=== PATIENT | female | born 1980 | race Caucasian/White ===

== ENCOUNTER 2020-02-09 20:27 | Inpatient (IN) | payer OTHER, MEDICAID, SELFPAY ==
[2020-02-09 21:07] VITALS: BMI 32.8
[2020-02-09] MEDS: LORazepam 1 MG TABLET PO (21:42)
[2020-02-10] VITALS (8 sets, daily range): BP systolic 101–114; BP diastolic 58–73; PULSE 66–107; RESP 17–18; TEMP 36–36.5; O2SAT 97; BMI 34.5
[2020-02-10] MEDS: lamoTRIgine 25 MG TABLET PO ×4 (00:23→22:35)
[2020-02-10] MEDS: lamoTRIgine 100 MG TABLET PO ×4 (00:23→22:33)
[2020-02-10] MEDS: Doxepin HCl 25 MG CAPSULE 50 MG PO ×2 (00:23→22:35)
[2020-02-10] MEDS: traZODone HCL 100 MG TABLET PO ×2 (00:24→22:34)
[2020-02-10] MEDS: Gabapentin 600 MG TABLET PO ×5 (00:24→22:33)
[2020-02-10] MEDS: Prazosin HCL 5 MG CAPSULE PO ×2 (00:25→22:36)
[2020-02-10] MEDS: ARIPiprazole 5 MG TABLET 10 MG PO ×2 (00:27→22:34)
[2020-02-10] MEDS: traMADoL HCL 50 MG TABLET PO ×3 (00:31→19:49)
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
--- NOTE | 2020-02-10 02:52 | PC.NURSE ---
patient is pleasant, calmer and cooperative on admission, remain on 5 min checks for safety.
[2020-02-10] MEDS: Sertraline HCL 100 MG TABLET 200 MG PO (08:34)
[2020-02-10] MEDS: LORazepam 1 MG TABLET PO ×5 (08:35→22:35)
[2020-02-10] MEDS: Milk of Magnesia 30 ML ORAL.SUSP PO (11:37)
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
--- NOTE | 2020-02-11 | US_ITS ---
EXAMINATION: US ABDOMEN LIMITED CLINICAL INFORMATION: Abdominal pain. COMPARISON: None TECHNIQUE: Real-time imaging of the right upper quadrant abdominal viscera. Exam is limited FINDINGS: PANCREAS: The pancreas could not be seen as it was obscured by bowel gas. LIVER: The liver demonstrates increased echogenicity consistent with hepatic steatosis and is probably mildly enlarged. Contour is normal. No focal lesion or intrahepatic biliary duct dilatation. GALLBLADDER: The gallbladder is physiologically distended without evidence of stones, sludge, polyps, wall thickening or pericholecystic fluid. COMMON BILE DUCT: Normal in caliber measuring 0.3 cm in diameter. RIGHT KIDNEY: No hydronephrosis. No renal calculi or focal parenchymal lesions. The kidney measures 10.0 cm in maximum dimension. FREE FLUID: None. IMPRESSION: Hepatic steatosis
[2020-02-11 06:20] VITALS: BP 96/65; PULSE 110; RESP 18; TEMP 36.2; O2SAT 98
[2020-02-11] MEDS: traMADoL HCL 50 MG TABLET PO ×2 (06:55→15:13)
[2020-02-11 08:26] LABS: MANUAL DIFF FLAG NO
[2020-02-11 08:36] LABS: Basophils Absolute Auto 0.1 X10*3/uL (0.0-0.2); Basophils Percent Auto 0.9 % (0-2); Eosinophils Absolute Auto 0.3 X10*3/uL (0.0-0.4); Eosinophils Percent Auto 4.9 % (0-4); Hematocrit 39.3 % (37-47); Hemoglobin 12.7 g/dl (12.0-16.0); Imm Gran Abs Auto 0.05 X10*3/uL (0.00-0.03); Imm Gran Pct Auto 0.9 % (0.0-0.4); Lymphocytes Absolute Auto 2.1 X10*3/uL (1.2-4.9); Lymphocytes Percent Auto 36.5 % (20-40); Mean Corpuscular HGB Conc 32.3 g/dl (31.0-35.0); Mean Corpuscular Volume 92.7 fL (80-98); Mean Platelet Volume 9.4 fL (9.4-12.3); Monocytes Absolute Auto 0.8 X10*3/uL (0.1-1.2); Monocytes Percent Auto 12.9 % (2-11); Neutrophils Absolute Auto 2.6 X10*3/uL (2.0-8.3); Neutrophils Percent Auto 43.9 % (45-73); Platelet Count 185 X10*3/uL (160-400); Red Blood Count 4.24 X10*6/uL (4.20-5.50); Red Cell Distribution Width 13.3 % (11.0-16.0); White Blood Count 5.9 X10*3/uL (4.8-10.8)
[2020-02-11] MEDS: Gabapentin 600 MG TABLET PO ×4 (09:00→21:12)
[2020-02-11] MEDS: Sertraline HCL 100 MG TABLET PO (09:01)
[2020-02-11] MEDS: LORazepam 1 MG TABLET PO ×3 (09:01→21:11)
[2020-02-11] MEDS: DULoxetine HCl 20 MG CAPSULE.DR PO (09:01)
[2020-02-11] MEDS: lamoTRIgine 100 MG TABLET PO ×2 (09:02→21:12)
[2020-02-11 09:07] LABS: Alanine Aminotransferase 58 U/L (0-31); Albumin Level 4.2 g/dL (3.5-5.0); Alkaline Phosphatase 52 U/L (39-117); Anion Gap 14 (12-20); Aspartate Amino Transferase 67 U/L (5-31); Bilirubin Total 0.6 mg/dL (0.0-1.0); Blood Urea Nitrogen 15 mg/dL (9-16); Calcium 9.2 mg/dL (8.4-10.2); Carbon Dioxide 29 mmol/L (22-29); Chloride 100 mmol/L (96-108); Cholesterol 265 mg/dL; Creatinine Clr Calc Pharmacy 76.4; Estimated Glomerular Filt Rate 57; Glucose Fasting 105 mg/dL (60-99); HDL Cholesterol 56 mg/dL; LDL Cholesterol Calculated 155 mg/dl; Potassium 4.5 mmol/l (3.3-5.1); Sodium 138 mmol/L (135-145); Total Protein 6.9 g/dL (6.5-8.0); Triglycerides 270 mg/dL
--- NOTE | 2020-02-11 09:34 | HO.PSYCHPN ---
Assessment & Plan Greater than 50% of the session was spent on counseling and/or coordination of care continue transition to Cymbalta. Encourage group activity min physical activity and socialization. cabinet worker to coordinate care with outside providers Patient educated on: diagnosis Informed Consent: understands Subjective Subjective Date of Service: 02/11/20 Reason For Visit: UNSPECIFIED BIPOLAR DISORDER Subjective Notes: Conditional Voluntary Interim History: patient spending a lot of time in bed complains of back pain. Patient is isolating and appears depressed. Feels safe on the unit. We discussed medication changes and transition to a different medication which he is excited about as it will help with pain namely Cymbalta. Patient reluctant to consider residential treatment program but encouraged to attend AA in reconnect with her preparer samples and repairs Medication Compliance: Yes Side effects from medications: No Attending Groups: Yes Mental Status Exam Mental Status Exam Patient Appearance: Well Grooomed Patient Orientation: Person, Place, Time and Situation Level of Consciousness: Awake Patient Behavior: Appropriate and Good Eye Contact Mood Description: Depressed and Sad Affect Description: Calm, Depressed and Sad Patient Cognition Impaired: No Ability to Follow Directions: Excellent Speech Pattern: Clear, Monotone and Whisper Memory Description: Intact Hallucinations: None Delusions: Not Present Thought Process: Intact Thought Content: positive for Intact Depressive Symptoms: Increased Anxiety, Crying Spells, Feelings of Worthlessness, Hopelessness, Thoughts of /Suicide ( denies/ feels safe on the unit), Low Self Esteem and Loss of Energy Judgement: Fair Diagnostics Vital Signs (24Hr): Vital Signs - 24 hr 02/10/20 12:00 02/10/20 16:00 02/10/20 21:40 Temperature 97.7 F Pulse Rate 92 83 66 Respiratory Rate 17 Blood Pressure 110/72 114/70 110/58 L Pulse Oximetry 02/10/20 22:36 02/11/20 06:20 Temperature 97.1 F Pulse Rate 66 110 H Respiratory Rate 18 Blood Pressure 110/58 L 96/65 Pulse Oximetry 98 Body Mass Index 34.5 Labs Results: 02/11/20 08:00 02/11/20 08:00 Labs: Laboratory Results - last 48 hr 02/11/20 02/11/20 08:00 08:00 WBC 5.9 RBC 4.24 Hgb 12.7 Hct 39.3 MCV 92.7 MCH 30.0 MCHC 32.3 RDW 13.3 Plt Count 185 MPV 9.4 Immature Gran % (Auto) 0.9 H Neut % (Auto) 43.9 L Lymph % (Auto) 36.5 [place] % (Auto) 12.9 H Eos % (Auto) 4.9 H Baso % (Auto) 0.9 Neut # (Auto) 2.6 Lymph # (Auto) 2.1 [place] # (Auto) 0.8 Eos # (Auto) 0.3 Baso # (Auto) 0.1 Abs Immat Gran (auto) 0.05 H Absolute Nucleated RBC 0.000 Nucleated RBC % (auto) 0.0 Sodium 138 Potassium 4.5 Chloride 100 Carbon Dioxide 29 Anion Gap 14 BUN 15 Creatinine 1.06 Estim Creat Clear Calc 76.4 Estimated GFR 57 Fasting Glucose 105 H Calcium 9.2 Total Bilirubin 0.6 AST 67 H ALT 58 H Alkaline Phosphatase 52 Total Protein 6.9 Albumin 4.2 Triglycerides 270 Cholesterol 265 LDL Cholesterol, Calc 155 HDL Cholesterol 56 Medications Medications Current Medications Generic Name Dose Route Start Last Admin Trade Name Freq PRN Reason Stop Dose Admin Al Hydroxide/Mg Hydroxide 30 ml 02/09/20 21:11 Magnesium Hydrox/Alum Hydrox 30 Ml Oral.Susp PO Q6H PRN Heartburn/Nausea Aripiprazole 10 mg 02/09/20 21:00 02/10/20 22:34 Aripiprazole 5 Mg Tablet PO 10 mg BEDTIME ELIZABETH Administration Doxepin HCl 50 mg 02/09/20 21:00 02/10/20 22:35 Doxepin Hcl 25 Mg Capsule PO 50 mg BEDTIME ELIZABETH Administration Duloxetine HCl 20 mg 02/11/20 09:00 02/11/20 09:01 Duloxetine Hcl 20 Mg Capsule.Dr PO 20 mg DAILY ELIZABETH Administration Gabapentin 600 mg 02/09/20 09:00 02/11/20 09:00 Gabapentin 600 Mg Tablet PO 600 mg QID ELIZABETH Administration Hydroxyzine HCl 25 mg 02/09/20 21:11 Hydroxyzine Hcl 25 Mg Tablet PO BEDTIME PRN Anxiety Lamotrigine 25 mg 02/10/20 09:00 02/10/20 22:35 Lamotrigine 25 Mg Tablet PO 25 mg BID ELIZABETH Administration Lamotrigine 100 mg 02/10/20 21:00 02/11/20 09:02 Lamotrigine 100 Mg Tablet PO 100 mg BID ELIZABETH Administration Lorazepam 1 mg 02/09/20 21:30 02/11/20 09:01 Lorazepam 1 Mg Tablet PO 1 mg TID ELIZABETH Administration Lorazepam 1 mg 02/09/20 22:57 02/10/20 17:11 Lorazepam 1 Mg Tablet PO 1 mg Q4H PRN Administration Alcohol Withdrawal Magnesium Hydroxide 30 ml 02/09/20 21:11 02/10/20 11:37 Milk Of Magnesia 30 Ml Oral.Susp PO 30 ml DAILY PRN Administration Constipation Nicotine Polacrilex 2 mg 02/09/20 23:18 Nicotine Polacrilex 2 Mg Lozenge BUCCAL Q1H PRN Nicotine Cravings Nf Med (Creon 12,000 0 units 02/10/20 16:30 02/11/20 08:59 Capsule) PO 2 units TIDAC ELIZABETH Administration Prazosin HCl 5 mg 02/09/20 23:15 02/10/20 22:36 Prazosin Hcl 5 Mg Capsule PO 5 mg BEDTIME ELIZABETH Administration Protocol Sertraline HCl 100 mg 02/11/20 09:00 02/11/20 09:01 Sertraline Hcl 100 Mg Tablet PO 100 mg DAILY ELIZABETH Administration Tramadol HCl 50 mg 02/10/20 00:15 02/11/20 06:55 Tramadol Hcl 50 Mg Tablet PO 50 mg Q8H PRN Administration Pain, Severe (Pain Scale 7-10) Trazodone HCl 100 mg 02/09/20 21:00 02/10/20 22:34 Trazodone Hcl 100 Mg Tablet PO 100 mg BEDTIME ELIZABETH Administration Allergies Allergies Allergy/AdvReac Type Severity Reaction Status Date / Time acetaminophen Allergy Rash Verified 02/09/20 21:06 bees Allergy Severe Anaphylaxis Uncoded 02/09/20 21:06
[2020-02-11] MEDS: lamoTRIgine 25 MG TABLET PO ×2 (09:56→21:11)
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
[2020-02-11] MEDS: Lidocaine 4 % Patch ADH..PATCH 2 PATCH TRANSDERMA (12:10)
[2020-02-11 12:33] LABS: UPreg QC Valid YES; Urine Pregnancy NEGATIVE (NEGATIVE)
[2020-02-11 15:16] VITALS: BP 111/64; PULSE 94
[2020-02-11 16:00] VITALS: BP 118/70; PULSE 87; TEMP 36.5
[2020-02-11 20:00] VITALS: BP 111/58; PULSE 83; TEMP 36.7
[2020-02-11] MEDS: traZODone HCL 100 MG TABLET PO (21:11)
[2020-02-11] MEDS: Doxepin HCl 25 MG CAPSULE 50 MG PO (21:11)
[2020-02-11] MEDS: ARIPiprazole 5 MG TABLET 10 MG PO (21:11)
[2020-02-11 21:18] VITALS: BP 118/70; PULSE 87
[2020-02-11] MEDS: Prazosin HCL 5 MG CAPSULE PO (21:18)
[2020-02-12] VITALS: BP 114/66; PULSE 91; RESP 16; TEMP 36.1
[2020-02-12] MEDS: LORazepam 1 MG TABLET PO ×4 (02:10→18:10)
[2020-02-12] MEDS: traMADoL HCL 50 MG TABLET PO ×2 (02:10→17:06)
[2020-02-12] MEDS: hydrOXYzine HCL 25 MG TABLET PO (02:10)
[2020-02-12 05:40] VITALS: BP 100/63; PULSE 105; RESP 18; TEMP 36.3; O2SAT 99
[2020-02-12] MEDS: Gabapentin 600 MG TABLET PO ×2 (08:37→12:15)
[2020-02-12] MEDS: lamoTRIgine 100 MG TABLET PO (08:37)
[2020-02-12] MEDS: Sertraline HCL 100 MG TABLET PO (08:37)
[2020-02-12] MEDS: DULoxetine HCl 20 MG CAPSULE.DR PO (08:37)
[2020-02-12] MEDS: lamoTRIgine 25 MG TABLET PO (08:37)
--- NOTE | 2020-02-12 09:31 | P.PNPSI_ITS ---
Assessment & Plan Greater than 50% of the session was spent on counseling and/or coordination of care check pancreatic and liver profile continue medication changes and transition to Cyalta patient encouraged to consider IOP or partial hospitalization program at [facility] Patient educated on: diagnosis Informed Consent: understands Subjective Subjective Date of Service: 02/12/20 Reason For Visit: UNSPECIFIED BIPOLAR DISORDER Subjective Notes: Conditional Voluntary Interim History: Remains significantly depressed states that she has intrusive thoughts of hanging herself like her father but feels safe on the unit patient attending group remains anxious complaining of pain. States she bottles up her thoughts and sometimes has pseudo hallucinations. We discussed simplifying polypharmacy. Patient has mild epigastric discomfort. Will check LFTs and lipase amylase Medication Compliance: Yes Side effects from medications: No Attending Groups: Yes Mental Status Exam Mental Status Exam Patient Appearance: Well Grooomed Patient Orientation: Person, Place, Time and Situation Level of Consciousness: Awake Patient Behavior: Appropriate Mood Description: Calm, Depressed and Sad Affect Description: Calm, Depressed and Sad Patient Cognition Impaired: No Ability to Follow Directions: Excellent Speech Pattern: Clear Memory Description: Intact Hallucinations: Auditory ( pseudo hallucinations noted) Delusions: Not Present Thought Process: Distracted and Slowed Thinking Thought Content: positive for Poverty of Content and positive for Preoccupation Depressive Symptoms: Feelings of Worthlessness, Hopelessness, Unhappiness, Thoughts of /Suicide and Difficulty Concentrating Judgement: Fair Diagnostics Vital Signs (24Hr): Vital Signs - 24 hr 02/11/20 15:16 02/11/20 16:00 02/11/20 20:00 Temperature 97.7 F 98.1 F Pulse Rate 94 87 83 Respiratory Rate Blood Pressure 111/64 118/70 111/58 L Pulse Oximetry 02/11/20 21:18 02/12/20 00:00 02/12/20 05:40 Temperature 96.9 F 97.4 F Pulse Rate 87 91 105 H Respiratory Rate 16 18 Blood Pressure 118/70 114/66 100/63 Pulse Oximetry 99 Body Mass Index 34.5 Labs Results: 02/11/20 08:00 02/11/20 08:00 Labs: Laboratory Results - last 48 hr 02/11/20 02/11/20 02/11/20 08:00 08:00 12:01 WBC 5.9 RBC 4.24 Hgb 12.7 Hct 39.3 MCV 92.7 MCH 30.0 MCHC 32.3 RDW 13.3 Plt Count 185 MPV 9.4 Immature Gran % (Auto) 0.9 H Neut % (Auto) 43.9 L Lymph % (Auto) 36.5 [place] % (Auto) 12.9 H Eos % (Auto) 4.9 H Baso % (Auto) 0.9 Neut # (Auto) 2.6 Lymph # (Auto) 2.1 [place] # (Auto) 0.8 Eos # (Auto) 0.3 Baso # (Auto) 0.1 Abs Immat Gran (auto) 0.05 H Absolute Nucleated RBC 0.000 Nucleated RBC % (auto) 0.0 Sodium 138 Potassium 4.5 Chloride 100 Carbon Dioxide 29 Anion Gap 14 BUN 15 Creatinine 1.06 Estim Creat Clear Calc 76.4 Estimated GFR 57 Fasting Glucose 105 H Calcium 9.2 Total Bilirubin 0.6 AST 67 H ALT 58 H Alkaline Phosphatase 52 Total Protein 6.9 Albumin 4.2 Triglycerides 270 Cholesterol 265 LDL Cholesterol, Calc 155 HDL Cholesterol 56 Urine Test NEGATIVE Medications Medications Current Medications Generic Name Dose Route Start Last Admin Trade Name Freq PRN Reason Stop Dose Admin Al Hydroxide/Mg Hydroxide 30 ml 02/09/20 21:11 Magnesium Hydrox/Alum Hydrox 30 Ml Oral.Susp PO Q6H PRN Heartburn/Nausea Aripiprazole 10 mg 02/09/20 21:00 02/11/20 21:11 Aripiprazole 5 Mg Tablet PO 10 mg BEDTIME ELIZABETH Administration Doxepin HCl 50 mg 02/09/20 21:00 02/11/20 21:11 Doxepin Hcl 25 Mg Capsule PO 50 mg BEDTIME ELIZABETH Administration Duloxetine HCl 20 mg 02/11/20 09:00 02/12/20 08:37 Duloxetine Hcl 20 Mg Capsule.Dr PO 20 mg DAILY ELIZABETH Administration Gabapentin 600 mg 02/09/20 09:00 02/12/20 08:37 Gabapentin 600 Mg Tablet PO 600 mg QID ELIZABETH Administration Hydroxyzine HCl 25 mg 02/09/20 21:11 02/12/20 02:10 Hydroxyzine Hcl 25 Mg Tablet PO 25 mg BEDTIME PRN Administration Anxiety Lamotrigine 25 mg 02/10/20 09:00 02/12/20 08:37 Lamotrigine 25 Mg Tablet PO 25 mg BID ELIZABETH Administration Lamotrigine 100 mg 02/10/20 21:00 02/12/20 08:37 Lamotrigine 100 Mg Tablet PO 100 mg BID ELIZABETH Administration Lidocaine 2 patch 02/11/20 11:15 02/11/20 12:10 Lidocaine 4 % Patch Adh..Patch TRANSDERMA 2 patch DAILY ELIZABETH Administration Protocol Lorazepam 1 mg 02/09/20 21:30 02/12/20 08:36 Lorazepam 1 Mg Tablet PO 1 mg TID ELIZABETH Administration Lorazepam 1 mg 02/09/20 22:57 02/12/20 02:10 Lorazepam 1 Mg Tablet PO 1 mg Q4H PRN Administration Alcohol Withdrawal Magnesium Hydroxide 30 ml 02/09/20 21:11 02/10/20 11:37 Milk Of Magnesia 30 Ml Oral.Susp PO 30 ml DAILY PRN Administration Constipation Nicotine Polacrilex 2 mg 02/09/20 23:18 Nicotine Polacrilex 2 Mg Lozenge BUCCAL Q1H PRN Nicotine Cravings Nf Med (Creon 12,000 0 units 02/10/20 16:30 02/12/20 08:36 Capsule) PO 2 units TIDAC ELIZABETH Administration Pt Own Pantoprazole 0 each 02/12/20 09:00 02/12/20 08:38 40 Mg PO 1 each DAILY ELIZAEBTH Administration Prazosin HCl 5 mg 02/09/20 23:15 02/11/20 21:18 Prazosin Hcl 5 Mg Capsule PO 5 mg BEDTIME ELIZABETH Administration Protocol Sertraline HCl 100 mg 02/11/20 09:00 02/12/20 08:37 Sertraline Hcl 100 Mg Tablet PO 100 mg DAILY [facility]ETH Administration Tramadol HCl 50 mg 02/10/20 00:15 02/12/20 02:10 Tramadol Hcl 50 Mg Tablet PO 50 mg Q8H PRN Administration Pain, Severe (Pain Scale 7-10) Trazodone HCl 100 mg 02/09/20 21:00 02/11/20 21:11 Trazodone Hcl 100 Mg Tablet PO 100 mg BEDTIME EL[facility]ETH Administration Allergies Allergies Allergy/AdvReac Type Severity Reaction Status Date / Time acetaminophen Allergy Rash Verified 02/09/20 21:06 bees Allergy Severe Anaphylaxis Uncoded 02/09/20 21:06
[2020-02-12] MEDS: Lidocaine 4 % Patch ADH..PATCH 2 PATCH TRANSDERMA (10:00)
[2020-02-12 12:00] VITALS: BP 117/71; PULSE 84; RESP 16; TEMP 36.6
[2020-02-12 12:20] LABS: Alanine Aminotransferase 66 U/L (0-31); Albumin Level 4.2 g/dL (3.5-5.0); Alkaline Phosphatase 47 U/L (39-117); Amylase 15 U/L (28-100); Aspartate Amino Transferase 76 U/L (5-31); Bilirubin Direct 0.2 mg/dL (0.0-0.5); Bilirubin Total 0.4 mg/dL (0.0-1.0); Lipase 5 U/L (8-78); Total Protein 6.7 g/dL (6.5-8.0)
[2020-02-12] MEDS: Gabapentin 400 MG CAPSULE 800 MG PO (18:19)
[2020-02-12 18:20] VITALS: BP 106/75; PULSE 93; TEMP 36.7
[2020-02-12] MEDS: lamoTRIgine 100 MG TABLET 150 MG PO (20:16)
[2020-02-12] MEDS: traZODone HCL 100 MG TABLET PO (20:17)
[2020-02-12] MEDS: ARIPiprazole 5 MG TABLET 10 MG PO (20:17)
[2020-02-12] MEDS: Doxepin HCl 25 MG CAPSULE 50 MG PO (20:18)
[2020-02-12 20:19] VITALS: BP 113/61; PULSE 83
[2020-02-12] MEDS: Prazosin HCL 5 MG CAPSULE PO (20:19)
[2020-02-12] MEDS: Flu Vacc QS2020-21(6mos up)/PF 0.5 ML SYRINGE IM (20:20)
[2020-02-13 05:00] VITALS: BP 112/61; PULSE 115; RESP 18; TEMP 36.1; O2SAT 97
[2020-02-13] MEDS: LORazepam 1 MG TABLET PO ×5 (05:09→22:02)
[2020-02-13 07:00] VITALS: BMI 35.2
--- NOTE | 2020-02-13 07:11 | P.PNPSI_ITS ---
Subjective Subjective Reason For Visit: UNSPECIFIED BIPOLAR DISORDER Diagnostics Vital Signs (24Hr): Vital Signs - 24 hr 02/12/20 12:00 02/12/20 18:20 02/12/20 20:19 Temperature 97.8 F 98.0 F Pulse Rate 84 93 83 Respiratory Rate 16 Blood Pressure 117/71 106/75 113/61 Body Mass Index 34.5 Labs Results: 02/11/20 08:00 02/11/20 08:00 Labs: Laboratory Results - last 48 hr 02/11/20 02/11/20 02/11/20 08:00 08:00 12:01 WBC 5.9 RBC 4.24 Hgb 12.7 Hct 39.3 MCV 92.7 MCH 30.0 MCHC 32.3 RDW 13.3 Plt Count 185 MPV 9.4 Immature Gran % (Auto) 0.9 H Neut % (Auto) 43.9 L Lymph % (Auto) 36.5 [place] % (Auto) 12.9 H Eos % (Auto) 4.9 H Baso % (Auto) 0.9 Neut # (Auto) 2.6 Lymph # (Auto) 2.1 [place] # (Auto) 0.8 Eos # (Auto) 0.3 Baso # (Auto) 0.1 Abs Immat Gran (auto) 0.05 H Absolute Nucleated RBC 0.000 Nucleated RBC % (auto) 0.0 Sodium 138 Potassium 4.5 Chloride 100 Carbon Dioxide 29 Anion Gap 14 BUN 15 Creatinine 1.06 Estim Creat Clear Calc 76.4 Estimated GFR 57 Fasting Glucose 105 H Calcium 9.2 Total Bilirubin 0.6 Direct Bilirubin AST 67 H ALT 58 H Alkaline Phosphatase 52 Total Protein 6.9 Albumin 4.2 Triglycerides 270 Cholesterol 265 LDL Cholesterol, Calc 155 HDL Cholesterol 56 Amylase Lipase Urine Test NEGATIVE 02/12/20 11:21 WBC RBC Hgb Hct MCV MCH MCHC RDW Plt Count MPV Immature Gran % (Auto) Neut % (Auto) Lymph % (Auto) [place] % (Auto) Eos % (Auto) Baso % (Auto) Neut # (Auto) Lymph # (Auto) [place] # (Auto) Eos # (Auto) Baso # (Auto) Abs Immat Gran (auto) Absolute Nucleated RBC Nucleated RBC % (auto) Sodium Potassium Chloride Carbon Dioxide Anion Gap BUN Creatinine Estim Creat Clear Calc Estimated GFR Fasting Glucose Calcium Total Bilirubin 0.4 Direct Bilirubin 0.2 AST 76 H ALT 66 H Alkaline Phosphatase 47 Total Protein 6.7 Albumin 4.2 Triglycerides Cholesterol LDL Cholesterol, Calc HDL Cholesterol Amylase 15 L Lipase 5 L Urine Test Medications Medications Current Medications Generic Name Dose Route Start Last Admin Trade Name Freq PRN Reason Stop Dose Admin Al Hydroxide/Mg Hydroxide 30 ml 02/09/20 21:11 Magnesium Hydrox/Alum Hydrox 30 Ml Oral.Susp PO Q6H PRN Heartburn/Nausea Aripiprazole 10 mg 02/09/20 21:00 02/12/20 20:17 Aripiprazole 5 Mg Tablet PO 10 mg BEDTIME ELIZABETH Administration Doxepin HCl 50 mg 02/09/20 21:00 02/12/20 20:18 Doxepin Hcl 25 Mg Capsule PO 50 mg BEDTIME ELIZABETH Administration Duloxetine HCl 20 mg 02/11/20 09:00 02/12/20 08:37 Duloxetine Hcl 20 Mg Capsule.Dr PO 20 mg DAILY ELIZABETH Administration Gabapentin 800 mg 02/12/20 21:00 02/12/20 23:16 Gabapentin 400 Mg Capsule PO Not Given TID ELIZABETH Hydroxyzine HCl 25 mg 02/09/20 21:11 02/12/20 02:10 Hydroxyzine Hcl 25 Mg Tablet PO 25 mg BEDTIME PRN Administration Anxiety Lamotrigine 150 mg 02/12/20 21:00 02/12/20 20:16 Lamotrigine 100 Mg Tablet PO 150 mg BID ELIZABETH Administration Lidocaine 2 patch 02/11/20 11:15 02/12/20 10:00 Lidocaine 4 % Patch Adh..Patch TRANSDERMA 2 patch DAILY ELIZABETH Administration Protocol Lorazepam 1 mg 02/09/20 22:57 02/13/20 05:09 Lorazepam 1 Mg Tablet PO 1 mg Q4H PRN Administration Alcohol Withdrawal Lorazepam 1 mg 02/12/20 21:00 02/12/20 23:18 Lorazepam 1 Mg Tablet PO Not Given TID ELIZABETH Magnesium Hydroxide 30 ml 02/09/20 21:11 02/10/20 11:37 Milk Of Magnesia 30 Ml Oral.Susp PO 30 ml DAILY PRN Administration Constipation Nicotine Polacrilex 2 mg 02/09/20 23:18 Nicotine Polacrilex 2 Mg Lozenge BUCCAL Q1H PRN Nicotine Cravings Pt Own Pantoprazole 0 each 02/12/20 09:00 02/12/20 08:38 40 Mg PO 1 each DAILY ELIZABETH Administration Non-Formulary Medication 12,000 unit 02/13/20 08:00 Creon PO BID@0800,1700 ELIZABETH Prazosin HCl 5 mg 02/09/20 23:15 02/12/20 20:19 Prazosin Hcl 5 Mg Capsule PO 5 mg BEDTIME ELIZABETH Administration Protocol Sertraline HCl 100 mg 02/11/20 09:00 02/12/20 08:37 Sertraline Hcl 100 Mg Tablet PO 100 mg DAILY EL[facility]ABETH Administration Tramadol HCl 50 mg 02/12/20 16:36 02/12/20 17:06 Tramadol Hcl 50 Mg Tablet PO 50 mg TID PRN Administration Pain, Severe (Pain Scale 7-10) Trazodone HCl 100 mg 02/09/20 21:00 02/12/20 20:17 Trazodone Hcl 100 Mg Tablet PO 100 mg BEDTIME ELIZABETH Administration Allergies Allergies Allergy/AdvReac Type Severity Reaction Status Date / Time acetaminophen Allergy Rash Verified 02/09/20 21:06 bees Allergy Severe Anaphylaxis Uncoded 02/09/20 21:06 Assessment & Plan Greater than 50% of the session was spent on counseling and/or coordination of care
[2020-02-13] MEDS: Gabapentin 400 MG CAPSULE 800 MG PO ×2 (08:50→16:36)
[2020-02-13] MEDS: Sertraline HCL 100 MG TABLET PO (08:51)
[2020-02-13] MEDS: traMADoL HCL 50 MG TABLET PO ×3 (09:51→22:05)
[2020-02-13] MEDS: Lidocaine 4 % Patch ADH..PATCH 2 PATCH TRANSDERMA (09:56)
[2020-02-13] MEDS: lamoTRIgine 100 MG TABLET 150 MG PO ×2 (09:56→20:41)
[2020-02-13] MEDS: DULoxetine HCl 20 MG CAPSULE.DR PO (09:56)
[2020-02-13 13:42] VITALS: BP 103/60; PULSE 64; RESP 16; TEMP 37; O2SAT 97
[2020-02-13 14:07] VITALS: BP 157/87; PULSE 91; RESP 16
[2020-02-13 16:59] VITALS: BP 117/74; PULSE 91; TEMP 36.6
--- NOTE | 2020-02-13 17:19 | HO.PSYCHPN ---
Subjective Subjective Reason For Visit: UNSPECIFIED BIPOLAR DISORDER Interim History: Remains significantly depressed states that she has intrusive thoughts of hanging herself like her father but feels safe on the unit patient attending group remains anxious. Attending group. Continues with epigastic pain. Fatty liver noted on US. Counseled re ETOH use. Keen on AA. Encouraged to consider IOP We discussed simplifying polypharmacy. Mental Status Exam Mental Status Exam Patient Appearance: Well Grooomed Patient Orientation: Person, Place, Time and Situation Level of Consciousness: Awake Patient Behavior: Appropriate Mood Description: Calm, Depressed and Sad Affect Description: Calm, Depressed and Sad Patient Cognition Impaired: No Ability to Follow Directions: Excellent Speech Pattern: Clear Memory Description: Intact Diagnostics Vital Signs (24Hr): Vital Signs - 24 hr 02/12/20 18:20 02/12/20 20:19 02/13/20 05:00 Temperature 98.0 F 96.9 F Pulse Rate 93 83 115 H Respiratory Rate 18 Blood Pressure 106/75 113/61 112/61 Pulse Oximetry 97 02/13/20 13:42 02/13/20 14:07 02/13/20 16:59 Temperature 98.6 F 97.8 F Pulse Rate 64 91 91 Respiratory Rate 16 16 Blood Pressure 103/60 157/87 H 117/74 Pulse Oximetry 97 Body Mass Index 35.2 Labs Results: 02/11/20 08:00 02/11/20 08:00 Labs: Laboratory Results - last 48 hr 02/12/20 11:21 Total Bilirubin 0.4 Direct Bilirubin 0.2 AST 76 H ALT 66 H Alkaline Phosphatase 47 Total Protein 6.7 Albumin 4.2 Amylase 15 L Lipase 5 L Medications Medications Current Medications Generic Name Dose Route Start Last Admin Trade Name Freq PRN Reason Stop Dose Admin Al Hydroxide/Mg Hydroxide 30 ml 02/09/20 21:11 Magnesium Hydrox/Alum Hydrox 30 Ml Oral.Susp PO Q6H PRN Heartburn/Nausea Aripiprazole 10 mg 02/09/20 21:00 02/12/20 20:17 Aripiprazole 5 Mg Tablet PO 10 mg BEDTIME ELIZABETH Administration Doxepin HCl 50 mg 02/09/20 21:00 02/12/20 20:18 Doxepin Hcl 25 Mg Capsule PO 50 mg BEDTIME ELIZABETH Administration Duloxetine HCl 20 mg 02/11/20 09:00 02/13/20 09:56 Duloxetine Hcl 20 Mg Capsule.Dr PO 20 mg DAILY [facility]ABETH Administration Gabapentin 800 mg 02/13/20 16:30 02/13/20 16:36 Gabapentin 400 Mg Capsule PO 800 mg TIDAC ELIZABETH Administration Hydroxyzine HCl 25 mg 02/09/20 21:11 02/12/20 02:10 Hydroxyzine Hcl 25 Mg Tablet PO 25 mg BEDTIME PRN Administration Anxiety Lamotrigine 150 mg 02/12/20 21:00 02/13/20 09:56 Lamotrigine 100 Mg Tablet PO 150 mg BID EL[facility]ABETH Administration Lidocaine 2 patch 02/11/20 11:15 02/13/20 09:56 Lidocaine 4 % Patch Adh..Patch TRANSDERMA 2 patch DAILY ELIZABETH Administration Protocol Lorazepam 1 mg 02/09/20 22:57 02/13/20 12:33 Lorazepam 1 Mg Tablet PO 1 mg Q4H PRN Administration Alcohol Withdrawal Lorazepam 1 mg 02/13/20 16:30 02/13/20 16:36 Lorazepam 1 Mg Tablet PO 1 mg TIDAC ELIZABETH Administration Magnesium Hydroxide 30 ml 02/09/20 21:11 02/10/20 11:37 Milk Of Magnesia 30 Ml Oral.Susp PO 30 ml DAILY PRN Administration Constipation Nicotine Polacrilex 2 mg 02/09/20 23:18 Nicotine Polacrilex 2 Mg Lozenge BUCCAL Q1H PRN Nicotine Cravings Pt Own Pantoprazole 0 each 02/12/20 09:00 02/13/20 08:55 40 Mg PO 1 each DAILY ELIZABETH Administration Pt Own (Creon 12,000 2 each 02/13/20 16:30 02/13/20 16:36 Units) PO 2 each TIDAC ELIZABETH Administration Prazosin HCl 5 mg 02/09/20 23:15 02/12/20 20:19 Prazosin Hcl 5 Mg Capsule PO 5 mg BEDTIME ELIZABETH Administration Protocol Sertraline HCl 100 mg 02/11/20 09:00 02/13/20 08:51 Sertraline Hcl 100 Mg Tablet PO 100 mg DAILY ELIZABETH Administration Tramadol HCl 50 mg 02/13/20 16:30 02/13/20 16:36 Tramadol Hcl 50 Mg Tablet PO 50 mg TIDAC ELIZABETH Administration Trazodone HCl 100 mg 02/09/20 21:00 02/12/20 20:17 Trazodone Hcl 100 Mg Tablet PO 100 mg BEDTIME ELIZABETH Administration Allergies Allergies Allergy/AdvReac Type Severity Reaction Status Date / Time acetaminophen Allergy Rash Verified 02/09/20 21:06 bees Allergy Severe Anaphylaxis Uncoded 02/09/20 21:06 Assessment & Plan Assessment & Plan (1) Alcohol use disorder, severe, dependence: Status: Acute Code(s): F10.20 - Alcohol dependence, uncomplicated Assessment and Plan: monitor for signs of withdrawal. Continue gabapentin and lorazepam (2) PTSD (post-traumatic stress disorder): Status: Acute Code(s): F43.10 - Post-traumatic stress disorder, unspecified Assessment and Plan: continue praises in (3) Depression: Status: Acute Code(s): F32.9 - Major depressive disorder, single episode, unspecified Assessment and Plan: taper Zoloft ct Cymbalta as discussed with patient (4) Bipolar disorder: Status: Acute Code(s): F31.9 - Bipolar disorder, unspecified Assessment and Plan: continue mood stabilizers (5) Suicidal behavior: Status: Acute Code(s): R45.89 - Other symptoms and signs involving emotional state Assessment and Plan: support ventilation safety plan referral to outpatient treatment Greater than 50% of the session was spent on counseling and/or coordination of care
[2020-02-13] MEDS: traZODone HCL 100 MG TABLET PO (20:40)
[2020-02-13] MEDS: ARIPiprazole 5 MG TABLET 10 MG PO (20:40)
[2020-02-13 20:41] VITALS: BP 117/70; PULSE 86
[2020-02-13] MEDS: Doxepin HCl 25 MG CAPSULE 50 MG PO (20:41)
[2020-02-13] MEDS: Prazosin HCL 5 MG CAPSULE PO (20:41)
[2020-02-14 06:03] VITALS: BP 100/77; PULSE 107; RESP 18; TEMP 35.9; O2SAT 99
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
[2020-02-14] MEDS: DULoxetine HCl 20 MG CAPSULE.DR PO (08:22)
[2020-02-14] MEDS: Gabapentin 400 MG CAPSULE 800 MG PO ×3 (08:22→16:43)
[2020-02-14] MEDS: lamoTRIgine 100 MG TABLET 150 MG PO ×2 (08:23→20:14)
[2020-02-14] MEDS: Sertraline HCL 100 MG TABLET PO (08:23)
[2020-02-14] MEDS: LORazepam 1 MG TABLET PO ×4 (08:23→20:20)
[2020-02-14] MEDS: traMADoL HCL 50 MG TABLET PO ×3 (08:23→16:42)
[2020-02-14] MEDS: Lidocaine 4 % Patch ADH..PATCH 2 PATCH TRANSDERMA (08:26)
[2020-02-14] MEDS: Milk of Magnesia 30 ML ORAL.SUSP PO (13:42)
[2020-02-14 14:05] VITALS: BP 112/70; PULSE 93
[2020-02-14 16:53] VITALS: BP 124/80; PULSE 83; TEMP 36.3
[2020-02-14 19:11] VITALS: BP 110/55; PULSE 75; TEMP 36.4
[2020-02-14 20:12] VITALS: BP 110/55; PULSE 75
[2020-02-14] MEDS: Prazosin HCL 5 MG CAPSULE PO (20:12)
[2020-02-14] MEDS: ARIPiprazole 5 MG TABLET 10 MG PO (20:13)
[2020-02-14] MEDS: Doxepin HCl 25 MG CAPSULE 50 MG PO (20:14)
[2020-02-14] MEDS: traZODone HCL 100 MG TABLET PO (20:15)
[2020-02-15 06:33] VITALS: BP 105/66; PULSE 106; TEMP 36.5
[2020-02-15] MEDS: traMADoL HCL 50 MG TABLET PO ×3 (07:12→16:06)
[2020-02-15] MEDS: Gabapentin 400 MG CAPSULE 800 MG PO ×3 (07:13→16:06)
[2020-02-15] MEDS: LORazepam 1 MG TABLET PO ×3 (07:13→16:06)
[2020-02-15] MEDS: Sertraline HCL 100 MG TABLET PO (08:50)
[2020-02-15] MEDS: DULoxetine HCl 20 MG CAPSULE.DR PO (08:51)
[2020-02-15] MEDS: Lidocaine 4 % Patch ADH..PATCH 2 PATCH TRANSDERMA (08:51)
[2020-02-15] MEDS: lamoTRIgine 100 MG TABLET 150 MG PO ×2 (08:51→20:42)
[2020-02-15 13:17] VITALS: BP 105/66; PULSE 106
--- NOTE | 2020-02-15 19:38 | HO.PSYCHPN ---
Subjective Subjective Date of Service: 02/15/20 Reason For Visit: UNSPECIFIED BIPOLAR DISORDER Subjective Notes: Conditional Voluntary Interim History: Depressed but still improving. Denies cravings. Looking forward to [place] Medication Compliance: Yes Side effects from medications: No Attending Groups: Yes Review of Systems Acute medical concerns: No Medical Review of Systems: unchanged Mental Status Exam Mental Status Exam Patient Appearance: Well Grooomed Patient Orientation: Person, Place, Time and Situation Level of Consciousness: Awake Patient Behavior: Appropriate Mood Description: Calm, Depressed and Sad Affect Description: Calm, Depressed and Sad Patient Cognition Impaired: No Ability to Follow Directions: Excellent Speech Pattern: Clear Memory Description: Intact Hallucinations: None Delusions: Not Present Thought Process: Intact Thought Content: negative for Suicidal Ideation and negative for Homicidal Ideation Diagnostics Vital Signs (24Hr): Vital Signs - 24 hr 02/14/20 20:12 02/15/20 06:33 02/15/20 13:17 Temperature 97.7 F Pulse Rate 75 106 H 106 H Blood Pressure 110/55 L 105/66 105/66 Body Mass Index 35.2 Labs Results: 02/11/20 08:00 02/11/20 08:00 Medications Medications Current Medications Generic Name Dose Route Start Last Admin Trade Name Freq PRN Reason Stop Dose Admin Al Hydroxide/Mg Hydroxide 30 ml 02/09/20 21:11 Magnesium Hydrox/Alum Hydrox 30 Ml Oral.Susp PO Q6H PRN Heartburn/Nausea Aripiprazole 10 mg 02/09/20 21:00 02/14/20 20:13 Aripiprazole 5 Mg Tablet PO 10 mg BEDTIME [facility]IZABETH Administration Doxepin HCl 50 mg 02/09/20 21:00 02/14/20 20:14 Doxepin Hcl 25 Mg Capsule PO 50 mg BEDTIME ELIZABETH Administration Duloxetine HCl 20 mg 02/11/20 09:00 02/15/20 08:51 Duloxetine Hcl 20 Mg Capsule.Dr PO 20 mg DAILY [facility]IZABETH Administration Gabapentin 800 mg 02/13/20 16:30 02/15/20 16:06 Gabapentin 400 Mg Capsule PO 800 mg TIDAC ELIZABETH Administration Hydroxyzine HCl 25 mg 02/09/20 21:11 02/12/20 02:10 Hydroxyzine Hcl 25 Mg Tablet PO 25 mg BEDTIME PRN Administration Anxiety Lamotrigine 150 mg 02/12/20 21:00 02/15/20 08:51 Lamotrigine 100 Mg Tablet PO 150 mg BID ELIZABETH Administration Lidocaine 2 patch 02/11/20 11:15 02/15/20 08:51 Lidocaine 4 % Patch Adh..Patch TRANSDERMA 2 patch DAILY ELIZABETH Administration Protocol Lorazepam 1 mg 02/13/20 16:30 02/15/20 16:06 Lorazepam 1 Mg Tablet PO 1 mg TIDAC [facility]IZ[facility]ETH Administration Magnesium Hydroxide 30 ml 02/09/20 21:11 02/14/20 13:42 Milk Of Magnesia 30 Ml Oral.Susp PO 30 ml DAILY PRN Administration Constipation Nicotine Polacrilex 2 mg 02/09/20 23:18 Nicotine Polacrilex 2 Mg Lozenge BUCCAL Q1H PRN Nicotine Cravings Pt Own Pantoprazole 0 each 02/12/20 09:00 02/15/20 08:50 40 Mg PO 1 each DAILY [facility]ETH Administration Pt Own (Creon 12,000 2 each 02/13/20 16:30 02/15/20 16:08 Units) PO 2 each TIDAC [facility]IZABETH Administration Prazosin HCl 5 mg 02/09/20 23:15 02/14/20 20:12 Prazosin Hcl 5 Mg Capsule PO 5 mg BEDTIME [facility]ETH Administration Protocol Sertraline HCl 100 mg 02/11/20 09:00 02/15/20 08:50 Sertraline Hcl 100 Mg Tablet PO 100 mg DAILY [facility]ETH Administration Tramadol HCl 50 mg 02/13/20 16:30 02/15/20 16:06 Tramadol Hcl 50 Mg Tablet PO 50 mg TIDAC ELIZABETH Administration Trazodone HCl 100 mg 02/09/20 21:00 02/14/20 20:15 Trazodone Hcl 100 Mg Tablet PO 100 mg BEDTIME EL[facility]ABETH Administration Allergies Allergies Allergy/AdvReac Type Severity Reaction Status Date / Time acetaminophen Allergy Rash Verified 02/09/20 21:06 bees Allergy Severe Anaphylaxis Uncoded 02/09/20 21:06 Assessment & Plan Assessment & Plan (1) Alcohol use disorder, severe, dependence: Status: Acute Code(s): F10.20 - Alcohol dependence, uncomplicated Assessment and Plan: Education (2) PTSD (post-traumatic stress disorder): Status: Acute Code(s): F43.10 - Post-traumatic stress disorder, unspecified Assessment and Plan: CT medication Greater than 50% of the session was spent on counseling and/or coordination of care Patient educated on: diagnosis, medication risk/benefits and substance abuse Informed Consent: further education needed Reason for contiued inpatient stay Substantial Risk for: rapid decompensation
[2020-02-15 20:41] VITALS: BP 125/71; PULSE 81
[2020-02-15] MEDS: Prazosin HCL 5 MG CAPSULE PO (20:41)
[2020-02-15] MEDS: ARIPiprazole 5 MG TABLET 10 MG PO (20:41)
[2020-02-15] MEDS: traZODone HCL 100 MG TABLET PO (20:43)
[2020-02-15] MEDS: Doxepin HCl 25 MG CAPSULE 50 MG PO (20:43)
[2020-02-15 20:46] VITALS: BP 125/71; PULSE 81; TEMP 36.6; O2SAT 98
[2020-02-16] MEDS: traMADoL HCL 50 MG TABLET PO ×3 (06:52→15:57)
[2020-02-16] MEDS: LORazepam 1 MG TABLET PO ×3 (06:52→15:57)
[2020-02-16] MEDS: Gabapentin 400 MG CAPSULE 800 MG PO ×3 (06:52→15:57)
[2020-02-16 07:25] VITALS: BP 126/70; PULSE 88; TEMP 36.2
[2020-02-16] MEDS: lamoTRIgine 100 MG TABLET 150 MG PO ×2 (08:36→20:03)
[2020-02-16] MEDS: Sertraline HCL 100 MG TABLET PO (08:37)
[2020-02-16] MEDS: DULoxetine HCl 20 MG CAPSULE.DR PO (08:37)
[2020-02-16] MEDS: Lidocaine 4 % Patch ADH..PATCH 2 PATCH TRANSDERMA (10:34)
--- NOTE | 2020-02-16 19:31 | HO.PSYCHPN ---
Subjective Subjective Date of Service: 02/16/20 Reason For Visit: UNSPECIFIED BIPOLAR DISORDER Subjective Notes: Conditional Voluntary Interim History: Depressed but still improving. Denies cravings. Looking forward to [place] She spoke about her AA experiences and she was encouraged to call her sponser. She has abdominal pain due to her fatty liver. She was encouraged to limit medications to allow her liver to heal. Medication Compliance: Yes Side effects from medications: No Attending Groups: Yes Review of Systems Acute medical concerns: No Medical Review of Systems: unchanged Review of Systems Review of Systems Yes all other systems are reviewed and are negative Mental Status Exam Mental Status Exam Patient Appearance: Well Grooomed Patient Orientation: Person, Place, Time and Situation Level of Consciousness: Awake Patient Behavior: Appropriate Mood Description: Calm, Depressed and Sad Affect Description: Calm, Depressed and Sad Patient Cognition Impaired: No Ability to Follow Directions: Excellent Speech Pattern: Clear Memory Description: Intact Hallucinations: None Delusions: Not Present Thought Process: Intact Thought Content: negative for Suicidal Ideation and negative for Homicidal Ideation Judgement: Good Diagnostics Vital Signs (24Hr): Vital Signs - 24 hr 02/15/20 20:41 02/15/20 20:46 02/16/20 07:25 Temperature 98 F 97.2 F Pulse Rate 81 81 88 Blood Pressure 125/71 125/71 126/70 Pulse Oximetry 98 Body Mass Index 35.2 Labs Results: 02/11/20 08:00 02/11/20 08:00 Medications Medications Current Medications Generic Name Dose Route Start Last Admin Trade Name Freq PRN Reason Stop Dose Admin Al Hydroxide/Mg Hydroxide 30 ml 02/09/20 21:11 Magnesium Hydrox/Alum Hydrox 30 Ml Oral.Susp PO Q6H PRN Heartburn/Nausea Aripiprazole 10 mg 02/09/20 21:00 02/15/20 20:41 Aripiprazole 5 Mg Tablet PO 10 mg BEDTIME ELIZABETH Administration Doxepin HCl 50 mg 02/09/20 21:00 02/15/20 20:43 Doxepin Hcl 25 Mg Capsule PO 50 mg BEDTIME ELIZABETH Administration Duloxetine HCl 20 mg 02/11/20 09:00 02/16/20 08:37 Duloxetine Hcl 20 Mg Capsule.Dr PO 20 mg DAILY ELIZABETH Administration Gabapentin 800 mg 02/13/20 16:30 02/16/20 15:57 Gabapentin 400 Mg Capsule PO 800 mg TIDAC ELIZABETH Administration Hydroxyzine HCl 25 mg 02/09/20 21:11 02/12/20 02:10 Hydroxyzine Hcl 25 Mg Tablet PO 25 mg BEDTIME PRN Administration Anxiety Lamotrigine 150 mg 02/12/20 21:00 02/16/20 08:36 Lamotrigine 100 Mg Tablet PO 150 mg BID ELIZABETH Administration Lidocaine 2 patch 02/11/20 11:15 02/16/20 10:34 Lidocaine 4 % Patch Adh..Patch TRANSDERMA 2 patch DAILY ELIZABETH Administration Protocol Lorazepam 1 mg 02/13/20 16:30 02/16/20 15:57 Lorazepam 1 Mg Tablet PO 1 mg TIDAC ELIZABETH Administration Magnesium Hydroxide 30 ml 02/09/20 21:11 02/14/20 13:42 Milk Of Magnesia 30 Ml Oral.Susp PO 30 ml DAILY PRN Administration Constipation Nicotine Polacrilex 2 mg 02/09/20 23:18 Nicotine Polacrilex 2 Mg Lozenge BUCCAL Q1H PRN Nicotine Cravings Pt Own Pantoprazole 0 each 02/12/20 09:00 02/16/20 08:29 40 Mg PO 1 each DAILY ELIZABETH Administration Pt Own (Creon 12,000 2 each 02/13/20 16:30 02/16/20 15:57 Units) PO 2 each TIDAC ELIZABETH Administration Prazosin HCl 5 mg 02/09/20 23:15 02/15/20 20:41 Prazosin Hcl 5 Mg Capsule PO 5 mg BEDTIME ELIZABETH Administration Protocol Sertraline HCl 100 mg 02/11/20 09:00 02/16/20 08:37 Sertraline Hcl 100 Mg Tablet PO 100 mg DAILY ELIZABETH Administration Tramadol HCl 50 mg 02/13/20 16:30 02/16/20 15:57 Tramadol Hcl 50 Mg Tablet PO 50 mg TIDAC ELIZABETH Administration Trazodone HCl 100 mg 02/09/20 21:00 02/15/20 20:43 Trazodone Hcl 100 Mg Tablet PO 100 mg BEDTIME ELIZABETH Administration Allergies Allergies Allergy/AdvReac Type Severity Reaction Status Date / Time acetaminophen Allergy Rash Verified 02/09/20 21:06 bees Allergy Severe Anaphylaxis Uncoded 02/09/20 21:06 Assessment & Plan Assessment & Plan (1) Bipolar disorder: Status: Acute Code(s): F31.9 - Bipolar disorder, unspecified Assessment and Plan: CT medicaton without change (2) Alcohol use disorder, severe, dependence: Status: Acute Code(s): F10.20 - Alcohol dependence, uncomplicated Assessment and Plan: Encourage AA, IOP (3) Abdominal pain: Status: Acute Code(s): R10.9 - Unspecified abdominal pain Assessment and Plan: Likely due to fatty liver Minimize medications Greater than 50% of the session was spent on counseling and/or coordination of care Patient educated on: diagnosis, medication risk/benefits, substance abuse, therapeutic strategies and medical condition Informed Consent: further education needed Reason for contiued inpatient stay Substantial Risk for: rapid decompensation
[2020-02-16 20:02] VITALS: BP 119/80; PULSE 82
[2020-02-16] MEDS: ARIPiprazole 5 MG TABLET 10 MG PO (20:02)
[2020-02-16] MEDS: Prazosin HCL 5 MG CAPSULE PO (20:02)
[2020-02-16] MEDS: Doxepin HCl 25 MG CAPSULE 50 MG PO (20:03)
[2020-02-16] MEDS: traZODone HCL 100 MG TABLET PO (20:03)
[2020-02-16 21:04] VITALS: BP 119/80; PULSE 82; TEMP 36.5; O2SAT 97
[2020-02-17 04:25] VITALS: BP 102/66; PULSE 99; RESP 16; TEMP 36.1
[2020-02-17] MEDS: Gabapentin 400 MG CAPSULE 800 MG PO ×3 (07:02→16:24)
[2020-02-17] MEDS: traMADoL HCL 50 MG TABLET PO ×3 (07:02→16:23)
[2020-02-17] MEDS: LORazepam 1 MG TABLET PO ×3 (07:03→16:23)
[2020-02-17 07:13] VITALS: BP 102/66; PULSE 99; RESP 16; TEMP 36.1
[2020-02-17] MEDS: Sertraline HCL 100 MG TABLET PO (08:20)
[2020-02-17] MEDS: lamoTRIgine 100 MG TABLET 150 MG PO ×2 (08:20→20:23)
[2020-02-17] MEDS: Lidocaine 4 % Patch ADH..PATCH 2 PATCH TRANSDERMA (08:21)
[2020-02-17] MEDS: DULoxetine HCl 20 MG CAPSULE.DR PO (08:21)
--- NOTE | 2020-02-17 10:28 | HO.PSYCHPN ---
Subjective Subjective Reason For Visit: UNSPECIFIED BIPOLAR DISORDER Interim History: patient feeling okay about potential discharge complains of abdominal pain She has abdominal pain due to her fatty liver. She was encouraged to limit medications to allow her liver to heal. Mental Status Exam Mental Status Exam Patient Appearance: Well Grooomed Patient Orientation: Person, Place, Time and Situation Level of Consciousness: Awake Patient Behavior: Appropriate Mood Description: Calm, Depressed and Sad Affect Description: Calm, Depressed and Sad Patient Cognition Impaired: No Ability to Follow Directions: Excellent Speech Pattern: Clear Memory Description: Intact Diagnostics Vital Signs (24Hr): Vital Signs - 24 hr 02/16/20 20:02 02/16/20 21:04 02/17/20 04:25 Temperature 97.7 F 96.9 F Pulse Rate 82 82 99 Respiratory Rate 16 Blood Pressure 119/80 119/80 102/66 Pulse Oximetry 97 02/17/20 07:13 Temperature 96.9 F Pulse Rate 99 Respiratory Rate 16 Blood Pressure 102/66 Pulse Oximetry Body Mass Index 35.2 Labs Results: 02/11/20 08:00 02/11/20 08:00 Medications Medications Current Medications Generic Name Dose Route Start Last Admin Trade Name Freq PRN Reason Stop Dose Admin Al Hydroxide/Mg Hydroxide 30 ml 02/09/20 21:11 Magnesium Hydrox/Alum Hydrox 30 Ml Oral.Susp PO Q6H PRN Heartburn/Nausea Aripiprazole 10 mg 02/09/20 21:00 02/16/20 20:02 Aripiprazole 5 Mg Tablet PO 10 mg BEDTIME ELIZABETH Administration Doxepin HCl 50 mg 02/09/20 21:00 02/16/20 20:03 Doxepin Hcl 25 Mg Capsule PO 50 mg BEDTIME ELIZABETH Administration Duloxetine HCl 20 mg 02/11/20 09:00 02/17/20 08:21 Duloxetine Hcl 20 Mg Capsule.Dr PO 20 mg DAILY ELIZABETH Administration Gabapentin 800 mg 02/13/20 16:30 02/17/20 07:02 Gabapentin 400 Mg Capsule PO 800 mg TIDAC ELIZABETH Administration Hydroxyzine HCl 25 mg 02/09/20 21:11 02/12/20 02:10 Hydroxyzine Hcl 25 Mg Tablet PO 25 mg BEDTIME PRN Administration Anxiety Lamotrigine 150 mg 02/12/20 21:00 02/17/20 08:20 Lamotrigine 100 Mg Tablet PO 150 mg BID ELIZABETH Administration Lidocaine 2 patch 02/11/20 11:15 02/17/20 08:21 Lidocaine 4 % Patch Adh..Patch TRANSDERMA 2 patch DAILY ELIZABETH Administration Protocol Lorazepam 1 mg 02/13/20 16:30 02/17/20 07:03 Lorazepam 1 Mg Tablet PO 1 mg TIDAC ELIZABETH Administration Magnesium Hydroxide 30 ml 02/09/20 21:11 02/14/20 13:42 Milk Of Magnesia 30 Ml Oral.Susp PO 30 ml DAILY PRN Administration Constipation Nicotine Polacrilex 2 mg 02/09/20 23:18 Nicotine Polacrilex 2 Mg Lozenge BUCCAL Q1H PRN Nicotine Cravings Pt Own Pantoprazole 0 each 02/12/20 09:00 02/17/20 08:27 40 Mg PO 40 each DAILY ELIZABETH Administration Pt Own (Creon 12,000 2 each 02/13/20 16:30 02/17/20 07:02 Units) PO 2 each TIDAC ELIZABETH Administration Prazosin HCl 5 mg 02/09/20 23:15 02/16/20 20:02 Prazosin Hcl 5 Mg Capsule PO 5 mg BEDTIME ELIZABETH Administration Protocol Sertraline HCl 100 mg 02/11/20 09:00 02/17/20 08:20 Sertraline Hcl 100 Mg Tablet PO 100 mg DAILY ELIZABETH Administration Tramadol HCl 50 mg 02/13/20 16:30 02/17/20 07:02 Tramadol Hcl 50 Mg Tablet PO 50 mg TIDAC ELIZABETH Administration Trazodone HCl 100 mg 02/09/20 21:00 02/16/20 20:03 Trazodone Hcl 100 Mg Tablet PO 100 mg BEDTIME ELIZABETH Administration Allergies Allergies Allergy/AdvReac Type Severity Reaction Status Date / Time acetaminophen Allergy Rash Verified 02/09/20 21:06 bees Allergy Severe Anaphylaxis Uncoded 02/09/20 21:06 Assessment & Plan Assessment & Plan (1) Bipolar disorder: Status: Acute Code(s): F31.9 - Bipolar disorder, unspecified Assessment and Plan: CT medicaton without change (2) Alcohol use disorder, severe, dependence: Status: Acute Code(s): F10.20 - Alcohol dependence, uncomplicated Assessment and Plan: Encourage AA, IOP (3) Abdominal pain: Status: Acute Code(s): R10.9 - Unspecified abdominal pain Assessment and Plan: Likely due to fatty liver Minimize medications Greater than 50% of the session was spent on counseling and/or coordination of care
[2020-02-17 16:33] VITALS: BP 117/78; PULSE 78; TEMP 36.5
[2020-02-17 20:00] VITALS: BP 118/73; PULSE 83
[2020-02-17 20:22] VITALS: BP 118/73; PULSE 85
[2020-02-17] MEDS: ARIPiprazole 5 MG TABLET 10 MG PO (20:22)
[2020-02-17] MEDS: traZODone HCL 100 MG TABLET PO (20:22)
[2020-02-17] MEDS: Prazosin HCL 5 MG CAPSULE PO (20:22)
[2020-02-17] MEDS: Doxepin HCl 25 MG CAPSULE 50 MG PO (20:25)
[2020-02-18 05:55] VITALS: BP 124/73; PULSE 94; RESP 18; TEMP 35.9; O2SAT 96
[2020-02-18] MEDS: traMADoL HCL 50 MG TABLET PO ×2 (06:42→11:09)
[2020-02-18] MEDS: Gabapentin 400 MG CAPSULE 800 MG PO ×2 (06:42→11:09)
[2020-02-18] MEDS: LORazepam 1 MG TABLET PO ×2 (06:42→11:08)
[2020-02-18] MEDS: lamoTRIgine 100 MG TABLET 150 MG PO (09:16)
[2020-02-18] MEDS: DULoxetine HCl 20 MG CAPSULE.DR PO (09:16)
[2020-02-18] MEDS: Sertraline HCL 100 MG TABLET PO (09:16)
--- NOTE | 2020-02-18 09:22 | HO.PSYCHPN ---
Subjective Subjective Date of Service: 02/18/20 Reason For Visit: UNSPECIFIED BIPOLAR DISORDER Subjective Notes: Conditional Voluntary Interim History: Pt ready for DC. See Dc summary Diagnostics Vital Signs (24Hr): Vital Signs - 24 hr 02/17/20 16:33 02/17/20 20:00 02/17/20 20:22 Temperature 97.7 F Pulse Rate 78 83 85 Respiratory Rate Blood Pressure 117/78 118/73 118/73 Pulse Oximetry 02/18/20 05:55 Temperature 96.6 F L Pulse Rate 94 Respiratory Rate 18 Blood Pressure 124/73 Pulse Oximetry 96 Body Mass Index 35.2 Labs Results: 02/11/20 08:00 02/11/20 08:00 Medications Medications Current Medications Generic Name Dose Route Start Last Admin Trade Name Freq PRN Reason Stop Dose Admin Al Hydroxide/Mg Hydroxide 30 ml 02/09/20 21:11 Magnesium Hydrox/Alum Hydrox 30 Ml Oral.Susp PO Q6H PRN Heartburn/Nausea Aripiprazole 10 mg 02/09/20 21:00 02/17/20 20:22 Aripiprazole 5 Mg Tablet PO 10 mg BEDTIME ELIZABETH Administration Doxepin HCl 50 mg 02/09/20 21:00 02/17/20 20:25 Doxepin Hcl 25 Mg Capsule PO 50 mg BEDTIME ELIZABETH Administration Duloxetine HCl 20 mg 02/11/20 09:00 02/18/20 09:16 Duloxetine Hcl 20 Mg Capsule.Dr PO 20 mg DAILY ELIZABETH Administration Gabapentin 800 mg 02/13/20 16:30 02/18/20 06:42 Gabapentin 400 Mg Capsule PO 800 mg TIDAC ELIZABETH Administration Hydroxyzine HCl 25 mg 02/09/20 21:11 02/12/20 02:10 Hydroxyzine Hcl 25 Mg Tablet PO 25 mg BEDTIME PRN Administration Anxiety Lamotrigine 150 mg 02/12/20 21:00 02/18/20 09:16 Lamotrigine 100 Mg Tablet PO 150 mg BID ELIZABETH Administration Lidocaine 2 patch 02/11/20 11:15 02/17/20 08:21 Lidocaine 4 % Patch Adh..Patch TRANSDERMA 2 patch DAILY ELIZABETH Administration Protocol Lorazepam 1 mg 02/13/20 16:30 02/18/20 06:42 Lorazepam 1 Mg Tablet PO 1 mg TIDAC ELIZABETH Administration Magnesium Hydroxide 30 ml 02/09/20 21:11 02/14/20 13:42 Milk Of Magnesia 30 Ml Oral.Susp PO 30 ml DAILY PRN Administration Constipation Nicotine Polacrilex 2 mg 02/09/20 23:18 Nicotine Polacrilex 2 Mg Lozenge BUCCAL Q1H PRN Nicotine Cravings Pt Own Pantoprazole 0 each 02/12/20 09:00 02/17/20 08:27 40 Mg PO 40 each DAILY ELIZABETH Administration Pt Own (Creon 12,000 2 each 02/13/20 16:30 02/18/20 06:42 Units) PO 2 each TIDAC ELIZABETH Administration Prazosin HCl 5 mg 02/09/20 23:15 02/17/20 20:22 Prazosin Hcl 5 Mg Capsule PO 5 mg BEDTIME ELIZABETH Administration Protocol Sertraline HCl 100 mg 02/11/20 09:00 02/18/20 09:16 Sertraline Hcl 100 Mg Tablet PO 100 mg DAILY ELIZABETH Administration Tramadol HCl 50 mg 02/13/20 16:30 02/18/20 06:42 Tramadol Hcl 50 Mg Tablet PO 50 mg TIDAC ELIZABETH Administration Trazodone HCl 100 mg 02/09/20 21:00 02/17/20 20:22 Trazodone Hcl 100 Mg Tablet PO 100 mg BEDTIME ELIZABETH Administration Allergies Allergies Allergy/AdvReac Type Severity Reaction Status Date / Time acetaminophen Allergy Rash Verified 02/09/20 21:06 bees Allergy Severe Anaphylaxis Uncoded 02/09/20 21:06 Assessment & Plan Greater than 50% of the session was spent on counseling and/or coordination of care. DC today
[2020-02-18 10:45] VITALS: BP 124/73; PULSE 94; TEMP 35.9
[2020-02-18] MEDS: Lidocaine 4 % Patch ADH..PATCH 2 PATCH TRANSDERMA (12:06)
--- NOTE | 2020-03-08 08:18 | PM.PSYDC ---
DS: Providers Provider Date of admission: 02/09/20 20:27 Primary care physician: Georgiana Cleveland NP Admitting clinician: Nazario Ayala Attending physician on admission: Nazario Ayala Consults: 02/10/20 18:14 Consult to Hospitalist Routine Consulting Provider: [facility] Reason for consultation: H and P per protocol Has provider been notified: No Attending physician on discharge: Nazario Ayala DS: Diagnosis Discharge Diagnosis (1) Bipolar disorder: Status: Acute (2) Alcohol use disorder, severe, dependence: Status: Acute (3) Abdominal pain: Status: Resolved Discharge Plan Discharge Anticipated Discharge Date/Time: 02/18/20 11:15 Patient Disposition: Home, Self-Care Referrals: Georgiana Cleveland NP [Primary Care Provider] - (OFFICE TO CALL YOU AT HOME WITH APPOINTMENT DATE AND TIME) Discharge Medications: New gabapentin 800 mg tablet 800 mg PO TID 30 Days Qty: 90 RF: 0 tramadol 50 mg Tablet 50 mg PO TIDAC 20 Days Qty: 60 RF: 0 trazodone 100 mg Tablet 100 mg PO BEDTIME 30 Days Qty: 30 RF: 0 lorazepam 1 mg Tablet 1 mg PO TIDAC 20 Days Qty: 60 RF: 0 lamotrigine 100 mg Tablet 150 mg PO BID 30 Days Qty: 90 RF: 0 duloxetine 20 mg Capsule,Delayed Release(Dr/Ec) 20 mg PO DAILY 30 Days Qty: 30 RF: 0 Patient Own Medication 0 ea PO DAILY 30 Days Qty: 3 RF: 0 Patient Own Medication 2 ea PO TIDAC 30 Days Qty: 60 RF: 0 Continued prazosin 5 mg Capsule 5 mg PO BEDTIME 30 Days Qty: 30 RF: 0 aripiprazole tablet 10 mg PO BEDTIME 30 Days Qty: 30 RF: 0 doxepin capsule 50 mg PO BEDTIME 30 Days Qty: 30 RF: 0 Discontinued Creon capsule 24,000 units PO TIDAC RF: 0 Ativan tablet 1.5 mg PO BID RF: 0 gabapentin tablet 600 mg PO QID RF: 0 lamotrigine tablet 125 mg PO BID RF: 0 pantoprazole [Protonix] 40 mg Tablet,Delayed Release (Dr/Ec) 40 mg PO DAILY RF: 0 sertraline 100 mg Tablet 100 mg PO BID RF: 0 tramadol [Ultram] 50 mg Tablet 50 mg PO PRN (Reason: Severe Pain (Scale Score 7-10)) RF: 0 trazodone tablet 100 mg PO BEDTIME RF: 0 Discharge Orders: Discharge Order (Routine); Ordered 02/18/20 Ordered By: Nazario Ayala Diet: regular diet Activity on Discharge: As tolerated Stand Alone Forms: Community Support Discharge Date/Time: 02/18/20 13:30 Visit Report Forms: Patient Portal Discharge page Care Plan Goals: Abstain from ETOH Improve mood Health Concerns: Alcohol use and mediical consequences Depression Plan of Treatment: AA Medc Mgmt Abstain from ETOH See therapist Consider IOP Mental Status Exam Mental Status Exam Patient Appearance: Well Grooomed Patient Orientation: Person, Place, Time and Situation Level of Consciousness: Awake Patient Behavior: Appropriate Mood Description: Calm and Depressed Affect Description: Depressed Ability to Follow Directions: Excellent Speech Pattern: Clear Memory Description: Intact Delusions: Not Present Thought Content: positive for Intact, positive for Suicidal Ideation (resolved) and positive for Homicidal Ideation (none) Depressive Symptoms: Hopelessness (improved) Judgement: Good DS: Summary Hospital Course Hospital Course: 39-year-old white woman presented to [facility] with suicidal ideation in the context of alcohol use. Patient states steadily worsening mood over the past several months precipitated by Covid. in addition patient recounted multiple losses over the past 2 years including her best friend who of liver failure and her uncle. Patient states she has been drinking large amounts of vodka and her health has deteriorated. Psychiatric review of symptoms is positive for depression she describes anhedonia hopelessness helplessness and suicidal ideation she had plans to hang herself. Patient has a history of completed suicide in her father. Patient describes a history of mood lability suggestive of bipolarity and has been treated for the same at for [facility] [place]. patient denies auditory or visual hallucinations signs of psychosis. She reports intermittent anxiety. No other major psychiatric syndromes noted Past Psychiatric History: outpatient providers at [facility] [place]. Patient has multiple detox is and [address] [facility] in the past patient did not complete [facility] referral in the past patient feels current medication is effective except Zoloft has not been working in addition increase pain has been complicating medication effectiveness Pt was quite depressed on admission. Responded well to counselling, support ventilation. Educated re Rx options. Decided she will work with sponsor and defer PHP/IOP. Has providers at [place]. Educated re fatty liver and implications to health. Was switched from Zoloft to Cymbalta. OP provider should avoid benzos. Naltrexone deferred due to LFT and Tramadol Time spent discussing smoking cessation with patient: more than 10 minutes Status at Discharge Cognitive/behavioral status at discharge: Stable Functional status at discharge: independent ambulation Overall status at discharge: patient is progressing back to baseline Time Spent with Patient Time attestation: Total time spent providing and/or coordinating discharge services:
== END 2020-02-18 13:30 | disposition home or self-care (01) | DRG 753 ==
PROVIDERS: Admitting Provider Psychiatry & Neurology Psychiatry; PCP Nurse Practitioner Family; Visit Provider Psychiatry & Neurology Psychiatry
DX: F31.9 Bipolar disorder, unspecified (principal); R45.851 Suicidal ideations; K70.0 Alcoholic fatty liver; F43.10 Post-traumatic stress disorder, unspecified; F10.20 Alcohol dependence, uncomplicated; F17.210 Nicotine dependence, cigarettes, uncomplicated; Z71.6 Tobacco abuse counseling; Z23 Encounter for immunization; Z88.6 Allergy status to analgesic agent; Z79.891 Long term (current) use of opiate analgesic; Z79.899 Other long term (current) drug therapy
CPT/HCPCS: 36415; 76705; 80053; 80061; 80076; 81025; 82150; 83690; 85025; 90686; 99223; 99232; 99233; 99239

== ENCOUNTER 2021-05-20 19:18 | Emergency (ER) | payer MEDICAID, SELFPAY ==
--- NOTE | ~2021-05-20 | CT_ITS ---
EXAMINATION: CT HEAD WITHOUT CONTRAST CLINICAL INFORMATION: Headache. COMPARISON: None. TECHNIQUE: Contiguous axial imaging was performed from the skull base to vertex without intravenous administration of contrast. This CT examination was performed using dose optimization techniques as appropriate, variously including the following: *Automated exposure control *Adjustment of mA and/or kV according to patient size (this includes techniques or standardized protocols for targeted exams where dose is matched to indication/reason for exam; i.e. extremities or head) *Use of iterative reconstruction technique DLP: 586 mGy-cm FINDINGS: There is no evidence of acute intracranial hemorrhage or edematous territorial infarction. There is no abnormal attenuation within the brain parenchyma. Sinha-white matter differentiation is preserved. The ventricles are normal in size and configuration. No evidence for obstructive hydrocephalus. No abnormal mass effect or midline shift. No extra-axial fluid collections. No acute soft tissue or osseous abnormalities. Mucosal thickening of the paranasal sinuses with partial opacification of several left ethmoidal air cells. The mastoids are clear. CT/CT head/brain wo con IMPRESSION: 1. No evidence of acute intracranial hemorrhage or edematous territorial infarction. 2. Paranasal sinus disease. Correlate clinically for acute sinusitis.
--- NOTE | ~2021-05-20 | CT_ITS ---
EXAMINATION: CT ABDOMEN AND PELVIS WITHOUT CONTRAST CLINICAL INFORMATION: Fall. Pain to the sacrum/pelvic pain. COMPARISON: None TECHNIQUE: Multidetector volumetric imaging was performed from the superior aspect of the liver through the pubic symphysis. Sagittal and coronal reformatted images were obtained on the technologist's workstation. This CT examination was performed using dose optimization techniques as appropriate, variously including the following: *Automated exposure control *Adjustment of mA and/or kV according to patient size (this includes techniques or standardized protocols for targeted exams where dose is matched to indication/reason for exam; i.e. extremities or head) *Use of iterative reconstruction technique DLP: 738 mGy-cm FINDINGS: LUNG BASES: The visualized lung bases are unremarkable. LIVER, GALLBLADDER, AND BILIARY TREE: Liver normal in size, contour and morphology. Mild diffuse hepatic steatosis. No focal liver lesions. Gallbladder unremarkable. PANCREAS: Coarse calcifications scattered throughout the pancreas. No pancreatic inflammation or mass. SPLEEN: Unremarkable. ADRENAL GLANDS: Unremarkable. KIDNEYS AND URETERS: The kidneys are normal in size, shape, and attenuation. No hydronephrosis, hydroureter, or calculi seen. No perinephric stranding. BLADDER: Unremarkable. GASTROINTESTINAL TRACT: Stomach and small bowel unremarkable. Scattered colonic diverticula without evidence of diverticulitis. Appendix not seen. ABDOMINAL WALL: No significant hernia is appreciated. LYMPH NODES: Normal. VASCULAR: Unremarkable. PELVIC VISCERA: Uterus and adnexa unremarkable. OSSEOUS STRUCTURES: No acute fracture or dislocation. Avascular across the left femoral head, without cortical collapse. Mild bilateral hip joint space narrowing. L5 is sacralized. CT/CT abdomen pelvis wo con IMPRESSION: * No acute fracture or traumatic malalignment. * Hepatic steatosis. * Sequela chronic pancreatitis. * Scattered colonic diverticula without evidence of diverticulitis. 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
--- NOTE | ~2021-05-20 | CT_ITS ---
EXAMINATION: CT CERVICAL SPINE WITHOUT CONTRAST CLINICAL INFORMATION: Fall, neck pain. COMPARISON: None. TECHNIQUE: Noncontrast axial, coronal and sagittal images of the cervical spine were obtained. This CT examination was performed using dose optimization techniques as appropriate, variously including the following: *Automated exposure control *Adjustment of mA and/or kV according to patient size (this includes techniques or standardized protocols for targeted exams where dose is matched to indication/reason for exam; i.e. extremities or head) *Use of iterative reconstruction technique DLP: 586 mGy-cm FINDINGS: The atlantooccipital and atlantoaxial articulations remain well aligned. Straightening of the normal cervical lordosis. Otherwise, there is anatomic alignment of the vertebral bodies and posterior elements. No evidence of acute fracture or subluxation. There is multilevel cervical spondylosis with disc space narrowing and uncovertebral hypertrophy with near fused facet joints at C2-C3 on the right side. There is no prevertebral soft tissue swelling. The thyroid gland and remaining cervical soft tissues are normal in appearance. The lung apices demonstrate no abnormalities. CT/CT cervical spine wo con IMPRESSION: No acute cervical fractures or malalignment. Multilevel cervical spondylosis.
--- NOTE | 2021-05-20 19:56 | ED.PSYCH ---
HPI - Psych General Stated Complaint: SI/OD Time Seen by Provider: 05/20/21 19:56 Source: patient Mode of arrival: ambulatory Limitations: no limitations History of Present Illness HPI Narrative: This is a 40-year-old female past medical history significant for PTSD, bipolar, detection, alcohol use disorder presenting to the emergency department with suicidal ideation with plan to overdose on her home medications. Patient tells me that she took 4 of her lorazepam prior to her arrival, she said she did this in hopes to harm herself. She also tells me that she took four shots of hard liquor. She also reports that earlier today she felt dizzy and fell, hit her head and neck, and hit her lower back she is now complaining of lower back pain and is asking for pain medication. She tells me she is followed by psychiatrist and a therapist. She denies visual, auditory and tactile hallucinations. She denies drug, tobacco use. She denies any other medical complaints at this time. Cant identify a triggering event. She has been taking all medications. MD complaint: suicidal ideation, feels depressed, anxiety and alcohol abuse Onset (ago): day(s) (1) Duration: constant History of same: Yes Relieving factors: none Exacerbating factors: none Context: recent alcohol abuse Associated symptoms: denies other symptoms Treatments prior to arrival: none If self harm: admits thoughts of self harm, has plan (overdose), has acted on plan and intentional overdose Related Data Previous Rx's Medication Instructions Recorded Patient Own Medication 0 ea PO DAILY 30 Days #3 tab 02/18/20 Patient Own Medication 2 ea PO TIDAC 30 Days #60 tab 02/18/20 aripiprazole 10 mg PO BEDTIME 30 Days #30 tab 02/18/20 doxepin 50 mg PO BEDTIME 30 Days #30 tab 02/18/20 duloxetine 20 mg capsule,delayed 20 mg PO DAILY 30 Days #30 cap 02/18/20 release gabapentin 800 mg tablet 800 mg PO TID 30 Days #90 tab 02/18/20 lamotrigine 100 mg tablet 150 mg PO BID 30 Days #90 tab 02/18/20 lorazepam 1 mg tablet 1 mg PO TIDAC 20 Days #60 tab 02/18/20 prazosin 5 mg capsule 5 mg PO BEDTIME 30 Days #30 cap 02/18/20 tramadol 50 mg tablet 50 mg PO TIDAC 20 Days #60 tab 02/18/20 trazodone 100 mg tablet 100 mg PO BEDTIME 30 Days #30 tab 02/18/20 Allergies Allergy/AdvReac Type Severity Reaction Status Date / Time acetaminophen Allergy Rash Verified 02/09/20 21:06 ibuprofen AdvReac Rash Verified 05/20/21 20:51 morphine AdvReac Gastrointestinal Verified 05/20/21 20:51 Upset ondansetron [From Zofran] AdvReac Gastrointestinal Verified 05/20/21 20:51 Upset bees Allergy Severe Anaphylaxis Uncoded 02/09/20 21:06 Review of Systems Review of Systems: Constitutional : No Fever, No Chills ENT/Mouth : No sore throat, No Rhinorrhea Eyes: No Eye Pain, No Swelling, No Redness Cardiovascular : No Chest Pain, No SOB Respiratory : No Cough, No Sputum Gastrointestinal : No Nausea, No Vomiting, No Diarrhea, No abdominal Pain Genitourinary : No Dysuria, No Hematuria Musculoskeletal : No joint pain, No Myalgias, No Joint Swelling Skin : No Skin Lesions, No rash Neuro : No Weakness, No Numbness, + headache, +dizziness Psych : + Anxiety, + Depression, + SI/HI, No AH/VH All other systems reviewed and are negative Yes all other systems are reviewed and are negative COUNTS INCLUDE 234 BEDS AT THE [facility] Past Medical History Attestation statement: The following information was validated with the patient. Source: old records reviewed and nursing notes reviewed Medical History Anxiety Bipolar disorder Constipation Depression Endometriosis Gastritis Gastritis PTSD (post-traumatic stress disorder) Suicidal behavior Surgical History History of ankle surgery Social History Social History Household Members: Significant Other, Children and Unknown / Unable to assess Housing: House Do you presently have visiting nurse or other home services: No Alcohol intake: current Second Hand Smoke Exposure: Yes Substance Use Type: Crack/Cocaine Advance Directives: No service: No Sexual orientation: Straight/Heterosexual Physical Exam Vital Signs: Vital Signs: VSS Appearance: Alert.? Oriented X3.? No acute distress.? Head: Normocephalic, atraumatic, no step-offs or deformities Eyes: Pupils equal, round and reactive to light.? ENT: Pharynx normal.? Neck: Normal inspection.? Neck supple.? CVS: Normal heart rate and rhythm.? Pulses normal.? Respiratory: No respiratory distress.? Breath sounds normal.? Abdomen: Soft and nontender.? Skin: Skin warm and dry.? Normal skin color.? Normal skin turgor.? Extremities: No lower extremity edema.? No calf ttp. 5/5 strength to bilateral upper and lower extremities Back: No midline tenderness, no C-spine tenderness, full range of motion, no CVA tenderness bilaterally Neuro: Oriented X 3.? No motor deficit.? No sensory deficit. Cranial nerves 2-12 intact Course Reevaluation(s) Reevaluation #1: Sign out has been given to Dr. Woodard. Pending laboratory studies and imaging. Time: 21:08 MDM - Psych MDM Narrative Medical decision making narrative: 2004 40 yo F presents to ed w/ suicidal ideation and sexton s/p fall with plan to overdose on home meds. Patient tells me she took for lorazepam on purpose and hopes to . She also admits taking 4 shots of hard liquor. Denies visual, auditory and tactile hallucinations. Denies homicidal ideation Physical examination benign Plan is to obtain basic labs, and obtain a CT of the abdomen pelvis, cervical spine head and brain. Medical Records Attestation: I reviewed the patient's medical records. Lab Data Attestation: I reviewed the patient's lab results. Result diagrams: 05/20/21 20:51 05/20/21 20:51 Labs: Lab Results 05/20/21 Range/Units 20:51 WBC 5.0 (4.8-10.8) X10*3/uL RBC 4.44 (4.20-5.50) X10*6/uL Hgb 13.4 (12.0-16.0) g/dl Hct 40.6 (37.0-47.0) % MCV 91.4 (80.0-98.0) fL MCH 30.2 (27.0-33.0) pg MCHC 33.0 (31.0-35.0) g/dl RDW 13.3 (11.0-16.0) % Plt Count 235 (160-400) X10*3/uL MPV 9.3 L (9.4-12.3) fL Immature Gran % (Auto) 1.0 H (0.0-0.4) % Neut % (Auto) 35.7 L (45-73) % Lymph % (Auto) 51.9 H (20-40) % [place] % (Auto) 9.2 (2-11) % Eos % (Auto) 1.8 (0-4) % Baso % (Auto) 0.4 (0-2) % Lymph # (Auto) 2.6 (1.2-4.9) X10*3/uL [place] # (Auto) 0.5 (0.1-1.2) X10*3/uL Eos # (Auto) 0.1 (0.0-0.4) X10*3/uL Baso # (Auto) 0.0 (0.0-0.2) X10*3/uL Abs Immat Gran (auto) 0.05 H (0.00-0.03) X10*3/uL Absolute Neuts (auto) 1.8 L (2.0-8.3) x10*3/uL Absolute Nucleated RBC 0.000 (0.0-0.012) X10*3/uL Nucleated RBC % (auto) 0.0 (0.0-0.2) /100WBC Critical Care Time Critical Care Time Critical Care Time: No Discharge Plan Discharge Clinical Impression: Feeling suicidal, Depression Patient Disposition: Still a Patient Prescriptions: No Action gabapentin 800 mg tablet 800 mg PO TID 30 Days Qty: 90 RF: 0 tramadol 50 mg Tablet 50 mg PO TIDAC 20 Days Qty: 60 RF: 0 trazodone 100 mg Tablet 100 mg PO BEDTIME 30 Days Qty: 30 RF: 0 lorazepam 1 mg Tablet 1 mg PO TIDAC 20 Days Qty: 60 RF: 0 lamotrigine 100 mg Tablet 150 mg PO BID 30 Days Qty: 90 RF: 0 duloxetine 20 mg Capsule,Delayed Release(Dr/Ec) 20 mg PO DAILY 30 Days Qty: 30 RF: 0 Patient Own Medication 0 ea PO DAILY 30 Days Qty: 3 RF: 0 Patient Own Medication 2 ea PO TIDAC 30 Days Qty: 60 RF: 0 prazosin 5 mg Capsule 5 mg PO BEDTIME 30 Days Qty: 30 RF: 0 aripiprazole tablet 10 mg PO BEDTIME 30 Days Qty: 30 RF: 0 doxepin capsule 50 mg PO BEDTIME 30 Days Qty: 30 RF: 0
--- NOTE | 2021-05-20 19:59 | ECG_ITS ---
Test Reason : overdose Blood Pressure : / mmHG Vent. Rate : 083 BPM Atrial Rate : 083 BPM P-R Int : 138 ms QRS Dur : 080 ms QT Int : 404 ms P-R-T Axes : 028 055 035 degrees QTc Int : 474 ms Normal sinus rhythm Nonspecific ST and T wave abnormality Borderline ECG No previous ECGs available Referred By: Juan Ramon Myers Electronically Signed By:JUAN TABARES
[2021-05-20 20:55] LABS: MANUAL DIFF FLAG NO
[2021-05-20 20:56] LABS: Basophils Percent Auto 0.4 % (0-2); Eosinophils Absolute Auto 0.1 X10*3/uL (0.0-0.4); Eosinophils Percent Auto 1.8 % (0-4); Hematocrit 40.6 % (37.0-47.0); Hemoglobin 13.4 g/dl (12.0-16.0); Imm Gran Abs Auto 0.05 X10*3/uL (0.00-0.03); Lymphocytes Absolute Auto 2.6 X10*3/uL (1.2-4.9); Lymphocytes Percent Auto 51.9 % (20-40); Mean Corpuscular Hemoglobin 30.2 pg (27.0-33.0); Mean Corpuscular Volume 91.4 fL (80.0-98.0); Mean Platelet Volume 9.3 fL (9.4-12.3); Monocytes Absolute Auto 0.5 X10*3/uL (0.1-1.2); Monocytes Percent Auto 9.2 % (2-11); Neutrophils Absolute Auto 1.8 x10*3/uL (2.0-8.3); Neutrophils Percent Auto 35.7 % (45-73); Platelet Count 235 X10*3/uL (160-400); Red Blood Count 4.44 X10*6/uL (4.20-5.50); Red Cell Distribution Width 13.3 % (11.0-16.0)
[2021-05-20 21:11] LABS: Ethanol 178 mg/dL
[2021-05-20 21:15] LABS: Alanine Aminotransferase 103 U/L (0-31); Albumin Level 3.7 g/dL (3.5-5.0); Alkaline Phosphatase 72 U/L (39-117); Anion Gap 14 (12-20); Aspartate Amino Transferase 142 U/L (5-31); Bilirubin Total 0.3 mg/dL (0.0-1.0); Blood Urea Nitrogen 6 mg/dL (9-16); Calcium 8.6 mg/dL (8.4-10.2); Carbon Dioxide 25 mmol/L (22-29); Chloride 108 mmol/L (96-108); Estimated Glomerular Filt Rate > 60; Glucose Random 115 mg/dL (60-115); Potassium 3.7 mmol/L (3.3-5.1); Sodium 143 mmol/L (135-145); Total Protein 6.6 g/dL (6.5-8.0)
[2021-05-20 21:24] VITALS: BP 108/69; PULSE 88; RESP 14; TEMP 37.3; O2SAT 95; BMI 29.2
[2021-05-20 21:24] LABS: COVID-19 Test Positive (Negative)
[2021-05-20 22:38] LABS: Appearance Urine CLEAR; Color Urine YELLOW; Glucose Urine UA NEG (NEG); Leukocyte Esterase Urine NEG (NEG); Nitrite Urine NEG (NEG); Urine Blood NEG (NEG); Urine Ketones NEG (NEG); Urine Protein NEG (NEG-TRACE)
[2021-05-20 22:42] LABS: UPreg QC Valid YES; Urine Pregnancy NEGATIVE (NEGATIVE)
[2021-05-20 22:54] LABS: Amphetamine Screen Urine Not Detected (Not Detect); Barbiturates, Urine Not Detected (Not Detect); Benzodiazepines Screen Urine Not Detected (Not Detect); Cannabinoid Screen Urine Not Detected (Not Detect); Cocaine Screen Urine Not Detected (Not Detect); Fentanyl, urine Not Detected (Not Detect); Opiate Screen Urine Not Detected (Not Detect); Phencyclidine Screen Urine Not Detected (Not Detect)
--- NOTE | 2021-05-20 23:02 | PC.NURSE ---
Josep [phone]
[2021-05-20] MEDS: Ketorolac Tromethamine 30 MG/ML VIAL IM (23:49)
[2021-05-20 23:55] VITALS: BP 108/70; PULSE 79; RESP 12; TEMP 37.1; O2SAT 95
[2021-05-21 05:38] VITALS: BP 135/84; PULSE 70; RESP 14; TEMP 36.6; O2SAT 97
[2021-05-21 07:19] VITALS: BP 125/87; PULSE 81; RESP 15; TEMP 36.9; O2SAT 95
--- NOTE | 2021-05-21 09:50 | PC.NURSE ---
Patient is sleeping, appears comfortable at this time. 1:[address] awaiting [facility] jeremy
[2021-05-21 11:07] VITALS: BP 113/68; PULSE 75; RESP 18; TEMP 37.4; O2SAT 94
[2021-05-21] MEDS: Ketorolac Tromethamine 30 MG/ML VIAL IM ×2 (11:08→21:12)
--- NOTE | 2021-05-21 14:34 | PHA.MEDREC ---
Pharmacy Consult ? Medication Reconciliation Pharmacy has completed the medication reconciliation. Patient knew all medications. She reports using creon, but that was last filled in august 2020. Kyleigh Cannon, AmyD
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
[2021-05-21 16:40] VITALS: BP 125/68; PULSE 62; RESP 18; TEMP 36.4; O2SAT 98
[2021-05-21] MEDS: traMADoL HCL 50 MG TABLET PO (17:41)
[2021-05-21] MEDS: LORazepam 1 MG TABLET PO (18:01)
[2021-05-21] MEDS: Loperamide HCl 2 MG CAPSULE PO (18:01)
[2021-05-21] MEDS: Gabapentin 600 MG TABLET PO (18:01)
[2021-05-21] MEDS: Albuterol Sulfate 90 MCG 8 GM INHALER 2 PUFF INHALE (18:18)
[2021-05-21 18:19] VITALS: PULSE 62; RESP 18; O2SAT 98
--- NOTE | 2021-05-21 19:29 | PC.NURSE ---
Pt is resting with eyes closed on stretcher in NAD, breathing with ease on RA with RR unlabored, equal chest rise and fall bilaterally. Sitter remains in place.
[2021-05-21 20:00] VITALS: BP 126/89; PULSE 84; RESP 17; TEMP 36.5; O2SAT 97
[2021-05-21] MEDS: busPIRone HCl 5 MG TABLET 15 MG PO (20:28)
[2021-05-21] MEDS: lamoTRIgine 100 MG TABLET 150 MG PO (20:29)
[2021-05-21] MEDS: Prazosin HCL 5 MG CAPSULE PO (20:30)
[2021-05-21] MEDS: traZODone HCL 100 MG TABLET PO (20:30)
[2021-05-21] MEDS: ARIPiprazole 10 MG TABLET PO (20:31)
[2021-05-21] MEDS: Doxepin HCl 25 MG CAPSULE 50 MG PO (20:32)
--- NOTE | 2021-05-21 20:46 | PC.NURSE ---
Pt resting on stretcher in NAD, breathing with ease on RA, VSS. Pt aaox4, calm and cooperative with pt care. Pt reports coccyx pain, requesting PRN toradol. This RN to notify provider and request analgesics. Pt offers no additional complaints/concerns. Pt expresses understanding of plan for inpatient psych bedsearch. Pt agreeable to plan. Pt stretcher in lowest locked position, rails raised, call doherty within reach, sitter to remain in place.
[2021-05-22] MEDS: Albuterol Sulfate 90 MCG 8 GM INHALER INHALE (05:55)
[2021-05-22] MEDS: Omeprazole 20 MG CAPSULE.DR PO (05:55)
[2021-05-22 06:03] VITALS: BP 115/74; PULSE 112; RESP 18; TEMP 36.4; O2SAT 96
--- NOTE | 2021-05-22 06:18 | PC.NURSE ---
Patient slept through the night, no distress observed/reported, alert and oriented x 4, coherent, follows direction well, COVID +, medication compliant, behavior non concerning, appetite good, elimination, intermittent coughing secondary COVID, patient was assessed by PEÑA, disposition section 12 inpatient bed search, VSS, will continue to monitor.
--- NOTE | 2021-05-22 07:17 | PC.NURSE ---
patient appears to remain asleep at present respirations are even and unlabored, patient appears in no distress
[2021-05-22] MEDS: LORazepam 1 MG TABLET PO (07:52)
[2021-05-22] MEDS: Sertraline HCL 100 MG TABLET 200 MG PO (07:52)
[2021-05-22] MEDS: lamoTRIgine 100 MG TABLET 150 MG PO (07:52)
[2021-05-22] MEDS: traMADoL HCL 50 MG TABLET PO (07:52)
[2021-05-22] MEDS: busPIRone HCl 5 MG TABLET 15 MG PO (07:52)
[2021-05-22] MEDS: Gabapentin 600 MG TABLET PO (07:52)
== END 2021-05-22 10:36 | disposition home or self-care (01) ==
PROVIDERS: Physician Assistant; Emergency Provider Internal Medicine
DX: U07.1 COVID-19 (principal); F32.A Depression, unspecified; R45.851 Suicidal ideations; F10.20 Alcohol dependence, uncomplicated; Y90.6 Blood alcohol level of 120-199 mg/100 ml; F41.9 Anxiety disorder, unspecified; F43.10 Post-traumatic stress disorder, unspecified; M54.50 Low back pain, unspecified; Z91.51 Personal history of suicidal behavior; Z79.899 Other long term (current) drug therapy
CPT/HCPCS: 70450; 72125; 74176; 80053; 80307; 81003; 81025; 82077; 85025; 87635; 93005; 94640; 96372; 99285; J1885

== ENCOUNTER 2022-02-15 12:33 | Emergency (ER) | payer MEDICAID, SELFPAY ==
[2022-02-15 12:37] VITALS: BP 152/98; PULSE 87; RESP 18; TEMP 37.2; O2SAT 97; BMI 30.4
--- OUTSIDE RECORDS SUMMARY | 2022-02-15 13:58 | XMS_ITS | Continuity of Care Document ---
:1980 Author Organization [facility] Address [address] [place] [address]- Care Team Providers Name Role Phone Kadie Weir MD Primary Care Physician [id number] Date(s): 07/03/19 - 08/07/[address] [address] [facility] Attending Physician: Kadie Weir MD Allergies, Adverse Reactions, Alerts Substance Reaction Severity Status acetaminophen Active Bee Stings Active Pollen Active Immunizations Given and Recorded Vaccine Date Status Refusal Reason influenza virus vaccine, inactivated 04/20/17 Given tetanus/diphtheria/pertussis, acel(Tdap) 04/20/17 Given pneumococcal 23-valent vaccine 07/21/16 Given Not Given Vaccine Date Status Refusal Reason pneumococcal 23-valent vaccine 01/07/15 Not Given P atient Refuses pneumococcal 23-valent vaccine 11/15/14 Not Given P atient Refuses pneumococcal 23-valent vaccine 09/27/14 Not Given P atient Refuses pneumococcal 23-valent vaccine 07/05/14 Not Given P arent Or Guardian Refuses Medications Multivitamin By Mouth, Daily, 0 Refills, Maintenance, 01/01/16 10:32:40 Start Date: 01/01/16 Status: Ordered Problem List Condition Effective Dates Status Health Status Informant Abnormal uterine bleeding(Confirmed) Active Acute pancreatitis(Confirmed) Active Alcohol use disorder, severe, in early Active remission, in controlled environment, dependence(Confirmed) Alcoholic hepatitis(Confirmed) Active Alcoholic liver disease(Confirmed) Active Mass of right breast(Confirmed) Active Alcohol dependence in early, early Active partial, sustained full, or sustained partial remission(Confirmed) Chronic low back pain(Confirmed) Active Pancreatitis, chronic(Confirmed) Active Depression(Confirmed) Active Endometriosis(Confirmed) Active Abdominal pain, epigastric(Confirmed) Active Gastritis(Confirmed) Active Iron deficiency anemia(Confirmed) Active Low back pain without Active sciatica(Confirmed) Macrocytic anemia(Confirmed) Active Menometrorrhagia(Confirmed) Active Mood disorder(Confirmed) Active Encounter for preventive health Active examination(Confirmed) Post traumatic stress disorder Active (PTSD)(Confirmed) Major depressive disorder, recurrent Active episode, moderate degree(Confirmed) Severe alcohol dependence(Confirmed) Active Sprain of ribs(Confirmed) Active Social History Social History Type Response Smoking Status Current every day smoker; To bacco user in household: Yes entered on: 05/01/14 Sex
--- OUTSIDE RECORDS SUMMARY | 2022-02-15 13:58 | XMS_ITS | Continuity of Care Document ---
:1980 Author Organization [facility] Address [address] [place] [address]- Care Team Providers Name Role Phone Georgiana Cleveland NP Primary Care Physician [facility] Date(s): 03/10/20 - 03/17/20 [facility] [address] [place] [address] Attending Physician: Checo Landeros MD Referring Physician: Georgiana Cleveland NP Allergies, Adverse Reactions, Alerts Substance Reaction Severity [...] Given P arent Or Guardian Refuses Medications Cymbalta Capsule By Mouth, 0 Refills, Maintenance, 03/06/20 14:42:00 EDT Start Date: 03/06/20 Status: Orderedmultivitamin Multiple Vitamins oral tablet 1 tablet, By Mouth, Daily, # 30 tablet, 1 Refills, Maintenance, 10/01/19 11:23:00 EDT, Tablet, [id number], 1 tablet By Mouth Daily,x30 days, 165.1, cm, 10/01/19 8:37:00 EDT, Height, 80.1, kg, 09/19/19 16:30:00 EDT, Dry Weight Start Date: 10/01/19 Stop Date: 11/30/19 Status: Orderedpantoprazole 40 mg oral delayed release tablet 1 tablet, By Mouth, Daily, # 30 tablet, 3 Refills, Maintenance, 03/06/20 15:13:00 EDT, 164, cm, 03/06/20 14:39:00 EDT, Height, 91.1, kg, 02/09/20 2:54:00 EDT, Dry Weight Start Date: 03/06/20 Status: Ordered Problem List Condition Effective Dates Status Health Status Informant Abnormal uterine bleeding(Confirmed) Active Acute pancreatitis(Confirmed) Active Alcohol use disorder, severe, in early Active remission, in controlled environment, dependence(Confirmed) Alcohol dependence(Confirmed) Active Alcohol withdrawal-induced Active seizure(Confirmed)1 Alcoholic hepatitis(Confirmed) Active Alcoholic liver disease(Confirmed) Active Attempted suicide - hanging(Confirmed) 06/27/19 Active Mass of right breast(Confirmed) Active Alcohol [...] alcohol dependence(Confirmed) Active Sprain of ribs(Confirmed) Active 1Reports HX several times previously Vital Signs Most recent to oldest [Reference Range]: 1 Height 164 cm (03/10/20 1:09 PM) Weight 92.2 kg (03/10/20 1:09 PM) Oxygen Saturation [94-100 %] 94 % (03/10/20 1:09 PM) Pulse Rate [55-90 bpm] 99 bpm *H* (03/10/20 1:09 PM) Body Mass Index [18.5-24.99] 34.28 *>HHI* (03/10/20 1:09 PM) Blood Pressure [90-138/55-84 mm Hg] 136/93 mm Hg (03/10/20 1:09 PM) Temperature [96.8-100.4 DegF] 98.9 DegF (03/10/20 1:09 PM) Blood pressure sites Arm, left (03/10/20 1:09 PM) Temperature Route Temporal (03/10/20 1:09 PM) Social History Social History Type Response Smoking Status Current every day smoker; To bacco user in household: Yes entered on: 05/01/14 Sex
--- OUTSIDE RECORDS SUMMARY | 2022-02-15 13:58 | XMS_ITS | Continuity of Care Document ---
:1980 Author Organization [facility] Address [address] [place] [address]- Care Team Providers Name Role Phone Cristofer GALLEGOS, Georgiana Vigil Primary Care Physician Encounter [facility] Date(s): 12/02/19 - 01/01/[address] [address]- [facility] Allergies, Adverse Reactions, Alerts Substance Reaction Severity [...] Given P arent Or Guardian Refuses Medications multivitamin Multiple Vitamins oral tablet 1 tablet, By Mouth, Daily, # 30 tablet, 1 Refills, Maintenance, 10/01/19 11:23:00 EDT, Tablet, GENOAMatthew Kenney CuisineOz[facility]-, 1 tablet By Mouth Daily,x30 days, 165.1, cm, 10/01/19 8:37:00 EDT, Height, 80.1, kg, 09/19/19 16:30:00 EDT, Dry Weight Start Date: 10/01/19 Stop Date: 11/30/19 Status: Ordered Problem List Condition Effective Dates [...]
--- OUTSIDE RECORDS SUMMARY | 2022-02-15 13:58 | XMS_ITS | Continuity of Care Document ---
:1980 Author Organization [facility] Address [address] [place] [address]- Care Team Providers Name Role Phone Kadie Weir MD Primary Care Physician Encounter [facility] NBR [id number] Date(s): 07/09/19 - 07/19/[address] [address]- [facility] Attending Physician: Gualberto Moralez Admitting Physician: Gualberto Moralez Referring Physician: AdmtrGualberto Allergies, Adverse Reactions, Alerts Substance Reaction Severity [...]
--- OUTSIDE RECORDS SUMMARY | 2022-02-15 13:58 | XMS_ITS | Continuity of Care Document ---
:1980 Author Organization [facility] Address [address] [place] [address]- Care Team Providers Name Role Phone Cristofer GALLEGOS, Georgiana Vigil Primary Care Physician [id number] Date(s): 09/22/20 - 12/05/[address] [address] Attending Physician: Not on Staff, Attending MD Referring Physician: Sonja Chris NP Allergies, Adverse Reactions, Alerts Substance Reaction Severity Status ibuprofen Active acetaminophen Active Bee Stings Active Pollen Active Immunizations Given and Recorded Vaccine Date Status Refusal Reason influenza virus vaccine, inactivated 02/12/20 Recorded influenza virus vaccine, inactivated 04/20/17 Given tetanus/diphtheria/pertussis, [...] 1 Refills, Maintenance, 10/01/19 11:23:00 EDT, Tablet, [facility]-, 1 tablet By Mouth Daily,x30 days, [...] ribs(Confirmed) Active 1Reports HX several times previously Social History Social History Type Response Smoking Status Current every day smoker; To bacco user in household: Yes entered on: 05/01/14 Sex
--- OUTSIDE RECORDS SUMMARY | 2022-02-15 13:58 | XMS_ITS | Continuity of Care Document ---
:1980 Author Organization [facility] Address [address] [place] [address]- Care Team Providers Name Role Phone Cristofer GALLEGOS, Georgiana Vigil Primary Care Physician Encounter [facility] Date(s): 07/02/20 - 08/01/[address] [address]- Allergies, Adverse Reactions, Alerts Substance Reaction Severity [...] 1 Refills, Maintenance, 10/01/19 11:23:00 EDT, Tablet, [facility]-, 1 tablet By Mouth Daily,x30 days, [...]
--- OUTSIDE RECORDS SUMMARY | 2022-02-15 13:58 | XMS_ITS | Continuity of Care Document ---
:1980 Author Organization [facility] Address [address] [place] [address], [address] [place] [address]- Care Team Providers Name Role Phone Cristfoer GALLEGOS, Georgiana Vigil Primary Care Physician Encounter [facility] Date(s): 10/06/20 - 11/05/20 [facility] [address] [address] Allergies, Adverse Reactions, Alerts Substance Reaction Severity [...] 1 Refills, Maintenance, 10/01/19 11:23:00 EDT, Tablet, [facility]-, 1 tablet By Mouth Daily,x30 days, [...]
--- OUTSIDE RECORDS SUMMARY | 2022-02-15 13:58 | XMS_ITS | Continuity of Care Document ---
:1980 Author Organization [facility] Address [address] [place] [address]- Care Team Providers Name Role Phone Cristofer GALLEGOS, Georgiana Vigil Primary Care Physician Encounter [facility] Date(s): 12/26/19 - 01/25/[address] [address]- [facility] Allergies, Adverse Reactions, Alerts Substance Reaction Severity [...] 1 Refills, Maintenance, 10/01/19 11:23:00 EDT, Tablet, Qliance Medical ManagementOAUbertestersAlvin J. [facility]-, 1 tablet By Mouth Daily,x30 days, 165.1, [...]
--- OUTSIDE RECORDS SUMMARY | 2022-02-15 13:58 | XMS_ITS | Continuity of Care Document ---
:1980 Author Organization [facility] Address [address] [place] [address]- Care Team Providers Name Role Phone Cristofer GALLEGOS, Georgiana Vigil Primary Care Physician Encounter [facility] Date(s): 09/23/20 - 10/23/[address] [address] Allergies, Adverse Reactions, Alerts Substance Reaction Severity [...] 1 Refills, Maintenance, 10/01/19 11:23:00 EDT, Tablet, [facility]ople[facility]-, 1 tablet By Mouth Daily,x30 days, [...]
--- OUTSIDE RECORDS SUMMARY | 2022-02-15 13:58 | XMS_ITS | Continuity of Care Document ---
:1980 Author [facility] Address [address] [place] [address]- Care Team Providers Name Role Phone Jose Maria GALLEGOS, Unruly Herbert Primary Care Physician Encounter [facility] Date(s): 03/04/19 - 05/23/19 [facility] WillCall[facility] [address] [address]- Attending Physician: Martha Caban MD Allergies, Adverse Reactions, Alerts Substance Reaction [...] Given P arent Or Guardian Refuses Medications ARIPiprazole 2 mg oral tablet 2 mg, 1, tablet, By Mouth, Daily, NEXT APPOINTMENT -05/21/2019, # 30 tablet, Refills 1, Tot. Refills 1, Maintenance, 05/07/19 16:39:00 EST, Route to Pharmacy Electronically, [id number], cm, 04/01/19 20:13:00 EST, Height, 80.9, kg,... Start Date: 05/07/19 Status: OrderedMultivitamin By Mouth, Daily, 0 Refills, Maintenance, 01/01/16 [...] Active Gastritis(Confirmed) Active Iron deficiency anemia(Confirmed) Active Macrocytic anemia(Confirmed) Active Menometrorrhagia(Confirmed) Active Mood disorder(Confirmed) [...]
--- OUTSIDE RECORDS SUMMARY | 2022-02-15 13:58 | XMS_ITS | Continuity of Care Document ---
:1980 Author Organization [facility] Address [address] [place] [address]- Care Team Providers Name Role Phone Cristofer GALLEGOS, Georgiana Vigil Primary Care Physician Encounter [facility] Date(s): 09/30/20 - 10/30/[address] [address] Allergies, Adverse Reactions, Alerts Substance Reaction [...] 1 Refills, Maintenance, 10/01/19 11:23:00 EDT, Tablet, [facility]-, 1 tablet By Mouth Daily,x30 [...]
--- OUTSIDE RECORDS SUMMARY | 2022-02-15 13:58 | XMS_ITS | Continuity of Care Document ---
:1980 Author Organization [facility] Address [address] [place] [address]- Care Team Providers Name Role Phone Cristofer GALLEGOS, Georgiana Vigil Primary Care Physician Encounter [facility] Date(s): 09/24/20 - 10/24/[address] [address] Allergies, Adverse Reactions, Alerts Substance Reaction Severity [...] 1 Refills, Maintenance, 10/01/19 11:23:00 EDT, Tablet, ContraVir PharmaceuticalsHeartland Behavioral [facility]-, 1 tablet By Mouth Daily,x30 days, 165.1, [...]
--- OUTSIDE RECORDS SUMMARY | 2022-02-15 13:58 | XMS_ITS | Continuity of Care Document ---
:1980 Author Organization [facility] Address [address] [place] [address]- Care Team Providers Name Role Phone Cristofer GALLEGOS, Georgiana Vigil Primary Care Physician Encounter [facility] Date(s): 06/29/20 - 07/29/20 [facility] [address] [place] [address] Attending Physician: Admpeggy, Gualberto Admitting Physician: AdmtrGualberto Referring Physician: Admtr, Ar8 Allergies, Adverse Reactions, Alerts Substance Reaction Severity [...] 1 Refills, Maintenance, 10/01/19 11:23:00 EDT, Tablet, [facility]-[address], 1 tablet By Mouth Daily,x30 days, 165.1, [...]
--- OUTSIDE RECORDS SUMMARY | 2022-02-15 13:59 | XMS_ITS | Continuity of Care Document ---
:1980 Author Organization [facility] Address [address] [place] [address]- Care Team Providers Name Role Phone Lovely BUTTERFIELD, Sagar Vigil Primary Care Physician [facility] Date(s): 03/26/21 - 05/06/[address] [address] Attending Physician: Carmella BUTTERFIELD, Kadie Hernandez Allergies, Adverse Reactions, Alerts Substance Reaction Severity [...] 1 Refills, Maintenance, 10/01/19 11:23:00 EDT, Tablet, [facility]-, 1 tablet By Mouth Daily,x30 days, [...]
--- OUTSIDE RECORDS SUMMARY | 2022-02-15 13:59 | XMS_ITS | Continuity of Care Document ---
:1980 Author Organization [facility] Address [address] [place] [address]- Care Team Providers Name Role Phone Carmella BUTTERFIELD, Kadie Hernandez Primary Care Physician Encounter [facility] Date(s): 07/24/19 - 08/24/[address] [address] [facility] Attending Physician: Georgiana Cleveland NP Allergies, Adverse Reactions, [...]
--- OUTSIDE RECORDS SUMMARY | 2022-02-15 13:59 | XMS_ITS | Continuity of Care Document ---
:1980 Author Organization [facility] Address [address] [place] [address]- Care Team Providers Name Role Phone Lovely BUTTERFIELD, Sagar Vigil Primary Care Physician Encounter [facility] Date(s): 04/26/21 - 06/26/[address] [address] Attending Physician: Carmella BUTTERFIELD, Kadie Hernandez Allergies, [...] 1 Refills, Maintenance, 10/01/19 11:23:00 EDT, Tablet, [facility]-, 1 tablet By Mouth Daily,x30 days, [...]
--- OUTSIDE RECORDS SUMMARY | 2022-02-15 13:59 | XMS_ITS | Continuity of Care Document ---
:1980 Author Organization [facility] Address [address] [place] [address]- Care Team Providers Name Role Phone Sagar Murry MD Primary Care Physician Encounter [facility] NBR [id number] Date(s): 03/26/21 - 05/27/21 [facility] [address] [place] [address]- Encounter Diagnosis Abdominal pain, epigastric (Discharge Diagnosis) - 04/27/21 Abnormal uterine bleeding (Discharge Diagnosis) - 04/27/21 Alcohol dependence (Discharge Diagnosis) - 04/27/21 Alcohol withdrawal-induced seizure (Discharge Diagnosis) - 04/27/21 Alcoholic liver disease (Discharge Diagnosis) - 04/27/21 Attempted suicide - hanging (Discharge Diagnosis) - 04/27/21 Iron deficiency anemia (Discharge Diagnosis) - 04/27/21 Macrocytic anemia (Discharge Diagnosis) - 04/27/21 Pancreatitis, chronic (Discharge Diagnosis) - 04/27/21 Post traumatic stress disorder (PTSD) (Discharge Diagnosis) - 04/27/21 Attending Physician: Sagar Murry MD Allergies, Adverse Reactions, Alerts Substance Reaction [...] 1 Refills, Maintenance, 10/01/19 11:23:00 EDT, Tablet, [facility], 1 tablet By Mouth Daily,x30 days, 165.1, [...] ribs(Confirmed) Active 1Reports HX several times previously Diagnosis Diagnosis Type Effective Dates Health Clinical Infor mant Status Service Abdominal pain, Discharge 04/27/21 epigastric Diagnosis Abnormal uterine Discharge 04/27/21 bleeding Diagnosis Alcohol Discharge 04/27/21 dependence Diagnosis Alcohol Discharge 04/27/21 withdrawal-induce Diagnosis d seizure Alcoholic liver Discharge 04/27/21 disease Diagnosis Attempted suicide Discharge 04/27/21 - hanging Diagnosis Iron deficiency Discharge 04/27/21 anemia Diagnosis Macrocytic anemia Discharge 04/27/21 Diagnosis Pancreatitis, Discharge 04/27/21 chronic Diagnosis Post traumatic Discharge 04/27/21 stress disorder Diagnosis (PTSD) Social History Social History Type Response Smoking Status Current every day smoker; To bacco user in household: Yes entered on: 05/01/14 Sex
--- OUTSIDE RECORDS SUMMARY | 2022-02-15 13:59 | XMS_ITS | Continuity of Care Document ---
:1980 Author Organization [facility] Address [address] [place] [address]- Care Team Providers Name Role Phone Georgiana Cleveland NP Primary Care Physician [id number] Date(s): 03/31/20 - 09/27/[address] [address] Attending Physician: Georgiana Cleveland NP Allergies, Adverse [...] 1 Refills, Maintenance, 10/01/19 11:23:00 EDT, Tablet, [facility], 1 tablet By Mouth Daily,x30 days, 165.1, [...]
--- OUTSIDE RECORDS SUMMARY | 2022-02-15 13:59 | XMS_ITS | Continuity of Care Document ---
:1980 Author Organization [facility] Address [address] [place] [address]- Care Team Providers Name Role Phone Cristofer GALLEGOS, Georgiana Vigil Primary Care Physician Encounter [facility] Date(s): 03/16/20 - 04/15/[address] [address] Allergies, Adverse Reactions, Alerts Substance Reaction [...] 1 Refills, Maintenance, 10/01/19 11:23:00 EDT, Tablet, [facility]-, 1 tablet By Mouth Daily,x30 [...]
--- OUTSIDE RECORDS SUMMARY | 2022-02-15 13:59 | XMS_ITS | Continuity of Care Document ---
:1980 Author Organization [facility] Address [address] [place] [address]- Care Team Providers Name Role Phone Darryn GALLEGOS, Antonia Saldana Primary Care Physician Encounter [facility] Date(s): 12/30/20 - 01/29/[address] [address] Allergies, Adverse Reactions, Alerts Substance Reaction [...] 1 Refills, Maintenance, 10/01/19 11:23:00 EDT, Tablet, [facility]driveMer[facility], 1 tablet By Mouth Daily,x30 days, 165.1, [...]
--- OUTSIDE RECORDS SUMMARY | 2022-02-15 13:59 | XMS_ITS | Continuity of Care Document ---
:1980 Author Organization [facility] Address [address] [place] [address]- Care Team Providers Name Role Phone Cristofer GALLEGOS, Georgiana Vigil Primary Care Physician Encounter [facility] Date(s): 11/02/20 - 12/02/[address] [address] Allergies, Adverse Reactions, Alerts Substance Reaction [...] 1 Refills, Maintenance, 10/01/19 11:23:00 EDT, Tablet, [facility]-, 1 tablet By Mouth Daily,x30 days, 165.1, [...]
--- OUTSIDE RECORDS SUMMARY | 2022-02-15 13:59 | XMS_ITS | Continuity of Care Document ---
:1980 Author Organization [facility] Address [address] [place] [address]- Care Team Providers Name Role Phone Cristofer GALLEGOS, Georgiana Vigil Primary Care Physician Encounter [facility] Date(s): 09/18/20 - 10/18/[address] [address] Allergies, Adverse Reactions, Alerts Substance Reaction [...] 1 Refills, Maintenance, 10/01/19 11:23:00 EDT, Tablet, [employer] [facility]-, 1 tablet By Mouth Daily,x30 days, 165.1, [...]
--- OUTSIDE RECORDS SUMMARY | 2022-02-15 13:59 | XMS_ITS | Continuity of Care Document ---
:1980 Author Organization [facility] Address [address] [place] [address]- Care Team Providers Name Role Phone Georgiana Cleveland NP Primary Care Physician Encounter [facility] Date(s): 03/16/20 - 04/24/20 [facility] [address] [place] [address]- Attending Physician: Yamilet BUTTERFIELD, Joey Clinton Referring Physician: Georgiana Cleveland NP Allergies, Adverse [...] 03/06/20 14:42:00 EDT Start Date: 03/06/20 Status: OrderedMacrobid macrocrystals-monohydrate 100 mg oral capsule 1 capsule = 100 mg, By Mouth, 2 times a day, for 5 days, # 10 capsule, 0 Refills, Acute 04/27/20 21:31:00 EST, 04/22/20 21:31:00 EST, Capsule, [id number], Partial fill upon patient request if the prescription is for a schedule II opio... Start Date: 04/22/20 Stop Date: 04/27/20 Status: Orderedmultivitamin Multiple Vitamins oral tablet 1 tablet, By Mouth, Daily, # 30 tablet, 1 Refills, Maintenance, 10/01/19 11:23:00 EDT, Tablet, GENMANUELV2contactC[facility]-, 1 tablet By Mouth Daily,x30 days, 165.1, [...]
--- OUTSIDE RECORDS SUMMARY | 2022-02-15 13:59 | XMS_ITS | Continuity of Care Document ---
:1980 Author Organization [facility] Address [address] [place] [address]- Care Team Providers Name Role Phone Cristofer GALLEGOS, Georgiana Vigil Primary Care Physician [facility] [id number] Date(s): 12/04/20 - 01/03/[address] [address] Attending Physician: Gualberto Moralez Admitting Physician: AdmGualberto woods Referring Physician: AdmtrGualberto Allergies, Adverse Reactions, Alerts [...] 1 Refills, Maintenance, 10/01/19 11:23:00 EDT, Tablet, [facility]-, 1 tablet By Mouth Daily,x30 days, [...]
--- OUTSIDE RECORDS SUMMARY | 2022-02-15 13:59 | XMS_ITS | Continuity of Care Document ---
:1980 Author Organization [facility] Address [address] [place] [address]- Care Team Providers Name Role Phone Critsofer GALLEGOS, Georgiana Vigil Primary Care Physician Encounter [facility] Date(s): 12/02/19 - 01/01/[address] [address] [facility] Allergies, Adverse Reactions, Alerts Substance Reaction Severity [...] 1 Refills, Maintenance, 10/01/19 11:23:00 EDT, Tablet, GENOADashbellAlvin J. [facility]-, 1 tablet By [...]
--- OUTSIDE RECORDS SUMMARY | 2022-02-15 13:59 | XMS_ITS | Continuity of Care Document ---
:1980 Author Organization [facility] Address [address] [place] [address]- Care Team Providers Name Role Phone Lovely BUTTERFIELD, Sagar Vigil Primary Care Physician Encounter [facility] Date(s): 05/27/21 - 06/26/[address] [address] Attending Physician: Gualberto Moralez Admitting Physician: Gualberto [...] 1 Refills, Maintenance, 10/01/19 11:23:00 EDT, Tablet, GENOAAnpath GroupNorth [facility]-, 1 tablet By Mouth Daily,x30 days, [...]
--- OUTSIDE RECORDS SUMMARY | 2022-02-15 13:59 | XMS_ITS | Continuity of Care Document ---
:1980 Author Organization [facility] Address [address] [place] [address]- Care Team Providers Name Role Phone Cristofer GALLEGOS, Georgiana Vigil Primary Care Physician Encounter [facility] Date(s): 09/18/20 - 10/18/[address] [address] Allergies, Adverse Reactions, Alerts Substance [...] 1 Refills, Maintenance, 10/01/19 11:23:00 EDT, Tablet, [facility] 1 tablet By Mouth Daily,x30 days, [...]
--- OUTSIDE RECORDS SUMMARY | 2022-02-15 13:59 | XMS_ITS | Continuity of Care Document ---
:1980 Author Organization [facility] Address [address] [place] [address]- Care Team Providers Name Role Phone Carmella BUTTERFIELD, Kadie Hernandez Primary Care Physician [id number] Date(s): 07/23/19 - 07/30/19 [facility] [address] [place] [address]- [facility] Encounter Diagnosis Chronic low back pain (Discharge Diagnosis) - 07/23/19 Sacroiliac joint dysfunction of both sides (Discharge Diagnosis) - 07/23/19 Attending Physician: Leti BUTTERFIELD, Checo Sandoval Referring Physician: Unruly Moise NP Allergies, Adverse Reactions, Alerts Substance Reaction [...] alcohol dependence(Confirmed) Active Sprain of ribs(Confirmed) Active Diagnosis Diagnosis Type Effective Dates Health Clinical Infor mant Status Service Chronic low back Discharge 07/23/19 pain Diagnosis Sacroiliac joint Discharge 07/23/19 dysfunction of Diagnosis both sides Vital Signs Most recent to oldest [Reference Range]: 1 Height 165 cm (07/23/19 3:08 PM) Weight 81.4 kg (07/23/19 3:08 PM) Oxygen Saturation [94-100 %] 96 % (07/23/19 3:08 PM) Pulse Rate [55-90 bpm] 89 bpm (07/23/19 3:08 PM) Body Mass Index [18.5-24.99] 29.9 *H* (07/23/19 3:08 PM) Blood Pressure [90-138/55-84 mm Hg] 116/73 mm Hg (07/23/19 3:08 PM) Temperature [96.8-100.4 DegF] 98.3 DegF (07/23/19 3:08 PM) Blood pressure sites Arm, left (07/23/19 3:08 PM) Temperature Route Temporal (07/23/19 3:08 PM) Social History Social History Type Response Smoking Status Current every day smoker; To bacco user in household: Yes entered on: 05/01/14 Sex
--- OUTSIDE RECORDS SUMMARY | 2022-02-15 13:59 | XMS_ITS | Continuity of Care Document ---
:1980 Author Organization [facility] Address [address] [place] [address]- Care Team Providers Name Role Phone Cristofer GALLEGOS, Georgiana Vigil Primary Care Physician Encounter [facility] [id number] Date(s): 06/05/19 - 06/15/19 [facility] [address] [place] [address]- [facility] Attending Physician: Gualberto Moralez Admitting Physician: AdmGualberto woods Referring Physician: Admtr ArMargarita Allergies, Adverse Reactions, Alerts Substance Reaction Severity [...] 05/07/19 16:39:00 EST, Route to Pharmacy Electronically, [facility][id number],165, cm, 04/01/19 20:13:00 EST, Height, 80.9, kg,... [...]
--- OUTSIDE RECORDS SUMMARY | 2022-02-15 13:59 | XMS_ITS | Continuity of Care Document ---
:1980 Author Organization [facility] Address [address] [place] [address]- Care Team Providers Name Role Phone Cristofer GALLEGOS, Georgiana Vigil Primary Care Physician Encounter [facility] Date(s): 02/03/20 - 03/04/[address] [address]- [facility] Allergies, Adverse [...] 1 Refills, Maintenance, 10/01/19 11:23:00 EDT, Tablet, [facility]AL[facility]-, 1 tablet By Mouth Daily,x30 days, [...]
--- OUTSIDE RECORDS SUMMARY | 2022-02-15 13:59 | XMS_ITS | Continuity of Care Document ---
:1980 Author Organization [facility] [employer] Address [address] [place] [address]- Care Team Providers Name Role Phone Cristofer GALLEGOS, Georgiana Vigil Primary Care Physician [facility] Date(s): 10/28/20 - 11/27/20 [facility] [employer] [address] [place] [address] Attending Physician: Gualberto Moralez Admitting Physician: Gualberto [...] 1 Refills, Maintenance, 10/01/19 11:23:00 EDT, Tablet, Fl[facility]ish [facility]-, 1 tablet By Mouth Daily,x30 [...]
--- OUTSIDE RECORDS SUMMARY | 2022-02-15 13:59 | XMS_ITS | Continuity of Care Document ---
:1980 Author Organization [facility] Address [address] [place] [address]- Care Team Providers Name Role Phone Cristofer GALLEGOS, Georgiana Vigil Primary Care Physician [facility] Date(s): 11/03/20 - 01/03/[address] [address] Attending Physician: Sonja Chris NP Allergies, Adverse Reactions, [...] 1 Refills, Maintenance, 10/01/19 11:23:00 EDT, Tablet, [facility]-, 1 tablet By Mouth Daily,x30 days, [...]
--- OUTSIDE RECORDS SUMMARY | 2022-02-15 13:59 | XMS_ITS | Continuity of Care Document ---
:1980 Author Organization [facility] [employer] [facility] Address [address] [place] [address]- Care Team Providers Name Role Phone Cristofer GALLEGOS, Georgiana Vigil Primary Care Physician Encounter [facility] Date(s): 10/06/20 - 11/27/20 [facility] Ana Cristina [employer] [address] [address] Attending Physician: Monique Hanley MD Admitting Physician: Monique Hanley MD Referring Physician: Georgiana Cleveland NP Allergies, [...] 1 Refills, Maintenance, 10/01/19 11:23:00 EDT, Tablet, [facility]-, 1 tablet By Mouth Daily,x30 days, [...]
--- OUTSIDE RECORDS SUMMARY | 2022-02-15 13:59 | XMS_ITS | Continuity of Care Document ---
:1980 Author Organization [facility] Address [address] [place] [address]- Care Team Providers Name Role Phone Cristofer GALLEGOS, Georgiana Vigil Primary Care Physician Encounter [facility] Date(s): 03/11/20 - 05/14/20 [facility] [address] [place] [address] Attending Physician: Checo Landeros MD Allergies, Adverse Reactions, Alerts Substance Reaction [...] 1 Refills, Maintenance, 10/01/19 11:23:00 EDT, Tablet, [facility]-, 1 tablet By Mouth [...]
--- OUTSIDE RECORDS SUMMARY | 2022-02-15 13:59 | XMS_ITS | Continuity of Care Document ---
:1980 Author Organization [facility] Address [address] [place] [address]- Care Team Providers Name Role Phone Cristofer GALLEGOS, Georgiana Vigil Primary Care Physician Encounter [facility] Date(s): 12/11/19 - 01/10/20 [facility] [address] [place] [address]- [facility] Attending Physician: Gualberto Moralez Admitting Physician: AdmtrGualberto Referring Physician: Admtr, Ar8 [...] 1 Refills, Maintenance, 10/01/19 11:23:00 EDT, Tablet, [facility]-, 1 tablet By Mouth Daily,x30 [...]
--- OUTSIDE RECORDS SUMMARY | 2022-02-15 13:59 | XMS_ITS | Continuity of Care Document ---
:1980 Author Organization [facility] Address [address] [place] [address]- Care Team Providers Name Role Phone Carmella BUTTERFIELD, Kadie Hernandez Primary Care Physician Encounter [facility] Date(s): 07/23/19 - 08/02/19 [facility] [address] [place] [address]- [facility] Attending Physician: Gualberto Moralez Admitting Physician: Gualberto Moralez Referring Physician: Gualberto Moralez Allergies, Adverse Reactions, Alerts Substance Reaction Severity [...]
--- OUTSIDE RECORDS SUMMARY | 2022-02-15 14:00 | XMS_ITS | Continuity of Care Document ---
:1980 Author Organization [facility] Address [address] [place] [address]- Care Team Providers Name Role Phone Cristofer GALLEGOS, Georgiana Vigil Primary Care Physician [facility] Date(s): 04/14/20 - 06/13/20 [facility] [address] [place] [address] Attending Physician: Sherice Portillo Allergies, Adverse Reactions, Alerts Substance Reaction Severity [...] 1 Refills, Maintenance, 10/01/19 11:23:00 EDT, Tablet, [id number], 1 tablet By Mouth Daily,x30 days, 165.1, [...]
--- OUTSIDE RECORDS SUMMARY | 2022-02-15 14:00 | XMS_ITS | Continuity of Care Document ---
:1980 Author Organization [facility] Address [address] [place] [address]- Care Team Providers Name Role Phone Cristofer GALLEGOS, Georgiana Vigil Primary Care Physician [facility] Date(s): 03/19/20 - 04/18/20 [facility] [address] [place] [address] Attending Physician: Gualberto Moralez Admitting Physician: AdmtrGualberto [...] Refills, Maintenance, 10/01/19 11:23:00 EDT, Tablet, [facility]-, 1 tablet By Mouth Daily,x30 days, [...]
--- OUTSIDE RECORDS SUMMARY | 2022-02-15 14:00 | XMS_ITS | Continuity of Care Document ---
:1980 Author Organization [facility] Address [address] [place] [address]- Care Team Providers Name Role Phone Cristofer GALLEGOS, Georgiana Vigil Primary Care Physician Encounter [facility] Date(s): 10/05/19 - 10/06/[address] [address]- [facility] Discharge Disposition: A-D/C Home Attending Physician: Jase Sanchez MD Admitting Physician: Jase Sanchez MD Referring Physician: Not on Staff, Referring MD Allergies, Adverse Reactions, Alerts Substance Reaction [...] Given P arent Or Guardian Refuses Medications Abilify 10 mg oral tablet 10 mg, 1, tablet, By Mouth, Daily at bedtime, # 30 tablet, Refills 1, Tot. Refills 1, Maintenance, 10/01/19 11:24:00 EDT, Route to Pharmacy Electronically, [facility], 165.1, cm, 10/01/19 8:37:00 EDT, Height, 80.1, kg, ... Start Date: 10/01/19 Stop Date: 11/30/19 Status: OrderedAtivan 1 mg oral tablet 1 tablet = 1 mg, By Mouth, 2 times a day, for 21 days, # 42 tablet, 2 Refills, Acute 02/01/20 11:23:00 EDT, 11/30/19 11:23:00 EDT, [id number], 165.1, cm, 10/01/19 8:37:00 EDT, Height, 80.1, kg, 09/19/19 16:30:00 EDT, Dry Weight Start Date: 11/30/19 Stop Date: 02/01/20 Status: OrderedAtivan 1 mg oral tablet 1 tablet = 1 mg, By Mouth, 2 times a day, for 30 days, # 60 tablet, 1 Refills, Acute 11/30/19 11:23:00 EDT, 10/01/19 11:23:00 EDT, Tablet, [facility], 165.1, cm, 10/01/19 8:37:00 EDT, Height, 80.1, kg, 09/19/19 16:30:00 EDT, D... Start Date: 10/01/19 Stop Date: 11/30/19 Status: OrderedbusPIRone 15 mg oral tablet 1 tablet = 15 mg, By Mouth, 3 times a day, # 90 tablet, 1 Refills, Maintenance, 10/01/19 11:25:00 EDT, Tablet, [facility], 165.1, cm, 10/01/19 8:37:00 EDT, Height, 80.1, kg, 09/19/19 16:30:00 EDT, Dry Weight Start Date: 10/01/19 Stop Date: 11/30/19 Status: Ordereddoxepin 50 mg oral capsule 1 capsule = 50 mg, By Mouth, Daily at bedtime, # 30 capsule, 2 Refills, Maintenance, 10/01/19 11:22:00 EDT, Capsule, [facility], 165.1, cm, 10/01/19 8:37:00 EDT, Height, 80.1, kg, 09/19/19 16:30:00 EDT, Dry Weight Start Date: 10/01/19 Stop Date: 12/30/19 Status: OrderedFlonase 50 mcg/inh nasal spray 1 sprays = 50 mcg, Nares, Both, 2 times a day, # 9.9 mL, 0 Refills, Maintenance, 10/01/19 11:22:00 EDT, Nasal [place], [facility], 1 sprays Nares, Both 2 times a day,x30 days, 165.1, cm, 10/01/19 8:37:00 EDT, Height, 80.1, kg, 0... Start Date: 10/01/19 Stop Date: 10/31/19 Status: Orderedgabapentin 600 mg oral tablet 1 tablet = 600 mg, By Mouth, 4 times a day, # 120 tablet, 1 Refills, Maintenance, 10/01/19 11:25:00 EDT, Tablet, [facility], 165.1, cm, 10/01/19 8:37:00 EDT, Height, 80.1, kg, 09/19/19 16:30:00 EDT, Dry Weight Start Date: 10/01/19 Stop Date: 11/30/19 Status: Orderedlamotrigine 100 mg oral tablet 100 mg, 1, tablet, By Mouth, 2 times a day, # 60 tablet, Refills 1, Tot. Refills 1, Maintenance, 10/01/19 11:23:00 EDT, Route to Pharmacy Electronically, [facility], 165.1, cm,10/01/19 8:37:00 EDT, Height, 80.1, kg, 09/19/19... Start Date: 10/01/19 Stop Date: 11/30/19 Status: Orderedlamotrigine 25 mg oral tablet 25 mg, 1, tablet, By Mouth, 2 times a day, take with 100mg tablet 2x/day TDD of 250mg, # 60 tablet, Refills 1, Tot. Refills 1, Maintenance, 10/01/19 11:23:00 EDT, Route to Pharmacy Electronically, [facility], 165.1, cm, 09/30... Start Date: 10/01/19 Stop Date: 11/30/19 Status: OrderedLORazepam 0.5 mg oral tablet 1 tablet = 0.5 mg, By Mouth, 2 times a day, PRN as needed for anxiety, # 42 tablet, 2 Refills, Maintenance, 11/30/19 11:27:00 EDT, Tablet, [facility] #[id number], 165.1, cm, 10/01/19 8:37:00 EDT, Height, 80.1, kg, 09/19/19 16:30:00 EDT, Dry Weight Start Date: 11/30/19 Stop Date: 02/01/20 Status: OrderedLORazepam 0.5 mg oral tablet 1 tablet = 0.5 mg, By Mouth, 2 times a day, PRN as needed for anxiety, for 30 days, # 60 tablet, 1 Refills, Hard Stop 11/30/19 11:27:00 EDT, 10/01/19 11:27:00 EDT, Tablet, [facility]-, 165.1, cm, 10/01/19 8:37:00 EDT, Height, 8... Start Date: 10/01/19 Stop Date: 11/30/19 Status: Orderedmultivitamin Multiple Vitamins oral tablet 1 tablet, By Mouth, Daily, # 30 tablet, 1 Refills, Maintenance, 10/01/19 11:23:00 EDT, Tablet, [facility]-, 1 tablet By Mouth Daily,x30 days, 165.1, cm, 10/01/19 8:37:00 EDT, Height, 80.1, kg, 09/19/19 16:30:00 EDT, Dry Weight Start Date: 10/01/19 Stop Date: 11/30/19 Status: Orderedpantoprazole 40 mg oral delayed release tablet = 40 mg, By Mouth, Daily, # 30 tablet, 1 Refills, Maintenance, 10/01/19 11:23:00 EDT, EC Tablet, 165.1, cm, 10/01/19 8:37:00 EDT, Height, 80.1, kg, 09/19/19 16:30:00 EDT, Dry Weight Start Date: 10/01/19 Stop Date: 11/30/19 Status: Orderedprazosin 5 mg oral capsule 5 mg, 1, capsule, By Mouth, Daily at bedtime, # 30 capsule, Refills 1, Tot. Refills 1, Maintenance, 10/01/19 11:23:00 EDT, Route to Pharmacy Electronically, [facility]-, 165.1, cm, 10/01/19 8:37:00 EDT, Height, 80.1, kg, ... Start Date: 10/01/19 Stop Date: 11/30/19 Status: OrderedtraZODone 100 mg oral tablet 100 mg, 1, tablet, By Mouth, Daily at bedtime, # 30 tablet, Refills 1, Tot. Refills 1, Maintenance, 10/01/19 11:29:00 EDT, Route to Pharmacy Electronically, [facility]-, 165.1, cm, 10/01/19 8:37:00 EDT, Height, 80.1, kg, ... Start Date: 10/01/19 Stop Date: 11/30/19 Status: OrderedZoloft 100 mg oral tablet 2 tablet = 200 mg, By Mouth, Daily, # 60 tablet, 1 Refills, Maintenance, 10/01/19 11:28:00 EDT, Tablet, [facility], 165.1, cm, 10/01/19 8:37:00 EDT, Height, 80.1, [...] alcohol dependence(Confirmed) Active Sprain of ribs(Confirmed) Active Vital Signs Most recent to oldest 1 2 3 [Reference Range]: Height 165 cm 165 cm 165 cm (10/06/19 11:25 AM) (10/06/19 6:22 AM) (10/05/19 8: 41 PM) Weight 81.7 kg 81.7 kg 81.7 kg (10/06/19 11:25 AM) (10/06/19 6:22 AM) (10/05/19 8: 41 PM) Oxygen Saturation [94-100 %] 100 % 97 % 97 % (10/06/19:25 AM) (10/06/19 6:22 AM) (10/05/19 8: 41 PM) Pulse Rate [55-90 bpm] 69 bpm 76 bpm 92 bpm (10/06/19 11:25 AM) (10/06/19 6:22 AM) *H* (10/05/19 8:41 PM ) Body Mass Index [18.5-24.99] 30.01 30.01 30. 01 *>HHI* *>HHI* *>HHI* (10/06/19 11:25 AM) (10/06/19 6:22 AM) (10/05/19 8: 41 PM) Blood Pressure [90-138/55-84 112/81 mm Hg 100/82 mm Hg 126 /82 mm Hg mm Hg] (10/06/19 11:25 AM) (10/06/19 6:22 AM) (10/05/19 8: 41 PM) Respiratory Rate [16-30 16 br/min 18 br/min 16 br/mi n br/min] (10/06/19 11:46 AM) (10/06/19 11:25 AM) (10/06/19 7 :21 AM) Temperature [96.8-100.4 97.6 DegF 97.7 DegF 98.4 Deg F DegF] (10/06/19 11:25 AM) (10/06/19 6:22 AM) (10/05/19 6: 23 PM) Mode of Delivery (Oxygen) Room air Room air Room a ir (10/06/19 11:25 AM) (10/06/19 6:22 AM) (10/05/19 8: 41 PM) Blood pressure sites Arm, right Arm, right Arm, left (10/06/19 11:25 AM) (10/05/19 8:41 PM) (10/05/19 6: 23 PM) Temperature Route Oral Oral Oral (10/06/19 11:25 AM) (10/05/19 6:23 PM) (10/05/19 10 :33 AM) Dry Weight 81.7 kg 81.7 kg 81.7 kg (10/06/19 11:25 AM) (10/06/19 6:22 AM) (10/05/19 8: 41 PM) Social History Social History Type Response Smoking Status Current every day smoker; To bacco user in household: Yes entered on: 05/01/14 Sex
--- OUTSIDE RECORDS SUMMARY | 2022-02-15 14:00 | XMS_ITS | Continuity of Care Document ---
:1980 Author Organization [facility] Address [address] [place] [address]- Care Team Providers Name Role Phone Cristofer GALLEGOS, Georgiana Vigil Primary Care Physician Encounter [facility] Date(s): 03/16/20 - 04/15/[address] [address] Allergies, Adverse Reactions, Alerts Substance Reaction Severity [...] 1 Refills, Maintenance, 10/01/19 11:23:00 EDT, Tablet, [facility] 1 tablet By Mouth Daily,x30 days, [...]
--- OUTSIDE RECORDS SUMMARY | 2022-02-15 14:00 | XMS_ITS | Continuity of Care Document ---
:1980 Author Organization [facility] Address [address] [place] [address]- Care Team Providers Name Role Phone Carmella BUTTERFIELD, Kadie Hernandez Primary Care Physician Encounter [facility] Date(s): 08/01/19 - 08/11/19 [facility] [address] [place] [address] [facility] Attending Physician: Gualberto Moralez Admitting Physician: [...]
--- OUTSIDE RECORDS SUMMARY | 2022-02-15 14:00 | XMS_ITS | Continuity of Care Document ---
:1980 Author Organization [facility] Address [address] [place] [address]- Care Team Providers Name Role Phone Sagar Murry MD Primary Care Physician Encounter [facility] Date(s): 02/24/21 - 04/24/[address] [address] Attending Physician: Renae BUTTERFIELD ([facility]), [facility] Allergies, Adverse Reactions, Alerts Substance [...] 1 Refills, Maintenance, 10/01/19 11:23:00 EDT, Tablet, [facility] 1 tablet By Mouth Daily,x30 days, [...]
--- OUTSIDE RECORDS SUMMARY | 2022-02-15 14:00 | XMS_ITS | Continuity of Care Document ---
:1980 Author Organization [facility] Address [address] [place] [address]- Care Team Providers Name Role Phone Cristofer GALLEGOS, Georgiana Vigil Primary Care Physician En[place] [facility] Date(s): 11/17/20 - 11/17/[address] [address]- Encounter Diagnosis Abdominal pain (Final) - 11/17/20 Nausea and vomiting (Final) - 11/17/20 Back pain (Final) - 11/17/20 Discharge Disposition: A-D/C Home Attending Physician: Helena Doty MD Admitting Physician: Helena Doty MD Referring Physician: Not on Staff, Referring [...] 1 Refills, Maintenance, 10/01/19 11:23:00 EDT, Tablet, [facility] 1 tablet By Mouth Daily,x30 days, 165.1, cm, 10/01/19 8:37:00 EDT, Height, 80.1, kg, 09/19/19 16:30:00 EDT, Dry Weight Start Date: 10/01/19 Stop Date: 11/30/19 Status: Orderedondansetron 4 mg oral tablet, disintegrating 1 tablet = 4 mg, By Mouth, Every 8 hours, PRN as needed for nausea/vomiting, for 3 days, # 15 tablet, 0 Refills, Acute 11/20/20 22:51:00 EDT, 11/17/20 22:51:00 EDT, DIS Tablet, [id number], Partial fill upon patient request if the pres... Start Date: 11/17/20 Stop Date: 11/20/20 Status: Ordered Problem List Condition Effective Dates [...] ribs(Confirmed) Active 1Reports HX several times previously Results Radiology Reports Exam Date Time Procedure Performing Provider Status 11/17/20 7:47 PM Chest 2 Views Frontal and Lat Tiffany Lowery; Auth (Verified) Notes:(Chest 2 Views Frontal and Lat) Reason For Exam: AnginaRESULT: Chest 2 Views Frontal and Lat Chest 2 Views Frontal and Lat Hx of Present Illness: Patient presents with complaints of nausea, vomiting, diarrhea x several days. Reports pain at left lateral upper ABD Flank that is tender to touch. Patient reports symptoms somewhat consistent with past episodes of pancreatitis,; Reason: Angina; Clinical Question(s): CHF COMPARISON: 10/27/2016 FINDINGS: LINES AND TUBES: None. LUNGS AND PLEURA: Clear lungs. Normal pulmonary vascularity. No pleural effusion. No pneumothorax. HEART, MEDIASTINUM AND TONIE: Heart is normal in size. Normal upper mediastinal and hilar contour. BONES AND SOFT TISSUES: No acute abnormality. IMPRESSION: No acute abnormality. WSN: [id number] Ordering Physician: Helena Doty Dictated By: Ra Eaton MD Dictated Date/Time: 11/17/20 7:54 pm Reviewed By: Ra Eaton MD Signed By: Ra Eaton MD Signed Date/Time: 11/17/20 7:54 pm Transcribed By: DIPESH Transcribed Date/Time: 11/17/20 7:49 pm Vital Signs Most recent to oldest 1 2 3 [Reference Range]: Oxygen Saturation [94-100 %] 96 % 98 % 98 % (11/17/20 10:57 PM) (11/17/20 9:40 PM) (11/17/20 7: 31 PM) Pulse Rate [55-90 bpm] 66 bpm 65 bpm 71 bpm (11/17/20 10:57 PM) (11/17/20 9:40 PM) (11/17/20 7: 31 PM) Blood Pressure [90-138/55-84 124/74 mm Hg 116/63 mm Hg 129 /79 mm Hg mm Hg] (11/17/20 10:57 PM) (11/17/20 9:40 PM) (11/17/20 7: 31 PM) Respiratory Rate [16-30 18 br/min 18 br/min 18 br/mi n br/min] (11/17/20 10:57 PM) (11/17/20 9:40 PM) (11/17/20 7: 31 PM) Temperature [96.8-100.4 DegF] 98.2 DegF 98.4 DegF 99 .1 DegF (11/17/20 10:57 PM) (11/17/20 9:40 PM) (11/17/20 6: 18 PM) Mode of Delivery (Oxygen) Room air Room air Room a ir (11/17/20 10:57 PM) (11/17/20 9:40 PM) (11/17/20 7: 31 PM) Blood pressure sites Arm, left Arm, left Arm, left (11/17/20 10:57 PM) (11/17/20 9:40 PM) (11/17/20 7: 31 PM) Temperature Route Oral Oral Oral (11/17/20 10:57 PM) (11/17/20 9:40 PM) (11/17/20 6: 18 PM) Social History Social History Type Response Smoking Status Current every day smoker; To bacco user in household: Yes entered on: 05/01/14 Sex
--- OUTSIDE RECORDS SUMMARY | 2022-02-15 14:00 | XMS_ITS | Continuity of Care Document ---
:1980 Author Organization [facility] Address [address] [place] [address]- Care Team Providers Name Role Phone Lovely BUTTERFIELD, Sagar Vigil Primary Care Physician Encounter [facility] Date(s): 04/06/21 - 05/23/21 [facility] [address] [place], [place] [address] Attending Physician: Carmella BUTTERFIELD, Kadie Hernandez Referring Physician: Sagar Murry MD Allergies, Adverse Reactions, [...] 10/01/19 11:23:00 EDT, Tablet, [facility] 1 tablet By Mouth [...]
--- OUTSIDE RECORDS SUMMARY | 2022-02-15 14:00 | XMS_ITS | Continuity of Care Document ---
:1980 Author Organization [facility] Address [address] [place] [address]- Care Team Providers Name Role Phone Cristofer GALLEGOS, Georgiana Vigil Primary Care Physician Encounter [facility] Date(s): 09/24/20 - 10/24/20 [facility] [address] [place], [place] [address] Attending Physician: Gualberto Moralez Admitting Physician: Gualberto [...] 1 Refills, Maintenance, 10/01/19 11:23:00 EDT, Tablet, [facility] 1 tablet By Mouth Daily,x30 days, [...]
--- OUTSIDE RECORDS SUMMARY | 2022-02-15 14:00 | XMS_ITS | Continuity of Care Document ---
:1980 Author Organization [facility] Address [address] [place] [address]- Care Team Providers Name Role Phone Cristofer GALLEGOS, Georgiana Vigil Primary Care Physician [place] [facility] [place] - 12/05/[address] [address] Attending Physician: Gualberto Moralez Admitting Physician: Gualberto [...] 1 Refills, Maintenance, 10/01/19 11:23:00 EDT, Tablet, [facility] 1 tablet By Mouth Daily,x30 days, 165.1, cm, 10/01/19 8:37:00 EDT, Height, 80.1, kg, 05/14/20 16:30:00 EDT, Dry Weight Start Date: 10/01/19 [...]
--- OUTSIDE RECORDS SUMMARY | 2022-02-15 14:00 | XMS_ITS | Continuity of Care Document ---
:1980 Author Organization [facility] Address [address] [place] [address]- Care Team Providers Name Role Phone Cristofer GALLEGOS, Georgiana Vigil Primary Care Physician Encounter [facility] Date(s): 11/04/19 - 12/04/[address] [address]- [facility] Allergies, Adverse Reactions, Alerts Substance Reaction Severity [...] 1 Refills, Maintenance, 10/01/19 11:23:00 EDT, Tablet, [facility] 1 tablet By Mouth Daily,x30 days, [...]
--- OUTSIDE RECORDS SUMMARY | 2022-02-15 14:00 | XMS_ITS | Continuity of Care Document ---
:1980 Author Organization [facility] Address [address] [place] [address]- Care Team Providers Name Role Phone Cristofer GALLEGOS, Georgiana Vigil Primary Care Physician Encounter [facility] Date(s): 11/20/20 - 12/20/[address] [address] Allergies, Adverse Reactions, Alerts Substance [...] 1 Refills, Maintenance, 10/01/19 11:23:00 EDT, Tablet, [facility]-, 1 tablet By Mouth Daily,x30 days, 165.1, [...]
--- OUTSIDE RECORDS SUMMARY | 2022-02-15 14:00 | XMS_ITS | Continuity of Care Document ---
:1980 Author Organization [facility] Address [address] [place] [address]- Care Team Providers Name Role Phone Carmella BUTTERFIELD, Kadie Hernandez Primary Care Physician Encounter [facility] Date(s): 07/22/19 - 08/31/[address] [address]- [facility] Attending Physician: Georgiana Cleveland NP Allergies, Adverse [...]
--- OUTSIDE RECORDS SUMMARY | 2022-02-15 14:00 | XMS_ITS | Continuity of Care Document ---
:1980 Author Organization [facility] Address [address] [place] [address]- Care Team Providers Name Role Phone Cristofer GALLEGOS, Georgiana Vigil Primary Care Physician Encounter [facility] Date(s): 02/08/20 - 02/09/[address] [address]- [facility] Encounter Diagnosis Depression with suicidal ideation (Final) - 02/08/20 Acute alcohol abuse (Final) - 02/08/20 HX of Seizure due to alcohol withdrawal (Final) - 02/08/20 Discharge Disposition: Transferred to [facility]-term [facility] hospit Attending Physician: Uli Lane MD Admitting Physician: Uli Lane MD Referring Physician: Not on Staff, Referring [...] 1 Refills, Maintenance, 10/01/19 11:23:00 EDT, Tablet, [id number], 1 tablet By Mouth Daily,x30 days, 165.1, [...] previously Vital Signs Most recent to oldest 1 2 3 [Reference Range]: Height 164 cm 164 cm (02/09/20 2:54 AM) (02/08/20 6:25 PM) Weight 91.1 kg 91.1 kg (02/09/20 2:54 AM) (02/08/20 6:25 PM) Oxygen Saturation [94-100 %] 97 % 99 % 97 % (02/09/20 7:29 PM) (02/09/20 12:55 PM) (02/09/20 2: 54 AM) Pulse Rate [55-90 bpm] 89 bpm 80 bpm 77 bpm (02/09/20 7:29 PM) (02/09/20 12:55 PM) (02/09/20 2: 54 AM) Body Mass Index [18.5-24.99] 33.87 *>HHI* (02/09/20 2:54 AM) Blood Pressure [90-138/55-84 101/73 mm Hg 115/66 mm Hg 130 /60 mm Hg mm Hg] (02/09/20 7:29 PM) (02/09/20 12:55 PM) (02/09/20 9: 47 AM) Respiratory Rate [16-30 16 br/min 18 br/min 17 br/mi n br/min] (02/09/20 7:29 PM) (02/09/20 5:16 PM) (02/09/20 1:5 3 PM) Temperature [96.8-100.4 DegF] 97.5 DegF (02/08/20 6:25 PM) Mode of Delivery (Oxygen) Room air Room air Room a ir (02/09/20 7:29 PM) (02/09/20 12:55 PM) (02/09/20 2: 54 AM) Blood pressure sites Arm, left Arm, left Arm, right (02/09/20 7:29 PM) (02/09/20 12:55 PM) (02/09/20 2: 54 AM) Temperature Route Oral (02/08/20 6:25 PM) Dry Weight 91.1 kg 91.1 kg (02/09/20 2:54 AM) (02/08/20 6:25 PM) Social History Social History Type Response Smoking Status Current every day smoker; To bacco user in household: Yes entered on: 05/01/14 Sex
--- OUTSIDE RECORDS SUMMARY | 2022-02-15 14:00 | XMS_ITS | Continuity of Care Document ---
:1980 Author Organization [facility] Address [address] [place] [address]- Care Team Providers Name Role Phone Cristofer GALLEGOS, Georgiana Vigil Primary Care Physician [place] [facility] [place] Date[place] 07/09/20 - 08/08/20 [facility] [address] [place] [address] Attending Physician: Gualberto Moralez Admitting [...] 1 Refills, Maintenance, 10/01/19 11:23:00 EDT, Tablet, [facility] 1 tablet By Mouth Daily,x30 days, [...]
--- OUTSIDE RECORDS SUMMARY | 2022-02-15 14:00 | XMS_ITS | Continuity of Care Document ---
:1980 Author Organization [facility] Address [address] [place] [address]- Care Team Providers Name Role Phone Cristofer GALLEGOS, Georgiana Vigil Primary Care Physician Encounter [facility] Date(s): 01/07/20 - 02/06/[address] [address]- [facility] Allergies, Adverse Reactions, Alerts Substance Reaction Severity [...] 1 Refills, Maintenance, 10/01/19 11:23:00 EDT, Tablet, [facility]-, 1 tablet By Mouth Daily,x30 days, 165.1, cm, 10/01/19 8:37:00 EDT, Height, 80.1, kg, 09/19/19 16:30:00 EDT, Dry Weight Start Date: 10/01/19 Stop Date: 11/30/19 Status: Ordered Problem List Condition Effective Dates Status Health Status Informant Abnormal uterine bleeding(Confirmed) Active Acute pancreatitis(Confirmed) Active Alcohol use disorder, severe, in early Active remission, in controlled environment, dependence(Confirmed) Alcohol dependence(Confirmed) Active Alcoholic hepatitis(Confirmed) Active Alcoholic liver disease(Confirmed) Active [...]
--- OUTSIDE RECORDS SUMMARY | 2022-02-15 14:00 | XMS_ITS | Continuity of Care Document ---
:1980 Author Organization [facility] Address [address] [place] [address]- Care Team Providers Name Role Phone Cristofer GALLEGOS, Georgiana Vigil Primary Care Physician [place] [facility] [place] 06/02/20 - 07/05/20 [facility] [address] [place] [address] Attending Physician: Sherice Portillo Allergies, Adverse Reactions, [...] 1 Refills, Maintenance, 10/01/19 11:23:00 EDT, Tablet, [id number], 1 tablet By Mouth Daily,x30 days, 165.1, [...]
--- OUTSIDE RECORDS SUMMARY | 2022-02-15 14:00 | XMS_ITS | Continuity of Care Document ---
:1980 Author Organization [facility] Address [address] [place] [address]- Care Team Providers Name Role Phone Cristofer GALLEGOS, Georgiana Vigil Primary Care Physician Encounter [facility] Date(s): 10/07/20 - 11/06/20 [facility] [address] [place] [address]- Attending Physician: Gualberto Moralez Admitting Physician: Gualberto [...] 1 Refills, Maintenance, 10/01/19 11:23:00 EDT, Tablet, [facility] [place]-, 1 tablet By Mouth Daily,x30 days, 165.1, [...]
--- OUTSIDE RECORDS SUMMARY | 2022-02-15 14:00 | XMS_ITS | Continuity of Care Document ---
:1980 Author Organization [facility] Address [address] [place] [address]- Care Team Providers Name Role Phone Cristofer GALLEGOS, Georgiana Vigil Primary Care Physician [place] [facility] [place] Date(s): 04/22/20 - 04/22/[address] [address]- Encounter Diagnosis Urinary tract infection (Final) - 04/22/20 Discharge Disposition: A-D/C Home Attending Physician: Michelle Cervantes MD Admitting Physician: Michelle Cervantes MD Referring Physician: Not on Staff, Referring [...] 04/27/20 21:31:00 EST, 04/22/20 21:31:00 EST, Capsule, [id number], Partial fill upon patient request if the prescription is for a schedule II opio... Start Date: 04/22/20 Stop Date: 04/27/20 Status: Orderedmultivitamin Multiple Vitamins oral tablet 1 tablet, By Mouth, Daily, # 30 tablet, 1 Refills, Maintenance, 10/01/19 11:23:00 EDT, Tablet, [facility] 1 tablet By Mouth Daily,x30 days, 165.1, cm, 10/01/19 8:37:00 EDT, Height, 80.1, kg, 09/19/19 16:30:00 EDT, Dry Weight Start Date: 10/01/19 Stop Date: 11/30/19 Status: OrderedOxyCODONE IR Tablet 5 mg, Tablet, By Mouth, Once, STAT, 04/22/20 20:45:00 EST, Stop date 04/22/20 20:45:00 EST Start Date: 04/22/20 Stop Date: 04/22/20 Status: Completedpantoprazole 40 mg oral delayed release tablet 1 [...] [Reference Range]: Height 164 cm 164 cm 164 cm (04/22/20 9:53 PM) (04/22/20 7:29 PM) (04/22/20 4:22 PM) Weight 86.5 kg 86.5 kg 86.5 kg (04/22/20 9:53 PM) (04/22/20 7:29 PM) (04/22/20 4:22 PM) Oxygen Saturation [94-100 96 % 97 % 95 % %] (04/22/20 9:53 PM) (04/22/20 7:29 PM) (04/22/20 4:22 PM) Pulse Rate [55-90 bpm] 98 bpm 86 bpm 95 bpm *H* (04/22/20 7:29 PM) *H* (04/22/20 9:53 PM) (04/22/20 4:2 2 PM) Body Mass Index 32.16 32.16 32.16 [18.5-24.99] *>HHI* *>HHI* *>HHI* (04/22/20 9:53 PM) (04/22/20 7:29 PM) (04/22/20 4:22 PM) Blood Pressure 130/84 mm Hg 134/79 mm Hg 130/82 mm Hg [90-138/55-84 mm Hg] (04/22/20 9:53 PM) (04/22/20 7:29 PM) (04/07 10/25 4:22 PM) Respiratory Rate [16-30 17 br/min 17 br/min 16 br/mi n br/min] (04/22/20 9:53 PM) (04/22/20 9:04 PM) (04/22/20 7:29 PM) Temperature [96.8-100.4 97.5 DegF 98.4 DegF 98.9 Deg F DegF] (04/22/20 9:53 PM) (04/22/20 7:29 PM) (04/22/20 4:22 PM) Mode of Delivery (Oxygen) Room air Room air Room a ir (04/22/20 9:53 PM) (04/22/20 7:29 PM) (04/22/20 4:22 PM) Blood pressure sites Arm, left Arm, left Arm, left (04/22/20 9:53 PM) (04/22/20 7:29 PM) (04/22/20 4:22 PM) Temperature Route Oral Oral Oral (04/22/20 9:53 PM) (04/22/20 7:29 PM) (04/22/20 4:22 PM) Dry Weight 86.5 kg 86.5 kg 86.5 kg (04/22/20 9:53 PM) (04/22/20 7:29 PM) (04/22/20 4:22 PM) Weight Obtained Via Patient/family stated (04/22/20 4:22 PM) Dry Weight Obtained Via Patient/family stated (04/22/20 4:22 PM) Social History Social History Type Response Smoking Status Current every day smoker; To bacco user in household: Yes entered on: 05/01/14 Sex
--- OUTSIDE RECORDS SUMMARY | 2022-02-15 14:01 | XMS_ITS | Continuity of Care Document ---
:1980 Author Organization [facility] [employer] [facility] Address [address] [place] [address]- Care Team Providers Name Role Phone Jose Maria GALLEGOS, Unruly Herbert Primary Care Physician [place] [facility] [place] Date(s): 04/23/19 - 05/03/19 [facility] [place] [employer] [facility] [address] [place] [address]- Attending Physician: Gualberto Moralez Admitting Physician: Gualberto [...]
--- OUTSIDE RECORDS SUMMARY | 2022-02-15 14:01 | XMS_ITS | Continuity of Care Document ---
:1980 Author Organization [facility] Address [address] [place] [address]- Care Team Providers Name Role Phone Cristofer GALLEGOS, Georgiana Vigil Primary Care Physician [id number] Date(s): [facility]/20 - 08/08/20 [facility] [address] [place] [id number] Attending Physician: Checo Landeros MD Admitting Physician: Leti BUTTERFIELD, Checo Sandoval Allergies, Adverse Reactions, Alerts Substance Reaction Severity [...] 1 Refills, Maintenance, 10/01/19 11:23:00 EDT, Tablet, [facility]-, 1 tablet By Mouth Daily,x30 [...]
--- OUTSIDE RECORDS SUMMARY | 2022-02-15 14:01 | XMS_ITS | Continuity of Care Document ---
:1980 Author Organization [facility] Address [address] [place] [address]- Care Team Providers Name Role Phone rCistofer GALLEGOS, Georgiana Vigil Primary Care Physician Encounter [facility] Date(s): 09/30/20 - 10/30/[address] [address] Allergies, Adverse Reactions, Alerts Substance [...] 1 Refills, Maintenance, 10/01/19 11:23:00 EDT, Tablet, [facility] 1 tablet By Mouth [...]
--- OUTSIDE RECORDS SUMMARY | 2022-02-15 14:01 | XMS_ITS | Continuity of Care Document ---
:1980 Author Organization [facility] Address [address] [place] [address]- Care Team Providers Name Role Phone Lovely BUTTERFIELD, Sagar Vigil Primary Care Physician Encounter [facility] Date(s): 01/27/21 - 03/25/[address] [address] Attending Physician: Antonia Cates NP Allergies, Adverse Reactions, Alerts Substance Reaction [...] 1 Refills, Maintenance, 10/01/19 11:23:00 EDT, Tablet, [facility]-, 1 tablet By Mouth [...]
--- OUTSIDE RECORDS SUMMARY | 2022-02-15 14:01 | XMS_ITS | Continuity of Care Document ---
:1980 Author Organization [facility] Address [address] [place] [address]- Care Team Providers Name Role Phone Cristofer GALLEGOS, Georgiana Vigil Primary Care Physician Encounter [facility] Date(s): 03/25/20 - 04/24/20 [facility] [address] [place] [address] Attending Physician: AdmGualberto woods Admitting Physician: Admtr, Ar8 Referring Physician: Admtr, Ar8 Allergies, Adverse Reactions, [...] 04/27/20 21:31:00 EST, 04/22/20 21:31:00 EST, Capsule, [id number], Partial fill upon patient request if the prescription is for a schedule II opio... Start Date: 04/22/20 Stop Date: 04/27/20 Status: Orderedmultivitamin Multiple Vitamins oral tablet 1 tablet, By Mouth, Daily, # 30 tablet, 1 Refills, Maintenance, 10/01/19 11:23:00 EDT, Tablet, [facility]-, 1 tablet By Mouth Daily,x30 [...]
--- OUTSIDE RECORDS SUMMARY | 2022-02-15 14:01 | XMS_ITS | Continuity of Care Document ---
:1980 Author Organization [facility] Address [address] [place] [address]- Care Team Providers Name Role Phone Cristofer GALLEGOS, Georgiana Vigil Primary Care Physician En[place] [facility] [place] Date(s): 06/29/20 - 07/06/20 [facility] [address] [place] [address]- Encounter Diagnosis Low back pain (Discharge Diagnosis) - 06/29/20 Attending Physician: Checo Landeros MD Allergies, Adverse [...] 1 Refills, Maintenance, 10/01/19 11:23:00 EDT, Tablet, [facility]Jeff[facility]-[id number], 1 tablet By Mouth Daily,x30 days, 165.1, [...] previously Diagnosis Diagnosis Type Effective Dates Health Status Clinical In formant Service Low back pain Discharge 06/29/20 Diagnosis Social History Social History Type Response Smoking Status Current every day smoker; To bacco user in household: Yes entered on: 05/01/14 Sex
--- OUTSIDE RECORDS SUMMARY | 2022-02-15 14:01 | XMS_ITS | Continuity of Care Document ---
:1980 Author Organization [facility] Address [address] [place] [address]- Care Team Providers Name Role Phone Cristofer GALLEGOS, Georgiana Vigil Primary Care Physician Encounter [facility] Date(s): 09/18/20 - 10/18/[address] [address] Allergies, Adverse Reactions, Alerts Substance [...] 1 Refills, Maintenance, 10/01/19 11:23:00 EDT, Tablet, [facility]-, 1 tablet By Mouth Daily,x30 days, [...]
--- OUTSIDE RECORDS SUMMARY | 2022-02-15 14:01 | XMS_ITS | Continuity of Care Document ---
:1980 Author Organization [facility] Address [address] [place] [address]- Care Team Providers Name Role Phone Cristofer GALLEGOS, Georgiana Vigil Primary Care Physician Encounter [facility] Date(s): 06/16/20 - 07/16/[address] [address]- Allergies, Adverse Reactions, Alerts Substance Reaction Severity [...] 1 Refills, Maintenance, 10/01/19 11:23:00 EDT, Tablet, [facility]-, 1 tablet By Mouth Daily,x30 [...]
--- OUTSIDE RECORDS SUMMARY | 2022-02-15 14:01 | XMS_ITS | Continuity of Care Document ---
:1980 Author Organization [facility] Address [address] [place] [address]- Care Team Providers Name Role Phone Cristofer GALLEGOS, Georgiana Vigil Primary Care Physician [place] [facility] [place]s): 06/11/20 - 07/11/20 [facility] [address] [place] [address] Allergies, Adverse Reactions, Alerts Substance [...] Maintenance, 10/01/19 11:23:00 EDT, Tablet, [facility]-, 1 tablet By Mouth Daily,x30 [...]
--- OUTSIDE RECORDS SUMMARY | 2022-02-15 14:01 | XMS_ITS | Continuity of Care Document ---
:1980 Author Organization [facility] Address [address] [place] [address]- Care Team Providers Name Role Phone Cristofer GALLEGOS, Georgiana Vigil Primary Care Physician Encounter [facility] Date(s): 09/22/20 - 10/22/[address] [address] Allergies, Adverse Reactions, Alerts [...] 1 Refills, Maintenance, 10/01/19 11:23:00 EDT, Tablet, [facility]-, 1 tablet By Mouth Daily,x30 [...]
--- OUTSIDE RECORDS SUMMARY | 2022-02-15 14:01 | XMS_ITS | Continuity of Care Document ---
:1980 Author Organization [facility] Address [address] [place] [address]- Care Team Providers Name Role Phone Kadie Weir MD Primary Care Physician Encounter [facility] Date(s): 07/11/19 - 08/31/19 [facility] [address] [place] [address]- [facility] Attending Physician: Emilio Marcial DO Referring Physician: Kadie Weir MD Allergies, Adverse Reactions, [...]
--- OUTSIDE RECORDS SUMMARY | 2022-02-15 14:01 | XMS_ITS | Continuity of Care Document ---
:1980 Author Organization [facility] Address [address] [place] [address]- Care Team Providers Name Role Phone Cristofer GALLEGOS, Georgiana Vigil Primary Care Physician Encounter [facility] Date(s): 10/21/20 - 11/20/[address] [address] Allergies, Adverse Reactions, Alerts Substance [...] 1 Refills, Maintenance, 10/01/19 11:23:00 EDT, Tablet, [facility]-, 1 tablet [...]
== END 2022-02-15 14:03 | disposition left against medical advice (07) ==
PROVIDERS: Emergency Provider Emergency Medicine
DX: K85.90 Acute pancreatitis without necrosis or infection, unspecified (principal)
CPT/HCPCS: 99281

== ENCOUNTER 2022-02-17 16:22 | Emergency (ER) | payer MEDICAID, SELFPAY ==
[2022-02-17 16:25] VITALS: BP 138/90; PULSE 97; O2SAT 97
[2022-02-17 16:38] VITALS: BP 113/77; PULSE 94; RESP 18; TEMP 36.3; O2SAT 95; BMI 30.4
--- NOTE | 2022-02-17 16:46 | PC.NURSE ---
Pt reports surgical screw coming through my foot s/p blood work. Scar tissue noted at site. No screw noted upon visual inspection.
[2022-02-17 16:50] LABS: MANUAL DIFF FLAG NO
[2022-02-17 16:51] LABS: Basophils Percent Auto 0.5 % (0-2); Eosinophils Absolute Auto 0.2 X10*3/uL (0.0-0.4); Eosinophils Percent Auto 3.3 % (0-4); Hematocrit 42.3 % (37.0-47.0); Imm Gran Abs Auto 0.02 X10*3/uL (0.00-0.03); Imm Gran Pct Auto 0.3 % (0.0-0.4); Lymphocytes Absolute Auto 2.8 X10*3/uL (1.2-4.9); Lymphocytes Percent Auto 38.1 % (20-40); Mean Corpuscular HGB Conc 33.1 g/dl (31.0-35.0); Mean Corpuscular Hemoglobin 32.7 pg (27.0-33.0); Mean Corpuscular Volume 98.8 fL (80.0-98.0); Mean Platelet Volume 9.1 fL (9.4-12.3); Monocytes Absolute Auto 0.5 X10*3/uL (0.1-1.2); Monocytes Percent Auto 6.9 % (2-11); Neutrophils Absolute Auto 3.8 x10*3/uL (2.0-8.3); Neutrophils Percent Auto 50.9 % (45-73); Platelet Count 251 X10*3/uL (160-400); Red Blood Count 4.28 X10*6/uL (4.20-5.50); White Blood Count 7.4 X10*3/uL (4.8-10.8)
[2022-02-17 17:08] LABS: COVID-19 Test Negative (Negative)
[2022-02-17 17:27] LABS: Ethanol 220 mg/dL
[2022-02-17 17:31] LABS: Alanine Aminotransferase 55 U/L (0-31); Albumin Level 4.2 g/dL (3.5-5.0); Alkaline Phosphatase 76 U/L (39-117); Anion Gap 17 (12-20); Aspartate Amino Transferase 100 U/L (5-31); Bilirubin Direct 0.3 mg/dL (0.0-0.5); Bilirubin Total 0.5 mg/dL (0.0-1.0); Blood Urea Nitrogen 8 mg/dL (9-16); Calcium 9.2 mg/dL (8.4-10.2); Carbon Dioxide 25 mmol/L (22-29); Chloride 105 mmol/L (96-108); Creatinine Clr Calc Pharmacy 70.1; Estimated Glomerular Filt Rate 57; Glucose Random 134 mg/dL (60-115); Lipase 15 U/L (8-78); Potassium 4.3 mmol/L (3.3-5.1); Sodium 143 mmol/L (135-145); Total Protein 6.9 g/dL (6.5-8.0)
--- NOTE | 2022-02-17 20:54 | PC.NURSE ---
Attempted to reassess. Not in WR. Presumed LWT
--- OUTSIDE RECORDS SUMMARY | 2022-02-17 20:58 | XMS_ITS | Continuity of Care Document ---
:1980 Author Organization [facility] Address [address] [place] [id number]- Care Team Providers Name Role Phone Marissa Malik NP Primary Care Physician Encounter [facility] Date(s): 02/15/22 - 02/15/[address] [address]- Discharge Disposition: A-D/C Walkout Attending Physician: Fanny BUTTERFIELD, Matt Lee Admitting Physician: Fanny BUTTERFIELD, Matt Lee Referring Physician: Not on Staff, Referring MD [...] Daily at bedtime, # 30 tablet, Refills 3, Tot. Refills 3, Maintenance, 12/10/21 11:45:00 EDT, Route to Pharmacy Electronically, [facility] #[id number], 164, cm, 03/23/21 15:58:00 EST, Height, 86.5, kg, 04/22/20 21:53:0... Start Date: 12/10/21 Stop Date: 04/09/22 Status: Orderedalbuterol 90 mcg/inh inhalation powder 1-2 puffs, Inhalation, Every 4 hours, PRN Wheezing/Shortness of Breath, # 1 each, 0 Refills, Maintenance, 04/06/21 16:30:00 EST, Powder, [facility] #[id number], Partial fill upon patient request if the prescription is for a schedule II opioid elijah... Start Date: 04/06/21 Status: OrderedAtivan 1 mg oral tablet 1.5 tablet = 1.5 mg, By Mouth, 2 times a day, Last filled- 12/23/21 Pt pharm closed. due to staffing,# 90 tablet, 0 Refills, Maintenance, 01/20/22 13:02:00 EDT, Tablet, [facility] #[id number], 164, cm, 03/23/21 15:58:00 EST, Height, 86.5, kg, 12... Start Date: 01/20/22 Status: OrderedAtivan 1 mg oral tablet 1.5 tablet = 1.5 mg, By Mouth, 2 times a day, for 30 days, # 90 tablet, 3 Refills, Hard Stop 04/09/22 11:46:00 EST, 12/10/21 11:46:00 EDT, Tablet, [facility] #[id number], 164, cm, 03/23/21 15:58:00 EST, Height, 86.5, kg, 04/22/20 21:53:00 EST, DrTiffanie.. Start Date: 12/10/21 Stop Date: 04/09/22 Status: OrderedbusPIRone 15 mg oral tablet 1 tablet = 15 mg, By Mouth, 3 times a day, # 90 tablet, 3 Refills, Maintenance, 12/10/21 11:45:00 EDT, Tablet, [facility] #[id number], 164, cm, 03/23/21 15:58:00 EST, Height, 86.5, kg, 04/22/20 21:53:00 EST, Dry Weight Start Date: 12/10/21 Stop Date: 04/09/22 Status: OrderedCreon 12,000 units oral delayed release capsule 2 capsule, By Mouth, 3 times a day, # 180 capsule, 6 Refills, Maintenance, 01/07/20 15:10:00 EDT, [facility] #[id number], 165, cm, 11/05/19 9:49:00 EDT, Height, 81.7, kg, 10/06/19 11:25:00 EDT, Dry Weight Start Date: 01/07/20 Status: Ordereddoxepin 50 mg oral capsule 1 capsule = 50 mg, By Mouth, Daily at bedtime, # 30 capsule, 3 Refills, Maintenance, 12/10/21 11:45:00 EDT, Capsule, [facility] #[id number], 164, cm, 03/23/21 15:58:00 EST, Height, 86.5, kg, 04/22/20 21:53:00 EST, Dry Weight Start Date: 12/10/21 Stop Date: 04/09/22 Status: OrderedEPINEPHrine 0.1 mg injectable kit = 0.1 mg, Intramuscular, Once, PRN Other, # 1 each, 0 Refills, Soft Stop, 11/29/18 8:35:13 EDT Start Date: 11/29/18 Status: Orderedfluticasone 50 mcg/inh nasal spray See Instructions, SHAKE LIQUID AND USE 1 SPRAY IN EACH NOSTRIL TWICE DAILY, # 15.8 mL, 3 Refills, 03/23/21 16:18:00 EST, [facility] #[id number], SHAKE LIQUID AND USE 1 SPRAY IN EACH NOSTRIL TWICE DAILY, 164, cm, 03/23/21 15:58:00 EST, Height, 86.... Start Date: 03/23/21 Status: Orderedgabapentin 600 mg oral tablet See Instructions, 1 tablet in the morning and 2 tablets at bedtime, # 90 tablet, 3 Refills, Maintenance, 12/10/21 11:46:00 EDT, Tablet, [facility] #[id number], 164, cm, 03/23/21 15:58:00 EST, Height, 86.5, kg, 04/22/20 21:53:00 EST, Dry Weight Start Date: 12/10/21 Status: Orderedmultivitamin Multiple Vitamins oral tablet 1 tablet, By Mouth, Daily, # 30 tablet, 1 Refills, Maintenance, 10/01/19 11:23:00 EDT, Tablet, [facility]-[id number], 1 tablet By Mouth Daily,x30 days, 165.1, cm, 10/01/19 8:37:00 EDT, Height, 80.1, kg, 09/19/19 16:30:00 EDT, Dry Weight Start Date: 10/01/19 Stop Date: 11/30/19 Status: Orderedpantoprazole 40 mg oral delayed release tablet 1 tablet, By Mouth, Daily, # 90 tablet, 3 Refills, Maintenance, 03/23/21 16:18:00 EST, 164, cm, 03/23/21 15:58:00 EST, Height, 86.5, kg, 04/22/20 21:53:00 EST, Dry Weight Start Date: 03/23/21 Status: Orderedprazosin 5 mg oral capsule 5 mg, 1, capsule, By Mouth, Daily at bedtime, # 30 capsule, Refills 3, Tot. Refills 3, Maintenance, 12/10/21 11:46:00 EDT, Route to Pharmacy Electronically, [facility] #[id number], 164, cm, 03/23/21 15:58:00 EST, Height, 86.5, kg, 04/22/20 21:53:... Start Date: 12/10/21 Stop Date: 04/09/22 Status: OrderedtraMADol 50 mg oral tablet 1 tablet = 50 mg, By Mouth, 3 times a day, PRN Pain , Severe, nex refill to be 50 mg BID, # 90 tablet, 0 Refills, Maintenance, 03/25/21 8:59:00 EST, Tablet, [facility] #[id number], 164, cm, 03/23/21 15:58:00 EST, Height, 86.5, kg, 04/22/20 21:53:... Start Date: 03/25/21 Status: OrderedtraZODone 100 mg oral tablet 100 mg, 1, tablet, By Mouth, Daily at bedtime, # 30 tablet, Refills 3, Tot. Refills 3, Maintenance, 12/10/21 11:47:00 EDT, Route to Pharmacy Electronically, [facility] #[id number], 164, cm, 03/23/21 15:58:00 EST, Height, 86.5, kg, 04/22/20 21:53:... Start Date: 12/10/21 Stop Date: 04/09/22 Status: OrderedZoloft 100 mg oral tablet 2 tablet = 200 mg, By Mouth, Daily, # 60 tablet, 1 Refills, Maintenance, 12/10/21 11:46:00 EDT, Tablet, [facility] #[id number], 164, cm, 03/23/21 15:58:00 EST, Height, 86.5, kg, 04/22/20 21:53:00 EST, Dry Weight Start Date: 12/10/21 Stop Date: 02/08/22 Status: Ordered Problem List Condition Confirmation Course Effective Dates Status Health I nformant Status Abnormal uterine Confirmed Active bleeding Acute pancreatitis Confirmed Active Alcohol use disorder, Confirmed Active severe, in early remission, in controlled environment, dependence Alcohol dependence Confirmed Active Alcohol Confirmed Active withdrawal-induced seizure1 Alcoholic hepatitis Confirmed Active Alcoholic liver Confirmed Active disease Attempted suicide - Confirmed 06/27/19 Active hanging Mass of right breast Confirmed Active Alcohol dependence in Confirmed Active early, early partial, sustained full, or sustained partial remission Chronic low back pain Confirmed Active Pancreatitis, chronic Confirmed Active Depression Confirmed Active Endometriosis Confirmed Active Abdominal pain, Confirmed Active epigastric Gastritis Confirmed Active Iron deficiency anemia Confirmed Active Low back pain without Confirmed Active sciatica Macrocytic anemia Confirmed Active Menometrorrhagia Confirmed Active Mood disorder Confirmed Active Encounter for Confirmed Active preventive health examination Post traumatic stress Confirmed Active disorder (PTSD) Major depressive Confirmed Active disorder, recurrent episode, moderate degree Severe alcohol Confirmed Active dependence Sprain of ribs Confirmed Active 1Reports HX several times previously Social History Social History Type Response Smoking Status Current every day smoker; To bacco user in household: Yes entered on: 05/01/14 Sex Patient Care team information PersonnelName: Marisas Malik NP Address: Address: [address] [place] [address] Primary [place], [place] [address]
== END 2022-02-17 20:56 | disposition left against medical advice (07) ==
PROVIDERS: Emergency Provider Emergency Medicine
DX: R10.9 Unspecified abdominal pain (principal); F10.220 Alcohol dependence with intoxication, uncomplicated; Y90.7 Blood alcohol level of 200-239 mg/100 ml; Z20.822 Contact with and (suspected) exposure to COVID-19
CPT/HCPCS: 36415; 80053; 82077; 82248; 83690; 85025; 87635; 99281; 99283

== ENCOUNTER 2023-09-06 14:10 | Inpatient (IN) | payer OTHER, SELFPAY ==
--- NOTE | ~2023-09-06 | CT_ITS ---
EXAMINATION: CT abdomen pelvis w IV con CLINICAL INFORMATION: Reason for Exam N/V/D , LUQ pain COMPARISON: No prior CT available for comparison. TECHNIQUE: Multidetector volumetric imaging was performed from the superior aspect of the liver through the pubic symphysis 60 mL of Omnipaque 350 injected Sagittal and coronal reformatted images were obtained on the technologist's workstation. This CT examination was performed using dose optimization techniques as appropriate, variously including the following: *Automated exposure control *Adjustment of mA and/or kV according to patient size (this includes techniques or standardized protocols for targeted exams where dose is matched to indication/reason for exam; i.e. extremities or head) *Use of iterative reconstruction technique DLP: 689 mGy-cm FINDINGS: LOWER THORAX: Included lung bases are clear. HEPATOBILIARY: Diffusely hypodense liver suggesting hepatic steatosis. GALLBLADDER: Gallbladder unremarkable. SPLEEN: Spleen is normal in size. PANCREAS: Small atrophic pancreas with multiple punctate pancreatic calcification most likely sequela of chronic pancreatitis, there is dilatation of the pancreatic duct measuring about 5 mm although could be also sequela of prior chronic pancreatitis, this has newly developed since prior CT scan, cannot rule out obstruction due to underlying occult lesion. There is no large pancreatic mass that can be readily seen by CT scan. STOMACH AND GASTROINTESTINAL TRACT: Stomach is grossly unremarkable. There is no bowel distention or thickening. No CT evidence of appendicitis. ADRENALS: No adrenal nodules. KIDNEYS/URETERS: No hydronephrosis, stones or solid mass lesions. URINARY BLADDER: Partially decompressed. PELVIC VISCERA: Unremarkable PERITONEUM: No free air or fluid. LYMPH NODES: No lymphadenopathy. VASCULAR:Abdominal aorta normal in size, no aneurysm found. BONES, ABDOMINAL WALL AND SOFT TISSUES: Age-appropriate changes of the spine and skeletal system, no destructive osteolytic or osteosclerotic bone lesion found CT/CT abdomen pelvis w IV con IMPRESSION: 1. No CT evidence of acute intra-abdominal process to explain patient's pain symptoms. 2. Atrophic pancreas with multiple punctate pancreatic calcifications most likely sequela of chronic pancreatitis. 3. there is dilatation of the pancreatic duct measuring 5 mm although could be also sequela of prior or chronic pancreatitis, this has newly developed since prior CT scan, cannot rule out underlying occult obstruction lesion at the level of the head of the pancreas or ampulla. Would recommend correlation with follow-up outpatient MRI/MRCP. 4. Diffusely hypodense liver suggesting hepatic steatosis.
--- NOTE | ~2023-09-06 | MR_ITS ---
EXAMINATION: MR ABDOMEN WITHOUT CONTRAST CLINICAL INFORMATION: Dilated pancreatic duct. COMPARISON: 09/06/2023 and 05/20/2021 TECHNIQUE: MR abdomen is performed without gadolinium contrast. Heavily T2 weighted MRCP sequences were also obtained. Lack of intravenous contrast limits evaluation. FINDINGS: LUNG BASES: The visualized lung bases are unremarkable. LIVER, GALLBLADDER, AND BILIARY TREE: The liver measures 19.3 cm in sagittal dimension. Hepatic steatosis. No intrahepatic biliary ductal dilatation. The common duct measures 6 mm at the carolina hepatis. No intraductal filling defects. The gallbladder is unremarkable with no evidence of gallbladder wall thickening, or obvious pericholecystic inflammatory changes. PANCREAS: Dilatation and tortuosity of the main pancreatic duct up to 7 mm. No peripancreatic stranding or peripancreatic fluid collection. SPLEEN: Not enlarged. ADRENAL GLANDS: No adrenal mass. KIDNEYS AND URETERS: The kidneys are symmetric in size. No hydronephrosis. No perinephric stranding. LYMPH NODES: No bulky lymphadenopathy. VASCULAR: Normal caliber abdominal aorta. MR/MR MRCP IMPRESSION: Dilatation and tortuosity of the main pancreatic duct which measures up to 7 mm. No discrete mass or filling defect. CT demonstrated multiple pancreatic parenchymal calcifications. These findings may be seen in the setting of chronic pancreatitis. Short interval follow-up imaging could be considered. Hepatomegaly and hepatic steatosis.
--- NOTE | 2023-09-06 14:37 | ED_ITS ---
HPI - General Adult General Chief complaint: Nausea/Vomiting/Diarrhea Stated complaint: Vomiting, diarrhea, severe abd pain Time Seen by Provider: 09/06/23 19:35 Source: patient Mode of arrival: ambulatory Limitations: no limitations History of Present Illness HPI narrative: Patient is a 43-year-old female who presents emergency department for evaluation nausea vomiting diarrhea and left upper quadrant abdominal pain. Reports symptoms have been present for 1 month. She reports that she was treated for pancreatitis, approximately 1 month ago, had an IV placed to her right forearm which had reportedly infiltrated and subsequently became infected. She states she was given oral antibiotics which she then developed the diarrhea from. She reports about 1 or 2 weeks ago being admitted to [facility] for ?lactic acidosis from all the diarrhea? she states that she was discharged ?too early and was still having pain nausea vomiting and diarrhea at the time of discharge. She does admit to a history of chronic pancreatitis which she reports was secondary to alcohol consumption. She states she has cut back significantly and is drinking infrequently at this point. She admits to her last drink being yesterday, and only had ?a twisted tea?. She is requesting Dilaudid at this time as this is the only thing that helps her pain and Reglan because Zofran does not help her nausea/vomiting. She states she has a history to morphine which results in stomach upset and vomiting. Related Data Home Medications ?Medication ?Instructions ?Recorded ?Confirmed albuterol sulfate 90 mcg/actuation 1 - 2 puff PO Q4H PRN wheezing 05/21/21 05/21/21 aerosol inhaler (ProAir HFA) aripiprazole 10 mg tablet 1 tab PO BEDTIME 05/21/21 05/21/21 buspirone 15 mg tablet 1 tab PO TID 05/21/21 05/21/21 doxepin 50 mg capsule 1 cap PO BEDTIME 05/21/21 05/21/21 gabapentin 600 mg tablet 600 mg PO TID 05/21/21 05/21/21 [id number] 2 cap PO TIDAC 05/21/21 05/21/21 12,000-38,000-60,000 unit capsule,delayed rel (Creon) lorazepam 1 mg tablet 1 mg PO TID 05/21/21 05/21/21 pantoprazole 40 mg tablet,delayed 40 mg PO DAILY@0630 05/21/21 05/21/21 release sertraline 100 mg tablet 200 mg PO DAILY 05/21/21 05/21/21 tramadol 50 mg tablet 50 mg PO TID 05/21/21 05/21/21 Previous Rx's ?Medication ?Instructions ?Recorded lamotrigine 100 mg tablet 150 mg (1.5 x 100 mg) PO BID 30 02/18/20 days #90 tabs prazosin 5 mg capsule 5 mg PO BEDTIME 30 days #30 caps 02/18/20 trazodone 100 mg tablet 100 mg PO BEDTIME 30 days #30 tabs 02/18/20 Allergies Allergy/AdvReac Type Severity Reaction Status Date / Time morphine AdvReac Gastrointestinal Verified 09/06/23 14:42 Upset bees Allergy Severe Anaphylaxis Uncoded 09/06/23 14:42 Review of Systems 2 Review of Systems: Yes all other systems are reviewed and are negative [facility] Past Medical History Attestation statement: The following information was validated with the patient. Source: old records reviewed Medical History Back pain Alcohol use disorder, severe, dependence Gastritis Gastritis Endometriosis Constipation Anxiety Depression Bipolar disorder Suicidal behavior PTSD (post-traumatic stress disorder) Surgical History History of ankle surgery Social History Social History Household Members: Significant Other, Children and Unknown / Unable to assess Housing: House Do you presently have visiting nurse or other home services: No Alcohol intake: current Comment: pt reports no effects as of yet Smoked in Last 30 Days: No Second Hand Smoke Exposure: Yes Use of substances other than those prescribed or required for medical reasons: No Substance Use Type: Crack/Cocaine Advance Directives: No Advance Directives Information Provided: No service: No Sexual orientation: Straight/Heterosexual Physical Exam ED Vital Signs: Vital Signs - 24 hr 09/06/23 14:39 09/06/23 20:07 09/06/23 21:25 Temperature 97.5 F 98.7 F Pulse Rate 97 108 H 85 Respiratory Rate 16 20 16 Blood Pressure 127/91 H 136/96 H 132/87 Pulse Oximetry 96 95 94 Oxygen Delivery Method Room Air Room Air Room Air 09/06/23 23:55 Temperature Pulse Rate 79 Respiratory Rate 16 Blood Pressure 121/63 Pulse Oximetry 95 Oxygen Delivery Method Room Air BMI result Body Mass Index 28.3 Appearance: Alert.?Oriented to person, place and time. No acute distress.?Normal affect. Eyes: Pupils equal, round and reactive to light.? ENT: Pharynx normal.?? Neck: Normal inspection.? Neck supple.?? CVS: Heart sounds normal. Normal heart rate and rhythm.? Pulses normal.?? Respiratory: No respiratory distress.? Lung sounds clear to auscultation bilaterally?? Abdomen: Soft rounded, with diffuse upper quadrant tenderness upon palpation. Normoactive bowel sounds. Skin: Skin warm and dry.? Normal skin color.? Extremities: No lower extremity edema.? Neuro: Moves all extremities spontaneously. Sensation intact bilaterally. Ambulates with normal steady gait. Course Course Course Narrative: RME- 43 year old female presents for evaluation of abdominal pain, nausea, and diarrhea. Plan for labs, UA. Symptoms started about 1 month ago. The patient reports that she was admitted to [facility] last week for ?lactic acidosis. ? Reevaluation(s) Reevaluation #1: Received records from [facility], she was admitted 08/29/2023 and discharged 08/31/2023; admitted for acute on chronic pancreatitis, gastritis, lactic acidosis, ultimately she was discharged reportedly tolerating full liquid diet and improvement in pain (Dilaudid transitioned to oxycodone) and was advised to advance diet slowly over the course of the next week with soft diet and then full regular. Reevaluation #2: She reports only minimal improvement in pain after IV Dilaudid, she feels as though she needs to be admitted inpatient for further management. CT of the abdomen and pelvis reveals dilated pancreatic duct may be secondary to chronic pancreatitis versus possible occult obstructive lesion, unfortunately on review of records from [facility], I do not see prior CT results for comparison. spoke with hospitalist, Dr. Junior for admission of chronic pancreatitis and pain management. Time: 23:43 Medications Administered Discontinued Medications Generic Name Dose Route Start Last Admin Trade Name Freq PRN Reason Stop Dose Admin Hydromorphone HCl 1 mg 09/06/23 21:17 09/06/23 21:23 Hydromorphone Hcl 1 Mg/Ml Syringe IVPUSH 09/06/23 21:18 1 mg ONCE ONE Administration Protocol Hydromorphone HCl 1 mg 09/06/23 23:39 09/06/23 23:55 Hydromorphone Hcl 1 Mg/Ml Syringe IVPUSH 09/06/23 23:40 1 mg ONCE ONE Administration Protocol Sodium Chloride 1,000 mls @ 999 mls/hr 09/06/23 20:15 09/06/23 22:55 Ns IV 09/06/23 21:15 Infused .Q1H1M ELIZABETH Infusion Iohexol 85 ml 09/06/23 22:23 09/06/23 22:24 Iohexol 350 Mg/Ml 100 Ml Infus..Btl IV 09/06/23 22:24 85 ml ONCE ONE Administration Metoclopramide HCl 10 mg 09/06/23 20:05 09/06/23 20:23 Metoclopramide Hcl 10 Mg/2 Ml Vial IVPUSH 09/06/23 20:06 10 mg ONCE ONE Administration Morphine Sulfate 4 mg 09/06/23 20:05 09/06/23 20:23 Morphine Sulfate 4 Mg/Ml Cartridge IVPUSH 09/06/23 20:06 4 mg ONCE ONE Administration Protocol Medical Decision Making Medical Decision Making MDM Narrative: Patient is a 43-year-old female with past medical history of gastritis, constipation, anxiety, depression, bipolar disorder, PTSD, chronic pancreatitis presenting to emergency department for evaluation of abdominal pain with nausea vomiting diarrhea x1 month as per HPI. Will obtain CBC to evaluate for leukocytosis/ anemia, CMP and lipase to evaluate for abnormal electrolytes /abnormal renal function/ abnormal hepatic/biliary function, CT of the abdomen and pelvis and Urinalysis/stool testing/C diff. will attempt to obtain records from [facility] for further evaluation. Differential Diagnosis Differential Diagnoses: The differential diagnosis associated with the presentation includes (Acute on chronic pancreatitis, C difficile, diverticulitis, viral syndrome) Admission/Observation Consideration of admission/observation: Escalation of care including admission/observation considered (See narrative above and course narrative for further detail) Lab Data MDM Lab Attestation statement: I reviewed the patient's lab results. CBC is without leukocytosis or anemia. No electrolyte derangement. No VERONIKA. Mildly elevated AST/ALT consistent with prior, lipase within normal limits. No lactic acidosis. Urinalysis without evidence of infection or microscopic hematuria. C difficile negative. 09/06/23 15:24 09/06/23 15:24 Labs: Lab Results 09/06/23 09/06/23 09/06/23 Range/Units 15:24 20:10 20:30 WBC 8.9 (4.8-10.8) X10*3/uL RBC 4.45 (4.20-5.50) X10*6/uL Hgb 14.0 (12.0-16.0) g/dl Hct 41.3 (37.0-47.0) % MCV 92.8 (80.0-98.0) fL MCH 31.5 (27.0-33.0) pg MCHC 33.9 (31.0-35.0) g/dl RDW 13.6 (11.0-16.0) % Plt Count 303 (160-400) X10*3/uL MPV 8.9 L (9.4-12.3) fL Immature Gran % (Auto) 0.4 (0.0-0.4) % Neut % (Auto) 55.8 (45-73) % Lymph % (Auto) 32.3 (20-40) % Cole % (Auto) 8.7 (2-11) % Eos % (Auto) 2.1 (0-4) % Baso % (Auto) 0.7 (0-2) % Lymph # (Auto) 2.9 (1.2-4.9) X10*3/uL Cole # (Auto) 0.8 (0.1-1.2) X10*3/uL Eos # (Auto) 0.2 (0.0-0.4) X10*3/uL Baso # (Auto) 0.1 (0.0-0.2) X10*3/uL Abs Immat Gran (auto) 0.04 H (0.00-0.03) X10*3/uL Absolute Neuts (auto) 5.0 (2.0-8.3) x10*3/uL Absolute Nucleated RBC 0.000 (0.0-0.012) X10*3/uL Nucleated RBC % (auto) 0.0 (0.0-0.2) /100WBC Sodium 138 (135-145) mmol/L Potassium 4.0 (3.3-5.1) mmol/L Chloride 102 (96-108) mmol/L Carbon Dioxide 25 (22-29) mmol/L Anion Gap 15 (12-20) BUN 5 L (9-16) mg/dL Creatinine 1.30 (0.5-1.4) mg/dL Estim Creat Clear Calc 56.1 Estimated GFR 44 Random Glucose 115 (60-115) mg/dL Lactic Acid 1.9 (0.5-2.0) mmol/L Calcium 8.8 (8.4-10.2) mg/dL Total Bilirubin 0.5 (0.0-1.0) mg/dL AST 128 H (5-31) U/L ALT 86 H (0-31) U/L Alkaline Phosphatase 84 (39-117) U/L Total Protein 7.3 (6.5-8.0) g/dL Albumin 4.1 (3.5-5.0) g/dL Lipase 16 (8-78) U/L Beta HCG, Quant 7 mIU/mL Urine Color Yellow Urine Appearance Clear Urine pH 6.5 (5.0-9.0) Ur Specific [place] 1.025 (1.005-1.025) Urine Protein Negative (Neg-Trace) mg/dL Urine Glucose (UA) Negative (Negative) mg/dL Urine Ketones Negative (Negative) mg/dL Urine Blood Negative (Negative) Urine Nitrite Negative (Negative) Ur Leukocyte Esterase Negative (Negative) Urine RBC 0-2 (0-2) /HPF Urine WBC 0-5 (0-5) /HPF Ur Squamous Epith Cells 3-5 (0-2) /HPF Urine Bacteria None Seen (None Seen) Hyaline Casts 0-2 (0-2) /LPF C. difficile Tox B Gene NEGATIVE (Negative) Radiology Impression Discussion of test interpretation with radiology: I have reviewed the radiologist's reading. Radiologist Impression: CT/CT abdomen pelvis w IV con IMPRESSION: 1. No CT evidence of acute intra-abdominal process to explain patient's pain symptoms. 2. Atrophic pancreas with multiple punctate pancreatic calcifications most likely sequela of chronic pancreatitis. 3. there is dilatation of the pancreatic duct measuring 5 mm although could be also sequela of prior or chronic pancreatitis, this has newly developed since prior CT scan, cannot rule out underlying occult obstruction lesion at the level of the head of the pancreas or ampulla. Would recommend correlation with follow-up outpatient MRI/MRCP. 4. Diffusely hypodense liver suggesting hepatic steatosis. External Record Review External record reviewed: Inpatient record (See course narrative) and Outside ED record (See course narrative) Critical Care Time Critical Care Time Critical Care Time: Yes Total Critical Care Time: 60 Attestation: I personally attest to this critical care time spent taking care of the patient exclusive of all other billable procedures was approximately 60 minutes including initial evaluation of patient, ordering tests, pain management, medical consultation, documentation, re-evaluation. Discharge Plan Discharge Clinical Impression: Pancreatitis Patient Disposition: Admitted As Inpatient
[2023-09-06 14:39] VITALS: BP 127/91; PULSE 97; RESP 16; TEMP 36.4; O2SAT 96; BMI 28.3
[2023-09-06 15:30] LABS: MANUAL DIFF FLAG NO
[2023-09-06 15:36] LABS: Basophils Absolute Auto 0.1 X10*3/uL (0.0-0.2); Basophils Percent Auto 0.7 % (0-2); Eosinophils Absolute Auto 0.2 X10*3/uL (0.0-0.4); Eosinophils Percent Auto 2.1 % (0-4); Hematocrit 41.3 % (37.0-47.0); Imm Gran Abs Auto 0.04 X10*3/uL (0.00-0.03); Imm Gran Pct Auto 0.4 % (0.0-0.4); Lymphocytes Absolute Auto 2.9 X10*3/uL (1.2-4.9); Lymphocytes Percent Auto 32.3 % (20-40); Mean Corpuscular HGB Conc 33.9 g/dl (31.0-35.0); Mean Corpuscular Hemoglobin 31.5 pg (27.0-33.0); Mean Corpuscular Volume 92.8 fL (80.0-98.0); Mean Platelet Volume 8.9 fL (9.4-12.3); Monocytes Absolute Auto 0.8 X10*3/uL (0.1-1.2); Monocytes Percent Auto 8.7 % (2-11); Neutrophils Percent Auto 55.8 % (45-73); Platelet Count 303 X10*3/uL (160-400); Red Blood Count 4.45 X10*6/uL (4.20-5.50); Red Cell Distribution Width 13.6 % (11.0-16.0); White Blood Count 8.9 X10*3/uL (4.8-10.8)
--- OUTSIDE RECORDS SUMMARY | 2023-09-06 15:41 | XMS_ITS | Continuity of Care Document ---
Author Organization [facility] Primary [place] Address [address] [place] [address]- Care Team Providers Care Set Up Operator Tool Name Role Phone Helena GALLEGOS, Marissa Hernandez Primary Care Physician Encounter [facility] Date(s): 11/17/22 - 12/17/22 [facility] [place] [address] [place], [place] [address] Allergies, Adverse Reactions, Alerts Substance Reaction Severity Status ibuprofen Active acetaminophen Active Bee Stings Active Pollen Active Immunizations Given and Recorded Vaccine Date Status Refusal Reason influenza virus vaccine, inactivated 04/16/22 Give n influenza virus vaccine, inactivated 02/12/20 [facility] r[facility] influenza virus vaccine, inactivated 04/20/17 Give n tetanus/diphtheria/pertussis, acel(Tdap) 04/20/17 Given pneumococcal 23-valent vaccine 07/21/16 Given Not Given Vaccine Date Status Refusal Reason influenza virus vaccine, inactivated 02/24/22 Not Given Patient Refuses pneumococcal 23-valent vaccine 01/07/15 Not Given Patient Refuses pneumococcal 23-valent vaccine 11/15/14 Not Given Patient Refuses pneumococcal 23-valent vaccine 09/27/14 Not Given Patient Refuses pneumococcal 23-valent vaccine 07/05/14 Not Given Parent Or Guardian Refuses Medications Abilify 10 mg oral tablet 10 mg, 1, tablet, By Mouth, Daily at bedtime, # 30 tablet, Refills 3, Tot. Refills 3, Maintenance, 11/15/22 14:23:00 EDT, Route to Pharmacy Electronically, [facility] #[id number], 165, cm, 11/10/22 10:56:00 EDT, Height, 79, kg, 11/10/22 10:56:00... Start Date: 11/15/22 Stop Date: 03/15/23 Status: Ordered acamprosate 333 mg oral delayed release tablet 2 tablet = 666 mg, By Mouth, 3 times a day, # 180 tablet, 0 Refills, Maintenance, 04/19/22 12:37:00EST, CR Tablet, [facility] 3, Partial fill upon patient request if the prescription is for a schedule II opioid drug., lali Finley, 04/19/22 11... Start Date: 04/19/22 Stop Date: 05/19/22 Status: Ordered amoxicillin-clavulanate 875 mg-125 mg oral tablet 1 tablet, By Mouth, Every 12 hours, for 7 days, # 14 tablet, 0 Refills, Acute 12/23/22 18:13:00 EDT, 12/16/22 18:13:00 EDT, Tablet, [facility] #[id number], Partial fill upon patient request if the prescription is for a schedule II opioid drug., 1... Start Date: 12/16/22 Stop Date: 12/23/22 Status: Ordered busPIRone 15 mg oral tablet 1 tablet = 15 mg, By Mouth, 3 times a day, # 90 tablet, 3 Refills, Maintenance, 11/15/22 14:23:00 EDT, Tablet, [facility] #[id number], Partial fill upon patient request if the prescription is for a schedule II opioid drug., lali Finley, 11/10/22 10:5... Start Date: 11/15/22 Stop Date: 03/15/23 Status: Ordered Creon 36,000 units oral delayed release capsule 1 capsule, By Mouth, 3 times a day, # 90 capsule, 3 Refills, Maintenance, 06/08/22 9:09:00 EST, [facility] #[id number], Partial fill upon patient request if the prescription is for a schedule IIopioid drug., 1 capsule By Mouth 3 times a day, 165... Start Date: 06/08/22 Status: Ordered doxepin 50 mg oral capsule 1 capsule = 50 mg, By Mouth, Daily at bedtime, # 30 capsule, 3 Refills, Maintenance, 11/15/22 14:23:00 EDT, Capsule, [facility] #[id number], 165, cm, 11/10/22 10:56:00 EDT, Height, 79, kg, 11/10/22 10:56:00 EDT, Dry Weight Start Date: 11/15/22 Stop Date: 03/15/23 Status: Ordered gabapentin 600 mg oral tablet See Instructions, 1 tablet in the morning and 2 tablets at bedtime, # 90 tablet, 3 Refills, Maintenance, 11/15/22 14:24:00 EDT, Tablet, [facility] #[id number], 165, cm, 11/10/22 10:56:00 EDT, Height, 79, kg, 11/10/22 10:56:00 EDT, Dry Weight Start Date: 11/15/22 Status: Ordered Lidocaine Viscous 2% solution See Instructions, Swish and spit 5-10 ml up to every 3 hours as needed for throat pain, # 60 mL, 0 Refills, Acute 12/21/22 18:14:00 EDT, 12/16/22 18:13:00 EDT, [facility] #[id number], Partial fill upon patient request if the prescription is for a... Start Date: 12/16/22 Stop Date: 12/21/22 Status: Ordered Lidocaine Viscous 2% solution 5 mL = 0.1 Gm, Topically, 3 times a day before meals and bedtime, PRN for mouth sore pain, # 20 mL,0 Refills, Acute 12/19/22 16:11:00 EDT, 12/12/22 16:11:00 EDT, Solution, [facility] #[id number], Partial fill upon patient request if the prescrip... Start Date: 12/12/22 Stop Date: 12/19/22 Status: Ordered LORazepam 1 mg oral tablet 1 tablet = 1 mg, By Mouth, 3 times a day, PRN as needed for anxiety, # 90 tablet, 3 Refills, Maintenance, 11/15/22 14:24:00 EDT, Tablet, [facility] #[id number], Partial fill upon patient requestif the prescription is for a schedule II opioid elijah... Start Date: 11/15/22 Stop Date: 03/15/23 Status: Ordered multivitamin Multiple Vitamins oral tablet 1 tablet, By Mouth, Daily, # 30 tablet, 1 Refills, Maintenance, 10/01/19 11:23:00 EDT, Tablet, [facility]-, 1 tablet By Mouth Daily,x30 days, 165.1, cm, 10/01/19 8:37:00 EDT, Height, 80.1, kg, 09/19/19 16:30:00 EDT, Dry Weight Start Date: 10/01/19 Stop Date: 11/30/19 Status: Ordered pantoprazole 40 mg oral delayed release tablet 1 tablet, By Mouth, Daily, # 90 tablet, 3 Refills, Maintenance, 03/30/22 17:46:00 EST, 165, cm, 03/30/22 16:47:00 EST, Height, 83, kg, 02/23/22 0:48:00 EDT, Dry Weight Start Date: 03/30/22 Status: Ordered prazosin 5 mg oral capsule 5 mg, 1, capsule, By Mouth, Daily at bedtime, # 90 capsule, Refills 0, Tot. Refills 0, Maintenance,11/15/22 14:24:00 EDT, Route to Pharmacy Electronically, [facility] #[id number], 165, cm, 11/10/22 10:56:00 EDT, Height, 79, kg, 11/10/22 10:56:00... Start Date: 11/15/22 Stop Date: 02/13/23 Status: Ordered traZODone 100 mg oral tablet 100 mg, 1, tablet, By Mouth, Daily at bedtime, TAKE 1 TABLET BY MOUTH EVERY NIGHT AT BEDTIME, # 30 tablet, Refills 3, Tot. Refills 3, Maintenance, 11/15/22 14:24:00 EDT, Route to Pharmacy Electronically, [facility] #[id number], Partial fill upon... Start Date: 11/15/22 Stop Date: 03/15/23 Status: Ordered valACYclovir 500 mg oral tablet 500 mg, 1, tablet, By Mouth, 2 times a day, # 6 tablet, Refills 1, Tot. Refills 1, Maintenance, 11/10/22 11:16:00 EDT, Route to Pharmacy Electronically, [facility] #[id number], Partial fill uponpatient request if the prescription is for a schedu... Start Date: 11/10/22 Stop Date: 11/16/22 Status: Ordered Problem List Condition Confirmation Course Effective Dates Status H ealth Status Informant Abnormal uterine bleeding Confirmed Active Acute pancreatitis Confirmed Active Alcohol use disorder, severe, in early remission, in controlled environment, dependence Confirmed Active Alcohol dependence Confirmed Active Alcohol withdrawal-induced seizure 1 Confirmed Active Alcoholic hepatitis Confirmed Active Alcoholic liver disease Confirmed Active Attempted suicide - hanging Confirmed 06/27/19 Active Mass of right breast Confirmed Active Alcohol dependence in early, early partial, sustained full, or sustained partial remission Confirmed Active Chronic low back pain Confirmed Active Pancreatitis, chronic Confirmed Active Depression Confirmed Active Endometriosis Confirmed Active Abdominal pain, epigastric Confirmed Active Gastritis Confirmed Active Cold sore Confirmed Active Iron deficiency anemia Confirmed Active Low back pain without sciatica Confirmed Active Macrocytic anemia Confirmed Active Menometrorrhagia Confirmed Active Mood disorder Confirmed Active Encounter for preventive health examination Confirmed Active Post traumatic stress disorder (PTSD) Confirmed Active Major depressive disorder, recurrent episode, moderate degree Confirmed Active Severe alcohol dependence Confirmed Active Sprain of ribs Confirmed Active 1Reports HX several times previously Social History Social History Type Response Smoking Status Current every day sm [place]; Tobacco user in household: Yes entered on: 05/01/14 Sex Patient Care team information Care Team Personnel Name: Marissa Malik NP Position: [facility] PCO Associate Professional Member Role: PCP Address: Address: [address] [place] [id number] Name: Elisa Lamar RN Position: [facility] RN Member Role: Primary Care Nurse Name: Zo Segal RN Position: [facility] Nurse Member Role: Primary Care Nurse Name: Antonia Mtz RN Position: [facility] RN Member Role: Primary Care Nurse Name: Milla Emmanuel RN Position: [facility] RN Member Role: Primary Care Nurse Name: Carol Min [place] Position: [facility] RN Member Role: Primary Care Nurse Name: Katt Gustafson Position: [facility] RN Member Role: Primary Care Nurse Name: Ashely Pacheco Position: [facility] RN Member Role: Primary Care Nurse Name: Miri Espitia RN Position: [facility] Nurse Member Role: Primary Care Nurse Name: Maksim Hunt III, RN Position: [facility] RN Member Role: Primary Care Nurse Name: Elisa Fields RN Position: [facility] RN Member Role: Primary Care Nurse Name: Aron Mcginnis RN Position: [facility] SN RN Member Role: Primary Care Nurse Name: Natalia Plata RN Position: [facility] RN Member Role: Primary Care Nurse Name: Kacy Barnhart RN Position: [facility] RN Member Role: Primary Care Nurse Name: Guerline Ramirez RN Position: [facility] RN Member Role: Primary Care Nurse Name: Ashlyn Cordova RN Position: [facility] Onco RN Member Role: Primary Care Nurse Name: Jennifer Ignacio RN Position: [facility] RN Member Role: Primary Care Nurse Care Team Related Persons Name: KORY NGO Address: home [address] [address] Name: TEVIN WILL Address: home [address] [place] [address] Name: ALEX WILL Address: home [address] [place] [address] Name: ALEX ROPER Address: home [address] [place] [address]
--- OUTSIDE RECORDS SUMMARY | 2023-09-06 15:41 | XMS_ITS | Continuity of Care Document ---
Author Organization [facility] Primary [facility] [place] Address [address] [place] [address]- Care Team Providers Care Recording Engineer Name Role Phone Helena GALLEGOS, Marissa Hernandez Primary Care Physician Encounter [facility] Date(s): 09/16/22 - 10/16/22 [facility] [address] [place], [place] [address] Attending Physician: Gualberto Moralez Admitting [...] tablet, Refills 3, Tot. Refills 3, Maintenance, 08/16/22 13:06:00 EDT, Route to Pharmacy Electronically, [facility] #[id number], 165, cm, 07/19/22 13:50:00 EDT, Height, 77.5, kg, 07/19/22 13:50:0... Start Date: 08/16/22 Stop Date: 12/14/22 Status: Ordered acamprosate 333 mg oral delayed release tablet 2 tablet = 666 mg, By Mouth, 3 times a day, # 180 tablet, 0 Refills, Maintenance, 04/19/22 12:37:00EST, CR Tablet, [facility] 3, Partial fill upon patient request if the prescription is for a schedule II opioid drug., 165, cm, 04/19/22 11... Start Date: 04/19/22 Stop Date: 05/19/22 Status: Ordered busPIRone 15 mg oral tablet 1 tablet = 15 mg, By Mouth, 3 times a day, # 90 tablet, 3 Refills, Maintenance, 08/16/22 13:06:00 EDT, Tablet, [facility] #[id number], Partial fill upon patient request if the prescription is for a schedule II opioid drug., 165, cm, 07/19/22 13:5... Start Date: 08/16/22 Stop Date: 12/14/22 Status: Ordered Creon 36,000 units oral delayed release capsule 1 capsule, By Mouth, 3 times a day, # 90 capsule, 3 Refills, Maintenance, 06/08/22 9:09:00 EST, [facility] #[id number], Partial fill upon patient request if the prescription is for a schedule IIopioid drug., 1 capsule By Mouth 3 times a day, 165... Start Date: 06/08/22 Status: Ordered doxepin 50 mg oral capsule 1 capsule = 50 mg, By Mouth, Daily at bedtime, # 30 capsule, 3 Refills, Maintenance, 08/16/22 13:06:00 EDT, Capsule, [facility] #[id number], 165, cm, 07/19/22 13:50:00 EDT, Height, 77.5, kg, 07/19/22 13:50:00 EDT, Dry Weight Start Date: 08/16/22 Stop Date: 12/14/22 Status: Ordered fluticasone 50 mcg/inh nasal spray See Instructions, SHAKE LIQUID AND USE 1 SPRAY IN EACH NOSTRIL TWICE DAILY, # 15.8 mL, 3 Refills, 03/23/21 16:18:00 EST, [facility] #[id number], SHAKE LIQUID AND USE 1 SPRAY IN EACH NOSTRIL TWICE DAILY, 164, cm, 03/23/21 15:58:00 EST, Height, 86.... Start Date: 03/23/21 Status: Ordered gabapentin 600 mg oral tablet See Instructions, 1 tablet in the morning and 2 tablets at bedtime, # 90 tablet, 3 Refills, Maintenance, 08/16/22 13:07:00 EDT, Tablet, [facility] #[id number], 165, cm, 07/19/22 13:50:00 EDT, Height, 77.5, kg, 07/19/22 13:50:00 EDT, Dry Weight Start Date: 08/16/22 Status: Ordered HYDROmorphone 2 mg oral tablet 1 tablet = 2 mg, By Mouth, Every 6 hours, PRN as needed for pain, # 8 tablet, 0 Refills, Maintenance, 07/19/22 18:31:00 EDT, Tablet, [facility] #[id number], Partial fill upon patient request if the prescription is for a schedule II opioid drug.,... Start Date: 07/19/22 Status: Ordered loperamide 2 mg oral capsule 2 mg, 1, capsule, By Mouth, Every 3 hours, PRN, # 30 capsule, Refills 0, Tot. Refills 0, Acute 04/19/23 11:43:00 EST, [place]ool, 04/19/22 11:43:00 EST, Route to Pharmacy Electronically, [facility], Partial fill upon patient request if... Start Date: 04/19/22 Stop Date: 04/19/23 Status: Ordered LORazepam 1 mg oral tablet 1 tablet = 1 mg, By Mouth, 3 times a day, PRN as needed for anxiety, # 90 tablet, 3 Refills, Maintenance, 08/16/22 13:07:00 EDT, Tablet, [facility] #[id number], Partial fill upon patient requestif the prescription is for a schedule II opioid elijah... Start Date: 08/16/22 Stop Date: 12/14/22 Status: Ordered multivitamin Multiple Vitamins oral tablet 1 tablet, By Mouth, Daily, # 30 tablet, 1 Refills, Maintenance, 10/01/19 11:23:00 EDT, Tablet, [facility]-, 1 tablet By Mouth Daily,x30 days, 165.1, cm, 10/01/19 8:37:00 EDT, Height, 80.1, kg, 09/19/19 16:30:00 EDT, Dry Weight Start Date: 10/01/19 Stop Date: 11/30/19 Status: Ordered Narcan 4 mg/0.1 mL nasal spray = 4 mg, Nares, Both, Once, # 2 each, 0 Refills, Soft Stop, 04/19/22 12:16:00 EST, [facility] 3, Partial fill upon patient request if the prescription is for a schedule II opioid drug., 165, cm, 04/19/22 11:15:00 EST, Height, 80, kg, ... Start Date: 04/19/22 Status: Ordered pantoprazole 40 mg oral delayed release tablet 1 tablet, By Mouth, Daily, # 90 tablet, 3 Refills, Maintenance, 03/30/22 17:46:00 EST, 165, cm, 03/30/22 16:47:00 EST, Height, 83, kg, 02/23/22 0:48:00 EDT, Dry Weight Start Date: 03/30/22 Status: Ordered prazosin 5 mg oral capsule 5 mg, 1, capsule, By Mouth, Daily at bedtime, # 30 capsule, Refills 3, Tot. Refills 3, Maintenance,08/16/22 13:07:00 EDT, Route to Pharmacy Electronically, [facility] #[id number], 165, cm, 07/19/22 13:50:00 EDT, Height, 77.5, kg, 07/19/22 13:50:... Start Date: 08/16/22 Stop Date: 12/14/22 Status: Ordered traMADol 50 mg oral tablet 1 tablet = 50 mg, By Mouth, Every 8 hours, 30 each, TAKE 1 TABLET BY MOUTH EVERY 8 HOURS NEEDED FOR FOR PAIN, # 30 tablet, 0 Refills, Maintenance, 09/02/22 8:19:00 EDT, Tablet, [facility] #[id number], Partial fill upon patient request if the p... Start Date: 09/02/22 Status: Ordered traZODone 100 mg oral tablet 100 mg, 1, tablet, By Mouth, Daily at bedtime, TAKE 1 TABLET BY MOUTH EVERY NIGHT AT BEDTIME, # 30 tablet, Refills 3, Tot. Refills 3, Maintenance, 08/16/22 13:07:00 EDT, Route to Pharmacy Electronically, [facility] #[id number], Partial fill upon... Start Date: 08/16/22 Stop Date: 12/14/22 Status: Ordered Problem List Condition Confirmation Course [...] pain, epigastric Confirmed Active Gastritis Confirmed Active Iron deficiency anemia Confirmed [...] Response Smoking Status Current every day sm o[place]; Tobacco user in household: Yes entered on: 05/01/14 Sex Patient Care team information Care Team Personnel Name: Marissa Malik NP Position: [facility] PCO Associate Professional Member Role: PCP Address: Address: [address] [place] [address] [place] [address]- Name: Elisa Lamar RN Position: [facility] RN Member Role: Primary Care Nurse Name: Zo Segal RN Position: [facility] [place] Nurse Member Role: Primary Care Nurse Name: Antonia Mtz RN Position: [facility] RN Member Role: Primary Care Nurse Name: Tiffany Ugalde RN Position: [facility] RN Member Role: Primary Care Nurse Name: Katelynn Moss RN Position: [facility] RN Member Role: Primary Care Nurse Name: Milla Emmanuel RN Position: [facility] SN RN Member Role: Primary Care Nurse Name: Carol Min [place] Position: [facility] RN Member Role: Primary Care Nurse Name: Katt Gustafson Position: [facility] RN Member Role: Primary Care Nurse Name: Ashely Pacheco Position: [facility] RN Member Role: Primary Care Nurse Name: Miri Espitia RN Position: [facility] Nurse Member Role: Primary Care Nurse Name: Maksim Hunt III, RN Position: [facility] RN Member Role: Primary Care Nurse Name: Elisa Fields RN Position: [facility] RN Member Role: Primary Care Nurse Name: Aron Mcginnis RN Position: [facility] SN RN Member Role: Primary Care Nurse Name: Natalia Plata RN Position: [facility] RN Member Role: Primary Care Nurse Name: Kacy Barnhart RN Position: [facility] RN Member Role: Primary Care Nurse Name: Guerline Ramirez RN Position: [facility] RN Member Role: Primary Care Nurse Name: Ashlyn Cordova RN Position: [facility] Onco RN Member Role: Primary Care Nurse Name: Jennifer Ignacio RN Position: [facility] RN Member Role: Primary Care Nurse Care Team Related Persons Name: KORY NGO Address: home [address] [address] Name: TEVIN WILL Address: [address] [place] [address] Name: ALEX WILL Address: home [address] [place] [address] Name: ALEX ROPER Address: [address] [place] [address]
--- OUTSIDE RECORDS SUMMARY | 2023-09-06 15:41 | XMS_ITS | Continuity of Care Document ---
Author Organization [facility] ter Address [address] [place] [id number]- Care Team Providers Care Iron Miner Blasting Name Role Phone Domingo GALLEGOS, Anai Levi Primary Care Physician Encounter [facility] Date(s): 08/22/23 - 08/22/[address] [address]- Encounter Diagnosis Ankle sprain(Final) - 08/22/23 Discharge Disposition: A-D/C Home Attending Physician: Aron Reis DO Admitting Physician: Aron Reis DO Referring Physician: Not on Staff, Referring MD Allergies, Adverse Reactions, Alerts Substance Reaction Severity Status ibuprofen Active acetaminophen Active Bee Stings Active Pollen Active Immunizations Given and Recorded Vaccine Date Status Refusal Reason hepatitis B adult vaccine 01/26/23 Recorded influenza virus vaccine, inactivated 04/16/22 Give n influenza virus vaccine, inactivated 02/12/20 [facility] rded influenza virus vaccine, inactivated 04/20/17 Give n tetanus/diphtheria/pertussis, acel(Tdap) 04/20/17 Given pneumococcal 23-valent vaccine 07/21/16 Given Medications Abilify 10 mg oral tablet 10 mg, 1, tablet, By Mouth, Daily at bedtime, # 90 tablet, Refills 1, Tot. Refills 1, Maintenance, 02/03/23 13:42:00 EDT, Route to Pharmacy Electronically, [facility] #[id number], 166, cm, 12/16/22 17:39:00 EDT, Height, 77, kg, 12/12/22 16:21:00... Start Date: 02/03/23 Stop Date: 08/02/23 Status: Ordered Albuterol (Eqv-ProAir HFA) 90 mcg/inh inhalation aerosol 2 puffs, Inhalation, Every 6 hours, # 8.5 Gm, 0 Refills, Maintenance, 02/17/23 18:07:00 EDT, [facility] #[id number], Partial fill upon patient request if the prescription is for a schedule II opioid drug., 2 puffs Inhalation Every 6 hours, 166, c... Start Date: 02/17/23 Status: Ordered buPROPion 300 mg/24 hours (XL) oral tablet, extended release 1 tablet = 300 mg, By Mouth, Every 24 hours, # 90 tablet, 1 Refills, Maintenance, 06/06/23 16:18:00EST, [facility] #[id number], Partial fill upon patient request if the prescription is for a schedule II opioid drug., 165, cm, 04/02/23 23:00:00 E... Start Date: 06/06/23 Stop Date: 12/03/23 Status: Ordered Creon 36,000 units oral delayed release capsule 1 capsule, By Mouth, 3 times a day, # 90 capsule, 3 Refills, Maintenance, 06/08/22 9:09:00 EST, [facility] #[id number], Partial fill upon patient request if the prescription is for a schedule IIopioid drug., 1 capsule By Mouth 3 times a day, 165... Start Date: 06/08/22 Status: Ordered doxepin 50 mg oral capsule 1 capsule = 50 mg, By Mouth, Daily at bedtime, # 90 capsule, 1 Refills, Maintenance, 06/06/23 16:15:00 EST, Capsule, [facility] #[id number], 165, cm, 04/02/23 23:00:00 EST, Height, 77.5, kg, 04/02/23 23:00:00 EST, Dry Weight Start Date: 06/06/23 Stop Date: 12/03/23 Status: Ordered gabapentin 600 mg oral tablet See Instructions, 1 tablet in the morning and 2 tablets at bedtime, # 270 tablet, 1 Refills, Maintenance, 06/06/23 16:17:00 EST, Tablet, [facility] #[id number], 90 day supply, 165, cm, 04/02/23 23:00:00 EST, Height, 77.5, kg, 04/02/23 23:00:00 ES... Start Date: 06/06/23 Status: Ordered lamotrigine 25 mg oral tablet 75 mg, 3, tablet, By Mouth, Daily at bedtime, # 270 tablet, Refills 1, Tot. Refills 1, Maintenance,06/06/23 16:16:00 EST, Route to Pharmacy Electronically, [facility] #[id number], Partial fill upon patient request if the prescription is for a sc... Start Date: 06/06/23 Stop Date: 12/03/23 Status: Ordered lidocaine 4% topical cream See Instructions, apply 2 x per day to the R forearm, as needed for pain; not to exceed 3 applications in 24 hours, # 30 Gm, 0 Refills, Soft Stop, 08/08/23 9:15:00 EDT, Cream, [facility] to substitute similar topical lidocaine prod... Start Date: 08/08/23 Status: Ordered LORazepam 1 mg oral tablet 1 tablet = 1 mg, By Mouth, 3 times a day, PRN as needed for anxiety, # 90 tablet, 3 Refills, Maintenance, 06/06/23 16:16:00 EST, Tablet, [facility] #[id number], dose increase, 165, cm, 04/02/23 23:00:00 EST, Height, 77.5, kg, 04/02/23 23:00:00 ES... Start Date: 06/06/23 Stop Date: 10/04/23 Status: Ordered melatonin 3 mg oral tablet 1 tablet = 3 mg, By Mouth, Daily at bedtime, 0 Refills, Maintenance, 04/13/23 16:14:00 EST, Partialfill upon patient request if the prescription is for a schedule II opioid drug. Start Date: 04/13/23 Status: Ordered multivitamin Multiple Vitamins oral tablet 1 tablet, By Mouth, Daily, # 30 tablet, 1 Refills, Maintenance, 10/01/19 11:23:00 EDT, Tablet, [facility], 1 tablet By Mouth Daily,x30 days, 165.1, cm, 10/01/19 8:37:00 EDT, Height, 80.1, kg, 09/19/19 16:30:00 EDT, Dry Weight Start Date: 10/01/19 Stop Date: 11/30/19 Status: Ordered nicotine 7 mg/24 hr transdermal film, extended release 1 patch, Topically, Daily, for 28 days, # 28 patch, 0 Refills, Acute 09/05/23 8:14:00 EDT, 248:14:00 EDT, Patch, [facility], Partial fill upon patient request if the prescriptionis for a schedule II opioid drug. OK to dispense si... Start Date: 08/08/23 Stop Date: 09/05/23 Status: Ordered oxyCODONE 5 mg oral tablet 5 mg, Tablet, By Mouth, Once, Routine, 08/22/23 14:00:00 EDT, Stop date 08/22/23 14:00:00 EDT Start Date: 08/22/23 Stop Date: 08/22/23 Status: Completed pantoprazole 40 mg oral delayed release tablet 1 tablet, By Mouth, Daily, # 90 tablet, 3 Refills, Maintenance, 03/30/22 17:46:00 EST, 165, cm, 03/30/22 16:47:00 EST, Height, 83, kg, 02/23/22 0:48:00 EDT, Dry Weight Start Date: 03/30/22 Status: Ordered prazosin 5 mg oral capsule 5 mg, 1, capsule, By Mouth, Daily at bedtime, # 90 capsule, Refills 1, Tot. Refills 1, Maintenance,06/06/23 16:17:00 EST, Route to Pharmacy Electronically, [facility] #[id number], 165, cm, 04/02/23 23:00:00 EST, Height, 77.5, kg, 04/02/23 23:00:... Start Date: 06/06/23 Stop Date: 12/03/23 Status: Ordered traZODone 100 mg oral tablet 100 mg, 1, tablet, By Mouth, Daily at bedtime, TAKE 1 TABLET BY MOUTH EVERY NIGHT AT BEDTIME, # 90 tablet, Refills 1, Tot. Refills 1, Maintenance, 06/06/23 16:17:00 EST, Route to Pharmacy Electronically, [facility] #[id number], Partial fill upon... Start Date: 06/06/23 Stop Date: 12/03/23 Status: Ordered Problem List Condition Confirmation Course [...] Menometrorrhagia Confirmed Active Mood disorder Confirmed Active Obese class I Confirmed Active Encounter for preventive health examination Confirmed Active Post traumatic stress disorder (PTSD) Confirmed Active Major depressive disorder, recurrent episode, moderate degree Confirmed Active Severe alcohol dependence Confirmed Active Sprain of ribs Confirmed Active 1Reports HX several times previously Results Radiology Reports * Exam Date Time Procedure Performing Provider Status 08/22/23 11:09 AM Hand Min 3 Views Right Serena Álvarez; Jaime ut (Verified) Notes: (Hand Min 3 Views Right) Reason For Exam: with Pain;Trauma RESULT: Hand Min 3 Views Right Hand Min 3 Views Right, 3 views Hx of Present Illness: Pain after fall this morning COMPARISON: None. FINDINGS: No fractures or bone lesions. No arthritic changes. Normal soft tissues. IMPRESSION: Normal. WSN: [id number] Ordering Physician: Aron Reis Dictated By: Matt Mcginnis MD Dictated Date/Time: 08/22/23 12:36 p Reviewed By: Matt Mcginnis MD Signed By: Matt Mcginnis MD Signed Date/Time: 08/22/23 12:36 pm Transcribed By: DIPESH Transcribed Date/Time: 08/22/23 12:35 pm * Exam Date Time Procedure Performing Provider Status 08/22/23 11:09 AM Ankle Min 3 Views Right Serena Álvarez; Colin (Verified) Notes: (Ankle Min 3 Views Right) Reason For Exam: with Pain;Trauma RESULT: Ankle Min 3 Views Right Ankle Min 3 Views Right Hx of Present Illness: Pain after fall this morning COMPARISON: Right foot 02/22/2022 FINDINGS: Severe swelling over lateral malleolus. No fracture or dislocation. Intact ankle mortise and talar dome. No arthritic changes. Stable 5th metatarsal screw. Unchanged distal fibular shaft demineralization and cortical thinning. IMPRESSION: 1. Severe lateral swelling but no fracture. 2. Distal fibular shaft demineralization and cortical thinning is unchanged since 2021. Consider nonemergent dedicated right leg films to fully assess this region. WSN: [id number] Ordering Physician: Herlinda Alaniz Dictated By: Matt Mcginnis MD Dictated Date/Time: 08/22/23 12:35 p Reviewed By: Matt Mcginnis MD Signed By: Matt Mcginnis MD Signed Date/Time: 08/22/23 12:35 pm Transcribed By: DIPESH Transcribed Date/Time: 08/22/23 12:31 pm Vital Signs Most recent to oldest [Reference Range]: 1 2 3 Height 160 cm (08/22/23 2:50 PM) 160 cm (08/22/23 11:00 AM) 160 cm (08/22/23 10:41 AM) Weight 82 kg (08/22/23 2:50 PM) 82 kg (08/22/23 11:00 AM) 82 kg (08/22/23 10:41 AM) Oxygen Saturation [94-100 %] 98 % (08/22/23 12:45 PM) 98 % (08/22/23 10:41 AM) 99 % (08/22/23 10:35 AM) Pulse Rate [55-90 bpm] 103 bpm *H* (08/22/23 12:45 PM) 103 bpm *H* (08/22/23 10:41 AM) 107 bpm *H* (08/22/23 10:35 AM) Body Mass Index [18.5-24.99 kg/m2] 32.03 kg/m2 *>HHI* (08/22/23 10:41 AM) Blood Pressure [90-138/55-84 mm Hg] 128/83mm Hg (08/22/23 10:41 AM) Systolic Blood Pressure [90-138 mm Hg] 139 mm Hg *H* (08/22/23 12:45 PM) Respiratory Rate [16-30 br/min] 18 br/min (08/22/23 2:05 PM) 18 br/min (08/22/23 10:41 AM) 18 br/min (08/22/23 10:35 AM) Temperature [96.8-100.4 DegF] 98.2 DegF (08/22/23 12:45 PM) 98.6 DegF (08/22/23 10:41 AM) Mode of Delivery (Oxygen) Room air (08/22/23 10:41 AM) Room air (08/22/23 10:35 AM) Blood pressure sites Arm, left (08/22/23 12:45 PM) Arm, left (08/22/23 10:41 AM) Temperature Route Oral (08/22/23 12:45 PM) Oral (08/22/23 10:41 AM) Dry Weight 82 kg (08/22/23 2:50 PM) 82 kg (08/22/23 11:00 AM) 82 kg (08/22/23 10:41 AM) Weight Obtained Via Patient/family state d (08/22/23 10:41 AM) Dry Weight Obtained Via Patient/family s tated (08/22/23 10:41 AM) Social History Social History Type Response Smoking Status 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; Tobacco user in household: Yes entered on: 05/01/14 Sex EKG study * Event Display: ECG 12-Lead Authored Date: Please click on pdf link to open report * Event Display: ECG 12-Lead Authored Date: Ventricular Rate: 103 BPM Atrial Rate: 103 BPM P-R Interval: 140 ms QRS Duration: 74 ms Q-T Interval: 340 ms QTC Calculation(Bazett): 445 ms P [place]: 56 degrees R [place]: 60 degrees T [place]: 76 degrees Sinus tachycardia T wave abnormality, consider anterior ischemia Abnormal ECG When compared with ECG of 31-JUL-2023 17:05, No significant change was found Confirmed by SUSANNA STATON ([id number]) on 08/22/2023 11:21:09 AM [place]: SUSANNA STATON Patient Care team information Care Team Personnel Name: Elisa Lamar RN Position: S RN Member Role: Primary Care Nurse Name: Zo Segal RN Position: S [facility] Nurse Member Role: Primary Care Nurse Name: David Maldonado RN Position: S RN Member Role: Primary Care Nurse Name: Antonia Mtz RN Position: S RN Member Role: Primary Care Nurse Name: Carmina Fuentes RN Position: [facility] RN Member Role: Primary Care Nurse Name: Katelynn Moss RN Position: [facility] RN Member Role: Primary Care Nurse Name: Milla Emmanuel RN Position: [facility] SN RN Member Role: Primary Care Nurse Name: Carol Min [place] Position: [facility] RN Member Role: Primary Care Nurse Name: Katt Gustafson Position: [facility] RN Member Role: Primary Care Nurse Name: Ashely Pacheco Position: [facility] RN Member Role: Primary Care Nurse Name: Miri Espitia RN Position: [facility] AMB Nurse Member Role: Primary Care Nurse Name: Maksim Hunt III, RN Position: [facility] RN Member Role: Primary Care Nurse Name: Elisa Fields RN Position: [facility] RN Member Role: Primary Care Nurse Name: Anai Lane NP Position: [facility] PCO Associate Professional Member Role: PCP Address: Address: [address] [place] [id number] Name: Aron Mcginnis RN Position: [facility] SN RN Member Role: Primary Care Nurse Name: Natalia Plata RN Position: [facility] RN Member Role: Primary Care Nurse Name: Kacy Barnhart RN Position: [facility] RN Member Role: Primary Care Nurse Name: Guerline Ramirez RN Position: [facility] Onco RN Member Role: Primary Care Nurse Name: Vandana Muniz RN Position: [facility] RN Member Role: Primary Care Nurse Name: Ashlyn Cordova RN Position: [facility] Onco RN Member Role: Primary Care Nurse Name: Jennifer Ignacio RN Position: [facility] RN Member Role: Primary Care Nurse Care Team Related Persons Name: TATIANNA NGOOg Address: home [address] [address] Name: TEVIN WILL Address: home [address] [place] [address] Name: ALEX WILL Address: home [address] [place] [address] Name: ALEX ROPER Address: home [address] [place] [address]
--- OUTSIDE RECORDS SUMMARY | 2023-09-06 15:41 | XMS_ITS | Continuity of Care Document ---
Author Organization [facility] Address [address] [place] [address]- Care Team Providers Care Gardening Supervisor Name Role Phone Helena GALLEGOS, Marissa Hernandez Primary Care Physician Encounter [facility] Date(s): 05/03/22 - 06/02/22 [facility] [address] [place], [place] [address] Allergies, Adverse Reactions, Alerts Substance [...] tablet, Refills 3, Tot. Refills 3, Maintenance, 03/15/22 11:53:00 EST, Route to Pharmacy Electronically, [facility] #[id number], 165, cm, 02/23/22 23:48:00 EDT, Height, 83, kg, 02/23/22 0:48:00 E... Start Date: 03/15/22 Stop Date: 07/13/22 Status: Ordered acamprosate 333 mg oral delayed release tablet 2 tablet = 666 mg, By Mouth, 3 times a day, # 180 tablet, 0 Refills, Maintenance, 04/19/22 12:37:00EST, CR Tablet, [facility], Partial fill upon patient request if the prescription is for a schedule II opioid drug., 165, cm, 04/19/22 11... Start Date: 04/19/22 Stop Date: 05/19/22 Status: Ordered Creon 36,000 units oral delayed release capsule 1 capsule, By Mouth, 3 times a day, # 90 capsule, 0 Refills, Maintenance, 05/06/22 14:15:00 EST, [facility] #[id number], Partial fill upon patient request if the prescription is for a schedule II opioid drug., 1 capsule By Mouth 3 times a day, 16... Start Date: 05/06/22 Status: Ordered doxepin 50 mg oral capsule 1 capsule = 50 mg, By Mouth, Daily at bedtime, # 30 capsule, 3 Refills, Maintenance, 03/15/22 11:53:00 EST, Capsule, [facility] #[id number], 165, cm, 02/23/22 23:48:00 EDT, Height, 83, kg, 02/23/22 0:48:00 EDT, Dry Weight Start Date: 03/15/22 Stop Date: 07/13/22 Status: Ordered fluticasone 50 mcg/inh nasal spray See Instructions, SHAKE LIQUID AND USE 1 SPRAY IN EACH NOSTRIL TWICE DAILY, # 15.8 mL, 3 Refills, 03/23/21 16:18:00 EST, [facility] #[id number], SHAKE LIQUID AND USE 1 SPRAY IN EACH NOSTRIL TWICE DAILY, 164, cm, 03/23/21 15:58:00 EST, Height, 86.... Start Date: 03/23/21 Status: Ordered gabapentin 600 mg oral tablet See Instructions, 1 tablet in the morning and 2 tablets at bedtime, # 90 tablet, 3 Refills, Maintenance, 03/15/22 11:52:00 EST, Tablet, [facility] #[id number], 165, cm, 02/23/22 23:48:00 EDT, Height, 83, kg, 02/23/22 0:48:00 EDT, Dry Weight Start Date: 03/15/22 Status: Ordered loperamide 2 mg oral capsule 2 mg, 1, capsule, By Mouth, Every 3 hours, PRN, # 30 capsule, Refills 0, Tot. Refills 0, Acute 04/19/23 11:43:00 EST, Loose Stool, 04/19/22 11:43:00 EST, Route to Pharmacy Electronically, [facility], Partial fill upon patient request if... Start Date: 04/19/22 Stop Date: 04/19/23 Status: Ordered LORazepam 1 mg oral tablet 1 tablet = 1 mg, By Mouth, 2 times a day, PRN as needed for anxiety, 0 Refills, Maintenance, 04/14/22 18:54:00 EST, Tablet, Partial fill upon patient request if the prescription is for a schedule II opioid drug. Start Date: 04/14/22 Status: Ordered multivitamin Multiple Vitamins oral tablet 1 tablet, By Mouth, Daily, # 30 tablet, 1 Refills, Maintenance, 10/01/19 11:23:00 EDT, Tablet, [facility]-, 1 tablet By Mouth Daily,x30 days, 165.1, cm, 10/01/19 8:37:00 EDT, Height, 80.1, kg, 09/19/19 16:30:00 EDT, Dry Weight Start Date: 10/01/19 Stop Date: 11/30/19 Status: Ordered Narcan 4 mg/0.1 mL nasal spray = 4 mg, Nares, Both, Once, # 2 each, 0 Refills, Soft Stop, 04/19/22 12:16:00 EST, [facility], Partial fill upon patient [...] Daily at bedtime, # 30 capsule, Refills 0, Tot. Refills 0, Maintenance,05/30/22 9:45:00 EST, Route to Pharmacy Electronically, [facility] #[id number], 165, cm, 05/25/22 14:24:00 EST, Height, 80, kg, 04/14/22 3:03:00 E... Start Date: 05/30/22 Stop Date: 06/29/22 Status: Ordered prazosin 5 mg oral capsule 5 mg, 1, capsule, By Mouth, Daily at bedtime, for 30 days, # 30 capsule, Refills 3, Tot. Refills 3,Hard Stop 07/13/22 11:52:00 EST, 03/15/22 11:52:00 EST, Route to Pharmacy Electronically, [facility] #[id number], 165, cm, 02/23/22 23:48:00 EDT,... Start Date: 03/15/22 Stop Date: 07/13/22 Status: Ordered traMADol 50 mg oral tablet 1 tablet = 50 mg, By Mouth, Every 8 hours, 30 each, TAKE 1 TABLET BY MOUTH EVERY 8 HOURS NEEDED FOR FOR PAIN, # 30 tablet, 2 Refills, Maintenance, 05/26/22 8:00:00 EST, Tablet, [facility] #[id number], Partial fill upon patient request if the p... Start Date: 05/26/22 Status: Ordered traZODone 100 mg oral tablet TAKE 1 TABLET BY MOUTH EVERY NIGHT AT BEDTIME Start Date: 04/14/22 Status: Ordered Zoloft 100 mg oral tablet 2 tablet = 200 mg, By Mouth, Daily, # 60 tablet, 1 Refills, Maintenance, 03/15/22 11:52:00 EST, Tablet, [facility] #[id number], 165, cm, 02/23/22 23:48:00 EDT, Height, 83, kg, 02/23/22 0:48:00 EDT, Dry Weight Start Date: 03/15/22 Stop Date: 05/14/22 Status: Ordered Problem List Condition Confirmation Course [...] Team Personnel Name: Marissa Malik NP Position: [facility] PCO Associate Professional Member Role: PCP Address: Address: [address] [place] [id number] Name: Elisa Lamar RN Position: [facility] RN Member Role: Primary Care Nurse Name: Zo Segal RN Position: [facility] RN Member Role: Primary Care Nurse Name: Antonia Mtz RN Position: [facility] RN Member Role: Primary Care Nurse Name: Tiffany Ugalde RN Position: [facility] RN Member Role: Primary Care Nurse Name: Katelynn Moss RN Position: [facility] RN Member Role: Primary Care Nurse Name: Milla Emmanuel RN Position: [facility] AMB Nurse Member Role: Primary Care Nurse Name: Carol Cordova Position: [facility] RN Member Role: Primary Care Nurse Name: Katt Gustafson Position: [facility] RN Member Role: Primary Care Nurse Name: Ashely Pacheco Position: [facility] RN Member Role: Primary Care Nurse Name: Miri Espitia RN Position: [facility] AMB Nurse Member Role: Primary Care Nurse Name: Maksim Hunt III, RN Position: [facility] RN Member Role: Primary Care Nurse Name: Elisa Fields RN Position: [facility] RN Member Role: Primary Care Nurse Name: Aron Mcginnis RN Position: [facility] SN RN Member Role: Primary Care Nurse Name: Natalia Plata RN Position: [facility] RN Member Role: Primary Care Nurse Name: Kacy Barnhart RN Position: [facility] RN Member Role: Primary Care Nurse Name: Guerline Ramirez RN Position: [facility] RN Member Role: Primary Care Nurse Name: Ashlyn Cordova RN Position: [facility] Onco RN Member Role: Primary Care Nurse Name: Jennifer Ignacio RN Position: [facility] RN Member Role: Primary Care Nurse Care Team Related Persons Name: TATIANNA NGOOg Address: home [address] [address] Name: TEVIN WILL Address: [address] [place] [address] Name: ALEX WILL Address: [address] [place] [address] Name: ALEX ROPER Address: [address] [place] [address]
--- OUTSIDE RECORDS SUMMARY | 2023-09-06 15:41 | XMS_ITS | Continuity of Care Document ---
Author Organization [facility] Primary Car e [facility] Address [address] [place] [address]- Care Team Providers Care Thread Twister Name Role Phone Helena GALLEGOS, Marissa Hernandez Primary Care Physician Encounter [facility] Date(s): 05/17/22 - 06/16/22 [facility] Care Bean [address] [place], [place] [address] Allergies, Adverse Reactions, Alerts Substance [...] tablet, Refills 3, Tot. Refills 3, Maintenance, 06/10/22 14:19:00 EST, Route to Pharmacy Electronically, [email or web address] #[id number], 165, cm, 05/25/22 14:24:00 EST, Height, 80, kg, 04/14/22 3:03:00 E... Start Date: 06/10/22 Stop Date: 10/08/22 Status: Ordered acamprosate 333 mg oral delayed release tablet 2 tablet = 666 mg, By Mouth, 3 times a day, # 180 tablet, 0 Refills, Maintenance, 04/19/22 12:37:00EST, CR Tablet, [facility], Partial fill upon patient request if the prescription is for a schedule II opioid drug., 165, cm, 04/19/22 11... Start Date: 04/19/22 Stop Date: 05/19/22 Status: Ordered busPIRone 15 mg oral tablet 1 tablet = 15 mg, By Mouth, 3 times a day, # 90 tablet, 3 Refills, Maintenance, 06/10/22 14:24:00 EST, Tablet, [facility] #[id number], Partial fill upon patient request if the prescription is for a schedule II opioid drug., 165, cm, 05/25/22 14:2... Start Date: 06/10/22 Stop Date: 10/08/22 Status: Ordered Creon 36,000 units oral delayed release capsule 1 capsule, By Mouth, 3 times a day, # 90 capsule, 3 Refills, Maintenance, 06/08/22 9:09:00 EST, [facility] #[id number], Partial fill upon patient request if the prescription is for a schedule IIopioid drug., 1 capsule By Mouth 3 times a day, 165... Start Date: 06/08/22 Status: Ordered doxepin 50 mg oral capsule 1 capsule = 50 mg, By Mouth, Daily at bedtime, # 30 capsule, 3 Refills, Maintenance, 06/10/22 14:20:00 EST, Capsule, [facility] #[id number], 165, cm, 05/25/22 14:24:00 EST, Height, 80, kg, 04/14/22 3:03:00 EST, Dry Weight Start Date: 06/10/22 Stop Date: 10/08/22 Status: Ordered fluticasone 50 mcg/inh nasal spray See Instructions, SHAKE LIQUID AND USE 1 SPRAY IN EACH NOSTRIL TWICE DAILY, # 15.8 mL, 3 Refills, 03/23/21 16:18:00 EST, [facility] #[id number], SHAKE LIQUID AND USE 1 SPRAY IN EACH NOSTRIL TWICE DAILY, 164, cm, 03/23/21 15:58:00 EST, Height, 86.... Start Date: 03/23/21 Status: Ordered gabapentin 600 mg oral tablet See Instructions, 1 tablet in the morning and 2 tablets at bedtime, # 90 tablet, 3 Refills, Maintenance, 06/10/22 14:20:00 EST, Tablet, [facility] #[id number], 165, cm, 05/25/22 14:24:00 EST, Height, 80, kg, 04/14/22 3:03:00 EST, Dry Weight Start Date: 06/10/22 Status: Ordered loperamide 2 mg oral capsule 2 mg, 1, capsule, By Mouth, Every 3 hours, PRN, # 30 capsule, Refills 0, Tot. Refills 0, Acute 04/19/23 11:43:00 EST, Loose Stool, 04/19/22 11:43:00 EST, Route to Pharmacy Electronically, [facility], Partial fill upon patient request if... Start Date: 04/19/22 Stop Date: 04/19/23 Status: Ordered LORazepam 1 mg oral tablet 1 tablet = 1 mg, By Mouth, 3 times a day, PRN as needed for anxiety, # 90 tablet, 3 Refills, Maintenance, 06/10/22 14:21:00 EST, Tablet, [facility] #[id number], Partial fill upon patient requestif the prescription is for a schedule II opioid elijah... Start Date: 06/10/22 Stop Date: 10/08/22 Status: Ordered multivitamin Multiple Vitamins oral tablet 1 tablet, By Mouth, Daily, # 30 tablet, 1 Refills, Maintenance, 10/01/19 11:23:00 EDT, Tablet, [facility], 1 tablet By Mouth Daily,x30 days, 165.1, cm, 10/01/19 8:37:00 EDT, Height, 80.1, kg, 09/19/19 16:30:00 EDT, Dry Weight Start Date: 10/01/19 Stop Date: 11/30/19 Status: Ordered Narcan 4 mg/0.1 mL nasal spray = 4 mg, Nares, Both, Once, # 2 each, 0 Refills, Soft Stop, 04/19/22 12:16:00 EST, [facility], Partial fill upon patient request [...] 30 capsule, Refills 3, Tot. Refills 3, Maintenance,06/10/22 14:21:00 EST, Route to Pharmacy Electronically, [facility] #[id number], 165, cm, 05/25/22 14:24:00 EST, Height, 80, kg, 04/14/22 3:03:00... Start Date: 06/10/22 Stop Date: 10/08/22 Status: Ordered traMADol 50 mg oral tablet 1 tablet = 50 mg, By Mouth, Every 8 hours, 30 each, TAKE 1 TABLET BY MOUTH EVERY 8 HOURS NEEDED FOR FOR PAIN, # 30 tablet, 2 Refills, Maintenance, 06/14/22 15:23:00 EST, Tablet, [facility] #[id number], Partial fill upon patient request if the... Start Date: 06/14/22 Status: Ordered traZODone 100 mg oral tablet 100 mg, 1, tablet, By Mouth, Daily at bedtime, TAKE 1 TABLET BY MOUTH EVERY NIGHT AT BEDTIME, # 30 tablet, Refills 3, Tot. Refills 3, Maintenance, 06/10/22 14:22:00 EST, Route to Pharmacy Electronically, [facility] #[id number], Partial fill upon... Start Date: 06/10/22 Stop Date: 10/08/22 Status: Ordered Problem List Condition Confirmation Course [...] Team Personnel Name: Marissa Malik NP Position: [facility] PCO Associate Professional Member Role: PCP Address: Address: [address] [place] [id number] Name: Elisa Lamar RN Position: [facility] RN Member Role: Primary Care Nurse Name: Zo Segal [facility] RN Member Role: Primary Care Nurse Name: Antonia Mtz RN Position: [facility] RN Member Role: Primary Care Nurse Name: Tiffany Ugalde RN Position: [facility] RN Member Role: Primary Care Nurse Name: Katelynn Moss RN Position: [facility] RN Member Role: Primary Care Nurse Name: Milla Emmanuel RN Position: [facility] AMB Nurse Member Role: Primary Care Nurse Name: Carol Cordova Position: [facility] RN Member Role: Primary Care Nurse Name: Katt Gustafson Position: [facility] RN Member Role: Primary Care Nurse Name: Ashely Pacheco Position: [facility] RN Member Role: Primary Care Nurse Name: Miri Espitia RN Position: [facility] Nurse Member Role: Primary Care Nurse Name: Maksim Hunt III, RN Position: [facility] RN Member Role: Primary Care Nurse Name: Elisa Fields RN Position: [facility] RN Member Role: Primary Care Nurse Name: Aron Mcginnis RN Position: [facility] SN RN Member Role: Primary Care Nurse Name: Natalia Plata RN Position: [facility] RN Member Role: Primary Care Nurse Name: Kacy Barnhart RN Position: [facility] RN Member Role: Primary Care Nurse Name: Guerline Ramirez RN Position: [facility] RN Member Role: Primary Care Nurse Name: Ashlyn Cordova RN Position: [facility] Onco RN Member Role: Primary Care Nurse Name: Jennifer Ignacio RN Position: [facility] RN Member Role: Primary Care Nurse Care Team Related Persons Name: KORY NGO Address: home [address] [address] Name: TEVIN WILL Address: home [address] [place] [address] Name: ALEX WILL Address: home [address] [place] [address] Name: ALEX ROPER Address: home [address] [place] [address]
--- OUTSIDE RECORDS SUMMARY | 2023-09-06 15:41 | XMS_ITS | Continuity of Care Document ---
Author Organization [facility] Primary [facility] Address [address] [place] [address]- Care Team Providers Care Donor Center Technician Name Role Phone Marissa Malik NP Primary Care Physician Encounter [facility] Date(s): 04/22/22 - 05/22/22 [facility] [address] [place], [place] [address] Allergies, Adverse Reactions, Alerts Substance [...] 03/15/22 11:53:00 EST, Route to Pharmacy Electronically, [facility] #[id number], 165, cm, 02/23/22 23:48:00 EDT, Height, 83, kg, 02/23/22 0:48:00 E... Start Date: 03/15/22 Stop Date: 07/13/22 Status: Ordered acamprosate 333 mg oral delayed release tablet 2 tablet = 666 mg, By Mouth, 3 times a day, # 180 tablet, 0 Refills, Maintenance, 04/19/22 12:37:00EST, CR Tablet, [facility], Partial fill upon patient request if the prescription is for a schedule II opioid drug., 165, cm, 04/19/22 11... Start Date: 04/19/22 Stop Date: 05/19/22 Status: Ordered Creon 36,000 units oral delayed release capsule 1 capsule, By Mouth, 3 times a day, # 90 capsule, 0 Refills, Maintenance, 05/06/22 14:15:00 EST, [facility] #[id number], Partial fill upon patient request if the prescription is for a schedule II opioid drug., 1 capsule By Mouth 3 times a day, 16... Start Date: 05/06/22 Status: Ordered doxepin 50 mg oral capsule 1 capsule = 50 mg, By Mouth, Daily at bedtime, # 30 capsule, 3 Refills, Maintenance, 03/15/22 11:53:00 EST, Capsule, [facility] #[id number], 165, cm, 02/23/22 23:48:00 EDT, Height, 83, kg, 02/23/22 0:48:00 EDT, Dry Weight Start Date: 03/15/22 Stop Date: 07/13/22 Status: Ordered fluticasone 50 mcg/inh nasal spray See Instructions, SHAKE LIQUID AND USE 1 SPRAY IN EACH NOSTRIL TWICE DAILY, # 15.8 mL, 3 Refills, 03/23/21 16:18:00 EST, [facility] #[id number], SHAKE LIQUID AND USE 1 SPRAY IN EACH NOSTRIL TWICE DAILY, 164, cm, 03/23/21 15:58:00 EST, Height, 86.... Start Date: 03/23/21 Status: Ordered gabapentin 600 mg oral tablet See Instructions, 1 tablet in the morning and 2 tablets at bedtime, # 90 tablet, 3 Refills, Maintenance, 03/15/22 11:52:00 EST, Tablet, [facility] #[id number], 165, cm, 02/23/22 23:48:00 EDT, Height, 83, kg, 02/23/22 0:48:00 EDT, Dry Weight Start Date: 03/15/22 Status: Ordered loperamide 2 mg oral capsule 2 mg, 1, capsule, By Mouth, Every 3 hours, PRN, # 30 capsule, Refills 0, Tot. Refills 0, Acute 04/19/23 11:43:00 EST, Loose Stool, 04/19/22 11:43:00 EST, Route to Pharmacy Electronically, [facility], Partial fill upon patient request if... Start Date: 04/19/22 Stop Date: 04/19/23 Status: Ordered LORazepam 1 mg oral tablet 1 tablet = 1 mg, By Mouth, 2 times a day, PRN as needed for anxiety, 0 Refills, Maintenance, 04/14/22 18:54:00 EST, Tablet, Partial fill upon patient request if the prescription is for a schedule II opioid drug. Start Date: 04/14/22 Status: Ordered morphine 15 mg/8 to 12 hr oral tablet, extended release 1 tablet = 15 mg, By Mouth, Every 12 hours, # 14 tablet, 0 Refills, Maintenance, 04/19/22 13:13:00 EST, [facility] 3, Partial fill upon patient request if the prescription is for a schedule II opioid drug., 165, cm, 04/19/22 11:15:00 EST,... Start Date: 04/19/22 Stop Date: 04/26/22 Status: Ordered morphine 15 mg/8 to 12 hr oral tablet, extended release 1 tablet = 15 mg, By Mouth, Every 12 hours, # 6 tablet, 0 Refills, Maintenance, 04/30/22 16:54:00 EST, [id number], Partial fill upon patient request if the prescription is for a schedule II opioid drug., 165, cm, 04/19/22 11:15:00 EST... Start Date: 04/30/22 Stop Date: 05/03/22 Status: Ordered multivitamin Multiple Vitamins oral tablet 1 tablet, By Mouth, Daily, # 30 tablet, 1 Refills, Maintenance, 10/01/19 11:23:00 EDT, Tablet, [facility]-, 1 tablet By Mouth Daily,x30 days, 165.1, cm, 10/01/19 8:37:00 EDT, Height, 80.1, kg, 09/19/19 16:30:00 EDT, Dry Weight Start Date: 10/01/19 Stop Date: 11/30/19 Status: Ordered Narcan 4 mg/0.1 mL nasal spray = 4 mg, Nares, Both, Once, # 2 each, 0 Refills, Soft Stop, 04/19/22 12:16:00 EST, [facility], Partial fill upon patient request if [...] 30 capsule, Refills 3, Tot. Refills 3, Maintenance,03/15/22 11:52:00 EST, Route to Pharmacy Electronically, [facility] #[id number], 165, cm, 02/23/22 23:48:00 EDT, Height, 83, kg, 02/23/22 0:48:00... Start Date: 03/15/22 Stop Date: 07/13/22 Status: Ordered traZODone 100 mg oral tablet TAKE 1 TABLET BY MOUTH EVERY NIGHT AT BEDTIME Start Date: 04/14/22 Status: Ordered Zoloft 100 mg oral tablet 2 tablet = 200 mg, By Mouth, Daily, # 60 tablet, 1 Refills, Maintenance, 03/15/22 11:52:00 EST, Tablet, [facility] #[id number], 165, cm, 02/23/22 23:48:00 EDT, Height, 83, [...] Type Response Smoking Status Current every day alexandre; Tobacco user in household: Yes entered on: 05/01/14 Sex Patient Care team information Care Team Personnel Name: Marissa Malik NP Position: [facility] PCO Associate Professional Member Role: PCP Address: Address: [address] [place] [id number] Name: Elisa Lamar RN Position: [facility] RN Member Role: Primary Care Nurse Name: Zo Segal RN Position: [facility] RN Member Role: Primary Care Nurse Name: Antonia Mtz RN Position: [facility] RN Member Role: Primary Care Nurse Name: Tiffany Ugalde RN Position: [facility] RN Member Role: Primary Care Nurse Name: Katelynn Moss RN Position: [facility] RN Member Role: Primary Care Nurse Name: Milla Emmanuel RN Position: [facility] AMB Nurse Member Role: Primary Care Nurse Name: Carol Cordova Position: [facility] RN Member Role: Primary Care Nurse Name: Katt Gustafson Position: [facility] RN Member Role: Primary Care Nurse Name: [...] Care Nurse Name: Aron Mcginnis RN Position: [facility] RN Member Role: Primary Care Nurse Name: Natalia Plata RN Position: [facility] RN Member Role: Primary Care Nurse Name: Kacy Barnhart RN Position: [facility] RN Member Role: Primary Care Nurse Name: Guerline Ramirez RN Position: [facility] RN Member Role: Primary Care Nurse Name: Ashlyn Cordova RN Position: [facility] Onco RN Member Role: Primary Care Nurse Name: Jennifer Ignacio RN Position: [facility] RN Member Role: Primary Care Nurse Care Team Related Persons Name: TATIANNA NGOOg Address: home [address] [address] Name: TEVIN WILL Address: home [address] [place] [address] Name: ALEX WILL Address: [address] [place] [address] Name: ALEX ROPER Address: [address] [place] [address]
--- OUTSIDE RECORDS SUMMARY | 2023-09-06 15:41 | XMS_ITS | Continuity of Care Document ---
Author Organization [facility] Primary Car e [facility] Address [address] [place] [address]- Care Team Providers Care Supervisor Boat Outfitting Name Role Phone Helena GALLEGOS, Marissa Hernandez Primary Care Physician [phone] Encounter [facility] Date(s): 05/25/22 - 06/24/22 [facility] Care [facility] [address] [place], [place] [address] Allergies, Adverse Reactions, Alerts Substance Reaction Severity [...] 06/10/22 14:19:00 EST, Route to Pharmacy Electronically, [facility] #[id number], 165, cm, 05/25/22 14:24:00 EST, Height, 80, kg, 04/14/22 3:03:00 E... Start Date: 06/10/22 Stop Date: 10/08/22 Status: Ordered acamprosate 333 mg oral delayed release tablet 2 tablet = 666 mg, By Mouth, 3 times a day, # 180 tablet, 0 Refills, Maintenance, 04/19/22 12:37:00EST, CR Tablet, [facility], Partial fill upon patient request if the prescription is for a schedule II opioid drug., 165, cm, 04/19/22 11... Start Date: 04/19/22 Stop Date: 05/19/22 Status: Ordered busPIRone 15 mg oral tablet 1 tablet = 15 mg, By Mouth, 3 times a day, # 90 tablet, 3 Refills, Maintenance, 06/10/22 14:24:00 EST, Tablet, [facility] #[id number], Partial fill upon patient request if the prescription is for a schedule II opioid drug., 165, cm, 05/25/22 14:2... Start Date: 06/10/22 Stop Date: 10/08/22 Status: Ordered Creon 36,000 units oral delayed release capsule 1 capsule, By Mouth, 3 times a day, # 90 capsule, 3 Refills, Maintenance, 06/08/22 9:09:00 EST, [facility] #[id number], Partial fill upon patient request if the prescription is for a schedule IIopioid drug., 1 capsule By Mouth 3 times a day, 165... Start Date: 06/08/22 Status: Ordered doxepin 50 mg oral capsule 1 capsule = 50 mg, By Mouth, Daily at bedtime, # 30 capsule, 3 Refills, Maintenance, 06/10/22 14:20:00 EST, Capsule, [facility] #[id number], 165, cm, 05/25/22 14:24:00 EST, Height, 80, kg, 04/14/22 3:03:00 EST, Dry Weight Start Date: 06/10/22 Stop Date: 10/08/22 Status: Ordered fluticasone 50 mcg/inh nasal spray See Instructions, SHAKE LIQUID AND USE 1 SPRAY IN EACH NOSTRIL TWICE DAILY, # 15.8 mL, 3 Refills, 03/23/21 16:18:00 EST, [facility] #[id number], SHAKE LIQUID AND USE 1 SPRAY IN EACH NOSTRIL TWICE DAILY, 164, cm, 03/23/21 15:58:00 EST, Height, 86.... Start Date: 03/23/21 Status: Ordered gabapentin 600 mg oral tablet See Instructions, 1 tablet in the morning and 2 tablets at bedtime, # 90 tablet, 3 Refills, Maintenance, 06/10/22 14:20:00 EST, Tablet, [facility] #[id number], 165, cm, 05/25/22 14:24:00 EST, Height, 80, kg, 04/14/22 3:03:00 EST, Dry Weight Start Date: 06/10/22 Status: Ordered loperamide 2 mg oral capsule 2 mg, 1, capsule, By Mouth, Every 3 hours, PRN, # 30 capsule, Refills 0, Tot. Refills 0, Acute 04/19/23 11:43:00 EST, Loose Stool, 04/19/22 11:43:00 EST, Route to Pharmacy Electronically, [facility], Partial fill upon patient request if... Start Date: 04/19/22 Stop Date: 04/19/23 Status: Ordered LORazepam 1 mg oral tablet 1 tablet = 1 mg, By Mouth, 3 times a day, PRN as needed for anxiety, # 90 tablet, 3 Refills, Maintenance, 06/10/22 14:21:00 EST, Tablet, [facility] #[id number], Partial fill upon patient requestif the prescription is for a schedule II opioid elijah... Start Date: 06/10/22 Stop Date: 10/08/22 Status: Ordered multivitamin Multiple Vitamins oral tablet 1 tablet, By Mouth, Daily, # 30 tablet, 1 Refills, Maintenance, 10/01/19 11:23:00 EDT, Tablet, [facility], 1 tablet By Mouth Daily,x30 days, 165.1, cm, 10/01/19 8:37:00 EDT, Height, 80.1, kg, 09/19/19 16:30:00 EDT, Dry Weight Start Date: 10/01/19 Stop Date: 11/30/19 Status: Ordered Narcan 4 mg/0.1 mL nasal spray = 4 mg, Nares, Both, Once, # 2 each, 0 Refills, Soft Stop, 04/19/22 12:16:00 EST, [facility], Partial fill upon patient [...] Maintenance,06/10/22 14:21:00 EST, Route to Pharmacy Electronically, [facility] #[id number], 165, cm, 05/25/22 14:24:00 EST, Height, 80, kg, 04/14/22 3:03:00... Start Date: 06/10/22 Stop Date: 10/08/22 Status: Ordered traMADol 50 mg oral tablet 1 tablet = 50 mg, By Mouth, Every 8 hours, 30 each, TAKE 1 TABLET BY MOUTH EVERY 8 HOURS NEEDED FOR FOR PAIN, # 30 tablet, 2 Refills, Maintenance, 06/14/22 15:23:00 EST, Tablet, [facility] #[id number], Partial fill upon patient request if the... Start Date: 06/14/22 Status: Ordered traZODone 100 mg oral tablet 100 mg, 1, tablet, By Mouth, Daily at bedtime, TAKE 1 TABLET BY MOUTH EVERY NIGHT AT BEDTIME, # 30 tablet, Refills 3, Tot. Refills 3, Maintenance, 06/10/22 14:22:00 EST, Route to Pharmacy Electronically, [facility] #[id number], Partial fill upon... Start Date: 06/10/22 Stop [...] Team Personnel Name: Marissa Malik NP Position: [facility] PCO Associate Professional Member Role: PCP Address: Address: [address] [place] [id number] Name: Elisa Lamar RN Position: [facility] RN Member Role: Primary Care Nurse Name: Zo Segal RN [facility] RN Member Role: Primary Care Nurse Name: Antonia Mtz RN Position: [facility] RN Member Role: Primary Care Nurse Name: Tiffany Ugalde RN Position: [facility] RN Member Role: Primary Care Nurse Name: Katelynn Moss RN Position: [facility] RN Member Role: Primary Care Nurse Name: Milla Emmanuel RN Position: [facility] AMB Nurse Member Role: Primary Care Nurse Name: Carol Cordova Position: [facility] RN Member Role: Primary Care Nurse Name: Katt Gustafson Position: [facility] RN Member Role: Primary Care Nurse Name: Ashely Pacheco Position: [facility] RN Member Role: Primary Care Nurse Name: Miri Espitia RN Position: [facility] Nurse Member Role: Primary Care Nurse Name: Maksim Hunt III, RN Position: [facility] RN Member Role: Primary Care Nurse Name: Elisa Fields RN Position: [facility] RN Member Role: Primary Care Nurse Name: Aron Mcginnis RN Position: [facility] SN RN Member Role: Primary Care Nurse Name: Natalia Plata RN Position: [facility] RN Member Role: Primary Care Nurse Name: Kacy Barnhart RN Position: [facility] RN Member Role: Primary Care Nurse Name: Guerline Ramirez RN Position: [facility] RN Member Role: Primary Care Nurse Name: Ashlyn Cordova RN Position: [facility] Onco RN Member Role: Primary Care Nurse Name: Jennifer Ignacio RN Position: [facility] RN Member Role: Primary Care Nurse Care Team Related Persons Name: KORY NGO Address: home [address] [address] Name: TEVIN WILL Address: [address] [place] [address] Name: ALEX WILL Address: [address] [place] [address] Name: ALEX ROPER Address: [address] [place] [address]
--- OUTSIDE RECORDS SUMMARY | 2023-09-06 15:41 | XMS_ITS | Continuity of Care Document ---
Author Organization [facility] [place] Address [address] [place] [address]- Care Team Providers Care Counter Maker Name Role Phone Marissa Malik NP Primary Care Physician Encounter [facility] Date(s): 03/30/22 - 04/29/22 [facility] [address] [place], [place] [address] Attending Physician: Gualberto Moralez Admitting Physician: AdmGualberto [...] 03/15/22 11:53:00 EST, Route to Pharmacy Electronically, [facility] #[id number], 165, cm, 02/23/22 23:48:00 EDT, Height, 83, kg, 02/23/22 0:48:00 E... Start Date: 03/15/22 Stop Date: 07/13/22 Status: Ordered acamprosate 333 mg oral delayed release tablet 2 tablet = 666 mg, By Mouth, 3 times a day, # 180 tablet, 0 Refills, Maintenance, 04/19/22 12:37:00EST, CR Tablet, [facility], Partial fill upon patient request if the prescription is for a schedule II opioid drug., 165, cm, 04/19/22 11... Start Date: 04/19/22 Stop Date: 05/19/22 Status: Ordered Creon 12,000 units oral delayed release capsule 2 capsule, By Mouth, 3 times a day, # 180 capsule, 6 Refills, Maintenance, 03/30/22 17:46:00 EST, [facility] #[id number], 165, cm, 03/30/22 16:47:00 EST, Height, 83, kg, 02/23/22 0:48:00 EDT, Dry Weight Start Date: 03/30/22 Status: Ordered doxepin 50 mg oral capsule 1 capsule = 50 mg, By Mouth, Daily at bedtime, # 30 capsule, 3 Refills, Maintenance, 03/15/22 11:53:00 EST, Capsule, [facility] #[id number], 165, cm, 02/23/22 23:48:00 EDT, Height, 83, kg, 02/23/22 0:48:00 EDT, Dry Weight Start Date: 03/15/22 Stop Date: 07/13/22 Status: Ordered fluticasone 50 mcg/inh nasal spray See Instructions, SHAKE LIQUID AND USE 1 SPRAY IN EACH NOSTRIL TWICE DAILY, # 15.8 mL, 3 Refills, 03/23/21 16:18:00 EST, [facility] #[id number], SHAKE LIQUID AND USE 1 SPRAY IN EACH NOSTRIL TWICE DAILY, 164, cm, 03/23/21 15:58:00 EST, Height, 86.... Start Date: 03/23/21 Status: Ordered gabapentin 600 mg oral tablet See Instructions, 1 tablet in the morning and 2 tablets at bedtime, # 90 tablet, 3 Refills, Maintenance, 03/15/22 11:52:00 EST, Tablet, [facility] #[id number], 165, cm, 02/23/22 23:48:00 EDT, Height, 83, kg, 02/23/22 0:48:00 EDT, Dry Weight Start Date: 03/15/22 Status: Ordered loperamide 2 mg oral capsule 2 mg, 1, capsule, By Mouth, Every 3 hours, PRN, # 30 capsule, Refills 0, Tot. Refills 0, Acute 04/19/23 11:43:00 EST, Loose Stool, 04/19/22 11:43:00 EST, Route to Pharmacy Electronically, [facility], Partial fill upon patient [...] tablet, 0 Refills, Maintenance, 04/19/22 13:13:00 EST, [facility], Partial fill upon patient request if the prescription is for a schedule II opioid drug., 165, cm, 04/19/22 11:15:00 EST,... Start Date: 04/19/22 Stop Date: 04/26/22 Status: Ordered multivitamin Multiple Vitamins oral tablet 1 tablet, By Mouth, Daily, # 30 tablet, 1 Refills, Maintenance, 10/01/19 11:23:00 EDT, Tablet, [facility]-, 1 tablet By Mouth Daily,x30 days, 165.1, cm, 10/01/19 8:37:00 EDT, Height, 80.1, kg, 09/19/19 16:30:00 EDT, Dry Weight Start Date: 10/01/19 Stop Date: 11/30/19 Status: Ordered Narcan 4 mg/0.1 mL nasal spray = 4 mg, Nares, Both, Once, # 2 each, 0 Refills, Soft Stop, 04/19/22 12:16:00 EST, [facility], Partial fill upon patient [...] Maintenance,03/15/22 11:52:00 EST, Route to Pharmacy Electronically, [facility] #[id number], 165, cm, 02/23/22 23:48:00 EDT, Height, 83, kg, 02/23/22 0:48:00... Start Date: 03/15/22 Stop Date: 07/13/22 Status: Ordered traZODone 100 mg oral tablet TAKE 1 TABLET BY MOUTH EVERY NIGHT AT BEDTIME Start Date: 04/14/22 Status: Ordered Zoloft 100 mg oral tablet 2 tablet = 200 mg, By Mouth, Daily, # 60 tablet, 1 Refills, Maintenance, 03/15/22 11:52:00 EST, Tablet, [facility] #[id number], 165, cm, 02/23/22 23:48:00 EDT, Height, 83, [...] Team Personnel Name: Marissa Malik NP Position: [facility]O Associate Professional Member Role: PCP Address: Address: [address] [place] [id number] Name: Elisa Lamar RN Position: [facility] RN Member Role: Primary Care Nurse Name: Zo Segal RN Position: [facility] RN Member Role: Primary Care Nurse Name: Antonia Mtz RN Position: [facility] RN Member Role: Primary Care Nurse Name: Tiffany Ugalde RN Position: [facility] RN Member Role: Primary Care Nurse Name: Katelynn Moss RN Position: [facility] RN Member Role: Primary Care Nurse Name: Milla Emmanuel RN Position: [facility] Nurse Member Role: Primary Care Nurse Name: Carol Cordova Position: [facility] RN Member Role: Primary Care Nurse Name: Katt Gustafson Position: [facility] RN Member Role: Primary Care Nurse Name: Ashely Pacheco Position: [facility] RN Member Role: Primary Care Nurse Name: Miri Espitia RN Position: [facility] Nurse Member Role: Primary Care Nurse Name: Maksim Hunt III, RN Position: [facility] RN Member Role: Primary Care Nurse Name: Elisa Fields RN Position: [facility] RN Member Role: Primary Care Nurse Name: Aron Mcginnis RN Position: [facility] RN Member Role: Primary Care Nurse Name: Natalia Plata RN Position: [facility] RN Member Role: Primary Care Nurse Name: Kacy Barnhart RN Position: [facility] RN Member Role: Primary Care Nurse Name: Guerline Ramirez RN Position: [facility] RN Member Role: Primary Care Nurse Name: Ashlyn Cordova RN Position: [facility] Onco RN Member Role: Primary Care Nurse Name: Jennifer Ignacio RN Position: [facility] RN Member Role: Primary Care Nurse Care Team Related Persons Name: KORY NGO Address: home [address] [address] Name: TEVIN WILL Address: home [address] [place] [address] Name: ALEX WILL Address: home [address] [place] [address] Name: ALEX ROPER Address: home [address] [place] [address]
--- OUTSIDE RECORDS SUMMARY | 2023-09-06 15:41 | XMS_ITS | Continuity of Care Document ---
Author Organization [facility] [place] Address [address] [place] [address]- Care Team Providers Care Photoflash Powder Mixer Name Role Phone Helena GALLEGOS, Marissa Hernandez Primary Care Physician Encounter [facility] Date(s): 05/26/22 - 06/25/22 [facility] [address] [place], [place] [address] Allergies, Adverse Reactions, Alerts Substance Reaction Severity [...] 06/10/22 14:19:00 EST, Route to Pharmacy Electronically, [facility] #[id number], 165, cm, 05/25/22 14:24:00 EST, Height, 80, kg, 04/14/22 3:03:00 E... Start Date: 06/10/22 Stop Date: 10/08/22 Status: Ordered acamprosate 333 mg oral delayed release tablet 2 tablet = 666 mg, By Mouth, 3 times a day, # 180 tablet, 0 Refills, Maintenance, 04/19/22 12:37:00EST, CR Tablet, [facility], Partial fill upon patient request if the prescription is for a schedule II opioid drug., 165, cm, 04/19/22 11... Start Date: 04/19/22 Stop Date: 05/19/22 Status: Ordered busPIRone 15 mg oral tablet 1 tablet = 15 mg, By Mouth, 3 times a day, # 90 tablet, 3 Refills, Maintenance, 06/10/22 14:24:00 EST, Tablet, [facility] #[id number], Partial fill upon patient request if the prescription is for a schedule II opioid drug., 165, cm, 05/25/22 14:2... Start Date: 06/10/22 Stop Date: 10/08/22 Status: Ordered Creon 36,000 units oral delayed release capsule 1 capsule, By Mouth, 3 times a day, # 90 capsule, 3 Refills, Maintenance, 06/08/22 9:09:00 EST, [facility] #[id number], Partial fill upon patient request if the prescription is for a schedule IIopioid drug., 1 capsule By Mouth 3 times a day, 165... Start Date: 06/08/22 Status: Ordered doxepin 50 mg oral capsule 1 capsule = 50 mg, By Mouth, Daily at bedtime, # 30 capsule, 3 Refills, Maintenance, 06/10/22 14:20:00 EST, Capsule, [facility] #[id number], 165, cm, 05/25/22 14:24:00 EST, Height, 80, kg, 04/14/22 3:03:00 EST, Dry Weight Start Date: 06/10/22 Stop Date: 10/08/22 Status: Ordered fluticasone 50 mcg/inh nasal spray See Instructions, SHAKE LIQUID AND USE 1 SPRAY IN EACH NOSTRIL TWICE DAILY, # 15.8 mL, 3 Refills, 03/23/21 16:18:00 EST, [facility] #[id number], SHAKE LIQUID AND USE 1 SPRAY IN EACH NOSTRIL TWICE DAILY, 164, cm, 03/23/21 15:58:00 EST, Height, 86.... Start Date: 03/23/21 Status: Ordered gabapentin 600 mg oral tablet See Instructions, 1 tablet in the morning and 2 tablets at bedtime, # 90 tablet, 3 Refills, Maintenance, 06/10/22 14:20:00 EST, Tablet, [facility] #[id number], 165, cm, 05/25/22 14:24:00 EST, Height, 80, kg, 04/14/22 3:03:00 EST, Dry Weight Start Date: 06/10/22 Status: Ordered loperamide 2 mg oral capsule 2 mg, 1, capsule, By Mouth, Every 3 hours, PRN, # 30 capsule, Refills 0, Tot. Refills 0, Acute 04/19/23 11:43:00 EST, Loose Stool, 04/19/22 11:43:00 EST, Route to Pharmacy Electronically, [facility], Partial fill upon patient request if... Start Date: 04/19/22 Stop Date: 04/19/23 Status: Ordered LORazepam 1 mg oral tablet 1 tablet = 1 mg, By Mouth, 3 times a day, PRN as needed for anxiety, # 90 tablet, 3 Refills, Maintenance, 06/10/22 14:21:00 EST, Tablet, [facility] #[id number], Partial fill upon patient requestif the prescription is for a schedule II opioid elijah... Start Date: 06/10/22 Stop Date: 10/08/22 Status: Ordered multivitamin Multiple Vitamins oral tablet 1 tablet, By Mouth, Daily, # 30 tablet, 1 Refills, Maintenance, 10/01/19 11:23:00 EDT, Tablet, [facility], 1 tablet By Mouth Daily,x30 days, 165.1, cm, 10/01/19 8:37:00 EDT, Height, 80.1, kg, 09/19/19 16:30:00 EDT, Dry Weight Start Date: 10/01/19 Stop Date: 11/30/19 Status: Ordered Narcan 4 mg/0.1 mL nasal spray = 4 mg, Nares, Both, Once, # 2 each, 0 Refills, Soft Stop, 04/19/22 12:16:00 EST, [facility], Partial fill upon patient [...] Maintenance,06/10/22 14:21:00 EST, Route to Pharmacy Electronically, [facility] #[id number], 165, cm, 05/25/22 14:24:00 EST, Height, 80, kg, 04/14/22 3:03:00... Start Date: 06/10/22 Stop Date: 10/08/22 Status: Ordered traMADol 50 mg oral tablet 1 tablet = 50 mg, By Mouth, Every 8 hours, 30 each, TAKE 1 TABLET BY MOUTH EVERY 8 HOURS NEEDED FOR FOR PAIN, # 30 tablet, 2 Refills, Maintenance, 06/14/22 15:23:00 EST, Tablet, [facility] #[id number], Partial fill upon patient request if the... Start Date: 06/14/22 Status: Ordered traZODone 100 mg oral tablet 100 mg, 1, tablet, By Mouth, Daily at bedtime, TAKE 1 TABLET BY MOUTH EVERY NIGHT AT BEDTIME, # 30 tablet, Refills 3, Tot. Refills 3, Maintenance, 06/10/22 14:22:00 EST, Route to Pharmacy Electronically, [facility] #[id number], Partial fill upon... Start Date: 06/10/22 Stop [...] Team Personnel Name: Marissa Malik NP Position: [facility] PC[facility] Associate Professional Member Role: PCP Address: Address: [address] [place] [id number] Name: Elisa Lamar RN Position: [facility] RN Member Role: Primary Care Nurse Name: Zo Segal RN [facility] RN Member Role: Primary Care Nurse Name: Antonia Mtz RN Position: [facility] RN Member Role: Primary Care Nurse Name: Tiffany Ugalde RN Position: [facility] RN Member Role: Primary Care Nurse Name: Katelynn Moss RN Position: [facility] RN Member Role: Primary Care Nurse Name: Milla Emmanuel RN Position: [facility] AMB Nurse Member Role: Primary Care Nurse Name: Carol Cordova Position: [facility] RN Member Role: Primary Care Nurse Name: Katt Gustafson Position: [facility] RN Member Role: Primary Care Nurse Name: Ashely Pacheco Position: [facility] RN Member Role: Primary Care Nurse Name: Miri Espitia RN Position: [facility] Nurse Member Role: Primary Care Nurse Name: Maksim Hunt III, RN Position: [facility] RN Member Role: Primary Care Nurse Name: Elisa Fields RN Position: [facility] RN Member Role: Primary Care Nurse Name: Aron Mcginnis RN Position: [facility] SN RN Member Role: Primary Care Nurse Name: Natalia Plata RN Position: [facility] RN Member Role: Primary Care Nurse Name: Kacy Barnhart RN Position: [facility] RN Member Role: Primary Care Nurse Name: Guerline Ramirez RN Position: [facility] RN Member Role: Primary Care Nurse Name: Ashlyn Cordova RN Position: [facility] Onco RN Member Role: Primary Care Nurse Name: Jennifer Ignacio RN Position: [facility] RN Member Role: Primary Care Nurse Care Team Related Persons Name: KORY NGO Address: home [address] [address] Name: TEVIN WILL Address: home [address] [place] [address] Name: ALEX WILL Address: home [address] [place] [address] Name: ALEX ROPER Address: home [address] [place] [address]
--- OUTSIDE RECORDS SUMMARY | 2023-09-06 15:41 | XMS_ITS | Continuity of Care Document ---
Author Organization [facility] [place] Address [address] [place] [address]- Care Team Providers Care Chart Reader Name Role Phone Marissa Malik NP Primary Care Physician Encounter [facility] Date(s): 07/26/22 - 08/25/22 [facility] [address] [place], [place] [address] Allergies, Adverse Reactions, [...] 08/16/22 13:06:00 EDT, Route to Pharmacy Electronically, [facility] #[id number], 165, cm, 07/19/22 13:50:00 EDT, Height, 77.5, kg, 07/19/22 13:50:0... Start Date: 08/16/22 Stop Date: 12/14/22 Status: Ordered acamprosate 333 mg oral delayed release tablet 2 tablet = 666 mg, By Mouth, 3 times a day, # 180 tablet, 0 Refills, Maintenance, 04/19/22 12:37:00EST, CR Tablet, [facility], Partial fill upon patient request if the prescription is for a schedule II opioid drug., 165, cm, 04/19/22 11... Start Date: 04/19/22 Stop Date: 05/19/22 Status: Ordered busPIRone 15 mg oral tablet 1 tablet = 15 mg, By Mouth, 3 times a day, # 90 tablet, 3 Refills, Maintenance, 08/16/22 13:06:00 EDT, Tablet, [facility] #[id number], Partial fill upon patient request if the prescription is for a schedule II opioid drug., 165, cm, 07/19/22 13:5... Start Date: 08/16/22 Stop Date: 12/14/22 Status: Ordered Creon 36,000 units oral delayed release capsule 1 capsule, By Mouth, 3 times a day, # 90 capsule, 3 Refills, Maintenance, 06/08/22 9:09:[id number], Partial fill upon patient request if the prescription is for a schedule IIopioid drug., 1 capsule By Mouth 3 times a day, 165... Start Date: 06/08/22 Status: Ordered doxepin 50 mg oral capsule 1 capsule = 50 mg, By Mouth, Daily at bedtime, # 30 capsule, 3 Refills, Maintenance, 08/16/22 13:06:00 EDT, Capsule, [facility] #[id number], 165, cm, 07/19/22 13:50:00 EDT, Height, 77.5, kg, 07/19/22 13:50:00 EDT, Dry Weight Start Date: 08/16/22 Stop Date: 12/14/22 Status: Ordered fluticasone 50 mcg/inh nasal spray See Instructions, SHAKE LIQUID AND USE 1 SPRAY IN EACH NOSTRIL TWICE DAILY, # 15.8 mL, 3 Refills, 03/23/21 [facility]18[id number], SHAKE LIQUID AND USE 1 SPRAY IN EACH NOSTRIL TWICE DAILY, 164, cm, 03/23/21 15:58:00 EST, Height, 86.... Start Date: 03/23/21 Status: Ordered gabapentin 600 mg oral tablet See Instructions, 1 tablet in the morning and 2 tablets at bedtime, # 90 tablet, 3 Refills, Maintenance, 08/16/22 13:07:00 EDT, Tablet, [facility] #[id number], 165, cm, 07/19/22 13:50:00 EDT, Height, 77.5, kg, 07/19/22 13:50:00 EDT, Dry Weight Start Date: 08/16/22 Status: Ordered HYDROmorphone 2 mg oral tablet 1 tablet = 2 mg, By Mouth, Every 6 hours, PRN as needed for pain, # 8 tablet, 0 Refills, Maintenance, 07/19/22 18:31:00 EDT, Tablet, [facility] #[id number], Partial fill upon patient request if the prescription is for a schedule II opioid drug.,... Start Date: 07/19/22 Status: Ordered loperamide 2 mg oral capsule 2 mg, 1, capsule, By Mouth, Every 3 hours, PRN, # 30 capsule, Refills 0, Tot. Refills 0, Acute 04/19/23 11:43:00 EST, Loose Stool, 04/19/22 11:43:00 EST, Route to Pharmacy Electronically, [facility], Partial fill upon patient request if... Start Date: 04/19/22 Stop Date: 04/19/23 Status: Ordered LORazepam 1 mg oral tablet 1 tablet = 1 mg, By Mouth, 3 times a day, PRN as needed for anxiety, # 90 tablet, 3 Refills, Maintenance, 08/16/22 13:07:00 EDT, Tablet, [facility] #[id number], Partial fill upon patient requestif the prescription is for a schedule II opioid elijah... Start Date: 08/16/22 Stop Date: 12/14/22 Status: Ordered multivitamin Multiple Vitamins oral tablet 1 tablet, By Mouth, Daily, # 30 tablet, 1 Refills, Maintenance, 10/01/19 11:23:00 EDT, Tablet, [facility]-, 1 tablet By Mouth Daily,x30 days, 165.1, cm, 10/01/19 8:37:00 EDT, Height, 80.1, kg, 09/19/19 16:30:00 EDT, Dry Weight Start Date: 10/01/19 Stop Date: 11/30/19 Status: Ordered Narcan 4 mg/0.1 mL nasal spray = 4 mg, Nares, Both, Once, # 2 each, 0 Refills, Soft Stop, 04/19/22 12:16:00 EST, [facility], Partial fill upon patient request [...] Maintenance,08/16/22 13:07:00 EDT, Route to Pharmacy Electronically, [facility] #[id number], 165, cm, 07/19/22 13:50:00 EDT, Height, 77.5, kg, 07/19/22 13:50:... Start Date: 08/16/22 Stop Date: 12/14/22 Status: Ordered traMADol 50 mg oral tablet 1 tablet = 50 mg, By Mouth, Every 8 hours, 30 each, TAKE 1 TABLET BY MOUTH EVERY 8 HOURS NEEDED FOR FOR PAIN, # 30 tablet, 1 Refills, Maintenance, 08/16/22 15:31:00 EDT, Tablet, [facility] #[id number], Partial fill upon patient request if the... Start Date: 08/16/22 Status: Ordered traZODone 100 mg oral tablet 100 mg, 1, tablet, By Mouth, Daily at bedtime, TAKE 1 TABLET BY MOUTH EVERY NIGHT AT BEDTIME, # 30 tablet, Refills 3, Tot. Refills 3, Maintenance, 08/16/22 13:07:00 EDT, [id number], Partial fill upon... Start Date: 08/16/22 Stop [...] Team Personnel Name: Marissa Malik NP Position: [facility]O Associate Professional Member Role: PCP Address: Address: [address] [place] [address] Primary [place], [place] [address] Name: Elisa Lamar RN Position: [facility] RN Member Role: Primary Care Nurse Name: Zo Segal RN Position: [facility] RN Member Role: Primary Care Nurse Name: Antonia Mtz RN Position: [facility] RN Member Role: Primary Care Nurse Name: Tiffany Ugalde RN Position: [facility] RN Member Role: Primary Care Nurse Name: Katelynn Moss RN Position: S RN Member Role: Primary Care Nurse Name: Milla Emmanuel RN Position: [facility] SN RN Member Role: Primary Care Nurse Name: Carol Cordova Position: [facility] RN Member Role: Primary Care Nurse Name: Katt Gustafson Position: [facility] RN Member Role: Primary Care Nurse Name: Ashely Pacheco Position: [facility] RN Member Role: Primary Care Nurse Name: Miri Espitia RN Position: [facility] AMB Nurse Member Role: Primary Care Nurse Name: Maksim Hunt III, RN Position: [facility] RN Member Role: Primary Care Nurse Name: Elisa Fields RN Position: [facility] RN Member Role: Primary Care Nurse Name: Aron Mcginnis RN Position: [facility] SN RN Member Role: Primary Care Nurse Name: Natalia Plata RN Position: [facility] RN Member Role: Primary Care Nurse Name: Kacy Barnhart RN Position: [facility] RN Member Role: Primary Care Nurse Name: Guerline Ramirez RN Position: [facility] RN Member Role: Primary Care Nurse Name: Ashlyn Cordova RN Position: [facility] Onco RN Member Role: Primary Care Nurse Name: Jennifer Ignacio RN Position: [facility] RN Member Role: Primary Care Nurse Care Team Related Persons Name: KORY NGO Address: home [address] [address] Name: TEVIN WILL Address: home [address] [place] [address] Name: ALEX WILL Address: [address] [place] [address] Name: ALEX ROPER Address: home [address] [place] [address]
--- OUTSIDE RECORDS SUMMARY | 2023-09-06 15:41 | XMS_ITS | Continuity of Care Document ---
Author Organization [facility] [place] Address [address] [place] [address]- Care Team Providers Care Language Pathologist Name Role Phone Marissa Malik NP Primary Care Physician [phone] Encounter [facility] Date(s): 07/27/22 - 08/26/22 [facility] [address], [place] [id number] Allergies, Adverse Reactions, Alerts [...] 08/16/22 13:06:00 EDT, Route to Pharmacy Electronically, [facility] #[id number], 165, cm, 07/19/22 13:50:00 EDT, Height, 77.5, kg, 07/19/22 13:50:0... Start Date: 08/16/22 Stop Date: 12/14/22 Status: Ordered acamprosate 333 mg oral delayed release tablet 2 tablet = 666 mg, By Mouth, 3 times a day, # 180 tablet, 0 Refills, Maintenance, 04/19/22 12:37:00EST, CR Tablet, [facility], Partial fill upon patient request if the prescription is for a schedule II opioid drug., 165, cm, 04/19/22 11... Start Date: 04/19/22 Stop Date: 05/19/22 Status: Ordered busPIRone 15 mg oral tablet 1 tablet = 15 mg, By Mouth, 3 times a day, # 90 tablet, 3 Refills, Maintenance, 08/16/22 13:06:00 EDT, Tablet, [facility] #[id number], Partial fill upon patient request if the prescription is for a schedule II opioid drug., 165, cm, 07/19/22 13:5... Start Date: 08/16/22 Stop Date: 12/14/22 Status: Ordered Creon 36,000 units oral delayed release capsule 1 capsule, By Mouth, 3 times a day, # 90 capsule, 3 Refills, Maintenance, 06/08/22 9:09:00 [id number], Partial fill upon patient request if the prescription is for a schedule IIopioid drug., 1 capsule By Mouth 3 times a day, 165... Start Date: 06/08/22 Status: Ordered doxepin 50 mg oral capsule 1 capsule = 50 mg, By Mouth, Daily at bedtime, # 30 capsule, 3 Refills, Maintenance, 08/16/22 13:06:00 EDT, Capsule, [facility] #[id number], 165, cm, 07/19/22 13:50:00 EDT, Height, 77.5, kg, 07/19/22 13:50:00 EDT, Dry Weight Start Date: 08/16/22 Stop Date: 12/14/22 Status: Ordered fluticasone 50 mcg/inh nasal spray See Instructions, SHAKE LIQUID AND USE 1 SPRAY IN EACH NOSTRIL TWICE DAILY, # 15.8 mL, 3 Refills, 03/23/21 [id number], SHAKE LIQUID AND USE 1 SPRAY IN EACH NOSTRIL TWICE DAILY, 164, cm, 03/23/21 15:58:00 EST, Height, 86.... Start Date: 03/23/21 Status: Ordered gabapentin 600 mg oral tablet See Instructions, 1 tablet in the morning and 2 tablets at bedtime, # 90 tablet, 3 Refills, Maintenance, 08/16/22 13:07:00 EDT, Tablet, [facility] #[id number], 165, cm, 07/19/22 13:50:00 EDT, Height, 77.5, kg, 07/19/22 13:50:00 EDT, Dry Weight Start Date: 08/16/22 Status: Ordered HYDROmorphone 2 mg oral tablet 1 tablet = 2 mg, By Mouth, Every 6 hours, PRN as needed for pain, # 8 tablet, 0 Refills, Maintenance, 07/19/22 18:31:00 EDT, Tablet, [facility] #[id number], Partial fill upon patient request if the prescription is for a schedule II opioid drug.,... Start Date: 07/19/22 Status: Ordered loperamide 2 mg oral capsule 2 mg, 1, capsule, By Mouth, Every 3 hours, PRN, # 30 capsule, Refills 0, Tot. Refills 0, Acute 04/19/23 11:43:00 EST, Loose Stool, 04/19/22 11:43:00 EST, Route to Pharmacy Electronically, [facility], Partial fill upon patient request if... Start Date: 04/19/22 Stop Date: 04/19/23 Status: Ordered LORazepam 1 mg oral tablet 1 tablet = 1 mg, By Mouth, 3 times a day, PRN as needed for anxiety, # 90 tablet, 3 Refills, Maintenance, 08/16/22 13:07:00 EDT, Tablet, [facility] #[id number], Partial fill upon patient requestif the prescription is for a schedule II opioid elijah... Start Date: 08/16/22 Stop Date: 12/14/22 Status: Ordered multivitamin Multiple Vitamins oral tablet 1 tablet, By Mouth, Daily, # 30 tablet, 1 Refills, Maintenance, 10/01/19 11:23:00 EDT, Tablet, [facility]-, 1 tablet By Mouth Daily,x30 days, 165.1, cm, 10/01/19 8:37:00 EDT, Height, 80.1, kg, 09/19/19 16:30:00 EDT, Dry Weight Start Date: 10/01/19 Stop Date: 11/30/19 Status: Ordered Narcan 4 mg/0.1 mL nasal spray = 4 mg, Nares, Both, Once, # 2 each, 0 Refills, Soft Stop, 04/19/22 12:16:00 EST, [facility], Partial fill upon patient request if [...] Maintenance,08/16/22 13:07:00 EDT, Route to Pharmacy Electronically, [facility] #[id number], 165, cm, 07/19/22 13:50:00 EDT, Height, 77.5, kg, 07/19/22 13:50:... Start Date: 08/16/22 Stop Date: 12/14/22 Status: Ordered traMADol 50 mg oral tablet 1 tablet = 50 mg, By Mouth, Every 8 hours, 30 each, TAKE 1 TABLET BY MOUTH EVERY 8 HOURS NEEDED FOR FOR PAIN, # 30 tablet, 1 Refills, Maintenance, 08/16/22 15:31:00 EDT, Tablet, [facility] #[id number], Partial fill upon patient request if the... Start Date: 08/16/22 Status: Ordered traZODone 100 mg oral tablet 100 mg, 1, tablet, By Mouth, Daily at bedtime, TAKE 1 TABLET BY MOUTH EVERY NIGHT AT BEDTIME, # 30 tablet, Refills 3, Tot. Refills 3, Maintenance, 08/16/22 13:07:00 EDT, [id number], Partial fill upon... Start Date: 08/16/22 Stop [...] Team Personnel Name: Marissa Malik NP Position: [facility] Associate Professional Member Role: PCP Address: Address: [address] [place] [address] Primary Care [place], [place] [address] Name: Elisa Lamar RN Position: [facility] RN Member Role: Primary Care Nurse Name: Zo Segal RN Position: [facility] RN Member Role: Primary Care Nurse Name: Antonia Mtz RN Position: [facility] RN Member Role: Primary Care Nurse Name: Tiffany Ugalde RN Position: [facility] RN Member Role: Primary Care Nurse Name: Katelynn Moss RN Position: S RN Member Role: Primary Care Nurse Name: Milla Emmanuel RN Position: [facility] SN RN Member Role: Primary Care Nurse Name: Carol Cordova Position: [facility] RN Member Role: Primary Care Nurse Name: Katt Gustafson Position: [facility] RN Member Role: Primary Care Nurse Name: Ashely Pacheco Position: [facility] RN Member Role: Primary Care Nurse Name: Miri Espitia RN Position: [facility] AMB Nurse Member Role: Primary Care Nurse Name: Maksim Hunt III, RN Position: [facility] RN Member Role: Primary Care Nurse Name: Elisa Fields RN Position: [facility] RN Member Role: Primary Care Nurse Name: Aron Mcginnis RN Position: [facility] SN RN Member Role: Primary Care Nurse Name: Natalia Plata RN Position: [facility] RN Member Role: Primary Care Nurse Name: Kacy Barnhart RN Position: [facility] RN Member Role: Primary Care Nurse Name: Guerline Ramirez RN Position: [facility] RN Member Role: Primary Care Nurse Name: Ashlyn Cordova RN Position: [facility] Onco RN Member Role: Primary Care Nurse Name: Jennifer Ignacio RN Position: [facility] RN Member Role: Primary Care Nurse Care Team Related Persons Name: KORY NGO Address: home [address] [address] Name: TEVIN WILL Address: home [address] [place] [address] Name: ALEX WILL Address: [address] [place] [address] Name: ALEX ROPER Address: [address] [place] [address]
[2023-09-06 15:42] LABS: Lactic Acid 1.9 mmol/L (0.5-2.0)
--- OUTSIDE RECORDS SUMMARY | 2023-09-06 15:42 | XMS_ITS | Continuity of Care Document ---
Author Organization [facility] Address [address] [place] [id number]- Care Team Providers Care Station [employer] Specialist Name Role Phone Marissa Malik NP Primary Care Physician Encounter [facility] [place] Date(s): 12/12/22 - 12/12/[address] [address]- Encounter Diagnosis Benzodiazepine dependence(Final) - 12/12/22 Mouth ulcer(Final) - 12/12/22 Discharge Disposition: A-D/C Home Attending Physician: Carmina Hanley MD Admitting Physician: Carmina Hanley MD Referring Physician: Not on Staff, Referring [...] 11/15/22 14:23:00 EDT, Route to Pharmacy Electronically, [facility] #[id number], 165, cm, 11/10/22 10:56:00 EDT, Height, 79, kg, 11/10/22 10:56:00... Start Date: 11/15/22 Stop Date: 03/15/23 Status: Ordered acamprosate 333 mg oral delayed release tablet 2 tablet = 666 mg, By Mouth, 3 times a day, # 180 tablet, 0 Refills, Maintenance, 04/19/22 12:37:00EST, CR Tablet, [facility], Partial fill upon patient request if the prescription is for a schedule II opioid drug., 165, cm, 04/19/22 11... Start Date: 04/19/22 Stop Date: 05/19/22 Status: Ordered busPIRone 15 mg oral tablet 1 tablet = 15 mg, By Mouth, 3 times a day, # 90 tablet, 3 Refills, Maintenance, 11/15/22 14:23:00 EDT, Tablet, [facility] #[id number], Partial fill upon patient request if the prescription is for a schedule II opioid drug., 165, cm, 11/10/22 10:5... Start Date: 11/15/22 Stop Date: 03/15/23 Status: Ordered Creon 36,000 units oral delayed release capsule 1 capsule, By Mouth, 3 times a day, # 90 capsule, 3 Refills, Maintenance, 06/08/22 9:09:00 EST, [facility] #[id number], Partial fill upon patient request if the prescription is for a schedule IIopioid drug., 1 capsule By Mouth 3 times a day, 165... Start Date: 06/08/22 Status: Ordered doxepin 50 mg oral capsule 1 capsule = 50 mg, By Mouth, Daily at bedtime, # 30 capsule, 3 Refills, Maintenance, 11/15/22 14:23:00 EDT, Capsule, [facility] #[id number], 165, cm, 11/10/22 10:56:00 EDT, Height, 79, kg, 11/10/22 10:56:00 EDT, Dry Weight Start Date: 11/15/22 Stop Date: 03/15/23 Status: Ordered gabapentin 600 mg oral tablet See Instructions, 1 tablet in the morning and 2 tablets at bedtime, # 90 tablet, 3 Refills, Maintenance, 11/15/22 14:24:00 EDT, Tablet, [facility] #[id number], 165, cm, 11/10/22 10:56:00 EDT, Height, 79, kg, 11/10/22 10:56:00 EDT, Dry Weight Start Date: 11/15/22 Status: Ordered Lidocaine Viscous 2% solution 5 mL = 0.1 Gm, Topically, 3 times a day before meals and bedtime, PRN for mouth sore pain, # 20 mL,0 Refills, Acute 12/19/22 16:11:00 EDT, 12/12/22 16:11:00 EDT, Solution, [facility] #[id number], Partial fill upon patient request if the prescrip... Start Date: 12/12/22 Stop Date: 12/19/22 Status: Ordered LORazepam 1 mg oral tablet 1 tablet = 1 mg, By Mouth, 3 times a day, PRN as needed for anxiety, # 90 tablet, 3 Refills, Maintenance, 11/15/22 14:24:00 EDT, Tablet, [facility] #[id number], Partial fill upon patient requestif the prescription is for a schedule II opioid elijah... Start Date: 11/15/22 Stop Date: 03/15/23 Status: Ordered multivitamin Multiple Vitamins oral tablet 1 tablet, By Mouth, Daily, # 30 tablet, 1 Refills, Maintenance, 10/01/19 11:23:00 EDT, Tablet, [facility], 1 tablet By Mouth Daily,x30 days, [...] Maintenance,11/15/22 14:24:00 EDT, Route to Pharmacy Electronically, [facility] #[id number], 165, cm, 11/10/22 10:56:00 EDT, Height, 79, kg, 11/10/22 10:56:00... Start Date: 11/15/22 Stop Date: 02/13/23 Status: Ordered traZODone 100 mg oral tablet 100 mg, 1, tablet, By Mouth, Daily at bedtime, TAKE 1 TABLET BY MOUTH EVERY NIGHT AT BEDTIME, # 30 tablet, Refills 3, Tot. Refills 3, Maintenance, 11/15/22 14:24:00 EDT, Route to Pharmacy Electronically, [facility] #[id number], Partial fill upon... Start Date: 11/15/22 Stop Date: 03/15/23 Status: Ordered valACYclovir 500 mg oral tablet 500 mg, 1, tablet, By Mouth, 2 times a day, # 6 tablet, Refills 1, Tot. Refills 1, Maintenance, 11/10/22 11:16:00 EDT, Route to Pharmacy Electronically, [facility] #[id number], Partial fill uponpatient request if the prescription [...] Exam Date Time Procedure Performing Provider Status 12/12/22 2:28 PM US RUQ Miguelina Mora; Auth (Ve rified) Notes: (US RUQ) Reason For Exam: Abdominal Pain;Other: RESULT: US RUQ US RUQ Hx of Present Illness: pt was dc this am pt states her friend gave her a pain pill which had fentanyl in it and she was not aware woke up to Narcan. pt wants to be seen again for a canker sore in [facility] states she has an infection in her mouth; Reason: Other:; Abdominal Pain; Clinical Question(s): Cholecystitis COMPARISON: 07/19/2022, MRI abdomen 05/23/2022 FINDINGS: Liver: Diffusely echogenic parenchyma. No focal lesion. Main portal vein patent with normal hepatopetal direction of flow. Gallbladder: No gallstones. Normal wall thickness. No pericholecystic fluid. Negative Bonds sign. Biliary Tree: No intrahepatic bile duct dilation is identified. Common duct measures: 0.9 cm, increased from 0.3 cm. Pancreas: No abnormality in the visualized portions of the pancreas. Right kidney: Normal parenchymal echotexture and thickness. No hydronephrosis, stone or mass. IMPRESSION: 1. No cholelithiasis or acute cholecystitis. 2. Mildly dilated extrahepatic bile duct measuring 0.9 cm, increased from 07/2022. Correlation with liver function tests recommended. 3. Echogenic liver likely representing hepatic steatosis. WSN: [id number] Ordering Physician: Mary Lou Murillo Dictated By: Darci Zarco MD Dictated Date/Time: 12/12/22 2:51 pm Reviewed By: Darci Zarco MD Signed By: Darci Zarco MD Signed Date/Time: 12/12/22 2:51 pm Transcribed By: DIPESH Transcribed Date/Time: 12/12/22 2:47 pm Vital Signs Most recent to oldest [Reference Range]: 1 2 3 Height 166 cm (12/12/22 4:21 PM) 166 cm (12/12/22 2:44 PM) 166 cm (12/12/22 12:14 PM) Weight 77 kg (12/12/22 4:21 PM) 77 kg (12/12/22 2:44 PM) 77 kg (12/12/22 12:14 PM) Oxygen Saturation [94-100 %] 99 % (12/12/22 4:21 PM) 95 % (12/12/22 2:44 PM) 96 % (12/12/22 12:14 PM) Pulse Rate [55-90 bpm] 65 bpm (12/12/22 4:21 PM) 55 bpm (12/12/22 2:44 PM) 63 bpm (12/12/22 12:14 PM) Body Mass Index [18.5-24.99 kg/m2] 27.94 kg/m2 *H* (12/12/22 4:21 PM) 27.94 kg/m2 *H* (12/12/22 2:44 PM) 27.94 kg/m2 *H* (12/12/22 12:14 PM) Blood Pressure [90-138/55-84 mm Hg] 116/87mm Hg (12/12/22 4:21 PM) 115/64mm Hg (12/12/22 2:44 PM) 114/65mm Hg (12/12/22 12:14 PM) Respiratory Rate [16-30 br/min] 18 br/min (12/12/22 4:21 PM) 18 br/min (12/12/22 2:44 PM) 18 br/min (12/12/22 12:14 PM) Temperature [96.8-100.4 DegF] 98 DegF (12/12/22 2:44 PM) 97.7 DegF (12/12/22 12:14 PM) 98.5 DegF (12/12/22 9:22 AM) Mode of Delivery (Oxygen) Room air (12/12/22 4:21 PM) Room air (12/12/22 2:44 PM) Room air (12/12/22 12:14 PM) Blood pressure sites Arm, left (12/12/22 4:21 PM) Arm, right (12/12/22 2:44 PM) Arm, right (12/12/22 12:14 PM) Temperature Route Oral (12/12/22 2:44 PM) Oral (12/12/22 12:14 PM) Oral (12/12/22 9:22 AM) Dry Weight 77 kg (12/12/22 4:21 PM) 77 kg (12/12/22 2:44 PM) 77 kg (12/12/22 12:14 PM) Weight Obtained Via Patient/family state d (12/12/22 9:22 AM) Dry Weight Obtained Via Patient/family s tated (12/12/22 9:22 AM) Social History Social History Type Response Smoking Status Current every day sm oker; Tobacco user in household: Yes entered on: 05/01/14 Sex Note * Mary Lou Boyd: PERFORM Event Display: Patient Education Leaflets Authored Date: [id number] Multiple Documents ?? [id number] Unknown Causes of Abdominal Pain (Adult) The exact cause of your belly (abdominal) pain is not clear. Your exam and tests don't suggest a dangerous cause at this time. This does not mean that this is something to worry about. Everyone likesto know the exact cause of the problem. But sometimes with belly pain, there is no clear-cut cause,and this could be a good thing. Your symptoms can be treated, and you should feel better.?? Your condition does not seem serious now. But sometimes the signs of a serious problem may take more time to appear. For this reason,??it's important for you to watch for any new symptoms, problems,??or worsening of your condition. Over the next few days, the abdominal pain may come and go. Or it may be constant. Other common symptoms can include nausea and vomiting. Sometimes it can be difficult to tell if you feel nauseous. You may just feel bad and not connect that feeling to nausea. Constipation, diarrhea, and a fever maygo along with the pain. The pain may continue even if treated correctly over the following days. Depending on how things go, sometimes the cause can become clear and you may need more??or different treatment. You may also need other evaluations, medicines, or tests. Home care Your healthcare provider may prescribe medicine for pain, symptoms, or an infection. ??Follow the healthcare provider's instructions for taking these medicines. General care ??? Rest as much as you can until your next exam. No strenuous activities. ??? Try to not do anything that may have caused your symptoms. This might be not taking any medicines unless otherwise directed by your healthcare provider. It might be not eating certain foods or doing certain activities. ??? Find positions that ease discomfort. A small pillow placed on your belly may help relieve pain. ??? Something warm on your belly such as a heating pad may help, but be careful not to burn yourself. Diet ??? Don???t??force yourself to eat, especially if having cramps, vomiting, or diarrhea. ??? Water is important so you don't get dehydrated. Soup may also be good. Sports drinks may also help, especially if they are not too acidic. Don't drink sugary drinks as this can make things worse. Take liquids in small amounts. Don???t??guzzle them. ??? Caffeine sometimes makes the pain and cramping worse. ??? Don???t take??dairy products if you have vomiting or diarrhea. ??? Don't eat large amounts at a time. Eat several small meals during the day instead of 2 or 3 larger meals. Wait a few minutesbetween bites. ??? Eat a diet low in fiber (called a low-residue diet). Foods allowed include refined breads, white rice, fruit and vegetable juices without pulp, tender meats. These foods will pass more easily through the intestine. ??? Don???t have??whole-grain foods, whole fruits and vegetables,meats, seeds and nuts, fried or fatty foods, dairy, alcohol and spicy foods until your symptoms go away. ?? Follow-up care Follow up with your healthcare provider, or as advised, if your pain does not begin to improve in the next 24 hours. ?? Call 911 Call?? 911 if any of these occur: ??? Trouble breathing ??? Confusion ??? Fainting or loss of consciousness ??? Rapid heart rate ??? Seizure ?? When to seek medical advice Call your healthcare provider right away if any of these occur: ??? Pain gets worse or moves to theright lower abdomen ??? New or worsening vomiting or diarrhea ??? Swelling of the abdomen ??? Unable to pass stool for more than??3 days ??? Fever of 100.4??F (38??C) or higher, or as directed by your healthcare provider ??? Blood in vomit or bowel movements (dark red or black color) ??? Yellow color of eyes and skin (jaundice) ??? Weakness, dizziness ??? Chest, arm, back, neck, or jaw pain ??? Can't keep down medicines, liquids, or water because of too much vomiting ??? If you have a vagina: unexpected vaginal bleeding or missed period ?? Last Reviewed Date: 2021 ?? [employer]. All rights reserved. This information is not intended as a substitute for professional medical care. Always follow your healthcare professional's instructions. ?? * Chidi MARIEE, Mary Lou Hernandez: PERFORM Event Display: Patient Education Leaflets Authored Date: [id number] Multiple Documents ?? [id number] Canker Sore A canker sore is a painful sore on the lining of the mouth. It???s also called an aphthous ulcer.??It is most painful during the first few days, and it lasts about 7 to 14 days before going away. Causes Canker sores are not cold sores or fever blisters. They are not contagious, so they are not spread by contact. The exact cause of canker sores is not clear, but there are various things that can trigger them in different people. ??? Mild injury, such as biting the inside of the mouth, lip, or cheek, or dental procedures ??? Stress ??? Viral infections ??? Hormonal changes ??? Poor diet, or lack of certain nutrients, including B vitamins and iron ??? Foods that can irritate the mouth, including tomatoes, citrus fruits, and some nuts (foods that are acidic or contain bitter substances called tannins) ??? Irritating chemicals, such as those in some toothpastes and mouthwashes ??? Some chronic i llnesses ?? Symptoms Canker sores occur on the lining of the mouth. They can be inside the cheeks or lips, on the roof of the mouth, at the base of the gums, on the tongue, or in the back of the throat. Canker sores: ??? Are small and flat (not raised) ??? Can be white or yellowish bumps that are red around the edges or have a red halo ??? Are usually small in size, roundish, and in groups ??? Cause pain or burning Canker sores don't leave a scar. But they usually come back. ?? Home care The goals of canker sore treatment are to decrease the pain, speed healing, and prevent sores from coming back. No single treatment works for everyone. Try different methods to see what works best. General care ??? You may find that soft, [id number] foods cause less pain. ??? Drink with a straw to direct liquids away from the sore. ??? Use a soft-bristle toothbrush, and brush your teeth gently. ??? Don't eat acidic, salty, or spicy foods. These may irritate the canker sores. ??? Don't eat rough or crunchy foods, such as crusty bread or potato chips. These kinds of foods can hurt the inside of your mouth or scrape your canker sores. Medicines You can try [id number] medicines that cover the sores and numb them. This protects the sores while they heal and helps reduce pain. Homemade rinses and solutions You can use these solutions as mouth rinses. Spit them out after using them. You can also dab them on the sores. You can repeat these treatments as often as needed: ??? Rinse your mouth with 1/2 teaspoon of salt in 1 glass of warm water. ??? Mix equal amounts of hydrogen peroxide and water. You canuse this as a mouthwash or dab it on sores with a cotton swab. You can also add sodium bicarbonate to this to make a paste, and then dab it on sores. ?? Follow-up care Follow up with your healthcare provider, or as advised. If a culture was done, you can call as directed for the results. You will be told if your treatment needs to be changed. ?? Call 911 Call 911 if any of the following occur: ??? Trouble breathing ??? Inability to swallow ??? Extreme drowsiness or trouble waking up ??? Fainting or loss of consciousness ??? Fast heart rate ??? Seizure ??? Stiff neck ?? When to seek medical advice Call your healthcare provider right away if any of the following occur: ??? You have a fever of 100.4??F (38??C) or higher, or as directed by your healthcare provider ??? You are ??? You just had surgery or another medical procedure, or you were just discharged from the hospital ??? It's too painful to eat or swallow ??? The sore does not go away within 2 weeks ?? Last Reviewed Date: 2022 ?? 4519-3348 [employer]. All rights reserved. This information is not intended as a substitute for professional medical care. Always follow your healthcare professional's instructions. ?? Patient Care team information Care Team Personnel Name: Marissa Malik NP Position: [facility] PCO Associate Professional Member Role: PCP Address: Address: [address] [place] [id number] [place] Name: Elisa Lamar RN Position: [facility] RN Member Role: Primary Care Nurse Name: Zo Segal RN Position: [facility] AMB Nurse Member Role: Primary Care Nurse Name: Antonia Mtz RN Position: [facility] RN Member Role: Primary Care Nurse Name: Milla Emmanuel RN Position: [facility] SN RN Member Role: Primary Care Nurse Name: Carol Min MA Position: [facility] RN Member Role: Primary Care Nurse Name: Katt Gustafson Position: [facility] RN Member Role: Primary Care Nurse Name: Ashely Pacheco Position: [facility] RN Member Role: Primary Care Nurse Name: Miri Espitia RN Position: [facility] AMB Nurse Member Role: Primary Care Nurse Name: Maksim Hunt III, RN Position: [facility] RN Member Role: Primary Care Nurse Name: Elisa Fields RN Position: [facility] RN Member Role: Primary Care Nurse Name: Aron Mcginnis RN Position: [facility] SN RN Member Role: Primary Care Nurse Name: Natalia Plata RN Position: [facility] RN Member Role: Primary Care Nurse Name: Kacy Barnhart RN Position: [facility] RN Member Role: Primary Care Nurse Name: Guerline Ramirez RN Position: [facility] RN Member Role: Primary Care Nurse Name: Ashlyn Cordova RN Position: [facility] Onco RN Member Role: Primary Care Nurse Name: Jennifer Ignacio RN Position: [facility] RN Member Role: Primary Care Nurse Name: *[facility], ED Attending Position: [facility] ED Attendings Patient Name: Carmina Hanley MD Position: [facility] ED Medicine MD Member Role: Admitting Physician Address: Address: [address] [place] [address] Emergency Medicine [place], [place] [address] [place] Name: Tiffany Henderson Position: [facility] ED [facility] Care Team Related Persons Name: KORY NGO Address: home [address] [address] Name: TEVIN WILL Address: home [address] [place] [address] Name: ALEX WILL Address: home [address] [place] [address] Name: ALEX ROPER Address: home [address] [place] [address]
--- OUTSIDE RECORDS SUMMARY | 2023-09-06 15:42 | XMS_ITS | Continuity of Care Document ---
Author Organization [facility] Address [address] [place] [address]- Care Team Providers Care Air Conditioning Specialist Name Role Phone Helena GALLEGOS, Marissa Hernandez Primary Care Physician Encounter [facility] Date(s): 05/13/22 - 06/12/22 [facility] [address], [place] [address] Allergies, Adverse Reactions, Alerts Substance Reaction [...] 06/10/22 14:19:00 EST, Route to Pharmacy Electronically, [facility] #[id number], 165, cm, 05/25/22 14:24:00 EST, Height, 80, kg, 04/14/22 3:03:00 E... Start Date: 06/10/22 Stop Date: 10/08/22 Status: Ordered acamprosate 333 mg oral delayed release tablet 2 tablet = 666 mg, By Mouth, 3 times a day, # 180 tablet, 0 Refills, Maintenance, 04/19/22 12:37:00EST, CR Tablet, [facility], Partial fill upon patient request if the prescription is for a schedule II opioid drug., 165, cm, 04/19/22 11... Start Date: 04/19/22 Stop Date: 05/19/22 Status: Ordered busPIRone 15 mg oral tablet 1 tablet = 15 mg, By Mouth, 3 times a day, # 90 tablet, 3 Refills, Maintenance, 06/10/22 14:24:00 EST, Tablet, [facility] #[id number], Partial fill upon patient request if the prescription is for a schedule II opioid drug., 165, cm, 05/25/22 14:2... Start Date: 06/10/22 Stop Date: 10/08/22 Status: Ordered Creon 36,000 units oral delayed release capsule 1 capsule, By Mouth, 3 times a day, # 90 capsule, 3 Refills, Maintenance, 06/08/22 9:09:00 EST, [facility] #[id number], Partial fill upon patient request if the prescription is for a schedule IIopioid drug., 1 capsule By Mouth 3 times a day, 165... Start Date: 06/08/22 Status: Ordered doxepin 50 mg oral capsule 1 capsule = 50 mg, By Mouth, Daily at bedtime, # 30 capsule, 3 Refills, Maintenance, 06/10/22 14:20:00 EST, Capsule, [facility] #[id number], 165, cm, 05/25/22 14:24:00 EST, Height, 80, kg, 04/14/22 3:03:00 EST, Dry Weight Start Date: 06/10/22 Stop Date: 10/08/22 Status: Ordered fluticasone 50 mcg/inh nasal spray See Instructions, SHAKE LIQUID AND USE 1 SPRAY IN EACH NOSTRIL TWICE DAILY, # 15.8 mL, 3 Refills, 03/23/21 16:18:00 EST, [facility] #[id number], SHAKE LIQUID AND USE 1 SPRAY IN EACH NOSTRIL TWICE DAILY, 164, cm, 03/23/21 15:58:00 EST, Height, 86.... Start Date: 03/23/21 Status: Ordered gabapentin 600 mg oral tablet See Instructions, 1 tablet in the morning and 2 tablets at bedtime, # 90 tablet, 3 Refills, Maintenance, 06/10/22 14:20:00 EST, Tablet, [facility] #[id number], 165, cm, 05/25/22 14:24:00 EST, Height, 80, kg, 04/14/22 3:03:00 EST, Dry Weight Start Date: 06/10/22 Status: Ordered loperamide 2 mg oral capsule 2 mg, 1, capsule, By Mouth, Every 3 hours, PRN, # 30 capsule, Refills 0, Tot. Refills 0, Acute 04/19/23 11:43:00 EST, Loose Stool, 04/19/22 11:43:00 EST, Route to Pharmacy Electronically, [facility], Partial fill upon patient request if... Start Date: 04/19/22 Stop Date: 04/19/23 Status: Ordered LORazepam 1 mg oral tablet 1 tablet = 1 mg, By Mouth, 3 times a day, PRN as needed for anxiety, # 90 tablet, 3 Refills, Maintenance, 06/10/22 14:21:00 EST, Tablet, [facility] #[id number], Partial fill upon patient requestif the prescription is for a schedule II opioid elijah... Start Date: 06/10/22 Stop Date: 10/08/22 Status: Ordered multivitamin Multiple Vitamins oral tablet 1 tablet, By Mouth, Daily, # 30 tablet, 1 Refills, Maintenance, 10/01/19 11:23:00 EDT, Tablet, [facility], 1 tablet By Mouth Daily,x30 days, 165.1, cm, 10/01/19 8:37:00 EDT, Height, 80.1, kg, 09/19/19 16:30:00 EDT, Dry Weight Start Date: 10/01/19 Stop Date: 11/30/19 Status: Ordered Narcan 4 mg/0.1 mL nasal spray = 4 mg, Nares, Both, Once, # 2 each, 0 Refills, Soft Stop, 04/19/22 12:16:00 EST, [facility], Partial fill upon patient [...] Maintenance,06/10/22 14:21:00 EST, Route to Pharmacy Electronically, [facility] #[id number], 165, cm, 05/25/22 14:24:00 EST, Height, 80, kg, 04/14/22 3:03:00... Start Date: 06/10/22 Stop Date: 10/08/22 Status: Ordered traMADol 50 mg oral tablet 1 tablet = 50 mg, By Mouth, Every 8 hours, 30 each, TAKE 1 TABLET BY MOUTH EVERY 8 HOURS NEEDED FOR FOR PAIN, # 30 tablet, 2 Refills, Maintenance, 05/26/22 8:00:00 EST, Tablet, [facility] #[id number], Partial fill upon patient request if the p... Start Date: 05/26/22 Status: Ordered traZODone 100 mg oral tablet 100 mg, 1, tablet, By Mouth, Daily at bedtime, TAKE 1 TABLET BY MOUTH EVERY NIGHT AT BEDTIME, # 30 tablet, Refills 3, Tot. Refills 3, Maintenance, 06/10/22 14:22:00 EST, Route to Pharmacy Electronically, [facility] #[id number], Partial fill upon... Start Date: 06/10/22 Stop [...] Team Personnel Name: Marissa Malik NP Position: [facility] PCO Associate Professional Member Role: PCP Address: Address: [address] [place] [id number] Name: Elisa Lamar RN Position: [facility] RN Member Role: Primary Care Nurse Name: Zo Segal RN [facility] RN Member Role: Primary Care Nurse Name: Antonia Mtz RN Position: [facility] RN Member Role: Primary Care Nurse Name: Tiffany Ugalde RN Position: [facility] RN Member Role: Primary Care Nurse Name: Katelynn Moss RN Position: [facility] RN Member Role: Primary Care Nurse Name: Milla Emmanuel RN Position: [facility] AMB Nurse Member Role: Primary Care Nurse Name: Carol Cordova Position: [facility] RN Member Role: Primary Care Nurse Name: Katt Gustafson Position: [facility] RN Member Role: Primary Care Nurse Name: Ashely Pacheco Position: [facility] RN Member Role: Primary Care Nurse Name: Miri Espitia RN Position: [facility] Nurse Member Role: Primary Care Nurse Name: Maksim Hunt III, RN Position: [facility] RN Member Role: Primary Care Nurse Name: Elisa Fields RN Position: [facility] RN Member Role: Primary Care Nurse Name: Aron Mcginnis RN Position: [facility] ED RN W/OE and Tasks Member Role: Primary Care Nurse Name: Natalia Plata RN Position: [facility] RN Member Role: Primary Care Nurse Name: Kacy Barnhart RN Position: [facility] RN Member Role: Primary Care Nurse Name: Guerline Ramirez RN Position: [facility] RN Member Role: Primary Care Nurse Name: Ashlyn Cordova RN Position: [facility] Onco RN Member Role: Primary Care Nurse Name: Jennifer Ignacio RN Position: [facility] RN Member Role: Primary Care Nurse Care Team Related Persons Name: TTAIANNA NGOOg Address: home [address] [address] Name: TEVIN WILL Address: home [address] [place] [address] Name: ALEX WILL Address: home [address] [place] [address] Name: ALEX ROPER Address: home [address] [place] [address]
--- OUTSIDE RECORDS SUMMARY | 2023-09-06 15:42 | XMS_ITS | Continuity of Care Document ---
Author Organization [facility] Address [address] [place] [address]- Care Team Providers Care Wine Specialist Name Role Phone Helena GALLEGOS, Marissa Hernandez Primary Care Physician [phone] Encounter [facility] Date(s): 06/14/22 - 07/14/22 [facility] [address] [place], [place] [address] Allergies, Adverse Reactions, Alerts Substance [...] 06/10/22 14:19:00 EST, Route to Pharmacy Electronically, [facility] #[id number], 165, cm, 05/25/22 14:24:00 EST, Height, 80, kg, 04/14/22 3:03:00 E... Start Date: 06/10/22 Stop Date: 10/08/22 Status: Ordered acamprosate 333 mg oral delayed release tablet 2 tablet = 666 mg, By Mouth, 3 times a day, # 180 tablet, 0 Refills, Maintenance, 04/19/22 12:37:00EST, CR Tablet, [facility], Partial fill upon patient request if the prescription is for a schedule II opioid drug., 165, cm, 04/19/22 11... Start Date: 04/19/22 Stop Date: 05/19/22 Status: Ordered busPIRone 15 mg oral tablet 1 tablet = 15 mg, By Mouth, 3 times a day, # 90 tablet, 3 Refills, Maintenance, 06/10/22 14:24:00 EST, Tablet, [facility] #[id number], Partial fill upon patient request if the prescription is for a schedule II opioid drug., 165, cm, 05/25/22 14:2... Start Date: 06/10/22 Stop Date: 10/08/22 Status: Ordered Creon 36,000 units oral delayed release capsule 1 capsule, By Mouth, 3 times a day, # 90 capsule, 3 Refills, Maintenance, 06/08/22 9:09:00 EST, [facility] #[id number], Partial fill upon patient request if the prescription is for a schedule IIopioid drug., 1 capsule By Mouth 3 times a day, 165... Start Date: 06/08/22 Status: Ordered doxepin 50 mg oral capsule 1 capsule = 50 mg, By Mouth, Daily at bedtime, # 30 capsule, 3 Refills, Maintenance, 06/10/22 14:20:00 EST, Capsule, [facility] #[id number], 165, cm, 05/25/22 14:24:00 EST, Height, 80, kg, 04/14/22 3:03:00 EST, Dry Weight Start Date: 06/10/22 Stop Date: 10/08/22 Status: Ordered fluticasone 50 mcg/inh nasal spray See Instructions, SHAKE LIQUID AND USE 1 SPRAY IN EACH NOSTRIL TWICE DAILY, # 15.8 mL, 3 Refills, 03/23/21 16:18:00 EST, [facility] #[id number], SHAKE LIQUID AND USE 1 SPRAY IN EACH NOSTRIL TWICE DAILY, 164, cm, 03/23/21 15:58:00 EST, Height, 86.... Start Date: 03/23/21 Status: Ordered gabapentin 600 mg oral tablet See Instructions, 1 tablet in the morning and 2 tablets at bedtime, # 90 tablet, 3 Refills, Maintenance, 06/10/22 14:20:00 EST, Tablet, [facility] #[id number], 165, cm, 05/25/22 14:24:00 EST, Height, 80, kg, 04/14/22 3:03:00 EST, Dry Weight Start Date: 06/10/22 Status: Ordered loperamide 2 mg oral capsule 2 mg, 1, capsule, By Mouth, Every 3 hours, PRN, # 30 capsule, Refills 0, Tot. Refills 0, Acute 04/19/23 11:43:00 EST, Loose Stool, 04/19/22 11:43:00 EST, Route to Pharmacy Electronically, [facility], Partial fill upon patient request if... Start Date: 04/19/22 Stop Date: 04/19/23 Status: Ordered LORazepam 1 mg oral tablet 1 tablet = 1 mg, By Mouth, 3 times a day, PRN as needed for anxiety, # 90 tablet, 3 Refills, Maintenance, 06/10/22 14:21:00 EST, Tablet, [facility] #[id number], Partial fill upon patient requestif the prescription is for a schedule II opioid elijah... Start Date: 06/10/22 Stop Date: 10/08/22 Status: Ordered multivitamin Multiple Vitamins oral tablet 1 tablet, By Mouth, Daily, # 30 tablet, 1 Refills, Maintenance, 10/01/19 11:23:00 EDT, Tablet, [facility], 1 tablet By Mouth Daily,x30 days, 165.1, cm, 10/01/19 8:37:00 EDT, Height, 80.1, kg, 09/19/19 16:30:00 EDT, Dry Weight Start Date: 10/01/19 Stop Date: 11/30/19 Status: Ordered Narcan 4 mg/0.1 mL nasal spray = 4 mg, Nares, Both, Once, # 2 each, 0 Refills, Soft Stop, 04/19/22 12:16:00 EST, [facility], Partial fill upon patient [...] Maintenance,06/10/22 14:21:00 EST, Route to Pharmacy Electronically, [facility] #[id number], 165, cm, 05/25/22 14:24:00 EST, Height, 80, kg, 04/14/22 3:03:00... Start Date: 06/10/22 Stop Date: 10/08/22 Status: Ordered traMADol 50 mg oral tablet 1 tablet = 50 mg, By Mouth, Every 8 hours, 30 each, TAKE 1 TABLET BY MOUTH EVERY 8 HOURS NEEDED FOR FOR PAIN, # 30 tablet, 2 Refills, Maintenance, 06/14/22 15:23:00 EST, Tablet, [facility] #[id number], Partial fill upon patient request if the... Start Date: 06/14/22 Status: Ordered traZODone 100 mg oral tablet 100 mg, 1, tablet, By Mouth, Daily at bedtime, TAKE 1 TABLET BY MOUTH EVERY NIGHT AT BEDTIME, # 30 tablet, Refills 3, Tot. Refills 3, Maintenance, 06/10/22 14:22:00 EST, Route to Pharmacy Electronically, [facility] #[id number], Partial fill upon... Start Date: 06/10/22 Stop [...] Team Personnel Name: Marissa Malik NP Position: [facility] PCO Associate Professional Member Role: PCP Address: Address: [address] [place] [id number] Name: Elisa Lamar RN Position: [facility] RN Member Role: Primary Care Nurse Name: Zo Segal [facility] RN Member Role: Primary Care Nurse Name: Antonia Mtz RN Position: [facility] RN Member Role: Primary Care Nurse Name: Tiffany Ugalde RN Position: [facility] RN Member Role: Primary Care Nurse Name: Katelynn Moss RN Position: [facility] RN Member Role: Primary Care Nurse Name: Milla Emmanuel RN Position: [facility] RN Member Role: Primary Care Nurse Name: Carol Cordova Position: [facility] RN Member Role: Primary Care Nurse Name: Katt Gustafson Position: [facility] RN Member Role: Primary Care Nurse Name: Ashely Pacheco Position: [facility] RN Member Role: Primary Care Nurse Name: Miri Espitia RN Position: [facility] AMB Nurse Member Role: Primary Care Nurse Name: Maksim Hunt III, RN Position: [facility] RN Member Role: Primary Care Nurse Name: Elisa Fields RN Position: [facility] RN Member Role: Primary Care Nurse Name: Aron Mcginnis RN Position: [facility] ED RN W/OE and Tasks Member Role: Primary Care Nurse Name: Natalia Plata RN Position: [facility] RN Member Role: Primary Care Nurse Name: Kacy Barnhart RN Position: [facility] RN Member Role: Primary Care Nurse Name: Guerline Ramirez RN Position: [facility] RN Member Role: Primary Care Nurse Name: Ashlyn Cordova RN Position: [facility] Onco RN Member Role: Primary Care Nurse Name: Jennifer Ignacio RN Position: [facility] RN Member Role: Primary Care Nurse Care Team Related Persons Name: KORY NGO Address: home [address] [address] Name: TEVIN WILL Address: [address] [place] [address] Name: ALEX WILL Address: [address] [place] [address] Name: ALEX ROPER Address: home [address] [place] [address]
--- OUTSIDE RECORDS SUMMARY | 2023-09-06 15:42 | XMS_ITS | Continuity of Care Document ---
Author Organization [facility] [place] Address [address] [place] [address]- Care Team Providers Care Technical Communicator Name Role Phone Marissa Malik NP Primary Care Physician [phone] Encounter [facility] Date(s): 12/16/22 - 01/15/23 [facility] [place] [address] [place], [place] [address] Allergies, Adverse Reactions, Alerts Substance Reaction [...] 11/15/22 14:23:00 EDT, Route to Pharmacy Electronically, [facility] #[id number], 165, cm, 11/10/22 10:56:00 EDT, Height, 79, kg, 11/10/22 10:56:00... Start Date: 11/15/22 Stop Date: 03/15/23 Status: Ordered acamprosate 333 mg oral delayed release tablet 2 tablet = 666 mg, By Mouth, 3 times a day, # 180 tablet, 0 Refills, Maintenance, 04/19/22 12:37:00EST, CR Tablet, [facility], Partial fill upon patient request if the prescription is for a schedule II opioid drug., 165, cm, 12/13/22 11... Start Date: 04/19/22 Stop Date: 05/19/22 Status: Ordered busPIRone 15 mg oral tablet 1 tablet = 15 mg, By Mouth, 3 times a day, # 90 tablet, 3 Refills, Maintenance, 11/15/22 14:23:00 EDT, Tablet, [facility] #[id number], Partial fill upon patient request if the prescription is for a schedule II opioid drug., 165, cm, 11/10/22 10:5... Start Date: 11/15/22 Stop Date: 03/15/23 Status: Ordered Creon 36,000 units oral delayed release capsule 1 capsule, By Mouth, 3 times a day, # 90 capsule, 3 Refills, Maintenance, 06/08/22 9:09:00 EST, [facility] #[id number], Partial fill upon patient request if the prescription is for a schedule IIopioid drug., 1 capsule By Mouth 3 times a day, 165... Start Date: 06/08/22 Status: Ordered doxepin 50 mg oral capsule 1 capsule = 50 mg, By Mouth, Daily at bedtime, # 30 capsule, 3 Refills, Maintenance, 11/15/22 14:23:00 EDT, Capsule, [facility] #[id number], 165, cm, 11/10/22 10:56:00 EDT, Height, 79, kg, 11/10/22 10:56:00 EDT, Dry Weight Start Date: 11/15/22 Stop Date: 03/15/23 Status: Ordered gabapentin 600 mg oral tablet See Instructions, 1 tablet in the morning and 2 tablets at bedtime, # 90 tablet, 3 Refills, Maintenance, 11/15/22 14:24:00 EDT, Tablet, [facility] #[id number], 165, cm, 11/10/22 10:56:00 EDT, Height, 79, kg, 11/10/22 10:56:00 EDT, Dry Weight Start Date: 11/15/22 Status: Ordered LORazepam 1 mg oral tablet 1 tablet = 1 mg, By Mouth, 3 times a day, PRN as needed for anxiety, # 90 tablet, 3 Refills, Maintenance, 11/15/22 14:24:00 EDT, Tablet, [facility] #[id number], Partial fill upon patient requestif the prescription is for a schedule II opioid elijah... Start Date: 11/15/22 Stop Date: 03/15/23 Status: Ordered multivitamin Multiple Vitamins oral tablet 1 tablet, By Mouth, Daily, # 30 tablet, 1 Refills, Maintenance, 10/01/19 11:23:00 EDT, Tablet, [id number], 1 tablet By Mouth Daily,x30 days, 165.1, [...] Maintenance,11/15/22 14:24:00 EDT, Route to Pharmacy Electronically, [facility] #[id number], 165, cm, 11/10/22 10:56:00 EDT, Height, 79, kg, 11/10/22 10:56:00... Start Date: 11/15/22 Stop Date: 02/13/23 Status: Ordered traZODone 100 mg oral tablet 100 mg, 1, tablet, By Mouth, Daily at bedtime, TAKE 1 TABLET BY MOUTH EVERY NIGHT AT BEDTIME, # 30 tablet, Refills 3, Tot. Refills 3, Maintenance, 11/15/22 14:24:00 EDT, Route to Pharmacy Electronically, [facility] #[id number], Partial fill upon... Start Date: 11/15/22 Stop Date: 03/15/23 Status: Ordered valACYclovir 500 mg oral tablet 500 mg, 1, tablet, By Mouth, 2 times a day, # 6 tablet, Refills 1, Tot. Refills 1, Maintenance, 11/10/22 11:16:00 EDT, Route to Pharmacy Electronically, [facility] #[id number], Partial fill uponpatient request if the prescription [...] Associate Professional Member Role: PCP Address: Address: [address] [place] [address] [place], [place] [address] Name: Elisa Lamar RN Position: [facility] RN Member Role: Primary Care Nurse Name: Zo Segal RN Position: [facility]O Nurse Member Role: Primary Care Nurse Name: Antonia Mtz RN Position: [facility] RN Member Role: Primary Care Nurse Name: Milla Emmanuel RN Position: [facility] RN Member Role: Primary Care Nurse Name: Carol Min [place] Position: [facility] RN Member Role: Primary Care Nurse Name: Katt Gustafson Position: [facility] RN Member Role: Primary Care Nurse Name: Ashely Pacheco Position: [facility] RN Member Role: Primary Care Nurse Name: Nupur KEY, Miri Levi Position: [facility] AMB Nurse Member [...] Persons Name: KORY NGO Address: home [address] [address] Name: TEVIN WILL Address: home [address] [place] [address] Name: ALEX WILL Address: [address] [place] [address] Name: ALEX ROPER Address: [address] [place] [address]
--- OUTSIDE RECORDS SUMMARY | 2023-09-06 15:42 | XMS_ITS | Continuity of Care Document ---
Author Organization [facility] Primary Car e Bean Address [address] [place] [address]- Care Team Providers Care Facilities And Grounds Director Name Role Phone Helena GALLEGOS, Marissa Hernandez Primary Care Physician Encounter [facility] Date(s): 05/13/22 - 06/12/22 [facility] [address], [place] [address] Allergies, Adverse Reactions, Alerts [...] 06/10/22 14:19:00 EST, Route to Pharmacy Electronically, [facility] #[id number], 165, cm, 05/25/22 14:24:00 EST, Height, 80, kg, 04/14/22 3:03:00 E... Start Date: 06/10/22 Stop Date: 10/08/22 Status: Ordered acamprosate 333 mg oral delayed release tablet 2 tablet = 666 mg, By Mouth, 3 times a day, # 180 tablet, 0 Refills, Maintenance, 04/19/22 12:37:00EST, CR Tablet, [facility], Partial fill upon patient request if the prescription is for a schedule II opioid drug., 165, cm, 04/19/22 11... Start Date: 04/19/22 Stop Date: 05/19/22 Status: Ordered busPIRone 15 mg oral tablet 1 tablet = 15 mg, By Mouth, 3 times a day, # 90 tablet, 3 Refills, Maintenance, 06/10/22 14:24:00 EST, Tablet, [facility] #[id number], Partial fill upon patient request if the prescription is for a schedule II opioid drug., 165, cm, 05/25/22 14:2... Start Date: 06/10/22 Stop Date: 10/08/22 Status: Ordered Creon 36,000 units oral delayed release capsule 1 capsule, By Mouth, 3 times a day, # 90 capsule, 3 Refills, Maintenance, 06/08/22 9:09:00 EST, [facility] #[id number], Partial fill upon patient request if the prescription is for a schedule IIopioid drug., 1 capsule By Mouth 3 times a day, 165... Start Date: 06/08/22 Status: Ordered doxepin 50 mg oral capsule 1 capsule = 50 mg, By Mouth, Daily at bedtime, # 30 capsule, 3 Refills, Maintenance, 06/10/22 14:20:00 EST, Capsule, [facility] #[id number], 165, cm, 05/25/22 14:24:00 EST, Height, 80, kg, 04/14/22 3:03:00 EST, Dry Weight Start Date: 06/10/22 Stop Date: 10/08/22 Status: Ordered fluticasone 50 mcg/inh nasal spray See Instructions, SHAKE LIQUID AND USE 1 SPRAY IN EACH NOSTRIL TWICE DAILY, # 15.8 mL, 3 Refills, 03/23/21 16:18:00 EST, [facility] #[id number], SHAKE LIQUID AND USE 1 SPRAY IN EACH NOSTRIL TWICE DAILY, 164, cm, 03/23/21 15:58:00 EST, Height, 86.... Start Date: 03/23/21 Status: Ordered gabapentin 600 mg oral tablet See Instructions, 1 tablet in the morning and 2 tablets at bedtime, # 90 tablet, 3 Refills, Maintenance, 06/10/22 14:20:00 EST, Tablet, [facility] #[id number], 165, cm, 05/25/22 14:24:00 EST, Height, 80, kg, 04/14/22 3:03:00 EST, Dry Weight Start Date: 06/10/22 Status: Ordered loperamide 2 mg oral capsule 2 mg, 1, capsule, By Mouth, Every 3 hours, PRN, # 30 capsule, Refills 0, Tot. Refills 0, Acute 04/19/23 11:43:00 EST, Loose Stool, 04/19/22 11:43:00 EST, Route to Pharmacy Electronically, [facility], Partial fill upon patient request if... Start Date: 04/19/22 Stop Date: 04/19/23 Status: Ordered LORazepam 1 mg oral tablet 1 tablet = 1 mg, By Mouth, 3 times a day, PRN as needed for anxiety, # 90 tablet, 3 Refills, Maintenance, 06/10/22 14:21:00 EST, Tablet, [facility] #[id number], Partial fill upon patient requestif the prescription is for a schedule II opioid elijah... Start Date: 06/10/22 Stop Date: 10/08/22 Status: Ordered multivitamin Multiple Vitamins oral tablet 1 tablet, By Mouth, Daily, # 30 tablet, 1 Refills, Maintenance, 10/01/19 11:23:00 EDT, Tablet, [facility], 1 tablet By Mouth Daily,x30 days, 165.1, cm, 10/01/19 8:37:00 EDT, Height, 80.1, kg, 09/19/19 16:30:00 EDT, Dry Weight Start Date: 10/01/19 Stop Date: 11/30/19 Status: Ordered Narcan 4 mg/0.1 mL nasal spray = 4 mg, Nares, Both, Once, # 2 each, 0 Refills, Soft Stop, 04/19/22 12:16:00 EST, [facility], [...] Maintenance,06/10/22 14:21:00 EST, Route to Pharmacy Electronically, [facility] #[id number], 165, cm, 05/25/22 14:24:00 EST, Height, 80, kg, 04/14/22 3:03:00... Start Date: 06/10/22 Stop Date: 10/08/22 Status: Ordered traMADol 50 mg oral tablet 1 tablet = 50 mg, By Mouth, Every 8 hours, 30 each, TAKE 1 TABLET BY MOUTH EVERY 8 HOURS NEEDED FOR FOR PAIN, # 30 tablet, 2 Refills, Maintenance, 05/26/22 8:00:00 EST, Tablet, [facility] #[id number], Partial fill upon patient request if the p... Start Date: 05/26/22 Status: Ordered traZODone 100 mg oral tablet 100 mg, 1, tablet, By Mouth, Daily at bedtime, TAKE 1 TABLET BY MOUTH EVERY NIGHT AT BEDTIME, # 30 tablet, Refills 3, Tot. Refills 3, Maintenance, 06/10/22 14:22:00 EST, Route to Pharmacy Electronically, [facility] #[id number], Partial fill upon... Start Date: 06/10/22 Stop [...] Team Personnel Name: Marissa Malik NP Position: [facility] PCO Associate Professional Member Role: PCP Address: Address: [address] [place] [id number] Name: Elisa Lamar RN Position: [facility] RN Member Role: Primary Care Nurse Name: Zo Segal [facility] RN Member Role: Primary Care Nurse Name: Antonia Mtz RN Position: [facility] RN Member Role: Primary Care Nurse Name: Tiffany Ugalde RN Position: [facility] RN Member Role: Primary Care Nurse Name: Katelynn Moss RN Position: [facility] RN Member Role: Primary Care Nurse Name: Milla Emmanuel RN Position: [facility] AMB Nurse Member Role: Primary Care Nurse Name: Carol Cordova Position: [facility] RN Member Role: Primary Care Nurse Name: Katt Gustafson Position: [facility] RN Member Role: Primary Care Nurse Name: Ashely Pacheco Position: [facility] RN Member Role: Primary Care Nurse Name: Miri Espitia RN Position: [facility] Nurse Member Role: Primary Care Nurse Name: Maksim Hunt III, RN Position: [facility] RN Member Role: Primary Care Nurse Name: Elisa Fields RN Position: [facility] RN Member Role: Primary Care Nurse Name: Aron Mcginnis RN Position: [facility] ED RN W/OE and Tasks Member Role: Primary Care Nurse Name: Natalia Plata RN Position: [facility] RN Member Role: Primary Care Nurse Name: Kacy Barnhart RN Position: [facility] RN Member Role: Primary Care Nurse Name: Guerline Ramirez RN Position: [facility] RN Member Role: Primary Care Nurse Name: Ashlyn Cordova RN Position: [facility] Onco RN Member Role: Primary Care Nurse Name: Jennifer Ignacio RN Position: [facility] RN Member Role: Primary Care Nurse Care Team Related Persons Name: TATIANNA NGOOg Address: home [address] [address] Name: TEVIN WILL Address: home [address] [place] [address] Name: ALEX WILL Address: [address] [place] [address] Name: ALEX ROPER Address: home [address] [place] [address]
--- OUTSIDE RECORDS SUMMARY | 2023-09-06 15:42 | XMS_ITS | Continuity of Care Document ---
Author Organization [facility] ter Address [address] [place] [id number]- Care Team Providers Care Mail Handler Sorter Name Role Phone Marissa Malik NP Primary Care Physician Encounter [facility] Date(s): 04/30/22 - 04/30/[address] [address]- Encounter Diagnosis Alcohol dependence(Final) - 04/30/22 Alcoholic hepatitis(Final) - 04/30/22 Pancreatitis, chronic(Final) - 04/30/22 Post traumatic stress disorder (PTSD)(Final) - 04/30/22 Abdominal pain(Final) - 04/30/22 Discharge Disposition: A-D/C Home Attending Physician: Miguelina Mccoy MD Admitting Physician: Miguelina Mccoy MD Referring Physician: Not on Staff, Referring [...] 03/15/22 11:53:00 EST, Route to Pharmacy Electronically, [email or web address] #[id number], 165, cm, 02/23/22 23:48:00 EDT, Height, 83, kg, 02/23/22 0:48:00 E... Start Date: 03/15/22 Stop Date: 07/13/22 Status: Ordered acamprosate 333 mg oral delayed release tablet 2 tablet = 666 mg, By Mouth, 3 times a day, # 180 tablet, 0 Refills, Maintenance, 04/19/22 12:37:00EST, CR Tablet, [facility], Partial fill upon patient request if the prescription is for a schedule II opioid drug., 165, cm, 04/19/22 11... Start Date: 04/19/22 Stop Date: 05/19/22 Status: Ordered Creon 12,000 units oral delayed release capsule 2 capsule, By Mouth, 3 times a day, # 180 capsule, 6 Refills, Maintenance, 03/30/22 17:46:00 EST, [email or web address] #[id number], 165, cm, 03/30/22 16:47:00 EST, Height, 83, kg, 02/23/22 0:48:00 EDT, Dry Weight Start Date: 03/30/22 Status: Ordered Dilaudid Inj 1 mg, Injection, IV Push Slowly, Every 15 minutes for 3 doses/times, PRN for Pain , Moderate, and SBP greater than 100, STAT, 04/30/22 14:56:00 EST, Stop date Limited # of times Start Date: 04/30/22 Status: Ordered doxepin 50 mg oral capsule 1 capsule = 50 mg, By Mouth, Daily at bedtime, # 30 capsule, 3 Refills, Maintenance, 03/15/22 11:53:00 EST, Capsule, [email or web address] #[id number], 165, cm, 02/23/22 23:48:00 EDT, Height, 83, kg, 02/23/22 0:48:00 EDT, Dry Weight Start Date: 03/15/22 Stop Date: 07/13/22 Status: Ordered fluticasone 50 mcg/inh nasal spray See Instructions, SHAKE LIQUID AND USE 1 SPRAY IN EACH NOSTRIL TWICE DAILY, # 15.8 mL, 3 Refills, 03/23/21 16:18:00 EST, [email or web address] #[id number], SHAKE LIQUID AND USE 1 SPRAY IN EACH NOSTRIL TWICE DAILY, 164, cm, 03/23/21 15:58:00 EST, Height, 86.... Start Date: 03/23/21 Status: Ordered gabapentin 600 mg oral tablet See Instructions, 1 tablet in the morning and 2 tablets at bedtime, # 90 tablet, 3 Refills, Maintenance, 03/15/22 11:52:00 EST, Tablet, [email or web address] #[id number], 165, cm, 02/23/22 23:48:00 EDT, Height, 83, kg, 02/23/22 0:48:00 EDT, Dry Weight Start Date: 03/15/22 Status: Ordered HYDROmorphone 2 mg oral tablet 1 tablet = 2 mg, By Mouth, Every 3 hours, PRN for pain, for 3 days, # 24 tablet, 0 Refills, Acute 05/03/22 16:55:00 EST, 04/30/22 16:55:00 EST, Tablet, [email or web address] #[id number], Partial fill upon patient request if the prescription is for a schedul... Start Date: 04/30/22 Stop Date: 05/03/22 Status: Ordered loperamide 2 mg oral capsule 2 mg, 1, capsule, By Mouth, Every 3 hours, PRN, # 30 capsule, Refills 0, Tot. Refills 0, Acute 04/19/23 11:43:00 EST, Loose Stool, 04/19/22 11:43:00 EST, Route to Pharmacy Electronically, [facility], Partial fill upon patient request if... [...] tablet, 0 Refills, Maintenance, 04/19/22 13:13:00 EST, [facility], Partial fill upon patient request if the prescription is for a schedule II opioid drug., 165, cm, 04/19/22 11:15:00 EST,... Start Date: 04/19/22 Stop Date: 04/26/22 Status: Ordered morphine 15 mg/8 to 12 hr oral tablet, extended release 1 tablet = 15 mg, By Mouth, Every 12 hours, # 6 tablet, 0 Refills, Maintenance, 04/30/22 16:54:00 EST, [facility] #[id number], Partial fill upon patient request if the prescription is for a schedule II opioid drug., 165, cm, 04/19/22 11:15:00 EST... Start Date: 04/30/22 Stop Date: 05/03/22 Status: Ordered MorPHINE CR Tablet 15 mg, CR Tablet, By Mouth, STAT, 04/30/22 17:29:00 EST Start Date: 04/30/22 Stop Date: 04/30/22 Status: Completed multivitamin Multiple Vitamins oral tablet 1 tablet, By Mouth, Daily, # 30 tablet, 1 Refills, Maintenance, 10/01/19 11:23:00 EDT, Tablet, [facility], 1 tablet By Mouth Daily,x30 days, 165.1, cm, 10/01/19 8:37:00 EDT, Height, 80.1, kg, 09/19/19 16:30:00 EDT, Dry Weight Start Date: 10/01/19 Stop Date: 11/30/19 Status: Ordered Narcan 4 mg/0.1 mL nasal spray = 4 mg, Nares, Both, Once, # 2 each, 0 Refills, Soft Stop, 04/19/22 12:16:00 EST, [facility], Partial fill upon patient request if [...] Maintenance,03/15/22 11:52:00 EST, Route to Pharmacy Electronically, [email or web address] #[id number], 165, cm, 02/23/22 23:48:00 EDT, Height, 83, kg, 02/23/22 0:48:00... Start Date: 03/15/22 Stop Date: 07/13/22 Status: Ordered traZODone 100 mg oral tablet TAKE 1 TABLET BY MOUTH EVERY NIGHT AT BEDTIME Start Date: 04/14/22 Status: Ordered Zoloft 100 mg oral tablet 2 tablet = 200 mg, By Mouth, Daily, # 60 tablet, 1 Refills, Maintenance, 03/15/22 11:52:00 EST, Tablet, [facility] #[id number], 165, cm, 02/23/22 23:48:00 EDT, Height, 83, [...] Confirmed Active 1Reports HX several times previously Vital Signs Most recent to oldest [Reference Range]: 1 2 3 Oxygen Saturation [94-100 %] 98 % (04/30/22 4:32 PM) 98 % (04/30/22 2:34 PM) Pulse Rate [55-90 bpm] 80 bpm (04/30/22 4:32 PM) 82 bpm (04/30/22 2:34 PM) Blood Pressure [90-138/55-84 mm Hg] 133/81mm Hg (04/30/22 4:32 PM) 117/70mm Hg (04/30/22 2:34 PM) Respiratory Rate [16-30 br/min] 17 br/min (04/30/22 5:56 PM) 19 br/min (04/30/22 4:32 PM) 20 br/min (04/30/22 4:29 PM) Temperature [96.8-100.4 DegF] 98.8 DegF (04/30/22 2:34 PM) Mode of Delivery (Oxygen) Room air (04/30/22 4:32 PM) Room air (04/30/22 2:34 PM) Blood pressure sites Arm, right (04/30/22 4:32 PM) Arm, right (04/30/22 2:34 PM) Temperature Route Oral (04/30/22 2:34 PM) Social History Social History Type Response Smoking Status Current every day sm alexandre; Tobacco user in household: Yes entered on: 05/01/14 Sex Note * Kristina Muhammad MD: PERFORM, SIGN, VERIFY Event Display: Patient Education Handout Authored Date: [id number] * Kristina Muhammad MD: PERFORM Event Display: Patient Education Leaflets Authored Date: [id number] Pancreatitis ?? [id number] Pancreatitis The pancreas is an organ in the??belly (abdomen). It secretes hormones and digestive juices (enzymes) into the stomach to aid with digestion and blood sugar levels. Pancreatitis is an inflammation ofthe pancreas. In many cases, it's caused when the duct that connects the pancreas and gallbladder is blocked by a gallstone.??Heavy alcohol use is another major cause.??Less common causes can includemedicines, trauma, certain medical procedures, viruses, and toxins. Sometimes the cause of pancreatitis can't be found.??Genetic testing is sometimes done in those cases, especially if there is a family history of pancreatic disease. Symptoms of pancreatitis include: ??? Severe abdominal pain? Nausea and vomiting ??? Severe indigestion ??? Racing heart ??? Fever If the pancreatitis becomes a chronic problem, diarrhea, chronic pain, weight loss, and poor nutrition can result. At first, pancreatitis may be treated in the hospital.??It may be diagnosed by history, exam, bloodtests, and sometimes imaging studies.?? While in the hospital, fluids and medicines can be provided. The underlying cause of the problem must also be treated to prevent further problems. If gallstones are the cause, you and your healthcare provider can discuss choices for treating them.??This oftenresults in gallbladder surgery. Sometimes another test must be done to clear the drainage ducts of a blocked gallstones.??If alcohol is the cause, talk with your healthcare provider about a program to help you stop drinking. Home care ??? Don't drink alcohol. ??? Rest in bed or sit up in a chair until you feel better. ??? Take medicines as prescribed. If you were given??an antibiotic for infection,??take it until it's gone, even if you feel better. Let your healthcare provider know if you vomit up your medicine. Tips for eating and drinking: ??? Try sipping small amounts of clear liquids often to prevent dehydration.? Your provider may advise clear liquids only for 1 or 2 days. This is to rest the pancreas. ??? When you start eating again, start with small amounts. Have small, more frequent meals rather than larger meals.??Low-fat meals are best. Fruits, vegetables, and whole grains are good choices. Stay away from fried and greasy foods. ?? Follow-up care Follow up with your healthcare provider as advised. ?? When to get medical care Call your healthcare provider right away if any of these occur: ??? Pain that continues or gets worse ??? Repeated vomiting ??? Dizziness, weakness ??? Fever of 100.4?? F (38?? C) or higher, or as advised by your provider ??? Severe muscle cramps ??? Yellowish coloring of the skin and eyes (jaundice) ?? Call 911 Call 911 if you have any of the following: ??? Vomiting blood or large amounts of blood in stool ??? Seizure ??? Loss of consciousness ?? Last Reviewed Date: 2021 ?? 2699-5595 [employer]. All rights reserved. This information is not intended as a substitute for professional medical care. Always follow your healthcare professional's instructions. ?? Patient Care team information Care Team Personnel Name: Marissa Malik NP Position: [facility] PCO Associate Professional Member Role: PCP Address: Address: [address] [place] [id number] Name: Elisa Lamar RN Position: [facility] RN Member Role: Primary Care Nurse Name: Zo Segal RN [facility] RN Member Role: Primary Care Nurse [...] RN Position: [facility] AMB Nurse Member Role: Primary Care Nurse Name: Carol Cordova Position: [facility] RN Member Role: Primary Care Nurse Name: Katt Gustafson Position: [facility] RN Member Role: Primary Care Nurse Name: Ashely Pacheco Position: [facility] RN Member Role: Primary Care Nurse Name: Miri Espitia RN Position: [facility] AMB Nurse Member Role: Primary Care Nurse [...] RN Member Role: Primary Care Nurse Name: Tasha KEY, Ashlyn Lynn Position: [facility] Onco RN Member Role: Primary Care Nurse Name: Jennifer Ignacio RN Position: [facility] RN Member Role: Primary Care Nurse Name: Sunitha Moore RN Position: [facility] ED RN W/OE and Tasks Member Role: Patient Care Provider Name: Kristina Muhammad MD Position: [facility] Resident Member Role: ED Resident Address: Address: [address] [place] [address]- Name: Miguelina Mccoy MD Position: [facility] ED Medicine MD Member Role: Admitting Physician Address: Address: [address] [place] [address]- Care Team Related Persons Name: KORY NGO Address: home [address] [address] Name: TEVIN WILL Address: home [address] [place] [address] Name: ALEX WILL Address: home [address] [place] [address] Name: ALEX ROPER Address: [address] [place] [address]
--- OUTSIDE RECORDS SUMMARY | 2023-09-06 15:42 | XMS_ITS | Continuity of Care Document ---
Author Organization [facility] Address [address] [place] [address]- Care Team Providers Care Neurology Specialist Name Role Phone Helena GALLEGOS, Marissa Hernandez Primary Care Physician Encounter [facility] Date(s): 12/19/22 - 01/18/23 [facility] [address] [place], [place] [address] Attending Physician: Sushant BUTTERFIELD, Alondra Zaldivar Allergies, Adverse Reactions, Alerts Substance Reaction Severity [...] 11/15/22 14:23:00 EDT, [id number], 165, cm, 11/10/22 10:56:00 EDT, Height, 79, kg, 11/10/22 10:56:00... Start Date: 11/15/22 Stop Date: 03/15/23 Status: Ordered acamprosate 333 mg oral delayed release tablet 2 tablet = 666 mg, By Mouth, 3 times a day, # 180 tablet, 0 Refills, Maintenance, 04/19/22 12:37:00EST, CR Tablet, [facility], Partial fill upon patient request if the prescription is for a schedule II opioid drug., 165, cm, 04/19/22 11... Start Date: 04/19/22 Stop Date: 05/19/22 Status: Ordered busPIRone 15 mg oral tablet 1 tablet = 15 mg, By Mouth, 3 times a day, # 90 tablet, 3 Refills, Maintenance, 11/15/22 14:23:00 EDT, Tablet, [facility] #[id number], Partial fill upon patient request if the prescription is for a schedule II opioid drug., 165, cm, 11/10/22 10:5... Start Date: 11/15/22 Stop Date: 03/15/23 Status: Ordered Creon 36,000 units oral delayed release capsule 1 capsule, By Mouth, 3 times a day, # 90 capsule, 3 Refills, Maintenance, 06/08/22 9:09:00 EST, [facility] #[id number], Partial fill upon patient request if the prescription is for a schedule IIopioid drug., 1 capsule By Mouth 3 times a day, 165... Start Date: 06/08/22 Status: Ordered doxepin 50 mg oral capsule 1 capsule = 50 mg, By Mouth, Daily at bedtime, # 30 capsule, 3 Refills, Maintenance, 11/15/22 14:23:00 EDT, Capsule, [facility] #[id number], 165, cm, 11/10/22 10:56:00 EDT, Height, 79, kg, 11/10/22 10:56:00 EDT, Dry Weight Start Date: 11/15/22 Stop Date: 03/15/23 Status: Ordered gabapentin 600 mg oral tablet See Instructions, 1 tablet in the morning and 2 tablets at bedtime, # 90 tablet, 3 Refills, Maintenance, 11/15/22 14:24:00 EDT, Tablet, [facility] #[id number], 165, cm, 11/10/22 10:56:00 EDT, Height, 79, kg, 11/10/22 10:56:00 EDT, Dry Weight Start Date: 11/15/22 Status: Ordered lamotrigine 25 mg oral tablet 25 mg, 1, tablet, By Mouth, Daily at bedtime, # 30 tablet, Refills 0, Tot. Refills 0, Maintenance, 01/17/23 15:31:00 EDT, Route to Pharmacy Electronically, [facility] #[id number], Partial fill upon patient request if the prescription is for a maral... Start Date: 01/17/23 Stop Date: 02/16/23 Status: Ordered LORazepam 1 mg oral tablet 1 tablet = 1 mg, By Mouth, 3 times a day, PRN as needed for anxiety, # 90 tablet, 3 Refills, Maintenance, 11/15/22 14:24:00 EDT, Tablet, [facility] #[id number], Partial fill upon patient requestif the prescription is for a schedule II opioid elijha... Start Date: 11/15/22 Stop Date: 03/15/23 Status: Ordered multivitamin Multiple Vitamins oral tablet 1 tablet, By Mouth, Daily, # 30 tablet, 1 Refills, Maintenance, 10/01/19 11:23:00 EDT, Tablet, [facility], 1 tablet By Mouth Daily,x30 days, 165.1, [...] Maintenance,11/15/22 14:24:00 EDT, Route to Pharmacy Electronically, [facility] #[id number], 165, cm, 11/10/22 10:56:00 EDT, Height, 79, kg, 11/10/22 10:56:00... Start Date: 11/15/22 Stop Date: 02/13/23 Status: Ordered traZODone 100 mg oral tablet 100 mg, 1, tablet, By Mouth, Daily at bedtime, TAKE 1 TABLET BY MOUTH EVERY NIGHT AT BEDTIME, # 30 tablet, Refills 3, Tot. Refills 3, Maintenance, 11/15/22 14:24:00 EDT, Route to Pharmacy Electronically, [facility] #[id number], Partial fill upon... Start Date: 11/15/22 Stop Date: 03/15/23 Status: Ordered valACYclovir 500 mg oral tablet 500 mg, 1, tablet, By Mouth, 2 times a day, # 6 tablet, Refills 1, Tot. Refills 1, Maintenance, 11/10/22 11:16:00 EDT, Route to Pharmacy Electronically, [facility] #[id number], Partial fill uponpatient request if the prescription is for a schedu... Start Date: 11/10/22 Stop Date: 11/16/22 Status: Ordered Wellbutrin XL 150 mg/24 hours oral tablet, extended release 1 tablet = 150 mg, By Mouth, Every 24 hours, # 30 tablet, 0 Refills, Maintenance, 01/17/23 15:32:00EDT, XL Tablet, [facility] #[id number], Partial fill upon patient request if the prescription is for a schedule II opioid drug., 166, cm, 12/16/22... Start Date: 01/17/23 Stop Date: 02/16/23 Status: Ordered Problem List Condition Confirmation Course [...] Care team information Care Team Personnel Name: Helena GALLEGOS Marissa Hernandez Position: [facility] PCO Associate Professional Member Role: PCP Address: Address: [address] [place] [id number] Name: Elisa Lamar RN Position: [facility] RN Member Role: Primary Care Nurse Name: Zo Segal RN Position: [facility] AMB Nurse Member Role: Primary Care Nurse Name: Antonia Mtz RN Position: [facility] RN Member Role: Primary Care Nurse Name: Milla Emmanuel RN Position: [facility] SN RN Member Role: Primary Care Nurse Name: Carol Min [place] Position: [facility] RN Member Role: Primary Care Nurse Name: Katt Gustafson Position: [facility] RN Member Role: Primary Care Nurse Name: Ashely Pacheco Position: [facility] RN Member Role: Primary Care Nurse Name: Miri Espitia RN Position: [facility] Nurse Member Role: Primary Care Nurse Name: Maksim Hunt III, RN Position: [facility] RN Member Role: Primary Care Nurse Name: Elisa Fields RN Position: [facility] RN Member Role: Primary Care Nurse Name: Aron Mcginnis RN Position: [facility] SN RN Member Role: Primary Care Nurse Name: Natalia Plata RN Position: [facility] RN Member Role: Primary Care Nurse Name: Kacy Barnhart RN Position: [facility] RN Member Role: Primary Care Nurse Name: Guerline Ramirez RN Position: [facility] RN Member Role: Primary Care Nurse Name: Ashlyn Cordova RN Position: [facility] Onco RN Member Role: Primary Care Nurse Name: Jennifer Ignacio RN Position: [facility] RN Member Role: Primary Care Nurse Care Team Related Persons Name: JENI TATIANNAOg Address: home [address] [place] [id number] Name: TEVIN WILL Address: home [address] [place] [address] Name: ALEX WILL Address: home [address] [place] [address] Name: ALEX ROPER Address: home [address] [place] [address]
--- OUTSIDE RECORDS SUMMARY | 2023-09-06 15:42 | XMS_ITS | Continuity of Care Document ---
Author Organization [facility] Address [address] [place] [address]- Care Team Providers Care Collection Clerk Name Role Phone Helena GALLEGOS, Marissa Hernandez Primary Care Physician Encounter [facility] Date(s): 03/21/22 - 04/20/22 [facility] [address] [place], [place] [address] Allergies, Adverse Reactions, Alerts Substance [...] 03/15/22 11:53:00 EST, Route to Pharmacy Electronically, [facility] #[id number], 165, cm, 02/23/22 23:48:00 EDT, Height, 83, kg, 02/23/22 0:48:00 E... Start Date: 03/15/22 Stop Date: 07/13/22 Status: Ordered acamprosate 333 mg oral delayed release tablet 2 tablet = 666 mg, By Mouth, 3 times a day, # 180 tablet, 0 Refills, Maintenance, 04/19/22 12:37:00EST, CR Tablet, [facility], Partial fill upon patient request if the prescription is for a schedule II opioid drug., 165, cm, 04/19/22 11... Start Date: 04/19/22 Stop Date: 05/19/22 Status: Ordered Creon 12,000 units oral delayed release capsule 2 capsule, By Mouth, 3 times a day, # 180 capsule, 6 Refills, Maintenance, 03/30/22 17:46:00 EST, [facility] #[id number], 165, cm, 03/30/22 16:47:00 EST, Height, 83, kg, 02/23/22 0:48:00 EDT, Dry Weight Start Date: 03/30/22 Status: Ordered Dilaudid 2 mg oral tablet 1 tablet = 2 mg, By Mouth, Every 4 hours, PRN Pain , Severe, # 28 tablet, 0 Refills, Acute 04/26/2211:56:00 EST, 04/19/22 11:42:00 EST, Tablet, [facility], Partial fill upon patient request if the prescription is for a schedule II opioi... Start Date: 04/19/22 Stop Date: 04/26/22 Status: Ordered doxepin 50 mg oral capsule 1 capsule = 50 mg, By Mouth, Daily at bedtime, # 30 capsule, 3 Refills, Maintenance, 03/15/22 11:53:00 EST, Capsule, [facility] #[id number], 165, cm, 02/23/22 23:48:00 EDT, Height, 83, kg, 02/23/22 0:48:00 EDT, Dry Weight Start Date: 03/15/22 Stop Date: 07/13/22 Status: Ordered fluticasone 50 mcg/inh nasal spray See Instructions, SHAKE LIQUID AND USE 1 SPRAY IN EACH NOSTRIL TWICE DAILY, # 15.8 mL, 3 Refills, 03/23/21 16:18:00 EST, [facility] #[id number], SHAKE LIQUID AND USE 1 SPRAY IN EACH NOSTRIL TWICE DAILY, 164, cm, 03/23/21 15:58:00 EST, Height, 86.... Start Date: 03/23/21 Status: Ordered gabapentin 600 mg oral tablet See Instructions, 1 tablet in the morning and 2 tablets at bedtime, # 90 tablet, 3 Refills, Maintenance, 03/15/22 11:52:00 EST, Tablet, [facility] #[id number], 165, cm, 02/23/22 23:48:00 EDT, Height, 83, kg, 02/23/22 0:48:00 EDT, Dry Weight Start Date: 03/15/22 Status: Ordered loperamide 2 mg oral capsule 2 mg, 1, capsule, By Mouth, Every 3 hours, PRN, # 30 capsule, Refills 0, Tot. Refills 0, Acute 04/19/23 11:43:00 EST, Loose Stool, 04/19/22 11:43:00 EST, Route to Pharmacy Electronically, [facility], Partial fill upon patient [...] tablet, 0 Refills, Maintenance, 04/19/22 13:13:00 EST, [facility], Partial fill upon patient request if the prescription is for a schedule II opioid drug., 165, cm, 04/19/22 11:15:00 EST,... Start Date: 04/19/22 Stop Date: 04/26/22 Status: Ordered multivitamin Multiple Vitamins oral tablet 1 tablet, By Mouth, Daily, # 30 tablet, 1 Refills, Maintenance, 10/01/19 11:23:00 EDT, Tablet, [facility] 1 tablet By Mouth Daily,x30 days, 165.1, cm, 10/01/19 8:37:00 EDT, Height, 80.1, kg, 09/19/19 16:30:00 EDT, Dry Weight Start Date: 10/01/19 Stop Date: 11/30/19 Status: Ordered Narcan 4 mg/0.1 mL nasal spray = 4 mg, Nares, Both, Once, # 2 each, 0 Refills, Soft Stop, 04/19/22 12:16:00 EST, [facility], Partial fill upon [...] Maintenance,03/15/22 11:52:00 EST, Route to Pharmacy Electronically, [facility] #[id number], 165, cm, 02/23/22 23:48:00 EDT, Height, 83, kg, 02/23/22 0:48:00... Start Date: 03/15/22 Stop Date: 07/13/22 Status: Ordered traZODone 100 mg oral tablet TAKE 1 TABLET BY MOUTH EVERY NIGHT AT BEDTIME Start Date: 04/14/22 Status: Ordered Zoloft 100 mg oral tablet 2 tablet = 200 mg, By Mouth, Daily, # 60 tablet, 1 Refills, Maintenance, 03/15/22 11:52:00 EST, Tablet, [facility] #[id number], 165, cm, 02/23/22 23:48:00 EDT, Height, 83, [...] Team Personnel Name: Marissa Malik [facility] Professional Member Role: PCP Address: Address: [address] [place] [id number] Name: Elisa Lamar RN Position: [facility] RN Member Role: Primary Care Nurse Name: Zo Segal RN Position: [facility] PCO RN Member Role: Primary Care Nurse Name: Antonia Mtz RN Position: [facility] RN Member Role: Primary Care Nurse Name: Tiffany Ugalde RN Position: [facility] RN Member Role: Primary Care Nurse Name: Katelynn Moss RN Position: [facility] RN Member Role: Primary Care Nurse Name: Milla Emmanuel RN Position: [facility] MAGO Nurse Member Role: Primary Care Nurse Name: Carol Cordova Position: [facility] RN Member Role: Primary Care Nurse Name: Katt Gustafson Position: [facility] RN Member Role: Primary Care Nurse Name: Ashely Pacheco Position: [facility] RN Member Role: Primary Care Nurse Name: Miri Espitia RN Position: [facility] AMB Nurse Member Role: Primary Care Nurse Name: Maksim Hunt III, RN Position: [facility] RN Member Role: Primary Care Nurse Name: Elisa Fields RN Position: [facility] RN Member Role: Primary Care Nurse Name: Aron Mcginnis RN Position: [facility] SN RN Member Role: Primary Care Nurse Name: Natalia Plata RN Position: [facility] RN Member Role: Primary Care Nurse Name: Kacy Barnhart RN Position: [facility] RN Member Role: Primary Care Nurse Name: Guerline Ramirez RN Position: [facility] RN Member Role: Primary Care Nurse Name: Ashlyn Cordova RN Position: [facility] Onco RN Member Role: Primary Care Nurse Name: Jennifer Ignacio RN Position: [facility] RN Member Role: Primary Care Nurse Care Team Related Persons Name: KORY NGO Address: home [address] [address] Name: TEVIN WILL Address: home [address] [place] [address] Name: ALEX WILL Address: home [address] [place] [address] Name: ALEX ROPER Address: home [address] [place] [address]
--- OUTSIDE RECORDS SUMMARY | 2023-09-06 15:42 | XMS_ITS | Continuity of Care Document ---
Author Organization [facility] Address [address] [place] [address]- Care Team Providers Care Evp Global Product Leadership Name Role Phone Marissa Malik NP Primary Care Physician Encounter [facility] Date(s): 11/24/22 - 12/24/22 [facility] [address] [place] [address]- Attending Physician: AdmGualberto woods Admitting Physician: Admtr, [...] 11/15/22 14:23:00 EDT, Route to Pharmacy Electronically, [facility] #[id number], 165, cm, 11/10/22 10:56:00 EDT, Height, 79, kg, 11/10/22 10:56:00... Start Date: 11/15/22 Stop Date: 03/15/23 Status: Ordered acamprosate 333 mg oral delayed release tablet 2 tablet = 666 mg, By Mouth, 3 times a day, # 180 tablet, 0 Refills, Maintenance, 04/19/22 12:37:00EST, CR Tablet, [facility], Partial fill upon patient request if the prescription is for a schedule II opioid drug., 165, cm, 04/19/22 11... Start Date: 04/19/22 Stop Date: 05/19/22 Status: Ordered busPIRone 15 mg oral tablet 1 tablet = 15 mg, By Mouth, 3 times a day, # 90 tablet, 3 Refills, Maintenance, 11/15/22 14:23:00 EDT, Tablet, [facility] #[id number], Partial fill upon patient request if the prescription is for a schedule II opioid drug., 165, cm, 11/10/22 10:5... Start Date: 11/15/22 Stop Date: 03/15/23 Status: Ordered Creon 36,000 units oral delayed release capsule 1 capsule, By Mouth, 3 times a day, # 90 capsule, 3 Refills, Maintenance, 06/08/22 9:09:00 EST, [facility] #[id number], Partial fill upon patient request if the prescription is for a schedule IIopioid drug., 1 capsule By Mouth 3 times a day, 165... Start Date: 06/08/22 Status: Ordered doxepin 50 mg oral capsule 1 capsule = 50 mg, By Mouth, Daily at bedtime, # 30 capsule, 3 Refills, Maintenance, 11/15/22 14:23:00 EDT, Capsule, [facility] #[id number], 165, cm, 11/10/22 10:56:00 EDT, Height, 79, kg, 11/10/22 10:56:00 EDT, Dry Weight Start Date: 11/15/22 Stop Date: 03/15/23 Status: Ordered gabapentin 600 mg oral tablet See Instructions, 1 tablet in the morning and 2 tablets at bedtime, # 90 tablet, 3 Refills, Maintenance, 11/15/22 14:24:00 EDT, Tablet, [facility] #[id number], 165, cm, 11/10/22 10:56:00 EDT, Height, 79, kg, 11/10/22 10:56:00 EDT, Dry Weight Start Date: 11/15/22 Status: Ordered LORazepam 1 mg oral tablet 1 tablet = 1 mg, By Mouth, 3 times a day, PRN as needed for anxiety, # 90 tablet, 3 Refills, Maintenance, 11/15/22 14:24:00 EDT, Tablet, [facility] #[id number], Partial fill upon patient requestif the prescription is for a schedule II opioid elijah... Start Date: 11/15/22 Stop Date: 03/15/23 Status: Ordered multivitamin Multiple Vitamins oral tablet 1 tablet, By Mouth, Daily, # 30 tablet, 1 Refills, Maintenance, 10/01/19 11:23:00 EDT, Tablet, [facility], 1 tablet By Mouth Daily,x30 days, [...] Maintenance,11/15/22 14:24:00 EDT, Route to Pharmacy Electronically, [facility] #[id number], 165, cm, 11/10/22 10:56:00 EDT, Height, 79, kg, 11/10/22 10:56:00... Start Date: 11/15/22 Stop Date: 02/13/23 Status: Ordered traZODone 100 mg oral tablet 100 mg, 1, tablet, By Mouth, Daily at bedtime, TAKE 1 TABLET BY MOUTH EVERY NIGHT AT BEDTIME, # 30 tablet, Refills 3, Tot. Refills 3, Maintenance, 11/15/22 14:24:00 EDT, Route to Pharmacy Electronically, [facility] #[id number], Partial fill upon... Start Date: 11/15/22 Stop Date: 03/15/23 Status: Ordered valACYclovir 500 mg oral tablet 500 mg, 1, tablet, By Mouth, 2 times a day, # 6 tablet, Refills 1, Tot. Refills 1, Maintenance, 11/10/22 11:16:00 EDT, Route to Pharmacy Electronically, [facility] #[id number], Partial fill uponpatient request if the prescription [...] Team Personnel Name: Marissa Malik NP Position: [facility] PCO Associate Professional Member Role: PCP Address: Address: [address] [place] [address] [place], [place] [address] Name: Elisa Lamar RN Position: [facility] RN Member Role: Primary Care Nurse Name: oZ Segal RN Position: [facility] MAGO Nurse Member Role: Primary Care Nurse Name: Antonia Mtz RN Position: [facility] RN Member Role: Primary Care Nurse Name: Milla Emmanuel RN Position: [facility] RN Member Role: Primary Care Nurse Name: Carol Min [place] Position: [facility] RN Member Role: Primary Care Nurse Name: Katt Gustafson Position: [facility] RN Member Role: Primary Care Nurse Name: Junior Atulmikel Position: [facility] RN Member Role: Primary Care Nurse Name: Miri Espitia RN Position: [facility] AMB Nurse Member Role: Primary Care Nurse Name: Maksim Hunt III, RN Position: [facility] RN Member Role: Primary Care Nurse Name: Elisa Fields RN Position: [facility] RN Member Role: Primary Care Nurse Name: Aron Mcginnis RN Position: [facility] SN RN Member Role: Primary Care Nurse Name: Natalia Plata RN Position: [facility] RN Member Role: Primary Care Nurse Name: Kacy Barnhart RN Position: [facility] RN Member Role: Primary Care Nurse Name: Guerline Ramirez RN Position: [facility] RN Member Role: Primary Care Nurse Name: Ashlyn Cordova RN Position: [facility] Onco RN Member Role: Primary Care Nurse Name: Jennifer Ignacio RN Position: [facility] RN Member Role: Primary Care Nurse Care Team Related Persons Name: KORY NGO Address: home [address] [address] Name: TEVIN WILL Address: [address] [place] [address] Name: ALEX WILL Address: [address] [place] [address] Name: ALEX ROPER Address: [address] [place] [address]
--- OUTSIDE RECORDS SUMMARY | 2023-09-06 15:42 | XMS_ITS | Continuity of Care Document ---
Author Organization [facility] ter Address [address] [place] [id number]- Care Team Providers Care Identification And Records Commander Name Role Phone Helena GALLEGOS, Marissa Hernandez Primary Care Physician Encounter [facility] Date(s): 02/07/22 - 05/07/[address] [id number] Attending Physician: Kae GALLEGOS, Roma Lindsey Admitting Physician: Roma Pal NP Referring Physician: Kae GALLEGOS, Roma Lindsey Allergies, Adverse Reactions, Alerts Substance Reaction Severity [...] 03/15/22 11:53:00 EST, Route to Pharmacy Electronically, [facility] #[id number], 165, cm, 02/23/22 23:48:00 EDT, Height, 83, kg, 02/23/22 0:48:00 E... Start Date: 03/15/22 Stop Date: 07/13/22 Status: Ordered acamprosate 333 mg oral delayed release tablet 2 tablet = 666 mg, By Mouth, 3 times a day, # 180 tablet, 0 Refills, Maintenance, 04/19/22 12:37:00EST, CR Tablet, [facility] 3, Partial fill upon patient request if the prescription is for a schedule II opioid drug., 165, cm, 04/19/22 11... Start Date: 04/19/22 Stop Date: 05/19/22 Status: Ordered Creon 36,000 units oral delayed release capsule 1 capsule, By Mouth, 3 times a day, # 90 capsule, 0 Refills, Maintenance, 05/06/22 14:15:00 EST, [facility] #[id number], Partial fill upon patient request if the prescription is for a schedule II opioid drug., 1 capsule By Mouth 3 times a day, 16... Start Date: 05/06/22 Status: Ordered doxepin 50 mg oral capsule 1 capsule = 50 mg, By Mouth, Daily at bedtime, # 30 capsule, 3 Refills, Maintenance, 03/15/22 11:53:00 EST, Capsule, [facility] #[id number], 165, cm, 02/23/22 23:48:00 EDT, Height, 83, kg, 02/23/22 0:48:00 EDT, Dry Weight Start Date: 03/15/22 Stop Date: 07/13/22 Status: Ordered fluticasone 50 mcg/inh nasal spray See Instructions, SHAKE LIQUID AND USE 1 SPRAY IN EACH NOSTRIL TWICE DAILY, # 15.8 mL, 3 Refills, 03/23/21 16:18:00 EST, [facility] #[id number], SHAKE LIQUID AND USE 1 SPRAY IN EACH NOSTRIL TWICE DAILY, 164, cm, 03/23/21 15:58:00 EST, Height, 86.... Start Date: 03/23/21 Status: Ordered gabapentin 600 mg oral tablet See Instructions, 1 tablet in the morning and 2 tablets at bedtime, # 90 tablet, 3 Refills, Maintenance, 03/15/22 11:52:00 EST, Tablet, [facility] #[id number], 165, cm, 02/23/22 23:48:00 EDT, Height, 83, kg, 02/23/22 0:48:00 EDT, Dry Weight Start Date: 03/15/22 Status: Ordered loperamide 2 mg oral capsule 2 mg, 1, capsule, By Mouth, Every 3 hours, PRN, # 30 capsule, Refills 0, Tot. Refills 0, Acute 04/19/23 11:43:00 EST, Loose Stool, 04/19/22 11:43:00 EST, Route to Pharmacy Electronically, [facility], Partial fill upon patient [...] tablet, 0 Refills, Maintenance, 04/19/22 13:13:00 EST, [facility] 3, Partial fill upon patient request if the prescription is for a schedule II opioid drug., 165, cm, 04/19/22 11:15:00 EST,... Start Date: 04/19/22 Stop Date: 04/26/22 Status: Ordered morphine 15 mg/8 to 12 hr oral tablet, extended release 1 tablet = 15 mg, By Mouth, Every 12 hours, # 6 tablet, 0 Refills, Maintenance, 04/30/22 16:54:00 EST, [facility] #[id number], Partial fill upon patient request if the prescription is for a schedule II opioid drug., 165, cm, 04/19/22 11:15:00 EST... Start Date: 04/30/22 Stop Date: 05/03/22 Status: Ordered multivitamin Multiple Vitamins oral tablet 1 tablet, By Mouth, Daily, # 30 tablet, 1 Refills, Maintenance, 05/26/20 11:23:00 EDT, Tablet, [facility]-, 1 tablet By Mouth Daily,x30 days, 165.1, cm, 10/01/19 8:37:00 EDT, Height, 80.1, kg, 09/19/19 16:30:00 EDT, Dry Weight Start Date: 10/01/19 Stop Date: 11/30/19 Status: Ordered Narcan 4 mg/0.1 mL nasal spray = 4 mg, Nares, Both, Once, # 2 each, 0 Refills, Soft Stop, 04/19/22 12:16:00 EST, [facility] 3, Partial fill upon patient [...] Maintenance,03/15/22 11:52:00 EST, Route to Pharmacy Electronically, [facility] #[id number], 165, cm, 02/23/22 23:48:00 EDT, Height, 83, kg, 02/23/22 0:48:00... Start Date: 03/15/22 Stop Date: 07/13/22 Status: Ordered traZODone 100 mg oral tablet TAKE 1 TABLET BY MOUTH EVERY NIGHT AT BEDTIME Start Date: 04/14/22 Status: Ordered Zoloft 100 mg oral tablet 2 tablet = 200 mg, By Mouth, Daily, # 60 tablet, 1 Refills, Maintenance, 03/15/22 11:52:00 EST, Tablet, [facility] #[id number], 165, cm, 02/23/22 23:48:00 EDT, Height, 83, [...] Team Personnel Name: Marissa Malik NP Position: [facility] Associate Professional Member Role: PCP Address: Address: [address] [place] [id number] Name: Elisa Lamar RN Position: [facility] RN Member Role: Primary Care Nurse Name: Zo Segal RN Position: [facility] PCO RN Member Role: Primary Care Nurse Name: Antonia Mtz RN Position: [facility] RN Member Role: Primary Care Nurse Name: Tiffany Ugalde RN Position: [facility] RN Member Role: Primary Care Nurse Name: Katelynn Moss RN Position: [facility] RN Member Role: Primary Care Nurse Name: Milla Emmanuel RN Position: [facility] AMB Nurse Member Role: Primary Care Nurse Name: Carol Cordova Position: [facility] RN Member Role: Primary Care Nurse Name: Katt Gustafson Position: [facility] RN Member Role: Primary Care Nurse Name: Ashely Pacheco Position: [facility] RN Member Role: Primary Care Nurse Name: Miri Espitia RN Position: [facility] AMB Nurse Member Role: Primary Care Nurse Name: Maksim Hunt III, RN Position: [facility] RN Member Role: Primary Care Nurse Name: Elisa Fields RN Position: [facility] RN Member Role: Primary Care Nurse Name: Aron Mcginnis RN Position: [facility] SN RN Member Role: Primary Care Nurse Name: Natalia Plata RN Position: [facility] RN Member Role: Primary Care Nurse Name: Kacy Barnhart RN Position: [facility] RN Member Role: Primary Care Nurse Name: Guerline Ramirez RN Position: [facility] RN Member Role: Primary Care Nurse Name: Ashlyn Cordova RN Position: [facility] Onco RN Member Role: Primary Care Nurse Name: Jennifer Ignacio RN Position: [facility] RN Member Role: Primary Care Nurse Care Team Related Persons Name: KORY NGO Address: home [address] [address] Name: TEVIN WILL Address: home [address] [place] [address] Name: ALEX WILL Address: home [address] [place] [address] Name: ALEX ROPER Address: home [address] [place] [address]
--- OUTSIDE RECORDS SUMMARY | 2023-09-06 15:42 | XMS_ITS | Continuity of Care Document ---
Author Organization [facility] [place] Address [address] [place] [address]- Care Team Providers Care Video Specialist Name Role Phone Marissa Malik NP Primary Care Physician Encounter [facility] Date(s): 07/23/22 - 08/22/22 [facility] [place] [address] [place], [place] [address] Allergies, Adverse Reactions, Alerts Substance [...] 08/16/22 13:06:00 EDT, Route to Pharmacy Electronically, [facility] #[id number], 165, cm, 07/19/22 13:50:00 EDT, Height, 77.5, kg, 07/19/22 13:50:0... Start Date: 08/16/22 Stop Date: 12/14/22 Status: Ordered acamprosate 333 mg oral delayed release tablet 2 tablet = 666 mg, By Mouth, 3 times a day, # 180 tablet, 0 Refills, Maintenance, 04/19/22 12:37:00EST, CR Tablet, [facility] 3, Partial fill upon patient request if the prescription is for a schedule II opioid drug., 165, cm, 04/19/22 11... Start Date: 04/19/22 Stop Date: 05/19/22 Status: Ordered busPIRone 15 mg oral tablet 1 tablet = 15 mg, By Mouth, 3 times a day, # 90 tablet, 3 Refills, Maintenance, 08/16/22 13:06:00 EDT, Tablet, [facility] #[id number], Partial fill upon patient request if the prescription is for a schedule II opioid drug., 165, cm, 07/19/22 13:5... Start Date: 08/16/22 Stop Date: 12/14/22 Status: Ordered Creon 36,000 units oral delayed release capsule 1 capsule, By Mouth, 3 times a day, # 90 capsule, 3 Refills, Maintenance, 06/08/22 9:09:[id number], Partial fill upon patient request if the prescription is for a schedule IIopioid drug., 1 capsule By Mouth 3 times a day, 165... Start Date: 06/08/22 Status: Ordered doxepin 50 mg oral capsule 1 capsule = 50 mg, By Mouth, Daily at bedtime, # 30 capsule, 3 Refills, Maintenance, 08/16/22 13:06:00 EDT, Capsule, [facility] #[id number], 165, cm, 07/19/22 13:50:00 EDT, Height, 77.5, kg, 07/19/22 13:50:00 EDT, Dry Weight Start Date: 08/16/22 Stop Date: 12/14/22 Status: Ordered fluticasone 50 mcg/inh nasal spray See Instructions, SHAKE LIQUID AND USE 1 SPRAY IN EACH NOSTRIL TWICE DAILY, # 15.8 mL, 3 Refills, 03/23/21 [id number], SHAKE LIQUID AND USE 1 SPRAY IN EACH NOSTRIL TWICE DAILY, 164, cm, 03/23/21 15:58:00 EST, Height, 86.... Start Date: 03/23/21 Status: Ordered gabapentin 600 mg oral tablet See Instructions, 1 tablet in the morning and 2 tablets at bedtime, # 90 tablet, 3 Refills, Maintenance, 08/16/22 13:07:00 EDT, Tablet, [facility] #[id number], 165, cm, 07/19/22 13:50:00 EDT, Height, 77.5, kg, 07/19/22 13:50:00 EDT, Dry Weight Start Date: 08/16/22 Status: Ordered HYDROmorphone 2 mg oral tablet 1 tablet = 2 mg, By Mouth, Every 6 hours, PRN as needed for pain, # 8 tablet, 0 Refills, Maintenance, 07/19/22 18:31:00 EDT, Tablet, [facility] #[id number], Partial fill upon patient request if the prescription is for a schedule II opioid drug.,... Start Date: 07/19/22 Status: Ordered loperamide 2 mg oral capsule 2 mg, 1, capsule, By Mouth, Every 3 hours, PRN, # 30 capsule, Refills 0, Tot. Refills 0, Acute 04/19/23 11:43:00 EST, Loose Stool, 04/19/22 11:43:00 EST, Route to Pharmacy Electronically, [place] [id number], Partial fill upon patient request if... Start Date: 04/19/22 Stop Date: 04/19/23 Status: Ordered LORazepam 1 mg oral tablet 1 tablet = 1 mg, By Mouth, 3 times a day, PRN as needed for anxiety, # 90 tablet, 3 Refills, Maintenance, 08/16/22 13:07:00 EDT, Tablet, [facility] #[id number], Partial fill upon patient requestif the prescription is for a schedule II opioid elijah... Start Date: 08/16/22 Stop Date: 12/14/22 Status: Ordered multivitamin Multiple Vitamins oral tablet 1 tablet, By Mouth, Daily, # 30 tablet, 1 Refills, Maintenance, 10/01/19 11:23:00 EDT, Tablet, [facility]-, 1 tablet By Mouth Daily,x30 days, 165.1, cm, 10/01/19 8:37:00 EDT, Height, 80.1, kg, 09/19/19 16:30:00 EDT, Dry Weight Start Date: 10/01/19 Stop Date: 11/30/19 Status: Ordered Narcan 4 mg/0.1 mL nasal spray = 4 mg, Nares, Both, Once, # 2 each, 0 Refills, Soft Stop, 04/19/22 12:16:00 EST, [facility] 3, Partial fill upon patient [...] Maintenance,08/16/22 13:07:00 EDT, Route to Pharmacy Electronically, [facility] #[id number], 165, cm, 07/19/22 13:50:00 EDT, Height, 77.5, kg, 07/19/22 13:50:... Start Date: 08/16/22 Stop Date: 12/14/22 Status: Ordered traMADol 50 mg oral tablet 1 tablet = 50 mg, By Mouth, Every 8 hours, 30 each, TAKE 1 TABLET BY MOUTH EVERY 8 HOURS NEEDED FOR FOR PAIN, # 30 tablet, 1 Refills, Maintenance, 08/16/22 15:31:00 EDT, Tablet, [facility] #[id number], Partial fill upon patient request if the... Start Date: 08/16/22 Status: Ordered traZODone 100 mg oral tablet 100 mg, 1, tablet, By Mouth, Daily at bedtime, TAKE 1 TABLET BY MOUTH EVERY NIGHT AT BEDTIME, # 30 tablet, Refills 3, Tot. Refills 3, Maintenance, 08/16/22 13:07:00 EDT, [id number], Partial fill upon... Start Date: 08/16/22 Stop [...] Marissa Malik NP [facility] Associate Professional Member Role: PCP Address: Address: [address] [place] [address] [place], [place] [address] Name: Elisa Lamar RN Position: [facility] RN Member Role: Primary Care Nurse Name: Zo Segal RN Position: [facility] PCO RN Member Role: Primary Care Nurse Name: Antonia Mtz RN Position: [facility] RN Member Role: Primary Care Nurse Name: Tiffany Ugalde RN Position: [facility] RN Member Role: Primary Care Nurse Name: Katelynn Moss RN Position: [facility] RN Member Role: Primary Care Nurse Name: Milla Emmanuel RN Position: [facility] SN RN Member Role: Primary Care Nurse Name: Carol oCrdova Position: [facility] RN Member Role: Primary Care Nurse Name: Katt Gustafson Position: [facility] RN Member Role: Primary Care Nurse Name: Ashely Pacheco Position: [facility] RN Member Role: Primary Care Nurse Name: Miri Espitia RN Position: [facility] AMB Nurse Member Role: Primary Care Nurse Name: Maksim Hunt III, RN Position: [facility] RN Member Role: Primary Care Nurse Name: Elisa Fields RN Position: [facility] RN Member Role: Primary Care Nurse Name: Aron Mcginnis RN Position: [facility] SN RN Member Role: Primary Care Nurse Name: Natalia Plata RN Position: [facility] RN Member Role: Primary Care Nurse Name: Kacy Barnhart RN Position: [facility] RN Member Role: Primary Care Nurse Name: Guerline Ramirez RN Position: [facility] RN Member Role: Primary Care Nurse Name: Ashlyn Cordova RN Position: [facility] Onco RN Member Role: Primary Care Nurse Name: Jennifer Ignacio RN Position: [facility] RN Member Role: Primary Care Nurse Care Team Related Persons Name: KORY NGO Address: home [address] [address] Name: TEVIN WILL Address: home [address] [place] [address] Name: ALEX WILL Address: [address] [place] [address] Name: ALEX ROPER Address: home [address] [place] [address]
--- OUTSIDE RECORDS SUMMARY | 2023-09-06 15:42 | XMS_ITS | Continuity of Care Document ---
Author Organization [facility] ter Address [address] [place] [id number]- Care Team Providers Care Orthopedic Technician Name Role Phone Domingo PEST CONTROL WORKER, Anai L Primary Care Physician Encounter [facility] Date(s): 08/29/23 - 08/31/[address] [address]- Encounter Diagnosis Pancreatitis(Final) - 08/29/23 Discharge Disposition: A-D/C Home Attending Physician: Sb BUTTERFIELD, Moriah Admitting Physician: Tati Sheffield MD Referring Physician: Not on Staff, Referring [...] 02/03/23 13:42:00 EDT, Route to Pharmacy Electronically, [facility] #[id number], 166, cm, 12/16/22 17:39:00 EDT, Height, 77, kg, 12/12/22 16:21:00... Start Date: 02/03/23 Stop Date: 08/02/23 Status: Ordered Albuterol (Eqv-ProAir HFA) 90 mcg/inh inhalation aerosol 2 puffs, Inhalation, Every 6 hours, # 8.5 Gm, 0 Refills, Maintenance, 02/17/23 18:07:00 EDT, [facility] #[id number], Partial fill upon patient request if the prescription is for a schedule II opioid drug., 2 puffs Inhalation Every 6 hours, 166, c... Start Date: 02/17/23 Status: Ordered buPROPion 300 mg/24 hours (XL) oral tablet, extended release 1 tablet = 300 mg, By Mouth, Every 24 hours, # 90 tablet, 1 Refills, Maintenance, 06/06/23 16:18:00EST, [facility] #[id number], Partial fill upon patient request if the prescription is for a schedule II opioid drug., 165, cm, 04/02/23 23:00:00 E... Start Date: 06/06/23 Stop Date: 12/03/23 Status: Ordered Creon 36,000 units oral delayed release capsule 1 capsule, By Mouth, 3 times a day, # 90 capsule, 3 Refills, Maintenance, 06/08/22 9:09:00 EST, [facility] #[id number], Partial fill upon patient request if the prescription is for a schedule IIopioid drug., 1 capsule By Mouth 3 times a day, 165... Start Date: 06/08/22 Status: Ordered doxepin 50 mg oral capsule 1 capsule = 50 mg, By Mouth, Daily at bedtime, # 90 capsule, 1 Refills, Maintenance, 06/06/23 16:15:00 EST, Capsule, [facility] #[id number], 165, cm, 04/02/23 23:00:00 EST, Height, 77.5, kg, 04/02/23 23:00:00 EST, Dry Weight Start Date: 06/06/23 Stop Date: 12/03/23 Status: Ordered folic acid 1 mg oral tablet 1 mg, By Mouth, Daily, # 30 each, Refills 0, Tot. Refills 0, Maintenance, 08/31/23 10:09:00 EDT, Route to Pharmacy Electronically, [facility], Partial fill upon patient request if the prescription is for a schedule II opioid drug., 165,... Start Date: 08/31/23 Stop Date: 09/30/23 Status: Ordered gabapentin 600 mg oral tablet 2 tablet = 1,200 mg, By Mouth, Daily at bedtime, 0 Refills, Maintenance, 08/29/23 22:17:00 EDT, Partial fill upon patient request if the prescription is for a schedule II opioid drug. Start Date: 08/29/23 Status: Ordered gabapentin 600 mg oral tablet 1 tablet = 600 mg, By Mouth, Daily, # 270 tablet, 1 Refills, Maintenance, 06/06/23 16:17:00 EST, Tablet, [facility] #[id number], 90 day supply, 165, cm, 04/02/23 23:00:00 EST, Height, 77.5, kg, 04/02/23 23:00:00 EST, Dry Weight Start Date: 06/06/23 Status: Ordered lamotrigine 25 mg oral tablet 75 mg, 3, tablet, By Mouth, Daily at bedtime, # 270 tablet, Refills 1, Tot. Refills 1, Maintenance,06/06/23 16:16:00 EST, Route to Pharmacy Electronically, [facility] #[id number], Partial fill upon patient request if the prescription is for a sc... Start Date: 06/06/23 Stop Date: 12/03/23 Status: Ordered LORazepam 1 mg oral tablet 1 tablet = 1 mg, By Mouth, 3 times a day, PRN as needed for anxiety, # 9 tablet, 0 Refills, Maintenance, 08/25/23 17:15:00 EDT, Tablet, [facility] #[id number], can fill, 160, cm, 08/25/23 11:32:00 EDT, Height, 77.5, kg, 08/25/23 11:32:00 EDT, Dry... Start Date: 08/25/23 Stop Date: 08/28/23 Status: Ordered MorPHINE Inj 1 mg, Injection, IV Push Slowly, Every 4 hours, PRN for Pain , Moderate, Routine, 08/30/23 13:54:00EDT Start Date: 08/30/23 Stop Date: 09/01/23 Status: Discontinued multivitamin Multiple Vitamins oral tablet 1 tablet, By Mouth, Daily, # 30 tablet, 1 Refills, Maintenance, 10/01/19 11:23:00 EDT, Tablet, [id number], 1 tablet By Mouth Daily,x30 days, 165.1, cm, 10/01/19 8:37:00 EDT, Height, 80.1, kg, 09/19/19 16:30:00 EDT, Dry Weight Start Date: 10/01/19 Stop Date: 11/30/19 Status: Ordered nicotine 7 mg/24 hr transdermal film, extended release 1 patch, Topically, Daily, for 28 days, # 28 patch, 0 Refills, Acute 09/05/23 8:14:00 EDT, :14:00 EDT, Patch, [facility], Partial fill upon patient request if the prescriptionis for a schedule II opioid drug. OK to dispense si... Start Date: 08/08/23 Stop Date: 09/05/23 Status: Ordered ondansetron 4 mg oral tablet 1 tablet = 4 mg, By Mouth, Every 8 hours, for 3 days, # 9 tablet, 0 Refills, Acute 09/03/23 10:09:00 EDT, 08/31/23 10:09:00 EDT, Tablet, [facility], Partial fill upon patient request ifthe prescription is for a schedule II opioid drug.,... Start Date: 08/31/23 Stop Date: 09/03/23 Status: Ordered oxyCODONE 5 mg oral tablet 2.5 mg, Tablet, By Mouth, Every 4 hours, PRN for Pain , Moderate, Routine, 08/30/23 8:21:00 EDT Start Date: 08/30/23 Stop Date: 09/01/23 Status: Discontinued oxyCODONE 5 mg oral tablet 2.5 mg, By Mouth, Every 4 hours, PRN, for 3 days, # 9 tablet, Refills 0, Tot. Refills 0, Acute 09/03/23 10:09:00 EDT, Pain , Moderate, 08/31/23 10:09:00 EDT, Route to Pharmacy Electronically, [facility], Partial fill upon patient request... Start Date: 08/31/23 Stop Date: 09/03/23 Status: Ordered pantoprazole 40 mg oral delayed [...] Maintenance,06/06/23 16:17:00 EST, Route to Pharmacy Electronically, [facility] #[id number], 165, cm, 04/02/23 23:00:00 EST, Height, 77.5, kg, 04/02/23 23:00:... Start Date: 06/06/23 Stop Date: 12/03/23 Status: Ordered thiamine 100 mg oral tablet 100 mg, By Mouth, 2 times a day, for 30 days, # 60 tablet, Refills 0, Tot. Refills 0, Acute 09/30/23 10:09:00 EDT, 08/31/23 10:09:00 EDT, Route to Pharmacy Electronically, [facility], Partial fill upon patient request if the prescription... Start Date: 08/31/23 Stop Date: 09/30/23 Status: Ordered traZODone 100 mg oral tablet 100 mg, 1, tablet, By Mouth, Daily at bedtime, TAKE 1 TABLET BY MOUTH EVERY NIGHT AT BEDTIME, # 90 tablet, Refills 1, Tot. Refills 1, Maintenance, 06/06/23 16:17:00 EST, Route to Pharmacy Electronically, [facility] #[id number], Partial fill upon... Start Date: 06/06/23 Stop Date: 12/03/23 Status: Ordered Problem List Condition Confirmation Course Effective Dates Status H ealth Status Informant Abnormal uterine bleeding Confirmed Active Alcohol dependence Confirmed Active Alcohol withdrawal-induced seizure 1 Confirmed Active Alcoholic liver disease Confirmed Active Alcohol use disorder Confirmed Active Attempted suicide - hanging Confirmed 06/27/19 Active Mass of right breast Confirmed Active Chronic low back pain Confirmed Active Chronic pancreatitis Confirmed Active Depression Confirmed Active Endometriosis Confirmed Active Gastritis Confirmed Active Cold sore Confirmed Active Menometrorrhagia Confirmed Active Nicotine dependence Confirmed Active Obese class I Confirmed Active Sprain of ribs Confirmed Active 1Reports HX several times previously Vital Signs Most recent to oldest [Reference Range]: 1 2 3 Height 165 cm (08/31/23 2:35 PM) 165 cm (08/31/23 12:31 PM) 165 cm (08/31/23 6:20 AM) Weight 89 kg (08/30/23 1:34 AM) Oxygen Saturation [94-100 %] 98 % (08/31/23 2:35 PM) 96 % (08/31/23 12:31 PM) 94 % (08/31/23 6:20 AM) Pulse Rate [55-90 bpm] 82 bpm (08/31/23 2:35 PM) 103 bpm *H* (08/31/23 12:31 PM) 102 bpm *H* (08/31/23 6:20 AM) Body Mass Index [18.5-24.99 kg/m2] 32.69 kg/m2 *>HHI* (08/30/23 1:34 AM) Blood Pressure [90-138/55-84 mm Hg] 117/70mm Hg (08/31/23 2:35 PM) 104/49mm Hg (08/31/23 12:31 PM) 127/88mm Hg (08/31/23 6:20 AM) Respiratory Rate [16-30 br/min] 20 br/min (08/31/23 2:43 PM) 18 br/min (08/31/23 2:35 PM) 18 br/min (08/31/23 1:29 PM) Temperature [96.8-100.4 DegF] 97.2 DegF (08/31/23 2:35 PM) 97.8 DegF (08/31/23 12:31 PM) 97.3 DegF (08/31/23 6:20 AM) Mode of Delivery (Oxygen) Room air (08/31/23 2:35 PM) Room air (08/31/23 12:31 PM) Room air (08/31/23 6:20 AM) Blood pressure sites Arm, right (08/31/23 2:35 PM) Arm, right (08/31/23 12:31 PM) Arm, right (08/31/23 6:20 AM) Temperature Route Oral (08/31/23 2:35 PM) Oral (08/31/23 12:31 PM) Oral (08/31/23 6:20 AM) Dry Weight 89 kg (08/30/23 1:34 AM) Social History Social History Type Response Smoking Status Current every day jose alexandre; Tobacco user in household: Yes entered on: 05/01/14 Sex History and physical note * Jesse Brantley MD: PERFORM, MODIFY Event Display: History and Physical Hospital Authored Date: Patient: ??SIMA ROPER ? Age:??43 Years?Sex:??Female?:??1980?? Chief Complaint/Reason for Consultation ??Pt ??is coming from home. CC pancreatitis, pt states she has chronic pancreatitis. Pt last intakewas about 2-3 hours ago, which was thrown up. Pain is 02/14 History of Present Illness 43-year-old female with past medical history significant for gastritis, chronic pancreatitis, alcohol abuse disorder, chronic pain syndrome, PTSD, LISSA?? and depression ?? 08/01 - 08/07: She was admitted for acute on chronic pancreatitis with dehydration and lactic acidosis.?? She was provided with vigorous IV fluids dropping her lactate from 5.7???2.4.?? She required IV Dilaudid and was eventually transitioned to p.o. oxycodone. 08/21: She presented to the emergency room for abdominal pain and diarrhea.?? She was conservativelymanaged 08/24: She had a telehealth follow-up with her PCP.?? She continued to have diarrhea which is once again conservatively managed. 08/28: She presented to the emergency room for nausea, vomiting and intolerance of p.o. intake.?? She had multiple alcoholic drinks 2 nights prior.?Reassuringly, her diarrhea had resolved. ?? ER course: Vital signs: Normal except for tachycardia Exam: Mild distress.?? Diffuse tenderness to palpation of the abdomen without rebound ?? Workup: EKG: Sinus tachycardia Low voltage QRS T wave abnormality, consider anterolateral ischemia Abnormal ECG When compared with ECG of 16-APR-2024 11:16, Nonspecific T wave abnormality now evident in Inferior leads ?? CBC: Normal Chemistry: Positive elevated anion gap Lipase: Normal LFTs: Mild transaminitis (chronic) Lactate: 4.3???3.5 ?? Interventions performed: LR: 1 L bolus LR at 125 mL/h maintenance Metoclopramide 10 mg IV x 1 Hydromorphone 0.5 mg IV x 2 Hydromorphone 1 mg IV x 1 ?? On my evaluation at [facility]: Vital signs: Normal except for tachycardia. Patient was retching and vomiting. I requested nursing to provide her with a dose of Compazine which significantly improved her symptoms. Review of Systems Constitutional: No weight loss, fever, chills?? HEENT: No visual loss. No hearing loss, congestion, runny nose , sore throat. Skin: No rash ?? Cardiovascular: No chest discomfort. No palpitations. Respiratory: No shortness of breath, cough. Gastrointestinal: No?? blood in stool. Genitourinary: No burning micturition. No urinary frequency or incontinence. Musculoskeletal: No muscle pain, back pain, joint pain or stiffness. Endocrine: No reports of sweating. No cold or heat intolerance. No polyuria or polydipsia. Hematologic: No bleeding or bruising. Immunologic/Allergic: No itchy eyes/Itchy nose/Sneezing/Watery eyes Lymphatics: No enlarged lymph nodes. Neurologic: No headache, unilateral weakness, numbness or tingling in the extremities. No change inbowel or bladder control. Psychiatric: No depression or anxiety. Objective ? Vital Signs?? Temperature: 98.6 DegF (08/29/23 20:26:00) Temperature Route: Oral (08/29/23 20:26:00) Pulse Rate:??96 bpm??High (08/29/23 20:26:00) Respiratory Rate: 18 br/min (08/29/23 21:18:00) Systolic Blood Pressure: 127 mm Hg (08/29/23 20:26:00) Diastolic Blood Pressure: 82 mm Hg (08/29/23 20:26:00) Blood pressure sites: Arm, right (08/29/23 20:26:00) Mean Arterial Pressure: 97 mm Hg (08/29/23 20:26:00) Pulse Pressure: 45 mm Hg (08/29/23 20:26:00) Oxygen Saturation: 94 % (08/29/23 20:26:00) Mode of Delivery (Oxygen): Room air (08/29/23 20:26:00) Early Warning Score: 2 (08/29/23 21:44:10) ? Intake/Output? 08/28 16:24 08/28 07:00 08/27 07:00 08/26 07:00 ?? 08/28 22:34 08/28 22:34 08/28 06:59 08/27 06:59 Urine Count ?1 ?1 ?0 ?0 ? Physical Exam GENERAL:?? Mildly ill-appearing, no acute cardiorespiratory distress?? HEAD: Normocephalic, atraumatic. EYES: No conjunctival injection. No scleral icterus.?Nicasio conjunctiva EARS: No tenderness, no discharge. NOSE: No asymmetry. MOUTH AND THROAT: No oral thrush. Dry?? mucous membranes NECK: No JVP elevation, No masses. Range of motion full. HEART: Tachycardic with??regular rhythm, no murmurs, no clicks, no rubs , no gallops. CHEST: Symmetric with respirations. No accessory muscle use, No wheezes, crackles. ABDOMEN: Normoactive bowel sounds. ??Positive midepigastric tenderness without guarding. No increase in liver or spleen size. No masses palpable. GENITOURINARY: No CV angle tenderness. No suprapubic tenderness. No Robertson catheter in place.?? Rectal exam is deferred. MUSCULOSKELETAL: Range of motion full in all extremities , no obvious deformity , no increased warmth , no effusion?? VASCULAR: All pulses brisk and equal, Capillary refill time < 2sec LYMPHATIC: No cervical, axillary or inguinal adenopathy. Skin: Dry and thin. No evidence of cellulitis, no other major skin lesions?? NEUROLOGIC: No deficit on gross motor and sensory exam Alert and oriented to person, place, time, and situation?? Psychiatric: No delusions, hallucinations, SI or HI?? Assessment/Plan Assessment:??43-year-old female with past medical history significant for gastritis, chronic pancreatitis, alcohol abuse disorder, chronic pain syndrome, PTSD, LISSA??and depression.??She claims that she??resumed drinking alcohol??2 nights prior to admission.??She now presents for nausea, vomiting,??intolerance of p.o. intake with lactic acidosis. ?? Gastritis (K29.70):??. Chronic pancreatitis (K86.1):??. Nausea and vomiting (R11.2):??. Gastrointestinal intolerance to foods (K90.49):??. Lactic acidosis (E87.20):? Admitted to the general medical floor Provide a clear liquid diet and advance as tolerated Provide IVF supplementation while with limited po intake: LR @ 125 ml/hr Provide antiemetics: Zofran +/- Compazine Provide analgesics: Hydromorphone Provide laxatives: Docusate + senna Continue pancrealipase if able to tolerate Continue pantoprazole ?? Alcohol use disorder (F10.90):? -CIWA protocol ordered -Start with PRN Ativan based on CIWA scores - will provide MVI, Thiamine, pyridoxine and folate supplementation - discussed cessation of etoh ?? LISSA (generalized anxiety disorder) (F41.1):??. PTSD (post-traumatic stress disorder) (F43.10):??. Depression (F32.A):? Continue Abilify Continue Bupropion Continue doxepin Continue lamotrigine Continue prazosin Continue trazodone Continue lorazepam ?? Chronic low back pain (M54.50):? Continue gabapentin ?? Nicotine dependence (F17.200):? Continue nicotine patch ?? VTE Prophylaxis:? Pneumoboots ?VTE Prophylaxis Assessment:??VTE Prophylaxis Ordered ?? Discharge Planning:? Anticipate at least 2 night hospital stay The above document was completed by performing history, physical examination, reconciling multiple medications, review of laboratory and imaging All assessment and plan were discussed with the patient and requested feedback with attempts to maximize understanding for the care provided. This required approximately 75 minutes to complete. ?? Ongoing Medical Necessity:? IV supportive care ?? Code Status:? Full code ?Order Code Status:??Code Status Ordered ? Histories Allergies Allergies ?(Active and Proposed Allergies Only) ibuprofen? (Severity: Unknown severity, Onset: Unknown) acetaminophen? (Severity: Unknown severity, Onset: Unknown) Bee Stings? (Severity: Unknown severity, Onset: Unknown) Pollen? (Severity: Unknown severity, Onset: Unknown) ? Past Medical History/Problem List Active Problems(17) Abnormal uterine bleeding Alcohol dependence Alcohol use disorder Alcohol withdrawal-induced seizure Alcoholic liver disease Attempted suicide - hanging Chronic low back pain Chronic pancreatitis Cold sore Depression Endometriosis Gastritis Mass of right breast Menometrorrhagia Nicotine dependence Obese class I Sprain of ribs ? Past Surgical History D&C - Dilatation and curettage ? Social History Alcohol Details:??Use: Current. ??Frequency: 1-2 times per week. ??Type: Beer. ??Alcohol use in household: Yes. ??Previous treatment: Inpatient. Employment/School Details:??Status: Disabled. Exercise Details:??Self assessment: Fair condition. ??Regular exercise: No. ??Exercise type: Walking. Home/Environment Details:??Living situation: Home/Independent. ??Lives with: Spouse. ??Firearms in household: No. ??Substance abuse in household: Yes. ??Smoker in household: Yes. ??Major illness in household: No. Nutrition/Health Details:??Diet: Regular. ??Caffeine intake amount: rare intake of caffeine. Sexual Details:??Sexually involved in last 6 months: Yes. ??Gender identity: Identifies as female. ??Self described orientation: Straight or heterosexual. ??Preferred pronoun: She/her. ??Gender of partner(s): Male. Substance Abuse Details:??Use: Past. ??Type: Cocaine, Prescription medications. ??Frequency: 1-2 times per month. ??IV drug use: No. ??Previous treatment: Inpatient. Tobacco Details:??Current every day smoker, Tobacco user in household: Yes. Electronic Cigarette/Vaping Details:??Electronic Cigarette Use: Never. ? Family History Mother: COPD Father: Alcoholism; ; Depression Pat. Grandmother: Cancer of breast Mat. Grandmother: Emphysema; Osteoporosis ? Medications Home Medications Albuterol (Albuterol (Eqv-ProAir HFA) 90 mcg/inh inhalation aerosol)?2?puff(s)?Inhalation?Every 6 hours Aripiprazole (Abilify 10 mg oral tablet)?10?Milligram?1?tablet?By Mouth?Daily at bedtime?for 90?Days BuPROpion (buPROPion 300 mg/24 hours (XL) oral tablet, extended release)?1?tab(s)?300?Milligram?By Mouth?Every 24 hours?for 90?Days Doxepin (doxepin 50 mg oral capsule)?1?capsule?50?Milligram?By Mouth?Daily at bedtime?for 90?Days Gabapentin (gabapentin 600 mg oral tablet)?1?tab(s)?600?Milligram?By Mouth?Daily Gabapentin (gabapentin 600 mg oral tablet)?2?tab(s)?1,200?Milligram?By Mouth?Daily at bedtime Lamotrigine (lamotrigine 25 mg oral tablet)?75?Milligram?3?tablet?By Mouth?Daily at bedtime?for 90?Days Lorazepam (LORazepam 1 mg oral tablet)?1?tab(s)?1?Milligram?By Mouth?3 times a day?as needed?as needed for anxiety?for 3?Days Multivitamin (multivitamin Multiple Vitamins oral tablet)?1?tab(s)?By Mouth?Daily?for 30?Days Nicotine (nicotine 7 mg/24 hr transdermal film, extended release)?1?patch(es)?Topically?Daily?for 28?Days Pancrelipase (Creon 36,000 units oral delayed release capsule)?1?capsule?By Mouth?3 times a day Pantoprazole (pantoprazole 40 mg oral delayed release tablet)?1?tab(s)?By Mouth?Daily Prazosin (prazosin 5 mg oral capsule)?5?Milligram?1?capsule?By Mouth?Daily at bedtime?for 90?Days Trazodone (traZODone 100 mg oral tablet)?100?Milligram?1?tablet?By Mouth?Daily atbedtime?for 90?Days?TAKE 1 TABLET BY MOUTH EVERY NIGHT AT BEDTIME ? Results Recent Labs BLOOD COUNT & DIFF WBC 10.4 k/mm3 ()?? 08/29/2023 17:32 RBC 4.52 m/mm3 ()?? 08/29/2023 17:32 Hgb 13.9 Gm/dL ()?? 08/29/2023 17:32 Hct 41.8 % ()?? 08/29/2023 17:32 MCV 92.5 femtoliters ()?? 08/29/2023 17:32 MCH 30.8 pg ()?? 08/29/2023 17:32 MCHC 33.3 g/dL ()?? 08/29/2023 17:32 Platelet Count 298 k/mm3 ()?? 08/29/2023 17:32 RDW-SD 45.3 femtoliters ()?? 08/29/2023 17:32 MPV 9.2 femtoliters (Low)?? 08/29/2023 17:32 Nucleated RBC (Automated) 0.0 #/100 WBC'S ()?? 08/29/2023 17:32 Abs. NRBC 0.0 k/mm3 ()?? 08/29/2023 17:32 Abs. Neut 5.8 k/mm3 ()?? 08/29/2023 17:32 Abs. Lymph 3.8 k/mm3 (High)?? 08/29/2023 17:32 Abs. Eddy 0.8 k/mm3 ()?? 08/29/2023 17:32 Abs. Eo 0.1 k/mm3 ()?? 08/29/2023 17:32 Abs. Baso 0.0 k/mm3 ()?? 08/29/2023 17:32 Neut % 55.2 % ()?? 08/29/2023 17:32 Lymph % 36.0 % ()?? 08/29/2023 17:32 Eddy % 7.4 % ()?? 08/29/2023 17:32 Eos % 0.5 % ()?? 08/29/2023 17:32 Baso % 0.4 % ()?? 08/29/2023 17:32 Imm Gran 0.5 % ()?? 08/29/2023 17:32 Abs. Imm Gran 0.1 k/mm3 ()?? 08/29/2023 17:32 ?? CHEM GENERAL Sodium 139 mmol/L ()?? 08/29/2023 17:32 Potassium 4.1 mmol/L ()?? 08/29/2023 17:32 Chloride 98 mmol/L ()?? 08/29/2023 17:32 Bicarbonate Level 22 mmol/L ()?? 08/29/2023 17:32 Anion Gap 19 (High)?? 08/29/2023 17:32 Glucose Level 120 mg/dL (High)?? 08/29/2023 17:32 BUN 5 mg/dL (Low)?? 08/29/2023 17:32 Creatinine-Blood 0.8 mg/dL ()?? 08/29/2023 17:32 Estimated GFR Creatinine 94 ML/MIN/1.73 M2 ()?? 08/29/2023 17:32 Calcium 8.8 mg/dL ()?? 08/29/2023 17:32 Protein, Total 7.0 Gm/dL ()?? 08/29/2023 17:32 Albumin 4.2 Gm/dL ()?? 08/29/2023 17:32 AG Ratio 1.5 ()?? 08/29/2023 17:32 Alkaline Phosphatase 91 units/L ()?? 08/29/2023 17:32 Lipase 17 units/L ()?? 08/29/2023 17:32 AST (SGOT) 71 units/L (High)?? 08/29/2023 17:32 ALT (SGPT) 53 units/L (High)?? 08/29/2023 17:32 Bilirubin, Total 0.3 mg/dL ()?? 08/29/2023 17:32 Lactate 3.5 mmol/L (High)?? 08/29/2023 19:32 ?? HEME OTHER Hold Blue Top SPECIMEN DISCARDED AFTER 4 HOURS. ()?? 08/29/2023 17:32 ? EKG study * Event Display: ECG 12-Lead Authored Date: Please click on pdf link to open report * Event Display: ECG 12-Lead Authored Date: Ventricular Rate: 112 BPM Atrial Rate: 112 BPM P-R Interval: 138 ms QRS Duration: 74 ms Q-T Interval: 330 ms QTC Calculation(Bazett): 450 ms P [place]: 71 degrees R [place]: 81 degrees T [place]: 85 degrees Sinus tachycardia Low voltage QRS T wave abnormality, consider anterolateral ischemia Abnormal ECG When compared with ECG of 22-AUG-2023 11:16, Nonspecific T wave abnormality now evident in Inferior leads Confirmed by SUSANNA STATON ([id number]) on 08/30/2023 8:26:12 AM Manor: SUSANNA STATON [facility] Progress note * Elvia Pacheco RN: PERFORM, SIGN, VERIFY, MODIFY, SIGN Event Display: Progress Note Hospital Authored Date: Patient: SIMA ROPER Age: 43 years Sex: Female : 1980 Associated Diagnoses: None Author: Elvia Pacheco RN Findings Problem Related to Alteration in Comfort : Alteration in Comfort/new 08/31/2023 11:00 EDT Alteration in Comfort Related to Disease process, Other: Abdominal pain/Pancreatitis/ Goals & Outcomes: Comfort Pt will report acceptable level of comfort & pain control, Pt will state importance of adhering to pain strategy regime, Pt will demonstrate necessary skills to manage pain, Non-verbal indicators will indicate comfort/pain control Interventions Implemented: Comfort Assess pain using appropriate pain scale/tools, Assess aggravating factors & prevent them accordingly, Assess alleviating factors & promote them accordingly Goals/Interventions, Comfort Yes Comfort, Problem Start 08/30/2023 10:48 Reviewed plan with, Comfort Patient Patient Progression, Comfort Plan Initiation Comfort, Problem Ongoing Yes . Narrative/Incidental Patient alert and orientedx4 breathing spontaneously on room air, chest expansion equal, iv access patent, L/R progressing at 125mls. Abdomen soft, C/Om pain medicated as per JUL.skin warm perfused and intact. Bed locked in lowest position, call doherty within reach frequent rounding in place.Patient for possible discharge today. patient transfered via wheel chair to for continuity of discharge process report given to nurse on duty.. * Matt Richards RN: PERFORM, SIGN, VERIFY Event Display: Progress Note Hospital Authored Date: [id number] Patient: SIMA ROPER Age: 43 years Sex: Female : 1980 Associated Diagnoses: None Author: Matt Richards RN Pt alert and oriented x4. on room air breath sounds clear. Pain -10/10. PRN Morphine and Oxycodone given with positive effect. Scheduled meds given as per orders. Meds well tolerated. Safety and standard precautions maintained. Bed in low position. Call doherty within reach. Findings Problem Related to Alteration in Comfort : Alteration in Comfort/new 08/30/2023 21:00 EDT Alteration in Comfort Related to Disease process, Other: Abdominal pain/Pancreatitis/ Goals & Outcomes: Comfort Pt will report acceptable level of comfort & pain control, Pt will state importance of adhering to pain strategy regime, Pt will demonstrate necessary skills to manage pain, Non-verbal indicators will indicate comfort/pain control Interventions Implemented: Comfort Assess pain using appropriate pain scale/tools, Assess aggravating factors & prevent them accordingly, Assess alleviating factors & promote them accordingly Goals/Interventions, Comfort Yes Comfort, Problem Start 08/30/2023 10:48 Reviewed plan with, Comfort Patient Patient Progression, Comfort Plan Initiation Comfort, Problem Ongoing Yes . * Moriah Basurto MD: PERFORM Event Display: Progress Note Hospital Authored Date: [id number] Patient: ??SIMA ROPER ? Age:??43 Years?Sex:??Female?:??1980?? Subjective Acute overnight events. Patient remains hemodynamically stable. I diet was advanced today however she started to experience significant abdominal pain neck with point was entirely back to full liquid. Review of Systems Negative except as above. Social History Alcohol Details:??Use: Current. ??Frequency: 1-2 times per week. ??Type: Beer. ??Alcohol use in household: Yes. ??Previous treatment: Inpatient. Employment/School Details:??Status: Disabled. Exercise Details:??Self assessment: Fair condition. ??Regular exercise: No. ??Exercise type: Walking. Home/Environment Details:??Living situation: Home/Independent. ??Lives with: Spouse. ??Firearms in household: No. ??Substance abuse in household: Yes. ??Smoker in household: Yes. ??Major illness in household: No. Nutrition/Health Details:??Diet: Regular. ??Caffeine intake amount: rare intake of caffeine. Sexual Details:??Sexually involved in last 6 months: Yes. ??Gender identity: Identifies as female. ??Self described orientation: Straight or heterosexual. ??Preferred pronoun: She/her. ??Gender of partner(s): Male. Substance Abuse Details:??Use: Past. ??Type: Cocaine, Prescription medications. ??Frequency: 1-2 times per month. ??IV drug use: No. ??Previous treatment: Inpatient. Tobacco Details:??Current every day smoker, Tobacco user in household: Yes. Electronic Cigarette/Vaping Details:??Electronic Cigarette Use: Never. ? Family History Mother: COPD Father: Alcoholism; ; Depression Pat. Grandmother: Cancer of breast Mat. Grandmother: Emphysema; Osteoporosis ? Objective Vital Signs?? Temperature: 97.8 DegF (08/30/23 13:10:00) Temperature Route: Oral (08/30/23 13:10:00) Pulse Rate: 86 bpm (08/30/23 13:10:00) Respiratory Rate: 18 br/min (08/30/23 14:33:00) Systolic Blood Pressure: 106 mm Hg (08/30/23 13:10:00) Diastolic Blood Pressure: 59 mm Hg (08/30/23 13:10:00) Blood pressure sites: Arm, right (08/30/23 13:10:00) Mean Arterial Pressure: 75 mm Hg (08/30/23 13:10:00) Pulse Pressure: 47 mm Hg (08/30/23 13:10:00) Oxygen Saturation: 98 % (08/30/23 13:10:00) Mode of Delivery (Oxygen): Room air (08/30/23 13:10:00) Early Warning Score: 2 (08/30/23 14:38:24) ? Physical Exam Constitutional: Alert, in no acute distress?? However extremely anxious appearing Neck: Supple. No JVD. Respiratory: Clear to auscultation. No wheezing or crackles. No use of accessory muscles. Cardiovascular: S1S2 regular. No murmurs, rubs or gallops. Gastrointestinal: Abdomen soft, non-tender, non-distended. Normal bowel sounds. Extremities: No lower extremity pitting edema. No cyanosis or clubbing. Neurologic: AAOx3, Speech normal. No focal neurological deficits. _ Home Medications Albuterol (Albuterol (Eqv-ProAir HFA) 90 mcg/inh inhalation aerosol)?2?puff(s)?Inhalation?Every 6 hours Aripiprazole (Abilify 10 mg oral tablet)?10?Milligram?1?tablet?By Mouth?Daily at bedtime?for 90?Days BuPROpion (buPROPion 300 mg/24 hours (XL) oral tablet, extended release)?1?tab(s)?300?Milligram?By Mouth?Every 24 hours?for 90?Days Doxepin (doxepin 50 mg oral capsule)?1?capsule?50?Milligram?By Mouth?Daily at bedtime?for 90?Days Gabapentin (gabapentin 600 mg oral tablet)?1?tab(s)?600?Milligram?By Mouth?Daily Gabapentin (gabapentin 600 mg oral tablet)?2?tab(s)?1,200?Milligram?By Mouth?Daily at bedtime Lamotrigine (lamotrigine 25 mg oral tablet)?75?Milligram?3?tablet?By Mouth?Daily at bedtime?for 90?Days Lorazepam (LORazepam 1 mg oral tablet)?1?tab(s)?1?Milligram?By Mouth?3 times a day?as needed?as needed for anxiety?for 3?Days Multivitamin (multivitamin Multiple Vitamins oral tablet)?1?tab(s)?By Mouth?Daily?for 30?Days Nicotine (nicotine 7 mg/24 hr transdermal film, extended release)?1?patch(es)?Topically?Daily?for 28?Days Pancrelipase (Creon 36,000 units oral delayed release capsule)?1?capsule?By Mouth?3 times a day Pantoprazole (pantoprazole 40 mg oral delayed release tablet)?1?tab(s)?By Mouth?Daily Prazosin (prazosin 5 mg oral capsule)?5?Milligram?1?capsule?By Mouth?Daily at bedtime?for 90?Days Trazodone (traZODone 100 mg oral tablet)?100?Milligram?1?tablet?By Mouth?Daily atbedtime?for 90?Days?TAKE 1 TABLET BY MOUTH EVERY NIGHT AT BEDTIME ? Inpatient Medications Medications (33) Active SCHEDULED: (17) Aripiprazole 10mg Tablet (Abilify 10 mg oral tablet) ??10 mg, By Mouth, Daily at bedtime BuPROPion XL 300 mg Tablet (BuPROpion XL Tablet) ??300 mg, By Mouth, Daily Doxepin 25 mg Capsule (Doxepin Capsule) ??50 mg, By Mouth, Daily at bedtime Folic Acid 1 mg Tablet (Folic Acid Tablet) ??1 mg, By Mouth, Daily Gabapentin 300 mg Capsule (Gabapentin) ??600 mg, By Mouth, Daily Gabapentin 400 mg Capsule (Gabapentin) ??1,200 mg, By Mouth, Daily at bedtime LamoTRIGINE 25 mg Tablet (Lamictal Tablet) ??75 mg, By Mouth, Daily at bedtime Multivitamin Therapeutic / Minerals Tablet (Multivit Therapeutic/Minerals Tablet) ??1 tablet, By Mouth, Daily NaCl 0.9% Flush 3ml (NaCL 0.9% Flush) ??3 mL, IV Push, Every 8 hours Nicotine 7 mg / 24 hour Patch (Nicotine Topical) ??7 mg, Topically, Daily Pancrelipase 15,000 unit Capsule (Pancrelipase Capsule) ??30,000 units 2 capsule, By Mouth, 3 timesa day with meals Pantoprazole 40 mg EC Tablet (pantoprazole 40 mg oral delayed release tablet) ??40 mg, By Mouth, Daily Prazosin 5 mg Capsule (prazosin 5 mg oral capsule) ??5 mg, By Mouth, Daily at bedtime Pyridoxine 50 mg Tablet (Pyridoxine Tablet) ??50 mg, By Mouth, Daily Remove Patch (Remove ??Patch) ??1 each, Topically, Daily Thiamine 100 mg Tablet (Thiamine Tablet) ??100 mg, By Mouth, 2 times a day Trazodone 50 mg Tablet (Trazodone) ??100 mg, By Mouth, Daily at bedtime CONTINUOUS: (1) Lactated Ringers (1000 mL) Cont IV 1,000 mL (LR 1,000 mL) ??1,000 mL, IV Infusion, 125 mL/hr PRN: (15) Albuterol 90mcg/Inhalation Inhaler HFA (albuterol CFC free 90 mcg/inh inhalation aerosol) ??180 mcg2 puffs, Inhalation, Every 4 hours Docusate Sodium 100 mg Capsule (Docusate Sodium Capsule) ??100 mg 1 capsule, By Mouth, 2 times a day Lorazepam 1 mg Tablet (Ativan Tablet) ??1 mg, By Mouth, Every 2 hours Lorazepam 1 mg Tablet (LORazepam 1 mg oral tablet) ??1 mg, By Mouth, 3 times a day Lorazepam 2 mg Tablet (Ativan Tablet) ??2 mg, By Mouth, Every 2 hours Lorazepam 2 mg Tablet (LORazepam Tablet) ??2 mg, By Mouth, Every hour Melatonin 3 mg Tablet (Melatonin Tablet) ??3 mg, By Mouth, Daily at bedtime MorPHINE 2 mg Inj Syringe (MorPHINE Inj) ??1 mg, IV Push Slowly, Every 4 hours NaCl 0.9% Flush 3ml (NaCL 0.9% Flush) ??3 mL, IV Push, Every 8 hours Ondansetron 2mg/mL Inj (2mL Vial) (Ondansetron Inj) ??4 mg, IV Push, Every 6 hours OxyCODONE 5 mg IR Tablet (oxyCODONE 5 mg oral tablet) ??2.5 mg, By Mouth, Every 4 hours Polyethylene Glycol 17 Gm Powder (MiraLax Powder) ??17 Gm 1 pack/packet, By Mouth, Daily PROCHLORperazine 5mg/ml Inj (PROCHLORperazine Inj) ??5 mg 1 mL, IV Push, Every 6 hours Senna Tablet ??8.6 mg 1 tablet, By Mouth, 2 times a day Simethicone 80 mg Chewable Tablet (Simethicone Tablet) ??80 mg, Chew, 3 times a day ? Results Recent Labs BLOOD COUNT & DIFF WBC 6.6 k/mm3 ()?? 08/30/2023 00:14 RBC 4.01 m/mm3 (Low)?? 08/30/2023 00:14 Hgb 12.3 Gm/dL ()?? 08/30/2023 00:14 Hct 36.7 % ()?? 08/30/2023 00:14 MCV 91.5 femtoliters ()?? 08/30/2023 00:14 MCH 30.7 pg ()?? 08/30/2023 00:14 MCHC 33.5 g/dL ()?? 08/30/2023 00:14 Platelet Count 215 k/mm3 ()?? 08/30/2023 00:14 RDW-SD 45.0 femtoliters ()?? 08/30/2023 00:14 MPV 9.0 femtoliters (Low)?? 08/30/2023 00:14 Nucleated RBC (Automated) 0.0 #/100 WBC'S ()?? 08/30/2023 00:14 Abs. NRBC 0.0 k/mm3 ()?? 08/30/2023 00:14 Abs. Neut 5.8 k/mm3 ()?? 08/29/2023 17:32 Abs. Lymph 3.8 k/mm3 (High)?? 08/29/2023 17:32 Abs. Eddy 0.8 k/mm3 ()?? 08/29/2023 17:32 Abs. Eo 0.1 k/mm3 ()?? 08/29/2023 17:32 Abs. Baso 0.0 k/mm3 ()?? 08/29/2023 17:32 Neut % 55.2 % ()?? 08/29/2023 17:32 Lymph % 36.0 % ()?? 08/29/2023 17:32 Eddy % 7.4 % ()?? 08/29/2023 17:32 Eos % 0.5 % ()?? 08/29/2023 17:32 Baso % 0.4 % ()?? 08/29/2023 17:32 Imm Gran 0.5 % ()?? 08/29/2023 17:32 Abs. Imm Gran 0.1 k/mm3 ()?? 08/29/2023 17:32 ?? CHEM GENERAL Sodium 140 mmol/L ()?? 08/30/2023 00:14 Potassium 4.3 mmol/L ()?? 08/30/2023 00:14 Chloride 103 mmol/L ()?? 08/30/2023 00:14 Bicarbonate Level 22 mmol/L ()?? 08/30/2023 00:14 Anion Gap 15 ()?? 08/30/2023 00:14 Glucose Level 120 mg/dL (High)?? 08/29/2023 17:32 BUN 5 mg/dL (Low)?? 08/30/2023 00:14 Creatinine-Blood 0.8 mg/dL ()?? 08/30/2023 00:14 Estimated GFR Creatinine 98 ML/MIN/1.73 M2 ()?? 08/30/2023 00:14 Calcium 8.8 mg/dL ()?? 08/29/2023 17:32 Phosphorus 3.8 mg/dL ()?? 08/30/2023 00:14 Magnesium 1.6 mg/dL ()?? 08/30/2023 00:14 Protein, Total 7.0 Gm/dL ()?? 08/29/2023 17:32 Albumin 4.2 Gm/dL ()?? 08/29/2023 17:32 AG Ratio 1.5 ()?? 08/29/2023 17:32 Alkaline Phosphatase 91 units/L ()?? 08/29/2023 17:32 Lipase 17 units/L ()?? 08/29/2023 17:32 AST (SGOT) 70 units/L (High)?? 08/30/2023 00:14 ALT (SGPT) 45 units/L (High)?? 08/30/2023 00:14 Bilirubin, Total 0.3 mg/dL ()?? 08/29/2023 17:32 Lactate 1.7 mmol/L ()?? 08/30/2023 11:14 ?? HEME OTHER Hold Blue Top SPECIMEN DISCARDED AFTER 4 HOURS. ()?? 08/29/2023 17:32 ?? URINE OTHER Est Creatinine Clearance 79.78 mL/min ()?? 08/30/2023 03:38 ? Assessment/Plan Chief Complaint: Pt ??is coming from home. CC pancreatitis, pt states she has chronic pancreatitis.Pt last intake was about 2-3 hours ago, which was thrown up. Pain is 10/10 ?? Diagnoses Pancreatitis ??(K85.90) 1. ??Gastritis ??(K29.70) 2. ??Chronic pancreatitis ??(K86.1) 3. ??Nausea and vomiting ??(R11.2) 4. ??Gastrointestinal intolerance to foods ??(K90.49) 5. ??Lactic acidosis ??(E87.20) 6. ??Alcohol use disorder ??(F10.90) 7. ??LISSA (generalized anxiety disorder) ??(F41.1) 8. ??PTSD (post-traumatic stress disorder) ??(F43.10) 9. ??Depression ??(F32.A) 10. ??Chronic low back pain ??(M54.50) 11. ??Nicotine dependence ??(F17.200) 12. ??Other chronic pain ??(G89.29) ? 43-year-old female with past medical history significant for gastritis, chronic pancreatitis, alcohol abuse disorder, chronic pain syndrome, PTSD, LISSA??and depression.??She claims that she??resumed drinking alcohol??2 nights prior to admission.??She now presents for nausea, vomiting,??intolerance of p.o. intake with lactic acidosis. ?? Gastritis (K29.70):??. Chronic pancreatitis (K86.1):??. Nausea and vomiting (R11.2):??. Gastrointestinal intolerance to foods (K90.49):??. Lactic acidosis (E87.20):? Admitted to the general medical floor Provide a clear liquid diet and advance as tolerated Provide IVF supplementation while with limited po intake: LR @ 125 ml/hr Provide antiemetics: Zofran +/- Compazine Provide analgesics: Stopping IV Dilaudid, switching to p.o. oxycodone. +morphine Provide laxatives: Docusate + senna Continue pancrealipase if able to tolerate Continue pantoprazole Continue with full liquid diet today since patient could not be able to tolerate??regular, will switch tomorrow. ? Alcohol use disorder (F10.90):? -CIWA protocol ordered -Start with PRN Ativan based on CIWA scores - will provide MVI, Thiamine, pyridoxine and folate supplementation - discussed cessation of etoh ?? LISSA (generalized anxiety disorder) (F41.1):??. PTSD (post-traumatic stress disorder) (F43.10):??. Depression (F32.A):? Continue Abilify Continue Bupropion Continue doxepin Continue lamotrigine Continue prazosin Continue trazodone Continue lorazepam ?? Chronic low back pain (M54.50):? Continue gabapentin ?? Nicotine dependence (F17.200):? Continue nicotine patch ?? VTE Prophylaxis:? Pneumoboots ?VTE Prophylaxis Assessment:??VTE Prophylaxis Ordered ?? Discharge Planning:? Anticipate at least 2 night hospital stay The above document was completed by performing history, physical examination, reconciling multiple medications, review of laboratory and imaging All assessment and plan were discussed with the patient and requested feedback with attempts to maximize understanding for the care provided. This required approximately 75 minutes to complete. ?? Ongoing Medical Necessity:? IV supportive care ?? Code Status:? Full code ?Order Code Status:??Code Status Ordered Discharge Planning:?? Likely home once able to tolerate??regular diet Note * Maggy Miranda RN: PERFORM Event Display: Discharge/Transfer Note Hospital Authored Date: [id number] Nursing Discharge Note Entered On: 08/31/2023 16:17 EDT Performed On: 08/31/2023 16:16 EDT by Maggy Miranda RN Nursing Discharge Note 2 Discharge Time : 08/31/2023 15:40 EDT Discharge Level of Care at Discharge : Home/Long-Term/Foster Care Patient Left Unit Via : Wheelchair Patient Accompanied Off Unit with : Responsible adult DC Instructions Provided & Signed by Pt : Yes Patient Understands D/C Instructions : Yes Verbalized Understanding of D/C Plan By : Patient Patient Instructions Discharge Signed : Yes Discharge Comments : patient home with instructions and meds picked up at pharmacy, staff brought patient to pharmacy then to D/C lounge for Uber ride home Did Pt have Specialty Bed or Wound Vac : No Maggy Miranda RN - 08/31/2023 16:16 EDT * Sb BUTTERFIELD, Moriah: PERFORM Event Display: Discharge/Transfer Note Hospital Authored Date: [id number] Patient: ??SIMA ROPER ? Age:??43 Years?Sex:??Female?:??1980?? Patient Information Discharge Location: S1 Primary Care Physician: Domingo GALLEGOS, Anai Levi Admit Date/Time: 08/29/23 20:28 Discharge Disposition Discharge Disposition: Home: No Services Discharge Diagnosis Gastritis (K29.70) Chronic pancreatitis (K86.1) Nausea and vomiting (R11.2) Gastrointestinal intolerance to foods (K90.49) Lactic acidosis (E87.20) Alcohol use disorder (F10.90) LISSA (generalized anxiety disorder) (F41.1) PTSD (post-traumatic stress disorder) (F43.10) Depression (F32.A) Chronic low back pain (M54.50) Nicotine dependence (F17.200) Other chronic pain (G89.29) Pancreatitis (K85.90) _ Discharge Medications Albuterol (Albuterol (Eqv-ProAir HFA) 90 mcg/inh inhalation aerosol)?2?puff(s)?Inhalation?Every 6 hours Aripiprazole (Abilify 10 mg oral tablet)?10?Milligram?1?tablet?By Mouth?Daily at bedtime?for 90?Days BuPROpion (buPROPion 300 mg/24 hours (XL) oral tablet, extended release)?1?tab(s)?300?Milligram?By Mouth?Every 24 hours?for 90?Days Doxepin (doxepin 50 mg oral capsule)?1?capsule?50?Milligram?By Mouth?Daily at bedtime?for 90?Days Folic Acid (folic acid 1 mg oral tablet)?1?Milligram?By Mouth?Daily?for 30?Days Gabapentin (gabapentin 600 mg oral tablet)?1?tab(s)?600?Milligram?By Mouth?Daily Gabapentin (gabapentin 600 mg oral tablet)?2?tab(s)?1,200?Milligram?By Mouth?Daily at bedtime Lamotrigine (lamotrigine 25 mg oral tablet)?75?Milligram?3?tablet?By Mouth?Daily at bedtime?for 90?Days Lorazepam (LORazepam 1 mg oral tablet)?1?tab(s)?1?Milligram?By Mouth?3 times a day?as needed?as needed for anxiety?for 3?Days Multivitamin (multivitamin Multiple Vitamins oral tablet)?1?tab(s)?By Mouth?Daily?for 30?Days Nicotine (nicotine 7 mg/24 hr transdermal film, extended release)?1?patch(es)?Topically?Daily?for 28?Days Ondansetron (ondansetron 4 mg oral tablet)?1?tab(s)?4?Milligram?By Mouth?Every 8 hours?for 3?Days Oxycodone (oxyCODONE 5 mg oral tablet)?2.5?Milligram?By Mouth?Every 4 hours?as needed?for 3?Days?Pain , Moderate Pancrelipase (Creon 36,000 units oral delayed release capsule)?1?capsule?By Mouth?3 times a day Pantoprazole (pantoprazole 40 mg oral delayed release tablet)?1?tab(s)?By Mouth?Daily Prazosin (prazosin 5 mg oral capsule)?5?Milligram?1?capsule?By Mouth?Daily at bedtime?for 90?Days Thiamine (thiamine 100 mg oral tablet)?100?Milligram?By Mouth?2 times a day?for 30?Days Trazodone (traZODone 100 mg oral tablet)?100?Milligram?1?tablet?By Mouth?Daily atbedtime?for 90?Days?TAKE 1 TABLET BY MOUTH EVERY NIGHT AT BEDTIME ? PCP Follow-Up/Heads-Up - Repeat blood work - Follow-up on discharge. - Please review list of medications. Future Appointments Monday 4:30 PM EDT ?? With: Megan Lopez NP Where: [facility] [place] [address]- Status: Pending Monday 1:40 PM EDT ?? With: Markus Castañeda NP Where: [facility] [address] [place] [address]- Status: Pending Hospital Course ??43-year-old female with past medical history significant for gastritis, chronic pancreatitis, alcohol abuse disorder, chronic pain syndrome, PTSD, LISSA??and depression.??She claims that she??resumeddrinking alcohol??2 nights prior to admission.??She now presents for nausea, vomiting,??intoleranceof p.o. intake with lactic acidosis.?? Lactic acidosis resolved after aggressive IV hydration. ??She was able to advance diet??from??clear liquid to full liquid with improvement in pain. Given she was listed baseline, decision was made to discharge her. Details of hospitalization course as below. ? Gastritis (K29.70):??. Chronic pancreatitis (K86.1):??. Nausea and vomiting (R11.2):??. Gastrointestinal intolerance to foods (K90.49):??. Lactic acidosis (E87.20):? Admitted to the general medical floor Provide a clear liquid diet and advance as tolerated Provide IVF supplementation while with limited po intake: LR @ 125 ml/hr Provide antiemetics: Zofran +/- Compazine Provide analgesics: Stopping IV Dilaudid, switching to p.o. oxycodone. +morphine Provide laxatives: Docusate + senna Continue pancrealipase if able to tolerate Continue pantoprazole Continue with full liquid diet today ? Alcohol use disorder (F10.90):? -CIWA protocol ordered -Start with PRN Ativan based on CIWA scores - will provide MVI, Thiamine, pyridoxine and folate supplementation - discussed cessation of etoh, she is not withdrawing. ?? LISSA (generalized anxiety disorder) (F41.1):??. PTSD (post-traumatic stress disorder) (F43.10):??. Depression (F32.A):? Continue Abilify Continue Bupropion Continue doxepin Continue lamotrigine Continue prazosin Continue trazodone Continue lorazepam ?? Chronic low back pain (M54.50):? Continue gabapentin ?? Nicotine dependence (F17.200):? Continue nicotine patch ?? VTE Prophylaxis:? Pneumoboots ?VTE Prophylaxis Assessment:??VTE Prophylaxis Ordered Objective . Physical Exam Constitutional: Alert, in no acute distress. Neck: Supple. No JVD. Respiratory: Clear to auscultation. No wheezing or crackles. No use of accessory muscles. Cardiovascular: S1S2 regular. No murmurs, rubs or gallops. Gastrointestinal: Abdomen soft, non-tender, non-distended. Normal bowel sounds. Extremities: No lower extremity pitting edema. No cyanosis or clubbing. Neurologic: AAOx3, Speech normal. No focal neurological deficits. Pending Results HCG Urine ordered on 08/29/2023 Urinalysis w/hold for Urine Culture ordered on 08/29/2023 Follow-Up Appointments Added Follow Up ?Time Frame ?Comments Domingo [employer] WORKER, Anai Levi Patient Instructions ??? Please follow-up with your primary care physician for evaluation of medications repeating set of blood work within 1 week's time. ??? Presented emergency department experience any of the following symptoms including but not limited to worsening abdominal pain, inability to tolerate oral diet,?? New fevers or any other issues. ?Advance your diet slowly over the course of next week to soft then regular. ?? Medication changes: Thiamine, folic acid Oxycodone??to be used as needed for pain Ondansetron to be used as needed for nausea/vomiting. Post Discharge Care Discharge ?08/31/23 10:12:00 EDT Home Health Face to Face ^[facility] Results Discharge Labs BLOOD COUNT & DIFF WBC 6.6 k/mm3 ()?? 08/30/2023 00:14 RBC 4.01 m/mm3 (Low)?? 08/30/2023 00:14 Hgb 12.3 Gm/dL ()?? 08/30/2023 00:14 Hct 36.7 % ()?? 08/30/2023 00:14 MCV 91.5 femtoliters ()?? 08/30/2023 00:14 MCH 30.7 pg ()?? 08/30/2023 00:14 MCHC 33.5 g/dL ()?? 08/30/2023 00:14 Platelet Count 215 k/mm3 ()?? 08/30/2023 00:14 RDW-SD 45.0 femtoliters ()?? 08/30/2023 00:14 MPV 9.0 femtoliters (Low)?? 08/30/2023 00:14 Nucleated RBC (Automated) 0.0 #/100 WBC'S ()?? 08/30/2023 00:14 Abs. NRBC 0.0 k/mm3 ()?? 08/30/2023 00:14 Abs. Neut 5.8 k/mm3 ()?? 08/29/2023 17:32 Abs. Lymph 3.8 k/mm3 (High)?? 08/29/2023 17:32 Abs. Eddy 0.8 k/mm3 ()?? 08/29/2023 17:32 Abs. Eo 0.1 k/mm3 ()?? 08/29/2023 17:32 Abs. Baso 0.0 k/mm3 ()?? 08/29/2023 17:32 Neut % 55.2 % ()?? 08/29/2023 17:32 Lymph % 36.0 % ()?? 08/29/2023 17:32 Eddy % 7.4 % ()?? 08/29/2023 17:32 Eos % 0.5 % ()?? 08/29/2023 17:32 Baso % 0.4 % ()?? 08/29/2023 17:32 Imm Gran 0.5 % ()?? 08/29/2023 17:32 Abs. Imm Gran 0.1 k/mm3 ()?? 08/29/2023 17:32 ?? CHEM GENERAL Sodium 140 mmol/L ()?? 08/30/2023 00:14 Potassium 4.3 mmol/L ()?? 08/30/2023 00:14 Chloride 103 mmol/L ()?? 08/30/2023 00:14 Bicarbonate Level 22 mmol/L ()?? 08/30/2023 00:14 Anion Gap 15 ()?? 08/30/2023 00:14 Glucose Level 120 mg/dL (High)?? 08/29/2023 17:32 BUN 5 mg/dL (Low)?? 08/30/2023 00:14 Creatinine-Blood 0.8 mg/dL ()?? 08/30/2023 00:14 Estimated GFR Creatinine 98 ML/MIN/1.73 M2 ()?? 08/30/2023 00:14 Calcium 8.8 mg/dL ()?? 08/29/2023 17:32 Phosphorus 3.8 mg/dL ()?? 08/30/2023 00:14 Magnesium 1.6 mg/dL ()?? 08/30/2023 00:14 Protein, Total 7.0 Gm/dL ()?? 08/29/2023 17:32 Albumin 4.2 Gm/dL ()?? 08/29/2023 17:32 AG Ratio 1.5 ()?? 08/29/2023 17:32 Alkaline Phosphatase 91 units/L ()?? 08/29/2023 17:32 Lipase 17 units/L ()?? 08/29/2023 17:32 AST (SGOT) 70 units/L (High)?? 08/30/2023 00:14 ALT (SGPT) 45 units/L (High)?? 08/30/2023 00:14 Bilirubin, Total 0.3 mg/dL ()?? 08/29/2023 17:32 Lactate 1.7 mmol/L ()?? 08/30/2023 11:14 ? HEME OTHER Hold Blue Top SPECIMEN DISCARDED AFTER 4 HOURS. ()?? 08/29/2023 17:32 ? URINE OTHER Est Creatinine Clearance 79.78 mL/min ()?? 08/30/2023 03:38 ? 29??minutes spent on discharge * Ruben KEY, Maggy Zaldivar: PERFORM Event Display: Patient Education/Instruction Authored Date: [id number] Inpatient Adult Discharge Instructions. [address] [address] Name: SIMA ROPER : 1980?? Visit: 08/29/2023 20:28?? Current Date: 08/31/2023 14:27 ?? Account: [id number]?? Inpatient Adult Discharge Instructions We would like to thank you for allowing us to assist you with your healthcare needs. The following includes patient education materials and information regarding your injury/illness. Our entire staffstrives to provide an excellent experience for our patients and their families. PLEASE ENSURE YOU FOLLOW-UP PER THE INSTRUCTIONS BELOW! ?? YOUR OPINION IS IMPORTANT TO US! Please complete the survey you may receive by mail or email. Your feedback will be used to make improvements to the healthcare experiences of our patients and their families. Surveys are administered by [employer] ?? If further treatment with your primary care physician or another doctor is recommended, it is important for you to keep the appointment. Call your primary care physician or return to the Emergency Department immediately if your condition worsens, fails to improve, or new symptoms develop. If you need to find a doctor, you can call [facility] Link for a referral at [phone] or toll free at [phone] or log in to [email or web address].. ?? [facility], in keeping with [facility] guidance, no longer requires face masks for staff, patientsor visitors in most situations. Similiar to time spent indoors at other locations, there is the chance that you were exposed to repiratory viruses during your time with us (such as flu or COVID-19). If you develop symptoms concerning for a viral respiratory infection, please seek testing (and treatment if indicated) from your medical provider or home test kit. ?? You can view and manage your care through the patient portal or by using a health care rommel of your choosing. [employer] is a website that allows you to securely view your medical information including your hospital discharge summary, office visit summaries, medications and follow-up visits. You can also request appointments, renew medications, and request access to your medical information using a health care rommel of your choosing, or just ask a question. You can enroll at [email or web address] or register during your next office visit. You have been discharged from [facility], Patient Care Unit: S3??. If you have any questions regarding these instructions, including results of studies pending, afteryou leave, please call us and we will be happy to assist you 28/11. [facility] Your Care Team Attending Physician Moriah Basurto MD?? Consulting Providers Moriah Basurto MD?? Discharging Providers Moriah Basurto MD Reason for Your Visit Pt ??is coming from home. CC pancreatitis, pt states she has chronic pancreatitis. Pt last intake was about 2-3 hours ago, which was thrown up. Pain is 10/10?? Your Diagnosis Gastritis Chronic pancreatitis Nausea and vomiting Gastrointestinal intolerance to foods Lactic acidosis Alcohol use disorder LISSA (generalized anxiety disorder) PTSD (post-traumatic stress disorder) Depression Chronic low back pain Nicotine dependence Other chronic pain Abdominal pain Tests Performed Below is a partial list of the tests performed during your hospitalization. You may have had other tests and procedures not included in this list. Please discuss all test results with your provider. ALT AST BUN CBC CBC w/ Differential Comprehensive Metabolic Panel Creatinine Electrolytes Hold Blue Top Tube Lactate Level Lactic Acid Level Lipase Magnesium Level Phosphorus Level HCG Urine?? Urinalysis w/hold for Urine Culture?? Primary Care Provider Domingo GALLEGOS, Anai Levi? Advance Directive Health Care Proxy on File Yes - Health Care Proxy Discharge Vitals Temperature: 97.8 DegF Height: 165 cm Pulse Rate:??103 bpm??High Weight: 89 kg Respiratory Rate: 18 br/min Body Mass Index:??32.69 kg/m2??Critical Systolic Blood Pressure: 104 mm Hg Body surface area: 2.02 Diastolic Blood Pressure:??49 mm Hg??Low ?? Oxygen Saturation: 96 % ?? Studies Pending All studies ordered during this hospital stay have been completed unless listed below. Please discuss all pending results with your provider listed above in these instructions. ?? HCG Urine?? Urinalysis w/hold for Urine Culture?? What to do next Instructions From Your Doctor ??? Please follow-up with your primary care physician for evaluation of medications repeating set of blood work within 1 week's time. ??? Presented emergency department experience any of the following symptoms including but not limited to worsening abdominal pain, inability to tolerate oral diet,?? New fevers or any other issues. ?Advance your diet slowly over the course of next week to soft then regular. ?? Medication changes: Thiamine, folic acid Oxycodone??to be used as needed for pain Ondansetron to be used as needed for nausea/vomiting. ?? Orders? 08/31/23 10:12:00 EDT?? Scheduled Follow-Up Appointments Monday 4:30 PM EDT ?? With: Megan Lopez NP Where: [facility] [address] [place] [address]- Status: Pending Monday 1:40 PM EDT ?? With: Markus Castañeda NP Where: [facility] [address] [place] [id number]- Status: Pending You Need to Schedule the Following Appointments Follow Up with??Domingo GALLEGOS, Anai Levi Where: ?? Discharge Medications SIMA ROPER :1980 Visit Date:08/29/2023 Medications: Please continue your medications until treatment is completed or stopped by your provider. Medications not listed below should be discontinued. Discuss any questions related to medications with your provider. What How Much When Instructions Next Dose New Folic Acid (folic acid 1 mg oral tablet) 1 Milligram Oral Daily Duration: 30 Days Pickup at [facility] 3 next dose due tomorrow??08/31 at 9am New Ondansetron (ondansetron 4 mg oral tablet) 1 tab(s) Oral Every 8 hours Duration: 3 Days Pickup at [facility] 3 take as directed for nausea New Oxycodone (oxyCODONE 5 mg oral tablet) 2.5 Milligram Oral Every 4 hours as needed for Pain , Moderate Duration: 3 Days Pickup at [facility] 3 take as directed for pain New Thiamine (thiamine 100 mg oral tablet) 100 Milligram Oral Twice a day Duration: 30 Days Pickup at [facility] 3 dose due tonight 08/30 at 9pm Unchanged Albuterol (Albuterol (Eqv-ProAir HFA) 90 mcg/ inh inhalation aerosol) 2 puff(s) Inhalation Every 6 hours take as directed Unchanged Aripiprazole (Abilify 10 mg oral tablet) 1 tab(s) Oral Daily at Bedtime Duration: 90 Days dose due tonight 08/30 at 9pm Unchanged BuPROpion (buPROPion 300 mg/ 24 hours (XL) oral tablet, extended release) 1 tab(s) Oral Every 24 hours Duration: 90 Days dose due tomorrow 08/31 at 9am Unchanged Doxepin (doxepin 50 mg oral capsule) 1 capsule Oral Daily at Bedtime Duration: 90 Days dose due tonight 08/30 at 9pm Unchanged Gabapentin (gabapentin 600 mg oral tablet) 2 tab(s) Oral Daily at Bedtime dose due tonight 08/30 at 9pm Unchanged Gabapentin (gabapentin 600 mg oral tablet) 1 tab(s) Oral Daily dose due tomorrow 08/31 at 9am Unchanged Lamotrigine (lamotrigine 25 mg oral tablet) 3 tab(s) Oral Daily at Bedtime Duration: 90 Days dose due tonight 08/30 at 9pm Unchanged Lorazepam (LORazepam 1 mg oral tablet) 1 tab(s) Oral 3 times a day as needed for as needed for anxiety Duration: 3 Days take as directed Unchanged Multivitamin (multivitamin Multiple Vitamins oral tablet) 1 tab(s) Oral Daily Duration: 30 Days dose due tomorrow 08/31 at 9am Unchanged Nicotine (nicotine 7 mg/ 24 hr transdermal film, extended release) 1 patch(es) Topically Daily Duration: 28 Days dose due tomorrow 08/31 at 9am Unchanged Pancrelipase (Creon 36,000 units oral delayed release capsule) 1 capsule Oral 3 times a day dose due tonight 08/30 at 9pm Unchanged Pantoprazole (pantoprazole 40 mg oral delayed release tablet) 1 tab(s) Oral Daily dose due tomorrow 08/31 at 9am Unchanged Prazosin (prazosin 5 mg oral capsule) 1 capsule Oral Daily at Bedtime Duration: 90 Days dose due tonight 08/30 at 9pm Unchanged Trazodone (traZODone 100 mg oral tablet) 1 tab(s) Oral Daily at Bedtime Duration: 90 Days TAKE 1 TABLET BY MOUTH EVERY NIGHT AT BEDTIME ?? dose due tonight 08/30 at 9pm Pharm[facility] Information [facility]: [address] [place], [place] [id number] [phone] ?? What How Much When Comments Stop Taking Lidocaine Topical (lidocaine 4% topical cream) See instructions apply 2 x per day to the R forearm, as needed for pain; not to exceed 3 applications in 24 hours ?? Stop Taking Melatonin (melatonin 3 mg oral tablet) 1 tab(s) Oral Daily at Bedtime Stop Taking MethylPREDNISolone (Medrol Dosepak 4 mg oral tablet) 1 pack/packet Oral Daily Duration: 6 Days as directed on package labeling ?? Prescription Given During Visit Folic Acid (folic acid 1 mg oral tablet) - 1 mg, By Mouth, Daily, # 30 each, 0 Refills, [facility], [address] [place] [phone]?? Ondansetron (ondansetron 4 mg oral tablet) - 1 tablet = 4 mg, By Mouth, Every 8 hours, # 9 tablet, 0 Refills, [facility] [address] [address] [phone]?? Oxycodone (oxyCODONE 5 mg oral tablet) - 2.5 mg, By Mouth, Every 4 hours, # 9 tablet, 0 Refills, [facility] 3, [address] [place] [address] [phone]?? Thiamine (thiamine 100 mg oral tablet) - 100 mg, By Mouth, 2 times a day, # 60 tablet, 0 Refills, [facility] [address] [address] [phone]?? Laboratory Results Below is a partial list of the most recent Laboratory test results done prior to this discharge. You may have had other tests and procedures not included in this list. Please discuss all test resultswith your provider. Est Creatinine Clearance - 79.78 mL/min (08/30/2023) ALT (08/30/2023) ???ALT (SGPT) - 45 units/L AST (08/30/2023) ???AST (SGOT) - 70 units/L BUN (08/30/2023) ???BUN - 5 mg/dL CBC (08/30/2023) ???WBC - 6.6 k/mm3???RBC - 4.01 m/mm3???Hgb - 12.3 Gm/dL???Hct - 36.7 %???MCV - 91.5 femtoliters???MCH - 30.7 pg???MCHC - 33.5 g/dL???Platelet Count - 215 k/mm3???RDW-SD - 45.0 femtoliters???MPV - 9.0 femtoliters???Nucleated RBC (Automated) - 0.0 #/100 WBC'S???Abs. NRBC - 0.0 k/mm3 CBC w/ Differential (08/29/2023) ???WBC - 10.4 k/mm3???RBC - 4.52 m/mm3???Hgb - 13.9 Gm/dL???Hct - 41.8 %???MCV - 92.5 femtoliters???MCH - 30.8 pg???MCHC - 33.3 g/dL???Platelet Count - 298 k/mm3???RDW-SD - 45.3 femtoliters???MPV - 9.2 femtoliters???Nucleated RBC (Automated) - 0.0 #/100 WBC'S???Abs. NRBC - 0.0 k/mm3???Abs. Neut - 5.8 k/mm3???Abs. Lymph - 3.8 k/mm3???Abs. Eddy - 0.8 k/mm3???Abs. Eo - 0.1 k/mm3???Abs. Baso - 0.0 k/mm3???Neut % - 55.2 %???Lymph % - 36.0 %???Eddy % - 7.4 %???Eos % - 0.5 %???Baso % - 0.4 %???Imm Gran - 0.5 %???Abs. Imm Gran - 0.1 k/mm3 Comprehensive Metabolic Panel (08/29/2023) ???Sodium - 139 mmol/L???Potassium - 4.1 mmol/L???Chloride - 98 mmol/L???Bicarbonate Level - 22 mmol/L???Anion Gap - 19???Glucose Level - 120 mg/dL???BUN - 5 mg/dL???Creatinine-Blood - 0.8 mg/dL???Estimated GFR Creatinine - 94 ML/MIN/1.73 M2???Calcium - 8.8 mg/dL???Protein, Total - 7.0 Gm/dL???Albumin - 4.2 Gm/dL???AG Ratio - 1.5???Alkaline Phosphatase - 91 units/L???AST (SGOT) - 71 units/L???ALT(SGPT) - 53 units/L???Bilirubin, Total - 0.3 mg/dL Creatinine (08/30/2023) ???Creatinine-Blood - 0.8 mg/dL???Estimated GFR Creatinine - 98 ML/MIN/1.73 M2 Electrolytes (08/30/2023) ???Sodium - 140 mmol/L???Potassium - 4.3 mmol/L???Chloride - 103 mmol/L???Bicarbonate Level - 22 mmol/L???Anion Gap - 15 Hold Blue Top Tube (08/29/2023) ???Hold Blue Top - SPECIMEN DISCARDED AFTER 4 HOURS. Lactate Level (08/29/2023) ???Lactate - 3.5 mmol/L Lactic Acid Level (08/30/2023) ???Lactate - 1.7 mmol/L Lipase (08/29/2023) ???Lipase - 17 units/L Magnesium Level (08/30/2023) ???Magnesium - 1.6 mg/dL Phosphorus Level (08/30/2023) ???Phosphorus - 3.8 mg/dL Allergies (NKA means No Known Allergies) Bee Stings Pollen acetaminophen ibuprofen Problems Active Problems??(17) Abnormal uterine bleeding?? Alcohol dependence?? Alcohol use disorder?? Alcohol withdrawal-induced seizure?? Alcoholic liver disease?? Attempted suicide - hanging?? Chronic low back pain?? Chronic pancreatitis?? Cold sore?? Depression?? Endometriosis?? Gastritis?? Mass of right breast?? Menometrorrhagia?? Nicotine dependence?? Obese class I?? Sprain of ribs?? Education Materials Below is the list of Educational Leaflet Providered with your Discharge Instructions. Valuables and Belongings I fully understand and agree that [facility] accepts no responsibility for all my personal property including clothing, toilet articles, radios, jewelry, dentures, hearing aids, rings, money, or any other property that is in my possession or is brought to me after admission. I understand certain valuables may be placed in a hospital safe for a short period of time. I understand that the hospital is not liable for loss or damage due to accident, fire, or other natural occurrence while said property is in the safe. I accept full responsibility for any personal property that I keep with me, and will not hold the hospital responsible in case of loss or disappearance. I acknowledge that i have been encouraged to send valuables and belongings home. ?? Review of Valuable and Belonging List: With patient Date for Pt to Sign Valuables/Belongings: 08/31/23 14:24:00 ?? Other Discharge Information ? Case Management Discharge Plan?? Discharge Plan?? Discharge Rx Program: Discharge Prescription Program Discharge Rx Program: Discharge Prescription Program Discharge Rx Program: Discharge Prescription Program ?? Pulmonary Rehab Status?? Pulmonary Rehab Discharge Status?? Respiratory Rate: 18 br/min ? Common Emergency Awareness Tips IS IT A STROKE? Act FAST and Check for these signs: FACE Does the face look uneven? ARM Does one arm drift down? SPEECH Does their speech sound strange? TIME Call at any sign of stroke ?? Heart Attack Signs Chest discomfort: Most heart attacks involve discomfort in the center of the chest and lasts more than a few minutes, or goes away and comes back. It can feel like uncomfortable pressure, squeezing, fullness or pain. Discomfort in upper body: Symptoms can include pain or discomfort in one or both arms, back, neck, jaw or stomach. Shortness of breath: With or without discomfort. Other signs: Breaking out in a cold sweat, nausea, or lightheaded. Remember, MINUTES DO MATTER. If you experience any of these heart attack warning signs, call to get immediate medical attention! ?? Smoking can increase your chances of developing chronic health problems and can cause harmful effects to other family members in your house. If you smoke, you are strongly encouraged to quit. Please call [facility] Guest of a Guest Link at [phone] or [phone] ([phone]) or log in to [email or web address] for referrals to smoking cessation programs. ?? 720 Suicide & Crisis Lifeline is available 28/11 if you or someone you know needs to find a reason to keep living. By calling 294 you'll be connected to a skilled, trained counselor at a crisis center in your area. INPATIENT DISCHARGE INSTRUCTIONS SIGNATURE PAGE SIMA ROPER Location:[facility] Registration Date and Time:08/29/2023 20:28 EDT Primary Care Physician: Anai Lane NP, Attending Physician: Moriah Basurto MD, Og SIMA ROPER, have received the above patient education materials/instructions and have verbalized understanding. If ambulance or transport services are being used I further acknowledge being given a choice of service. ?? If you need to contact me, please call me at this number: . Patient/Wood Room Supervisor Name: Patient/Wood Room Supervisor Signature: Relationship to Patient: Witness Name/Signature: Date: * Maggy Miranda RN: PERFORM Event Display: Patient Education Leaflets Authored Date: [id number] Alcohol Abuse ?? [id number] Alcohol Abuse Alcoholic drinks harm you when you have too many of them. No set number of drinks means too much. Drinking that affects your life or your health is called alcohol abuse. Alcohol abuse can hurt your relationships with others. You may lose friends, a spouse, or even your job. You may be abusing alcohol if any of the following are true for you: ??? Duties at home or with child development professor suffer because of drinking. ??? Duties at work or in school suffer because of drinking. ??? You have missed work or school because of drinking. ??? You use alcohol while driving or using machinery. ??? You have legal problems such as arrests because of drinking. ??? You keep drinking even though it causes serious problems in your life. Health problems Alcohol abuse causes many health problems.??Sometimes this can happen after only drinking a ???little. ??The effects depend on how much you drink at one time and how often you drink. The effects also depend on how long you drink. For example, months, years, or decades.??Alcohol affects all parts of your body Brain Alcohol affects the central nervous system. It can damage parts of the brain that control your balance and gait, memory, thinking, and emotions. It can cause: ??? Memory loss ??? Blackouts ??? Depression ??? Agitation ??? Sleep problems ??? Seizures These changes may be nursing home (permanent). Heart and blood vessels Alcohol can damage heart muscle (cardiomyopathy). This can lead to: ??? Trouble breathing ??? Irregular heartbeat ??? Atrial fibrillation ??? Leg swelling ??? Heart failure Alcohol also makes the blood vessels stiff. This causes high blood pressure. All of these problems raise your risk of having a heart attack or stroke. Liver Alcohol causes fat to build up in the liver. This affects how the liver works. Alcohol also raises the risk for hepatitis. It can cause: ??? Belly (abdominal) pain ??? Belly swelling ??? Loss of appetite ??? Yellowed eyes or skin (jaundice) ??? Bleeding problems ??? Cirrhosis This can make it harder for you to fight off infections. The liver changes keep it from removing toxins in your blood that can cause brain disease (encephalopathy). This condition cause: ??? Confusion ??? Changed level of consciousness ??? Personality changes ??? Memory loss ??? Seizures, coma, and The liver changes can also cause the veins in your esophagus and stomach to become thin and swollenwith blood (varices). This can cause bleeding and vomiting of blood. Pancreas Alcohol can cause swelling (inflammation) of the pancreas (pancreatitis). This can cause belly pain, fever, and diabetes. Immune system Alcohol weakens your immune system. This makes it harder for you to fight infections and colds. It also makes it more likely for you to get pneumonia and tuberculosis. Cancer Alcohol raises the risk for several types of cancer. These include cancer of the mouth, esophagus, pharynx, larynx, liver, and breast. Sexual function Alcohol can lead to sexual problems. ?? Home care These guidelines will help you deal with alcohol abuse: ??? Admit you have a problem with alcohol. ??? Ask for help from your healthcare provider. Also ask for help from trusted family members or close friends. ??? Get help from people trained in dealing with alcohol abuse. This may be one-on-one counseling or group therapy. Or it may be an alcohol treatment program. ??? Join a self-help group for alcohol abuse such as Alcoholics Anonymous. ??? Stay away from people who abuse alcohol or tempt you to drink. ?? Follow-up care Follow up with your healthcare provider, or as advised. Contact these groups to get help: ??? Alcoholics Anonymous (AA) at www.aa.org. Or check the phone book for meetings near you. ??? National Alcohol and Substance Abuse Information Center (NASAIC) at www.addictioncareVisual Pro 360 or 771-544-6550 ??? National [place] on Alcoholism and Drug Dependence (NCADD) at www.ncadd.org or 125-HRZ-OYMG (088-876-6787) ?? Call 911 Call 911 if any of these occur: ??? Trouble breathing or slow, irregular breathing ??? Chest pain ??? Sudden weakness on one side of your body or sudden trouble speaking ??? Heavy bleeding or vomiting blood ??? Very drowsy or trouble awakening ??? Fainting or loss of consciousness ??? Rapid heart rate ??? Seizure ?? When to seek medical care Call your healthcare provider right away if any of these occur:? Confusion ??? Seeing, hearing, or feeling things that aren???t there (hallucinations) ??? Pain in your upper belly that gets worse ??? Vomiting that continues, vomiting with blood, or black or tarry stools ??? Severe shakiness ?? Last Reviewed Date: 2021 ?? 7971-6211 [employer]. All rights reserved. This information is not intended as a substitute for professional medical care. Always follow your healthcare professional's instructions. ?? * Ruben KEY, Maggy Zaldivar: PERFORM Event Display: Patient Education Leaflets Authored Date: [id number] Understanding Lactic Acidosis ?? 42963 Understanding Lactic Acidosis Lactic acid is a natural chemical in your body. It fuels your muscles during intense activity like running and jumping. Normally, your body can keep the right balance of this substance. But when the amount of lactic acid exceeds what???s normal, your liver and kidneys can???t get rid of it. This iscalled lactic acidosis. It???s a serious health problem that can be fatal. Several things can trigger lactic acidosis: ??? Not enough oxygen supply to your tissues ??? Infections such as HIV/AIDs or sepsis ??? Conditions such as diabetes, kidney and liver problems, heart failure, specific types of cancer, alcohol usedisorder, and seizures ??? Certain medicines such as metformin and acetaminophen, or illegal drugs like cocaine ??? Too much or very intense exercise beyond your usual limits Symptoms ??? Feeling tired ??? Rapid breathing ??? Nausea and vomiting, poor appetite ??? Belly (abdominal) pain ??? Muscle pain or cramps ??? Confusion ??? Low blood pressure ??? Clammy skin ??? Less urine production ?? Diagnosis Lactic acidosis can make you very ill. It???s often diagnosed after you???ve gone to the hospital. A healthcare provider will give you a physical exam and review your health history. This includes listing any drugs and medicines you take and any toxins you may have been exposed to. You may also be asked about recent physical activity. You will have a blood test to check the lactic acid level in your blood. ?? Risk factors People who are very ill or have life-threatening complications of infection (such as sepsis) are atrisk for lactic acidosis. Certain medicines can result in lactic acidosis. In many cases, this is caused by taking too much of the medicine. It can also occur as a complication of underlying disorders such as liver or kidney failure. If you have had lactic acidosis or are at risk from underlying conditions, your healthcare provider may need to make changes to your medicines. Medicines that may trigger lactic acidosis include: ??? Certain medicines to treat AIDS ??? Certain medicines for diabetes such as metformin ??? Certain medicines to treat asthma or COPD ??? Certain medicines to treat tuberculosis (isoniazid) ??? Acetaminophen (pain reliever) ??? Certain pain-killing medicines (anesthetics) ??? Salicylates such as aspirin and aspirin-containing medicines ??? Valproic acid. This is used to treat epilepsy, migraines, and certain mental health disorders. ??? Sulfasalazine. This is used to treat certain arthritis conditions. ??? Cocaine Review your medicines and any drugs you take with your healthcare provider. ?? Treatment Lactic acidosis is very treatable once identified. Your healthcare provider will want to: ??? Find any underlying cause. If lactic acidosis is from an infection or medicine, they will treatthe infection or change medicine to help resolve the problem. ??? Give you oxygen to help heal the tissues and organs ??? Give you oral or IV (intravenous) fluids to help get rid of excess lactic acid and increase blood pressure. In some cases, your provider may prescribe medicines that can lower lactic acid levels in your blood. ?? Preventing lactic acidosis Follow these measures to prevent lactic acidosis: ??? Follow your healthcare provider???s advice. This includes taking any medicines exactly as prescribed. ??? Do physical activity. Regular, moderateexercise can help your body better process lactic acid. But don???t overdo it. ??? Stay well hydrated. Drink plenty of water to help get rid of excess lactic acid. ??? Eat a balanced diet. Choose fruits, vegetables, whole grains, and lean meats for overall good health. ?? Last Reviewed Date: 2023 ?? [employer]. All rights reserved. This information is not intended as a substitute for professional medical care. Always follow your healthcare professional's instructions. ?? Patient Care team information Care Team Personnel Name: Gregoria Daley RN Position: [facility] RN Member Role: Primary Care Nurse Name: Elisa Lamar RN Position: [facility] RN Member Role: Primary Care Nurse Name: Zo Segal RN Position: [facility] AMB Nurse Member Role: Primary Care Nurse Name: Aziza Kuhn RN Position: [facility] RN Member Role: Primary Care Nurse Name: David Maldonado RN Position: [facility] RN Member Role: Primary Care Nurse Name: Antonia Mtz RN Position: [facility] RN Member Role: Primary Care Nurse Name: Carmina Fuentes RN Position: [facility] RN Member Role: Primary Care Nurse Name: Katelynn Moss RN Position: [facility] RN Member Role: Primary Care Nurse Name: Milla Emmanuel RN Position: [facility] RN Member Role: Primary Care Nurse Name: Carol Min MA Position: [facility] RN Member Role: Primary Care Nurse Name: Katt Gustafson Position: [facility] RN Member Role: Primary Care Nurse Name: Ashely Pacheco Position: [facility] RN Member Role: Primary Care Nurse Name: Elvia Pacheco RN Position: [facility] RN Member Role: Primary Care Nurse Name: Miri Espitia RN Position: [facility] AMB Nurse Member Role: Primary Care Nurse Name: Maksim Hunt III, RN Position: [facility] RN Member Role: Primary Care Nurse Name: Elisa Fields RN Position: [facility] RN Member Role: Primary Care Nurse Name: Anai Lane NP Position: [facility] PCO Associate Professional Member Role: PCP Address: Address: [address] [place] [address] Name: Matt Richards RN Position: [facility] RN Member Role: Primary Care Nurse Name: Aron Mcginnis RN Position: [facility] SN RN Member Role: Primary Care Nurse Name: Natalia Plata RN Position: [facility] RN Member Role: Primary Care Nurse Name: Kacy Barnhart RN Position: [facility] RN Member Role: Primary Care Nurse Name: Guerline Ramirez RN Position: [facility] Onco RN Member Role: Primary Care Nurse Name: Vandana Muniz RN Position: [facility] RN Member Role: Primary Care Nurse Name: Ashlyn Cordova RN Position: [facility] Onco RN Member Role: Primary Care Nurse Name: Jennifer Ignacio RN Position: [facility] RN Member Role: Primary Care Nurse Care Team Related Persons Name: KORY NGO Address: [address] [address] Name: TEVIN WILL Address: home [address] [place] [address] Name: ALEX WILL Address: home [address] [place] [address] Name: ALEX ROPER Address: home [address] [place] [address]
--- OUTSIDE RECORDS SUMMARY | 2023-09-06 15:43 | XMS_ITS | Continuity of Care Document ---
Author Organization [facility] Address [address] [place] [address]- Care Team Providers Care Chief Warden Name Role Phone Helena GALLEGOS, Marissa Hernandez Primary Care Physician [phone] Encounter [facility] Date(s): 04/18/22 - 05/18/22 [facility] [address] [place] [address]- [place] Allergies, Adverse Reactions, Alerts Substance Reaction Severity [...] 03/15/22 11:53:00 EST, Route to Pharmacy Electronically, [facility] #[id number], 165, cm, 02/23/22 23:48:00 EDT, Height, 83, kg, 02/23/22 0:48:00 E... Start Date: 03/15/22 Stop Date: 07/13/22 Status: Ordered acamprosate 333 mg oral delayed release tablet 2 tablet = 666 mg, By Mouth, 3 times a day, # 180 tablet, 0 Refills, Maintenance, 04/19/22 12:37:00EST, CR Tablet, [facility], Partial fill upon patient request if the prescription is for a schedule II opioid drug., 165, cm, 04/19/22 11... Start Date: 04/19/22 Stop Date: 05/19/22 Status: Ordered Creon 36,000 units oral delayed release capsule 1 capsule, By Mouth, 3 times a day, # 90 capsule, 0 Refills, Maintenance, 05/06/22 14:15:00 EST, [facility] #[id number], Partial fill upon patient request if the prescription is for a schedule II opioid drug., 1 capsule By Mouth 3 times a day, 16... Start Date: 05/06/22 Status: Ordered doxepin 50 mg oral capsule 1 capsule = 50 mg, By Mouth, Daily at bedtime, # 30 capsule, 3 Refills, Maintenance, 03/15/22 11:53:00 EST, Capsule, [facility] #[id number], 165, cm, 02/23/22 23:48:00 EDT, Height, 83, kg, 02/23/22 0:48:00 EDT, Dry Weight Start Date: 03/15/22 Stop Date: 07/13/22 Status: Ordered fluticasone 50 mcg/inh nasal spray See Instructions, SHAKE LIQUID AND USE 1 SPRAY IN EACH NOSTRIL TWICE DAILY, # 15.8 mL, 3 Refills, 03/23/21 16:18:00 [facility][id number], SHAKE LIQUID AND USE 1 SPRAY IN EACH NOSTRIL TWICE DAILY, 164, cm, 03/23/21 15:58:00 EST, Height, 86.... Start Date: 03/23/21 Status: Ordered gabapentin 600 mg oral tablet See Instructions, 1 tablet in the morning and 2 tablets at bedtime, # 90 tablet, 3 Refills, Maintenance, 03/15/22 11:52:00 EST, Tablet, [facility] #[id number], 165, cm, 02/23/22 23:48:00 EDT, Height, 83, kg, 02/23/22 0:48:00 EDT, Dry Weight Start Date: 03/15/22 Status: Ordered loperamide 2 mg oral capsule 2 mg, 1, capsule, By Mouth, Every 3 hours, PRN, # 30 capsule, Refills 0, Tot. Refills 0, Acute 04/19/23 11:43:00 EST, Loose Stool, 04/19/22 11:43:00 EST, Route to Pharmacy Electronically, [facility], Partial fill upon patient request [...] tablet, 0 Refills, Maintenance, 04/19/22 13:13:00 EST, [facility] 3, Partial fill upon patient request if the prescription is for a schedule II opioid drug., 165, cm, 04/19/22 11:15:00 EST,... Start Date: 04/19/22 Stop Date: 04/26/22 Status: Ordered morphine 15 mg/8 to 12 hr oral tablet, extended release 1 tablet = 15 mg, By Mouth, Every 12 hours, # 6 tablet, 0 Refills, Maintenance, 04/30/22 16:54:00 EST, [facility] #[id number], Partial fill upon patient request if the prescription is for a schedule II opioid drug., 165, cm, 04/19/22 11:15:00 EST... Start Date: 04/30/22 Stop Date: 05/03/22 Status: Ordered multivitamin Multiple Vitamins oral tablet 1 tablet, By Mouth, Daily, # 30 tablet, 1 Refills, Maintenance, 10/01/19 11:23:00 EDT, Tablet, [facility]-, 1 tablet By Mouth Daily,x30 days, 165.1, cm, 10/01/19 8:37:00 EDT, Height, 80.1, kg, 09/19/19 16:30:00 EDT, Dry Weight Start Date: 10/01/19 Stop Date: 11/30/19 Status: Ordered Narcan 4 mg/0.1 mL nasal spray = 4 mg, Nares, Both, Once, # 2 each, 0 Refills, Soft Stop, 04/19/22 12:16:00 EST, [facility], Partial fill upon patient request [...] Maintenance,03/15/22 11:52:00 EST, Route to Pharmacy Electronically, [facility] #[id number], 165, cm, 02/23/22 23:48:00 EDT, Height, 83, kg, 02/23/22 0:48:00... Start Date: 03/15/22 Stop Date: 07/13/22 Status: Ordered traMADol 50 mg oral tablet 1 tablet = 50 mg, By Mouth, Every 8 hours, PRN as needed for pain, # 30 tablet, 0 Refills, Acute 05/19/22 14:37:00 EST, 05/11/22 14:36:00 EST, Tablet, [facility] #[id number], Partial fill upon patient request if the prescription is for a schedule... Start Date: 05/11/22 Stop Date: 05/19/22 Status: Ordered traZODone 100 mg oral tablet TAKE 1 TABLET BY MOUTH EVERY NIGHT AT BEDTIME Start Date: 04/14/22 Status: Ordered Zoloft 100 mg oral tablet 2 tablet = 200 mg, By Mouth, Daily, # 60 tablet, 1 Refills, Maintenance, 03/15/22 11:52:00 EST, Tablet, [facility] #[id number], 165, cm, 02/23/22 23:48:00 EDT, Height, 83, [...] Team Personnel Name: Marissa Malik [facility] Professional Member Role: PCP Address: Address: [address] [place] [address] [place], [place] [address] Name: Elisa Lamar RN Position: [facility] RN Member Role: Primary Care Nurse Name: Zo Segal RN Position: [facility] PCO RN Member Role: Primary Care Nurse Name: Antonia Mtz RN Position: [facility] RN Member Role: Primary Care Nurse Name: Tiffany Ugalde RN Position: [facility] RN Member Role: Primary Care Nurse Name: Katelynn Moss RN Position: [facility] RN Member Role: Primary Care Nurse Name: Milla Emmanuel RN Position: [facility] Nurse Member Role: Primary Care Nurse Name: Carol Cordova Position: [facility] RN Member Role: Primary Care Nurse Name: Katt Gustafson Position: [facility] RN Member Role: Primary Care Nurse Name: Ashely Pacheco Position: [facility] RN Member Role: Primary Care Nurse Name: Miri Espitia RN Position: [facility] Nurse Member Role: Primary Care Nurse Name: Maksim Hunt III, RN Position: [facility] RN Member Role: Primary Care Nurse Name: Elisa Fields RN Position: [facility] RN Member Role: Primary Care Nurse Name: Aron Mcginnis RN Position: [facility] SN RN Member Role: Primary Care [...] Name: KORY NGO Address: home [address] [address] Name: TEVIN WILL Address: [address] [place] [address] Name: ALEX WILL Address: [address] [place] [address] Name: ALEX ROPER Address: home [address] [place] [address]
--- OUTSIDE RECORDS SUMMARY | 2023-09-06 15:43 | XMS_ITS | Continuity of Care Document ---
Author Organization [facility] Address [address] [place] [address]- Care Team Providers Care Lug Breaker And Wire Puller Name Role Phone Marissa Malik NP Primary Care Physician Encounter [facility] Date(s): 02/11/22 - 03/13/22 [facility] [address] [place], [place] [address] Allergies, Adverse Reactions, Alerts Substance Reaction Severity Status ibuprofen Active acetaminophen Active Bee Stings Active Pollen Active Immunizations Given and Recorded Vaccine Date Status Refusal Reason influenza virus vaccine, inactivated 02/12/20 [facility] [...] 12/10/21 11:45:00 EDT, Route to Pharmacy Electronically, [facility] #[id number], 164, cm, 03/23/21 15:58:00 EST, Height, 86.5, kg, 04/22/20 21:53:0... Start Date: 12/10/21 Stop Date: 04/09/22 Status: Ordered albuterol 90 mcg/inh inhalation powder 1-2 puffs, Inhalation, Every 4 hours, PRN Wheezing/Shortness of Breath, # 1 each, 0 Refills, Maintenance, 04/06/21 16:30:00 EST, Powder, [facility] #[id number], Partial fill upon patient requestif the prescription is for a schedule II opioid elijah... Start Date: 04/06/21 Status: Ordered Ativan 1 mg oral tablet 1.5 tablet = 1.5 mg, By Mouth, 2 times a day, for 30 days, # 90 tablet, 3 Refills, Hard Stop 04/09/22 11:46:00 EST, 12/10/21 11:46:00 EDT, Tablet, [facility] #[id number], 164, cm, 03/23/21 15:58:00 EST, Height, 86.5, kg, 04/22/20 21:53:00 EST, Dr... Start Date: 12/10/21 Stop Date: 04/09/22 Status: Ordered Creon 12,000 units oral delayed release capsule 2 capsule, By Mouth, 3 times a day, # 180 capsule, 6 Refills, Maintenance, 01/07/20 15:10:00 EDT, [facility] #[id number], 165, cm, 11/05/19 9:49:00 EDT, Height, 81.7, kg, 10/06/19 11:25:00 EDT, Dry Weight Start Date: 01/07/20 Status: Ordered doxepin 50 mg oral capsule 1 capsule = 50 mg, By Mouth, Daily at bedtime, # 30 capsule, 3 Refills, Maintenance, 12/10/21 11:45:00 EDT, Capsule, [facility] #[id number], 164, cm, 03/23/21 15:58:00 EST, Height, 86.5, kg, 04/22/20 21:53:00 EST, Dry Weight Start Date: 12/10/21 Stop Date: 04/09/22 Status: Ordered EPINEPHrine 0.1 mg injectable kit = 0.1 mg, Intramuscular, Once, PRN Other, # 1 each, 0 Refills, Soft Stop, 11/29/18 8:35:13 EDT Start Date: 11/29/18 Status: Ordered fluticasone 50 mcg/inh nasal spray See Instructions, SHAKE LIQUID AND USE 1 SPRAY IN EACH NOSTRIL TWICE DAILY, # 15.8 mL, 3 Refills, 03/23/21 16:18:00 EST, [facility] #[id number], SHAKE LIQUID AND USE 1 SPRAY IN EACH NOSTRIL TWICE DAILY, 164, cm, 03/23/21 15:58:00 EST, Height, 86.... Start Date: 03/23/21 Status: Ordered gabapentin 600 mg oral tablet See Instructions, 1 tablet in the morning and 2 tablets at bedtime, # 90 tablet, 3 Refills, Maintenance, 12/10/21 11:46:00 EDT, Tablet, [facility] #[id number], 164, cm, 03/23/21 15:58:00 EST, Height, 86.5, kg, 04/22/20 21:53:00 EST, Dry Weight Start Date: 12/10/21 Status: Ordered multivitamin Multiple Vitamins oral tablet 1 tablet, By Mouth, Daily, # 30 tablet, 1 Refills, Maintenance, 10/01/19 11:23:00 EDT, Tablet, [facility]-[id number], 1 tablet By Mouth Daily,x30 days, 165.1, [...] EST, Dry Weight Start Date: 03/23/21 Status: Ordered prazosin 5 mg oral capsule 5 mg, 1, capsule, By Mouth, Daily at bedtime, # 30 capsule, Refills 3, Tot. Refills 3, Maintenance,12/10/21 11:46:00 EDT, Route to Pharmacy Electronically, [facility] #[id number], 164, cm, 03/23/21 15:58:00 EST, Height, 86.5, kg, 04/22/20 21:53:... Start Date: 12/10/21 Stop Date: 04/09/22 Status: Ordered traMADol 50 mg oral tablet 1 tablet = 50 mg, By Mouth, 3 times a day, PRN Pain , Severe, nex refill to be 50 mg BID, # 90 tablet, 0 Refills, Maintenance, 03/25/21 8:59:00 EST, Tablet, [facility] #[id number], 164, cm, 03/23/21 15:58:00 EST, Height, 86.5, kg, 04/22/20 21:53:... Start Date: 03/25/21 Status: Ordered traZODone 100 mg oral tablet 100 mg, 1, tablet, By Mouth, Daily at bedtime, # 30 tablet, Refills 3, Tot. Refills 3, Maintenance,12/10/21 11:47:00 EDT, Route to Pharmacy Electronically, [facility] #[id number], 164, cm, 03/23/21 15:58:00 EST, Height, 86.5, kg, 04/22/20 21:53:... Start Date: 12/10/21 Stop Date: 04/09/22 Status: Ordered Zoloft 100 mg oral tablet 2 tablet = 200 mg, By Mouth, Daily, # 60 tablet, 1 Refills, Maintenance, 12/10/21 11:46:00 EDT, Tablet, [facility] #[id number], 164, cm, 03/23/21 15:58:00 EST, Height, 86.5, [...] on: 05/01/14 Sex Patient Care team information Personnel Name: Marissa Malik NP Address: Address: [address] [place] [address] Primary Care [facility], [place] [address]
--- OUTSIDE RECORDS SUMMARY | 2023-09-06 15:43 | XMS_ITS | Continuity of Care Document ---
Author Organization [facility] [place] Address [address] [place] [address]- Care Team Providers Care Grain Weigher Name Role Phone Marissa Malik NP Primary Care Physician Encounter [facility] Date(s): 11/11/22 - 12/11/22 [facility] [place] [address] [place], [place] [address] [...] 11/15/22 14:23:00 EDT, Route to Pharmacy Electronically, [facility] #[id number], 165, cm, 11/10/22 10:56:00 EDT, Height, 79, kg, 11/10/22 10:56:00... Start Date: 11/15/22 Stop Date: 03/15/23 Status: Ordered acamprosate 333 mg oral delayed release tablet 2 tablet = 666 mg, By Mouth, 3 times a day, # 180 tablet, 0 Refills, Maintenance, 04/19/22 12:37:00EST, CR Tablet, [facility], Partial fill upon patient request if the prescription is for a schedule II opioid drug., 165, cm, 04/19/22 11... Start Date: 04/19/22 Stop Date: 05/19/22 Status: Ordered busPIRone 15 mg oral tablet 1 tablet = 15 mg, By Mouth, 3 times a day, # 90 tablet, 3 Refills, Maintenance, 11/15/22 14:23:00 EDT, Tablet, [facility] #[id number], Partial fill upon patient request if the prescription is for a schedule II opioid drug., 165, cm, 11/10/22 10:5... Start Date: 11/15/22 Stop Date: 03/15/23 Status: Ordered Creon 36,000 units oral delayed release capsule 1 capsule, By Mouth, 3 times a day, # 90 capsule, 3 Refills, Maintenance, 06/08/22 9:09:00 EST, [facility] #[id number], Partial fill upon patient request if the prescription is for a schedule IIopioid drug., 1 capsule By Mouth 3 times a day, 165... Start Date: 06/08/22 Status: Ordered doxepin 50 mg oral capsule 1 capsule = 50 mg, By Mouth, Daily at bedtime, # 30 capsule, 3 Refills, Maintenance, 11/15/22 14:23:00 EDT, Capsule, [facility] #[id number], 165, cm, 11/10/22 10:56:00 EDT, Height, 79, kg, 11/10/22 10:56:00 EDT, Dry Weight Start Date: 11/15/22 Stop Date: 03/15/23 Status: Ordered gabapentin 600 mg oral tablet See Instructions, 1 tablet in the morning and 2 tablets at bedtime, # 90 tablet, 3 Refills, Maintenance, 11/15/22 14:24:00 EDT, Tablet, [facility] #[id number], 165, cm, 11/10/22 10:56:00 EDT, Height, 79, kg, 11/10/22 10:56:00 EDT, Dry Weight Start Date: 11/15/22 Status: Ordered LORazepam 1 mg oral tablet 1 tablet = 1 mg, By Mouth, 3 times a day, PRN as needed for anxiety, # 90 tablet, 3 Refills, Maintenance, 11/15/22 14:24:00 EDT, Tablet, [facility] #[id number], Partial fill upon patient requestif the prescription is for a schedule II opioid elijah... Start Date: 11/15/22 Stop Date: 03/15/23 Status: Ordered multivitamin Multiple Vitamins oral tablet 1 tablet, By Mouth, Daily, # 30 tablet, 1 Refills, Maintenance, 10/01/19 11:23:00 EDT, Tablet, [facility], 1 tablet By Mouth Daily,x30 days, [...] Maintenance,11/15/22 14:24:00 EDT, Route to Pharmacy Electronically, [facility] #[id number], 165, cm, 11/10/22 10:56:00 EDT, Height, 79, kg, 11/10/22 10:56:00... Start Date: 11/15/22 Stop Date: 02/13/23 Status: Ordered traZODone 100 mg oral tablet 100 mg, 1, tablet, By Mouth, Daily at bedtime, TAKE 1 TABLET BY MOUTH EVERY NIGHT AT BEDTIME, # 30 tablet, Refills 3, Tot. Refills 3, Maintenance, 11/15/22 14:24:00 EDT, Route to Pharmacy Electronically, [facility] #[id number], Partial fill upon... Start Date: 11/15/22 Stop Date: 03/15/23 Status: Ordered valACYclovir 500 mg oral tablet 500 mg, 1, tablet, By Mouth, 2 times a day, # 6 tablet, Refills 1, Tot. Refills 1, Maintenance, 11/10/22 11:16:00 EDT, Route to Pharmacy Electronically, [facility] #[id number], Partial fill uponpatient request if the prescription [...] Team Personnel Name: Marissa Malik NP Position: [facility] PCO Associate Professional Member Role: PCP Address: Address: [address] [place] [address] [place] [address]- Name: Elisa Lamar RN Position: [facility] RN Member Role: Primary Care Nurse Name: Zo Segal RN Position: [facility] AMB Nurse Member Role: Primary Care Nurse Name: Antonia Mtz RN Position: [facility] RN Member Role: Primary Care Nurse Name: Milla Emmanuel RN Position: [facility] SN RN Member Role: Primary Care Nurse Name: Carol Min [place] Position: [facility] RN Member Role: Primary Care Nurse Name: Katt Gusatfson Position: [facility] RN Member Role: Primary Care Nurse Name: Ashely Pacheco Position: [facility] RN Member Role: Primary Care Nurse Name: Miri Espitia RN Position: [facility] AMB Nurse Member Role: Primary Care Nurse Name: Maksim Hunt III, RN Position: [facility] RN Member Role: Primary Care Nurse Name: Elisa Fields RN Position: [facility] RN Member Role: Primary Care Nurse Name: Aron Mcginnis RN Position: [facility] SN RN Member Role: Primary Care Nurse Name: Natalia Plata RN Position: [facility] RN Member Role: Primary Care Nurse Name: Kacy Barnhart RN Position: [facility] RN Member Role: Primary Care Nurse Name: Guerline Ramirez RN Position: [facility] RN Member Role: Primary Care Nurse Name: Ashlyn Cordova RN Position: [facility] Onco RN Member Role: Primary Care Nurse Name: Jennifer Ignacio RN Position: [facility] RN Member Role: Primary Care Nurse Care Team Related Persons Name: TATIANNA NGOOg Address: [address] [address] Name: TEVIN WILL Address: [address] [place] [address] Name: ALEX WILL Address: [address] [place] [address] Name: ALEX ROPER Address: home [address] [place] [address]
--- OUTSIDE RECORDS SUMMARY | 2023-09-06 15:43 | XMS_ITS | Continuity of Care Document ---
Author Organization [facility] Address [address] [place] [address]- Care Team Providers Care Model Artists' Name Role Phone Helena GALLEGOS, Marissa Hernandez Primary Care Physician Encounter [facility] Date(s): 06/14/22 - 07/14/22 [facility] [address], [place] [address] Allergies, Adverse Reactions, Alerts Substance [...] 06/10/22 14:19:00 EST, Route to Pharmacy Electronically, [facility] #[id number], 165, cm, 05/25/22 14:24:00 EST, Height, 80, kg, 04/14/22 3:03:00 E... Start Date: 06/10/22 Stop Date: 10/08/22 Status: Ordered acamprosate 333 mg oral delayed release tablet 2 tablet = 666 mg, By Mouth, 3 times a day, # 180 tablet, 0 Refills, Maintenance, 04/19/22 12:37:00EST, CR Tablet, [facility], Partial fill upon patient request if the prescription is for a schedule II opioid drug., 165, cm, 04/19/22 11... Start Date: 04/19/22 Stop Date: 05/19/22 Status: Ordered busPIRone 15 mg oral tablet 1 tablet = 15 mg, By Mouth, 3 times a day, # 90 tablet, 3 Refills, Maintenance, 06/10/22 14:24:00 EST, Tablet, [facility] #[id number], Partial fill upon patient request if the prescription is for a schedule II opioid drug., 165, cm, 05/25/22 14:2... Start Date: 06/10/22 Stop Date: 10/08/22 Status: Ordered Creon 36,000 units oral delayed release capsule 1 capsule, By Mouth, 3 times a day, # 90 capsule, 3 Refills, Maintenance, 06/08/22 9:09:00 EST, [facility] #[id number], Partial fill upon patient request if the prescription is for a schedule IIopioid drug., 1 capsule By Mouth 3 times a day, 165... Start Date: 06/08/22 Status: Ordered doxepin 50 mg oral capsule 1 capsule = 50 mg, By Mouth, Daily at bedtime, # 30 capsule, 3 Refills, Maintenance, 06/10/22 14:20:00 EST, Capsule, [facility] #[id number], 165, cm, 05/25/22 14:24:00 EST, Height, 80, kg, 04/14/22 3:03:00 EST, Dry Weight Start Date: 06/10/22 Stop Date: 10/08/22 Status: Ordered fluticasone 50 mcg/inh nasal spray See Instructions, SHAKE LIQUID AND USE 1 SPRAY IN EACH NOSTRIL TWICE DAILY, # 15.8 mL, 3 Refills, 03/23/21 16:18:00 EST, [facility] #[id number], SHAKE LIQUID AND USE 1 SPRAY IN EACH NOSTRIL TWICE DAILY, 164, cm, 03/23/21 15:58:00 EST, Height, 86.... Start Date: 03/23/21 Status: Ordered gabapentin 600 mg oral tablet See Instructions, 1 tablet in the morning and 2 tablets at bedtime, # 90 tablet, 3 Refills, Maintenance, 06/10/22 14:20:00 EST, Tablet, [facility] #[id number], 165, cm, 05/25/22 14:24:00 EST, Height, 80, kg, 04/14/22 3:03:00 EST, Dry Weight Start Date: 06/10/22 Status: Ordered loperamide 2 mg oral capsule 2 mg, 1, capsule, By Mouth, Every 3 hours, PRN, # 30 capsule, Refills 0, Tot. Refills 0, Acute 04/19/23 11:43:00 EST, Loose Stool, 04/19/22 11:43:00 EST, Route to Pharmacy Electronically, [facility], Partial fill upon patient request if... Start Date: 04/19/22 Stop Date: 04/19/23 Status: Ordered LORazepam 1 mg oral tablet 1 tablet = 1 mg, By Mouth, 3 times a day, PRN as needed for anxiety, # 90 tablet, 3 Refills, Maintenance, 06/10/22 14:21:00 EST, Tablet, [facility] #[id number], Partial fill upon patient requestif the prescription is for a schedule II opioid elijah... Start Date: 06/10/22 Stop Date: 10/08/22 Status: Ordered multivitamin Multiple Vitamins oral tablet 1 tablet, By Mouth, Daily, # 30 tablet, 1 Refills, Maintenance, 10/01/19 11:23:00 EDT, Tablet, [facility], 1 tablet By Mouth Daily,x30 days, 165.1, cm, 10/01/19 8:37:00 EDT, Height, 80.1, kg, 09/19/19 16:30:00 EDT, Dry Weight Start Date: 10/01/19 Stop Date: 11/30/19 Status: Ordered Narcan 4 mg/0.1 mL nasal spray = 4 mg, Nares, Both, Once, # 2 each, 0 Refills, Soft Stop, 04/19/22 12:16:00 EST, [facility], Partial fill upon patient [...] Maintenance,06/10/22 14:21:00 EST, Route to Pharmacy Electronically, [facility] #[id number], 165, cm, 05/25/22 14:24:00 EST, Height, 80, kg, 04/14/22 3:03:00... Start Date: 06/10/22 Stop Date: 10/08/22 Status: Ordered traMADol 50 mg oral tablet 1 tablet = 50 mg, By Mouth, Every 8 hours, 30 each, TAKE 1 TABLET BY MOUTH EVERY 8 HOURS NEEDED FOR FOR PAIN, # 30 tablet, 2 Refills, Maintenance, 06/14/22 15:23:00 EST, Tablet, [facility] #[id number], Partial fill upon patient request if the... Start Date: 06/14/22 Status: Ordered traZODone 100 mg oral tablet 100 mg, 1, tablet, By Mouth, Daily at bedtime, TAKE 1 TABLET BY MOUTH EVERY NIGHT AT BEDTIME, # 30 tablet, Refills 3, Tot. Refills 3, Maintenance, 06/10/22 14:22:00 EST, Route to Pharmacy Electronically, [facility] #[id number], Partial fill upon... Start Date: 06/10/22 Stop [...] Team Personnel Name: Marissa Malik NP Position: [facility] PCO Associate Professional Member Role: PCP Address: Address: [address] [place] [id number] Name: Elisa Lamar RN Position: [facility] RN Member Role: Primary Care Nurse Name: Zo Segal RN [facility] RN Member Role: Primary Care Nurse Name: Antonia Mtz RN Position: [facility] RN Member Role: Primary Care Nurse Name: Tiffany Ugalde RN Position: [facility] RN Member Role: Primary Care Nurse Name: Katelynn Moss RN Position: [facility] RN Member Role: Primary Care Nurse Name: Milla Emmanuel RN Position: [facility] RN Member Role: Primary Care Nurse Name: Carol Cordova Position: [facility] RN Member Role: Primary Care Nurse Name: Katt Gustafson Position: [facility] RN Member Role: Primary Care Nurse Name: Ashely Pacheco Position: [facility] RN Member Role: Primary Care Nurse Name: Miri Espitia RN Position: [facility] AMB Nurse Member Role: Primary Care Nurse Name: Maksim Hunt III, RN Position: [facility] RN Member Role: Primary Care Nurse Name: Elisa Fields RN Position: [facility] RN Member Role: Primary Care Nurse Name: Aron Mcginnis RN Position: [facility] ED RN W/OE and Tasks Member Role: Primary Care Nurse Name: Natalia Plata RN Position: [facility] RN Member Role: Primary Care Nurse Name: Kacy Barnhart RN Position: [facility] RN Member Role: Primary Care Nurse Name: Guerline Ramirez RN Position: [facility] RN Member Role: Primary Care Nurse Name: Ashlyn Cordova RN Position: [facility] Onco RN Member Role: Primary Care Nurse Name: Jennifer Ignacio RN Position: [facility] RN Member Role: Primary Care Nurse Care Team Related Persons Name: KORY NGO Address: home [address] [address] Name: TEVIN WILL Address: home [address] [place] [address] Name: ALEX WILL Address: home [address] [place] [address] Name: ALEX ROPER Address: home [address] [place] [address]
--- OUTSIDE RECORDS SUMMARY | 2023-09-06 15:43 | XMS_ITS | Continuity of Care Document ---
Author Organization [facility] Address [address] [place] [address]- Care Team Providers Care Mechanical Detailer Name Role Phone Marissa Malik NP Primary Care Physician [phone] Encounter [facility] Date(s): 04/24/23 - 05/24/23 [facility] [address] [place], [place] [address] Allergies, Adverse Reactions, Alerts Substance Reaction [...] 02/03/23 13:42:00 EDT, Route to Pharmacy Electronically, [facility] #[id number], 166, cm, 12/16/22 17:39:00 EDT, Height, 77, kg, 12/12/22 16:21:00... Start Date: 02/03/23 Stop Date: 08/02/23 Status: Ordered Albuterol (Eqv-ProAir HFA) 90 mcg/inh inhalation aerosol 2 puffs, Inhalation, Every 6 hours, # 8.5 Gm, 0 Refills, Maintenance, 02/17/23 18:07:00 EDT, [facility] #[id number], Partial fill upon patient request if the prescription is for a schedule II opioid drug., 2 puffs Inhalation Every 6 hours, 166, c... Start Date: 02/17/23 Status: Ordered ARIPiprazole 15 mg oral tablet 15 mg, 1, tablet, By Mouth, Daily, Refills 0, Maintenance, 04/13/23 16:15:00 EST, Partial fill uponpatient request if the prescription is for a schedule II opioid drug. Start Date: 04/13/23 Status: Ordered busPIRone 15 mg oral tablet 1 tablet = 15 mg, By Mouth, 3 times a day, # 270 tablet, 1 Refills, Maintenance, 02/03/23 13:43:00 EDT, Tablet, [facility] #[id number], Partial fill upon patient request if the prescription is for a schedule II opioid drug., 166, cm, 12/16/22 17:... Start Date: 02/03/23 Stop Date: 08/02/23 Status: Ordered Creon 36,000 units oral delayed release capsule 1 capsule, By Mouth, 3 times a day, # 90 capsule, 3 Refills, Maintenance, 06/08/22 9:09:00 EST, [facility] #[id number], Partial fill upon patient request if the prescription is for a schedule IIopioid drug., 1 capsule By Mouth 3 times a day, 165... Start Date: 06/08/22 Status: Ordered doxepin 50 mg oral capsule 1 capsule = 50 mg, By Mouth, Daily at bedtime, # 90 capsule, 1 Refills, Maintenance, 02/03/23 13:43:00 EDT, Capsule, [facility] #[id number], 166, cm, 12/16/22 17:39:00 EDT, Height, 77, kg, 12/12/22 16:21:00 EDT, Dry Weight Start Date: 02/03/23 Stop Date: 08/02/23 Status: Ordered gabapentin 600 mg oral tablet See Instructions, 1 tablet in the morning and 2 tablets at bedtime, # 270 tablet, 1 Refills, Maintenance, 02/03/23 13:43:00 EDT, Tablet, [facility] #[id number], 90 day supply, 166, cm, 12/16/22 17:39:00 EDT, Height, 77, kg, 12/12/22 16:21:00 EDT,... Start Date: 02/03/23 Status: Ordered hydrOXYzine hydrochloride 25 mg oral tablet 1 tablet = 25 mg, By Mouth, 4 times a day, 0 Refills, Maintenance, 04/13/23 16:13:00 EST, Partial fill upon patient request if the prescription is for a schedule II opioid drug. Start Date: 04/13/23 Status: Ordered lamotrigine 25 mg oral tablet 75 mg, 3, tablet, By Mouth, Daily at bedtime, # 270 tablet, Refills 1, Tot. Refills 1, Maintenance,02/03/23 13:43:00 EDT, Route to Pharmacy Electronically, [facility] #[id number], Partial fill upon patient request if the prescription is for a sc... Start Date: 02/03/23 Stop Date: 08/02/23 Status: Ordered LORazepam 1 mg oral tablet 1 tablet = 1 mg, By Mouth, 2 times a day, PRN as needed for anxiety, # 60 tablet, 1 Refills, Maintenance, 04/28/23 13:31:00 EST, Tablet, [facility] #[id number], Partial fill upon patient requestif the prescription is for a schedule II opioid elijah... Start Date: 04/28/23 Stop Date: 06/27/23 Status: Ordered LORazepam 1 mg oral tablet 1 tablet = 1 mg, By Mouth, 2 times a day, 0 Refills, Maintenance, 04/13/23 16:13:00 EST, Tablet, Partial fill upon patient request if the prescription is for a schedule II opioid drug. Start Date: 04/13/23 Status: Ordered melatonin 3 mg oral tablet 1 tablet = 3 mg, By Mouth, Daily at bedtime, 0 Refills, Maintenance, 04/13/23 16:14:00 EST, Partialfill upon patient request if the prescription is for a schedule II opioid drug. Start Date: 04/13/23 Status: Ordered multivitamin Multiple Vitamins oral tablet 1 tablet, By Mouth, Daily, # 30 tablet, 1 Refills, Maintenance, 10/01/19 11:23:00 EDT, Tablet, [facility], 1 tablet By Mouth Daily,x30 days, 165.1, [...] 90 capsule, Refills 1, Tot. Refills 1, Maintenance,02/03/23 13:47:00 EDT, Route to Pharmacy Electronically, [facility] #[id number], 166, cm, 12/16/22 17:39:00 EDT, Height, 77, kg, 12/12/22 16:21:00... Start Date: 02/03/23 Stop Date: 08/02/23 Status: Ordered traZODone 100 mg oral tablet 100 mg, 1, tablet, By Mouth, Daily at bedtime, TAKE 1 TABLET BY MOUTH EVERY NIGHT AT BEDTIME, # 90 tablet, Refills 1, Tot. Refills 1, Maintenance, 02/03/23 13:46:00 EDT, Route to Pharmacy Electronically, [facility] #[id number], Partial fill upon... Start Date: 02/03/23 Stop Date: 08/02/23 Status: Ordered Wellbutrin XL 150 mg/24 hours oral tablet, extended release 1 tablet = 150 mg, By Mouth, Every 24 hours, # 90 tablet, 1 Refills, Maintenance, 02/03/23 13:43:00EDT, XL Tablet, [facility] #[id number], Partial fill upon patient request if the prescription is for a schedule II opioid drug., 166, cm, 12/16/22... Start Date: 02/03/23 Stop Date: 08/02/23 Status: Ordered Problem List Condition Confirmation Course [...] Team Personnel Name: Marissa Malik NP Position: [facility] PCO Associate Professional Member Role: PCP Address: Address: [address] [place] [address] [place], [place] [address] Name: Elisa Lamar RN Position: [facility] RN Member Role: Primary Care Nurse Name: Zo Segal RN Position: [facility] Nurse Member Role: Primary Care Nurse Name: Antonia Mtz RN Position: [facility] RN Member Role: Primary Care Nurse Name: Milla Emmanuel RN Position: [facility] RN Member Role: Primary Care Nurse Name: Carol Min [place] Position: [facility] RN Member Role: Primary Care Nurse Name: Katt Gustafson Position: [facility] RN Member Role: Primary Care Nurse Name: Ashely Pacheco Position: [facility] RN Member Role: Primary Care Nurse Name: Miri Espitia RN Position: [facility] Nurse Member Role: Primary Care Nurse Name: Maksim Hunt III, RN Position: [facility] RN Member Role: Primary Care Nurse Name: Elisa Fields RN Position: [facility] RN Member Role: Primary Care Nurse Name: Aron Mcginnis RN Position: [facility] RN Member Role: Primary Care Nurse Name: Natalia Plata RN Position: [facility] RN Member Role: Primary Care Nurse Name: Kacy Barnhart RN Position: [facility] RN Member Role: Primary Care Nurse Name: Guerline Ramirez RN Position: [facility] RN Member Role: Primary Care Nurse Name: Ashlyn Cordova RN Position: [facility] Onco RN Member Role: Primary Care Nurse Name: Jennifer Ignacio RN Position: [facility] RN Member Role: Primary Care Nurse Care Team Related Persons Name: KORY NGO Address: home [address] [address] Name: TEVIN WILL Address: home [address] [place] [id number] Name: ALEX WILL Address: [address] [place] [address] Name: ALEX ROPER Address: [address] [place] [address]
--- OUTSIDE RECORDS SUMMARY | 2023-09-06 15:43 | XMS_ITS | Continuity of Care Document ---
Author Organization [facility] Address [address] [place] [address]- Care Team Providers Care Clinical Rehabilitation Coordinator Name Role Phone Marissa Malik NP Primary Care Physician Encounter [facility] [place] Date(s): 12/12/22 - 12/12/[address] [address]- Encounter Diagnosis Overdose(Final) - 12/12/22 Discharge Disposition: A-D/C Home Attending Physician: Titi Lugo MD Admitting Physician: Titi Lugo MD Referring Physician: Not on Staff, Referring [...] 11/15/22 14:23:00 EDT, Route to Pharmacy Electronically, [facility] #[id number], 165, cm, 11/10/22 10:56:00 EDT, Height, 79, kg, 11/10/22 10:56:00... Start Date: 11/15/22 Stop Date: 03/15/23 Status: Ordered acamprosate 333 mg oral delayed release tablet 2 tablet = 666 mg, By Mouth, 3 times a day, # 180 tablet, 0 Refills, Maintenance, 04/19/22 12:37:00EST, CR Tablet, [facility] 3, Partial fill upon patient request if the prescription is for a schedule II opioid drug., 165, cm, 04/19/22 11... Start Date: 04/19/22 Stop Date: 05/19/22 Status: Ordered busPIRone 15 mg oral tablet 1 tablet = 15 mg, By Mouth, 3 times a day, # 90 tablet, 3 Refills, Maintenance, 11/15/22 14:23:00 EDT, Tablet, [facility] #[id number], Partial fill upon patient request if the prescription is for a schedule II opioid drug., 165, cm, 11/10/22 10:5... Start Date: 11/15/22 Stop Date: 03/15/23 Status: Ordered Creon 36,000 units oral delayed release capsule 1 capsule, By Mouth, 3 times a day, # 90 capsule, 3 Refills, Maintenance, 06/08/22 9:09:00 EST, [facility] #[id number], Partial fill upon patient request if the prescription is for a schedule IIopioid drug., 1 capsule By Mouth 3 times a day, 165... Start Date: 06/08/22 Status: Ordered doxepin 50 mg oral capsule 1 capsule = 50 mg, By Mouth, Daily at bedtime, # 30 capsule, 3 Refills, Maintenance, 11/15/22 14:23:00 EDT, Capsule, [facility] #[id number], 165, cm, 11/10/22 10:56:00 EDT, Height, 79, kg, 11/10/22 10:56:00 EDT, Dry Weight Start Date: 11/15/22 Stop Date: 03/15/23 Status: Ordered gabapentin 600 mg oral tablet See Instructions, 1 tablet in the morning and 2 tablets at bedtime, # 90 tablet, 3 Refills, Maintenance, 11/15/22 14:24:00 EDT, Tablet, [facility] #[id number], 165, cm, 11/10/22 10:56:00 EDT, Height, 79, kg, 11/10/22 10:56:00 EDT, Dry Weight Start Date: 11/15/22 Status: Ordered Lidocaine Viscous 2% solution 5 mL = 0.1 Gm, Topically, 3 times a day before meals and bedtime, PRN for mouth sore pain, # 20 mL,0 Refills, Acute 12/19/22 16:11:00 EDT, 12/12/22 16:11:00 EDT, Solution, [facility] #[id number], Partial fill upon patient request if the prescrip... Start Date: 12/12/22 Stop Date: 12/19/22 Status: Ordered LORazepam 1 mg oral tablet 1 tablet = 1 mg, By Mouth, 3 times a day, PRN as needed for anxiety, # 90 tablet, 3 Refills, Maintenance, 11/15/22 14:24:00 EDT, Tablet, [facility] #[id number], Partial fill upon patient requestif the prescription is for a schedule II opioid elijah... Start Date: 11/15/22 Stop Date: 03/15/23 Status: Ordered multivitamin Multiple Vitamins oral tablet 1 tablet, By Mouth, Daily, # 30 tablet, 1 Refills, Maintenance, 10/01/19 11:23:00 EDT, Tablet, [facility], 1 tablet By Mouth Daily,x30 days, [...] Maintenance,11/15/22 14:24:00 EDT, Route to Pharmacy Electronically, [facility] #[id number], 165, cm, 11/10/22 10:56:00 EDT, Height, 79, kg, 11/10/22 10:56:00... Start Date: 11/15/22 Stop Date: 02/13/23 Status: Ordered traZODone 100 mg oral tablet 100 mg, 1, tablet, By Mouth, Daily at bedtime, TAKE 1 TABLET BY MOUTH EVERY NIGHT AT BEDTIME, # 30 tablet, Refills 3, Tot. Refills 3, Maintenance, 11/15/22 14:24:00 EDT, Route to Pharmacy Electronically, [facility] #[id number], Partial fill upon... Start Date: 11/15/22 Stop Date: 03/15/23 Status: Ordered valACYclovir 500 mg oral tablet 500 mg, 1, tablet, By Mouth, 2 times a day, # 6 tablet, Refills 1, Tot. Refills 1, Maintenance, 11/10/22 11:16:00 EDT, Route to Pharmacy Electronically, [facility] #[id number], Partial fill uponpatient request if the prescription [...] recent to oldest [Reference Range]: 1 2 Oxygen Saturation [94-100 %] 98 % (12/12/22 6:15 AM) 96 % (12/12/22 6:07 AM) Pulse Rate [55-90 bpm] 77 bpm (12/12/22 6:15 AM) 83 bpm (12/12/22 6:07 AM) Blood Pressure [90-138/55-84 mm Hg] 117/ 80mm Hg (12/12/22 6:15 AM) 117/80mm Hg (12/12/22 6:07 AM) Respiratory Rate [16-30 br/min] 14 br/mi n *L* (12/12/22 6:15 AM) 18 br/min (12/12/22 6:07 AM) Temperature [96.8-100.4 DegF] 97.7 DegF (12/12/22 6:15 AM) 97.6 DegF (12/12/22 6:07 AM) Liters per Minute 2 L/min (12/12/22 6:15 AM) 2 L/min (12/12/22 6:07 AM) Mode of Delivery (Oxygen) Nasal cannula w/oxymizer (12/12/22 6:15 AM) Nasal cannula (12/12/22 6:07 AM) Blood pressure sites Arm, left (12/12/22 6:15 AM) Arm, left (12/12/22 6:07 AM) Temperature Route Oral (12/12/22 6:15 AM) Oral (12/12/22 6:07 AM) Social History Social History Type Response Smoking Status Current every day sm alexandre; Tobacco user in household: Yes entered on: 05/01/14 Sex EKG study * Event Display: ECG 12-Lead Authored Date: Please click on pdf link to open report * Event Display: ECG 12-Lead Authored Date: Ventricular Rate: 64 BPM Atrial Rate: 64 BPM P-R Interval: 136 ms QRS Duration: 92 ms Q-T Interval: 466 ms QTC Calculation(Bazett): 480 ms P [place]: 39 degrees R [place]: 55 degrees T [place]: 56 degrees Normal sinus rhythm T wave abnormality, consider anterior ischemia Prolonged QT Abnormal ECG When compared with ECG of 19-JUL-2022 14:27, No significant change was found Confirmed by MEGGAN NAVARRETE ([id number]) on 12/12/2022 11:29:32 AM [place]: MEGGAN NAVARRETE Note * Serena Avery DO: PERFORM Event Display: Patient Education Leaflets Authored Date: [id number] Accidental Ingestion: Nontoxic (Adult) ?? [id number] Accidental Ingestion: Nontoxic (Adult) You have been evaluated and treated for accidentally taking too much of a medicine, using someone else's medicine by mistake, or swallowing a chemical product. There is no sign of toxic effect at this time. It's not likely that any new symptoms will appear. But to be safe, watch for symptoms duringthe next 24 hours (see below). The symptoms will depend on what was swallowed. Home care ??? If liquid charcoal was given to neutralize what was swallowed, your stool may be black for 1 to 2 days. A laxative may be given with charcoal. This speeds the removal of any toxins fromthe intestines. This may cause diarrhea for up to 24 hours. ??? If you have been given charcoal butno laxative, you may become constipated. If this occurs, you may take an [id number]-[id number] laxative. ?? Prevention ??? Keep medicines, pesticides, and other household chemicals in their original containers. ??? Keep all substances in a safe place. Store household products in a different place than food and medicine. ??? Use household products as instructed on the label. Mixing products can be dangerous. ??? Take medicine as directed by your healthcare provider. Read the label carefully. ??? If a medicine doesn't work, contact your healthcare provider. Don't take extra medicine. ??? Don't take someone else'smedicine. In the future, if you or someone you know takes something possibly harmful and you are not sure what to do, call the Poison Control Centers. The phone number is [phone]. The phone line is staffed 24 hours a day. If you call, you will be connected to the poison control center closest to you. ?? Follow-up care Follow up with your healthcare provider, or as advised. ?? Call 911 Call 911 if any of these occur. ??? Trouble breathing or swallowing, wheezing ??? Severe confusion ??? Extreme drowsiness or trouble awakening ??? Fainting or loss of consciousness ??? Rapid heart rate ??? Very slow heart rate ??? Very low or very high blood pressure ??? Vomiting blood, or large amounts of blood in stool ??? Seizure ?? When to seek medical advice Call your healthcare provider right away if any of these occur. ??? Shakiness ??? Fast breathing (over 25 breaths per minute) or slow breathing (less than 8 breaths per minute) ??? Shortness of breath ??? Fever of 100.4??F (38??C) or higher, or as directed by your healthcare provider ??? Vomiting or diarrhea for more than 24 hours ??? Abdominal pain ??? Dizziness or weakness ?? Last Reviewed Date: 2022 ?? [id number] [employer]. All rights reserved. This information is not intended as a substitute for professional medical care. Always follow your healthcare professional's instructions. ?? Patient Care team information Care Team Personnel Name: Marissa Malik NP Position: [facility] PCO Associate Professional Member Role: PCP Address: Address: [address] [place] [address]- Name: Elisa Lamar RN Position: [facility] RN Member Role: Primary Care Nurse Name: Zo Segal RN Position: [facility] AMB Nurse Member Role: Primary Care Nurse Name: Antonia Mtz RN Position: [facility] RN Member Role: Primary Care Nurse Name: Milla Emmanuel RN Position: [facility] SN RN Member Role: Primary Care Nurse Name: Carol Min MA Position: [facility] RN Member Role: Primary Care Nurse Name: Katt Gustafson Position: [facility] RN Member Role: Primary Care Nurse Name: Ashely Pacheco Position: [facility] RN Member Role: Primary Care Nurse Name: Miri Espitia RN Position: [facility] AMB Nurse Member Role: Primary Care Nurse Name: Maksim Hunt III, RN Position: [facility] RN Member Role: Primary Care Nurse Name: Elisa Fields RN Position: [facility] RN Member Role: Primary Care Nurse Name: Aron Mcginnis RN Position: [facility] SN RN Member Role: Primary Care Nurse Name: Natalia Plata RN Position: [facility] RN Member Role: Primary Care Nurse Name: Kacy Barnhart RN Position: [facility] RN Member Role: Primary Care Nurse Name: Guerline Ramirez RN Position: [facility] RN Member Role: Primary Care Nurse Name: Ashlyn Cordova RN Position: [facility] Onco RN Member Role: Primary Care Nurse Name: Jennifer Ignacio RN Position: [facility] RN Member Role: Primary Care Nurse Name: Michael Maldonado Position: [facility] ED [facility] Name: Serena Avery DO Position: [facility] Resident Member Role: Resident Address: Address: [address] [place] [address]- Name: Angella Ayala RN Position: [facility] ED RN W/OE and Tasks Member Role: Patient Care Provider Name: Titi Lugo MD Position: [facility] ED Medicine MD Member Role: Admitting Physician Address: Address: [address] [place] [address]- Care Team Related Persons Name: KORY NGO Address: home [address] [address] Name: TEVIN WILL Address: home [address] [place] [address] Name: ALEX WILL Address: home [address] [place] [address] Name: ALEX ROPER Address: home [address] [place] [address]
--- OUTSIDE RECORDS SUMMARY | 2023-09-06 15:43 | XMS_ITS | Continuity of Care Document ---
Author Organization [facility] [place] Address [address] [place] [address]- Care Team Providers Care Solar Photovoltaic Designer Name Role Phone Anai Lane NP Primary Care Physician [phone] Encounter [facility] Date(s): 06/13/23 - 08/24/23 [facility] [place] [address] [place], [place] [address] Attending Physician: Anai Lane NP Allergies, Adverse Reactions, Alerts Substance Reaction [...] 02/03/23 13:42:00 EDT, Route to Pharmacy Electronically, [facility] #[id number], 166, cm, 12/16/22 17:39:00 EDT, Height, 77, kg, 12/12/22 16:21:00... Start Date: 02/03/23 Stop Date: 08/02/23 Status: Ordered Albuterol (Eqv-ProAir HFA) 90 mcg/inh inhalation aerosol 2 puffs, Inhalation, Every 6 hours, # 8.5 Gm, 0 Refills, Maintenance, 02/17/23 18:07:00 EDT, [facility] #[id number], Partial fill upon patient request if the prescription is for a schedule II opioid drug., 2 puffs Inhalation Every 6 hours, 166, c... Start Date: 02/17/23 Status: Ordered buPROPion 300 mg/24 hours (XL) oral tablet, extended release 1 tablet = 300 mg, By Mouth, Every 24 hours, # 90 tablet, 1 Refills, Maintenance, 06/06/23 16:18:00EST, [facility] #[id number], Partial fill upon patient request if the prescription is for a schedule II opioid drug., 165, cm, 04/02/23 23:00:00 E... Start Date: 06/06/23 Stop Date: 12/03/23 Status: Ordered Creon 36,000 units oral delayed release capsule 1 capsule, By Mouth, 3 times a day, # 90 capsule, 3 Refills, Maintenance, 06/08/22 9:09:00 EST, [facility] #[id number], Partial fill upon patient request if the prescription is for a schedule IIopioid drug., 1 capsule By Mouth 3 times a day, 165... Start Date: 06/08/22 Status: Ordered doxepin 50 mg oral capsule 1 capsule = 50 mg, By Mouth, Daily at bedtime, # 90 capsule, 1 Refills, Maintenance, 06/06/23 16:15:00 EST, Capsule, [facility] #[id number], 165, cm, 04/02/23 23:00:00 EST, Height, 77.5, kg, 04/02/23 23:00:00 EST, Dry Weight Start Date: 06/06/23 Stop Date: 12/03/23 Status: Ordered gabapentin 600 mg oral tablet See Instructions, 1 tablet in the morning and 2 tablets at bedtime, # 270 tablet, 1 Refills, Maintenance, 06/06/23 16:17:00 EST, Tablet, [facility] #[id number], 90 day supply, 165, cm, 04/02/23 23:00:00 EST, Height, 77.5, kg, 04/02/23 23:00:00 ES... Start Date: 06/06/23 Status: Ordered lamotrigine 25 mg oral tablet 75 mg, 3, tablet, By Mouth, Daily at bedtime, # 270 tablet, Refills 1, Tot. Refills 1, Maintenance,06/06/23 16:16:00 EST, Route to Pharmacy Electronically, [facility] #[id number], Partial fill upon patient request if the prescription is for a sc... Start Date: 06/06/23 Stop Date: 12/03/23 Status: Ordered lidocaine 4% topical cream See Instructions, apply 2 x per day to the R forearm, as needed for pain; not to exceed 3 applications in 24 hours, # 30 Gm, 0 Refills, Soft Stop, 08/08/23 9:15:00 EDT, Cream, [facility] to substitute similar topical lidocaine prod... Start Date: 08/08/23 Status: Ordered LORazepam 1 mg oral tablet 1 tablet = 1 mg, By Mouth, 3 times a day, PRN as needed for anxiety, # 90 tablet, 3 Refills, Maintenance, 06/06/23 16:16:00 EST, Tablet, [facility] #[id number], dose increase, 165, cm, 04/02/23 23:00:00 EST, [...] 1 Refills, Maintenance, 10/01/19 11:23:00 EDT, Tablet, [facility]-, 1 tablet By Mouth Daily,x30 days, 165.1, cm, 10/01/19 8:37:00 EDT, Height, 80.1, kg, 09/19/19 16:30:00 EDT, Dry Weight Start Date: 10/01/19 Stop Date: 11/30/19 Status: Ordered nicotine 7 mg/24 hr transdermal film, extended release 1 patch, Topically, Daily, for 28 days, # 28 patch, 0 Refills, Acute 09/05/23 8:14:00 EDT, 248:14:00 EDT, Patch, [facility], Partial fill upon patient request if the prescriptionis for a schedule II opioid drug. OK to dispense si... Start Date: 08/08/23 Stop Date: 09/05/23 Status: Ordered pantoprazole 40 mg oral delayed [...] Maintenance,06/06/23 16:17:00 EST, Route to Pharmacy Electronically, [facility] #[id number], 165, cm, 04/02/23 23:00:00 EST, Height, 77.5, kg, 04/02/23 23:00:... Start Date: 06/06/23 Stop Date: 12/03/23 Status: Ordered traZODone 100 mg oral tablet 100 mg, 1, tablet, By Mouth, Daily at bedtime, TAKE 1 TABLET BY MOUTH EVERY NIGHT AT BEDTIME, # 90 tablet, Refills 1, Tot. Refills 1, Maintenance, 06/06/23 16:17:00 EST, Route to Pharmacy Electronically, [facility] #[id number], Partial fill upon... Start Date: 06/06/23 Stop [...] Team Personnel Name: Elisa Lamar RN Position: [facility] RN Member Role: Primary Care Nurse Name: Zo Segal RN Position: [facility] Nurse Member Role: Primary Care Nurse Name: David Maldonado RN Position: [facility] RN Member Role: Primary Care Nurse Name: Antonia Mtz RN Position: [facility] RN Member Role: Primary Care Nurse Name: Carmina Fuentes RN Position: [facility] RN Member Role: Primary Care Nurse Name: Katelynn Moss RN Position: [facility] RN Member Role: Primary Care Nurse Name: Milla Emmanuel RN Position: [facility] RN Member Role: Primary Care Nurse Name: Carol Min MA Position: [facility] RN Member Role: Primary Care Nurse Name: Katt Gustafson Position: [facility] RN Member Role: Primary Care Nurse Name: Ashely Pacheco Position: [facility] RN Member Role: Primary Care Nurse Name: Miri Epsitia RN Position: [facility] Nurse Member Role: Primary Care Nurse Name: Maksim Hunt III, RN Position: [facility] RN Member Role: Primary Care Nurse Name: Elisa Fields RN Position: [facility] RN Member Role: Primary Care Nurse Name: Anai Lane NP Position: [facility] PCO Associate Professional Member Role: PCP Address: Address: [address] [place] [address]- Name: Aron Mcginnis RN Position: [facility] SN RN Member Role: Primary Care Nurse Name: Natalia Plata RN Position: [facility] RN Member Role: Primary Care Nurse Name: Kacy Barnhart RN Position: [facility] RN Member Role: Primary Care Nurse Name: Guerline Ramirez RN Position: [facility] Onco RN Member Role: Primary Care Nurse Name: Vandana Muniz RN Position: [facility] RN Member Role: Primary Care Nurse Name: Ashlyn Cordova RN Position: [facility] Onco RN Member Role: Primary Care Nurse Name: Jennifer Ignacio RN Position: [facility] RN Member Role: Primary Care Nurse Care Team Related Persons Name: KORY NGO Address: [place] [address] [address] Name: TEVIN WILL Address: home [address] [place] [address] Name: ALEX WILL Address: [address] [place] [address] Name: ALEX ROPER Address: [address] [place] [address]
--- OUTSIDE RECORDS SUMMARY | 2023-09-06 15:43 | XMS_ITS | Continuity of Care Document ---
Author Organization [facility] Primary Car e [facility] Address [address] [place] [address]- Care Team Providers Care Asset Card Clerk Name Role Phone Helena GALLEGOS, Marissa Hernandez Primary Care Physician Encounter [facility] Date(s): 06/14/22 - 07/14/22 [facility] Care Bean [address], [place] [address] Allergies, Adverse Reactions, Alerts Substance [...] 06/10/22 14:19:00 EST, Route to Pharmacy Electronically, [facility] #[id number], 165, cm, 05/25/22 14:24:00 EST, Height, 80, kg, 04/14/22 3:03:00 E... Start Date: 06/10/22 Stop Date: 10/08/22 Status: Ordered acamprosate 333 mg oral delayed release tablet 2 tablet = 666 mg, By Mouth, 3 times a day, # 180 tablet, 0 Refills, Maintenance, 04/19/22 12:37:00EST, CR Tablet, [facility], Partial fill upon patient request if the prescription is for a schedule II opioid drug., 165, cm, 04/19/22 11... Start Date: 04/19/22 Stop Date: 05/19/22 Status: Ordered busPIRone 15 mg oral tablet 1 tablet = 15 mg, By Mouth, 3 times a day, # 90 tablet, 3 Refills, Maintenance, 06/10/22 14:24:00 EST, Tablet, [facility] #[id number], Partial fill upon patient request if the prescription is for a schedule II opioid drug., 165, cm, 05/25/22 14:2... Start Date: 06/10/22 Stop Date: 10/08/22 Status: Ordered Creon 36,000 units oral delayed release capsule 1 capsule, By Mouth, 3 times a day, # 90 capsule, 3 Refills, Maintenance, 06/08/22 9:09:00 EST, [facility] #[id number], Partial fill upon patient request if the prescription is for a schedule IIopioid drug., 1 capsule By Mouth 3 times a day, 165... Start Date: 06/08/22 Status: Ordered doxepin 50 mg oral capsule 1 capsule = 50 mg, By Mouth, Daily at bedtime, # 30 capsule, 3 Refills, Maintenance, 06/10/22 14:20:00 EST, Capsule, [facility] #[id number], 165, cm, 05/25/22 14:24:00 EST, Height, 80, kg, 04/14/22 3:03:00 EST, Dry Weight Start Date: 06/10/22 Stop Date: 10/08/22 Status: Ordered fluticasone 50 mcg/inh nasal spray See Instructions, SHAKE LIQUID AND USE 1 SPRAY IN EACH NOSTRIL TWICE DAILY, # 15.8 mL, 3 Refills, 03/23/21 16:18:00 EST, [facility] #[id number], SHAKE LIQUID AND USE 1 SPRAY IN EACH NOSTRIL TWICE DAILY, 164, cm, 03/23/21 15:58:00 EST, Height, 86.... Start Date: 03/23/21 Status: Ordered gabapentin 600 mg oral tablet See Instructions, 1 tablet in the morning and 2 tablets at bedtime, # 90 tablet, 3 Refills, Maintenance, 06/10/22 14:20:00 EST, Tablet, [facility] #[id number], 165, cm, 05/25/22 14:24:00 EST, Height, 80, kg, 04/14/22 3:03:00 EST, Dry Weight Start Date: 06/10/22 Status: Ordered loperamide 2 mg oral capsule 2 mg, 1, capsule, By Mouth, Every 3 hours, PRN, # 30 capsule, Refills 0, Tot. Refills 0, Acute 04/19/23 11:43:00 EST, Loose Stool, 04/19/22 11:43:00 EST, Route to Pharmacy Electronically, [facility], Partial fill upon patient request if... Start Date: 04/19/22 Stop Date: 04/19/23 Status: Ordered LORazepam 1 mg oral tablet 1 tablet = 1 mg, By Mouth, 3 times a day, PRN as needed for anxiety, # 90 tablet, 3 Refills, Maintenance, 06/10/22 14:21:00 EST, Tablet, [facility] #[id number], Partial fill upon patient requestif the prescription is for a schedule II opioid elijah... Start Date: 06/10/22 Stop Date: 10/08/22 Status: Ordered multivitamin Multiple Vitamins oral tablet 1 tablet, By Mouth, Daily, # 30 tablet, 1 Refills, Maintenance, 10/01/19 11:23:00 EDT, Tablet, [facility], 1 tablet By Mouth Daily,x30 days, 165.1, cm, 10/01/19 8:37:00 EDT, Height, 80.1, kg, 09/19/19 16:30:00 EDT, Dry Weight Start Date: 10/01/19 Stop Date: 11/30/19 Status: Ordered Narcan 4 mg/0.1 mL nasal spray = 4 mg, Nares, Both, Once, # 2 each, 0 Refills, Soft Stop, 04/19/22 12:16:00 EST, [facility], Partial fill upon patient [...] Maintenance,06/10/22 14:21:00 EST, Route to Pharmacy Electronically, [facility] #[id number], 165, cm, 05/25/22 14:24:00 EST, Height, 80, kg, 04/14/22 3:03:00... Start Date: 06/10/22 Stop Date: 10/08/22 Status: Ordered traMADol 50 mg oral tablet 1 tablet = 50 mg, By Mouth, Every 8 hours, 30 each, TAKE 1 TABLET BY MOUTH EVERY 8 HOURS NEEDED FOR FOR PAIN, # 30 tablet, 2 Refills, Maintenance, 06/14/22 15:23:00 EST, Tablet, [facility] #[id number], Partial fill upon patient request if the... Start Date: 06/14/22 Status: Ordered traZODone 100 mg oral tablet 100 mg, 1, tablet, By Mouth, Daily at bedtime, TAKE 1 TABLET BY MOUTH EVERY NIGHT AT BEDTIME, # 30 tablet, Refills 3, Tot. Refills 3, Maintenance, 06/10/22 14:22:00 EST, Route to Pharmacy Electronically, [facility] #[id number], Partial fill upon... Start Date: 06/10/22 Stop [...] Team Personnel Name: Marissa Malik NP Position: [facility] PCO Associate Professional Member Role: PCP Address: Address: [address] [place] [address] Name: Elisa Lamar RN Position: [facility] RN Member Role: Primary Care Nurse Name: Zo Segal RN Position: [facility] RN Member Role: Primary Care Nurse Name: Antonia Mtz RN Position: [facility] RN Member Role: Primary Care Nurse Name: Tiffany Ugalde RN Position: [facility] RN Member Role: Primary Care Nurse Name: Katelynn Moss RN Position: [facility] RN Member Role: Primary Care Nurse Name: Milla Emmanuel RN Position: [facility] RN Member Role: Primary Care Nurse Name: Carol Cordova Position: [facility] RN Member Role: Primary Care Nurse Name: Katt Gustafson Position: [facility] RN Member Role: Primary Care Nurse Name: Ashely Pacheco Position: [facility] RN Member Role: Primary Care Nurse Name: Miri Espitia RN Position: [facility] AMB Nurse Member Role: Primary Care Nurse Name: Mkasim Hunt III, RN Position: [facility] RN Member Role: Primary Care Nurse Name: Elisa Fields RN Position: [facility] RN Member Role: Primary Care Nurse Name: Aron Mcginnis RN Position: [facility] ED RN W/OE and Tasks Member Role: Primary Care Nurse Name: Natalia Plata RN Position: [facility] RN Member Role: Primary Care Nurse Name: Kacy Barnhart RN Position: [facility] RN Member Role: Primary Care Nurse Name: Guerline Ramirez RN Position: [facility] RN Member Role: Primary Care Nurse Name: Ashlyn Cordova RN Position: [facility] Onco RN Member Role: Primary Care Nurse Name: Jennifer Ignacio RN Position: [facility] RN Member Role: Primary Care Nurse Care Team Related Persons Name: KORY NGO Address: home [address] [address] Name: TEVIN WILL Address: home [address] [place] [address] Name: ALEX WILL Address: home [address] [place] [address] Name: ALEX ROPER Address: home [address] [place] [address]
--- OUTSIDE RECORDS SUMMARY | 2023-09-06 15:43 | XMS_ITS | Continuity of Care Document ---
Author Organization [facility] Primary [facility] Address [address] [place] [address]- Care Team Providers Care Sales Support Advisor Name Role Phone Helena GALLEGOS, Marissa Hernandez Primary Care Physician Encounter [facility] Date(s): 05/17/22 - 06/16/22 [facility] Care [facility] [address] [place], [place] [address] Allergies, Adverse Reactions, Alerts Substance Reaction Severity [...] 06/10/22 14:19:00 EST, Route to Pharmacy Electronically, [facility] #[id number], 165, cm, 05/25/22 14:24:00 EST, Height, 80, kg, 04/14/22 3:03:00 E... Start Date: 06/10/22 Stop Date: 10/08/22 Status: Ordered acamprosate 333 mg oral delayed release tablet 2 tablet = 666 mg, By Mouth, 3 times a day, # 180 tablet, 0 Refills, Maintenance, 04/19/22 12:37:00EST, CR Tablet, [facility], Partial fill upon patient request if the prescription is for a schedule II opioid drug., 165, cm, 04/19/22 11... Start Date: 04/19/22 Stop Date: 05/19/22 Status: Ordered busPIRone 15 mg oral tablet 1 tablet = 15 mg, By Mouth, 3 times a day, # 90 tablet, 3 Refills, Maintenance, 06/10/22 14:24:00 EST, Tablet, [facility] #[id number], Partial fill upon patient request if the prescription is for a schedule II opioid drug., 165, cm, 05/25/22 14:2... Start Date: 06/10/22 Stop Date: 10/08/22 Status: Ordered Creon 36,000 units oral delayed release capsule 1 capsule, By Mouth, 3 times a day, # 90 capsule, 3 Refills, Maintenance, 06/08/22 9:09:00 EST, [facility] #[id number], Partial fill upon patient request if the prescription is for a schedule IIopioid drug., 1 capsule By Mouth 3 times a day, 165... Start Date: 06/08/22 Status: Ordered doxepin 50 mg oral capsule 1 capsule = 50 mg, By Mouth, Daily at bedtime, # 30 capsule, 3 Refills, Maintenance, 06/10/22 14:20:00 EST, Capsule, [facility] #[id number], 165, cm, 05/25/22 14:24:00 EST, Height, 80, kg, 04/14/22 3:03:00 EST, Dry Weight Start Date: 06/10/22 Stop Date: 10/08/22 Status: Ordered fluticasone 50 mcg/inh nasal spray See Instructions, SHAKE LIQUID AND USE 1 SPRAY IN EACH NOSTRIL TWICE DAILY, # 15.8 mL, 3 Refills, 03/23/21 16:18:00 EST, [facility] #[id number], SHAKE LIQUID AND USE 1 SPRAY IN EACH NOSTRIL TWICE DAILY, 164, cm, 03/23/21 15:58:00 EST, Height, 86.... Start Date: 03/23/21 Status: Ordered gabapentin 600 mg oral tablet See Instructions, 1 tablet in the morning and 2 tablets at bedtime, # 90 tablet, 3 Refills, Maintenance, 06/10/22 14:20:00 EST, Tablet, [facility] #[id number], 165, cm, 05/25/22 14:24:00 EST, Height, 80, kg, 04/14/22 3:03:00 EST, Dry Weight Start Date: 06/10/22 Status: Ordered loperamide 2 mg oral capsule 2 mg, 1, capsule, By Mouth, Every 3 hours, PRN, # 30 capsule, Refills 0, Tot. Refills 0, Acute 04/19/23 11:43:00 EST, Loose Stool, 04/19/22 11:43:00 EST, Route to Pharmacy Electronically, [facility], Partial fill upon patient request if... Start Date: 04/19/22 Stop Date: 04/19/23 Status: Ordered LORazepam 1 mg oral tablet 1 tablet = 1 mg, By Mouth, 3 times a day, PRN as needed for anxiety, # 90 tablet, 3 Refills, Maintenance, 06/10/22 14:21:00 EST, Tablet, [email or web address] #[id number], Partial fill upon patient requestif the prescription is for a schedule II opioid elijah... Start Date: 06/10/22 Stop Date: 10/08/22 Status: Ordered multivitamin Multiple Vitamins oral tablet 1 tablet, By Mouth, Daily, # 30 tablet, 1 Refills, Maintenance, 10/01/19 11:23:00 EDT, Tablet, [facility], 1 tablet By Mouth Daily,x30 days, 165.1, cm, 10/01/19 8:37:00 EDT, Height, 80.1, kg, 09/19/19 16:30:00 EDT, Dry Weight Start Date: 10/01/19 Stop Date: 11/30/19 Status: Ordered Narcan 4 mg/0.1 mL nasal spray = 4 mg, Nares, Both, Once, # 2 each, 0 Refills, Soft Stop, 04/19/22 12:16:00 EST, [facility], Partial fill upon patient [...] Maintenance,06/10/22 14:21:00 EST, Route to Pharmacy Electronically, [email or web address] #[id number], 165, cm, 05/25/22 14:24:00 EST, Height, 80, kg, 04/14/22 3:03:00... Start Date: 06/10/22 Stop Date: 10/08/22 Status: Ordered traMADol 50 mg oral tablet 1 tablet = 50 mg, By Mouth, Every 8 hours, 30 each, TAKE 1 TABLET BY MOUTH EVERY 8 HOURS NEEDED FOR FOR PAIN, # 30 tablet, 2 Refills, Maintenance, 06/14/22 15:23:00 EST, Tablet, [email or web address] #[id number], Partial fill upon patient request if the... Start Date: 06/14/22 Status: Ordered traZODone 100 mg oral tablet 100 mg, 1, tablet, By Mouth, Daily at bedtime, TAKE 1 TABLET BY MOUTH EVERY NIGHT AT BEDTIME, # 30 tablet, Refills 3, Tot. Refills 3, Maintenance, 06/10/22 14:22:00 EST, Route to Pharmacy Electronically, [facility] #[id number], Partial fill upon... Start Date: 06/10/22 Stop [...] Team Personnel Name: Marissa Malik NP Position: [facility] PCO Associate Professional Member Role: PCP Address: Address: [address] [place] [id number] Name: Elisa Lamar RN Position: [facility] RN Member Role: Primary Care Nurse Name: Zo Segal [facility] RN Member Role: Primary Care Nurse Name: Antonia Mtz RN Position: [facility] RN Member Role: Primary Care Nurse Name: Tiffany Ugalde RN Position: [facility] RN Member Role: Primary Care Nurse Name: Katelynn Moss RN Position: [facility] RN Member Role: Primary Care Nurse Name: Milla Emmanuel RN Position: [facility] AMB Nurse Member Role: Primary Care Nurse Name: Carol Cordova Position: [facility] RN Member Role: Primary Care Nurse Name: Katt Gustafson Position: [facility] RN Member Role: Primary Care Nurse Name: Ashely Pacheco Position: [facility] RN Member Role: Primary Care Nurse Name: Miri Espitia RN Position: [facility] Nurse Member Role: Primary Care Nurse Name: Maksim Hunt III, RN Position: [facility] RN Member Role: Primary Care Nurse Name: Elisa Fields RN Position: [facility] RN Member Role: Primary Care Nurse Name: Aron Mcginnis RN Position: [facility] SN RN Member Role: Primary Care Nurse Name: Natalia Plata RN Position: [facility] RN Member Role: Primary Care Nurse Name: Kacy Barnhart RN Position: [facility] RN Member Role: Primary Care Nurse Name: Guerline Ramirez RN Position: [facility] RN Member Role: Primary Care Nurse Name: Ashlyn Cordova RN Position: [facility] Onco RN Member Role: Primary Care Nurse Name: Jennifer Ignacio RN Position: [facility] RN Member Role: Primary Care Nurse Care Team Related Persons Name: KORY NGO Address: home [address] [address] Name: TEVIN WILL Address: [address] [place] [address] Name: ALEX WILL Address: [address] [place] [address] Name: ALEX ROPER Address: [address] [place] [address]
--- OUTSIDE RECORDS SUMMARY | 2023-09-06 15:43 | XMS_ITS | Continuity of Care Document ---
Author Organization [facility] ter Address [address] [place] [address]- Care Team Providers Care Belly Dancer Name Role Phone Marissa Malik NP Primary Care Physician Encounter [facility] Date(s): 05/06/22 - 05/06/[address] [address]- Discharge Disposition: A-D/C Walkout Attending Physician: Not on Staff, Attending MD Admitting Physician: Not on Staff, Admitting MD Referring Physician: Not on Staff, Referring [...] 03/15/22 11:53:00 EST, Route to Pharmacy Electronically, [facility] #[id number], 165, cm, 02/23/22 23:48:00 EDT, Height, 83, kg, 02/23/22 0:48:00 E... Start Date: 03/15/22 Stop Date: 07/13/22 Status: Ordered acamprosate 333 mg oral delayed release tablet 2 tablet = 666 mg, By Mouth, 3 times a day, # 180 tablet, 0 Refills, Maintenance, 04/19/22 12:37:00EST, CR Tablet, [facility], Partial fill upon patient request if the prescription is for a schedule II opioid drug., 165, cm, 04/19/22 11... Start Date: 04/19/22 Stop Date: 05/19/22 Status: Ordered Creon 36,000 units oral delayed release capsule 1 capsule, By Mouth, 3 times a day, # 90 capsule, 0 Refills, Maintenance, 05/06/22 14:15:00 EST, [facility] #[id number], Partial fill upon patient request if the prescription is for a schedule II opioid drug., 1 capsule By Mouth 3 times a day, 16... Start Date: 05/06/22 Status: Ordered doxepin 50 mg oral capsule 1 capsule = 50 mg, By Mouth, Daily at bedtime, # 30 capsule, 3 Refills, Maintenance, 03/15/22 11:53:00 EST, Capsule, [facility] #[id number], 165, cm, 02/23/22 23:48:00 EDT, Height, 83, kg, 02/23/22 0:48:00 EDT, Dry Weight Start Date: 03/15/22 Stop Date: 07/13/22 Status: Ordered fluticasone 50 mcg/inh nasal spray See Instructions, SHAKE LIQUID AND USE 1 SPRAY IN EACH NOSTRIL TWICE DAILY, # 15.8 mL, 3 Refills, 03/23/21 16:18:00 EST, [facility] #[id number], SHAKE LIQUID AND USE 1 SPRAY IN EACH NOSTRIL TWICE DAILY, 164, cm, 03/23/21 15:58:00 EST, Height, 86.... Start Date: 03/23/21 Status: Ordered gabapentin 600 mg oral tablet See Instructions, 1 tablet in the morning and 2 tablets at bedtime, # 90 tablet, 3 Refills, Maintenance, 03/15/22 11:52:00 EST, Tablet, [facility] #[id number], 165, cm, 02/23/22 23:48:00 EDT, Height, 83, kg, 02/23/22 0:48:00 EDT, Dry Weight Start Date: 03/15/22 Status: Ordered loperamide 2 mg oral capsule 2 mg, 1, capsule, By Mouth, Every 3 hours, PRN, # 30 capsule, Refills 0, Tot. Refills 0, Acute 04/19/23 11:43:00 EST, Loose Stool, 04/19/22 11:43:00 EST, Route to Pharmacy Electronically, [facility], Partial fill upon patient request [...] tablet, 0 Refills, Maintenance, 04/19/22 13:13:00 EST, [facility] 3, Partial fill upon patient request if the prescription is for a schedule II opioid drug., 165, cm, 04/19/22 11:15:00 EST,... Start Date: 04/19/22 Stop Date: 04/26/22 Status: Ordered morphine 15 mg/8 to 12 hr oral tablet, extended release 1 tablet = 15 mg, By Mouth, Every 12 hours, # 6 tablet, 0 Refills, Maintenance, 04/30/22 16:54:00 EST, [facility] #[id number], Partial fill upon patient request if the prescription is for a schedule II opioid drug., 165, cm, 04/19/22 11:15:00 EST... Start Date: 04/30/22 Stop Date: 05/03/22 Status: Ordered multivitamin Multiple Vitamins oral tablet 1 tablet, By Mouth, Daily, # 30 tablet, 1 Refills, Maintenance, 10/01/19 11:23:00 EDT, Tablet, [facility] 1 tablet By Mouth Daily,x30 days, 165.1, cm, 10/01/19 8:37:00 EDT, Height, 80.1, kg, 09/19/19 16:30:00 EDT, Dry Weight Start Date: 10/01/19 Stop Date: 11/30/19 Status: Ordered Narcan 4 mg/0.1 mL nasal spray = 4 mg, Nares, Both, Once, # 2 each, 0 Refills, Soft Stop, 04/19/22 12:16:00 EST, [facility] 3, Partial fill upon patient request if the prescription is for a schedule II opioid drug., 165, cm, 04/19/22 11:15:00 EST, Height, 80, kg, ... Start Date: 04/19/22 Status: Ordered ondansetron 4 mg oral tablet 1 tablet = 4 mg, By Mouth, Every 8 hours, PRN Nausea & Vomiting, # 10 tablet, 1 Refills, Acute 05/07/22 22:34:00 EST, 05/01/22 22:34:00 EST, Tablet, [facility] #[id number], Partial fill uponpatient request if the prescription is for a schedule I... Start Date: 05/01/22 Stop Date: 05/07/22 Status: Ordered pantoprazole 40 mg oral delayed [...] Maintenance,03/15/22 11:52:00 EST, Route to Pharmacy Electronically, [facility] #[id number], 165, cm, 02/23/22 23:48:00 EDT, Height, 83, kg, 02/23/22 0:48:00... Start Date: 03/15/22 Stop Date: 07/13/22 Status: Ordered traZODone 100 mg oral tablet TAKE 1 TABLET BY MOUTH EVERY NIGHT AT BEDTIME Start Date: 04/14/22 Status: Ordered Zoloft 100 mg oral tablet 2 tablet = 200 mg, By Mouth, Daily, # 60 tablet, 1 Refills, Maintenance, 03/15/22 11:52:00 EST, Tablet, [facility] #[id number], 165, cm, 02/23/22 23:48:00 EDT, Height, 83, [...] Most recent to oldest [Reference Range]: 1 Oxygen Saturation [94-100 %] 95 % (05/06/22 7:09 PM) Pulse Rate [55-90 bpm] 100 bpm *H* (05/06/22 7:09 PM) Blood Pressure [90-138/55-84 mm Hg] 97/5 8mm Hg (05/06/22 7:09 PM) Respiratory Rate [16-30 br/min] 18 br/mi n (05/06/22 7:09 PM) Temperature [96.8-100.4 DegF] 98.0 DegF (05/06/22 7:09 PM) Mode of Delivery (Oxygen) Room air (05/06/22 7:09 PM) Blood pressure sites Arm, left (05/06/22 7:09 PM) Temperature Route Oral (05/06/22 7:09 PM) Social History Social History Type Response Smoking Status Current every day sm oker; Tobacco user in household: Yes entered on: 05/01/14 Sex Patient Care team information Care Team Personnel Name: Marissa Malik NP Position: [facility] PCO Associate Professional Member Role: PCP Address: Address: [address] [place] [address] [place], [place] [address] Name: Elisa Lamar RN Position: [facility] RN Member Role: Primary Care Nurse Name: Zo Segal RN Position: [facility] RN Member Role: Primary Care Nurse Name: Antonia Mtz RN Position: [facility] RN Member Role: Primary Care Nurse Name: Tiffany Ugalde RN Position: [facility] RN Member Role: Primary Care Nurse Name: Katelynn Moss RN Position: [facility] RN Member Role: Primary Care Nurse Name: Milla Emmanuel RN Position: [facility] AMB Nurse Member Role: Primary Care Nurse Name: Carol Cordova Position: [facility] RN Member Role: Primary Care Nurse Name: aKtt Gustafson Position: [facility] RN Member Role: Primary Care Nurse Name: Ashely Pacheco Position: [facility] RN Member Role: Primary Care Nurse Name: Miri Espitia RN Position: [facility] AMB Nurse Member Role: Primary Care Nurse Name: Maksim Hunt III, RN Position: [facility] RN Member Role: Primary Care Nurse Name: Elisa Fields RN Position: [facility] RN Member Role: Primary Care Nurse Name: Aron Mcginnis RN Position: [facility] SN RN Member Role: Primary Care Nurse Name: Natalia Plata RN Position: [facility] RN Member Role: Primary Care Nurse Name: Kacy Barnhart RN Position: [facility] RN Member Role: Primary Care Nurse Name: Guerline Ramirez RN Position: [facility] RN Member Role: Primary Care Nurse Name: Ashlyn Cordova RN Position: [facility] Onco RN Member Role: Primary Care Nurse Name: Jennifer Ignacio RN Position: [facility] RN Member Role: Primary Care Nurse Care Team Related Persons Name: JENI TATIANNAOg Address: home [address] [address] Name: TEVIN WILL Address: home [address] [place] [address] Name: ALEX WILL Address: [address] [place] [address] Name: ALEX ROPER Address: [address] [place] [address]
--- OUTSIDE RECORDS SUMMARY | 2023-09-06 15:44 | XMS_ITS | Continuity of Care Document ---
Author Organization [facility] Address [address] [place] [address]- Care Team Providers Care Connie Cleaner Name Role Phone Helena GALLEGOS, Marissa Hernandez Primary Care Physician Encounter [facility] Date(s): 03/10/22 - 04/09/22 [facility] [address] [place], [place] [address] Allergies, Adverse Reactions, Alerts [...] 03/15/22 11:53:00 EST, Route to Pharmacy Electronically, [facility] #[id number], 165, cm, 02/23/22 23:48:00 EDT, Height, 83, kg, 02/23/22 0:48:00 E... Start Date: 03/15/22 Stop Date: 07/13/22 Status: Ordered Creon 12,000 units oral delayed release capsule 2 capsule, By Mouth, 3 times a day, # 180 capsule, 6 Refills, Maintenance, 03/30/22 17:46:00 EST, [facility] #[id number], 165, cm, 03/30/22 16:47:00 EST, Height, 83, kg, 02/23/22 0:48:00 EDT, Dry Weight Start Date: 03/30/22 Status: Ordered doxepin 50 mg oral capsule 1 capsule = 50 mg, By Mouth, Daily at bedtime, # 30 capsule, 3 Refills, Maintenance, 03/15/22 11:53:00 EST, Capsule, [facility] #[id number], 165, cm, 02/23/22 23:48:00 EDT, Height, 83, kg, 02/23/22 0:48:00 EDT, Dry Weight Start Date: 03/15/22 Stop Date: 07/13/22 Status: Ordered EPINEPHrine 0.1 mg injectable kit = 0.1 mg, Intramuscular, Once, PRN Other, # 1 each, 0 Refills, Soft Stop, 11/29/18 8:35:13 EDT Start Date: 11/29/18 Status: Ordered fluticasone 50 mcg/inh nasal spray See Instructions, SHAKE LIQUID AND USE 1 SPRAY IN EACH NOSTRIL TWICE DAILY, # 15.8 mL, 3 Refills, 03/23/21 16:18:00 EST, [facility] #[id number], SHAKE LIQUID AND USE 1 SPRAY IN EACH NOSTRIL TWICE DAILY, 164, cm, 03/23/21 15:58:00 EST, Height, 86.... Start Date: 03/23/21 Status: Ordered gabapentin 600 mg oral tablet See Instructions, 1 tablet in the morning and 2 tablets at bedtime, # 90 tablet, 3 Refills, Maintenance, 03/15/22 11:52:00 EST, Tablet, [facility] #[id number], 165, cm, 02/23/22 23:48:00 EDT, Height, 83, kg, 02/23/22 0:48:00 EDT, Dry Weight Start Date: 03/15/22 Status: Ordered multivitamin Multiple Vitamins oral tablet 1 tablet, By Mouth, Daily, # 30 tablet, 1 Refills, Maintenance, 10/01/19 11:23:00 EDT, Tablet, [facility]-, 1 tablet By Mouth Daily,x30 days, [...] Maintenance,03/15/22 11:52:00 EST, Route to Pharmacy Electronically, [facility] #[id number], 165, cm, 02/23/22 23:48:00 EDT, Height, 83, kg, 02/23/22 0:48:00... Start Date: 03/15/22 Stop Date: 07/13/22 Status: Ordered Zoloft 100 mg oral tablet 2 tablet = 200 mg, By Mouth, Daily, # 60 tablet, 1 Refills, Maintenance, 03/15/22 11:52:00 EST, Tablet, [facility] #[id number], 165, cm, 02/23/22 23:48:00 EDT, Height, 83, [...] Professional Member Role: PCP Address: Address: [address] [place] [id number] Name: Elisa Lamar RN Position: [facility] RN Member Role: Primary Care Nurse Name: Zo Segal RN Position: [facility] PCO RN Member Role: Primary Care Nurse Name: Katelynn Moss RN Position: [facility] RN Member Role: Primary Care Nurse Name: Milla Emmanuel RN Position: [facility] Nurse Member Role: Primary Care Nurse Name: Carol Cordova Position: [facility] RN Member Role: Primary Care Nurse Name: Katt Gustafson Position: [facility] RN Member Role: Primary Care Nurse [...] Related Persons Name: KORY NGO Address: home [address] [place] [id number] Name: TEVIN WILL Address: home [address] [place] [address] Name: ALEX WILL Address: home [address] [place] [address] Name: ALEX ROPER Address: home [address] [place] [address]
--- OUTSIDE RECORDS SUMMARY | 2023-09-06 15:44 | XMS_ITS | Continuity of Care Document ---
Author Organization [facility] ter Address [address] [place] [id number]- Care Team Providers Care Utility Systems Repairer Operator Name Role Phone Marissa Malik NP Primary Care Physician [phone] [place] [facility] [place] - 07/19/[address] [address]- Encounter Diagnosis Abdominal pain(Final) - 07/19/22 Chronic pancreatitis(Final) - 07/19/22 Alcoholic liver disease(Final) - 07/19/22 Gastritis(Final) - 07/19/22 Discharge Disposition: A-D/C Home Attending Physician: Bhanu Dennison MD Admitting Physician: Bhanu Dennison MD Referring Physician: Not on Staff, Referring [...] 06/10/22 14:19:00 EST, Route to Pharmacy Electronically, [facility] #[id number], 165, cm, 05/25/22 14:24:00 EST, Height, 80, kg, 04/14/22 3:03:00 E... Start Date: 06/10/22 Stop Date: 10/08/22 Status: Ordered acamprosate 333 mg oral delayed release tablet 2 tablet = 666 mg, By Mouth, 3 times a day, # 180 tablet, 0 Refills, Maintenance, 04/19/22 12:37:00EST, CR Tablet, [facility] 3, Partial fill upon patient request if the prescription is for a schedule II opioid drug., 165, cm, 04/19/22 11... Start Date: 04/19/22 Stop Date: 05/19/22 Status: Ordered busPIRone 15 mg oral tablet 1 tablet = 15 mg, By Mouth, 3 times a day, # 90 tablet, 3 Refills, Maintenance, 06/10/22 14:24:00 EST, Tablet, [facility] #[id number], Partial fill upon patient request if the prescription is for a schedule II opioid drug., 165 cm, 05/25/22 14:2... Start Date: 06/10/22 Stop Date: 10/08/22 Status: Ordered Creon 36,000 units oral delayed release capsule 1 capsule, By Mouth, 3 times a day, # 90 capsule, 3 Refills, Maintenance, 06/08/22 9:09:00 EST, [facility] #[id number], Partial fill upon patient request if the prescription is for a schedule IIopioid drug., 1 capsule By Mouth 3 times a day, 165... Start Date: 06/08/22 Status: Ordered Dilaudid Inj 2 mg, Injection, IV Push Slowly, Every 15 minutes for 3 doses/times, PRN for Pain , Moderate, and SBP greater than 100, Routine, 07/19/22 14:49:00 EDT, Stop date Limited # of times Start Date: 07/19/22 Stop Date: 07/19/22 Status: Completed doxepin 50 mg oral capsule 1 capsule = 50 mg, By Mouth, Daily at bedtime, # 30 capsule, 3 Refills, Maintenance, 06/10/22 14:20:00 EST, Capsule, [facility] #[id number], 165, cm, 05/25/22 14:24:00 EST, Height, 80, kg, 04/14/22 3:03:00 EST, Dry Weight Start Date: 06/10/22 Stop Date: 10/08/22 Status: Ordered fluticasone 50 mcg/inh nasal spray See Instructions, SHAKE LIQUID AND USE 1 SPRAY IN EACH NOSTRIL TWICE DAILY, # 15.8 mL, 3 Refills, 03/23/21 16:18:00 EST, [facility] #[id number], SHAKE LIQUID AND USE 1 SPRAY IN EACH NOSTRIL TWICE DAILY, 164, cm, 03/23/21 15:58:00 EST, Height, 86.... Start Date: 03/23/21 Status: Ordered gabapentin 600 mg oral tablet See Instructions, 1 tablet in the morning and 2 tablets at bedtime, # 90 tablet, 3 Refills, Maintenance, 06/10/22 14:20:00 EST, Tablet, [facility] #[id number], 165, cm, 05/25/22 14:24:00 EST, Height, 80, kg, 04/14/22 3:03:00 EST, Dry Weight Start Date: 06/10/22 Status: Ordered HYDROmorphone 2 mg oral tablet 1 tablet = 2 mg, By Mouth, Every 6 hours, PRN as needed for pain, # 8 tablet, 0 Refills, Maintenance, 07/19/22 18:31:00 EDT, Tablet, [facility] #[id number], Partial fill upon patient request if the prescription is for a schedule II opioid drug.,... Start Date: 07/19/22 Status: Ordered loperamide 2 mg oral capsule 2 mg, 1, capsule, By Mouth, Every 3 hours, PRN, # 30 capsule, Refills 0, Tot. Refills 0, Acute 04/19/23 11:43:00 EST, Loose Stool, 04/19/22 11:43:00 EST, Route to Pharmacy Electronically, [facility] 3, Partial fill upon patient request if... Start Date: 04/19/22 Stop Date: 04/19/23 Status: Ordered LORazepam 1 mg oral tablet 1 tablet = 1 mg, By Mouth, 3 times a day, PRN as needed for anxiety, # 90 tablet, 3 Refills, Maintenance, 06/10/22 14:21:00 EST, Tablet, [facility] #[id number], Partial fill upon patient requestif the prescription is for a schedule II opioid elijah... Start Date: 06/10/22 Stop Date: 10/08/22 Status: Ordered multivitamin Multiple Vitamins oral tablet 1 tablet, By Mouth, Daily, # 30 tablet, 1 Refills, Maintenance, 10/01/19 11:23:00 EDT, Tablet, [facility]-, 1 tablet By Mouth Daily,x30 days, 165.1, cm, 10/01/19 8:37:00 EDT, Height, 80.1, kg, 09/19/19 16:30:00 EDT, Dry Weight Start Date: 10/01/19 Stop Date: 11/30/19 Status: Ordered Narcan 4 mg/0.1 mL nasal spray = 4 mg, Nares, Both, Once, # 2 each, 0 Refills, Soft Stop, 04/19/22 12:16:00 EST, [facility] 3, Partial fill upon patient request [...] Maintenance,06/10/22 14:21:00 EST, Route to Pharmacy Electronically, [facility] #[id number], 165, cm, 05/25/22 14:24:00 EST, Height, 80, kg, 04/14/22 3:03:00... Start Date: 06/10/22 Stop Date: 10/08/22 Status: Ordered traMADol 50 mg oral tablet 1 tablet = 50 mg, By Mouth, Every 8 hours, 30 each, TAKE 1 TABLET BY MOUTH EVERY 8 HOURS NEEDED FOR FOR PAIN, # 30 tablet, 2 Refills, Maintenance, 06/14/22 15:23:00 EST, Tablet, [facility] #[id number], Partial fill upon patient request if the... Start Date: 06/14/22 Status: Ordered traZODone 100 mg oral tablet 100 mg, 1, tablet, By Mouth, Daily at bedtime, TAKE 1 TABLET BY MOUTH EVERY NIGHT AT BEDTIME, # 30 tablet, Refills 3, Tot. Refills 3, Maintenance, 06/10/22 14:22:00 EST, Route to Pharmacy Electronically, [facility] #[id number], Partial fill upon... Start Date: 06/10/22 Stop [...] Exam Date Time Procedure Performing Provider Status 07/19/22 5:50 PM US RUQ Catalina Andujar; Aut h (Verified) Notes: (US RUQ) Reason For Exam: Abdominal Pain;Other: RESULT: US RUQ US RUQ Hx of Present Illness: : Pt is coming from home c o upper abdominal pain since last night. Pt denies any vomiting , has hx of chronic Pancreatitis. Admits to drinking wine last night ,states, Morphine does not work, Dilaudid works well for my pain ; Reason: Other:; Abdominal Pain; Clinical Question(s): Cholecystitis COMPARISON: 05/01/2022 FINDINGS: Liver: Coarse hepatic echotexture and echogenic parenchyma. There is focal fat sparing near the gallbladder. No suspicious lesion. Smooth hepatic contour. Main portal vein patent with normal hepatopetal direction of flow. Gallbladder: No gallstones. Normal wall thickness. No pericholecystic fluid. Negative Bonds sign. Biliary Tree: No intrahepatic or extrahepatic bile duct dilation is identified. Common duct measures: 0.4 cm. Pancreas: Obscured by overlying bowel gas. Right kidney: 9.0 cm in length. Normal parenchymal echotexture and thickness. No hydronephrosis, stone or mass. IMPRESSION: Coarse hepatic echotexture and echogenic parenchyma likely due to underlying hepatocellular disease. WSN: [id number] Ordering Physician: Guerline Foster Dictated By: Alessandra Monroe MD Dictated Date/Time: 07/19/22 6:15 pm Reviewed By: Alessandra Monroe MD Signed By: Alessandra Monroe MD Signed Date/Time: 07/19/22 6:15 pm Transcribed By: DIPESH Transcribed Date/Time: 07/19/22 6:13 pm Vital Signs Most recent to oldest [Reference Range]: 1 2 3 Height 165 cm (07/19/22 1:50 PM) Weight 77.5 kg (07/19/22 1:50 PM) Oxygen Saturation [94-100 %] 93 % *L* (07/19/22 6:42 PM) 97 % (07/19/22 5:29 PM) 98 % (07/19/22 1:50 PM) Pulse Rate [55-90 bpm] 91 bpm *H* (07/19/22 6:42 PM) 89 bpm (07/19/22 5:29 PM) 80 bpm (07/19/22 1:50 PM) Blood Pressure [90-138/55-84 mm Hg] 128/93mm Hg (07/19/22 6:42 PM) 124/83mm Hg (07/19/22 5:29 PM) 130/88mm Hg (07/19/22 1:50 PM) Respiratory Rate [16-30 br/min] 18 br/min (07/19/22 6:42 PM) 18 br/min (07/19/22 5:29 PM) 18 br/min (07/19/22 3:06 PM) Temperature [96.8-100.4 DegF] 97.3 DegF (07/19/22 6:42 PM) 98.4 DegF (07/19/22 1:50 PM) Mode of Delivery (Oxygen) Room air (07/19/22 6:42 PM) Room air (07/19/22 5:29 PM) Nasal cannula (07/19/22 1:50 PM) Blood pressure sites Arm, left (07/19/22 6:42 PM) Arm, left (07/19/22 5:29 PM) Arm, right (07/19/22 1:50 PM) Temperature Route Oral (07/19/22 6:42 PM) Oral (07/19/22 1:50 PM) Dry Weight 77.5 kg (07/19/22 1:50 PM) Social History Social History Type Response 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 Status 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; Tobacco user in household: Yes entered on: 05/01/14 Sex EKG study * Event Display: ECG 12-Lead Authored Date: Please click on pdf link to open report * Event Display: ECG 12-Lead Authored Date: Ventricular Rate: 72 BPM Atrial Rate: 72 BPM P-R Interval: 140 ms QRS Duration: 80 ms Q-T Interval: 412 ms QTC Calculation(Bazett): 451 ms P [place]: 43 degrees R [place]: 63 degrees T [place]: 63 degrees Normal sinus rhythm ST and T wave abnormality, consider anterior ischemia Abnormal ECG When compared with ECG of 06-MAY-2022 19:29, No significant change was found Confirmed by MEGGAN NAVARRETE ([id number]) on 07/19/2022 8:29:23 PM [place]: MEGGAN NAVARRETE Note * Guerline Foster MD: PERFORM Event Display: Patient Education Leaflets Authored Date: [id number] Pancreatitis ?? [id number] Pancreatitis The pancreas is an organ in [...] consciousness ?? Last Reviewed Date: 2021 ?? 1312-9815 [employer]. All rights reserved. This information is not intended as a substitute for professional medical care. Always follow your healthcare professional's instructions. ?? US Abdomen RUQ * BHSPowerscribe , CIS S: TRANSCRIBE Alessandra Monroe MD: VERIFY Event Display: Result: Authored Date: [id number] US RUQ Hx of Present Illness: : Pt is coming from home c o upper abdominal pain since last night. Pt denies any vomiting , has hx of chronic Pancreatitis. Admits to drinking wine last night ,states, Morphine does not work, Dilaudid works well for my pain ; Reason: Other:; Abdominal Pain; Clinical Question(s): Cholecystitis COMPARISON: 05/01/2022 FINDINGS: Liver: Coarse hepatic echotexture and echogenic parenchyma. There is focal fat sparing near the gallbladder. No suspicious lesion. Smooth hepatic contour. Main portal vein patent with normal hepatopetal direction of flow. Gallbladder: No gallstones. Normal wall thickness. No pericholecystic fluid. Negative Bonds sign. Biliary Tree: No intrahepatic or extrahepatic bile duct dilation is identified. Common duct measures: 0.4 cm. Pancreas: Obscured by overlying bowel gas. Right kidney: 9.0 cm in length. Normal parenchymal echotexture and thickness. No hydronephrosis, stone or mass. IMPRESSION: Coarse hepatic echotexture and echogenic parenchyma likely due to underlying hepatocellular disease. WSN: [id number] Ordering Physician: Guerline Foster Dictated By: Alessandra Monroe MD Dictated Date/Time: 07/19/22 6:15 pm Reviewed By: Alessandra Monroe MD Signed By: Alessandra Monroe MD Signed Date/Time: 07/19/22 6:15 pm Transcribed By: DIPESH Transcribed Date/Time: 07/19/22 6:13 pm Patient Care team information Care Team Personnel Name: Marissa Malik NP Position: [facility] PCO Associate Professional Member Role: PCP Address: Address: [address] [place] [address] [place] [address]- Name: Elisa Lamar RN Position: [facility] RN Member Role: Primary Care Nurse Name: Zo Segal RN Position: [facility] PCO RN Member Role: Primary Care Nurse Name: Antonia Mtz RN Position: [facility] RN Member Role: Primary Care Nurse Name: Tiffany Ugalde RN Position: [facility] RN Member Role: Primary Care Nurse Name: Katelynn Moss RN Position: [facility] RN Member Role: Primary Care Nurse Name: Milla Emmanuel RN Position: [facility] SN RN Member Role: Primary Care Nurse Name: Carol Cordova Position: [facility] RN Member Role: Primary Care Nurse Name: Katt Gustafson Position: [facility] RN Member Role: Primary Care Nurse Name: Ashely Pacheco Position: [facility] RN Member Role: Primary Care Nurse Name: Miri Espitia RN Position: [facility] AMB Nurse Member Role: Primary Care Nurse Name: Maksim Hunt III, RN Position: [facility] RN Member Role: Primary Care Nurse Name: Elisa Fields RN Position: [facility] RN Member Role: Primary Care Nurse Name: Aron Mcginnis RN Position: [facility] SN RN Member Role: Primary Care Nurse Name: Natalia Plata RN Position: [facility] RN Member Role: Primary Care Nurse Name: Kacy Barnhart RN Position: [facility] RN Member Role: Primary Care Nurse Name: Guerline Ramirez RN Position: [facility] RN Member Role: Primary Care Nurse Name: Ashlyn Cordova RN Position: [facility] Onco RN Member Role: Primary Care Nurse Name: Jennifer Ignacio RN Position: [facility] RN Member Role: Primary Care Nurse Name: Bhanu Dennison MD Position: [facility] ED Medicine MD Member Role: Admitting Physician Address: Address: [address] [place] [address] [place] [address]- Name: Fozia Vicente Position: [facility] ED RN W/OE and Tasks Member Role: Patient Care Provider Name: Guerline Foster MD Position: [facility] Resident Member Role: ED Resident Address: Address: [address] [place] [id number] Name: Eric Lewis Position: [facility] ED TA [facility] Member Role: Knife Setter Grinder Machine Care Team Related Persons Name: KORY NGO Address: home [address] [address] Name: TEVIN WILL Address: home [address] [place] [address] Name: ALEX WILL Address: home [address] [place] [address] Name: ALEX ROPER Address: home [address] [place] [address]
--- OUTSIDE RECORDS SUMMARY | 2023-09-06 15:44 | XMS_ITS | Continuity of Care Document ---
Author Organization [facility] Primary [facility] [place] Address [address] [place] [address]- Care Team Providers Care Loader Name Role Phone Helena GALLEGOS, Marissa Hernandez Primary Care Physician Encounter [facility] Date(s): 08/16/22 - 09/15/22 [facility] Care [facility] [address], [place] [address] Allergies, Adverse Reactions, Alerts Substance [...] 08/16/22 13:06:00 EDT, Route to Pharmacy Electronically, [facility] #[id number], 165, cm, 07/19/22 13:50:00 EDT, Height, 77.5, kg, 07/19/22 13:50:0... Start Date: 08/16/22 Stop Date: 12/14/22 Status: Ordered acamprosate 333 mg oral delayed release tablet 2 tablet = 666 mg, By Mouth, 3 times a day, # 180 tablet, 0 Refills, Maintenance, 04/19/22 12:37:00EST, CR Tablet, [facility], Partial fill upon patient request if the prescription is for a schedule II opioid drug., 165, cm, 04/19/22 11... Start Date: 04/19/22 Stop Date: 05/19/22 Status: Ordered busPIRone 15 mg oral tablet 1 tablet = 15 mg, By Mouth, 3 times a day, # 90 tablet, 3 Refills, Maintenance, 08/16/22 13:06:00 EDT, Tablet, [facility] #[id number], Partial fill upon patient request if the prescription is for a schedule II opioid drug., 165, cm, 07/19/22 13:5... Start Date: 08/16/22 Stop Date: 12/14/22 Status: Ordered Creon 36,000 units oral delayed release capsule 1 capsule, By Mouth, 3 times a day, # 90 capsule, 3 Refills, Maintenance, [facility]/08[facility]22 [id number] Partial fill upon patient request if the prescription is for a schedule IIopioid drug., 1 capsule By Mouth 3 times a day, 165... Start Date: 06/08/22 Status: Ordered doxepin 50 mg oral capsule 1 capsule = 50 mg, By Mouth, Daily at bedtime, # 30 capsule, 3 Refills, Maintenance, 08/16/22 13:06:00 EDT, Capsule, [facility] #[id number], 165, cm, 07/19/22 13:50:00 EDT, Height, 77.5, kg, 07/19/22 13:50:00 EDT, Dry Weight Start Date: 08/16/22 Stop Date: 12/14/22 Status: Ordered fluticasone 50 mcg/inh nasal spray See Instructions, SHAKE LIQUID AND USE 1 SPRAY IN EACH NOSTRIL TWICE DAILY, # 15.8 mL, 3 Refills, 03/23/21 16:18:00 EST, [facility] #[id number], SHAKE LIQUID AND USE 1 SPRAY IN EACH NOSTRIL TWICE DAILY, 164, cm, 03/23/21 15:58:00 EST, Height, 86.... Start Date: 03/23/21 Status: Ordered gabapentin 600 mg oral tablet See Instructions, 1 tablet in the morning and 2 tablets at bedtime, # 90 tablet, 3 Refills, Maintenance, 08/16/22 13:07:00 EDT, Tablet, [facility] #[id number], 165, cm, 07/19/22 13:50:00 EDT, Height, 77.5, kg, 07/19/22 13:50:00 EDT, Dry Weight Start Date: 08/16/22 Status: Ordered HYDROmorphone 2 mg oral tablet 1 tablet = 2 mg, By Mouth, Every 6 hours, PRN as needed for pain, # 8 tablet, 0 Refills, Maintenance, 07/19/22 18:31:00 EDT, Tablet, [facility] #[id number], Partial fill upon patient request if the prescription is for a schedule II opioid drug.,... Start Date: 07/19/22 Status: Ordered loperamide 2 mg oral capsule 2 mg, 1, capsule, By Mouth, Every 3 hours, PRN, # 30 capsule, Refills 0, Tot. Refills 0, Acute 04/19/23 11:43:00 EST, Loose Stool, 04/19/22 11:43:00 EST, Route to Pharmacy Electronically, [facility] 3, Partial fill upon patient request if... Start Date: 04/19/22 Stop Date: 04/19/23 Status: Ordered LORazepam 1 mg oral tablet 1 tablet = 1 mg, By Mouth, 3 times a day, PRN as needed for anxiety, # 90 tablet, 3 Refills, Maintenance, 08/16/22 13:07:00 EDT, Tablet, [facility] #[id number], Partial fill upon patient requestif the prescription is for a schedule II opioid elijah... Start Date: 08/16/22 Stop Date: 12/14/22 Status: Ordered multivitamin Multiple Vitamins oral tablet 1 tablet, By Mouth, Daily, # 30 tablet, 1 Refills, Maintenance, 10/01/19 11:23:00 EDT, Tablet, [facility]-[id number], 1 tablet By Mouth Daily,x30 days, 165.1, cm, 10/01/19 8:37:00 EDT, Height, 80.1, kg, 09/19/19 16:30:00 EDT, Dry Weight Start Date: 10/01/19 Stop Date: 11/30/19 Status: Ordered Narcan 4 mg/0.1 mL nasal spray = 4 mg, Nares, Both, Once, # 2 each, 0 Refills, Soft Stop, 04/19/22 12:16:00 EST, [facility] 3, Partial fill upon patient request [...] Maintenance,08/16/22 13:07:00 EDT, Route to Pharmacy Electronically, [facility] #[id number], 165, cm, 07/19/22 13:50:00 EDT, Height, 77.5, kg, 07/19/22 13:50:... Start Date: 08/16/22 Stop Date: 12/14/22 Status: Ordered traMADol 50 mg oral tablet 1 tablet = 50 mg, By Mouth, Every 8 hours, 30 each, TAKE 1 TABLET BY MOUTH EVERY 8 HOURS NEEDED FOR FOR PAIN, # 30 tablet, 0 Refills, Maintenance, 09/02/22 8:19:00 EDT, Tablet, [facility] #[id number], Partial fill upon patient request if the p... Start Date: 09/02/22 Status: Ordered traZODone 100 mg oral tablet 100 mg, 1, tablet, By Mouth, Daily at bedtime, TAKE 1 TABLET BY MOUTH EVERY NIGHT AT BEDTIME, # 30 tablet, Refills 3, Tot. Refills 3, Maintenance, 08/16/22 13:07:00 EDT, Route to Pharmacy Electronically, [facility] #[id number], Partial fill upon... Start Date: 08/16/22 Stop [...] Team Personnel Name: Marissa Malik NP Position: [facility] PCO Associate Professional Member Role: PCP Address: Address: [address] [place] [address] Primary Care [place], [place] [address] Name: Elisa Lamar RN Position: [facility] RN Member Role: Primary Care Nurse Name: Zo Segal RN Position: [facility]O RN Member Role: Primary Care Nurse Name: Antonia Mtz RN Position: [facility] RN Member Role: Primary Care Nurse Name: Tiffany Ugalde RN Position: [facility] RN Member Role: Primary Care Nurse Name: Katelynn Moss RN Position: [facility] RN Member Role: Primary Care Nurse Name: Milla Emmanuel RN Position: [facility] SN RN Member Role: Primary Care Nurse Name: Carol Cordova Position: [facility] RN Member Role: Primary Care Nurse Name: Katt Gustafson Position: [facility] RN Member Role: Primary Care Nurse Name: Ashely Pacheco Position: [facility] RN Member Role: Primary Care Nurse Name: Miri Espitia RN Position: [facility] AMB Nurse Member Role: Primary Care Nurse Name: Maksim Hunt III, RN Position: [facility] RN Member Role: Primary Care Nurse Name: Elisa Fields RN Position: [facility] RN Member Role: Primary Care Nurse Name: Aron Mcginnis RN Position: [facility] SN RN Member Role: Primary Care Nurse Name: Natalia Plata RN Position: [facility] RN Member Role: Primary Care Nurse Name: Kacy Barnhart RN Position: [facility] RN Member Role: Primary Care Nurse Name: Guerline Ramirez RN Position: [facility] RN Member Role: Primary Care Nurse Name: Ashlyn Cordova RN Position: [facility] Onco RN Member Role: Primary Care Nurse Name: Jennifer Ignacio RN Position: [facility] RN Member Role: Primary Care Nurse Care Team Related Persons Name: TATIANNA NGOOg Address: home [address] [address] Name: TEVIN WILL Address: home [address] [place] [address] Name: ALEX WILL Address: home [address] [place] [address] Name: ALEX ROPER Address: home [address] [place] [address]
--- OUTSIDE RECORDS SUMMARY | 2023-09-06 15:44 | XMS_ITS | Continuity of Care Document ---
Author Organization [facility] Primary [facility] Address [address] [place] [address]- Care Team Providers Care Manager Money Name Role Phone Helena AGLLEGOS, Marissa Hernandez Primary Care Physician Encounter [facility] Date(s): 05/18/22 - 06/17/22 [facility] Care [facility] [address] [place], [place] [address] Allergies, Adverse Reactions, [...] 06/10/22 14:19:00 EST, Route to Pharmacy Electronically, [facility] #[id number], 165, cm, 05/25/22 14:24:00 EST, Height, 80, kg, 04/14/22 3:03:00 E... Start Date: 06/10/22 Stop Date: 10/08/22 Status: Ordered acamprosate 333 mg oral delayed release tablet 2 tablet = 666 mg, By Mouth, 3 times a day, # 180 tablet, 0 Refills, Maintenance, 04/19/22 12:37:00EST, CR Tablet, [facility] 3, Partial fill upon patient request if the prescription is for a schedule II opioid drug., 165, cm, 04/19/22 11... Start Date: 04/19/22 Stop Date: 05/19/22 Status: Ordered busPIRone 15 mg oral tablet 1 tablet = 15 mg, By Mouth, 3 times a day, # 90 tablet, 3 Refills, Maintenance, 06/10/22 14:24:00 EST, Tablet, [facility] #[id number], Partial fill upon patient request if the prescription is for a schedule II opioid drug., 165, cm, 05/25/22 14:2... Start Date: 06/10/22 Stop Date: 10/08/22 Status: Ordered Creon 36,000 units oral delayed release capsule 1 capsule, By Mouth, 3 times a day, # 90 capsule, 3 Refills, Maintenance, 06/08/22 9:09:00 EST, [facility] #[id number], Partial fill upon patient request if the prescription is for a schedule IIopioid drug., 1 capsule By Mouth 3 times a day, 165... Start Date: 06/08/22 Status: Ordered doxepin 50 mg oral capsule 1 capsule = 50 mg, By Mouth, Daily at bedtime, # 30 capsule, 3 Refills, Maintenance, 06/10/22 14:20:00 EST, Capsule, [facility] #[id number], 165, cm, 05/25/22 14:24:00 EST, Height, 80, kg, 04/14/22 3:03:00 EST, Dry Weight Start Date: 06/10/22 Stop Date: 10/08/22 Status: Ordered fluticasone 50 mcg/inh nasal spray See Instructions, SHAKE LIQUID AND USE 1 SPRAY IN EACH NOSTRIL TWICE DAILY, # 15.8 mL, 3 Refills, 03/23/21 16:18:00 EST, [facility] #[id number], SHAKE LIQUID AND USE 1 SPRAY IN EACH NOSTRIL TWICE DAILY, 164, cm, 03/23/21 15:58:00 EST, Height, 86.... Start Date: 03/23/21 Status: Ordered gabapentin 600 mg oral tablet See Instructions, 1 tablet in the morning and 2 tablets at bedtime, # 90 tablet, 3 Refills, Maintenance, 06/10/22 14:20:00 EST, Tablet, [facility] #[id number], 165, cm, 05/25/22 14:24:00 EST, Height, 80, kg, 04/14/22 3:03:00 EST, Dry Weight Start Date: 06/10/22 Status: Ordered loperamide 2 mg oral capsule 2 mg, 1, capsule, By Mouth, Every 3 hours, PRN, # 30 capsule, Refills 0, Tot. Refills 0, Acute 04/19/23 11:43:00 EST, Loose Stool, 04/19/22 11:43:00 EST, Route to Pharmacy Electronically, [facility] 3, Partial fill upon patient request if... Start Date: 04/19/22 Stop Date: 04/19/23 Status: Ordered LORazepam 1 mg oral tablet 1 tablet = 1 mg, By Mouth, 3 times a day, PRN as needed for anxiety, # 90 tablet, 3 Refills, Maintenance, 06/10/22 14:21:00 EST, Tablet, [facility] #[id number], Partial fill upon patient requestif the prescription is for a schedule II opioid elijah... Start Date: 06/10/22 Stop Date: 10/08/22 Status: Ordered multivitamin Multiple Vitamins oral tablet 1 tablet, By Mouth, Daily, # 30 tablet, 1 Refills, Maintenance, 10/01/19 11:23:00 EDT, Tablet, [facility], 1 tablet By Mouth Daily,x30 days, 165.1, cm, 10/01/19 8:37:00 EDT, Height, 80.1, kg, 09/19/19 16:30:00 EDT, Dry Weight Start Date: 10/01/19 Stop Date: 11/30/19 Status: Ordered Narcan 4 mg/0.1 mL nasal spray = 4 mg, Nares, Both, Once, # 2 each, 0 Refills, Soft Stop, 04/19/22 12:16:00 EST, [facility], Partial fill upon patient [...] Maintenance,06/10/22 14:21:00 EST, Route to Pharmacy Electronically, [facility] #[id number], 165, cm, 05/25/22 14:24:00 EST, Height, 80, kg, 04/14/22 3:03:00... Start Date: 06/10/22 Stop Date: 10/08/22 Status: Ordered traMADol 50 mg oral tablet 1 tablet = 50 mg, By Mouth, Every 8 hours, 30 each, TAKE 1 TABLET BY MOUTH EVERY 8 HOURS NEEDED FOR FOR PAIN, # 30 tablet, 2 Refills, Maintenance, 06/14/22 15:23:00 EST, Tablet, [facility] #[id number], Partial fill upon patient request if the... Start Date: 06/14/22 Status: Ordered traZODone 100 mg oral tablet 100 mg, 1, tablet, By Mouth, Daily at bedtime, TAKE 1 TABLET BY MOUTH EVERY NIGHT AT BEDTIME, # 30 tablet, Refills 3, Tot. Refills 3, Maintenance, 06/10/22 14:22:00 EST, Route to Pharmacy Electronically, [facility] #[id number], Partial fill upon... Start Date: 06/10/22 Stop [...] Team Personnel Name: Marissa Malik NP Position: [facility] PCO Associate Professional Member Role: PCP Address: Address: [address] [place] [id number] Name: Elisa Lamar RN Position: [facility] RN Member Role: Primary Care Nurse Name: Zo Segal RN [facility] RN Member Role: Primary Care Nurse Name: Antonia Mtz RN Position: [facility] RN Member Role: Primary Care Nurse Name: Tiffany Ugalde RN Position: [facility] RN Member Role: Primary Care Nurse Name: Katelynn Moss RN Position: [facility] RN Member Role: Primary Care Nurse Name: Milla Emmanuel RN Position: [facility] AMB Nurse Member Role: Primary Care Nurse Name: Carol Cordova Position: [facility] RN Member Role: Primary Care Nurse Name: Katt Gustafson Position: [facility] RN Member Role: Primary Care Nurse Name: Ashely Pacheco Position: [facility] RN Member Role: Primary Care Nurse Name: Miri Espitia RN Position: [facility] Nurse Member Role: Primary Care Nurse Name: Maksim Hunt III, RN Position: [facility] RN Member Role: Primary Care Nurse Name: Elisa Fields RN Position: [facility] RN Member Role: Primary Care Nurse Name: Aron Mcginnis RN Position: [facility] SN RN Member Role: Primary Care Nurse Name: Natalia Plata RN Position: [facility] RN Member Role: Primary Care Nurse Name: Kacy Barnhart RN Position: [facility] RN Member Role: Primary Care Nurse Name: uGerline Ramirez RN Position: [facility] RN Member Role: Primary Care Nurse Name: Ashlyn Cordova RN Position: [facility] Onco RN Member Role: Primary Care Nurse Name: Jennifer Ignacio RN Position: [facility] RN Member Role: Primary Care Nurse Care Team Related Persons Name: KORY NGO Address: home [address] [address] Name: TEVIN WILL Address: [address] [place] [address] Name: ALEX WILL Address: [address] [place] [address] Name: ALEX ROPER Address: home [address] [place] [address]
--- OUTSIDE RECORDS SUMMARY | 2023-09-06 15:44 | XMS_ITS | Continuity of Care Document ---
Author Organization [facility] [place] Address [address] [place] [address]- Care Team Providers Care Environmental Compliance Inspector Name Role Phone Marissa Malik NP Primary Care Physician Encounter [facility] Date(s): 12/27/22 - 01/26/23 [facility] [place] [address] [place], [place] [address] Allergies, Adverse Reactions, Alerts [...] 11/15/22 14:23:00 EDT, Route to Pharmacy Electronically, [facility] #[id number], 165, cm, 11/10/22 10:56:00 EDT, Height, 79, kg, 11/10/22 10:56:00... Start Date: 11/15/22 Stop Date: 03/15/23 Status: Ordered acamprosate 333 mg oral delayed release tablet 2 tablet = 666 mg, By Mouth, 3 times a day, # 180 tablet, 0 Refills, Maintenance, 04/19/22 12:37:00EST, CR Tablet, [facility], Partial fill upon patient request if the prescription is for a schedule II opioid drug., 165, cm, 12/13/22 11... Start Date: 04/19/22 Stop Date: 05/19/22 Status: Ordered busPIRone 15 mg oral tablet 1 tablet = 15 mg, By Mouth, 3 times a day, # 90 tablet, 3 Refills, Maintenance, 11/15/22 14:23:00 EDT, Tablet, [facility] #[id number], Partial fill upon patient request if the prescription is for a schedule II opioid drug., 165, cm, 11/10/22 10:5... Start Date: 11/15/22 Stop Date: 03/15/23 Status: Ordered Creon 36,000 units oral delayed release capsule 1 capsule, By Mouth, 3 times a day, # 90 capsule, 3 Refills, Maintenance, 06/08/22 9:09:00 EST, [facility] #[id number], Partial fill upon patient request if the prescription is for a schedule IIopioid drug., 1 capsule By Mouth 3 times a day, 165... Start Date: 06/08/22 Status: Ordered doxepin 50 mg oral capsule 1 capsule = 50 mg, By Mouth, Daily at bedtime, # 30 capsule, 3 Refills, Maintenance, 11/15/22 14:23:00 EDT, Capsule, [facility] #[id number], 165, cm, 11/10/22 10:56:00 EDT, Height, 79, kg, 11/10/22 10:56:00 EDT, Dry Weight Start Date: 11/15/22 Stop Date: 03/15/23 Status: Ordered gabapentin 600 mg oral tablet See Instructions, 1 tablet in the morning and 2 tablets at bedtime, # 90 tablet, 3 Refills, Maintenance, 11/15/22 14:24:00 EDT, Tablet, [facility] #[id number], 165, cm, 11/10/22 10:56:00 EDT, Height, 79, kg, 11/10/22 10:56:00 EDT, Dry Weight Start Date: 11/15/22 Status: Ordered lamotrigine 25 mg oral tablet 25 mg, 1, tablet, By Mouth, Daily at bedtime, # 30 tablet, Refills 0, Tot. Refills 0, Maintenance, 01/17/23 15:31:00 EDT, Route to Pharmacy Electronically, [facility] #[id number], Partial fill upon patient request if the prescription is for a maral... Start Date: 01/17/23 Stop Date: 02/16/23 Status: Ordered LORazepam 1 mg oral tablet 1 tablet = 1 mg, By Mouth, 3 times a day, PRN as needed for anxiety, # 90 tablet, 3 Refills, Maintenance, 11/15/22 14:24:00 EDT, Tablet, [facility] #[id number], Partial fill upon patient requestif the prescription is for a schedule II opioid elijah... Start Date: 11/15/22 Stop Date: 03/15/23 Status: Ordered multivitamin Multiple Vitamins oral tablet 1 tablet, By Mouth, Daily, # 30 tablet, 1 Refills, Maintenance, 10/01/19 11:23:00 EDT, Tablet, [facility], 1 tablet By Mouth Daily,x30 days, [...] Maintenance,11/15/22 14:24:00 EDT, Route to Pharmacy Electronically, [facility] #[id number], 165, cm, 11/10/22 10:56:00 EDT, Height, 79, kg, 11/10/22 10:56:00... Start Date: 11/15/22 Stop Date: 02/13/23 Status: Ordered traZODone 100 mg oral tablet 100 mg, 1, tablet, By Mouth, Daily at bedtime, TAKE 1 TABLET BY MOUTH EVERY NIGHT AT BEDTIME, # 30 tablet, Refills 3, Tot. Refills 3, Maintenance, 11/15/22 14:24:00 EDT, Route to Pharmacy Electronically, [facility] #[id number], Partial fill upon... Start Date: 11/15/22 Stop Date: 03/15/23 Status: Ordered valACYclovir 500 mg oral tablet 500 mg, 1, tablet, By Mouth, 2 times a day, # 6 tablet, Refills 1, Tot. Refills 1, Maintenance, 11/10/22 11:16:00 EDT, Route to Pharmacy Electronically, [facility] #[id number], Partial fill uponpatient request if the prescription is for a schedu... Start Date: 11/10/22 Stop Date: 11/16/22 Status: Ordered Wellbutrin XL 150 mg/24 hours oral tablet, extended release 1 tablet = 150 mg, By Mouth, Every 24 hours, # 30 tablet, 0 Refills, Maintenance, 01/17/23 15:32:00EDT, XL Tablet, [facility] #[id number], Partial fill upon patient request if the [...] team information Care Team Personnel Name: Helena ELMarissa Position: [facility] PCO Associate Professional Member Role: PCP Address: Address: [address] [place] [address] [place], [place] [address] Name: Elisa Lamar RN Position: [facility] RN Member Role: Primary Care Nurse Name: Zo Segal RN Position: [facility] AMB Nurse Member Role: Primary Care Nurse Name: Antonia Mtz RN Position: [facility] RN Member Role: Primary Care Nurse Name: Milla Emmanuel RN Position: [facility] SN RN Member Role: Primary Care Nurse Name: Carol Min [place] Position: [facility] RN Member Role: Primary Care Nurse Name: Katt Gustafson Position: [facility] RN Member Role: Primary Care Nurse Name: Ashely Pacheco Position: [facility] RN Member Role: Primary Care Nurse Name: Miri Espitia RN Position: [facility] AMB Nurse Member Role: Primary Care Nurse Name: Maksim Hunt III, RN Position: [facility] RN Member Role: Primary Care Nurse Name: Elisa Fields RN Position: [facility] RN Member Role: Primary Care Nurse Name: Aron Mcginnis RN Position: [facility] SN RN Member Role: Primary Care Nurse Name: Natalia Plata RN Position: [facility] RN Member Role: Primary Care Nurse Name: Kacy Barnhart RN Position: [facility] RN Member Role: Primary Care Nurse Name: Guerline Ramirez RN Position: [facility] RN Member Role: Primary Care Nurse Name: Ashlyn Cordova RN Position: [facility] Onco RN Member Role: Primary Care Nurse Name: Jennifer Ignacio RN Position: [facility] RN Member Role: Primary Care Nurse Care Team Related Persons Name: TATIANNA NGOOg Address: home [address] [address] Name: TEVIN WILL Address: [address] [place] [address] Name: ALEX WILL Address: [address] [place] [address] Name: ALEX ROPER Address: [address] [place] [address]
--- OUTSIDE RECORDS SUMMARY | 2023-09-06 15:44 | XMS_ITS | Continuity of Care Document ---
Author Organization [facility] [place] Address [address] [place] [address]- Care Team Providers Care Meteorologist In Charge Name Role Phone Helena GALLEGOS, Marissa Hernandez Primary Care Physician Encounter [facility] Date(s): 12/30/22 - 01/29/23 [facility] [place] [address], [place] [address] Allergies, Adverse Reactions, Alerts Substance [...] 11/15/22 14:23:00 EDT, Route to Pharmacy Electronically, [facility] #[id number], 165, cm, 11/10/22 10:56:00 EDT, Height, 79, kg, 11/10/22 10:56:00... Start Date: 11/15/22 Stop Date: 03/15/23 Status: Ordered acamprosate 333 mg oral delayed release tablet 2 tablet = 666 mg, By Mouth, 3 times a day, # 180 tablet, 0 Refills, Maintenance, 04/19/22 12:37:00EST, CR Tablet, [facility], Partial fill upon patient request if the prescription is for a schedule II opioid drug., 165, cm, 04/19/22 11... Start Date: 04/19/22 Stop Date: 05/19/22 Status: Ordered busPIRone 15 mg oral tablet 1 tablet = 15 mg, By Mouth, 3 times a day, # 90 tablet, 3 Refills, Maintenance, 11/15/22 14:23:00 EDT, Tablet, [facility] #[id number], Partial fill upon patient request if the prescription is for a schedule II opioid drug., 165, cm, 11/10/22 10:5... Start Date: 11/15/22 Stop Date: 03/15/23 Status: Ordered Creon 36,000 units oral delayed release capsule 1 capsule, By Mouth, 3 times a day, # 90 capsule, 3 Refills, Maintenance, 06/08/22 9:09:00 EST, [facility] #[id number], Partial fill upon patient request if the prescription is for a schedule IIopioid drug., 1 capsule By Mouth 3 times a day, 165... Start Date: 06/08/22 Status: Ordered doxepin 50 mg oral capsule 1 capsule = 50 mg, By Mouth, Daily at bedtime, # 30 capsule, 3 Refills, Maintenance, 11/15/22 14:23:00 EDT, Capsule, [facility] #[id number], 165, cm, 11/10/22 10:56:00 EDT, Height, 79, kg, 11/10/22 10:56:00 EDT, Dry Weight Start Date: 11/15/22 Stop Date: 03/15/23 Status: Ordered gabapentin 600 mg oral tablet See Instructions, 1 tablet in the morning and 2 tablets at bedtime, # 90 tablet, 3 Refills, Maintenance, 11/15/22 14:24:00 EDT, Tablet, [facility] #[id number], 165, cm, 11/10/22 10:56:00 EDT, Height, 79, kg, 11/10/22 10:56:00 EDT, Dry Weight Start Date: 11/15/22 Status: Ordered lamotrigine 25 mg oral tablet 25 mg, 1, tablet, By Mouth, Daily at bedtime, # 30 tablet, Refills 0, Tot. Refills 0, Maintenance, 01/17/23 15:31:00 EDT, Route to Pharmacy Electronically, [facility] #[id number], Partial fill upon patient request if the prescription is for a maral... Start Date: 01/17/23 Stop Date: 02/16/23 Status: Ordered LORazepam 1 mg oral tablet 1 tablet = 1 mg, By Mouth, 3 times a day, PRN as needed for anxiety, # 90 tablet, 3 Refills, Maintenance, 11/15/22 14:24:00 EDT, Tablet, [facility] #[id number], Partial fill upon patient requestif the prescription is for a schedule II opioid elijah... Start Date: 11/15/22 Stop Date: 03/15/23 Status: Ordered multivitamin Multiple Vitamins oral tablet 1 tablet, By Mouth, Daily, # 30 tablet, 1 Refills, Maintenance, 10/01/19 11:23:00 EDT, Tablet, [facility], 1 tablet By Mouth Daily,x30 days, [...] Maintenance,11/15/22 14:24:00 EDT, Route to Pharmacy Electronically, [facility] #[id number], 165, cm, 11/10/22 10:56:00 EDT, Height, 79, kg, 11/10/22 10:56:00... Start Date: 11/15/22 Stop Date: 02/13/23 Status: Ordered traZODone 100 mg oral tablet 100 mg, 1, tablet, By Mouth, Daily at bedtime, TAKE 1 TABLET BY MOUTH EVERY NIGHT AT BEDTIME, # 30 tablet, Refills 3, Tot. Refills 3, Maintenance, 11/15/22 14:24:00 EDT, Route to Pharmacy Electronically, [facility] #[id number], Partial fill upon... Start Date: 11/15/22 Stop Date: 03/15/23 Status: Ordered valACYclovir 500 mg oral tablet 500 mg, 1, tablet, By Mouth, 2 times a day, # 6 tablet, Refills 1, Tot. Refills 1, Maintenance, 11/10/22 11:16:00 EDT, Route to Pharmacy Electronically, [facility] #[id number], Partial fill uponpatient request if the prescription is for a schedu... Start Date: 11/10/22 Stop Date: 11/16/22 Status: Ordered Wellbutrin XL 150 mg/24 hours oral tablet, extended release 1 tablet = 150 mg, By Mouth, Every 24 hours, # 30 tablet, 0 Refills, Maintenance, 01/17/23 15:32:00EDT, XL Tablet, [facility] #[id number], Partial fill upon patient request if the [...] Care Team Personnel Name: Helena GALLEGOS Marissa M Position: [facility] PCO Associate Professional Member Role: PCP Address: Address: [address] [place] [address] [id number] Name: Elisa Lamar RN Position: [facility] RN Member Role: Primary Care Nurse Name: Zo Segal RN Position: [facility] AMB Nurse Member Role: Primary Care Nurse Name: Antonia Mtz RN Position: [facility] RN Member Role: Primary Care Nurse Name: Milla Emmanuel RN Position: [facility] RN Member Role: Primary Care Nurse Name: Carol Min [place] Position: [facility] RN Member Role: Primary Care Nurse Name: Katt Gustafson Position: [facility] RN Member Role: Primary Care Nurse Name: Ashely Pacheco Position: [facility] RN Member Role: Primary Care Nurse Name: Miri Espitia RN Position: [facility] AMB Nurse Member Role: Primary Care Nurse Name: Maksim Hunt III, RN Position: [facility] RN Member Role: Primary Care Nurse Name: Elisa Fields RN Position: [facility] RN Member Role: Primary Care Nurse Name: Aron Mcginnis RN Position: [facility] SN RN Member Role: Primary Care Nurse Name: Natalia Plata RN Position: [facility] RN Member Role: Primary Care Nurse Name: Kacy Barnhart RN Position: [facility] RN Member Role: Primary Care Nurse Name: Guerline Ramirez RN Position: [facility] RN Member Role: Primary Care Nurse Name: Ashlyn Cordova RN Position: [facility] Onco RN Member Role: Primary Care Nurse Name: Jennifer Ignacio RN Position: [facility] RN Member Role: Primary Care Nurse Care Team Related Persons Name: KORY NGO Address: home [address] [address] Name: TEVIN WILL Address: home [address] [place] [address] Name: ALEX WILL Address: home [address] [place] [address] Name: JUDSON, ALEX Address: home [address] [place] [address]
--- OUTSIDE RECORDS SUMMARY | 2023-09-06 15:44 | XMS_ITS | Continuity of Care Document ---
Author Organization [facility] [place] Address [address] [place] [address]- Care Team Providers Care Densitometer Reader Name Role Phone Helena GALLEGOS, Marissa Hernandez Primary Care Physician Encounter [facility] Date(s): 05/18/22 - 06/17/22 [facility] [address] [place], [place] [address] Allergies, Adverse Reactions, Alerts [...] 06/10/22 14:19:00 EST, Route to Pharmacy Electronically, [facility] #[id number], 165, cm, 05/25/22 14:24:00 EST, Height, 80, kg, 04/14/22 3:03:00 E... Start Date: 06/10/22 Stop Date: 10/08/22 Status: Ordered acamprosate 333 mg oral delayed release tablet 2 tablet = 666 mg, By Mouth, 3 times a day, # 180 tablet, 0 Refills, Maintenance, 04/19/22 12:37:00EST, CR Tablet, [facility], Partial fill upon patient request if the prescription is for a schedule II opioid drug., 165, cm, 04/19/22 11... Start Date: 04/19/22 Stop Date: 05/19/22 Status: Ordered busPIRone 15 mg oral tablet 1 tablet = 15 mg, By Mouth, 3 times a day, # 90 tablet, 3 Refills, Maintenance, 06/10/22 14:24:00 EST, Tablet, [facility] #[id number], Partial fill upon patient request if the prescription is for a schedule II opioid drug., 165, cm, 05/25/22 14:2... Start Date: 06/10/22 Stop Date: 10/08/22 Status: Ordered Creon 36,000 units oral delayed release capsule 1 capsule, By Mouth, 3 times a day, # 90 capsule, 3 Refills, Maintenance, 06/08/22 9:09:00 EST, [facility] #[id number], Partial fill upon patient request if the prescription is for a schedule IIopioid drug., 1 capsule By Mouth 3 times a day, 165... Start Date: 06/08/22 Status: Ordered doxepin 50 mg oral capsule 1 capsule = 50 mg, By Mouth, Daily at bedtime, # 30 capsule, 3 Refills, Maintenance, 06/10/22 14:20:00 EST, Capsule, [facility] #[id number], 165, cm, 05/25/22 14:24:00 EST, Height, 80, kg, 04/14/22 3:03:00 EST, Dry Weight Start Date: 06/10/22 Stop Date: 10/08/22 Status: Ordered fluticasone 50 mcg/inh nasal spray See Instructions, SHAKE LIQUID AND USE 1 SPRAY IN EACH NOSTRIL TWICE DAILY, # 15.8 mL, 3 Refills, 03/23/21 16:18:00 EST, [facility] #[id number], SHAKE LIQUID AND USE 1 SPRAY IN EACH NOSTRIL TWICE DAILY, 164, cm, 03/23/21 15:58:00 EST, Height, 86.... Start Date: 03/23/21 Status: Ordered gabapentin 600 mg oral tablet See Instructions, 1 tablet in the morning and 2 tablets at bedtime, # 90 tablet, 3 Refills, Maintenance, 06/10/22 14:20:00 EST, Tablet, [facility] #[id number], 165, cm, 05/25/22 14:24:00 EST, Height, 80, kg, 04/14/22 3:03:00 EST, Dry Weight Start Date: 06/10/22 Status: Ordered loperamide 2 mg oral capsule 2 mg, 1, capsule, By Mouth, Every 3 hours, PRN, # 30 capsule, Refills 0, Tot. Refills 0, Acute 04/19/23 11:43:00 EST, Loose Stool, 04/19/22 11:43:00 EST, Route to Pharmacy Electronically, [facility], Partial fill upon patient request if... Start Date: 04/19/22 Stop Date: 04/19/23 Status: Ordered LORazepam 1 mg oral tablet 1 tablet = 1 mg, By Mouth, 3 times a day, PRN as needed for anxiety, # 90 tablet, 3 Refills, Maintenance, 06/10/22 14:21:00 EST, Tablet, [email or web address] #[id number], Partial fill upon patient requestif the prescription is for a schedule II opioid elijah... Start Date: 06/10/22 Stop Date: 10/08/22 Status: Ordered multivitamin Multiple Vitamins oral tablet 1 tablet, By Mouth, Daily, # 30 tablet, 1 Refills, Maintenance, 10/01/19 11:23:00 EDT, Tablet, [facility], 1 tablet By Mouth Daily,x30 days, 165.1, cm, 10/01/19 8:37:00 EDT, Height, 80.1, kg, 09/19/19 16:30:00 EDT, Dry Weight Start Date: 10/01/19 Stop Date: 11/30/19 Status: Ordered Narcan 4 mg/0.1 mL nasal spray = 4 mg, Nares, Both, Once, # 2 each, 0 Refills, Soft Stop, 04/19/22 12:16:00 EST, [facility], Partial fill upon [...] Maintenance,06/10/22 14:21:00 EST, Route to Pharmacy Electronically, [facility] #[id number], 165, cm, 05/25/22 14:24:00 EST, Height, 80, kg, 04/14/22 3:03:00... Start Date: 06/10/22 Stop Date: 10/08/22 Status: Ordered traMADol 50 mg oral tablet 1 tablet = 50 mg, By Mouth, Every 8 hours, 30 each, TAKE 1 TABLET BY MOUTH EVERY 8 HOURS NEEDED FOR FOR PAIN, # 30 tablet, 2 Refills, Maintenance, 06/14/22 15:23:00 EST, Tablet, [email or web address] #[id number], Partial fill upon patient request if the... Start Date: 06/14/22 Status: Ordered traZODone 100 mg oral tablet 100 mg, 1, tablet, By Mouth, Daily at bedtime, TAKE 1 TABLET BY MOUTH EVERY NIGHT AT BEDTIME, # 30 tablet, Refills 3, Tot. Refills 3, Maintenance, 06/10/22 14:22:00 EST, Route to Pharmacy Electronically, [facility] #[id number], Partial fill upon... Start Date: 06/10/22 Stop [...] Team Personnel Name: Marissa Malik NP Position[facility] PCO Associate Professional Member Role: PCP Address: Address: [address] [place] [address] Name: Elisa Lamar RN Position: [facility] RN Member Role: Primary Care Nurse Name: Zo Segal RN Position: [facility] RN Member Role: Primary Care Nurse Name: Antonia Mtz RN Position: [facility] RN Member Role: Primary Care Nurse Name: Tiffany Ugalde RN Position: [facility] RN Member Role: Primary Care Nurse Name: Katelynn Moss RN Position: [facility] RN Member Role: Primary Care Nurse Name: Milla Emmanuel RN Position: [facility] AMB Nurse Member Role: Primary Care Nurse Name: Carol Cordova Position: [facility] RN Member Role: Primary Care Nurse Name: Katt Gustafson Position: [facility] RN Member Role: Primary Care Nurse Name: Ashely Pacheco Position: [facility] RN Member Role: Primary Care Nurse Name: Miri Espitia RN Position: [facility] Nurse Member Role: Primary Care Nurse Name: Maksim Hunt III, RN Position: [facility] RN Member Role: Primary Care Nurse Name: Elisa Fields RN Position: [facility] RN Member Role: Primary Care Nurse Name: Aron Mcginnis RN Position: [facility] SN RN Member Role: Primary Care Nurse Name: Natalia Plata RN Position: [facility] RN Member Role: Primary Care Nurse Name: Kacy Barnhart RN Position: [facility] RN Member Role: Primary Care Nurse Name: Guerline Ramirez RN Position: [facility] RN Member Role: Primary Care Nurse Name: Ashlyn Cordova RN Position: [facility] Onco RN Member Role: Primary Care Nurse Name: Jennifer Ignacio RN Position: [facility] RN Member Role: Primary Care Nurse Care Team Related Persons Name: KORY NGO Address: home [address] [address] Name: TEVIN WILL Address: home [address] [place] [address] Name: ALEX WILL Address: home [address] [place] [address] Name: ALEX ROPER Address: home [address] [place] [address]
--- OUTSIDE RECORDS SUMMARY | 2023-09-06 15:44 | XMS_ITS | Continuity of Care Document ---
Author Organization [facility] ter Address [address] [place] [id number]- Care Team Providers Care Bath Tester Name Role Phone Helena GALLEGOS, Marissa Hernandez Primary Care Physician Encounter [facility] Date(s): 01/28/22 - 03/05/[address] [id number] Attending Physician: Kae GALLEGOS, Roma [...] 12/10/21 11:45:00 EDT, Route to Pharmacy Electronically, [facility] #[id number], 164, cm, 03/23/21 15:58:00 EST, Height, 86.5, kg, 04/22/20 21:53:0... Start Date: 12/10/21 Stop Date: 04/09/22 Status: Ordered albuterol 90 mcg/inh inhalation powder 1-2 puffs, Inhalation, Every 4 hours, PRN Wheezing/Shortness of Breath, # 1 each, 0 Refills, Maintenance, 04/06/21 16:30:00 EST, Powder, [facility] #[id number], Partial fill upon patient requestif the prescription is for a schedule II opioid elijah... Start Date: 04/06/21 Status: Ordered Ativan 1 mg oral tablet 1.5 tablet = 1.5 mg, By Mouth, 2 times a day, for 30 days, # 90 tablet, 3 Refills, Hard Stop 04/09/22 11:46:00 EST, 12/10/21 11:46:00 EDT, Tablet, [facility] #[id number], 164, cm, 03/23/21 15:58:00 EST, Height, 86.5, kg, 04/22/20 21:53:00 EST, Dr... Start Date: 12/10/21 Stop Date: 04/09/22 Status: Ordered Creon 12,000 units oral delayed release capsule 2 capsule, By Mouth, 3 times a day, # 180 capsule, 6 Refills, Maintenance, 01/07/20 15:10:00 EDT, [facility] #[id number], 165, cm, 11/05/19 9:49:00 EDT, Height, 81.7, kg, 10/06/19 11:25:00 EDT, Dry Weight Start Date: 01/07/20 Status: Ordered doxepin 50 mg oral capsule 1 capsule = 50 mg, By Mouth, Daily at bedtime, # 30 capsule, 3 Refills, Maintenance, 12/10/21 11:45:00 EDT, Capsule, [facility] #[id number], 164, cm, 03/23/21 15:58:00 EST, Height, 86.5, [...] 15.8 mL, 3 Refills, 03/23/21 16:18:00 EST, [facility] #[id number], SHAKE LIQUID AND USE 1 SPRAY IN EACH NOSTRIL TWICE DAILY, 164, cm, 03/23/21 15:58:00 EST, Height, 86.... Start Date: 03/23/21 Status: Ordered gabapentin 600 mg oral tablet See Instructions, 1 tablet in the morning and 2 tablets at bedtime, # 90 tablet, 3 Refills, Maintenance, 12/10/21 11:46:00 EDT, Tablet, [facility] #[id number], 164, cm, 03/23/21 15:58:00 EST, Height, 86.5, kg, 04/22/20 21:53:00 EST, Dry Weight Start Date: 12/10/21 Status: Ordered multivitamin Multiple Vitamins oral tablet 1 tablet, By Mouth, Daily, # 30 tablet, 1 Refills, Maintenance, 10/01/19 11:23:00 EDT, Tablet, [facility], 1 tablet By Mouth Daily,x30 days, [...] Maintenance,12/10/21 11:46:00 EDT, Route to Pharmacy Electronically, [facility] #[id number], 164, cm, 03/23/21 15:58:00 EST, Height, 86.5, kg, 04/22/20 21:53:... Start Date: 12/10/21 Stop Date: 04/09/22 Status: Ordered traMADol 50 mg oral tablet 1 tablet = 50 mg, By Mouth, 3 times a day, PRN Pain , Severe, nex refill to be 50 mg BID, # 90 tablet, 0 Refills, Maintenance, 03/25/21 8:59:00 EST, Tablet, [facility] #[id number], 164, cm, 03/23/21 15:58:00 EST, Height, 86.5, kg, 04/22/20 21:53:... Start Date: 03/25/21 Status: Ordered traZODone 100 mg oral tablet 100 mg, 1, tablet, By Mouth, Daily at bedtime, # 30 tablet, Refills 3, Tot. Refills 3, Maintenance,12/10/21 11:47:00 EDT, Route to Pharmacy Electronically, [facility] #[id number], 164, cm, 03/23/21 15:58:00 EST, Height, 86.5, kg, 04/22/20 21:53:... Start Date: 12/10/21 Stop Date: 04/09/22 Status: Ordered Zoloft 100 mg oral tablet 2 tablet = 200 mg, By Mouth, Daily, # 60 tablet, 1 Refills, Maintenance, 12/10/21 11:46:00 EDT, Tablet, [facility] #[id number], 164, cm, 03/23/21 15:58:00 EST, Height, 86.5, [...] Personnel Name: Marissa Malik NP Address: Address: [address] [place] [address] [place], [place] [address]
--- OUTSIDE RECORDS SUMMARY | 2023-09-06 15:44 | XMS_ITS | Continuity of Care Document ---
Author Organization [facility] ter Address [address] [place] [address]- Care Team Providers Care Bag Liner Name Role Phone Marissa Malik NP Primary Care Physician Encounter [facility] Date(s): 02/22/22 - 02/24/[address] [address] Encounter Diagnosis Abdominal pain(Final) - 02/22/22 Alcohol use(Final) - 02/22/22 Discharge Disposition: A-D/C Home Attending Physician: Sheldon Santos MD Admitting Physician: Randi Segura MD Referring Physician: Not on Staff, Referring [...] 12/10/21 11:45:00 EDT, Route to Pharmacy Electronically, [facility] #[id number], 164, cm, 03/23/21 15:58:00 EST, Height, 86.5, kg, 04/22/20 21:53:0... Start Date: 12/10/21 Stop Date: 04/09/22 Status: Ordered albuterol 90 mcg/inh inhalation powder 1-2 puffs, Inhalation, Every 4 hours, PRN Wheezing/Shortness of Breath, # 1 each, 0 Refills, Maintenance, 04/06/21 16:30:00 EST, Powder, [facility] #[id number], Partial fill upon patient requestif the prescription is for a schedule II opioid elijah... Start Date: 04/06/21 Status: Ordered amoxicillin-clavulanate 875 mg-125 mg oral tablet 1 tablet, By Mouth, 2 times a day, for 6 days, # 12 tablet, 0 Refills, Acute 03/02/22 11:15:00 EDT,02/24/22 11:15:00 EDT, Tablet, [facility] #[id number], Partial fill upon patient request if the prescription is for a schedule II opioid drug., 16... Start Date: 02/24/22 Stop Date: 03/02/22 Status: Ordered Ativan 1 mg oral tablet 1.5 tablet = 1.5 mg, By Mouth, 2 times a day, for 30 days, # 90 tablet, 3 Refills, Hard Stop 04/09/22 11:46:00 EST, 12/10/21 11:46:00 EDT, Tablet, [facility] #[id number], 164, cm, 03/23/21 15:58:00 EST, Height, 86.5, kg, 04/22/20 21:53:00 EST, Dr... Start Date: 12/10/21 Stop Date: 04/09/22 Status: Ordered Creon 12,000 units oral delayed release capsule 2 capsule, By Mouth, 3 times a day, # 180 capsule, 6 Refills, Maintenance, 01/07/20 15:10:00 EDT, [facility] #[id number], 165, cm, 11/05/19 9:49:00 EDT, Height, 81.7, kg, 10/06/19 11:25:00 EDT, Dry Weight Start Date: 01/07/20 Status: Ordered doxepin 50 mg oral capsule 1 capsule = 50 mg, By Mouth, Daily at bedtime, # 30 capsule, 3 Refills, Maintenance, 12/10/21 11:45:00 EDT, Capsule, [facility] #[id number], 164, cm, 03/23/21 15:58:00 EST, Height, 86.5, [...] 15.8 mL, 3 Refills, 03/23/21 16:18:00 EST, [facility] #[id number], SHAKE LIQUID AND USE 1 SPRAY IN EACH NOSTRIL TWICE DAILY, 164, cm, 03/23/21 15:58:00 EST, Height, 86.... Start Date: 03/23/21 Status: Ordered gabapentin 300 mg oral capsule 600 mg, Capsule, By Mouth, 02/24/22 9:00:00 EDT Start Date: 02/24/22 Stop Date: 02/24/22 Status: Completed gabapentin 600 mg oral tablet See Instructions, 1 tablet in the morning and 2 tablets at bedtime, # 90 tablet, 3 Refills, Maintenance, 12/10/21 11:46:00 EDT, Tablet, [facility] #[id number], 164, cm, 03/23/21 15:58:00 EST, Height, 86.5, kg, 04/22/20 21:53:00 EST, Dry Weight Start Date: 12/10/21 Status: Ordered MorPHINE Inj 1 mg, Injection, IV Push Slowly, Every 4 hours, Hold for: sbp<100 or rr<12 or oversedation, PRN for Pain , Severe, Routine, 02/23/22 0:19:00 EDT Start Date: 02/23/22 Stop Date: 02/24/22 Status: Discontinued multivitamin Multiple Vitamins oral tablet 1 tablet, By Mouth, Daily, # 30 tablet, 1 Refills, Maintenance, 10/01/19 11:23:00 EDT, Tablet, [facility]-, 1 tablet By Mouth Daily,x30 days, [...] prazosin 5 mg oral capsule 5 mg, Capsule, By Mouth, 02/23/22 21:00:00 EDT Start Date: 02/23/22 Stop Date: 02/23/22 Status: Completed prazosin 5 mg oral capsule 5 mg, 1, capsule, By Mouth, Daily at bedtime, # 30 capsule, Refills 3, Tot. Refills 3, Maintenance,12/10/21 11:46:00 EDT, Route to Pharmacy Electronically, [facility] #[id number], 164, cm, 03/23/21 15:58:00 EST, Height, 86.5, kg, 04/22/20 21:53:... Start Date: 12/10/21 Stop Date: 04/09/22 Status: Ordered traMADol 50 mg oral tablet 1 tablet = 50 mg, By Mouth, 3 times a day, PRN Pain , Severe, nex refill to be 50 mg BID, # 90 tablet, 0 Refills, Maintenance, 03/25/21 8:59:00 EST, Tablet, [facility] #[id number], 164, cm, 03/23/21 15:58:00 EST, Height, 86.5, kg, 04/22/20 21:53:... Start Date: 03/25/21 Status: Ordered traZODone 100 mg oral tablet 100 mg, 1, tablet, By Mouth, Daily at bedtime, # 30 tablet, Refills 3, Tot. Refills 3, Maintenance,12/10/21 11:47:00 EDT, Route to Pharmacy Electronically, [facility] #[id number], 164, cm, 03/23/21 15:58:00 EST, Height, 86.5, kg, 04/22/20 21:53:... Start Date: 12/10/21 Stop Date: 04/09/22 Status: Ordered Zoloft 100 mg oral tablet 2 tablet = 200 mg, By Mouth, Daily, # 60 tablet, 1 Refills, Maintenance, 12/10/21 11:46:00 EDT, Tablet, [facility] #[id number], 164, cm, 03/23/21 15:58:00 EST, Height, 86.5, [...] Exam Date Time Procedure Performing Provider Status 02/22/22 7:57 PM Foot Min 3 Views Right Leon Burch; Auth (Verified) Notes: (Foot Min 3 Views Right) Reason For Exam: hx screw in foot, feels it coming out;Foreign Body RESULT: Foot Min 3 Views Right Foot Min 3 Views Right, 3 views Hx of Present Illness: Pt from home with abd pain. Pt reports feels similar to pancreatitis pain..;Reason: Foreign Body; hx screw in foot, feels it coming out; Clinical Question(s): Foreign Body; screw dislodged? COMPARISON: 09/17/2020 FINDINGS: No fractures or bone lesions. Alignment and bone mineralization are preserved. A fifth metatarsal screw is unchanged in position. No arthritic changes. There is no new foreign body. Normal soft tissues. IMPRESSION: No acute fracture. No change in the appearance of the fifth metatarsal screw. No new foreign body. WSN: [id number] Ordering Physician: Tiffany Jurado Dictated By: Alessandra Monroe MD Dictated Date/Time: 02/22/22 8:04 pm Reviewed By: Alessandra Monroe MD Signed By: Alessandra Monroe MD Signed Date/Time: 02/22/22 8:04 pm Transcribed By: DIPESH Transcribed Date/Time: 02/22/22 8:03 pm Vital Signs Most recent to oldest [Reference Range]: 1 2 3 Height 165 cm (02/23/22 11:48 PM) 165 cm (02/23/22 7:40 PM) 165 cm (02/23/22 3:36 PM) Weight 83 kg (02/23/22 12:48 AM) 83 kg (02/23/22 12:12 AM) Oxygen Saturation [94-100 %] 86 % *L* (02/24/22 7:00 AM) 91 % *L* (02/23/22 11:48 PM) 95 % (02/23/22 7:40 PM) Pulse Rate [55-90 bpm] 85 bpm (02/24/22 7:00 AM) 77 bpm (02/23/22 11:48 PM) 62 bpm (02/23/22 7:40 PM) Body Mass Index [18.5-24.99 kg/m2] 30.49 kg/m2 *>HHI* (02/23/22 12:48 AM) Blood Pressure [90-138/55-84 mm Hg] 131/76mm Hg (02/24/22 7:00 AM) 103/66mm Hg (02/23/22 11:48 PM) 125/77mm Hg (02/23/22 8:39 PM) Respiratory Rate [16-30 br/min] 16 br/min (02/24/22 9:47 AM) 18 br/min (02/24/22 7:00 AM) 18 br/min (02/24/22 3:03 AM) Temperature [96.8-100.4 DegF] 98.7 DegF (02/24/22 7:00 AM) 98.2 DegF (02/23/22 11:48 PM) 98.1 DegF (02/23/22 7:40 PM) Mode of Delivery (Oxygen) Room air (02/24/22 7:00 AM) Room air (02/23/22 11:48 PM) Room air (02/23/22 7:40 PM) Blood pressure sites Arm, left (02/24/22 7:00 AM) Arm, right (02/23/22 11:48 PM) Arm, right (02/23/22 7:40 PM) Temperature Route Oral (02/24/22 7:00 AM) Oral (02/23/22 11:48 PM) Oral (02/23/22 7:40 PM) Dry Weight 83 kg (02/23/22 12:48 AM) Social History Social History Type Response Smoking Status Current every day sm oker; Tobacco user in household: Yes entered on: 05/01/14 Sex XR Foot - right GE 3 Views * BHSPowerscribe , CIS S: TRANSCRIBE Alessandra Monroe MD: VERIFY Event Display: Result: Authored Date: Foot Min 3 Views Right, 3 views Hx of Present Illness: Pt from home with abd pain. Pt reports feels similar to pancreatitis pain..;Reason: Foreign Body; hx screw in foot, feels it coming out; Clinical Question(s): Foreign Body; screw dislodged? COMPARISON: 09/17/2020 FINDINGS: No fractures or bone lesions. Alignment and bone mineralization are preserved. A fifth metatarsal screw is unchanged in position. No arthritic changes. There is no new foreign body. Normal soft tissues. IMPRESSION: No acute fracture. No change in the appearance of the fifth metatarsal screw. No new foreign body. WSN: [id number] Ordering Physician: Tiffany Jurado Dictated By: Alessandra Monroe MD Dictated Date/Time: 02/22/22 8:04 pm Reviewed By: Alessandra Monroe MD Signed By: Alessandra Monroe MD Signed Date/Time: 02/22/22 8:04 pm Transcribed By: DIPESH Transcribed Date/Time: 02/22/22 8:03 pm Patient Care team information Personnel Name: Marissa Malik NP Address: Address: [address] [place] [address] [place] [address]
--- OUTSIDE RECORDS SUMMARY | 2023-09-06 15:44 | XMS_ITS | Continuity of Care Document ---
Author Organization [facility] Address [address] [place] [address]- Care Team Providers Care Community Engagement Representative Name Role Phone Marissa Malik NP Primary Care Physician [phone] Encounter [facility] Date(s): 01/28/22 - 02/27/22 [facility] [address] [place], [place] [address] Allergies, Adverse Reactions, Alerts [...] 12/10/21 11:45:00 EDT, Route to Pharmacy Electronically, [facility] #[id number], 164, cm, 03/23/21 15:58:00 EST, Height, 86.5, kg, 04/22/20 21:53:0... Start Date: 12/10/21 Stop Date: 04/09/22 Status: Ordered albuterol 90 mcg/inh inhalation powder 1-2 puffs, Inhalation, Every 4 hours, PRN Wheezing/Shortness of Breath, # 1 each, 0 Refills, Maintenance, 04/06/21 16:30:00 EST, Powder, [facility] #[id number], Partial fill upon patient requestif the prescription is for a schedule II opioid elijah... Start Date: 04/06/21 Status: Ordered amoxicillin-clavulanate 875 mg-125 mg oral tablet 1 tablet, By Mouth, 2 times a day, for 6 days, # 12 tablet, 0 Refills, Acute 03/02/22 11:15:00 EDT,02/24/22 11:15:00 EDT, Tablet, [facility] #[id number], Partial fill upon patient request if the prescription is for a schedule II opioid drug., 16... Start Date: 02/24/22 Stop Date: 03/02/22 Status: Ordered Ativan 1 mg oral tablet 1.5 tablet = 1.5 mg, By Mouth, 2 times a day, for 30 days, # 90 tablet, 3 Refills, Hard Stop 04/09/22 11:46:00 EST, 12/10/21 11:46:00 EDT, Tablet, [facility] #[id number], 164, cm, 03/23/21 15:58:00 EST, Height, 86.5, kg, 04/22/20 21:53:00 EST, Dr... Start Date: 12/10/21 Stop Date: 04/09/22 Status: Ordered Creon 12,000 units oral delayed release capsule 2 capsule, By Mouth, 3 times a day, # 180 capsule, 6 Refills, Maintenance, 01/07/20 15:10:00 EDT, [facility] #[id number], 165, cm, 11/05/19 9:49:00 EDT, Height, 81.7, kg, 10/06/19 11:25:00 EDT, Dry Weight Start Date: 01/07/20 Status: Ordered doxepin 50 mg oral capsule 1 capsule = 50 mg, By Mouth, Daily at bedtime, # 30 capsule, 3 Refills, Maintenance, 12/10/21 11:45:00 EDT, Capsule, [facility] #[id number], 164, cm, 03/23/21 15:58:00 EST, Height, 86.5, [...] 15.8 mL, 3 Refills, 03/23/21 16:18:00 EST, [facility] #[id number], SHAKE LIQUID AND USE 1 SPRAY IN EACH NOSTRIL TWICE DAILY, 164, cm, 03/23/21 15:58:00 EST, Height, 86.... Start Date: 03/23/21 Status: Ordered gabapentin 600 mg oral tablet See Instructions, 1 tablet in the morning and 2 tablets at bedtime, # 90 tablet, 3 Refills, Maintenance, 12/10/21 11:46:00 EDT, Tablet, [facility] #22659, 164, cm, 03/23/21 15:58:00 EST, Height, 86.5, kg, 04/22/20 21:53:00 EST, Dry Weight Start Date: 12/10/21 Status: Ordered multivitamin Multiple Vitamins oral tablet 1 tablet, By Mouth, Daily, # 30 tablet, 1 Refills, Maintenance, 10/01/19 11:23:00 EDT, Tablet, [facility]-, 1 tablet By Mouth Daily,x30 [...] Maintenance,12/10/21 11:46:00 EDT, Route to Pharmacy Electronically, [facility] #[id number], 164, cm, 03/23/21 15:58:00 EST, Height, 86.5, kg, 04/22/20 21:53:... Start Date: 12/10/21 Stop Date: 04/09/22 Status: Ordered traMADol 50 mg oral tablet 1 tablet = 50 mg, By Mouth, 3 times a day, PRN Pain , Severe, nex refill to be 50 mg BID, # 90 tablet, 0 Refills, Maintenance, 03/25/21 8:59:00 EST, Tablet, [facility] #23681, 164, cm, 03/23/21 15:58:00 EST, Height, 86.5, kg, 04/22/20 21:53:... Start Date: 03/25/21 Status: Ordered traZODone 100 mg oral tablet 100 mg, 1, tablet, By Mouth, Daily at bedtime, # 30 tablet, Refills 3, Tot. Refills 3, Maintenance,12/10/21 11:47:00 EDT, Route to Pharmacy Electronically, [facility] #[id number], 164, cm, 03/23/21 15:58:00 EST, Height, 86.5, kg, 04/22/20 21:53:... Start Date: 12/10/21 Stop Date: 04/09/22 Status: Ordered Zoloft 100 mg oral tablet 2 tablet = 200 mg, By Mouth, Daily, # 60 tablet, 1 Refills, Maintenance, 12/10/21 11:46:00 EDT, Tablet, [facility] #[id number], 164, cm, 03/23/21 15:58:00 EST, Height, 86.5, [...] Personnel Name: Marissa Malik NP Address: Address: [address] [place] [address] Primary [address] [facility] [place], [place] [address]
--- OUTSIDE RECORDS SUMMARY | 2023-09-06 15:44 | XMS_ITS | Continuity of Care Document ---
Author Organization [facility] Address [address] [place] [address]- Care Team Providers Care Room Service Food Server Name Role Phone Helena GALLEGOS, Marissa Hernandez Primary Care Physician [phone] [facility] Date(s): 05/05/23 - 06/04/23 [facility] [address] [place], [place] [address] [...] 02/03/23 13:42:00 EDT, Route to Pharmacy Electronically, [facility] #[id number], 166, cm, 12/16/22 17:39:00 EDT, Height, 77, kg, 12/12/22 16:21:00... Start Date: 02/03/23 Stop Date: 08/02/23 Status: Ordered Albuterol (Eqv-ProAir HFA) 90 mcg/inh inhalation aerosol 2 puffs, Inhalation, Every 6 hours, # 8.5 Gm, 0 Refills, Maintenance, 02/17/23 18:07:00 EDT, [facility] #[id number], Partial fill upon patient request if the [...] 1 Refills, Maintenance, 02/03/23 13:43:00 EDT, Tablet, [facility] #57249, Partial fill upon patient request if the prescription is for a schedule II opioid drug., 166, cm, 12/16/22 17:... Start Date: 02/03/23 Stop Date: 08/02/23 Status: Ordered Creon 36,000 units oral delayed release capsule 1 capsule, By Mouth, 3 times a day, # 90 capsule, 3 Refills, Maintenance, 06/08/22 9:09:00 EST, [facility] #39897, Partial fill upon patient request if the prescription is for a schedule IIopioid drug., 1 capsule By Mouth 3 times a day, 165... Start Date: 06/08/22 Status: Ordered doxepin 50 mg oral capsule 1 capsule = 50 mg, By Mouth, Daily at bedtime, # 90 capsule, 1 Refills, Maintenance, 02/03/23 13:43:00 EDT, Capsule, [facility] #[id number], 166, cm, 12/16/22 17:39:00 EDT, Height, 77, kg, 12/12/22 16:21:00 EDT, Dry Weight Start Date: 02/03/23 Stop Date: 08/02/23 Status: Ordered gabapentin 600 mg oral tablet See Instructions, 1 tablet in the morning and 2 tablets at bedtime, # 270 tablet, 1 Refills, Maintenance, 02/03/23 13:43:00 EDT, Tablet, [facility] #[id number], 90 day supply, 166, cm, 12/16/22 17:39:00 [...] Maintenance,02/03/23 13:43:00 EDT, Route to Pharmacy Electronically, [facility] #[id number], Partial fill upon patient request if the prescription is for a sc... Start Date: 02/03/23 Stop Date: 08/02/23 Status: Ordered LORazepam 1 mg oral tablet 1 tablet = 1 mg, By Mouth, 2 times a day, PRN as needed for anxiety, # 60 tablet, 1 Refills, Maintenance, 04/28/23 13:31:00 EST, Tablet, [facility] #[id number], Partial fill upon patient requestif the prescription [...] 1 Refills, Maintenance, 10/01/19 11:23:00 EDT, Tablet, [facility]-, 1 tablet By Mouth Daily,x30 days, 165.1, [...] Maintenance,02/03/23 13:47:00 EDT, Route to Pharmacy Electronically, [facility] #[id number], 166, cm, 12/16/22 17:39:00 EDT, Height, 77, kg, 12/12/22 16:21:00... Start Date: 02/03/23 Stop Date: 08/02/23 Status: Ordered traZODone 100 mg oral tablet 100 mg, 1, tablet, By Mouth, Daily at bedtime, TAKE 1 TABLET BY MOUTH EVERY NIGHT AT BEDTIME, # 90 tablet, Refills 1, Tot. Refills 1, Maintenance, 02/03/23 13:46:00 EDT, Route to Pharmacy Electronically, [facility] #[id number], Partial fill upon... Start Date: 02/03/23 Stop Date: 08/02/23 Status: Ordered Wellbutrin XL 150 mg/24 hours oral tablet, extended release 1 tablet = 150 mg, By Mouth, Every 24 hours, # 90 tablet, 1 Refills, Maintenance, 02/03/23 13:43:00EDT, XL Tablet, [facility] #[id number], Partial fill upon patient request if the [...] Team Personnel Name: Marissa Malik NP Position: [facility] PCO Associate Professional Member Role: PCP Address: Address: [address] [place] [id number] Name: Elisa Lamar RN Position: [facility] RN Member Role: Primary Care Nurse Name: Zo Segal RN Position: [facility] Nurse Member Role: Primary Care Nurse Name: Antonia Mtz RN Position: [facility] RN Member Role: Primary Care Nurse Name: Milla Emmanuel RN Position: [facility] RN Member Role: Primary Care Nurse Name: Carol Min [place] Position: [facility] RN Member Role: Primary Care Nurse Name: Katt Gustafson Position: [facility] RN Member Role: Primary Care Nurse Name: Ashely Pacheco Position: [facility] RN Member Role: Primary Care Nurse Name: Miri Espitia RN Position: [facility] Nurse Member Role: Primary Care Nurse Name: Maksim Hunt III, RN Position: [facility] RN Member Role: Primary Care Nurse Name: Eilsa Fields RN Position: [facility] RN Member Role: Primary Care Nurse Name: Aron Mcginnis RN Position: [facility] RN Member Role: Primary Care Nurse Name: Natalia Plata RN Position: [facility] RN Member Role: Primary Care Nurse Name: Kacy Barnhart RN Position: S RN Member Role: Primary Care Nurse Name: Guerline Ramirez RN Position: [facility] Onco RN Member Role: Primary Care Nurse Name: Ashlyn Cordova RN Position: [facility] Onco RN Member Role: Primary Care Nurse Name: Jennifer Ignacio RN Position: [facility] RN Member Role: Primary Care Nurse Care Team Related Persons Name: KORY NGO Address: home [address] [address] Name: TEVIN WILL Address: home [address] [place] [address] Name: ALEX WILL Address: home [address] [place] [address] Name: ALEX ROPER Address: home [address] [place] [address]
--- OUTSIDE RECORDS SUMMARY | 2023-09-06 15:44 | XMS_ITS | Continuity of Care Document ---
Author Organization [facility] Address [address] [place] [address]- Care Team Providers Care Top Spotter Name Role Phone Marissa Malik NP Primary Care Physician Encounter [facility] R [id number] Date(s): 12/16/22 - 12/23/22 [facility] [address] [place] [address]- Attending Physician: Tino Ruiz MD Referring Physician: Marissa Malik NP Allergies, Adverse Reactions, Alerts Substance Reaction [...] 11/15/22 14:23:00 EDT, Route to Pharmacy Electronically, [facility] #[id number], 165, cm, 11/10/22 10:56:00 EDT, Height, 79, kg, 11/10/22 10:56:00... Start Date: 11/15/22 Stop Date: 03/15/23 Status: Ordered acamprosate 333 mg oral delayed release tablet 2 tablet = 666 mg, By Mouth, 3 times a day, # 180 tablet, 0 Refills, Maintenance, 04/19/22 12:37:00EST, CR Tablet, [facility], Partial fill upon patient request if the prescription is for a schedule II opioid drug., 165, cm, 04/19/22 11... Start Date: 04/19/22 Stop Date: 05/19/22 Status: Ordered busPIRone 15 mg oral tablet 1 tablet = 15 mg, By Mouth, 3 times a day, # 90 tablet, 3 Refills, Maintenance, 11/15/22 14:23:00 EDT, Tablet, [facility] #[id number], Partial fill upon patient request if the prescription is for a schedule II opioid drug., 165, cm, 11/10/22 10:5... Start Date: 11/15/22 Stop Date: 03/15/23 Status: Ordered Creon 36,000 units oral delayed release capsule 1 capsule, By Mouth, 3 times a day, # 90 capsule, 3 Refills, Maintenance, 06/08/22 9:09:00 EST, [facility] #[id number], Partial fill upon patient request if the prescription is for a schedule IIopioid drug., 1 capsule By Mouth 3 times a day, 165... Start Date: 06/08/22 Status: Ordered doxepin 50 mg oral capsule 1 capsule = 50 mg, By Mouth, Daily at bedtime, # 30 capsule, 3 Refills, Maintenance, 11/15/22 14:23:00 EDT, Capsule, [facility] #[id number], 165, cm, 11/10/22 10:56:00 EDT, Height, 79, kg, 11/10/22 10:56:00 EDT, Dry Weight Start Date: 11/15/22 Stop Date: 03/15/23 Status: Ordered gabapentin 600 mg oral tablet See Instructions, 1 tablet in the morning and 2 tablets at bedtime, # 90 tablet, 3 Refills, Maintenance, 11/15/22 14:24:00 EDT, Tablet, [facility] #[id number], 165, cm, 11/10/22 10:56:00 EDT, Height, 79, kg, 11/10/22 10:56:00 EDT, Dry Weight Start Date: 11/15/22 Status: Ordered LORazepam 1 mg oral tablet 1 tablet = 1 mg, By Mouth, 3 times a day, PRN as needed for anxiety, # 90 tablet, 3 Refills, Maintenance, 11/15/22 14:24:00 EDT, Tablet, [facility] #[id number], Partial fill upon patient requestif the prescription is for a schedule II opioid elijah... Start Date: 11/15/22 Stop Date: 03/15/23 Status: Ordered multivitamin Multiple Vitamins oral tablet 1 tablet, By Mouth, Daily, # 30 tablet, 1 Refills, Maintenance, 10/01/19 11:23:00 EDT, Tablet, [id number], 1 tablet By Mouth Daily,x30 days, 165.1, [...] Maintenance,11/15/22 14:24:00 EDT, Route to Pharmacy Electronically, [facility] #[id number], 165, cm, 11/10/22 10:56:00 EDT, Height, 79, kg, 11/10/22 10:56:00... Start Date: 11/15/22 Stop Date: 02/13/23 Status: Ordered traZODone 100 mg oral tablet 100 mg, 1, tablet, By Mouth, Daily at bedtime, TAKE 1 TABLET BY MOUTH EVERY NIGHT AT BEDTIME, # 30 tablet, Refills 3, Tot. Refills 3, Maintenance, 11/15/22 14:24:00 EDT, Route to Pharmacy Electronically, [facility] #[id number], Partial fill upon... Start Date: 11/15/22 Stop Date: 03/15/23 Status: Ordered valACYclovir 500 mg oral tablet 500 mg, 1, tablet, By Mouth, 2 times a day, # 6 tablet, Refills 1, Tot. Refills 1, Maintenance, 11/10/22 11:16:00 EDT, Route to Pharmacy Electronically, [facility] #[id number], Partial fill uponpatient request if the prescription [...] recent to oldest [Reference Range]: 1 Height 166 cm (12/16/22 5:39 PM) Oxygen Saturation [94-100 %] 100 % (12/16/22 5:39 PM) Pulse Rate [55-90 bpm] 93 bpm *H* (12/16/22 5:39 PM) Blood Pressure [90-138/55-84 mm Hg] 113/ 78mm Hg (12/16/22 5:39 PM) Respiratory Rate [16-30 br/min] 18 br/mi n (12/16/22 5:39 PM) Temperature [96.8-100.4 DegF] 98.0 DegF (12/16/22 5:39 PM) Mode of Delivery (Oxygen) Room air (12/16/22 5:39 PM) Blood pressure sites Arm, left (12/16/22 5:39 PM) Temperature Route Temporal (12/16/22 5:39 PM) Social History Social History Type Response Smoking Status Current every day sm oker; Tobacco user in household: Yes entered on: 05/01/14 Sex Patient Care team information Care Team Personnel Name: Helena ELMarissa Position: [facility] PCO Associate Professional Member Role: PCP Address: Address: [address] [place] [id number] Name: Elisa Lamar RN Position: [facility] RN Member Role: Primary Care Nurse Name: Zo Segal RN Position: [facility] AMB Nurse Member Role: Primary Care Nurse Name: Antonia Mtz RN Position: [facility] RN Member Role: Primary Care Nurse Name: Milla Emmanuel RN Position: [facility] SN RN Member Role: Primary Care Nurse Name: Carol Min [place] Position: [facility] RN Member Role: Primary Care Nurse Name: Katt Gustafson Position: [facility] RN Member Role: Primary Care Nurse Name: Ashely Pacheco Position: [facility] RN Member Role: Primary Care Nurse Name: Miri Espitia RN Position: [facility] [...] Persons Name: TATIANNA NGOOg Address: home [address] [facility] [address] [place] [id number] Name: TEVIN WILL Address: home [address] [place] [address] Name: ALEX WILL Address: home [address] [place] [address] Name: ALEX ROPER Address: home [address] [place] [address] BRENDA CRANE [id number]
--- OUTSIDE RECORDS SUMMARY | 2023-09-06 15:44 | XMS_ITS | Continuity of Care Document ---
Author Organization [facility] Primary Car e [place] Address [address] [place] [address]- Care Team Providers Care Pinsetter Mechanic Automatic Name Role Phone Helena GALLEGOS, Marissa Hernandez Primary Care Physician Encounter [facility] Date(s): 01/17/23 - 02/16/23 [facility] Care [place] [address], [place] [address] Allergies, Adverse Reactions, Alerts [...] 02/03/23 13:42:00 EDT, Route to Pharmacy Electronically, [facility] #[id number], 166, cm, 12/16/22 17:39:00 EDT, Height, 77, kg, 12/12/22 16:21:00... Start Date: 02/03/23 Stop Date: 08/02/23 Status: Ordered acamprosate 333 mg oral delayed release tablet 2 tablet = 666 mg, By Mouth, 3 times a day, # 180 tablet, 0 Refills, Maintenance, 04/19/22 12:37:00EST, CR Tablet, [facility], Partial fill upon patient request if the prescription is for a schedule II opioid drug., 165, cm, 04/19/22 11... Start Date: 04/19/22 Stop Date: 05/19/22 Status: Ordered busPIRone 15 mg oral tablet 1 tablet = 15 mg, By Mouth, 3 times a day, # 270 tablet, 1 Refills, Maintenance, 02/03/23 13:43:00 EDT, Tablet, [facility] #[id number], Partial fill upon patient request if the prescription is for a schedule II opioid drug., 166, cm, 12/16/22 17:... Start Date: 02/03/23 Stop Date: 08/02/23 Status: Ordered Creon 36,000 units oral delayed release capsule 1 capsule, By Mouth, 3 times a day, # 90 capsule, 3 Refills, Maintenance, 06/08/22 9:09:00 EST, [facility] #[id number], Partial fill upon patient request if the prescription is for a schedule IIopioid drug., 1 capsule By Mouth 3 times a day, 165... Start Date: 06/08/22 Status: Ordered doxepin 50 mg oral capsule 1 capsule = 50 mg, By Mouth, Daily at bedtime, # 90 capsule, 1 Refills, Maintenance, 02/03/23 13:43:00 EDT, Capsule, [facility] #[id number], 166, cm, 12/16/22 17:39:00 EDT, Height, 77, kg, 12/12/22 16:21:00 EDT, Dry Weight Start Date: 02/03/23 Stop Date: 08/02/23 Status: Ordered gabapentin 600 mg oral tablet See Instructions, 1 tablet in the morning and 2 tablets at bedtime, # 270 tablet, 1 Refills, Maintenance, 02/03/23 13:43:00 EDT, Tablet, [facility] #[id number], 90 day supply, 166, cm, 12/16/22 17:39:00 EDT, Height, 77, kg, 12/12/22 16:21:00 EDT,... Start Date: 02/03/23 Status: Ordered lamotrigine 25 mg oral tablet 75 mg, 3, tablet, By Mouth, Daily at bedtime, # 270 tablet, Refills 1, Tot. Refills 1, Maintenance,02/03/23 13:43:00 EDT, Route to Pharmacy Electronically, [facility] #[id number], Partial fill upon patient request if the prescription is for a sc... Start Date: 02/03/23 Stop Date: 08/02/23 Status: Ordered LORazepam 1 mg oral tablet 1 tablet = 1 mg, By Mouth, 3 times a day, PRN as needed for anxiety, # 90 tablet, 3 Refills, Maintenance, 02/03/23 13:44:00 EDT, Tablet, [facility] #[id number], Partial fill upon patient requestif the prescription is for a schedule II opioid elijah... Start Date: 02/03/23 Stop Date: 06/03/23 Status: Ordered multivitamin Multiple Vitamins oral tablet 1 tablet, By Mouth, Daily, # 30 tablet, 1 Refills, Maintenance, 10/01/19 11:23:00 EDT, Tablet, [facility], 1 tablet By Mouth Daily,x30 [...] Maintenance,02/03/23 13:47:00 EDT, Route to Pharmacy Electronically, [facility] #[id number], 166, cm, 12/16/22 17:39:00 EDT, Height, 77, kg, 12/12/22 16:21:00... Start Date: 02/03/23 Stop Date: 08/02/23 Status: Ordered traZODone 100 mg oral tablet 100 mg, 1, tablet, By Mouth, Daily at bedtime, TAKE 1 TABLET BY MOUTH EVERY NIGHT AT BEDTIME, # 90 tablet, Refills 1, Tot. Refills 1, Maintenance, 02/03/23 13:46:00 EDT, Route to Pharmacy Electronically, [facility] #[id number], Partial fill upon... Start Date: 02/03/23 Stop Date: 08/02/23 Status: Ordered valACYclovir 500 mg oral tablet 500 mg, 1, tablet, By Mouth, 2 times a day, # 6 tablet, Refills 1, Tot. Refills 1, Maintenance, 11/10/22 11:16:00 EDT, Route to Pharmacy Electronically, [facility] #[id number], Partial fill uponpatient request if the prescription is for a schedu... Start Date: 11/10/22 Stop Date: 11/16/22 Status: Ordered Wellbutrin XL 150 mg/24 hours oral tablet, extended release 1 tablet = 150 mg, By Mouth, Every 24 hours, # 90 tablet, 1 Refills, Maintenance, 02/03/23 13:43:00EDT, XL Tablet, [facility] #[id number], Partial fill upon patient request if the [...] Care Team Personnel Name: Helena ELMarissa Position: [facility] PCO Associate Professional Member Role: PCP Address: Address: [address] [place] [id number] Name: Elisa Lamar RN Position: [facility] RN Member Role: Primary Care Nurse Name: Zo Segal RN Position: [facility] AMB Nurse Member Role: Primary Care Nurse Name: Antonia Mtz RN Position: [facility] RN Member Role: Primary Care Nurse Name: Milla Emmanuel RN Position: [facility] SN RN Member Role: Primary Care Nurse Name: Carol Min [place] Position: [facility] RN Member Role: Primary Care Nurse Name: Katt Gustafson Position: [facility] RN Member Role: Primary Care Nurse Name: Ashely Pacheco Position: [facility] RN Member Role: Primary Care Nurse Name: Miri Espitia RN Position: [facility] AMB Nurse Member Role: Primary Care Nurse Name: Maksim Hunt III, RN Position: [facility] RN Member Role: Primary Care Nurse Name: Elisa Fields RN Position: [facility] RN Member Role: Primary Care Nurse Name: Aron Mcginnis RN Position: [facility] SN RN Member Role: Primary Care Nurse Name: Natalia Plata RN Position: [facility] RN Member Role: Primary Care Nurse Name: Kacy Barnhart RN Position: [facility] RN Member Role: Primary Care Nurse Name: Guerline Ramirez RN Position: [facility] RN Member Role: Primary Care Nurse Name: Ashlyn Cordova RN Position: [facility] Onco RN Member Role: Primary Care Nurse Name: Jennifer Ignacio RN Position: [facility] RN Member Role: Primary Care Nurse Care Team Related Persons Name: JENI TATIANNAOg Address: home [address] [address] Name: TEVIN WILL Address: home [address] [place] [address] Name: ALEX WILL Address: home [address] [place] [address] Name: ALEX ROPER Address: home [address] [place] [address]
--- OUTSIDE RECORDS SUMMARY | 2023-09-06 15:45 | XMS_ITS | Continuity of Care Document ---
Author Organization [facility] Primary Car [place] Address [address] [place] [address]- Care Team Providers Care Energy Consultant Name Role Phone Helena GALLEGOS, Marissa Hernandez Primary Care Physician Encounter [facility] Date(s): 11/28/22 - 12/28/22 [facility] [place] [address] [place], [place] [address] Allergies, Adverse Reactions, Alerts Substance Reaction [...] 11/15/22 14:23:00 EDT, Route to Pharmacy Electronically, [facility] #[id number], 165, cm, 11/10/22 10:56:00 EDT, Height, 79, kg, 11/10/22 10:56:00... Start Date: 11/15/22 Stop Date: 03/15/23 Status: Ordered acamprosate 333 mg oral delayed release tablet 2 tablet = 666 mg, By Mouth, 3 times a day, # 180 tablet, 0 Refills, Maintenance, 04/19/22 12:37:00EST, CR Tablet, [facility], Partial fill upon patient request if the prescription is for a schedule II opioid drug., 165, cm, 04/19/22 11... Start Date: 04/19/22 Stop Date: 05/19/22 Status: Ordered busPIRone 15 mg oral tablet 1 tablet = 15 mg, By Mouth, 3 times a day, # 90 tablet, 3 Refills, Maintenance, 11/15/22 14:23:00 EDT, Tablet, [facility] #[id number], Partial fill upon patient request if the prescription is for a schedule II opioid drug., 165, cm, 11/10/22 10:5... Start Date: 11/15/22 Stop Date: 03/15/23 Status: Ordered Creon 36,000 units oral delayed release capsule 1 capsule, By Mouth, 3 times a day, # 90 capsule, 3 Refills, Maintenance, 06/08/22 9:09:00 EST, [facility] #[id number], Partial fill upon patient request if the prescription is for a schedule IIopioid drug., 1 capsule By Mouth 3 times a day, 165... Start Date: 06/08/22 Status: Ordered doxepin 50 mg oral capsule 1 capsule = 50 mg, By Mouth, Daily at bedtime, # 30 capsule, 3 Refills, Maintenance, 11/15/22 14:23:00 EDT, Capsule, [facility] #[id number], 165, cm, 11/10/22 10:56:00 EDT, Height, 79, kg, 11/10/22 10:56:00 EDT, Dry Weight Start Date: 11/15/22 Stop Date: 03/15/23 Status: Ordered gabapentin 600 mg oral tablet See Instructions, 1 tablet in the morning and 2 tablets at bedtime, # 90 tablet, 3 Refills, Maintenance, 11/15/22 14:24:00 EDT, Tablet, [facility] #[id number], 165, cm, 11/10/22 10:56:00 EDT, Height, 79, kg, 11/10/22 10:56:00 EDT, Dry Weight Start Date: 11/15/22 Status: Ordered LORazepam 1 mg oral tablet 1 tablet = 1 mg, By Mouth, 3 times a day, PRN as needed for anxiety, # 90 tablet, 3 Refills, Maintenance, 11/15/22 14:24:00 EDT, Tablet, [facility] #[id number], Partial fill upon patient requestif the prescription is for a schedule II opioid elijah... Start Date: 11/15/22 Stop Date: 03/15/23 Status: Ordered multivitamin Multiple Vitamins oral tablet 1 tablet, By Mouth, Daily, # 30 tablet, 1 Refills, Maintenance, 10/01/19 11:23:00 EDT, Tablet, [facility], 1 tablet By Mouth Daily,x30 days, 165.1, [...] Maintenance,11/15/22 14:24:00 EDT, Route to Pharmacy Electronically, [facility] #[id number], 165, cm, 11/10/22 10:56:00 EDT, Height, 79, kg, 11/10/22 10:56:00... Start Date: 11/15/22 Stop Date: 02/13/23 Status: Ordered traZODone 100 mg oral tablet 100 mg, 1, tablet, By Mouth, Daily at bedtime, TAKE 1 TABLET BY MOUTH EVERY NIGHT AT BEDTIME, # 30 tablet, Refills 3, Tot. Refills 3, Maintenance, 11/15/22 14:24:00 EDT, Route to Pharmacy Electronically, [facility] #[id number], Partial fill upon... Start Date: 11/15/22 Stop Date: 03/15/23 Status: Ordered valACYclovir 500 mg oral tablet 500 mg, 1, tablet, By Mouth, 2 times a day, # 6 tablet, Refills 1, Tot. Refills 1, Maintenance, 11/10/22 11:16:00 EDT, Route to Pharmacy Electronically, [facility] #[id number], Partial fill uponpatient request if the prescription [...] Team Personnel Name: Marissa Malik NP Position: [facility] PCO Associate Professional Member Role: PCP Address: Address: [address] [place] [address] Primary [place], [place] [address] Name: Elisa Lamar RN Position: [facility] RN Member Role: Primary Care Nurse Name: Zo Segal RN Position: [facility] MAGO Nurse Member Role: Primary Care Nurse Name: Antonia Mtz RN Position: [facility] RN Member Role: Primary Care Nurse Name: Milla Emmanuel RN Position: [facility] RN Member Role: Primary Care Nurse Name: Carol Min [place] Position: [facility] RN Member Role: Primary Care Nurse Name: Katt Gustafson Position: [facility] RN Member Role: Primary Care Nurse Name: Ashely Pacheco Position: [facility] RN Member Role: Primary Care Nurse Name: Miri Espitia RN Position: [facility] AMB Nurse Member Role: Primary Care Nurse Name: Maksim Hunt III, RN Position: [facility] RN Member Role: Primary Care Nurse Name: Elisa Fields RN Position: [facility] RN Member Role: Primary Care Nurse Name: Aron Mcginnis RN Position: [facility] SN RN Member Role: Primary Care Nurse Name: Natalia Plata RN Position: [facility] RN Member Role: Primary Care Nurse Name: Kacy Barnhart RN Position: [facility] RN Member Role: Primary Care Nurse Name: Guerline Ramirez RN Position: [facility] RN Member Role: Primary Care Nurse Name: Ashlyn Cordova RN Position: [facility] Onco RN Member Role: Primary Care Nurse Name: Jennifer Ignacio RN Position: [facility] RN Member Role: Primary Care Nurse Care Team Related Persons Name: TATIANNA NGOOg Address: home [address] [address] Name: TEVIN WILL Address: [address] [place] [address] Name: ALEX WILL Address: home [address] [place] [address] Name: ALEX ROPER Address: home [address] [place] [address]
--- OUTSIDE RECORDS SUMMARY | 2023-09-06 15:45 | XMS_ITS | Continuity of Care Document ---
Author Organization [facility] Primary Car e [place] Address [address] [place] [address]- Care Team Providers Care Stem Processing Machine Operator Name Role Phone Marissa Malik NP Primary Care Physician Encounter [facility] Date(s): 04/22/22 - 05/22/22 [facility] Primary Care [place] [address] [place], [place] [address] Allergies, Adverse Reactions, Alerts Substance [...] 03/15/22 11:53:00 EST, Route to Pharmacy Electronically, [facility][id number], 165, cm, 02/23/22 23:48:00 EDT, Height, 83, kg, 02/23/22 0:48:00 E... Start Date: 03/15/22 Stop Date: 07/13/22 Status: Ordered acamprosate 333 mg oral delayed release tablet 2 tablet = 666 mg, By Mouth, 3 times a day, # 180 tablet, 0 Refills, Maintenance, 04/19/22 12:37:00EST, CR Tablet, [facility], Partial fill upon patient request if the prescription is for a schedule II opioid drug., 165, cm, 04/19/22 11... Start Date: 04/19/22 Stop Date: 05/19/22 Status: Ordered Creon 36,000 units oral delayed release capsule 1 capsule, By Mouth, 3 times a day, # 90 capsule, 0 Refills, Maintenance, 05/06/22 14:15:00 EST, [facility] #[id number], Partial fill upon patient request if the prescription is for a schedule II opioid drug., 1 capsule By Mouth 3 times a day, 16... Start Date: 05/06/22 Status: Ordered doxepin 50 mg oral capsule 1 capsule = 50 mg, By Mouth, Daily at bedtime, # 30 capsule, 3 Refills, Maintenance, 03/15/22 11:53:00 EST, Capsule, [facility] #[id number], 165, cm, 02/23/22 23:48:00 EDT, Height, 83, kg, 02/23/22 0:48:00 EDT, Dry Weight Start Date: 03/15/22 Stop Date: 07/13/22 Status: Ordered fluticasone 50 mcg/inh nasal spray See Instructions, SHAKE LIQUID AND USE 1 SPRAY IN EACH NOSTRIL TWICE DAILY, # 15.8 mL, 3 Refills, 03/23/21 16:18:00 EST, [facility] #[id number], SHAKE LIQUID AND USE 1 SPRAY IN EACH NOSTRIL TWICE DAILY, 164, cm, 03/23/21 15:58:00 EST, Height, 86.... Start Date: 03/23/21 Status: Ordered gabapentin 600 mg oral tablet See Instructions, 1 tablet in the morning and 2 tablets at bedtime, # 90 tablet, 3 Refills, Maintenance, 03/15/22 11:52:00 EST, Tablet, [facility] #[id number], 165, cm, 02/23/22 23:48:00 EDT, Height, 83, kg, 02/23/22 0:48:00 EDT, Dry Weight Start Date: 03/15/22 Status: Ordered loperamide 2 mg oral capsule 2 mg, 1, capsule, By Mouth, Every 3 hours, PRN, # 30 capsule, Refills 0, Tot. Refills 0, Acute 04/19/23 11:43:00 EST, Loose Stool, 04/19/22 11:43:00 EST, Route to Pharmacy Electronically, [facility], Partial fill upon patient request [...] tablet, 0 Refills, Maintenance, 04/19/22 13:13:00 EST, [facility], Partial fill upon patient request if the prescription is for a schedule II opioid drug., 165, cm, 04/19/22 11:15:00 EST,... Start Date: 04/19/22 Stop Date: 04/26/22 Status: Ordered morphine 15 mg/8 to 12 hr oral tablet, extended release 1 tablet = 15 mg, By Mouth, Every 12 hours, # 6 tablet, 0 Refills, Maintenance, 04/30/22 16:54:00 EST, [id number], Partial fill upon patient request if the prescription is for a schedule II opioid drug., 165, cm, 04/19/22 11:15:00 EST... Start Date: 04/30/22 Stop Date: 05/03/22 Status: Ordered multivitamin Multiple Vitamins oral tablet 1 tablet, By Mouth, Daily, # 30 tablet, 1 Refills, Maintenance, 10/01/19 11:23:00 EDT, Tablet, [facility] 1 tablet By Mouth Daily,x30 days, 165.1, cm, 10/01/19 8:37:00 EDT, Height, 80.1, kg, 09/19/19 16:30:00 EDT, Dry Weight Start Date: 10/01/19 Stop Date: 11/30/19 Status: Ordered Narcan 4 mg/0.1 mL nasal spray = 4 mg, Nares, Both, Once, # 2 each, 0 Refills, Soft Stop, 04/19/22 12:16:00 EST, [facility], Partial fill upon patient request [...] Maintenance,03/15/22 11:52:00 EST, Route to Pharmacy Electronically, [facility] #[id number], 165, cm, 02/23/22 23:48:00 EDT, Height, 83, kg, 02/23/22 0:48:00... Start Date: 03/15/22 Stop Date: 07/13/22 Status: Ordered traZODone 100 mg oral tablet TAKE 1 TABLET BY MOUTH EVERY NIGHT AT BEDTIME Start Date: 04/14/22 Status: Ordered Zoloft 100 mg oral tablet 2 tablet = 200 mg, By Mouth, Daily, # 60 tablet, 1 Refills, Maintenance, 03/15/22 11:52:00 EST, Tablet, [facility] #[id number], 165, cm, 02/23/22 23:48:00 EDT, Height, 83, [...] Team Personnel Name: Marissa Malik NP Position: [facility] PCO Associate Professional Member Role: PCP Address: Address: [address] [place] [id number] Name: Elisa Lamar RN Position: [facility] RN Member Role: Primary Care Nurse Name: Zo Segal RN Position: [facility]O RN Member Role: Primary Care Nurse Name: Antonia Mtz RN Position: [facility] RN Member Role: Primary Care Nurse Name: Tiffany Ugalde RN Position: [facility] RN Member Role: Primary Care Nurse Name: Katelynn Moss RN Position: [facility] RN Member Role: Primary Care Nurse Name: Milla Emmanuel RN Position: [facility] AMB Nurse Member Role: Primary Care Nurse Name: Carol Cordova Position[facility] RN Member Role: Primary Care Nurse Name: Katt Gustafson Position: [facility] RN Member Role: Primary Care Nurse Name: Ashely Pacheco Position: [facility] RN Member Role: Primary Care Nurse Name: Miri Espitia RN Position: [facility] AMB Nurse Member Role: Primary Care Nurse Name: Maksim Hunt III, RN Position: [facility] RN Member Role: Primary Care Nurse Name: Elisa Fields RN Position: [facility] RN Member Role: Primary Care Nurse Name: Aron Mcginnis RN Position: [facility] RN Member Role: Primary Care Nurse Name: Natalia Plata RN Position: [facility] RN Member Role: Primary Care Nurse Name: Kacy Barnhart RN Position: [facility] RN Member Role: Primary Care Nurse Name: Guerline Ramirez RN Position: [facility] RN Member Role: Primary Care Nurse Name: Ashlyn Cordova RN Position: [facility] Onco RN Member Role: Primary Care Nurse Name: Jennifer Ignacio RN Position: [facility] RN Member Role: Primary Care Nurse Care Team Related Persons Name: TATIANNA NGOOg Address: home [address] [address] Name: TEVIN WILL Address: [address] [place] [address] Name: ALEX WILL Address: [address] [place] [address] Name: ALEX ROPER Address: [address] [place] [address]
--- OUTSIDE RECORDS SUMMARY | 2023-09-06 15:45 | XMS_ITS | Continuity of Care Document ---
Author Organization [facility] Address [address] [place] [address]- Care Team Providers Care Extractor Operator Solvent Process Name Role Phone Marissa Malik NP Primary Care Physician [phone] [facility] Date(s): 03/29/22 - 04/28/22 [facility] [address] [place], [place] [address] Allergies, Adverse Reactions, Alerts [...] 03/15/22 11:53:00 EST, Route to Pharmacy Electronically, [facility] #[id number], 165, cm, 02/23/22 23:48:00 EDT, Height, 83, kg, 02/23/22 0:48:00 E... Start Date: 03/15/22 Stop Date: 07/13/22 Status: Ordered acamprosate 333 mg oral delayed release tablet 2 tablet = 666 mg, By Mouth, 3 times a day, # 180 tablet, 0 Refills, Maintenance, 04/19/22 12:37:00EST, CR Tablet, [facility], Partial fill upon patient request if the prescription is for a schedule II opioid drug., 165, cm, 04/19/22 11... Start Date: 04/19/22 Stop Date: 05/19/22 Status: Ordered Creon 12,000 units oral delayed release capsule 2 capsule, By Mouth, 3 times a day, # 180 capsule, 6 Refills, Maintenance, 03/30/22 17:46:00 EST, [facility] #[id number], 165, cm, 03/30/22 16:47:00 EST, Height, 83, kg, 02/23/22 0:48:00 EDT, Dry Weight Start Date: 03/30/22 Status: Ordered doxepin 50 mg oral capsule 1 capsule = 50 mg, By Mouth, Daily at bedtime, # 30 capsule, 3 Refills, Maintenance, 03/15/22 11:53:00 EST, Capsule, [facility] #[id number], 165, cm, 02/23/22 23:48:00 EDT, Height, 83, kg, 02/23/22 0:48:00 EDT, Dry Weight Start Date: 03/15/22 Stop Date: 07/13/22 Status: Ordered fluticasone 50 mcg/inh nasal spray See Instructions, SHAKE LIQUID AND USE 1 SPRAY IN EACH NOSTRIL TWICE DAILY, # 15.8 mL, 3 Refills, 03/23/21 16:18:00 EST, [facility] #[id number], SHAKE LIQUID AND USE 1 SPRAY IN EACH NOSTRIL TWICE DAILY, 164, cm, 03/23/21 15:58:00 EST, Height, 86.... Start Date: 03/23/21 Status: Ordered gabapentin 600 mg oral tablet See Instructions, 1 tablet in the morning and 2 tablets at bedtime, # 90 tablet, 3 Refills, Maintenance, 03/15/22 11:52:00 EST, Tablet, [facility] #[id number], 165, cm, 02/23/22 23:48:00 EDT, Height, 83, kg, 02/23/22 0:48:00 EDT, Dry Weight Start Date: 03/15/22 Status: Ordered loperamide 2 mg oral capsule 2 mg, 1, capsule, By Mouth, Every 3 hours, PRN, # 30 capsule, Refills 0, Tot. Refills 0, Acute 04/19/23 11:43:00 EST, Loose Stool, 04/19/22 11:43:00 EST, Route to Pharmacy Electronically, [facility], Partial fill upon patient [...] tablet, 0 Refills, Maintenance, 04/19/22 13:13:00 EST, [facility], Partial fill upon patient request if the prescription is for a schedule II opioid drug., 165, cm, 04/19/22 11:15:00 EST,... Start Date: 04/19/22 Stop Date: 04/26/22 Status: Ordered multivitamin Multiple Vitamins oral tablet 1 tablet, By Mouth, Daily, # 30 tablet, 1 Refills, Maintenance, 10/01/19 11:23:00 EDT, Tablet, [facility]-, 1 tablet By Mouth Daily,x30 days, 165.1, cm, 10/01/19 8:37:00 EDT, Height, 80.1, kg, 09/19/19 16:30:00 EDT, Dry Weight Start Date: 10/01/19 Stop Date: 11/30/19 Status: Ordered Narcan 4 mg/0.1 mL nasal spray = 4 mg, Nares, Both, Once, # 2 each, 0 Refills, Soft Stop, 04/19/22 12:16:00 EST, [facility], Partial fill upon patient [...] Maintenance,03/15/22 11:52:00 EST, Route to Pharmacy Electronically, [facility] #[id number], 165, cm, 02/23/22 23:48:00 EDT, Height, 83, kg, 02/23/22 0:48:00... Start Date: 03/15/22 Stop Date: 07/13/22 Status: Ordered traZODone 100 mg oral tablet TAKE 1 TABLET BY MOUTH EVERY NIGHT AT BEDTIME Start Date: 04/14/22 Status: Ordered Zoloft 100 mg oral tablet 2 tablet = 200 mg, By Mouth, Daily, # 60 tablet, 1 Refills, Maintenance, 03/15/22 11:52:00 EST, Tablet, [facility] #[id number], 165, cm, 02/23/22 23:48:00 EDT, Height, 83, [...] Associate Professional Member Role: PCP Address: Address: [address] [place] [address] Name: Elisa Lamar RN Position: [facility] RN Member Role: Primary Care Nurse Name: Zo Segal RN Position: [facility] RN Member Role: Primary Care Nurse Name: Antonia Mtz RN Position: [facility] RN Member Role: Primary Care Nurse Name: Tiffany Ugalde RN Position: [facility] RN Member Role: Primary Care Nurse Name: Katelynn Moss RN Position: [facility] RN Member Role: Primary Care Nurse Name: Milla Emmanuel RN Position: [facility] AMB Nurse Member Role: Primary Care Nurse Name: Carol Cordova Position: [facility] RN Member Role: Primary Care Nurse Name: Katt Gustafsno Position: [facility] RN Member Role: Primary Care [...] Persons Name: KORY NGO Address: home [address] [address] Name: TEVIN WILL Address: home [address] [place] [address] Name: ALEX WILL Address: home [address] [place] [address] Name: ALEX ROPER Address: home [address] [place] [address]
--- OUTSIDE RECORDS SUMMARY | 2023-09-06 15:45 | XMS_ITS | Continuity of Care Document ---
Author Organization [facility] Address [address] [place] [address]- Care Team Providers Care Central Supply Technician Name Role Phone Marissa Malik NP Primary Care Physician Encounter [facility] Date(s): 12/16/22 - 01/15/23 [facility] [address], [place] [address] Attending Physician: Gualberto Moralez Admitting [...] 11/15/22 14:23:00 EDT, Route to Pharmacy Electronically, [facility] #[id number], 165, cm, 11/10/22 10:56:00 EDT, Height, 79, kg, 11/10/22 10:56:00... Start Date: 11/15/22 Stop Date: 03/15/23 Status: Ordered acamprosate 333 mg oral delayed release tablet 2 tablet = 666 mg, By Mouth, 3 times a day, # 180 tablet, 0 Refills, Maintenance, 04/19/22 12:37:00EST, CR Tablet, [facility], Partial fill upon patient request if the prescription is for a schedule II opioid drug., 165, cm, 04/19/22 11... Start Date: 04/19/22 Stop Date: 05/19/22 Status: Ordered busPIRone 15 mg oral tablet 1 tablet = 15 mg, By Mouth, 3 times a day, # 90 tablet, 3 Refills, Maintenance, 11/15/22 14:23:00 EDT, Tablet, [facility] #[id number], Partial fill upon patient request if the prescription is for a schedule II opioid drug., 165, cm, 11/10/22 10:5... Start Date: 11/15/22 Stop Date: 03/15/23 Status: Ordered Creon 36,000 units oral delayed release capsule 1 capsule, By Mouth, 3 times a day, # 90 capsule, 3 Refills, Maintenance, 06/08/22 9:09:00 EST, [facility] #[id number], Partial fill upon patient request if the prescription is for a schedule IIopioid drug., 1 capsule By Mouth 3 times a day, 165... Start Date: 06/08/22 Status: Ordered doxepin 50 mg oral capsule 1 capsule = 50 mg, By Mouth, Daily at bedtime, # 30 capsule, 3 Refills, Maintenance, 11/15/22 14:23:00 EDT, Capsule, [facility] #[id number], 165, cm, 11/10/22 10:56:00 EDT, Height, 79, kg, 11/10/22 10:56:00 EDT, Dry Weight Start Date: 11/15/22 Stop Date: 03/15/23 Status: Ordered gabapentin 600 mg oral tablet See Instructions, 1 tablet in the morning and 2 tablets at bedtime, # 90 tablet, 3 Refills, Maintenance, 11/15/22 14:24:00 EDT, Tablet, [facility] #[id number], 165, cm, 11/10/22 10:56:00 EDT, Height, 79, kg, 11/10/22 10:56:00 EDT, Dry Weight Start Date: 11/15/22 Status: Ordered LORazepam 1 mg oral tablet 1 tablet = 1 mg, By Mouth, 3 times a day, PRN as needed for anxiety, # 90 tablet, 3 Refills, Maintenance, 11/15/22 14:24:00 EDT, Tablet, [facility] #[id number], Partial fill upon patient requestif the prescription is for a schedule II opioid elijah... Start Date: 11/15/22 Stop Date: 03/15/23 Status: Ordered multivitamin Multiple Vitamins oral tablet 1 tablet, By Mouth, Daily, # 30 tablet, 1 Refills, Maintenance, 10/01/19 11:23:00 EDT, Tablet, [facility]-[id number], 1 tablet By Mouth Daily,x30 days, 165.1, [...] Maintenance,11/15/22 14:24:00 EDT, Route to Pharmacy Electronically, [facility] #[id number], 165, cm, 11/10/22 10:56:00 EDT, Height, 79, kg, 11/10/22 10:56:00... Start Date: 11/15/22 Stop Date: 02/13/23 Status: Ordered traZODone 100 mg oral tablet 100 mg, 1, tablet, By Mouth, Daily at bedtime, TAKE 1 TABLET BY MOUTH EVERY NIGHT AT BEDTIME, # 30 tablet, Refills 3, Tot. Refills 3, Maintenance, 11/15/22 14:24:00 EDT, Route to Pharmacy Electronically, [facility] #[id number], Partial fill upon... Start Date: 11/15/22 Stop Date: 03/15/23 Status: Ordered valACYclovir 500 mg oral tablet 500 mg, 1, tablet, By Mouth, 2 times a day, # 6 tablet, Refills 1, Tot. Refills 1, Maintenance, 11/10/22 11:16:00 EDT, Route to Pharmacy Electronically, [facility] #[id number], Partial fill uponpatient request if the prescription [...] Team Personnel Name: Marissa Malik NP Position: [facility] PCO Associate Professional Member Role: PCP Address: Address: [address] [place] [address] [place] [address]- Name: Elisa Lamar RN Position: [facility] RN Member Role: Primary Care Nurse Name: Zo Segal RN Position: [facility] MAGO Nurse Member Role: Primary Care Nurse Name: Antonia Mtz RN Position: [facility] RN Member Role: Primary Care Nurse Name: Milla Emmanuel RN Position: [facility] RN Member Role: Primary Care Nurse Name: Carol Min [place] Position: [facility] RN Member Role: Primary Care Nurse Name: Katt Gustafson Position: [facility] RN Member Role: Primary Care Nurse Name: Ashely Pacheco Position: [facility] RN Member Role: Primary Care Nurse Name: Miri Espitia RN Position: [facility] AMB Nurse Member Role: Primary Care Nurse Name: Maksim Hunt III, RN Position: [facility] RN Member Role: Primary Care Nurse Name: Elisa Fields RN Position: [facility] RN Member Role: Primary Care Nurse Name: Aron Mcginnis RN Position: [facility] SN RN Member Role: Primary Care Nurse Name: Natalia Plata RN Position: [facility] RN Member Role: Primary Care Nurse Name: Kacy Barnhart RN Position: [facility] RN Member Role: Primary Care Nurse Name: Guerline Ramirez RN Position: [facility] RN Member Role: Primary Care Nurse Name: Ashlyn Cordova RN Position: [facility] Onco RN Member Role: Primary Care Nurse Name: Jennifer Ignacio RN Position: [facility] RN Member Role: Primary Care Nurse Care Team Related Persons Name: KORY NGO Address: home [address] [address] Name: TEVIN WILL Address: [address] [place] [address] Name: ALEX WILL Address: [address] [place] [address] Name: ALEX ROPER Address: [address] [place] [address]
--- OUTSIDE RECORDS SUMMARY | 2023-09-06 15:45 | XMS_ITS | Continuity of Care Document ---
Author Organization [facility] ter Address [address] [place] [address]- Care Team Providers Care Plugger Worker Name Role Phone Helena GALLEGOS, Marissa Hernandez Primary Care Physician [phone] Encounter [facility] Date(s): 05/11/22 - 07/10/[address] [address] Attending Physician: Yolanda Dorman NP Admitting Physician: Yolanda Dorman NP Referring Physician: Yolanda Dorman NP Allergies, Adverse Reactions, Alerts Substance Reaction [...] 06/10/22 14:19:00 EST, Route to Pharmacy Electronically, [facility] #[id number], 165, cm, 05/25/22 14:24:00 EST, Height, 80, kg, 04/14/22 3:03:00 E... Start Date: 06/10/22 Stop Date: 10/08/22 Status: Ordered acamprosate 333 mg oral delayed release tablet 2 tablet = 666 mg, By Mouth, 3 times a day, # 180 tablet, 0 Refills, Maintenance, 04/19/22 12:37:00EST, CR Tablet, [facility] 3, Partial fill upon patient request if the prescription is for a schedule II opioid drug., 165, cm, 04/19/22 11... Start Date: 04/19/22 Stop Date: 05/19/22 Status: Ordered busPIRone 15 mg oral tablet 1 tablet = 15 mg, By Mouth, 3 times a day, # 90 tablet, 3 Refills, Maintenance, 06/10/22 14:24:00 EST, Tablet, [facility] #[id number], Partial fill upon patient request if the prescription is for a schedule II opioid drug., 165, cm, 05/25/22 14:2... Start Date: 06/10/22 Stop Date: 10/08/22 Status: Ordered Creon 36,000 units oral delayed release capsule 1 capsule, By Mouth, 3 times a day, # 90 capsule, 3 Refills, Maintenance, 06/08/22 9:09:00 EST, [facility] #[id number], Partial fill upon patient request if the prescription is for a schedule IIopioid drug., 1 capsule By Mouth 3 times a day, 165... Start Date: 06/08/22 Status: Ordered doxepin 50 mg oral capsule 1 capsule = 50 mg, By Mouth, Daily at bedtime, # 30 capsule, 3 Refills, Maintenance, 06/10/22 14:20:00 EST, Capsule, [facility] #[id number], 165, cm, 05/25/22 14:24:00 EST, Height, 80, kg, 04/14/22 3:03:00 EST, Dry Weight Start Date: 06/10/22 Stop Date: 10/08/22 Status: Ordered fluticasone 50 mcg/inh nasal spray See Instructions, SHAKE LIQUID AND USE 1 SPRAY IN EACH NOSTRIL TWICE DAILY, # 15.8 mL, 3 Refills, 03/23/21 16:18:00 EST, [facility] #[id number], SHAKE LIQUID AND USE 1 SPRAY IN EACH NOSTRIL TWICE DAILY, 164, cm, 03/23/21 15:58:00 EST, Height, 86.... Start Date: 03/23/21 Status: Ordered gabapentin 600 mg oral tablet See Instructions, 1 tablet in the morning and 2 tablets at bedtime, # 90 tablet, 3 Refills, Maintenance, 06/10/22 14:20:00 EST, Tablet, [facility] #[id number], 165, cm, 05/25/22 14:24:00 EST, Height, 80, kg, 04/14/22 3:03:00 EST, Dry Weight Start Date: 06/10/22 Status: Ordered loperamide 2 mg oral capsule 2 mg, 1, capsule, By Mouth, Every 3 hours, PRN, # 30 capsule, Refills 0, Tot. Refills 0, Acute 04/19/23 11:43:00 EST, Loose Stool, 04/19/22 11:43:00 EST, Route to Pharmacy Electronically, [facility], Partial fill upon patient request if... Start Date: 04/19/22 Stop Date: 04/19/23 Status: Ordered LORazepam 1 mg oral tablet 1 tablet = 1 mg, By Mouth, 3 times a day, PRN as needed for anxiety, # 90 tablet, 3 Refills, Maintenance, 06/10/22 14:21:00 EST, Tablet, [facility] #[id number], Partial fill upon patient requestif the prescription [...] 0 Refills, Soft Stop, 04/19/22 12:16:00 EST, [facility], Partial fill upon patient request [...] Maintenance,06/10/22 14:21:00 EST, Route to Pharmacy Electronically, [facility] #[id number], 165, cm, 05/25/22 14:24:00 EST, Height, 80, kg, 04/14/22 3:03:00... Start Date: 06/10/22 Stop Date: 10/08/22 Status: Ordered traMADol 50 mg oral tablet 1 tablet = 50 mg, By Mouth, Every 8 hours, 30 each, TAKE 1 TABLET BY MOUTH EVERY 8 HOURS NEEDED FOR FOR PAIN, # 30 tablet, 2 Refills, Maintenance, 06/14/22 15:23:00 EST, Tablet, [facility] #[id number], Partial fill upon patient request if the... Start Date: 06/14/22 Status: Ordered traZODone 100 mg oral tablet 100 mg, 1, tablet, By Mouth, Daily at bedtime, TAKE 1 TABLET BY MOUTH EVERY NIGHT AT BEDTIME, # 30 tablet, Refills 3, Tot. Refills 3, Maintenance, 06/10/22 14:22:00 EST, Route to Pharmacy Electronically, [facility] #[id number], Partial fill upon... Start Date: 06/10/22 Stop [...] Professional Member Role: PCP Address: Address: [address] [place] [address] [id number] Name: Elisa [...] Primary Care Nurse Name: Carol Cordova Position: [facility] RN Member Role: Primary Care Nurse Name: Katt Gustafson Position: [facility] RN Member Role: Primary Care [...] Member Role: Primary Care Nurse Name: Jennifer Igancio RN Position: [facility] RN Member Role: Primary Care Nurse Care Team Related Persons Name: TATIANNA NGOOg Address: home [address] [address] Name: TEVIN WILL Address: [address] [place] [address] Name: ALEX WILL Address: [address] [place] [address] Name: ALEX ROPER Address: [address] [place] [address]
--- OUTSIDE RECORDS SUMMARY | 2023-09-06 15:45 | XMS_ITS | Continuity of Care Document ---
Author Organization [facility] ter Address [address] [place] [id number] Care Team Providers Care Medical Genetics Director Name Role Phone Helena GALLEGOS, Marissa Hernandez Primary Care Physician [place] [facility] [place]): [place] - 04/19/[address] [id number] Encounter Diagnosis Abdominal pain(Final) - 04/14/22 Discharge Disposition: A-D/C Home Attending Physician: Richi Escobedo MD Admitting Physician: Mitchell Marshall MD Referring Physician: Not on Staff, Referring [...] 03/15/22 11:53:00 EST, Route to Pharmacy Electronically, [facility] #[id number], 165, cm, 02/23/22 23:48:00 EDT, Height, 83, [...] capsule, 6 Refills, Maintenance, 03/30/22 17:46:00 EST, [facility] #[id number], 165, cm, 03/30/22 16:47:00 EST, Height, 83, kg, 02/23/22 0:48:00 EDT, Dry Weight Start Date: 03/30/22 Status: Ordered Dilaudid 2 mg oral tablet 1 tablet = 2 mg, By Mouth, Every 4 hours, PRN Pain , Severe, # 28 tablet, 0 Refills, Acute 04/26/2211:56:00 EST, 04/19/22 11:42:00 EST, Tablet, [facility], Partial fill upon patient request if the prescription is for a schedule II opioi... Start Date: 04/19/22 Stop Date: 04/26/22 Status: Ordered Dilaudid 2 mg oral tablet 2 mg, Tablet, By Mouth, Every 4 hours, PRN for Pain , Severe, Routine, 04/18/22 0:01:00 EST Start Date: 04/18/22 Stop Date: 04/20/22 Status: Discontinued doxepin 50 mg oral capsule 1 capsule = 50 mg, By Mouth, Daily at bedtime, # 30 capsule, 3 Refills, Maintenance, 03/15/22 11:53:00 EST, Capsule, [facility] #[id number], 165, cm, 02/23/22 23:48:00 EDT, Height, 83, kg, 02/23/22 0:48:00 EDT, Dry Weight Start Date: 03/15/22 Stop Date: 07/13/22 Status: Ordered fluticasone 50 mcg/inh nasal spray See Instructions, SHAKE LIQUID AND USE 1 SPRAY IN EACH NOSTRIL TWICE DAILY, # 15.8 mL, 3 Refills, 03/23/21 16:18:00 EST, [facility] #[id number], SHAKE LIQUID AND USE 1 SPRAY IN EACH NOSTRIL TWICE DAILY, 164, cm, 03/23/21 15:58:00 EST, Height, 86.... Start Date: 03/23/21 Status: Ordered gabapentin 300 mg oral capsule 600 mg, Capsule, By Mouth, 04/19/22 9:00:00 EST Start Date: 04/19/22 Stop Date: 04/19/22 Status: Completed gabapentin 600 mg oral tablet See Instructions, 1 tablet in the morning and 2 tablets at bedtime, # 90 tablet, 3 Refills, Maintenance, 03/15/22 11:52:00 EST, Tablet, [facility] #[id number], 165, cm, 02/23/22 23:48:00 EDT, Height, 83, kg, 02/23/22 0:48:00 EDT, Dry Weight Start Date: 03/15/22 Status: Ordered loperamide 2 mg oral capsule 2 mg, 1, capsule, By Mouth, Every 3 hours, PRN, # 30 capsule, Refills 0, Tot. Refills 0, Acute 04/19/23 11:43:00 EST, Loose Stool, 04/19/22 11:43:00 EST, Route to Pharmacy Electronically, [facility], Partial fill [...] tablet, 0 Refills, Maintenance, 04/19/22 13:13:00 EST, [facility], Partial fill [...] 0 Refills, Soft Stop, 04/19/22 12:16:00 EST, [facility], Partial fill [...] Maintenance,03/15/22 11:52:00 EST, Route to Pharmacy Electronically, [facility] #[id number], 165, cm, 02/23/22 23:48:00 EDT, Height, 83, kg, 02/23/22 0:48:00... Start Date: 03/15/22 Stop Date: 07/13/22 Status: Ordered traZODone 100 mg oral tablet TAKE 1 TABLET BY MOUTH EVERY NIGHT AT BEDTIME Start Date: 04/14/22 Status: Ordered Zoloft 100 mg oral tablet 2 tablet = 200 mg, By Mouth, Daily, # 60 tablet, 1 Refills, Maintenance, 03/15/22 11:52:00 EST, Tablet, [facility] #[id number], 165, cm, 02/23/22 23:48:00 EDT, Height, 83, [...] Exam Date Time Procedure Performing Provider Status 04/14/22 11:[address] Abd/Pelvis W/ IV Contrast Only Mulu Avina; Auth (Verified) Notes: (CT Abd/Pelvis W/ IV Contrast Only) Reason For Exam: LLQ abdominal pain;Other: RESULT: CT Abd/Pelvis W/ IV Contrast Only CT Abd/Pelvis W/ IV Contrast Only Hx of Present Illness: vomiting since yesterday. reports chronic pancreatitis d t alcohol. reports decreased urinae output; Reason: Other:; LLQ abdominal pain; Clinical Question(s): Obstruction; Order Comment: TECHNIQUE: Spiral CT through the abdomen and pelvis with IV contrast formatted in 3 planes. 100 cc of Omnipaque 300 was administered intravenously. This study was performed without oral contrast. Weight-based protocol using automatic tube modulation was used to optimize exposure parameters. CTDIvol Body: 15.30 mGy, DLP Body: 846 mGy*cm. COMPARISON: CT abdomen pelvis from 02/13/2022 and 07/20/2016 FINDINGS: Emergency Service Worker View Findings, Lines and Tubes: None. Visualized Chest: Lung bases are clear. No pleural effusion. The heart is normal in size. No pericardial effusion. Diaphragm: Normal. Liver: Diffuse low-attenuation throughout the liver parenchyma consistent with hepatic steatosis. No evidence of mass. Gallbladder: No CT evidence of gallbladder pathology. Bile ducts: No biliary ductal dilation. Spleen: Normal. Pancreas: Parenchymal with extensive parenchymal calcifications. There is dilation of the main pancreatic duct which is better delineated on current study compared to noncontrast exam on 02/23/2022. Duct measures 7 mm in the tail (7 202:45). This is increased from 2017. Adrenal glands: Normal. Kidneys and ureters: Lobulated contours. No hydronephrosis, stones, or suspicious masses. Small hypodensities that are too small to characterize are noted, requiring no dedicated follow up. Bladder: Normal. Reproductive organs: Unremarkable. Stomach, small bowel, and large bowel: No abnormal bowel wall thickening or distention. Appendix: Not seen, but no evidence of appendicitis. Peritoneum and retroperitoneum: No ascites or pneumoperitoneum. No omental or mesenteric lesions. Lymph nodes: No enlarged lymph nodes. Blood vessels: Mild vascular calcifications but no aneurysm. No evidence of venous thrombosis. Abdominal and pelvic wall: Unremarkable. Bones: No acute abnormality. IMPRESSION: No acute abnormality within the abdomen or pelvis. Sequela of chronic pancreatitis with parenchymal atrophy, parenchymal calcifications, and dilation of the main pancreatic duct measuring 7 mm, increased from 2017. While ductal dilation can be seen in the setting of stricture from chronic pancreatitis, consider nonemergent follow-up with MRI to assess for any underlying lesion. Hepatic steatosis. A critical result message (Yellow) has been communicated via the [employer] system on 04/14/2022 12:38 PM, Message ID [id number]. WSN: [id number] Ordering Physician: West Garcia By: Prosper Fajardo MD Dictated Date/Time: 04/14/22 12:38 p Reviewed By: Prosper Fajardo MD Signed By: Prosper Fajardo MD Signed Date/Time: 04/14/22 12:38 pm Transcribed By: DIPESH Transcribed Date/Time: 04/14/22 12:29 pm Vital Signs Most recent to oldest [Reference Range]: 1 2 3 4 Height 165 cm (04/19/22 11:15 AM) 165 cm (04/19/22 7:45 AM) 165 cm (04/19/22 4:37 AM) Weight 80 kg (04/14/22 3:03 AM) 80 kg (04/14/22 3:01 AM) Oxygen Saturation [94-100 %] 100 % (04/19/22 11:15 AM) 94 % (04/19/22 7:45 AM) 95 % (04/19/22 4:37 AM) Pulse Rate [55-90 bpm] 64 bpm (04/19/22 11:15 AM) 73 bpm (04/19/22 7:45 AM) 67 bpm (04/19/22 4:37 AM) Body Mass Index [18.5-24.99 kg/m2] 29.38 kg/m2 *H* (04/14/22 3:01 AM) Blood Pressure [90-138/55-84 mm Hg] 98/65mm Hg (04/19/22 11:15 AM) 87/51mm Hg *L* (04/19/22 7:45 AM) 100/55mm Hg (04/19/22 4:37 AM) Respiratory Rate [16-30 br/min] 18 br/min (04/19/22 1:31 PM) 18 br/min (04/19/22 11:15 AM) 18 br/min (04/19/22 9:17 AM) 18 br/min (04/19/22 9:17 AM) Temperature [96.8-100.4 DegF] 97.7 DegF (04/19/22 11:15 AM) 98.1 DegF (04/19/22 7:45 AM) 98.2 DegF (04/19/22 4:37 AM) Mode of Delivery (Oxygen) Room air (04/19/22 11:15 AM) Room air (04/19/22 7:45 AM) Room air (04/19/22 4:37 AM) Blood pressure sites Arm, right (04/19/22 11:15 AM) Arm, left (04/19/22 7:45 AM) Arm, right (04/19/22 4:37 AM) Temperature Route Oral (04/19/22 11:15 AM) Oral (04/19/22 7:45 AM) Oral (04/19/22 4:37 AM) Dry Weight 80 kg (04/14/22 3:03 AM) 80 kg (04/14/22 3:01 AM) Social History Social History Type Response Smoking Status 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 Age:??41 Years?Sex:??Female?:??1980?? Chief Complaint/Reason for Consultation upper left abd pain, hx of pancreatitis. Vomiting 2 days, diarrhea 1month. 10/10 pain. History of Present Illness 41-year-old female with a history of chronic pancreatitis, recurrent acute pancreatitis, alcohol use disorder, depression, PTSD, endometriosis presented for complaints of epigastric and left upper quadrant pain ongoing for 1 month, watery diarrhea ongoing for 1 month, nausea/vomiting/inability to take p.o. for 2 days. ??Patient reports that her first episode of pancreatitis was 10 years ago, withthe last episode being last year. ??She continues to use alcohol, with the last alcohol binge beinga month ago. ??She reports that previously she was on Creon, however stopped taking it 2 to 3 months ago. ??She reports pain worsens with eating, sharp, 10 out of 10, unchanged with bowel movements, c onstant. ??She reports 4-5 bowel movements every day, watery with oil in it. ?? On presentation, patient was afebrile, pulse in the 60s, hemodynamically stable, saturating well onroom air. ??Labs significant for CBC WNL, BMP WNL except potassium 3.0, BUN 7/creatinine 0.7, AST 56, ALT 80, total bilirubin 0.6, lactate 2.5?1.0. ??Lipase 12. ??CT abdomen with IV contrast showed no evidence of acute pancreatitis, chronic pancreatic atrophy with dilated pancreatic duct up to0.7 cm, and parenchymal calcifications. Review of Systems ?? ROS was completed and otherwise negative except as noted in the HPI Objective Vital Signs?? Temperature: 97.8 DegF (04/14/22 17:07:00) Temperature Route: Oral (04/14/22 17:07:00) Pulse Rate: 63 bpm (04/14/22 17:07:00) Respiratory Rate: 20 br/min (04/14/22 17:07:00) Systolic Blood Pressure: 116 mm Hg (04/14/22 17:07:00) Diastolic Blood Pressure: 69 mm Hg (04/14/22 17:07:00) Blood pressure sites: Arm, right (04/14/22 17:07:00) Mean Arterial Pressure: 100 mm Hg (04/14/22 12:48:00) Pulse Pressure: 34 mm Hg (04/14/22 12:48:00) Oxygen Saturation: 99 % (04/14/22 17:07:00) Mode of Delivery (Oxygen): Room air (04/14/22 17:07:00) Early Warning Score: 2 (04/14/22 18:27:15) ? Physical Exam ?Gen Appearance: NAD, conversing appropriately ?HEENT: conjunctiva wnl, MMM?Heart: S1/S2 heard ?Lungs: No overt resp distress, CTA ?Abdomen: soft, nontender, nondistended?Musculoskeletal: No joint swelling/erythema ?Neurological: A/Ox3, no gross deficits ?Extremities: No TRICIA, Normal Capillary refill ?Derm: No rash Assessment/Plan ?? 41-year-old female with a history of chronic pancreatitis, recurrent acute pancreatitis, alcohol use disorder, depression, PTSD, endometriosis presented for complaints of epigastric and left upper quadrant pain ongoing for 1 month, watery diarrhea ongoing for 1 month, nausea/vomiting/inability to take p.o. for 2 days ?? Chronic pancreatitis Patient symptoms of diarrhea, abdominal pain worsened with food intake, and nausea vomiting, with imaging showing pancreatic calcifications, dilated PD and pancreatic atrophy are consistent with chronic pancreatitis, with possible underlying mild acute pancreatitis, however not seen on imaging witha lipase being normal. ??Etiology has been confirmed to be alcohol associated in the past. ??Plan: ?Pain controlled with Dilaudid 1 mg every 4 and oxycodone 5 mg every 6 ?IVF 125 mill per hour ?Start Creon 20,000 units 3 times daily, at home patient has Creon already ?Follow-up with GI as outpatient ?Outpatient MRI with and without contrast pancreas mass protocol ?Continue home gabapentin ?? History of depression/anxiety???continue home meds including trazodone, sertraline,??Abilify, Ativan 1 mg 2 times a day ?? Full code DVT: Lovenox ?? Discussed with Dr. Liu Histories Allergies Allergies ?(Active and Proposed Allergies Only) ibuprofen? (Severity: Unknown severity, Onset: Unknown) acetaminophen? (Severity: Unknown severity, Onset: Unknown) Bee Stings? (Severity: Unknown severity, Onset: Unknown) Pollen? (Severity: Unknown severity, Onset: Unknown) ? Past Medical History/Problem List Active Problems??(26) Abdominal pain, epigastric Abnormal uterine bleeding Acute pancreatitis Alcohol dependence Alcohol dependence in early, early partial, sustained full, or sustained partial remission Alcohol use disorder, severe, in early remission, in controlled environment, dependence Alcohol withdrawal-induced seizure Alcoholic hepatitis Alcoholic liver disease Attempted suicide - hanging Chronic low back pain Depression Encounter for preventive health examination Endometriosis Gastritis Iron deficiency anemia Low back pain without sciatica Macrocytic anemia Major depressive disorder, recurrent episode, moderate degree Mass of right breast Menometrorrhagia Mood disorder Pancreatitis, chronic Post traumatic stress disorder (PTSD) Severe alcohol dependence Sprain of ribs ? Past Surgical History [...] illness in household: No. Nutrition/Health Details:??Diet: Regular. Sexual Details:??Sexually involved in last 6 months: [...] Pat. Grandmother: Cancer of breast Mat. Grandmother: Emphysema ? Medications Home Medications Aripiprazole (Abilify 10 mg oral tablet)?10?Milligram?1?tablet?By Mouth?Daily at bedtime?for 30?Days Doxepin (doxepin 50 mg oral capsule)?1?capsule?50?Milligram?By Mouth?Daily at bedtime?for 30?Days Fluticasone Nasal (fluticasone 50 mcg/inh nasal spray)?See Instructions?SHAKE LIQUID AND USE 1 SPRAY IN EACH NOSTRIL TWICE DAILY Gabapentin (gabapentin 600 mg oral tablet)?See Instructions?1 tablet in the morning and 2 tablets at bedtime Lorazepam (LORazepam 1 mg oral tablet)?1?tab(s)?1?Milligram?By Mouth?2 times a day?as needed?as needed for anxiety Multivitamin (multivitamin Multiple Vitamins oral tablet)?1?tab(s)?By Mouth?Daily?for 30?Days Pancrelipase (Creon 12,000 units oral delayed release capsule)?2?capsule?By Mouth?3 times a day Pantoprazole (pantoprazole 40 mg oral delayed release tablet)?1?tab(s)?By Mouth?Daily Prazosin (prazosin 5 mg oral capsule)?5?Milligram?1?capsule?By Mouth?Daily at bedtime?for 30?Days Sertraline (Zoloft 100 mg oral tablet)?2?tab(s)?200?Milligram?By Mouth?Daily?for 30?Days Trazodone (traZODone 100 mg oral tablet)?TAKE 1 TABLET BY MOUTH EVERY NIGHT AT BEDTIME ? Results Recent Labs BLOOD COUNT & DIFF WBC 8.3 k/mm3 ()?? 04/14/2022 03:55 RBC 4.43 m/mm3 ()?? 04/14/2022 03:55 Hgb 14.8 Gm/dL ()?? 04/14/2022 03:55 Hct 43.6 % ()?? 04/14/2022 03:55 MCV 98.4 femtoliters ()?? 04/14/2022 03:55 MCH 33.4 pg ()?? 04/14/2022 03:55 MCHC 33.9 g/dL ()?? 04/14/2022 03:55 Platelet Count 282 k/mm3 ()?? 04/14/2022 03:55 RDW-SD 45.3 femtoliters ()?? 04/14/2022 03:55 MPV 9.7 femtoliters ()?? 04/14/2022 03:55 Nucleated RBC (Automated) 0.0 #/100 WBC'S ()?? 04/14/2022 03:55 Abs. NRBC 0.0 k/mm3 ()?? 04/14/2022 03:55 Abs. Neut 5.9 k/mm3 ()?? 04/14/2022 03:55 Abs. Lymph 1.6 k/mm3 ()?? 04/14/2022 03:55 Abs. Pleasants 0.7 k/mm3 ()?? 04/14/2022 03:55 Abs. Eo 0.0 k/mm3 ()?? 04/14/2022 03:55 Abs. Baso 0.0 k/mm3 ()?? 04/14/2022 03:55 Neut % 71.4 % ()?? 04/14/2022 03:55 Lymph % 19.3 % ()?? 04/14/2022 03:55 Pleasants % 8.7 % ()?? 04/14/2022 03:55 Eos % 0.2 % ()?? 04/14/2022 03:55 Baso % 0.2 % ()?? 04/14/2022 03:55 Imm Gran 0.2 % ()?? 04/14/2022 03:55 Abs. Imm Gran 0.0 k/mm3 ()?? 04/14/2022 03:55 ?? CHEM GENERAL Sodium 140 mmol/L ()?? 04/14/2022 03:55 Potassium 3.0 mmol/L (Low)?? 04/14/2022 03:55 Chloride 94 mmol/L (Low)?? 04/14/2022 03:55 Bicarbonate Level 30 mmol/L (High)?? 04/14/2022 03:55 Anion Gap 16 ()?? 04/14/2022 03:55 Glucose Level 149 mg/dL (High)?? 04/14/2022 03:55 BUN 7 mg/dL ()?? 04/14/2022 03:55 Creatinine-Blood 0.7 mg/dL ()?? 04/14/2022 03:55 Estimated GFR Creatinine 112 ML/MIN/1.73 M2 ()?? 04/14/2022 03:55 Calcium 9.9 mg/dL ()?? 04/14/2022 03:55 Protein, Total 7.3 Gm/dL ()?? 04/14/2022 03:55 Albumin 4.9 Gm/dL (High)?? 04/14/2022 03:55 AG Ratio 2.0 ()?? 04/14/2022 03:55 Alkaline Phosphatase 74 units/L ()?? 04/14/2022 03:55 Lipase 12 units/L (Low)?? 04/14/2022 03:55 AST (SGOT) 56 units/L (High)?? 04/14/2022 03:55 ALT (SGPT) 80 units/L (High)?? 04/14/2022 03:55 Bilirubin, Total 0.6 mg/dL ()?? 04/14/2022 03:55 Lactate 1.0 mmol/L ()?? 04/14/2022 14:08 ?? ENDOCRINE/TUMOR MARKER Serum Qual NEGATIVE mIU/mL ()?? 04/14/2022 03:55 ?? MISC. CHEMISTRY Hold Gel Top SPECIMEN DISCARDED AFTER 1 WEEK ()?? 04/14/2022 14:33 ?? UA/URINALYSIS Appear/Color, Urine YELLOW ()?? 04/14/2022 03:05 Specific [place], Urine >1.050 (High)?? 04/14/2022 03:05 pH, Urine 7.0 ()?? 04/14/2022 03:05 Albumin, Urine 1+ (Abnormal)?? 04/14/2022 03:05 Glucose, Urine NEGATIVE ()?? 04/14/2022 03:05 Ketones, Urine NEGATIVE ()?? 04/14/2022 03:05 Bilirubin, Urine NEGATIVE ()?? 04/14/2022 03:05 Hemoglobin, Urine NEGATIVE ()?? 04/14/2022 03:05 Nitrite, Urine NEGATIVE ()?? 04/14/2022 03:05 Leukocyte, Urine NEGATIVE ()?? 04/14/2022 03:05 Urobilinogen NORMAL mg/dL ()?? 04/14/2022 03:05 WBC's, Urine <1 /HPF ()?? 04/14/2022 03:05 RBC's, Urine NONE SEEN /HPF ()?? 04/14/2022 03:05 Squamous Epith 4 /HPF ()?? 04/14/2022 03:05 Mucus SLIGHT /LPF ()?? 04/14/2022 03:05 Hold Urine Culture Testing available 48 hours from time of collection. ()?? 04/14/2022 03:05 ?? VIROLOGY COVID-19 POC Result NEGATIVE ()?? 04/14/2022 03:20 ? EKG study * Event Display: ECG 12-Lead Authored Date: Please click on pdf link to open report * Event Display: ECG 12-Lead Authored Date: Ventricular Rate: 56 BPM Atrial Rate: 56 BPM P-R Interval: 122 ms QRS Duration: 84 ms Q-T Interval: 484 ms QTC Calculation(Bazett): 467 ms P [place]: 11 degrees R [place]: 48 degrees T [place]: [address] and T wave abnormality, consider anterior ischemia Prolonged QT Abnormal ECG When compared with ECG of 22-FEB-2022 17:47, No significant change was found Confirmed by CRISTI SINGH MD ([id number]) on 04/15/2022 9:53:52 AM [place]: CRISTI SINGH MD * Event Display: EKG Authored Date: Hospital Progress note * Richi Escobedo MD: PERFORM Event Display: Progress Note Hospital Authored Date: Patient: ??SMIA ROPER ? Age:??41 Years?Sex:??Female?:??1980?? Subjective Overnight events: No significant events overnight.?? Refuses Lovenox. ??Complaining??of??right lower quadrant and left upper quadrant pain??as needed medications administered. Review of Systems General:??Feels well and slept overnight. Cardiovascular:??Denies any chest pain or palpitations. Pulmonary:??Denies any shortness of breath or cough. GI:??Abdominal pain :??Denies any urinary retention. Objective ?? Intake/Output? 04/14 15:17 04/18 07:00 04/17 07:00 04/16 07:00 04/15 07:00 ?? 04/18 15:53 04/18 15:53 04/18 06:59 04/17 06:59 04/16 06:59 Intake ? 6475 ?240 ? 1725 ? 1140 ? 1320 Output ?0 ?0 ?0 ?0 ?0 Net Total ? 6475 ?240 ? 1725 ? 1140 ? 1320 ? Urine Count ?6 ?1 ?3 ?2 ?0 ? Physical Exam Vital Signs (24 hrs) Last Charted?? Minimum?? Maximum?? Resp Rate?? 18?? 04/18/2022 08:47?? 16?? 04/17/2022 12:24 ?? 20?? 04/17/2022 23:23?? SBP?? 104?? 04/18/2022 08:05?? 104?? 04/18/2022 08:05 ?? 138?? 04/17/2022 23:23?? DBP?? 71?? 04/18/2022 08:05?? 65?? 04/18/2022 02:46 ?? 74?? 04/17/2022 23:23? General Appearance: The patient is in NAD. Cardiovascular: RRR S1 and S2 heard with no M/R/G. Respiratory: ??Breath sounds clear to auscultation bilaterally. No wheezing. Good air movement throughout both lungs. GI: Epigastric tenderness but otherwise soft.,?? Nontender and nondistended. Normal bowel sounds present throughout abdomen.?? MS: ??No edema or erythema in the lower extremities. Neuro: ??No slurred speech. ??Patient seen moving their upper and lower extremities independently. Psych: Appropriate and pleasant. Lines: Peripheral IV in place.? Results Test Name Test Result Date/TimeBicarbonate Level 31 mmol/L (High) 04/18/2022 01:43 EST ALT (SGPT) 34 units/L (High) 04/18/2022 01:43 EST Remainder of CBC, electrolytes, BUN, creatinine, LFTs unremarkable. Assessment/Plan SIMA??JUDSON??is a??41 Years??Female??with chronic pancreatitis, recurrent acute pancreatitis, alcohol use disorder, depression, PTSD, endometriosis presented for complaints of epigastric and left upper quadrant pain ongoing for 1 month, watery diarrhea ongoing for 1 month, nausea/vomiting/inability to take p.o. for 2 days found to have pancreatitis. ?? Acute Issues (active management): Chronic pancreatitis: She wanted to??go back to IV Dilaudid but??with shared decision making decided to stick with p.o. Dilaudid??with oxycodone changed to 10 mg??ER??twice daily.?? She was also willing to??advance diet. ?? Plan: ??? Low-fat regular diet (from full liquid diet) ??? Pain regimen: Dilaudid??2 mg??po (from 1mg IV)??every 4 hours as needed, oxycodone 10 mg ER twice daily??(from 5 mg as needed) ??? LR 75 cc an hour??discontinued per patient preference ??? GI outpatient follow-up ??? Outpatient MRI with and without contrast pancreatic mass protocol.?? PCP to order and follow-up ??? Continue pancrelipase ??? Imodium??as needed ?? Stable Issues: Elevated LFTs: Downtrending from previous.?? Hepatic steatosis on CT scan. ?? Chronic Issues: PTSD/anxiety/depression: continue aripiprazole, trazodone, Ativan twice daily, Sertraline, Gabapentin GERD: Continue pantoprazole History of alcohol dependence??? She says that she has not drinking alcohol so CIWA was not ordered ?? DVT Prophylaxis:??Enoxaparin 40mg?? Diet:??Full Liquid Diet: No Red Liquids Code Status:??Full Resuscitation?? PT ordered?:??No active Physical Therapy Orders.?? Dispo:??Home?? * Carmina Chan RN: VERIFY, PERFORM, SIGN Event Display: Progress Note Hospital Authored Date: Patient: SIMA ROPER Age: 41 years Sex: Female : 1980 Associated Diagnoses: None Author: Carmina Chan RN Findings Problem Related to Alteration in Gastrointestinal : Alteration in Gastrointestinal Func/new 04/17/2022 9:00 EST Alteration in GI status Related to Pancreatitis Goals & Outcomes, Gastrointestinal Establish a regular pattern of elimination for pt, Pt will maintain normal elimination patterns, Pt will tolerate age appropriate diet prior to discharge, Pt will experience a decrease in diarrhea Interventions, Gastrointestinal Assess/monitor abdomen for distention, tenderness, Assess/monitor bowel pattern, bowel sounds, flatus, Assess/monitor pt for nausea, vomiting, Assess/monitor effects of re-hydration, Assess if pt tolerating diet BH Goals/Interventions, Gastrointestinal Yes Gastrointestinal, Problem Start 04/15/2022 23:22 Reviewed plan with, Gastrointestinal Patient Patient Progression, Gastrointestinal Pt progressing according to plan . Nursing Data Gastrointestinal Data. : Gastrointestinal Data. 04/17/2022 7:00 EST Gastrointestinal Symptoms Nausea Abdomen Soft, Tender, Round LUQ Tenderness At rest, To palpation RLQ Tenderness At rest Bowel Sounds LUQ Present Bowel Sounds RUQ Present Bowel Sounds LLQ Present Bowel Sounds RLQ Present Last Bowel Movement 04/16/2022 Gastrointestinal Comment pt reports mild nausea d/t pain, denies need for intervention at this time, will monitor, otherwise tolerating PO intake without vomiting GI WNL except Normal Bowel Pattern Daily . Narrative/Incidental pt A+Ox4, VSS,pt OOB with steady gait to BR refusing lovenox, pt continues to c/o pain to RLQ and LUQ that wraps around to back and is tender to palpation, PRN pain medications administered with goodeffects but is consistant in asking every 2-3 hrs for PRN, IVF continued at this time, pt advance diet for lunch from full liquid to low fat , tolerating PO intake without N/V, pt reports pain increased with advance diet requesting to return to previous diet, MD aware with orders for full liquids, pt will no longer have IV dilaudid come midnight as it will change to PO, pt is in bed with eyes closed and call doherty in reach, nursing will continue to monitor . * Richi Escobedo MD: PERFORM Event Display: Progress Note Hospital Authored Date: Patient: ??SIMA ROPER ? Age:??41 Years?Sex:??Female?:??1980?? Subjective Overnight events: No significant events overnight. Review of Systems General:??Feels well and slept overnight. Cardiovascular:??Denies any chest pain or palpitations. Pulmonary:??Denies any shortness of breath or cough. GI:??Abdominal pain, diarrhea :??Denies any urinary retention. Objective ?? Intake/Output? 04/14 15:17 04/17 07:00 04/16 07:00 04/15 07:00 04/14 07:00 ?? 04/17 16:19 04/17 16:19 04/17 06:59 04/16 06:59 04/15 06:59 Intake ? 4510 ?0 ? 1140 ? 1320 ? 2050 Output ?0 ?0 ?0 ?0 ?0 Net Total ? 4510 ?0 ? 1140 ? 1320 ? 2050 ? Urine Count ?2 ?0 ?2 ?0 ?0 ? Physical Exam Vital Signs (24 hrs) Last Charted?? Minimum?? Maximum?? Resp Rate?? 18?? 04/17/2022 07:30?? 17?? 04/16/2022 23:30 ?? 20?? 04/16/2022 19:32?? SBP?? 103?? 04/16/2022 23:30?? 96?? 04/16/2022 11:16 ?? 116?? 04/16/2022 11:50?? DBP?? 66?? 04/16/2022 23:30?? L??42?? 04/16/2022 11:16 ?? 83?? 04/16/2022 11:50? General Appearance: The patient is in NAD. Cardiovascular: RRR S1 and S2 heard with no M/R/G. Respiratory: ??Breath sounds clear to auscultation bilaterally. No wheezing. Good air movement throughout both lungs. GI: Epigastric tenderness but otherwise soft.,?? Nontender and nondistended. Normal bowel sounds present throughout abdomen.?? MS: ??No edema or erythema in the lower extremities. Neuro: ??No slurred speech. ??Patient seen moving their upper and lower extremities independently. Psych: Appropriate and pleasant. Lines: Peripheral IV in place.? Results No labwork in the last 24 hours. Assessment/Plan SIMA??JUDSON??is a??41 Years??Female??with chronic pancreatitis, recurrent acute pancreatitis, alcohol use disorder, depression, PTSD, endometriosis presented for complaints of epigastric and left upper quadrant pain ongoing for 1 month, watery diarrhea ongoing for 1 month, nausea/vomiting/inability to take p.o. for 2 days found to have pancreatitis. ?? Acute Issues (active management): Chronic pancreatitis: She was willing to advance diet to regular diet but was unable to tolerate with increased pain wentback to full liquid diet.?? She was agreeable to transitioning from IV to p.o. Dilaudid starting 04/18. ?? Plan: ??? Full liquid diet (from regular) ??? Pain regimen: Dilaudid 1 mg IV every 4 hours as needed, oxycodone 5 mg every 6 hours p.o. ??? LR 75 cc an hour ??? GI outpatient follow-up ??? Outpatient MRI with and without contrast pancreatic mass protocol.?? PCP to order and follow-up ??? Continue pancrelipase ??? Imodium??as needed ?? Stable Issues: Elevated LFTs: Downtrending from previous.?? Hepatic steatosis on CT scan. ?? Chronic Issues: PTSD/anxiety/depression: continue aripiprazole, trazodone, Ativan twice daily, Sertraline, Gabapentin GERD: Continue pantoprazole History of alcohol dependence??? She says that she has not drinking alcohol so CIWA was not ordered ?? DVT Prophylaxis:??Enoxaparin 40mg?? Diet:??Full Liquid Diet: No Red Liquids Code Status:??Full Resuscitation?? PT ordered?:??No active Physical Therapy Orders.?? Dispo:??Home? Note * Elisa Mack RN: PERFORM Event Display: Discharge/Transfer Note Hospital Authored Date: [id number] Nursing Discharge Note Entered On: 04/19/2022 14:44 EST Performed On: 04/19/2022 14:44 EST by Elisa Mack RN Nursing Discharge Note 2 Discharge Time : 04/19/2022 14:30 EST Discharge Level of Care at Discharge : Home/Senior Care/Foster Care Patient Left Unit Via : Wheelchair Patient Accompanied Off Unit with : Other: uber DC Instructions Provided & Signed by Pt : Yes Patient Understands D/C Instructions : Yes Patient Instructions Discharge Signed : Yes Did Pt have Specialty Bed or Wound Vac : No Elisa Mack RN - 04/19/2022 14:44 EST * Richi Escobedo MD: MODIFY, MODIFY, MODIFY, MODIFY, PERFORM Event Display: Discharge/Transfer Note Hospital Authored Date: Patient: ??SIMA ROPER ? Age:??41 Years?Sex:??Female?:??1980?? Patient Information Discharge Location: [facility] Primary Care Physician: Marissa Malik NP Admit Date/Time: 04/14/22 15:17 Discharge Disposition Discharge Disposition: Home: No Services Discharge Diagnosis Depression Pancreatitis, chronic Post traumatic stress disorder (PTSD) ?? _ Discharge Medications Acamprosate (acamprosate 333 mg oral delayed release tablet)?2?tab(s)?666?Milligram?By Mouth?3 times a day?for 30?Days Aripiprazole (Abilify 10 mg oral tablet)?10?Milligram?1?tablet?By Mouth?Daily at bedtime?for 30?Days Doxepin (doxepin 50 mg oral capsule)?1?capsule?50?Milligram?By Mouth?Daily at bedtime?for 30?Days Fluticasone Nasal (fluticasone 50 mcg/inh nasal spray)?See Instructions?SHAKE LIQUID AND USE 1 SPRAY IN EACH NOSTRIL TWICE DAILY Gabapentin (gabapentin 600 mg oral tablet)?See Instructions?1 tablet in the morning and 2 tablets at bedtime Hydromorphone (Dilaudid 2 mg oral tablet)?1?tab(s)?2?Milligram?By Mouth?Every 4 hours?as needed?Pain , Severe Loperamide (loperamide 2 mg oral capsule)?2?Milligram?1?capsule?By Mouth?Every 3 hours?as needed?Loose Stool Lorazepam (LORazepam 1 mg oral tablet)?1?tab(s)?1?Milligram?By Mouth?2 times a day?as needed?as needed for anxiety Morphine (morphine 15 mg/8 to 12 hr oral tablet, extended release)?1?tab(s)?15?Milligram?By Mouth?Every 12 hours?for 7?Days Multivitamin (multivitamin Multiple Vitamins oral tablet)?1?tab(s)?By Mouth?Daily?for 30?Days nalOXONE (Narcan 4 mg/0.1 mL nasal spray)?4?Milligram?Nares, Both?Once Pancrelipase (Creon 12,000 units oral delayed release capsule)?2?capsule?By Mouth?3 times a day Pantoprazole (pantoprazole 40 mg oral delayed release tablet)?1?tab(s)?By Mouth?Daily Prazosin (prazosin 5 mg oral capsule)?5?Milligram?1?capsule?By Mouth?Daily at bedtime?for 30?Days Sertraline (Zoloft 100 mg oral tablet)?2?tab(s)?200?Milligram?By Mouth?Daily?for 30?Days Trazodone (traZODone 100 mg oral tablet)?TAKE 1 TABLET BY MOUTH EVERY NIGHT AT BEDTIME ? Quality Measures Tobacco Use Treatment:? Medications Started Hydromorphone (Dilaudid 2 mg oral tablet)?1?tab(s)?2?Milligram?By Mouth?Every 4 hours?as needed?Pain , Severe Loperamide (loperamide 2 mg oral capsule)?2?Milligram?1?capsule?By Mouth?Every 3 hours?as needed?Loose Stool nalOXONE (Narcan 4 mg/0.1 mL nasal spray)?4?Milligram?Nares, Both?Once Morphine (morphine 15 mg/8 to 12 hr oral tablet, extended release)?1?tab(s)?15?Milligram?By Mouth?Every 12 hours?for 7?Days Medications Discontinued No medications discontinued Doses Changed No medications changed PCP Follow-Up/Heads-Up Ensure follow-up with gastroenterology She needs MRI??with and without contrast??pancreatic??protocol Short course of narcotics prescribed.?? Please evaluate if narcotics contract is indicated. Repeat LFTs at PCP appointment Future Appointments 2021 11:15 AM EST ?? With: Where: [facility] Radiology [facility] [address] [place] [address]- Monday 2:00 PM EST ?? With: Helena GALLEGOS, Marissa Hernandez Where: [facility] [address] [place] [address]- Hospital Course 41-year-old woman with chronic pancreatitis, recurrent acute pancreatitis, alcohol use disorder, depression, PTSD, endometriosis who presented for complaints of epigastric and left upper quadrant pain ongoing for 1 month, watery diarrhea ongoing for 1 month, nausea/vomiting/inability to take p.o. for 2 days prior to admission. ?? Patient reports that her first episode of pancreatitis was 10 years ago, with the last episode being last year. She continues to use alcohol, with the last alcohol binge being a month ago. She reports that previously she was on Creon, however stopped taking it 2 to 3 months ago. She reports pain worsens with eating, sharp, 10 out of 10, unchanged with bowel movements, constant. She reports 4-5 bowel movements every day, watery with oil in it. ?? On presentation, patient was afebrile, pulse in the 60s, hemodynamically stable, saturating well onroom air. Labs significant for CBC WNL, BMP WNL except potassium 3.0, BUN 7/creatinine 0.7, AST 56,ALT 80, total bilirubin 0.6, lactate 2.5?1.0. Lipase 12. CT abdomen with IV contrast showed noevidence of acute pancreatitis, chronic pancreatic atrophy with dilated pancreatic duct up to 0.7 cm, and parenchymal calcifications. ?? She was treated supportively with IV pain medication, fluids and clear liquid diet. She was weaned to p.o. pain medication and regular low-fat diet on day of discharge with bearable pain. Patient wascomfortable in discharge from the hospital on p.o. pain medications and regular low-fat diet. ?? Objective Assessment and Plan SIMA??JUDSON??is a??41 Years??Female??with chronic pancreatitis, recurrent acute pancreatitis, alcohol use disorder, depression, PTSD, endometriosis presented for complaints of epigastric and left upper quadrant pain ongoing for 1 month, watery diarrhea ongoing for 1 month, nausea/vomiting/inability to take p.o. for 2 days found to have pancreatitis. ?? Chronic pancreatitis: She is been discharged from the hospital on short course of p.o. narcotics including p.o. Dilaudid and Morphine ER (oxycodone ER requires PA).?? She was told that she needs to follow-up with her primary care physician in order to renew narcotics order.?? She states that due to PT 1, the earliest that she can be seen by her primary care physician is 04/25/2022.?? She is high risk according to the opioid risk tool with personal history of alcohol and illegal drug use so will defer to PCP on whether to continue p.o. narcotics and a narcotics contract. ?? Recommendations: ?Low-fat regular diet ?Dilaudid 2 mg p.o. every 4 hours as needed??while awake??(28 tablets),??Morphine 15mg ER BID (14 tablets) ?Alcohol cessation??strongly encouraged ??? GI outpatient follow-up ??? Outpatient MRI with and without contrast pancreatic mass protocol.?? PCP to order and follow-up ??? Continue pancrelipase ??? Imodium??as needed ?? Stable Issues: Elevated LFTs: Stable. Hepatic steatosis on CT scan. ?? Recommendations: ??? Repeat LFTs at PCP appointment ?? Chronic Issues: PTSD/anxiety/depression: continue aripiprazole, trazodone, Ativan twice daily, Sertraline, Gabapentin GERD: Continue pantoprazole History of alcohol dependence??? She says that she has not drinking alcohol so CIWA was not ordered.?? She agreed to be discharged with acamprosate 666mg TID. ? Measurements?? Height: 165 cm (04/19/22) Weight: 80 kg (04/14/22) Dry Weight: 80 kg (04/14/22) Body Mass Index:??29.38 kg/m2??High (04/14/22) ? Vital Signs?? Temperature: 97.7 DegF (04/19/22 11:15:00) Temperature Route: Oral (04/19/22 11:15:00) Pulse Rate: 64 bpm (04/19/22 11:15:00) Respiratory Rate: 18 br/min (04/19/22 11:15:00) Systolic Blood Pressure: 98 mm Hg (04/19/22 11:15:00) Diastolic Blood Pressure: 65 mm Hg (04/19/22 11:15:00) Blood pressure sites: Arm, right (04/19/22 11:15:00) Mean Arterial Pressure: 76 mm Hg (04/19/22 11:15:00) Pulse Pressure: 33 mm Hg (04/19/22 11:15:00) Oxygen Saturation: 100 % (04/19/22 11:15:00) Mode of Delivery (Oxygen): Room air (04/19/22 11:15:00) Early Warning Score: 3 (04/19/22 11:17:01) ? Ventilator Settings?? No qualifying data available. ? Intake/Output? 04/14 15:17 04/19 07:00 04/18 07:00 04/17 07:00 04/16 07:00 ?? 04/19 12:19 04/19 12:19 04/19 06:59 04/18 06:59 04/17 06:59 Intake ? 6475 ?0 ?240 ? 1725 ? 1140 Output ?0 ?0 ?0 ?0 ?0 Net Total ? 6475 ?0 ?240 ? 1725 ? 1140 ? Urine Count ?6 ?0 ?1 ?3 ?2 ? . Physical Exam Vital Signs (24 hrs) Last Charted?? Minimum?? Maximum?? Resp Rate?? 18?? 04/19/2022 11:15?? 16?? 04/19/2022 05:15 ?? 20?? 04/18/2022 19:06?? SBP?? 98?? 04/19/2022 11:15?? L??87?? 04/19/2022 07:45 ?? 110?? 04/18/2022 23:49?? DBP?? 65?? 04/19/2022 11:15?? L??51?? 04/19/2022 07:45 ?? 71?? 04/18/2022 19:06? General Appearance: The patient is in NAD. Cardiovascular: RRR S1 and S2 heard with no M/R/G. Respiratory: ??Breath sounds clear to auscultation bilaterally. No wheezing. Good air movement throughout both lungs. GI: Epigastric tenderness but otherwise soft.,?? Nontender and nondistended. Normal bowel sounds present throughout abdomen.?? MS: ??No edema or erythema in the lower extremities. Neuro: ??No slurred speech. ??Patient seen moving their upper and lower extremities independently. Psych: Appropriate and pleasant. Lines: Peripheral IV in place.? Pending Results Add On Lab Order ordered on 04/16/2022 COVID-19 (2019 Novel Coronavirus) PCR ordered on 04/18/2022 Hold Blue Top Tube ordered on 04/14/2022 Patient Education Titles Low-Fat Diet?? Naloxone Nasal [place]?? Hydromorphone Oral Tablet?? Oxycodone Oral Tablet?? Discharge Instructions for Chronic Pancreatitis?? Follow-Up Appointments Added Follow Up ?Time Frame ?Comments Conner BUTTERFIELD, Lacy?1 month Helena GALLEGOS, Marissa Hernandez?3-5 day: call to discuss follow up visit Patient Instructions You were seen at [facility] for??chronic pancreatitis. ??You were treated with ??IV pain medication, fluids??with improvement of your symptoms. ?? Here is what you need to do: ?Follow-up with PCP in 3 to 5 days ?Eat a low-fat??diet ?Absolutely abstain from alcohol ?Follow-up with gastroenterology next month ?You need a??MRI to evaluate your pancreas. ?Take Dilaudid??and oxycodone as needed for pain.?? Narcan also prescribed??if needed.?? Primary care physician can??refill the prescription if??needed ??? If you have worsening abdominal pain, difficulty??eating or drinking, please call your primary care physician or present to the emergency department Post Discharge Care Diet: Low Fat 50 Gram Non Cardiac Diet Discharge ?04/19/22 12:19:00 EST Discharge Prescriptions ?ePrescribed, ??04/19/22 12:19:00 EST Home Health Face to Face ^HomeHealthFTF Results Discharge Labs BLOOD COUNT & DIFF WBC 5.9 k/mm3 ()?? 04/19/2022 00:45 RBC 4.03 m/mm3 (Low)?? 04/19/2022 00:45 Hgb 13.0 Gm/dL ()?? 04/19/2022 00:45 Hct 41.1 % ()?? 04/19/2022 00:45 MCV 102.0 femtoliters (High)?? 04/19/2022 00:45 MCH 32.3 pg ()?? 04/19/2022 00:45 MCHC 31.6 g/dL (Low)?? 04/19/2022 00:45 Platelet Count 224 k/mm3 ()?? 04/19/2022 00:45 RDW-SD 46.5 femtoliters ()?? 04/19/2022 00:45 MPV 9.8 femtoliters ()?? 04/19/2022 00:45 Nucleated RBC (Automated) 0.0 #/100 WBC'S ()?? 04/19/2022 00:45 Abs. NRBC 0.0 k/mm3 ()?? 04/19/2022 00:45 Abs. Neut 5.9 k/mm3 ()?? 04/14/2022 03:55 Abs. Lymph 1.6 k/mm3 ()?? 04/14/2022 03:55 Abs. Pleasants 0.7 k/mm3 ()?? 04/14/2022 03:55 Abs. Eo 0.0 k/mm3 ()?? 04/14/2022 03:55 Abs. Baso 0.0 k/mm3 ()?? 04/14/2022 03:55 Neut % 71.4 % ()?? 04/14/2022 03:55 Lymph % 19.3 % ()?? 04/14/2022 03:55 Pleasants % 8.7 % ()?? 04/14/2022 03:55 Eos % 0.2 % ()?? 04/14/2022 03:55 Baso % 0.2 % ()?? 04/14/2022 03:55 Imm Gran 0.2 % ()?? 04/14/2022 03:55 Abs. Imm Gran 0.0 k/mm3 ()?? 04/14/2022 03:55 ?? CHEM GENERAL Sodium 138 mmol/L ()?? 04/19/2022 00:45 Potassium 5.0 mmol/L ()?? 04/19/2022 00:45 Chloride 96 mmol/L (Low)?? 04/19/2022 00:45 Bicarbonate Level 32 mmol/L (High)?? 04/19/2022 00:45 Anion Gap 10 ()?? 04/19/2022 00:45 Glucose Level 149 mg/dL (High)?? 04/14/2022 03:55 BUN 8 mg/dL ()?? 04/19/2022 00:45 Creatinine-Blood 0.9 mg/dL ()?? 04/19/2022 00:45 Estimated GFR Creatinine 78 ML/MIN/1.73 M2 ()?? 04/19/2022 00:45 Calcium 9.9 mg/dL ()?? 04/14/2022 03:55 Magnesium 2.1 mg/dL ()?? 04/15/2022 00:18 Protein, Total 5.9 Gm/dL (Low)?? 04/14/2022 19:38 Albumin 3.8 Gm/dL ()?? 04/14/2022 19:38 AG Ratio 2.0 ()?? 04/14/2022 03:55 Alkaline Phosphatase 67 units/L ()?? 04/19/2022 00:45 Lipase 12 units/L (Low)?? 04/14/2022 03:55 AST (SGOT) 45 units/L (High)?? 04/19/2022 00:45 ALT (SGPT) 41 units/L (High)?? 04/19/2022 00:45 Bilirubin, Total 0.6 mg/dL ()?? 04/19/2022 00:45 Bilirubin, Direct <0.2 mg/dL ()?? 04/19/2022 00:45 Bilirubin, Indirect Direct bilirubin is less than the measureable limit. Therefore, indirect mg/dL ()?? 04/19/2022 00:45 Lactate 1.0 mmol/L ()?? 04/14/2022 14:08 ?? ENDOCRINE/TUMOR MARKER Serum Qual NEGATIVE mIU/mL ()?? 04/14/2022 03:55 ? MISC. CHEMISTRY Hold Gel Top SPECIMEN DISCARDED AFTER 1 WEEK ()?? 04/14/2022 14:33 ? UA/URINALYSIS Appear/Color, Urine YELLOW ()?? 04/14/2022 03:05 Specific [place], Urine >1.050 (High)?? 04/14/2022 03:05 pH, Urine 7.0 ()?? 04/14/2022 03:05 Albumin, Urine 1+ (Abnormal)?? 04/14/2022 03:05 Glucose, Urine NEGATIVE ()?? 04/14/2022 03:05 Ketones, Urine NEGATIVE ()?? 04/14/2022 03:05 Bilirubin, Urine NEGATIVE ()?? 04/14/2022 03:05 Hemoglobin, Urine NEGATIVE ()?? 04/14/2022 03:05 Nitrite, Urine NEGATIVE ()?? 04/14/2022 03:05 Leukocyte, Urine NEGATIVE ()?? 04/14/2022 03:05 Urobilinogen NORMAL mg/dL ()?? 04/14/2022 03:05 WBC's, Urine <1 /HPF ()?? 04/14/2022 03:05 RBC's, Urine NONE SEEN /HPF ()?? 04/14/2022 03:05 Squamous Epith 4 /HPF ()?? 04/14/2022 03:05 Mucus SLIGHT /LPF ()?? 04/14/2022 03:05 Hold Urine Culture Testing available 48 hours from time of collection. ()?? 04/14/2022 03:05 ?? VIROLOGY COVID-19 POC Result NEGATIVE ()?? 04/14/2022 03:20 ? Imaging(s) ?ECG 12-Lead ?? 04/14/2022 03:16??by Logan BUTTERFIELD, Cristi Meyers ?TWI anterior leads unchanged from previous (02/2022).??NSR. ?CT Abd/Pelvis W/ IV Contrast Only ?? 04/14/2022 11:55??by Prosper Fajardo MD ?No acute abnormality within the abdomen or pelvis. ?? Sequela of chronic pancreatitis with parenchymal atrophy, parenchymal calcifications, and dilation of the main pancreatic duct measuring 7 mm, increased from 2017. While ductal dilation can be seen in the setting of stricture from chronic pancreatitis, consider nonemergent follow-up with MRI to assess for any underlying lesion. ?? Hepatic steatosis. ? 35??minutes spent on discharge * Elisa Mack RN: PERFORM Event Display: Patient Education/Instruction Authored Date: [id number] Inpatient Adult Discharge Instructions [address] [address] Name: SIMA ROPER : 1980 Visit: 04/14/2022 15:17:00 Current Date: 04/19/2022 13:47 Account: [id number] Inpatient Adult Discharge Instructions We would like [...] and their families. Surveys are administered by [employer] ?? If further treatment with your primary care physician or another doctor is recommended, it is important for you to keep the appointment. Call your primary care physician or return to the Emergency Department immediately if your condition worsens, fails to improve, or new symptoms develop. If you need to find a doctor, you can call [facility] for a referral at [phone] or toll free at [phone] [email or web address] [phone]) or log in to [email or web address].. ?? You can view and manage your care through the patient portal or by using a health care rommel of your choosing. [employer] is a website that allows you to securely view your medical information including your hospital discharge summary, office visit summaries, medications and follow-up visits. You can also request appointments, renew medications, and request access to your medical information using a health care rommel of your choosing, or just ask a question. You can enroll at [email or web address] or register during your next office visit. You have been discharged from [facility], Patient Care Unit: D3B. If you have any questions regarding these instructions after you leave, please call us and we will be happy to assist you. [facility] Your Care Team Attending Physician Fanny BUTTERFIELD, Richi Discharging Providers Fanny BUTTERFIELD, Richi Reason for Admission upper left abd pain, hx of pancreatitis. Vomiting 2 days, diarrhea 1month. 10/10 pain. Your Diagnosis Abdominal pain Tests Performed Below is a partial list of the tests performed during your hospitalization. You may have had other tests and procedures not included in this list. Please discuss all test results with your provider. Alk Phos ALT AST Bilirubin Total + Direct BUN CBC CBC w/ Differential Comprehensive Metabolic Panel COVID-19 RNA POC Creatinine Electrolytes HOLD BLUE TUBE?-- Results Pending -- HOLD GEL TUBE Lactate Level Lactic Acid Level Lipase Liver Function Panel Lytes Magnesium Level Serum Qualitative Urinalysis w/hold for Urine Culture CT Abd/Pelvis W/ IV Contrast Only ? You will be contacted within 72 hours with your results. Primary Care Provider Marissa Malik NP Advance Directive Health Care Proxy on File Yes - Health Care Proxy No qualifying data available. Discharge Vitals Temperature: 97.7 DegF Height: 165 cm Pulse Rate: 64 bpm Weight: 80 kg Respiratory Rate: 18 br/min Body Mass Index:??29.38 kg/m2??High Systolic Blood Pressure: 98 mm Hg Body surface area: 1.91 Diastolic Blood Pressure: 65 mm Hg ?? Oxygen Saturation: 100 % ?? Studies Pending All tests and labs ordered during this hospital stay have been completed unless listed below. Please discuss all pending results with your provider listed above in these instructions. ?? Add On Lab Order COVID-19 (2019 Novel Coronavirus) PCR Hold Blue Top Tube (HOLD BLUE TUBE) What to do next Instructions From Your Doctor You were seen at [facility] for??chronic pancreatitis. ??You were treated with ??IV pain medication, fluids??with improvement of your symptoms. ?? Here is what you need to do: ?Follow-up with PCP in 3 to 5 days ?Eat a low-fat??diet ?Absolutely abstain from alcohol ?Follow-up with gastroenterology next month ?You need a??MRI to evaluate your pancreas. ?Take Dilaudid??and oxycodone as needed for pain.?? Narcan also prescribed??if needed.?? Primary care physician can??refill the prescription if??needed ??? If you have worsening abdominal pain, difficulty??eating or drinking, please call your primary care physician or present to the emergency department Discharge Orders Diet:??Low Fat 50 Gram Non Cardiac Diet Scheduled Follow-Up Appointments 2021 11:15 AM EST ?? With: Where: [facility] Radiology [facility] [address], [address] [place] [address]- Monday 2:00 PM EST ?? With: Marissa Malik NP Where: [facility] [address] [address]- You Need to Schedule the Following Appointments Follow Up with??Lacy Prieto MD When??Within 1 month Where: [address] [facility] [place] [address]- Follow Up with??Marissa Malik NP When??Within 3-5 day: call to discuss follow up visit Where: [address] [place] [id number]- Discharge Medications SIMA ROPER :1980 Visit Date:04/14/2022 Medications: Please continue your medications until treatment is completed or stopped by your provider. Medications not listed below should be discontinued. Discuss any questions related to medications with your provider. What How Much When Instructions Next Dose New Acamprosate (acamprosate 333 mg oral delayed release tablet) 2 tab(s) Oral 3 times a day Duration: 30 Days Pickup at [place] [address] 04/19/22 9pm New Hydromorphone (Dilaudid 2 mg oral tablet) 1 tab(s) Oral Every 4 hours as needed for Pain , Severe Pickup at [place] [address] as needed New Loperamide (loperamide 2 mg oral capsule) 1 capsule Oral Every 3 hours as needed for Loose Stool Pickup at [place] [address] as needed New Morphine (morphine 15 mg/ 8 to 12 hr oral tablet, extended release) 1 tab(s) Oral Every 12 hours Duration: 7 Days Pickup at [place] [address] 04/19/22 9pm New nalOXONE (Narcan 4 mg/ 0.1 mL nasal spray) 4 Milligram Nares, Both Once Pickup at [place] [address] n/a Unchanged Aripiprazole (Abilify 10 mg oral tablet) 1 tab(s) Oral Daily at Bedtime Duration: 30 Days 04/19/22 9pm Unchanged Doxepin (doxepin 50 mg oral capsule) 1 capsule Oral Daily at Bedtime Duration: 30 Days 04/19/22 9pm Unchanged Fluticasone Nasal (fluticasone 50 mcg/ inh nasal spray) See instructions SHAKE LIQUID AND USE 1 SPRAY IN EACH NOSTRIL TWICE DAILY ?? 04/20/22 9am Unchanged Gabapentin (gabapentin 600 mg oral tablet) See instructions 1 tablet in the morning and 2 tablets at bedtime ?? 04/19/22 9pm Unchanged Lorazepam (LORazepam 1 mg oral tablet) 1 tab(s) Oral Twice a day as needed for as needed for anxiety as needed Unchanged Multivitamin (multivitamin Multiple Vitamins oral tablet) 1 tab(s) Oral Daily Duration: 30 Days 04/20/22 9am Unchanged Pancrelipase (Creon 12,000 units oral delayed release capsule) 2 capsule Oral 3 times a day 04/19/22 9pm Unchanged Pantoprazole (pantoprazole 40 mg oral delayed release tablet) 1 tab(s) Oral Daily 04/20/22 9am Unchanged Prazosin (prazosin 5 mg oral capsule) 1 capsule Oral Daily at Bedtime Duration: 30 Days 04/19/22 9pm Unchanged Sertraline (Zoloft 100 mg oral tablet) 2 tab(s) Oral Daily Duration: 30 Days 04/20/22 9am Unchanged Trazodone (traZODone 100 mg oral tablet) TAKE 1 TABLET BY MOUTH EVERY NIGHT AT BEDTIME ?? 04/19/22 9pm Pharmacy Information [facility] 3: [address], [place] [id number] [phone] ?? What How Much When Comments Stop Taking Epinephrine (EPINEPHrine 0.1 mg injectable kit) 0.1 Milligram Intramuscular Once as needed for Other Test Results Below is a partial list of the most recent Laboratory test results done prior to this discharge. You may have had other tests and procedures not included in this list. Please discuss all test resultswith your provider. Alk Phos (04/19/2022) ???Alkaline Phosphatase - 67 units/L ALT (04/19/2022) ???ALT (SGPT) - 41 units/L AST (04/19/2022) ???AST (SGOT) - 45 units/L Bilirubin Total + Direct (04/19/2022) ? ?Bilirubin, Total - 0.6 mg/dL? ?Bilirubin, Direct - <0.2 mg/dL? ?Bilirubin, Indirect - Direct bilirubin is less than the measureable limit. Therefore, indirect BUN (04/19/2022) ???BUN - 8 mg/dL CBC (04/19/2022) ???WBC - 5.9 k/mm3???RBC - 4.03 m/mm3???Hgb - 13.0 Gm/dL???Hct - 41.1 %???MCV - 102.0 femtoliters???MCH - 32.3 pg???MCHC - 31.6 g/dL???Platelet Count - 224 k/mm3???RDW-SD - 46.5 femtoliters???MPV - 9.8 femtoliters???Nucleated RBC (Automated) - 0.0 #/100 WBC'S???Abs. NRBC - 0.0 k/mm3 CBC w/ Differential (04/14/2022) ???WBC - 8.3 k/mm3???RBC - 4.43 m/mm3???Hgb - 14.8 Gm/dL???Hct - 43.6 %???MCV - 98.4 femtoliters???MCH - 33.4 pg???MCHC - 33.9 g/dL???Platelet Count - 282 k/mm3???RDW-SD - 45.3 femtoliters???MPV - 9.7 femtoliters???Nucleated RBC (Automated) - 0.0 #/100 WBC'S???Abs. NRBC - 0.0 k/mm3???Abs. Neut - 5.9 k/mm3???Abs. Lymph - 1.6 k/mm3???Abs. [place] - 0.7 k/mm3???Abs. Eo - 0.0 k/mm3???Abs. Baso - 0.0 k/mm3???Neut % - 71.4 %???Lymph % - 19.3 %???Pleasants % - 8.7 %???Eos % - 0.2 %???Baso % - 0.2 %???Imm Gran- 0.2 %???Abs. Imm Gran - 0.0 k/mm3 Comprehensive Metabolic Panel (04/14/2022) ???Sodium - 140 mmol/L???Potassium - 3.0 mmol/L???Chloride - 94 mmol/L???Bicarbonate Level - 30 mmol/L???Anion Gap - 16???Glucose Level - 149 mg/dL???BUN - 7 mg/dL???Creatinine-Blood - 0.7 mg/dL???Estimated GFR Creatinine - 112 ML/MIN/1.73 M2???Calcium - 9.9 mg/dL???Protein, Total - 7.3 Gm/dL???[place] min - 4.9 Gm/dL???AG Ratio - 2.0???Alkaline Phosphatase - 74 units/L???AST (SGOT) - 56 units/L???ALT (SGPT) - 80 units/L???Bilirubin, Total - 0.6 mg/dL COVID-19 RNA POC (04/14/2022) ???COVID-19 POC Result - NEGATIVE Creatinine (04/19/2022) ???Creatinine-Blood - 0.9 mg/dL???Estimated GFR Creatinine - 78 ML/MIN/1.73 M2 Electrolytes (04/19/2022) ???Sodium - 138 mmol/L???Potassium - 5.0 mmol/L???Chloride - 96 mmol/L???Bicarbonate Level - 32 mmol/L???Anion Gap - 10 HOLD GEL TUBE (04/14/2022) ???Hold Gel Top - SPECIMEN DISCARDED AFTER 1 WEEK Lactate Level (04/14/2022) ???Lactate - 1.0 mmol/L Lactic Acid Level (04/14/2022) ???Lactate - 2.5 mmol/L Lipase (04/14/2022) ???Lipase - 12 units/L Liver Function Panel (04/14/2022) ???Protein, Total - 5.9 Gm/dL???Albumin - 3.8 Gm/dL???Alkaline Phosphatase - 62 units/L???AST (SGOT) - 55 units/L???ALT (SGPT) - 60 units/L???Bilirubin, Total - 0.6 mg/dL???Bilirubin, Direct - HEMOLYZED???Bilirubin, Indirect - Unable to calculate Lytes (04/15/2022) ???Sodium - 139 mmol/L???Potassium - 4.4 mmol/L???Chloride - 105 mmol/L???Bicarbonate Level - 27 mmol/L???Anion Gap - 7 Magnesium Level (04/15/2022) ???Magnesium - 2.1 mg/dL Serum Qualitative (04/14/2022) ??? Serum Qual - NEGATIVE Urinalysis w/hold for Urine Culture (04/14/2022) ? ?Appear/Color, Urine - YELLOW? ?Specific [place], Urine - >1.050? ?pH, Urine - 7.0? ?Albumin, Urine - 1+???Glucose, Urine - NEGATIVE???Ketones, Urine - NEGATIVE???Bilirubin, Urine - NEGATIVE???Hemoglobin, Urine - NEGATIVE???Nitrite, Urine - NEGATIVE???Leukocyte, Urine - NEGATIVE???Urobilinogen- NORMAL? ?WBC's, Urine - <1 /HPF? ?RBC's, Urine - NONE SEEN? ?Squamous Epith - 4 /HPF? ?Mucus -SLIGHT???Hold Urine Culture - Testing available 48 hours from time of collection. Immunizations This Visit Given Vaccine Dateinfluenza virus vaccine, inactivated 04/16/2022 Allergies (NKA means No Known Allergies) Bee Stings Pollen acetaminophen ibuprofen Problems Active Problems??(26) Abdominal pain, epigastric?? Abnormal uterine bleeding?? Acute pancreatitis?? Alcohol dependence?? Alcohol dependence in early, early partial, sustained full, or sustained partial remission?? Alcohol use disorder, severe, in early remission, in controlled environment, dependence?? Alcohol withdrawal-induced seizure?? Alcoholic hepatitis?? Alcoholic liver disease?? Attempted suicide - hanging?? Chronic low back pain?? Depression?? Encounter for preventive health examination?? Endometriosis?? Gastritis?? Iron deficiency anemia?? Low back pain without sciatica?? Macrocytic anemia?? Major depressive disorder, recurrent episode, moderate degree?? Mass of right breast?? Menometrorrhagia?? Mood disorder?? Pancreatitis, chronic?? Post traumatic stress disorder (PTSD)?? Severe alcohol dependence?? Sprain of ribs?? Education Materials Below is the list of Educational Leaflet Providered with your Discharge Instructions. Addiction: Your Treatment Options?? Acamprosate Delayed Release Oral Tablet?? Understanding Opioid Medicines for Pain Management?? Managing Chronic Pain: Medicines?? Morphine Extended Release Oral Tablet?? Low-Fat Diet?? Naloxone Nasal [place]?? Hydromorphone Oral Tablet?? Oxycodone Oral Tablet?? Discharge Instructions for Chronic Pancreatitis?? Valuables and Belongings I fully understand and agree that [facility] accepts no responsibility for all my personal [...] Review of Valuable and Belonging List: With witness Date for Pt to Sign Valuables/Belongings: 04/14/22 14:37:00 ?? Other Discharge Information ? Pulmonary Rehab Status?? Pulmonary Rehab Discharge Status?? [...] are strongly encouraged to quit. Please call [facility] [employer] Link at [phone] or [phone]) or log in to [email or web address] for referrals to smoking cessation programs. ?? The National Suicide Prevention Hotline is available 28/11 if you or someone you know needs to find a reason to keep living. By calling 2-748-469-TVplus (5068) you'll be connected to a skilled, trained counselor at a crisis center in your area. INPATIENT DISCHARGE INSTRUCTIONS SIGNATURE SIMA ZAMORA Location:[facility] Registration Date and Time:04/14/2022 15:17 EST Primary Care Physician: Helena GALLEGOS, Marissa Hernandez, Og JUSTO ROPERNA, have received the above patient education materials/instructions and have verbalized understanding. If ambulance or transport services are being used I further acknowledge being given a choice of service. ?? If you need to contact me, please call me at this number: . Patient/Phytopathologist Name: Patient/Phytopathologist Signature: Relationship to Patient: Witness Name/Signature: Date: * Richi Escobedo MD: PERFORM Event Display: Patient Education Leaflets Authored Date: [id number] Addiction: Your Treatment Options ?? 79792 Addiction: Your Treatment Options No single treatment for addiction works for everyone. The treatment that's best for you can depend on many factors. For many people, treatment may be a combination of medicine, behavior change, therapy, lifestyle changes, and support. Medicines Medicines can help with withdrawal symptoms. They can also reduce cravings for the addictive substance. They can blunt its feel-good effects. For example: ??? Methadone, buprenorphine, and naltrexone are used for heroin and other opioid addiction. ??? Acamprosate, disulfiram, and naltrexone are used for treating alcohol addiction. ??? Bupropion, varenicline, or nicotine replacement therapy can help with nicotine addiction. These medicines have proved to be quite helpful for people trying to overcome an addiction. Behavior change treatment ??? Motivational Interviewing. This is a type of counseling that encourages you to change your behavior. The goal is to explore and resolve any mixed feelings you have aboutquitting drug or alcohol use. The therapist helps you figure out and focus on your personal reasonsfor wanting to change. ? Cognitive behavioral therapy (CBT). In this therapy, you figure out your problem behaviors. And you learn ways to change those behaviors. For example, if anger or stressmakes you want to drink, a therapist can help you learn healthy ways to manage those feelings. ??? Community reinforcement approach ([employer]). This therapy uses vouchers help you follow a drug- or alcohol- free lifestyle.?? With each clean urine sample, you get a voucher to use for a reward.?? This helps you stay drug- or alcohol-free while you learn new life skills. ??? Community reinforcement and family training (CRAFT). This therapy counsels and trains your family. The therapist teaches them how to motivate you to seek or continue treatment. This therapy also helps your family recognize family situations that may encourage you to drink or use drugs.? [place] support groups. These groups are run voluntarily by non-health care??professional people.??Their purpose is to support each other emotionally and socially by sharing their experiences with substance abuse and mentoring others through the recovery process. Many of these groups are based on the 12- step recovery model, and have sessions available for every type of addiction??(for example, AA or Alcoholics Anonymous; NA or Narcotics Anonymous). ??? Individualized drug counseling (IDC). This commonly practiced form of therapy typically incorporate the disease model of addiction and the spiritual dimension of recovery while alsofocusing on behavioral change through participation in 12-step programs. Last Reviewed Date: 2016 ?? 0012-8123 [employer]. All rights reserved. This information is not intended as a substitute for professional medical care. Always follow your healthcare professional's instructions. ?? * Richi Escobedo MD: PERFORM Event Display: Patient Education Leaflets Authored Date: [id number] Acamprosate Delayed Release Oral Tablet ?? 87698-451 Acamprosate Delayed Release Oral Tablet Uses For treating alcohol dependence. ?? Instructions Swallow the medicine without crushing or chewing it. This medicine may be taken with or without food. Store at room temperature away from heat, light, and moisture. Do not keep in the bathroom. It is important that you keep taking each dose of this medicine on time even if you are feeling well. If you forget to take a dose on time, take it as soon as you remember. If it is almost time for thenext dose, do not take the missed dose. Return to your normal dosing schedule. Do not take 2 doses of this medicine at one time. Drug interactions can change how medicines work or increase risk for side effects. Tell your healthcare providers about all medicines taken. Include prescription and kmyb-yty-hjgafkw medicines, vitamins, and herbal medicines. Speak with your doctor or pharmacist before starting or stopping any medicine. Tell your doctor if symptoms do not get better or if they get worse. Keep all appointments for medical exams and tests while on this medicine. ?? Cautions Tell your doctor and pharmacist if you ever had an allergic reaction to a medicine. Some patients taking this medicine have experienced serious side effects. Please speak with your doctor to understand the risks and benefits associated with this medicine. Do not use the medication any more than instructed. Your ability to stay alert or to react quickly may be impaired by this medicine. Do not drive or operate machinery until you know how this medicine will affect you. Do not drink beverages with alcohol while on this medicine. Contact your doctor if you notice a change in the amount or darkening of your urine. Family should check on the patient often. Call the doctor if patient becomes more depressed, has thoughts of suicide, or shows changes in behavior. Tell the doctor or pharmacist if you are , planning to be , or . Do not share this medicine with anyone who has not been prescribed this medicine. ?? Side Effects The following is a list of some common side effects from this medicine. Please speak with your doctor about what you should do if you experience these or other side effects. ??? decreased appetite ??? bloating ??? constipation or diarrhea ??? dizziness or drowsiness ??? lack of energy and tiredness ??? headaches ??? joint or muscle pain ??? nausea and vomiting ??? problems with sexual functions or desire ??? stomach pain ??? weight gain ??? weight loss Call your doctor or get medical help right away if you notice any of these more serious side effects: ??? severe or persistent abdominal pain ??? coughing up blood or vomit that looks like coffee grounds ??? fainting ??? hearing loss ??? rapid heartbeat ??? mood changes ??? seizures ??? dark, tarry stool ??? thirst ??? blurring or changes of vision A few people may have an allergic reaction to this medicine. Symptoms can include difficulty breathing, skin rash, itching, swelling, or severe dizziness. If you notice any of these symptoms, seek medical help quickly. ?? Extra Please speak with your doctor, nurse, or pharmacist if you have any questions about this medicine. ?? [email or web address] IMPORTANT NOTE: This document tells you briefly how to take your medicine, but it does not tell youall there is to know about it. Your doctor or pharmacist may give you other documents about your medicine. Please talk to them if you have any questions. Always follow their advice. There is a more complete description of this medicine available in Latvian. Scan this code on your smartphone or tablet or use the web address below. You can also ask your pharmacist for a printout. If you have any questions, please ask your pharmacist. The display and use of this drug information is subject to Terms of Use. Copyright(c) 2021 [employer]. ?? The [employer]. All rights reserved. This information is not intended as a substitute for professional medical care. Always follow your healthcare professional's instructions. ?? * Richi Escobedo MD: PERFORM Event Display: Patient Education Leaflets Authored Date: [id number] Understanding Opioid Medicines for Pain Management ?? 70141 Understanding Opioid Medicines for Pain Management Opioids are medicines that can help ease pain. They are stronger than most nybw-cue-azqprwf pain relievers and must be prescribed by a healthcare provider. They can be used to treat both acute and chronic pain that ranges from moderate to severe. Opioids can be safe and effective when used correctly. But they do come with serious risks and side effects. For this reason, they should only be used if other medicines or treatments have not done enough to ease or manage pain.?? What is pain? Pain is your body???s way of telling you something is wrong. It makes you pull your hand away from a flame or avoid walking on an injured leg. Pain starts in receptor cells found beneath the skin andin organs throughout the body. When you are sick or injured, these receptor cells send signals along nerve pathways to the spinal cord, which then sends the signals to the brain. The brain interprets the signals as pain. In response, it sends back signals to protect the body. The brain also releases its own natural painkillers called endorphins to help reduce pain. Once the source of the pain heals, the pain often goes away.? Types of pain Pain can one be of 2 types: acute or chronic. Both types respond to treatment. ??? Acute pain typically lasts fewer than 3 months. It goes away when the cause is treated. Common causes of acute pain include injury or illness. Surgery can lead to short-term pain during healing. And women have acute pain during and after childbirth. In some cases, acute pain can lead to chronic pain over time. ??? Chronic pain often lasts longer than 3 months. This includes pain that comes and goes or that is continuous. Chronic pain may be due to an ongoing health problem, such as arthritis. Or it may linger after an injury that has healed, such as a broken bone. Problems with the body???s pain-control system may also lead to chronic pain. Sometimes, chronic pain can occur with no clear cause.? The pain cycle Pain can affect all aspects of your life. For example, sleep, mood, activity, and energy level are all affected by pain. Being tired, depressed, or inactive makes the pain worse and harder to cope with. This leads to a cycle of pain. ?? How opioids work Opioids work by attaching to special receptors found in the brain, spinal cord, and other organs. When opioids attach to these receptors, they can block or suppress how you feel pain. Opioids can also make you feel good or relaxed. They affect areas of the brain that produce feelings of pleasure.? Types of opioids There are 2 types of opioids: short-acting/immediate-release (SA/IR) and long-acting/extended-release (LA/ER). Short-acting opioids work faster than long-acting opioids. But they give pain relief foronly short periods. Long- acting opioids work slower than short-acting opioids. But they ease pain for longer periods. Many opioids come in both short- and long-acting formulas. They include: ??? Codeine with acetaminophen ??? Fentanyl ??? Hydrocodone (with or without acetaminophen) ??? Hydromorphone ??? Meperidine ??? Methadone ??? Morphine ??? Oxycodone (with or without acetaminophen) ??? Tramadol If you are prescribed opioids, you will likely be started on a short-acting type at the lowest dose. The dose may then be adjusted as needed based on your response to the medicine and follow-up with your healthcare provider. If appropriate, you may start using a long-acting type opioid. In some cases, you may be prescribed both types of opioids to help manage different types of pain. Any changes will also depend on how you handle pain and side effects from the medicine. Don't take opioids with benzodiazepines, such as alprazolam or lorazepam. Combining these medicinescan have serious risks. These include extreme sleepiness, slowed breathing, and . Tell your healthcare provider if you are taking benzodiazepines. ?? Studies show that opioids provide short-term help for moderate to severe pain. But the benefits of long-term use of opioids for treating pain remain unclear. You should only stay on opioids if they continue to improve pain and function without raising the risks to your health. ?? How opioids are given Most opioids are taken by mouth. They often come in pill form. But some may come in the form of liquids and even sweetened lozenges. Certain opioids also may be injected under the skin, into a muscle, or into a vein. Or they may be absorbed through the skin via a patch. ?? Know your options Keep in mind that opioids are not the only option for treating pain. Non-opioid options may work just as well. They may have fewer risks and side effects. Non- opioid options can include:? Other pain relievers, such as acetaminophen or nonsteroidal anti-inflammatory drugs (NSAIDs) such as ibuprofen or naproxen ??? Other classes of medicines such as anticonvulsants, antidepressants, and muscle relaxers? Exercise and physical therapy? Cognitive behavioral therapy, which can help youlearn different ways to respond and cope with pain? Mind/body therapies such as deep breathing, distraction, visualization, meditation, or biofeedback? Complementary therapies such as massage, acupuncture and acupressure, or personal care attendant? Various procedures, such as transcutaneous electrical nerve stimulation (TENS), implantation of a spinal pump, and nerve ablation? Last Reviewed Date: 2019 ?? 1323-0019 The [employer]. All rights reserved. This information is not intended as a substitute for professional medical care. Always follow your healthcare professional's instructions. ?? CT Abdomen and Pelvis W contrast IV * [facility] , CIS S: TRANSCRIBE Tana BUTTERFIELD, Prosper Sandoval: VERIFY Event Display: Result: Authored Date: [id number] CT Abd/Pelvis W/ IV Contrast Only Hx of Present Illness: vomiting since yesterday. reports chronic pancreatitis d t alcohol. reports decreased urinae output; Reason: Other:; LLQ abdominal pain; Clinical Question(s): Obstruction; Order Comment: TECHNIQUE: Spiral CT through the abdomen and pelvis with IV contrast formatted in 3 planes. 100 cc of Omnipaque 300 was administered intravenously. This study was performed without oral contrast. Weight-based protocol using automatic tube modulation was used to optimize exposure parameters. CTDIvol Body: 15.30 mGy, DLP Body: 846 mGy*cm. COMPARISON: CT abdomen pelvis from 02/13/2022 and 07/20/2016 FINDINGS: Emergency Service Worker View Findings, Lines and Tubes: None. Visualized Chest: Lung bases are clear. No pleural effusion. The heart is normal in size. No pericardial effusion. Diaphragm: Normal. Liver: Diffuse low-attenuation throughout the liver parenchyma consistent with hepatic steatosis. No evidence of mass. Gallbladder: No CT evidence of gallbladder pathology. Bile ducts: No biliary ductal dilation. Spleen: Normal. Pancreas: Parenchymal with extensive parenchymal calcifications. There is dilation of the main pancreatic duct which is better delineated on current study compared to noncontrast exam on 02/23/2022. Duct measures 7 mm in the tail (7 202:45). This is increased from 2017. Adrenal glands: Normal. Kidneys and ureters: Lobulated contours. No hydronephrosis, stones, or suspicious masses. Small hypodensities that are too small to characterize are noted, requiring no dedicated follow up. Bladder: Normal. Reproductive organs: Unremarkable. Stomach, small bowel, and large bowel: No abnormal bowel wall thickening or distention. Appendix: Not seen, but no evidence of appendicitis. Peritoneum and retroperitoneum: No ascites or pneumoperitoneum. No omental or mesenteric lesions. Lymph nodes: No enlarged lymph nodes. Blood vessels: Mild vascular calcifications but no aneurysm. No evidence of venous thrombosis. Abdominal and pelvic wall: Unremarkable. Bones: No acute abnormality. IMPRESSION: No acute abnormality within the abdomen or pelvis. Sequela of chronic pancreatitis with parenchymal atrophy, parenchymal calcifications, and dilation of the main pancreatic duct measuring 7 mm, increased from 2017. While ductal dilation can be seen in the setting of stricture from chronic pancreatitis, consider nonemergent follow-up with MRI to assess for any underlying lesion. Hepatic steatosis. A critical result message (Yellow) has been communicated via the [employer] system on 04/14/2022 12:38 PM, Message ID [id number]. WSN: [id number] Ordering Physician: West Garcia Dictated By: Prosper Fajardo MD Dictated Date/Time: 04/14/22 12:38 p Reviewed By: Prosper Fajardo MD Signed By: Prosper Fajardo MD Signed Date/Time: 04/14/22 12:38 pm Transcribed By: DIPESH Transcribed Date/Time: 04/14/22 12:29 pm Patient Care team information Care Team Personnel Name: Marissa Malik NP Position: [facility] PCO Associate Professional Member Role: PCP Address: Address: [address] [place] [address] Name: Elisa Lamar RN Position: [facility] RN Member Role: Primary Care Nurse Name: Zo Segal RN Position: [facility] PCO RN Member Role: Primary Care Nurse [...] Primary Care Nurse Name: Carol Cordova Position: [facility] RN Member Role: Primary Care Nurse Name: Katt Gustafson Position: [facility] RN Member Role: Primary Care [...] Member Role: Primary Care Nurse Name: Tasha RNAshlyn Position: [facility] Onco RN Member Role: Primary Care Nurse Name: Jennifer Ignacio RN Position: [facility] [facility] RN Member Role: Primary Care Nurse Name: [facility] Attending Position: [facility] ED Medicine MD Name: Amy Stallworth Position: [facility] ED TA [facility] Member Role: Patient Care Provider Name: Joey Miller RN Position: [facility] ED RN W/OE and Tasks Member Role: Patient Care Provider Name: Bryce Cardenas RN Position: [facility] RN W/OE and Tasks Member Role: Patient Care Provider Name: Keely Farnsworth Position: [facility] ED OA Charge Member Role: ED Secondary History Teacher Care Team Related Persons Name: TATIANNA NGOOg Address: home [address] [address] Name: TEVIN WILL Address: home [address] [place] [address] Name: ALEX WILL Address: home [address] [place] [address] Name: ALEX ROPER Address: home [address] [place] [address]
--- OUTSIDE RECORDS SUMMARY | 2023-09-06 15:45 | XMS_ITS | Continuity of Care Document ---
Author Organization [facility] Primary Car e [place] Address [address] [place] [address]- Care Team Providers Care Senior Ux Designer Name Role Phone Helena GALLEGOS, Marissa Hernandez Primary Care Physician Encounter [facility] Date(s): 03/02/23 - 04/01/23 [facility] [place] [address] [place], [place] [address] Allergies, Adverse Reactions, Alerts Substance [...] 02/03/23 13:42:00 EDT, Route to Pharmacy Electronically, [facility] #[id number], 166, cm, 12/16/22 17:39:00 EDT, Height, 77, kg, 12/12/22 16:21:00... Start Date: 02/03/23 Stop Date: 08/02/23 Status: Ordered Albuterol (Eqv-ProAir HFA) 90 mcg/inh inhalation aerosol 2 puffs, Inhalation, Every 6 hours, # 8.5 Gm, 0 Refills, Maintenance, 02/17/23 18:07:00 EDT, [facility] #[id number], Partial fill upon patient request if the prescription is for a schedule II opioid drug., 2 puffs Inhalation Every 6 hours, 166, c... Start Date: 02/17/23 Status: Ordered busPIRone 15 mg oral tablet 1 tablet = 15 mg, By Mouth, 3 times a day, # 270 tablet, 1 Refills, Maintenance, 02/03/23 13:43:00 EDT, Tablet, [facility] #[id number], Partial fill upon patient request if the prescription is for a schedule II opioid drug., 166, cm, 12/16/22 17:... Start Date: 02/03/23 Stop Date: 08/02/23 Status: Ordered Creon 36,000 units oral delayed release capsule 1 capsule, By Mouth, 3 times a day, # 90 capsule, 3 Refills, Maintenance, 06/08/22 9:09:00 EST, [facility] #[id number], Partial fill upon patient request if the prescription is for a schedule IIopioid drug., 1 capsule By Mouth 3 times a day, 165... Start Date: 06/08/22 Status: Ordered doxepin 50 mg oral capsule 1 capsule = 50 mg, By Mouth, Daily at bedtime, # 90 capsule, 1 Refills, Maintenance, 02/03/23 13:43:00 EDT, Capsule, [facility] #[id number], 166, cm, 12/16/22 17:39:00 EDT, Height, 77, kg, 12/12/22 16:21:00 EDT, Dry Weight Start Date: 02/03/23 Stop Date: 08/02/23 Status: Ordered gabapentin 600 mg oral tablet See Instructions, 1 tablet in the morning and 2 tablets at bedtime, # 270 tablet, 1 Refills, Maintenance, 02/03/23 13:43:00 EDT, Tablet, [facility] #[id number], 90 day supply, 166, cm, 12/16/22 17:39:00 EDT, Height, 77, kg, 12/12/22 16:21:00 EDT,... Start Date: 02/03/23 Status: Ordered lamotrigine 25 mg oral tablet 75 mg, 3, tablet, By Mouth, Daily at bedtime, # 270 tablet, Refills 1, Tot. Refills 1, Maintenance,02/03/23 13:43:00 EDT, Route to Pharmacy Electronically, [facility] #[id number], Partial fill upon patient request if the prescription is for a sc... Start Date: 02/03/23 Stop Date: 08/02/23 Status: Ordered LORazepam 1 mg oral tablet 1 tablet = 1 mg, By Mouth, 3 times a day, PRN as needed for anxiety, # 90 tablet, 3 Refills, Maintenance, 02/03/23 13:44:00 EDT, Tablet, [facility] #[id number], Partial fill upon patient requestif the prescription is for a schedule II opioid elijah... Start Date: 02/03/23 Stop Date: 06/03/23 Status: Ordered multivitamin Multiple Vitamins oral tablet 1 tablet, By Mouth, Daily, # 30 tablet, 1 Refills, Maintenance, 10/01/19 11:23:00 EDT, Tablet, [facility], 1 tablet By Mouth Daily,x30 [...] Maintenance,02/03/23 13:47:00 EDT, Route to Pharmacy Electronically, [facility] #[id number], 166, cm, 12/16/22 17:39:00 EDT, Height, 77, kg, 12/12/22 16:21:00... Start Date: 02/03/23 Stop Date: 08/02/23 Status: Ordered traZODone 100 mg oral tablet 100 mg, 1, tablet, By Mouth, Daily at bedtime, TAKE 1 TABLET BY MOUTH EVERY NIGHT AT BEDTIME, # 90 tablet, Refills 1, Tot. Refills 1, Maintenance, 02/03/23 13:46:00 EDT, Route to Pharmacy Electronically, [facility] #[id number], Partial fill upon... Start Date: 02/03/23 Stop Date: 08/02/23 Status: Ordered Wellbutrin XL 150 mg/24 hours oral tablet, extended release 1 tablet = 150 mg, By Mouth, Every 24 hours, # 90 tablet, 1 Refills, Maintenance, 02/03/23 13:43:00EDT, XL Tablet, [facility] #[id number], Partial fill upon patient request if the prescription is for a schedule II opioid drug., 166 cm, 12/16/22... Start Date: 02/03/23 Stop Date: 08/02/23 Status: Ordered Zithromax 250 mg oral tablet 1 pack/packet, By Mouth, Once, # 6 tablet, 0 Refills, Soft Stop, 02/17/23 18:07:00 EDT, Tablet, [facility] #[id number], Partial fill upon patient request if the prescription is for a schedule IIopioid drug., Quintin cm, 02/17/23 17:52:00 EDT, [facility]... Start Date: 02/17/23 Status: Ordered Problem List Condition Confirmation Course [...] Care Team Personnel Name: Helena ELMarissa Position: [facility] PCO Associate Professional Member Role: PCP Address: Address: [address] [place] [address] [place], [place] [address] Name: Elisa Lamar RN Position: [facility] RN Member Role: Primary Care Nurse Name: Zo Segal RN Position: [facility] AMB Nurse Member Role: Primary Care Nurse Name: Antonia Mtz RN Position: [facility] RN Member Role: Primary Care Nurse Name: Milla Emmanuel RN Position: [facility] SN RN Member Role: Primary Care Nurse Name: Carol Min [place] Position: [facility] RN Member Role: Primary Care Nurse Name: Katt Gustafson Position: [facility] RN Member Role: Primary Care Nurse Name: Ashely Pacheco Position: [facility] RN Member Role: Primary Care Nurse Name: Miri Espitia RN Position: [facility] AMB Nurse [...] Persons Name: TATIANNA NGOOg Address: home [address] [facility] [address] [place] [id number] Name: TEVIN WILL Address: home [address] [place] [address] Name: ALEX WILL Address: home [address] [place] [address] Name: ALEX ROPER Address: home [address] [place] [address] [place] [address]
--- OUTSIDE RECORDS SUMMARY | 2023-09-06 15:45 | XMS_ITS | Continuity of Care Document ---
Author Organization [facility] Primary Car e [employer] Address [address] [place] [address]- Care Team Providers Care Road Traffic Controller Name Role Phone Marissa Malik NP Primary Care Physician Encounter [facility] Date(s): 07/27/22 - 08/26/22 [facility] Care [place] [address] [place], [place] [address] Allergies, Adverse Reactions, Alerts Substance [...] 08/16/22 13:06:00 EDT, Route to Pharmacy Electronically, [facility] #[id number], 165, cm, 07/19/22 13:50:00 EDT, Height, 77.5, kg, 07/19/22 13:50:0... Start Date: 08/16/22 Stop Date: 12/14/22 Status: Ordered acamprosate 333 mg oral delayed release tablet 2 tablet = 666 mg, By Mouth, 3 times a day, # 180 tablet, 0 Refills, Maintenance, 04/19/22 12:37:00EST, CR Tablet, [facility], Partial fill upon patient request if the prescription is for a schedule II opioid drug., 165, cm, 04/19/22 11... Start Date: 04/19/22 Stop Date: 05/19/22 Status: Ordered busPIRone 15 mg oral tablet 1 tablet = 15 mg, By Mouth, 3 times a day, # 90 tablet, 3 Refills, Maintenance, 08/16/22 13:06:00 EDT, Tablet, [facility] #[id number], Partial fill upon patient request if the prescription is for a schedule II opioid drug., 165, cm, 07/19/22 13:5... Start Date: 08/16/22 Stop Date: 12/14/22 Status: Ordered Creon 36,000 units oral delayed release capsule 1 capsule, By Mouth, 3 times a day, # 90 capsule, 3 Refills, Maintenance, 06/08/22 9:09:[id number], Partial fill upon patient request if the prescription is for a schedule IIopioid drug., 1 capsule By Mouth 3 times a day, 165... Start Date: 06/08/22 Status: Ordered doxepin 50 mg oral capsule 1 capsule = 50 mg, By Mouth, Daily at bedtime, # 30 capsule, 3 Refills, Maintenance, 08/16/22 13:06:00 EDT, Capsule, [facility] #[id number], 165, cm, 07/19/22 13:50:00 EDT, Height, 77.5, kg, 07/19/22 13:50:00 EDT, Dry Weight Start Date: 08/16/22 Stop Date: 12/14/22 Status: Ordered fluticasone 50 mcg/inh nasal spray See Instructions, SHAKE LIQUID AND USE 1 SPRAY IN EACH NOSTRIL TWICE DAILY, # 15.8 mL, 3 Refills, 03/23/21 16:18[id number], SHAKE LIQUID AND USE 1 SPRAY IN EACH NOSTRIL TWICE DAILY, 164, cm, 03/23/21 15:58:00 EST, Height, 86.... Start Date: 03/23/21 Status: Ordered gabapentin 600 mg oral tablet See Instructions, 1 tablet in the morning and 2 tablets at bedtime, # 90 tablet, 3 Refills, Maintenance, 08/16/22 13:07:00 EDT, Tablet, [facility] #[id number], 165, cm, 07/19/22 13:50:00 EDT, Height, 77.5, kg, 07/19/22 13:50:00 EDT, Dry Weight Start Date: 08/16/22 Status: Ordered HYDROmorphone 2 mg oral tablet 1 tablet = 2 mg, By Mouth, Every 6 hours, PRN as needed for pain, # 8 tablet, 0 Refills, Maintenance, 07/19/22 18:31:00 EDT, Tablet, [facility] #[id number], Partial fill upon patient request if the prescription is for a schedule II opioid drug.,... Start Date: 07/19/22 Status: Ordered loperamide 2 mg oral capsule 2 mg, 1, capsule, By Mouth, Every 3 hours, PRN, # 30 capsule, Refills 0, Tot. Refills 0, Acute 04/19/23 11:43:00 EST, Loose Stool, 04/19/22 11:43:00 EST, Route to Pharmacy Electronically, [facility] 3, Partial fill upon patient request if... Start Date: 04/19/22 Stop Date: 04/19/23 Status: Ordered LORazepam 1 mg oral tablet 1 tablet = 1 mg, By Mouth, 3 times a day, PRN as needed for anxiety, # 90 tablet, 3 Refills, Maintenance, 08/16/22 13:07:00 EDT, Tablet, [facility] #[id number], Partial fill upon patient requestif the prescription is for a schedule II opioid elijah... Start Date: 08/16/22 Stop Date: 12/14/22 Status: Ordered multivitamin Multiple Vitamins oral tablet 1 tablet, By Mouth, Daily, # 30 tablet, 1 Refills, Maintenance, 10/01/19 11:23:00 EDT, Tablet, [facility]-, 1 tablet By Mouth Daily,x30 days, 165.1, cm, 10/01/19 8:37:00 EDT, Height, 80.1, kg, 09/19/19 16:30:00 EDT, Dry Weight Start Date: 10/01/19 Stop Date: 11/30/19 Status: Ordered Narcan 4 mg/0.1 mL nasal spray = 4 mg, Nares, Both, Once, # 2 each, 0 Refills, Soft Stop, 04/19/22 12:16:00 EST, [facility], Partial fill upon patient request [...] Maintenance,08/16/22 13:07:00 EDT, Route to Pharmacy Electronically, [facility] #[id number], 165, cm, 07/19/22 13:50:00 EDT, Height, 77.5, kg, 07/19/22 13:50:... Start Date: 08/16/22 Stop Date: 12/14/22 Status: Ordered traMADol 50 mg oral tablet 1 tablet = 50 mg, By Mouth, Every 8 hours, 30 each, TAKE 1 TABLET BY MOUTH EVERY 8 HOURS NEEDED FOR FOR PAIN, # 30 tablet, 1 Refills, Maintenance, 08/16/22 15:31:00 EDT, Tablet, [facility] #[id number], Partial fill upon patient request if the... Start Date: 08/16/22 Status: Ordered traZODone 100 mg oral tablet 100 mg, 1, tablet, By Mouth, Daily at bedtime, TAKE 1 TABLET BY MOUTH EVERY NIGHT AT BEDTIME, # 30 tablet, Refills 3, Tot. Refills 3, Maintenance, 08/16/22 13:07:00 EDT, [id number], Partial fill upon... Start Date: 08/16/22 Stop [...] Associate Professional Member Role: PCP Address: Address: [address] [place] [address] Primary [place], [place] [address] Name: Elisa Lamar RN Position: [facility] [...] Persons Name: KORY NGO Address: home [address] [address] Name: TEVIN WILL Address: home [address] [place] [address] Name: ALEX WILL Address: home [address] [place] [address] Name: ALEX ROPER Address: home [address] [place] [address]
--- OUTSIDE RECORDS SUMMARY | 2023-09-06 15:45 | XMS_ITS | Continuity of Care Document ---
Author Organization [facility] Primary Car e [place] Address [address] [place] [address]- Care Team Providers Care Railway Switchman Name Role Phone Helena GALLEGOS, Marissa Hernandez Primary Care Physician Encounter [facility] Date(s): 01/17/23 - 02/16/23 [facility] Care [place] [address] [place], [place] [address] Allergies, Adverse Reactions, Alerts [...] 02/03/23 13:42:00 EDT, Route to Pharmacy Electronically, [facility] #[id number], 166, cm, 12/16/22 17:39:00 EDT, Height, 77, kg, 12/12/22 16:21:00... Start Date: 02/03/23 Stop Date: 08/02/23 Status: Ordered acamprosate 333 mg oral delayed release tablet 2 tablet = 666 mg, By Mouth, 3 times a day, # 180 tablet, 0 Refills, Maintenance, 04/19/22 12:37:00EST, CR Tablet, [facility], Partial fill upon patient request if the prescription is for a schedule II opioid drug., 165, cm, 04/19/22 11... Start Date: 04/19/22 Stop Date: 05/19/22 Status: Ordered busPIRone 15 mg oral tablet 1 tablet = 15 mg, By Mouth, 3 times a day, # 270 tablet, 1 Refills, Maintenance, 02/03/23 13:43:00 EDT, Tablet, [facility] #[id number], Partial fill upon patient request if the prescription is for a schedule II opioid drug., 166, cm, 12/16/22 17:... Start Date: 02/03/23 Stop Date: 08/02/23 Status: Ordered Creon 36,000 units oral delayed release capsule 1 capsule, By Mouth, 3 times a day, # 90 capsule, 3 Refills, Maintenance, 06/08/22 9:09:00 EST, [facility] #[id number], Partial fill upon patient request if the prescription is for a schedule IIopioid drug., 1 capsule By Mouth 3 times a day, 165... Start Date: 06/08/22 Status: Ordered doxepin 50 mg oral capsule 1 capsule = 50 mg, By Mouth, Daily at bedtime, # 90 capsule, 1 Refills, Maintenance, 02/03/23 13:43:00 EDT, Capsule, [facility] #[id number], 166, cm, 12/16/22 17:39:00 EDT, Height, 77, kg, 12/12/22 16:21:00 EDT, Dry Weight Start Date: 02/03/23 Stop Date: 08/02/23 Status: Ordered gabapentin 600 mg oral tablet See Instructions, 1 tablet in the morning and 2 tablets at bedtime, # 270 tablet, 1 Refills, Maintenance, 02/03/23 13:43:00 EDT, Tablet, [facility] #[id number], 90 day supply, 166, cm, 12/16/22 17:39:00 EDT, Height, 77, kg, 12/12/22 16:21:00 EDT,... Start Date: 02/03/23 Status: Ordered lamotrigine 25 mg oral tablet 75 mg, 3, tablet, By Mouth, Daily at bedtime, # 270 tablet, Refills 1, Tot. Refills 1, Maintenance,02/03/23 13:43:00 EDT, Route to Pharmacy Electronically, [facility] #[id number], Partial fill upon patient request if the prescription is for a sc... Start Date: 02/03/23 Stop Date: 08/02/23 Status: Ordered LORazepam 1 mg oral tablet 1 tablet = 1 mg, By Mouth, 3 times a day, PRN as needed for anxiety, # 90 tablet, 3 Refills, Maintenance, 02/03/23 13:44:00 EDT, Tablet, [facility] #[id number], Partial fill upon patient requestif the prescription is for a schedule II opioid elijah... Start Date: 02/03/23 Stop Date: 06/03/23 Status: Ordered multivitamin Multiple Vitamins oral tablet 1 tablet, By Mouth, Daily, # 30 tablet, 1 Refills, Maintenance, 10/01/19 11:23:00 EDT, Tablet, [facility], 1 tablet By Mouth Daily,x30 days, [...] Maintenance,02/03/23 13:47:00 EDT, Route to Pharmacy Electronically, [facility] #[id number], 166, cm, 12/16/22 17:39:00 EDT, Height, 77, kg, 12/12/22 16:21:00... Start Date: 02/03/23 Stop Date: 08/02/23 Status: Ordered traZODone 100 mg oral tablet 100 mg, 1, tablet, By Mouth, Daily at bedtime, TAKE 1 TABLET BY MOUTH EVERY NIGHT AT BEDTIME, # 90 tablet, Refills 1, Tot. Refills 1, Maintenance, 02/03/23 13:46:00 EDT, Route to Pharmacy Electronically, [facility] #[id number], Partial fill upon... Start Date: 02/03/23 Stop Date: 08/02/23 Status: Ordered valACYclovir 500 mg oral tablet 500 mg, 1, tablet, By Mouth, 2 times a day, # 6 tablet, Refills 1, Tot. Refills 1, Maintenance, 11/10/22 11:16:00 EDT, Route to Pharmacy Electronically, [facility] #[id number], Partial fill uponpatient request if the prescription is for a schedu... Start Date: 11/10/22 Stop Date: 11/16/22 Status: Ordered Wellbutrin XL 150 mg/24 hours oral tablet, extended release 1 tablet = 150 mg, By Mouth, Every 24 hours, # 90 tablet, 1 Refills, Maintenance, 02/03/23 13:43:00EDT, XL Tablet, [facility] #[id number], Partial fill upon patient request if the [...] Care Team Personnel Name: Helena ELMarissa Position: [facility] PCO Associate Professional Member Role: PCP Address: Address: [address] [place] [id number] Name: Elisa Lamar RN Position: [facility] RN Member Role: Primary Care Nurse Name: Zo Segal RN Position: [facility] AMB Nurse Member Role: Primary Care Nurse Name: Antonia Mtz RN Position: [facility] RN Member Role: Primary Care Nurse Name: Milla Emmanuel RN Position: [facility] SN RN Member Role: Primary Care Nurse Name: Carol Min [place] Position: [facility] RN Member Role: Primary Care Nurse Name: Katt Gustafson Position: [facility] RN Member Role: Primary Care Nurse Name: Ashely Pacheco Position: [facility] RN Member Role: Primary Care Nurse Name: Miri Espitia RN Position: [facility] AMB Nurse Member Role: Primary Care Nurse Name: Maksim Hunt III, RN Position: [facility] RN Member Role: Primary Care Nurse Name: Elisa Fields RN Position: [facility] RN Member Role: Primary Care Nurse Name: Aron Mcginnis RN Position: [facility] SN RN Member Role: Primary Care Nurse Name: Natalia Plata RN Position: [facility] RN Member Role: Primary Care Nurse Name: Kacy Barnhart RN Position: [facility] RN Member Role: Primary Care Nurse Name: Guerline Ramirez RN Position: [facility] RN Member Role: Primary Care Nurse Name: Ashlyn Cordova RN Position: [facility] RN Member Role: Primary Care Nurse Name: Jennifer Ignacio RN Position: [facility] RN Member Role: Primary Care Nurse Care Team Related Persons Name: JENI TATIANNAOg Address: home [address] [address] Name: TEVIN WILL Address: home [address] [place] [address] Name: ALEX WILL Address: home [address] [place] [address] Name: ALEX ROPER Address: home [address] [place] [address]
--- OUTSIDE RECORDS SUMMARY | 2023-09-06 15:45 | XMS_ITS | Continuity of Care Document ---
Author Organization [facility] [place] Address [address] [place] [address]- Care Team Providers Care Social Group Worker Name Role Phone Helena GALLEGOS, Marissa Hernandez Primary Care Physician Encounter [facility] Date(s): 09/02/22 - 10/02/22 [facility] Care [place] [address] [place], [place] [address] Allergies, Adverse Reactions, Alerts [...] 08/16/22 13:06:00 EDT, Route to Pharmacy Electronically, [facility] #[id number], 165, cm, 07/19/22 13:50:00 EDT, Height, 77.5, kg, 07/19/22 13:50:0... Start Date: 08/16/22 Stop Date: 12/14/22 Status: Ordered acamprosate 333 mg oral delayed release tablet 2 tablet = 666 mg, By Mouth, 3 times a day, # 180 tablet, 0 Refills, Maintenance, 04/19/22 12:37:00EST, CR Tablet, [facility], Partial fill upon patient request if the prescription is for a schedule II opioid drug., 165, cm, 04/19/22 11... Start Date: 04/19/22 Stop Date: 05/19/22 Status: Ordered busPIRone 15 mg oral tablet 1 tablet = 15 mg, By Mouth, 3 times a day, # 90 tablet, 3 Refills, Maintenance, 08/16/22 13:06:00 EDT, Tablet, [facility] #[id number], Partial fill upon patient request if the prescription is for a schedule II opioid drug., 165, cm, 07/19/22 13:5... Start Date: 08/16/22 Stop Date: 12/14/22 Status: Ordered Creon 36,000 units oral delayed release capsule 1 capsule, By Mouth, 3 times a day, # 90 capsule, 3 Refills, Maintenance, 06/08/22 9:09:00 [id number], Partial fill upon patient request if the prescription is for a schedule IIopioid drug., 1 capsule By Mouth 3 times a day, 165... Start Date: 06/08/22 Status: Ordered doxepin 50 mg oral capsule 1 capsule = 50 mg, By Mouth, Daily at bedtime, # 30 capsule, 3 Refills, Maintenance, 08/16/22 13:06:00 EDT, Capsule, [facility] #[id number], 165, cm, 07/19/22 13:50:00 EDT, Height, 77.5, kg, 07/19/22 13:50:00 EDT, Dry Weight Start Date: 08/16/22 Stop Date: 12/14/22 Status: Ordered fluticasone 50 mcg/inh nasal spray See Instructions, SHAKE LIQUID AND USE 1 SPRAY IN EACH NOSTRIL TWICE DAILY, # 15.8 mL, 3 Refills, 03/23/21 16:18:00 EST, [facility] #[id number], SHAKE LIQUID AND USE 1 SPRAY IN EACH NOSTRIL TWICE DAILY, 164, cm, 03/23/21 15:58:00 EST, Height, 86.... Start Date: 03/23/21 Status: Ordered gabapentin 600 mg oral tablet See Instructions, 1 tablet in the morning and 2 tablets at bedtime, # 90 tablet, 3 Refills, Maintenance, 08/16/22 13:07:00 EDT, Tablet, [facility] #[id number], 165, cm, 07/19/22 13:50:00 EDT, Height, 77.5, kg, 07/19/22 13:50:00 EDT, Dry Weight Start Date: 08/16/22 Status: Ordered HYDROmorphone 2 mg oral tablet 1 tablet = 2 mg, By Mouth, Every 6 hours, PRN as needed for pain, # 8 tablet, 0 Refills, Maintenance, 07/19/22 18:31:00 EDT, Tablet, [facility] #[id number], Partial fill upon patient request if the prescription is for a schedule II opioid drug.,... Start Date: 07/19/22 Status: Ordered loperamide 2 mg oral capsule 2 mg, 1, capsule, By Mouth, Every 3 hours, PRN, # 30 capsule, Refills 0, Tot. Refills 0, Acute 04/19/23 11:43:00 EST, Loose Stool, 04/19/22 11:43:00 EST, Route to Pharmacy Electronically, [facility], Partial fill upon patient request if... Start Date: 04/19/22 Stop Date: 04/19/23 Status: Ordered LORazepam 1 mg oral tablet 1 tablet = 1 mg, By Mouth, 3 times a day, PRN as needed for anxiety, # 90 tablet, 3 Refills, Maintenance, 08/16/22 13:07:00 EDT, Tablet, [facility] #[id number], Partial fill upon patient requestif the prescription is for a schedule II opioid elijah... Start Date: 08/16/22 Stop Date: 12/14/22 Status: Ordered multivitamin Multiple Vitamins oral tablet 1 tablet, By Mouth, Daily, # 30 tablet, 1 Refills, Maintenance, 10/01/19 11:23:00 EDT, Tablet, [id number], 1 tablet By Mouth Daily,x30 days, 165.1, cm, 10/01/19 8:37:00 EDT, Height, 80.1, kg, 09/19/19 16:30:00 EDT, Dry Weight Start Date: 10/01/19 Stop Date: 11/30/19 Status: Ordered Narcan 4 mg/0.1 mL nasal spray = 4 mg, Nares, Both, Once, # 2 each, 0 Refills, Soft Stop, 04/19/22 12:16:00 EST, [facility] 3, Partial fill upon patient request [...] Maintenance,08/16/22 13:07:00 EDT, Route to Pharmacy Electronically, [facility] #[id number], 165, cm, 07/19/22 13:50:00 EDT, Height, 77.5, kg, 07/19/22 13:50:... Start Date: 08/16/22 Stop Date: 12/14/22 Status: Ordered traMADol 50 mg oral tablet 1 tablet = 50 mg, By Mouth, Every 8 hours, 30 each, TAKE 1 TABLET BY MOUTH EVERY 8 HOURS NEEDED FOR FOR PAIN, # 30 tablet, 0 Refills, Maintenance, 09/02/22 8:19:00 EDT, Tablet, [facility] #[id number], Partial fill upon patient request if the p... Start Date: 09/02/22 Status: Ordered traZODone 100 mg oral tablet 100 mg, 1, tablet, By Mouth, Daily at bedtime, TAKE 1 TABLET BY MOUTH EVERY NIGHT AT BEDTIME, # 30 tablet, Refills 3, Tot. Refills 3, Maintenance, 08/16/22 13:07:00 EDT, Route to Pharmacy Electronically, [facility] #[id number], Partial fill upon... Start Date: 08/16/22 Stop [...] Team Personnel Name: Marissa Malik NP Position: [facility] PCO Associate Professional Member Role: PCP Address: Address: [address] [place] [address] Primary Care [place], [place] [address] Name: Elisa Lamar RN Position: [facility] RN Member Role: Primary Care Nurse Name: Zo Segal RN Position: [facility] RN Member Role: Primary Care Nurse Name: Antonia Mtz RN Position: [facility] RN Member Role: Primary Care Nurse Name: Tiffany Ugalde RN Position: [facility] RN Member Role: Primary Care Nurse Name: Katelynn Moss RN Position: [facility] RN Member Role: Primary Care Nurse Name: Milla Emmanuel RN Position: [facility] SN RN Member Role: Primary Care Nurse Name: Carol Cordova Position: [facility] RN Member Role: Primary Care Nurse Name: Katt Gustafson Position: [facility] RN Member Role: Primary Care Nurse Name: Ashely Pacheco Position: [facility] RN Member Role: Primary Care Nurse Name: Miri Espitia RN Position: [facility] AMB Nurse Member Role: Primary Care Nurse Name: Maksim Hunt III, RN Position: [facility] RN Member Role: Primary Care Nurse Name: Elisa Fields RN Position: [facility] RN Member Role: Primary Care Nurse Name: Aron Mcginnis RN Position: [facility] SN RN Member Role: Primary Care Nurse Name: Natalia Plata RN Position: [facility] RN Member Role: Primary Care Nurse Name: Kacy Barnhart RN Position: [facility] RN Member Role: Primary Care Nurse Name: Guerline Ramirez RN Position: [facility] RN Member Role: Primary Care Nurse Name: Ashlyn Cordova RN Position: [facility] Onco RN Member Role: Primary Care Nurse Name: Jennifer Ignacio RN Position: [facility] RN Member Role: Primary Care Nurse Care Team Related Persons Name: TATIANNA NGOOg Address: home [address] [address] Name: TEVIN WILL Address: home [address] [place] [address] Name: ALEX WILL Address: [address] [place] [address] Name: ALEX ROPER Address: home [address] [place] [address]
--- OUTSIDE RECORDS SUMMARY | 2023-09-06 15:45 | XMS_ITS | Continuity of Care Document ---
Author Organization [facility] [place] Address [address] [place] [address]- Care Team Providers Care Global Product Manager Name Role Phone Helena GALLEGOS, Marissa Hernandez Primary Care Physician [phone] Encounter [facility] Date(s): 12/07/22 - 01/06/23 [facility] [address] [place], [place] [address] Allergies, Adverse Reactions, Alerts Substance Reaction [...] 11/15/22 14:23:00 EDT, Route to Pharmacy Electronically, [facility] #[id number], 165, cm, 11/10/22 10:56:00 EDT, Height, 79, kg, 11/10/22 10:56:00... Start Date: 11/15/22 Stop Date: 03/15/23 Status: Ordered acamprosate 333 mg oral delayed release tablet 2 tablet = 666 mg, By Mouth, 3 times a day, # 180 tablet, 0 Refills, Maintenance, 04/19/22 12:37:00EST, CR Tablet, [facility], Partial fill upon patient request if the prescription is for a schedule II opioid drug., 165, cm, 04/19/22 11... Start Date: 04/19/22 Stop Date: 05/19/22 Status: Ordered busPIRone 15 mg oral tablet 1 tablet = 15 mg, By Mouth, 3 times a day, # 90 tablet, 3 Refills, Maintenance, 11/15/22 14:23:00 EDT, Tablet, [facility] #[id number], Partial fill upon patient request if the prescription is for a schedule II opioid drug., 165, cm, 11/10/22 10:5... Start Date: 11/15/22 Stop Date: 03/15/23 Status: Ordered Creon 36,000 units oral delayed release capsule 1 capsule, By Mouth, 3 times a day, # 90 capsule, 3 Refills, Maintenance, 06/08/22 9:09:00 EST, [facility] #[id number], Partial fill upon patient request if the prescription is for a schedule IIopioid drug., 1 capsule By Mouth 3 times a day, 165... Start Date: 06/08/22 Status: Ordered doxepin 50 mg oral capsule 1 capsule = 50 mg, By Mouth, Daily at bedtime, # 30 capsule, 3 Refills, Maintenance, 11/15/22 14:23:00 EDT, Capsule, [facility] #[id number], 165, cm, 11/10/22 10:56:00 EDT, Height, 79, kg, 11/10/22 10:56:00 EDT, Dry Weight Start Date: 11/15/22 Stop Date: 03/15/23 Status: Ordered gabapentin 600 mg oral tablet See Instructions, 1 tablet in the morning and 2 tablets at bedtime, # 90 tablet, 3 Refills, Maintenance, 11/15/22 14:24:00 EDT, Tablet, [facility] #[id number], 165, cm, 11/10/22 10:56:00 EDT, Height, 79, kg, 11/10/22 10:56:00 EDT, Dry Weight Start Date: 11/15/22 Status: Ordered LORazepam 1 mg oral tablet 1 tablet = 1 mg, By Mouth, 3 times a day, PRN as needed for anxiety, # 90 tablet, 3 Refills, Maintenance, 11/15/22 14:24:00 EDT, Tablet, [facility] #[id number], Partial fill upon patient requestif the prescription is for a schedule II opioid elijah... Start Date: 11/15/22 Stop Date: 03/15/23 Status: Ordered multivitamin Multiple Vitamins oral tablet 1 tablet, By Mouth, Daily, # 30 tablet, 1 Refills, Maintenance, 10/01/19 11:23:00 EDT, Tablet, [facility]-31110, 1 tablet By Mouth Daily,x30 days, 165.1, [...] Maintenance,11/15/22 14:24:00 EDT, Route to Pharmacy Electronically, [facility] #[id number], 165, cm, 11/10/22 10:56:00 EDT, Height, 79, kg, 11/10/22 10:56:00... Start Date: 11/15/22 Stop Date: 02/13/23 Status: Ordered traZODone 100 mg oral tablet 100 mg, 1, tablet, By Mouth, Daily at bedtime, TAKE 1 TABLET BY MOUTH EVERY NIGHT AT BEDTIME, # 30 tablet, Refills 3, Tot. Refills 3, Maintenance, 11/15/22 14:24:00 EDT, Route to Pharmacy Electronically, [facility] #[id number], Partial fill upon... Start Date: 11/15/22 Stop Date: 03/15/23 Status: Ordered valACYclovir 500 mg oral tablet 500 mg, 1, tablet, By Mouth, 2 times a day, # 6 tablet, Refills 1, Tot. Refills 1, Maintenance, 11/10/22 11:16:00 EDT, Route to Pharmacy Electronically, [facility] #[id number], Partial fill uponpatient request if the prescription [...] Professional Member Role: PCP Address: Address: [address] [place] [address] [place], [place] [address] Name: Elisa Lamar RN Position: [facility] [...] Care Nurse Name: Carol Min [place] Position: [facility] RN Member Role: Primary Care Nurse Name: Katt Gustafson Position: [facility] RN Member Role: Primary Care Nurse Name: Ashely Pacheco Position: [facility] RN Member Role: Primary Care Nurse Name: Nupur KEY, Miri Levi Position: [facility] AMB [...] Persons Name: KORY NGO Address: home [address] [address] Name: TEVIN WILL Address: home [address] [place] [address] Name: ALEX WILL Address: home [address] [place] [address] Name: ALEX ROPER Address: home [address] [place] [address]
--- OUTSIDE RECORDS SUMMARY | 2023-09-06 15:45 | XMS_ITS | Continuity of Care Document ---
Author Organization [facility] [place] Address [address] [place] [address]- Care Team Providers Care Classics Professor Name Role Phone Marissa Malik NP Primary Care Physician Encounter [facility] Date(s): 11/10/22 - 12/10/22 [facility] Care [address] [place], [place] [address] Attending Physician: Gualberto Moralez Admitting Physician: AdmGualberto [...] 11/15/22 14:23:00 EDT, Route to Pharmacy Electronically, [facility] #[id number], 165, cm, 11/10/22 10:56:00 EDT, Height, 79, kg, 11/10/22 10:56:00... Start Date: 11/15/22 Stop Date: 03/15/23 Status: Ordered acamprosate 333 mg oral delayed release tablet 2 tablet = 666 mg, By Mouth, 3 times a day, # 180 tablet, 0 Refills, Maintenance, 04/19/22 12:37:00EST, CR Tablet, [facility], Partial fill upon patient request if the prescription is for a schedule II opioid drug., 165, cm, 04/19/22 11... Start Date: 04/19/22 Stop Date: 05/19/22 Status: Ordered busPIRone 15 mg oral tablet 1 tablet = 15 mg, By Mouth, 3 times a day, # 90 tablet, 3 Refills, Maintenance, 11/15/22 14:23:00 EDT, Tablet, [facility] #[id number], Partial fill upon patient request if the prescription is for a schedule II opioid drug., 165, cm, 11/10/22 10:5... Start Date: 11/15/22 Stop Date: 03/15/23 Status: Ordered Creon 36,000 units oral delayed release capsule 1 capsule, By Mouth, 3 times a day, # 90 capsule, 3 Refills, Maintenance, 06/08/22 9:09:00 EST, [facility] #[id number], Partial fill upon patient request if the prescription is for a schedule IIopioid drug., 1 capsule By Mouth 3 times a day, 165... Start Date: 06/08/22 Status: Ordered doxepin 50 mg oral capsule 1 capsule = 50 mg, By Mouth, Daily at bedtime, # 30 capsule, 3 Refills, Maintenance, 11/15/22 14:23:00 EDT, Capsule, [facility] #[id number], 165, cm, 11/10/22 10:56:00 EDT, Height, 79, kg, 11/10/22 10:56:00 EDT, Dry Weight Start Date: 11/15/22 Stop Date: 03/15/23 Status: Ordered gabapentin 600 mg oral tablet See Instructions, 1 tablet in the morning and 2 tablets at bedtime, # 90 tablet, 3 Refills, Maintenance, 11/15/22 14:24:00 EDT, Tablet, [facility] #[id number], 165, cm, 11/10/22 10:56:00 EDT, Height, 79, kg, 11/10/22 10:56:00 EDT, Dry Weight Start Date: 11/15/22 Status: Ordered LORazepam 1 mg oral tablet 1 tablet = 1 mg, By Mouth, 3 times a day, PRN as needed for anxiety, # 90 tablet, 3 Refills, Maintenance, 11/15/22 14:24:00 EDT, Tablet, [facility] #[id number], Partial fill upon patient requestif the prescription is for a schedule II opioid elijah... Start Date: 11/15/22 Stop Date: 03/15/23 Status: Ordered multivitamin Multiple Vitamins oral tablet 1 tablet, By Mouth, Daily, # 30 tablet, 1 Refills, Maintenance, 10/01/19 11:23:00 EDT, Tablet, [facility], 1 tablet By Mouth Daily,x30 days, 165.1, [...] Maintenance,11/15/22 14:24:00 EDT, Route to Pharmacy Electronically, [facility] #[id number], 165, cm, 11/10/22 10:56:00 EDT, Height, 79, kg, 11/10/22 10:56:00... Start Date: 11/15/22 Stop Date: 02/13/23 Status: Ordered traZODone 100 mg oral tablet 100 mg, 1, tablet, By Mouth, Daily at bedtime, TAKE 1 TABLET BY MOUTH EVERY NIGHT AT BEDTIME, # 30 tablet, Refills 3, Tot. Refills 3, Maintenance, 11/15/22 14:24:00 EDT, Route to Pharmacy Electronically, [facility] #[id number], Partial fill upon... Start Date: 11/15/22 Stop Date: 03/15/23 Status: Ordered valACYclovir 500 mg oral tablet 500 mg, 1, tablet, By Mouth, 2 times a day, # 6 tablet, Refills 1, Tot. Refills 1, Maintenance, 11/10/22 11:16:00 EDT, Route to Pharmacy Electronically, [facility] #[id number], Partial fill uponpatient request if the prescription [...] Team Personnel Name: Marissa Malik NP Position: [facility] PCO Associate Professional Member Role: PCP Address: Address: [address] [place] [address] [place] [address]- Name: Elisa Lamar RN Position: [facility] RN Member Role: Primary Care Nurse Name: Zo Segal RN Position: [facility] AMB Nurse Member Role: Primary Care Nurse Name: Antonia Mtz RN Position: [facility] RN Member Role: Primary Care Nurse Name: Milla Emmanuel RN Position: [facility] SN RN Member Role: Primary Care Nurse Name: Carol Min [place] Position: [facility] RN Member Role: Primary Care Nurse Name: Katt Gustafson Position: [facility] RN Member Role: Primary Care Nurse Name: Ashely Pacheco Position: [facility] RN Member Role: Primary Care Nurse Name: Miri Espitia RN Position: [facility] AMB Nurse Member Role: Primary Care Nurse Name: Maksim Hunt III, RN Position: [facility] RN Member Role: Primary Care Nurse Name: Elisa Fields RN Position: [facility] RN Member Role: Primary Care Nurse Name: Aron Mcginnis RN Position: [facility] SN RN Member Role: Primary Care Nurse Name: Natalia Plata RN Position: [facility] RN Member Role: Primary Care Nurse Name: Kacy Barnhart RN Position: [facility] RN Member Role: Primary Care Nurse Name: Guerline Ramirez RN Position: [facility] RN Member Role: Primary Care Nurse Name: Ashlyn Cordova RN Position: [facility] Onco RN Member Role: Primary Care Nurse Name: Jennifer Ignacio RN Position: [facility] RN Member Role: Primary Care Nurse Care Team Related Persons Name: KORY NGO Address: home [address] [address] Name: TEVIN WILL Address: home [address] [place] [address] Name: ALEX WILL Address: [address] [place] [address] Name: ALEX ROPER Address: [address] [place] [address]
--- OUTSIDE RECORDS SUMMARY | 2023-09-06 15:45 | XMS_ITS | Continuity of Care Document ---
Author Organization [facility] Address [address] [place] [address]- Care Team Providers Care Journeyman Pipefitter Name Role Phone Marissa Malik NP Primary Care Physician Encounter [facility] Date(s): 10/12/22 - 12/24/22 [facility] [address] [place] [address]- Encounter Diagnosis Chronic pancreatitis(Discharge Diagnosis) - 11/23/22 Alcohol dependence(Discharge Diagnosis) - 11/23/22 Hepatic steatosis(Discharge Diagnosis) - 11/23/22 Attending Physician: Lakia GALLEGOS, Yolanda Admitting Physician: Lakia GALLEGOS, Yolanda Referring Physician: Marissa Malik NP Allergies, Adverse [...] 11/15/22 14:23:00 EDT, Route to Pharmacy Electronically, [facility] #[id number], 165, cm, 11/10/22 10:56:00 EDT, Height, 79, kg, 11/10/22 10:56:00... Start Date: 11/15/22 Stop Date: 03/15/23 Status: Ordered acamprosate 333 mg oral delayed release tablet 2 tablet = 666 mg, By Mouth, 3 times a day, # 180 tablet, 0 Refills, Maintenance, 04/19/22 12:37:00EST, CR Tablet, [facility] 3, Partial fill upon patient request if the prescription is for a schedule II opioid drug., Tushar cm, 04/19/22 11... Start Date: 04/19/22 Stop Date: 05/19/22 Status: Ordered busPIRone 15 mg oral tablet 1 tablet = 15 mg, By Mouth, 3 times a day, # 90 tablet, 3 Refills, Maintenance, 11/15/22 14:23:00 EDT, Tablet, [facility] #[id number], Partial fill upon patient request if the prescription is for a schedule II opioid drug., Tushar cm, 11/10/22 10:5... Start Date: 11/15/22 Stop Date: 03/15/23 Status: Ordered Creon 36,000 units oral delayed release capsule 1 capsule, By Mouth, 3 times a day, # 90 capsule, 3 Refills, Maintenance, 06/08/22 9:09:00 EST, [facility] #[id number], Partial fill upon patient request if the prescription is for a schedule IIopioid drug., 1 capsule By Mouth 3 times a day, 165... Start Date: 06/08/22 Status: Ordered doxepin 50 mg oral capsule 1 capsule = 50 mg, By Mouth, Daily at bedtime, # 30 capsule, 3 Refills, Maintenance, 11/15/22 14:23:00 EDT, Capsule, [facility] #[id number], 165, cm, 11/10/22 10:56:00 EDT, Height, 79, kg, 11/10/22 10:56:00 EDT, Dry Weight Start Date: 11/15/22 Stop Date: 03/15/23 Status: Ordered gabapentin 600 mg oral tablet See Instructions, 1 tablet in the morning and 2 tablets at bedtime, # 90 tablet, 3 Refills, Maintenance, 11/15/22 14:24:00 EDT, Tablet, [facility] #[id number], 165, cm, 11/10/22 10:56:00 EDT, Height, 79, kg, 11/10/22 10:56:00 EDT, Dry Weight Start Date: 11/15/22 Status: Ordered LORazepam 1 mg oral tablet 1 tablet = 1 mg, By Mouth, 3 times a day, PRN as needed for anxiety, # 90 tablet, 3 Refills, Maintenance, 11/15/22 14:24:00 EDT, Tablet, [facility] #[id number], Partial fill upon patient requestif the prescription is for a schedule II opioid elijah... Start Date: 11/15/22 Stop Date: 03/15/23 Status: Ordered multivitamin Multiple Vitamins oral tablet 1 tablet, By Mouth, Daily, # 30 tablet, 1 Refills, Maintenance, 10/01/19 11:23:00 EDT, Tablet, [facility], 1 tablet By Mouth Daily,x30 days, 165.1, [...] Maintenance,11/15/22 14:24:00 EDT, Route to Pharmacy Electronically, [facility] #[id number], 165, cm, 11/10/22 10:56:00 EDT, Height, 79, kg, 11/10/22 10:56:00... Start Date: 11/15/22 Stop Date: 02/13/23 Status: Ordered traZODone 100 mg oral tablet 100 mg, 1, tablet, By Mouth, Daily at bedtime, TAKE 1 TABLET BY MOUTH EVERY NIGHT AT BEDTIME, # 30 tablet, Refills 3, Tot. Refills 3, Maintenance, 11/15/22 14:24:00 EDT, Route to Pharmacy Electronically, [facility] #[id number], Partial fill upon... Start Date: 11/15/22 Stop Date: 03/15/23 Status: Ordered valACYclovir 500 mg oral tablet 500 mg, 1, tablet, By Mouth, 2 times a day, # 6 tablet, Refills 1, Tot. Refills 1, Maintenance, 11/10/22 11:16:00 EDT, Route to Pharmacy Electronically, [facility] #[id number], Partial fill uponpatient request if the prescription [...] Confirmed Active 1Reports HX several times previously Diagnosis Diagnosis Type Effective Dates Health Status Clinical Service Informant Chronic pancreatitis Discharge Diagnosis 11/23/22 Alcohol dependence Discharge Diagnosis 11/23/22 Hepatic steatosis Discharge Diagnosis 11/23/22 Social History Social History Type Response Smoking Status Current every day sm oker; Tobacco user in household: Yes entered on: 05/01/14 Sex Patient Care team information Care Team Personnel Name: Marissa Malik NP Position: [facility] PCO Associate Professional Member Role: PCP Address: Address: [address] [place] [address] [place] [address]- Name: Elisa Lamar RN [facility] Care Nurse Name: Carol Min [place] Position: [facility] RN Member Role: Primary Care Nurse Name: Katt Gustafson Position: [facility] RN Member Role: Primary Care Nurse [...] Persons Name: KORY NGO Address: home [address] [address] Name: TEVIN WILL Address: [address] [place] [address] Name: ALEX WILL Address: [address] [place] [address] Name: ALEX ROPER Address: home [address] [place] [address]
--- OUTSIDE RECORDS SUMMARY | 2023-09-06 15:46 | XMS_ITS | Continuity of Care Document ---
Author Organization [facility] ter Address [address] [place] [address]- Care Team Providers Care Brick Kiln Worker Name Role Phone Marissa Malik NP Primary Care Physician [place] [facility] [place] - 03/02/[address] [address]- Discharge Disposition: A-D/C Home Attending Physician: Bhanu [...] 02/03/23 13:42:00 EDT, Route to Pharmacy Electronically, [facility] #[id number], 166, cm, 12/16/22 17:39:00 EDT, Height, 77, kg, 12/12/22 16:21:00... Start Date: 02/03/23 Stop Date: 08/02/23 Status: Ordered Albuterol (Eqv-ProAir HFA) 90 mcg/inh inhalation aerosol 2 puffs, Inhalation, Every 6 hours, # 8.5 Gm, 0 Refills, Maintenance, 02/17/23 18:07:00 EDT, [facility] #[id number], Partial fill upon patient request if the prescription is for a schedule II opioid drug., 2 puffs Inhalation Every 6 hours, 166, c... Start Date: 02/17/23 Status: Ordered busPIRone 15 mg oral tablet 1 tablet = 15 mg, By Mouth, 3 times a day, # 270 tablet, 1 Refills, Maintenance, 02/03/23 13:43:00 EDT, Tablet, [facility] #[id number], Partial fill upon patient request if the prescription is for a schedule II opioid drug., 166, cm, 12/16/22 17:... Start Date: 02/03/23 Stop Date: 08/02/23 Status: Ordered Creon 36,000 units oral delayed release capsule 1 capsule, By Mouth, 3 times a day, # 90 capsule, 3 Refills, Maintenance, 06/08/22 9:09:00 EST, [facility] #[id number], Partial fill upon patient request if the prescription is for a schedule IIopioid drug., 1 capsule By Mouth 3 times a day, 165... Start Date: 06/08/22 Status: Ordered doxepin 50 mg oral capsule 1 capsule = 50 mg, By Mouth, Daily at bedtime, # 90 capsule, 1 Refills, Maintenance, 02/03/23 13:43:00 EDT, Capsule, [facility] #[id number], 166, cm, 12/16/22 17:39:00 EDT, Height, 77, kg, 12/12/22 16:21:00 EDT, Dry Weight Start Date: 02/03/23 Stop Date: 08/02/23 Status: Ordered gabapentin 600 mg oral tablet See Instructions, 1 tablet in the morning and 2 tablets at bedtime, # 270 tablet, 1 Refills, Maintenance, 02/03/23 13:43:00 EDT, Tablet, [facility] #[id number], 90 day supply, 166, cm, 12/16/22 17:39:00 EDT, Height, 77, kg, 12/12/22 16:21:00 EDT,... Start Date: 02/03/23 Status: Ordered lamotrigine 25 mg oral tablet 75 mg, 3, tablet, By Mouth, Daily at bedtime, # 270 tablet, Refills 1, Tot. Refills 1, Maintenance,02/03/23 13:43:00 EDT, Route to Pharmacy Electronically, [facility] #[id number], Partial fill upon patient request if the prescription is for a sc... Start Date: 02/03/23 Stop Date: 08/02/23 Status: Ordered LORazepam 1 mg oral tablet 1 tablet = 1 mg, By Mouth, 3 times a day, PRN as needed for anxiety, # 90 tablet, 3 Refills, Maintenance, 02/03/23 13:44:00 EDT, Tablet, [facility] #[id number], Partial fill upon patient requestif the prescription is for a schedule II opioid elijah... Start Date: 02/03/23 Stop Date: 06/03/23 Status: Ordered multivitamin Multiple Vitamins oral tablet 1 tablet, By Mouth, Daily, # 30 tablet, 1 Refills, Maintenance, 10/01/19 11:23:00 EDT, Tablet, [facility], 1 tablet By Mouth Daily,x30 days, 165.1, cm, 10/01/19 8:37:00 EDT, Height, 80.1, kg, 09/19/19 16:30:00 EDT, Dry Weight Start Date: 10/01/19 Stop Date: 11/30/19 Status: Ordered OxyCODONE IR Tablet 5 mg, Tablet, By Mouth, Once, STAT, 03/02/23 14:21:00 EDT, Stop date 03/02/23 14:21:00 EDT Start Date: 03/02/23 Stop Date: 03/02/23 Status: Completed pantoprazole 40 mg oral delayed [...] Maintenance,02/03/23 13:47:00 EDT, Route to Pharmacy Electronically, [facility] #[id number], 166, cm, 12/16/22 17:39:00 EDT, Height, 77, kg, 12/12/22 16:21:00... Start Date: 02/03/23 Stop Date: 08/02/23 Status: Ordered traMADol 50 mg oral tablet 1 tablet = 50 mg, By Mouth, Every 12 hours, PRN for pain, for 22 days, # 44 tablet, 0 Refills, Acute 03/11/23 19:01:00 EDT, 02/17/23 19:01:00 EDT, Tablet, [facility] #[id number], [facility] [id number]/13/23. Last fill 02/14/23 for 7 day supply (#28)... Start Date: 02/17/23 Stop Date: 03/11/23 Status: Ordered traZODone 100 mg oral tablet 100 mg, 1, tablet, By Mouth, Daily at bedtime, TAKE 1 TABLET BY MOUTH EVERY NIGHT AT BEDTIME, # 90 tablet, Refills 1, Tot. Refills 1, Maintenance, 02/03/23 13:46:00 EDT, Route to Pharmacy Electronically, [facility] #[id number], Partial fill upon... Start Date: 02/03/23 Stop Date: 08/02/23 Status: Ordered Wellbutrin XL 150 mg/24 hours oral tablet, extended release 1 tablet = 150 mg, By Mouth, Every 24 hours, # 90 tablet, 1 Refills, Maintenance, 02/03/23 13:43:00EDT, XL Tablet, [facility] #[id number], Partial fill upon patient request if the prescription is for a schedule II opioid drug., 166, cm, 12/16/22... Start Date: 02/03/23 Stop Date: 08/02/23 Status: Ordered Zithromax 250 mg oral tablet 1 pack/packet, By Mouth, Once, # 6 tablet, 0 Refills, Soft Stop, 02/17/23 18:07:00 EDT, Tablet, [facility] #[id number], Partial fill upon patient request if the prescription is for a schedule IIopioid drug., 166, cm, 02/17/23 17:52:00 EDTElieser... Start Date: 02/17/23 Status: Ordered Problem List [...] Exam Date Time Procedure Performing Provider Status 03/02/23 12:34 PM Chest 2 Views Frontal and Lat Louis Noonan; Auth (Verified) Notes: (Chest 2 Views Frontal and Lat) Reason For Exam: Shortness of Breath, Fever;Other: RESULT: Chest 2 Views Frontal and Lat Chest 2 Views Frontal and Lat Hx of Present Illness: pt c o not bein able to breath hands and feet feel numb . probblems started with sore throat seen by pcp given azpac and inhaler; Reason: Other:; Shortness of Breath, Fever; Clinical Question(s): Pneumonia COMPARISON: Multiple prior chest radiographs with the most recent dated 11/17/2020. FINDINGS: LINES AND TUBES: None. LUNGS AND PLEURA: Clear lungs. Normal pulmonary vascularity. No pleural effusion. No pneumothorax. HEART, MEDIASTINUM AND TONIE: Heart is normal in size. Normal mediastinal and hilar contour. BONES AND SOFT TISSUES: No acute abnormality. IMPRESSION: No acute abnormality. WSN: [id number] Ordering Physician: Rodney Darby Dictated By: Andrés Friend MD, V Dictated Date/Time: 03/02/23 12:40 p Reviewed By: Andrés Friend MD, V Signed By: Andrés Friend MD, V Signed Date/Time: 03/02/23 12:40 pm Transcribed By: DIPESH Transcribed Date/Time: 03/02/23 12:40 pm Vital Signs Most recent to oldest [Reference Range]: 1 2 3 Height 165 cm (03/02/23 11:25 AM) Oxygen Saturation [94-100 %] 100 % (03/02/23 3:48 PM) 100 % (03/02/23 11:25 AM) Pulse Rate [55-90 bpm] 99 bpm *H* (03/02/23 3:48 PM) 100 bpm *H* (03/02/23 11:25 AM) Blood Pressure [90-138/55-84 mm Hg] 120/87mm Hg (03/02/23 3:48 PM) 132/77mm Hg (03/02/23 11:25 AM) Respiratory Rate [16-30 br/min] 22 br/min (03/02/23 3:48 PM) 19 br/min (03/02/23 2:27 PM) 16 br/min (03/02/23 11:25 AM) Temperature [96.8-100.4 DegF] 98.5 DegF (03/02/23 3:48 PM) 98.4 DegF (03/02/23 11:25 AM) Mode of Delivery (Oxygen) Room air (03/02/23 3:48 PM) Room air (03/02/23 11:25 AM) Blood pressure sites Arm, right (03/02/23 3:48 PM) Arm, right (03/02/23 11:25 AM) Temperature Route Oral (03/02/23 3:48 PM) Oral (03/02/23 11:25 AM) Dry Weight 77.3 kg (03/02/23 11:25 AM) Dry Weight Obtained Via Patient/family s tated (03/02/23 11:25 AM) Social History Social History Type Response Smoking Status Current every day sm alexandre; Tobacco user in household: Yes entered on: 05/01/14 Sex EKG study * Event Display: ECG 12-Lead Authored Date: [id number] Please click on pdf link to open report * Event Display: ECG 12-Lead Authored Date: [id number] Ventricular Rate: 91 BPM Atrial Rate: 91 BPM P-R Interval: 140 ms QRS Duration: 84 ms Q-T Interval: 394 ms QTC Calculation(Bazett): 484 ms P [place]: 63 degrees R [place]: 60 degrees T [place]: 63 degrees Normal sinus rhythm T wave abnormality, consider anterior ischemia Abnormal ECG When compared with ECG of 12-DEC-2022 06:10, No significant change was found Confirmed by MEGGAN NAVARRETE ([id number]) on 03/02/2023 4:38:24 PM [place]: MEGGAN NAVARRETE Note * Shahriar Mustafa MD: PERFORM Event Display: Patient Education Leaflets Authored Date: [id number] Alcohol Abuse ?? [id number] Alcohol Abuse Alcoholic drinks harm you when [...] you: ??? Duties at home or with childcare provider suffer because of drinking. ??? Duties at [...] problems ??? Seizures These changes may be termite technician (permanent). Heart and blood vessels Alcohol can [...] and Substance Abuse Information Center (NASAIC) at www.addictioncareMaritime provinces.youcalc or 153-057-0454 ??? National [place] on Alcoholism and Drug Dependence (NCADD) at www.ncadd.org or 517-BOV-KVCK (993-066-6170) ?? Call 911 Call 911 if any [...] shakiness ?? Last Reviewed Date: 2021 ?? [id number] [employer]. All rights reserved. This information is not intended as a substitute for professional medical care. Always follow your healthcare professional's instructions. ?? Patient Care team information Care Team Personnel Name: Marissa Malik NP Position: [facility] PCO Associate Professional Member Role: PCP Address: Address: [address] [place] [id number] [place] Name: Elisa Lamar RN Position: [facility] RN Member Role: Primary Care Nurse Name: Zo Segal RN Position: [facility] AMB Nurse Member Role: Primary Care Nurse Name: Antonia Mtz RN Position: [facility] RN Member Role: Primary Care Nurse Name: Milla Emmanuel RN Position: [facility] SN RN Member Role: Primary Care Nurse Name: Carol Min MA Position: [facility] RN Member Role: Primary Care Nurse Name: Katt Gustafson Position: [facility] RN Member Role: Primary Care Nurse Name: Ashely Pacheco Position: [facility] RN Member Role: Primary Care Nurse Name: Miri Espitia RN Position: [facility] Nurse Member Role: Primary Care Nurse Name: Maksim Hunt III, RN Position: [facility] RN Member Role: Primary Care Nurse Name: Elisa Fields RN Position: [facility] RN Member Role: Primary Care Nurse Name: Aron Mcginnis RN Position: [facility] SN RN Member Role: Primary Care Nurse Name: Natalia Plata RN Position: [facility] RN Member Role: Primary Care Nurse Name: Kacy Barnhart RN Position: [facility] RN Member Role: Primary Care Nurse Name: Guerline Ramirez RN Position: [facility] RN Member Role: Primary Care Nurse Name: Ashlyn Cordova RN Position: [facility] Onco RN Member Role: Primary Care Nurse Name: Jennifer Ignacio RN Position: [facility] RN Member Role: Primary Care Nurse Name: Bhanu Dennison MD Position: [facility] ED Medicine MD Member Role: Admitting Physician Address: Address: [address] [place] [address] Name: Tara Paul DO Position: [facility] Resident Address: Address: [address] [place] [id number] Name: Latha Mercado Position: [facility] ED TA [facility] Member Role: Supervisor [employer] Name: Staci Parrish RN Position: [facility] ED RN W/OE and Tasks Member Role: Patient Care Provider Care Team Related Persons Name: KORY NGO Address: home [address] [address] Name: TEVIN WILL Address: home [address] [place] [address] Name: ALEX WILL Address: home [address] [place] [address] Name: ALEX ROPER Address: home [address] [place] [address]
--- OUTSIDE RECORDS SUMMARY | 2023-09-06 15:46 | XMS_ITS | Continuity of Care Document ---
Author Organization [facility] Address [address] [place] [address]- Care Team Providers Care Embalmer Apprentice Name Role Phone Helena GALLEGOS, Marissa Hernandez Primary Care Physician Encounter [facility] Date(s): 05/16/22 - 06/15/22 [facility] [address] [place], [place] [address] Allergies, Adverse Reactions, Alerts Substance Reaction [...] 06/10/22 14:19:00 EST, Route to Pharmacy Electronically, [facility] #[id number], 165, cm, 05/25/22 14:24:00 EST, Height, 80, kg, 04/14/22 3:03:00 E... Start Date: 06/10/22 Stop Date: 10/08/22 Status: Ordered acamprosate 333 mg oral delayed release tablet 2 tablet = 666 mg, By Mouth, 3 times a day, # 180 tablet, 0 Refills, Maintenance, 04/19/22 12:37:00EST, CR Tablet, [facility], Partial fill upon patient request if the prescription is for a schedule II opioid drug., 165, cm, 04/19/22 11... Start Date: 04/19/22 Stop Date: 05/19/22 Status: Ordered busPIRone 15 mg oral tablet 1 tablet = 15 mg, By Mouth, 3 times a day, # 90 tablet, 3 Refills, Maintenance, 06/10/22 14:24:00 EST, Tablet, [facility] #[id number], Partial fill upon patient request if the prescription is for a schedule II opioid drug., 165, cm, 05/25/22 14:2... Start Date: 06/10/22 Stop Date: 10/08/22 Status: Ordered Creon 36,000 units oral delayed release capsule 1 capsule, By Mouth, 3 times a day, # 90 capsule, 3 Refills, Maintenance, 06/08/22 9:09:00 EST, [facility] #[id number], Partial fill upon patient request if the prescription is for a schedule IIopioid drug., 1 capsule By Mouth 3 times a day, 165... Start Date: 06/08/22 Status: Ordered doxepin 50 mg oral capsule 1 capsule = 50 mg, By Mouth, Daily at bedtime, # 30 capsule, 3 Refills, Maintenance, 06/10/22 14:20:00 EST, Capsule, [facility] #[id number], 165, cm, 05/25/22 14:24:00 EST, Height, 80, kg, 04/14/22 3:03:00 EST, Dry Weight Start Date: 06/10/22 Stop Date: 10/08/22 Status: Ordered fluticasone 50 mcg/inh nasal spray See Instructions, SHAKE LIQUID AND USE 1 SPRAY IN EACH NOSTRIL TWICE DAILY, # 15.8 mL, 3 Refills, 03/23/21 16:18:00 EST, [facility] #[id number], SHAKE LIQUID AND USE 1 SPRAY IN EACH NOSTRIL TWICE DAILY, 164, cm, 03/23/21 15:58:00 EST, Height, 86.... Start Date: 03/23/21 Status: Ordered gabapentin 600 mg oral tablet See Instructions, 1 tablet in the morning and 2 tablets at bedtime, # 90 tablet, 3 Refills, Maintenance, 06/10/22 14:20:00 EST, Tablet, [facility] #[id number], 165, cm, 05/25/22 14:24:00 EST, Height, 80, kg, 04/14/22 3:03:00 EST, Dry Weight Start Date: 06/10/22 Status: Ordered loperamide 2 mg oral capsule 2 mg, 1, capsule, By Mouth, Every 3 hours, PRN, # 30 capsule, Refills 0, Tot. Refills 0, Acute 04/19/23 11:43:00 EST, Loose Stool, 04/19/22 11:43:00 EST, Route to Pharmacy Electronically, [facility] 3, Partial fill upon patient request if... Start Date: 04/19/22 Stop Date: 04/19/23 Status: Ordered LORazepam 1 mg oral tablet 1 tablet = 1 mg, By Mouth, 3 times a day, PRN as needed for anxiety, # 90 tablet, 3 Refills, Maintenance, 06/10/22 14:21:00 EST, Tablet, [facility] #[id number], Partial fill upon patient requestif the prescription is for a schedule II opioid elijah... Start Date: 06/10/22 Stop Date: 10/08/22 Status: Ordered multivitamin Multiple Vitamins oral tablet 1 tablet, By Mouth, Daily, # 30 tablet, 1 Refills, Maintenance, 10/01/19 11:23:00 EDT, Tablet, [facility], 1 tablet By Mouth Daily,x30 days, 165.1, cm, 10/01/19 8:37:00 EDT, Height, 80.1, kg, 09/19/19 16:30:00 EDT, Dry Weight Start Date: 10/01/19 Stop Date: 11/30/19 Status: Ordered Narcan 4 mg/0.1 mL nasal spray = 4 mg, Nares, Both, Once, # 2 each, 0 Refills, Soft Stop, 04/19/22 12:16:00 EST, [facility], Partial fill [...] Maintenance,06/10/22 14:21:00 EST, Route to Pharmacy Electronically, [facility] #[id number], 165, cm, 05/25/22 14:24:00 EST, Height, 80, kg, 04/14/22 3:03:00... Start Date: 06/10/22 Stop Date: 10/08/22 Status: Ordered traMADol 50 mg oral tablet 1 tablet = 50 mg, By Mouth, Every 8 hours, 30 each, TAKE 1 TABLET BY MOUTH EVERY 8 HOURS NEEDED FOR FOR PAIN, # 30 tablet, 2 Refills, Maintenance, 06/14/22 15:23:00 EST, Tablet, [facility] #[id number], Partial fill upon patient request if the... Start Date: 06/14/22 Status: Ordered traZODone 100 mg oral tablet 100 mg, 1, tablet, By Mouth, Daily at bedtime, TAKE 1 TABLET BY MOUTH EVERY NIGHT AT BEDTIME, # 30 tablet, Refills 3, Tot. Refills 3, Maintenance, 06/10/22 14:22:00 EST, Route to Pharmacy Electronically, [facility] #[id number], Partial fill upon... Start Date: 06/10/22 Stop [...] Professional Member Role: PCP Address: Address: [address] [place] [id number] Name: Elisa Lamar RN Position: [facility] RN Member Role: Primary Care Nurse Name: Zo Segal RN [facility] RN Member Role: Primary Care [...] Primary Care Nurse Name: Carol Cordova Position: [facility] RN Member Role: Primary Care Nurse Name: Katt Gustafson Position: [facility] RN Member Role: Primary Care Nurse Name: Ashely Pacheco Position: [facility] RN Member Role: Primary Care Nurse Name: Miri Espitia RN Position: [facility] Nurse Member Role: Primary Care Nurse Name: [...] Name: KORY NGO Address: home [address] [address] Name: TEVIN WILL Address: [address] [place] [address] Name: ALEX WILL Address: [address] [place] [address] Name: ALEX ROPER Address: home [address] [place] [address]
--- OUTSIDE RECORDS SUMMARY | 2023-09-06 15:46 | XMS_ITS | Continuity of Care Document ---
Author Organization [facility] ter Address [address] [place] [address]- Care Team Providers Care Product Consultant Name Role Phone Domingo GALLEGOS, Anai Levi Primary Care Physician [phone] [place] [facility] [place]s): 07/31/23 - 07/31/[address] [address]- Discharge Disposition: A-D/C Walkout Attending Physician: Not [...] 02/03/23 13:42:00 EDT, Route to Pharmacy Electronically, [facility] #[id number], 166, cm, 12/16/22 17:39:00 EDT, Height, 77, kg, 12/12/22 16:21:00... Start Date: 02/03/23 Stop Date: 08/02/23 Status: Ordered Albuterol (Eqv-ProAir HFA) 90 mcg/inh inhalation aerosol 2 puffs, Inhalation, Every 6 hours, # 8.5 Gm, 0 Refills, Maintenance, 02/17/23 18:07:00 EDT, [facility] #[id number], Partial fill upon patient request if the [...] opioid drug. Start Date: 04/13/23 Status: Ordered buPROPion 300 mg/24 hours (XL) oral tablet, extended release 1 tablet = 300 mg, By Mouth, Every 24 hours, # 90 tablet, 1 Refills, Maintenance, 06/06/23 16:18:00EST, [facility] #[id number], Partial fill upon patient request if the prescription is for a schedule II opioid drug., 165, cm, 04/02/23 23:00:00 E... Start Date: 06/06/23 Stop Date: 12/03/23 Status: Ordered Creon 36,000 units oral delayed release capsule 1 capsule, By Mouth, 3 times a day, # 90 capsule, 3 Refills, Maintenance, 06/08/22 9:09:00 EST, [facility] #[id number], Partial fill upon patient request if the prescription is for a schedule IIopioid drug., 1 capsule By Mouth 3 times a day, 165... Start Date: 06/08/22 Status: Ordered doxepin 50 mg oral capsule 1 capsule = 50 mg, By Mouth, Daily at bedtime, # 90 capsule, 1 Refills, Maintenance, 06/06/23 16:15:00 EST, Capsule, [facility] #[id number], 165, cm, 04/02/23 23:00:00 EST, Height, 77.5, kg, 04/02/23 23:00:00 EST, Dry Weight Start Date: 06/06/23 Stop Date: 12/03/23 Status: Ordered gabapentin 600 mg oral tablet See Instructions, 1 tablet in the morning and 2 tablets at bedtime, # 270 tablet, 1 Refills, Maintenance, 06/06/23 16:17:00 EST, Tablet, [facility] #[id number], 90 day supply, 165, cm, 04/02/23 23:00:00 EST, Height, 77.5, kg, 04/02/23 23:00:00 ES... Start Date: 06/06/23 Status: Ordered hydrOXYzine hydrochloride 25 mg oral [...] Maintenance,06/06/23 16:16:00 EST, Route to Pharmacy Electronically, [facility] #[id number], Partial fill upon patient request if the prescription is for a sc... Start Date: 06/06/23 Stop Date: 12/03/23 Status: Ordered LORazepam 1 mg oral tablet 1 tablet = 1 mg, By Mouth, 3 times a day, PRN as needed for anxiety, # 90 tablet, 3 Refills, Maintenance, 06/06/23 16:16:00 EST, Tablet, [facility] #[id number], dose increase, 165, cm, 04/02/23 23:00:00 EST, Height, 77.5, kg, 04/02/23 23:00:00 ES... Start Date: 06/06/23 Stop Date: 10/04/23 Status: Ordered LORazepam 1 mg oral tablet [...] Maintenance, 10/01/19 11:23:00 EDT, Tablet, [facility]-, 1 tablet By Mouth Daily,x30 [...] Maintenance,06/06/23 16:17:00 EST, Route to Pharmacy Electronically, [facility] #[id number], 165, cm, 04/02/23 23:00:00 EST, Height, 77.5, kg, 04/02/23 23:00:... Start Date: 06/06/23 Stop Date: 12/03/23 Status: Ordered traZODone 100 mg oral tablet 100 mg, 1, tablet, By Mouth, Daily at bedtime, TAKE 1 TABLET BY MOUTH EVERY NIGHT AT BEDTIME, # 90 tablet, Refills 1, Tot. Refills 1, Maintenance, 06/06/23 16:17:00 EST, Route to Pharmacy Electronically, [facility] #[id number], Partial fill upon... Start Date: 06/06/23 Stop [...] Confirmed Active Severe alcohol dependence Confirmed Active Severe obesity Confirmed Active Sprain of ribs Confirmed Active 1Reports HX several times previously Vital Signs Most recent to oldest [Reference Range]: 1 2 Weight 89.9 kg (07/31/23 4:59 PM) Oxygen Saturation [94-100 %] 100 % (07/31/23 4:59 PM) 97 % (07/31/23 4:56 PM) Pulse Rate [55-90 bpm] 89 bpm (07/31/23 4:59 PM) 102 bpm *H* (07/31/23 4:56 PM) Blood Pressure [90-138/55-84 mm Hg] 138/ 96mm Hg (07/31/23 4:59 PM) Respiratory Rate [16-30 br/min] 14 br/mi n *L* (07/31/23 4:59 PM) Temperature [96.8-100.4 DegF] 97.9 DegF (07/31/23 4:59 PM) Mode of Delivery (Oxygen) Room air (07/31/23 4:59 PM) Room air (07/31/23 4:56 PM) Temperature Route Oral (07/31/23 4:59 PM) Social History Social History Type Response Smoking Status 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; Tobacco user in household: Yes entered on: 05/01/14 Sex EKG study * Event Display: ECG 12-Lead Authored Date: Please click on pdf link to open report * Event Display: ECG 12-Lead Authored Date: Ventricular Rate: 91 BPM Atrial Rate: 91 BPM P-R Interval: 124 ms QRS Duration: 84 ms Q-T Interval: 396 ms QTC Calculation(Bazett): 487 ms P [place]: 34 degrees R [place]: 64 degrees T [place]: 91 degrees Normal sinus rhythm ST and T wave abnormality, consider anterolateral ischemia Abnormal ECG When compared with ECG of 02-MAR-2023 12:44, T wave inversion now evident in Lateral leads Confirmed by Pete Quach ([id number]) on 07/31/2023 5:13:53 PM [place]: Pete Quach Patient Care team information Care Team Personnel Name: Elisa Lamar RN Position: [facility] [...] Care Nurse Name: Carol Min MA Position: [facility] RN Member Role: Primary Care Nurse Name: Katt Gustafson Position: [facility] RN Member Role: Primary Care Nurse [...] Care Nurse Name: Anai Lane NP Position: [facility] PCO Associate Professional Member Role: PCP Address: Address: [address] [place] [address] Name: Aron Mcginnis RN Position: [facility] SN RN Member Role: Primary Care Nurse Name: Natalia Plata RN Position: [facility] RN Member Role: Primary Care Nurse Name: Kacy Barnhart RN Position: [facility] RN Member Role: Primary Care Nurse Name: Guerline Ramirez RN Position: [facility] Onco RN Member Role: Primary Care Nurse Name: Ashlyn Cordova RN Position: [facility] Onco RN Member Role: Primary Care Nurse Name: Jennifer Ignacio RN Position: [facility] RN Member Role: Primary Care Nurse Care Team Related Persons Name: KORY NGO Address: home [address] [address] Name: TEVIN WILL Address: home [address] [place] [id number] Name: ALEX WILL Address: home [address] [place] [address] Name: ALEX ROPER Address: [place] [address] [place] [address]
--- OUTSIDE RECORDS SUMMARY | 2023-09-06 15:46 | XMS_ITS | Continuity of Care Document ---
Author Organization [facility] Primary Car e Bean Address [address] [place] [address]- Care Team Providers Care Operator Weapon Locating Radar Name Role Phone Helena GALELGOS, Mairssa Hernandez Primary Care Physician Encounter [facility] Date(s): 05/05/23 - 06/30/23 [facility] Bean [address], [place] [address] Attending Physician: Anai Lane NP [...] 02/03/23 13:42:00 EDT, Route to Pharmacy Electronically, [facility] #[id number], 166, cm, 12/16/22 17:39:00 EDT, Height, 77, kg, 12/12/22 16:21:00... Start Date: 02/03/23 Stop Date: 08/02/23 Status: Ordered Albuterol (Eqv-ProAir HFA) 90 mcg/inh inhalation aerosol 2 puffs, Inhalation, Every 6 hours, # 8.5 Gm, 0 Refills, Maintenance, 02/17/23 18:07:00 EDT, [facility] #[id number], Partial fill upon patient request if the [...] 90 tablet, 1 Refills, Maintenance, 06/06/23 16:18:00EST, [facility] #[id number], Partial fill upon patient request if the prescription is for a schedule II opioid drug., 165, cm, 04/02/23 23:00:00 E... Start Date: 06/06/23 Stop Date: 12/03/23 Status: Ordered Creon 36,000 units oral delayed release capsule 1 capsule, By Mouth, 3 times a day, # 90 capsule, 3 Refills, Maintenance, 06/08/22 9:09:00 EST, [facility] #[id number], Partial fill upon patient request if the prescription is for a schedule IIopioid drug., 1 capsule By Mouth 3 times a day, 165... Start Date: 06/08/22 Status: Ordered doxepin 50 mg oral capsule 1 capsule = 50 mg, By Mouth, Daily at bedtime, # 90 capsule, 1 Refills, Maintenance, 06/06/23 16:15:00 EST, Capsule, [facility] #[id number], 165, cm, 04/02/23 23:00:00 EST, Height, 77.5, kg, 04/02/23 23:00:00 EST, Dry Weight Start Date: 06/06/23 Stop Date: 12/03/23 Status: Ordered gabapentin 600 mg oral tablet See Instructions, 1 tablet in the morning and 2 tablets at bedtime, # 270 tablet, 1 Refills, Maintenance, 06/06/23 16:17:00 EST, Tablet, [facility] #[id number], 90 day supply, 165, cm, 04/02/23 23:00:00 [...] Maintenance,06/06/23 16:16:00 EST, Route to Pharmacy Electronically, [facility] #[id number], Partial fill upon patient request if the prescription is for a sc... Start Date: 06/06/23 Stop Date: 12/03/23 Status: Ordered LORazepam 1 mg oral tablet 1 tablet = 1 mg, By Mouth, 3 times a day, PRN as needed for anxiety, # 90 tablet, 3 Refills, Maintenance, 06/06/23 16:16:00 EST, Tablet, [facility] #[id number], dose increase, 165, cm, 04/02/23 23:00:00 EST, [...] 10/01/19 11:23:00 EDT, Tablet, [facility]-[id number], 1 tablet By Mouth Daily,x30 days, 165.1, [...] Maintenance,06/06/23 16:17:00 EST, Route to Pharmacy Electronically, [facility] #[id number], 165, cm, 04/02/23 23:00:00 EST, Height, 77.5, kg, 04/02/23 23:00:... Start Date: 06/06/23 Stop Date: 12/03/23 Status: Ordered traZODone 100 mg oral tablet 100 mg, 1, tablet, By Mouth, Daily at bedtime, TAKE 1 TABLET BY MOUTH EVERY NIGHT AT BEDTIME, # 90 tablet, Refills 1, Tot. Refills 1, Maintenance, 06/06/23 16:17:00 EST, Route to Pharmacy Electronically, [facility] #[id number], Partial fill upon... Start Date: 06/06/23 Stop [...] Associate Professional Member Role: PCP Address: Address: [address] [place] [id number] Name: Elisa Lamar RN Position: [facility] RN Member Role: Primary Care Nurse Name: Zo Segal RN Position: [facility] Nurse Member Role: Primary Care Nurse Name: Antonia Mtz RN Position: [facility] RN Member Role: Primary Care Nurse Name: Katelynn Moss RN Position: [facility] RN Member Role: Primary Care Nurse Name: Milla Emmanuel RN Position: [facility] RN Member Role: Primary Care Nurse Name: Carol Min [place] Position: [facility] RN Member Role: Primary Care Nurse Name: Katt Gustafson Position: [facility] RN Member Role: Primary Care Nurse Name: Ashely Pacheco Position: [facility] RN Member Role: Primary Care Nurse Name: Miri Espitia RN Position: [facility] Nurse Member Role: Primary Care Nurse [...] Ramirez RN Position: [facility] Onco RN Member Role: Primary Care Nurse Name: Ashlyn Cordova RN Position: [facility] Onco RN Member Role: Primary Care Nurse Name: Jennifer Ignacio RN Position: [facility] RN Member Role: Primary Care Nurse Care Team Related Persons Name: JENI TATIANNAOg Address: [address] [address] Name: TEVIN WILL Address: home [address] [place] [address] Name: ALEX WILL Address: home [address] [place] [address] Name: ALEX ROPER Address: home [address] [place] [address]
--- OUTSIDE RECORDS SUMMARY | 2023-09-06 15:46 | XMS_ITS | Continuity of Care Document ---
Author Organization [facility] Primary Car e Bean Address [address] [place] [address]- Care Team Providers Care Sensor Operator Name Role Phone Helena GALLEGOS, Marissa Hernandez Primary Care Physician [phone] Encounter [facility] Date(s): 05/02/23 - 06/01/23 [facility] [address] [place], [place] [address] Allergies, Adverse [...] 02/03/23 13:42:00 EDT, Route to Pharmacy Electronically, [facility] #[id number], 166, cm, 12/16/22 17:39:00 EDT, Height, 77, kg, 12/12/22 16:21:00... Start Date: 02/03/23 Stop Date: 08/02/23 Status: Ordered Albuterol (Eqv-ProAir HFA) 90 mcg/inh inhalation aerosol 2 puffs, Inhalation, Every 6 hours, # 8.5 Gm, 0 Refills, Maintenance, 02/17/23 18:07:00 EDT, [facility] #[id number], Partial fill upon patient request if the [...] 1 Refills, Maintenance, 02/03/23 13:43:00 EDT, Tablet, [facility] #[id number], Partial fill upon patient request if the prescription is for a schedule II opioid drug., 166, cm, 12/16/22 17:... Start Date: 02/03/23 Stop Date: 08/02/23 Status: Ordered Creon 36,000 units oral delayed release capsule 1 capsule, By Mouth, 3 times a day, # 90 capsule, 3 Refills, Maintenance, 06/08/22 9:09:00 EST, [facility] #[id number], Partial fill upon patient request if the prescription is for a schedule IIopioid drug., 1 capsule By Mouth 3 times a day, 165... Start Date: 06/08/22 Status: Ordered doxepin 50 mg oral capsule 1 capsule = 50 mg, By Mouth, Daily at bedtime, # 90 capsule, 1 Refills, Maintenance, 02/03/23 13:43:00 EDT, Capsule, [facility] #[id number], 166, cm, 12/16/22 17:39:00 EDT, Height, 77, kg, 12/12/22 16:21:00 EDT, Dry Weight Start Date: 02/03/23 Stop Date: 08/02/23 Status: Ordered gabapentin 600 mg oral tablet See Instructions, 1 tablet in the morning and 2 tablets at bedtime, # 270 tablet, 1 Refills, Maintenance, 02/03/23 13:43:00 EDT, Tablet, [facility] #[id number], 90 day supply, 166, cm, 12/16/22 17:39:00 [...] Maintenance,02/03/23 13:43:00 EDT, Route to Pharmacy Electronically, [facility] #[id number], Partial fill upon patient request if the prescription is for a sc... Start Date: 02/03/23 Stop Date: 08/02/23 Status: Ordered LORazepam 1 mg oral tablet 1 tablet = 1 mg, By Mouth, 2 times a day, PRN as needed for anxiety, # 60 tablet, 1 Refills, Maintenance, 04/28/23 13:31:00 EST, Tablet, [facility] #[id number], Partial fill upon patient requestif the prescription [...] 1 Refills, Maintenance, 10/01/19 11:23:00 EDT, Tablet, [facility], 1 tablet By Mouth Daily,x30 days, 165.1, cm, 05/26/20 8:37:00 EDT, Height, 80.1, kg, 09/19/19 16:30:00 [...] Maintenance,02/03/23 13:47:00 EDT, Route to Pharmacy Electronically, [facility] #[id number], 166, cm, 12/16/22 17:39:00 EDT, Height, 77, kg, 12/12/22 16:21:00... Start Date: 02/03/23 Stop Date: 08/02/23 Status: Ordered traZODone 100 mg oral tablet 100 mg, 1, tablet, By Mouth, Daily at bedtime, TAKE 1 TABLET BY MOUTH EVERY NIGHT AT BEDTIME, # 90 tablet, Refills 1, Tot. Refills 1, Maintenance, 02/03/23 13:46:00 EDT, Route to Pharmacy Electronically, [facility] #[id number], Partial fill upon... Start Date: 02/03/23 Stop Date: 08/02/23 Status: Ordered Wellbutrin XL 150 mg/24 hours oral tablet, extended release 1 tablet = 150 mg, By Mouth, Every 24 hours, # 90 tablet, 1 Refills, Maintenance, 02/03/23 13:43:00EDT, XL Tablet, [facility] #[id number], Partial fill upon patient request if the [...] Team Personnel Name: Marissa Malik NP Position: [facility] PCO Associate Professional Member Role: PCP Address: Address: [address] [place] [id number] Name: Elisa Lamar RN Position: [facility] RN Member Role: Primary Care Nurse Name: Zo Segal RN Position: [facility] Nurse Member Role: Primary Care Nurse Name: Antonia Mtz RN Position: [facility] RN Member Role: Primary Care Nurse Name: Milla Emmanuel RN Position: [facility] RN Member Role: Primary Care Nurse Name: Carol Min [place] Position: [facility] RN Member Role: Primary Care Nurse Name: Katt Gustafson Position: [facility] RN Member Role: Primary Care Nurse Name: Ashely Pacheco Position: [facility] RN Member Role: Primary Care Nurse Name: Miri Espitia RN Position: [facility] Nurse Member Role: Primary Care Nurse Name: Maksim Hunt III, RN Position: [facility] RN Member Role: Primary Care Nurse Name: Elisa Fields RN Position: [facility] RN Member Role: Primary Care Nurse Name: Aron Mcginnis RN Position: [facility] RN Member Role: Primary Care Nurse Name: Natalia Plata RN Position: [facility] RN Member Role: Primary Care Nurse Name: Kacy Barnhart RN Position: [facility] RN Member Role: Primary Care Nurse Name: Guerline Ramirez RN Position: [facility] Onco RN Member Role: Primary Care Nurse Name: Ashlyn Cordova RN Position: [facility] Onco RN Member Role: Primary Care Nurse Name: Jennifer Ignacio RN Position: [facility] RN Member Role: Primary Care Nurse Care Team Related Persons Name: KORY NGO Address: home [address] [address] Name: TEVIN WILL Address: home [address] [place] [address] Name: ALEX WILL Address: home [address] [place] [address] Name: ALEX ROPER Address: home [address] [place] [address]
--- OUTSIDE RECORDS SUMMARY | 2023-09-06 15:46 | XMS_ITS | Continuity of Care Document ---
Author Organization [facility] Primary Car e Bean Address [address] [place] [address]- Care Team Providers Care Station Installer And Repairer Name Role Phone Marissa Malik NP Primary Care Physician Encounter [facility] Date(s): 05/11/22 - 08/25/22 [facility] Primary Care [facility] [address] [place], [place] [address] Attending Physician: Renae BUTTERFIELD ([facility]), Roberto Sandoval Allergies, Adverse Reactions, Alerts Substance Reaction [...] 08/16/22 13:06:00 EDT, Route to Pharmacy Electronically, [facility] #[id number], 165, cm, 07/19/22 13:50:00 EDT, Height, 77.5, kg, 07/19/22 13:50:0... Start Date: 08/16/22 Stop Date: 12/14/22 Status: Ordered acamprosate 333 mg oral delayed release tablet 2 tablet = 666 mg, By Mouth, 3 times a day, # 180 tablet, 0 Refills, Maintenance, 04/19/22 12:37:00EST, CR Tablet, [facility] 3, Partial fill upon patient request if the prescription is for a schedule II opioid drug., 165, cm, 04/19/22 11... Start Date: 04/19/22 Stop Date: 05/19/22 Status: Ordered busPIRone 15 mg oral tablet 1 tablet = 15 mg, By Mouth, 3 times a day, # 90 tablet, 3 Refills, Maintenance, 08/16/22 13:06:00 EDT, Tablet, [facility] #[id number], Partial fill upon patient request if the prescription is for a schedule II opioid drug., 165, cm, 07/19/22 13:5... Start Date: 08/16/22 Stop Date: 12/14/22 Status: Ordered Creon 36,000 units oral delayed release capsule 1 capsule, By Mouth, 3 times a day, # 90 capsule, 3 Refills, Maintenance, 06/08/22 9:09:00 EST, [facility] #[id number], Partial fill upon patient request if the prescription is for a schedule IIopioid drug., 1 capsule By Mouth 3 times a day, 165... Start Date: 06/08/22 Status: Ordered doxepin 50 mg oral capsule 1 capsule = 50 mg, By Mouth, Daily at bedtime, # 30 capsule, 3 Refills, Maintenance, 08/16/22 13:06:00 EDT, Capsule, [facility] #[id number], 165, cm, 07/19/22 13:50:00 EDT, Height, 77.5, kg, 07/19/22 13:50:00 EDT, Dry Weight Start Date: 08/16/22 Stop Date: 12/14/22 Status: Ordered fluticasone 50 mcg/inh nasal spray See Instructions, SHAKE LIQUID AND USE 1 SPRAY IN EACH NOSTRIL TWICE DAILY, # 15.8 mL, 3 Refills, 03/23/21 16:18:00 EST, [facility] #[id number], SHAKE LIQUID AND USE 1 SPRAY IN EACH NOSTRIL TWICE DAILY, 164, cm, 03/23/21 15:58:00 EST, Height, 86.... Start Date: 03/23/21 Status: Ordered gabapentin 600 mg oral tablet See Instructions, 1 tablet in the morning and 2 tablets at bedtime, # 90 tablet, 3 Refills, Maintenance, 08/16/22 13:07:00 EDT, Tablet, [facility] #[id number], 165, cm, 07/19/22 13:50:00 EDT, Height, 77.5, kg, 07/19/22 13:50:00 EDT, Dry Weight Start Date: 08/16/22 Status: Ordered HYDROmorphone 2 mg oral tablet 1 tablet = 2 mg, By Mouth, Every 6 hours, PRN as needed for pain, # 8 tablet, 0 Refills, Maintenance, 07/19/22 18:31:00 EDT, Tablet, [facility] #[id number], Partial fill upon patient request if the prescription is for a schedule II opioid drug.,... Start Date: 07/19/22 Status: Ordered loperamide 2 mg oral capsule 2 mg, 1, capsule, By Mouth, Every 3 hours, PRN, # 30 capsule, Refills 0, Tot. Refills 0, Acute 04/19/23 11:43:00 EST, Loose Stool, 04/19/22 11:43:00 EST, Route to Pharmacy Electronically, [facility] 3, Partial fill upon patient request if... Start Date: 04/19/22 Stop Date: 04/19/23 Status: Ordered LORazepam 1 mg oral tablet 1 tablet = 1 mg, By Mouth, 3 times a day, PRN as needed for anxiety, # 90 tablet, 3 Refills, Maintenance, 08/16/22 13:07:00 EDT, Tablet, [facility] #[id number], Partial fill upon patient requestif the prescription is for a schedule II opioid elijah... Start Date: 08/16/22 Stop Date: 12/14/22 Status: Ordered multivitamin Multiple Vitamins oral tablet 1 tablet, By Mouth, Daily, # 30 tablet, 1 Refills, Maintenance, 10/01/19 11:23:00 EDT, Tablet, [facility]-36205, 1 tablet By Mouth Daily,x30 days, 165.1, cm, 10/01/19 8:37:00 EDT, Height, 80.1, kg, 09/19/19 16:30:00 EDT, Dry Weight Start Date: 10/01/19 Stop Date: 11/30/19 Status: Ordered Narcan 4 mg/0.1 mL nasal spray = 4 mg, Nares, Both, Once, # 2 each, 0 Refills, Soft Stop, 04/19/22 12:16:00 EST, [facility] 3, Partial fill upon patient request if [...] Maintenance,08/16/22 13:07:00 EDT, Route to Pharmacy Electronically, [facility] #[id number], 165, cm, 07/19/22 13:50:00 EDT, Height, 77.5, kg, 07/19/22 13:50:... Start Date: 08/16/22 Stop Date: 12/14/22 Status: Ordered traMADol 50 mg oral tablet 1 tablet = 50 mg, By Mouth, Every 8 hours, 30 each, TAKE 1 TABLET BY MOUTH EVERY 8 HOURS NEEDED FOR FOR PAIN, # 30 tablet, 1 Refills, Maintenance, 08/16/22 15:31:00 EDT, Tablet, [facility] #[id number], Partial fill upon patient request if the... Start Date: 08/16/22 Status: Ordered traZODone 100 mg oral tablet 100 mg, 1, tablet, By Mouth, Daily at bedtime, TAKE 1 TABLET BY MOUTH EVERY NIGHT AT BEDTIME, # 30 tablet, Refills 3, Tot. Refills 3, Maintenance, 08/16/22 13:07:00 EDT, Route to Pharmacy Electronically, [facility] #[id number], Partial fill upon... Start Date: 08/16/22 Stop [...] Professional Member Role: PCP Address: Address: [address] [place] [address] [place], [place] [address] Name: Elisa Lamar RN Position: [facility] Emmanuel RN Position: [facility] SN RN Member Role: Primary Care Nurse Name: Carol Cordova Position: [facility] RN Member Role: Primary Care Nurse Name: Katt Gustafson Position: [facility] RN Member Role: [...] Persons Name: KORY NGO Address: home [address] [address] Name: TEVIN WILL Address: home [address] [place] [address] Name: ALEX WILL Address: home [address] [place] [address] Name: ALEX ROPER Address: home [address] [place] [address]
--- OUTSIDE RECORDS SUMMARY | 2023-09-06 15:46 | XMS_ITS | Continuity of Care Document ---
Author Organization [facility] Primary Car e Bean Address [address] [place] [address]- Care Team Providers Care Park Interpretive Specialist Name Role Phone Marissa Malik NP Primary Care Physician Encounter [facility] Date(s): 06/21/22 - 07/21/22 [facility] Primary Care [facility] [address] [place], [place] [address] Allergies, Adverse Reactions, Alerts [...] 06/10/22 14:19:00 EST, Route to Pharmacy Electronically, [facility] #[id number], 165, cm, 05/25/22 14:24:00 EST, Height, 80, kg, 04/14/22 3:03:00 E... Start Date: 06/10/22 Stop Date: 10/08/22 Status: Ordered acamprosate 333 mg oral delayed release tablet 2 tablet = 666 mg, By Mouth, 3 times a day, # 180 tablet, 0 Refills, Maintenance, 04/19/22 12:37:00EST, CR Tablet, [facility], Partial fill upon patient request if the prescription is for a schedule II opioid drug., 165, cm, 04/19/22 11... Start Date: 04/19/22 Stop Date: 05/19/22 Status: Ordered busPIRone 15 mg oral tablet 1 tablet = 15 mg, By Mouth, 3 times a day, # 90 tablet, 3 Refills, Maintenance, 06/10/22 14:24:00 EST, Tablet, [facility] #[id number], Partial fill upon patient request if the prescription is for a schedule II opioid drug., 165, cm, 05/25/22 14:2... Start Date: 06/10/22 Stop Date: 10/08/22 Status: Ordered Creon 36,000 units oral delayed release capsule 1 capsule, By Mouth, 3 times a day, # 90 capsule, 3 Refills, Maintenance, 06/08/22 9:09:00 EST, [facility] #[id number], Partial fill upon patient request if the prescription is for a schedule IIopioid drug., 1 capsule By Mouth 3 times a day, 165... Start Date: 06/08/22 Status: Ordered doxepin 50 mg oral capsule 1 capsule = 50 mg, By Mouth, Daily at bedtime, # 30 capsule, 3 Refills, Maintenance, 06/10/22 14:20:00 EST, Capsule, [facility] #[id number], 165, cm, 05/25/22 14:24:00 EST, Height, 80, kg, 04/14/22 3:03:00 EST, Dry Weight Start Date: 06/10/22 Stop Date: 10/08/22 Status: Ordered fluticasone 50 mcg/inh nasal spray See Instructions, SHAKE LIQUID AND USE 1 SPRAY IN EACH NOSTRIL TWICE DAILY, # 15.8 mL, 3 Refills, 03/23/21 16:18:00 EST, [facility] #[id number], SHAKE LIQUID AND USE 1 SPRAY IN EACH NOSTRIL TWICE DAILY, 164, cm, 03/23/21 15:58:00 EST, Height, 86.... Start Date: 03/23/21 Status: Ordered gabapentin 600 mg oral tablet See Instructions, 1 tablet in the morning and 2 tablets at bedtime, # 90 tablet, 3 Refills, Maintenance, 06/10/22 14:20:00 EST, Tablet, [facility] #[id number], 165, cm, 05/25/22 14:24:00 EST, Height, 80, kg, 04/14/22 3:03:00 EST, Dry Weight Start Date: 06/10/22 Status: Ordered HYDROmorphone 2 mg oral tablet 1 tablet = 2 mg, By Mouth, Every 6 hours, PRN as needed for pain, # 8 tablet, 0 Refills, Maintenance, 07/19/22 18:31:00 EDT, Tablet, [facility] #[id number], Partial fill upon patient request if the prescription is for a schedule II opioid drug.,... Start Date: 07/19/22 Status: Ordered loperamide 2 mg oral capsule 2 mg, 1, capsule, By Mouth, Every 3 hours, PRN, # 30 capsule, Refills 0, Tot. Refills 0, Acute 04/19/23 11:43:00 EST, Loose Stool, 04/19/22 11:43:00 EST, Route to Pharmacy Electronically, [facility], Partial fill upon patient request if... Start Date: 04/19/22 Stop Date: 04/19/23 Status: Ordered LORazepam 1 mg oral tablet 1 tablet = 1 mg, By Mouth, 3 times a day, PRN as needed for anxiety, # 90 tablet, 3 Refills, Maintenance, 06/10/22 14:21:00 EST, Tablet, [facility] #[id number], Partial fill upon patient requestif the prescription is for a schedule II opioid elijah... Start Date: 06/10/22 Stop Date: 10/08/22 Status: Ordered multivitamin Multiple Vitamins oral tablet 1 tablet, By Mouth, Daily, # 30 tablet, 1 Refills, Maintenance, 10/01/19 11:23:00 EDT, Tablet, [facility] 1 tablet By Mouth Daily,x30 days, 165.1, cm, 10/01/19 8:37:00 EDT, Height, 80.1, kg, 09/19/19 16:30:00 EDT, Dry Weight Start Date: 10/01/19 Stop Date: 11/30/19 Status: Ordered Narcan 4 mg/0.1 mL nasal spray = 4 mg, Nares, Both, Once, # 2 each, 0 Refills, Soft Stop, 04/19/22 12:16:00 EST, [facility], Partial fill upon patient request [...] Maintenance,06/10/22 14:21:00 EST, Route to Pharmacy Electronically, [facility] #[id number], 165, cm, 05/25/22 14:24:00 EST, Height, 80, kg, 04/14/22 3:03:00... Start Date: 06/10/22 Stop Date: 10/08/22 Status: Ordered traMADol 50 mg oral tablet 1 tablet = 50 mg, By Mouth, Every 8 hours, 30 each, TAKE 1 TABLET BY MOUTH EVERY 8 HOURS NEEDED FOR FOR PAIN, # 30 tablet, 2 Refills, Maintenance, 06/14/22 15:23:00 EST, Tablet, [facility] #[id number], Partial fill upon patient request if the... Start Date: 06/14/22 Status: Ordered traZODone 100 mg oral tablet 100 mg, 1, tablet, By Mouth, Daily at bedtime, TAKE 1 TABLET BY MOUTH EVERY NIGHT AT BEDTIME, # 30 tablet, Refills 3, Tot. Refills 3, Maintenance, 06/10/22 14:22:00 EST, Route to Pharmacy Electronically, [facility] #[id number], Partial fill upon... Start Date: 06/10/22 Stop [...] Personnel Name: Marissa Malik NP Position: [facility]O Associate Professional Member Role: PCP Address: Address: [address] [place] [id number] Name: Elisa Lamar RN Position: [facility] RN Member Role: Primary Care Nurse Name: Zo Segal RN Position: [facility] RN Member Role: Primary Care Nurse Name: Antonia Mtz RN Position: [facility] RN Member Role: Primary Care Nurse Name: Tiffany Ugalde RN Position: [facility] RN Member Role: Primary Care Nurse Name: Katelynn Moss RN Position: [facility] RN Member Role: Primary Care Nurse Name: Milla Emmanuel RN Position: [facility] SN RN Member Role: Primary Care Nurse Name: Carol Cordova Position: [facility] RN Member Role: Primary Care Nurse Name: Katt Gustafson Position: [facility] RN Member Role: Primary Care Nurse Name: Ashely Pacheco Position: [facility] RN Member Role: Primary Care Nurse Name: Miri Espitia RN Position: [facility] AMB Nurse Member Role: Primary Care Nurse Name: Maksim Hunt III, RN Position: [facility] RN Member Role: Primary Care Nurse Name: Elisa Fields RN Position: [facility] RN Member Role: Primary Care Nurse Name: Aron Mcginnis RN Position: [facility] SN RN Member Role: Primary Care Nurse Name: Natalia Plata RN Position: [facility] RN Member Role: Primary Care Nurse Name: Kacy Barnhart RN Position: [facility] RN Member Role: Primary Care Nurse Name: Guerline Ramirez RN Position: [facility] RN Member Role: Primary Care Nurse Name: Ashlyn Cordova RN Position: [facility] Onco RN Member Role: Primary Care Nurse Name: Jennifer Ignacio RN Position: [facility] RN Member Role: Primary Care Nurse Care Team Related Persons Name: KORY NGO Address: home [address] [address] Name: TEVIN WILL Address: home [address] [place] [address] Name: ALEX WILL Address: home [address] [place] [address] Name: ALEX ROPER Address: home [address] [place] [address]
--- OUTSIDE RECORDS SUMMARY | 2023-09-06 15:46 | XMS_ITS | Continuity of Care Document ---
Author Organization [facility] Primary [facility] e [facility] Address [address] [place] [address]- Care Team Providers Care Customer Account Administrator Name Role Phone Helena GALLEGOS, Marissa Hernandez Primary [id number] Date(s): 06/05/22 - 07/05/22 [facility] Care [facility] [address], [place] [address] Allergies, Adverse Reactions, Alerts Substance Reaction [...] 06/10/22 14:19:00 EST, Route to Pharmacy Electronically, [facility] #[id number], 165, cm, 05/25/22 14:24:00 EST, Height, 80, kg, 04/14/22 3:03:00 E... Start Date: 06/10/22 Stop Date: 10/08/22 Status: Ordered acamprosate 333 mg oral delayed release tablet 2 tablet = 666 mg, By Mouth, 3 times a day, # 180 tablet, 0 Refills, Maintenance, 04/19/22 12:37:00EST, CR Tablet, [facility], Partial fill upon patient request if the prescription is for a schedule II opioid drug., 165, cm, 04/19/22 11... Start Date: 04/19/22 Stop Date: 05/19/22 Status: Ordered busPIRone 15 mg oral tablet 1 tablet = 15 mg, By Mouth, 3 times a day, # 90 tablet, 3 Refills, Maintenance, 06/10/22 14:24:00 EST, Tablet, [facility] #[id number], Partial fill upon patient request if the prescription is for a schedule II opioid drug., 165, cm, 05/25/22 14:2... Start Date: 06/10/22 Stop Date: 10/08/22 Status: Ordered Creon 36,000 units oral delayed release capsule 1 capsule, By Mouth, 3 times a day, # 90 capsule, 3 Refills, Maintenance, 06/08/22 9:09:00 EST, [facility] #[id number], Partial fill upon patient request if the prescription is for a schedule IIopioid drug., 1 capsule By Mouth 3 times a day, 165... Start Date: 06/08/22 Status: Ordered doxepin 50 mg oral capsule 1 capsule = 50 mg, By Mouth, Daily at bedtime, # 30 capsule, 3 Refills, Maintenance, 06/10/22 14:20:00 EST, Capsule, [facility] #[id number], 165, cm, 05/25/22 14:24:00 EST, Height, 80, kg, 04/14/22 3:03:00 EST, Dry Weight Start Date: 06/10/22 Stop Date: 10/08/22 Status: Ordered fluticasone 50 mcg/inh nasal spray See Instructions, SHAKE LIQUID AND USE 1 SPRAY IN EACH NOSTRIL TWICE DAILY, # 15.8 mL, 3 Refills, 03/23/21 16:18:00 EST, [facility] #[id number], SHAKE LIQUID AND USE 1 SPRAY IN EACH NOSTRIL TWICE DAILY, 164, cm, 03/23/21 15:58:00 EST, Height, 86.... Start Date: 03/23/21 Status: Ordered gabapentin 600 mg oral tablet See Instructions, 1 tablet in the morning and 2 tablets at bedtime, # 90 tablet, 3 Refills, Maintenance, 06/10/22 14:20:00 EST, Tablet, [facility] #[id number], 165, cm, 05/25/22 14:24:00 EST, Height, 80, kg, 04/14/22 3:03:00 EST, Dry Weight Start Date: 06/10/22 Status: Ordered loperamide 2 mg oral capsule 2 mg, 1, capsule, By Mouth, Every 3 hours, PRN, # 30 capsule, Refills 0, Tot. Refills 0, Acute 04/19/23 11:43:00 EST, Loose Stool, 04/19/22 11:43:00 EST, Route to Pharmacy Electronically, [facility], Partial fill upon patient request if... Start Date: 04/19/22 Stop Date: 04/19/23 Status: Ordered LORazepam 1 mg oral tablet 1 tablet = 1 mg, By Mouth, 3 times a day, PRN as needed for anxiety, # 90 tablet, 3 Refills, Maintenance, 06/10/22 14:21:00 EST, Tablet, [facility] #[id number], Partial fill upon patient requestif the prescription is for a schedule II opioid elijah... Start Date: 06/10/22 Stop Date: 10/08/22 Status: Ordered multivitamin Multiple Vitamins oral tablet 1 tablet, By Mouth, Daily, # 30 tablet, 1 Refills, Maintenance, 10/01/19 11:23:00 EDT, Tablet, [facility], 1 tablet By Mouth Daily,x30 days, 165.1, cm, 10/01/19 8:37:00 EDT, Height, 80.1, kg, 09/19/19 16:30:00 EDT, Dry Weight Start Date: 10/01/19 Stop Date: 11/30/19 Status: Ordered Narcan 4 mg/0.1 mL nasal spray = 4 mg, Nares, Both, Once, # 2 each, 0 Refills, Soft Stop, 04/19/22 12:16:00 EST, [facility], Partial fill upon patient [...] Maintenance,06/10/22 14:21:00 EST, Route to Pharmacy Electronically, [facility] #[id number], 165, cm, 05/25/22 14:24:00 EST, Height, 80, kg, 04/14/22 3:03:00... Start Date: 06/10/22 Stop Date: 10/08/22 Status: Ordered traMADol 50 mg oral tablet 1 tablet = 50 mg, By Mouth, Every 8 hours, 30 each, TAKE 1 TABLET BY MOUTH EVERY 8 HOURS NEEDED FOR FOR PAIN, # 30 tablet, 2 Refills, Maintenance, 06/14/22 15:23:00 EST, Tablet, [facility] #[id number], Partial fill upon patient request if the... Start Date: 06/14/22 Status: Ordered traZODone 100 mg oral tablet 100 mg, 1, tablet, By Mouth, Daily at bedtime, TAKE 1 TABLET BY MOUTH EVERY NIGHT AT BEDTIME, # 30 tablet, Refills 3, Tot. Refills 3, Maintenance, 06/10/22 14:22:00 EST, Route to Pharmacy Electronically, [facility] #[id number], Partial fill upon... Start Date: 06/10/22 Stop [...] Team Personnel Name: Marissa Malik NP Position: [facility] PCO Associate Professional Member Role: PCP Address: Address: [address] [place] [id number] Name: Elisa Lamar RN Position: [facility] RN Member Role: Primary Care Nurse Name: Zo Segal RN Position: [facility] RN Member Role: Primary Care Nurse Name: Antonia Mtz RN Position: [facility] RN Member Role: Primary Care Nurse Name: Tiffany Ugalde RN Position: [facility] RN Member Role: Primary Care Nurse Name: Katelynn Moss RN Position: [facility] RN Member Role: Primary Care Nurse Name: Milla Emmanuel RN Position: [facility] AMB Nurse Member Role: Primary Care Nurse Name: Carol Cordova Position: [facility] RN Member Role: Primary Care Nurse Name: Katt Gustafson Position: [facility] RN Member Role: Primary Care Nurse Name: Ashely Pacheco Position: [facility] RN Member Role: Primary Care Nurse Name: Miri Espitia RN Position: [facility] Nurse Member Role: Primary Care Nurse Name: Maksim Hunt III, RN Position: [facility] RN Member Role: Primary Care Nurse Name: Elisa Fields RN Position: [facility] RN Member Role: Primary Care Nurse Name: Aron Mcginnis RN Position: [facility] SN RN Member Role: Primary Care Nurse Name: Natalia Plata RN Position: [facility] RN Member Role: Primary Care Nurse Name: Kacy Barnhart RN Position: [facility] RN Member Role: Primary Care Nurse Name: Guerline Ramirez RN Position: [facility] RN Member Role: Primary Care Nurse Name: Ashlyn Cordova RN Position: [facility] Onco RN Member Role: Primary Care Nurse Name: Jennifer Ignacio RN Position: [facility] RN Member Role: Primary Care Nurse Care Team Related Persons Name: KORY NGO Address: home [address] [address] Name: TEVIN WILL Address: home [address] [place] [address] Name: ALEX WILL Address: home [address] [place] [address] Name: ALEX ROPER Address: home [address] [place] [address]
--- OUTSIDE RECORDS SUMMARY | 2023-09-06 15:46 | XMS_ITS | Continuity of Care Document ---
Author Organization [facility] Address [address] [place] [id number]- Care Team Providers Care Customer Acquisition Specialist Name Role Phone Marissa Malik NP Primary Care Physician Encounter [facility] Date(s): 04/20/22 - 05/20/22 [facility] [address] [place] [id number]- [place] Allergies, Adverse Reactions, Alerts Substance Reaction [...] 03/15/22 11:53:00 EST, Route to Pharmacy Electronically, [id number] #[id number], 165, cm, 02/23/22 23:48:00 EDT, Height, 83, kg, 02/23/22 0:48:00 E... Start Date: 03/15/22 Stop Date: 07/13/22 Status: Ordered acamprosate 333 mg oral delayed release tablet 2 tablet = 666 mg, By Mouth, 3 times a day, # 180 tablet, 0 Refills, Maintenance, 04/19/22 12:37:00EST, CR Tablet, [facility], Partial fill upon patient request if the prescription is for a schedule II opioid drug., 165, cm, 04/19/22 11... Start Date: 04/19/22 Stop Date: 05/19/22 Status: Ordered Creon 36,000 units oral delayed release capsule 1 capsule, By Mouth, 3 times a day, # 90 capsule, 0 Refills, Maintenance, 05/06/22 14:15:00 EST, [facility] #[id number], Partial fill upon patient request if the prescription is for a schedule II opioid drug., 1 capsule By Mouth 3 times a day, 16... Start Date: 05/06/22 Status: Ordered doxepin 50 mg oral capsule 1 capsule = 50 mg, By Mouth, Daily at bedtime, # 30 capsule, 3 Refills, Maintenance, 03/15/22 11:53:00 EST, Capsule, [facility] #[id number], 165, cm, 02/23/22 23:48:00 EDT, Height, 83, kg, 02/23/22 0:48:00 EDT, Dry Weight Start Date: 03/15/22 Stop Date: 07/13/22 Status: Ordered fluticasone 50 mcg/inh nasal spray See Instructions, SHAKE LIQUID AND USE 1 SPRAY IN EACH NOSTRIL TWICE DAILY, # 15.8 mL, 3 Refills, 03/23/21 16:18:00 EST, [facility] #[id number], SHAKE LIQUID AND USE 1 SPRAY IN EACH NOSTRIL TWICE DAILY, 164, cm, 03/23/21 15:58:00 EST, Height, 86.... Start Date: 03/23/21 Status: Ordered gabapentin 600 mg oral tablet See Instructions, 1 tablet in the morning and 2 tablets at bedtime, # 90 tablet, 3 Refills, Maintenance, 03/15/22 11:52:00 EST, Tablet, [facility] #[id number], 165, cm, 02/23/22 23:48:00 EDT, Height, 83, kg, 02/23/22 0:48:00 EDT, Dry Weight Start Date: 03/15/22 Status: Ordered loperamide 2 mg oral capsule 2 mg, 1, capsule, By Mouth, Every 3 hours, PRN, # 30 capsule, Refills 0, Tot. Refills 0, Acute 04/19/23 11:43:00 EST, Loose Stool, 04/19/22 11:43:00 EST, Route to Pharmacy Electronically, [facility] 3, Partial fill upon patient [...] tablet, 0 Refills, Maintenance, 04/19/22 13:13:00 EST, [facility] 3, Partial fill upon patient request if the prescription is for a schedule II opioid drug., 165, cm, 04/19/22 11:15:00 EST,... Start Date: 04/19/22 Stop Date: 04/26/22 Status: Ordered morphine 15 mg/8 to 12 hr oral tablet, extended release 1 tablet = 15 mg, By Mouth, Every 12 hours, # 6 tablet, 0 Refills, Maintenance, 04/30/22 16:54:00 EST, [facility] #[id number], Partial fill upon patient request if the prescription is for a schedule II opioid drug., 165, cm, 04/19/22 11:15:00 EST... Start Date: 04/30/22 Stop Date: 05/03/22 Status: Ordered multivitamin Multiple Vitamins oral tablet 1 tablet, By Mouth, Daily, # 30 tablet, 1 Refills, Maintenance, 10/01/19 11:23:00 EDT, Tablet, [facility]-, 1 tablet By Mouth Daily,x30 days, 165.1lali, 10/01/19 8:37:00 EDT, Height, 80.1, kg, 09/19/19 [...] Maintenance,03/15/22 11:52:00 EST, Route to Pharmacy Electronically, [facility] #[id number], 165, cm, 02/23/22 23:48:00 EDT, Height, 83, kg, 02/23/22 0:48:00... Start Date: 03/15/22 Stop Date: 07/13/22 Status: Ordered traZODone 100 mg oral tablet TAKE 1 TABLET BY MOUTH EVERY NIGHT AT BEDTIME Start Date: 04/14/22 Status: Ordered Zoloft 100 mg oral tablet 2 tablet = 200 mg, By Mouth, Daily, # 60 tablet, 1 Refills, Maintenance, 03/15/22 11:52:00 EST, Tablet, [facility] #[id number], 165, cm, 02/23/22 23:48:00 EDT, Height, 83, [...] Name: Marissa Malik NP Position: [facility] PCO Associate Professional Member Role: PCP Address: Address: [address] [place] [id number] Name: Elisa Lamar RN Position: [facility] RN Member Role: Primary Care Nurse Name: Zo Segal RN Position: [facility] RN Member Role: Primary Care Nurse Name: Antonia Mtz RN Position: [facility] RN Member Role: Primary Care Nurse Name: Tiffany Ugalde RN Position: [facility] RN Member Role: Primary Care Nurse Name: Katelynn Moss RN Position: [facility] RN Member Role: Primary Care Nurse Name: Milla Emmanuel RN Position: [facility] AMB Nurse Member Role: Primary Care Nurse Name: Carol Cordova Position: [facility] RN Member Role: Primary Care Nurse Name: Katt Gustafson Position: [facility] RN Member Role: Primary Care Nurse Name: Ashely Pacheoc Position: [facility] RN Member Role: Primary Care Nurse Name: Miri Espitia RN Position: [facility] Nurse Member Role: Primary Care Nurse Name: Maksim Hunt III, RN Position: [facility] RN Member Role: Primary Care Nurse Name: Elisa Fields RN Position: [facility] RN Member Role: Primary Care Nurse Name: Aron Mcginnis RN Position: [facility] SN RN Member Role: Primary Care Nurse Name: Natalia Plata RN Position: [facility] RN Member Role: Primary Care Nurse Name: Kacy Barnhart RN Position: [facility] RN Member Role: Primary Care Nurse Name: Guerline Ramirez RN Position: [facility] RN Member Role: Primary Care Nurse Name: Ashlyn Cordova RN Position: [facility] Onco RN Member Role: Primary Care Nurse Name: Jennifer Ignacio RN Position: [facility] RN Member Role: Primary Care Nurse Care Team Related Persons Name: KORY NGO Address: home [address] [address] Name: TEVIN WILL Address: [address] [place] [address] Name: ALEX WILL Address: [address] [place] [address] Name: ALEX ROPER Address: [address] [place] [address]
--- OUTSIDE RECORDS SUMMARY | 2023-09-06 15:46 | XMS_ITS | Continuity of Care Document ---
Author Organization [facility] Primary [facility] Address [address] [place] [address]- Care Team Providers Care Claim Inspector Name Role Phone Helena GALLEGOS, Marissa Hernandez Primary Care Physician Encounter [facility] Date(s): 06/14/22 - 07/14/22 [facility] Care [facility] [address] [place], [place] [address] [[email or web address]] Allergies, Adverse Reactions, Alerts Substance Reaction Severity [...] 06/10/22 14:19:00 EST, Route to Pharmacy Electronically, [facility] #[id number], 165, cm, 05/25/22 14:24:00 EST, Height, 80, kg, 04/14/22 3:03:00 E... Start Date: 06/10/22 Stop Date: 10/08/22 Status: Ordered acamprosate 333 mg oral delayed release tablet 2 tablet = 666 mg, By Mouth, 3 times a day, # 180 tablet, 0 Refills, Maintenance, 04/19/22 12:37:00EST, CR Tablet, [facility], Partial fill upon patient request if the prescription is for a schedule II opioid drug., 165, cm, 04/19/22 11... Start Date: 04/19/22 Stop Date: 05/19/22 Status: Ordered busPIRone 15 mg oral tablet 1 tablet = 15 mg, By Mouth, 3 times a day, # 90 tablet, 3 Refills, Maintenance, 06/10/22 14:24:00 EST, Tablet, [facility] #[id number], Partial fill upon patient request if the prescription is for a schedule II opioid drug., 165, cm, 05/25/22 14:2... Start Date: 06/10/22 Stop Date: 10/08/22 Status: Ordered Creon 36,000 units oral delayed release capsule 1 capsule, By Mouth, 3 times a day, # 90 capsule, 3 Refills, Maintenance, 06/08/22 9:09:00 EST, [facility] #[id number], Partial fill upon patient request if the prescription is for a schedule IIopioid drug., 1 capsule By Mouth 3 times a day, 165... Start Date: 06/08/22 Status: Ordered doxepin 50 mg oral capsule 1 capsule = 50 mg, By Mouth, Daily at bedtime, # 30 capsule, 3 Refills, Maintenance, 06/10/22 14:20:00 EST, Capsule, [facility] #[id number], 165, cm, 05/25/22 14:24:00 EST, Height, 80, kg, 04/14/22 3:03:00 EST, Dry Weight Start Date: 06/10/22 Stop Date: 10/08/22 Status: Ordered fluticasone 50 mcg/inh nasal spray See Instructions, SHAKE LIQUID AND USE 1 SPRAY IN EACH NOSTRIL TWICE DAILY, # 15.8 mL, 3 Refills, 03/23/21 16:18:00 EST, [facility] #[id number], SHAKE LIQUID AND USE 1 SPRAY IN EACH NOSTRIL TWICE DAILY, 164, cm, 03/23/21 15:58:00 EST, Height, 86.... Start Date: 03/23/21 Status: Ordered gabapentin 600 mg oral tablet See Instructions, 1 tablet in the morning and 2 tablets at bedtime, # 90 tablet, 3 Refills, Maintenance, 06/10/22 14:20:00 EST, Tablet, [facility] #[id number], 165, cm, 05/25/22 14:24:00 EST, Height, 80, kg, 04/14/22 3:03:00 EST, Dry Weight Start Date: 06/10/22 Status: Ordered loperamide 2 mg oral capsule 2 mg, 1, capsule, By Mouth, Every 3 hours, PRN, # 30 capsule, Refills 0, Tot. Refills 0, Acute 04/19/23 11:43:00 EST, Loose Stool, 04/19/22 11:43:00 EST, Route to Pharmacy Electronically, [facility], Partial fill upon patient request if... Start Date: 04/19/22 Stop Date: 04/19/23 Status: Ordered LORazepam 1 mg oral tablet 1 tablet = 1 mg, By Mouth, 3 times a day, PRN as needed for anxiety, # 90 tablet, 3 Refills, Maintenance, 06/10/22 14:21:00 EST, Tablet, [facility] #[id number], Partial fill upon patient requestif the prescription is for a schedule II opioid elijah... Start Date: 06/10/22 Stop Date: 10/08/22 Status: Ordered multivitamin Multiple Vitamins oral tablet 1 tablet, By Mouth, Daily, # 30 tablet, 1 Refills, Maintenance, 10/01/19 11:23:00 EDT, Tablet, [facility], 1 tablet By Mouth Daily,x30 days, 165.1, cm, 10/01/19 8:37:00 EDT, Height, 80.1, kg, 09/19/19 16:30:00 EDT, Dry Weight Start Date: 10/01/19 Stop Date: 11/30/19 Status: Ordered Narcan 4 mg/0.1 mL nasal spray = 4 mg, Nares, Both, Once, # 2 each, 0 Refills, Soft Stop, 04/19/22 12:16:00 EST, [facility], Partial fill upon [...] Maintenance,06/10/22 14:21:00 EST, Route to Pharmacy Electronically, [facility] #[id number], 165, cm, 05/25/22 14:24:00 EST, Height, 80, kg, 04/14/22 3:03:00... Start Date: 06/10/22 Stop Date: 10/08/22 Status: Ordered traMADol 50 mg oral tablet 1 tablet = 50 mg, By Mouth, Every 8 hours, 30 each, TAKE 1 TABLET BY MOUTH EVERY 8 HOURS NEEDED FOR FOR PAIN, # 30 tablet, 2 Refills, Maintenance, 06/14/22 15:23:00 EST, Tablet, [facility] #[id number], Partial fill upon patient request if the... Start Date: 06/14/22 Status: Ordered traZODone 100 mg oral tablet 100 mg, 1, tablet, By Mouth, Daily at bedtime, TAKE 1 TABLET BY MOUTH EVERY NIGHT AT BEDTIME, # 30 tablet, Refills 3, Tot. Refills 3, Maintenance, 06/10/22 14:22:00 EST, Route to Pharmacy Electronically, [facility] #[id number], Partial fill upon... Start Date: 06/10/22 Stop [...] Team Personnel Name: Marissa Malik NP Position: [facility] Associate Professional Member Role: PCP Address: Address: [address] [place] [id number] [[email or web address]] Name: Elisa Lamar RN Position: [facility] RN Member Role: Primary Care Nurse Name: Zo Segal RN [facility] RN Member Role: Primary Care Nurse Name: Antonia Mtz RN Position: [facility] RN Member Role: Primary Care Nurse Name: Tiffany Ugalde RN Position: [facility] RN Member Role: Primary Care Nurse Name: Katelynn Moss RN Position: [facility] RN Member Role: Primary Care Nurse Name: Milla Emmanuel RN Position: [facility] RN Member Role: Primary Care Nurse Name: Carol Cordova Position: [facility] RN Member Role: Primary Care Nurse Name: Katt Gustafson Position: [facility] RN Member Role: Primary Care Nurse Name: Ashely Pacheco Position: [facility] RN Member Role: Primary Care Nurse Name: Miri Espitia RN Position: [facility] AMB Nurse Member Role: Primary Care Nurse Name: Maksim Hunt III, RN Position: [facility] RN Member Role: Primary Care Nurse Name: Elisa Fields RN Position: [facility] RN Member Role: Primary Care Nurse Name: Aron Mcginnis RN Position: [facility] ED RN W/OE and Tasks Member Role: Primary Care Nurse Name: Natalia Plata RN Position: [facility] RN Member Role: Primary Care Nurse Name: Kcay Barnhart RN Position: [facility] RN Member Role: Primary Care Nurse Name: Guerline Ramirez RN Position: [facility] RN Member Role: Primary Care Nurse Name: Ashlyn Cordova RN Position: [facility] Onco RN Member Role: Primary Care Nurse Name: Jennifer Ignacio RN Position: [facility] RN Member Role: Primary Care Nurse Care Team Related Persons Name: KORY NGO Address: home [address] [address] Name: TEVIN WILL Address: [address] [place] [address] Name: ALEX WILL Address: [address] [place] [address] Name: ALEX ROPER Address: [address] [place] [address]
--- OUTSIDE RECORDS SUMMARY | 2023-09-06 15:46 | XMS_ITS | Continuity of Care Document ---
Author Organization [facility] Primary [facility] [place] Address [address] [place] [address]- Care Team Providers Care Sanitation Engineer Name Role Phone Marissa Malik NP Primary Care Physician [phone] Encounter [facility] Date(s): 02/22/22 - 03/24/22 [facility] [address] [place], [place] [address] Allergies, Adverse Reactions, Alerts Substance [...] 03/15/22 11:53:00 EST, Route to Pharmacy Electronically, [facility] #[id number], 165, cm, 02/23/22 23:48:00 EDT, Height, 83, kg, 02/23/22 0:48:00 E... Start Date: 03/15/22 Stop Date: 07/13/22 Status: Ordered albuterol 90 mcg/inh inhalation powder 1-2 puffs, Inhalation, Every 4 hours, PRN Wheezing/Shortness of Breath, # 1 each, 0 Refills, Maintenance, 04/06/21 16:30:00 EST, Powder, [facility] #[id number], Partial fill upon patient requestif the prescription is for a schedule II opioid elijah... Start Date: 04/06/21 Status: Ordered Ativan 1 mg oral tablet 1.5 tablet = 1.5 mg, By Mouth, 2 times a day, for 30 days, # 90 tablet, 3 Refills, Hard Stop 07/13/22 11:52:00 EST, 03/15/22 11:52:00 EST, Tablet, [facility] #[id number], 165, cm, 02/23/22 23:48:00 EDT, Height, 83, kg, 02/23/22 0:48:00 EDT, Dry W... Start Date: 03/15/22 Stop Date: 07/13/22 Status: Ordered Creon 12,000 units oral delayed release capsule 2 capsule, By Mouth, 3 times a day, # 180 capsule, 6 Refills, Maintenance, 01/07/20 15:10:00 EDT, [facility] #[id number], 165, cm, 11/05/19 9:49:00 EDT, Height, 81.7, kg, 10/06/19 11:25:00 EDT, Dry Weight Start Date: 01/07/20 Status: Ordered doxepin 50 mg oral capsule 1 capsule = 50 mg, By Mouth, Daily at bedtime, # 30 capsule, 3 Refills, Maintenance, 03/15/22 11:53:00 EST, Capsule, [facility] #[id number], 165, cm, 02/23/22 23:48:00 EDT, Height, 83, [...] 15.8 mL, 3 Refills, 03/23/21 16:18:00 EST, [facility] #[id number], SHAKE LIQUID AND USE 1 SPRAY IN EACH NOSTRIL TWICE DAILY, 164, cm, 03/23/21 15:58:00 EST, Height, 86.... Start Date: 03/23/21 Status: Ordered gabapentin 600 mg oral tablet See Instructions, 1 tablet in the morning and 2 tablets at bedtime, # 90 tablet, 3 Refills, Maintenance, 03/15/22 11:52:00 EST, Tablet, [facility] #[id number], 165, cm, 02/23/22 23:48:00 EDT, Height, 83, kg, 02/23/22 0:48:00 EDT, Dry Weight Start Date: 03/15/22 Status: Ordered multivitamin Multiple Vitamins oral tablet 1 tablet, By Mouth, Daily, # 30 tablet, 1 Refills, Maintenance, 10/01/19 11:23:00 EDT, Tablet, [facility]-, 1 tablet By Mouth Daily,x30 [...] Maintenance,03/15/22 11:52:00 EST, Route to Pharmacy Electronically, [facility] #[id number], 165, cm, 02/23/22 23:48:00 EDT, Height, 83, kg, 02/23/22 0:48:00... Start Date: 03/15/22 Stop Date: 07/13/22 Status: Ordered traMADol 50 mg oral tablet 1 tablet = 50 mg, By Mouth, 3 times a day, PRN Pain , Severe, nex refill to be 50 mg BID, # 90 tablet, 0 Refills, Maintenance, 03/25/21 8:59:00 EST, Tablet, [facility] #[id number], 164, cm, 03/23/21 15:58:00 EST, Height, 86.5, kg, 04/22/20 21:53:... Start Date: 03/25/21 Status: Ordered Zoloft 100 mg oral tablet 2 tablet = 200 mg, By Mouth, Daily, # 60 tablet, 1 Refills, Maintenance, 03/15/22 11:52:00 EST, Tablet, [facility] #[id number], 165, cm, 02/23/22 23:48:00 EDT, Height, 83, [...] Care team information Care Team Personnel Name: Oswaldomitulfrancesca GALLEGOS Marissa Hernandez Position: [facility] PCO Associate Professional Member Role: PCP Address: Address: [address] [place] [address] [place] [address]- Name: Elisa aLmar RN Position: [facility] RN Member Role: Primary Care Nurse Name: Zo Segal RN Position: [facility] PCO RN Member Role: Primary Care Nurse Name: Katelynn Moss RN Position: [facility] RN Member Role: Primary Care Nurse Name: Milla Emmanuel RN Position: [facility] AMB Nurse Member Role: Primary Care Nurse Name: Carol Cordova Position: [facility] RN Member Role: Primary Care Nurse Name: Katt Gustafson Position: [facility] RN Member Role: Primary Care Nurse Name: Ashely Pacheco Position: [facility] RN Member Role: Primary Care Nurse Name: Miri Espitia RN Position: [facility] Nurse Member Role: Primary Care Nurse Name: Maksim Hunt III, RN Position: [facility] RN Member Role: Primary Care Nurse Name: Elisa Fields RN Position: [facility] RN Member Role: Primary Care Nurse Name: Aron Mcginnis RN Position: [facility] SN RN Member Role: Primary Care Nurse Name: Ashlyn Cordova RN Position: [facility] Onco RN Member Role: Primary Care Nurse Name: Jennifer Ignacio RN Position: [facility] RN Member Role: Primary Care Nurse Care Team Related Persons Name: KORY NGO Address: home [address] [address] Name: TEVIN WILL Address: home [address] [place] [address] Name: ALEX WILL Address: home [address] [place] [address] Name: ALEX ROPER Address: home [address] [place] [address]
--- OUTSIDE RECORDS SUMMARY | 2023-09-06 15:46 | XMS_ITS | Continuity of Care Document ---
Author Organization [facility] Address [address] [place] [address]- Care Team Providers Care Lamp Decorator Name Role Phone Marissa Malik NP Primary Care Physician [phone] Encounter [facility] Date(s): 05/25/22 - 06/24/22 [facility] [address] [place] [address]- Attending Physician: AdmGualberto woods Admitting Physician: Admtr, Gualberto Referring Physician: Admtr, Ar8 Allergies, Adverse Reactions, [...] 06/10/22 14:19:00 EST, Route to Pharmacy Electronically, [facility] #[id number], 165, cm, 05/25/22 14:24:00 EST, Height, 80, kg, 04/14/22 3:03:00 E... Start Date: 06/10/22 Stop Date: 10/08/22 Status: Ordered acamprosate 333 mg oral delayed release tablet 2 tablet = 666 mg, By Mouth, 3 times a day, # 180 tablet, 0 Refills, Maintenance, 04/19/22 12:37:00EST, CR Tablet, [facility] 3, Partial fill upon patient request if the prescription is for a schedule II opioid drug., 165, cm, 04/19/22 11... Start Date: 04/19/22 Stop Date: 05/19/22 Status: Ordered busPIRone 15 mg oral tablet 1 tablet = 15 mg, By Mouth, 3 times a day, # 90 tablet, 3 Refills, Maintenance, 06/10/22 14:24:00 EST, Tablet, [facility] #[id number], Partial fill upon patient request if the prescription is for a schedule II opioid drug., 165, cm, 05/25/22 14:2... Start Date: 06/10/22 Stop Date: 10/08/22 Status: Ordered Creon 36,000 units oral delayed release capsule 1 capsule, By Mouth, 3 times a day, # 90 capsule, 3 Refills, Maintenance, 06/08/22 9:09:00 EST, [facility] #[id number], Partial fill upon patient request if the prescription is for a schedule IIopioid drug., 1 capsule By Mouth 3 times a day, 165... Start Date: 06/08/22 Status: Ordered doxepin 50 mg oral capsule 1 capsule = 50 mg, By Mouth, Daily at bedtime, # 30 capsule, 3 Refills, Maintenance, 06/10/22 14:20:00 EST, Capsule, [facility] #[id number], 165, cm, 05/25/22 14:24:00 EST, Height, 80, kg, 04/14/22 3:03:00 EST, Dry Weight Start Date: 06/10/22 Stop Date: 10/08/22 Status: Ordered fluticasone 50 mcg/inh nasal spray See Instructions, SHAKE LIQUID AND USE 1 SPRAY IN EACH NOSTRIL TWICE DAILY, # 15.8 mL, 3 Refills, 03/23/21 16:18:00 EST, [facility] #[id number], SHAKE LIQUID AND USE 1 SPRAY IN EACH NOSTRIL TWICE DAILY, 164, cm, 03/23/21 15:58:00 EST, Height, 86.... Start Date: 03/23/21 Status: Ordered gabapentin 600 mg oral tablet See Instructions, 1 tablet in the morning and 2 tablets at bedtime, # 90 tablet, 3 Refills, Maintenance, 06/10/22 14:20:00 EST, Tablet, [facility] #[id number], 165, cm, 05/25/22 14:24:00 EST, Height, 80, kg, 04/14/22 3:03:00 EST, Dry Weight Start Date: 06/10/22 Status: Ordered loperamide 2 mg oral capsule 2 mg, 1, capsule, By Mouth, Every 3 hours, PRN, # 30 capsule, Refills 0, Tot. Refills 0, Acute 04/19/23 11:43:00 EST, Loose Stool, 04/19/22 11:43:00 EST, Route to Pharmacy Electronically, [facility] 3, Partial fill upon patient request if... Start Date: 04/19/22 Stop Date: 04/19/23 Status: Ordered LORazepam 1 mg oral tablet 1 tablet = 1 mg, By Mouth, 3 times a day, PRN as needed for anxiety, # 90 tablet, 3 Refills, Maintenance, 06/10/22 14:21:00 EST, Tablet, [facility] #[id number], Partial fill upon patient requestif the prescription is for a schedule II opioid elijah... Start Date: 06/10/22 Stop Date: 10/08/22 Status: Ordered multivitamin Multiple Vitamins oral tablet 1 tablet, By Mouth, Daily, # 30 tablet, 1 Refills, Maintenance, 10/01/19 11:23:00 EDT, Tablet, [facility], 1 tablet By Mouth Daily,x30 days, [...] Maintenance,06/10/22 14:21:00 EST, Route to Pharmacy Electronically, [facility] #[id number], 165, cm, 05/25/22 14:24:00 EST, Height, 80, kg, 04/14/22 3:03:00... Start Date: 06/10/22 Stop Date: 10/08/22 Status: Ordered traMADol 50 mg oral tablet 1 tablet = 50 mg, By Mouth, Every 8 hours, 30 each, TAKE 1 TABLET BY MOUTH EVERY 8 HOURS NEEDED FOR FOR PAIN, # 30 tablet, 2 Refills, Maintenance, 06/14/22 15:23:00 EST, Tablet, [facility] #[id number], Partial fill upon patient request if the... Start Date: 06/14/22 Status: Ordered traZODone 100 mg oral tablet 100 mg, 1, tablet, By Mouth, Daily at bedtime, TAKE 1 TABLET BY MOUTH EVERY NIGHT AT BEDTIME, # 30 tablet, Refills 3, Tot. Refills 3, Maintenance, 06/10/22 14:22:00 EST, Route to Pharmacy Electronically, [facility] #[id number], Partial fill upon... Start Date: 06/10/22 Stop [...] Team Personnel Name: Marissa Malik NP Position: [facility] PCO Associate Professional Member Role: PCP Address: Address: [address] [place] [address]- Name: Elisa Lamar RN Position: [facility] RN Member Role: Primary Care Nurse Name: Zo Sgeal RN Position: [facility] RN Member Role: Primary Care Nurse Name: Antonia Mtz RN Position: [facility] RN Member Role: Primary Care Nurse Name: Tiffany Ugalde RN Position: [facility] RN Member Role: Primary Care Nurse Name: Katelynn Moss RN Position: [facility] RN Member Role: Primary Care Nurse Name: Milla Emmanuel RN Position: [facility] AMB Nurse Member Role: Primary Care Nurse Name: Carol Cordova Position: [facility] RN Member Role: Primary Care Nurse Name: Katt Gustafson Position: [facility] RN Member Role: Primary Care Nurse Name: Ashely Pacheco Position: [facility] RN Member Role: Primary Care Nurse Name: Miri Espitia RN Position: [facility] AMB Nurse Member Role: Primary Care Nurse Name: Maksim Hunt III, RN Position: [facility] RN Member Role: Primary Care Nurse Name: Elisa Fields RN Position: [facility] RN Member Role: Primary Care Nurse Name: Aron Mcginnis RN Position: [facility] SN RN Member Role: Primary Care Nurse Name: Natalia Plata RN Position: [facility] RN Member Role: Primary Care Nurse Name: Kacy Barnhart RN Position: [facility] RN Member Role: Primary Care Nurse Name: Guerline Ramirez RN Position: [facility] RN Member Role: Primary Care Nurse Name: Ashlyn Cordova RN Position: [facility] Onco RN Member Role: Primary Care Nurse Name: Jennifer Ignacio RN Position: [facility] RN Member Role: Primary Care Nurse Care Team Related Persons Name: KORY NGO Address: home [address] [address] Name: TEVIN WILL Address: home [address] [place] [address] Name: ALEX WILL Address: home [address] [place] [address] Name: ALEX ROPER Address: home [address] [place] [address]
--- OUTSIDE RECORDS SUMMARY | 2023-09-06 15:47 | XMS_ITS | Continuity of Care Document ---
Author Organization [facility] [place] Address [address] [place] [address]- Care Team Providers Care Automobile Rental Agent Name Role Phone Marissa Malik NP Primary Care Physician Encounter [facility] Date(s): 11/10/22 - 12/10/22 [facility] [address] [place], [place] [address] Allergies, Adverse Reactions, Alerts [...] 11/15/22 14:23:00 EDT, Route to Pharmacy Electronically, [facility] #[id number], 165, cm, 11/10/22 10:56:00 EDT, Height, 79, kg, 11/10/22 10:56:00... Start Date: 11/15/22 Stop Date: 03/15/23 Status: Ordered acamprosate 333 mg oral delayed release tablet 2 tablet = 666 mg, By Mouth, 3 times a day, # 180 tablet, 0 Refills, Maintenance, 04/19/22 12:37:00EST, CR Tablet, [facility], Partial fill upon patient request if the prescription is for a schedule II opioid drug., 165, cm, 04/19/22 11... Start Date: 04/19/22 Stop Date: 05/19/22 Status: Ordered busPIRone 15 mg oral tablet 1 tablet = 15 mg, By Mouth, 3 times a day, # 90 tablet, 3 Refills, Maintenance, 11/15/22 14:23:00 EDT, Tablet, [facility] #[id number], Partial fill upon patient request if the prescription is for a schedule II opioid drug., 165, cm, 11/10/22 10:5... Start Date: 11/15/22 Stop Date: 03/15/23 Status: Ordered Creon 36,000 units oral delayed release capsule 1 capsule, By Mouth, 3 times a day, # 90 capsule, 3 Refills, Maintenance, 06/08/22 9:09:00 EST, [facility] #[id number], Partial fill upon patient request if the prescription is for a schedule IIopioid drug., 1 capsule By Mouth 3 times a day, 165... Start Date: 06/08/22 Status: Ordered doxepin 50 mg oral capsule 1 capsule = 50 mg, By Mouth, Daily at bedtime, # 30 capsule, 3 Refills, Maintenance, 11/15/22 14:23:00 EDT, Capsule, [facility] #[id number], 165, cm, 11/10/22 10:56:00 EDT, Height, 79, kg, 11/10/22 10:56:00 EDT, Dry Weight Start Date: 11/15/22 Stop Date: 03/15/23 Status: Ordered gabapentin 600 mg oral tablet See Instructions, 1 tablet in the morning and 2 tablets at bedtime, # 90 tablet, 3 Refills, Maintenance, 11/15/22 14:24:00 EDT, Tablet, [facility] #[id number], 165, cm, 11/10/22 10:56:00 EDT, Height, 79, kg, 11/10/22 10:56:00 EDT, Dry Weight Start Date: 11/15/22 Status: Ordered LORazepam 1 mg oral tablet 1 tablet = 1 mg, By Mouth, 3 times a day, PRN as needed for anxiety, # 90 tablet, 3 Refills, Maintenance, 11/15/22 14:24:00 EDT, Tablet, [facility] #[id number], Partial fill upon patient requestif the prescription is for a schedule II opioid elijah... Start Date: 11/15/22 Stop Date: 03/15/23 Status: Ordered multivitamin Multiple Vitamins oral tablet 1 tablet, By Mouth, Daily, # 30 tablet, 1 Refills, Maintenance, 10/01/19 11:23:00 EDT, Tablet, [facility], 1 tablet By Mouth Daily,x30 [...] Maintenance,11/15/22 14:24:00 EDT, Route to Pharmacy Electronically, [facility] #[id number], 165, cm, 11/10/22 10:56:00 EDT, Height, 79, kg, 11/10/22 10:56:00... Start Date: 11/15/22 Stop Date: 02/13/23 Status: Ordered traZODone 100 mg oral tablet 100 mg, 1, tablet, By Mouth, Daily at bedtime, TAKE 1 TABLET BY MOUTH EVERY NIGHT AT BEDTIME, # 30 tablet, Refills 3, Tot. Refills 3, Maintenance, 11/15/22 14:24:00 EDT, Route to Pharmacy Electronically, [facility] #[id number], Partial fill upon... Start Date: 11/15/22 Stop Date: 03/15/23 Status: Ordered valACYclovir 500 mg oral tablet 500 mg, 1, tablet, By Mouth, 2 times a day, # 6 tablet, Refills 1, Tot. Refills 1, Maintenance, 11/10/22 11:16:00 EDT, Route to Pharmacy Electronically, [facility] #[id number], Partial fill uponpatient request if the prescription [...] Professional Member Role: PCP Address: Address: [address] [place] [address]- Name: Elisa Lamar RN Position: [facility] RN Member Role: Primary Care Nurse Name: Zo Segal RN Position: [facility] AMB Nurse Member Role: Primary Care Nurse Name: Antonia Mtz RN Position: [facility] RN Member Role: Primary Care Nurse Name: Milla Emmanuel RN Position: [facility] SN RN Member Role: Primary Care Nurse Name: Carol Min [place] Position: [facility] RN Member [...] Name: KORY NGO Address: home [address] [address] Name: TEVIN WILL Address: home [address] [place] [address] Name: ALEX WILL Address: home [address] [place] [address] Name: ALEX ROPER Address: home [address] [place] [address]
--- OUTSIDE RECORDS SUMMARY | 2023-09-06 15:47 | XMS_ITS | Continuity of Care Document ---
Author Organization [facility] [place] Address [address] [place] [address]- Care Team Providers Care Folder Seamer Automatic Name Role Phone Marissa Malik NP Primary Care Physician [phone] Encounter [facility] Date(s): 07/28/22 - 08/27/22 [facility] [place] [address] [place], [place] [address] Allergies, Adverse Reactions, Alerts Substance Reaction Severity [...] 08/16/22 13:06:00 EDT, Route to Pharmacy Electronically, [facility] #[id number], 165, cm, 07/19/22 13:50:00 EDT, Height, 77.5, kg, 07/19/22 13:50:0... Start Date: 08/16/22 Stop Date: 12/14/22 Status: Ordered acamprosate 333 mg oral delayed release tablet 2 tablet = 666 mg, By Mouth, 3 times a day, # 180 tablet, 0 Refills, Maintenance, 04/19/22 12:37:00EST, CR Tablet, [facility], Partial fill upon patient request if the prescription is for a schedule II opioid drug., 165, cm, 04/19/22 11... Start Date: 04/19/22 Stop Date: 05/19/22 Status: Ordered busPIRone 15 mg oral tablet 1 tablet = 15 mg, By Mouth, 3 times a day, # 90 tablet, 3 Refills, Maintenance, 08/16/22 13:06:00 EDT, Tablet, [facility] #[id number], Partial fill upon patient request if the prescription is for a schedule II opioid drug., 165, cm, 07/19/22 13:5... Start Date: 08/16/22 Stop Date: 12/14/22 Status: Ordered Creon 36,000 units oral delayed release capsule 1 capsule, By Mouth, 3 times a day, # 90 capsule, 3 Refills, Maintenance, 06/08/22 9:09:[id number], Partial fill upon patient request if the prescription is for a schedule IIopioid drug., 1 capsule By Mouth 3 times a day, 165... Start Date: 06/08/22 Status: Ordered doxepin 50 mg oral capsule 1 capsule = 50 mg, By Mouth, Daily at bedtime, # 30 capsule, 3 Refills, Maintenance, 08/16/22 13:06:00 EDT, Capsule, [facility] #[id number], 165, cm, 07/19/22 13:50:00 EDT, Height, 77.5, kg, 07/19/22 13:50:00 EDT, Dry Weight Start Date: 08/16/22 Stop Date: 12/14/22 Status: Ordered fluticasone 50 mcg/inh nasal spray See Instructions, SHAKE LIQUID AND USE 1 SPRAY IN EACH NOSTRIL TWICE DAILY, # 15.8 mL, 3 Refills, 03/23/21 16:18:[id number], SHAKE LIQUID AND USE 1 SPRAY IN EACH NOSTRIL TWICE DAILY, 164, cm, 03/23/21 15:58:00 EST, Height, 86.... Start Date: 03/23/21 Status: Ordered gabapentin 600 mg oral tablet See Instructions, 1 tablet in the morning and 2 tablets at bedtime, # 90 tablet, 3 Refills, Maintenance, 08/16/22 13:07:00 EDT, Tablet, [facility] #[id number], 165, cm, 07/19/22 13:50:00 EDT, Height, 77.5, kg, 07/19/22 13:50:00 EDT, Dry Weight Start Date: 08/16/22 Status: Ordered HYDROmorphone 2 mg oral tablet 1 tablet = 2 mg, By Mouth, Every 6 hours, PRN as needed for pain, # 8 tablet, 0 Refills, Maintenance, 07/19/22 18:31:00 EDT, Tablet, [facility] #[id number], Partial fill upon patient request if the prescription is for a schedule II opioid drug.,... Start Date: 07/19/22 Status: Ordered loperamide 2 mg oral capsule 2 mg, 1, capsule, By Mouth, Every 3 hours, PRN, # 30 capsule, Refills 0, Tot. Refills 0, Acute 04/19/23 11:43:00 EST, Loose Stool, 04/19/22 11:43:00 EST, Route to Pharmacy Electronically, [place] [id number], Partial fill upon patient request if... Start Date: 04/19/22 Stop Date: 04/19/23 Status: Ordered LORazepam 1 mg oral tablet 1 tablet = 1 mg, By Mouth, 3 times a day, PRN as needed for anxiety, # 90 tablet, 3 Refills, Maintenance, 08/16/22 13:07:00 EDT, Tablet, [facility] #[id number], Partial fill upon patient requestif the prescription is for a schedule II opioid elijah... Start Date: 08/16/22 Stop Date: 12/14/22 Status: Ordered multivitamin Multiple Vitamins oral tablet 1 tablet, By Mouth, Daily, # 30 tablet, 1 Refills, Maintenance, 10/01/19 11:23:00 EDT, Tablet, [facility]-, 1 tablet By Mouth Daily,x30 days, 165.1, cm, 10/01/19 8:37:00 EDT, Height, 80.1, kg, 09/19/19 16:30:00 EDT, Dry Weight Start Date: 10/01/19 Stop Date: 11/30/19 Status: Ordered Narcan 4 mg/0.1 mL nasal spray = 4 mg, Nares, Both, Once, # 2 each, 0 Refills, Soft Stop, 04/19/22 12:16:00 EST, [facility], Partial fill upon patient request if [...] Maintenance,08/16/22 13:07:00 EDT, Route to Pharmacy Electronically, [facility] #[id number], 165, cm, 07/19/22 13:50:00 EDT, Height, 77.5, kg, 07/19/22 13:50:... Start Date: 08/16/22 Stop Date: 12/14/22 Status: Ordered traMADol 50 mg oral tablet 1 tablet = 50 mg, By Mouth, Every 8 hours, 30 each, TAKE 1 TABLET BY MOUTH EVERY 8 HOURS NEEDED FOR FOR PAIN, # 30 tablet, 1 Refills, Maintenance, 08/16/22 15:31:00 EDT, Tablet, [facility] #[id number], Partial fill upon patient request if the... Start Date: 08/16/22 Status: Ordered traZODone 100 mg oral tablet 100 mg, 1, tablet, By Mouth, Daily at bedtime, TAKE 1 TABLET BY MOUTH EVERY NIGHT AT BEDTIME, # 30 tablet, Refills 3, Tot. Refills 3, Maintenance, 08/16/22 13:07:00 EDT, [id number], Partial fill upon... Start Date: 08/16/22 Stop [...] Team Personnel Name: Marissa Malik [facility] Professional Member Role: PCP Address: Address: [address] [place] [address] [place], [place] [address] Name: Elisa Lamar RN Position: [facility] RN Member Role: Primary Care Nurse Name: Zo Segal RN Position: [facility] PCO RN Member Role: Primary Care Nurse Name: Antonia Mtz RN Position: [facility] RN Member Role: Primary Care Nurse Name: Tiffany Ugalde RN Position: [facility] RN Member Role: Primary Care Nurse Name: Katelynn Moss RN Position: [facility] RN Member Role: Primary Care Nurse Name: Milla Emmanuel RN Position: [facility] SN RN Member Role: Primary Care Nurse Name: Carol Cordova Position: [facility] RN Member Role: Primary Care Nurse Name: Katt Gustafson Position: [facility] RN Member Role: Primary Care Nurse Name: Ashely Pacheco Position: [facility] RN Member Role: Primary Care Nurse Name: Miri Espitia RN Position: [facility] AMB Nurse Member Role: Primary Care Nurse Name: Maksim Hunt III, RN Position: [facility] RN Member Role: Primary Care Nurse Name: Elisa Fields RN Position: [facility] RN Member Role: Primary Care Nurse Name: Aron Mcginnis RN Position: [facility] SN RN Member Role: Primary Care Nurse Name: Natalia Plata RN Position: [facility] RN Member Role: Primary Care Nurse Name: Kacy Barnhart RN Position: [facility] RN Member Role: Primary Care Nurse Name: Guerline Ramirez RN Position: [facility] RN Member Role: Primary Care Nurse Name: Ashlyn Cordova RN Position: [facility] Onco RN Member Role: Primary Care Nurse Name: Jennifer Ignacio RN Position: [facility] RN Member Role: Primary Care Nurse Care Team Related Persons Name: KORY NGO Address: home [address] [address] Name: TEVIN WILL Address: home [address] [place] [address] Name: ALEX WILL Address: [address] [place] [address] Name: ALEX ROPER Address: [address] [place] [address]
--- OUTSIDE RECORDS SUMMARY | 2023-09-06 15:47 | XMS_ITS | Continuity of Care Document ---
Author Organization [facility] Primary Car e [place] Address [address] [place] [address]- Care Team Providers Care Helicopter Engineer Name Role Phone Marissa Malik NP Primary Care Physician Encounter [facility] Date(s): 02/17/23 - 05/26/23 [facility] [address], [place] [address] Attending Physician: Tejinder Bates MD Allergies, Adverse Reactions, Alerts Substance Reaction [...] 02/03/23 13:42:00 EDT, Route to Pharmacy Electronically, [facility] #[id number], 166, cm, 12/16/22 17:39:00 EDT, Height, 77, kg, 12/12/22 16:21:00... Start Date: 02/03/23 Stop Date: 08/02/23 Status: Ordered Albuterol (Eqv-ProAir HFA) 90 mcg/inh inhalation aerosol 2 puffs, Inhalation, Every 6 hours, # 8.5 Gm, 0 Refills, Maintenance, 02/17/23 18:07:00 EDT, [facility] #[id number], Partial fill upon patient request if the [...] 1 Refills, Maintenance, 02/03/23 13:43:00 EDT, Tablet, [facility] #[id number], Partial fill upon patient request if the prescription is for a schedule II opioid drug., 166, cm, 12/16/22 17:... Start Date: 02/03/23 Stop Date: 08/02/23 Status: Ordered Creon 36,000 units oral delayed release capsule 1 capsule, By Mouth, 3 times a day, # 90 capsule, 3 Refills, Maintenance, 06/08/22 9:09:00 EST, [facility] #[id number], Partial fill upon patient request if the prescription is for a schedule IIopioid drug., 1 capsule By Mouth 3 times a day, 165... Start Date: 06/08/22 Status: Ordered doxepin 50 mg oral capsule 1 capsule = 50 mg, By Mouth, Daily at bedtime, # 90 capsule, 1 Refills, Maintenance, 02/03/23 13:43:00 EDT, Capsule, [facility] #[id number], 166, cm, 12/16/22 17:39:00 EDT, Height, 77, kg, 12/12/22 16:21:00 EDT, Dry Weight Start Date: 02/03/23 Stop Date: 08/02/23 Status: Ordered gabapentin 600 mg oral tablet See Instructions, 1 tablet in the morning and 2 tablets at bedtime, # 270 tablet, 1 Refills, Maintenance, 02/03/23 13:43:00 EDT, Tablet, [facility] #[id number], 90 day supply, 166, cm, 12/16/22 17:39:00 [...] Maintenance,02/03/23 13:43:00 EDT, Route to Pharmacy Electronically, [facility] #[id number], Partial fill upon patient request if the prescription is for a sc... Start Date: 02/03/23 Stop Date: 08/02/23 Status: Ordered LORazepam 1 mg oral tablet 1 tablet = 1 mg, By Mouth, 2 times a day, PRN as needed for anxiety, # 60 tablet, 1 Refills, Maintenance, 04/28/23 13:31:00 EST, Tablet, [facility] #[id number], Partial fill upon patient requestif the prescription [...] 1 Refills, Maintenance, 10/01/19 11:23:00 EDT, Tablet, [facility]-, 1 tablet By Mouth Daily,x30 [...] Maintenance,02/03/23 13:47:00 EDT, Route to Pharmacy Electronically, [facility] #[id number], 166, cm, 12/16/22 17:39:00 EDT, Height, 77, kg, 12/12/22 16:21:00... Start Date: 02/03/23 Stop Date: 08/02/23 Status: Ordered traZODone 100 mg oral tablet 100 mg, 1, tablet, By Mouth, Daily at bedtime, TAKE 1 TABLET BY MOUTH EVERY NIGHT AT BEDTIME, # 90 tablet, Refills 1, Tot. Refills 1, Maintenance, 02/03/23 13:46:00 EDT, Route to Pharmacy Electronically, [facility] #[id number], Partial fill upon... Start Date: 02/03/23 Stop Date: 08/02/23 Status: Ordered Wellbutrin XL 150 mg/24 hours oral tablet, extended release 1 tablet = 150 mg, By Mouth, Every 24 hours, # 90 tablet, 1 Refills, Maintenance, 02/03/23 13:43:00EDT, XL Tablet, [facility] #[id number], Partial fill upon patient request if the [...] Team Personnel Name: Marissa Malik NP Position: [facility] PCO Associate Professional Member Role: PCP Address: Address: [address] [place] [id number] Name: Elisa Lamar RN Position: [facility] RN Member Role: Primary Care Nurse Name: Zo Segal RN Position: [facility] Nurse Member Role: Primary Care Nurse Name: Antonia Mtz RN Position: [facility] RN Member Role: Primary Care Nurse Name: Milla Emmanuel RN Position: [facility] RN Member Role: Primary Care Nurse Name: Carol Min [place] Position: [facility] RN Member Role: Primary Care Nurse Name: Katt Gustafson Position: [facility] RN Member Role: Primary Care Nurse Name: Ashely Pacheco Position: [facility] RN Member Role: Primary Care Nurse Name: Miri Espitia RN Position: [facility] Nurse Member Role: Primary Care Nurse Name: Maksim Hunt III, RN Position: [facility] RN Member Role: Primary Care Nurse Name: Elisa Fields RN Position: [facility] RN Member Role: Primary Care Nurse Name: Aron Mcginnis RN Position: [facility] RN Member Role: Primary Care Nurse Name: Natalia Plata RN Position: [facility] RN Member Role: Primary Care Nurse Name: Kacy Barnhart RN Position: [facility] RN Member Role: Primary Care Nurse Name: Guerline Ramirez RN Position: [facility] RN Member Role: Primary Care Nurse Name: Ashlyn Cordova RN Position: [facility] Onco RN Member Role: Primary Care Nurse Name: Jennifer Ignacio RN Position: [facility] RN Member Role: Primary Care Nurse Care Team Related Persons Name: KORY NGO Address: home [address] [address] Name: TEVIN WILL Address: home [address] [place] [address] Name: ALEX WILL Address: home [address] [place] [address] Name: ALEX ROPER Address: home [address] [place] [address]
--- OUTSIDE RECORDS SUMMARY | 2023-09-06 15:47 | XMS_ITS | Continuity of Care Document ---
Author Organization [facility] Primary Car e [place] Address [address] [place] [address]- Care Team Providers Care Aircraft Fueler Name Role Phone Helena GALLEGOS, Marissa Hernandez Primary Care Physician [phone] Encounter [facility] Date(s): 12/28/22 - 01/27/23 [facility] [place] [address] [place], [place] [address] Allergies, Adverse Reactions, Alerts Substance Reaction [...] 11/15/22 14:23:00 EDT, Route to Pharmacy Electronically, [facility] #[id number], 165, cm, 11/10/22 10:56:00 EDT, Height, 79, kg, 11/10/22 10:56:00... Start Date: 11/15/22 Stop Date: 03/15/23 Status: Ordered acamprosate 333 mg oral delayed release tablet 2 tablet = 666 mg, By Mouth, 3 times a day, # 180 tablet, 0 Refills, Maintenance, 04/19/22 12:37:00EST, CR Tablet, [facility], Partial fill upon patient request if the prescription is for a schedule II opioid drug., 165, cm, 04/19/22 11... Start Date: 04/19/22 Stop Date: 05/19/22 Status: Ordered busPIRone 15 mg oral tablet 1 tablet = 15 mg, By Mouth, 3 times a day, # 90 tablet, 3 Refills, Maintenance, 11/15/22 14:23:00 EDT, Tablet, [facility] #[id number], Partial fill upon patient request if the prescription is for a schedule II opioid drug., 165, cm, 11/10/22 10:5... Start Date: 11/15/22 Stop Date: 03/15/23 Status: Ordered Creon 36,000 units oral delayed release capsule 1 capsule, By Mouth, 3 times a day, # 90 capsule, 3 Refills, Maintenance, 06/08/22 9:09:00 EST, [facility] #[id number], Partial fill upon patient request if the prescription is for a schedule IIopioid drug., 1 capsule By Mouth 3 times a day, 165... Start Date: 06/08/22 Status: Ordered doxepin 50 mg oral capsule 1 capsule = 50 mg, By Mouth, Daily at bedtime, # 30 capsule, 3 Refills, Maintenance, 11/15/22 14:23:00 EDT, Capsule, [facility] #[id number], 165, cm, 11/10/22 10:56:00 EDT, Height, 79, kg, 11/10/22 10:56:00 EDT, Dry Weight Start Date: 11/15/22 Stop Date: 03/15/23 Status: Ordered gabapentin 600 mg oral tablet See Instructions, 1 tablet in the morning and 2 tablets at bedtime, # 90 tablet, 3 Refills, Maintenance, 11/15/22 14:24:00 EDT, Tablet, [facility] #[id number], 165, cm, 11/10/22 10:56:00 EDT, Height, 79, kg, 11/10/22 10:56:00 EDT, Dry Weight Start Date: 11/15/22 Status: Ordered lamotrigine 25 mg oral tablet 25 mg, 1, tablet, By Mouth, Daily at bedtime, # 30 tablet, Refills 0, Tot. Refills 0, Maintenance, 01/17/23 15:31:00 EDT, Route to Pharmacy Electronically, [facility] #[id number], Partial fill upon patient request if the prescription is for a maral... Start Date: 01/17/23 Stop Date: 02/16/23 Status: Ordered LORazepam 1 mg oral tablet 1 tablet = 1 mg, By Mouth, 3 times a day, PRN as needed for anxiety, # 90 tablet, 3 Refills, Maintenance, 11/15/22 14:24:00 EDT, Tablet, [facility] #[id number], Partial fill upon patient requestif the prescription is for a schedule II opioid elijah... Start Date: 11/15/22 Stop Date: 03/15/23 Status: Ordered multivitamin Multiple Vitamins oral tablet 1 tablet, By Mouth, Daily, # 30 tablet, 1 Refills, Maintenance, 10/01/19 11:23:00 EDT, Tablet, [facility], 1 tablet By Mouth Daily,x30 [...] Maintenance,11/15/22 14:24:00 EDT, Route to Pharmacy Electronically, [facility] #[id number], 165, cm, 11/10/22 10:56:00 EDT, Height, 79, kg, 11/10/22 10:56:00... Start Date: 11/15/22 Stop Date: 02/13/23 Status: Ordered traZODone 100 mg oral tablet 100 mg, 1, tablet, By Mouth, Daily at bedtime, TAKE 1 TABLET BY MOUTH EVERY NIGHT AT BEDTIME, # 30 tablet, Refills 3, Tot. Refills 3, Maintenance, 11/15/22 14:24:00 EDT, Route to Pharmacy Electronically, [facility] #[id number], Partial fill upon... Start Date: 11/15/22 Stop Date: 03/15/23 Status: Ordered valACYclovir 500 mg oral tablet 500 mg, 1, tablet, By Mouth, 2 times a day, # 6 tablet, Refills 1, Tot. Refills 1, Maintenance, 11/10/22 11:16:00 EDT, Route to Pharmacy Electronically, [facility] #[id number], Partial fill uponpatient request if the prescription is for a schedu... Start Date: 11/10/22 Stop Date: 11/16/22 Status: Ordered Wellbutrin XL 150 mg/24 hours oral tablet, extended release 1 tablet = 150 mg, By Mouth, Every 24 hours, # 30 tablet, 0 Refills, Maintenance, 01/17/23 15:32:00EDT, XL Tablet, [facility] #[id number], Partial fill upon patient request if the [...] Personnel Name: Helena GALLEGOS Marissa M Position: [facility] PCO Associate Professional Member Role: PCP Address: Address: [address] [place] [id number] Name: Elisa Lamar RN Position: [facility] RN Member Role: Primary Care Nurse Name: Zo Segal RN Position: [facility] AMB Nurse Member Role: Primary Care Nurse Name: Antonia Mtz RN Position: [facility] RN Member Role: Primary Care Nurse Name: Milla Emmanuel RN Position: [facility] RN Member Role: Primary Care Nurse Name: Carol Min [place] Position: [facility] RN Member Role: Primary Care Nurse Name: Katt Gustafson Position: [facility] RN Member Role: Primary Care [...] Mcginnis RN Position: [facility] SN RN Member Role: Primary [...] Persons Name: KORY NGO Address: home [address] [address] Name: TEVIN WILL Address: home [address] [place] [address] Name: ALEX WILL Address: home [address] [place] [address] Name: JUDSON, ALEX Address: home [address] [place] [address]
--- OUTSIDE RECORDS SUMMARY | 2023-09-06 15:48 | XMS_ITS | Continuity of Care Document ---
Author Organization [facility] Primary [facility] [place] Address [address] [place] [address]- Care Team Providers Care Inclinometer Tester Name Role Phone Marissa Malik NP Primary Care Physician [phone] Encounter [facility] Date(s): 07/27/22 - 08/26/22 [facility] [place] [address] [place], [place] [address] Allergies, Adverse Reactions, [...] 08/16/22 13:06:00 EDT, Route to Pharmacy Electronically, [facility] #[id number], 165, cm, 07/19/22 13:50:00 EDT, Height, 77.5, kg, 07/19/22 13:50:0... Start Date: 08/16/22 Stop Date: 12/14/22 Status: Ordered acamprosate 333 mg oral delayed release tablet 2 tablet = 666 mg, By Mouth, 3 times a day, # 180 tablet, 0 Refills, Maintenance, 04/19/22 12:37:00EST, CR Tablet, [facility], Partial fill upon patient request if the prescription is for a schedule II opioid drug., 165, cm, 04/19/22 11... Start Date: 04/19/22 Stop Date: 05/19/22 Status: Ordered busPIRone 15 mg oral tablet 1 tablet = 15 mg, By Mouth, 3 times a day, # 90 tablet, 3 Refills, Maintenance, 08/16/22 13:06:00 EDT, Tablet, [facility] #[id number], Partial fill upon patient request if the prescription is for a schedule II opioid drug., 165, cm, 07/19/22 13:5... Start Date: 08/16/22 Stop Date: 12/14/22 Status: Ordered Creon 36,000 units oral delayed release capsule 1 capsule, By Mouth, 3 times a day, # 90 capsule, 3 Refills, Maintenance, 06/08/22 9:09:00 [facility][id number], Partial fill upon patient request if the prescription is for a schedule IIopioid drug., 1 capsule By Mouth 3 times a day, 165... Start Date: 06/08/22 Status: Ordered doxepin 50 mg oral capsule 1 capsule = 50 mg, By Mouth, Daily at bedtime, # 30 capsule, 3 Refills, Maintenance, 08/16/22 13:06:00 EDT, Capsule, [facility] #[id number], 165, cm, 07/19/22 13:50:00 EDT, Height, 77.5, kg, 07/19/22 13:50:00 EDT, Dry Weight Start Date: 08/16/22 Stop Date: 12/14/22 Status: Ordered fluticasone 50 mcg/inh nasal spray See Instructions, SHAKE LIQUID AND USE 1 SPRAY IN EACH NOSTRIL TWICE DAILY, # 15.8 mL, 3 Refills, 03/23/21 16:18:[id number], SHAKE LIQUID AND USE 1 SPRAY IN EACH NOSTRIL TWICE DAILY, 164, cm, 03/23/21 15:58:00 EST, Height, 86.... Start Date: 03/23/21 Status: Ordered gabapentin 600 mg oral tablet See Instructions, 1 tablet in the morning and 2 tablets at bedtime, # 90 tablet, 3 Refills, Maintenance, 08/16/22 13:07:00 EDT, Tablet, [facility] #[id number], 165, cm, 07/19/22 13:50:00 EDT, Height, 77.5, kg, 07/19/22 13:50:00 EDT, Dry Weight Start Date: 08/16/22 Status: Ordered HYDROmorphone 2 mg oral tablet 1 tablet = 2 mg, By Mouth, Every 6 hours, PRN as needed for pain, # 8 tablet, 0 Refills, Maintenance, 07/19/22 18:31:00 EDT, Tablet, [facility] #[id number], Partial fill upon patient request if the prescription is for a schedule II opioid drug.,... Start Date: 07/19/22 Status: Ordered loperamide 2 mg oral capsule 2 mg, 1, capsule, By Mouth, Every 3 hours, PRN, # 30 capsule, Refills 0, Tot. Refills 0, Acute 04/19/23 11:43:00 EST, [place]ool, 04/19/22 11:43:00 EST, Route to Pharmacy Electronically, [place] [id number], Partial fill upon patient request if... Start Date: 04/19/22 Stop Date: 04/19/23 Status: Ordered LORazepam 1 mg oral tablet 1 tablet = 1 mg, By Mouth, 3 times a day, PRN as needed for anxiety, # 90 tablet, 3 Refills, Maintenance, 08/16/22 13:07:00 EDT, Tablet, [facility] #[id number], Partial fill upon patient requestif the prescription is for a schedule II opioid elijah... Start Date: 08/16/22 Stop Date: 12/14/22 Status: Ordered multivitamin Multiple Vitamins oral tablet 1 tablet, By Mouth, Daily, # 30 tablet, 1 Refills, Maintenance, 10/01/19 11:23:00 EDT, Tablet, [facility]-, 1 tablet By Mouth Daily,x30 days, 165.1, cm, 10/01/19 8:37:00 EDT, Height, 80.1, kg, 09/19/19 16:30:00 EDT, Dry Weight Start Date: 10/01/19 Stop Date: 11/30/19 Status: Ordered Narcan 4 mg/0.1 mL nasal spray = 4 mg, Nares, Both, Once, # 2 each, 0 Refills, Soft Stop, 04/19/22 12:16:00 EST, [facility], Partial fill upon [...] Maintenance,08/16/22 13:07:00 EDT, Route to Pharmacy Electronically, [facility] #[id number], 165, cm, 07/19/22 13:50:00 EDT, Height, 77.5, kg, 07/19/22 13:50:... Start Date: 08/16/22 Stop Date: 12/14/22 Status: Ordered traMADol 50 mg oral tablet 1 tablet = 50 mg, By Mouth, Every 8 hours, 30 each, TAKE 1 TABLET BY MOUTH EVERY 8 HOURS NEEDED FOR FOR PAIN, # 30 tablet, 1 Refills, Maintenance, 08/16/22 15:31:00 EDT, Tablet, [facility] #[id number], Partial fill upon patient request if the... Start Date: 08/16/22 Status: Ordered traZODone 100 mg oral tablet 100 mg, 1, tablet, By Mouth, Daily at bedtime, TAKE 1 TABLET BY MOUTH EVERY NIGHT AT BEDTIME, # 30 tablet, Refills 3, Tot. Refills 3, Maintenance, 08/16/22 13:07:00 EDT, [id number], Partial fill upon... Start Date: 08/16/22 Stop [...] Team Personnel Name: Marissa Malik NP Position[facility] Associate Professional Member Role: PCP Address: Address: [address] [place] [address] Care [place], [place] [address] Name: Elisa Lamar [...] Milla Emmanuel RN Position: [facility] SN RN Member Role: Primary Care Nurse Name: Carol Cordova Position: [facility] RN Member Role: Primary Care Nurse Name: Katt Gustafson Position: [facility] RN Member Role: Primary Care [...] Persons Name: KORY NGO Address: home [address] [address] Name: TEVIN WILL Address: home [address] [place] [address] Name: ALEX WILL Address: home [address] [place] [address] Name: ALEX ROPER Address: home [address] [place] [address]
--- OUTSIDE RECORDS SUMMARY | 2023-09-06 15:48 | XMS_ITS | Continuity of Care Document ---
Author Organization [facility] Address [address] [place] [address]- Care Team Providers Care High School Coach Name Role Phone Marissa Malik NP Primary Care Physician [id number] Date(s): 07/27/22 - 10/16/22 [facility] [facility] [address] [place], [place] [address] Attending Physician: Marissa Malik NP Allergies, Adverse Reactions, [...] 08/16/22 13:06:00 EDT, Route to Pharmacy Electronically, [facility] #[id number], 165, cm, 07/19/22 13:50:00 EDT, Height, 77.5, kg, 07/19/22 13:50:0... Start Date: 08/16/22 Stop Date: 12/14/22 Status: Ordered acamprosate 333 mg oral delayed release tablet 2 tablet = 666 mg, By Mouth, 3 times a day, # 180 tablet, 0 Refills, Maintenance, 04/19/22 12:37:00EST, CR Tablet, [facility] 3, Partial fill upon patient request if the prescription is for a schedule II opioid drug., 165, cm, 04/19/22 11... Start Date: 04/19/22 Stop Date: 05/19/22 Status: Ordered busPIRone 15 mg oral tablet 1 tablet = 15 mg, By Mouth, 3 times a day, # 90 tablet, 3 Refills, Maintenance, 08/16/22 13:06:00 EDT, Tablet, [facility] #[id number], Partial fill upon patient request if the prescription is for a schedule II opioid drug., 165, cm, 07/19/22 13:5... Start Date: 08/16/22 Stop Date: 12/14/22 Status: Ordered Creon 36,000 units oral delayed release capsule 1 capsule, By Mouth, 3 times a day, # 90 capsule, 3 Refills, Maintenance, 06/08/22 9:09:00 EST, [facility] #[id number], Partial fill upon patient request if the prescription is for a schedule IIopioid drug., 1 capsule By Mouth 3 times a day, 165... Start Date: 06/08/22 Status: Ordered doxepin 50 mg oral capsule 1 capsule = 50 mg, By Mouth, Daily at bedtime, # 30 capsule, 3 Refills, Maintenance, 08/16/22 13:06:00 EDT, Capsule, [facility] #[id number], 165, cm, 07/19/22 13:50:00 EDT, Height, 77.5, kg, 07/19/22 13:50:00 EDT, Dry Weight Start Date: 08/16/22 Stop Date: 12/14/22 Status: Ordered fluticasone 50 mcg/inh nasal spray See Instructions, SHAKE LIQUID AND USE 1 SPRAY IN EACH NOSTRIL TWICE DAILY, # 15.8 mL, 3 Refills, 03/23/21 16:18:00 EST, [facility] #[id number], SHAKE LIQUID AND USE 1 SPRAY IN EACH NOSTRIL TWICE DAILY, 164, cm, 03/23/21 15:58:00 EST, Height, 86.... Start Date: 03/23/21 Status: Ordered gabapentin 600 mg oral tablet See Instructions, 1 tablet in the morning and 2 tablets at bedtime, # 90 tablet, 3 Refills, Maintenance, 08/16/22 13:07:00 EDT, Tablet, [facility] #[id number], 165, cm, 07/19/22 13:50:00 EDT, Height, 77.5, kg, 07/19/22 13:50:00 EDT, Dry Weight Start Date: 08/16/22 Status: Ordered HYDROmorphone 2 mg oral tablet 1 tablet = 2 mg, By Mouth, Every 6 hours, PRN as needed for pain, # 8 tablet, 0 Refills, Maintenance, 07/19/22 18:31:00 EDT, Tablet, [facility] #[id number], Partial fill upon patient request if the prescription is for a schedule II opioid drug.,... Start Date: 07/19/22 Status: Ordered loperamide 2 mg oral capsule 2 mg, 1, capsule, By Mouth, Every 3 hours, PRN, # 30 capsule, Refills 0, Tot. Refills 0, Acute 04/19/23 11:43:00 EST, Loose Stool, 04/19/22 11:43:00 EST, Route to Pharmacy Electronically, [facility] 3, Partial fill upon patient request if... Start Date: 04/19/22 Stop Date: 04/19/23 Status: Ordered LORazepam 1 mg oral tablet 1 tablet = 1 mg, By Mouth, 3 times a day, PRN as needed for anxiety, # 90 tablet, 3 Refills, Maintenance, 08/16/22 13:07:00 EDT, Tablet, [facility] #[id number], Partial fill upon patient requestif the prescription is for a schedule II opioid elijah... Start Date: 08/16/22 Stop Date: 12/14/22 Status: Ordered multivitamin Multiple Vitamins oral tablet 1 tablet, By Mouth, Daily, # 30 tablet, 1 Refills, Maintenance, 10/01/19 11:23:00 EDT, Tablet, [facility]-, 1 tablet By Mouth Daily,x30 days, 165.1, cm, 10/01/19 8:37:00 EDT, Height, 80.1, kg, 09/19/19 16:30:00 EDT, Dry Weight Start Date: 10/01/19 Stop Date: 11/30/19 Status: Ordered Narcan 4 mg/0.1 mL nasal spray = 4 mg, Nares, Both, Once, # 2 each, 0 Refills, Soft Stop, 04/19/22 12:16:00 EST, [facility] 3, Partial fill upon [...] Maintenance,08/16/22 13:07:00 EDT, Route to Pharmacy Electronically, [facility] #[id number], 165, cm, 07/19/22 13:50:00 EDT, Height, 77.5, kg, 07/19/22 13:50:... Start Date: 08/16/22 Stop Date: 12/14/22 Status: Ordered traMADol 50 mg oral tablet 1 tablet = 50 mg, By Mouth, Every 8 hours, 30 each, TAKE 1 TABLET BY MOUTH EVERY 8 HOURS NEEDED FOR FOR PAIN, # 30 tablet, 0 Refills, Maintenance, 09/02/22 8:19:00 EDT, Tablet, [facility] #[id number], Partial fill upon patient request if the p... Start Date: 09/02/22 Status: Ordered traZODone 100 mg oral tablet 100 mg, 1, tablet, By Mouth, Daily at bedtime, TAKE 1 TABLET BY MOUTH EVERY NIGHT AT BEDTIME, # 30 tablet, Refills 3, Tot. Refills 3, Maintenance, 08/16/22 13:07:00 EDT, Route to Pharmacy Electronically, [facility] #[id number], Partial fill upon... Start Date: 08/16/22 Stop [...] Team Personnel Name: Marissa Malik NP Position: [facility] PCO Associate Professional Member Role: PCP Address: Address: [address] [place] [address] [place], [place] [address] Name: Elisa Lamar RN Position: [facility] RN Member Role: Primary Care Nurse Name: Zo Segal RN Position: [facility] MAGO Nurse Member Role: Primary Care Nurse Name: Antonia Mtz RN Position: [facility] RN Member Role: Primary Care Nurse Name: Tiffany Ugalde RN Position: [facility] RN Member Role: Primary Care Nurse Name: Katelynn Moss RN Position: [facility] RN Member Role: Primary Care Nurse Name: Milla Emmanuel RN Position: [facility] SN RN Member Role: Primary Care Nurse Name: Carol Min [place] Position: [facility] RN Member Role: Primary Care Nurse Name: Katt Gustafson Position: [facility] RN Member Role: Primary Care Nurse Name: Ashely Pacheco Position: [facility] RN Member Role: Primary Care Nurse Name: Miri Espitia RN Position: [facility] AMB Nurse Member Role: Primary Care Nurse Name: Maksim Hunt III, RN Position: [facility] RN Member Role: Primary Care Nurse Name: Elisa Fields RN Position: [facility] RN Member Role: Primary Care Nurse Name: Aron Mcginnis RN Position: [facility] SN RN Member Role: Primary Care Nurse Name: Natalia Plata RN Position: [facility] RN Member Role: Primary Care Nurse Name: Kacy Barnhart RN Position: [facility] RN Member Role: Primary Care Nurse Name: Guerline Ramirez RN Position: [facility] RN Member Role: Primary Care Nurse Name: Ashlyn Cordova RN Position: [facility] Onco RN Member Role: Primary Care Nurse Name: Jennifer Ignacio RN Position: [facility] RN Member Role: Primary Care Nurse Care Team Related Persons Name: KORY NGO Address: home [address] [address] Name: TEVIN WILL Address: home [address] [place] [address] Name: ALEX WILL Address: home [address] [place] [address] Name: ALEX ROPER Address: home [address] [place] [address]
--- OUTSIDE RECORDS SUMMARY | 2023-09-06 15:48 | XMS_ITS | Continuity of Care Document ---
Author Organization [facility] Address [address] [place] [address]- Care Team Providers Care Diesel Retrofit Designer Name Role Phone Helena GALLEGOS, Marissa Hernandez Primary Care Physician Encounter [facility] Date(s): 05/03/22 - 06/02/22 [facility] Care [facility] [address] [place], [place] [address] Allergies, Adverse Reactions, Alerts Substance Reaction [...] 03/15/22 11:53:00 EST, Route to Pharmacy Electronically, [facility] #[id number], 165, cm, 02/23/22 23:48:00 EDT, Height, 83, kg, 02/23/22 0:48:00 E... Start Date: 03/15/22 Stop Date: 07/13/22 Status: Ordered acamprosate 333 mg oral delayed release tablet 2 tablet = 666 mg, By Mouth, 3 times a day, # 180 tablet, 0 Refills, Maintenance, 04/19/22 12:37:00EST, CR Tablet, [facility], Partial fill upon patient request if the prescription is for a schedule II opioid drug., 165, cm, 04/19/22 11... Start Date: 04/19/22 Stop Date: 05/19/22 Status: Ordered Creon 36,000 units oral delayed release capsule 1 capsule, By Mouth, 3 times a day, # 90 capsule, 0 Refills, Maintenance, 05/06/22 14:15:00 EST, [facility] #[id number], Partial fill upon patient request if the prescription is for a schedule II opioid drug., 1 capsule By Mouth 3 times a day, 16... Start Date: 05/06/22 Status: Ordered doxepin 50 mg oral capsule 1 capsule = 50 mg, By Mouth, Daily at bedtime, # 30 capsule, 3 Refills, Maintenance, 03/15/22 11:53:00 EST, Capsule, [facility] #[id number], 165, cm, 02/23/22 23:48:00 EDT, Height, 83, kg, 02/23/22 0:48:00 EDT, Dry Weight Start Date: 03/15/22 Stop Date: 07/13/22 Status: Ordered fluticasone 50 mcg/inh nasal spray See Instructions, SHAKE LIQUID AND USE 1 SPRAY IN EACH NOSTRIL TWICE DAILY, # 15.8 mL, 3 Refills, 03/23/21 16:18:00 EST, [facility] #[id number], SHAKE LIQUID AND USE 1 SPRAY IN EACH NOSTRIL TWICE DAILY, 164, cm, 03/23/21 15:58:00 EST, Height, 86.... Start Date: 03/23/21 Status: Ordered gabapentin 600 mg oral tablet See Instructions, 1 tablet in the morning and 2 tablets at bedtime, # 90 tablet, 3 Refills, Maintenance, 03/15/22 11:52:00 EST, Tablet, [facility] #[id number], 165, cm, 02/23/22 23:48:00 EDT, Height, 83, kg, 02/23/22 0:48:00 EDT, Dry Weight Start Date: 03/15/22 Status: Ordered loperamide 2 mg oral capsule 2 mg, 1, capsule, By Mouth, Every 3 hours, PRN, # 30 capsule, Refills 0, Tot. Refills 0, Acute 04/19/23 11:43:00 EST, Loose Stool, 04/19/22 11:43:00 EST, Route to Pharmacy Electronically, [facility], Partial fill upon [...] 1 Refills, Maintenance, 10/01/19 11:23:00 EDT, Tablet, [facility]-, 1 tablet By Mouth Daily,x30 days, 165.1, cm, 10/01/19 8:37:00 EDT, Height, 80.1, kg, 09/19/19 16:30:00 EDT, Dry Weight Start Date: 10/01/19 Stop Date: 11/30/19 Status: Ordered Narcan 4 mg/0.1 mL nasal spray = 4 mg, Nares, Both, Once, # 2 each, 0 Refills, Soft Stop, 04/19/22 12:16:00 EST, [facility], Partial fill [...] Maintenance,05/30/22 9:45:00 EST, Route to Pharmacy Electronically, [facility] #[id number], 165, cm, 05/25/22 14:24:00 EST, Height, 80, kg, 04/14/22 3:03:00 E... Start Date: 05/30/22 Stop Date: 06/29/22 Status: Ordered prazosin 5 mg oral capsule 5 mg, 1, capsule, By Mouth, Daily at bedtime, for 30 days, # 30 capsule, Refills 3, Tot. Refills 3,Hard Stop 07/13/22 11:52:00 EST, 03/15/22 11:52:00 EST, Route to Pharmacy Electronically, [facility] #[id number], 165, cm, 02/23/22 23:48:00 EDT,... Start Date: 03/15/22 Stop Date: 07/13/22 Status: Ordered traMADol 50 mg oral tablet 1 tablet = 50 mg, By Mouth, Every 8 hours, 30 each, TAKE 1 TABLET BY MOUTH EVERY 8 HOURS NEEDED FOR FOR PAIN, # 30 tablet, 2 Refills, Maintenance, 05/26/22 8:00:00 EST, Tablet, [facility] #[id number], Partial fill upon patient request if the p... Start Date: 05/26/22 Status: Ordered traZODone 100 mg oral tablet TAKE 1 TABLET BY MOUTH EVERY NIGHT AT BEDTIME Start Date: 04/14/22 Status: Ordered Zoloft 100 mg oral tablet 2 tablet = 200 mg, By Mouth, Daily, # 60 tablet, 1 Refills, Maintenance, 03/15/22 11:52:00 EST, Tablet, [facility] #[id number], 165, cm, 02/23/22 23:48:00 EDT, Height, 83, [...] NP Position: [facility] PCO Associate Professional Member Role: PCP Address: Address: [address] [place] [address] Name: Elisa Lamar RN Position: [facility] RN Member Role: Primary Care Nurse Name: Zo Segal RN Position: [facility] RN Member Role: Primary Care Nurse Name: Antonia Mtz RN Position: [facility] RN Member Role: Primary Care Nurse Name: Tiffany Ugalde RN Position: [facility] RN Member Role: Primary Care Nurse Name: Katelynn Moss RN Position: [facility] RN Member Role: Primary Care Nurse Name: Milla Emmanuel RN Position: [facility] AMB Nurse Member Role: Primary Care Nurse Name: Carol Cordova Position: [facility] RN Member Role: Primary Care Nurse Name: Katt Gustafson Position: [facility] RN Member Role: Primary Care Nurse Name: Ashely Pacheco Position: [facility] RN Member Role: Primary Care Nurse Name: Miri Espitia RN Position: [facility] AMB Nurse Member Role: Primary Care Nurse Name: Maksim Hunt III, RN Position: [facility] RN Member Role: Primary Care Nurse Name: Elisa Fields RN Position: [facility] RN Member Role: Primary Care Nurse Name: Aron Mcginnis RN Position: [facility] SN RN Member Role: Primary Care Nurse Name: Natalia Plata RN Position: [facility] RN Member Role: Primary Care Nurse Name: Kacy Barnhart RN Position: [facility] RN Member Role: Primary Care Nurse Name: Guerline Ramirez RN Position: [facility] RN Member Role: Primary Care Nurse Name: Ashlyn Cordova RN Position: [facility] Onco RN Member Role: Primary Care Nurse Name: Jennifer Ignacio RN Position: [facility] RN Member Role: Primary Care Nurse Care Team Related Persons Name: TATIANNA NGOOg Address: home [address] [address] Name: TEVIN WILL Address: [address] [place] [address] Name: ALEX WILL Address: [address] [place] [address] Name: ALEX ROPER Address: [address] [place] [address]
--- OUTSIDE RECORDS SUMMARY | 2023-09-06 15:48 | XMS_ITS | Continuity of Care Document ---
Author Organization [facility] Address [address] [place] [address]- Care Team Providers Care Outside Energy Sales Representatives Name Role Phone Helena GALLEGOS, Marissa Hernandez Primary Care Physician Encounter [facility] Date(s): 03/31/23 - 04/03/[address] [address]- Encounter Diagnosis Abdominal pain, epigastric(Final) - 04/01/23 [facility] Attending Physician: Ganga BUTTERFIELD, Sanjuanita Zaldivar Admitting Physician: Sanjuanita Schuler MD Referring Physician: Fanny BUTTERFIELD, Matt Lee Allergies, Adverse Reactions, Alerts Substance Reaction Severity [...] 02/03/23 13:42:00 EDT, Route to Pharmacy Electronically, [facility] #[id number], 166, cm, 12/16/22 17:39:00 EDT, Height, 77, kg, 12/12/22 16:21:00... Start Date: 02/03/23 Stop Date: 08/02/23 Status: Ordered Albuterol (Eqv-ProAir HFA) 90 mcg/inh inhalation aerosol 2 puffs, Inhalation, Every 6 hours, # 8.5 Gm, 0 Refills, Maintenance, 02/17/23 18:07:00 EDT, [facility] #[id number], Partial fill upon patient request if the prescription is for a schedule II opioid drug., 2 puffs Inhalation Every 6 hours, 166, c... Start Date: 02/17/23 Status: Ordered busPIRone 15 mg oral tablet 1 tablet = 15 mg, By Mouth, 3 times a day, # 270 tablet, 1 Refills, Maintenance, 02/03/23 13:43:00 EDT, Tablet, [facility] #[id number], Partial fill upon patient request if the prescription is for a schedule II opioid drug., 166, cm, 12/16/22 17:... Start Date: 02/03/23 Stop Date: 08/02/23 Status: Ordered Creon 36,000 units oral delayed release capsule 1 capsule, By Mouth, 3 times a day, # 90 capsule, 3 Refills, Maintenance, 06/08/22 9:09:00 EST, [facility] #[id number], Partial fill upon patient request if the prescription is for a schedule IIopioid drug., 1 capsule By Mouth 3 times a day, 165... Start Date: 06/08/22 Status: Ordered Dilaudid 2 mg oral tablet 2 mg, Tablet, By Mouth, Hold if no pain or patient sleep, 04/03/23 9:00:00 EST Start Date: 04/03/23 Stop Date: 04/03/23 Status: Completed doxepin 50 mg oral capsule 1 capsule = 50 mg, By Mouth, Daily at bedtime, # 90 capsule, 1 Refills, Maintenance, 02/03/23 13:43:00 EDT, Capsule, [facility] #[id number], 166, cm, 12/16/22 17:39:00 EDT, Height, 77, kg, 12/12/22 16:21:00 EDT, Dry Weight Start Date: 02/03/23 Stop Date: 08/02/23 Status: Ordered gabapentin 300 mg oral capsule 600 mg, Capsule, By Mouth, 04/03/23 9:00:00 EST Start Date: 04/03/23 Stop Date: 04/03/23 Status: Completed gabapentin 600 mg oral tablet See Instructions, 1 tablet in the morning and 2 tablets at bedtime, # 270 tablet, 1 Refills, Maintenance, 02/03/23 13:43:00 EDT, Tablet, [facility] #[id number], 90 day supply, 166, cm, 12/16/22 17:39:00 EDT, Height, 77, kg, 12/12/22 16:21:00 EDT,... Start Date: 02/03/23 Status: Ordered HYDROmorphone 2 mg oral tablet See Instructions, PRN as needed for pain, 1 tablet By Mouth Every 6 hours x1 day, 1 tablet every 8 hour for 1 day, 1 tablet every 12 for 1 day, 1 tablet daily for 1 day. then stop., # 10 tablet, 0 Refills, Acute 04/07/23 8:54:00 EST, 04/03/23 8:53:00... Start Date: 04/03/23 Stop Date: 04/07/23 Status: Ordered lamotrigine 25 mg oral tablet 75 mg, 3, tablet, By Mouth, Daily at bedtime, # 270 tablet, Refills 1, Tot. Refills 1, Maintenance,02/03/23 13:43:00 EDT, Route to Pharmacy Electronically, [facility] #[id number], Partial fill upon patient request if the prescription is for a sc... Start Date: 02/03/23 Stop Date: 08/02/23 Status: Ordered LORazepam 1 mg oral tablet 1 tablet = 1 mg, By Mouth, 3 times a day, PRN as needed for anxiety, # 90 tablet, 3 Refills, Maintenance, 02/03/23 13:44:00 EDT, Tablet, [facility] #[id number], Partial fill upon patient requestif the prescription is for a schedule II opioid elijah... Start Date: 02/03/23 Stop Date: 06/03/23 Status: Ordered multivitamin Multiple Vitamins oral tablet 1 tablet, By Mouth, Daily, # 30 tablet, 1 Refills, Maintenance, 10/01/19 11:23:00 EDT, Tablet, [facility], 1 tablet By Mouth Daily,x30 days, [...] Maintenance,02/03/23 13:47:00 EDT, Route to Pharmacy Electronically, [facility] #[id number], 166, cm, 12/16/22 17:39:00 EDT, Height, 77, kg, 12/12/22 16:21:00... Start Date: 02/03/23 Stop Date: 08/02/23 Status: Ordered prazosin 5 mg oral capsule 5 mg, Capsule, By Mouth, 04/02/23 21:00:00 EST Start Date: 04/02/23 Stop Date: 04/02/23 Status: Completed traZODone 100 mg oral tablet 100 mg, 1, tablet, By Mouth, Daily at bedtime, TAKE 1 TABLET BY MOUTH EVERY NIGHT AT BEDTIME, # 90 tablet, Refills 1, Tot. Refills 1, Maintenance, 02/03/23 13:46:00 EDT, Route to Pharmacy Electronically, [facility] #[id number], Partial fill upon... Start Date: 02/03/23 Stop Date: 08/02/23 Status: Ordered Wellbutrin XL 150 mg/24 hours oral tablet, extended release 1 tablet = 150 mg, By Mouth, Every 24 hours, # 90 tablet, 1 Refills, Maintenance, 02/03/23 13:43:00EDT, XL Tablet, [facility] #[id number], Partial fill upon patient request if the [...] Range]: 1 2 3 Height 165 cm (04/02/23 9:15 PM) 165 cm (04/02/23 6:23 AM) 165 cm (04/01/23 8:42 PM) Weight 77.5 kg (04/02/23 9:15 PM) 77.5 kg (04/02/23 6:23 AM) 77.5 kg (04/01/23 8:42 PM) Oxygen Saturation [94-100 %] 100 % (04/03/23 10:00 AM) 100 % (04/03/23 6:24 AM) 98 % (04/02/23 9:15 PM) Pulse Rate [55-90 bpm] 113 bpm *H* (04/03/23 10:00 AM) 97 bpm *H* (04/03/23 6:24 AM) 88 bpm (04/02/23 9:15 PM) Body Mass Index [18.5-24.99 kg/m2] 28.47 kg/m2 *H* (04/02/23 9:15 PM) 28.47 kg/m2 *H* (04/02/23 6:23 AM) 28.47 kg/m2 *H* (04/01/23 8:42 PM) Blood Pressure [90-138/55-84 mm Hg] 90/75mm Hg (04/03/23 10:00 AM) 106/81mm Hg (04/03/23 6:24 AM) 106/75mm Hg (04/02/23 10:00 PM) Respiratory Rate [16-30 br/min] 18 br/min (04/03/23 10:51 AM) 18 br/min (04/03/23 10:49 AM) 18 br/min (04/03/23 6:24 AM) Temperature [96.8-100.4 DegF] 97.4 DegF (04/03/23 6:24 AM) 97.7 DegF (04/02/23 9:15 PM) 97.9 DegF (04/02/23 6:19 PM) Mode of Delivery (Oxygen) Room air (04/03/23 6:24 AM) Room air (04/02/23 9:15 PM) Room air (04/02/23 6:19 PM) Blood pressure sites Arm, left (04/03/23 6:24 AM) Arm, left (04/02/23 9:15 PM) Arm, left (04/02/23 6:19 PM) Temperature Route Oral (04/03/23 6:24 AM) Oral (04/02/23 9:15 PM) Oral (04/02/23 6:19 PM) Dry Weight 77.5 kg (04/02/23 9:15 PM) 77.5 kg (04/02/23 6:23 AM) 77.5 kg (04/01/23 8:42 PM) Weight Obtained Via Patient/family state d (03/31/23 2:34 AM) Dry Weight Obtained Via Patient lift chapman ging scale (03/31/23 2:34 AM) Social History Social History Type Response Smoking Status Current every day sm oker; Tobacco user in household: Yes entered on: 05/01/14 Sex History and physical note * Ganga BUTTERFIELD, Sanjuanita Zaldivar: PERFORM Event Display: History and Physical Hospital Authored Date: Patient: ??SIMA ROPER ? Age:??42 Years?Sex:??Female?:??1980?? Chief Complaint/Reason for Consultation AMS, woke up on floor, daily drinker History of Present Illness This is a 42 years old female with history of PTSD, depression, anxiety disorder,??benzodiazepine addiction, and??heavy??alcohol??use.?? Patient's last drink is approximate 24 hours ago. ??She woke up this morning, found??herself on the floor, suspect having seizure, called 911 and was subsequently??brought to [facility] ER for evaluation.?? Upon arrival, she is awake alert, follow command. ??She complained of severe epigastric pain radiating to her right flank area. ??She received IV Dilaudid.?? She had?? nausea vomiting, subsequently subsided after receiving??antiemetics.?? Initially plan to have her discharge home however patient made,??that she plan to overdose on her psychiatric medi cations and complained persistent??epigastric pain associate with nausea vomiting.?Crisis team was activated.?Due to ongoing depression, suicidal ideation,??high risk for alcohol withdrawal, decision was made to admit his hospital for further evaluation. Review of Systems Possible seizure event Chronic abdominal pain, intermittent nausea vomiting No fever No weight loss No jaundice No chest pain No shortness of breath Severe depression, suicidal ideation Patient denies dysuria Chronic depression,??PTSD, depression Chronic daily??heavy drinking Objective Measurements?? Height: 165 cm (03/31/23) Weight: 77.5 kg (03/31/23) Dry Weight: 77.5 kg (03/31/23) Body Mass Index:??28.47 kg/m2??High (03/31/23) ? Vital Signs?? Temperature: 98.1 DegF (03/31/23 03:13:00) Temperature Route: Oral (03/31/23 03:13:00) Pulse Rate: 63 bpm (03/31/23 12:45:00) Respiratory Rate: 18 br/min (03/31/23 12:45:00) Systolic Blood Pressure: 126 mm Hg (03/31/23 12:45:00) Diastolic Blood Pressure: 83 mm Hg (03/31/23 12:45:00) Blood pressure sites: Arm, left (03/31/23 12:45:00) Mean Arterial Pressure: 97 mm Hg (03/31/23 12:45:00) Pulse Pressure: 43 mm Hg (03/31/23 12:45:00) Oxygen Saturation: 95 % (03/31/23 12:45:00) Mode of Delivery (Oxygen): Room air (03/31/23 12:45:00) ? Physical Exam ?Gen; no acute respiratory distress, cooperating with exam,??young female,??slightly pale, pleasant, interactive ?HEENT; no facial asymmetry, no jaundice ?Lungs; CATB ?Cardiac; RRR, no M/R/G ?Abdomen; soft nondistended, normal bowel sounds.?Mild epigastric tenderness,??no guarding no rebound ?Extremity; no edema ?Neuro exam; alert oriented x3, CN 2-12 normal ?Mood;??appropriate ?Skin;??no rash ?Musculoskeletal;??no acute finding Assessment/Plan Diagnoses Alcohol withdrawal seizure ??(F10.939) Major depressive disorder, recurrent episode, moderate degree ??(F33.1) Mood disorder ??(F39) Pancreatitis, chronic ??(K86.1) Post traumatic stress disorder (PTSD) ??(F43.10) Severe alcohol dependence ??(F10.20) ?? Assessment:??This is a 42 years old??female with history of heavy alcohol use,??pre-existing psychiatric illness including depression anxiety, mood disorder, PTSD, chronic pancreatitis. Patient is hospitalized for??recurrent abdominal pain, nausea vomiting, suicidal ideation and probable seizure events. ?? Alcohol withdrawal seizure (F10.939):??: ?? Severe alcohol dependence (F10.20):??Patient is known for heavy alcohol use, self-reported a??probable seizure event??prior to hospitalization.??Last drink 24 hours ago. Plan CIWA??monitor Symptom triggered Ativan treatment Fixed dose diazepam??5 mg 3 times daily Monitor electrolytes Multivitamin, thiamine, folic acid? Major depressive disorder, recurrent episode, moderate degree (F33.1):??: ?? Post traumatic stress disorder (PTSD) (F43.10):??: ?? Mood disorder (F39):??Self-reported suicidal ideation., Followed??by??[facility]mental health team.??Patient has not been??taking medication consistently. Plan?? one-to-one supervision for suicidal ideation Psychiatry consultation Resume gabapentin ?? Pancreatitis, chronic (K86.1):??Known for chronic pancreatitis. COntinue IV hydromorphone 1 mg every 4 hours as needed, low-fat diet, Reglan??IV for control nausea vomiting ?? VTE Prophylaxis:??Low risk, patient is ambulatory ?? Code Status:??Full code ?Order Code Status:??Code Status Ordered ?? Ongoing Medical Necessity:??Alcohol withdrawal, alcohol withdrawal seizure, chronic pancreatitis ?? Tobacco Use Treatment:??Patient has not smoked for the last 2 weeks. She declined nicotine patch ?? Discharge Planning:??Psychiatric treatment ? CPT 36046;??total preparation time 70 minutes was time spent at the bedside??and on the unit, time spent coordinating care with ER physician (consulting physician), review of the record, diagnostic as well as patient education This documentation was prepared using the [employer] voice recognition system. Please forgive any typographical, punctuation or contextual errors.? Histories Allergies Allergies ?(Active and Proposed Allergies Only) ibuprofen? (Severity: Unknown severity, Onset: Unknown) acetaminophen? (Severity: Unknown severity, Onset: Unknown) Bee Stings? (Severity: Unknown severity, Onset: Unknown) Pollen? (Severity: Unknown severity, Onset: Unknown) ? Past Medical History/Problem List Active Problems??(27) Abdominal pain, epigastric Abnormal uterine bleeding Acute pancreatitis Alcohol dependence Alcohol dependence in early, early partial, sustained full, or sustained partial remission Alcohol use disorder, severe, in early remission, in controlled environment, dependence Alcohol withdrawal-induced seizure Alcoholic hepatitis Alcoholic liver disease Attempted suicide - hanging Chronic low back pain Cold sore Depression Encounter for preventive health examination Endometriosis [...] of breast Mat. Grandmother: Emphysema; Osteoporosis ? Travel History Travel Outside [facility] [place]: No ?? Medications Home Medications Albuterol (Albuterol (Eqv-ProAir HFA) 90 mcg/inh inhalation aerosol)?2?puff(s)?Inhalation?Every 6 hours Aripiprazole (Abilify 10 mg oral tablet)?10?Milligram?1?tablet?By Mouth?Daily at bedtime?for 90?Days Azithromycin (Zithromax 250 mg oral tablet)?1?pack/packet?By Mouth?Once BuPROpion (Wellbutrin XL 150 mg/24 hours oral tablet, extended release)?1?tab(s)?150?Milligram?By Mouth?Every 24 hours?for 90?Days BusPIRone (busPIRone 15 mg oral tablet)?1?tab(s)?15?Milligram?By Mouth?3 times a day?for 90?Days Doxepin (doxepin 50 mg oral capsule)?1?capsule?50?Milligram?By Mouth?Daily at bedtime?for 90?Days Gabapentin (gabapentin 600 mg oral tablet)?See Instructions?1 tablet in the morning and 2 tablets at bedtime Lamotrigine (lamotrigine 25 mg oral tablet)?75?Milligram?3?tablet?By Mouth?Daily at bedtime?for 90?Days Lorazepam (LORazepam 1 mg oral tablet)?1?tab(s)?1?Milligram?By Mouth?3 times a day?as needed?as needed for anxiety?for 30?Days Multivitamin (multivitamin Multiple Vitamins oral tablet)?1?tab(s)?By Mouth?Daily?for 30?Days Pancrelipase (Creon 36,000 units oral delayed release capsule)?1?capsule?By Mouth?3 times a day Pantoprazole (pantoprazole 40 mg oral delayed release tablet)?1?tab(s)?By Mouth?Daily Prazosin (prazosin 5 mg oral capsule)?5?Milligram?1?capsule?By Mouth?Daily at bedtime?for 90?Days Trazodone (traZODone 100 mg oral tablet)?100?Milligram?1?tablet?By Mouth?Daily atbedtime?for 90?Days?TAKE 1 TABLET BY MOUTH EVERY NIGHT AT BEDTIME ? Results Recent Labs BLOOD COUNT & DIFF WBC 4.0 k/mm3 ()?? 03/31/2023 02:26 RBC 4.12 m/mm3 (Low)?? 03/31/2023 02:26 Hgb 13.9 Gm/dL ()?? 03/31/2023 02:26 Hct 40.6 % ()?? 03/31/2023 02:26 MCV 98.5 femtoliters ()?? 03/31/2023 02:26 MCH 33.7 pg ()?? 03/31/2023 02:26 MCHC 34.2 g/dL ()?? 03/31/2023 02:26 Platelet Count 163 k/mm3 ()?? 03/31/2023 02:26 RDW-SD 56.6 femtoliters (High)?? 03/31/2023 02:26 MPV 9.1 femtoliters (Low)?? 03/31/2023 02:26 Nucleated RBC (Automated) 0.0 #/100 WBC'S ()?? 03/31/2023 02:26 Abs. NRBC 0.0 k/mm3 ()?? 03/31/2023 02:26 Abs. Neut 3.0 k/mm3 ()?? 03/31/2023 02:26 Abs. Lymph 0.7 k/mm3 (Low)?? 03/31/2023 02:26 Abs. [place] 0.3 k/mm3 (Low)?? 03/31/2023 02:26 Abs. Eo 0.0 k/mm3 ()?? 03/31/2023 02:26 Abs. Baso 0.0 k/mm3 ()?? 03/31/2023 02:26 Neut % 73.6 % ()?? 03/31/2023 02:26 Lymph % 18.0 % ()?? 03/31/2023 02:26 [place] % 7.8 % ()?? 03/31/2023 02:26 Eos % 0.0 % ()?? 03/31/2023 02:26 Baso % 0.3 % ()?? 03/31/2023 02:26 Imm Gran 0.3 % ()?? 03/31/2023 02:26 Abs. Imm Gran 0.0 k/mm3 ()?? 03/31/2023 02:26 ?? CHEM GENERAL Sodium 141 mmol/L ()?? 03/31/2023 02:26 Potassium 3.9 mmol/L ()?? 03/31/2023 02:26 Chloride 101 mmol/L ()?? 03/31/2023 02:26 Bicarbonate Level 25 mmol/L ()?? 03/31/2023 02:26 Anion Gap 15 ()?? 03/31/2023 02:26 Glucose Level 144 mg/dL (High)?? 03/31/2023 02:26 BUN 6 mg/dL ()?? 03/31/2023 02:26 Creatinine-Blood 0.5 mg/dL ()?? 03/31/2023 02:26 Estimated GFR Creatinine 119 ML/MIN/1.73 M2 ()?? 03/31/2023 02:26 Calcium 8.4 mg/dL (Low)?? 03/31/2023 02:26 Protein, Total 6.6 Gm/dL ()?? 03/31/2023 02:26 Albumin 3.7 Gm/dL ()?? 03/31/2023 02:26 AG Ratio 1.3 ()?? 03/31/2023 02:26 Alkaline Phosphatase 109 units/L (High)?? 03/31/2023 02:26 Lipase 31 units/L ()?? 03/31/2023 02:26 AST (SGOT) 74 units/L (High)?? 03/31/2023 02:26 ALT (SGPT) 39 units/L (High)?? 03/31/2023 02:26 Bilirubin, Total 0.3 mg/dL ()?? 03/31/2023 02:26 ?? ENDOCRINE/TUMOR MARKER Beta HCG-serum, Qual NEGATIVE ()?? 03/31/2023 02:26 ?? HEME OTHER Hold Blue Top SPECIMEN DISCARDED AFTER 4 HOURS. ()?? 03/31/2023 02:26 ?? MISC. CHEMISTRY Hold Green Top SPECIMEN DISCARDED AFTER 1 WEEK ()?? 03/31/2023 02:26 ?? TOXICOLOGY/TDM Ethanol, Serum or Plasma 83 mg/dL (Abnormal)?? 03/31/2023 02:26 ?? UA/URINALYSIS Appear/Color, Urine YELLOW ()?? 03/31/2023 06:20 Clarity CLEAR ()?? 03/31/2023 06:20 Specific [place], Urine 1.020 ()?? 03/31/2023 06:20 pH, Urine 6.5 ()?? 03/31/2023 06:20 Albumin, Urine TRACE (Abnormal)?? 03/31/2023 06:20 Glucose, Urine NEGATIVE ()?? 03/31/2023 06:20 Ketones, Urine NEGATIVE ()?? 03/31/2023 06:20 Bilirubin, Urine NEGATIVE ()?? 03/31/2023 06:20 Hemoglobin, Urine NEGATIVE ()?? 03/31/2023 06:20 Nitrite, Urine NEGATIVE ()?? 03/31/2023 06:20 Leukocyte, Urine NEGATIVE ()?? 03/31/2023 06:20 Urobilinogen NORMAL mg/dL ()?? 03/31/2023 06:20 WBC's, Urine 2 /HPF ()?? 03/31/2023 06:20 RBC's, Urine <1 /HPF ()?? 03/31/2023 06:20 Squamous Epith 3 /HPF ()?? 03/31/2023 06:20 Hold Urine Culture Testing available 48 hours from time of collection. ()?? 03/31/2023 06:20 ?? URINE OTHER Est Creatinine Clearance 128.99 mL/min ()?? 03/31/2023 03:23 ?? VIROLOGY Influenza A PCR NEGATIVE ()?? 03/31/2023 09:31 Influenza B PCR NEGATIVE ()?? 03/31/2023 09:31 RSV PCR NEGATIVE ()?? 03/31/2023 09:31 COVID-19 PCR Specimen Source NASAL ()?? 03/31/2023 09:31 COVID-19 PCR Result NEGATIVE ()?? 03/31/2023 09:31 ? Hospital Progress note * Ganga BUTTERFIELD, Sanjuanita Zaldivar: PERFORM Event Display: Progress Note Hospital Authored Date: [id number] Patient: ??SIMA ROPER ? Age:??42 Years?Sex:??Female?:??1980?? Subjective Patient was seen and examined at emergency room Overall,??tolerated low-fat diet. Epigastric pain controlled with??hydromorphone 4 mg every 6 hours. Patient??was resumed on her??home??psychiatric medications Bed search for inpatient psychiatric treatment Review of Systems ??chronic depression??and anxiety disorder ?? Chronic abdominal pain, no nausea vomiting ?? Suicidal ideation ?? No ongoing alcohol withdrawal symptoms ?? No confusion Objective Measurements?? Height: 165 cm (04/02/23) Weight: 77.5 kg (04/02/23) Dry Weight: 77.5 kg (04/02/23) Body Mass Index:??28.47 kg/m2??High (04/02/23) ? Vital Signs?? Temperature: 98.1 DegF (04/02/23 06:23:00) Temperature Route: Temporal (04/02/23 06:23:00) Pulse Rate:??112 bpm??High (04/02/23 10:00:00) Respiratory Rate: 19 br/min (04/02/23 10:12:00) Respiratory Rate: 19 br/min (04/02/23 10:12:00) Systolic Blood Pressure: 98 mm Hg (04/02/23 10:00:00) Diastolic Blood Pressure:??85 mm Hg??High (04/02/23 10:00:00) Blood pressure sites: Arm, right (04/02/23 10:00:00) Mean Arterial Pressure: 77 mm Hg (04/02/23 06:23:00) Pulse Pressure: 26 mm Hg (04/02/23 06:23:00) Oxygen Saturation: 98 % (04/02/23 10:00:00) Mode of Delivery (Oxygen): Room air (04/02/23 10:00:00) ? Intake/Output? No Data Available ?? 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 Physical Exam ?Gen; no acute respiratory distress, cooperating with exam, sleeping in bed ?HEENT; no facial asymmetry?Abdomen; soft nontender, nondistended, normal bowel sounds ?Extremity; no edema ?Neuro exam; alert oriented x3, CN 2-12 normal ? _ Home Medications Albuterol (Albuterol (Eqv-ProAir HFA) 90 mcg/inh inhalation aerosol)?2?puff(s)?Inhalation?Every 6 hours Aripiprazole (Abilify 10 mg oral tablet)?10?Milligram?1?tablet?By Mouth?Daily at bedtime?for 90?Days BuPROpion (Wellbutrin XL 150 mg/24 hours oral tablet, extended release)?1?tab(s)?150?Milligram?By Mouth?Every 24 hours?for 90?Days BusPIRone (busPIRone 15 mg oral tablet)?1?tab(s)?15?Milligram?By Mouth?3 times a day?for 90?Days Doxepin (doxepin 50 mg oral capsule)?1?capsule?50?Milligram?By Mouth?Daily at bedtime?for 90?Days Gabapentin (gabapentin 600 mg oral tablet)?See Instructions?1 tablet in the morning and 2 tablets at bedtime Lamotrigine (lamotrigine 25 mg oral tablet)?75?Milligram?3?tablet?By Mouth?Daily at bedtime?for 90?Days Lorazepam (LORazepam 1 mg oral tablet)?1?tab(s)?1?Milligram?By Mouth?3 times a day?as needed?as needed for anxiety?for 30?Days Multivitamin (multivitamin Multiple Vitamins oral tablet)?1?tab(s)?By Mouth?Daily?for 30?Days Pancrelipase (Creon 36,000 units oral delayed release capsule)?1?capsule?By Mouth?3 times a day Pantoprazole (pantoprazole 40 mg oral delayed release tablet)?1?tab(s)?By Mouth?Daily Prazosin (prazosin 5 mg oral capsule)?5?Milligram?1?capsule?By Mouth?Daily at bedtime?for 90?Days Trazodone (traZODone 100 mg oral tablet)?100?Milligram?1?tablet?By Mouth?Daily atbedtime?for 90?Days?TAKE 1 TABLET BY MOUTH EVERY NIGHT AT BEDTIME ? Inpatient Medications Medications (27) Active SCHEDULED: (17) Aripiprazole 10mg Tablet (Abilify 10 mg oral tablet) ??10 mg, By Mouth, Daily at bedtime BuPROPion XL 150 mg Tablet (Wellbutrin XL Tablet) ??150 mg, By Mouth, Daily BusPIRone 10 mg Tablet (busPIRone 10 mg oral tablet) ??15 mg, By Mouth, 3 times a day Diazepam 5 mg Tablet (diazepam 5 mg oral tablet) ??5 mg, By Mouth, 3 times a day Doxepin 25 mg Capsule (Doxepin Capsule) ??50 mg, By Mouth, Daily at bedtime Folic Acid 1 mg Tablet (Folic Acid Tablet) ??1 mg, By Mouth, Daily Gabapentin 300 mg Capsule (gabapentin 300 mg oral capsule) ??600 mg, By Mouth, 3 times a day HYDROmorphone 2 mg Tablet (Dilaudid 2 mg oral tablet) ??2 mg, By Mouth, Every 4 hours LamoTRIGINE 25 mg Tablet (lamotrigine 25 mg oral tablet) ??75 mg, By Mouth, Daily at bedtime Multivitamin Tablet ??1 tablet, By Mouth, Daily NaCl 0.9% Flush 3ml (NaCL 0.9% Flush) ??3 mL, IV Push, Every 8 hours Pancrelipase 10,000 unit Capsule (Pancrelipase Capsule) ??10,000 units 1 capsule, By Mouth, 3 timesa day with meals Pantoprazole 40 mg EC Tablet (pantoprazole 40 mg oral delayed release tablet) ??40 mg, By Mouth, Daily Prazosin 5 mg Capsule (prazosin 5 mg oral capsule) ??5 mg, By Mouth, Daily at bedtime Pyridoxine 50 mg Tablet (Pyridoxine Tablet) ??50 mg, By Mouth, Daily Thiamine 100 mg Tablet (Thiamine Tablet) ??100 mg, By Mouth, 2 times a day Trazodone 50 mg Tablet (traZODone 50 mg oral tablet) ??100 mg, By Mouth, Daily at bedtime CONTINUOUS: (0) PRN: (10) Acetaminophen 325 mg Tablet (Acetaminophen Tablet) ??650 mg, By Mouth, Every 4 hours Al hydroxide/Mg hydroxide/simethicone 200 mg-200 mg-20 mg/5 mL Susp UD (Maalox Plus Liquid) ??30 mL, By Mouth, Every 8 hours Docusate Sodium 100 mg Capsule (Docusate Sodium Capsule) ??100 mg 1 capsule, By Mouth, 2 times a day Lorazepam 1 mg Tablet (LORazepam Tablet) ??1 mg, By Mouth, Every 8 hours Melatonin 3 mg Tablet (Melatonin Tablet) ??9 mg, By Mouth, Daily at bedtime Metoclopramide 5 mg/mL Inj (2 mL) (Reglan Inj) ??10 mg, IV Push Slowly, 3 times a day with meals NaCl 0.9% Flush 3ml (NaCL 0.9% Flush) ??3 mL, IV Push, Every 8 hours nalOXONE ??400mcg/mL Inj (Narcan Inj) ??0.4 mg 1 mL, IV Push Slowly, 2 times a day Senna Tablet ??8.6 mg 1 tablet, By Mouth, 2 times a day Simethicone 80 mg Chewable Tablet (Simethicone Tablet) ??80 mg, Chew, 3 times a day ? Results Abnormal Labs No lab data available. ? Blood Gases?? No qualifying data available. ?? Assessment/Plan Diagnoses Alcohol withdrawal seizure ??(F10.939) Major depressive disorder, recurrent episode, moderate degree ??(F33.1) Mood disorder ??(F39) Pancreatitis, chronic ??(K86.1) Post traumatic stress disorder (PTSD) ??(F43.10) Severe alcohol dependence ??(F10.20) 1. ??Abdominal pain, epigastric ??(R10.13) ?? Assessment:??This is a 42 years old??female with history of heavy alcohol use,??pre-existing psychiatric illness including depression anxiety, mood disorder, PTSD, chronic pancreatitis. Patient is hospitalized for??recurrent abdominal pain, nausea vomiting, suicidal ideation and probable seizure events. ?? Alcohol withdrawal seizure (F10.939):??: ?? Severe alcohol dependence (F10.20):??Patient is known for heavy alcohol use, self-reported a??probable seizure event??prior to hospitalization.??Last drink 24 hours ago??prior to hospitalization.??Patient received 6 doses of??diazepam,??no ongoing alcohol withdrawal symptoms Plan Discontinue CIWA??monitor Multivitamin, thiamine, folic acid? Major depressive disorder, recurrent episode, moderate degree (F33.1):??: ?? Post traumatic stress disorder (PTSD) (F43.10):??: ?? Mood disorder (F39):??Self-reported suicidal ideation., Followed??by??[facility]??mental health team.??Patient has not been??taking medication consistently.?Seen by psychiatry team.?Patient need??inpatient treatment for depression Plan?? Continue??one-to-one supervision for suicidal ideation Appreciate psychiatry consultation Resume gabapentin, trazodone, Wellbutrin,??buspirone, doxepin,??prazosin. Continue Ativan as needed ?? Pancreatitis, chronic (K86.1):??Known for chronic pancreatitis.?? scheduled low- dose oral??Dilaudid2 mg every 4 hour,??continue??low-fat diet ?? VTE Prophylaxis:??Low risk, patient is ambulatory ?? Code Status:??Full code ?Order Code Status:??Code Status Ordered ?? Ongoing Medical Necessity:??Alcohol withdrawal, alcohol withdrawal seizure, chronic pancreatitis ?? Tobacco Use Treatment:??Patient has not smoked for the last 2 weeks. She declined nicotine patch ?Tobacco Use Treatment Provided:??Cessation Medication Ordered ?? Discharge Planning:??Inpatient psychiatric treatment ? Billing code; 23232 Total preparation time 15 minutes with time spent at bedside and on the unit, time spent coordinating care with management, reviewing records and diagnostics. ?? This documentation was prepared using the [employer] voice recognition system. Please forgive any typographical, punctuation or contextual errors.?? * Amada Wolfe RN: PERFORM, SIGN, VERIFY Event Display: Progress Note Hospital Authored Date: [id number] Patient: SIMA ROPER Age: 42 years Sex: Female : 1980 Associated Diagnoses: None Author: Amada Wolfe RN Findings Nursing Data Vital Signs : VITAL SIGNS SECTION 04/01/2023 15:11 EST Pulse Rate 67 bpm Respiratory Rate 17 br/min Systolic Blood Pressure 134 mm Hg Diastolic Blood Pressure 66 mm Hg Pulse Pressure 68 mm Hg Oxygen Saturation 97 % Mode of Delivery (Oxygen) Room air . Narrative/Incidental Admission assessment complete, A&Ox4, ambulates independently, states she thinks she may have had a seizure as she woke on bedroom floor not knowing how she got there, meds reviewed, pt knowledgable of all meds/dosages. C/o abd pain/burning sensation RUQ & epigastric, states she has SI withno plan, though she states those thoughts are less to none now that she's in the ED. . All providers aware. Pt informed awaiting open bed assigment on either Med/Surg or psych floor. . * Ganga BUTTERFIELD, Sanjuanita Zaldivar: PERFORM Event Display: Progress Note Hospital Authored Date: Patient: ??SIMA ROPER ? Age:??42 Years?Sex:??Female?:??1980?? Subjective The patient was seen and examined??at emergency room. Overall??abdominal pain??seems controlled with IV Dilaudid. Feeling nauseous but no vomiting I advance to low-fat diet today. ?? Patient was seen by [facility]. ??Deemed need inpatient dual diagnosis treatment.?? Bed search pending ?I restarted patient on??gabapentin,??Wellbutrin,??buspirone,??prazosin, and doxepin Review of Systems Nauseous Feeling depressed Chronic abdominal pain due to pancreatitis No significant alcohol withdrawal??syndrome Suicidal ideation No fever No vomiting Objective Measurements?? Height: 165 cm (04/01/23) Weight: 77.5 kg (04/01/23) Dry Weight: 77.5 kg (04/01/23) Body Mass Index:??28.47 kg/m2??High (04/01/23) ? Vital Signs?? Temperature: 98.6 DegF (04/01/23 06:00:00) Temperature Route: Temporal (04/01/23 06:00:00) Pulse Rate: 63 bpm (04/01/23 13:17:00) Respiratory Rate: 18 br/min (04/01/23 13:17:00) Systolic Blood Pressure:??153 mm Hg??High (04/01/23 13:17:00) Diastolic Blood Pressure:??90 mm Hg??High (04/01/23 13:17:00) Blood pressure sites: Arm, left (04/01/23 13:12:00) Mean Arterial Pressure: 115 mm Hg (04/01/23 13:12:00) Pulse Pressure: 57 mm Hg (04/01/23 13:12:00) Oxygen Saturation: 98 % (04/01/23 13:12:00) Mode of Delivery (Oxygen): Room air (04/01/23 13:12:00) ? Intake/Output? No Data Available ?? 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 Physical Exam ?Gen; no acute respiratory distress, cooperating with exam ?HEENT; no facial asymmetry?Lungs; CATB ?Cardiac; RRR, no M/R/G ?Abdomen; soft nontender, nondistended, normal bowel sounds ?Extremity; no edema ?Neuro exam; alert oriented x3, CN 2-12 normal ? _ Home Medications Albuterol (Albuterol (Eqv-ProAir HFA) 90 mcg/inh inhalation aerosol)?2?puff(s)?Inhalation?Every 6 hours Aripiprazole (Abilify 10 mg oral tablet)?10?Milligram?1?tablet?By Mouth?Daily at bedtime?for 90?Days Azithromycin (Zithromax 250 mg oral tablet)?1?pack/packet?By Mouth?Once BuPROpion (Wellbutrin XL 150 mg/24 hours oral tablet, extended release)?1?tab(s)?150?Milligram?By Mouth?Every 24 hours?for 90?Days BusPIRone (busPIRone 15 mg oral tablet)?1?tab(s)?15?Milligram?By Mouth?3 times a day?for 90?Days Doxepin (doxepin 50 mg oral capsule)?1?capsule?50?Milligram?By Mouth?Daily at bedtime?for 90?Days Gabapentin (gabapentin 600 mg oral tablet)?See Instructions?1 tablet in the morning and 2 tablets at bedtime Lamotrigine (lamotrigine 25 mg oral tablet)?75?Milligram?3?tablet?By Mouth?Daily at bedtime?for 90?Days Lorazepam (LORazepam 1 mg oral tablet)?1?tab(s)?1?Milligram?By Mouth?3 times a day?as needed?as needed for anxiety?for 30?Days Multivitamin (multivitamin Multiple Vitamins oral tablet)?1?tab(s)?By Mouth?Daily?for 30?Days Pancrelipase (Creon 36,000 units oral delayed release capsule)?1?capsule?By Mouth?3 times a day Pantoprazole (pantoprazole 40 mg oral delayed release tablet)?1?tab(s)?By Mouth?Daily Prazosin (prazosin 5 mg oral capsule)?5?Milligram?1?capsule?By Mouth?Daily at bedtime?for 90?Days Trazodone (traZODone 100 mg oral tablet)?100?Milligram?1?tablet?By Mouth?Daily atbedtime?for 90?Days?TAKE 1 TABLET BY MOUTH EVERY NIGHT AT BEDTIME ? Inpatient Medications Medications (26) Active SCHEDULED: (13) BuPROPion XL 150 mg Tablet (Wellbutrin XL Tablet) ??150 mg, By Mouth, Daily BusPIRone 10 mg Tablet (busPIRone 10 mg oral tablet) ??15 mg, By Mouth, 3 times a day Diazepam 5 mg Tablet (diazepam 5 mg oral tablet) ??5 mg, By Mouth, 3 times a day Doxepin 25 mg Capsule (Doxepin Capsule) ??50 mg, By Mouth, Daily at bedtime Folic Acid 1 mg Tablet (Folic Acid Tablet) ??1 mg, By Mouth, Daily Gabapentin 300 mg Capsule (gabapentin 300 mg oral capsule) ??600 mg, By Mouth, 3 times a day HYDROmorphone 2 mg Tablet (Dilaudid 2 mg oral tablet) ??2 mg, By Mouth, Every 6 hours Multivitamin Tablet ??1 tablet, By Mouth, Daily NaCl 0.9% Flush 3ml (NaCL 0.9% Flush) ??3 mL, IV Push, Every 8 hours Prazosin 5 mg Capsule (prazosin 5 mg oral capsule) ??5 mg, By Mouth, Daily at bedtime Pyridoxine 50 mg Tablet (Pyridoxine Tablet) ??50 mg, By Mouth, Daily Thiamine 100 mg Tablet (Thiamine Tablet) ??100 mg, By Mouth, 2 times a day Trazodone 50 mg Tablet (traZODone 50 mg oral tablet) ??100 mg, By Mouth, Daily at bedtime CONTINUOUS: (0) PRN: (13) Acetaminophen 325 mg Tablet (Acetaminophen Tablet) ??650 mg, By Mouth, Every 4 hours Al hydroxide/Mg hydroxide/simethicone 200 mg-200 mg-20 mg/5 mL Susp UD (Maalox Plus Liquid) ??30 mL, By Mouth, Every 8 hours Docusate Sodium 100 mg Capsule (Docusate Sodium Capsule) ??100 mg 1 capsule, By Mouth, 2 times a day HYDROmorphone 1 mg/mL Inj Syringe (Dilaudid Inj) ??1 mg 1 mL, IV Push Slowly, Every 4 hours Lorazepam 1 mg Tablet (LORazepam Tablet) ??1 mg, By Mouth, Every 8 hours Lorazepam 2 mg Inj Syringe (Ativan Inj) ??1 mg, IV Push Slowly, Every 2 hours Lorazepam 2 mg Inj Syringe (Ativan Inj) ??2 mg, IV Push Slowly, Every 2 hours Lorazepam 2 mg Inj Syringe (Ativan Inj) ??4 mg, IV Push Slowly, Every hour Melatonin 3 mg Tablet (Melatonin Tablet) ??9 mg, By Mouth, Daily at bedtime Metoclopramide 5 mg/mL Inj (2 mL) (Reglan Inj) ??10 mg, IV Push Slowly, 3 times a day with meals NaCl 0.9% Flush 3ml (NaCL 0.9% Flush) ??3 mL, IV Push, Every 8 hours Senna Tablet ??8.6 mg 1 tablet, By Mouth, 2 times a day Simethicone 80 mg Chewable Tablet (Simethicone Tablet) ??80 mg, Chew, 3 times a day ? Results Abnormal Labs No lab data available. ? Blood Gases?? No qualifying data available. ?? Assessment/Plan Diagnoses Alcohol withdrawal seizure ??(F10.939) Major depressive disorder, recurrent episode, moderate degree ??(F33.1) Mood disorder ??(F39) Pancreatitis, chronic ??(K86.1) Post traumatic stress disorder (PTSD) ??(F43.10) Severe alcohol dependence ??(F10.20) ?? Assessment:??This is a 42 years old??female with history of heavy alcohol use,??pre-existing psychiatric illness including depression anxiety, mood disorder, PTSD, chronic pancreatitis. Patient is hospitalized for??recurrent abdominal pain, nausea vomiting, suicidal ideation and probable seizure events. ?? Alcohol withdrawal seizure (F10.939):??: ?? Severe alcohol dependence (F10.20):??Patient is known for heavy alcohol use, self-reported a??probable seizure event??prior to hospitalization.??Last drink 24 hours ago??prior to hospitalization.??Patient received 6 doses of benzodiazepine, minimal withdrawal symptoms. Plan Continue??CIWA??monitor Symptom triggered Ativan treatment Continue??diazepam??5 mg 3 times daily Monitor electrolytes Multivitamin, thiamine, folic acid? Major depressive disorder, recurrent episode, moderate degree (F33.1):??: ?? Post traumatic stress disorder (PTSD) (F43.10):??: ?? Mood disorder (F39):??Self-reported suicidal ideation., Followed??by??[facility]??mental health team.??Patient has not been??taking medication consistently.?Seen by psychiatry team.?Patient need??inpatient treatment for depression Plan?? Continue??one-to-one supervision for suicidal ideation Appreciate psychiatry consultation Resume gabapentin, trazodone, Wellbutrin,??buspirone, doxepin,??prazosin. Continue Ativan as needed ?? Pancreatitis, chronic (K86.1):??Known for chronic pancreatitis. COntinue IV hydromorphone 1 mg every 4 hours as needed,??scheduled low-dose oral??Dilaudid 2 mg every 6 hour,??low-fat diet, Reglan??IVfor control nausea vomiting. ?? VTE Prophylaxis:??Low risk, patient is ambulatory ?? Code Status:??Full code ?Order Code Status:??Code Status Ordered ?? Ongoing Medical Necessity:??Alcohol withdrawal, alcohol withdrawal seizure, chronic pancreatitis ?? Tobacco Use Treatment:??Patient has not smoked for the last 2 weeks. She declined nicotine patch ?Tobacco Use Treatment Provided:??Cessation Medication Ordered ?? Discharge Planning:??Psychiatric treatment ? Billing code; 05829 Total preparation time 25 minutes with time spent at bedside and on the unit, time spent coordinating care with management, reviewing records and diagnostics. ?? This documentation was prepared using the [employer] voice recognition system. Please forgive any typographical, punctuation or contextual errors.?? Note * Ganga BUTTERFIELD, Sanjuanita Zaldivar: PERFORM Event Display: Discharge/Transfer Note Hospital Authored Date: [id number] Patient: ??SIMA ROPER ? Age:??42 Years?Sex:??Female?:??1980?? Patient Information Discharge Location: ED Hold Primary Care Physician: Marissa Malik NP Admit Date/Time: 03/31/23 10:17 Discharge Disposition Discharge Disposition: ?? Discharge Diagnosis Alcohol withdrawal seizure (F10.939) Severe alcohol dependence (F10.20) Major depressive disorder, recurrent episode, moderate degree (F33.1) Post traumatic stress disorder (PTSD) (F43.10) Mood disorder (F39) Pancreatitis, chronic (K86.1) Abdominal pain, epigastric (R10.13) Depression Pancreatitis, chronic Post traumatic stress disorder (PTSD) ?? _ Discharge Medications Albuterol (Albuterol (Eqv-ProAir HFA) 90 mcg/inh inhalation aerosol)?2?puff(s)?Inhalation?Every 6 hours Aripiprazole (Abilify 10 mg oral tablet)?10?Milligram?1?tablet?By Mouth?Daily at bedtime?for 90?Days BuPROpion (Wellbutrin XL 150 mg/24 hours oral tablet, extended release)?1?tab(s)?150?Milligram?By Mouth?Every 24 hours?for 90?Days BusPIRone (busPIRone 15 mg oral tablet)?1?tab(s)?15?Milligram?By Mouth?3 times a day?for 90?Days Doxepin (doxepin 50 mg oral capsule)?1?capsule?50?Milligram?By Mouth?Daily at bedtime?for 90?Days Gabapentin (gabapentin 600 mg oral tablet)?See Instructions?1 tablet in the morning and 2 tablets at bedtime Hydromorphone (HYDROmorphone 2 mg oral tablet)?See Instructions?as needed?as needed for pain?1 tablet By Mouth Every 6 hours x1 day, 1 tablet every 8 hour for 1 day, 1 tablet every 12 for1 day, 1 tablet daily for 1 day. then stop. Lamotrigine (lamotrigine 25 mg oral tablet)?75?Milligram?3?tablet?By Mouth?Daily at bedtime?for 90?Days Lorazepam (LORazepam 1 mg oral tablet)?1?tab(s)?1?Milligram?By Mouth?3 times a day?as needed?as needed for anxiety?for 30?Days Multivitamin (multivitamin Multiple Vitamins oral tablet)?1?tab(s)?By Mouth?Daily?for 30?Days Pancrelipase (Creon 36,000 units oral delayed release capsule)?1?capsule?By Mouth?3 times a day Pantoprazole (pantoprazole 40 mg oral delayed release tablet)?1?tab(s)?By Mouth?Daily Prazosin (prazosin 5 mg oral capsule)?5?Milligram?1?capsule?By Mouth?Daily at bedtime?for 90?Days Trazodone (traZODone 100 mg oral tablet)?100?Milligram?1?tablet?By Mouth?Daily atbedtime?for 90?Days?TAKE 1 TABLET BY MOUTH EVERY NIGHT AT BEDTIME ? Quality Measures Tobacco Use Treatment:? Medications Started Dilaudid taper Allergies Allergies ?(Active and Proposed Allergies Only) ibuprofen? (Severity: Unknown severity, Onset: Unknown) acetaminophen? (Severity: Unknown severity, Onset: Unknown) Bee Stings? (Severity: Unknown severity, Onset: Unknown) Pollen? (Severity: Unknown severity, Onset: Unknown) ? Future Appointments Monday 9:20 AM EST ?? With: Domingo GALLEGOS, Anai Levi Where: [facility] [address] [place] [id number]- Status: Pending Hospital Course AMS, woke up on floor, daily drinker History of Present Illness This is a 42 years old female with history of PTSD, depression, anxiety disorder,??benzodiazepine addiction, and??heavy??alcohol??use.?? Patient's last drink is approximate 24 hours ago. ??She woke up this morning, found??herself on the floor, suspect having seizure, called 911 and was subsequently??brought to [facility] ER for evaluation.?? Upon arrival, she is awake alert, follow command. ??She complained of severe epigastric pain radiating to her right flank area. ??She received IV Dilaudid.?? She had?? nausea vomiting, subsequently subsided after receiving??antiemetics.?? Initially plan to have her discharge home however patient made,??that she plan to overdose on her psychiatric medi cations and complained persistent??epigastric pain associate with nausea vomiting.?Crisis team was activated.?Due to ongoing depression, suicidal ideation,??high risk for alcohol withdrawal, decision was made to admit his hospital for further evaluation. [1] Objective Assessment and Plan Assessment:??This is a 42 years old??female with history of heavy alcohol use,??pre-existing psychiatric illness including depression anxiety, mood disorder, PTSD, chronic pancreatitis. Patient is hospitalized for??recurrent abdominal pain, nausea vomiting, suicidal ideation and a probable seizure event at home. ?? Alcohol withdrawal seizure (F10.939):??: ?? Severe alcohol dependence (F10.20):??Patient is known for heavy alcohol use, self-reported a??probable seizure event??prior to hospitalization.??Last drink 24 hours ago??prior to hospitalization.??Patient received 6 doses of??diazepam,??no ongoing alcohol withdrawal symptoms.?? Plan Continue with thiamine multivitamin ?? Major depressive disorder, recurrent episode, moderate degree (F33.1):??: ?? Post traumatic stress disorder (PTSD) (F43.10):??: ?? Mood disorder (F39):??Self-reported suicidal ideation., Followed??by??[facility]??mental health team.??Patient has not been??taking medication consistently.?Seen by psychiatry team.?Patient need??inpatient treatment for depression Plan?? Transfer to??inpatient psychiatric treatment facility Resume gabapentin, trazodone, Wellbutrin, buspirone, doxepin, prazosin. Continue Ativan as needed ?? Pancreatitis, chronic (K86.1):??Known for chronic pancreatitis.?? While in the hospital, patient tolerated low-fat diet. Patient received??fixed??dose of Dilaudid??4 mg every 6 hour??for 24 hours followed by 2 mg??every 4 hours for 24 hours.??Patient will continue??Dilaudid??2 mg??every 6 hours??for??24 hours,??2 mg 3 times daily??for 24 hours, 2 times daily for 1 day,??2 mg daily??for 1 day??to prevent??opioid withdrawal ?? Discharge Planning:? Measurements?? Height: 165 cm (04/02/23) Weight: 77.5 kg (04/02/23) Dry Weight: 77.5 kg (04/02/23) Body Mass Index:??28.47 kg/m2??High (04/02/23) ? Vital Signs?? Temperature: 97.4 DegF (04/03/23 06:24:00) Temperature Route: Oral (04/03/23 06:24:00) Pulse Rate:??97 bpm??High (04/03/23 06:24:00) Respiratory Rate: 18 br/min (04/03/23 06:24:00) Systolic Blood Pressure: 106 mm Hg (04/03/23 06:24:00) Diastolic Blood Pressure: 81 mm Hg (04/03/23 06:24:00) Blood pressure sites: Arm, left (04/03/23 06:24:00) Mean Arterial Pressure: 85 mm Hg (04/02/23 21:15:00) Pulse Pressure: 31 mm Hg (04/02/23 21:15:00) Oxygen Saturation: 100 % (04/03/23 06:24:00) Mode of Delivery (Oxygen): Room air (04/03/23 06:24:00) ? 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 Mobility & Ambulation Level Mobility & Ambulation Level?? No qualifying data available. ?? Therapeutic Activity Therapeutic Activities/Mobility/Balance?? No qualifying data available. ?? . Physical Exam ?Gen; no acute respiratory distress, cooperating with exam ?HEENT; no facial asymmetry?Lungs; CATB ?Cardiac; RRR, no M/R/G ?Abdomen; soft nontender, nondistended, normal bowel sounds ?Extremity; no edema ?Neuro exam; alert oriented x3, CN 2-12 normal ? Pending Results Add On Lab Order ordered on 03/31/2023 Home Health Face to Face ^HomeHealth[facility] Results Discharge Labs BLOOD COUNT & DIFF WBC 4.0 k/mm3 ()?? 03/31/2023 02:26 RBC 4.12 m/mm3 (Low)?? 03/31/2023 02:26 Hgb 13.9 Gm/dL ()?? 03/31/2023 02:26 Hct 40.6 % ()?? 03/31/2023 02:26 MCV 98.5 femtoliters ()?? 03/31/2023 02:26 MCH 33.7 pg ()?? 03/31/2023 02:26 MCHC 34.2 g/dL ()?? 03/31/2023 02:26 Platelet Count 163 k/mm3 ()?? 03/31/2023 02:26 RDW-SD 56.6 femtoliters (High)?? 03/31/2023 02:26 MPV 9.1 femtoliters (Low)?? 03/31/2023 02:26 Nucleated RBC (Automated) 0.0 #/100 WBC'S ()?? 03/31/2023 02:26 Abs. NRBC 0.0 k/mm3 ()?? 03/31/2023 02:26 Abs. Neut 3.0 k/mm3 ()?? 03/31/2023 02:26 Abs. Lymph 0.7 k/mm3 (Low)?? 03/31/2023 02:26 Abs. [place] 0.3 k/mm3 (Low)?? 03/31/2023 02:26 Abs. Eo 0.0 k/mm3 ()?? 03/31/2023 02:26 Abs. Baso 0.0 k/mm3 ()?? 03/31/2023 02:26 Neut % 73.6 % ()?? 03/31/2023 02:26 Lymph % 18.0 % ()?? 03/31/2023 02:26 [place] % 7.8 % ()?? 03/31/2023 02:26 Eos % 0.0 % ()?? 03/31/2023 02:26 Baso % 0.3 % ()?? 03/31/2023 02:26 Imm Gran 0.3 % ()?? 03/31/2023 02:26 Abs. Imm Gran 0.0 k/mm3 ()?? 03/31/2023 02:26 ?? CHEM GENERAL Sodium 141 mmol/L ()?? 03/31/2023 02:26 Potassium 3.9 mmol/L ()?? 03/31/2023 02:26 Chloride 101 mmol/L ()?? 03/31/2023 02:26 Bicarbonate Level 25 mmol/L ()?? 03/31/2023 02:26 Anion Gap 15 ()?? 03/31/2023 02:26 Glucose Level 144 mg/dL (High)?? 03/31/2023 02:26 BUN 6 mg/dL ()?? 03/31/2023 02:26 Creatinine-Blood 0.5 mg/dL ()?? 03/31/2023 02:26 Estimated GFR Creatinine 119 ML/MIN/1.73 M2 ()?? 03/31/2023 02:26 Calcium 8.4 mg/dL (Low)?? 03/31/2023 02:26 Protein, Total 6.6 Gm/dL ()?? 03/31/2023 02:26 Albumin 3.7 Gm/dL ()?? 03/31/2023 02:26 AG Ratio 1.3 ()?? 03/31/2023 02:26 Alkaline Phosphatase 109 units/L (High)?? 03/31/2023 02:26 Lipase 31 units/L ()?? 03/31/2023 02:26 AST (SGOT) 74 units/L (High)?? 03/31/2023 02:26 ALT (SGPT) 39 units/L (High)?? 03/31/2023 02:26 Bilirubin, Total 0.3 mg/dL ()?? 03/31/2023 02:26 ?? ENDOCRINE/TUMOR MARKER Beta HCG-serum, Qual NEGATIVE ()?? 03/31/2023 02:26 ? HEME OTHER Hold Blue Top SPECIMEN DISCARDED AFTER 4 HOURS. ()?? 03/31/2023 02:26 ? MISC. CHEMISTRY Hold Green Top SPECIMEN DISCARDED AFTER 1 WEEK ()?? 03/31/2023 02:26 ? TOXICOLOGY/TDM Ethanol, Serum or Plasma 83 mg/dL (Abnormal)?? 03/31/2023 02:26 ? UA/URINALYSIS Appear/Color, Urine YELLOW ()?? 03/31/2023 06:20 Clarity CLEAR ()?? 03/31/2023 06:20 Specific [place], Urine 1.020 ()?? 03/31/2023 06:20 pH, Urine 6.5 ()?? 03/31/2023 06:20 Albumin, Urine TRACE (Abnormal)?? 03/31/2023 06:20 Glucose, Urine NEGATIVE ()?? 03/31/2023 06:20 Ketones, Urine NEGATIVE ()?? 03/31/2023 06:20 Bilirubin, Urine NEGATIVE ()?? 03/31/2023 06:20 Hemoglobin, Urine NEGATIVE ()?? 03/31/2023 06:20 Nitrite, Urine NEGATIVE ()?? 03/31/2023 06:20 Leukocyte, Urine NEGATIVE ()?? 03/31/2023 06:20 Urobilinogen NORMAL mg/dL ()?? 03/31/2023 06:20 WBC's, Urine 2 /HPF ()?? 03/31/2023 06:20 RBC's, Urine <1 /HPF ()?? 03/31/2023 06:20 Squamous Epith 3 /HPF ()?? 03/31/2023 06:20 Hold Urine Culture Testing available 48 hours from time of collection. ()?? 03/31/2023 06:20 ?? URINE OTHER Est Creatinine Clearance 128.99 mL/min ()?? 03/31/2023 03:23 ? VIROLOGY Influenza A PCR NEGATIVE ()?? 03/31/2023 09:31 Influenza B PCR NEGATIVE ()?? 03/31/2023 09:31 RSV PCR NEGATIVE ()?? 03/31/2023 09:31 COVID-19 PCR Specimen Source NASAL ()?? 03/31/2023 09:31 COVID-19 PCR Result NEGATIVE ()?? 03/31/2023 09:31 ? 35 minutes spent on discharge Discharge code 44725; this discharge preparation with time spent at the bedside, coordinating care with consulting physicians, transition care as well as performing [id number] documentation/patienteducation. This documentation was prepared using the [employer] voice recognition system. Please forgive any typographical, punctuation or contextual errors. ?? [1]??Initial Evaluation Note; Sanjuanita Schuler MD 03/31/2023 12:59 EST Patient Care team information Care Team Personnel Name: Marissa Malik NP Position: [facility] PCO Associate Professional Member Role: PCP Address: Address: [address] [place] [id number]- Name: Elisa Lamar RN Position: [facility] RN Member Role: Primary Care Nurse Name: Zo Segal RN Position: [facility] AMB Nurse Member Role: Primary Care Nurse Name: Antonia Mtz RN Position: [facility] RN Member Role: Primary Care Nurse Name: Milla Emmanuel RN Position: [facility] SN RN Member Role: Primary Care Nurse Name: Carol Min MA Position: [facility] RN Member Role: Primary Care Nurse Name: Katt Gustafson Position: [facility] RN Member Role: Primary Care Nurse Name: Ashely Pacheco Position: [facility] RN Member Role: Primary Care Nurse Name: Miri Espitia RN Position: [facility] AMB Nurse Member Role: Primary Care Nurse Name: Maksim Hunt III, RN Position: [facility] RN Member Role: Primary Care Nurse Name: Elisa Fields RN Position: [facility] RN Member Role: Primary Care Nurse Name: Aron Mcginnis RN Position: [facility] SN RN Member Role: Primary Care Nurse Name: Natalia Plata RN Position: [facility] RN Member Role: Primary Care Nurse Name: Kacy Barnhart RN Position: [facility] RN Member Role: Primary Care Nurse Name: Guerline Ramirez RN Position: [facility] RN Member Role: Primary Care Nurse Name: Ashlyn Cordova RN Position: [facility] Onco RN Member Role: Primary Care Nurse Name: Jennifer Ignacio RN Position: [facility] RN Member Role: Primary Care Nurse Name: Mady SAWANT Attending Position: [facility] ED Medicine MD Name: Namrata Ortiz RN Position: [facility] ED RN W/OE and Tasks Member Role: Patient Care Provider Care Team Related Persons Name: KORY NGO Address: home [address] [address] Name: TEVIN WILL Address: home [address] [place] [address] Name: ALEX WILL Address: home [address] [place] [address] Name: ALEX ROPER Address: home [address] [place] [address]
--- OUTSIDE RECORDS SUMMARY | 2023-09-06 15:48 | XMS_ITS | Continuity of Care Document ---
Author Organization [facility] Address [address] [place] [address]- Care Team Providers Care Treasury Analyst Name Role Phone Marissa Malik NP Primary Care Physician [phone] Encounter [facility] Date(s): 02/02/23 - 03/04/23 [facility] [address], [place] [address] Allergies, Adverse Reactions, Alerts [...] 02/03/23 13:42:00 EDT, Route to Pharmacy Electronically, [facility] #[id number], 166, cm, 12/16/22 17:39:00 EDT, Height, 77, kg, 12/12/22 16:21:00... Start Date: 02/03/23 Stop Date: 08/02/23 Status: Ordered Albuterol (Eqv-ProAir HFA) 90 mcg/inh inhalation aerosol 2 puffs, Inhalation, Every 6 hours, # 8.5 Gm, 0 Refills, Maintenance, 02/17/23 18:07:00 EDT, [facility] #[id number], Partial fill upon patient request if the prescription is for a schedule II opioid drug., 2 puffs Inhalation Every 6 hours, 166, c... Start Date: 02/17/23 Status: Ordered busPIRone 15 mg oral tablet 1 tablet = 15 mg, By Mouth, 3 times a day, # 270 tablet, 1 Refills, Maintenance, 02/03/23 13:43:00 EDT, Tablet, [facility] #[id number], Partial fill upon patient request if the prescription is for a schedule II opioid drug., 166, cm, 12/16/22 17:... Start Date: 02/03/23 Stop Date: 08/02/23 Status: Ordered Creon 36,000 units oral delayed release capsule 1 capsule, By Mouth, 3 times a day, # 90 capsule, 3 Refills, Maintenance, 06/08/22 9:09:00 EST, [facility] #[id number], Partial fill upon patient request if the prescription is for a schedule IIopioid drug., 1 capsule By Mouth 3 times a day, 165... Start Date: 06/08/22 Status: Ordered doxepin 50 mg oral capsule 1 capsule = 50 mg, By Mouth, Daily at bedtime, # 90 capsule, 1 Refills, Maintenance, 02/03/23 13:43:00 EDT, Capsule, [facility] #[id number], 166, cm, 12/16/22 17:39:00 EDT, Height, 77, kg, 12/12/22 16:21:00 EDT, Dry Weight Start Date: 02/03/23 Stop Date: 08/02/23 Status: Ordered gabapentin 600 mg oral tablet See Instructions, 1 tablet in the morning and 2 tablets at bedtime, # 270 tablet, 1 Refills, Maintenance, 02/03/23 13:43:00 EDT, Tablet, [facility] #[id number], 90 day supply, 166, cm, 12/16/22 17:39:00 EDT, Height, 77, kg, 12/12/22 16:21:00 EDT,... Start Date: 02/03/23 Status: Ordered lamotrigine 25 mg oral tablet 75 mg, 3, tablet, By Mouth, Daily at bedtime, # 270 tablet, Refills 1, Tot. Refills 1, Maintenance,02/03/23 13:43:00 EDT, Route to Pharmacy Electronically, [facility] #[id number], Partial fill upon patient request if the prescription is for a sc... Start Date: 02/03/23 Stop Date: 08/02/23 Status: Ordered LORazepam 1 mg oral tablet 1 tablet = 1 mg, By Mouth, 3 times a day, PRN as needed for anxiety, # 90 tablet, 3 Refills, Maintenance, 02/03/23 13:44:00 EDT, Tablet, [facility] #[id number], Partial fill upon patient requestif the prescription is for a schedule II opioid elijah... Start Date: 02/03/23 Stop Date: 06/03/23 Status: Ordered multivitamin Multiple Vitamins oral tablet 1 tablet, By Mouth, Daily, # 30 tablet, 1 Refills, Maintenance, 10/01/19 11:23:00 EDT, Tablet, [facility], 1 tablet By Mouth Daily,x30 [...] Maintenance,02/03/23 13:47:00 EDT, Route to Pharmacy Electronically, [facility] #[id number], 166, cm, 12/16/22 17:39:00 EDT, Height, 77, kg, 12/12/22 16:21:00... Start Date: 02/03/23 Stop Date: 08/02/23 Status: Ordered traMADol 50 mg oral tablet 1 tablet = 50 mg, By Mouth, Every 12 hours, PRN for pain, for 22 days, # 44 tablet, 0 Refills, Acute 03/11/23 19:01:00 EDT, 02/17/23 19:01:00 EDT, Tablet, [facility] #[id number], [facility] [id number]/13/23. Last fill 02/14/23 for 7 day supply (#28)... Start Date: 02/17/23 Stop Date: 03/11/23 Status: Ordered traZODone 100 mg oral tablet 100 mg, 1, tablet, By Mouth, Daily at bedtime, TAKE 1 TABLET BY MOUTH EVERY NIGHT AT BEDTIME, # 90 tablet, Refills 1, Tot. Refills 1, Maintenance, 02/03/23 13:46:00 EDT, Route to Pharmacy Electronically, [facility] #[id number], Partial fill upon... Start Date: 02/03/23 Stop Date: 08/02/23 Status: Ordered Wellbutrin XL 150 mg/24 hours oral tablet, extended release 1 tablet = 150 mg, By Mouth, Every 24 hours, # 90 tablet, 1 Refills, Maintenance, 02/03/23 13:43:00EDT, XL Tablet, [facility] #[id number], Partial fill upon patient request if the prescription is for a schedule II opioid drug., 166lali, 12/16/22... Start Date: 02/03/23 Stop Date: 08/02/23 Status: Ordered Zithromax 250 mg oral tablet 1 pack/packet, By Mouth, Once, # 6 tablet, 0 Refills, Soft Stop, 02/17/23 18:07:00 EDT, Tablet, [facility] #[id number], Partial fill upon patient request if the prescription is for a schedule IIopioid drug., 166, cm, 02/17/23 17:52:00 EDT, Elieser... Start Date: [...] Team Personnel Name: Marissa Malik NP Position: [facility] PCO Associate Professional Member Role: PCP Address: Address: [address] [place] [id number] Name: Elisa Lamar RN Position: [facility] RN Member Role: Primary Care Nurse Name: Zo Segal RN Position: [facility] AMB Nurse Member Role: Primary Care Nurse Name: Antonia Mtz RN Position: [facility] RN Member Role: Primary Care Nurse Name: Milla Emmanuel RN Position: [facility] SN RN Member Role: Primary Care Nurse Name: Carol Min [place] Position: [facility] RN Member Role: Primary Care Nurse Name: Katt Gustafson Position: [facility] RN Member Role: Primary Care Nurse Name: Ashely Pacheco Position: [facility] RN Member Role: Primary Care Nurse Name: Miri Espitia RN Position: [facility] MAGO Nurse Member Role: Primary Care Nurse Name: Maksim Hunt III, RN Position: [facility] RN Member Role: Primary Care Nurse Name: Elisa Fields RN Position: [facility] RN Member Role: Primary Care Nurse Name: Aron Mcginnis RN Position: [facility] GUSTAVO RN W/OE and Tasks Member Role: Primary Care Nurse Name: Natalia Plata RN Position: [facility] RN Member Role: Primary Care Nurse Name: Kacy Barnhart RN Position: [facility] RN Member Role: Primary Care Nurse Name: Guerline Ramirez RN Position: [facility] RN Member Role: Primary Care Nurse Name: Tasha KEY, Ashlyn Lynn Position: [facility] RN Member Role: Primary Care Nurse Name: Jennifer Ignacio RN Position: [facility] RN Member Role: Primary Care Nurse Care Team Related Persons Name: KORY NGO Address: home [address] [address] Name: TEVIN WILL Address: home [address] [place] [address] Name: ALEX WILL Address: [address] [place] [address] Name: ALEX ROPER Address: [address] [place] [address]
--- OUTSIDE RECORDS SUMMARY | 2023-09-06 15:48 | XMS_ITS | Continuity of Care Document ---
Author Organization [facility] ter Address [address] [place] [id number]- Care Team Providers Care Hospital Administrative Assistant Name Role Phone [employer], Anai L Primary Care Physician Encounter [facility] Date(s): 08/01/23 - 08/08/[address] [address]- Encounter Diagnosis Chronic pancreatitis(Final) - 08/02/23 Discharge Disposition: A-D/C Home Attending Physician: Miguelina Mckeon MD Admitting Physician: Jesse Brantley MD Referring Physician: Not on Staff, Referring [...] 02/03/23 13:42:00 EDT, Route to Pharmacy Electronically, [facility] #[id number], 166, cm, 12/16/22 17:39:00 EDT, Height, 77, kg, 12/12/22 16:21:00... Start Date: 02/03/23 Stop Date: 08/02/23 Status: Ordered Albuterol (Eqv-ProAir HFA) 90 mcg/inh inhalation aerosol 2 puffs, Inhalation, Every 6 hours, # 8.5 Gm, 0 Refills, Maintenance, 02/17/23 18:07:00 EDT, [facility] #[id number], Partial fill upon patient request if the prescription is for a schedule II opioid drug., 2 puffs Inhalation Every 6 hours, 166, c... Start Date: 02/17/23 Status: Ordered buPROPion 300 mg/24 hours (XL) oral tablet, extended release 1 tablet = 300 mg, By Mouth, Every 24 hours, # 90 tablet, 1 Refills, Maintenance, 06/06/23 16:18:00EST, [facility] #[id number], Partial fill upon patient request if the prescription is for a schedule II opioid drug., 165, cm, 04/02/23 23:00:00 E... Start Date: 06/06/23 Stop Date: 12/03/23 Status: Ordered cephalexin monohydrate 500 mg oral capsule = 500 mg, By Mouth, Every 6 hours, for 6 days, # 24 capsule, 0 Refills, Acute 08/14/23 8:14:00 EDT,08/08/23 8:14:00 EDT, Capsule, [facility], Partial fill upon patient request if the prescription is for a schedule II opioid drug., 165,... Start Date: 08/08/23 Stop Date: 08/14/23 Status: Ordered Creon 36,000 units oral delayed release capsule 1 capsule, By Mouth, 3 times a day, # 90 capsule, 3 Refills, Maintenance, 06/08/22 9:09:00 EST, [facility] #[id number], Partial fill upon patient request if the prescription is for a schedule IIopioid drug., 1 capsule By Mouth 3 times a day, 165... Start Date: 06/08/22 Status: Ordered doxepin 50 mg oral capsule 1 capsule = 50 mg, By Mouth, Daily at bedtime, # 90 capsule, 1 Refills, Maintenance, 06/06/23 16:15:00 EST, Capsule, [facility] #[id number], 165, cm, 04/02/23 23:00:00 EST, Height, 77.5, kg, 04/02/23 23:00:00 EST, Dry Weight Start Date: 06/06/23 Stop Date: 12/03/23 Status: Ordered gabapentin 300 mg oral capsule 600 mg, Capsule, By Mouth, 08/08/23 15:00:00 EDT Start Date: 08/08/23 Stop Date: 08/08/23 Status: Completed gabapentin 600 mg oral tablet See Instructions, 1 tablet in the morning and 2 tablets at bedtime, # 270 tablet, 1 Refills, Maintenance, 06/06/23 16:17:00 EST, Tablet, [facility] #[id number], 90 day supply, 165, cm, 04/02/23 23:00:00 EST, Height, 77.5, kg, 04/02/23 23:00:00 ES... Start Date: 06/06/23 Status: Ordered lamotrigine 25 mg oral tablet 75 mg, 3, tablet, By Mouth, Daily at bedtime, # 270 tablet, Refills 1, Tot. Refills 1, Maintenance,06/06/23 16:16:00 EST, Route to Pharmacy Electronically, [facility] #[id number], Partial fill upon patient request if the prescription is for a sc... Start Date: 06/06/23 Stop Date: 12/03/23 Status: Ordered lidocaine 4% topical cream See Instructions, apply 2 x per day to the R forearm, as needed for pain; not to exceed 3 applications in 24 hours, # 30 Gm, 0 Refills, Soft Stop, 08/08/23 9:15:00 EDT, Cream, [facility] to substitute similar topical lidocaine prod... Start Date: 08/08/23 Status: Ordered LORazepam 1 mg oral tablet 1 tablet = 1 mg, By Mouth, 3 times a day, PRN as needed for anxiety, # 90 tablet, 3 Refills, Maintenance, 06/06/23 16:16:00 EST, Tablet, [facility] #[id number], dose increase, 165, cm, 04/02/23 23:00:00 EST, [...] EDT, Tablet, [facility]-[id number], 1 tablet By Mouth Daily,x30 days, 165.1, cm, 10/01/19 8:37:00 EDT, Height, 80.1, kg, 09/19/19 16:30:00 EDT, Dry Weight Start Date: 10/01/19 Stop Date: 11/30/19 Status: Ordered nicotine 7 mg/24 hr transdermal film, extended release 1 patch, Topically, Daily, for 28 days, # 28 patch, 0 Refills, Acute 09/05/23 8:14:00 EDT, :14:00 EDT, Patch, [facility] 3, Partial fill upon patient request if the prescriptionis for a schedule II opioid drug. OK to dispense si... Start Date: 08/08/23 Stop Date: 09/05/23 Status: Ordered oxyCODONE 5 mg oral tablet 7.5 mg, Tablet, By Mouth, Every 4 hours, PRN for Pain , Moderate, Routine, 08/02/23 11:06:00 EDT Start Date: 08/02/23 Stop Date: 08/16/23 Status: Ordered pantoprazole 40 mg oral delayed [...] Maintenance,06/06/23 16:17:00 EST, Route to Pharmacy Electronically, [facility] #[id number], 165, cm, 04/02/23 23:00:00 EST, Height, 77.5, kg, 04/02/23 23:00:... Start Date: 06/06/23 Stop Date: 12/03/23 Status: Ordered traZODone 100 mg oral tablet 100 mg, 1, tablet, By Mouth, Daily at bedtime, TAKE 1 TABLET BY MOUTH EVERY NIGHT AT BEDTIME, # 90 tablet, Refills 1, Tot. Refills 1, Maintenance, 06/06/23 16:17:00 EST, Route to Pharmacy Electronically, [facility] #[id number], Partial fill upon... Start Date: 06/06/23 Stop [...] Exam Date Time Procedure Performing Provider Status 08/06/23 7:24 PM US Doppler Ext Upper Venous Right Beverley Isidro; Auth (Verified) Notes: (US Doppler Ext Upper Venous Right) Reason For Exam: Swelling Extremities RESULT: US Doppler Ext Upper Venous Right US Doppler Ext Upper Venous Right Reason: Swelling Extremities; Clinical Question(s): Thrombosis COMPARISON: None. IMAGING TECHNIQUE: Ultrasound examination of the upper extremity deep venous system was performed using grayscale, color, and spectral wave analysis including response to compression. Assessment includes the contralateral jugular and subclavian vein. FINDINGS: Internal jugular vein: Patent. No thrombosis. Subclavian vein: Patent. No thrombosis. Axillary vein: Patent. No thrombosis. Brachial vein: Patent. No thrombosis. Basilic vein: Occlusive thrombus within basilic vein branches extending from the antecubital fossa into forearm collectively more than 5 cm in length. Cephalic vein: Patent. No thrombosis. Contralateral internal jugular vein: Patent. No thrombosis. Contralateral subclavian vein: Patent. No thrombosis. IMPRESSION: Occlusive thrombus within the right basilic vein branches extending from the antecubital fossa intothe forearm as above. An actionable message ([place]val) has been communicated via the [employer] system on 08/06/2023 7:54 PM, Message ID [id number]. WSN: [id number] Ordering Physician: Miguelina Mckeon Dictated By: Prosper Galvan MD Dictated Date/Time: 08/06/23 7:54 pm Reviewed By: Prosper Galvan MD Signed By: Prosper Galvan MD Signed Date/Time: 08/06/23 7:54 pm Transcribed By: DIPESH Transcribed Date/Time: 08/06/23 7:53 pm * Exam Date Time Procedure Performing Provider Status 08/01/23 6:[address] Abd/Pelvis W/ IV Contrast Only Mate o , Cami; Auth (Verified) Notes: (CT Abd/Pelvis W/ IV Contrast Only) Reason For Exam: Epigastric pain;Other: RESULT: CT Abd/Pelvis W/ IV Contrast Only CT Abd/Pelvis W/ IV Contrast Only Hx of Present Illness: : abd pain hx of pancreatitis was here yesterday lactate 5.7; Reason: Other:; Epigastric pain; Clinical Question(s): Pancreatitis; Order Comment: TECHNIQUE: Spiral CT through the abdomen and pelvis with IV contrast formatted in 3 planes. 100 cc of Omnipaque 300 was administered intravenously. This study was performed without oral contrast. Weight-based protocol using automatic tube modulation was used to optimize exposure parameters. CTDIvol Body: 15.30 mGy, DLP Body: 864 mGy*cm. COMPARISON: Radiograph dated May 23, 2022, and CT of the abdomen and pelvis dated April 14, 2022. FINDINGS: Ciso View Findings, Lines and Tubes: None. Visualized Chest: Mild dependent atelectasis. No pleural or pericardial effusion. Diaphragm: Normal. Liver: Diffuse hypoattenuation hepatic parenchyma compatible with severe hepatic steatosis. Focal fatty sparing adjacent to the gallbladder fossa. Gallbladder: No CT evidence of gallbladder pathology. Bile ducts: No biliary ductal dilation. Spleen: Normal. Accessory splenic tissue is incidentally noted. Pancreas: Negative pancreas with scattered calcifications compatible with chronic pancreatitis. Mild prominence of the main pancreatic duct is similar to prior imaging without suspicious abnormality or acute peripancreatic inflammation or fluid collection. Adrenal glands: Normal. Kidneys and ureters: No hydronephrosis, stones, or suspicious masses. Mildly lobulated cortical contour, which may indicate scarring from prior infection or inflammation, worse on the left. Bladder: Bladder wall thickening, likely due to partial distention. Reproductive organs: Unremarkable. Stomach, small bowel, and large bowel: The stomach is decompressed, limiting assessment. Small bowel loops are normal in course and caliber without evidence of obstruction. Colon is unremarkable without acute inflammatory changes. Appendix: Normal. Peritoneum and retroperitoneum: No ascites or pneumoperitoneum. No omental or mesenteric lesions. Small ovoid foci of stranding adjacent to the mid small bowel in the left mid abdominal mesentery, likely sequela of prior fat necrosis, no acute surrounding inflammatory change (series 201 image 89 and 55). Calcification in the right low pelvis, also likely sequela of prior fat necrosis (image 123). Lymph nodes: No enlarged lymph nodes. Blood vessels: Normal. No aneurysm. No evidence of venous thrombosis. Abdominal and pelvic wall: Unremarkable. Bones: No acute abnormality. Sclerotic appearance of left femoral head suggesting avascular necrosis without subchondral collapse. IMPRESSION: No acute abnormality in the abdomen or pelvis. Sequela of chronic pancreatitis without acute peripancreatic stranding or fluid collection. Severe hepatic steatosis. Mild bladder wall thickening, likely due to partial distention, with cystitis possible in the proper clinical setting. Consider correlation with urinalysis. WSN: [id number] Ordering Physician: Tyrese Paredes Dictated By: Noe Rodriguez MD Dictated Date/Time: 08/01/23 6:40 pm Reviewed By: Noe Rodriguez MD Signed By: Noe Rodriguez MD Signed Date/Time: 08/01/23 6:40 pm Transcribed By: DIPESH Transcribed Date/Time: 08/01/23 6:28 pm * Exam Date Time Procedure Performing Provider Status 08/01/23 6:06 PM Chest 2 Views Frontal and Lat Kwaku , Hong; Auth (Verified) Notes: (Chest 2 Views Frontal and Lat) Reason For Exam: Shortness of Breath RESULT: Chest 2 Views Frontal and Lat Chest 2 Views Frontal and Lat Hx of Present Illness: : abd pain hx of pancreatitis was here yesterday lactate 5.7; Reason: Shortness of Breath; Clinical Question(s): CHF COMPARISON: March 02, 2023 FINDINGS: LINES AND TUBES: None. LUNGS AND PLEURA: Clear lungs. Normal pulmonary vascularity. No pleural effusion. No pneumothorax. HEART, MEDIASTINUM AND TONIE: Heart is normal in size. Normal mediastinal and hilar contour. BONES AND SOFT TISSUES: No acute abnormality. IMPRESSION: No acute abnormality. WSN: [id number] Ordering Physician: Tyrese Paredes Dictated By: Osiel Garcia MD Dictated Date/Time: 08/01/23 6:14 pm Reviewed By: Osiel Garcia MD Signed By: Osiel Garcia MD Signed Date/Time: 08/01/23 6:14 pm Transcribed By: DIPESH Transcribed Date/Time: 08/01/23 6:11 pm Vital Signs Most recent to oldest [Reference Range]: 1 2 3 Height 165 cm (08/08/23 11:44 AM) 165 cm (08/08/23 6:57 AM) 165 cm (08/07/23 10:22 PM) Weight 92.1 kg (08/02/23 1:01 AM) 82 kg (08/02/23 12:56 AM) 82 kg (08/01/23 2:20 PM) Oxygen Saturation [94-100 %] 98 % (08/08/23 11:44 AM) 97 % (08/08/23 6:57 AM) 100 % (08/07/23 10:22 PM) Pulse Rate [55-90 bpm] 84 bpm (08/08/23 11:44 AM) 96 bpm *H* (08/08/23 6:57 AM) 83 bpm (08/07/23 10:22 PM) Body Mass Index [18.5-24.99 kg/m2] 30.12 kg/m2 *>HHI* (08/02/23 12:56 AM) 30.12 kg/m2 *>HHI* (08/01/23 2:20 PM) Blood Pressure [90-138/55-84 mm Hg] 109/65mm Hg (08/08/23 11:44 AM) 132/84mm Hg (08/08/23 6:57 AM) 146/96mm Hg *H* (08/07/23 10:22 PM) Respiratory Rate [16-30 br/min] 18 br/min (08/08/23 2:31 PM) 18 br/min (08/08/23 2:04 PM) 18 br/min (08/08/23 11:44 AM) Temperature [96.8-100.4 DegF] 98.1 DegF (08/08/23 11:44 AM) 97.8 DegF (08/08/23 6:57 AM) 98.1 DegF (08/07/23 10:22 PM) Liters per Minute 0 L/min (08/02/23 4:12 AM) 0 L/min (08/02/23 1:00 AM) Mode of Delivery (Oxygen) Room air (08/08/23 11:44 AM) Room air (08/08/23 6:57 AM) Room air (08/07/23 10:22 PM) Blood pressure sites Arm, left (08/08/23 11:44 AM) Arm, left (08/08/23 6:57 AM) Arm, left (08/07/23 10:22 PM) Temperature Route Oral (08/08/23 11:44 AM) Oral (08/08/23 6:57 AM) Oral (08/07/23 10:22 PM) Dry Weight 92.1 kg (08/02/23 1:01 AM) 91 kg (08/02/23 12:56 AM) 82 kg (08/01/23 2:20 PM) Weight Obtained Via Bed scale (08/02/23 1:01 AM) Patient/family stated (08/01/23 2:20 PM) Dry Weight Obtained Via Bed scale (08/02/23 1:01 AM) Bed scale (08/02/23 12:56 AM) Patient/family stated (08/01/23 2:20 PM) Social History Social History Type Response Smoking Status Current every day sm oker; Tobacco user in household: Yes entered on: 05/01/14 Sex Admission evaluation note * Eric GALLEGOS, Nikky Sandoval: MODIFY, PERFORM, MODIFY, MODIFY Event Display: Admission Note Authored Date: [id number] Patient: ??SIMA SCHAEFER ? Age:??43 Years?Sex:??Female?:??1980?? Chief Complaint/Reason for Consultation abdominal pain, nausea, vomiting, diarrhea. History of Present Illness ??The patient is a??43-year-old female with past medical history of chronic pancreatitis, alcohol abuse disorder, alcohol dependence, depression, gastritis, PTSD who presents to??the??emergency department with abdominal pain. ??Patient reports that the pain started around 5 days ago, slowly worsened. ??She reports epigastric pain, right upper quadrant pain, as well as nausea, vomiting, and diarrhea. ??Patient reports this is how her normal chronic pancreatitis presents. ??She attempted to come to the emergency department sooner;?? however,?? she has been watching her neighbors puppy and has been unable to make it to the emergency department. ??Patient reports decreased appetite, and has notbeen able to keep much down over the past few days.?? The patient reports??that her??last ??drink was on her birthday.?? Previous to that she had not twan drinking that much.?Patient endorses that she has had alcohol withdrawal seizures, with the last known one over 6 months ago.?? The??patient denies any fever, chills, shortness of breath, chest pain. Patient also endorses cough for the last few days as well. ?? In the ED, the patient is afebrile with stable vital signs.?? CT abdomen??demonstrates??no acuteabnormality in the abdomen or pelvis, sequela of chronic pancreatitis without acute peripancreatic stranding or fluid collection, possible cystitis, and??severe hepatic steatosis..?? Laboratory data shows Cl 93, glucose 110, AST 120, ALT 81, Lactate improving from 5.7-> 2.4.?? The patient was started on a CIWA scale.?? She received??lorazepam and Dilaudid in the ED.?She is admitted for pancreatitis, alcohol withdrawal.? Review of Systems Constitutional:??No weight loss, fever, chills, weakness or fatigue. Allergy/Immune: Denies any??Eczema or hives. Eyes:??No visual loss, blurred vision, double vision or yellow sclera ENT:??No hearing loss, sneezing, congestion, runny nose or sore throat. Respiratory:??No shortness of breath, cough or sputum production. Cardiovascular:??No chest pain, chest pressure or chest discomfort. No palpitations or pedal edema. Gastrointestinal:??Nausea, vomiting,??diarrhea,??abdominal pain.?? No??blood in stool. Genitourinary:??No burning micturition. No urinary frequency or incontinence. Neurologic:??No headache, dizziness, syncope, unilateral weakness, ataxia, numbness or tingling in the extremities. No change in bowel or bladder control. Musculoskeletal:??No muscle pain, back pain, joint pain or stiffness. Hematologic/Lymphatics:??No bleeding or bruising. No painful lymph nodes. Skin:??No rash or itching. Endocrine:??No reports of sweating. No cold or heat intolerance. No polyuria or polydipsia. Psychiatric:??No depression or anxiety. Objective Vital Signs?? Temperature: 97.5 DegF (08/02/23 04:12:00) Temperature Route: Oral (08/02/23 04:12:00) Pulse Rate: 79 bpm (08/02/23 04:12:00) Respiratory Rate: 19 br/min (08/02/23 04:12:00) Systolic Blood Pressure: 112 mm Hg (08/02/23 04:12:00) Diastolic Blood Pressure: 81 mm Hg (08/02/23 04:12:00) Blood pressure sites: Arm, right (08/02/23 04:12:00) Mean Arterial Pressure: 91 mm Hg (08/02/23 04:12:00) Pulse Pressure: 31 mm Hg (08/02/23 04:12:00) Oxygen Saturation: 95 % (08/02/23 04:12:00) Liters per Minute: 0 L/min (08/02/23 04:12:00) Mode of Delivery (Oxygen): Room air (08/02/23 04:12:00) Early Warning Score: 4 (08/02/23 04:12:51) ? Intake/Output? 07/31 22:57 08/01 07:00 07/31 07:00 07/30 07:00 07/29 07:00 ?? 08/01 05:34 08/01 05:34 08/01 06:59 07/31 06:59 07/30 06:59 Intake ? 60 ?0 ? 60 ?0 ?0 Output ?200 ?0 ?200 ?0 ?0 Net Total ? -140 ?0 ? -140 ?0 ?0 ? Urine Count ?1 ?0 ?1 ?0 ?0 ? Physical Exam Constitutional: Alert, in no distress. Mental Status: Oriented to person, place and time. Head: Normocephalic. Eyes: Pupils are equal, round and reactive to light. Extraocular muscles intact. Ear, Nose and Throat: Oropharynx clear, mucous membranes moist. Ears and nose without masses, lesions or deformities. Trachea midline. Neck: Supple, Full range of motion. Respiratory: Clear to auscultation. No wheezing, rales or rhonchi. Cardiovascular: S1 S2 regular. No murmurs, rubs or gallops. Gastrointestinal: Abdomen soft, epigastric??tenderness,??non-distended. Normal bowel sounds. No pulsatile mass.?? Genitourinary: No costovertebral angle tenderness. Neurologic: Cranial nerves II-XII grossly intact. No focal neurological deficits. Flexor plantar response. Moves all extremities spontaneously. Sensation intact bilaterally. Skin: No rashes or lesions. No petechiae or purpura.?? Musculoskeletal: No cyanosis or clubbing. No gross deformities. Normal range of motion. Heme/Lymphatics/Immun: Palpation of neck reveals no swelling or tenderness of neck nodes.?? Psychiatric: Normal mood and affect Assessment/Plan Assessment:??The patient is a??43-year-old female with past medical history of chronic pancreatitis, alcohol abuse disorder, alcohol dependence, depression, gastritis, PTSD who presents to??the??emergency department with abdominal pain.??Patient reports that the pain started around 5 days ago, slowly worsened.??She reports epigastric pain, right upper quadrant pain, as well as nausea, vomiting, and diarrhea.??Patient reports this is how her normal chronic pancreatitis presents.??She attempted to come to the emergency department sooner;??however,??she has been watching her neighbors puppy and has been unable to make it to the emergency department.??Patient reports decreased appetite, and hasnot been able to keep much down over the past few days.??The patient reports??that her??last??drinkwas on her birthday.??Previous to that she had not twan drinking that much.?Patient endorses thatshe has had alcohol withdrawal seizures, with the last known one over 6 months ago.??The??patient denies any fever, chills, shortness of breath, chest pain. Patient also endorses cough for the last few days as well. ?? In the ED, the patient is afebrile with stable vital signs.??CT abdomen??demonstrates??no acute abnormality in the abdomen or pelvis, sequela of chronic pancreatitis without acute peripancreatic stranding or fluid collection, possible cystitis, and??severe hepatic steatosis..??Laboratory data showsCl 93, glucose 110, AST 120, ALT 81, Lactate improving from 5.7-> 2.4.??The patient was started on a CIWA scale.??She received??lorazepam and Dilaudid in the ED.?She is admitted for pancreatitis, alcohol withdrawal.? Chronic pancreatitis (K86.1):?? Pancreatitis (K85.90):?43-year-old female with past medical history of chronic pancreatitis, alcohol abuse disorder, alcohol dependence, depression, gastritis, PTSD who presents to??the??emergency department with abdominal pain.??Patient reports that the pain started around 5 days ago, slowly worsened.??She reports epigastric pain, right upper quadrant pain, as well as nausea, vomiting, and diarrhea.??Patient reportsthis is how her normal chronic pancreatitis presents. In the ED, the patient is afebrile with stable vital signs.??CT abdomen??demonstrates??no acute abnormality in the abdomen or pelvis, sequela of chronic pancreatitis without acute peripancreatic stranding or fluid collection, possible cystitis, and??severe hepatic steatosis..??Laboratory data showsCl 93, glucose 110, AST 120, ALT 81, Lactate improving from 5.7-> 2.4. -Keep NPO for now; advance diet as tolerated. -prn Dilaudid for pain. -Continue Creon. ?? Alcohol abuse (F10.10):?? Alcohol withdrawal (F10.939):?? -Continue CIWA. -Ativan per CIWA scale. -Continue folic acid, MV, pyridoxine and thiamine, ?? Depression (F32.A):?? PTSD (post-traumatic stress disorder) (F43.10):?? -Continue duloxetine, Aripiprazole, Bupropion. lamotrigine, trazodone, doxepin and prazosin.? Gastritis (K29.70):?? -Continue PPI. ?? Diet:??NPO for now. ?? VTE Prophylaxis:??Encourage ambulation. ?? Code Status:??Presumed full code. ?? Discharge Planning:?? -OMN- pancreatitis. ? Histories Allergies Allergies ?(Active and Proposed Allergies Only) ibuprofen? (Severity: Unknown severity, Onset: Unknown) acetaminophen? (Severity: Unknown severity, Onset: Unknown) Bee Stings? (Severity: Unknown severity, Onset: Unknown) Pollen? (Severity: Unknown severity, Onset: Unknown) ? Past Medical History/Problem List Active Problems??(28) Abdominal pain, epigastric Abnormal uterine bleeding Acute [...] Mass of right breast Menometrorrhagia Mood disorder Obese class I Pancreatitis, chronic Post traumatic stress disorder (PTSD) [...] Electronic Cigarette/Vaping Details:??Electronic Cigarette Use: Never. ? Psychosocial History ? Family History Mother: COPD Father: Alcoholism; [...] the morning and 2 tablets at bedtime HydrOXYzine (hydrOXYzine hydrochloride 25 mg oral tablet)?1?tab(s)?25?Milligram?By Mouth?4 times a day Lamotrigine (lamotrigine 25 mg oral tablet)?75?Milligram?3?tablet?By Mouth?Daily at bedtime?for 90?Days Lorazepam (LORazepam 1 mg oral tablet)?1?tab(s)?1?Milligram?By Mouth?3 times a day?as needed?as needed for anxiety?for 30?Days Melatonin (melatonin 3 mg oral tablet)?1?tab(s)?3?Milligram?By Mouth?Daily at bedtime Multivitamin (multivitamin Multiple Vitamins oral tablet)?1?tab(s)?By Mouth?Daily?for 30?Days Pancrelipase (Creon 36,000 units oral delayed release capsule)?1?capsule?By Mouth?3 times a day Pantoprazole (pantoprazole 40 mg oral delayed release tablet)?1?tab(s)?By Mouth?Daily Prazosin (prazosin 5 mg oral capsule)?5?Milligram?1?capsule?By Mouth?Daily at bedtime?for 90?Days Trazodone (traZODone 100 mg oral tablet)?100?Milligram?1?tablet?By Mouth?Daily atbedtime?for 90?Days?TAKE 1 TABLET BY MOUTH EVERY NIGHT AT BEDTIME ? Inpatient Medications Medications (28) Active SCHEDULED: (16) Aripiprazole 10mg Tablet (Abilify 10 mg oral tablet) ??10 mg, By Mouth, Daily at bedtime BuPROPion XL 300 mg Tablet (Wellbutrin XL Tablet) ??300 mg, By Mouth, Daily Doxepin 25 mg Capsule (Doxepin Capsule) ??50 mg, By Mouth, Daily at bedtime Folic Acid 1 mg Tablet (Folic Acid Tablet) ??1 mg, By Mouth, Daily Gabapentin 300 mg Capsule (gabapentin 300 mg oral capsule) ??600 mg, By Mouth, 3 times a day LamoTRIGINE 25 mg Tablet (lamotrigine 25 mg oral tablet) ??75 mg, By Mouth, Daily at bedtime Multivitamin Therapeutic / Minerals Tablet (Multivit Therapeutic/Minerals Tablet) ??1 tablet, By Mouth, Daily NaCl 0.9% Flush 3ml (NaCL 0.9% Flush) ??3 mL, IV Push, Every 8 hours Nicotine 7 mg / 24 hour Patch (Nicotine Topical) ??7 mg, Topically, Daily Pancrelipase 20,000 unit Capsule (Pancrelipase Capsule) ??20,000 units 1 capsule, By Mouth, 3 timesa [...] (LR 1,000 mL) ??1,000 mL, IV Infusion, 150 mL/hr PRN: (11) Dextromethorphan-Guaifenesin 20 mg-200 mg/10 mL Liqu UD (Robitussin DM Liquid) ??10 mL, By Mouth, Every 4 hours Docusate Sodium 100 mg Capsule (Docusate Sodium Capsule) ??100 mg 1 capsule, By Mouth, 2 times a day HYDROmorphone 1 mg/mL Inj Syringe (Dilaudid Inj) ??1 mg 1 mL, IV Push Slowly, Every 4 hours Lorazepam 1 mg Tablet (Ativan Tablet) ??1 mg, By Mouth, Every 2 hours Lorazepam 2 mg Tablet (Ativan Tablet) ??2 mg, By Mouth, Every 2 hours Lorazepam 2 mg Tablet (LORazepam Tablet) ??2 mg, By Mouth, Every hour Melatonin 3 mg Tablet (Melatonin Tablet) ??3 mg, By Mouth, Daily at bedtime NaCl 0.9% Flush 3ml (NaCL 0.9% Flush) ??3 mL, IV Push, Every 8 hours Polyethylene Glycol 17 Gm Powder (MiraLax Powder) ??17 Gm 1 pack/packet, By Mouth, Daily Senna Tablet ??8.6 mg 1 tablet, By Mouth, 2 times a day Simethicone 80 mg Chewable Tablet (Simethicone Tablet) ??80 mg, Chew, 3 times a day ? Results Recent Labs BLOOD COUNT & DIFF WBC 8.4 k/mm3 ()?? 08/01/2023 14:53 RBC 4.87 m/mm3 ()?? 08/01/2023 14:53 Hgb 15.0 Gm/dL ()?? 08/01/2023 14:53 Hct 44.2 % ()?? 08/01/2023 14:53 MCV 90.8 femtoliters ()?? 08/01/2023 14:53 MCH 30.8 pg ()?? 08/01/2023 14:53 MCHC 33.9 g/dL ()?? 08/01/2023 14:53 Platelet Count 252 k/mm3 ()?? 08/01/2023 14:53 RDW-SD 44.2 femtoliters ()?? 08/01/2023 14:53 MPV 9.2 femtoliters (Low)?? 08/01/2023 14:53 Nucleated RBC (Automated) 0.0 #/100 WBC'S ()?? 08/01/2023 14:53 Abs. NRBC 0.0 k/mm3 ()?? 08/01/2023 14:53 Abs. Neut 6.1 k/mm3 ()?? 08/01/2023 14:53 Abs. Lymph 1.4 k/mm3 ()?? 08/01/2023 14:53 Abs. [place] 0.8 k/mm3 ()?? 08/01/2023 14:53 Abs. Eo 0.0 k/mm3 ()?? 08/01/2023 14:53 Abs. Baso 0.0 k/mm3 ()?? 08/01/2023 14:53 Neut % 73.2 % ()?? 08/01/2023 14:53 Lymph % 16.6 % ()?? 08/01/2023 14:53 [place] % 9.1 % ()?? 08/01/2023 14:53 Eos % 0.2 % ()?? 08/01/2023 14:53 Baso % 0.4 % ()?? 08/01/2023 14:53 Imm Gran 0.5 % ()?? 08/01/2023 14:53 Abs. Imm Gran 0.0 k/mm3 ()?? 08/01/2023 14:53 ?? CHEM GENERAL Sodium 136 mmol/L ()?? 08/01/2023 14:53 Potassium 4.0 mmol/L ()?? 08/01/2023 14:53 Chloride 93 mmol/L (Low)?? 08/01/2023 14:53 Bicarbonate Level 27 mmol/L ()?? 08/01/2023 14:53 Anion Gap 16 ()?? 08/01/2023 14:53 Glucose Level 110 mg/dL (High)?? 08/01/2023 14:53 Beta Hydroxybutyrate 0.29 mmol/L (High)?? 08/01/2023 17:21 BUN 4 mg/dL (Low)?? 08/01/2023 14:53 Creatinine-Blood 0.8 mg/dL ()?? 08/01/2023 14:53 Estimated GFR Creatinine 100 ML/MIN/1.73 M2 ()?? 08/01/2023 14:53 Calcium 9.5 mg/dL ()?? 08/01/2023 14:53 Protein, Total 7.3 Gm/dL ()?? 08/01/2023 14:53 Albumin 4.6 Gm/dL ()?? 08/01/2023 14:53 AG Ratio 1.7 ()?? 08/01/2023 14:53 Alkaline Phosphatase 94 units/L ()?? 08/01/2023 14:53 Lipase 13 units/L ()?? 08/01/2023 14:53 AST (SGOT) 120 units/L (High)?? 08/01/2023 14:53 ALT (SGPT) 81 units/L (High)?? 08/01/2023 14:53 Bilirubin, Total 0.9 mg/dL ()?? 08/01/2023 14:53 Lactate 2.4 mmol/L (High)?? 08/01/2023 22:40 ?? HEME OTHER Hold Blue Top SPECIMEN DISCARDED AFTER 4 HOURS. ()?? 08/01/2023 17:55 ?? UA/URINALYSIS Appear/Color, Urine LIGHT YELLOW ()?? 08/02/2023 04:05 Specific [place], Urine 1.019 ()?? 08/02/2023 04:05 pH, Urine 7.0 ()?? 08/02/2023 04:05 Albumin, Urine NEGATIVE ()?? 08/02/2023 04:05 Glucose, Urine NEGATIVE ()?? 08/02/2023 04:05 Ketones, Urine NEGATIVE ()?? 08/02/2023 04:05 Bilirubin, Urine NEGATIVE ()?? 08/02/2023 04:05 Hemoglobin, Urine NEGATIVE ()?? 08/02/2023 04:05 Nitrite, Urine NEGATIVE ()?? 08/02/2023 04:05 Leukocyte, Urine NEGATIVE ()?? 08/02/2023 04:05 Urobilinogen NORMAL mg/dL ()?? 08/02/2023 04:05 WBC's, Urine 1 /HPF ()?? 08/02/2023 04:05 RBC's, Urine <1 /HPF ()?? 08/02/2023 04:05 Squamous Epith 1 /HPF ()?? 08/02/2023 04:05 Mucus SLIGHT /LPF ()?? 08/02/2023 04:05 Hold Urine Culture Testing available 48 hours from time of collection. ()?? 08/02/2023 04:05 ?? URINE OTHER Est Creatinine Clearance 79.78 mL/min ()?? 08/01/2023 16:04 ?? VIROLOGY COVID-19 by RT-PCR NEGATIVE ()?? 08/01/2023 19:00 ? Hospital Progress note * Hayde Torres RN: PERFORM, SIGN, VERIFY Event Display: Progress Note Hospital Authored Date: Patient: SIMA SCHAEFER Age: 43 years Sex: Female : 1980 Associated Diagnoses: None Author: Hayde Torres RN Findings Problem Related to Alteration in Integumentary : Alteration in Integumentary/new 08/07/2023 11:00 EDT Alteration in Integumentary Related to Cellulitis Goals & Outcomes, Integumentary Pt will maintain adequate fluid & nutritional balance, Pt will maintain intact skin integrity, Wound will progress towards healing Interventions, Integumentary Encourage & assist pt to change position frequently, Encourage & assist with range of motion exercises, Encourage family participation in pt's care as they are able, Ensure relief modes are on mattress surface & utilized, Keep bed as flat as tolerated to reduce shearing, Keep linen clean, dry and wrinkle free, Keep skin clean & dry, Monitor reddened areas for continued or increasing reddness, Record extent of impaired skin integrity, Use pressure dispersing devices as appropriate Goals/Interventions, Integumentary Yes Integumentary, Problem Start 08/07/2023 11:36 Reviewed plan with, Integumentary Patient Patient Progression, Integumentary Plan Initiation . Nursing Data Integumentary Data. : Integumentary Data. 08/07/2023 20:26 EDT Skin Color Normal for ethnicity Skin Description Dry, Fragile Skin Temperature Warm Skin Integrity Intact Skin Turgor Elastic Mucous Membrane Color [place] Mucous Membrane Description Moist Integumentary WNL except . Vital Signs : VITAL SIGNS SECTION 08/07/2023 22:22 EDT Temperature 98.1 DegF Temperature Route Oral Pulse Rate 83 bpm Respiratory Rate 17 br/min Systolic Blood Pressure 146 mm Hg H Diastolic Blood Pressure 96 mm Hg H Blood pressure sites Arm, left Mean Arterial Pressure 113 mm Hg Pulse Pressure 50 mm Hg Oxygen Saturation 100 % Mode of Delivery (Oxygen) Room air . Evaluation P- Alteration in integumentary R/T cellulitis I- See nursing interventions E- Pt. A+Ox4, verbally appropriate making her needs known. Pt. on antibiotic for cellulitis right forearm with superficial thrombus. Right forearm skin firm, increase warmth to touch, swollen and painful. Pt. medicated at 2009 with oxycodone short-term effects per Pt. PRN lorazepam request by pt. for anxiety given with fair effects. Warm compress to right arm, Pt. reported warm compress made her pain worse. Cool compress applied to right arm with improvement per Pt. 2300 pt. weeping reporting pain to right arm severe and request to have provider page for dose of Dilaudid inj. Paged out to covering provider regarding Pt. reports of severe pain and request for Dilaudid inj. Order placed for oxycodone 5 mg 1x dose. Pt. noted sleeping oxycodone 5 mg x1 dose not given at this time. 29 Pt. awake reporting sever pain to right arm. Her PRN dose of oxycodone 7.5 mg was due. Pt. medicated at 36 with oxycodone 7.5 mg. Pt. was noted sleeping when checked on for pain reassessment, arousable from sleep. Will continue to reassess. . * Miguelina Mckeon MD: PERFORM, MODIFY Event Display: Progress Note Hospital Authored Date: Patient: ??SIMA SCHAEFER ? Age:??43 Years?Sex:??Female?:??1980?? Subjective still some nausea??and abd pain?? has weaned off IV hydromorphone; still on po??oxycodone PRN; encouraged her to take nausea medication as needed also has intensified bowel regimen available?? increasing her po??intake gradually? she has been??elevating??the R arm (with superficial thrombophlebitis) and has cool packs and warm compresses ordered ?? Review of Systems Objective Vital Signs?? Temperature: 97.9 DegF (08/07/23 04:00:00) Temperature Route: Oral (08/07/23 04:00:00) Pulse Rate: 86 bpm (08/07/23 04:00:00) Respiratory Rate: 16 br/min (08/07/23 11:24:00) Systolic Blood Pressure: 120 mm Hg (08/07/23 04:00:00) Diastolic Blood Pressure: 78 mm Hg (08/07/23 04:00:00) Blood pressure sites: Arm, left (08/07/23 04:00:00) Mean Arterial Pressure: 85 mm Hg (08/06/23 14:17:00) Pulse Pressure: 42 mm Hg (08/07/23 04:00:00) Oxygen Saturation: 95 % (08/07/23 04:00:00) Mode of Delivery (Oxygen): Room air (08/07/23 04:00:00) Early Warning Score: 4 (08/07/23 11:25:09) ? Physical Exam General:??alert, conversant, NAD MMM, no epistaxis RRR no JVD resp non labored,??comfortable on??RA, sat is??95%?? abd soft, still w/ epigastric discomfort ext warm, the R forearm has continued erythema at site??of (prior??IV??access) extending up slightly beyond the antecubital fossae; warm/well perfused; edema slightly better; tender but not fluctuantor exquisitely tender; pulses strong and equal; she has normal ROM; no IV on that arm now no new focal deficits; speech clear, no tremor Results Test Name Test Result Date/Time Creatinine-Blood 0.9 mg/dL 08/03/2023 00:30 EDT Assessment/Plan ??This is a 43-year-old woman with complex hx including chronic pancreatitis, alcohol abuse disorder, alcohol dependence, depression, gastritis, and PTSD, who presented to the emergency department with abdominal pain. This began > 5 days ago, slowly worsened. She reports epigastric pain, right upper quadrant pain, as well as nausea, vomiting, and diarrhea. Patient reports this is how her normal chronic pancreatitis presents. She finally came to the ER because she was concerned about dehydration. Patient reports decreased appetite, and has not been able to keep much down over the past few days. The patient reports that her last alcoholic drink was on her birthday. She has had alcohol withdrawal seizures, with the last known seizure over 6 months ago. She was admitted for acute on chronic pancreatitis, with significant dehydration and lactic acidosis. Her lactate trended down from 5.7 to 2.4 with IV fluids. Gradually improving, now advancing diet. ?? Chronic pancreatitis (K86.1): Pancreatitis (K85.90): Lactate improved from 5.7-> 2.4 with IV fluids Continue gentle IV fluids did not tolerate diet; revert to clears stopped IV dilaudid this weekend; has po oxycodone available PRN; I let her know that this would bestopped prior to d/c resume pancreatic enzyme supplement once eating well again ?? Superficial thrombus RUE (I80.9): She developed superficial thrombophlebitis of RUE s/p IV access; due to expanding erythema, have started a course of cephalexin for non-purulent cellulitis continue usual supportive care including elevation, compresses, and monitor response/progress. she does not tolerate NSAIDs, so those were not ordered ?? Alcohol abuse (F10.10): Alcohol withdrawal (F10.939): CIWA 0-1 overnight; no IV lorazepam PRNs are ordered; anticipate she can stop CIWA monitoring in another 24 hrs -Ativan per CIWA scale (also takes lorazepam TID PRN at home; caution not to mix this with ETOH!) -Continue folic acid, MV, pyridoxine and thiamine ?? Appreciate Addiction team input: ...DSM-V Diagnoses: - Alcohol Use Disorder, Severe ??- Opioid Use Disorder, in sustained remission ??- History of cocaine use ?? Recommendations: ??- Would initiate Naltrexone 50mg PO qd for cravings upon discontinuation of current opioid regimen. Could defer to PCP if needed. ??- Could continue to discuss power and recovery superintendent/resource coordination as hospitalization progresses... ? Depression (F32.A): PTSD (post-traumatic stress disorder) (F43.10): -Continue duloxetine, Aripiprazole, lamotrigine, trazodone, doxepin and prazosin. resumed home lorazepam TID PRN anxiety as well per her request; no signs of over-sedation? Gastritis (K29.70): Continue PPI ? VTE Prophylaxis: Encourage ambulation, PCBs, Lovenox SQ ? Code Status: Full Pt hopes to be able to leave tomorrow, if tolerating diet no services needed ?? * Elvia Goff RN: PERFORM, SIGN, VERIFY Event Display: Progress Note Hospital Authored Date: [id number] Patient: SIMA SCHAEFER Age: 43 years Sex: Female : 1980 Associated Diagnoses: None Author: Elvia Goff RN Findings Problem Related to Alteration in Gastrointestinal : Alteration in Gastrointestinal Func/new 08/07/2023 11:00 EDT Alteration in GI status Related to Pancreatitis Goals & Outcomes, Gastrointestinal Nutritional intake is adequate for metabolic needs, Pt will achieve normal/improved fluid balance, Pt will have a bowel movement prior to discharge, Pt will maintain adequate GI function appropriate for pt, Pt will tolerate age appropriate diet prior to discharge Interventions, Gastrointestinal Assess/monitor abdomen for distention, tenderness, Assess/monitor abdominal girth & bowel function, Assess/monitor bowel pattern, bowel sounds, flatus, Assess/monitor number of bowel movements, Assess/monitor color, quantity, quality, consistency of stoo, Assess/monitor effects of re-hydration, Assess/monitor intake & output, Assess if pt tolerating diet, Teach Pt/caregiver diet & give copy of dietary instructions, Teach Pt/caregiver on bowel elimination interventions, Teach Pt/caregiver re: importance of bowel regime, Teach Pt/caregiver re: nutritional intake & dietary restrict, Teach/encourage use of incentive spirometer Goals/Interventions, Gastrointestinal Yes Gastrointestinal, Problem Start 08/05/2023 2:04 Reviewed plan with, Gastrointestinal Patient Patient Progression, Gastrointestinal Pt progressing according to plan . Alteration in Integumentary : Alteration in Integumentary/new 08/07/2023 11:00 EDT Alteration in Integumentary Related to Cellulitis Goals & Outcomes, Integumentary Pt will maintain adequate fluid & nutritional balance, Pt will maintain intact skin integrity, Wound will progress towards healing Interventions, Integumentary Encourage & assist pt to change position frequently, Encourage & assist with range of motion exercises, Encourage family participation in pt's care as they are able, Ensure relief modes are on mattress surface & utilized, Keep bed as flat as tolerated to reduce shearing, Keep linen clean, dry and wrinkle free, Keep skin clean & dry, Monitor reddened areas for continued or increasing reddness, Record extent of impaired skin integrity, Use pressure dispersing devices as appropriate Goals/Interventions, Integumentary Yes Integumentary, Problem Start 08/07/2023 11:36 Reviewed plan with, Integumentary Patient Patient Progression, Integumentary Plan Initiation . Nursing Data Gastrointestinal Data. : Gastrointestinal Data. 08/07/2023 9:00 EDT Abdomen Soft LLQ Tenderness At rest LUQ Tenderness At rest Bowel Sounds LUQ Present Bowel Sounds RUQ Present Bowel Sounds LLQ Present Bowel Sounds RLQ Present Last Bowel Movement 08/06/2023 GI WNL except . Integumentary Data. : Integumentary Data. 08/07/2023 11:33 EDT Sensory Perception No impairment Moisture Rarely moist Activity Walks frequently Mobility No limitations Nutrition Excellent Friction and Shear No apparent problem Lux Score 23 Nursing Care Plan initiated/updated Not applicable 08/07/2023 11:31 EDT Skin Integrity Intact Integumentary WNL Forearm Right Skin Abnormality Type: Cellulitis Wound Assessment Activity: Reassessment Skin Abnormality Color: Red Wound Dressing: Open to air Wound Surrounding Tissue: Erythema, Induration 08/07/2023 9:00 EDT Skin Symptoms Other: R forearm infiltrate Skin Color Normal for ethnicity Skin Integrity Intact Integumentary WNL except . Narrative/Incidental Please see kirby for further detail. Pt with warm, tender and indurated R forearm. New orders for PO ABX, warm compress and elevation. Provided education to patient to compress on and off. PRN meds given for anxiety with good affect. Mom visiting at the bedside. Call doherty within reach, she is able to make her needs known.. Consult note * Bob REINA, Alvaro: PERFORM, MODIFY, MODIFY, MODIFY, MODIFY Event Display: Consultation Note Authored Date: Patient: ??SIMA SCHAEFER ? Age:??43 Years?Sex:??Female?:??1980?? Chief Complaint/Reason for Consultation Alcohol Use Disorder History of Present Illness ?? Consult Requested by: Miguelina Mckeon,??MD Consult completed by: Alvaro Rojas, and??Selvin Craig,? Sima Schaefer is a 43 y/o female with hx of chronic pancreatitis, alcohol use disorder, gastritis, Bipolar disorder by history, and PTSD, who presented to the emergency department with abdominal pain that was found to be related to her chronic pancreatitis??in the setting of??increased alcohol use. ??She was treated with??opioid medication for??intense pain??and??fluid resuscitated. Pt states that she has been drinking a lot for the last week or so since her birthday, but had beensober for the preceding few months. She expresses a great deal of remorse about relapsing, saying that the pain from her chronic pancreatitis is not worth it and that this is the last straw. 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 However when she is busy she often doesn't drink at all. She is not interested in a long-term inpatient addiction treatment, since it would interfere with her work. However she is interested in pharmacologic assistance, saying she is very adherent with hermeds. She says she understands how important her psychiatric meds in particular are for her. Uses [employer] to stay organized. Mood has been mostly stable recently, denies any SI/HI. ?? Substance Use Hx: Alcohol: Long hx of use starting at age 12. Became problematic in her early 30s when she had small amounts every day. In mid-late 30s she suffered some difficult family/friend losses and began to drink far more, up to 1 pint/day. Most recently she went through a difficult few months at the end of 2022 where she was drinking heavily, was eventually hospitalized in early April 2023 at [facility] and after discharge was mostly stable until her birthday on [birth year]. For the last 8 days, she has been drinking up to 10 nips/day of vodka. Tobacco: Longtime smoker, but Bupropion has helped a lot. Now smokes 1 cigarette per day, if that. Opiates: Has history of opioid abuse ~15 years ago, was on prescription oxycodone for ~5 years but was apparently able to quit cold turkey. Stimulants: Denies current use Review of Systems Pertinent positives as listed above in HPI. ??Otherwise, remainder of review of systems negative. Objective Vital Signs?? Temperature: 97.8 DegF (08/03/23 13:47:00) Temperature Route: Oral (08/03/23 13:47:00) Pulse Rate:??102 bpm??High (08/03/23 13:47:00) Respiratory Rate: 18 br/min (08/03/23 15:43:00) Respiratory Rate: 18 br/min (08/03/23 15:43:00) Systolic Blood Pressure: 115 mm Hg (08/03/23 13:47:00) Diastolic Blood Pressure:??87 mm Hg??High (08/03/23 13:47:00) Blood pressure sites: Arm, left (08/03/23 13:47:00) Mean Arterial Pressure: 96 mm Hg (08/03/23 13:47:00) Pulse Pressure: 28 mm Hg (08/03/23 13:47:00) Oxygen Saturation: 97 % (08/03/23 13:47:00) Mode of Delivery (Oxygen): Room air (08/03/23 13:47:00) Early Warning Score: 3 (08/03/23 15:45:06) ? Physical Exam Mental Status Exam Appearance: This is a female dressed in hospital gown,??NAD, appears older than stated age, overweight Eye contact: appropriate Attitude: cooperative with pleasant demeanor?? Motor Activity:??no tremors, no psychomotor agitation or??slowing Mood: I'm okay I guess Affect: congruent, full range, supple motility Speech: normal rate, tone and prosody?? Perception: No delusions, AVH, paranoia, or abnormal thought content elicited. Orientation: intact?? Memory: intact Thought Process: Linear and goal directed Thought Content: Guilt for her starting to drink again, change oriented Insight: fair Judgment: fair Suicidality/Self-destructive Behavior: denies SI/SIB, future oriented Homicidality/Violence: denies ?? MSK Exam:??able to move all 4 extremities spontaneously. No rigidity noted.?? Assessment/Plan In brief, this is a 43 y/o female with hx of chronic pancreatitis, alcohol use disorder, gastritis,Bipolar disorder by history, and PTSD, who presented to the emergency department with abdominal pain that was found to be related to her chronic pancreatitis??in the setting of??increased alcohol use. Sima is clearly??willing to participate in treatment??and is demonstrates fair insight into her problematic alcohol use.??However, she may not be fully at the Action stage of change, since??she??expressed some resistance to the idea that she may have to stop drinking alcohol entirely.?? Since she is currently amenable to taking medication, would start her on naltrexone once her opioidregimen is discontinued. She??expressed preference for PO rather than STROUD.??States she is??able to adhere to her pills on a regular basis. ?? DSM-V Diagnoses: - Alcohol Use Disorder, Severe - Opioid Use Disorder, in sustained remission - History of cocaine use ?? Recommendations: -??Would initiate Naltrexone 50mg PO qd for cravings upon discontinuation of current opioid regimen. Could defer to PCP if needed. - Could continue to discuss power and recovery superintendent/resource coordination as hospitalization progresses ? Case and plan discussed with attending physician, Dr.??Kiara. ?? Alvaro Rojas DO PGY-1 Pager #[phone] Histories Allergies Allergies ?(Active and Proposed Allergies Only) ibuprofen? (Severity: Unknown severity, Onset: Unknown) acetaminophen? (Severity: Unknown severity, Onset: Unknown) Bee Stings? (Severity: Unknown severity, Onset: Unknown) Pollen? (Severity: Unknown severity, Onset: Unknown) ? Past Medical History/Problem List Active Problems??(28) Abdominal pain, epigastric Abnormal uterine bleeding Acute [...] Mass of right breast Menometrorrhagia Mood disorder Obese class I Pancreatitis, chronic Post traumatic stress disorder (PTSD) Severe alcohol dependence Sprain of ribs ? Social History Alcohol Details:??Use: Current. ??Frequency: [...] Electronic Cigarette/Vaping Details:??Electronic Cigarette Use: Never. ? Medications Home Medications Albuterol (Albuterol (Eqv-ProAir [...] the morning and 2 tablets at bedtime HydrOXYzine (hydrOXYzine hydrochloride 25 mg oral tablet)?1?tab(s)?25?Milligram?By Mouth?4 times a day Lamotrigine (lamotrigine 25 mg oral tablet)?75?Milligram?3?tablet?By Mouth?Daily at bedtime?for 90?Days Lorazepam (LORazepam 1 mg oral tablet)?1?tab(s)?1?Milligram?By Mouth?3 times a day?as needed?as needed for anxiety?for 30?Days Melatonin (melatonin 3 mg oral tablet)?1?tab(s)?3?[place]?By Mouth?Daily at bedtime Multivitamin (multivitamin Multiple Vitamins oral tablet)?1?tab(s)?By Mouth?Daily?for 30?Days Pancrelipase (Creon 36,000 units oral delayed release capsule)?1?capsule?By Mouth?3 times a day Pantoprazole (pantoprazole 40 mg oral delayed release tablet)?1?tab(s)?By Mouth?Daily Prazosin (prazosin 5 mg oral capsule)?5?Milligram?1?capsule?By Mouth?Daily at bedtime?for 90?Days Trazodone (traZODone 100 mg oral tablet)?100?Milligram?1?tablet?By Mouth?Daily atbedtime?for 90?Days?TAKE 1 TABLET BY MOUTH EVERY NIGHT AT BEDTIME ? Inpatient Medications Medications (30) Active SCHEDULED: (16) Aripiprazole 10mg Tablet (Abilify 10 mg oral tablet) ??10 mg, By Mouth, Daily at bedtime BuPROPion XL 300 mg Tablet (Wellbutrin XL Tablet) ??300 mg, By Mouth, Daily Doxepin 25 mg Capsule (Doxepin Capsule) ??50 mg, By Mouth, Daily at bedtime Folic Acid 1 mg Tablet (Folic Acid Tablet) ??1 mg, By Mouth, Daily Gabapentin 300 mg Capsule (gabapentin 300 mg oral capsule) ??600 mg, By Mouth, 3 times a day LamoTRIGINE 25 mg Tablet (lamotrigine 25 mg oral tablet) ??75 mg, By Mouth, Daily at bedtime Multivitamin Therapeutic / Minerals Tablet (Multivit Therapeutic/Minerals Tablet) ??1 tablet, By Mouth, Daily NaCl 0.9% Flush 3ml (NaCL 0.9% Flush) ??3 mL, IV Push, Every 8 hours Nicotine 7 mg / 24 hour Patch (Nicotine Topical) ??7 mg, Topically, Daily Pancrelipase 20,000 unit Capsule (Pancrelipase Capsule) ??20,000 units 1 capsule, By Mouth, 3 timesa [...] By Mouth, Daily at bedtime CONTINUOUS: (1) D5% / NaCL 0.9% (1000 mL) Cont IV 1,000 mL (D5%/NaCl 0.9% 1,000 mL) ??1,000 mL, IV Infusion, 100 mL/hr PRN: (13) Dextromethorphan-Guaifenesin 20 mg-200 mg/10 mL Liqu UD (Robitussin DM Liquid) ??10 mL, By Mouth, Every 4 hours Docusate Sodium 100 mg Capsule (Docusate Sodium Capsule) ??100 mg 1 capsule, By Mouth, 2 times a day HYDROmorphone 1 mg/mL Inj Syringe (Dilaudid Inj) ??1 mg 1 mL, IV Push Slowly, Every 4 hours Lorazepam 1 mg Tablet (Ativan Tablet) ??1 [...] ??3 mg, By Mouth, Daily at bedtime NaCl 0.9% Flush 3ml (NaCL 0.9% Flush) ??3 mL, IV Push, Every 8 hours OxyCODONE 5 mg IR Tablet (oxyCODONE 5 mg oral tablet) ??5 mg, By Mouth, Every 4 hours Polyethylene Glycol 17 Gm Powder (MiraLax Powder) ??17 Gm 1 pack/packet, By Mouth, Daily Senna Tablet ??8.6 mg 1 tablet, By Mouth, 2 times a day Simethicone 80 mg Chewable Tablet (Simethicone Tablet) ??80 mg, Chew, 3 times a day ? Results Recent Labs CHEM GENERAL Sodium 138 mmol/L ()?? 08/03/2023 00:30 Potassium 3.7 mmol/L ()?? 08/03/2023 00:30 Chloride 101 mmol/L ()?? 08/03/2023 00:30 Bicarbonate Level 26 mmol/L ()?? 08/03/2023 00:30 Anion Gap 11 ()?? 08/03/2023 00:30 Glucose Level 145 mg/dL (High)?? 08/03/2023 00:30 BUN 5 mg/dL (Low)?? 08/03/2023 00:30 Creatinine-Blood 0.9 mg/dL ()?? 08/03/2023 00:30 Estimated GFR Creatinine 86 ML/MIN/1.73 M2 ()?? 08/03/2023 00:30 Calcium 8.3 mg/dL (Low)?? 08/03/2023 00:30 Protein, Total 5.6 Gm/dL (Low)?? 08/03/2023 00:30 Albumin 3.6 Gm/dL ()?? 08/03/2023 00:30 AG Ratio 1.8 ()?? 08/03/2023 00:30 Alkaline Phosphatase 64 units/L ()?? 08/03/2023 00:30 Lipase 16 units/L ()?? 08/03/2023 00:30 AST (SGOT) 101 units/L (High)?? 08/03/2023 00:30 ALT (SGPT) 63 units/L (High)?? 08/03/2023 00:30 Bilirubin, Total 0.6 mg/dL ()?? 08/03/2023 00:30 ?? UA/URINALYSIS Appear/Color, Urine LIGHT YELLOW ()?? 08/02/2023 04:05 Specific [place], Urine 1.019 ()?? 08/02/2023 04:05 pH, Urine 7.0 ()?? 08/02/2023 04:05 Albumin, Urine NEGATIVE ()?? 08/02/2023 04:05 Glucose, Urine NEGATIVE ()?? 08/02/2023 04:05 Ketones, Urine NEGATIVE ()?? 08/02/2023 04:05 Bilirubin, Urine NEGATIVE ()?? 08/02/2023 04:05 Hemoglobin, Urine NEGATIVE ()?? 08/02/2023 04:05 Nitrite, Urine NEGATIVE ()?? 08/02/2023 04:05 Leukocyte, Urine NEGATIVE ()?? 08/02/2023 04:05 Urobilinogen NORMAL mg/dL ()?? 08/02/2023 04:05 WBC's, Urine 1 /HPF ()?? 08/02/2023 04:05 RBC's, Urine <1 /HPF ()?? 08/02/2023 04:05 Squamous Epith 1 /HPF ()?? 08/02/2023 04:05 Mucus SLIGHT /LPF ()?? 08/02/2023 04:05 Hold Urine Culture Testing available 48 hours from time of collection. ()?? 08/02/2023 04:05 ?? URINE OTHER Est Creatinine Clearance 70.92 mL/min ()?? 08/03/2023 02:13 ? * Kiara BUTTERFIELD, Selvin Levi: PERFORM Event Display: Consultation Note Authored Date: ATTENDING PSYCHIATRIST NOTE: ??On the day of service, ??Bob presented this case to me. I reviewed the chart, interviewed the patient, and discussed the case with Dr. Rojas. ??I agree with the findings, impression, and recommendations as noted below. ?? 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 Chanel Burton RN - 08/08/2023 15:40 EDT Discharge Level of Care at Discharge : Home/[facility] Patient Left Unit Via : Wheelchair Patient Accompanied Off Unit with : Responsible adult DC Instructions Provided & Signed by Pt : Yes Patient Understands D/C Instructions : Yes Verbalized Understanding of D/C Plan By : Patient Patient Instructions Discharge Signed : Yes Did Pt have Specialty Bed or Wound Vac : No Micheal KEY, Chanel Nikolas - 08/08/2023 12:47 EDT * Miguelina Mckeon MD: PERFORM, MODIFY, MODIFY, MODIFY Event Display: Discharge/Transfer Note Hospital Authored Date: [id number] Patient: ??SIMA SCHAEFER ? Age:??43 Years?Sex:??Female?:??1980?? Patient Information Discharge Location: [facility] Primary Care Physician: Domingo GALLEGOS, Anai Levi Admit Date/Time: 08/01/23 22:57 Discharge Disposition Discharge Disposition: Home: No Services Discharge Diagnosis Lactic acidosis (E87.20) Alcohol abuse (F10.10) Pancreatitis (K85.90) Chronic pancreatitis (K86.1) Depression (F32.A) Gastritis (K29.70) Acute pancreatitis without infection or necrosis, unspecified pancreatitis type (K85.90) Superficial thrombophlebitis (I80.9) Cellulitis of arm (L03.119) PTSD (post-traumatic stress disorder) (F43.10) Alcohol withdrawal (F10.939) _ Discharge Medications Albuterol (Albuterol (Eqv-ProAir HFA) 90 mcg/inh inhalation aerosol)?2?puff(s)?Inhalation?Every 6 hours Aripiprazole (Abilify 10 mg oral tablet)?10?Milligram?1?tablet?By Mouth?Daily at bedtime?for 90?Days BuPROpion (buPROPion 300 mg/24 hours (XL) oral tablet, extended release)?1?tab(s)?300?Milligram?By Mouth?Every 24 hours?for 90?Days Cephalexin (cephalexin monohydrate 500 mg oral capsule)?500?Milligram?By Mouth?Every 6 hours?for 6?Days Doxepin (doxepin 50 mg oral capsule)?1?capsule?50?Milligram?By Mouth?Daily at bedtime?for 90?Days Gabapentin (gabapentin 600 mg oral tablet)?See Instructions?1 tablet in the morning and 2 tablets at bedtime Lamotrigine (lamotrigine 25 mg oral tablet)?75?Milligram?3?tablet?By Mouth?Daily at bedtime?for 90?Days Lidocaine Topical (lidocaine 4% topical cream)?See Instructions?apply 2 x per day to the R forearm, as needed for pain; not to exceed 3 applications in 24 hours Lorazepam (LORazepam 1 mg oral tablet)?1?tab(s)?1?Milligram?By Mouth?3 times a day?as needed?as needed for anxiety?for 30?Days Melatonin (melatonin 3 mg oral tablet)?1?tab(s)?3?Milligram?By Mouth?Daily at bedtime Multivitamin (multivitamin Multiple Vitamins oral tablet)?1?tab(s)?By Mouth?Daily?for [...] AT BEDTIME ? Quality Measures Tobacco Use Treatment:?Cessation Medication Prescribed on Discharge:??Tobacco Cessation Medication Prescribed ? Allergies Allergies ?(Active and Proposed Allergies Only) ibuprofen? (Severity: Unknown severity, Onset: Unknown) acetaminophen? (Severity: Unknown severity, Onset: Unknown) Bee Stings? (Severity: Unknown severity, Onset: Unknown) Pollen? (Severity: Unknown severity, Onset: Unknown) ? PCP Follow-Up/Heads-Up Addiction team advised: ??- Would initiate Naltrexone 50mg PO qd for cravings upon discontinuation of current opioid regimen. Could defer to PCP if needed. ??- Could continue to discuss power and recovery superintendent/resource coordination as hospitalization progresses... Since pt??received opiates on 08/07, could not initiate this yet. Please followup at PCP appt and canconsider this medication at that time Please check CBC/CMP at followup Outpt GI , mental health Future Appointments Monday 4:00 PM EDT ?? With: John GALLEGOS, Megan Hernandez Where: [facility] [address] [place] [address]- Status: Pending Objective This is a 43-year-old woman with complex hx including chronic pancreatitis, alcohol abuse disorder,alcohol dependence, depression, gastritis, and PTSD, who presented to the emergency department withabdominal pain. This began > 5 days ago, slowly worsened. She reports epigastric pain, right upper quadrant pain, as well as nausea, vomiting, and diarrhea. Patient reports this is how her normal c hronic pancreatitis presents. She finally came to the ER because she was concerned about dehydration. She has had alcohol withdrawal seizures, with the last known seizure over 6 months ago. She was admitted for acute on chronic pancreatitis, with significant dehydration and lactic acidosis. Her lactate trended down from 5.7 to 2.4 with IV fluids. Gradually improving, now tolerating diet and eagerto go home. ?? Chronic pancreatitis (K86.1): Pancreatitis (K85.90): Lactate improved from 5.7-> 2.4 with IV fluids Advanced to low fat diet stopped IV dilaudid this weekend; has po oxycodone available PRN in hospital; I let her know that this would be stopped prior to d/c resumed ??pancreatic enzyme supplement? Superficial thrombophlebitis (I80.9): She developed superficial thrombophlebitis of RUE s/p IV access; due to expanding erythema, have started a course of cephalexin for non-purulent cellulitis continue usual supportive care including elevation, compresses, and topical lidocaine PRN she does not tolerate NSAIDs, so those were not ordered ?? Alcohol abuse (F10.10): Alcohol withdrawal (F10.939): resolved. -Continue folic acid, MV, pyridoxine and thiamine Cautioned to avoid any alcohol, and never mix alcohol with lorazepam? Appreciate Addiction team input: ...DSM-V Diagnoses: - Alcohol Use Disorder, Severe ??- Opioid Use Disorder, in sustained remission ??- History of cocaine use ?? Recommendations: ??- Would initiate Naltrexone 50mg PO qd for cravings upon discontinuation of current opioid regimen. Could defer to PCP if needed. ??- Could continue to discuss power and recovery superintendent/resource coordination as hospitalization progresses... Since pt??received opiates on 08/07, could not initiate this yet. Please followup at PCP appt and canconsider this medication at that time ? Depression (F32.A): PTSD (post-traumatic stress disorder) (F43.10): no change to her usual home regimen; outpt f/u will be important ?? Gastritis (K29.70): Continue PPI ? VTE Prophylaxis: was-- encourage ambulation, PCBs, Lovenox SQ ? Code Status: Full her will pick her up today ?? Vital Signs?? Temperature: 97.8 DegF (08/08/23 06:57:00) Temperature Route: Oral (08/08/23 06:57:00) Pulse Rate:??96 bpm??High (08/08/23 06:57:00) Respiratory Rate: 17 br/min (08/08/23 08:57:00) Systolic Blood Pressure: 132 mm Hg (08/08/23 06:57:00) Diastolic Blood Pressure: 84 mm Hg (08/08/23 06:57:00) Blood pressure sites: Arm, left (08/08/23 06:57:00) Mean Arterial Pressure: 100 mm Hg (08/08/23 06:57:00) Pulse Pressure: 48 mm Hg (08/08/23 06:57:00) Oxygen Saturation: 97 % (08/08/23 06:57:00) Mode of Delivery (Oxygen): Room air (08/08/23 06:57:00) Early Warning Score: 2 (08/08/23 08:59:01) ? . Physical Exam alert, much more energetic/comfortable today; just ate breakfast?? EOMI, anicteric, MMM, no epistaxis?? RRR no JVD resp non labored, comfortable on room air abd soft, + epigastric tenderness, no peritoneal signs Ext warm/well perfused; the R arm has improving edema and??erythema, no fluctuance or exquisite tenderness; coke still cleaner; erythema has not expanded, and is more faint?? No focal deficits apparent, no tremor or signs of ETOH w/d?? Patient Education Titles WebMD Ignite Patient Education - Depression?? Web[employer] Ignite Patient Education - Understanding Anxiety Disorders?? Web[employer] Patient Education - Cephalexin Oral Capsule?? WebMD Ignite Patient Education - Discharge Instructions for Cellulitis?? WebMD Ignite Patient Education - Cellulitis?? WebMD Ignite Patient Education - Alcohol Abuse?? WebMD Ignite Patient Education - Discharge Instructions for Acute Pancreatitis?? Web[employer] Patient Education - Pancreatitis?? Follow-Up Appointments Added Follow Up ?Time Frame ?Comments Joey Kim?1 month?Call for a GI followup; ok to see a different GI team if you already have one Quitting smoking is not easy, but it is the absolute best thing you could do ??for your health! Congratulations on taking steps to stay smoke-free. drink plenty of fluids; return for evaluation if you notice decreased urination, or have vomiting or other worrisome symptoms Please followup with all of your usual doctors. Return if you have bleeding, fever, cannot eat/drink, or have any other worrisome symptoms Please return if you have fever, chest pain, trouble breathing, neck pain, vision changes, or any other worrisome symptoms. Anai Lane?3 to 5 days Patient Instructions Continue to avoid all alcohol use. Followup with your PCP and mental health support team.??Take care of yourself!?? Continue to elevate your R arm, and apply warm compresses and cool compresses as needed for comfort.?? If you have any worsening symptoms, seek medical re-evaluation.? Home Health Face to Face ^HomeHealthFTF Results Microbiology ?? COVID-19 (Novel Coronavirus), Rapid PCR?? Completed?? Source: Nasal Body Site: Nose Collected Dt/Tm: 08/01/2023 17:17 Last Updated Dt/Tm: 08/01/2023 20:34 ? 45_ minutes spent on discharge * Micheal KEY, Chanel Connro: PERFORM Event Display: Patient Education/Instruction Authored Date: [id number] Inpatient Adult Discharge Instructions. [place] [id number] Name: SIMA SCHAEFER : 1980?? Visit: 08/01/2023 22:57?? Current Date: 08/08/2023 12:48 ?? Account: [id number]?? Inpatient Adult Discharge Instructions We would like [...] and their families. Surveys are administered by [employer], R17. ?? If further treatment with your primary care physician or another doctor is recommended, it is important for you to keep the appointment. Call your primary care physician or return to the Emergency Department immediately if your condition worsens, fails to improve, or new symptoms develop. If you need to find a doctor, you can call [facility] for a referral at [phone] or toll free at [phone] [employer] ([phone]) or log in to [email or web address].. ?? [facility], in keeping with [facility] guidance, no longer requires face masks [...] a health care rommel of your choosing. [employer] is a website that allows you to securely view your medical information including your hospital discharge summary, office visit summaries, medications and follow-up visits. You can also request appointments, renew medications, and request access to your medical information using a health care rommel of your choosing, or just ask a question. You can enroll at [email or web address] or register during your next office visit. You have been discharged from [facility], Patient Care Unit: S3??. If you have any questions regarding these instructions, including results of studies pending, afteryou leave, please call us and we will be happy to assist you 28/11. [facility] Your Care Team Attending Physician Miguelina Mckeon MD?? Consulting Providers Miguelina Mckeon MD?? Discharging Providers Miguelina Mckeon MD Reason for Your Visit chronic pancreatitis?? Your Diagnosis Lactic acidosis Alcohol abuse Pancreatitis Depression Gastritis Acute pancreatitis without infection or necrosis, unspecified pancreatitis type Superficial thrombophlebitis Cellulitis of arm Alcohol withdrawal PTSD (post-traumatic stress disorder) Tests Performed Below is a partial list of the tests performed during your hospitalization. You may have had other tests and procedures not included in this list. Please discuss all test results with your provider. Beta Hydroxybutyrate CBC w/ Differential Comprehensive Metabolic Panel COVID-19 (Novel Coronavirus), Rapid PCR HCG PLUS BETA Hold Blue Top Tube Lactate Level Lactic Acid Level Lipase Urinalysis w/hold for Urine Culture CT Abd/Pelvis W/ IV Contrast Only Doppler Venous Upper Ext Right (US) XR Chest 2 Views Frontal and Lat Add On Lab Order?? Primary Care Provider Domingo GALLEGOS, Anai Levi? Advance Directive Health Care Proxy on File Yes - Health Care Proxy Discharge Vitals Temperature: 98.1 DegF Height: 165 cm Pulse Rate: 84 bpm Weight: 92.1 kg Respiratory Rate: 18 br/min Body Mass Index:??30.12 kg/m2??Critical Systolic Blood Pressure: 109 mm Hg Body surface area: 1.94 Diastolic Blood Pressure: 65 mm Hg ?? Oxygen Saturation: 98 % ?? Studies Pending All studies ordered during this hospital stay have been completed unless listed below. Please discuss all pending results with your provider listed above in these instructions. ?? Add On Lab Order?? What to do next Instructions From Your Doctor Continue to avoid all alcohol use. Followup with your PCP and mental health support team.??Take care of yourself!?? Continue to elevate your R arm, and apply warm compresses and cool compresses as needed for comfort.?? If you have any worsening symptoms, seek medical re-evaluation.? Orders?? to take oxycodone while in hospital, but not planning to prescribe at d/c., ??08/08/23 9:55:00 EDT?? Prescriptions??, ??08/08/23 9:55:00 EDT?? Scheduled Follow-Up Appointments Monday 4:00 PM EDT ?? With: John GALLEGOS, Megan Hernandez Where: [facility] [address] [place] [address]- Status: Pending You Need to Schedule the Following Appointments Follow Up with??Joey Kim When:??Within 1 month Why: Call for a GI followup; ok to see a different GI team if you already have one Where: [address] [facility] [address] [place] [address]- Business (1) Follow Up with??Quitting smoking is not easy, but it is the absolute best thing you could do for your health! Congratulations on taking steps to stay smoke-free. Follow Up with??drink plenty of fluids; return for evaluation if you notice decreased urination, orhave vomiting or other worrisome symptoms Follow Up with??Please followup with all of your usual doctors. Return if you have bleeding, fever,cannot eat/drink, or have any other worrisome symptoms Follow Up with??Please return if you have fever, chest pain, trouble breathing, neck pain, vision changes, or any other worrisome symptoms. Follow Up with??Anai Lane When:??Within 3 to 5 days Where: [address] [place] [address] [place] [address]- [facility] (1) Discharge Medications SIMA SCHAEFER :1980 Visit Date:08/01/2023 Medications: Please continue your medications until treatment is completed or stopped by your provider. Medications not listed below should be discontinued. Discuss any questions related to medications with your provider. What How Much When Instructions Next Dose New Cephalexin (cephalexin monohydrate 500 mg oral capsule) 500 Milligram Oral Every 6 hours Duration: 6 Days Pickup at [facility] 3 08/07 today at 6:30pm New Lidocaine Topical (lidocaine 4% topical cream) See instructions apply 2 x per day to the R forearm, as needed for pain; not to exceed 3 applications in 24 hours ?? Pickup at [facility] 3 as needed New Nicotine (nicotine 7 mg/ 24 hr transdermal film, extended release) 1 patch(es) Topically Daily Duration: 28 Days Pickup at [facility] 3 08/08 tomorrow morning Changed Aripiprazole (Abilify 10 mg oral tablet) 1 tab(s) Oral Daily at Bedtime Duration: 90 Days 08/07 tonight Changed Lorazepam (LORazepam 1 mg oral tablet) 1 tab(s) Oral 3 times a day as needed for as needed for anxiety Duration: 30 Days as needed Unchanged Albuterol (Albuterol (Eqv-ProAir HFA) 90 mcg/ inh inhalation aerosol) 2 puff(s) Inhalation Every 6 hours resume home schedule Unchanged BuPROpion (buPROPion 300 mg/ 24 hours (XL) oral tablet, extended release) 1 tab(s) Oral Every 24 hours Duration: 90 Days 08/08 tomorrow morning Unchanged Doxepin (doxepin 50 mg oral capsule) 1 capsule Oral Daily at Bedtime Duration: Days 08/07 tonight Unchanged Gabapentin (gabapentin 600 mg oral tablet) See instructions 1 tablet in the morning and 2 tablets at bedtime ?? 2 tonight Unchanged Lamotrigine (lamotrigine 25 mg oral tablet) 3 tab(s) Oral Daily at Bedtime Duration: 90 Days 08/07 tonight Unchanged Melatonin (melatonin 3 mg oral tablet) 1 tab(s) Oral Daily at Bedtime 08/07 tonight Unchanged Multivitamin (multivitamin Multiple Vitamins oral tablet) 1 tab(s) Oral Daily Duration: 30 Days 08/08 tomorrow morning Unchanged Pancrelipase (Creon 36,000 units oral delayed release capsule) 1 capsule Oral 3 times a day 08/07 today at 5pm Unchanged Pantoprazole (pantoprazole 40 mg oral delayed release tablet) 1 tab(s) Oral Daily 08/08 tomorrow morning Unchanged Prazosin (prazosin 5 mg oral capsule) 1 capsule Oral Daily at Bedtime Duration: 90 Days 08/07 tonight Unchanged Trazodone (traZODone 100 mg oral tablet) 1 tab(s) Oral Daily at Bedtime Duration: 90 Days TAKE 1 TABLET BY MOUTH EVERY NIGHT AT BEDTIME ?? 4/2 tonight Pharmacy Information [facility] 3: [address] [place], [place] [id number] [phone] ?? What How Much When Comments Stop Taking BusPIRone (busPIRone 15 mg oral tablet) TAKE 1 TABLET BY MOUTH THREE TIMES DAILY ?? Stop Taking HydrOXYzine (hydrOXYzine hydrochloride 25 mg oral tablet) 1 tab(s) Oral 4 times a day Prescription Given During Visit Cephalexin (cephalexin monohydrate 500 mg oral capsule) - 500 mg, By Mouth, Every 6 hours, # 24 capsule, 0 Refills, [place] [address] [phone]?? Lidocaine Topical (lidocaine 4% topical cream) - , # 30 Gm, 0 Refills, apply 2 x per day to the R forearm, as needed for pain; not to exceed 3 applications in 24 hours, [place] [address] [phone]?? Nicotine (nicotine 7 mg/24 hr transdermal film, extended release) - 1 patch, Topically, Daily, # 28patch, 0 Refills, [address] [address] [phone]?? Laboratory Results Below is a partial list of the most recent Laboratory test results done prior to this discharge. You may have had other tests and procedures not included in this list. Please discuss all test resultswith your provider. Est Creatinine Clearance - 70.92 mL/min (08/03/2023) Beta Hydroxybutyrate (08/01/2023) ???Beta Hydroxybutyrate - 0.29 mmol/L CBC w/ Differential (08/01/2023) ???WBC - 8.4 k/mm3???RBC - 4.87 m/mm3???Hgb - 15.0 Gm/dL???Hct - 44.2 %???MCV - 90.8 femtoliters???MCH - 30.8 pg???MCHC - 33.9 g/dL???Platelet Count - 252 k/mm3???RDW-SD - 44.2 femtoliters???MPV - 9.2 femtoliters???Nucleated RBC (Automated) - 0.0 #/100 WBC'S???Abs. NRBC - 0.0 k/mm3???Abs. Neut - 6.1 k/mm3???Abs. Lymph - 1.4 k/mm3???Abs. [place] - 0.8 k/mm3???Abs. Eo - 0.0 k/mm3???Abs. Baso - 0.0 k/mm3???Neut % - 73.2 %???Lymph % - 16.6 %???[place] % - 9.1 %???Eos % - 0.2 %???Baso % - 0.4 %???Imm Gran- 0.5 %???Abs. Imm Gran - 0.0 k/mm3 Comprehensive Metabolic Panel (08/03/2023) ???Sodium - 138 mmol/L???Potassium - 3.7 mmol/L???Chloride - 101 mmol/L???Bicarbonate Level - 26 mmol/L???Anion Gap - 11???Glucose Level - 145 mg/dL???BUN - 5 mg/dL???Creatinine-Blood - 0.9 mg/dL???Estimated GFR Creatinine - 86 ML/MIN/1.73 M2???Calcium - 8.3 mg/dL???Protein, Total - 5.6 Gm/dL???Albumin - 3.6 Gm/dL???AG Ratio - 1.8???Alkaline Phosphatase - 64 units/L???AST (SGOT) - 101 units/L???ALT (SGPT) - 63 units/L???Bilirubin, Total - 0.6 mg/dL COVID-19 (Novel Coronavirus), Rapid PCR (08/01/2023) ???COVID-19 by RT-PCR - NEGATIVE HCG PLUS BETA (08/01/2023) ? ?BHCG (HCG & Beta) - 2 mIU/mL Hold Blue Top Tube (08/01/2023) ???Hold Blue Top - SPECIMEN DISCARDED AFTER 4 HOURS. Lactate Level (08/01/2023) ???Lactate - 2.6 mmol/L Lactic Acid Level (08/01/2023) ???Lactate - 2.4 mmol/L Lipase (08/03/2023) ???Lipase - 16 units/L Urinalysis w/hold for Urine Culture (08/02/2023) ???Appear/Color, Urine - LIGHT YELLOW???Specific [place], Urine - 1.019???pH, Urine - 7.0???Albumin, Urine - NEGATIVE???Glucose, Urine - NEGATIVE???Ketones, Urine - NEGATIVE???Bilirubin, Urine - NEGATIVE???Hemoglobin, Urine - NEGATIVE???Nitrite, Urine - NEGATIVE???Leukocyte, Urine - NEGATIVE???Urobi linogen - NORMAL? ?WBC's, Urine - 1 /HPF? ?RBC's, Urine - <1 /HPF? ?Squamous Epith - 1 /HPF? ?Mucus - SLIGHT???Hold Urine Culture - Testing available 48 hours from time of collection. Allergies (NKA means No Known Allergies) Bee Stings Pollen acetaminophen ibuprofen Problems Active Problems??(28) Abdominal pain, epigastric?? Abnormal uterine bleeding?? Acute pancreatitis?? Alcohol dependence?? Alcohol dependence in early, early partial, sustained full, or sustained partial remission?? Alcohol use disorder, severe, in early remission, in controlled environment, dependence?? Alcohol withdrawal-induced seizure?? Alcoholic hepatitis?? Alcoholic liver disease?? Attempted suicide - hanging?? Chronic low back pain?? Cold sore?? Depression?? Encounter for preventive health examination?? Endometriosis?? Gastritis?? Iron deficiency anemia?? Low back pain without sciatica?? Macrocytic anemia?? Major depressive disorder, recurrent episode, moderate degree?? Mass of right breast?? Menometrorrhagia?? Mood disorder?? Obese class I?? Pancreatitis, chronic?? Post traumatic stress disorder (PTSD)?? Severe alcohol dependence?? Sprain of ribs?? Education Materials Below is the list of Educational Leaflet Providered with your Discharge Instructions. WebMD Ignite Patient Education - Depression?? WebMD Ignite Patient Education - Understanding Anxiety Disorders?? WebMD Ignite Patient Education - Cephalexin Oral Capsule?? WebMD Ignite Patient Education - Discharge Instructions for Cellulitis?? [employer]ite Patient Education - Cellulitis?? [employer] Patient Education - Alcohol Abuse?? [employer] Patient Education - Discharge Instructions for Acute Pancreatitis?? [employer] Patient Education - Pancreatitis?? Valuables and Belongings I fully understand and agree that [facility] accepts no responsibility for all my [...] Review of Valuable and Belonging List: With patient, With witness Date for Pt to Sign Valuables/Belongings: 08/08/23 11:44:00 ?? Other Discharge Information ? Case Management Discharge Plan?? Discharge Plan?? Discharge Level of Care at Discharge: Home/[facility] ?? Pulmonary Rehab Status?? Pulmonary Rehab Discharge [...] are strongly encouraged to quit. Please call [facility] [facility] at [phone] or [phone] ([phone]) or log in to [email or web address] for referrals to smoking cessation programs. ?? 988 Suicide & Crisis Lifeline is available 28/11 if you or someone you know needs to find a reason to keep living. By calling 168 you'll be connected to a skilled, trained counselor at a crisis center in your area. INPATIENT DISCHARGE INSTRUCTIONS SIGNATURE PAGE SIMA SCHAEFER Location:[facility] Registration Date and Time:08/01/2023 22:57 EDT Primary Care Physician: Anai Lane NP, Attending Physician: Miguelina Mckeon MD, I SIMA SCHAEFER, have received the above patient education materials/instructions and have verbalized understanding. If ambulance or transport services are being used I further acknowledge being given a choice of service. ?? If you need to contact me, please call me at this number: . Patient/Rib Knitter Name: Patient/Rib Knitter Signature: Relationship to Patient: Witness Name/Signature: Date: * Workman MD, Miguelina: SIGN, PERFORM, SIGN, VERIFY Event Display: Patient Education Handout Authored Date: * Micheal KEY, Chanel Connor: PERFORM Event Display: Patient Education Leaflets Authored Date: Nicotine Transdermal System ?? [id number] Nicotine Transdermal System Brands: Habitrol, Nicoderm C-Q Uses For quitting smoking. ?? Instructions DO NOT take this medicine by mouth. Avoid placing the patch near the breast. Remove the patch after 24 hours. Keep the medicine at room temperature. Avoid heat and direct light. This patch should not be cut. Wash your hands before and after handling this medicine. Remove old patch before applying new one. Change the location of the new patch. If you have vivid dreams or trouble sleeping, you may remove the patch before going to sleep. Ask your doctor or pharmacist about locations on your body where this patch can be used. Remove the plastic liner that protects the sticky side of the patch before applying to the skin. Be sure the area of skin is clean and dry before putting on a new patch. Apply the patch to a clean, dry, hairless area. Avoid skin that is red, scraped, or damaged. Press the patch firmly for a few seconds to make sure it stays in place. After removing the patch, fold it together and discard it out of reach of children and pets. Please ask your doctor or pharmacist how you can safely dispose of used patches. If the skin under the patch becomes irritated, remove the patch. Do not apply a new patch to the area until the skin feels better. If the patch falls off, apply a new a patch on a different location of the body. Tell your doctor and pharmacist about all your medicines. Include prescription and zjyf-xrr-dnvmspeihdnzklqe, vitamins, and herbal medicines. If you need to stop this medicine, your doctor may wish to gradually reduce the dosage before stopping. Do not use more than 1 patch at any one time. ?? Cautions Tell your doctor and pharmacist if you ever had an allergic reaction to a medicine. Avoid smoking while on this medicine. Smoking may increase your risk for stroke, heart attack, blood clots, high blood pressure, and other diseases of the heart and blood vessels. Tell the doctor or pharmacist if you are , planning to be , or . Please tell all your doctors and dentists that you are on this medicine before they provide care. ?? Side Effects The following is a list of some common side effects from this medicine. Please speak with your doctor about what you should do if you experience these or other side effects. ??? skin irritation where medicine is applied If you have any of the following side effects, you may be getting too much medicine. Please contactyour doctor to let them know about these side effects. ??? diarrhea ??? dizziness ??? nausea and vomiting ??? rapid heartbeat A few people may have an allergic reaction to this medicine. Symptoms can include difficulty breathing, skin rash, itching, swelling, or severe dizziness. If you notice any of these symptoms, seek medical help quickly. ?? Extra Please speak with your doctor, nurse, or pharmacist if you have any questions about this medicine. ?? [email or web address] ([email or web address] IMPORTANT NOTE: This document tells you briefly how to take your medicine, but it does not tell youall there is to know about it. Your doctor or pharmacist may give you other documents about your medicine. Please talk to them if you have any questions. Always follow their advice. There is a more complete description of this medicine available in Arabic. Scan this code on your smartphone or tablet or use the web address below. You can also ask your pharmacist for a printout. If you have any questions, please ask your pharmacist. The display and use of this drug information is subject to Terms of Use. Copyright(c) 2022 [employer]. ?? [employer]. All rights reserved. This information is not intended as a substitute for professional medical care. Always follow your healthcare professional's instructions. ?? * Miguelina Mckeon MD: PERFORM Event Display: Patient Education Leaflets Authored Date: [id number] Depression ?? [id number] Depression Depression is a very common mental health problem. It's not just a state of being unhappy or sad. It's a true disease. The cause seems to be linked to a change in chemicals that send signals in the brain. These things increase a person???s risk of depression: ??? A family history of depression, alcoholism, or suicide ??? Chronic illness ??? Chronic pain ???Migraine headaches ??? High emotional stress Depression may be easier to see in others. You may have a hard time seeing it in yourself. It can show in many physical and emotional ways. These include: ??? Loss of appetite ??? Overeating ??? Not being able to sleep ??? Sleeping too much ??? A lot of tiredness not linked to physical activity ??? Restlessness or irritability ??? Slowness of movement or speech ??? Feeling sad or withdrawn ??? Loss of interest in things you once enjoyed ??? Trouble??concentrating, remembering,??or making decisions ??? Thoughts of harming or killing yourself, or thoughts that life is not worth living ??? Low self-esteem The treatment for depression may include both medicine and psychotherapy. Antidepressants can ease symptoms. They can also make it easier for you to do daily tasks. Therapy can offer emotional support. It can also help you understand things that may be causing the depression. Home care ??? Ongoing care and support help people manage this disease. Find a healthcare provider and therapist who meet your needs. Get help when you feel like you may be getting ill. ??? Be kind to yourself. Make it a point to do things that you enjoy. This may be gardening, walking in nature, or going to a movie. Reward yourself for small successes. ??? Take care of your body. Eat a balanced diet. Eat foods low in saturated fat. Eat a lot of fruits and vegetables. Exercise at least 3 times a week for 30 minutes. Even mild to moderate exercise like brisk walking can make you feel better. ??? Take medicine as prescribed. Don't stop your medicine or change the dose unless you talk with your healthcare provider. ??? Once you start medicine, expect your symptoms to get better slowly. Depression will lift over time. It doesn't get better right away. Ask your healthcare provider how long it will take for a medicine to start working. ??? Don't share your medicine. Don???t use someone else's medicine. ??? Tell your healthcare providers all the medicines you take. This includes prescription and dpjt-fzv-wysovwu medicines. It includes vitamins and herbal supplements. Some supplements caninteract with medicines. They can cause dangerous side effects. Ask your pharmacist about medicine interactions when you have questions. ??? Don't make major decisions until you feel better. This incl udes things such as a job change, a divorce, or a marriage. ??? Don't drink alcohol. It can make depression worse. ??? Talk with your family and??trusted friends??about your feelings and thoughts.??Ask them to help you notice behavior changes early. You can then get help and, if needed, your medicine can be changed. ??? Talk with your healthcare provider if you are not getting better. They may change your medicine or have you try another treatment. ?? Follow-up care Follow up with your healthcare provider as advised. ?? Crisis care Call 988 if you have thoughts of harming yourself or others. When you call or text 988, you will beconnected to trained crisis counselors. An online chat option is also available. [employer] is free and available 28/11. 988 counselors will work with 911 to help you get the care you need. Call 911 if you: ??? Have trouble breathing ??? Are??very confused ??? Feel very drowsy or have??trouble awakening ??? Faint ??? Have new chest pain that becomes more severe, lasts longer, or spreadsinto your shoulder, arm, neck, jaw, or back ?? When to get medical care Call your healthcare provider right away if any of these happen: ??? Your symptoms get worse ??? You have extreme depression, fear, anxiety, or anger toward yourself or others ??? You feel out of control ??? You feel that you may try to harm yourself or another ??? You hear voices other people don't hear ??? You see things other people don't see ??? You don't sleep or eat for 3 days in a row ??? Friends or family express concern over your behavior and ask you to get help ?? Last Reviewed Date: 2021 ?? 3485-0766 [employer]. All rights reserved. This information is not intended as a substitute for professional medical care. Always follow your healthcare professional's instructions. ?? * Miguelina Mckeon MD: PERFORM Event Display: Patient Education Leaflets Authored Date: [id number] Understanding Anxiety Disorders ?? 98264 Understanding Anxiety Disorders Almost everyone gets nervous now and then. It???s normal to have knots in your stomach before a test. Or for your heart to beat fast on a first date. But an anxiety disorder is much more than a simple case of nerves. In fact, its symptoms may be overwhelming. But treatment can ease many of these symptoms. Talking with your healthcare provider is the first step. What are anxiety disorders? An anxiety disorder causes very strong feelings of panic and fear. These feelings may occur for no clear reason. And they tend to happen again and again. They may prevent you from coping with life. They may cause you great distress. You may then stay away from anything that triggers your fear. In extreme cases, you may never leave the house. Anxiety disorders may cause other symptoms, such as: ??? Obsessive thoughts that are unwanted and you can???t control ??? Constant nightmares or painful thoughts of the past ??? Upset stomach, sweating, and muscle tension ??? Trouble sleeping or focusing ?? What causes anxiety disorders? Anxiety disorders tend to run in families. For some people, childhood abuse or neglect may play a role. For others, stressful life events or trauma may trigger these disorders. Anxiety can trigger low self-esteem and poor coping skills. ?? Types of anxiety disorders ??? Panic disorder. This causes a very strong fear of being in danger. ??? Phobias. These are extreme fears of certain things, places, or events. ??? Obsessive-compulsive disorder (OCD). This makes you have unwanted thoughts and urges. You also may do certain things over and over. ??? Posttraumatic stress disorder (PTSD). This occurs in people who have been through a terrible ordeal. It can cause nightmares and flashbacks about the event. ??? Generalized anxiety disorder. This causes constant worry. It can greatly disrupt your life. ?? Getting better You may believe that nothing can help you. Or you might fear what others may think. But most anxiety symptoms can be eased with treatment. Having an anxiety disorder is nothing to be ashamed of. Mostpeople do best with treatment that combines medicine and individual and group therapy. These aren???t cures. But they can help you live a healthier life. ?? How daily issues affect your health Many things in your daily life impact your health. This can include transportation, money problems,housing, access to food, and childcare. If you can???t get to medical appointments, you may not receive the care you need. When money is tight, it may be difficult to pay for medicines. And living far from a grocery store can make it hard to buy healthy food. If you have concerns in any of these or other areas, talk with your healthcare team. They may know of local resources to assist you. Or they may have a staff person who can help. ?? Last Reviewed Date: 2022 ?? [employer]. All rights reserved. This information is not intended as a substitute for professional medical care. Always follow your healthcare professional's instructions. ?? Patient Care team information Care Team Personnel Name: Elisa Lamar RN Position: [facility] RN Member Role: Primary Care Nurse Name: Zo Segal RN Position: [facility] AMB Nurse Member Role: Primary Care Nurse Name: David Maldonado RN Position: [facility] RN Member Role: Primary Care Nurse Name: Antonia Mtz RN Position: [facility] RN Member Role: Primary Care Nurse Name: Carmina Fuentes RN Position: [facility] RN Member Role: Primary Care Nurse Name: Katelynn Moss RN Position: [facility] RN Member Role: Primary Care Nurse Name: Milla Emmanuel RN Position: [facility] RN Member Role: Primary Care Nurse Name: Carol Min [place] Position: [facility] RN Member Role: Primary Care Nurse Name: Katt Gustafson Position: [facility] RN Member Role: Primary Care Nurse Name: Ashely Pacheco Position: [facility] RN Member Role: Primary Care Nurse Name: Miri Espitia RN Position: [facility] AMB Nurse Member Role: Primary Care Nurse Name: Maksim Hunt III, RN Position: [facility] RN Member Role: Primary Care Nurse Name: Elisa Fields RN Position: [facility] RN Member Role: Primary Care Nurse Name: Anai Lane NP Position: [facility] PCO Associate Professional Member Role: PCP Address: Address: [address] [place] [address] [place] [address]- Name: Aron Mcginnis RN Position: [facility] SN RN Member Role: Primary Care Nurse Name: Natalia Plata RN Position: [facility] RN Member Role: Primary Care Nurse Name: Kacy Barnhart RN Position: [facility] RN Member Role: Primary Care Nurse Name: Guerline Ramirez RN Position: [facility] Onco RN Member Role: Primary Care Nurse Name: Vandana Muniz RN Position: [facility] RN Member Role: Primary Care Nurse Name: Ashlyn Cordova RN Position: [facility] Onco RN Member Role: Primary Care Nurse Name: Jennifer Ignacio RN Position: [facility] RN Member Role: Primary Care Nurse Care Team Related Persons Name: KORY NGO Address: home [address] [address] Name: TEVIN WILL Address: home [address] [place] [address] Name: ALEX WILL Address: home [address] [place] [address] Name: ALEX SCHAEFER Address: home [address] [place] [address]
--- OUTSIDE RECORDS SUMMARY | 2023-09-06 15:48 | XMS_ITS | Continuity of Care Document ---
Author Organization [facility] Address [address] [place] [address]- Care Team Providers Care Gill Tender Name Role Phone Marissa Malik NP Primary Care Physician Encounter [facility] Date(s): 04/12/23 - 05/12/23 [facility] [address] [place], [place] [address] Allergies, Adverse Reactions, Alerts Substance Reaction [...] 02/03/23 13:42:00 EDT, Route to Pharmacy Electronically, [facility] #[id number], 166, cm, 12/16/22 17:39:00 EDT, Height, 77, kg, 12/12/22 16:21:00... Start Date: 02/03/23 Stop Date: 08/02/23 Status: Ordered Albuterol (Eqv-ProAir HFA) 90 mcg/inh inhalation aerosol 2 puffs, Inhalation, Every 6 hours, # 8.5 Gm, 0 Refills, Maintenance, 02/17/23 18:07:00 EDT, [facility] #[id number], Partial fill upon patient request if the [...] 1 Refills, Maintenance, 02/03/23 13:43:00 EDT, Tablet, [facility] #[id number], Partial fill upon patient request if the prescription is for a schedule II opioid drug., 166, cm, 12/16/22 17:... Start Date: 02/03/23 Stop Date: 08/02/23 Status: Ordered Creon 36,000 units oral delayed release capsule 1 capsule, By Mouth, 3 times a day, # 90 capsule, 3 Refills, Maintenance, 06/08/22 9:09:00 EST, [facility] #[id number], Partial fill upon patient request if the prescription is for a schedule IIopioid drug., 1 capsule By Mouth 3 times a day, 165... Start Date: 06/08/22 Status: Ordered doxepin 50 mg oral capsule 1 capsule = 50 mg, By Mouth, Daily at bedtime, # 90 capsule, 1 Refills, Maintenance, 02/03/23 13:43:00 EDT, Capsule, [facility] #[id number], 166, cm, 12/16/22 17:39:00 EDT, Height, 77, kg, 12/12/22 16:21:00 EDT, Dry Weight Start Date: 02/03/23 Stop Date: 08/02/23 Status: Ordered gabapentin 600 mg oral tablet See Instructions, 1 tablet in the morning and 2 tablets at bedtime, # 270 tablet, 1 Refills, Maintenance, 02/03/23 13:43:00 EDT, Tablet, [facility] #[id number], 90 day supply, 166, cm, 12/16/22 17:39:00 [...] Maintenance,02/03/23 13:43:00 EDT, Route to Pharmacy Electronically, [facility] #[id number], Partial fill upon patient request if the prescription is for a sc... Start Date: 02/03/23 Stop Date: 08/02/23 Status: Ordered LORazepam 1 mg oral tablet 1 tablet = 1 mg, By Mouth, 2 times a day, PRN as needed for anxiety, # 60 tablet, 1 Refills, Maintenance, 04/28/23 13:31:00 EST, Tablet, [facility] #[id number], Partial fill upon patient requestif the prescription [...] Maintenance, 10/01/19 11:23:00 EDT, Tablet, [facility], 1 tablet By Mouth Daily,x30 days, [...] Maintenance,02/03/23 13:47:00 EDT, Route to Pharmacy Electronically, [facility] #[id number], 166, cm, 12/16/22 17:39:00 EDT, Height, 77, kg, 12/12/22 16:21:00... Start Date: 02/03/23 Stop Date: 08/02/23 Status: Ordered traZODone 100 mg oral tablet 100 mg, 1, tablet, By Mouth, Daily at bedtime, TAKE 1 TABLET BY MOUTH EVERY NIGHT AT BEDTIME, # 90 tablet, Refills 1, Tot. Refills 1, Maintenance, 02/03/23 13:46:00 EDT, Route to Pharmacy Electronically, [facility] #[id number], Partial fill upon... Start Date: 02/03/23 Stop Date: 08/02/23 Status: Ordered Wellbutrin XL 150 mg/24 hours oral tablet, extended release 1 tablet = 150 mg, By Mouth, Every 24 hours, # 90 tablet, 1 Refills, Maintenance, 02/03/23 13:43:00EDT, XL Tablet, [facility] #[id number], Partial fill upon patient request if the [...] Team Personnel Name: Marissa Malik NP Position: [facility] PCO Associate Professional Member Role: PCP Address: Address: [address] [place] [id number] Name: Elisa Lamar RN Position: [facility] RN Member Role: Primary Care Nurse Name: Zo Segal RN Position: [facility] Nurse Member Role: Primary Care Nurse Name: Antonia Mtz RN Position: [facility] RN Member Role: Primary Care Nurse Name: Milla Emmanuel RN Position: [facility] RN Member Role: Primary Care Nurse Name: Carol Min [place] Position: [facility] RN Member Role: Primary Care Nurse Name: Katt Gustafson Position: [facility] RN Member Role: Primary Care Nurse Name: Ashely Pacheco Position: [facility] RN Member Role: Primary Care Nurse Name: Miri Espitia RN Position: [facility] Nurse Member Role: Primary Care Nurse Name: Maksim Hunt III, RN Position: [facility] RN Member Role: Primary Care Nurse Name: Elisa Fields RN Position: [facility] RN Member Role: Primary Care Nurse Name: Aron Mcginnis RN Position: [facility] RN Member Role: Primary Care Nurse Name: Natalia Plata RN Position: [facility] RN Member Role: Primary Care Nurse Name: Kacy Barnhart RN Position: [facility] RN Member Role: Primary Care Nurse Name: Guerline Ramirez RN Position: [facility] RN Member Role: Primary Care Nurse Name: Ashlyn Cordova RN Position: [facility] Onco RN Member Role: Primary Care Nurse Name: Jennifer Ignacio RN Position: [facility] RN Member Role: Primary Care Nurse Care Team Related Persons Name: TATIANNA NGOOg Address: home [address] [address] Name: TEVIN WILL Address: home [address] [place] [address] Name: ALEX WILL Address: home [address] [place] [address] Name: ALEX ROPER Address: home [address] [place] [address]
--- OUTSIDE RECORDS SUMMARY | 2023-09-06 15:48 | XMS_ITS | Continuity of Care Document ---
Author Organization [facility] [place] Address [address] [place] [address]- Care Team Providers Care Manager Of Medical Name Role Phone Helena GALLEGOS, Marissa Hernandez Primary Care Physician [phone] Encounter [facility] Date(s): 09/01/22 - 10/01/22 [facility] [address], [place] [address] Allergies, Adverse Reactions, Alerts [...] 08/16/22 13:06:00 EDT, Route to Pharmacy Electronically, [facility] #[id number], 165, cm, 07/19/22 13:50:00 EDT, Height, 77.5, kg, 07/19/22 13:50:0... Start Date: 08/16/22 Stop Date: 12/14/22 Status: Ordered acamprosate 333 mg oral delayed release tablet 2 tablet = 666 mg, By Mouth, 3 times a day, # 180 tablet, 0 Refills, Maintenance, 04/19/22 12:37:00EST, CR Tablet, [facility], Partial fill upon patient request if the prescription is for a schedule II opioid drug., 165, cm, 04/19/22 11... Start Date: 04/19/22 Stop Date: 05/19/22 Status: Ordered busPIRone 15 mg oral tablet 1 tablet = 15 mg, By Mouth, 3 times a day, # 90 tablet, 3 Refills, Maintenance, 08/16/22 13:06:00 EDT, Tablet, [facility] #[id number], Partial fill upon patient request if the prescription is for a schedule II opioid drug., 165, cm, 07/19/22 13:5... Start Date: 08/16/22 Stop Date: 12/14/22 Status: Ordered Creon 36,000 units oral delayed release capsule 1 capsule, By Mouth, 3 times a day, # 90 capsule, 3 Refills, Maintenance, 06/08/22 9[facility]09[id number], Partial fill upon patient request if the prescription is for a schedule IIopioid drug., 1 capsule By Mouth 3 times a day, 165... Start Date: 06/08/22 Status: Ordered doxepin 50 mg oral capsule 1 capsule = 50 mg, By Mouth, Daily at bedtime, # 30 capsule, 3 Refills, Maintenance, 08/16/22 13:06:00 EDT, Capsule, [facility] #[id number], 165, cm, 07/19/22 13:50:00 EDT, Height, 77.5, kg, 07/19/22 13:50:00 EDT, Dry Weight Start Date: 08/16/22 Stop Date: 12/14/22 Status: Ordered fluticasone 50 mcg/inh nasal spray See Instructions, SHAKE LIQUID AND USE 1 SPRAY IN EACH NOSTRIL TWICE DAILY, # 15.8 mL, 3 Refills, 03/23/21 16:18:00 EST, [facility] #[id number], SHAKE LIQUID AND USE 1 SPRAY IN EACH NOSTRIL TWICE DAILY, 164, cm, 03/23/21 15:58:00 EST, Height, 86.... Start Date: 03/23/21 Status: Ordered gabapentin 600 mg oral tablet See Instructions, 1 tablet in the morning and 2 tablets at bedtime, # 90 tablet, 3 Refills, Maintenance, 08/16/22 13:07:00 EDT, Tablet, [facility] #[id number], 165, cm, 07/19/22 13:50:00 EDT, Height, 77.5, kg, 07/19/22 13:50:00 EDT, Dry Weight Start Date: 08/16/22 Status: Ordered HYDROmorphone 2 mg oral tablet 1 tablet = 2 mg, By Mouth, Every 6 hours, PRN as needed for pain, # 8 tablet, 0 Refills, Maintenance, 07/19/22 18:31:00 EDT, Tablet, [facility] #[id number], Partial fill upon patient request if the prescription is for a schedule II opioid drug.,... Start Date: 07/19/22 Status: Ordered loperamide 2 mg oral capsule 2 mg, 1, capsule, By Mouth, Every 3 hours, PRN, # 30 capsule, Refills 0, Tot. Refills 0, Acute 04/19/23 11:43:00 EST, Loose Stool, 04/19/22 11:43:00 EST, Route to Pharmacy Electronically, [facility], Partial fill upon patient request if... Start Date: 04/19/22 Stop Date: 04/19/23 Status: Ordered LORazepam 1 mg oral tablet 1 tablet = 1 mg, By Mouth, 3 times a day, PRN as needed for anxiety, # 90 tablet, 3 Refills, Maintenance, 08/16/22 13:07:00 EDT, Tablet, [facility] #[id number], Partial fill upon patient requestif the prescription is for a schedule II opioid elijah... Start Date: 08/16/22 Stop Date: 12/14/22 Status: Ordered multivitamin Multiple Vitamins oral tablet 1 tablet, By Mouth, Daily, # 30 tablet, 1 Refills, Maintenance, 10/01/19 11:23:00 EDT, Tablet, [facility]-[id number], 1 tablet By Mouth Daily,x30 days, 165.1, cm, 10/01/19 8:37:00 EDT, Height, 80.1, kg, 09/19/19 16:30:00 EDT, Dry Weight Start Date: 10/01/19 Stop Date: 11/30/19 Status: Ordered Narcan 4 mg/0.1 mL nasal spray = 4 mg, Nares, Both, Once, # 2 each, 0 Refills, Soft Stop, 04/19/22 12:16:00 EST, [facility], Partial fill upon patient request [...] Maintenance,08/16/22 13:07:00 EDT, Route to Pharmacy Electronically, [facility] #[id number], 165, cm, 07/19/22 13:50:00 EDT, Height, 77.5, kg, 07/19/22 13:50:... Start Date: 08/16/22 Stop Date: 12/14/22 Status: Ordered traMADol 50 mg oral tablet 1 tablet = 50 mg, By Mouth, Every 8 hours, 30 each, TAKE 1 TABLET BY MOUTH EVERY 8 HOURS NEEDED FOR FOR PAIN, # 30 tablet, 0 Refills, Maintenance, 09/02/22 8:19:00 EDT, Tablet, [facility] #[id number], Partial fill upon patient request if the p... Start Date: 09/02/22 Status: Ordered traZODone 100 mg oral tablet 100 mg, 1, tablet, By Mouth, Daily at bedtime, TAKE 1 TABLET BY MOUTH EVERY NIGHT AT BEDTIME, # 30 tablet, Refills 3, Tot. Refills 3, Maintenance, 08/16/22 13:07:00 EDT, Route to Pharmacy Electronically, [facility] #[id number], Partial fill upon... Start Date: 08/16/22 Stop [...] Team Personnel Name: Marissa Malik NP Position: [facility] PCO Associate Professional Member Role: PCP Address: Address: [address] [place] [address] Primary Care [place], [place] [address] Name: Elisa Lamar RN Position: [facility] RN Member Role: Primary Care Nurse Name: Zo Segal RN Position: [facility] RN Member Role: Primary Care Nurse Name: Antonia Mtz RN Position: [facility] RN Member Role: Primary Care Nurse Name: Tiffany Ugalde RN Position: [facility] RN Member Role: Primary Care Nurse Name: Katelynn Moss RN Position: [facility] RN Member Role: Primary Care Nurse Name: Milla Emmanuel RN Position: [facility] SN RN Member Role: Primary Care Nurse Name: Carol Cordova Position: [facility] RN Member Role: Primary Care Nurse Name: Katt Gustafson Position: [facility] RN Member Role: Primary Care Nurse Name: Ashely Pacheco Position: [facility] RN Member Role: Primary Care Nurse Name: Miri Espitia RN Position: [facility] AMB Nurse Member Role: Primary Care Nurse Name: Maksim Hunt III, RN Position: [facility] RN Member Role: Primary Care Nurse Name: Elisa Fields RN Position: [facility] RN Member Role: Primary Care Nurse Name: Aron Mcginnis RN Position: [facility] SN RN Member Role: Primary Care Nurse Name: Natalia Plata RN Position: [facility] RN Member Role: Primary Care Nurse Name: Kacy Barnhart RN Position: [facility] RN Member Role: Primary Care Nurse Name: Guerline Ramirez RN Position: [facility] RN Member Role: Primary Care Nurse Name: Ashlyn Cordova RN Position: [facility] Onco RN Member Role: Primary Care Nurse Name: Jennifer Ignacio RN Position: [facility] RN Member Role: Primary Care Nurse Care Team Related Persons Name: TATIANNA NGOOg Address: [address] [address] Name: TEVIN WILL Address: home [address] [place] [address] Name: ALEX WILL Address: home [address] [place] [address] Name: ALEX ROPER Address: home [address] [place] [address]
--- OUTSIDE RECORDS SUMMARY | 2023-09-06 15:48 | XMS_ITS | Continuity of Care Document ---
Author Organization [facility] Address [address] [place] [address]- Care Team Providers Care Traffic Agent Name Role Phone Helena GALLEGOS, Marissa Hernandez Primary Care Physician Encounter [facility] Date(s): 05/13/22 - 06/12/22 [facility] [address], [place] [address] Allergies, Adverse Reactions, Alerts Substance Reaction [...] 06/10/22 14:19:00 EST, Route to Pharmacy Electronically, [facility] #[id number], 165, cm, 05/25/22 14:24:00 EST, Height, 80, kg, 04/14/22 3:03:00 E... Start Date: 06/10/22 Stop Date: 10/08/22 Status: Ordered acamprosate 333 mg oral delayed release tablet 2 tablet = 666 mg, By Mouth, 3 times a day, # 180 tablet, 0 Refills, Maintenance, 04/19/22 12:37:00EST, CR Tablet, [facility] 3, Partial fill upon patient request if the prescription is for a schedule II opioid drug., 165, cm, 04/19/22 11... Start Date: 04/19/22 Stop Date: 05/19/22 Status: Ordered busPIRone 15 mg oral tablet 1 tablet = 15 mg, By Mouth, 3 times a day, # 90 tablet, 3 Refills, Maintenance, 06/10/22 14:24:00 EST, Tablet, [facility] #[id number], Partial fill upon patient request if the prescription is for a schedule II opioid drug., 165, cm, 05/25/22 14:2... Start Date: 06/10/22 Stop Date: 10/08/22 Status: Ordered Creon 36,000 units oral delayed release capsule 1 capsule, By Mouth, 3 times a day, # 90 capsule, 3 Refills, Maintenance, 06/08/22 9:09:00 EST, [facility] #[id number], Partial fill upon patient request if the prescription is for a schedule IIopioid drug., 1 capsule By Mouth 3 times a day, 165... Start Date: 06/08/22 Status: Ordered doxepin 50 mg oral capsule 1 capsule = 50 mg, By Mouth, Daily at bedtime, # 30 capsule, 3 Refills, Maintenance, 06/10/22 14:20:00 EST, Capsule, [facility] #[id number], 165, cm, 05/25/22 14:24:00 EST, Height, 80, kg, 04/14/22 3:03:00 EST, Dry Weight Start Date: 06/10/22 Stop Date: 10/08/22 Status: Ordered fluticasone 50 mcg/inh nasal spray See Instructions, SHAKE LIQUID AND USE 1 SPRAY IN EACH NOSTRIL TWICE DAILY, # 15.8 mL, 3 Refills, 03/23/21 16:18:00 EST, [facility] #[id number], SHAKE LIQUID AND USE 1 SPRAY IN EACH NOSTRIL TWICE DAILY, 164, cm, 03/23/21 15:58:00 EST, Height, 86.... Start Date: 03/23/21 Status: Ordered gabapentin 600 mg oral tablet See Instructions, 1 tablet in the morning and 2 tablets at bedtime, # 90 tablet, 3 Refills, Maintenance, 06/10/22 14:20:00 EST, Tablet, [facility] #[id number], 165, cm, 05/25/22 14:24:00 EST, Height, 80, kg, 04/14/22 3:03:00 EST, Dry Weight Start Date: 06/10/22 Status: Ordered loperamide 2 mg oral capsule 2 mg, 1, capsule, By Mouth, Every 3 hours, PRN, # 30 capsule, Refills 0, Tot. Refills 0, Acute 04/19/23 11:43:00 EST, Loose Stool, 04/19/22 11:43:00 EST, Route to Pharmacy Electronically, [facility] 3, Partial fill upon patient request if... Start Date: 04/19/22 Stop Date: 04/19/23 Status: Ordered LORazepam 1 mg oral tablet 1 tablet = 1 mg, By Mouth, 3 times a day, PRN as needed for anxiety, # 90 tablet, 3 Refills, Maintenance, 06/10/22 14:21:00 EST, Tablet, [facility] #[id number], Partial fill upon patient requestif the prescription is for a schedule II opioid elijah... Start Date: 06/10/22 Stop Date: 10/08/22 Status: Ordered multivitamin Multiple Vitamins oral tablet 1 tablet, By Mouth, Daily, # 30 tablet, 1 Refills, Maintenance, 10/01/19 11:23:00 EDT, Tablet, [facility], 1 tablet By Mouth Daily,x30 days, 165.1, cm, 10/01/19 8:37:00 EDT, Height, 80.1, kg, 09/19/19 16:30:00 EDT, Dry Weight Start Date: 10/01/19 Stop Date: 11/30/19 Status: Ordered Narcan 4 mg/0.1 mL nasal spray = 4 mg, Nares, Both, Once, # 2 each, 0 Refills, Soft Stop, 04/19/22 12:16:00 EST, [facility], Partial fill upon patient [...] Maintenance,06/10/22 14:21:00 EST, Route to Pharmacy Electronically, [facility] #[id number], 165, cm, 05/25/22 14:24:00 EST, Height, 80, kg, 04/14/22 3:03:00... Start Date: 06/10/22 Stop Date: 10/08/22 Status: Ordered traMADol 50 mg oral tablet 1 tablet = 50 mg, By Mouth, Every 8 hours, 30 each, TAKE 1 TABLET BY MOUTH EVERY 8 HOURS NEEDED FOR FOR PAIN, # 30 tablet, 2 Refills, Maintenance, 05/26/22 8:00:00 EST, Tablet, [facility] #[id number], Partial fill upon patient request if the p... Start Date: 05/26/22 Status: Ordered traZODone 100 mg oral tablet 100 mg, 1, tablet, By Mouth, Daily at bedtime, TAKE 1 TABLET BY MOUTH EVERY NIGHT AT BEDTIME, # 30 tablet, Refills 3, Tot. Refills 3, Maintenance, 06/10/22 14:22:00 EST, Route to Pharmacy Electronically, [facility] #[id number], Partial fill upon... Start Date: 06/10/22 Stop [...] Professional Member Role: PCP Address: Address: [address] [place] [id number] Name: Elisa Lamar RN Position: [facility] [...] Care Nurse Name: Carol Cordova Position: [facility] RN Member Role: Primary Care Nurse Name: Katt Gustafson Position: [facility] RN Member Role: Primary Care Nurse Name: Ashely Pacheco Position: [facility] RN Member Role: Primary Care Nurse Name: Miri Espitia RN Position: [facility] Nurse Member Role: Primary Care Nurse Name: Maksim Hunt III, RN Position: [facility] RN Member Role: Primary Care Nurse Name: Elisa Fields RN Position: [facility] RN Member Role: Primary Care Nurse Name: Aron Mcginnis RN Position: [facility] ED RN W/OE and Tasks Member [...] Persons Name: TATIANNA NGOOg Address: home [address] [address] Name: TEVIN WILL Address: home [address] [place] [address] Name: ALEX WILL Address: [address] [place] [address] Name: ALEX ROPER Address: home [address] [place] [address]
[2023-09-06 15:49] LABS: Alanine Aminotransferase 86 U/L (0-31); Albumin Level 4.1 g/dL (3.5-5.0); Alkaline Phosphatase 84 U/L (39-117); Anion Gap 15 (12-20); Aspartate Amino Transferase 128 U/L (5-31); Bilirubin Total 0.5 mg/dL (0.0-1.0); Blood Urea Nitrogen 5 mg/dL (9-16); Calcium 8.8 mg/dL (8.4-10.2); Carbon Dioxide 25 mmol/L (22-29); Chloride 102 mmol/L (96-108); Creatinine Clr Calc Pharmacy 56.1; Estimated Glomerular Filt Rate 44; Glucose Random 115 mg/dL (60-115); Lipase 16 U/L (8-78); Sodium 138 mmol/L (135-145); Total Protein 7.3 g/dL (6.5-8.0)
--- OUTSIDE RECORDS SUMMARY | 2023-09-06 15:49 | XMS_ITS | Continuity of Care Document ---
Author Organization [facility] Address [address] [place] [id number]- Care Team Providers Care Maintenance Fitter Name Role Phone Helena GALLEGOS, Marissa Hernandez Primary Care Physician Encounter [facility] Date(s): 04/11/22 - 05/28/[address] [address] Attending Physician: Kae GALLEGOS, Roma Lindsey Admitting Physician: Kae GALLEGOS, Roma Lindsey Referring Physician: Kae GALLEGOS, Roma Lindsey Allergies, [...] 03/15/22 11:53:00 EST, Route to Pharmacy Electronically, [facility] #[id number], 165, cm, 02/23/22 23:48:00 EDT, Height, 83, kg, 02/23/22 0:48:00 E... Start Date: 03/15/22 Stop Date: 07/13/22 Status: Ordered acamprosate 333 mg oral delayed release tablet 2 tablet = 666 mg, By Mouth, 3 times a day, # 180 tablet, 0 Refills, Maintenance, 04/19/22 12:37:00EST, CR Tablet, [facility], Partial fill upon patient request if the prescription is for a schedule II opioid drug., 165, cm, 04/19/22 11... Start Date: 04/19/22 Stop Date: 05/19/22 Status: Ordered Creon 36,000 units oral delayed release capsule 1 capsule, By Mouth, 3 times a day, # 90 capsule, 0 Refills, Maintenance, 05/06/22 14:15:00 EST, [facility] #[id number], Partial fill upon patient request if the prescription is for a schedule II opioid drug., 1 capsule By Mouth 3 times a day, 16... Start Date: 05/06/22 Status: Ordered doxepin 50 mg oral capsule 1 capsule = 50 mg, By Mouth, Daily at bedtime, # 30 capsule, 3 Refills, Maintenance, 03/15/22 11:53:00 EST, Capsule, [facility] #[id number], 165, cm, 02/23/22 23:48:00 EDT, Height, 83, kg, 02/23/22 0:48:00 EDT, Dry Weight Start Date: 03/15/22 Stop Date: 07/13/22 Status: Ordered fluticasone 50 mcg/inh nasal spray See Instructions, SHAKE LIQUID AND USE 1 SPRAY IN EACH NOSTRIL TWICE DAILY, # 15.8 mL, 3 Refills, 03/23/21 16:18:00 EST, [facility] #[id number], SHAKE LIQUID AND USE 1 SPRAY IN EACH NOSTRIL TWICE DAILY, 164, cm, 03/23/21 15:58:00 EST, Height, 86.... Start Date: 03/23/21 Status: Ordered gabapentin 600 mg oral tablet See Instructions, 1 tablet in the morning and 2 tablets at bedtime, # 90 tablet, 3 Refills, Maintenance, 03/15/22 11:52:00 EST, Tablet, [facility] #[id number], 165, cm, 02/23/22 23:48:00 EDT, Height, 83, [...] EDT, Tablet, [facility] 1 tablet By Mouth Daily,x30 days, 165.1, cm, 10/01/19 8:37:00 EDT, Height, 80.1, kg, 09/19/19 16:30:00 EDT, Dry Weight Start Date: 10/01/19 Stop Date: 11/30/19 Status: Ordered Narcan 4 mg/0.1 mL nasal spray = 4 mg, Nares, Both, Once, # 2 each, 0 Refills, Soft Stop, 04/19/22 12:16:00 EST, [facility], Partial fill upon [...] Maintenance,03/15/22 11:52:00 EST, Route to Pharmacy Electronically, [facility] #[id number], 165, cm, 02/23/22 23:48:00 EDT, Height, 83, kg, 02/23/22 0:48:00... Start Date: 03/15/22 Stop Date: 07/13/22 Status: Ordered traMADol 50 mg oral tablet 1 tablet = 50 mg, By Mouth, Every 8 hours, 30 each, TAKE 1 TABLET BY MOUTH EVERY 8 HOURS NEEDED FOR FOR PAIN, # 30 tablet, 2 Refills, Maintenance, 05/26/22 8:00:00 EST, Tablet, [facility] #[id number], Partial fill upon patient request if the p... Start Date: 05/26/22 Status: Ordered traZODone 100 mg oral tablet TAKE 1 TABLET BY MOUTH EVERY NIGHT AT BEDTIME Start Date: 04/14/22 Status: Ordered Zoloft 100 mg oral tablet 2 tablet = 200 mg, By Mouth, Daily, # 60 tablet, 1 Refills, Maintenance, 03/15/22 11:52:00 EST, Tablet, [facility] #[id number], 165, cm, 02/23/22 23:48:00 EDT, Height, 83, [...] Team Personnel Name: Marissa Malik NP Position: [facility] PCO Associate Professional Member Role: PCP Address: Address: [address] [place] [id number] Name: Elisa Lamar RN Position: [facility] RN Member Role: Primary Care Nurse Name: Zo Segal RN Position: [facility] RN Member Role: Primary Care Nurse Name: Antonia Mtz RN Position: [facility] RN Member Role: Primary Care Nurse Name: Tiffany Ugalde RN Position: [facility] RN Member Role: Primary Care Nurse Name: Katelynn Moss RN Position: [facility] RN Member Role: Primary Care Nurse Name: Milla Emmanuel RN Position: [facility] AMB Nurse Member Role: Primary Care Nurse Name: Carol Cordova Position: [facility] RN Member Role: Primary Care Nurse Name: Katt Gustafson Position: [facility] RN Member Role: Primary Care Nurse Name: Ashely Pacheco Position: [facility] RN Member Role: Primary Care Nurse Name: Miri Espitia RN Position: [facility] AMB Nurse Member Role: Primary Care Nurse Name: Maksim Hunt III, RN Position: [facility] RN Member Role: Primary Care Nurse Name: Elisa Fields RN Position: [facility] RN Member Role: Primary Care Nurse Name: Aron Mcginnis RN Position: [facility] SN RN Member Role: Primary Care Nurse Name: Natalia Plata RN Position: [facility] RN Member Role: Primary Care Nurse Name: Kacy Barnhart RN Position: [facility] RN Member Role: Primary Care Nurse Name: Guerline Ramirez RN Position: [facility] RN Member Role: Primary Care Nurse Name: Ashlyn Cordova RN Position: [facility] Onco RN Member Role: Primary Care Nurse Name: Jennifer Ignacio RN Position: [facility] RN Member Role: Primary Care Nurse Care Team Related Persons Name: KORY NGO Address: home [address] [address] Name: TEVIN WILL Address: home [address] [place] [address] Name: ALEX WILL Address: [address] [place] [address] Name: ALEX ROPER Address: home [address] [place] [address]
[2023-09-06 20:07] VITALS: BP 136/96; PULSE 108; RESP 20; TEMP 37.1; O2SAT 95
[2023-09-06 20:18] LABS: Appearance Urine Clear; Color Urine Yellow; Glucose Urine UA Negative (Negative); Leukocyte Esterase Urine Negative (Negative); Nitrite Urine Negative (Negative); PH 6.5 (5.0-9.0); Specific Gravity - Urine 1.025 (1.005-1.025); Urine Blood Negative (Negative); Urine Ketones Negative (Negative); Urine Protein Negative (Neg-Trace)
[2023-09-06 20:21] LABS: Bacteria Urine None Seen (None Seen); Hyaline Casts Urine 0-2 /LPF (0-2); RBC Urine 0-2 /HPF (0-2); WBC Urine 0-5 /HPF (0-5)
[2023-09-06] MEDS: Metoclopramide HCl 10 MG/2 ML VIAL IVPUSH (20:23)
[2023-09-06] MEDS: Morphine Sulfate 4 MG/ML CARTRIDGE IVPUSH (20:23)
[2023-09-06] MEDS: 0.9 % Sodium Chloride 1,000 ML 999 ML IV (20:23)
[2023-09-06] MEDS: HYDROmorphone HCl 1 MG/ML SYRINGE IVPUSH ×2 (21:23→23:55)
[2023-09-06 21:25] VITALS: BP 132/87; PULSE 85; RESP 16; O2SAT 94
[2023-09-06 21:54] LABS: HCG Quantitative 7 mIU/mL
[2023-09-06 22:22] LABS: CDiff Gene PCR NEGATIVE (Negative)
[2023-09-06] MEDS: iohexoL 350 MG/ML 100 ML INFUS..BTL 85 ML IV (22:24)
[2023-09-06 23:55] VITALS: BP 121/63; PULSE 79; RESP 16; O2SAT 95
[2023-09-07] VITALS (7 sets, daily range): BP systolic 94–137; BP diastolic 58–77; PULSE 81–90; RESP 16–18; TEMP 36.4–36.6; O2SAT 93–96
--- NOTE | 2023-09-07 01:05 | P.HPHOSP_ITS ---
History of Present Illness Date of Service: 09/07/23 Chief Complaint: Abdominal pain, nausea and vomiting This is a 43-year-old female with pertinent history of chronic pancreatitis, alcohol use disorder, mood disorder, gastroesophageal reflux disease who presents to the emergency department for evaluation of abdominal pain. Patient states the pain began 1 month prior to presentation when she was treated for pancreatitis due to alcohol use. Patient was again admitted to [facility] last week for lactic acidosis due to diarrhea and abdominal pain due to chronic pancreatitis. States she was discharged too soon as she was continuing to have abdominal pain, nausea and vomiting on the day of discharge. This progressed and patient has had constant, nonradiating epigastric abdominal pain without any relief. Also has been having multiple episodes of nonbloody emesis and nonbloody diarrhea. She states the diarrhea began when an IV placed to her right arm infiltrated, subsequently infected and she was put on antibiotics for it. She admits her last alcoholic drink was yesterday and has had alcohol withdrawals in the past. Has not been able to keep anything down due to nausea and vomiting. No fever, chills, chest discomfort, palpitations, shortness of breath, changes in urinary habits In the emergency department, patient requiring multiple doses of IV opiates for analgesia. Imaging with sequelae of chronic pancreatitis and dilation of pancreatic duct Review of Systems 2 Constitutional: Constitutional: Reports fatigue, Reports lethargy and Reports poor appetite Cardiovascular: Cardiovascular: Reports no additional cardiovascular complaints Respiratory: Respiratory: Reports no additional respiratory complaints Gastrointestinal: Gastrointestinal: Reports abdominal pain, Reports fecal incontinence, Reports nausea and Reports vomiting Genitourinary: Genitourinary: Reports no additional female genitourinary complaints Endocrine: Endocrine: Reports fatigue [facility] Medical History Back pain Alcohol use disorder, severe, dependence Gastritis Gastritis Endometriosis Constipation Anxiety Depression Bipolar disorder Suicidal behavior PTSD (post-traumatic stress disorder) Pertinent family history: No family history of early CAD Surgical History History of ankle surgery Social History Household Members: Significant Other, Children and Unknown / Unable to assess Housing: House Do you presently have visiting nurse or other home services: No Alcohol intake: current Comment: pt reports no effects as of yet Smoked in Last 30 Days: No Second Hand Smoke Exposure: Yes Use of substances other than those prescribed or required for medical reasons: No Substance Use Type: Crack/Cocaine Advance Directives: No Advance Directives Information Provided: No service: No Sexual orientation: Straight/Heterosexual Meds Allergies Allergy/AdvReac Type Severity Reaction Status Date / Time morphine AdvReac Gastrointestinal Verified 09/06/23 14:42 Upset bees Allergy Severe Anaphylaxis Uncoded 09/06/23 14:42 Home Medications ?Medication ?Instructions ?Recorded ?Confirmed ?Last Taken ?Type albuterol sulfate 90 mcg/actuation 1 - 2 puff PO Q4H PRN wheezing 05/21/21 05/21/21 Unknown History aerosol inhaler (ProAir HFA) aripiprazole 10 mg tablet 1 tab PO BEDTIME 05/21/21 05/21/21 05/20/21 History buspirone 15 mg tablet 1 tab PO TID 05/21/21 05/21/21 05/20/21 History doxepin 50 mg capsule 1 cap PO BEDTIME 05/21/21 05/21/21 05/20/21 History gabapentin 600 mg tablet 600 mg PO TID 05/21/21 05/21/21 05/20/21 History xlunks-rmaxyyqn-whljcvm 2 cap PO TIDAC 05/21/21 05/21/21 05/20/21 History 12,000-38,000-60,000 unit capsule,delayed rel (Creon) lorazepam 1 mg tablet 1 mg PO TID 05/21/21 05/21/21 05/20/21 History pantoprazole 40 mg tablet,delayed 40 mg PO DAILY@0630 05/21/21 05/21/21 05/20/21 History release sertraline 100 mg tablet 200 mg PO DAILY 05/21/21 05/21/21 05/20/21 History tramadol 50 mg tablet 50 mg PO TID 05/21/21 05/21/21 05/20/21 History Physical Exam 2 Vital Signs and Narrative: Vital Signs: Last Vital Signs Temp 98.7 F 09/06/23 20:07 Pulse 79 09/06/23 23:55 Resp 16 09/06/23 23:55 BP 121/63 09/06/23 23:55 Pulse Ox 95 09/06/23 23:55 O2 Del Method Room Air 09/06/23 23:55 BMI result Body Mass Index 28.3 Middle-aged female lying in bed in no distress Neck supple, no JVD Regular rate and rhythm, S1-S2 heard Regular breath sounds bilaterally, no wheezing or crackles appreciated Abdomen with epigastric tenderness, no guarding, no rigidity, no rebound tenderness Patient is awake, alert and oriented to self, place, time and person ; no focal motor deficit Psych: Tearful No pedal edema Results Labs 09/06/23 15:24 09/06/23 15:24 Labs: Laboratory Results - last 24 hr 09/06/23 09/06/23 09/06/23 15: 20:10 20:30 MCV 92.8 MCH 31.5 MCHC 33.9 RDW 13.6 Plt Count 303 MPV 8.9 L Immature Gran % (Auto) 0.4 Neut % (Auto) 55.8 Lymph % (Auto) 32.3 Ransom % (Auto) 8.7 Eos % (Auto) 2.1 Baso % (Auto) 0.7 Lymph # (Auto) 2.9 Ransom # (Auto) 0.8 Eos # (Auto) 0.2 Baso # (Auto) 0.1 Abs Immat Gran (auto) 0.04 H Absolute Neuts (auto) 5.0 Absolute Nucleated RBC 0.000 Nucleated RBC % (auto) 0.0 Anion Gap 15 Estim Creat Clear Calc 56.1 Estimated GFR 44 Random Glucose 115 Lactic Acid 1.9 Calcium 8.8 Total Bilirubin 0.5 AST 128 H ALT 86 H Alkaline Phosphatase 84 Total Protein 7.3 Albumin 4.1 Lipase 16 Beta HCG, Quant 7 Urine Color Yellow Urine Appearance Clear Urine pH 6.5 Ur Specific Jefferson 1.025 Urine Protein Negative Urine Glucose (UA) Negative Urine Ketones Negative Urine Blood Negative Urine Nitrite Negative Ur Leukocyte Esterase Negative Urine RBC 0-2 Urine WBC 0-5 Ur Squamous Epith Cells 3-5 Urine Bacteria None Seen Hyaline Casts 0-2 C. difficile Tox B Gene NEGATIVE Imaging Radiologist's Impressions: Impressions Abdomen/Pelvis CT 09/06/23 22:32 IMPRESSION: 1. No CT evidence of acute intra-abdominal process to explain patient's pain symptoms. 2. Atrophic pancreas with multiple punctate pancreatic calcifications most likely sequela of chronic pancreatitis. 3. there is dilatation of the pancreatic duct measuring 5 mm although could be also sequela of prior or chronic pancreatitis, this has newly developed since prior CT scan, cannot rule out underlying occult obstruction lesion at the level of the head of the pancreas or ampulla. Would recommend correlation with follow-up outpatient MRI/MRCP. 4. Diffusely hypodense liver suggesting hepatic steatosis. Assessment and Plan (1) Abdominal pain: Status: Acute Plan This is a 43-year-old female with pertinent history of chronic pancreatitis, alcohol use disorder, mood disorder, gastroesophageal reflux disease who presents to the emergency department for evaluation of abdominal pain. #. Intractable abdominal pain with nausea and vomiting: Imaging with sequelae of chronic pancreatitis and dilated pancreatic duct. Will obtain MRCP. May need endoscopic drainage versus surgery in case of obstructed pancreatic duct. Symptomatic treatment with analgesia. Will continue crystalloid resuscitation keep patient NPO #. Alcohol withdrawal: Initiating phenobarb protocol. Monitor CIWA. Consulting Addiction Team #. Mood disorder: Continue home mood stabilizers #. Chronic pancreatic insufficiency: On Creon #. Gastroesophageal reflux disease: On PPI Med rec pending DVT prophylaxis: Lovenox Full code Admit as inpatient and will require two night minimum hospital stay for monitoring of symptoms, treatment of alcohol withdrawal (as above), which is not possible in a lesser acute setting. Quality Stroke Does the patient have a stroke diagnosis?: No VTE Prior VTE?: No VTE Risk Level:: Medical - moderate - high VTE Device Contraindication: Treatment Not Indicated VTE Drug Contraindication: N/A - Med Ordered
--- OUTSIDE RECORDS SUMMARY | 2023-09-07 01:23 | XMS_ITS | Continuity of Care Document ---
Author Organization [facility] Address [address] [place] [id number]- Care Team Providers Care Parts Product Analyst Name Role Phone Helena GALLEGOS, Marissa Hernandez Primary Care Physician Encounter [facility] Date(s): 05/10/22 - 06/09/22 [facility] [address] [place] [id number]- [place] Allergies, Adverse Reactions, Alerts Substance Reaction [...] 03/15/22 11:53:00 EST, Route to Pharmacy Electronically, [facility] #[id number], 165, cm, 02/23/22 23:48:00 EDT, Height, 83, kg, 02/23/22 0:48:00 E... Start Date: 03/15/22 Stop Date: 07/13/22 Status: Ordered acamprosate 333 mg oral delayed release tablet 2 tablet = 666 mg, By Mouth, 3 times a day, # 180 tablet, 0 Refills, Maintenance, 04/19/22 12:37:00EST, CR Tablet, [facility], Partial fill upon patient request if the prescription is for a schedule II opioid drug., 165, cm, 04/19/22 11... Start Date: 04/19/22 Stop Date: 05/19/22 Status: Ordered Creon 36,000 units oral delayed release capsule 1 capsule, By Mouth, 3 times a day, # 90 capsule, 3 Refills, Maintenance, 06/08/22 9:09:00 EST, [facility] #[id number], Partial fill upon patient request if the prescription is for a schedule IIopioid drug., 1 capsule By Mouth 3 times a day, 165... Start Date: 06/08/22 Status: Ordered doxepin 50 mg oral capsule 1 capsule = 50 mg, By Mouth, Daily at bedtime, # 30 capsule, 3 Refills, Maintenance, 03/15/22 11:53:00 EST, Capsule, [facility] #[id number], 165, cm, 02/23/22 23:48:00 EDT, Height, 83, kg, 02/23/22 0:48:00 EDT, Dry Weight Start Date: 03/15/22 Stop Date: 07/13/22 Status: Ordered fluticasone 50 mcg/inh nasal spray See Instructions, SHAKE LIQUID AND USE 1 SPRAY IN EACH NOSTRIL TWICE DAILY, # 15.8 mL, 3 Refills, 03/23/21 16:18:00 EST, [facility] #[id number], SHAKE LIQUID AND USE 1 SPRAY IN EACH NOSTRIL TWICE DAILY, 164, cm, 03/23/21 15:58:00 EST, Height, 86.... Start Date: 03/23/21 Status: Ordered gabapentin 600 mg oral tablet See Instructions, 1 tablet in the morning and 2 tablets at bedtime, # 90 tablet, 3 Refills, Maintenance, 03/15/22 11:52:00 EST, Tablet, [facility] #[id number], 165, cm, 02/23/22 23:48:00 EDT, Height, 83, kg, 02/23/22 0:48:00 EDT, Dry Weight Start Date: 03/15/22 Status: Ordered loperamide 2 mg oral capsule 2 mg, 1, capsule, By Mouth, Every 3 hours, PRN, # 30 capsule, Refills 0, Tot. Refills 0, Acute 04/19/23 11:43:00 EST, Loose Stool, 04/19/22 11:43:00 EST, Route to Pharmacy Electronically, [facility], Partial fill upon patient [...] Refills, Maintenance, 10/01/19 11:23:00 EDT, Tablet, [facility] 1 tablet By Mouth Daily,x30 days, 165.1, cm, 10/01/19 8:37:00 EDT, Height, 80.1, kg, 09/19/19 16:30:00 EDT, Dry Weight Start Date: 10/01/19 Stop Date: 11/30/19 Status: Ordered Narcan 4 mg/0.1 mL nasal spray = 4 mg, Nares, Both, Once, # 2 each, 0 Refills, Soft Stop, 04/19/22 12:16:00 EST, [facility], Partial fill upon patient [...] Maintenance,05/30/22 9:45:00 EST, Route to Pharmacy Electronically, [facility] #[id number], 165, cm, 05/25/22 14:24:00 EST, Height, 80, kg, 04/14/22 3:03:00 E... Start Date: 05/30/22 Stop Date: 06/29/22 Status: Ordered prazosin 5 mg oral capsule 5 mg, 1, capsule, By Mouth, Daily at bedtime, for 30 days, # 30 capsule, Refills 3, Tot. Refills 3,Hard Stop 07/13/22 11:52:00 EST, 03/15/22 11:52:00 EST, Route to Pharmacy Electronically, [facility] #[id number], 165, cm, 02/23/22 23:48:00 EDT,... Start Date: 03/15/22 Stop Date: 07/13/22 Status: Ordered traMADol 50 mg oral tablet 1 tablet = 50 mg, By Mouth, Every 8 hours, 30 each, TAKE 1 TABLET BY MOUTH EVERY 8 HOURS NEEDED FOR FOR PAIN, # 30 tablet, 2 Refills, Maintenance, 05/26/22 8:00:00 EST, Tablet, [facility] #[id number], Partial fill upon patient request if the p... Start Date: 05/26/22 Status: Ordered traZODone 100 mg oral tablet TAKE 1 TABLET BY MOUTH EVERY NIGHT AT BEDTIME Start Date: 04/14/22 Status: Ordered Zoloft 100 mg oral tablet 2 tablet = 200 mg, By Mouth, Daily, # 60 tablet, 1 Refills, Maintenance, 03/15/22 11:52:00 EST, Tablet, [facility] #[id number], 165, cm, 02/23/22 23:48:00 EDT, Height, 83, [...] Name: Marissa Malik NP Position: [facility] PCO Associate Professional Member Role: PCP Address: Address: [address] [place] [id number] Name: Elisa Lamar RN Position: [facility] RN Member Role: Primary Care Nurse Name: Zo Segal RN [facility] RN Member Role: Primary Care Nurse Name: Antonia Mtz RN Position: [facility] RN Member Role: Primary Care Nurse Name: Tiffany Ugalde RN Position: [facility] RN Member Role: Primary Care Nurse Name: Katelynn Moss RN Position: [facility] RN Member Role: Primary Care Nurse Name: Milla Emmanuel RN Position: [facility] AMB Nurse Member Role: Primary Care Nurse Name: Carol Cordova Position: [facility] RN Member Role: Primary Care Nurse Name: Katt Gustafson Position: [facility] RN Member Role: Primary Care Nurse Name: Ashely Pacheco Position: [facility] RN Member Role: Primary Care Nurse Name: Miri Espitia RN Position: [facility] Nurse Member Role: Primary Care Nurse Name: Maksim Hunt III, RN Position: [facility] RN Member Role: Primary Care Nurse Name: Elisa Fields RN Position: [facility] RN Member Role: Primary Care Nurse Name: Aron Mcginnis RN Position: [facility] SN RN Member Role: Primary Care Nurse Name: Natalia Plata RN Position: [facility] RN Member Role: Primary Care Nurse Name: Kacy Barnhart RN Position: [facility] RN Member Role: Primary Care Nurse Name: Guerline Ramirez RN Position: [facility] RN Member Role: Primary Care Nurse Name: Ashlyn Cordova RN Position: [facility] Onco RN Member Role: Primary Care Nurse Name: Jennifer Ignacio RN Position: [facility] RN Member Role: Primary Care Nurse Care Team Related Persons Name: KORY NGO Address: home [address] [address] Name: TEVIN WILL Address: home [address] [place] [address] Name: ALEX WILL Address: home [address] [place] [address] Name: ALEX ROPER Address: home [address] [place] [address]
--- OUTSIDE RECORDS SUMMARY | 2023-09-07 01:24 | XMS_ITS | Continuity of Care Document ---
Author Organization [facility] [place] Address [address] [place] [address]- Care Team Providers Care Consumer Credit Counselor Name Role Phone Marissa Malik NP Primary Care Physician [phone] Encounter [facility] Date(s): 11/11/22 - 12/11/22 [facility] [place] [address] [place], [place] [address] Allergies, Adverse Reactions, Alerts Substance Reaction Severity [...] 11/15/22 14:23:00 EDT, Route to Pharmacy Electronically, [facility] #[id number], 165, cm, 11/10/22 10:56:00 EDT, Height, 79, kg, 11/10/22 10:56:00... Start Date: 11/15/22 Stop Date: 03/15/23 Status: Ordered acamprosate 333 mg oral delayed release tablet 2 tablet = 666 mg, By Mouth, 3 times a day, # 180 tablet, 0 Refills, Maintenance, 04/19/22 12:37:00EST, CR Tablet, [facility], Partial fill upon patient request if the prescription is for a schedule II opioid drug., 165, cm, 04/19/22 11... Start Date: 04/19/22 Stop Date: 05/19/22 Status: Ordered busPIRone 15 mg oral tablet 1 tablet = 15 mg, By Mouth, 3 times a day, # 90 tablet, 3 Refills, Maintenance, 11/15/22 14:23:00 EDT, Tablet, [facility] #[id number], Partial fill upon patient request if the prescription is for a schedule II opioid drug., 165, cm, 11/10/22 10:5... Start Date: 11/15/22 Stop Date: 03/15/23 Status: Ordered Creon 36,000 units oral delayed release capsule 1 capsule, By Mouth, 3 times a day, # 90 capsule, 3 Refills, Maintenance, 06/08/22 9:09:00 EST, [facility] #[id number], Partial fill upon patient request if the prescription is for a schedule IIopioid drug., 1 capsule By Mouth 3 times a day, 165... Start Date: 06/08/22 Status: Ordered doxepin 50 mg oral capsule 1 capsule = 50 mg, By Mouth, Daily at bedtime, # 30 capsule, 3 Refills, Maintenance, 11/15/22 14:23:00 EDT, Capsule, [facility] #[id number], 165, cm, 11/10/22 10:56:00 EDT, Height, 79, kg, 11/10/22 10:56:00 EDT, Dry Weight Start Date: 11/15/22 Stop Date: 03/15/23 Status: Ordered gabapentin 600 mg oral tablet See Instructions, 1 tablet in the morning and 2 tablets at bedtime, # 90 tablet, 3 Refills, Maintenance, 11/15/22 14:24:00 EDT, Tablet, [facility] #[id number], 165, cm, 11/10/22 10:56:00 EDT, Height, 79, kg, 11/10/22 10:56:00 EDT, Dry Weight Start Date: 11/15/22 Status: Ordered LORazepam 1 mg oral tablet 1 tablet = 1 mg, By Mouth, 3 times a day, PRN as needed for anxiety, # 90 tablet, 3 Refills, Maintenance, 11/15/22 14:24:00 EDT, Tablet, [facility] #[id number], Partial fill upon patient requestif the prescription is for a schedule II opioid elijah... Start Date: 11/15/22 Stop Date: 03/15/23 Status: Ordered multivitamin Multiple Vitamins oral tablet 1 tablet, By Mouth, Daily, # 30 tablet, 1 Refills, Maintenance, 10/01/19 11:23:00 EDT, Tablet, [facility], 1 tablet By Mouth Daily,x30 days, [...] Maintenance,11/15/22 14:24:00 EDT, Route to Pharmacy Electronically, [facility] #[id number], 165, cm, 11/10/22 10:56:00 EDT, Height, 79, kg, 11/10/22 10:56:00... Start Date: 11/15/22 Stop Date: 02/13/23 Status: Ordered traZODone 100 mg oral tablet 100 mg, 1, tablet, By Mouth, Daily at bedtime, TAKE 1 TABLET BY MOUTH EVERY NIGHT AT BEDTIME, # 30 tablet, Refills 3, Tot. Refills 3, Maintenance, 11/15/22 14:24:00 EDT, Route to Pharmacy Electronically, [facility] #[id number], Partial fill upon... Start Date: 11/15/22 Stop Date: 03/15/23 Status: Ordered valACYclovir 500 mg oral tablet 500 mg, 1, tablet, By Mouth, 2 times a day, # 6 tablet, Refills 1, Tot. Refills 1, Maintenance, 11/10/22 11:16:00 EDT, Route to Pharmacy Electronically, [facility] #[id number], Partial fill uponpatient request if the prescription [...] Professional Member Role: PCP Address: Address: [address] [place] [address] [place] [address]- Name: Elisa Lamar RN Position: [facility] RN Member Role: Primary Care Nurse Name: Zo Segal RN Position: [facility] AMB Nurse Member Role: Primary Care Nurse Name: Antonia Mtz RN Position: [facility] RN Member Role: Primary Care Nurse Name: Milla Emmanuel RN Position: [facility] SN RN Member Role: Primary Care Nurse Name: Carol Min [place] Position: [facility] RN Member [...] Persons Name: TATIANNA NGOOg Address: home [address] [address] Name: TEVIN WILL Address: home [address] [place] [address] Name: ALEX WILL Address: home [address] [place] [address] Name: ALEX ROPER Address: home [address] [place] [address]
[2023-09-07] MEDS: Thiamine HCL 100 MG in 0.9 % Sodium Chloride 100 ML 202 MG IV (01:58)
[2023-09-07] MEDS: HYDROmorphone HCl 1 MG/ML SYRINGE 0.5 MG IVPUSH ×6 (01:59→20:34)
[2023-09-07] MEDS: PHENobarbitaL sodium 130 MG/ML IM ONCE 221 MG IM (01:59)
[2023-09-07] MEDS: Metoclopramide HCl 10 MG/2 ML VIAL IVPUSH (01:59)
[2023-09-07] MEDS: LORazepam 2 MG/ML VIAL 1 MG IVPUSH (02:00)
[2023-09-07] MEDS: Lactated Ringers 1,000 ML 80 ML IVCONT ×3 (02:07→21:26)
[2023-09-07] MEDS: PHENobarbitaL sodium 130 MG/ML VIAL IM Q3Hx2 169 MG IM ×2 (04:57→09:15)
[2023-09-07 05:58] LABS: MANUAL DIFF FLAG NO
[2023-09-07 06:01] LABS: Basophils Absolute Auto 0.1 X10*3/uL (0.0-0.2); Basophils Percent Auto 0.6 % (0-2); Eosinophils Absolute Auto 0.3 X10*3/uL (0.0-0.4); Eosinophils Percent Auto 3.8 % (0-4); Imm Gran Abs Auto 0.03 X10*3/uL (0.00-0.03); Imm Gran Pct Auto 0.4 % (0.0-0.4); Lymphocytes Absolute Auto 2.9 X10*3/uL (1.2-4.9); Mean Corpuscular HGB Conc 32.5 g/dl (31.0-35.0); Mean Corpuscular Hemoglobin 30.9 pg (27.0-33.0); Mean Platelet Volume 9.2 fL (9.4-12.3); Monocytes Absolute Auto 0.9 X10*3/uL (0.1-1.2); Monocytes Percent Auto 11.4 % (2-11); Neutrophils Percent Auto 48.8 % (45-73); Platelet Count 287 X10*3/uL (160-400); Red Blood Count 4.21 X10*6/uL (4.20-5.50); Red Cell Distribution Width 13.8 % (11.0-16.0); White Blood Count 8.2 X10*3/uL (4.8-10.8)
[2023-09-07 06:20] LABS: Anion Gap 15 (12-20); Blood Urea Nitrogen 6 mg/dL (9-16); Calcium 8.5 mg/dL (8.4-10.2); Carbon Dioxide 24 mmol/L (22-29); Chloride 103 mmol/L (96-108); Creatinine Clr Calc Pharmacy 80.2; Estimated Glomerular Filt Rate > 60; Glucose Random 103 mg/dL (60-115); Sodium 138 mmol/L (135-145)
--- NOTE | 2023-09-07 09:30 | PHA.MEDREC ---
Pharmacy Consult ? Medication Reconciliation Pharmacy has completed the medication reconciliation. Spoke to patient and confirmed medication list. Patient said she takes Creon 24,000 units tidac, nicotine 21 mg patches daily and gabapentin 600 mg tid.
[2023-09-07] MEDS: Omeprazole 40 MG CAPSULE.DR PO (12:36)
[2023-09-07] MEDS: buPROPion HCl XL 300 MG TAB.ER.24H PO (12:36)
--- NOTE | 2023-09-07 12:48 | PC.NURSE ---
Dr Go at the bedside, pt medicated for 10/10 pain, she is advancing to po fluids per orders.
--- NOTE | 2023-09-07 12:52 | PM.EVENT ---
Event Note Date of Service: 09/07/23 Event Note: 43-year-old female with pertinent history of chronic pancreatitis, alcohol use disorder, mood disorder, gastroesophageal reflux disease who presents to the emergency department for evaluation of abdominal pain. #. Intractable abdominal pain with nausea and vomiting: Likely due to chronic pancreatitis, normal CBC, no fevers, , normal total bili, normal lipase, abdominal MRI obtained to follow-up on dilated pancreatic duct Placed on full liquid diet/IV fluids/continue analgesics and resumed pancreatic enzymes Strongly recommend to abstain from alcohol. #. Alcohol withdrawal: Continue phenobarb protocol. Monitor CIWA. Addiction Team consult #. Mood disorder: Will resume home medications #. Chronic pancreatic insufficiency: Continue Creon #. Gastroesophageal reflux disease: On PPI DVT prophylaxis: Lovenox Full code Time Spent With Patient Time: Total time managing care of this patient today ____ minutes.
--- NOTE | 2023-09-07 13:23 | MHC.CM.PN ---
Met with patient in regards to discharge planning. Patient lives with her , ambulates independently and had no services prior to coming to the hospital. Services not anticipated to be needed because patient is not homebound. PCP verified. Copy of HCP verified to be on file. Patient has not received any Covid vaccines. Patient's mother's will transport her home when medically stable. Continue to monitor for d/c needs.
--- NOTE | 2023-09-07 15:04 | PM.GICN ---
History of Present Illness Data of Consult Service Date: 09/07/23 Requesting physician: Tracey Go Primary Care Provider: Anai Lane NP HPI Reason for consult: Pancreatitis, pancreatic duct dilation 43 YF with a history of chronic pancreatitis, alcohol use disorder, mood disorder, gastroesophageal reflux disease seen at [facility] on 09/06/23 with abdominal pain. Patient stated the pain began 1 month prior to presentation when she was treated for pancreatitis due to alcohol use. Patient reports she was diagnosed with chronic pancreatitis 13 years ago. She was placed on Creon 12,000 units with each meal - increased to 24,000 units with each meal 2 yrs corwin by her non food receiving clerk at [facility] be She was hospitalized in early August to [facility] with pancreatitis and re-admitted last week for lactic acidosis due to diarrhea and abdominal pain due to chronic pancreatitis. Per pt, she was discharged too soon as she was continuing to have abdominal pain, nausea and vomiting on the day of discharge. Her symptoms progressed and she notes constant, non-radiating epigastric abdominal pain without any relief with multiple episodes of non-bloody emesis and nonbloody diarrhea. She states the diarrhea began when an IV placed to her right arm infiltrated, subsequently infected and she was put on antibiotics for it. Pt reports having 4-5 loose BMs a day. She complains of 10/10 upper abdominal pain which is constant and goes away after she gets pain medications. She was prescribed oxycodone 9 tab when discharged from [facility] and unable to control her pain with PO meds. Pt reports she stopped ETOH abuse for a while and takes a few drinks once in a while (beer + a few shots) She admits her last alcoholic drink was yesterday and has had alcohol withdrawals in the past. Pt reports she has not been able to keep anything down due to nausea and vomiting. She denied fever, chills, chest discomfort, palpitations, shortness of breath, changes in urinary habits Pt quitted smoking a month ago. 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 Patient reports a positive family history of alcoholism in her mom and uncles. She denies known family history of colon polyps, colon cancer GI malignancy. In the emergency department, patient requiring multiple doses of IV opiates for analgesia. 09/06/[address] SCAN SHOWED: 1. No CT evidence of acute intra-abdominal process to explain patient's pain symptoms. 2. Atrophic pancreas with multiple punctate pancreatic calcifications most likely sequela of chronic pancreatitis. 3. there is dilatation of the pancreatic duct measuring 5 mm although could be also sequela of prior or chronic pancreatitis, this has newly developed since prior CT scan, cannot rule out underlying occult obstruction lesion at the level of the head of the pancreas or ampulla. Would recommend correlation with follow-up outpatient MRI/MRCP. 4. Diffusely hypodense liver suggesting hepatic steatosis. 09/07/23 MRCP SHOWED: Dilatation and tortuosity of the main pancreatic duct which measures up to 7 mm. No discrete mass or filling defect. CT demonstrated multiple pancreatic parenchymal calcifications. These findings may be seen in the setting of chronic pancreatitis. Short interval follow-up imaging could be considered. Review of Systems Constitutional: Constitutional: Reports fatigue, Reports lethargy and Reports poor appetite Cardiovascular: Cardiovascular: Reports no additional cardiovascular complaints Respiratory: Respiratory: Reports no additional respiratory complaints Gastrointestinal: Gastrointestinal: Reports abdominal pain, Reports fecal incontinence, Reports nausea and Reports vomiting Genitourinary: Genitourinary: Reports no additional female genitourinary complaints Endocrine: Endocrine: Reports fatigue PMFSH Past Medical History Medical History Back pain Alcohol use disorder, severe, dependence Gastritis Gastritis Endometriosis Constipation Anxiety Depression Bipolar disorder Suicidal behavior PTSD (post-traumatic stress disorder) Surgical History Surgical History History of ankle surgery Social History Social History Household Members: Significant Other, Children and Unknown / Unable to assess Housing: House Do you presently have visiting nurse or other home services: No Alcohol intake: current Comment: pt reports no effects as of yet Patient Tobacco Use Status: Never used Tobacco Second Hand Smoke Exposure: Yes Substance Use Type: Crack/Cocaine service: No Sexual orientation: Straight/Heterosexual Meds Allergies Allergy/AdvReac Type Severity Reaction Status Date / Time morphine AdvReac Gastrointestinal Verified 09/06/23 14:42 Upset bees Allergy Severe Anaphylaxis Uncoded 09/06/23 14:42 Active Medications: Current Medications Acetaminophen (Acetaminophen 325 Mg Tablet) 650 mg PO Q6H PRN PRN Reason: Pain, Mild (Pain Scale 1-3) Albuterol Sulfate (Albuterol Sulfate 90 Mcg 8 Gm Inhaler) 2 puff INHALE Q4H PRN PRN Reason: wheezing Lipase/Protease/Amylase (Lipase/Prot/Amylase 12/38/60k Capsule.) 2 cap PO TIDAC [facility] Aripiprazole (Aripiprazole 10 Mg Tablet) 10 mg PO BEDTIME [facility] Bupropion HCl (Bupropion Hcl Xl 300 Mg Tab.Er.24h) 300 mg PO DAILY [facility] Last Admin: 09/07/23 12:36 Dose: 300 mg Enoxaparin Sodium (Enoxaparin Sodium 40 Mg/0.4 Ml Syringe) 40 mg SUBCUT DAILY@0600 [facility] Last Admin: 09/07/23 02:05 Dose: Not Given Folic Acid (Folic Acid 1 Mg Tablet) 1 mg PO DAILY [facility] Gabapentin (Gabapentin 600 Mg Tablet) 600 mg PO TID [facility] Hydromorphone HCl (Hydromorphone Hcl 1 Mg/Ml Syringe) 0.5 mg IVPUSH Q4H PRN; Protocol PRN Reason: Pain, Severe (Pain Scale 7-10) Last Admin: 09/07/23 12:40 Dose: 0.5 mg Thiamine HCl 100 mg/ Sodium (Chloride) 101 mls @ 202 mls/hr IV DAILY [facility] Last Infusion: 09/07/23 02:42 Dose: Infused Lactated Ringer's (Lr) 1,000 mls @ 80 mls/hr IVCONT .[id number] [facility] Last Admin: 09/07/23 02:07 Dose: 80 mls/hr Lamotrigine (Lamotrigine 25 Mg Tablet) 75 mg PO BEDTIME [facility] Lorazepam (Lorazepam 1 Mg Tablet) 1 mg PO TID PRN PRN Reason: Anxiety Melatonin (Melatonin 3 Mg Tablet) 6 mg PO BEDTIME PRN PRN Reason: Insomnia Metoclopramide HCl (Metoclopramide Hcl 10 Mg/2 Ml Vial) 10 mg IVPUSH Q6H PRN PRN Reason: Nausea and Vomiting Last Admin: 09/07/23 01:59 Dose: 10 mg Nicotine (Nicotine 21 Mg Patch.Td24) 21 mg TRANSDERMA DAILY [facility] Omeprazole (Omeprazole 40 Mg Capsule.) 40 mg PO DAILY@0630 [facility] Last Admin: 09/07/23 12:36 Dose: 40 mg Ondansetron HCl (Ondansetron Hcl 4 Mg/2 Ml Vial) 4 mg IVPUSH Q8H PRN PRN Reason: Nausea and Vomiting Pharmacy Consult (Consult Rx Etoh Phenob Im/Po) 1 each MISCELLANE ONCE PRN; Protocol PRN Reason: Consult order Phenobarbital (Phenobarbital 15 Mg Tablet) 45 mg PO BID ELIZABETH; Protocol Stop: 09/09/23 09:01 Phenobarbital (Phenobarbital 15 Mg Tablet) 15 mg PO BID ELIZABETH; Protocol Stop: 09/11/23 09:01 Phenobarbital (Phenobarbital 15 Mg Tablet) 15 mg PO DAILY [facility]; Protocol Stop: 09/13/23 09:01 Prazosin HCl (Prazosin Hcl 5 Mg Capsule) 5 mg PO BEDTIME [facility]; Protocol Sodium Chloride (0.9 % Sodium Chloride Flush 3 Ml Syringe) 3 ml IVFLUSH QSHIFT [facility] Last Admin: 09/07/23 09:32 Dose: Not Given Trazodone HCl (Trazodone Hcl 100 Mg Tablet) 100 mg PO BEDTIME [facility] Home Medications ?Medication ?Instructions ?Recorded ?Confirmed ?Last Taken ?Type albuterol sulfate 90 mcg/actuation 2 puff PO Q4H PRN wheezing 05/21/21 09/07/23 Unknown History aerosol inhaler (ProAir HFA) aripiprazole 10 mg tablet 1 tab PO BEDTIME 05/21/21 09/07/23 09/05/23 History doxepin 50 mg capsule 1 cap PO BEDTIME 05/21/21 09/07/23 09/05/23 History gabapentin 600 mg tablet 600 mg PO TID 05/21/21 09/07/23 09/06/23 History [id number] 2 cap PO TIDAC 05/21/21 09/07/23 09/06/23 History 12,000-38,000-60,000 unit capsule,delayed rel (Creon) lorazepam 1 mg tablet 1 mg PO TID PRN Anxiety 05/21/21 09/07/23 05/20/21 History pantoprazole 40 mg tablet,delayed 40 mg PO DAILY@0630 05/21/21 09/07/23 09/06/23 History release bupropion HCl 300 mg 24 hr tablet, 300 mg PO DAILY 09/07/23 09/07/23 09/06/23 History extended release folic acid 1 mg tablet 1 mg PO DAILY 09/07/23 09/07/23 09/06/23 History lamotrigine 25 mg tablet 75 mg PO BEDTIME 09/07/23 09/07/23 09/05/23 History nicotine 21 mg/24 hr daily 1 patch transdermal DAILY 09/07/23 09/07/23 09/06/23 History transdermal patch Physical Exam Vital Signs: Vital Signs: Last Vital Signs Temp 97.7 F 09/07/23 08:09 Pulse 87 09/07/23 08:09 Resp 18 09/07/23 08:09 BP 137/72 09/07/23 08:09 Pulse Ox 93 09/07/23 08:09 O2 Del Method Room Air 09/07/23 08:09 BMI result Body Mass Index 28.3 Appearance: Alert.? Oriented X3.? No acute distress.? Head: Normocephalic, atraumatic, no step-offs or deformities Eyes: Pupils equal, round and reactive to light.? ENT: Pharynx normal.? Neck: Normal inspection.? Neck supple.? CVS: Normal heart rate and rhythm.? Pulses normal.? Respiratory: No respiratory distress.? Breath sounds normal.? Abdomen: Soft with moderate epigastric tenderness.? Skin: Skin warm and dry.? Normal skin color.? Normal skin turgor.? Extremities: No lower extremity edema.? No calf ttp. 5/5 strength to bilateral upper and lower extremities Back: No midline tenderness, no C-spine tenderness, full range of motion, no CVA tenderness bilaterally Neuro: Oriented X 3.? No motor deficit.? No sensory deficit. Cranial nerves 2-12 intact Results Labs 09/07/23 04:33 09/07/23 04:33 Labs: Short CBC 09/06/23 09/07/23 Range/Units 15:24 04:33 WBC 8.9 8.2 (4.8-10.8) X10*3/uL Hgb 14.0 13.0 (12.0-16.0) g/dl Hct 41.3 40.0 (37.0-47.0) % Plt Count 303 287 (160-400) X10*3/uL BMP 09/06/23 09/07/23 15:24 04:33 Sodium 138 138 Potassium 4.0 4.0 Chloride 102 103 Carbon Dioxide 25 24 BUN 5 L 6 L Creatinine 1.30 0.91 Calcium 8.8 8.5 Liver Function 09/06/23 Range/Units 15:24 Total Bilirubin 0.5 (0.0-1.0) mg/dL AST 128 H (5-31) U/L ALT 86 H (0-31) U/L Alkaline Phosphatase 84 (39-117) U/L Albumin 4.1 (3.5-5.0) g/dL Urine 09/06/23 Range/Units 20:10 Urine Color Yellow Urine Appearance Clear Urine pH 6.5 (5.0-9.0) Ur Specific [place] 1.025 (1.005-1.025) Urine Protein Negative (Neg-Trace) mg/dL Urine Glucose (UA) Negative (Negative) mg/dL Assessment and Plan (1) Pancreatitis: Qualifiers: Chronicity: chronic Pancreatitis type: alcohol induced Qualified Code(s): K86.0 - Alcohol-induced chronic pancreatitis Status: Acute (2) Abdominal pain: Status: Acute Plan 43 YF with a history of chronic pancreatitis, alcohol use disorder, mood disorder, gastroesophageal reflux disease admitted to [facility] with acute on chronic pancreatitis and diarrhea after antibiotic use. Pt reports she stopped ETOH abuse for a while and takes a few drinks once in a while (beer + a few shots) She admits her last alcoholic drink was yesterday and has had alcohol withdrawals in the past. Pt has been tolerating a full liquid diet 09/07/23 MRCP SHOWED: Dilatation and tortuosity of the main pancreatic duct which measures up to 7 mm. No discrete mass or filling defect. CT demonstrated multiple pancreatic parenchymal calcifications. These findings may be seen in the setting of chronic pancreatitis. Short interval follow-up imaging could be considered. RECOMMENDATIONS: 1. Agree with IVF, pain medications and antiemetics 2. Pt states her IV dilaudid wears of after 2 hrs and requesting addition of PO oxycodone Q 4 hrly so she take it in between IV dilaudid for improved pain control 3. Advance to a low fat diet in the am if pain is improved 4. FU MRCP in 4 months as an out patient Pt can FU with her non food receiving clerk at [facility] Hospital course: 43-year-old female with pertinent history of chronic pancreatitis, alcohol use disorder, mood disorder, gastroesophageal reflux disease who presents to the emergency department for evaluation of intractable abdominal pain, with nausea and vomiting, with no associated fevers, normal lipase, normal total bilirubin CT abdomen and pelvis showed sequela of pancreatitis and dilatation of pancreatic duct therefore patient underwent MRCP: that showed dilatation and tortuosity of the main pancreatic duct, which measures up to 7 mm, no discrete mass or filling defects, multiple pancreatic parenchymal calcifications were noted, likely due to chronic pancreatitis, patient treated with IV fluids, analgesics and bowel rest, with complete resolution of symptoms ,currently she is tolerating low fat diet, she has been strongly advised to abstain from alcohol to avoid exacerbation of abdominal pain due to chronic pancreatitis. She is recommended to continue Creon and all her home medications, she has been advised to follow-up with her primary non food receiving clerk for repeat MRCP in 4 months. Procedures Date of Service Date of Service: 09/10/23
[2023-09-07] MEDS: Gabapentin 600 MG TABLET PO ×2 (15:20→20:35)
[2023-09-07] MEDS: LORazepam 1 MG TABLET PO (15:20)
[2023-09-07] MEDS: Lipase/Prot/Amylase 12/38/60K CAPSULE.DR 2 CAP PO (15:59)
[2023-09-07] MEDS: PHENobarbitaL 15 MG TABLET 45 MG PO (17:17)
[2023-09-07] MEDS: oxyCODONE HCl Immed Release 5 MG TABLET PO ×2 (17:20→22:40)
--- NOTE | 2023-09-07 17:42 | PC.NURSE ---
Pt A/Ox4. Ambulates with steady gait. MRCP done today. Pt seen by GI and hospital team, updated on plan. IVF infusing as ordered. Awaiting bed on med surg
[2023-09-07] MEDS: ARIPiprazole 10 MG TABLET PO (20:35)
[2023-09-07] MEDS: lamoTRIgine 25 MG TABLET 75 MG PO (20:35)
[2023-09-07] MEDS: Prazosin HCL 5 MG CAPSULE PO (20:35)
[2023-09-07] MEDS: traZODone HCL 100 MG TABLET PO (20:36)
--- NOTE | 2023-09-07 21:00 | MHC.EDTECH ---
Pt given 1 cup of jello.
[2023-09-07] MEDS: 0.9 % Sodium Chloride Flush 3 ML SYRINGE IVFLUSH (22:40)
[2023-09-08] MEDS: HYDROmorphone HCl 0.5 MG/0.5 ML SYRINGE IVPUSH ×2 (01:09→05:50)
[2023-09-08] MEDS: LORazepam 1 MG TABLET PO (02:09)
[2023-09-08] MEDS: oxyCODONE HCl Immed Release 5 MG TABLET PO ×2 (04:03→08:22)
[2023-09-08 05:03] VITALS: RESP 16
[2023-09-08] MEDS: Omeprazole 40 MG CAPSULE.DR PO (05:50)
[2023-09-08 06:00] VITALS: BP 113/78; PULSE 108; RESP 19; TEMP 36.7; O2SAT 94
[2023-09-08 06:26] VITALS: RESP 18
[2023-09-08 06:29] VITALS: PULSE 84
[2023-09-08 07:34] VITALS: BP 112/71; PULSE 89; RESP 16; TEMP 36.6; O2SAT 94
[2023-09-08] MEDS: PHENobarbitaL 15 MG TABLET 45 MG PO (08:20)
--- NOTE | 2023-09-08 08:20 | PC.NURSE ---
PT IS A/O X 4 NO SOB/KENNY NOTED SPEAKS IN FULL SENTENCES. PT C/O L SIDE ABD PAIN. IVF INFUSING. CIWA - ZERO. PT AMB (I) GAIT STEADY. PT AWARE OF PLAN OF CARE. WILL CONTINUE TO MONITOR.
[2023-09-08] MEDS: Lipase/Prot/Amylase 12/38/60K CAPSULE.DR 2 CAP PO (08:21)
[2023-09-08] MEDS: buPROPion HCl XL 300 MG TAB.ER.24H PO (08:21)
[2023-09-08] MEDS: Gabapentin 600 MG TABLET PO (08:21)
[2023-09-08] MEDS: Acetaminophen 325 MG TABLET 650 MG PO (08:21)
[2023-09-08] MEDS: Folic Acid 1 MG TABLET PO (08:22)
[2023-09-08] MEDS: Nicotine 21 MG PATCH.TD24 TRANSDERMA (08:22)
[2023-09-08] MEDS: 0.9 % Sodium Chloride Flush 3 ML SYRINGE IVFLUSH (08:23)
--- NOTE | 2023-09-08 09:00 | PC.NURSE ---
PT SEEN BY DR. CRUMP, PT AWARE OF PLAN OF D/C HOME TODAY. IVF D/C'D BY .
--- NOTE | 2023-09-08 10:20 | PM.DS ---
DS: Providers Provider Date of Service: 09/08/23 Date of admission: 09/07/23 01:09 Primary care physician: Anai Lane NP Consults: 09/07/23 01:08 Addiction Medicine Routine Consulting Provider: Addiction Covering Reason for consultation: alcohol use disorder 09/07/23 08:21 Consult to Gastroenterology Routine Consulting Provider: Cary Johnson Reason for consultation: pancreatitis/pancreatic duct dilatation Has provider been notified: No DS: Diagnosis Discharge Diagnosis (1) Pancreatitis: Status: Acute (2) Abdominal pain: Status: Acute DS: Summary Hospital Course Hospital Course: History of presenting illness: Date of Service: 09/07/23 Chief Complaint: Abdominal pain, nausea and vomiting This is a 43-year-old female with pertinent history of chronic pancreatitis, alcohol use disorder, mood disorder, gastroesophageal reflux disease who presents to the emergency department for evaluation of abdominal pain. Patient states the pain began 1 month prior to presentation when she was treated for pancreatitis due to alcohol use. Patient was again admitted to [facility] last week for lactic acidosis due to diarrhea and abdominal pain due to chronic pancreatitis. States she was discharged too soon as she was continuing to have abdominal pain, nausea and vomiting on the day of discharge. This progressed and patient has had constant, nonradiating epigastric abdominal pain without any relief. Also has been having multiple episodes of nonbloody emesis and nonbloody diarrhea. She states the diarrhea began when an IV placed to her right arm infiltrated, subsequently infected and she was put on antibiotics for it. She admits her last alcoholic drink was yesterday and has had alcohol withdrawals in the past. Has not been able to keep anything down due to nausea and vomiting. No fever, chills, chest discomfort, palpitations, shortness of breath, changes in urinary habits In the emergency department, patient requiring multiple doses of IV opiates for analgesia. Imaging with sequelae of chronic pancreatitis and dilation of pancreatic duct Hospital course: 43-year-old female with pertinent history of chronic pancreatitis, alcohol use disorder, mood disorder, gastroesophageal reflux disease who presents to the emergency department for evaluation of intractable abdominal pain, with nausea and vomiting, with no associated fevers, normal lipase, normal total bilirubin CT abdomen and pelvis showed sequela of pancreatitis and dilatation of pancreatic duct therefore patient underwent MRCP: that showed dilatation and tortuosity of the main pancreatic duct, which measures up to 7 mm, no discrete mass or filling defects, multiple pancreatic parenchymal calcifications were noted, likely due to chronic pancreatitis, patient treated with IV fluids, analgesics and bowel rest, with complete resolution of symptoms ,currently she is tolerating low fat diet, she has been strongly advised to abstain from alcohol to avoid exacerbation of abdominal pain due to chronic pancreatitis. She is recommended to continue Creon and all her home medications, she has been advised to follow-up with her primary chief dispatcher service for repeat MRCP in 4 months. Time Attestation Discharge Coordination Time (in mins): 36 Quality: Safe Use of Opioids Does Pt have an Active Cancer Diagnosis on the Problem List?: No Quality: Stroke Does the patient have a stroke diagnosis?: No Physical Exam Vital Signs: Vital Signs: Last Vital Signs Temp 97.8 F 09/08/23 07:34 Pulse 89 09/08/23 07:34 Resp 16 09/08/23 07:34 BP 112/71 09/08/23 07:34 Pulse Ox 94 09/08/23 07:34 O2 Del Method Room Air 09/08/23 07:34 BMI result Body Mass Index 28.3 Const: Other: General awake alert x3, in no acute distress. Neck supple, no JVD. CVS regular rate rhythm, Respiratory lungs clear to auscultation, no respiratory distress, no wheeze, no rhonchi. Gastrointestinal abdomen soft, non tender, bowel sounds audible,no guarding , no rigidity. Extremities no edema. Neuro non focal Skin no rash Psych appropriate affect Discharge Plan Discharge Anticipated Discharge Date/Time: 09/08/23 10:16 Patient Disposition: Home, Self-Care Discharge Diagnosis: Acute abdominal pain Alcohol withdrawal Chronic pancreatitis Referrals: Anai Lane BLADDER CHANGER [Primary Care Provider] - 1 Week Discharge Medications: Continued trazodone 100 mg Tablet 100 mg PO BEDTIME 30 Days Qty: 30 0RF prazosin 5 mg Capsule 5 mg PO BEDTIME 30 Days Qty: 30 0RF doxepin 50 mg capsule 1 cap PO BEDTIME gabapentin 600 mg tablet 600 mg PO TID aripiprazole 10 mg tablet 1 tab PO BEDTIME lorazepam 1 mg tablet 1 mg PO TID PRN (Reason: Anxiety) pantoprazole 40 mg Tablet,Delayed Release (Dr/Ec) 40 mg PO DAILY@0630 albuterol sulfate [ProAir HFA] 90 mcg/actuation HFA aerosol inhaler 2 puff PO Q4H PRN (Reason: wheezing) Creon 12,000-38,000 -60,000 unit capsule,delayed release(DR/EC) 2 cap PO TIDAC lamotrigine 25 mg tablet 75 mg PO BEDTIME nicotine 21 mg/24 hr Patch 24 Hour 1 patch TRANSDERMAL DAILY folic acid 1 mg tablet 1 mg PO DAILY bupropion HCl 300 mg tablet extended release 24 hr 300 mg PO DAILY Discharge Orders: Discharge Order (Routine); Ordered 09/08/23 Ordered By: Tracey Go Diet: low fat diet Activity on Discharge: As tolerated Stand Alone Forms: Patient Portal Discharge page Print Language: Maltese Care Plan Goals: Abdominal pain resolved/strongly recommend to abstain from alcohol Follow low-fat diet Follow up MRCP (abd MRI) in 4 month as outpatient follow-up with primary chief dispatcher service Health Concerns: Mood disorder continue all home medications Plan of Treatment: Outpatient follow-up with primary care physician and chief dispatcher service call for appointment. Assessment: As above
--- NOTE | 2023-09-08 10:44 | MHC.CM.PN ---
pt dcd home self care
[2023-09-08 12:20] VITALS: BP 112/71; PULSE 89; RESP 16; TEMP 36.6; O2SAT 94
--- NOTE | 2023-09-08 13:05 | MHC.RECOVRN ---
Received Addiction Medicine consult for alcohol use disorder. Pt dc prior to being seen.
== END 2023-09-08 12:20 | disposition home or self-care (01) | DRG 282 ==
LOC: HO.ED 09-07 01:05 → HO.EDOVER 09-07 01:15
PROVIDERS: Nurse Practitioner Family; Physician Assistant; Admitting Provider Student in an Organized Health Care Education/Training Program; Emergency Provider Emergency Medicine; PCP Nurse Practitioner Adult Health; Visit Provider Hospitalist
DX: K86.0 Alcohol-induced chronic pancreatitis (principal); F10.239 Alcohol dependence with withdrawal, unspecified; K21.9 Gastro-esophageal reflux disease without esophagitis; K86.81 Exocrine pancreatic insufficiency; Z79.899 Other long term (current) drug therapy
CPT/HCPCS: 36415; 74177; 74181; 80048; 80053; 81001; 83605; 83690; 84702; 85025; 87493; 99285; J1170; J1650; J2060; J2270; J2560; J2765; J3411; J7120; Q9967

== ENCOUNTER → 2023-09-07 01:09 | Outpatient (BNV) | payer OTHER, SELFPAY | PROVIDERS: Admitting Provider Student in an Organized Health Care Education/Training Program; Emergency Provider Emergency Medicine; PCP Nurse Practitioner Adult Health; Visit Provider Student in an Organized Health Care Education/Training Program | DX: K86.0 Alcohol-induced chronic pancreatitis (principal); R10.9 Unspecified abdominal pain | CPT/HCPCS: 99223; 99239; 99499 ==

== ENCOUNTER → 2023-09-07 01:09 | Outpatient (BNV) | payer OTHER, SELFPAY | PROVIDERS: Admitting Provider Student in an Organized Health Care Education/Training Program; Emergency Provider Emergency Medicine; PCP Nurse Practitioner Adult Health; Visit Provider Internal Medicine Gastroenterology | DX: K86.0 Alcohol-induced chronic pancreatitis (principal); R10.9 Unspecified abdominal pain | CPT/HCPCS: 99222 ==

== ENCOUNTER 2024-05-07 23:07 | Observation (INO) | payer OTHER, SELFPAY ==
--- NOTE | ~2024-05-07 | US_ITS ---
CLINICAL HISTORY: assess for CBD dilation US abdomen limited Comparison: 02/11/2020 Findings: The visualized pancreas is normal. The aorta and inferior vena cava are normal caliber. The liver is normal in size and increased in echotexture. There is no intrahepatic bile duct dilatation. The common duct is 3 mm in diameter. The gallbladder is normal. There is no sonographic Bonds sign. The main portal vein is antegrade. The right kidney is 10 cm in length. No ascites. IMPRESSION: Hepatic steatosis. No acute process. This document has been electronically signed by: Sher Salazar MD on 05/08/2024 08:54:44
--- NOTE | ~2024-05-07 | CT_ITS ---
CLINICAL HISTORY: pain luq CT abdomen and pelvis without contrast Comparison: CT/FL/SR - CT ABDOMEN PELVIS W IV CON - 09/06/23 22:20 EDT Findings: No consolidation or effusion. The liver is enlarged. The liver appears normal in contour. There is diffusely decreased hepatic attenuation. The gallbladder, spleen, and bilateral adrenal glands are unremarkable in appearance. Calcifications are identified throughout the pancreas, consistent with sequela of chronic pancreatitis. Radiopaque renal calculi. No hydronephrosis or hydroureter. No bowel obstruction, pneumoperitoneum, or pneumatosis. Pelvic contents unremarkable. The bladder is minimally distended with fluid, limiting its evaluation. Tiny, fat containing right inguinal hernia. Normal appendix. The bones are intact. Sclerosis identified of the superior aspect of the left femoral head, suggesting sequela of avascular necrosis. A similar finding was present on the prior examination. IMPRESSION: 1. No acute inflammatory process identified within the abdomen or pelvis. 2. Hepatomegaly with fatty infiltration of the liver. This document has been electronically signed by: Erick Berman MD on 05/08/2024 03:01:35
[2024-05-07 23:15] VITALS: BP 130/92; PULSE 120; O2SAT 98
[2024-05-07 23:22] VITALS: BP 112/79; PULSE 124; RESP 20; TEMP 36.8; O2SAT 93; BMI 31.6
[2024-05-07 23:41] LABS: MANUAL DIFF FLAG NO
[2024-05-07 23:45] LABS: Basophils Absolute Auto 0.1 X10*3/uL (0.0-0.2); Basophils Percent Auto 0.4 % (0-2); Eosinophils Absolute Auto 0.1 X10*3/uL (0.0-0.4); Eosinophils Percent Auto 0.9 % (0-4); Hematocrit 42.4 % (37.0-47.0); Hemoglobin 14.5 g/dl (12.0-16.0); Imm Gran Abs Auto 0.11 X10*3/uL (0.00-0.03); Imm Gran Pct Auto 0.9 % (0.0-0.4); Lymphocytes Absolute Auto 2.7 X10*3/uL (1.2-4.9); Lymphocytes Percent Auto 21.2 % (20-40); Mean Corpuscular HGB Conc 34.2 g/dl (31.0-35.0); Mean Corpuscular Volume 87.6 fL (80.0-98.0); Mean Platelet Volume 9.6 fL (9.4-12.3); Monocytes Absolute Auto 1.2 X10*3/uL (0.1-1.2); Monocytes Percent Auto 9.1 % (2-11); Neutrophils Absolute Auto 8.7 x10*3/uL (2.0-8.3); Neutrophils Percent Auto 67.5 % (45-73); Platelet Count 380 X10*3/uL (160-400); Red Blood Count 4.84 X10*6/uL (4.20-5.50); Red Cell Distribution Width 13.5 % (11.0-16.0); White Blood Count 12.9 X10*3/uL (4.8-10.8)
[2024-05-07 23:55] LABS: Alanine Aminotransferase 54 U/L (0-31); Albumin Level 4.2 g/dL (3.5-5.0); Alkaline Phosphatase 131 U/L (39-117); Anion Gap 20 (12-20); Aspartate Amino Transferase 129 U/L (5-31); Bilirubin Total 0.9 mg/dL (0.0-1.0); Blood Urea Nitrogen 3 mg/dL (9-16); Carbon Dioxide 25 mmol/L (22-29); Chloride 96 mmol/L (96-108); Creatinine Clr Calc Pharmacy 96.2; Estimated Glomerular Filt Rate > 60; Glucose Random 159 mg/dL (60-115); Lipase 7 U/L (8-78); Potassium 3.4 mmol/L (3.3-5.1); Sodium 138 mmol/L (135-145); Total Protein 7.9 g/dL (6.5-8.0)
[2024-05-08] VITALS (10 sets, daily range): BP systolic 107–137; BP diastolic 70–96; PULSE 74–124; RESP 13–20; TEMP 36.1–36.8; O2SAT 92–97; BMI 34.3
--- NOTE | 2024-05-08 00:11 | ED.ABDPAIN ---
HPI - Abdominal Pain General Chief Complaint: Abdominal Pain Stated Complaint: L side ab pain Time Seen by Provider: 05/08/24 00:11 Source: patient Limitations: no limitations History of Present Illness ED Provider: Lyric Robertson PA-C HPI narrative: 43-year-old female with self report of prior alcohol abuse, acute on chronic pancreatitis presents with abdominal pain x2 days. Pain is focal to the left upper quadrant or radiation to her mid back. Pain is severe. Associated intractable nausea vomiting. Denies fever or diarrhea. No sick contacts with same symptoms. Patient's admits that she had alcohol yesterday not an access, she feels this trigger her symptoms. Patient also states that if she eats certain foods and triggers her symptoms. Related Data Home Medications ?Medication ?Instructions ?Recorded ?Confirmed albuterol sulfate 90 mcg/actuation 2 puff PO Q4H PRN wheezing 05/21/21 09/07/23 aerosol inhaler (ProAir HFA) aripiprazole 10 mg tablet 1 tab PO BEDTIME 05/21/21 09/07/23 doxepin 50 mg capsule 1 cap PO BEDTIME 05/21/21 09/07/23 gabapentin 600 mg tablet 600 mg PO TID 05/21/21 09/07/23 [id number]-[id number] 2 cap PO TIDAC 05/21/21 09/07/23 12,000-38,000-60,000 unit capsule,delayed rel (Creon) lorazepam 1 mg tablet 1 mg PO TID PRN Anxiety 05/21/21 09/07/23 pantoprazole 40 mg tablet,delayed 40 mg PO DAILY@0630 05/21/21 09/07/23 release bupropion HCl 300 mg 24 hr tablet, 300 mg PO DAILY 09/07/23 09/07/23 extended release folic acid 1 mg tablet 1 mg PO DAILY 09/07/23 09/07/23 lamotrigine 25 mg tablet 75 mg PO BEDTIME 09/07/23 09/07/23 nicotine 21 mg/24 hr daily 1 patch transdermal DAILY 09/07/23 09/07/23 transdermal patch Previous Rx's ?Medication ?Instructions ?Recorded prazosin 5 mg capsule 5 mg PO BEDTIME 30 days #30 caps 02/18/20 trazodone 100 mg tablet 100 mg PO BEDTIME 30 days #30 tabs 02/18/20 Allergies Allergy/AdvReac Type Severity Reaction Status Date / Time acetaminophen [From Tylenol] AdvReac Stomach Verified 05/07/24 23:26 Upset ibuprofen AdvReac Stomach Verified 05/07/24 23:26 Upset morphine AdvReac Gastrointestinal Verified 09/06/23 14:42 Upset bees Allergy Severe Anaphylaxis Uncoded 09/06/23 14:42 Review of Systems Review of Systems Yes all other systems are reviewed and are negative Constitutional: Denies fatigue and Denies fever(s) Cardiovascular: Denies chest pain and Denies dyspnea Respiratory: Denies cough and Denies dyspnea Gastrointestinal: Reports abdominal pain, Denies diarrhea, Reports nausea and Reports vomiting Musculoskeletal: Denies back pain Endocrine: Denies fatigue PMFSH Past Medical History Attestation statement: The following information was validated with the patient. Medical History Back pain Alcohol use disorder, severe, dependence Gastritis Gastritis Endometriosis Constipation Anxiety Depression Bipolar disorder Suicidal behavior PTSD (post-traumatic stress disorder) Surgical History History of ankle surgery Social History Social History Household Members: Significant Other, Children and Unknown / Unable to assess Housing: House Do you presently have visiting nurse or other home services: No Alcohol intake: current Comment: pt reports no effects as of yet Patient Tobacco Use Status: Never used Tobacco Second Hand Smoke Exposure: Yes Substance Use Type: Crack/Cocaine Advance Directives: Yes Advance Directives on File: Yes Advance Directives Date on File: 09/07/23 Do you have a plan to hurt others: No Plan service: No Sexual orientation: Straight/Heterosexual Physical Exam ED Vital Signs: Vital Signs - 24 hr 05/07/24 23:22 05/08/24 01:17 05/08/24 01:45 Temperature 98.2 F 98.2 F Pulse Rate 124 H 124 H Respiratory Rate 20 18 18 Blood Pressure 112/79 112/79 Pulse Oximetry 93 Oxygen Delivery Method Room Air 05/08/24 02:54 Temperature Pulse Rate Respiratory Rate 20 Blood Pressure Pulse Oximetry Oxygen Delivery Method BMI result Body Mass Index 31.6 Const Other: Alert, actively vomiting in bed, appears older than stated age Orientation/consciousness: patient oriented x3 [facility] Other: Dry oral mucosa Resp Effort & Inspection: normal respiratory effort Cardio Other: Normal peripheral perfusion GI Other: Abdomen is soft, obese, moderate to severe guarding left upper quadrant that is involuntary Skin Other: Warm dry no rash Neuro General: patient oriented x3, no focal motor deficits and CN's II-XI intact bilaterally Psych Other: Calm cooperative Procedures Procedure Narrative Procedure Narrative: Ultrasound-guided IV 22 gauge 2-1/2 inch IV placed in the right upper extremity. Adequate blood return flushes well, secured with Tegaderm Course Course Course Narrative: Signed out to the night team pending imaging and final disposition Reevaluation(s) Reevaluation #1: Patient received an intramuscular dose of Reglan while an ultrasound-guided IV was trying to be place, she has difficult access Reevaluation #2: Patient is still nauseous, giving Compazine and Benadryl Medical Decision Making Medical Decision Making MDM Narrative: 43-year-old female with self report of prior alcohol abuse, acute on chronic pancreatitis presents with abdominal pain x2 days. Pain is focal to the left upper quadrant or radiation to her mid back. Pain is severe. Associated intractable nausea vomiting. Denies fever or diarrhea. No sick contacts with same symptoms. Patient's admits that she had alcohol yesterday not an access, she feels this trigger her symptoms. Patient also states that if she eats certain foods and triggers her symptoms. Problem: Prior alcohol abuse, acute on chronic pancreatitis History: Per patient I have considered the following differential diagnoses: Biliary colic, cholecystitis, gastritis, pancreatitis, gallstone pancreatitis Plan: Given distribution of discomfort I am considering biliary versus gastric versus pancreatic etiology as cause for her symptoms. Screening labs including LFTs and lipase were obtained from triage. Her pain is very focal to the left upper quadrant, it is likely pancreatitis, we will obtain a CT scan. Giving IV fluid antiemetic and Dilaudid. I have independently reviewed the following tests: Labs: Slight leukocytosis, not anemic, no electrolyte abnormality, lipase not elevated, mild elevation of AST ALT and alk phos, bilirubin is normal, 05/08/2024 at 03:19 hours, Dr. Cullen Ca's note I assumed care of this patient from my colleague, physician assistant professor Cassidy Robertson pending the patient's CT scan result. CT scan revealed no acute inflammatory changes of the pancreas. Patient initially presented with abdominal pain nausea and vomiting with the pain being 10/10. Patient was treated with Dilaudid 1 mg IV x2 and her pain is now 5/10. Patient also had significant nausea with vomiting in the emergency department and was treated with lorazepam 1 mg IV, prochlorperazine 10 mg IV and Benadryl 25 mg IV. Patient states that her pain is consistent with her chronic pancreatitis and she does not think that she can go home at this time and that she often needs to be admitted for further management. Therefore, I did discuss the patient's case over tiger text with the covering hospitalist and the patient will be admitted for further treatment. Admission/Observation Consideration of admission/observation: Escalation of care including admission/observation considered (Yes) Lab Data MDM Lab Attestation statement: I reviewed the patient's lab results. 05/07/24 23:37 05/07/24 23:37 Labs: Lab Results 05/07/24 Range/Units 23:37 WBC 12.9 H (4.8-10.8) X10*3/uL RBC 4.84 (4.20-5.50) X10*6/uL Hgb 14.5 (12.0-16.0) g/dl Hct 42.4 (37.0-47.0) % MCV 87.6 (80.0-98.0) fL MCH 30.0 (27.0-33.0) pg MCHC 34.2 (31.0-35.0) g/dl RDW 13.5 (11.0-16.0) % Plt Count 380 D (160-400) X10*3/uL MPV 9.6 (9.4-12.3) fL Immature Gran % (Auto) 0.9 H (0.0-0.4) % Neut % (Auto) 67.5 (45-73) % Lymph % (Auto) 21.2 (20-40) % [place] % (Auto) 9.1 (2-11) % Eos % (Auto) 0.9 (0-4) % Baso % (Auto) 0.4 (0-2) % Lymph # (Auto) 2.7 (1.2-4.9) X10*3/uL [place] # (Auto) 1.2 (0.1-1.2) X10*3/uL Eos # (Auto) 0.1 (0.0-0.4) X10*3/uL Baso # (Auto) 0.1 (0.0-0.2) X10*3/uL Abs Immat Gran (auto) 0.11 H (0.00-0.03) X10*3/uL Absolute Neuts (auto) 8.7 H (2.0-8.3) x10*3/uL Absolute Nucleated RBC 0.000 (0.0-0.012) X10*3/uL Nucleated RBC % (auto) 0.0 (0.0-0.2) /100WBC Sodium 138 (135-145) mmol/L Potassium 3.4 (3.3-5.1) mmol/L Chloride 96 (96-108) mmol/L Carbon Dioxide 25 (22-29) mmol/L Anion Gap 20 (12-20) BUN 3 L (9-16) mg/dL Creatinine 0.80 (0.5-1.4) mg/dL Estim Creat Clear Calc 96.2 Estimated GFR > 60 Random Glucose 159 H (60-115) mg/dL Calcium 9.0 (8.4-10.2) mg/dL Total Bilirubin 0.9 (0.0-1.0) mg/dL AST 129 H (5-31) U/L ALT 54 H (0-31) U/L Alkaline Phosphatase 131 H (39-117) U/L Total Protein 7.9 (6.5-8.0) g/dL Albumin 4.2 (3.5-5.0) g/dL Lipase 7 L (8-78) U/L Beta HCG, Quant 4 mIU/mL Radiology Impression Discussion of test interpretation with radiology: I have reviewed the radiologist's reading. Radiologist Impression: CT abdomen and pelvis without contrast Comparison: CT/AL/SR - CT ABDOMEN PELVIS W IV CON - 09/06/23 22:20 EDT Findings: No consolidation or effusion. The liver is enlarged. The liver appears normal in contour. There is diffusely decreased hepatic attenuation. The gallbladder, spleen, and bilateral adrenal glands are unremarkable in appearance. Calcifications are identified throughout the pancreas, consistent with sequela of chronic pancreatitis. Radiopaque renal calculi. No hydronephrosis or hydroureter. No bowel obstruction, pneumoperitoneum, or pneumatosis. Pelvic contents unremarkable. The bladder is minimally distended with fluid, limiting its evaluation. Tiny, fat containing right inguinal hernia. Normal appendix. The bones are intact. Sclerosis identified of the superior aspect of the left femoral head, suggesting sequela of avascular necrosis. A similar finding was present on the prior examination. IMPRESSION: 1. No acute inflammatory process identified within the abdomen or pelvis. 2. Hepatomegaly with fatty infiltration of the liver. This document has been electronically signed by: Erick Berman MD on 05/08/2024 03:01:35 External Record Review External record reviewed: Inpatient record Chronic Conditions Patient?s care impacted by: Other (Chronic pancreatitis) Medications Administered Discontinued Medications Generic Name Dose Route Start Last Admin Trade Name Freq PRN Reason Stop Dose Admin Diphenhydramine HCl 25 mg 05/08/24 01:59 05/08/24 02:10 Diphenhydramine Hcl 50 Mg/Ml Vial IVPUSH 05/08/24 02:00 25 mg ONCE ONE Administration Hydromorphone HCl 1 mg 05/08/24 01:09 05/08/24 01:17 Hydromorphone Hcl 1 Mg/Ml Syringe IVPUSH 05/08/24 01:10 1 mg ONCE ONE Administration Protocol Hydromorphone HCl 1 mg 05/08/24 02:21 05/08/24 02:54 Hydromorphone Hcl 1 Mg/Ml Syringe IVPUSH 05/08/24 02:22 1 mg ONCE ONE Administration Protocol Sodium Chloride 1,000 mls @ 999 mls/hr 05/08/24 01:15 05/08/24 01:20 Ns IV 05/08/24 02:15 999 mls/hr .Q1H1M ELIZABETH Administration Lorazepam 1 mg 05/08/24 02:03 05/08/24 02:10 Lorazepam 2 Mg/Ml Vial IVPUSH 05/08/24 02:04 1 mg ONCE ONE Administration Prochlorperazine Edisylate 10 mg 05/08/24 01:59 05/08/24 02:10 Prochlorperazine Edisylate 10 Mg/2 Ml Vial IVPUSH 05/08/24 02:00 10 mg ONCE ONE Administration Discharge Plan Discharge Clinical Impression: Left upper quadrant abdominal pain, Acute on chronic pancreatitis, Nausea & vomiting Patient Disposition: Admitted As Inpatient Prescriptions: No Action trazodone 100 mg Tablet 100 mg PO BEDTIME 30 Days Qty: 30 0RF prazosin 5 mg Capsule 5 mg PO BEDTIME 30 Days Qty: 30 0RF doxepin 50 mg capsule 1 cap PO BEDTIME gabapentin 600 mg tablet 600 mg PO TID aripiprazole 10 mg tablet 1 tab PO BEDTIME lorazepam 1 mg tablet 1 mg PO TID PRN (Reason: Anxiety) pantoprazole 40 mg Tablet,Delayed Release (Dr/Ec) 40 mg PO DAILY@0630 albuterol sulfate [ProAir HFA] 90 mcg/actuation HFA aerosol inhaler 2 puff PO Q4H PRN (Reason: wheezing) Creon 12,000-38,000 -60,000 unit capsule,delayed release(DR/EC) 2 cap PO TIDAC lamotrigine 25 mg tablet 75 mg PO BEDTIME nicotine 21 mg/24 hr Patch 24 Hour 1 patch TRANSDERMAL DAILY folic acid 1 mg tablet 1 mg PO DAILY bupropion HCl 300 mg tablet extended release 24 hr 300 mg PO DAILY Print Language: Ukrainian
--- NOTE | 2024-05-08 00:23 | PC.NURSE ---
Patient moved from [address] [place] [address] to ED 12. KODI Bills at bedside with patient at this time, plan to insert ultrasound guided IV due to difficult access. Patient intermittently yelling out oww and heaving.
--- NOTE | 2024-05-08 01:06 | PC.NURSE ---
KODI Bills at bedside has been attempting to obtain IV access with ultrasound without success at this time. Attempts ongoing.
[2024-05-08] MEDS: HYDROmorphone HCl 1 MG/ML SYRINGE IVPUSH ×2 (01:17→02:54)
[2024-05-08] MEDS: 0.9 % Sodium Chloride 1,000 ML 999 ML IV (01:20)
[2024-05-08 01:57] LABS: HCG Quantitative 4 mIU/mL
[2024-05-08] MEDS: Prochlorperazine Edisylate 10 MG/2 ML VIAL IVPUSH ×3 (02:10→22:25)
[2024-05-08] MEDS: diphenhydrAMINE HCL 50 MG/ML VIAL 25 MG IVPUSH (02:10)
[2024-05-08] MEDS: LORazepam 2 MG/ML VIAL 1 MG IVPUSH (02:10)
--- NOTE | 2024-05-08 05:56 | P.HPHOSP_ITS ---
History of Present Illness Date of Service: 05/08/24 Attending physician on admission: Raquel Junior Chief Complaint: LUQ pain, nausea, vomiting Patient is a 43-year-old female with a past medical history significant for chronic pancreatitis and alcohol abuse, who presented to the ED today with left upper quadrant pain x2 days radiating to the midback. She rates his pain at 10/10 worse with lying back. She also has severe nausea and vomiting without any hematemesis or coffee-ground emesis. She has a longstanding history of chronic alcohol abuse and reports that she had 1 twisted tea last night which caused her to have severe vomiting and abdominal pain. She reports that she does not drink on a regular basis however recent notes from to [facility] admission stay otherwise. She has had 2 episodes this month with similar symptoms and was diagnosed with acute on chronic pancreatitis however CT scans did not show acute pancreatitis. She reports the episodes prior to this current episode were triggered by greasy foods. She does have a dry cough and reports chills with her nausea however she has not had any sick contacts or fever. She also reports some yellow diarrhea. Review of Systems 2 Constitutional: Constitutional: Reports chills, Denies fatigue and Denies fever(s) Eyes: Eyes: Denies change in vision ENT: Denies nasal congestion, Denies nasal discharge and Denies sore throat Cardiovascular: Cardiovascular: Denies chest pain, Denies rapid heart rate, Denies leg edema and Denies dyspnea Respiratory: Respiratory: Denies chest congestion, Reports cough, Denies dyspnea and Denies wheezing Gastrointestinal: Gastrointestinal: Denies melena, Denies hematochezia, Denies coffee ground emesis, Reports diarrhea, Reports nausea, Reports vomiting and Denies hematemesis Genitourinary: Genitourinary: Denies dysuria and Denies urinary urgency Musculoskeletal: Musculoskeletal: Denies muscle cramps Integumentary/Breasts: Skin/Breast: Denies rash Neurologic: Denies confusion Psychiatric: Psychiatric: Denies confusion Endocrine: Endocrine: Denies fatigue Hematologic/Lymphatic: Hematologic/Lymphatic: Denies easy bleeding and Denies easy bruising Allergic/Immunologic: Allergic/Immunologic: Denies wheezing [facility] Medical History Back pain Alcohol use disorder, severe, dependence Gastritis Gastritis Endometriosis Constipation Anxiety Depression Bipolar disorder Suicidal behavior PTSD (post-traumatic stress disorder) Functional capacity: independent ambulation Surgical History History of ankle surgery Social History Household Members: Significant Other, Children and Unknown / Unable to assess Housing: House Do you presently have visiting nurse or other home services: No Alcohol intake: current Comment: pt reports no effects as of yet Patient Tobacco Use Status: Never used Tobacco Second Hand Smoke Exposure: Yes Substance Use Type: Crack/Cocaine Advance Directives: Yes Advance Directives on File: Yes Advance Directives Date on File: 09/07/23 Do you have a plan to hurt others: No Plan Patient : No service: No Sexual orientation: Straight/Heterosexual Narrative: no smoking, occasional etoh, no drug use Meds Allergies Allergy/AdvReac Type Severity Reaction Status Date / Time acetaminophen [From Tylenol] AdvReac Stomach Verified 05/07/24 23:26 Upset ibuprofen AdvReac Stomach Verified 05/07/24 23:26 Upset morphine AdvReac Gastrointestinal Verified 09/06/23 14:42 Upset bees Allergy Severe Anaphylaxis Uncoded 09/06/23 14:42 Active Medications: Current Medications Acetaminophen (Acetaminophen 325 Mg Tablet) 650 mg PO Q6H PRN PRN Reason: Pain, Mild 1-3,fever,headache Calcium Carbonate (Calcium Carbonate 750 Mg Tab.Chew) 750 mg PO Q4H PRN PRN Reason: Heartburn Enoxaparin Sodium (Enoxaparin Sodium 40 Mg/0.4 Ml Syringe) 40 mg SUBCUT Q24H ELIZABETH Hydromorphone HCl (Hydromorphone Hcl 1 Mg/Ml Syringe) 0.5 mg IVPUSH Q4H PRN; Protocol PRN Reason: Pain, Severe (Pain Scale 7-10) Magnesium Hydroxide (Milk Of Magnesia 30 Ml Oral.Susp) 30 ml PO DAILY PRN PRN Reason: Constipation Melatonin (Melatonin 3 Mg Tablet) 6 mg PO BEDTIME PRN PRN Reason: Insomnia Ondansetron HCl (Ondansetron Hcl 4 Mg/2 Ml Vial) 4 mg IVPUSH Q8H PRN PRN Reason: Nausea and Vomiting Sodium Chloride (0.9 % Sodium Chloride Flush 3 Ml Syringe) 3 ml IVFLUSH QSHIFT [facility] Home Medications ?Medication ?Instructions ?Recorded ?Confirmed ?Last Taken ?Type albuterol sulfate 90 mcg/actuation 2 puff PO Q4H PRN wheezing 05/21/21 09/07/23 Unknown History aerosol inhaler (ProAir HFA) aripiprazole 10 mg tablet 1 tab PO BEDTIME 05/21/21 09/07/23 09/05/23 History doxepin 50 mg capsule 1 cap PO BEDTIME 05/21/21 09/07/23 09/05/23 History gabapentin 600 mg tablet 600 mg PO TID 05/21/21 09/07/23 09/06/23 History [id number]-[id number]-lymrbjm 2 cap PO TIDAC 05/21/21 09/07/23 09/06/23 History 12,000-38,000-60,000 unit capsule,delayed rel (Creon) lorazepam 1 mg tablet 1 mg PO TID PRN Anxiety 05/21/21 09/07/23 05/20/21 History pantoprazole 40 mg tablet,delayed 40 mg PO DAILY@0630 05/21/21 09/07/23 09/06/23 History release bupropion HCl 300 mg 24 hr tablet, 300 mg PO DAILY 09/07/23 09/07/23 09/06/23 History extended release folic acid 1 mg tablet 1 mg PO DAILY 09/07/23 09/07/23 09/06/23 History lamotrigine 25 mg tablet 75 mg PO BEDTIME 09/07/23 09/07/23 09/05/23 History nicotine 21 mg/24 hr daily 1 patch transdermal DAILY 09/07/23 09/07/23 09/06/23 History transdermal patch Physical Exam 2 Vital Signs and Narrative: Vital Signs: Last Vital Signs Temp 97.7 F 05/08/24 05:17 Pulse 109 H 05/08/24 05:17 Resp 13 05/08/24 05:17 BP 107/71 05/08/24 05:17 Pulse Ox 93 05/08/24 05:17 O2 Del Method Room Air 05/08/24 05:17 BMI result Body Mass Index 31.6 General: AOx3, appear uncomfortable Resp: CTA bilaterally CVS: mild tachycardia, regular rhythm GI: +BS, tender LUQ, no distention Skin: Warm, dry Neuro: Cranial nerves II-XII grossly intact bilaterally. Motor grossly intact bilaterally Extremities: No LE edema Psych: Appropriate affect Const: General: No confusion Orientation/consciousness: No confusion Neuro: General: No confusion Results Labs 05/07/24 23:37 05/07/24 23:37 Labs: Laboratory Results - last 24 hr 05/07/24 23:37 MCV 87.6 MCH 30.0 MCHC 34.2 RDW 13.5 Plt Count 380 D MPV 9.6 Immature Gran % (Auto) 0.9 H Neut % (Auto) 67.5 Lymph % (Auto) 21.2 [place] % (Auto) 9.1 Eos % (Auto) 0.9 Baso % (Auto) 0.4 Lymph # (Auto) 2.7 [place] # (Auto) 1.2 Eos # (Auto) 0.1 Baso # (Auto) 0.1 Abs Immat Gran (auto) 0.11 H Absolute Neuts (auto) 8.7 H Absolute Nucleated RBC 0.000 Nucleated RBC % (auto) 0.0 Anion Gap 20 Estim Creat Clear Calc 96.2 Estimated GFR > 60 Random Glucose 159 H Calcium 9.0 Total Bilirubin 0.9 AST 129 H ALT 54 H Alkaline Phosphatase 131 H Total Protein 7.9 Albumin 4.2 Lipase 7 L Beta HCG, Quant 4 Assessment and Plan (1) Intractable abdominal pain: Status: Acute (2) Nausea & vomiting: Qualifiers: Vomiting type: unspecified Qualified Code(s): R11.2 - Nausea with vomiting, unspecified Status: Acute (3) Chronic pancreatitis: Status: Acute (4) Obesity (BMI 30.0-34.9): Status: Chronic (5) Alcohol abuse: Status: Chronic Plan Patient is a 43-year-old female with a past medical history significant for chronic pancreatitis and alcohol abuse, who presented to the ED today with left upper quadrant pain x2 days radiating to the midback. She had 2 recent admissions have [facility] with similar symptoms and 2 CT scans that did not show acute pancreatitis however she was diagnosed with acute on chronic pancreatitis. CT scan here also did not show acute pancreatitis but did show pancreatic calcifications consistent with chronic pancreatitis. Intractable abdominal pain with nausea and vomiting, chronic pancreatitis versus other - WBC 12.9, tachycardia likely secondary to pain, no sepsis - LFTs elevated, AST 129, ALT 54, ALP 131, lipase 7 - abdominopelvic CT with pancreatic calcifications, suggestive of chronic pancreatitis, no acute pancreatitis - right upper quadrant ultrasound ordered to assess CBD for other etiologies - continue pain management with Dilaudid - NPO - LR 125ml/hr - monitor CBC, BMP, LFTs Alcohol abuse - conflicting history regarding current use - monitor CIWA - add phenobarb protocol if appropriate - addiction med consult Obesity - BMI 31.6 - weight loss encouraged Full code VTE prophylaxis: Lovenox Patient with intractable abdominal pain with associated nausea and vomiting and unclear etiology requiring observation for further evaluation, pain management and IV fluids. Quality Stroke Does the patient have a stroke diagnosis?: No VTE Prior VTE?: No VTE Risk Level:: Medical - moderate - high VTE Device Contraindication: Treatment Not Indicated VTE Drug Contraindication: N/A - Med Ordered
[2024-05-08] MEDS: Thiamine HCL 200 MG in 0.9 % Sodium Chloride 100 ML 204 MG IV (06:29)
[2024-05-08] MEDS: HYDROmorphone HCl 1 MG/ML SYRINGE 0.5 MG IVPUSH ×2 (06:46→10:42)
--- NOTE | 2024-05-08 06:47 | PC.NURSE ---
Patient reports worsening nausea & pain 9 out of 10. Given Dilaudid 0.5mg for pain. Refused Zofran, states only Compazine & Reglan work for nausea . Dr. Junior ordered Compazine instead, to be administered.
[2024-05-08] MEDS: Lactated Ringers 1,000 ML 125 ML IVCONT ×3 (08:35→22:59)
[2024-05-08] MEDS: 0.9 % Sodium Chloride Flush 3 ML SYRINGE IVFLUSH (08:36)
[2024-05-08] MEDS: ondansetron HCL 4 MG/2 ML VIAL IVPUSH (08:36)
--- NOTE | 2024-05-08 09:00 | PC.NURSE ---
explained risks of refusing lovenox, pt reports I always refuse it in the hospital, I get up and move so much
--- NOTE | 2024-05-08 09:24 | PHA.MEDREC ---
Pharmacy Consult ? Medication Reconciliation Pharmacy has completed the medication reconciliation. Patient was a good historian
--- NOTE | 2024-05-08 11:08 | PM.EVENT ---
Event Note Date of Service: 05/08/24 Event Note: Pt seen, labs, vitals, meds and imaging reviewed. Suspected acute on chronic pancreaitis with pain, n/v.. Change Zofran to Reglan. O/w Plan per H and P from this morning. Time Spent With Patient Time: Total time managing care of this patient today ____ minutes.
[2024-05-08 11:19] LABS: Appearance Urine Clear; Color Urine Dark Yellow; Glucose Urine UA Negative (Negative); Leukocyte Esterase Urine Negative (Negative); Nitrite Urine Negative (Negative); Specific Gravity - Urine 1.025 (1.005-1.025); UMIC TRIGGER UACC YES; Urine Blood Negative (Negative); Urine Ketones Trace mg/dL (Negative); Urine Protein 30 (1+) mg/dL (Neg-Trace)
[2024-05-08 11:21] LABS: Bacteria Urine Trace (None Seen); Hyaline Casts Urine 0-2 /LPF (0-2); RBC Urine 0-2 /HPF (0-2); WBC Urine 0-5 /HPF (0-5)
[2024-05-08] MEDS: HYDROmorphone HCl 0.5 MG/0.5 ML SYRINGE IVPUSH ×3 (15:15→23:33)
[2024-05-08] MEDS: oxyCODONE HCl Immed Release 5 MG TABLET PO (15:53)
[2024-05-08] MEDS: Metoclopramide HCl 10 MG/2 ML VIAL 5 MG IVPUSH (19:31)
[2024-05-08] MEDS: LORazepam 1 MG TABLET PO (22:59)
[2024-05-09 04:00] VITALS: BP 140/91; PULSE 83; RESP 16; TEMP 36.2; O2SAT 96
[2024-05-09] MEDS: HYDROmorphone HCl 0.5 MG/0.5 ML SYRINGE IVPUSH ×2 (04:14→08:29)
[2024-05-09] MEDS: Prochlorperazine Edisylate 10 MG/2 ML VIAL IVPUSH ×2 (06:32→19:38)
[2024-05-09] MEDS: Lactated Ringers 1,000 ML 125 ML IVCONT ×3 (06:32→22:14)
[2024-05-09 06:47] VITALS: BP 125/83; PULSE 78; RESP 18; TEMP 36.4; O2SAT 95
[2024-05-09 07:11] LABS: MANUAL DIFF FLAG NO
[2024-05-09 07:16] LABS: Basophils Percent Auto 0.5 % (0-2); Eosinophils Absolute Auto 0.2 X10*3/uL (0.0-0.4); Eosinophils Percent Auto 2.4 % (0-4); Hematocrit 37.6 % (37.0-47.0); Hemoglobin 12.3 g/dl (12.0-16.0); Imm Gran Abs Auto 0.06 X10*3/uL (0.00-0.03); Imm Gran Pct Auto 0.8 % (0.0-0.4); Lymphocytes Absolute Auto 2.1 X10*3/uL (1.2-4.9); Lymphocytes Percent Auto 27.8 % (20-40); Mean Corpuscular HGB Conc 32.7 g/dl (31.0-35.0); Mean Corpuscular Hemoglobin 29.7 pg (27.0-33.0); Mean Corpuscular Volume 90.8 fL (80.0-98.0); Monocytes Absolute Auto 0.8 X10*3/uL (0.1-1.2); Monocytes Percent Auto 10.7 % (2-11); Neutrophils Absolute Auto 4.4 x10*3/uL (2.0-8.3); Neutrophils Percent Auto 57.8 % (45-73); Platelet Count 270 X10*3/uL (160-400); Red Blood Count 4.14 X10*6/uL (4.20-5.50); Red Cell Distribution Width 13.6 % (11.0-16.0); White Blood Count 7.6 X10*3/uL (4.8-10.8)
[2024-05-09 07:31] LABS: Alanine Aminotransferase 36 U/L (0-31); Albumin Level 3.2 g/dL (3.5-5.0); Alkaline Phosphatase 92 U/L (39-117); Anion Gap 12 (12-20); Aspartate Amino Transferase 114 U/L (5-31); Bilirubin Direct 0.4 mg/dL (0.0-0.5); Bilirubin Total 0.7 mg/dL (0.0-1.0); Blood Urea Nitrogen 4 mg/dL (9-16); Calcium 8.4 mg/dL (8.4-10.2); Carbon Dioxide 29 mmol/L (22-29); Chloride 101 mmol/L (96-108); Creatinine Clr Calc Pharmacy 119.9; Estimated Glomerular Filt Rate > 60; Glucose Random 125 mg/dL (60-115); Potassium 3.2 mmol/L (3.3-5.1); Sodium 139 mmol/L (135-145); Total Protein 5.9 g/dL (6.5-8.0)
--- NOTE | 2024-05-09 08:48 | MHC.CM.PN ---
CM met with Patient at bedside and addressed [place] with her, providing Patient with the original and a copy has been placed on the chart. Patient lives in a house with her /Josep and she is functionally independent. Home/self care is the goal and CM has initiated and will follow for dc planning.Mother/Sharon is the HCP. PCP is Dr. Anai Lane and will transport to home.
[2024-05-09] MEDS: Potassium Chloride Packet 20 MEQ PACKET 40 MEQ PO (10:48)
[2024-05-09] MEDS: oxyCODONE HCl Immed Release 5 MG TABLET PO (10:48)
[2024-05-09] MEDS: Metoclopramide HCl 10 MG/2 ML VIAL 5 MG IVPUSH ×2 (10:55→18:30)
[2024-05-09 10:56] VITALS: BP 150/85; PULSE 72; RESP 18; TEMP 36.4; O2SAT 95
[2024-05-09] MEDS: HYDROmorphone HCl 0.5 MG/0.5 ML SYRINGE 1 MG IVPUSH ×3 (12:45→20:45)
--- NOTE | 2024-05-09 14:00 | HO.PM.IMPN ---
Subjective Subjective Date of Service: 05/09/24 Interval History: f/u on abdominal pain, n/v still c/o n/v and not able to eat Physical Exam Vital Signs: Vital Signs: Last Vital Signs Temp 97.6 F 05/09/24 10:56 Pulse 72 05/09/24 10:56 Resp 18 05/09/24 10:56 BP 150/85 H 05/09/24 10:56 Pulse Ox 95 05/09/24 10:56 O2 Del Method Room Air 05/09/24 10:56 BMI result Body Mass Index 34.3 General: AO X 3, no acute distress Resp: CTA bilateral CVS: S1,S2,RRR GI: +BS, NT, no distention Skin: No rash Neuro: motor grossly intact Psych: appropriate affect Objective Data Active Medications Acetaminophen (Acetaminophen 325 Mg Tablet) 650 mg PO Q6H PRN PRN Reason: Pain, Mild 1-3,fever,headache Calcium Carbonate (Calcium Carbonate 750 Mg Tab.Chew) 750 mg PO Q4H PRN PRN Reason: Heartburn Enoxaparin Sodium (Enoxaparin Sodium 40 Mg/0.4 Ml Syringe) 40 mg SUBCUT Q24H [facility] Last Admin: 05/09/24 08:30 Dose: Not Given Documented By: TRUONG Non-Admin Reason: Patient Refused Hydromorphone HCl (Hydromorphone Hcl 0.5 Mg/0.5 Ml Syringe) 1 mg IVPUSH Q4H PRN; Protocol PRN Reason: Pain, Severe (Pain Scale 7-10) Last Admin: 05/09/24 12:45 Dose: 1 mg Documented By: TRUONG Lactated Ringer's (Lr) 1,000 mls @ 125 mls/hr IVCONT .Q8H [facility] Last Admin: 05/09/24 06:32 Dose: 125 mls/hr Documented By: EDMUND Magnesium Hydroxide (Milk Of Magnesia 30 Ml Oral.Susp) 30 ml PO DAILY PRN PRN Reason: Constipation Melatonin (Melatonin 3 Mg Tablet) 6 mg PO BEDTIME PRN PRN Reason: Insomnia Metoclopramide HCl (Metoclopramide Hcl 10 Mg/2 Ml Vial) 5 mg IVPUSH Q6H PRN PRN Reason: Nausea and Vomiting Last Admin: 05/09/24 10:55 Dose: 5 mg Documented By: TRUONG Oxycodone HCl (Oxycodone Hcl Immed Release 5 Mg Tablet) 5 mg PO Q4H PRN PRN Reason: Pain, Moderate(Pain Scale 4-6) Last Admin: 05/09/24 10:48 Dose: 5 mg Documented By: TRUONG Prochlorperazine Edisylate (Prochlorperazine Edisylate 10 Mg/2 Ml Vial) 10 mg IVPUSH Q6H PRN PRN Reason: Nausea and Vomiting Last Admin: 05/09/24 06:32 Dose: 10 mg Documented By: EDMUND Sodium Chloride (0.9 % Sodium Chloride Flush 3 Ml Syringe) 3 ml IVFLUSH QSHIFT [facility] Last Admin: 05/09/24 08:30 Dose: Not Given Documented By: TRUONG Non-Admin Reason: IV Running Labs 05/09/24 06:48 05/09/24 06:48 Labs: Laboratory Results - last 24 hr 05/09/24 06:48 MCV 90.8 MCH 29.7 MCHC 32.7 RDW 13.6 Plt Count 270 D MPV 10.0 Immature Gran % (Auto) 0.8 H Neut % (Auto) 57.8 Lymph % (Auto) 27.8 Anson % (Auto) 10.7 Eos % (Auto) 2.4 Baso % (Auto) 0.5 Lymph # (Auto) 2.1 Anson # (Auto) 0.8 Eos # (Auto) 0.2 Baso # (Auto) 0.0 Abs Immat Gran (auto) 0.06 H Absolute Neuts (auto) 4.4 Absolute Nucleated RBC 0.000 Nucleated RBC % (auto) 0.0 Anion Gap 12 Estim Creat Clear Calc 119.9 Estimated GFR > 60 Random Glucose 125 H Calcium 8.4 D Total Bilirubin 0.7 Direct Bilirubin 0.4 AST 114 H ALT 36 H Alkaline Phosphatase 92 Total Protein 5.9 L Albumin 3.2 L Assessment and Plan (1) Alcohol abuse: Status: Chronic (2) Nausea & vomiting: Status: Acute (3) Acute on chronic pancreatitis: Status: Acute Plan 43-year-old female with a past medical history significant for chronic pancreatitis and alcohol abuse, who presented to the ED today with left upper quadrant pain x2 days radiating to the midback. She had 2 recent admissions have [facility] with similar symptoms and 2 CT scans that did not show acute pancreatitis however she was diagnosed with acute on chronic pancreatitis. CT scan here also did not show acute pancreatitis but did show pancreatic calcifications consistent with chronic pancreatitis. Intractable abdominal pain with nausea and vomiting, chronic pancreatitis versus other - WBC 12.9, tachycardia likely secondary to pain, no sepsis - LFTs elevated, AST 129, ALT 54, ALP 131, lipase 7 - abdominopelvic CT with pancreatic calcifications, suggestive of chronic pancreatitis, no acute pancreatitis - right upper quadrant ultrasound ordered to assess CBD for other etiologies - continue pain management with Dilaudid - liquid diet and advance as angella -gi consult if not improving - LR 125ml/hr Alcohol abuse - conflicting history regarding current use - monitor CIWA - add phenobarb protocol if appropriate - addiction med consult Obesity - BMI 31.6 - weight loss encouraged Full code VTE prophylaxis: Lovenox Patient with intractable abdominal pain with associated nausea and vomiting and unclear etiology requiring observation for further evaluation, pain management and IV fluids. Quality Stroke Does the patient have a stroke diagnosis?: No VTE Prior VTE?: No VTE Risk Level:: Medical - moderate - high VTE Device Contraindication: Treatment Not Indicated VTE Drug Contraindication: N/A - Med Ordered
[2024-05-09 15:07] VITALS: BP 141/80; PULSE 72; RESP 18; TEMP 36.4; O2SAT 96
[2024-05-09] MEDS: LORazepam 1 MG TABLET PO (16:44)
[2024-05-09 19:28] VITALS: BP 155/98; PULSE 80; RESP 16; TEMP 37.1; O2SAT 95
[2024-05-10] VITALS (9 sets, daily range): BP systolic 137–166; BP diastolic 78–98; PULSE 67–91; RESP 16–18; TEMP 36–37.1; O2SAT 94–97
[2024-05-10] MEDS: HYDROmorphone HCl 0.5 MG/0.5 ML SYRINGE 1 MG IVPUSH ×6 (00:47→23:30)
[2024-05-10] MEDS: LORazepam 1 MG TABLET PO ×3 (00:48→23:31)
--- NOTE | 2024-05-10 00:54 | PC.NURSE ---
Pt. A and Ox4. CIWA score of 0. Pt. continues with abdominal pain, see MAR for as needed med administration times. IVF infusing. Pt. cont. with nausea and vomiting. Pt. states Metoclopramide ineffective but Prochlorperazine effective. Pt. transfer to M/S at 0100 via wheelchair and RN shed workers supervisor Emmie. RN handover given to Yudy via phone. Pt. c/o 4-5 small loose stools since dinner time. Pt. refusing bed exit alarm and falls wrist band.
[2024-05-10] MEDS: Prochlorperazine Edisylate 10 MG/2 ML VIAL IVPUSH ×2 (02:33→11:06)
[2024-05-10] MEDS: diphenhydrAMINE HCL 25 MG CAPSULE PO (02:50)
[2024-05-10] MEDS: Lactated Ringers 1,000 ML 125 ML IVCONT ×3 (05:50→21:38)
--- NOTE | 2024-05-10 06:41 | PC.NURSE ---
Pt c/o itchiness to bilateral feet. MD Junior notified of the situation. One time dose of Benadryl 25mg PO was ordered and administrated to pt at 02:50 with good effect, see MAR. Will continue to monitor.
[2024-05-10] MEDS: Metoclopramide HCl 10 MG/2 ML VIAL 5 MG IVPUSH (08:45)
--- NOTE | 2024-05-10 09:46 | P.PNIM_ITS ---
Subjective Subjective Date of Service: 05/10/24 Interval History: still c/o pain and not able to tolerate diet Physical Exam 2 Vital Signs: Vital Signs: Last Vital Signs Temp 97.1 F 05/10/24 07:27 Pulse 85 05/10/24 07:27 Resp 16 05/10/24 07:27 BP 149/90 H 05/10/24 07:27 Pulse Ox 94 05/10/24 07:27 O2 Del Method Room Air 05/10/24 07:27 BMI result Body Mass Index 34.3 General: AO X 3, no acute distress Resp: CTA bilateral CVS: S1,S2,RRR GI: +BS, NT, no distention Skin: No rash Neuro: motor grossly intact Psych: appropriate affect Objective Data Active Medications Acetaminophen (Acetaminophen 325 Mg Tablet) 650 mg PO Q6H PRN PRN Reason: Pain, Mild 1-3,fever,headache Calcium Carbonate (Calcium Carbonate 750 Mg Tab.Chew) 750 mg PO Q4H PRN PRN Reason: Heartburn Enoxaparin Sodium (Enoxaparin Sodium 40 Mg/0.4 Ml Syringe) 40 mg SUBCUT Q24H [facility] Last Admin: 05/10/24 07:43 Dose: Not Given Documented By: JONI Non-Admin Reason: Patient Refused Hydromorphone HCl (Hydromorphone Hcl 0.5 Mg/0.5 Ml Syringe) 1 mg IVPUSH Q4H PRN; Protocol PRN Reason: Pain, Severe (Pain Scale 7-10) Last Admin: 05/10/24 05:47 Dose: 1 mg Documented By: BRANT Lorazepam (Lorazepam 1 Mg Tablet) 1 mg PO TID PRN PRN Reason: anxiety/restlessness Last Admin: 05/10/24 00:48 Dose: 1 mg Documented By: JAHAIRA Magnesium Hydroxide (Milk Of Magnesia 30 Ml Oral.Susp) 30 ml PO DAILY PRN PRN Reason: Constipation Melatonin (Melatonin 3 Mg Tablet) 6 mg PO BEDTIME PRN PRN Reason: Insomnia Metoclopramide HCl (Metoclopramide Hcl 10 Mg/2 Ml Vial) 5 mg IVPUSH Q6H PRN PRN Reason: Nausea and Vomiting Last Admin: 05/10/24 08:45 Dose: 5 mg Documented By: JUAN Oxycodone HCl (Oxycodone Hcl Immed Release 5 Mg Tablet) 5 mg PO Q4H PRN PRN Reason: Pain, Moderate(Pain Scale 4-6) Last Admin: 05/09/24 10:48 Dose: 5 mg Documented By: TRUONG Prochlorperazine Edisylate (Prochlorperazine Edisylate 10 Mg/2 Ml Vial) 10 mg IVPUSH Q6H PRN PRN Reason: Nausea and Vomiting Last Admin: 05/10/24 02:33 Dose: 10 mg Documented By: BRANT Sodium Chloride (0.9 % Sodium Chloride Flush 3 Ml Syringe) [facility] Last Admin: 05/10/24 07:14 Dose: Not Given Documented By: JUAN Non-Admin Reason: IV Running Labs 05/09/24 06:48 05/09/24 06:48 Assessment and Plan (1) Alcohol abuse: Status: Chronic (2) Nausea & vomiting: Status: Acute (3) Acute on chronic pancreatitis: Status: Acute Plan 43-year-old female with a past medical history significant for chronic pancreatitis and alcohol abuse, who presented to the ED today with left upper quadrant pain x2 days radiating to the midback. She had 2 recent admissions have [facility] with similar symptoms and 2 CT scans that did not show acute pancreatitis however she was diagnosed with acute on chronic pancreatitis. CT scan here also did not show acute pancreatitis but did show pancreatic calcifications consistent with chronic pancreatitis. Intractable abdominal pain with nausea and vomiting, chronic pancreatitis versus other - WBC 12.9, tachycardia likely secondary to pain, no sepsis - LFTs elevated, AST 129, ALT 54, ALP 131, lipase 7 - abdominopelvic CT with pancreatic calcifications, suggestive of chronic pancreatitis, no acute pancreatitis - right upper quadrant ultrasound ordered to assess CBD for other etiologies - continue pain management with Dilaudid - liquid diet and advance as angella -gi consult -check routine labs Alcohol abuse - conflicting history regarding current use - monitor CIWA - add phenobarb protocol if appropriate - addiction med consult Obesity - BMI 31.6 - weight loss encouraged Full code VTE prophylaxis: Lovenox Patient with intractable abdominal pain with associated nausea and vomiting and unclear etiology requiring observation for further evaluation, pain management and IV fluids. Quality Stroke Does the patient have a stroke diagnosis?: No VTE Prior VTE?: No VTE Risk Level:: Medical - moderate - high VTE Device Contraindication: Treatment Not Indicated VTE Drug Contraindication: N/A - Med Ordered
[2024-05-10 10:15] LABS: Hematocrit 35.9 % (37.0-47.0); Hemoglobin 11.7 g/dl (12.0-16.0); Mean Corpuscular HGB Conc 32.6 g/dl (31.0-35.0); Mean Corpuscular Hemoglobin 29.8 pg (27.0-33.0); Mean Corpuscular Volume 91.6 fL (80.0-98.0); Mean Platelet Volume 9.8 fL (9.4-12.3); Platelet Count 258 X10*3/uL (160-400); Red Blood Count 3.92 X10*6/uL (4.20-5.50); Red Cell Distribution Width 13.6 % (11.0-16.0); White Blood Count 7.8 X10*3/uL (4.8-10.8)
[2024-05-10 10:34] LABS: Alanine Aminotransferase 60 U/L (0-31); Albumin Level 3.4 g/dL (3.5-5.0); Alkaline Phosphatase 95 U/L (39-117); Amylase 14 U/L (28-100); Anion Gap 11 (12-20); Aspartate Amino Transferase 162 U/L (5-31); Bilirubin Direct 0.5 mg/dL (0.0-0.5); Bilirubin Total 0.9 mg/dL (0.0-1.0); Blood Urea Nitrogen 3 mg/dL (9-16); Calcium 8.3 mg/dL (8.4-10.2); Carbon Dioxide 26 mmol/L (22-29); Chloride 104 mmol/L (96-108); Creatinine Clr Calc Pharmacy 138.4; Estimated Glomerular Filt Rate > 60; Glucose Random 112 mg/dL (60-115); Lipase 8 U/L (8-78); Potassium 3.8 mmol/L (3.3-5.1); Sodium 137 mmol/L (135-145); Total Protein 6.2 g/dL (6.5-8.0)
--- NOTE | 2024-05-10 11:06 | MHC.CM.PN ---
PER MD ROUNDS, PT WILL NOT DC TODAY, PT STILL HAVING PAIN AND NOT EATING WELL. DCP REMAINS HOME NO SERVICES VIA PRIVATE TRANSPORT
--- NOTE | 2024-05-10 11:23 | P.EN_ITS ---
Event Note Date of Service: 05/10/24 Event Note: GI Consult-Full note dictated-History from patient, RN, and EMR Imp: EtOH-induced chronic pancreatitis with recurrent pain after having 1 drink on New Year's Massiel. Labs and current imaging are negative for acute inflammation. There is no evidence for a biliary cause of the pancreatitis. Previous MRCP revealed a markedly abnormal pancreatic duct. She continues to have pain, anorexia, and N/V. Her abdominal exam is currently nontender. Rec: Supportive care, add IV PPI and IV Zofran, resume her outpatient Creon. Hopefully discharge once things calm down enough to allow for adequate po intake. I have advised her to avoid alcohol completely. She has an appt in July with [facility] and I advised her to keep that as a couple of their GI MD's would be able to assess her for possible ERCP and Endoscopic U/S to look for any possible pancreatic ductal stricture and/or stones that might be amenable to stenting and/or stone removal , respectively, to see if that could improve her symptoms. Other things to consider if her chronic pain persists would be a nadine iac plexus nerve block done by EUS or IR. I ordered a fasting TG level(I saw a level of 270 in 2019) and IgG subtypes to R/O less likely causes of chronic pancreatitis as well. D/W patient in detail and she is comfortable with this plan. Thanks Time Spent With Patient Time: Total time managing care of this patient today ____ minutes.
--- NOTE | 2024-05-10 12:32 | CONS_ITS ---
DATE OF SERVICE: 05/10/2024 REASON FOR CONSULTATION: Abdominal pain and history of chronic pancreatitis. HISTORY OF PRESENT ILLNESS: The patient is a 43-year-old female who was admitted here on May 08 after presenting to the ER with abdominal pain and vomiting. Her past history is notable for previous alcohol abuse with multiple episodes of pancreatitis. She describes relative sobriety for a number of years, although still has an occasional drink including 1 alcohol-containing beverage the night prior to this admission, which was Massiel. She describes some recent hospitalizations at [facility] for similar problems. Her last hospitalization at [facility] was about 3 weeks ago and she was there for about 5 days. She describes that in between episodes of her abdominal pain she tends to feel well and does not have pain on a daily basis. With this most recent onset of pain, she did have some vomiting, but denied any hematemesis nor coffee-ground emesis. Her bowel movements have been fairly regular and she denies any hematochezia nor melena. She has been on chronic Creon as prescribed by her PCP over the past number of years. She has been seen by a drums teacher at [facility] years ago and does have an appointment there in July as well. She has had multiple imaging studies, both in the past and currently. A MRCP and MRI earlier this year showed significant abnormality of the pancreatic duct with tortuosity and areas of dilatation but no definitive evidence of pancreatic duct stones. There was no sign of any biliary disease on the MRI nor by other modalities including a recent ultrasound and CT scan. Since her admission here 72 hours ago, she describes that her pain has improved a little bit but she is still not being able to tolerate food. She has had vomitiong but has not noticed any hematemesis nor coffee-ground emesis. There has been no jaundice, fevers, nor any sign of lower GI bleeding. MEDICATIONS: At home include: 1. Abilify. 2. Bupropion. 3. Creon. 4. Doxepin. 5. Folic acid. 6. Gabapentin. 7. Lamictal. 8. Lorazepam. 9. Pantoprazole. 10. Prazosin. 11. Trazodone. Medications here include acetaminophen, Tums, Benadryl, Lovenox, Dilaudid, lorazepam, melatonin, Reglan, milk of magnesia, oxycodone, and prochlorperazine. PAST MEDICAL HISTORY: Foot surgery. She denies any other surgeries. Aside from her chronic pancreatitis she does have some psychiatric issues including anxiety and insomnia, but no other medical problems such as heart disease, diabetes, stroke, lung disease, nor renal disease. SOCIAL HISTORY: She is . She denies tobacco use. 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 FAMILY HISTORY: Noncontributory. REVIEW OF SYSTEMS: CONSTITUTIONAL: She has been feeling fairly well prior to the onset of her symptoms that prompted this admission. SKIN: No rash. No pruritus. CARDIAC: No chest pain. PULMONARY: No coughing, hemoptysis. GI: As above. URINARY: No dysuria and hematuria. NEUROLOGIC: No headache or seizures. PSYCHIATRIC: As above. PHYSICAL EXAMINATION: GENERAL: The patient is a pleasant, alert, comfortable-appearing female. SKIN: Warm and dry. Nonjaundiced. NECK: Supple. CHEST: Clear. CARDIAC: Normal S1, S2. ABDOMEN: Soft, nondistended, normal bowel sounds and without any focal tenderness, mass, rebound, or guarding. EXTREMITIES: Without edema. LABORATORIES: Imaging studies as above. White blood cell count 7.8, hemoglobin 11.7, platelets 258,000. Normal electrolytes. BUN 3, creatinine 0.6. AST 162, ALT 60, albumin 3.4. Amylase 14 and lipase of 8. Her abdominal ultrasound from 2 days ago did not reveal any sign of gallstones, biliary disease, nor portal vein thrombosis. There is no ascites. The CT scan from 2 days ago described some hepatomegaly and fatty liver. Calcifications were noted throughout the pancreas, but there was no evidence of any acute pancreatitis. IMPRESSION: Given the patient's clinical history, she clearly has a component of chronic pancreatitis with some exacerbation after her reported 1 alcohol containing beverage on Massiel. Her imaging studies are not worrisome for any significant intraabdominal pathology and her laboratories do not reveal any acute pancreatitis by her pancreatic enzymes. The elevated LFTs could be from her fatty liver as well as from some alcohol use prior to the admission. At this point, I would continue supportive care. I did review with the patient that hopefully her pain will improve to the point where she could then tolerate an oral diet and allow for discharge. In the meantime, I woud continue her medication, but would also add an IV PPI, some Zofran, and resume her outpatient Creon to see if that would help, Things improve. I did advise her to avoid alcohol completely going forward. I did advise her to keep her appointment at [facility] in July as a couple of their GI physicians there could possibly assess her for a possible ERCP and endoscopic ultrasound to look for any possible pancreatic ductal stricture and/or stones that might be amenable to pancreatic duct stenting and/or stone removal that could help improve her symptoms. If things were to worsen with chronic pain, then a celiac plexus nerve block could be considered by endoscopic ultrasound or Interventional Radiology. I did order a fasting triglyceride level and IgG subtypes to rule out any other causes of pancreatitis, although I think that would be unlikely. I do not think she needs any type of endoscopic intervention at this time. This has all been discussed in detail with the patient. She is comfortable with the plan. Thank you for the consultation. MD RIA Watson/BERNARD / [phone] VOLODYMYR
[2024-05-10] MEDS: Lipase/Prot/Amylase 12/38/60K CAPSULE.DR 3 CAP PO (12:42)
[2024-05-10] MEDS: oxyCODONE HCl Immed Release 5 MG TABLET PO (12:45)
[2024-05-10] MEDS: Folic Acid 1 MG TABLET PO (14:33)
[2024-05-10] MEDS: Gabapentin 600 MG TABLET PO ×2 (14:33→21:33)
[2024-05-10] MEDS: buPROPion HCl XL 300 MG TAB.ER.24H PO (14:33)
[2024-05-10] MEDS: Lipase/Prot/Amylase 12/38/60K CAPSULE.DR 2 CAP PO (16:09)
[2024-05-10] MEDS: Pantoprazole Sodium 40 MG/10 ML VIAL IVPUSH (16:10)
[2024-05-10] MEDS: Nystatin Cream 15 GM TUBE 1 APPL TOPICAL (21:30)
[2024-05-10] MEDS: ARIPiprazole 10 MG TABLET PO (21:31)
[2024-05-10] MEDS: lamoTRIgine 25 MG TABLET 75 MG PO (21:31)
[2024-05-10] MEDS: Doxepin HCl 25 MG CAPSULE 50 MG PO (21:32)
[2024-05-10] MEDS: Prazosin HCL 5 MG CAPSULE PO (21:32)
[2024-05-10] MEDS: traZODone HCL 100 MG TABLET PO (21:36)
[2024-05-11 03:42] VITALS: BP 100/58; PULSE 100; RESP 16; TEMP 37; O2SAT 94
--- NOTE | 2024-05-11 03:55 | PC.NURSE ---
not able to obtain urine specimen pt puts paper in the hat , or flushes
[2024-05-11 05:50] LABS: Triglycerides 166 mg/dL (<150)
[2024-05-11 05:57] LABS: Amphetamine Screen Urine Not Detected (Not Detect); Barbiturates, Urine Not Detected (Not Detect); Benzodiazepines Screen Urine Not Detected (Not Detect); Buprenorphine Scr Not Detected (Not Detect); Cannabinoid Screen Urine Not Detected (Not Detect); Cocaine Screen Urine POSITIVE (Not Detect); Fentanyl, urine Not Detected (Not Detect); Methadone Screen, Urine Not Detected (Not Detect); Opiate Screen Urine Not Detected (Not Detect); Oxycodone Screen Urine Not Detected (Not Detect); Phencyclidine Screen Urine Not Detected (Not Detect)
[2024-05-11] MEDS: HYDROmorphone HCl 0.5 MG/0.5 ML SYRINGE 1 MG IVPUSH (06:07)
[2024-05-11] MEDS: Lactated Ringers 1,000 ML 125 ML IVCONT (06:07)
[2024-05-11] MEDS: Pantoprazole Sodium 40 MG/10 ML VIAL IVPUSH (06:09)
[2024-05-11 07:33] VITALS: BP 127/79; PULSE 106; RESP 16; TEMP 36.3; O2SAT 96
[2024-05-11] MEDS: oxyCODONE HCl Immed Release 5 MG TABLET PO ×2 (08:00→11:51)
[2024-05-11] MEDS: LORazepam 1 MG TABLET PO (08:00)
[2024-05-11] MEDS: buPROPion HCl XL 300 MG TAB.ER.24H PO (08:01)
[2024-05-11] MEDS: Gabapentin 600 MG TABLET PO (08:01)
[2024-05-11] MEDS: Lipase/Prot/Amylase 12/38/60K CAPSULE.DR 2 CAP PO ×2 (08:01→11:51)
[2024-05-11] MEDS: Nystatin Cream 15 GM TUBE 1 APPL TOPICAL (08:01)
[2024-05-11] MEDS: Folic Acid 1 MG TABLET PO (08:01)
--- NOTE | 2024-05-11 08:18 | P.DS_ITS ---
DS: Providers Provider Date of Service: 05/11/24 Date of admission: 05/08/24 05:54 Primary care physician: Anai Lane NP Consults: 05/08/24 05:25 Addiction Medicine Routine Consulting Provider: Addiction Covering Reason for consultation: alcohol use disorder 05/10/24 08:13 Consult to Gastroenterology Routine Consulting Provider: Cary Johnson Reason for consultation: Abdominal pain, acute a. Chronic pancreatitis Has provider been notified: No DS: Diagnosis Discharge Diagnosis (1) Alcohol abuse: Status: Chronic (2) Nausea & vomiting: Status: Acute (3) Acute on chronic pancreatitis: Status: Acute DS: Summary Hospital Course Hospital Course: Admission hpi Chief Complaint: LUQ pain, nausea, vomiting Patient is a 43-year-old female with a past medical history significant for chronic pancreatitis and alcohol abuse, who presented to the ED today with left upper quadrant pain x2 days radiating to the midback. She rates his pain at 10/10 worse with lying back. She also has severe nausea and vomiting without any hematemesis or coffee-ground emesis. She has a longstanding history of chronic alcohol abuse and reports that she had 1 twisted tea last night which caused her to have severe vomiting and abdominal pain. She reports that she does not drink on a regular basis however recent notes from to [facility] admission stay otherwise. She has had 2 episodes this month with similar symptoms and was diagnosed with acute on chronic pancreatitis however CT scans did not show acute pancreatitis. She reports the episodes prior to this current episode were triggered by greasy foods. She does have a dry cough and reports chills with her nausea however she has not had any sick contacts or fever. She also reports some yellow diarrhea. Hospital Course: The patient is a known alcoholic with chronic pancreatitis who presented with nausea, vomiting, and intractable abdominal pain. A CT of the abdomen and pelvis was suggestive of [id number] pancreatitis despite a normal lipase level. She was admitted and treated with intravenous hydration, IV pain medications, and antiemetics. Her condition improved gradually over the course of hospitalization. She was ultimately restarted on a liquid diet, which was advanced to a regular diet that she is now tolerating well. She was evaluated by a mixing supervisor and restarted on her pancreatic enzyme replacement therapy. At present, she is tolerating her diet, her pain has subsided, and she is comfortable and ready for discharge. She has been advised to stop drinking and to seek resources to help her remain sober. Time Attestation Discharge Coordination Time (in mins): 40 Quality: Safe Use of Opioids Does Pt have an Active Cancer Diagnosis on the Problem List?: No Quality: Stroke Does the patient have a stroke diagnosis?: No Physical Exam Vital Signs: Vital Signs: Last Vital Signs Temp 97.4 F 05/11/24 07:33 Pulse 106 H 05/11/24 07:33 Resp 16 05/11/24 07:33 BP 127/79 05/11/24 07:33 Pulse Ox 96 05/11/24 07:33 O2 Del Method Room Air 05/11/24 07:33 BMI result Body Mass Index 34.3 Const: Other: General: AO X 3, no acute distress Resp: CTA bilateral CVS: S1,S2,RRR GI: +BS, NT, no distention Skin: No rash Neuro: motor grossly intact Psych: appropriate affect DS: Data Data Completed and Pending Completed studies during hospitalization [Text1]: Procedures Detoxification Services for Substance Abuse Treatment (09/07/23) Labs on day of discharge: Laboratory Results - last 24 hr 05/10/24 05/10/24 05/10/24 10:05 10:05 10:05 WBC 7.8 RBC 3.92 L Hgb 11.7 L Hct 35.9 L MCV 91.6 MCH 29.8 MCHC 32.6 RDW 13.6 Plt Count 258 MPV 9.8 Absolute Nucleated RBC 0.000 Nucleated RBC % (auto) 0.0 Hold Purple Top Sodium 137 Cancelled Potassium 3.8 Cancelled Chloride 104 Carbon Dioxide Anion Gap BUN Creatinine Estim Creat Clear Calc Estimated GFR Random Glucose Calcium Total Bilirubin Direct Bilirubin AST ALT Alkaline Phosphatase Total Protein Albumin Triglycerides Amylase Lipase Urine Opiates Screen Ur Buprenorphine Scrn Ur Oxycodone Screen Urine Methadone Screen Urine Fentanyl Screen Ur Barbiturates Screen Ur Phencyclidine Scrn Ur Amphetamines Screen U Benzodiazepines Scrn Urine Cocaine Screen U Marijuana (THC) Screen 05/10/24 05/10/24 05/10/24 10:05 10:05 10:05 WBC RBC Hgb Hct MCV MCH MCHC RDW Plt Count MPV Absolute Nucleated RBC Nucleated RBC % (auto) Hold Purple Top Sodium Potassium Chloride Cancelled Carbon Dioxide 26 Cancelled Anion Gap 11 L Cancelled BUN 3 L Creatinine Estim Creat Clear Calc Estimated GFR Random Glucose Calcium Total Bilirubin Direct Bilirubin AST ALT Alkaline Phosphatase Total Protein Albumin Triglycerides Amylase Lipase Urine Opiates Screen Ur Buprenorphine Scrn Ur Oxycodone Screen Urine Methadone Screen Urine Fentanyl Screen Ur Barbiturates Screen Ur Phencyclidine Scrn Ur Amphetamines Screen U Benzodiazepines Scrn Urine Cocaine Screen U Marijuana (THC) Screen 05/10/24 05/10/24 05/10/24 10:05 10:05 10:05 WBC RBC Hgb Hct MCV MCH MCHC RDW Plt Count MPV Absolute Nucleated RBC Nucleated RBC % (auto) Hold Purple Top Sodium Potassium Chloride Carbon Dioxide Anion Gap BUN Cancelled Creatinine 0.58 Cancelled Estim Creat Clear Calc 138.4 Cancelled Estimated GFR > 60 Random Glucose Calcium Total Bilirubin Direct Bilirubin AST ALT Alkaline Phosphatase Total Protein Albumin Triglycerides Amylase Lipase Urine Opiates Screen Ur Buprenorphine Scrn Ur Oxycodone Screen Urine Methadone Screen Urine Fentanyl Screen Ur Barbiturates Screen Ur Phencyclidine Scrn Ur Amphetamines Screen U Benzodiazepines Scrn Urine Cocaine Screen U Marijuana (THC) Screen 05/10/24 05/10/24 05/10/24 10:05 10:05 10:05 WBC RBC Hgb Hct MCV MCH MCHC RDW Plt Count MPV Absolute Nucleated RBC Nucleated RBC % (auto) Hold Purple Top Sodium Potassium Chloride Carbon Dioxide Anion Gap BUN Creatinine Estim Creat Clear Calc Estimated GFR Cancelled Random Glucose 112 Cancelled Calcium 8.3 L Cancelled Total Bilirubin 0.9 Direct Bilirubin AST ALT Alkaline Phosphatase Total Protein Albumin Triglycerides Amylase Lipase Urine Opiates Screen Ur Buprenorphine Scrn Ur Oxycodone Screen Urine Methadone Screen Urine Fentanyl Screen Ur Barbiturates Screen Ur Phencyclidine Scrn Ur Amphetamines Screen U Benzodiazepines Scrn Urine Cocaine Screen U Marijuana (THC) Screen 05/10/24 05/10/24 05/10/24 10:05 10:05 10:05 WBC RBC Hgb Hct MCV MCH MCHC RDW Plt Count MPV Absolute Nucleated RBC Nucleated RBC % (auto) Hold Purple Top Sodium Potassium Chloride Carbon Dioxide Anion Gap BUN Creatinine Estim Creat Clear Calc Estimated GFR Random Glucose Calcium Total Bilirubin Cancelled Direct Bilirubin 0.5 Cancelled AST 162 H Cancelled ALT 60 H Alkaline Phosphatase Total Protein Albumin Triglycerides Amylase Lipase Urine Opiates Screen Ur Buprenorphine Scrn Ur Oxycodone Screen Urine Methadone Screen Urine Fentanyl Screen Ur Barbiturates Screen Ur Phencyclidine Scrn Ur Amphetamines Screen U Benzodiazepines Scrn Urine Cocaine Screen U Marijuana (THC) Screen 05/10/24 05/10/24 05/10/24 10:05 10:05 10:05 WBC RBC Hgb Hct MCV MCH MCHC RDW Plt Count MPV Absolute Nucleated RBC Nucleated RBC % (auto) Hold Purple Top Sodium Potassium Chloride Carbon Dioxide Anion Gap BUN Creatinine Estim Creat Clear Calc Estimated GFR Random Glucose Calcium Total Bilirubin Direct Bilirubin AST ALT Cancelled Alkaline Phosphatase 95 Cancelled Total Protein 6.2 L Cancelled Albumin 3.4 L Triglycerides Amylase Lipase Urine Opiates Screen Ur Buprenorphine Scrn Ur Oxycodone Screen Urine Methadone Screen Urine Fentanyl Screen Ur Barbiturates Screen Ur Phencyclidine Scrn Ur Amphetamines Screen U Benzodiazepines Scrn Urine Cocaine Screen U Marijuana (THC) Screen 05/10/24 05/11/24 10:05 05:30 WBC RBC Hgb Hct MCV MCH MCHC RDW Plt Count MPV Absolute Nucleated RBC Nucleated RBC % (auto) Hold Purple Top SEE NOTE Sodium Potassium Chloride Carbon Dioxide Anion Gap BUN Creatinine Estim Creat Clear Calc Estimated GFR Random Glucose Calcium Total Bilirubin Direct Bilirubin AST ALT Alkaline Phosphatase Total Protein Albumin Cancelled Triglycerides 166 H Amylase 14 L Lipase 8 Urine Opiates Screen Not Detected Ur Buprenorphine Scrn Not Detected Ur Oxycodone Screen Not Detected Urine Methadone Screen Not Detected Urine Fentanyl Screen Not Detected Ur Barbiturates Screen Not Detected Ur Phencyclidine Scrn Not Detected Ur Amphetamines Screen Not Detected U Benzodiazepines Scrn Not Detected Urine Cocaine Screen POSITIVE H U Marijuana (THC) Screen Not Detected Discharge Plan Discharge Anticipated Discharge Date/Time: 05/11/24 08:16 Patient Disposition: Home, Self-Care Discharge Diagnosis: acute on chronic pancreatitis with intractable abdominal pain nausea and vomiting Referrals: Anai Lane HADOOP ADMIN [Primary Care Provider] - 1 Week Discharge Medications: New oxycodone 5 mg Tablet 5 mg PO Q4H PRN (Reason: Pain, Moderate(Pain Scale 4-6)) Qty: 15 0RF Rx Instructions: Partial Fill upon patient request. Continued trazodone 100 mg Tablet 100 mg PO BEDTIME 30 Days Qty: 30 0RF prazosin 5 mg Capsule 5 mg PO BEDTIME 30 Days Qty: 30 0RF doxepin 50 mg capsule 1 cap PO BEDTIME gabapentin 600 mg tablet 600 mg PO TID aripiprazole 10 mg tablet 1 tab PO BEDTIME lorazepam 1 mg tablet 1 mg PO TID pantoprazole 40 mg Tablet,Delayed Release (Dr/Ec) 40 mg PO DAILY@0630 Creon 12,000-38,000 -60,000 unit capsule,delayed release(DR/EC) 2 cap PO TIDAC lamotrigine 25 mg tablet 75 mg PO BEDTIME folic acid 1 mg tablet 1 mg PO DAILY bupropion HCl 300 mg tablet extended release 24 hr 300 mg PO DAILY Discharge Orders: Discharge Order (Routine); Ordered 05/11/24 Ordered By: Mihir Freitas Diet: Advance to usual diet Activity on Discharge: As tolerated Stand Alone Forms: Patient Portal Discharge page Print Language: Yoruba Care Plan Goals: recovering from acute on chronic pancreatitis with nausea and vomiting Health Concerns: alcoholism chronic pancreatitis obesity Plan of Treatment: avoid alcohol and maintain sobriety take all your medications as directed, including pancreatic enzyme replacement. Follow-up with your doctor within a week, call for appointment. Assessment: See above Patient Instructions: Pancreatitis (DC), Abuse of Alcohol (DC)
--- NOTE | 2024-05-11 08:44 | MHC.CM.PN ---
Patient medically cleared for dc home self care. will provide transport ~3pm. RN aware.
--- NOTE | 2024-05-11 10:48 | PC.NURSE ---
Pt asking for IV Pain medication, pt educated that she is discharged and waiting for her ride and will not be getting IV Pain meds before discharge. Pt is agreeable with this and can have another dose of oral pain meds before leaving.
[2024-05-13 15:14] LABS: Immunoglobulin G Subclass 1 404 mg/dL (382-929); Immunoglobulin G Subclass 2 178 mg/dL (241-700); Immunoglobulin G Subclass 3 62 mg/dL (22-178); Immunoglobulin G Subclass 4 41.4 mg/dL (4-86); Immunoglobulin G Total 722 mg/dL (600-1640)
== END 2024-05-11 12:28 | disposition home or self-care (01) ==
LOC: HO.ED 05-08 03:30 → HO.EDOVER 05-08 05:58 → HO.IMC 05-08 07:29 → HO.S3 05-10 00:32
PROVIDERS: Internal Medicine; Physician Assistant Medical; Admitting Provider Student in an Organized Health Care Education/Training Program; Emergency Provider Emergency Medicine Emergency Medical Services; PCP Nurse Practitioner Adult Health; Visit Provider Internal Medicine
DX: K86.1 Other chronic pancreatitis (principal); K85.90 Acute pancreatitis without necrosis or infection, unspecified; R10.12 Left upper quadrant pain; F10.10 Alcohol abuse, uncomplicated; R11.2 Nausea with vomiting, unspecified; E66.9 Obesity, unspecified; Z68.31 Body mass index [BMI] 31.0-31.9, adult; Z79.899 Other long term (current) drug therapy
CPT/HCPCS: 36415; 74176; 76705; 80048; 80053; 80076; 80307; 81001; 82150; 82784; 83690; 84478; 84702; 85025; 85027; 96361; 96365; 96366; 96375; 96376; 99221; 99285; J0737; J1171; J1200; J2060; J2405; J2470; J2765; J3411; J7120; S9485

== ENCOUNTER → 2024-05-08 01:10 | Outpatient (BNV) | payer OTHER, SELFPAY | PROVIDERS: Emergency Provider Emergency Medicine Emergency Medical Services; PCP Nurse Practitioner Adult Health; Visit Provider Radiology Diagnostic Radiology | DX: K76.0 Fatty (change of) liver, not elsewhere classified (principal); R16.0 Hepatomegaly, not elsewhere classified | CPT/HCPCS: 74176; 76705 ==

== ENCOUNTER → 2024-05-08 05:54 | Outpatient (BNV) | payer OTHER, SELFPAY | PROVIDERS: Admitting Provider Student in an Organized Health Care Education/Training Program; Emergency Provider Emergency Medicine Emergency Medical Services; PCP Nurse Practitioner Adult Health; Visit Provider Physician Assistant | DX: R11.2 Nausea with vomiting, unspecified (principal); K86.1 Other chronic pancreatitis; E66.811 Obesity, class 1; F10.10 Alcohol abuse, uncomplicated | CPT/HCPCS: 99223; 99499 ==

== ENCOUNTER 2024-08-23 03:05 | Observation (INO) | payer OTHER, SELFPAY ==
[2024-08-23] VITALS (9 sets, daily range): BP systolic 108–151; BP diastolic 55–100; PULSE 77–120; RESP 13–20; TEMP 36.4–36.9; O2SAT 93–98; BMI 28.3; BMI 31.4
--- NOTE | ~2024-08-23 | CT_ITS ---
CLINICAL HISTORY: pain, ? pancreatitis CT abdomen and pelvis with contrast Comparison: CT/SR - CT ABDOMEN PELVIS WO IV CON - 05/08/24 02:27 EST Findings: Prominent esophageal mural thickening, suggesting esophagitis. Hepatomegaly with steatosis. Dystrophic pancreatic calcifications with prominence of the pancreatic duct suggesting sequela of pancreatitis. No discrete lesion. No acute inflammatory changes. Bilateral perinephric stranding, nonspecific. Lobulated renal contours, nonspecific. Nonobstructive bilateral subcentimeter renal calculi measuring no more than 3 mm. No bowel obstruction, pneumoperitoneum, or pneumatosis. Pelvic contents unremarkable. Normal appendix. Bladder is decompressed with mural thickening, nonspecific. No acute fracture. IMPRESSION: 1. Prominent esophageal mural thickening, suggesting esophagitis. 2. Nonobstructive bilateral subcentimeter renal calculi measuring no more than 3 mm. 3. Chronic pancreatitis. This document has been electronically signed by: Lan Proctor MD on 08/23/2024 05:43:40
--- OUTSIDE RECORDS SUMMARY | 2024-08-23 03:12 | XMS_ITS | Data Portability ---
Author Organization [facility] [address] Address [address] [place] [address] Care Team Providers Care Hypertrichologist Name Role Phone MATI SCHNEIDER Primary Care Provider Assessment No assessment recorded. Plan of Treatment Reminders Order Date Submit Date Provider Last Modified By Organization Details Last Modified Time Details Appointments None recorded. Lab None recorded. Referral None recorded. Procedures None recorded. Surgeries None recorded. Imaging None recorded. Medication Orders Lidocaine Viscous 2 % mucosal solution 2022 023 [id number], [address] [place] [address], [id number], 3 13:56:49 valacyclovi r 1 gram tablet 2022 023 [id number], [address] [place] [address], [id number], 3 13:56:50 Lidocaine Viscous 2 % mucosal solution 2022 023 [facility][id number], [address] [place] [address], [id number], 3 20:01:27 Patient TargetsNo targets recorded. Patient Instructions Encounter Date Encounter Id Patient Instructions Last Modified By Organization Details Last Modified Time 11/17/2022 [id number] Based on your Presentation, Exam, and Lab Testing you are being diagnosed with gingivostomatitis The following are my other recommendations to help with symptoms and is important for this diagnosis: 1. Do not share any food or drinks - strep is passed through direct saliva exchange (NOT IN THE AIR) 2. Change your toothbrush in 3-4 days so that you don't re-infect yourself after you complete the antibiotic. 3. Take Ibuprofen or Tylenol if you do not have any allergies to these medications. If you take a blood thinner you should not take NSAIDS like Ibuprofen. These medication will help with the inflammation in your respiratory tract which should help the cough. (I would alternate between Tylenol 650 mg and your Ibuprofen 600 mg every 4 hours) 4. Do not take any Cold Medications that have a Decongestant in it - this will dry out your throat and make the sore throat worse. 5. Drinking Hot Tea with honey can help coat and soothe your throat. 6. You would be considered contagious for the next 24-48 hours, or until fever resolves. I would be seen again if you develop any of the following symptoms. 1. Fever > 101.0 2. Stiff neck - where you can't turn your neck 3. Trouble swallowing your saliva - drooling 4. Swelling of a lymph node in your throat that is painful to touch 5. Difficulty breathing 6. Severe Headache Thank you for using [facility] today, please feel free to contact our office if you have any questions or concerns. [email or web address] Not available 11/17/2022 20:04:23 11/29/2022 [id number] canker sore: car e instructions [email or web address] Not available 11/29/2022 13:56:47 Reason for Referral None Reported. Problems Name Problem SNOMED Code Status Onset Date Resolution Date Notes Provider Name and Address Organization Details Recorded Time Pancreatitis 00182206 Active Katelynn Ruszala null, PA - [facility] 19:38:29 Acid reflux 851446722 Active Katelynn Ruszala null, PA - [facility] 19:38:40 Anxiety 67464814 Active Katelynn Ruszala null, PA - [facility] 19:38:47 Insomnia 711682856 Active Katelynn Ruszala null, PA - [facility] 19:38:55 Bipolar disorder 43961489 Active 2022 Guerline Batista null, PA - [facility] 13:11:03 Problem Notes None recorded. Procedures Surgical History Date Name Laterality Status Provider Name and Address Organization Details Recorded Time procedure on foot completed Katelynnlaron Colonla PA - [facility] 11/17/2022 19:40:09 Imaging Results None recorded. Procedure Notes None recorded. Medical Equipment None Reported. Allergies Allergen ID Allergen Name Allergen Category Reaction Reaction Severity Criticality Documentation Date Start Date Code Code System Note Provider Name and Address Organization Details Recorded Time 011960 ibuprofen medicatio n Not available Not available Not available 11/17/2022 5640 RxNorm Katelynn Mauriciozala null, PA - [facility] 19:36:01 498971 acetamino phen medicatio n Not available Not available Not available 11/17/2022 161 RxNorm Katelynn Ruszala null, PA - [facility] 19:36:19 [id number] [employer] environme nt,medica tion Not available Not available Not available 11/17/2022 38115 6 RxNorm Katelynn Ruszala null, PA - [facility] 19:36:27 Medications Name Sig Start Date Stop Date Status Note LastModified by Organization Details LastModified Time Lidocaine Viscous 2 % mucosal solution Take 10 mL every 4 hours by oral route as needed for 5 days. 023 active Not Available Not Available Not Avai lable valacyclovir 1 gram tablet Take 1 tablet every 12 hours by oral route for 10 days. 023 active Not Available Not Available Not Avai lable pantoprazole 20 mg tablet,delayed release Take 1 tablet every day by oral route. active Not Available Not Available No t Available lorazepam active Not Available Not Corine ilable Not Available trazodone active Not Available Not Corine ilable Not Available Creon active Not Available Not Availa ble Not Available Vitals Date Recorded Body height Body mass index (BMI) Body weight Pain severity - 0-10 verbal numeric rating [Score] - Reported Body temperature Respiratory rate Oxygen saturation Oxygen saturation in Arterial blood by Pulse oximetry Heart rate Systolic blood pressure Diastolic blood pressure Provider Name and Address Organization Details Last Updated DateTime 3 165.1 cm 28.3 kg/m2 94680.7 g 10 97.1 [degF] 18 /min 97 % 97 % 96 /min 122 mm[Hg] 91 mm[Hg] Katelynn Lozada PA - [facility] 3 19:43:08 Date Recorded Body height Body mass index (BMI) Body weight Pain severity - 0-10 verbal numeric rating [Score] - Reported Respiratory rate Oxygen saturation Oxygen saturation in Arterial blood by Pulse oximetry Heart rate Body temperature Systolic blood pressure Diastolic blood pressure Provider Name and Address Organization Details Last Updated DateTime 3 165.1 cm 28.3 kg/m2 33793.7 g 9 18 /min 98 % 98 % 103 /min 98.1 [degF] 134 mm[Hg] 81 mm[Hg] Guerline Goldmayte PA [facility] 3 13:17:58 Social History Question Answer Notes LastModified by Organizat ion Details LastModified Time Tobacco Smoking Status Current Every Day Smoker Katelynn herzog PA [facility] 11/17/2022 19:39:46 What Is Your Level Of Alcohol Consumption? Occasional Information not available 11/17/2022 How Many Times Per Week Do You Consume Alcohol? Less Than 1 Time Per Week Information not available 11/17/2022 Have You Had Direct Contact, Or Contact During Intimacy, With Monkeypox Rash, Scabs, Or Body Fluids From A Person With Monkeypox? No Information not available 11/17/2022 How Much Tobacco Do You Smoke? 2 PPW Information not available 11/17/2022 Have You Recently Traveled Abroad? No Information not available 11/17/2022 Sex: Unknown Functional Status None recorded. Mental Status None recorded. Family History Relationship Description Onset Age of this Age Resolved Age Notes LastModified by Organization Details LastModified Time Maternal Grandmother Malignant neoplastic disease nruszala Not available 2022 19:39:18 Medical History No medical history recorded. Gynecological History Statement/Question Response Date of LMP 05/18/2022 Is there any chance of ? No Obstetrics History GPAL:G 0 P 0 0 0 0 Immunizations Vaccine Type Date Status Note Provider Nam e and Address Organization Details Recorded Time Influenza, split virus, quadrivalent, PF 02/12/2020 completed Katelynn herzog PA - [facility] 11/17/2022 19:35:39 Past Encounters Encounter ID Performer Location Encounter Start Date Encounter Closed Date Diagnosis/Indication Diagnosis SNOMED-CT Code Diagnosis ICD10 Code Diagnosis Note [id number] [address] [place] [address] 01/09/2017 19:01:44 01/09/2017 20:34:26 [id number] [facility] [address] [address] [place] [address] 11/17/2022 19:16:22 11/17/2022 20:04:03 Aphthous ulcer of mouth 125442036 K12.0 Hand foot and mouth disease 791792076 B08.4 [id number] Alejandro Lagos MD [address] [facility] [address] [place] [id number] 11/29/2022 12:56:12 11/29/2022 14:01:12 Painful mouth 395072103 K13.79 Aphthous u lcer of mouth 896619239 K12.0 Health Concerns Section Related Observation LastModified by Organization Detai ls LastModified Time None Recorded Concern Status LastModified by Organization Details LastModified Time None Recorded Advance Directives Directive None Recorded Payers Encounter Date Sequence Insurance Name Policy Number Policy Ramirez Covered Member ID Ramirez Member ID Guarantor Name 01/09/2017 1 [facility] (MEDICAID REPLACEMENT - HMO) Rufina Schaefer [id number] Rufina Schaefer 11/17/2022 1 [facility] (MEDICAID HMO) [id number] Rufina Schaefer [id number] Rufina Schaefer 11/29/2022 1 [facility] (MEDICAID HMO) [id number] Rufina Schaefer [id number] Rufina Schaefer Notes Date Note Type Note Provider Name and Address Organization Details Recorded Time 11/17/2022 text/html Generic HPI TemplateReported bypatient.Notes:42 y.o female pt presents with 8 days of painful white ulcerative lesions inside of mouth. Pt denies any other sx's. Tried OTC meds without relief. KODI BALDWIN [address] [place], [phone], [facility] - [facility] 11/23/2022 13:47:39 11/29/2022 text/html Generic HPI TemplateReported bypatient.Notes:42 y.o female pt presents with2 weeks white ulcerative lesions inside of mouth. TRied lidocaine, hasnyt helped Pt denies any other sx's. Tried OTC meds without relief. Alejandro Lagos MD [address] [place], [phone], [facility] - [facility] 11/29/2022 13:57:48 OBGyn Episode No OBEpisode recorded.
--- OUTSIDE RECORDS SUMMARY | 2024-08-23 03:12 | XMS_ITS | Data Portability ---
Author Organization [place] - [facility] Address [address] [place] [address] Assessment No assessment recorded. Plan of Treatment Reminders Order Date Submit Date Provider Last Modified By Organization Details Last Modified Time Details Appointments None recorded. Lab None recorded. Referral psychiatris t referral - 33 yo with comorbid depression, anxiety, ptsd, and h/o Alcohol and opiate dependence Please evaluate and treat. 2013 015 [email or web address] Not available 08:23:00 Procedures None recorded. Surgeries None recorded. Imaging None recorded. Medication Orders clonidine HCl 0.1 mg tablet 2013 014 [facility][id number], [address] [place], [address], 4 12:56:11 Creon 12,000-38,0 00-60,000 unit capsule,del ayed release 2013 014 [facility][id number], [address] [place], [address], 4 12:56:11 ketorolac 10 mg tablet 2013 014 [facility][id number], [address] [place], [address], 4 12:56:11 Patient TargetsNo targets recorded. Patient Instructions Encounter Date Encounter Id Patient Instructions Last Modified By Organization Details Last Modified Time 03/05/2014 [id number] post-traumatic stress disorder (PTSD): care instructions Not available 03/05/2014 12:58:31 acute alcohol intoxication: care instructions Not available 03/05/2014 12:58:31 anxiety disorder : care instructions [email or web address] Not available 03/05/2014 12:56:11 learning about anxiety disorders [email or web address] Not available 03/05/2014 12:56:11 Reason for Referral Psychiatrist Referral for An xiety disorder 33 yo with comorbid depression, anxiety, ptsd, and h/o Alcohol and opiate dependence Please evaluate and treat. Referring Physician: Ayanna Villanueva, Family Medicine, Encounter Date: 03/05/2014 Results Created Date Observation Date Name Description Value Unit Range Abnormal Flag Note LastModifiedBy Organization Detail LastModifiedTime 10/09/19 24 10/09/2023 XR, ankle , 3 or more view Victor Manuel doshi [facility] [address] [place] [address] XRay Report Signed [place] t: Kae Schaefer MR#: [id number] 1950 : 1980 Acct:H [id number] Age/Se x: 43 / F ADM Date: Loc: TOM.MAB R Attend ing Dr: Paul MARIEE Orderi ng Physic rodri: Paul MARIEE Date of Servic e: Proced ure(s) : XR ankle RT min 3V Access ion Number (s): [id number] H cc: unknow n,pcp Study: XR ankle RT min 3V HISTOR Y: right ankle pain Age: 43 years Gender : Female Compar jorge: None. Additi onal inform ation: 3 images . Specif ic views reques alf (if any): Findin gs: No acute fractu re is seen. No ankle joint disloc ation seen. Mixed lucent /septa alf appear ing lesion within the distal diaphy sis of the fibula . Exhibi ts some endost eal scallo ping. Orthop edic screw throug h the fifth metata rsal, partia lly visual ized. Electr onical ly Signed in Song cribe By Yvette in Rupali fay MD 043 XR/XR ankle RT min 3V Impres noa: Partia lly lucent lesion throug h the distal shaft of the fibula . Indete rminat e. Recomm end MRI of the right lower extrem ity withou t and with IV contra st for furthe r evalua tion. See body of report . Dictat ed By: Yvette in Rupali fay MD Signed By: 1453 DD/DT: 1006 TD/TT: 1006 Transc riptio nist: [email or web address] [facility] [address] , [place], [address], 10/17/2023 09:43:42 10/23/19 24 10/23/2023 XR, ankle , 3 or more view Hesulmawrena d [facility] [address] [place] [address] XRay Report Signed [place] t: Kae Schaefer MR#: [id number] 1950 : 1980 Acct:H [id number] Age/Se x: 43 / F ADM Date: Loc: HE.MAB R Attend ing Dr: Paul MARIEE Orderi ng Physic rodri: Paul MARIEE Date of Servic e: Proced ure(s) : XR ankle RT min 3V Access ion Number (s): [id number] H cc: unknow n,pcp Study: XR ankle RT min 3V HISTOR Y: right ankle pain Age: 43 years Gender : Female Compar jorge: 10/09/19 24 Additi onal inform ation: 3 images . Specif ic views reques alf (if any): Findin gs: No acute or healin g fractu re seen. The ankle mortis e alignm ent appear s within normal limits . Mixed lucent /septa alf appear ing lesion within the distal diaphy sis of the fibula . Exhibi ts some endost eal scallo ping. Appear s simila r to recent prior radiog raph. Orthop edic screw throug h the fifth metata rsal again seen. Electr onical ly Signed in Song cribe By Yvette in Rupali fay MD 027 XR/XR ankle RT min 3V Impres noa: Partia lly lucent lesion throug h the distal shaft of the fibula . Indete rminat e findin g. Please also refer to prior radiog raph 10/09/19 24. No acute or healin g fractu re seen. See body of report . Dictat ed By: Yvette fay MD Signed By: 1107 DD/DT: 928 TD/TT: 928 Transc riptio nist: [email or web address] [facility] [address] [place] [address], [id number], 10/24/2023 14:54:22 Result Notes None recorded. Problems Name Problem SNOMED Code Status Onset Date Resolution Date Notes Provider Name and Address Organization Details Recorded Time Chronic pancreatit is 491724389 [facility] 4 12:[facility] Anxiety disorder 128137089 Active [facility] 4 12:56:10 Chronic hepatitis 10192775 Active Due to Alcoholism [facility] 4 12:56:10 Endometrio sis Active Ayanna Villanueva DO [facility] 4 12:46:08 Posttrauma tic stress disorder 62924218 Active [facility] 4 12:56:10 Alcohol abuse 57373445 Active [facility] 4 12:56:10 Alcoholism 2873743 Active [facility] 4 12:46:08 Opioid dependence 67440751 Active Ayanna Villanueva DO [facility] 4 12:56:10 Gastric ulcer 215991337 Active 2012 [facility]idooDO [facility] 4 12:46:08 Problem Notes None recorded. Procedures Surgical History Date Name Laterality Status Provider Name and Address Organization Details Recorded Time dilation and curettage completed Guerline Pantoja [place] - [facility] 02/13/2014 13:35:50 Imaging Results Imaging Date Name Status [facility] Details LastModified Time 10/09/2023 XR, ankle, 3 or more view completed [email or web address] [facility] [address] [place] [address], [id number], 10/17/2023 09:43:42 10/23/2023 XR, ankle, 3 or more view completed [email or web address] [facility] [address] [place] [address], [id number], 10/24/2023 14:54:22 Procedure Notes None recorded. Medical Equipment None Reported. Allergies No known drug allergies Medications Name Sig Start Date Stop Date Status Note LastModified by Organization Details LastModified Time vitamin b-1 100 mg tabs TAKE 1 TABLET BY MOUTH TWO TIMES A DAY active Not Available Not Available No t Available m-dryl12.5 %/lido2%/g [id number] 0 active Not Available Not Available Not Available doxepin 50 mg capsule 1 CAPSULE BY MOUTH DAILY AT BEDTIME FOR 90 FAYS active Not Available Not Available No t Available nystatin 100,000 unit/mL oral suspension TAKE 5 ML SWISH AND HOLD IN MOUTH FOR 2 MINUTES, THEN SWALLOW OR EXPECTORA TE 5 TIMES A DAY active Not Available Not Available No t Available clonidine HCl 0.1 mg tablet TAKE 1 TABLET BY MOUTH 3 TIMES A DAY NEEDED active No Pending appt, KATY: 03/05/14- was given PSYCHIATR Y REFERRAL Not Available Not Available Not Available gabapentin 600 mg tablet TAKE 1 TABLET BY MOUTH EVERY DAY active Not Available Not Available No t Available trazodone 50 mg tablet Take 1 tablet every day by oral route. active Not Available Not Available No t Available cetirizine 10 mg tablet active Not Available Not Available Not Available azithromyc in 250 mg tablet TAKE PER PACKAGE active Not Available Not Available No t Available ibuprofen 800 mg tablet TAKE 1 TABLET BY MOUTH THREE TIMES A DAY FOR 20 DAYS. INS COVERS 1 TABLET/DA Y active Not Available Not Available No t Available Lidocaine Viscous 2 % mucosal solution SWISH AND SPIT 5-10ML BY MOUTH EVERY 3 HOURS NEEDED FOR THROAT PAIN active Not Available Not Available No t Available valacyclov ir 1 gram tablet TAKE 2 TABLETS BY MOUTH TWICE DAILY FOR 1 DAY AT FIRST SIGN OF SYPMTOMS OR SIGN OF OUTBREAK active Not Available Not Available No t Available naltrexone 50 mg tablet active Not Available Not Available Not Available ondansetro n HCl 4 mg tablet TAKE 1 TABLET BY MOUTH EVERY 8 HOURS active Not Available Not Available No t Available prednisone 20 mg tablet TAKE 2 TABLETS BY MOUTH DAILY FOR 5 DAYS active Not Available Not Available No t Available melatonin 3 mg tablet TAKE 1 TABLET BY MOUTH EVERY NIGHT AT BEDTIME NEEDED FOR INSOMNIA active Not Available Not Available No t Available valacyclov ir 500 mg tablet TAKE 1 TABLET BY MOUTH TWICE DAILY FOR 3 DAYS active Not Available Not Available No t Available omeprazole 40 mg capsule,de layed release Take 1 capsule every day by oral route. active Not Available Not Available No t Available tramadol 50 mg tablet TAKE 1 TABLET BY MOUTH EVERY 12 HOURS FOR 14 DAYS NEEDED FOR PAIN active Not Available Not Available No t Available lamotrigin e 25 mg tablet 3 TABLET BY MOUTH DAILY AT BEDTIME,X 90 DAYS active Not Available Not Available No t Available ketorolac 10 mg tablet Take 1 tablet every day by oral route prn. 2013 active Not Available Not Available Not Avai lable prazosin 5 mg capsule 1 CAPSULE BY MOUTH DAILY AT BEDTIME FOR 90 DAYS active Not Available Not Available No t Available trazodone 100 mg tablet TAKE 1 TABLET BY MOUTH DAILY AT BEDTIME TAKE 1 TABLET BY MOUTH EVERY NIGHT AT BEDTIME active Not Available Not Available No t Available cephalexin 500 mg capsule TAKE 1 CAPSULE BY MOUTH EVERY 6 HOURS UNTIL FINISHED active Not Available Not Available No t Available paroxetine 30 mg tablet TAKE 1 TABLET BY MOUTH EVERY DAY active Not Available Not Available No t Available pantoprazo le 40 mg tablet,del ayed release TAKE 1 TABLET BY MOUTH DAILY active Not Available Not Available No t Available erythromyc in 5 mg/gram (0.5 %) eye ointment APLLY HALF INCHES TO THE AFFECTED EYE FOUR TIMES PER DAY FOR 7 DAYS active Not Available Not Available No t Available trazodone 150 mg tablet 1 TABLET BY MOUTH DAILY AT BEDTIME,X 90 DAYS,INST R:DOSE INCREASE active Not Available Not Available No t Available nicotine 21 mg/24 hr daily transderma l patch active Not Available Not Available Not Available folic acid 1 mg tablet TAKE 1 TABLET BY MOUTH EVERY DAY active Not Available Not Available No t Available Dairy-Aid 3,000 unit tablet active Not Available Not Available Not Available oxycodone 30 mg tablet Take 1 tablet every 6 hours by oral route. active prn - Opioid dependenc e Not Available Not Available Not Available lorazepam 1 mg tablet 1 TABLET BY MOUTH 3 TIMES A DAY,X30 DAYS NEEDED FOR ANXIETY active Not Available Not Available No t Available epinephrin e 0.3 mg/0.3 mL injection, auto-injec tor active Not Available Not Available Not Available ibuprofen 600 mg tablet TAKE 1 TABLET BY MOUTH THREE TIMES A DAY FOR 30 DAYS active Not Available Not Available No t Available methylpred nisolone 4 mg tablets in a dose pack FOLLOW PACKAGE DIRECTION S active Not Available Not Available No t Available hydromorph one 4 mg tablet TAKE 1 TABLET BY MOUTH EVERY 4 HOURS NEEDED FOR PAIN active Not Available Not Available No t Available loratadine 10 mg tablet active Not Available Not Available Not Available amoxicilli n 875 mg-potassi um clavulanat e 125 mg tablet TAKE 1 TABLET BY MOUTH EVERY 12 HOURS WITH FOOD active Not Available Not Available No t Available nicotine 7 mg/24 hr daily transderma l patch APPLY 1 PATCH TOPICALLY EVERY DAY. REMOVE OLD PATCH BEFORE APPLYING NEW ONE. active Not Available Not Available No t Available Ventolin HFA 90 mcg/actuat ion aerosol inhaler INHALE 2 PUFFS BY MOUTH EVERY 6 HOURS active Not Available Not Available No t Available buspirone 15 mg tablet TAKE 1 TABLET BY MOUTH THREE TIMES DAILY active Not Available Not Available No t Available oxycodone 5 mg tablet TAKE 1/2 TABLET BY MOUTH EVERY 4 HOURS NEEDED FOR MODERATE PAIN active Not Available Not Available No t Available hydroxyzin e pamoate 25 mg capsule TAKE 1 CAPSULE BY MOUTH THREE TIMES DAILY NEEDED FOR ANXIETY active Not Available Not Available No t Available aripiprazo le 10 mg tablet TAKE 1 TABLET BY MOUTH EVERYDAY AT BEDTIME active Not Available Not Available No t Available aripiprazo le 15 mg tablet TAKE 1 TABLET BY MOUTH AT BEDTIME active Not Available Not Available No t Available bupropion HCl XL 300 mg 24 hr tablet, extended release 1 TABLET BY MOUTH EVERY 24 HOURS,X90 DAYS active Not Available Not Available No t Available bupropion HCl XL 150 mg 24 hr tablet, extended release TAKE 1 TABLET BY MOUTH EVERY 24 HOURS active Not Available Not Available No t Available chlorhexid ine gluconate 0.12 % mouthwash RINSE MOUTH WITH 15ML FOR 30 SECONDS EVERY AM AND PM AFTER BRUSHING TEETH SPIT WHEN DONE DO NOT SWALLOW active Not Available Not Available No t Available Vivitrol 380 mg intramuscu lar suspension ,extended release active Not Available Not Available Not Available oxycodone 10 mg tablet TAKE 1 TABLET BY MOUTH EVERY 6 HOURS NEEDED FOR PAIN active Not Available Not Available No t Available Creon 12,000-38, 000-60,000 unit capsule,de layed release TAKE 2 CAPSULES BY MOUTH 3 TIMES A DAY active KATY: 03/05/14, No Pending appts Not Available Not Available Not Available Creon 36,000 unit-114,0 00 unit-180,0 00 unit capsule,de layed release TAKE 1 CAPSULE BY MOUTH THREE TIMES DAILY active Not Available Not Available No t Available Vitals Date Recorded Body weight Heart rate Body mass index (BMI) Body height Body temperature Systolic blood pressure Diastolic blood pressure Provider Name and Address Organization Details Last Updated DateTime 4 72957.7 4706 g 100 /min 23.7 kg/m2 162.56 cm 98.4 [degF] 120 mm[Hg] 94 mm[Hg] Britt Rodriguez MA [facility] 4 10:53:27 Social History Question Answer Notes LastModified by Organizat ion Details LastModified Time Tobacco Smoking Status Former Smoker BRENDA Desouza MA [facility] 03/05/2014 10:53:27 What Is Your Level Of Alcohol Consumption? None -- EtOH Level On 01/17 462, But Pt States No Intake Information not available 03/05/2014 What Is Your Level Of Caffeine Consumption? Occasional 1 Cpd [email or web address] Information not available 03/05/2014 How Much Tobacco Do You Chew? None Information not available 03/05/2014 Which Illicit Or Recreational Drugs Have You Used? None Information not available 03/05/2014 Members Of Household 1 Information not available 03/05/2014 Pap Smear 09/17/2013 Family Planning In [place] [email or web address] Information not available 03/05/2014 Marital Status Single Boyfrined Nasi 2 Years [email or web address] Information not available 03/05/2014 How Many Children Do You Have? 0 [email or web address] Information not available 03/05/2014 Are You Sexually Active? Yes [email or web address] Information not available 03/05/2014 Sex: Unknown Functional Status Question Answer Note LastModified by Organizat ion Details LastModified Time What is your exercise level? Occasional soccer [email or web address] Information not available 03/05/2014 Mental Status None recorded. Family History Nothing Reported. Medical History No medical history recorded. Gynecological History Statement/Question Response 3 Abortions spontaneous Para 0030 Gynecologic procedures/surgery D&C x 2 Contraception None Last menstrual period 02/07/2014 Obstetrics History GPAL:G 0 P 0 0 0 0 Past Encounters Encounter ID Performer Location Encounter Start Date Encounter Closed Date Diagnosis/Indication Diagnosis SNOMED-CT Code Diagnosis ICD10 Code Diagnosis Note [id number] Denisse Schaffer [facility] [address] [place] [address] 03/05/2014 10:31:10 03/05/2014 11:16:16 Chronic pancreatitis 542479606 GI specialist appointmen t at [facility] 04/09/14 per patient. Will refill her Creon until then but notified patient that she needs to be followed by GI specialist for both hepatitis and pancreatit is. Refilled Ketorolac, SERD and given h/o peptic ulcer, notified patient she should discontinu e if she notices any change to her pain. Discussed No controlled substances for patient given her h/o both Alcohol abuse and opioid dependence . Pt agrees with this. Discussed importance of Alcohol abstinence for her comorbid conditions . Anxiety disorder 803876870 with comorbid depression , PTSD and abuse history. Continue Paxil, Clonidine refilled. Recommend establishi care with Psychiatri st in this area. No SI/HI currently. Alcohol abuse 38283836 P t denies any current use despite recent + screen in the ED. Discussed importance of abstinence , risks and benefits. Opioid dependence 32412244 No controlled substances prescribed including tramadol given dependence risk. Discussed risks of dependence . No s/s of withdrawal currently - pt states she hasn't had any for a while. Posttrauma tic stress disorder 87627678 Psych as per above. Chronic hepatitis 16950440 Due to Alcohol. Plan per above. [id number] [facility] [address] [place] [address], [address] [place] [address] 10/09/2023 09:54:39 10/09/2023 10:27:16 Sprain of right ankle 5897791569 [id number] S93.491A This a very pleasant 43-year-ol d female who is currently in recovery for alcoholism being seen for right ankle sprain sustained approximat alexis 1 month ago. She missed a stair and with as she was walking down the stairs and twisted her and ankle. X-rays were taken which did not show any overt fractures or bony abnormalit ies. There is some tenderness over the lateral aspect of the calcaneal fibular ligament. There is mild swelling. Recommend ice, ibuprofen, elevation. Will also place her into a Aircast stirrup. She will also transition to well supportive shoes. She is currently wearing flip-flops . I will see her in follow-up in 2 weeks for repeat x-ray clinical exam. Patient agrees with plan. [id number] [facility] [address] [place] [address] 10/23/2023 09:22:39 10/23/2023 09:42:56 Sprain of right ankle 5816011617 [id number] S93.491A This a very pleasant 43-year-ol d female who is currently in recovery for alcoholism being seen for right ankle sprain sustained approximat alexis 1 month ago. She missed a stair and with as she was walking down the stairs and twisted her and ankle. X-rays were taken which did not show any overt fractures or bony abnormalit ies. There is some tenderness over the lateral aspect of the calcaneal fibular ligament. There is mild swelling. Recommend ice, ibuprofen, elevation. Will also place her into a Aircast stirrup. She will also transition to well supportive shoes. She is currently wearing flip-flops . I will see her in follow-up in 2 weeks for repeat x-ray clinical exam. Patient agrees with plan. October 23, 2023. Patient being seen for follow-up. She is now about 6 weeks postinjury . She continues to have some tenderness over the calcaneofi bular ligament and continues with mild swelling. No tenderness on medial aspect of the ankle. Patient continues with the Aircast stirrup. Would recommend that she continue with the Aircast stirrup and wearing a well supportive shoe. She can also continue with ibuprofen 800 mg to be taken 3 times daily with food. She can also intermitte ntly take Tylenol 1000 mg. I will see her in follow-up in 2 weeks. No x-rays will be needed. Patient agrees with plan. Patient agrees with plan. Health Concerns Section Related Observation LastModified by Organization Detai ls LastModified Time None Recorded Concern Status LastModified by Organization Details LastModified Time None Recorded Advance Directives Directive None Recorded Payers Encounter Date Sequence Insurance Name Policy Number Policy Ramirez Covered Member ID Ramirez Member ID Guarantor Name 03/05/2014 1 [facility] [employer] (MEDICAID HMO) [id number] Rufina Schaefer [id number] Rufina Schaefer 10/09/2023 1 [facility] [employer] (HMO) [id number] Rufina Schaefer [id number] Rufina Zaldivar Olive 10/23/2023 1 [facility] [employer] (HMO) [id number] Rfuina Kathleenave [id number] Rufina J Olive Notes Date Note Type Note Provider Name and Address Organization Details Recorded Time 4 text/html Pt. Present today for new pt. OVTiffanie CUELLO Pt comes in today to discuss her pancreatitis, needing refills on 1. Oxycodone, 2. Tramadol, 3. Creon, and 4. Clonidine. Pt states that she has not received refills on these medications from her previous PCP but did get refills on her other medications. She states she has been in the ED multiple times due to pain and they have given her an Rx for Ketorolac which has helped her pain symptoms related to endometriosis and chronic pancreatitis. She states she takes 1 ketorolac at most per day on some days for her pain and this controls it well. She does not recall her last dose of Oxycodone or tramadol. She states she takes the Clonidine prn for Anxiety which helps her symptoms. She recently moved to this area and has not set up yet with a GI specialist (but has an appointment scheduled) or a Psychiatrist. She states her Anxiety has been acting up as she does not have her Clonidine prescription. She denies SI/HI, denies racing thoughts, flight of ideas, hyperactivity, or depression currently. She notes epigastric abdominal pain and suprapubic pain intermittently but not currently with no n/v/d. She denies chest pains, palpitations, headaches, weakness. DO mino Wan, [facility] 03/05/2014 12:56:36 4 text/html OrthopedicsReported bypatient.Location:Right ; Ankle Quality:Intermittent;Thr obbing Severity:Mild-Moderate Duration:1 months Context:No change Aggravating Factors:Activity;Walking ;Climbing Stairs ImagingX-ray (10/09/23) KODI GARCIA [address] [place] [address], [phone], [facility] 10/09/2023 10:28:22 4 text/html OrthopedicsReported bypatient.Location:Right ; Ankle Quality:Intermittent;Ach ing Severity:Mild-Moderate Duration:1 months Context:No change Aggravating Factors:Activity;Walking ;Climbing Stairs ImagingX-ray (10/23/23) KODI GARCIA [address] [place] [address], [phone], [facility] 10/23/2023 11:51:39 OBGyn Episode No OBEpisode recorded.
--- OUTSIDE RECORDS SUMMARY | 2024-08-23 03:12 | XMS_ITS | Data Portability ---
Author Organization [facility], [employer] Address [address] [place] [address] Care Team Providers Care Cafeteria Manager Name Role Phone DILLON MCKEON Primary Care Provider Assessment Encounter Date Assessment Date Assessment LastModified by Organization Details LastModified Time 05/14/2024 05/14/2024 I am seeing the patient today under the supervision of Dr. Mahan who was available but who did not see the patient. HPI: 43-year-old female presents today with chief complaint of right foot pain. Approximately 2 months ago she jumped out of her truck turned her right foot awkwardly. Using [facility], placed in a CAM boot. She has had continued pain in the lateral border of her right foot. She previously had a contralateral left fifth metatarsal ORIF. Past family, medical, social history and review of systems has been reviewed, updated and is located in the patient? s chart. Examination: the patient is alert and cooperative in no acute distress. Afebrile, vital signs stable. There is active ROM of the hips and knees, calves are soft and nontender there is active range of motion of the right foot and ankle. There is no tibiotalar tenderness. There is tenderness the base of the fifth metatarsal. Tendon function is intact. There is some pain with eversion against resistance. X-rays ordered, obtained and reviewed at [facility] he views of the foot, ordered and interpreted today demonstrate a displaced fracture of the base of fifth metatarsal with no evidence of periosteal bone reaction Impression:. Displaced united fracture, right fifth metatarsal base. Plan: Talked about conservative versus surgical treatment with her. She is interested in having this fixed. Arrangements will be made. [email or web address] Not available 05/14/2024 10:55:47 07/05/2024 07/05/2024 CHIEF COMPLAINT: Postop left foot HISTORY OF PRESENT ILLNESS: Rufina is a 43-year-old woman who is over 6 weeks status post ORIF of left fifth metatarsal base fracture. She is doing well. She reports some incisional pain. She has been in a CAM boot, using a knee scooter. She denies any fevers, chills or paresthesias. She is here today with her significant other. Past family, medical, social history and review of systems has been reviewed and is located in the patient? s chart. PHYSICAL EXAM: Musculoskeletal: With boot removed, her incision is well-healed. Steri-Strips were removed. She has some dry flaky skin without infectious changes. There is appropriate incisional sensitivity and tenderness. Hardware is not prominent. She is distally neurovascularly intact. X-RAYS: Three standing views of the left foot were ordered, obtained and reviewed by me today at [facility], demonstrating interval healing of her fracture with well-positioned intact hardware. IMPRESSION: 6 weeks postop, doing well PLAN: She is doing well at this time. She may begin to weight-bear as tolerated in her CAM boot. I would like her to wear the boot for the next 3 weeks and she may then transition to a supportive sneaker. I offered physical therapy, which she declined. 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 She will follow up with us in 7-8 weeks for reevaluation and repeat x-rays to assess alignment and healing. All questions were answered. [email or web address] Not available 07/05/2024 14:31:50 Plan of Treatment Reminders Order Date Submit Date Provider Last Modified By Organization Details Last Modified Time Details Appointments RECHECK 15 2024 11:15A M Namrata Olvera PA-C Not available Not available Not available Lab None recorde d. Referral None recorde d. Procedures None recorde d. Surgeries orthopa edic surgery (SURG) 2024 025 [facility] [place], [address] [place], [address], 05/14/2024 15:52:23 Imaging XR, foot, 3 or more view - RM 108-- RECHECK 3V FOOT WB 2024 025 berkley [facility], [address], [place], [address], 07/21/2024 19:44:38 XR, foot, 3 or more view - room 110 3V L foot 2024 025 stella [facility], [address], [place], [address], 05/14/2024 15:37:27 Medication Orders tramado l 50 mg tablet 2024 025 [id number], [address] [place] [address], [id number], 05/14/2024 10:55:43 Patient TargetsNo targets recorded. Patient InstructionsNo instructions recorded. Reason for Referral None Reported. Results Created Date Observation Date Name Description Value Unit Range Abnormal Flag Note LastModifiedBy Organization Detail LastModifiedTime 07/05/1907/05/2024 XR, foot, 3 or more view [email or web address]:/ [email or web address] ?Encry pted=s hAaTro YD8dLq bEUv6g %2BXZw aYqtaq 0bqfl% 2Fg9IQ a4ajBk vP9nXo QUaueC m3YtLR FvZlgJ JJ8mAn HZtai3 1u9616 AC0Kqb XiMUqW vKiQtr MwF INTERFACE [facility] [address], [place], [address], 07/05/2024 14:19:22 07/05/19 25 07/05/2024 XR, foot, 3 or more view [email or web address] ?Encry pted=s hAaTro YD8dLq bEUv6g %2BXZw aYqtaq 0bqfl% 2Fg9IQ a4ajBk vP9nXo QUaueC m3YtLR FvZlgJ JJ8mAn HZtai3 5r5846 AC0Kqb XiMUqW vKiQtr MwF INTERFACE [facility] [address], [place], [address], 07/05/2024 14:19:24 Result Notes None recorded. Problems Name Problem SNOMED Code Status Onset Date Resolution Date Notes Provider Name and Address Organization Details Recorded Time No complaints [id number] Active Status : 'A'; Not Available [facility] 09:21:44 Problem Notes None recorded. Procedures Surgical History None recorded. Imaging Results Imaging Date Name Status LastModified by Organiz ation Details LastModified Time 07/05/2024 XR, foot, 3 or more view completed INTERFACE [facility] [address], [place], [address], 07/05/2024 14:19:22 07/05/2024 XR, foot, 3 or more view completed INTERFACE [facility] [address], [place], [address], 07/05/2024 14:19:24 Procedure Notes None recorded. Medical Equipment None Reported. Allergies Allergen ID Allergen Name Allergen Category Reaction Reaction Severity Criticality Documentation Date Start Date Code Code System Note Provider Name and Address Organization Details Recorded Time 73808 Motrin medicatio n Not available Not available Not available 07/10/20232022 8 RxNorm Not Available [facility] 4 12:08:36 44428 Tylenol medicatio n Not available Not available Not available 07/10/20232022 3 RxNorm Not Available [facility] 12:08:37 Medications Name Sig Start Date Stop Date Status Note LastModified by Organization Details LastModified Time vitamin b-1 100 mg tabs TAKE 1 TABLET BY MOUTH TWO TIMES A DAY active Not Available Not Available No t Available doxepin 50 mg capsule TAKE 1 CAPSULE BY MOUTH AT BEDTIME active Not Available Not Available No t Available gabapentin 600 mg tablet TAKE 1 TABLET BY MOUTH THREE TIMES A DAY active Not Available Not Available No t Available trazodone 50 mg tablet active Not Available Not Available Not Available ibuprofen 800 mg tablet TAKE 1 TABLET BY MOUTH THREE TIMES A DAY FOR 20 DAYS. INS COVERS 1 TABLET/DA Y active Not Available Not Available No t Available naltrexone 50 mg tablet TAKE 1 TABLET BY MOUTH EVERY DAY active Not Available Not Available No t Available ondansetron HCl 4 mg tablet TAKE 1 TABLET BY MOUTH EVERY 8 HOURS 07/05 completed Not Available Not Available Not Available melatonin 3 mg tablet active Not Available Not Available No t Available tramadol 50 mg tablet TAKE 1 TABLET BY MOUTH TWICE DAILY FOR 7 DAYS NEEDED active Not Available Not Available No t Available lamotrigine 25 mg tablet TAKE 3 TABLETS BY MOUTH DAILY AT BEDTIME FOR 90 DAYS active Not Available Not Available No t Available prazosin 5 mg capsule TAKE 1 CAPSULE BY MOUTH DAILY AT BEDTIME,X 90 DAYS active Not Available Not Available No t Available hydromorpho ne 2 mg tablet TAKE 1 TABLET BY MOUTH EVERY 12 HOURS FOR 7 DAYS NEEDED 07/05 completed Not Available Not Available Not Available trazodone 100 mg tablet TAKE 1 TABLET BY MOUTH DAILY AT BEDTIME TAKE 1 TABLET BY MOUTH EVERY NIGHT AT BEDTIME active Not Available Not Available No t Available cephalexin 500 mg capsule TAKE 1 CAPSULE BY MOUTH EVERY 6 HOURS UNTIL FINISHED active Not Available Not Available No t Available pantoprazol e 40 mg tablet,neyda yed release TAKE 1 TABLET BY MOUTH EVERY DAY active Not Available Not Available No t Available trazodone 150 mg tablet TAKE 1 TABLET BY MOUTH EVERYDAY AT BEDTIME active Not Available Not Available No t Available clotrimazol e-betametha sone 1 %-0.05 % topical cream APPLY TO AFFECTED AREA TWICE A DAY FOR 14 DAYS active Not Available Not Available No t Available nicotine 21 mg/24 hr daily transdermal patch active Not Available Not Available Not Available folic acid 1 mg tablet TAKE 1 TABLET BY MOUTH EVERY DAY active Not Available Not Available No t Available lorazepam 1 mg tablet TAKE 1 TABLET BY MOUTH THREE TIMES DAILY NEEDED FOR ANXIETY active Not Available Not Available No t Available Ecotrin 325 mg tablet,ente sergio coated Take 1 tablet every day by oral route for 30 days. 07/05 completed Not Available Not Available Not Available ibuprofen 600 mg tablet TAKE 1 TABLET BY MOUTH THREE TIMES A DAY FOR 30 DAYS active Not Available Not Available No t Available methylpredn isolone 4 mg tablets in a dose pack TAKE 6 TABLETS ON DAY 1 DIRECTED ON PACKAGE AND DECREASE BY 1 TAB EACH DAY FOR A TOTAL OF 6 DAYS active Not Available Not Available No t Available hydromorpho ne 4 mg tablet TAKE 1 TABLET BY MOUTH EVERY 4 HOURS NEEDED FOR PAIN 07/05 completed Not Available Not Available Not Available loratadine 10 mg tablet active Not Available Not Available Not Available amoxicillin 875 mg-potassiu m clavulanate 125 mg tablet TAKE 1 TABLET BY MOUTH TWO TIMES A DAY FOR 5 DAYS active Not Available Not Available No t Available nicotine 7 mg/24 hr daily transdermal patch APPLY 1 PATCH TOPICALLY EVERY DAY. REMOVE OLD PATCH BEFORE APPLYING NEW ONE. active Not Available Not Available No t Available Ventolin HFA 90 mcg/actuati on aerosol inhaler INHALE 2 PUFFS EVERY 4 HOURS X 30 DAYS NEEDED FOR WHEEZING/ SHORTNESS OF BREATH active Not Available Not Available No t Available oxycodone 5 mg tablet TAKE 1 TABLET BY MOUTH EVERY 4 TO 6 HOURS FOR 3 DAYS 07/05 completed Not Available Not Available Not Available Daily-Farhana tablet TAKE 1 TABLET BY MOUTH EVERY DAY active Not Available Not Available No t Available aripiprazol e 10 mg tablet TAKE 1 TABLET BY MOUTH EVERYDAY AT BEDTIME active Not Available Not Available No t Available bupropion HCl XL 300 mg 24 hr tablet, extended release TAKE 1 TABLET BY MOUTH EVERY 24 HOURS FOR 90 DAYS active Not Available Not Available No t Available aripiprazol e ARIPipraz ole 10MG Tablet 2022 active Statu s: 'Curr ent'; Not Available Not Available Not Available oxycodone 10 mg tablet TAKE 1 TABLET BY MOUTH EVERY 6 HOURS NEEDED FOR PAIN 07/05 completed Not Available Not Available Not Available Vitamin D3 125 mcg (5,000 unit) tablet TAKE 1 TABLET BY MOUTH EVERY DAY 07/05 completed Not Available Not Available Not Available Eliquis 2.5 mg tablet TAKE 1 TABLET BY MOUTH TWICE DAILY active Not Available Not Available No t Available Creon 36,000 unit-114,00 0 unit-180,00 0 unit capsule,del ayed release TAKE 1 CAPSULE BY MOUTH 3 TIMES A DAY FOR 90 DAYS active Not Available Not Available No t Available Vitals Date Recorded Body height Body mass index (BMI) Body weight Heart rate Body temperature Respiratory rate Systolic blood pressure Diastolic blood pressure Provider Name and Address Organization Details Last Updated DateTime 165.1 cm 31.6 kg/m2 94205.5 5 g 86 /min 98.5 [degF] 20 /min 125 mm[Hg] 79 mm[Hg] SAMY FRANLKIN [facility] 10:39:10 Date Recorded Body height Body mass index (BMI) Body weight Provider Name and Address Organization Details Last Updated DateTime 05/31/2024 165.1 cm 31.6 kg/m2 26252.55 g QUE CABALLERO [facility] 05/31/2024 14:37:55 Date Recorded Body height Body mass index (BMI) Body weight Provider Name and Address Organization Details Last Updated DateTime 07/05/2024 165.1 cm 31.6 kg/m2 49039.55 g DILLON LINARESRizwanaMONIKA Gurmeet [facility] 07/05/2024 14:14:08 Social History None recorded. Functional Status None recorded. Mental Status None recorded. Family History Nothing Reported. Medical History Condition Response Anxiety/Depression Y Bleeding Disorder Y Gynecological HistoryNo gynecological history recorded. Obstetrics History GPAL:G 0 P 0 0 0 0 Past Encounters Encounter ID Performer Location Encounter Start Date Encounter Closed Date Diagnosis/Indication Diagnosis SNOMED-CT Code Diagnosis ICD10 Code Diagnosis Note [id number] MARK ANTHONY Roe [address] [place] [address] 05/14/2024 09:46:22 05/23/2024 16:07:15 Pain in left foot 8556073180 38767 M79.672 Closed fra cture of fifth metatarsal bone 24793189 S92.352A Closed fra cture of base of fifth metatarsal bone 179363168 S92.351A [id number] MARK ANTHONY Carey [facility] [address] [place] [address] 05/31/2024 14:09:16 06/11/2024 14:19:37 Closed fracture of fifth metatarsal bone 71473290 S92.352A [id number] MD YOLANDA Schreiber [address] [place] [address] 07/05/2024 13:52:20 07/21/2024 19:44:37 Pain in left foot 4989062182 47010 M79.672 Postoperative visit 1836 21786 Z48.89 Health Concerns Section Related Observation LastModified by Organization Detai ls LastModified Time None Recorded Concern Status LastModified by Organization Details LastModified Time None Recorded Advance Directives Directive None Recorded Payers Encounter Date Sequence Insurance Name Policy Number Policy Ramirez Covered Member ID Ramirez Member ID Guarantor Name 05/14/2024 1 [facility] (MEDICAID HMO) [id number] Rufina Zaldivar J Olive [id number] Rufina Zen Olive 05/31/2024 1 [facility] (MEDICAID HMO) [id number] Rufina J J Olive [id number] Rufina J Olive 07/05/2024 1 [facility] (MEDICAID HMO) [id number] Rufina J J Olive [id number] Rufina Zaldivar Olive Notes Date Note Type Note Provider Name and Address Organization Details Recorded Time 05/31/2024 text/html I am seeing this patient under the supervision of Dr. Mahan, who was available but who did not see the patient. HPI: Patient is a 43-year-old female presenting today about 2 weeks status post ORIF left fifth metatarsal base fracture, calcaneal bone graft harvest. Date of surgery 05/17/2024. She has been doing fairly well since surgery. Has been nonweightbearing in a post operative splint. Compliant with nonweightbearing status. Taking Eliquis for DVT prophylaxis. Denies any interval trauma. Denies any fevers, chills, or paresthesias. PFMSH, Meds and ROS reviewed, updated and signed by me, and is located in the patient's chart. PHYSICAL EXAMINATION: The patient is well appearing and in no apparent distress. Alert and oriented x 3. Examination of her left foot reveals well healing surgical incisions with sutures in place. Well aligned midfoot. Tolerates some ankle sagittal plane range of motion. Calf soft, nontender. Sensation intact to light touch in the left lower extremity. IMPRESSION: 2 weeks status post surgery as above PLAN: Discussed the findings and situation with the patient today. She seems be doing fairly well overall. Sutures were removed and Steri-Strips applied. She was placed into a tall cam boot. She will remain nonweightbearing for another 4 weeks. She may remove her boot to work on ankle range of motion which was demonstrated in the office today. She will continue with Eliquis for DVT prophylaxis. Follow up in 4 weeks. Call with questions or concerns. Namrata Olvera PA-C [address] [facility] [address], [place], [address], [facility] 05/31/2024 15:09:27 OBGyn Episode No OBEpisode recorded.
[2024-08-23 03:14] LABS: Basophils Absolute Auto 0.1 X10*3/uL (0.0-0.2); Basophils Percent Auto 0.5 % (0-2); Eosinophils Absolute Auto 0.1 X10*3/uL (0.0-0.4); Eosinophils Percent Auto 0.3 % (0-4); Hematocrit 42.8 % (37.0-47.0); Hemoglobin 14.8 g/dl (12.0-16.0); Imm Gran Abs Auto 0.13 X10*3/uL (0.00-0.03); Imm Gran Pct Auto 0.7 % (0.0-0.4); Lymphocytes Absolute Auto 3.1 X10*3/uL (1.2-4.9); Lymphocytes Percent Auto 16.5 % (20-40); MANUAL DIFF FLAG SCAN; Mean Corpuscular HGB Conc 34.6 g/dl (31.0-35.0); Mean Corpuscular Hemoglobin 30.6 pg (27.0-33.0); Mean Corpuscular Volume 88.6 fL (80.0-98.0); Mean Platelet Volume 9.5 fL (9.4-12.3); Monocytes Absolute Auto 1.5 X10*3/uL (0.1-1.2); Monocytes Percent Auto 8.2 % (2-11); Neutrophils Absolute Auto 13.7 x10*3/uL (2.0-8.3); Neutrophils Percent Auto 73.8 % (45-73); Platelet Count 393 X10*3/uL (160-400); Red Blood Count 4.83 X10*6/uL (4.20-5.50); Red Cell Distribution Width 13.5 % (11.0-16.0); SCAN SMEAR FLAG 1; White Blood Count 18.5 X10*3/uL (4.8-10.8)
[2024-08-23 03:39] LABS: Alanine Aminotransferase 25 U/L (0-31); Alkaline Phosphatase 135 U/L (39-117); Anion Gap 24 (12-20); Aspartate Amino Transferase 89 U/L (5-31); Blood Urea Nitrogen 3 mg/dL (9-16); Calcium 9.3 mg/dL (8.4-10.2); Carbon Dioxide 22 mmol/L (22-29); Chloride 96 mmol/L (96-108); Creatinine Clr Calc Pharmacy 80.2; Estimated Glomerular Filt Rate > 60; Ethanol < 10 mg/dL; Glucose Random 169 mg/dL (60-115); Lipase 7 U/L (8-78); Potassium 4.8 mmol/L (3.3-5.1); Sodium 137 mmol/L (135-145); Total Protein 7.9 g/dL (6.5-8.0)
[2024-08-23 03:44] LABS: SLIDE REVIEW VERIFIED
--- NOTE | 2024-08-23 04:02 | PC.NURSE ---
verbal orders taken for patient meds and CT from DR thakkar
[2024-08-23] MEDS: Metoclopramide HCl 10 MG/2 ML VIAL IVPUSH (04:08)
[2024-08-23] MEDS: 0.9 % Sodium Chloride 1,000 ML 999 ML IV ×2 (04:08→08:36)
[2024-08-23] MEDS: HYDROmorphone HCl 1 MG/ML SYRINGE IVPUSH ×2 (04:08→09:11)
[2024-08-23] MEDS: iohexoL 350 MG/ML 100 ML INFUS..BTL 85 ML IV (04:37)
[2024-08-23 08:22] LABS: Magnesium 1.8 mg/dL (1.6-2.6)
[2024-08-23] MEDS: Famotidine/PF 20 MG/2 ML VIAL IVPUSH (08:38)
[2024-08-23] MEDS: Magnesium Hydrox/Alum Hydrox 30 ML ORAL.SUSP PO ×2 (08:38→20:17)
--- NOTE | 2024-08-23 08:55 | ED.ABDPAIN ---
HPI - Abdominal Pain General Chief Complaint: Abdominal Pain Stated Complaint: pancreatitis Time Seen by Provider: 08/23/24 08:01 Source: patient, EMS, RN notes reviewed and old records reviewed Mode of arrival: EMS History of Present Illness ED Provider: Salena Cadena PA-C HPI narrative: 44-year-old female with a past medical history of gastritis, anxiety, depression, bipolar, PTSD, chronic pancreatitis, ETOH use disorder, presenting to the ED via EMS complaining of upper abdominal pain radiating to esophagus x3 days with associated nausea, vomiting and inability to tolerate p.o. States symptoms are similar to prior pancreatitis. States to drinking EtOH over the past 3 days after work. Does report history of ETOH withdrawal 15 years ago, denies withdrawal symptoms at this time. Denies CP/SOB, fever, chills, suspicious food intake Related Data Home Medications ?Medication ?Instructions ?Recorded ?Confirmed aripiprazole 10 mg tablet 1 tab PO BEDTIME 05/21/21 05/08/24 doxepin 50 mg capsule 1 cap PO BEDTIME 05/21/21 05/08/24 gabapentin 600 mg tablet 600 mg PO TID 05/21/21 05/08/24 ucrozi-cfhmswje-yiojtyl 2 cap PO TIDAC 05/21/21 05/08/24 12,000-38,000-60,000 unit capsule,delayed rel (Creon) lorazepam 1 mg tablet 1 mg PO TID Anxiety 05/21/21 05/08/24 pantoprazole 40 mg tablet,delayed 40 mg PO DAILY@0630 05/21/21 05/08/24 release bupropion HCl 300 mg 24 hr tablet, 300 mg PO DAILY 09/07/23 05/08/24 extended release folic acid 1 mg tablet 1 mg PO DAILY 09/07/23 05/08/24 lamotrigine 25 mg tablet 75 mg PO BEDTIME 09/07/23 05/08/24 Previous Rx's ?Medication ?Instructions ?Recorded prazosin 5 mg capsule 5 mg PO BEDTIME 30 days #30 caps 02/18/20 trazodone 100 mg tablet 100 mg PO BEDTIME 30 days #30 tabs 02/18/20 oxycodone 5 mg tablet 5 mg PO Q4H PRN Pain, 05/11/24 Moderate(Pain Scale 4-6) #15 tabs Allergies Allergy/AdvReac Type Severity Reaction Status Date / Time acetaminophen [From Tylenol] AdvReac Stomach Verified 08/23/24 02:54 Upset ibuprofen AdvReac Stomach Verified 08/23/24 02:54 Upset morphine AdvReac Gastrointestinal Verified 08/23/24 02:54 Upset bees Allergy Severe Anaphylaxis Uncoded 08/23/24 02:54 Review of Systems Review of Systems Yes all other systems are reviewed and are negative Constitutional: Reports as per [facility] Past Medical History Attestation statement: The following information was validated with the patient. Source: old records reviewed Medical History Pancreatitis Back pain Alcohol use disorder, severe, dependence Gastritis Gastritis Endometriosis Constipation Anxiety Depression Bipolar disorder Suicidal behavior PTSD (post-traumatic stress disorder) Surgical History History of ankle surgery Social History Social History Household Members: Spouse Housing: House Do you presently have visiting nurse or other home services: No Alcohol intake: current Alcohol type: beer and hard liquor Comment: pt reports no effects as of yet Patient Tobacco Use Status: Current someday Tobacco user Tobacco use type: Cigarette Smoked in Last 30 Days: Yes e-Cigarette/Vaping Use: Never Used Second Hand Smoke Exposure: Yes Use of substances other than those prescribed or required for medical reasons: No Substance Use Type: Crack/Cocaine Advance Directives: Yes Advance Directives on File: Yes Advance Directives Date on File: 09/07/23 service: No Sexual orientation: Straight/Heterosexual Physical Exam ED Vital Signs: Vital Signs - 24 hr 08/23/24 02:53 08/23/24 04:08 08/23/24 06:00 Temperature 98 F 98.4 F Pulse Rate 111 H 90 Respiratory Rate 20 20 20 Blood Pressure 128/89 136/82 Pulse Oximetry 95 96 Oxygen Delivery Method Room Air Room Air BMI result Body Mass Index 28.3 Const General: cooperative, healthy appearing and no acute distress Orientation/consciousness: patient oriented x3 Limitations: no limitations HENMT Head: Yes normal to inspection and Yes atraumatic Ears: hearing grossly normal bilaterally General nose exam: Normal external nose present Face and sinus: Yes normal facial exam Eyes General: appearance normal, both eyes and all related structures EOM: EOMs intact bilaterally Neck Neck: Yes normal visual inspection and Yes no meningeal signs Resp Effort & Inspection: normal respiratory effort and no respiratory distress Auscultation: clear to auscultation bilaterally Cardio Rate: regular rate Heart sounds: S1 normal heart sound present and S2 normal heart sound present GI Inspection: Yes normal to inspection Palpation (GI): Soft to palpation, Tenderness to palpation present (GI) in the epigastrum; with no rebound tenderness, no guarding and not rigid General: Yes no CVA tenderness Back/Spine/Pelvis Back: no CVA tenderness Skin Rashes: no rashes Wounds: no wounds Neuro General: patient oriented x3, tone normal, moves all extremities and no meningeal signs Cranial nerves: Yes CN's II-XII intact bilaterally Gait exam (Neuro): Normal gait present Extrem General: Yes normal to inspection Course Course Course Narrative: --leukocytosis of 18.5 > likely reactive from nausea/vomiting rather than severe sepsis. Anion gap of 24 likely from ketosis/ETOH abuse -ethanol negative CT abdomen pelvis w IV con IMPRESSION: 1. Prominent esophageal mural thickening, suggesting esophagitis. 2. Nonobstructive bilateral subcentimeter renal calculi measuring no more than 3 mm. 3. Chronic pancreatitis. > plan to admit for further management. No evidence of acute infection. No evidence of severe sepsis. Medical Decision Making Medical Decision Making [facility] Narrative: 44-year-old female with a past medical history of gastritis, anxiety, depression, bipolar, PTSD, chronic pancreatitis, ETOH use disorder, presenting to the ED via EMS complaining of upper abdominal pain radiating to esophagus x3 days with associated nausea, vomiting and inability to tolerate p.o. On exam initially tachycardic, abdomen soft with epigastric ttp, no rebound or guarding. Concern for acute on chronic pancreatitis vs GERD/gastritis. Lower suspicion for atypical ACS. Lower suspicion for severe sepsis at this time. Unlikely appendicitis/diverticulitis Plan: labs, UA, CT AP, IVF, pain control, re-evaluate Please refer to course for remaining clinical decision making, interpretation of labs/imaging results, and discussions with consultants and/or family members. Differential Diagnosis Differential Diagnoses: The differential diagnosis associated with the presentation includes As above Admission/Observation Consideration of admission/observation: Escalation of care including admission/observation considered Lab Data [facility] Lab Attestation statement: I reviewed the patient's lab results. 08/23/24 03:02 08/23/24 03:03 Labs: Lab Results 08/23/24 08/23/24 08/23/24 Range/Units 03:02 03:03 08:48 WBC 18.5 H (4.8-10.8) X10*3/uL RBC 4.83 D (4.20-5.50) X10*6/uL Hgb 14.8 D (12.0-16.0) g/dl Hct 42.8 (37.0-47.0) % MCV 88.6 (80.0-98.0) fL MCH 30.6 (27.0-33.0) pg MCHC 34.6 (31.0-35.0) g/dl RDW 13.5 (11.0-16.0) % Plt Count 393 D (160-400) X10*3/uL MPV 9.5 (9.4-12.3) fL Immature Gran % (Auto) 0.7 H (0.0-0.4) % Neut % (Auto) 73.8 H (45-73) % Lymph % (Auto) 16.5 L (20-40) % [place] % (Auto) 8.2 (2-11) % Eos % (Auto) 0.3 (0-4) % Baso % (Auto) 0.5 (0-2) % Lymph # (Auto) 3.1 (1.2-4.9) X10*3/uL [place] # (Auto) 1.5 H (0.1-1.2) X10*3/uL Eos # (Auto) 0.1 (0.0-0.4) X10*3/uL Baso # (Auto) 0.1 (0.0-0.2) X10*3/uL Abs Immat Gran (auto) 0.13 H (0.00-0.03) X10*3/uL Absolute Neuts (auto) 13.7 H (2.0-8.3) x10*3/uL Absolute Nucleated RBC 0.000 (0.0-0.012) X10*3/uL Nucleated RBC % (auto) 0.0 (0.0-0.2) /100WBC Smear Tech's Comments VERIFIED Sodium 137 (135-145) mmol/L Potassium 4.8 D (3.3-5.1) mmol/L Chloride 96 (96-108) mmol/L Carbon Dioxide 22 (22-29) mmol/L Anion Gap 24 H (12-20) BUN 3 L (9-16) mg/dL Creatinine 0.90 (0.5-1.4) mg/dL Estim Creat Clear Calc 80.2 Estimated GFR > 60 Random Glucose 169 H (60-115) mg/dL Lactic Acid 4.1 H* (0.5-2.0) mmol/L Calcium 9.3 D (8.4-10.2) mg/dL Magnesium 1.8 (1.6-2.6) mg/dL Total Bilirubin 1.0 (0.0-1.0) mg/dL AST 89 H (5-31) U/L ALT 25 (0-31) U/L Alkaline Phosphatase 135 H (39-117) U/L Total Protein 7.9 (6.5-8.0) g/dL Albumin 4.0 (3.5-5.0) g/dL Lipase 7 L (8-78) U/L Ethyl Alcohol < 10 mg/dL Independent Interpretation I performed an independent interpretation of an: CT Scan Radiology Impression Discussion of test interpretation with radiology: I have reviewed the radiologist's reading. Independent Historian Clinical information obtained from an independent historian. History obtained from or confirmed by: EMS External Record Review External record reviewed: Inpatient record, Office record, Outpatient record, Prior outpatient labs, Prior outpatient radiology, Primary care record and Outside ED record Tests considered The following testing was considered but not selected: As above Prescription Management I considered prescription management with: Pain Medication Chronic Conditions Patient?s care impacted by: Other Social Determinants Patient?s care significantly limited by Social Determinants of Health including: Other Social Determinant of Health Medications Administered Discontinued Medications Generic Name Dose Route Start Last Admin Trade Name Freq PRN Reason Stop Dose Admin Al Hydroxide/Mg Hydroxide 30 ml 08/23/24 08:05 08/23/24 08:38 Magnesium Hydrox/Alum Hydrox 30 Ml Oral.Susp PO 08/23/24 08:06 30 ml ONCE ONE Administration Famotidine 20 mg 08/23/24 08:05 08/23/24 08:38 Famotidine/Pf 20 Mg/2 Ml Vial IVPUSH 08/23/24 08:06 20 mg ONCE ONE Administration Hydromorphone HCl 1 mg 08/23/24 04:00 08/23/24 04:08 Hydromorphone Hcl 1 Mg/Ml Syringe IVPUSH 08/23/24 04:01 1 mg ONCE ONE Administration Protocol Hydromorphone HCl 1 mg 08/23/24 09:00 08/23/24 09:11 Hydromorphone Hcl 1 Mg/Ml Syringe IVPUSH 08/23/24 09:01 1 mg ONCE ONE Administration Protocol Sodium Chloride 1,000 mls @ 999 mls/hr 08/23/24 04:00 08/23/24 05:45 Ns IV 08/23/24 05:00 Infused .Q1H1M ELIZABETH Infusion Sodium Chloride 1,000 mls @ 999 mls/hr 08/23/24 08:15 08/23/24 08:36 Ns IV 08/23/24 09:15 999 mls/hr .Q1H1M ELIZABETH Administration Iohexol 85 ml 08/23/24 04:36 08/23/24 04:37 Iohexol 350 Mg/Ml 100 Ml Infus..Btl IV 08/23/24 04:37 85 ml ONCE ONE Administration Metoclopramide HCl 10 mg 08/23/24 04:00 08/23/24 04:08 Metoclopramide Hcl 10 Mg/2 Ml Vial IVPUSH 08/23/24 04:01 10 mg ONCE ONE Administration Critical Care Time Critical Care Time Critical Care Time: Yes Total Critical Care Time: 35 Attestation: I have personally provided critical care time exclusive of time spent on separately billable procedures. Time includes review of lab data, radiology results, discussion with consultants, and monitoring for potential decompensation. Intervention performed as documented. Discharge Plan Discharge Clinical Impression: Chronic pancreatitis, Esophagitis Patient Disposition: Admitted As Inpatient Print Language: Choose Not To Answer Sepsis Bolus Exclusion Sepsis Bolus Exclusion CHF/Renal Failure This patient met severe sepsis criteria due to the following condition(s):: Lactate>=4mmol/L In my clinical judgement the administration of 30 ml/kg of crystalloid would be detrimental to this patient due to the patient's following conditions:: Other (patient is not septic) Replace the 30 mls/kg with (Zero amount not acceptable and all fluids for severe sepsis must be given at GREATER than 125 mls/hr) Crystalloids amount given in mls: (rate must be at least 150cc/hr): 2,000 Colloids amount given in mls:: 0
[2024-08-23 09:21] LABS: Lactic Acid 4.1 mmol/L (0.5-2.0)
--- NOTE | 2024-08-23 09:57 | P.HPHOSP_ITS ---
History of Present Illness Date of Service: 08/23/24 Attending physician on admission: Kadie Sher Chief Complaint: N/V abd pain Pt is a 44-year-old female with a PMH significant for chronic pancreatitis,?GERD, alcohol use disorder, and anxiety who presents to the ED with?N/V/abdominal pain times 3 days. Pt reports symptoms began Monday night when she began experiencing nausea, vomiting, left-sided abdominal pain wrapping around to back, as well as substernal and throat pain. Has been unable to tolerate p.o. intake. Reports has been experiencing chronic pancreatitis for the past 15 years and current symptoms feel similar to previous episodes. Also reports has been drinking ?a little bit? daily after work: 1 large Twisted Tea and a couple of nips daily. Last drink yesterday evening at around 18:00. Denies headache, diaphoresis, auditory or visual hallucinations. No tactile disturbances. No tremors. Denies shortness or breath or difficulty breathing. No chest pain/pressure, palpitations. Subjective chills, but no measured fever. In the ED pt was initially tachycardic to 111, vitals otherwise stable and WNL. Labs were significant for leukocytosis 18.5, AST 89, alk-phos 135, lipase low at 7, and lactic acid 4.1. Ethyl alcohol levels undetectable. CT?of abdomen/pelvis showed prominent esophageal mural thickening, suggestive of esophagitis, chronic pancreatitis, and nonobstructive bilateral renal calculi <3 mm. Pt was treated in the ED with 2 L IVF, metoclopramide, Protonix, Maalox, and Dilaudid 1 mg IV x2. Pt admitted to the hospital under observation for treatment and further evaluation of intractable nausea, vomiting, and abdominal pain in the setting of acute on chronic pancreatitis. Review of Systems 2 Review of Systems: Negative except for that which is stated in the HPI. [facility] Medical History Pancreatitis Back pain Alcohol use disorder, severe, dependence Gastritis Gastritis Endometriosis Constipation Anxiety Depression Bipolar disorder Suicidal behavior PTSD (post-traumatic stress disorder) Surgical History History of ankle surgery Social History Household Members: Spouse Housing: House Do you presently have visiting nurse or other home services: No Alcohol intake: current Alcohol type: beer and hard liquor Comment: pt reports no effects as of yet Patient Tobacco Use Status: Current someday Tobacco user Tobacco use type: Cigarette Smoked in Last 30 Days: Yes e-Cigarette/Vaping Use: Never Used Second Hand Smoke Exposure: Yes Use of substances other than those prescribed or required for medical reasons: No Substance Use Type: Crack/Cocaine Advance Directives: Yes Advance Directives on File: Yes Advance Directives Date on File: 09/07/23 service: No Sexual orientation: Straight/Heterosexual Meds Allergies Allergy/AdvReac Type Severity Reaction Status Date / Time acetaminophen [From Tylenol] AdvReac Stomach Verified 08/23/24 02:54 Upset ibuprofen AdvReac Stomach Verified 08/23/24 02:54 Upset morphine AdvReac Gastrointestinal Verified 08/23/24 02:54 Upset bees Allergy Severe Anaphylaxis Uncoded 08/23/24 02:54 Active Medications: Current Medications Calcium Carbonate (Calcium Carbonate 750 Mg Tab.Chew) 750 mg PO Q4H PRN PRN Reason: Heartburn Enoxaparin Sodium (Enoxaparin Sodium 40 Mg/0.4 Ml Syringe) 40 mg SUBCUT Q24H ELIZABETH Magnesium Hydroxide (Milk Of Magnesia 30 Ml Oral.Susp) 30 ml PO DAILY PRN PRN Reason: Constipation Melatonin (Melatonin 3 Mg Tablet) 6 mg PO BEDTIME PRN PRN Reason: Insomnia Ondansetron HCl (Ondansetron Hcl 4 Mg/2 Ml Vial) 4 mg IVPUSH Q8H PRN PRN Reason: Nausea and Vomiting Sodium Chloride (0.9 % Sodium Chloride Flush 3 Ml Syringe) 3 ml IVFLUSH QSHIFT [facility] Home Medications ?Medication ?Instructions ?Recorded ?Confirmed ?Last Taken ?Type aripiprazole 10 mg tablet 1 tab PO BEDTIME 05/21/21 08/23/24 08/20/24 History doxepin 50 mg capsule 1 cap PO BEDTIME 05/21/21 08/23/24 08/20/24 History gabapentin 600 mg tablet 600 mg PO TID 05/21/21 08/23/24 08/20/24 History oyfeyw-gsxowfrf-rkhalea 1 cap PO TIDAC 05/21/21 08/23/24 08/20/24 History 12,000-38,000-60,000 unit capsule,delayed rel (Creon) lorazepam 1 mg tablet 1 mg PO TID Anxiety 05/21/21 08/23/24 08/20/24 History pantoprazole 40 mg tablet,delayed 40 mg PO DAILY@0630 05/21/21 08/23/24 08/20/24 History release bupropion HCl 300 mg 24 hr tablet, 300 mg PO DAILY 09/07/23 08/23/24 08/20/24 History extended release folic acid 1 mg tablet 1 mg PO DAILY 09/07/23 08/23/24 08/20/24 History lamotrigine 25 mg tablet 75 mg PO BEDTIME 09/07/23 08/23/24 08/20/24 History melatonin 3 mg tablet 3 mg PO BEDTIME PRN Sleep 08/23/24 08/23/24 08/20/24 History multivitamin 1 tab PO DAILY 08/23/24 08/23/24 08/20/24 History trazodone 150 mg tablet 150 mg PO BEDTIME 08/23/24 08/23/24 08/20/24 History Physical Exam 2 Vital Signs and Narrative: Vital Signs: Last Vital Signs Temp 98.4 F 08/23/24 06:00 Pulse 90 08/23/24 06:00 Resp 20 08/23/24 06:00 BP 136/82 08/23/24 06:00 Pulse Ox 96 08/23/24 06:00 O2 Del Method Room Air 08/23/24 06:00 BMI result Body Mass Index 28.3 General: AOx3, no acute distress. Non-toxic appearing Resp: CTA bilaterally CVS: S1, S2, RRR GI: +BS, no distention. Mild epigastric and RUQ tenderness Skin: Warm, dry Neuro: Cranial nerves II-XII grossly intact bilaterally. Motor grossly intact bilaterally. No upper extremity tremors noted. Extremities: No edema Psych: Appropriate affect Results Labs 08/23/24 03:02 08/23/24 03:03 Labs: Laboratory Results - last 24 hr 08/23/24 08/23/24 08/23/24 03:02 03:03 08:48 MCV 88.6 MCH 30.6 MCHC 34.6 RDW 13.5 Plt Count 393 D MPV 9.5 Immature Gran % (Auto) 0.7 H Neut % (Auto) 73.8 H Lymph % (Auto) 16.5 L [place] % (Auto) 8.2 Eos % (Auto) 0.3 Baso % (Auto) 0.5 Lymph # (Auto) 3.1 [place] # (Auto) 1.5 H Eos # (Auto) 0.1 Baso # (Auto) 0.1 Abs Immat Gran (auto) 0.13 H Absolute Neuts (auto) 13.7 H Absolute Nucleated RBC 0.000 Nucleated RBC % (auto) 0.0 Smear Tech's Comments VERIFIED Anion Gap 24 H Estim Creat Clear Calc 80.2 Estimated GFR > 60 Random Glucose 169 H Lactic Acid 4.1 H* Calcium 9.3 D Magnesium 1.8 Total Bilirubin 1.0 AST 89 H ALT 25 Alkaline Phosphatase 135 H Total Protein 7.9 Albumin 4.0 Lipase 7 L Ethyl Alcohol < 10 Assessment and Plan (1) Intractable nausea and vomiting: Status: Acute Plan Pt is a 44-year-old female with a PMH significant for chronic pancreatitis,?GERD, alcohol use disorder, and anxiety who presents to the ED with?N/V/abdominal pain times 3 days. Pt admitted to the hospital under observation for treatment and further evaluation of intractable nausea, vomiting, and abdominal pain in the setting of acute on chronic pancreatitis. Intractable nausea, vomiting, abdominal pain Symptoms ongoing x3 days, unable to tolerate p.o. intake CT showing esophagitis and chronic pancreatitis, otherwise no acute abnormalities Abdominal exam with only mild tenderness, pt has not had vomiting for past 8-9 hours Pt received 2 L IVF in the ED, will place on maintenance fluids Pain management, antiemetics, Protonix IV Clear liquid diet, advance as tolerated Consider GI consult if symptoms worsen Acute lactic acidosis Lactic acid 4.1 at 08:48; pt with leukocytosis but no other SIRS criteria within 3 hours Secondary to hypovolemia from intractable N/V, not sepsis Pt received 2 L IVF in the ED and placed on maintenance fluids No indication of active infection that would necessitate antibiotics at this time Leukocytosis WBCs 18.5 time of presentation Likely reactionary in the setting of intractable N/V, not sepsis No indication of active infection that would necessitate antibiotics at this time Alcohol use disorder Pt reports used to drink heavily Ed with hx of alcohol withdrawal Reports he has cut back drastically, currently drinking 1 large Twisted Tea and a couple of nips daily after work Monitor on CIWA Depression/Anxiety Continue omeprazole, bupropion, lamotrigine, prazosin, lorazepam Full Code Attending:?Dr. Sher DVT Prophylaxis: Lovenox Given that pt is experiencing intractable N/V/abdominal pain and unable to tolerate p.o. intake, she will require admission to the hospital under observation for symptomatic treatment with IVF, analgesics, and antiemetics . Quality Stroke Does the patient have a stroke diagnosis?: No VTE Prior VTE?: No VTE Risk Level:: Medical - moderate - high VTE Device Contraindication: Treatment Not Indicated VTE Drug Contraindication: N/A - Med Ordered
[2024-08-23 10:52] LABS: Reflex Lactate? Lactic Acid Added
--- NOTE | 2024-08-23 11:12 | PHA.MEDREC ---
Pharmacy Consult ? Medication Reconciliation Pharmacy has completed the medication reconciliation.Med rec complete, spoke with patient and compared with pharmacy claim history.
[2024-08-23 11:38] LABS: ~Lactic Acid-LAB USE ONLY 2.5 mmol/L (0.5-2.0)
[2024-08-23 11:49] LABS: Cancel Lactic Acid Canceled
[2024-08-23] MEDS: LORazepam 1 MG TABLET PO ×2 (12:37→21:56)
[2024-08-23] MEDS: Lactated Ringers 1,000 ML 100 ML IVCONT (12:38)
[2024-08-23] MEDS: HYDROmorphone HCl 0.5 MG/0.5 ML SYRINGE IVPUSH ×3 (12:48→21:47)
[2024-08-23] MEDS: buPROPion HCl XL 300 MG TAB.ER.24H PO (12:53)
--- OUTSIDE RECORDS SUMMARY | 2024-08-23 13:08 | XMS_ITS | Clinical Summary ---
Author Organization [facility] Address [address] [place] [address] Care Team Providers Care Utility Locate Technician Name Role Phone Unavailable Primary Care Provider Unavailabl e Social History Tobacco Use Types Packs/Day Years Used Date Smoking Tobacco: Never Assessed Comments Unknown Sex and Gender Information Value Date Recorded Sex Assigned at Not on file Legal Sex Female 9:51 PM EST Gender Identity Not on file Sexual Orientation Not on file Plan of Treatment Health Maintenance Due Date Last Done Comments Breast Cancer Screening 1978 DTaP,Tdap,and Td Vaccines (1 - Tdap) 1997 Hepatitis B Vaccines (1 of 3 - 19+ 3-dose series) 1997 Cervical Cancer Screening: P ap Smear 07/26/1999 Colorectal Cancer Screening: Colonoscopy 01/01/2024 Depression Screening 01/01/2024 HIV Screening 01/01/2024 Hepatitis C Screening 01/01/2024 Social Influencers of Health Screening 01/01/2024 COVID-19 Vaccine (2023-2 5 season) 2024 Influenza Vaccine (Season Ended) 2025 HIB Vaccines Aged Out No longer eligi ble based on patient's age to complete this topic HPV Vaccines Aged Out No longer eligi ble based on patient's age to complete this topic Hepatitis A Vaccines Aged Out No long er eligible based on patient's age to complete this topic IPV Vaccines Aged Out No longer eligi ble based on patient's age to complete this topic MMR Vaccines Aged Out No longer eligi ble based on patient's age to complete this topic Meningococcal ACWY Vaccine Aged Out N o longer eligible based on patient's age to complete this topic Meningococcal B Vaccine Aged Out No l onger eligible based on patient's age to complete this topic Pneumococcal Vaccine: Pediat rics (0 to 5 Years) and At-Risk Patients (6 to 64 Years) Aged Out No longer eligible b ased on patient's age to complete this topic RSV Immunization Patients Un kera 20 months Aged Out No longer eligible b ased on patient's age to complete this topic Varicella Vaccines Aged Out No longer eligible based on patient's age to complete this topic
[2024-08-23] MEDS: Gabapentin 600 MG TABLET PO ×2 (15:09→21:51)
[2024-08-23] MEDS: Pantoprazole Sodium 40 MG/10 ML VIAL IVPUSH (15:09)
[2024-08-23] MEDS: Lipase/Prot/Amylase 12/38/60K CAPSULE.DR 1 CAP PO ×2 (15:33→21:50)
[2024-08-23] MEDS: Lipase/Prot/Amylase 24/76/120K 1 CAP CAPSULE.DR PO ×2 (15:33→21:50)
[2024-08-23] MEDS: Calcium Carbonate 750 MG TAB.CHEW 1500 MG PO (20:17)
[2024-08-23] MEDS: Prazosin HCL 5 MG CAPSULE PO (20:18)
[2024-08-23] MEDS: lamoTRIgine 25 MG TABLET 75 MG PO (21:49)
[2024-08-23] MEDS: traZODone HCL 50 MG TABLET 150 MG PO (21:50)
[2024-08-23] MEDS: ARIPiprazole 10 MG TABLET PO (21:51)
[2024-08-23] MEDS: 0.9 % Sodium Chloride Flush 3 ML SYRINGE IVFLUSH (21:53)
[2024-08-24] VITALS (7 sets, daily range): BP systolic 102–111; BP diastolic 63–73; PULSE 88–105; RESP 12–20; TEMP 36.1–36.7; O2SAT 92–95
[2024-08-24] MEDS: HYDROmorphone HCl 0.5 MG/0.5 ML SYRINGE IVPUSH ×5 (02:37→18:49)
[2024-08-24] MEDS: Calcium Carbonate 750 MG TAB.CHEW PO ×2 (03:55→08:19)
[2024-08-24] MEDS: Pantoprazole Sodium 40 MG/10 ML VIAL IVPUSH ×2 (05:52→16:03)
[2024-08-24 06:26] LABS: Mean Corpuscular HGB Conc 32.4 g/dl (31.0-35.0); Mean Corpuscular Hemoglobin 30.3 pg (27.0-33.0); Mean Corpuscular Volume 93.7 fL (80.0-98.0); Mean Platelet Volume 9.7 fL (9.4-12.3); Platelet Count 229 X10*3/uL (160-400); Red Blood Count 3.63 X10*6/uL (4.20-5.50); Red Cell Distribution Width 13.7 % (11.0-16.0); White Blood Count 7.2 X10*3/uL (4.8-10.8)
[2024-08-24 06:42] LABS: Anion Gap 12 (12-20); Blood Urea Nitrogen 3 mg/dL (9-16); Calcium 8.3 mg/dL (8.4-10.2); Carbon Dioxide 28 mmol/L (22-29); Chloride 103 mmol/L (96-108); Estimated Glomerular Filt Rate > 60; Glucose Random 99 mg/dL (60-115); Potassium 3.7 mmol/L (3.3-5.1); Sodium 139 mmol/L (135-145)
[2024-08-24] MEDS: LORazepam 1 MG TABLET PO ×3 (08:07→21:20)
[2024-08-24] MEDS: Lipase/Prot/Amylase 12/38/60K CAPSULE.DR 1 CAP PO ×3 (08:07→16:02)
[2024-08-24] MEDS: Lipase/Prot/Amylase 24/76/120K 1 CAP CAPSULE.DR PO ×3 (08:07→16:03)
[2024-08-24] MEDS: Multivitamin TABLET 1 TAB PO (08:07)
[2024-08-24] MEDS: Folic Acid 1 MG TABLET PO (08:07)
[2024-08-24] MEDS: Gabapentin 600 MG TABLET PO ×3 (08:07→21:17)
[2024-08-24] MEDS: 0.9 % Sodium Chloride Flush 3 ML SYRINGE IVFLUSH ×3 (08:07→21:28)
[2024-08-24] MEDS: buPROPion HCl XL 300 MG TAB.ER.24H PO (08:07)
[2024-08-24] MEDS: Lactated Ringers 1,000 ML 125 ML IVCONT ×2 (10:26→19:09)
--- NOTE | 2024-08-24 11:57 | MHC.CM.PN ---
Patient lives in a single family home w/ . Functionally independent. Denies use of DME or services. PCP Anai Lane HCP on file and verified. Per chart, +AUD. DP: Home self care, to transport. CM will continue to follow.
--- NOTE | 2024-08-24 12:01 | P.PNIM_ITS ---
Subjective Subjective Date of Service: 08/24/24 Interval History: Seen and evaluated this morning feels little better but still has abd pain tolerating clears no other overnight events Review of Systems Review of Systems: Yes all other systems are reviewed and are negative Physical Exam 2 Vital Signs: Vital Signs: Last Vital Signs Temp 97.8 F 08/24/24 11:55 Pulse 104 H 08/24/24 11:55 Resp 18 08/24/24 11:55 BP 108/73 08/24/24 11:55 Pulse Ox 92 08/24/24 11:55 O2 Del Method Room Air 08/24/24 11:55 BMI result Body Mass Index 31.4 Const: Other: Constitutional : interactive, not in distress Cardiovascular : no JVP, no lower extremity edema Respiratory : bilateral chest movement, not in resp distress Gastrointestinal: soft, lax, minimal tenderness Skin : Warm, Dry Neurological : Alert & oriented , No focal deficit Objective Data Active Medications Lipase/Protease/Amylase (Lipase/Prot/Amylase 12/38/60k Capsule.) 1 cap PO TIDAC [facility] Last Admin: 08/24/24 11:27 Dose: 1 cap Documented By: JANEL Lipase/Protease/Amylase (Lipase/Prot/Amylase 24/76/120k 1 Cap Capsule.) 1 cap PO TIDAC [facility] Last Admin: 08/24/24 11:27 Dose: 1 cap Documented By: JANEL Aripiprazole (Aripiprazole 10 Mg Tablet) 10 mg PO BEDTIME [facility] Last Admin: 08/23/24 21:51 Dose: 10 mg Documented By: MAI Bupropion HCl (Bupropion Hcl Xl 300 Mg Tab.Er.24h) 300 mg PO DAILY [facility] Last Admin: 08/24/24 08:07 Dose: 300 mg Documented By: JANEL Calcium Carbonate (Calcium Carbonate 750 Mg Tab.Chew) 750 mg PO Q4H PRN PRN Reason: Heartburn Last Admin: 08/24/24 08:19 Dose: 750 mg Documented By: JANEL Enoxaparin Sodium (Enoxaparin Sodium 40 Mg/0.4 Ml Syringe) 40 mg SUBCUT Q24H [facility] Last Admin: 08/24/24 10:26 Dose: Not Given Documented By: JANEL Non-Admin Reason: Patient Refused Folic Acid (Folic Acid 1 Mg Tablet) 1 mg PO DAILY [facility] Last Admin: 08/24/24 08:07 Dose: 1 mg Documented By: JANEL Gabapentin (Gabapentin 600 Mg Tablet) 600 mg PO TID [facility] Last Admin: 08/24/24 08:07 Dose: 600 mg Documented By: JANEL Hydromorphone HCl (Hydromorphone Hcl 0.5 Mg/0.5 Ml Syringe) 0.5 mg IVPUSH Q4H PRN; Protocol PRN Reason: Pain, Severe (Pain Scale 7-10) Last Admin: 08/24/24 10:26 Dose: 0.5 mg Documented By: JANEL Lactated Ringer's (Lr) 1,000 mls @ 125 mls/hr IVCONT .Q8H [facility] Last Admin: 08/24/24 10:26 Dose: 125 mls/hr Documented By: JANEL Lamotrigine (Lamotrigine 25 Mg Tablet) 75 mg PO BEDTIME [facility] Last Admin: 08/23/24 21:49 Dose: 75 mg Documented By: MAI Lorazepam (Lorazepam 1 Mg Tablet) 1 mg PO TID PRN PRN Reason: Anxiety Last Admin: 08/24/24 08:07 Dose: 1 mg Documented By: JANEL Magnesium Hydroxide (Milk Of Magnesia 30 Ml Oral.Susp) 30 ml PO DAILY PRN PRN Reason: Constipation Melatonin (Melatonin 3 Mg Tablet) 6 mg PO BEDTIME PRN PRN Reason: Insomnia Multivitamins/Vitamin C (Multivitamin Tablet) 1 tab PO DAILY [facility] Last Admin: 08/24/24 08:07 Dose: 1 tab Documented By: JANEL Ondansetron HCl (Ondansetron Hcl 4 Mg/2 Ml Vial) 4 mg IVPUSH Q8H PRN PRN Reason: Nausea and Vomiting Pantoprazole Sodium (Pantoprazole Sodium 40 Mg/10 Ml Vial) 40 mg IVPUSH BID@0630,1630 [facility] Last Admin: 08/24/24 05:52 Dose: 40 mg Documented By: MAI Prazosin HCl (Prazosin Hcl 5 Mg Capsule) 5 mg PO BEDTIME [facility]; Protocol Last Admin: 08/23/24 20:18 Dose: 5 mg Documented By: MAI Sodium Chloride (0.9 % Sodium Chloride Flush 3 Ml Syringe) 3 ml IVFLUSH QSHIFT [facility] Last Admin: 08/24/24 08:07 Dose: 3 ml Documented By: JANEL Trazodone HCl (Trazodone Hcl 50 Mg Tablet) 150 mg PO BEDTIME [facility] Last Admin: 08/23/24 21:50 Dose: 150 mg Documented By: CHIV Labs 08/24/24 05:26 08/24/24 05:26 Labs: Laboratory Results - last 24 hr 08/24/24 05:26 MCV 93.7 D MCH 30.3 MCHC 32.4 RDW 13.7 Plt Count 229 D MPV 9.7 Absolute Nucleated RBC 0.000 Nucleated RBC % (auto) 0.0 Anion Gap 12 Estim Creat Clear Calc 104.0 Estimated GFR > 60 Random Glucose 99 Calcium 8.3 L D Microbiology Microbiology Results: Microbiology 08/23/24 08:48 Blood Culture - Preliminary Blood - Venous No growth after 24 hours. 08/23/24 08:48 Blood Culture - Preliminary Blood - Venous No growth after 24 hours. Assessment and Plan (1) Intractable nausea and vomiting: Status: Acute (2) Esophagitis: Status: Acute (3) Alcohol abuse: Status: Chronic Plan Pt is a 44-year-old female with a PMH significant for chronic pancreatitis,?GERD, alcohol use disorder, and anxiety who presents to the ED with?N/V/abdominal pain times 3 days. Pt admitted to the hospital under observation for treatment and further evaluation of intractable nausea, vomiting, and abdominal pain in the setting of acute on chronic pancreatitis. Intractable nausea, vomiting, abdominal pain improving CT showing esophagitis and chronic pancreatitis, otherwise no acute abnormalities maintenance fluids Pain management, antiemetics, Protonix IV Clear liquid diet, advance as tolerated Consider GI consult if symptoms worsen Acute lactic acidosis Secondary to hypovolemia from intractable N/V, not sepsis, improved Leukocytosis resolved No indication of active infection that would necessitate antibiotics at this time Alcohol use disorder Pt reports used to drink heavily Ed with hx of alcohol withdrawal Reports he has cut back drastically, currently drinking 1 large Twisted Tea and a couple of nips daily after work Monitor on CIWA Depression/Anxiety Continue omeprazole, bupropion, lamotrigine, prazosin, lorazepam Full Code DVT Prophylaxis: Lovenox Quality Stroke Does the patient have a stroke diagnosis?: No VTE Prior VTE?: No VTE Risk Level:: Medical - moderate - high VTE Device Contraindication: Treatment Not Indicated VTE Drug Contraindication: N/A - Med Ordered
[2024-08-24] MEDS: Sucralfate 1 GM TABLET PO ×3 (12:15→21:16)
[2024-08-24] MEDS: oxyCODONE HCl Immed Release 5 MG TABLET PO ×2 (12:30→21:15)
[2024-08-24] MEDS: ARIPiprazole 10 MG TABLET PO (21:15)
[2024-08-24] MEDS: lamoTRIgine 25 MG TABLET 75 MG PO (21:16)
[2024-08-24] MEDS: traZODone HCL 50 MG TABLET 150 MG PO (21:17)
[2024-08-24] MEDS: Prazosin HCL 5 MG CAPSULE PO (21:18)
[2024-08-25 02:37] VITALS: BP 103/70; PULSE 81; RESP 16; TEMP 36.3; O2SAT 95
[2024-08-25] MEDS: HYDROmorphone HCl 0.5 MG/0.5 ML SYRINGE IVPUSH ×4 (02:46→15:16)
[2024-08-25] MEDS: Lactated Ringers 1,000 ML 125 ML IVCONT ×2 (02:47→11:15)
[2024-08-25] MEDS: Pantoprazole Sodium 40 MG/10 ML VIAL IVPUSH (05:49)
[2024-08-25] MEDS: oxyCODONE HCl Immed Release 5 MG TABLET PO ×2 (05:56→13:06)
[2024-08-25 06:27] LABS: MANUAL DIFF FLAG NO
[2024-08-25 06:34] LABS: Basophils Percent Auto 0.7 % (0-2); Eosinophils Absolute Auto 0.2 X10*3/uL (0.0-0.4); Eosinophils Percent Auto 2.6 % (0-4); Hematocrit 34.9 % (37.0-47.0); Imm Gran Abs Auto 0.03 X10*3/uL (0.00-0.03); Imm Gran Pct Auto 0.5 % (0.0-0.4); Lymphocytes Absolute Auto 2.1 X10*3/uL (1.2-4.9); Lymphocytes Percent Auto 36.6 % (20-40); Mean Corpuscular HGB Conc 31.5 g/dl (31.0-35.0); Mean Corpuscular Volume 95.1 fL (80.0-98.0); Mean Platelet Volume 9.7 fL (9.4-12.3); Monocytes Absolute Auto 0.4 X10*3/uL (0.1-1.2); Monocytes Percent Auto 7.2 % (2-11); Neutrophils Percent Auto 52.4 % (45-73); Platelet Count 211 X10*3/uL (160-400); Red Blood Count 3.67 X10*6/uL (4.20-5.50); Red Cell Distribution Width 13.7 % (11.0-16.0); White Blood Count 5.7 X10*3/uL (4.8-10.8)
[2024-08-25 06:42] LABS: Anion Gap 12 (12-20); Blood Urea Nitrogen 3 mg/dL (9-16); Calcium 8.2 mg/dL (8.4-10.2); Carbon Dioxide 29 mmol/L (22-29); Chloride 105 mmol/L (96-108); Estimated Glomerular Filt Rate > 60; Glucose Random 109 mg/dL (60-115); Potassium 3.9 mmol/L (3.3-5.1); Sodium 142 mmol/L (135-145)
[2024-08-25 06:54] VITALS: BP 125/79; PULSE 97; RESP 18; TEMP 36.9; O2SAT 94
[2024-08-25] MEDS: Lipase/Prot/Amylase 24/76/120K 1 CAP CAPSULE.DR PO ×2 (07:10→11:15)
[2024-08-25] MEDS: Sucralfate 1 GM TABLET PO ×2 (07:10→11:15)
[2024-08-25] MEDS: Lipase/Prot/Amylase 12/38/60K CAPSULE.DR 1 CAP PO ×2 (07:10→11:15)
[2024-08-25] MEDS: buPROPion HCl XL 300 MG TAB.ER.24H PO (08:38)
[2024-08-25] MEDS: Multivitamin TABLET 1 TAB PO (08:38)
[2024-08-25] MEDS: Gabapentin 600 MG TABLET PO ×2 (08:38→15:14)
[2024-08-25] MEDS: Folic Acid 1 MG TABLET PO (08:38)
[2024-08-25] MEDS: LORazepam 1 MG TABLET PO (08:40)
--- NOTE | 2024-08-25 10:02 | P.DS_ITS ---
DS: Providers Provider Date of Service: 08/25/24 Date of admission: 08/23/24 09:29 Date of discharge: 08/25/24 Primary care physician: Anai Lane NP DS: Diagnosis Discharge Diagnosis (1) Intractable nausea and vomiting: Status: Acute (2) Esophagitis: Status: Acute (3) Alcohol abuse: Status: Chronic (4) Chronic pancreatitis: Status: Acute DS: Summary Hospital Course Hospital Course: Admission note HPI Pt is a 44-year-old female with a PMH significant for chronic pancreatitis,?GERD, alcohol use disorder, and anxiety who presents to the ED with?N/V/abdominal pain times 3 days. Pt reports symptoms began Monday night when she began experiencing nausea, vomiting, left-sided abdominal pain wrapping around to back, as well as substernal and throat pain. Has been unable to tolerate p.o. intake. Reports has been experiencing chronic pancreatitis for the past 15 years and current symptoms feel similar to previous episodes. Also reports has been drinking ?a little bit? daily after work: 1 large Twisted Tea and a couple of nips daily. Last drink yesterday evening at around 18:00. Denies headache, diaphoresis, auditory or visual hallucinations. No tactile disturbances. No tremors. Denies shortness or breath or difficulty breathing. No chest pain/pressure, palpitations. Subjective chills, but no measured fever. In the ED pt was initially tachycardic to 111, vitals otherwise stable and WNL. Labs were significant for leukocytosis 18.5, AST 89, alk-phos 135, lipase low at 7, and lactic acid 4.1. Ethyl alcohol levels undetectable. CT?of abdomen/pelvis showed prominent esophageal mural thickening, suggestive of esophagitis, chronic pancreatitis, and nonobstructive bilateral renal calculi <3 mm. Pt was treated in the ED with 2 L IVF, metoclopramide, Protonix, Maalox, and Dilaudid 1 mg IV x2. Pt admitted to the hospital under observation for treatment and further evaluation of intractable nausea, vomiting, and abdominal pain in the setting of acute on chronic pancreatitis. Hospital course The patient was admitted for evaluation of Intractable nausea, vomiting, abdominal pain as CT showing esophagitis and chronic pancreatitis with low Lipase. Treated symptomatically with IV maintenance fluids, Pain management, antiemetics and Protonix IV along with adding Carafate as she has likely alcoholic esophagitis with good improvement as she was advanced to regular diet with good tolerance. To be discharged on Pantoprazole, Carafate, Oxycodone and Zofran PRN with advise for low fat diet and avoidance of alcohol consumption. Found to have Acute lactic acidosis and leukocytosis at presentation secondary to hypovolemia from intractable N/V. resolved with fluids. She has Alcohol use disorder. she reported used to drink heavily Ed with hx of alcohol withdrawal. she reported cuting back drastically, currently drinking 1 large Twisted Tea and a couple of nips daily after work. Monitored on CIWA and did not develope withdrawal. advised total abstinece from alcohol. Discharge plan Low fat diet Avoid alcohol intake stay well hydrated advance diet as tolerated Follow with dr Johnson from [facility] [place] [facility] to arrange for Endoscopy if no improvement. Time Attestation Discharge Coordination Time (in mins): 32 Quality: Safe Use of Opioids Does Pt have an Active Cancer Diagnosis on the Problem List?: No Quality: Stroke Does the patient have a stroke diagnosis?: No Physical Exam Vital Signs: Vital Signs: Last Vital Signs Temp 98.5 F 08/25/24 06:54 Pulse 97 08/25/24 06:54 Resp 18 08/25/24 06:54 BP 125/79 08/25/24 06:54 Pulse Ox 94 08/25/24 06:54 O2 Del Method Room Air 08/25/24 06:54 BMI result Body Mass Index 31.4 Const: Other: Constitutional : interactive, not in distress Cardiovascular : no JVP, no lower extremity edema Respiratory : bilateral chest movement, not in resp distress Gastrointestinal: soft, lax, no tenderness Skin : Warm, Dry Neurological : Alert & oriented , No focal deficit DS: Data Data Completed and Pending Completed studies during hospitalization [Text1]: Procedures Detoxification Services for Substance Abuse Treatment (09/07/23) Labs on day of discharge: Laboratory Results - last 24 hr 08/25/24 05:53 WBC 5.7 RBC 3.67 L Hgb 11.0 L Hct 34.9 L MCV 95.1 MCH 30.0 MCHC 31.5 RDW 13.7 Plt Count 211 MPV 9.7 Immature Gran % (Auto) 0.5 H Neut % (Auto) 52.4 Lymph % (Auto) 36.6 [place] % (Auto) 7.2 Eos % (Auto) 2.6 Baso % (Auto) 0.7 Lymph # (Auto) 2.1 [place] # (Auto) 0.4 Eos # (Auto) 0.2 Baso # (Auto) 0.0 Abs Immat Gran (auto) 0.03 Absolute Neuts (auto) 3.0 Absolute Nucleated RBC 0.000 Nucleated RBC % (auto) 0.0 Sodium 142 Potassium 3.9 Chloride 105 Carbon Dioxide 29 Anion Gap 12 BUN 3 L Creatinine 0.69 Estim Creat Clear Calc 110.0 Estimated GFR > 60 Random Glucose 109 Calcium 8.2 L Preliminary micro results at discharge 08/23/24 08:48 Blood Culture - Preliminary Blood - Venous No growth after 24 hours. 08/23/24 08:48 Blood Culture - Preliminary Blood - Venous No growth after [address] scan - abdomen: Radiologist's impression: IMPRESSION: 1. Prominent esophageal mural thickening, suggesting esophagitis. 2. Nonobstructive bilateral subcentimeter renal calculi measuring no more than 3 mm. 3. Chronic pancreatitis. Discharge Plan Discharge Anticipated Discharge Date/Time: 08/25/24 09:44 Patient Disposition: Home, Self-Care Discharge Diagnosis: Abdominal pain Referrals: Anai Lane [employer] [Primary Care Provider] - 1 Week Discharge Medications: New sucralfate 1 gram Tablet 1 g PO BID Qty: 60 0RF oxycodone 5 mg Tablet 5 mg PO Q6H PRN (Reason: Breakthrough Pain) Qty: 20 0RF Rx Instructions: Partial Fill upon patient request. ondansetron 4 mg tablet,disintegrating 4 mg PO Q8H PRN (Reason: nausea and vomiting) Qty: 14 0RF Continued prazosin 5 mg Capsule 5 mg PO BEDTIME 30 Days Qty: 30 0RF doxepin 50 mg capsule 1 cap PO BEDTIME gabapentin 600 mg tablet 600 mg PO TID aripiprazole 10 mg tablet 1 tab PO BEDTIME lorazepam 1 mg tablet 1 mg PO TID PRN (Reason: Anxiety) pantoprazole 40 mg Tablet,Delayed Release (Dr/Ec) 40 mg PO DAILY@0630 multivitamin Tablet 1 tab PO DAILY melatonin 3 mg Tablet 3 mg PO BEDTIME PRN (Reason: Sleep) trazodone 150 mg tablet 150 mg PO BEDTIME Creon 36,000-114,000- 180,000 unit capsule,delayed release(DR/EC) 1 cap PO TID lamotrigine 25 mg tablet 75 mg PO BEDTIME folic acid 1 mg tablet 1 mg PO DAILY bupropion HCl 300 mg tablet extended release 24 hr 300 mg PO DAILY Discharge Orders: Discharge Order (Routine); Ordered 08/25/24 Ordered By: Kadie Sher Diet: Low fat, low cholesterol Activity on Discharge: As tolerated Stand Alone Forms: Patient Portal Discharge page Print Language: Choose Not To Answer Care Plan Goals: Low fat diet Avoid alcohol intake stay well hydrated advance diet as tolerated Follow with dr Johnson from [facility] [place] [facility] to arrange for Endoscopy if no improvement. Health Concerns: Chronic pancreatitis Plan of Treatment: Avoid alcohol, symptomatic management Assessment: as above
--- NOTE | 2024-08-25 10:21 | MHC.CM.PN ---
Per MD patient medically cleared for dc home self care. Private transport.
[2024-08-25 12:00] VITALS: BP 118/66; PULSE 89; RESP 16; TEMP 36.5; O2SAT 93
[2024-08-25] MEDS: 0.9 % Sodium Chloride Flush 3 ML SYRINGE IVFLUSH (15:15)
[2024-08-25 15:22] VITALS: BP 119/76; PULSE 102; RESP 16; TEMP 36.2; O2SAT 94
== END 2024-08-25 15:29 | disposition home or self-care (01) ==
LOC: HO.ED 09:07 → HO.EDOVER 10:18 → HO.S3 16:02
PROVIDERS: Physician Assistant; Admitting Provider Student in an Organized Health Care Education/Training Program; Emergency Provider Emergency Medicine Emergency Medical Services; PCP Nurse Practitioner Adult Health; Visit Provider Student in an Organized Health Care Education/Training Program
DX: R10.10 Upper abdominal pain, unspecified (principal); R11.2 Nausea with vomiting, unspecified; K20.90 Esophagitis, unspecified without bleeding; K86.1 Other chronic pancreatitis; E87.20 Acidosis, unspecified; D72.829 Elevated white blood cell count, unspecified; F41.8 Other specified anxiety disorders; F10.90 Alcohol use, unspecified, uncomplicated; K21.9 Gastro-esophageal reflux disease without esophagitis; Z79.899 Other long term (current) drug therapy
CPT/HCPCS: 36415; 74177; 80048; 80053; 80307; 83605; 83690; 83735; 85025; 85027; 87040; 96361; 96374; 96375; 96376; 99221; 99285; J1171; J1308; J2470; J2765; J7120; Q9967

== ENCOUNTER → 2024-08-23 04:30 | Outpatient (BNV) | payer OTHER, SELFPAY | PROVIDERS: PCP Nurse Practitioner Adult Health; Visit Provider Radiology Diagnostic Radiology | DX: N20.0 Calculus of kidney (principal); K86.1 Other chronic pancreatitis; K22.89 Other specified disease of esophagus | CPT/HCPCS: 74177 ==

== ENCOUNTER → 2024-08-23 09:29 | Outpatient (BNV) | payer OTHER, SELFPAY | PROVIDERS: Admitting Provider Student in an Organized Health Care Education/Training Program; Emergency Provider Emergency Medicine Emergency Medical Services; PCP Nurse Practitioner Adult Health; Visit Provider Student in an Organized Health Care Education/Training Program | DX: R11.2 Nausea with vomiting, unspecified (principal); K20.90 Esophagitis, unspecified without bleeding; F10.10 Alcohol abuse, uncomplicated; K86.1 Other chronic pancreatitis | CPT/HCPCS: 99222; 99233; 99239 ==

== ENCOUNTER 2024-09-08 14:58 | Inpatient (IN) | payer OTHER, SELFPAY ==
[2024-09-08] VITALS (7 sets, daily range): BP systolic 132–142; BP diastolic 91–98; PULSE 111–136; RESP 15–20; TEMP 36.8–36.9; O2SAT 93–97; BMI 28.5
--- NOTE | ~2024-09-08 | CT_ITS ---
CLINICAL HISTORY: upper ABD pain, nausea, chronic pancreatitis CT abdomen and pelvis with contrast Comparison: CT/SR - CT ABDOMEN PELVIS W IV CON - 08/23/24 04:28 EDT Findings: No consolidation or effusion. Kidneys, spleen, adrenal glands and gallbladder are unremarkable. The liver is enlarged and there is diffuse fatty infiltration. Pancreas contains multiple parenchymal calcifications suggesting chronic pancreatitis. No bowel obstruction, pneumoperitoneum, or pneumatosis. Small hiatal hernia. Pelvic contents unremarkable. Normal appendix. Uterus and adnexa are normal. No ascites. Fat containing right inguinal hernia. No acute fracture. IMPRESSION: No acute findings. Pancreatic calcifications suggesting chronic pancreatitis, unchanged. Hepatomegaly with diffuse fatty infiltration. This document has been electronically signed by: Kevin Esparza MD on 09/09/2024 00:23:47
--- NOTE | 2024-09-08 15:06 | ED_ITS ---
HPI - Psych General Chief Complaint: Psychiatric Symptoms Stated Complaint: SI W/PLAN TO OD/LORAZAPAM,SEC 12 BY [facility] PER EMS Time Seen by Provider: 09/08/24 15:05 Source: patient, EMS, RN notes reviewed and old records reviewed Mode of arrival: EMS Limitations: no limitations History of Present Illness ED Provider: Anuel Babcock PA-C HPI Narrative: 44 yo female with history of ETOH use disorder, chronic pancreatitis, GERD, anxiety who presents to the ER for evaluation of suicidal ideation with plan to overdose on lorazepam. She states 2 days ago her pancreatitis started to become triggered and she started having recurrent abdominal pain with nausea and vomiting. She reports drinking 1 twisted tea yesterday and it made the pain worse. she states yesterday she started developing suicidial thoughts related to her recurrent abdominal pain. she has been taking her lorazepam for severe anxiety but vomiting it up. she called [facility] crisis line today and then 911. she was scared she was going to actually overdose. she feels like she needs inpatient psychiatric care which she has had before which helped her. she endorses doing a line of cocaine and trying to drink twisted tea today but couldnt tolerate it. 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 she reports he does not feel like working and has been using cocaine) Associated psychiatric symptoms: depression, suicidal ideation and racing thoughts Associated symptoms: nausea and vomiting Treatments prior to arrival: placed on mental health hold If self harm: admits thoughts of self harm and has plan Related Data Home Medications ?Medication ?Instructions ?Recorded ?Confirmed aripiprazole 10 mg tablet 10 mg PO BEDTIME 05/21/21 09/09/24 doxepin 50 mg capsule 50 mg PO BEDTIME 05/21/21 09/09/24 gabapentin 600 mg tablet 600 mg PO TID 05/21/21 09/09/24 lorazepam 1 mg tablet 1 mg PO TID PRN Anxiety 05/21/21 09/09/24 pantoprazole 40 mg tablet,delayed 40 mg PO DAILY@0630 05/21/21 09/09/24 release bupropion HCl 300 mg 24 hr tablet, 300 mg PO DAILY 09/07/23 09/09/24 extended release folic acid 1 mg tablet 1 mg PO DAILY 09/07/23 09/09/24 lamotrigine 25 mg tablet 75 mg PO BEDTIME 09/07/23 09/09/24 tcjomp-iyhfhqko-urzrhcn 1 cap PO TID 08/23/24 09/09/24 36,000-114,000-180,000 unit capsule,delay rel (Creon) multivitamin 1 tab PO DAILY 08/23/24 09/09/24 trazodone 150 mg tablet 150 mg PO BEDTIME 08/23/24 09/09/24 diphenhydramine HCl 50 mg/30 mL 50 mg PO BEDTIME PRN Sleep 09/09/24 09/09/24 oral liquid (ZzzQuil) Previous Rx's ?Medication ?Instructions ?Recorded prazosin 5 mg capsule 5 mg PO BEDTIME 30 days #30 caps 02/18/20 ondansetron 4 mg disintegrating 4 mg PO Q8H PRN nausea and 09/11/24 tablet vomiting #15 tabs oxycodone 5 mg tablet 5 mg PO Q8H PRN pain #15 tabs 09/11/24 Allergies Allergy/AdvReac Type Severity Reaction Status Date / Time acetaminophen [From Tylenol] AdvReac Stomach Verified 09/08/24 15:34 Upset ibuprofen AdvReac Stomach Verified 09/08/24 15:34 Upset morphine AdvReac Gastrointestinal Verified 09/08/24 15:34 Upset bees Allergy Severe Anaphylaxis Uncoded 08/23/24 02:54 Review of Systems 2 Review of Systems: Yes all other systems are reviewed and are negative [facility] Past Medical History Medical History Alcohol abuse Obesity (BMI 30.0-34.9) Pancreatitis Back pain Alcohol use disorder, severe, dependence Gastritis Gastritis Endometriosis Constipation Anxiety Depression Bipolar disorder Suicidal behavior PTSD (post-traumatic stress disorder) Surgical History History of ankle surgery Social History Social History Household Members: Spouse Housing: House Do you presently have visiting nurse or other home services: No Alcohol intake: current Alcohol intake frequency: a few times a week Alcohol type: beer and hard liquor Comment: pt reports no effects as of yet Patient Tobacco Use Status: Current someday Tobacco user Tobacco use type: Cigarette e-Cigarette/Vaping Use: Currently Using Second Hand Smoke Exposure: No Substance Use Type: Crack/Cocaine Advance Directives Date on File: 09/07/23 service: No Sexual orientation: Straight/Heterosexual Physical Exam 2 Vital Signs: Vital Signs: Last Vital Signs Temp 97.7 F 09/11/24 09:27 Pulse 110 H 09/11/24 09:27 Resp 16 09/11/24 09:27 BP 99/60 09/11/24 09:27 Pulse Ox 93 09/11/24 09:27 O2 Del Method Room Air 09/11/24 09:27 BMI result Body Mass Index 28.5 Appearance: Alert. Oriented X3. tearful, diaphoretic, anxious Head: normocephalic, atraumatic. Eyes: Pupils dilated 4mm equal, round and reactive to light. ENT: Pharynx normal. No tonsillar swelling or exudate. Neck: Normal inspection. Neck supple. CVS: Normal heart rate and rhythm. Pulses normal. Respiratory: No respiratory distress. Breath sounds normal. Abdomen: Soft with epigastric and LUQ tenderness, no rebound or guarding, +BS x4 Skin: Skin warm and dry. Normal skin color. Normal skin turgor. No rashes. Extremities: No lower extremity edema. No joint swelling. Neuro/psych: Oriented X 3. No motor deficit. No sensory deficit. CN II-XII intact. Normal speech and cognition. tearful, depressed, suicidal. Course Reevaluation(s) Reevaluation #1: 22:00 09/09/2024 Thelma Mc NP intractable pain despite multiple doses of opioid medications, not able to tolerate even ice chips without severe pain. Reviewed case with hospitalist, Dr. Junior, advises repeat CT abdomen pelvis to assure no acute pathology will admit to medicine service. IMPRESSION: CT AP w/ IV contrast No acute findings. Pancreatic calcifications suggesting chronic pancreatitis, unchanged. Hepatomegaly with diffuse fatty infiltration. Medications Administered Discontinued Medications Generic Name Dose Route Start Last Admin Trade Name Freq PRN Reason Stop Dose Admin Lipase/Protease/Amylase 3 cap 09/09/24 15:00 09/11/24 08:19 Lipase/Prot/Amylase 12/38/60k Capsule.Dr PO 3 cap TID ELIZABETH Administration Benzonatate 100 mg 09/08/24 22:55 09/09/24 21:32 Benzonatate 100 Mg Capsule PO 100 mg TID PRN Administration Cough Bupropion HCl 300 mg 09/09/24 13:15 09/11/24 08:20 Bupropion Hcl Xl 300 Mg Tab.Er.24h PO 300 mg DAILY ELIZABETH Administration Calcium Carbonate 750 mg 09/08/24 22:33 09/10/24 22:18 Calcium Carbonate 750 Mg Tab.Chew PO 750 mg Q4H PRN Administration Heartburn Diazepam 2.5 mg 09/09/24 01:37 09/09/24 02:07 Diazepam 10 Mg/2 Ml Cartridge IVPUSH 09/09/24 01:38 2.5 mg ONCE ONE Administration Doxepin HCl 50 mg 09/09/24 21:00 09/10/24 22:08 Doxepin Hcl 25 Mg Capsule PO 50 mg BEDTIME ELIZABETH Administration Enoxaparin Sodium 40 mg 09/08/24 23:00 09/10/24 22:45 Enoxaparin Sodium 40 Mg/0.4 Ml Syringe SUBCUT Not Given Q24H [facility] Folic Acid 1 mg 09/10/24 09:00 09/11/24 08:20 Folic Acid 1 Mg Tablet PO 1 mg DAILY ELIZABETH Administration Gabapentin 600 mg 09/09/24 15:00 09/11/24 08:20 Gabapentin 600 Mg Tablet PO 600 mg TID ELIZABETH Administration Hydromorphone HCl 0.5 mg 09/08/24 17:14 09/08/24 17:26 Hydromorphone Hcl 0.5 Mg/0.5 Ml Syringe IVPUSH 09/08/24 17:15 0.5 mg ONCE ONE Administration Protocol Hydromorphone HCl 0.5 mg 09/08/24 19:15 09/08/24 19:22 Hydromorphone Hcl 0.5 Mg/0.5 Ml Syringe IVPUSH 09/08/24 19:16 0.5 mg ONCE ONE Administration Protocol Hydromorphone HCl 0.5 mg 09/08/24 21:57 09/08/24 22:25 Hydromorphone Hcl 0.5 Mg/0.5 Ml Syringe IVPUSH 09/08/24 21:58 0.5 mg ONCE ONE Administration Protocol Hydromorphone HCl 0.5 mg 09/08/24 22:33 09/11/24 08:17 Hydromorphone Hcl 1 Mg/Ml Syringe IVPUSH 0.5 mg Q4H PRN Administration Pain, Severe (Pain Scale 7-10) Protocol Hydromorphone HCl 0.5 mg 09/09/24 04:01 09/09/24 04:13 Hydromorphone Hcl 0.5 Mg/0.5 Ml Syringe IVPUSH 09/09/24 04:02 0.5 mg ONCE ONE Administration Protocol Lactated Ringer's 1,000 mls @ 999 mls/hr 09/08/24 15:30 09/08/24 17:06 Lr IV 09/08/24 16:30 Infused .Q1H1M ELIZABETH Infusion Sodium Chloride 1,000 mls @ 999 mls/hr 09/08/24 22:15 09/08/24 23:35 Ns IV 09/08/24 23:15 Infused .Q1H1M ELIZABETH Infusion Lactated Ringer's 1,000 mls @ 100 mls/hr 09/08/24 22:45 09/10/24 10:16 Lr IVCONT Infused .Q10H ELIZABETH Infusion Magnesium Sulfate 2 gm in 50 mls @ 25 mls/hr 09/10/24 07:12 09/10/24 10:20 Magnesium Sulfate/H2o IV 09/10/24 09:11 Infused ONCE ONE Infusion Iohexol 85 ml 09/08/24 23:15 09/08/24 23:15 Iohexol 350 Mg/Ml 100 Ml Infus..Btl IV 09/08/24 23:16 85 ml ONCE ONE Administration Ketorolac Tromethamine 15 mg 09/08/24 15:53 09/08/24 15:57 Ketorolac Tromethamine 15 Mg/Ml Vial IVPUSH 09/08/24 15:54 15 mg ONCE ONE Administration Lamotrigine 75 mg 09/09/24 21:00 09/10/24 22:09 Lamotrigine 25 Mg Tablet PO 75 mg BEDTIME ELIZABETH Administration Levalbuterol HCl 1.25 mg 09/08/24 22:55 09/09/24 20:52 Levalbuterol Hcl 1.25 Mg/3 Ml Vial.Neb INHALE 1.25 mg Q4H PRN Administration Shortness of Breath/Wheezing Lorazepam 1 mg 09/09/24 13:13 09/10/24 22:10 Lorazepam 1 Mg Tablet PO 1 mg TID PRN Administration Anxiety Multivitamins/Vitamin C 1 tab 09/10/24 09:00 09/11/24 08:20 Multivitamin Tablet PO 1 tab DAILY ELIZABETH Administration Oxycodone HCl 5 mg 09/08/24 22:55 09/11/24 06:01 Oxycodone Hcl Immed Release 5 Mg Tablet PO 5 mg Q6H PRN Administration Pain, Moderate(Pain Scale 4-6) Pantoprazole Sodium 40 mg 09/10/24 06:30 09/11/24 06:01 Pantoprazole Sodium 20 Mg Tablet.Dr PO 40 mg DAILY@0630 ELIZABETH Administration Potassium Chloride 40 meq 09/08/24 16:23 09/08/24 17:05 Potassium Chloride Er 20 Meq Tab.Er.Prt PO 09/08/24 16:24 40 meq ONCE ONE Administration Prazosin HCl 5 mg 09/09/24 21:00 09/10/24 22:09 Prazosin Hcl 5 Mg Capsule PO 5 mg BEDTIME ELIZABETH Administration Protocol Sodium Chloride 3 ml 09/09/24 00:00 09/11/24 08:17 0.9 % Sodium Chloride Flush 3 Ml Syringe IVFLUSH 3 ml QSHIFT ELIZABETH Administration Trazodone HCl 150 mg 09/09/24 21:00 09/10/24 22:09 Trazodone Hcl 50 Mg Tablet PO 150 mg BEDTIME ELIZABETH Administration Medical Decision Making Medical Decision Making MDM Narrative: upon review of [employer] patient picked up 90 tabets of lorazepam 1mg on 08/31. there are 62 pills present in her bottle with some crushed and pieces in the bottle tachycardic on arrival, endorses cocaine use c/o pain - IVF and toradol ordered 17:26 - c/o ongoing abdominal pain after toradol. CT from 08/23 reviewed - no evidence of pancreatic pseudocyst formation. hold off on repeat imaging for now. lipase today is 7. dilaudid 0.5mg IV x1 ordered for c/o abd pain. will reassess pain. may require medical admission if severe abdominal pain persists. she will need CARE team evaluation once medically cleared Differential Diagnosis Differential Diagnoses: The differential diagnosis associated with the presentation includes acute on chronic pancreatitis, substance induced mood disorder, acute psychosis, schizophrenia, schizoaffective disorder, PTSD, bipolar disorder, major depression with psychotic features Admission/Observation Consideration of admission/observation: Escalation of care including admission/observation considered Lab Data MDM Lab Attestation statement: I reviewed the patient's lab results. mild leukocytosis likely reactive due to vomiting, low lipase 09/11/24 05:55 09/11/24 05:55 Labs: Lab Results 09/08/24 09/08/24 Range/Units 15:31 16:46 WBC 12.1 H (4.8-10.8) X10*3/uL RBC 4.43 D (4.20-5.50) X10*6/uL Hgb 13.5 D (12.0-16.0) g/dl Hct 40.4 (37.0-47.0) % MCV 91.2 (80.0-98.0) fL MCH 30.5 (27.0-33.0) pg MCHC 33.4 (31.0-35.0) g/dl RDW 13.6 (11.0-16.0) % Plt Count 352 D (160-400) X10*3/uL MPV 9.2 L (9.4-12.3) fL Immature Gran % (Auto) 0.7 H (0.0-0.4) % Neut % (Auto) 54.2 (45-73) % Lymph % (Auto) 32.4 (20-40) % [place] % (Auto) 9.6 (2-11) % Eos % (Auto) 2.5 (0-4) % Baso % (Auto) 0.6 (0-2) % Lymph # (Auto) 3.9 (1.2-4.9) X10*3/uL [place] # (Auto) 1.2 (0.1-1.2) X10*3/uL Eos # (Auto) 0.3 (0.0-0.4) X10*3/uL Baso # (Auto) 0.1 (0.0-0.2) X10*3/uL Abs Immat Gran (auto) 0.08 H (0.00-0.03) X10*3/uL Absolute Neuts (auto) 6.6 (2.0-8.3) x10*3/uL Absolute Nucleated RBC 0.000 (0.0-0.012) X10*3/uL Nucleated RBC % (auto) 0.0 (0.0-0.2) /100WBC Sodium 138 (135-145) mmol/L Potassium 3.1 L D (3.3-5.1) mmol/L Chloride 99 (96-108) mmol/L Carbon Dioxide 23 (22-29) mmol/L Anion Gap 19 (12-20) BUN 3 L (9-16) mg/dL Creatinine 0.93 (0.5-1.4) mg/dL Estim Creat Clear Calc 77.9 Estimated GFR > 60 Random Glucose 124 H (60-115) mg/dL Calcium 9.2 D (8.4-10.2) mg/dL Magnesium 1.9 (1.6-2.6) mg/dL Total Bilirubin 0.7 (0.0-1.0) mg/dL Direct Bilirubin 0.4 (0.0-0.5) mg/dL AST 80 H (5-31) U/L ALT 39 H (0-31) U/L Alkaline Phosphatase 135 H (39-117) U/L Troponin I High Sens < 2.7 (<3.5-17.0) ng/L Total Protein 6.7 (6.5-8.0) g/dL Albumin 3.8 (3.5-5.0) g/dL Lipase 8 (8-78) U/L Beta HCG, Quant 6 mIU/mL Urine Color Yellow Urine Appearance Turbid Urine pH 6.5 (5.0-9.0) Ur Specific [place] 1.010 (1.005-1.025) Urine Protein Negative (Neg-Trace) mg/dL Urine Glucose (UA) Negative (Negative) mg/dL Urine Ketones Trace (Negative) mg/dL Urine Blood Negative (Negative) Urine Nitrite Negative (Negative) Ur Leukocyte Esterase Trace H (Negative) Urine RBC 0-2 (0-2) /HPF Urine WBC 0-5 (0-5) /HPF Ur Squamous Epith Cells 6-10 (0-2) /HPF Urine Bacteria 4+ (None Seen) Hyaline Casts 0-2 (0-2) /LPF Salicylates < 5.0 L (15-30) mg/dL Urine Opiates Screen Not Detected (Not Detect) Ur Buprenorphine Scrn Not Detected (Not Detect) ng/mL Ur Oxycodone Screen Not Detected (Not Detect) ng/mL Urine Methadone Screen Not Detected (Not Detect) ng/mL Urine Fentanyl Screen Not Detected (Not Detect) Acetaminophen < 3 (<30) mcg/mL Ur Barbiturates Screen Not Detected (Not Detect) Ur Phencyclidine Scrn Not Detected (Not Detect) Ur Amphetamines Screen Not Detected (Not Detect) U Benzodiazepines Scrn Not Detected (Not Detect) Urine Cocaine Screen POSITIVE H (Not Detect) U Marijuana (THC) Screen Not Detected (Not Detect) Ethyl Alcohol 127 mg/dL Independent Interpretation I performed an independent interpretation of an: EKG Interpretation: sinus tachycardia, hr 126, t-wave inversion in lead V2-V5, no ST segment elevations or depressions Independent Historian Clinical information obtained from an independent historian. History obtained from or confirmed by: EMS External Record Review External record reviewed: Inpatient record, Outpatient record, Prior outpatient labs and Prior outpatient radiology Tests considered The following testing was considered but not selected: considered CT scan of the abd/pelvis however low suspicion for pancreatic pseudocyst or necrotizing pancreatitis Prescription Management I considered prescription management with: Pain Medication Chronic Conditions Patient?s care impacted by: Other (pancreatitis, ETOH use disorder, anxiety ) Social Determinants Patient?s care significantly limited by Social Determinants of Health including: Low income, Problems related to primary support group and Other Social Determinant of Health Discharge Plan Discharge Clinical Impression: Suicidal ideation, Cocaine use, Chronic pancreatitis Patient Disposition: Admitted As Inpatient Interventions: [place]-Suicide Risk Severity Scale Last Done: 09/11/24 08:00 Admission Worksheet (ED) Last Done: 09/09/24 07:52 Discharge Date/Time: 09/09/24 08:36
--- NOTE | 2024-09-08 15:10 | ECG_ITS ---
Test Reason : TACHY Blood Pressure : */* mmHG Vent. Rate : 126 BPM Atrial Rate : 126 BPM P-R Int : 138 ms QRS Dur : 78 ms QT Int : 310 ms P-R-T Axes : 49 67 51 degrees QTcB Int : [address] & T wave abnormality, consider anterior ischemia Abnormal ECG When compared with ECG of 20-May-2021 20:29, Vent. rate has increased by 43 bpm Nonspecific T wave abnormality, worse in Inferior leads T wave inversion more evident in Anterior leads Referred By: Milla Babcock Electronically Signed By: JUAN TABARES
[2024-09-08 15:37] LABS: MANUAL DIFF FLAG NO
--- OUTSIDE RECORDS SUMMARY | 2024-09-08 15:42 | XMS_ITS | Data Portability ---
Author Organization [facility], [facility] Address [address] [place] [address] Care Team Providers Care Skiff Operator Name Role Phone DILLON MCKEON Primary Care Provider [phone] Assessment Encounter Date Assessment Date Assessment LastModified [...] truck turned her right foot awkwardly. Using [facility], placed in a CAM boot. She [...] resistance. X-rays ordered, obtained and reviewed at [facility] he views of the foot, ordered and [...] obtained and reviewed by me today at [facility], demonstrating interval healing of her fracture with [...] Referral None recorded. Procedures None recorded. Surgeries orthopaed ic surgery (SURG) 2024 025 [email or web address] [facility] [place], [address], [place], [address], 15:52:23 Imaging XR, foot, 3 or more view - RM 108-- RECHECK 3V FOOT WB 2024 025 [facility], [address], [place], [address], 5 19:44:38 XR, foot, 3 or more view - room 110 3V L foot 2024 025 stella [facility], [address], [place], [address], 5 15:37:27 Medication Orders tramadol 50 mg tablet 2024 025 [id number], [address] [place], [place], [id number], 5 10:55:43 Patient TargetsNo targets recorded. Patient InstructionsNo instructions recorded. Reason for Referral None Reported. Results Created Date Observation Date Name Description Value Unit Range Abnormal Flag Note LastModifiedBy Organization Detail LastModifiedTime 07/05/1907/05/2024 XR, foot, 3 or more view [email or web address] ?Encry pted=s hAaTro YD8dLq bEUv6g %2BXZw aYqtaq 0bqfl% 2Fg9IQ a4ajBk vP9nXo QUaueC m3YtLR FvZlgJ JJ8mAn HZtai3 7v7490 AC0Kqb XiMUqW vKiQtr MwF INTERFACE [facility] [address], [place], [address], 07/05/2024 14:19:22 07/05/19 25 07/05/2024 XR, foot, 3 or more view [email or web address] ?Encry pted=s hAaTro YD8dLq bEUv6g %2BXZw aYqtaq 0bqfl% 2Fg9IQ a4ajBk vP9nXo QUaueC m3YtLR FvZlgJ JJ8mAn HZtai3 8q0230 AC0Kqb XiMUqW vKiQtr MwF INTERFACE [facility] [address], [place], [address], 07/05/2024 14:19:24 Result Notes None recorded. Problems Name Problem SNOMED Code Status Onset Date Resolution Date Notes Provider Name and Address Organization Details Recorded Time No complaints 622663356 Active Status : 'A'; Not Available [facility] 4 09:21:44 Problem Notes None recorded. Procedures Surgical History None recorded. Imaging Results Imaging Date Name Status LastModified by Organiz ation Details LastModified Time 07/05/2024 XR, foot, 3 or more view completed INTERFACE [facility] [address], [place], [address], 07/05/2024 14:19:22 07/05/2024 XR, foot, 3 or more view completed INTERFACE [facility] [address], [place], [address], 07/05/2024 14:19:24 Procedure Notes None recorded. Medical Equipment None Reported. Allergies Allergen ID Allergen Name Allergen Category Reaction Reaction Severity Criticality Documentation Date Start Date Code Code System Note Provider Name and Address Organization Details Recorded Time 15577 Motrin medicatio n Not available Not available Not available 07/10/20232022 8 RxNorm Not Available [facility] 4 12:08:36 14010 Tylenol medicatio n Not available Not available Not available 07/10/20232022 3 RxNorm Not Available [facility] 4 12:08:37 Medications Name Sig Start Date Stop [...] Not Available Not Available No t Available sucralfate 1 gram tablet TAKE 1 TABLET BY MOUTH TWICE [...] completed Not Available Not Available Not Available ondansetron 4 mg disintegrat ing tablet DISSOLVE 1 TABLET ON THE TONGUE EVERY 8 HOURS NEEDED FOR NAUSEA OR VOMITING active Not Available Not Available No t [...] BY MOUTH EVERY 6 HOURS NEEDED FOR BREAKTHRO UGH PAIN active Not Available Not Available No t Available Daily-Farhana tablet TAKE 1 TABLET BY [...] ayed release TAKE 1 CAPSULE BY MOUTH THREE TIMES DAILY active Not Available Not Available No t Available Vitals Date Recorded Body height Body mass index (BMI) Body weight Heart rate Body temperature Respiratory rate Systolic blood pressure Diastolic blood pressure Provider Name and Address Organization Details Last Updated DateTime 165.1 cm 31.6 kg/m2 97583.5 5 g 86 /min 98.5 [degF] 20 /min 125 mm[Hg] 79 mm[Hg] SAMY FRANKLIN [facility] 10:39:10 Date Recorded Body height Body mass index (BMI) Body weight Provider Name and Address Organization Details Last Updated DateTime 05/31/2024 165.1 cm 31.6 kg/m2 25575.55 g QUE CABALLERO [facility] 05/31/2024 14:37:55 Date Recorded Body height Body mass index (BMI) Body weight Provider Name and Address Organization Details Last Updated DateTime 07/05/2024 165.1 cm 31.6 kg/m2 88153.55 g DILLON LINARESRizwanaMONIKA Gurmeet [facility] 07/05/2024 14:14:08 Social History None recorded. Functional Status None recorded. Mental Status None recorded. Family History Nothing Reported. Medical History Condition Response Anxiety/Depression Y Bleeding Disorder Y Gynecological HistoryNo gynecological history recorded. Obstetrics History GPAL:G 0 P 0 0 0 0 Past Encounters Encounter ID Performer Location Encounter Start Date Encounter Closed Date Diagnosis/Indication Diagnosis SNOMED-CT Code Diagnosis ICD10 Code Diagnosis Note [id number] MARK ANTHONY Roe [address] [facility] [place] [address] 05/14/2024 09:46:22 05/23/2024 16:07:15 Pain in left foot 3015761792 84427 M79.672 Closed fra cture of fifth metatarsal bone 89602727 S92.352A Closed fra cture of base of fifth metatarsal bone 957226301 S92.351A [id number] MARK ANTHONY Carey [address] [place] [address] 05/31/2024 14:09:16 06/11/2024 14:19:37 Closed fracture of fifth metatarsal bone 00787518 S92.352A [id number] MD YOLANDA Schreiber [address] [place] [address] 07/05/2024 13:52:20 07/21/2024 19:44:37 Pain in left foot 0392982123 31788 M79.672 Postoperative visit 1830 52687 Z48.89 Health Concerns Section Related Observation LastModified by Organization Detai ls LastModified Time None Recorded Concern Status LastModified by Organization Details LastModified Time None Recorded Advance Directives Directive None Recorded Payers Encounter Date Sequence Insurance Name Policy Number Policy Ramirez Covered Member ID Ramirez Member ID Guarantor Name 05/14/2024 1 [facility] (MEDICAID HMO) [id number] Rufina J J Olive [id number] Rufina J Olive 05/31/2024 1 [facility] (MEDICAID HMO) [id number] Rufina J J Olive [id number] Rufina J Olive 07/05/2024 1 [facility] (MEDICAID HMO) [id number] Rufina J J Olive [id number] Rufina Zen Olive Notes Date Note Type Note Provider [...] questions or concerns. Namrata Olvera PA-C [address], [place], [address], [facility] [place] [facility] 05/31/2024 15:09:27 OBGyn Episode No OBEpisode recorded.
--- OUTSIDE RECORDS SUMMARY | 2024-09-08 15:43 | XMS_ITS | Data Portability ---
Author Organization [place] [facility] Address [address] [place] [address] Assessment No assessment recorded. Plan of Treatment [...] clonidine HCl 0.1 mg tablet 2013 014 [facility] #2098, [address] [place], [address], 4 12:56:11 Creon 12,000-38,0 00-60,000 unit capsule,del ayed release 2013 014 [facility] #2098, [address] [place], [address], 4 12:56:11 ketorolac 10 mg tablet 2013 014 [facility] #2098, [address] [place], [address], 4 12:56:11 Patient TargetsNo targets recorded. Patient Instructions Encounter Date Encounter Id Patient Instructions Last Modified By Organization Details Last Modified Time 03/05/2014 [id number] post-traumatic stress disorder (PTSD): care instructions Not [...] Manuel doshi [facility] [address] [place] [address] XRay Report Signed [place] t: Kae Schaefer MR#: [id number] [birth year] Acct:H [id number] Age/Se x: 43 / F ADM Date: Loc: TOM.MAB R Attend ing Dr: Paul MARIEE Orderi ng Physic rodri: Paul MARIEE Date of Servic e: Proced ure(s) : XR ankle RT min 3V Access ion Number (s): [id number] H cc: unknow n,pcp Study: XR ankle [...] [facility] [address] , [place], [address], 10/17/2023 09:43:42 10/23/19 24 10/23/2023 XR, ankle , 3 or more view Hesulmawrena d [facility] [address] [place] [address] XRay Report Signed [place] t: Kae Schaefer MR#: [id number] 1950 : 1980 Acct:H [id number] Age/Se x: 43 / F ADM Date: Loc: HE.MAB R Attend ing Dr: Paul MARIEE Orderi ng Physic rodri: Paul MARIEE Date of Servic e: Proced ure(s) : XR ankle RT min 3V Access ion Number (s): [id number] H cc: unknow n,pcp Study: XR ankle [...] riptio nist: BF [email or web address] [facility] [address] [place] [address], [address], 10/24/2023 14:54:22 Result Notes None recorded. Problems Name Problem SNOMED Code Status Onset Date Resolution Date Notes Provider Name and Address Organization Details Recorded Time Chronic pancreatit is 598514813 Active Ayanna Lunajaylin [facility] 4 12:56:10 Anxiety disorder 856891493 Active Ayanna Villanueva DO [facility] 4 12:56:10 Chronic hepatitis 47618053 Active Due to Alcoholism Ayanna Villanueva DO [facility] 4 12:56:10 Endometrio sis Active [facility] DO Kay [facility] 4 12:46:08 Posttrauma tic stress disorder 25299716 Active Ayanna Villanueva DO [facility] 4 12:56:10 Harmful pattern of use of alcohol 86408877 Active Ayanna Villanueva DO [facility] 4 12:56:10 Alcoholism 8932672 Active Ayanna Villanueva DO [facility] 4 12:46:08 Opioid dependence 20323155 Active Ayanna Villanueva DO [facility] 4 12:56:10 Gastric ulcer 410423176 Active 2012 Omar LunaidooDO [facility] 4 12:46:08 Problem Notes None recorded. Procedures Surgical History Date Name Laterality Status Provider Name and Address Organization Details Recorded Time dilation and curettage completed Guerline Scarlett [place] [facility] 02/13/2014 13:35:50 Imaging Results Imaging Date Name Status LastModified by Organiz ation Details LastModified Time 10/09/2023 XR, ankle, 3 or more view completed [email or web address] [facility] [address] [place] [address], [address], 10/17/2023 09:43:42 10/23/2023 XR, ankle, 3 or more view completed [email or web address] [facility] [address] [place], [address], 10/24/2023 14:54:22 Procedure Notes None recorded. Medical Equipment None Reported. Allergies No known drug allergies Medications Name Sig Start Date Stop Date Status Note LastModified by Organization Details LastModified Time vitamin b-1 100 mg tabs TAKE 1 TABLET BY MOUTH TWO TIMES A DAY active Not Available Not Available No t Available m-dryl12.5 %/lido2%/g [id number] 0 active Not Available Not Available Not [...] Address Organization Details Last Updated DateTime 4 23582.7 4706 g 100 /min 23.7 kg/m2 162.56 cm 98.4 [degF] 120 mm[Hg] 94 mm[Hg] Britt Rodriguez MA [facility] 4 10:53:27 Social History Question Answer Notes LastModified by Organizat ion Details LastModified Time Tobacco Smoking Status Former Smoker BRENDA Desouza MA [facility] 03/05/2014 10:53:27 What Is Your Level Of Alcohol Consumption? None -- EtOH Level On 01/17 462, But Pt States No Intake Information not available 03/05/2014 What Is Your Level Of Caffeine Consumption? Occasional 1 Cpd [email or web address] Information not available 03/05/2014 How Much Tobacco Do You Chew? None [email or web address] Information not available 03/05/2014 Which Illicit Or Recreational Drugs Have You Used? None Information not available 03/05/2014 Members Of Household 1 [email or web address] Information not available 03/05/2014 Pap Smear 09/17/2013 [facility] [place] [email or web address] Information not available 03/05/2014 Marital Status Single Boyfrined Nasi 2 Years [email or web address] Information not available 03/05/2014 How Many Children Do You Have? 0 [email or web address] Information not available 03/05/2014 Are You Sexually Active? Yes [email or web address] Information not available 03/05/2014 Sex: Unknown Functional Status Question Answer Note LastModified by Organizat ion Details LastModified Time What is your exercise level? Occasional soccer singh Information not available 03/05/2014 Mental Status None [...] SNOMED-CT Code Diagnosis ICD10 Code Diagnosis Note [id number] Aaynna Villanueva DO [facility] [address] [place] [address] 03/05/2014 10:31:10 03/05/2014 11:16:16 Chronic pancreatitis 570957754 GI specialist appointmen t at [facility] 04/09/14 per patient. Will refill her [...] for her comorbid conditions . Anxiety disorder 593177403 with comorbid depression , PTSD and abuse history. Continue Paxil, Clonidine refilled. Recommend establishi care with Psychiatri st in this area. No SI/HI currently. Harmful pa ttern of use of alcohol 06060232 Pt denies any current use despite recent + screen in the ED. Discussed importance of abstinence , risks and benefits. Opioid dependence 08788138 No controlled substances prescribed including tramadol given dependence risk. Discussed risks of dependence . No s/s of withdrawal currently - pt states she hasn't had any for a while. Posttrauma tic stress disorder 34416943 Psych as per above. Chronic hepatitis 82131048 Due to Alcohol. Plan per above. [id number] [facility] [address], [address] [place] [address] 10/09/2023 09:54:39 10/09/2023 10:27:16 Sprain of right ankle 0272480027 8754703 S93.491A This a very pleasant 43-year-ol d [...] x-ray clinical exam. Patient agrees with plan. [id number] [facility] [address] [place] [address] 10/23/2023 09:22:39 10/23/2023 09:42:56 Sprain of right ankle 7179163260 0156709 S93.491A This a very pleasant 43-year-ol d [...] Ramirez Member ID Guarantor Name 03/05/2014 1 [facility] [employer] (MEDICAID HMO) [id number] Rufina Schaefer [id number] Rufina Schaefer 10/09/2023 1 [facility] [employer] (HMO) [id number] Rufina Schaefer [id number] 1 [id number] Rufina Schaefer 10/23/2023 1 [facility] [employer] (HMO) [id number] Rufina Schaefer [id number] 1 [id number] Rufina Zaldivar Olive Notes Date Note Type Note Provider Name and Address Organization Details Recorded Time 4 text/html Pt. Present today for new pt. OVTiffanie KHUSHBOO Pt comes in today to discuss her [...] pains, palpitations, headaches, weakness. DO mino Wan, [facility] 03/05/2014 12:56:36 4 text/html OrthopedicsReported bypatient.Location:Right ; Ankle Quality:Intermittent;Thr obbing Severity:Mild-Moderate Duration:1 months Context:No change Aggravating Factors:Activity;Walking ;Climbing Stairs ImagingX-ray (10/09/23) KODI GARCIA [address] [place], [address], [facility] 10/09/2023 10:28:22 4 text/html OrthopedicsReported bypatient.Location:Right ; Ankle Quality:Intermittent;Ach ing Severity:Mild-Moderate Duration:1 months Context:No change Aggravating Factors:Activity;Walking ;Climbing Stairs ImagingX-ray (10/23/23) KODI GARCIA [address] [place], [address], [facility] 10/23/2023 11:51:39 OBGyn Episode No OBEpisode recorded.
--- OUTSIDE RECORDS SUMMARY | 2024-09-08 15:43 | XMS_ITS | Data Portability ---
Author Organization [facility] [address] Address [address] [place] [address] Care Team Providers Care Bath Steward/Stewardess Name Role Phone MATI SCHNEIDER Primary Care Provider [phone] Assessment No assessment recorded. Plan of Treatment Reminders Order Date Submit Date Provider Last Modified By Organization Details Last Modified Time Details Appointments None recorded. Lab None recorded. Referral None recorded. Procedures None recorded. Surgeries None recorded. Imaging None recorded. Medication Orders Lidocaine Viscous 2 % mucosal solution 2022 023 [facility], [address] [place] [address], [id number], 3 13:56:49 valacyclovi r 1 gram tablet 2022 023 [facility]15246, [address] [place] [address], [id number], 3 13:56:50 Lidocaine Viscous 2 % mucosal solution 2022 023 [facility]69238, [address] [place] [address], [id number], 3 20:01:27 Patient TargetsNo targets recorded. Patient Instructions Encounter Date Encounter Id Patient Instructions Last Modified By Organization Details Last Modified Time 11/17/2022 [id number] Based on your Presentation, Exam, and Lab [...] if you have any questions or concerns. [email or web address] Not available 11/17/2022 20:04:23 11/29/2022 [id number] canker sore: car e instructions [email or web address] Not available 11/29/2022 13:56:47 Reason for Referral None Reported. Problems Name Problem SNOMED Code Status Onset Date Resolution Date Notes Provider Name and Address Organization Details Recorded Time Pancreatitis 24364984 Active Katelynn Ruszala null, [place] - [facility] 19:38:29 Acid reflux 182106461 Active Katelynn Ruszala null, [place] - [facility] 19:38:40 Anxiety 55629075 Active Katelynn Ruszala null, [place] - [facility] 19:38:47 Insomnia 383198759 Active Katelynn Ruszala null, [place] - [facility] 19:38:55 Bipolar disorder 41330090 Active 2022 Guerline Batista null, PA - [...] Name and Address Organization Details Recorded Time 163162 ibuprofen medicatio n Not available Not available Not available 11/17/2022 5640 RxNorm Katelynn Mauriciozala null, [place] - [facility] 19:36:01 308974 acetamino phen medicatio n Not available Not available Not available 11/17/2022 161 RxNorm Katelynn Ruszala null, [place] - [facility] 19:36:19 [id number] [employer] environme nt,medica tion Not available Not available Not available 11/17/2022 34912 6 RxNorm Katelynn Ruszala null, PA - [...] Updated DateTime 3 165.1 cm 28.3 kg/m2 28369.7 g 10 97.1 [degF] 18 /min 97 % 97 % 96 /min 122 mm[Hg] 91 mm[Hg] Katelynn Lozada PA - [email or web address] 3 19:43:08 Date Recorded Body height Body mass index (BMI) Body weight Pain severity - 0-10 verbal numeric rating [Score] - Reported Respiratory rate Oxygen saturation Oxygen saturation in Arterial blood by Pulse oximetry Heart rate Body temperature Systolic blood pressure Diastolic blood pressure Provider Name and Address Organization Details Last Updated DateTime 3 165.1 cm 28.3 kg/m2 41140.7 g 9 18 /min 98 % 98 % 103 /min 98.1 [degF] 134 mm[Hg] 81 mm[Hg] Guerline Goldmayte PA [facility] 3 13:17:58 Social History Question Answer Notes LastModified by Organizat ion Details LastModified Time Tobacco Smoking Status Current Every Day Smoker Katelynn herzog PA [facility] 11/17/2022 19:39:46 What Is Your Level [...] SNOMED-CT Code Diagnosis ICD10 Code Diagnosis Note [id number] [address] [facility] [address] [place] [address] 01/09/2017 19:01:44 01/09/2017 20:34:26 [id number] [facility]ODI BALDWIN [address] [place] [address] 11/17/2022 19:16:22 11/17/2022 20:04:03 Aphthous ulcer of mouth 424239294 K12.0 Hand foot and mouth disease 351297299 B08.4 [id number] Alejandro Lagos [place] [address] [place] [address] 11/29/2022 12:56:12 11/29/2022 14:01:12 Painful mouth 818993444 K13.79 Aphthous u lcer of mouth 406835221 K12.0 Health Concerns Section Related Observation LastModified by Organization Detai ls LastModified Time None Recorded Concern Status LastModified by Organization Details LastModified Time None Recorded Advance Directives Directive None Recorded Payers Encounter Date Sequence Insurance Name Policy Number Policy Ramirez Covered Member ID Ramirez Member ID Guarantor Name 01/09/2017 1 [employer] (MEDICAID REPLACEMENT - HMO) Rufina Schaefer [id number] Rufina Schaefer 11/17/2022 1 [facility] (MEDICAID HMO) [id number] Rufina Schaefer [id number] Rufina Schaefer 11/29/2022 1 [facility] (MEDICAID HMO) [id number] Rufina Schaefer [id number] Rufina Schaefer Notes Date Note Type Note Provider Name and Address Organization Details Recorded Time 11/17/2022 text/html Generic HPI TemplateReported bypatient.Notes:42 y.o female pt presents with 8 days of painful white ulcerative lesions inside of mouth. Pt denies any other sx's. Tried OTC meds without relief. KODI BALDWIN [address] [place], [address], [place] - [facility] 11/23/2022 13:47:39 11/29/2022 text/html Generic HPI TemplateReported bypatient.Notes:42 y.o female pt presents with2 weeks white ulcerative lesions inside of mouth. TRied lidocaine, hasnyt helped Pt denies any other sx's. Tried OTC meds without relief. Alejandro Lagos MD [address] [place], [address], [facility] - [facility] 11/29/2022 13:57:48 OBGyn Episode No OBEpisode recorded.
[2024-09-08 15:49] LABS: Ethanol 127 mg/dL; Lipase 8 U/L (8-78)
[2024-09-08 15:51] LABS: Basophils Absolute Auto 0.1 X10*3/uL (0.0-0.2); Basophils Percent Auto 0.6 % (0-2); Eosinophils Absolute Auto 0.3 X10*3/uL (0.0-0.4); Eosinophils Percent Auto 2.5 % (0-4); Hematocrit 40.4 % (37.0-47.0); Hemoglobin 13.5 g/dl (12.0-16.0); Imm Gran Abs Auto 0.08 X10*3/uL (0.00-0.03); Imm Gran Pct Auto 0.7 % (0.0-0.4); Lymphocytes Absolute Auto 3.9 X10*3/uL (1.2-4.9); Lymphocytes Percent Auto 32.4 % (20-40); Mean Corpuscular HGB Conc 33.4 g/dl (31.0-35.0); Mean Corpuscular Hemoglobin 30.5 pg (27.0-33.0); Mean Corpuscular Volume 91.2 fL (80.0-98.0); Mean Platelet Volume 9.2 fL (9.4-12.3); Monocytes Absolute Auto 1.2 X10*3/uL (0.1-1.2); Monocytes Percent Auto 9.6 % (2-11); Neutrophils Absolute Auto 6.6 x10*3/uL (2.0-8.3); Neutrophils Percent Auto 54.2 % (45-73); Platelet Count 352 X10*3/uL (160-400); Red Blood Count 4.43 X10*6/uL (4.20-5.50); Red Cell Distribution Width 13.6 % (11.0-16.0); White Blood Count 12.1 X10*3/uL (4.8-10.8)
[2024-09-08] MEDS: Lactated Ringers 1,000 ML 999 ML IV (15:52)
[2024-09-08] MEDS: Ketorolac Tromethamine 15 MG/ML VIAL IVPUSH (15:57)
[2024-09-08 16:20] LABS: Alanine Aminotransferase 39 U/L (0-31); Albumin Level 3.8 g/dL (3.5-5.0); Anion Gap 19 (12-20); Aspartate Amino Transferase 80 U/L (5-31); Bilirubin Direct 0.4 mg/dL (0.0-0.5); Bilirubin Total 0.7 mg/dL (0.0-1.0); Blood Urea Nitrogen 3 mg/dL (9-16); Calcium 9.2 mg/dL (8.4-10.2); Carbon Dioxide 23 mmol/L (22-29); Chloride 99 mmol/L (96-108); Creatinine Clr Calc Pharmacy 77.9; Estimated Glomerular Filt Rate > 60; Glucose Random 124 mg/dL (60-115); Magnesium 1.9 mg/dL (1.6-2.6); Potassium 3.1 mmol/L (3.3-5.1); Sodium 138 mmol/L (135-145); Total Protein 6.7 g/dL (6.5-8.0)
[2024-09-08 16:21] LABS: Troponin-I High Sensitivity < 2.7 ng/L (<3.5-17.0)
--- NOTE | 2024-09-08 16:21 | MHC.EDTECH ---
Patient meds locked up in Pharmacy .
--- NOTE | 2024-09-08 16:22 | PC.NURSE ---
pt's ativan bottle is being locked up with pharmacy
[2024-09-08 16:43] LABS: Alkaline Phosphatase 135 U/L (39-117)
[2024-09-08 16:53] LABS: Appearance Urine Turbid; Color Urine Yellow; Glucose Urine UA Negative (Negative); Leukocyte Esterase Urine Trace (Negative); Nitrite Urine Negative (Negative); PH 6.5 (5.0-9.0); UMIC TRIGGER UACC YES; Urine Blood Negative (Negative); Urine Ketones Trace mg/dL (Negative); Urine Protein Negative (Neg-Trace)
[2024-09-08 17:02] LABS: Amphetamine Screen Urine Not Detected (Not Detect); Barbiturates, Urine Not Detected (Not Detect); Benzodiazepines Screen Urine Not Detected (Not Detect); Buprenorphine Scr Not Detected (Not Detect); Cannabinoid Screen Urine Not Detected (Not Detect); Cocaine Screen Urine POSITIVE (Not Detect); Fentanyl, urine Not Detected (Not Detect); Methadone Screen, Urine Not Detected (Not Detect); Opiate Screen Urine Not Detected (Not Detect); Oxycodone Screen Urine Not Detected (Not Detect); Phencyclidine Screen Urine Not Detected (Not Detect)
[2024-09-08] MEDS: Potassium Chloride ER 20 MEQ TAB.ER.PRT 40 MEQ PO (17:05)
[2024-09-08 17:23] LABS: Bacteria Urine 4+ (None Seen); Hyaline Casts Urine 0-2 /LPF (0-2); RBC Urine 0-2 /HPF (0-2); WBC Urine 0-5 /HPF (0-5)
[2024-09-08 17:24] LABS: Acetaminophen LAB < 3 mcg/mL (<30); Salicylate < 5.0 mg/dL (15-30)
[2024-09-08] MEDS: HYDROmorphone HCl 0.5 MG/0.5 ML SYRINGE IVPUSH ×3 (17:26→22:25)
[2024-09-08] MEDS: 0.9 % Sodium Chloride 1,000 ML 999 ML IV (22:32)
--- NOTE | 2024-09-08 22:38 | P.HPHOSP_ITS ---
History of Present Illness Date of Service: 09/08/24 Attending physician on admission: Raquel Junior Chief Complaint: abd pain, SI Patient is a 44-year-old female with a past medical history significant for chronic pancreatitis, hx etoh abuse, cocaine use, GERD, anxiety and depression, who presented to the ED today with left upper quadrant pain x2 days radiating to the midback with SI secondary to her chronic pancreatitis with plan to overdose on lorazepam. She rates his pain at 10/10 worse with lying back, currently 5/10 after receiving pain Dilaudid. She also has severe nausea and vomiting without any hematemesis or coffee-ground emesis. She has been able to tolerate clear liquids for the most part but does have abdominal pain with them. She has not had anything solid in the past few days. She has a longstanding history of chronic alcohol abuse and reports that she had 1 twisted tea the past 2 nights which caused her to have severe abdominal pain. She also complains of a chronic dry cough, worse at night, related to her allergies. She has been using cough medication and albuterol as needed. She denies any sputum production, fever or chills. Review of Systems 2 Constitutional: Constitutional: Denies body ache(s), Denies chills, Denies fatigue, Denies fever(s) and Denies headache(s) Eyes: Eyes: Denies change in vision and Denies photophobia ENT: Denies headache(s), Reports nasal congestion, Reports nasal discharge and Denies sore throat Cardiovascular: Cardiovascular: Denies chest pain, Denies rapid heart rate, Denies leg edema, Denies lightheadedness and Denies dyspnea Respiratory: Respiratory: Denies chest congestion, Reports cough, Denies dyspnea and Reports wheezing Gastrointestinal: Gastrointestinal: Reports abdominal pain, Denies coffee ground emesis, Reports diarrhea, Reports nausea, Reports vomiting and Denies hematemesis Genitourinary: Genitourinary: Denies difficulty voiding, Denies dysuria and Denies urinary urgency Musculoskeletal: Musculoskeletal: Denies myalgias Integumentary/Breasts: Skin/Breast: Denies rash Neurologic: Denies confusion and Denies headache(s) Psychiatric: Psychiatric: Denies confusion and Reports suicidal ideation Endocrine: Endocrine: Denies fatigue Hematologic/Lymphatic: Hematologic/Lymphatic: Denies easy bleeding and Denies easy bruising Allergic/Immunologic: Allergic/Immunologic: Reports wheezing [facility] Medical History Alcohol abuse Obesity (BMI 30.0-34.9) Pancreatitis Back pain Alcohol use disorder, severe, dependence Gastritis Gastritis Endometriosis Constipation Anxiety Depression Bipolar disorder Suicidal behavior PTSD (post-traumatic stress disorder) Functional capacity: independent ambulation Surgical History History of ankle surgery Social History Household Members: Spouse Housing: House Do you presently have visiting nurse or other home services: No Alcohol intake: current Alcohol intake frequency: a few times a week Alcohol type: beer and hard liquor Comment: pt reports no effects as of yet Patient Tobacco Use Status: Current everyday Tobacco user Tobacco use type: Cigarette Smoked in Last 30 Days: No e-Cigarette/Vaping Use: Currently Using Second Hand Smoke Exposure: Yes Use of substances other than those prescribed or required for medical reasons: Yes Substance Use Type: Crack/Cocaine Advance Directives: Yes Advance Directives on File: Yes Advance Directives Date on File: 09/07/23 Do you have a plan to hurt others: No Plan service: No Sexual orientation: Straight/Heterosexual Meds Allergies Allergy/AdvReac Type Severity Reaction Status Date / Time acetaminophen [From Tylenol] AdvReac Stomach Verified 09/08/24 15:34 Upset ibuprofen AdvReac Stomach Verified 09/08/24 15:34 Upset morphine AdvReac Gastrointestinal Verified 09/08/24 15:34 Upset bees Allergy Severe Anaphylaxis Uncoded 08/23/24 02:54 Active Medications: Current Medications Calcium Carbonate (Calcium Carbonate 750 Mg Tab.Chew) 750 mg PO Q4H PRN PRN Reason: Heartburn Enoxaparin Sodium (Enoxaparin Sodium 40 Mg/0.4 Ml Syringe) 40 mg SUBCUT Q24H ELIZABETH Hydromorphone HCl (Hydromorphone Hcl 1 Mg/Ml Syringe) 0.5 mg IVPUSH Q4H PRN; Protocol PRN Reason: Pain, Severe (Pain Scale 7-10) Sodium Chloride (Ns) 1,000 mls @ 999 mls/hr IV .Q1H1M ELIZABETH Stop: 09/08/24 23:15 Last Admin: 09/08/24 22:32 Dose: 999 mls/hr Lactated Ringer's (Lr) 1,000 mls @ 80 mls/hr IVCONT .[id number] [facility] Ibuprofen (Ibuprofen 600 Mg Tablet) 600 mg PO Q8H PRN PRN Reason: Pain, Mild (Pain Scale 1-3) Magnesium Hydroxide (Milk Of Magnesia 30 Ml Oral.Susp) 30 ml PO DAILY PRN PRN Reason: Constipation Melatonin (Melatonin 3 Mg Tablet) 6 mg PO BEDTIME PRN PRN Reason: Insomnia Morphine Sulfate (Morphine Sulfate 4 Mg/Ml Cartridge) 2 mg IVPUSH Q4H PRN; Protocol PRN Reason: Pain, Moderate(Pain Scale 4-6) Ondansetron HCl (Ondansetron Hcl 4 Mg/2 Ml Vial) 4 mg IVPUSH Q8H PRN PRN Reason: Nausea and Vomiting Sodium Chloride (0.9 % Sodium Chloride Flush 3 Ml Syringe) [facility] Home Medications ?Medication ?Instructions ?Recorded ?Confirmed ?Last Taken ?Type aripiprazole 10 mg tablet 1 tab PO BEDTIME 05/21/21 08/23/24 08/20/24 History doxepin 50 mg capsule 1 cap PO BEDTIME 05/21/21 08/23/24 08/20/24 History gabapentin 600 mg tablet 600 mg PO TID 05/21/21 09/08/24 09/07/24 History lorazepam 1 mg tablet 1 mg PO TID PRN Anxiety 05/21/21 08/23/24 05/06/24 History pantoprazole 40 mg tablet,delayed 40 mg PO DAILY@0630 05/21/21 08/23/24 08/20/24 History release bupropion HCl 300 mg 24 hr tablet, 300 mg PO DAILY 09/07/23 08/23/24 08/20/24 History extended release folic acid 1 mg tablet 1 mg PO DAILY 09/07/23 08/23/24 08/20/24 History lamotrigine 25 mg tablet 75 mg PO BEDTIME 09/07/23 08/23/24 08/20/24 History hjfeip-lgtfxbtw-mwocsyt 1 cap PO TID 08/23/24 08/23/24 Unknown History 36,000-114,000-180,000 unit capsule,delay rel (Creon) melatonin 3 mg tablet 3 mg PO BEDTIME PRN Sleep 08/23/24 08/23/24 08/20/24 History multivitamin 1 tab PO DAILY 08/23/24 08/23/24 08/20/24 History trazodone 150 mg tablet 150 mg PO BEDTIME 08/23/24 08/23/24 08/20/24 History clonidine HCl 0.1 mg tablet 0.2 mg PO BEDTIME 09/08/24 09/08/24 09/07/24 History cyclobenzaprine 10 mg tablet 10 mg PO BEDTIME 09/08/24 09/08/24 09/07/24 History mirtazapine 15 mg disintegrating 15 mg PO BEDTIME 09/08/24 09/08/24 09/07/24 History tablet Physical Exam 2 Vital Signs and Narrative: Vital Signs: Last Vital Signs Temp 98.2 F 09/08/24 21:12 Pulse 111 H 09/08/24 21:12 Resp 20 09/08/24 22:25 BP 132/94 H 09/08/24 21:12 Pulse Ox 96 09/08/24 21:12 O2 Del Method Room Air 09/08/24 21:12 BMI result Body Mass Index 28.5 General: AOx3, no acute distress Resp: Mild expiratory wheezing throughout, no crackles or rhonchi CVS: Tachycardia, normal rhythm, no murmur GI: +BS, tender left upper quadrant, no distention Skin: Warm, dry Neuro: Cranial nerves II-XII grossly intact bilaterally. Motor grossly intact bilaterally Extremities: No LE edema Psych: Appropriate affect Const: General: No confusion Orientation/consciousness: No confusion Eyes: Direct Ophthalmoscopy: No photophobia Neuro: General: No confusion Results Labs 09/08/24 15:31 09/08/24 15:31 Labs: Laboratory Results - last 24 hr 09/08/24 09/08/24 15:31 16:46 MCV 91.2 MCH 30.5 MCHC 33.4 RDW 13.6 Plt Count 352 D MPV 9.2 L Immature Gran % (Auto) 0.7 H Neut % (Auto) 54.2 Lymph % (Auto) 32.4 [place] % (Auto) 9.6 Eos % (Auto) 2.5 Baso % (Auto) 0.6 Lymph # (Auto) 3.9 [place] # (Auto) 1.2 Eos # (Auto) 0.3 Baso # (Auto) 0.1 Abs Immat Gran (auto) 0.08 H Absolute Neuts (auto) 6.6 Absolute Nucleated RBC 0.000 Nucleated RBC % (auto) 0.0 Anion Gap 19 Estim Creat Clear Calc 77.9 Estimated GFR > 60 Random Glucose 124 H Calcium 9.2 D Magnesium 1.9 Total Bilirubin 0.7 Direct Bilirubin 0.4 AST 80 H ALT 39 H Alkaline Phosphatase 135 H Total Protein 6.7 Albumin 3.8 Lipase 8 Urine Color Yellow Urine Appearance Turbid Urine pH 6.5 Ur Specific [place] 1.010 Urine Protein Negative Urine Glucose (UA) Negative Urine Ketones Trace Urine Blood Negative Urine Nitrite Negative Ur Leukocyte Esterase Trace H Urine RBC 0-2 Urine WBC 0-5 Ur Squamous Epith Cells 6-10 Urine Bacteria 4+ Hyaline Casts 0-2 Salicylates < 5.0 L Urine Opiates Screen Not Detected Ur Buprenorphine Scrn Not Detected Ur Oxycodone Screen Not Detected Urine Methadone Screen Not Detected Urine Fentanyl Screen Not Detected Acetaminophen < 3 Ur Barbiturates Screen Not Detected Ur Phencyclidine Scrn Not Detected Ur Amphetamines Screen Not Detected U Benzodiazepines Scrn Not Detected Urine Cocaine Screen POSITIVE H U Marijuana (THC) Screen Not Detected Ethyl Alcohol 127 Assessment and Plan (1) Acute on chronic pancreatitis: Status: Acute (2) Suicidal ideation: Status: Acute (3) Hypokalemia: Status: Acute (4) Chronic cough: Status: Acute Plan Patient is a 44-year-old female with a past medical history significant for chronic pancreatitis, hx etoh abuse, cocaine use, GERD, anxiety and depression, who presented to the ED today with left upper quadrant pain x2 days radiating to the midback with SI secondary to her chronic pancreatitis with plan to overdose on lorazepam. Acute on chronic pancreatitis - WBC 12.1, reactive, tachycardia secondary to pain and albuterol use, no active infection - abdominopelvic CT pending - AST 80, ALT 39, alk-phos 135 - UA negative - UTox positive for cocaine, patient admits to using earlier today - EKG with sinus tachycardia - lipase 8, low due to chronic pancreatitis - clear liquid diet, advance diet as tolerated - pain management with oxycodone and Dilaudid - given 2 L IV fluids in ED, continue LR 100 mL/HR - monitor CBC and BMP Suicide ideation - care team consult - sitter - patient reports when she is able to tolerate p.o. and can take her anxiety and depression medications again she feels that she will be stable Hypokalemia - secondary to vomiting - given 40 mEq p.o. in ED - recheck BMP and magnesium tomorrow Substance use disorder - patient admits to cocaine use earlier today - consider addiction med consult GERD - continue home meds Anxiety and depression - continue home meds History alcohol abuse - patient reports that she does not drink daily - monitor CIWA Chronic cough - likely COPD component, no formal dx - no fever or hypoxia, lungs clear, no need for CXR at this time - levalbuteral Q4H PRN for wheezing or SOB - tessalon PRN for cough - f/u outpt for formal pulmonary evaluation Full code VTE prophylaxis: Lovenox Patient with acute on chronic pancreatitis complicated by suicidal ideation secondary to her chronic pain, requiring admission for at least 2 midnights stay for IV fluids, pain management followed by care team consultation once medically cleared. Quality Stroke Does the patient have a stroke diagnosis?: No VTE Prior VTE?: No VTE Risk Level:: Medical - moderate - high VTE Device Contraindication: Treatment Not Indicated VTE Drug Contraindication: N/A - Med Ordered
[2024-09-08 23:07] LABS: HCG Quantitative 6 mIU/mL
[2024-09-08] MEDS: iohexoL 350 MG/ML 100 ML INFUS..BTL 85 ML IV (23:15)
[2024-09-08] MEDS: Lactated Ringers 1,000 ML 100 ML IVCONT (23:41)
--- NOTE | 2024-09-08 23:45 | PC.NURSE ---
pt refused lovenox, states I am restless and get up a lot, I don't need a blood thinner . primary nurse aware
[2024-09-09] VITALS (7 sets, daily range): BP systolic 132–147; BP diastolic 84–96; PULSE 82–103; RESP 14–18; TEMP 36.4–36.7; O2SAT 94–98; BMI 28.5
[2024-09-09] MEDS: HYDROmorphone HCl 1 MG/ML SYRINGE 0.5 MG IVPUSH ×5 (01:12→19:53)
[2024-09-09] MEDS: diazePAM 10 MG/2 ML CARTRIDGE 2.5 MG IVPUSH (02:07)
[2024-09-09] MEDS: Calcium Carbonate 750 MG TAB.CHEW PO ×3 (02:08→21:39)
[2024-09-09] MEDS: HYDROmorphone HCl 0.5 MG/0.5 ML SYRINGE IVPUSH (04:13)
[2024-09-09 04:59] LABS: MANUAL DIFF FLAG NO
[2024-09-09 05:02] LABS: Basophils Absolute Auto 0.1 X10*3/uL (0.0-0.2); Basophils Percent Auto 0.8 % (0-2); Eosinophils Absolute Auto 0.4 X10*3/uL (0.0-0.4); Eosinophils Percent Auto 4.6 % (0-4); Hematocrit 34.7 % (37.0-47.0); Hemoglobin 11.3 g/dl (12.0-16.0); Imm Gran Abs Auto 0.04 X10*3/uL (0.00-0.03); Imm Gran Pct Auto 0.5 % (0.0-0.4); Lymphocytes Absolute Auto 2.7 X10*3/uL (1.2-4.9); Lymphocytes Percent Auto 32.8 % (20-40); Mean Corpuscular HGB Conc 32.6 g/dl (31.0-35.0); Mean Corpuscular Hemoglobin 30.4 pg (27.0-33.0); Mean Corpuscular Volume 93.3 fL (80.0-98.0); Mean Platelet Volume 9.2 fL (9.4-12.3); Monocytes Absolute Auto 0.7 X10*3/uL (0.1-1.2); Monocytes Percent Auto 8.9 % (2-11); Neutrophils Absolute Auto 4.3 x10*3/uL (2.0-8.3); Neutrophils Percent Auto 52.4 % (45-73); Platelet Count 259 X10*3/uL (160-400); Red Blood Count 3.72 X10*6/uL (4.20-5.50); Red Cell Distribution Width 13.6 % (11.0-16.0); White Blood Count 8.2 X10*3/uL (4.8-10.8)
[2024-09-09 05:22] LABS: Alanine Aminotransferase 29 U/L (0-31); Albumin Level 3.2 g/dL (3.5-5.0); Alkaline Phosphatase 115 U/L (39-117); Anion Gap 14 (12-20); Aspartate Amino Transferase 78 U/L (5-31); Bilirubin Total 1.2 mg/dL (0.0-1.0); Blood Urea Nitrogen 4 mg/dL (9-16); Calcium 8.6 mg/dL (8.4-10.2); Carbon Dioxide 25 mmol/L (22-29); Chloride 103 mmol/L (96-108); Estimated Glomerular Filt Rate > 60; Glucose Random 107 mg/dL (60-115); Magnesium 1.6 mg/dL (1.6-2.6); Potassium 3.8 mmol/L (3.3-5.1); Sodium 138 mmol/L (135-145); Total Protein 5.6 g/dL (6.5-8.0)
[2024-09-09] MEDS: Lactated Ringers 1,000 ML 100 ML IVCONT ×2 (07:06→19:59)
[2024-09-09] MEDS: 0.9 % Sodium Chloride Flush 3 ML SYRINGE IVFLUSH (07:06)
[2024-09-09] MEDS: oxyCODONE HCl Immed Release 5 MG TABLET PO ×2 (08:37→17:13)
--- NOTE | 2024-09-09 09:04 | P.PNIM_ITS ---
Subjective Subjective Date of Service: 09/09/24 Interval History: Follow up pancreatitis still with pain but requesting clear liquid diet Review of Systems Review of Systems: Yes all other systems are reviewed and are negative Physical Exam 2 Vital Signs: Vital Signs: Last Vital Signs Temp 98.1 F 09/09/24 08:40 Pulse 91 09/09/24 08:40 Resp 18 09/09/24 08:40 BP 137/96 H 09/09/24 08:40 Pulse Ox 94 09/09/24 08:40 O2 Del Method Room Air 09/09/24 08:40 BMI result Body Mass Index 28.5 Appearing in no acute distress lung sounds are clear to auscultation heart regular rate rhythm, clear S1, S2 positive bowel sounds, abdomen is soft, nontender neuro patient is alert x3, no focal deficits Objective Data Active Medications Benzonatate (Benzonatate 100 Mg Capsule) 100 mg PO TID PRN PRN Reason: Cough Calcium Carbonate (Calcium Carbonate 750 Mg Tab.Chew) 750 mg PO Q4H PRN PRN Reason: Heartburn Last Admin: 09/09/24 02:08 Dose: 750 mg Documented By: GABRIEL Enoxaparin Sodium (Enoxaparin Sodium 40 Mg/0.4 Ml Syringe) 40 mg SUBCUT Q24H [facility] Last Admin: 09/08/24 23:39 Dose: Not Given Documented By: LUCY Non-Admin Reason: Patient Refused Hydromorphone HCl (Hydromorphone Hcl 1 Mg/Ml Syringe) 0.5 mg IVPUSH Q4H PRN; Protocol PRN Reason: Pain, Severe (Pain Scale 7-10) Last Admin: 09/09/24 07:01 Dose: 0.5 mg Documented By: HUMBLE Lactated Ringer's (Lr) 1,000 mls @ 100 mls/hr IVCONT .Q10H [facility] Last Admin: 09/09/24 07:06 Dose: 100 mls/hr Documented By: HUMBLE Ibuprofen (Ibuprofen 600 Mg Tablet) 600 mg PO Q8H PRN PRN Reason: Pain, Mild (Pain Scale 1-3) Levalbuterol HCl (Levalbuterol Hcl 1.25 Mg/3 Ml Vial.Neb) 1.25 mg INHALE Q4H PRN PRN Reason: Shortness of Breath/Wheezing Magnesium Hydroxide (Milk Of Magnesia 30 Ml Oral.Susp) 30 ml PO DAILY PRN PRN Reason: Constipation Melatonin (Melatonin 3 Mg Tablet) 6 mg PO BEDTIME PRN PRN Reason: Insomnia Morphine Sulfate (Morphine Sulfate 2 Mg/Ml Cartridge) 2 mg IVPUSH Q4H PRN; Protocol PRN Reason: Pain, Moderate(Pain Scale 4-6) Ondansetron HCl (Ondansetron Hcl 4 Mg/2 Ml Vial) 4 mg IVPUSH Q8H PRN PRN Reason: Nausea and Vomiting Oxycodone HCl (Oxycodone Hcl Immed Release 5 Mg Tablet) 5 mg PO Q6H PRN PRN Reason: Pain, Moderate(Pain Scale 4-6) Last Admin: 09/09/24 08:37 Dose: 5 mg Documented By: LACIE Sodium Chloride (0.9 % Sodium Chloride Flush 3 Ml Syringe) 3 ml IVFLUSH QSHIFT [facility] Last Admin: 09/09/24 07:06 Dose: 3 ml Documented By: HUMBLE Labs 09/09/24 04:46 09/09/24 04:45 Labs: Laboratory Results - last 24 hr 09/08/24 09/08/24 09/09/24 15:31 16:46 04:45 MCV 91.2 MCH 30.5 MCHC 33.4 RDW 13.6 Plt Count 352 D MPV 9.2 L Immature Gran % (Auto) 0.7 H Neut % (Auto) 54.2 Lymph % (Auto) 32.4 [place] % (Auto) 9.6 Eos % (Auto) 2.5 Baso % (Auto) 0.6 Lymph # (Auto) 3.9 [place] # (Auto) 1.2 Eos # (Auto) 0.3 Baso # (Auto) 0.1 Abs Immat Gran (auto) 0.08 H Absolute Neuts (auto) 6.6 Absolute Nucleated RBC 0.000 Nucleated RBC % (auto) 0.0 Anion Gap 19 14 Estim Creat Clear Calc 77.9 102.0 Estimated GFR > 60 > 60 Random Glucose 124 H 107 Calcium 9.2 D 8.6 D Magnesium 1.9 1.6 Total Bilirubin 0.7 1.2 H Direct Bilirubin 0.4 AST 80 H 78 H ALT 39 H 29 Alkaline Phosphatase 135 H 115 Total Protein 6.7 5.6 L Albumin 3.8 3.2 L Lipase 8 Beta HCG, Quant 6 Urine Color Yellow Urine Appearance Turbid Urine pH 6.5 Ur Specific [place] 1.010 Urine Protein Negative Urine Glucose (UA) Negative Urine Ketones Trace Urine Blood Negative Urine Nitrite Negative Ur Leukocyte Esterase Trace H Urine RBC 0-2 Urine WBC 0-5 Ur Squamous Epith Cells 6-10 Urine Bacteria 4+ Hyaline Casts 0-2 Salicylates < 5.0 L Urine Opiates Screen Not Detected Ur Buprenorphine Scrn Not Detected Ur Oxycodone Screen Not Detected Urine Methadone Screen Not Detected Urine Fentanyl Screen Not Detected Acetaminophen < 3 Ur Barbiturates Screen Not Detected Ur Phencyclidine Scrn Not Detected Ur Amphetamines Screen Not Detected U Benzodiazepines Scrn Not Detected Urine Cocaine Screen POSITIVE H U Marijuana (THC) Screen Not Detected Ethyl Alcohol 127 09/09/24 04:46 MCV 93.3 MCH 30.4 MCHC 32.6 RDW 13.6 Plt Count 259 D MPV 9.2 L Immature Gran % (Auto) 0.5 H Neut % (Auto) 52.4 Lymph % (Auto) 32.8 [place] % (Auto) 8.9 Eos % (Auto) 4.6 H Baso % (Auto) 0.8 Lymph # (Auto) 2.7 [place] # (Auto) 0.7 Eos # (Auto) 0.4 Baso # (Auto) 0.1 Abs Immat Gran (auto) 0.04 H Absolute Neuts (auto) 4.3 Absolute Nucleated RBC 0.000 Nucleated RBC % (auto) 0.0 Anion Gap Estim Creat Clear Calc Estimated GFR Random Glucose Calcium Magnesium Total Bilirubin Direct Bilirubin AST ALT Alkaline Phosphatase Total Protein Albumin Lipase Beta HCG, Quant Urine Color Urine Appearance Urine pH Ur Specific [place] Urine Protein Urine Glucose (UA) Urine Ketones Urine Blood Urine Nitrite Ur Leukocyte Esterase Urine RBC Urine WBC Ur Squamous Epith Cells Urine Bacteria Hyaline Casts Salicylates Urine Opiates Screen Ur Buprenorphine Scrn Ur Oxycodone Screen Urine Methadone Screen Urine Fentanyl Screen Acetaminophen Ur Barbiturates Screen Ur Phencyclidine Scrn Ur Amphetamines Screen U Benzodiazepines Scrn Urine Cocaine Screen U Marijuana (THC) Screen Ethyl Alcohol Assessment and Plan (1) Intractable nausea and vomiting: Status: Acute (2) Esophagitis: Status: Acute (3) Alcohol abuse: Status: Inactive Plan 44-year-old female with a PMH significant for chronic pancreatitis,?GERD, alcohol use disorder, and anxiety who presented to the ED with?N/V/abdominal pain times 3 days. Pt admitted to the hospital under observation for treatment and further evaluation of intractable nausea, vomiting, and abdominal pain in the setting of acute on chronic pancreatitis. Intractable nausea, vomiting, abdominal pain improving CT showing esophagitis and chronic pancreatitis, otherwise no acute abnormalities maintenance fluids Pain management, antiemetics, Protonix IV Clear liquid diet, advance as tolerated Acute lactic acidosis Secondary to hypovolemia from intractable N/V, not sepsis, improved Leukocytosis resolved No indication of active infection that would necessitate antibiotics at this time Alcohol use disorder Pt reports used to drink heavily Ed with hx of alcohol withdrawal Reports he has cut back drastically, currently drinking 1 large Twisted Tea and a couple of nips daily after work Monitor on CIWA Depression/Anxiety Continue omeprazole, bupropion, lamotrigine, prazosin, lorazepam Full Code DVT Prophylaxis: Lovenox Quality Stroke Does the patient have a stroke diagnosis?: No VTE Prior VTE?: No VTE Risk Level:: Medical - moderate - high VTE Device Contraindication: Treatment Not Indicated VTE Drug Contraindication: N/A - Med Ordered
--- NOTE | 2024-09-09 10:48 | PHA.MEDREC ---
Addendum entered by Merari Sosa RPh 09/09/24 13:28: reviewed by [facility]. Original Note: Pharmacy Consult ? Medication Reconciliation Pharmacy has completed the medication reconciliation. Spoke to patient to confirm med list. Patient states she in no longer taking Eliquis 2.5 mg (Dr took her off ), Vitamin D3 125 mcg, Cyclobenzaprine 10 mg, Melatonin 3 mg ( uses Nyquil liquid), Oxycodone 5 mg, and Sucralfate 1 g . Patient last took her medication 3 days ago.
[2024-09-09] MEDS: LORazepam 1 MG TABLET PO ×2 (13:26→21:34)
[2024-09-09] MEDS: buPROPion HCl XL 300 MG TAB.ER.24H PO (13:26)
--- NOTE | 2024-09-09 14:06 | MHC.RECOVRN ---
AUDIT-C Brief Intervention Pt had positive screen for unhealthy alcohol use on admission, subsequently met with t/w to discuss alcohol use and recovery supports/options. This chief underwriter met with patient to discuss current alcohol use and concerns related to increased risk of alcohol related problems.? Pt reports 1 large Twisted Tea and 2 Fireball nips daily after work. 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 Pt reports after work approx once weekly using 1 line cocaine, [place]. Pt states I'm done with it though. It's not the same and tastes like aspirin. Discussed how alcohol use has impacted health, including negative impact on overall physical wellbeing. Withdrawal History: reports hx withdrawal seizure 15+ years ago Treatment History: ATS x 30, CSS x 20, TSS x 10; most recently [facility] one year ago Pt reports since discharge from [facility] she has significantly reduced the amount of alcohol she drinks. Supports:?parents, brother, partner Discussed risk reduction strategies including drinking below the recommended limit. Provided pt with written resources including information on inpatient and outpatient treatment, [facility], harm reduction, and recovery coaching. Pt declines [facility], declines appt for tx for AUD, declines other referrals at this time. Pt provided with t/w contact information if questions or concerns arise. Denies other questions or concerns at this time.?
[2024-09-09] MEDS: Lipase/Prot/Amylase 12/38/60K CAPSULE.DR 3 CAP PO (14:59)
[2024-09-09] MEDS: Gabapentin 600 MG TABLET PO ×2 (15:02→21:33)
[2024-09-09] MEDS: levalbuterol HCL 1.25 MG/3 ML VIAL.NEB INHALE (20:52)
[2024-09-09] MEDS: traZODone HCL 50 MG TABLET 150 MG PO (21:32)
[2024-09-09] MEDS: Doxepin HCl 25 MG CAPSULE 50 MG PO (21:32)
[2024-09-09] MEDS: Benzonatate 100 MG CAPSULE PO (21:32)
[2024-09-09] MEDS: lamoTRIgine 25 MG TABLET 75 MG PO (21:33)
[2024-09-09] MEDS: Prazosin HCL 5 MG CAPSULE PO (21:33)
[2024-09-10] MEDS: HYDROmorphone HCl 1 MG/ML SYRINGE 0.5 MG IVPUSH ×6 (00:30→22:04)
[2024-09-10 03:24] VITALS: BP 112/69; PULSE 109; RESP 18; TEMP 37; O2SAT 93
[2024-09-10] MEDS: Lactated Ringers 1,000 ML 100 ML IVCONT (04:33)
[2024-09-10] MEDS: Pantoprazole Sodium 20 MG TABLET.DR 40 MG PO (06:06)
[2024-09-10] MEDS: oxyCODONE HCl Immed Release 5 MG TABLET PO ×3 (06:06→23:21)
[2024-09-10 06:11] LABS: MANUAL DIFF FLAG NO
[2024-09-10 06:18] LABS: Basophils Percent Auto 0.6 % (0-2); Eosinophils Absolute Auto 0.3 X10*3/uL (0.0-0.4); Eosinophils Percent Auto 4.5 % (0-4); Hematocrit 31.6 % (37.0-47.0); Hemoglobin 10.5 g/dl (12.0-16.0); Imm Gran Abs Auto 0.03 X10*3/uL (0.00-0.03); Imm Gran Pct Auto 0.5 % (0.0-0.4); Lymphocytes Absolute Auto 2.5 X10*3/uL (1.2-4.9); Lymphocytes Percent Auto 37.4 % (20-40); Mean Corpuscular HGB Conc 33.2 g/dl (31.0-35.0); Mean Corpuscular Hemoglobin 30.3 pg (27.0-33.0); Mean Corpuscular Volume 91.1 fL (80.0-98.0); Mean Platelet Volume 9.5 fL (9.4-12.3); Monocytes Absolute Auto 0.6 X10*3/uL (0.1-1.2); Monocytes Percent Auto 9.2 % (2-11); Neutrophils Absolute Auto 3.2 x10*3/uL (2.0-8.3); Neutrophils Percent Auto 47.8 % (45-73); Platelet Count 217 X10*3/uL (160-400); Red Blood Count 3.47 X10*6/uL (4.20-5.50); Red Cell Distribution Width 13.6 % (11.0-16.0); White Blood Count 6.7 X10*3/uL (4.8-10.8)
[2024-09-10 06:38] LABS: Alanine Aminotransferase 30 U/L (0-31); Albumin Level 2.8 g/dL (3.5-5.0); Alkaline Phosphatase 103 U/L (39-117); Anion Gap 11 (12-20); Aspartate Amino Transferase 79 U/L (5-31); Bilirubin Total 0.7 mg/dL (0.0-1.0); Blood Urea Nitrogen 3 mg/dL (9-16); Calcium 8.9 mg/dL (8.4-10.2); Carbon Dioxide 28 mmol/L (22-29); Chloride 103 mmol/L (96-108); Creatinine Clr Calc Pharmacy 108.1; Estimated Glomerular Filt Rate > 60; Glucose Random 108 mg/dL (60-115); Magnesium 1.5 mg/dL (1.6-2.6); Sodium 138 mmol/L (135-145)
[2024-09-10 07:07] VITALS: BP 109/65; PULSE 105; RESP 18; TEMP 36.8; O2SAT 92
--- NOTE | 2024-09-10 08:10 | P.PNIM_ITS ---
Subjective Subjective Date of Service: 09/10/24 Interval History: Follow up pancreatitis pain is better, eating some foods Review of Systems Review of Systems: Yes all other systems are reviewed and are negative Physical Exam 2 Vital Signs: Vital Signs: Last Vital Signs Temp 98.2 F 09/10/24 07:07 Pulse 105 H 09/10/24 07:07 Resp 18 09/10/24 07:07 BP 109/65 09/10/24 07:07 Pulse Ox 92 09/10/24 07:07 O2 Del Method Room Air 09/10/24 07:07 BMI result Body Mass Index 28.5 Appearing in no acute distress lung sounds are clear to auscultation heart regular rate rhythm, clear S1, S2 positive bowel sounds, abdomen is soft, nontender neuro patient is alert x3, no focal deficits Objective Data Active Medications Lipase/Protease/Amylase (Lipase/Prot/Amylase //60k Capsule.Dr) 3 cap PO TID [facility] Last Admin: 09/09/24 21:34 Dose: Not Given Documented By: BRANT Non-Admin Reason: per pt takes before meals Benzonatate (Benzonatate 100 Mg Capsule) 100 mg PO TID PRN PRN Reason: Cough Last Admin: 09/09/24 21:32 Dose: 100 mg Documented By: BRANT Bupropion HCl (Bupropion Hcl Xl 300 Mg Tab.Er.24h) 300 mg PO DAILY [facility] Last Admin: 09/09/24 13:26 Dose: 300 mg Documented By: LAPOINDavid Calcium Carbonate (Calcium Carbonate 750 Mg Tab.Chew) 750 mg PO Q4H PRN PRN Reason: Heartburn Last Admin: 09/09/24 21:39 Dose: 750 mg Documented By: BRANT Diphenhydramine HCl (Diphenhydramine Hcl 12.5 Mg/5 Ml Liquid) 50 mg PO BEDTIME PRN PRN Reason: Sleep Doxepin HCl (Doxepin Hcl 25 Mg Capsule) 50 mg PO BEDTIME [facility] Last Admin: 09/09/24 21:32 Dose: 50 mg Documented By: BRANT Enoxaparin Sodium (Enoxaparin Sodium 40 Mg/0.4 Ml Syringe) 40 mg SUBCUT Q24H [facility] Last Admin: 09/09/24 22:48 Dose: Not Given Documented By: BRANT Non-Admin Reason: Patient Refused Folic Acid (Folic Acid 1 Mg Tablet) 1 mg PO DAILY [facility] Gabapentin (Gabapentin 600 Mg Tablet) 600 mg PO TID [facility] Last Admin: 09/09/24 21:33 Dose: 600 mg Documented By: BRANT Hydromorphone HCl (Hydromorphone Hcl 1 Mg/Ml Syringe) 0.5 mg IVPUSH Q4H PRN; Protocol PRN Reason: Pain, Severe (Pain Scale 7-10) Last Admin: 09/10/24 04:30 Dose: 0.5 mg Documented By: BRANT Lactated Ringer's (Lr) 1,000 mls @ 100 mls/hr IVCONT .Q10H [facility] Last Admin: 09/10/24 04:33 Dose: 100 mls/hr Documented By: BRANT Magnesium Sulfate (Magnesium Sulfate/H2o) 2 gm in 50 mls @ 25 mls/hr IV ONCE ONE Stop: 09/10/24 09:11 Ibuprofen (Ibuprofen 600 Mg Tablet) 600 mg PO Q8H PRN PRN Reason: Pain, Mild (Pain Scale 1-3) Lamotrigine (Lamotrigine 25 Mg Tablet) 75 mg PO BEDTIME [facility] Last Admin: 09/09/24 21:33 Dose: 75 mg Documented By: BRANT Levalbuterol HCl (Levalbuterol Hcl 1.25 Mg/3 Ml Vial.Neb) 1.25 mg INHALE Q4H PRN PRN Reason: Shortness of Breath/Wheezing Last Admin: 09/09/24 20:52 Dose: 1.25 mg Documented By: GODWIN Lorazepam (Lorazepam 1 Mg Tablet) 1 mg PO TID PRN PRN Reason: Anxiety Last Admin: 09/09/24 21:34 Dose: 1 mg Documented By: BRANT Magnesium Hydroxide (Milk Of Magnesia 30 Ml Oral.Susp) 30 ml PO DAILY PRN PRN Reason: Constipation Melatonin (Melatonin 3 Mg Tablet) 6 mg PO BEDTIME PRN PRN Reason: Insomnia Morphine Sulfate (Morphine Sulfate 2 Mg/Ml Cartridge) 2 mg IVPUSH Q4H PRN; Protocol PRN Reason: Pain, Moderate(Pain Scale 4-6) Multivitamins/Vitamin C (Multivitamin Tablet) 1 tab PO DAILY [facility] Ondansetron HCl (Ondansetron Hcl 4 Mg/2 Ml Vial) 4 mg IVPUSH Q8H PRN PRN Reason: Nausea and Vomiting Oxycodone HCl (Oxycodone Hcl Immed Release 5 Mg Tablet) 5 mg PO Q6H PRN PRN Reason: Pain, Moderate(Pain Scale 4-6) Last Admin: 09/10/24 06:06 Dose: 5 mg Documented By: BRANT Comments: per pt request Pantoprazole Sodium (Pantoprazole Sodium 20 Mg Tablet.) 40 mg PO DAILY@629 [facility] Last Admin: 09/10/24 06:06 Dose: 40 mg Documented By: BRANT Prazosin HCl (Prazosin Hcl 5 Mg Capsule) 5 mg PO BEDTIME [facility]; Protocol Last Admin: 09/09/24 21:33 Dose: 5 mg Documented By: BRANT Sodium Chloride (0.9 % Sodium Chloride Flush 3 Ml Syringe) 3 ml IVFLUSH QSHIFT [facility] Last Admin: 09/10/24 00:07 Dose: Not Given Documented By: BRANT Non-Admin Reason: IV Running Trazodone HCl (Trazodone Hcl 50 Mg Tablet) 150 mg PO BEDTIME [facility] Last Admin: 09/09/24 21:32 Dose: 150 mg Documented By: BRANT Labs 09/10/24 05:31 09/10/24 05:31 Labs: Laboratory Results - last 24 hr 09/10/24 05:31 MCV 91.1 MCH 30.3 MCHC 33.2 RDW 13.6 Plt Count 217 MPV 9.5 Immature Gran % (Auto) 0.5 H Neut % (Auto) 47.8 Lymph % (Auto) 37.4 [place] % (Auto) 9.2 Eos % (Auto) 4.5 H Baso % (Auto) 0.6 Lymph # (Auto) 2.5 [place] # (Auto) 0.6 Eos # (Auto) 0.3 Baso # (Auto) 0.0 Abs Immat Gran (auto) 0.03 Absolute Neuts (auto) 3.2 Absolute Nucleated RBC 0.000 Nucleated RBC % (auto) 0.0 Anion Gap 11 L Estim Creat Clear Calc 108.1 Estimated GFR > 60 Random Glucose 108 Calcium 8.9 Magnesium 1.5 L Total Bilirubin 0.7 AST 79 H ALT 30 Alkaline Phosphatase 103 Total Protein 5.0 L Albumin 2.8 L Assessment and Plan (1) Intractable nausea and vomiting: Status: Acute (2) Esophagitis: Status: Acute (3) Alcohol abuse: Status: Inactive Plan 44-year-old female with a PMH significant for chronic pancreatitis,?GERD, alcohol use disorder, and anxiety who presented to the ED with?N/V/abdominal pain times 3 days. Pt admitted to the hospital under observation for treatment and further evaluation of intractable nausea, vomiting, and abdominal pain in the setting of acute on chronic pancreatitis. SI Sitter care team consultation today Intractable nausea, vomiting, abdominal pain improving CT showing esophagitis and chronic pancreatitis, otherwise no acute abnormalities maintenance fluids Pain management, antiemetics, Protonix IV> oral Regular diet Acute lactic acidosis Secondary to hypovolemia from intractable N/V, not sepsis, improved Leukocytosis resolved No indication of active infection that would necessitate antibiotics at this time Alcohol use disorder Pt reports used to drink heavily Ed with hx of alcohol withdrawal Reports he has cut back drastically, currently drinking 1 large Twisted Tea and a couple of nips daily after work Monitor on CIWA Depression/Anxiety Continue omeprazole, bupropion, lamotrigine, prazosin, lorazepam Full Code DVT Prophylaxis: Lovenox Quality Stroke Does the patient have a stroke diagnosis?: No VTE Prior VTE?: No VTE Risk Level:: Medical - moderate - high VTE Device Contraindication: Treatment Not Indicated VTE Drug Contraindication: N/A - Med Ordered
[2024-09-10] MEDS: Magnesium Sulfate/H2O 2 GM/50 ML PIGGYBACK IV (08:18)
[2024-09-10] MEDS: Folic Acid 1 MG TABLET PO (08:18)
[2024-09-10] MEDS: buPROPion HCl XL 300 MG TAB.ER.24H PO (08:18)
[2024-09-10] MEDS: Gabapentin 600 MG TABLET PO ×3 (08:18→22:09)
[2024-09-10] MEDS: Multivitamin TABLET 1 TAB PO (08:18)
[2024-09-10] MEDS: 0.9 % Sodium Chloride Flush 3 ML SYRINGE IVFLUSH ×2 (08:19→15:18)
[2024-09-10] MEDS: Lipase/Prot/Amylase 12/38/60K CAPSULE.DR 3 CAP PO ×2 (10:16→15:18)
[2024-09-10] MEDS: LORazepam 1 MG TABLET PO ×2 (10:22→22:10)
[2024-09-10 15:34] VITALS: BP 101/58; PULSE 95; RESP 16; TEMP 36.8; O2SAT 94
[2024-09-10 19:46] VITALS: BP 121/72; PULSE 102; RESP 18; TEMP 36.8; O2SAT 95
[2024-09-10] MEDS: Doxepin HCl 25 MG CAPSULE 50 MG PO (22:08)
[2024-09-10] MEDS: traZODone HCL 50 MG TABLET 150 MG PO (22:09)
[2024-09-10] MEDS: lamoTRIgine 25 MG TABLET 75 MG PO (22:09)
[2024-09-10] MEDS: Prazosin HCL 5 MG CAPSULE PO (22:09)
[2024-09-10] MEDS: Calcium Carbonate 750 MG TAB.CHEW PO (22:18)
[2024-09-11 03:31] VITALS: BP 102/59; PULSE 107; RESP 20; TEMP 36.8; O2SAT 94
[2024-09-11] MEDS: HYDROmorphone HCl 1 MG/ML SYRINGE 0.5 MG IVPUSH ×2 (03:40→08:17)
[2024-09-11] MEDS: Pantoprazole Sodium 20 MG TABLET.DR 40 MG PO (06:01)
[2024-09-11] MEDS: oxyCODONE HCl Immed Release 5 MG TABLET PO (06:01)
--- NOTE | 2024-09-11 07:05 | PM.DS ---
DS: Providers Provider Date of Service: 09/11/24 Date of admission: 09/08/24 22:33 Date of discharge: 09/11/24 Primary care physician: Unknown Physician Consults: 09/08/24 23:07 Inpt CARE Team Crisis Consult Routine Comment: Reason for consultation: SI 09/08/24 23:13 Addiction Medicine Provider Routine Consulting Provider: Addiction Covering Reason for consultation: cocaine use disorder 09/10/24 08:10 Inpt CARE Team Crisis Consult Routine Comment: Reason for consultation: medically clear DS: Diagnosis Discharge Diagnosis (1) Intractable nausea and vomiting: Status: Acute (2) Esophagitis: Status: Acute (3) Alcohol abuse: Status: Inactive DS: Summary Hospital Course Hospital Course: History and physical as per admitting provider. Patient is a 44-year-old female with a past medical history significant for chronic pancreatitis, hx etoh abuse, cocaine use, GERD, anxiety and depression, who presented to the ED today with left upper quadrant pain x2 days radiating to the midback with SI secondary to her chronic pancreatitis with plan to overdose on lorazepam. She rates his pain at 10/10 worse with lying back, currently 5/10 after receiving pain Dilaudid. She also has severe nausea and vomiting without any hematemesis or coffee-ground emesis. She has been able to tolerate clear liquids for the most part but does have abdominal pain with them. She has not had anything solid in the past few days. She has a longstanding history of chronic alcohol abuse and reports that she had 1 twisted tea the past 2 nights which caused her to have severe abdominal pain. She also complains of a chronic dry cough, worse at night, related to her allergies. She has been using cough medication and albuterol as needed. She denies any sputum production, fever or chills. 44-year-old woman treated for intractable nausea and vomiting secondary to acute on chronic pancreatitis. CT showing esophagitis and chronic pancreatitis. She was treated with maintenance fluids, pain medication and antiemetics along with IV Protonix which was switched to oral PPI. She tolerated a regular diet. Acute lactic acidosis. Secondary to hypovolemia from intractable nausea and vomiting Leukocytosis. No indication of active infection necessitating antibiotics, resolved Alcohol use disorder. Patient reports that she used to drink heavier and has currently cut back significantly. Discussed the importance of alcohol cessation. Depression/anxiety. Continue bupropion, lamotrigine, prazosin and lorazepam. Time Attestation Discharge Coordination Time (in mins): 40 Quality: Safe Use of Opioids Does Pt have an Active Cancer Diagnosis on the Problem List?: No Quality: Stroke Does the patient have a stroke diagnosis?: No Physical Exam Vital Signs: Vital Signs: Last Vital Signs Temp 98.2 F 09/11/24 03:31 Pulse 107 H 09/11/24 03:31 Resp 20 09/11/24 03:31 BP 102/59 L 09/11/24 03:31 Pulse Ox 94 09/11/24 03:31 O2 Del Method Room Air 09/10/24 19:46 BMI result Body Mass Index 28.5 Appearing in no acute distress head is normocephalic atraumatic eyes pupils are PERRLA sclera is anicteric mouth throat mucous membranes are intact and moist neck is supple no lymphadenopathy, no JVD noted lung sounds are clear to auscultation heart regular rate rhythm, clear S1, S2 positive bowel sounds, abdomen is soft, nontender neuro patient is alert x3, no focal deficits DS: Data Data Completed and Pending Completed studies during hospitalization [Text1]: Procedures Detoxification Services for Substance Abuse Treatment (09/07/23) Discharge Plan Discharge Anticipated Discharge Date/Time: 09/11/24 07:01 Patient Disposition: Home, Self-Care Discharge Diagnosis: Acute on chronic pancreatitis Nausea and vomiting Discharge Medications: New oxycodone 5 mg tablet 5 mg PO Q8H PRN (Reason: pain) Qty: 15 0RF Rx Instructions: Partial Fill upon patient request. ondansetron 4 mg tablet,disintegrating 4 mg PO Q8H PRN (Reason: nausea and vomiting) Qty: 15 0RF Continued prazosin 5 mg Capsule 5 mg PO BEDTIME 30 Days Qty: 30 0RF doxepin 50 mg capsule 50 mg PO BEDTIME gabapentin 600 mg tablet 600 mg PO TID aripiprazole 10 mg tablet 10 mg PO BEDTIME lorazepam 1 mg tablet 1 mg PO TID PRN (Reason: Anxiety) pantoprazole 40 mg Tablet,Delayed Release (Dr/Ec) 40 mg PO DAILY@0630 multivitamin Tablet 1 tab PO DAILY trazodone 150 mg tablet 150 mg PO BEDTIME Creon 36,000-114,000- 180,000 unit capsule,delayed release(DR/EC) 1 cap PO TID lamotrigine 25 mg tablet 75 mg PO BEDTIME folic acid 1 mg tablet 1 mg PO DAILY bupropion HCl 300 mg tablet extended release 24 hr 300 mg PO DAILY ZzzQuil 50 mg/30 mL Liquid 50 mg PO BEDTIME PRN (Reason: Sleep) Discharge Orders: Discharge Order (Routine); Ordered 09/11/24 Ordered By: Cassidy Vyas Diet: Advance to usual diet Activity on Discharge: As tolerated Stand Alone Forms: Patient Portal Discharge page Print Language: Choose Not To Answer Care Plan Goals: Follow a bland diet for the next few days Drink plenty of fluids Avoid using alcohol products Health Concerns: Acute on chronic pancreatitis Nausea and vomiting Plan of Treatment: Follow up with primary care provider as needed Take all medications as prescribed Assessment: See discharge summary
[2024-09-11 07:16] LABS: MANUAL DIFF FLAG NO
[2024-09-11 07:28] LABS: Basophils Percent Auto 0.5 % (0-2); Eosinophils Absolute Auto 0.3 X10*3/uL (0.0-0.4); Hematocrit 32.7 % (37.0-47.0); Hemoglobin 10.5 g/dl (12.0-16.0); Imm Gran Abs Auto 0.03 X10*3/uL (0.00-0.03); Imm Gran Pct Auto 0.4 % (0.0-0.4); Lymphocytes Absolute Auto 2.6 X10*3/uL (1.2-4.9); Lymphocytes Percent Auto 34.1 % (20-40); Mean Corpuscular HGB Conc 32.1 g/dl (31.0-35.0); Mean Corpuscular Hemoglobin 30.3 pg (27.0-33.0); Mean Corpuscular Volume 94.5 fL (80.0-98.0); Monocytes Absolute Auto 0.7 X10*3/uL (0.1-1.2); Monocytes Percent Auto 9.2 % (2-11); Neutrophils Absolute Auto 3.9 x10*3/uL (2.0-8.3); Neutrophils Percent Auto 51.8 % (45-73); Platelet Count 239 X10*3/uL (160-400); Red Blood Count 3.46 X10*6/uL (4.20-5.50); Red Cell Distribution Width 13.9 % (11.0-16.0); White Blood Count 7.5 X10*3/uL (4.8-10.8)
[2024-09-11 07:35] LABS: Alanine Aminotransferase 30 U/L (0-31); Albumin Level 2.9 g/dL (3.5-5.0); Alkaline Phosphatase 102 U/L (39-117); Anion Gap 15 (12-20); Aspartate Amino Transferase 67 U/L (5-31); Bilirubin Total 0.8 mg/dL (0.0-1.0); Blood Urea Nitrogen 3 mg/dL (9-16); Calcium 8.3 mg/dL (8.4-10.2); Carbon Dioxide 26 mmol/L (22-29); Chloride 104 mmol/L (96-108); Estimated Glomerular Filt Rate > 60; Glucose Random 115 mg/dL (60-115); Magnesium 1.7 mg/dL (1.6-2.6); Potassium 3.9 mmol/L (3.3-5.1); Sodium 141 mmol/L (135-145); Total Protein 5.2 g/dL (6.5-8.0)
[2024-09-11 07:50] VITALS: BP 97/63; PULSE 114; RESP 16; TEMP 36.7; O2SAT 93
[2024-09-11 08:17] VITALS: RESP 16
[2024-09-11] MEDS: 0.9 % Sodium Chloride Flush 3 ML SYRINGE IVFLUSH (08:17)
[2024-09-11] MEDS: Lipase/Prot/Amylase 12/38/60K CAPSULE.DR 3 CAP PO (08:19)
[2024-09-11] MEDS: Gabapentin 600 MG TABLET PO (08:20)
[2024-09-11] MEDS: Multivitamin TABLET 1 TAB PO (08:20)
[2024-09-11] MEDS: buPROPion HCl XL 300 MG TAB.ER.24H PO (08:20)
[2024-09-11] MEDS: Folic Acid 1 MG TABLET PO (08:20)
[2024-09-11 09:27] VITALS: BP 99/60; PULSE 110; RESP 16; TEMP 36.5; O2SAT 93
== END 2024-09-11 09:31 | disposition home or self-care (01) | DRG 282 ==
LOC: HO.ED 15:41 → HO.EDOVER 22:41 → HO.S3 09-09 07:42
PROVIDERS: Nurse Practitioner Family; Physician Assistant; Admitting Provider Physician Assistant; Emergency Provider Emergency Medicine; Visit Provider Nurse Practitioner Acute Care
DX: K85.90 Acute pancreatitis without necrosis or infection, unspecified (principal); E87.21 Acute metabolic acidosis; R45.851 Suicidal ideations; K86.1 Other chronic pancreatitis; F17.210 Nicotine dependence, cigarettes, uncomplicated; Z71.6 Tobacco abuse counseling; F32.A Depression, unspecified; F41.9 Anxiety disorder, unspecified; K20.90 Esophagitis, unspecified without bleeding; F14.90 Cocaine use, unspecified, uncomplicated; Y90.6 Blood alcohol level of 120-199 mg/100 ml; E87.6 Hypokalemia; K21.9 Gastro-esophageal reflux disease without esophagitis; J44.9 Chronic obstructive pulmonary disease, unspecified; E86.1 Hypovolemia; F10.10 Alcohol abuse, uncomplicated; Z79.899 Other long term (current) drug therapy
CPT/HCPCS: 36415; 74177; 80048; 80053; 80076; 80143; 80179; 80307; 81001; 81003; 83690; 83735; 84484; 84702; 85025; 93005; 94640; 99285; J1171; J1885; J3360; J3475; J7120; Q9967; S9485

== ENCOUNTER → 2024-09-08 15:10 | Outpatient (BNV) | payer OTHER, SELFPAY | PROVIDERS: Admitting Provider Physician Assistant; Emergency Provider Emergency Medicine; Visit Provider Internal Medicine | DX: R00.0 Tachycardia, unspecified (principal) | CPT/HCPCS: 93010 ==

== ENCOUNTER → 2024-09-08 22:06 | Outpatient (BNV) | payer OTHER, SELFPAY | PROVIDERS: Admitting Provider Physician Assistant; Emergency Provider Emergency Medicine; Visit Provider Radiology Diagnostic Radiology | DX: K86.89 Other specified diseases of pancreas (principal); K76.0 Fatty (change of) liver, not elsewhere classified; R16.0 Hepatomegaly, not elsewhere classified | CPT/HCPCS: 74177 ==

== ENCOUNTER → 2024-09-08 22:33 | Outpatient (BNV) | payer OTHER, SELFPAY | PROVIDERS: Admitting Provider Physician Assistant; Emergency Provider Emergency Medicine; Visit Provider Physician Assistant | DX: R11.2 Nausea with vomiting, unspecified (principal); K20.90 Esophagitis, unspecified without bleeding; F10.10 Alcohol abuse, uncomplicated | CPT/HCPCS: 99223; 99232; 99239 ==

== ENCOUNTER 2024-09-30 09:35 | Observation (INO) | payer OTHER, SELFPAY ==
[2024-09-30] VITALS (12 sets, daily range): BP systolic 120–168; BP diastolic 75–98; PULSE 88–116; RESP 13–20; TEMP 36.4–37.1; O2SAT 92–97; BMI 33.8; BMI 31.4
--- NOTE | ~2024-09-30 | CT_ITS ---
CLINICAL HISTORY: Severe abdominal pain, History of alcoholic pancre CT abdomen and pelvis with contrast Comparison: CT/SR - CT ABDOMEN PELVIS W IV CON - 09/08/24 23:[address] - CT ABDOMEN PELVIS W IV CON - 09/08/24 23:[address]/SR - CT ABDOMEN PELVIS W IV CON - 08/23/24 04:[address] - CT ABDOMEN PELVIS W IV CON - 08/23/24 04:18 EDT Findings: No consolidation at the lung bases. Unremarkable gallbladder and bladder. Hepatomegaly with hepatic steatosis. Pancreatic parenchymal atrophy with calcifications and ductal dilatation, unchanged indicating chronic pancreatitis. No peripancreatic stranding or fluid collection. The other solid organs are unremarkable. Small hiatal hernia. Wall thickening versus underdistention of the distal esophagus, similar to the prior studies and which may indicate esophagitis. No bowel wall thickening or dilation. The appendix is not definitively visualized. No secondary signs of acute appendicitis. No aneurysm. No calcified atherosclerotic disease. No lymphadenopathy. No ascites. No acute osseous abnormality. Impression: Esophagitis could be considered. No CT evidence of acute pancreatitis. Sequela of chronic pancreatitis. This document has been electronically signed by: Veronica Rasmussen MD on 09/30/2024 13:25:42
--- NOTE | 2024-09-30 09:59 | ED_ITS ---
HPI - Abdominal Pain General Chief Complaint: Abdominal Pain Stated Complaint: PAIN AND ALCOHOL USE Time Seen by Provider: 09/30/24 09:52 Source: patient and EMS Mode of arrival: EMS Limitations: no limitations History of Present Illness ED Provider: DR. Casarez HPI narrative: 44-year-old female with history of ETOH use disorder, chronic pancreatitis, GERD, chronic left-sided abdominal pain x3 days, brought in by EMS for evaluation of left-sided abdominal pain after drinking alcohol at the [employer] on [place]. Pain is associated with nausea and vomiting, no fever, no chills. Patient admitted to drinking alcohol last night. Patient stated that her symptoms is chronic for the past 14 years on and off usually get controlled with Dilaudid in the emergency department. Related Data Home Medications ?Medication ?Instructions ?Recorded ?Confirmed aripiprazole 10 mg tablet 10 mg PO BEDTIME 05/21/21 09/09/24 doxepin 50 mg capsule 50 mg PO BEDTIME 05/21/21 09/09/24 gabapentin 600 mg tablet 600 mg PO TID 05/21/21 09/09/24 lorazepam 1 mg tablet 1 mg PO TID PRN Anxiety 05/21/21 09/09/24 pantoprazole 40 mg tablet,delayed 40 mg PO DAILY@0630 05/21/21 09/09/24 release bupropion HCl 300 mg 24 hr tablet, 300 mg PO DAILY 09/07/23 09/09/24 extended release folic acid 1 mg tablet 1 mg PO DAILY 09/07/23 09/09/24 lamotrigine 25 mg tablet 75 mg PO BEDTIME 09/07/23 09/09/24 twrijy-[id number]-[id number] 1 cap PO TID 08/23/24 09/09/24 36,000-114,000-180,000 unit capsule,delay rel (Creon) multivitamin 1 tab PO DAILY 08/23/24 09/09/24 trazodone 150 mg tablet 150 mg PO BEDTIME 08/23/24 09/09/24 diphenhydramine HCl 50 mg/30 mL 50 mg PO BEDTIME PRN Sleep 09/09/24 09/09/24 oral liquid (ZzzQuil) Previous Rx's ?Medication ?Instructions ?Recorded prazosin 5 mg capsule 5 mg PO BEDTIME 30 days #30 caps 02/18/20 ondansetron 4 mg disintegrating 4 mg PO Q8H PRN nausea and 09/11/24 tablet vomiting #15 tabs oxycodone 5 mg tablet 5 mg PO Q8H PRN pain #15 tabs 09/11/24 omeprazole 40 mg capsule,delayed 40 mg PO DAILY #30 caps 09/30/24 release oxycodone 5 mg tablet 5 mg PO Q8H PRN pain #10 tabs 09/30/24 Allergies Allergy/AdvReac Type Severity Reaction Status Date / Time acetaminophen [From Tylenol] AdvReac Stomach Verified 09/30/24 09:46 Upset ibuprofen AdvReac Stomach Verified 09/30/24 09:46 Upset morphine AdvReac Gastrointestinal Verified 09/30/24 09:46 Upset bees Allergy Severe Anaphylaxis Uncoded 08/23/24 02:54 Review of Systems Review of Systems All other systems are reviewed and are negative Constitutional: Reports as per HPI and Reports no additional constitutional complaints Eyes: Reports as per HPI and Reports no additional eye complaints Reports system reviewed and no additional complaints, except as documented Cardiovascular: Reports as per HPI and Reports no additional cardiovascular complaints Respiratory: Reports as per HPI and Reports no additional respiratory complaints Gastrointestinal: Reports as per HPI and Reports no additional gastrointestinal complaints Genitourinary: Reports no additional female genitourinary complaints Musculoskeletal: Reports no additional musculoskeletal complaints Skin/Breast: Reports system reviewed and no additional complaints, except as docu Psychiatric: Reports no additional psychiatric complaints Endocrine: Reports no additional endocrine complaints Hematologic/Lymphatic: Reports no additional hematologic/lymphatic complaints Allergic/Immunologic: Reports no additional allergic/immunologic complaints Reports system reviewed and no additional complaints, except as documented and Reports Abnormal speech present [facility] Past Medical History Medical History Chronic cough Chronic pancreatitis Cocaine use Alcohol abuse Obesity (BMI 30.0-34.9) Pancreatitis Back pain Alcohol use disorder, severe, dependence Gastritis Gastritis Endometriosis Constipation Anxiety Depression Bipolar disorder Suicidal behavior PTSD (post-traumatic stress disorder) Surgical History History of ankle surgery Social History Social History Household Members: Spouse Housing: House Do you presently have visiting nurse or other home services: No Alcohol intake: current Alcohol intake frequency: a few times a week Alcohol type: beer and hard liquor Comment: pt reports no effects as of yet Patient Tobacco Use Status: Current someday Tobacco user Tobacco use type: Cigarette e-Cigarette/Vaping Use: Currently Using Second Hand Smoke Exposure: No Substance Use Type: Crack/Cocaine Advance Directives: Yes Advance Directives on File: Yes Advance Directives Date on File: 09/07/23 Do you have a plan to hurt others: No Plan service: No Sexual orientation: Straight/Heterosexual Physical Exam ED Vital Signs: Vital Signs - 24 hr 09/30/24 09:42 09/30/24 11:10 09/30/24 12:49 Temperature 98.1 F 98.7 F 98.8 F Pulse Rate 103 H 106 H 109 H Respiratory Rate 16 18 16 Blood Pressure 122/75 132/96 H 120/82 Pulse Oximetry 96 95 96 Oxygen Delivery Method Room Air Room Air Room Air BMI result Body Mass Index 33.8 Vital signs have been reviewed and appear to be correct. Blood pressure elevated. Heart rate normal. Respiratory rate normal. Temperature normal. Oxygen saturation normal. Appearance: Alert. Oriented X3. No acute distress. Head: Normal external exam. Normocephalic. Atraumatic. No [place] signs noted. No raccoon eyes noted Eyes: PERRLA. EOMI. Conjunctiva and sclera normal. Eyelids normal. ENT: TM's Normal. Pharynx normal. Uvula midline. Moist mucous membranes. No trismus noted. No drooling noted. No muffled voice noted. Neck: Normal inspection. Neck supple. FROM. No adenopathy. Thyroid Normal. No meningeal signs. No neck mass noted. CVS: Normal heart rate and rhythm. Heart sound normal. No murmurs noted. Pulses normal throughout. Respiratory: No respiratory distress. Painless inspiration. Breath sounds normal. No wheezes/rales/rhonchi noted. Chest nontender. No accessory muscle usage noted or decreased air movement noted. Abdomen: Soft and nontender. Bowel sounds normal in all 4 quadrants. No distention noted. No organomegaly noted. No visible injury noted. Back: No CVA tenderness. Full range of motion noted. Skin: Skin warm and dry. Normal skin color. Normal skin turgor. No rashes/lesions/lacerations noted. Extremities: No lower extremity edema. Extremities exhibit normal range of motion. Extremities nontender. Neuro: Oriented X 3. Cranial nerve exam: II-XII are grossly intact No motor deficit. No sensory deficit. Reflexes normal. Course Reevaluation(s) Reevaluation #1: Patient feels slightly better now, able to tolerate p.o. intake. CT abdomen pelvis is consistent with esophagitis likely alcohol related, Otherwise stable intra-abdominal structure. Abdominal pain secondary to alcoholic esophagitis, patient preferred to go home with pain medication, instructed to avoid drinking alcohol. Time: 14:30 Reevaluation #2: Patient could not keep oral intake with persistent vomiting and persistent pain, patient now does not want to go home, case discussed with the hospitalist admit the patient for intractable abdominal pain and vomiting. Time: 15:28 Medical Decision Making Differential Diagnosis Differential Diagnoses: The differential diagnosis associated with the presentation includes (Acute gastritis, acute esophagitis, electrolyte derangement, severe anemia, complicated chronic pancreatitis.) Admission/Observation Consideration of admission/observation: Escalation of care including admission/observation considered Lab Data MDM Lab Attestation statement: I reviewed the patient's lab results. 09/30/24 10:19 09/30/24 10:50 Labs: Lab Results 09/30/24 09/30/24 09/30/24 Range/Units 10:19 10:50 10:50 WBC 11.6 H (4.8-10.8) X10*3/uL RBC 4.45 D (4.20-5.50) X10*6/uL Hgb 13.5 D (12.0-16.0) g/dl Hct 40.5 D (37.0-47.0) % MCV 91.0 (80.0-98.0) fL MCH 30.3 (27.0-33.0) pg MCHC 33.3 (31.0-35.0) g/dl RDW 14.1 (11.0-16.0) % Plt Count 348 D (160-400) X10*3/uL MPV 9.9 (9.4-12.3) fL Immature Gran % (Auto) 0.4 (0.0-0.4) % Neut % (Auto) 64.9 (45-73) % Lymph % (Auto) 23.6 (20-40) % [place] % (Auto) 9.9 (2-11) % Eos % (Auto) 0.5 (0-4) % Baso % (Auto) 0.7 (0-2) % Lymph # (Auto) 2.7 (1.2-4.9) X10*3/uL [place] # (Auto) 1.2 (0.1-1.2) X10*3/uL Eos # (Auto) 0.1 (0.0-0.4) X10*3/uL Baso # (Auto) 0.1 (0.0-0.2) X10*3/uL Abs Immat Gran (auto) 0.05 H (0.00-0.03) X10*3/uL Absolute Neuts (auto) 7.6 (2.0-8.3) x10*3/uL Absolute Nucleated RBC 0.000 (0.0-0.012) X10*3/uL Nucleated RBC % (auto) 0.0 (0.0-0.2) /100WBC Smear Tech's Comments VERIFIED Sodium 139 (135-145) mmol/L Potassium 3.7 (3.3-5.1) mmol/L Chloride 98 (96-108) mmol/L Carbon Dioxide 24 (22-29) mmol/L Anion Gap 21 H (12-20) BUN 3 L (9-16) mg/dL Creatinine 0.65 (0.5-1.4) mg/dL Estim Creat Clear Calc 116.9 Estimated GFR > 60 Random Glucose 126 H (60-115) mg/dL Calcium 8.9 D (8.4-10.2) mg/dL Magnesium 2.0 (1.6-2.6) mg/dL Total Bilirubin 0.9 (0.0-1.0) mg/dL AST 166 H (5-31) U/L ALT 58 H (0-31) U/L Alkaline Phosphatase 168 H (39-117) U/L Total Protein 7.3 (6.5-8.0) g/dL Albumin 3.9 (3.5-5.0) g/dL Lipase 7 L (8-78) U/L Beta HCG, Quant 4 mIU/mL Ethyl Alcohol 125 Cancelled mg/dL Independent Interpretation I performed an independent interpretation of an: CT Scan (Abdomen pelvis:Esophagitis could be considered. No CT evidence of acute pancreatitis. Sequela of chronic pancreatitis.) Radiology Impression Discussion of test interpretation with radiology: I have reviewed the radiologist's reading. Medications Administered Discontinued Medications Generic Name Dose Route Start Last Admin Trade Name Freq PRN Reason Stop Dose Admin Al Hydroxide/Mg Hydroxide 30 ml 09/30/24 13:56 09/30/24 14:05 Magnesium Hydrox/Alum Hydrox 30 Ml Oral.Susp PO 09/30/24 13:57 30 ml ONCE ONE Administration Diphenhydramine HCl 25 mg 09/30/24 11:00 09/30/24 11:05 Diphenhydramine Hcl 50 Mg/Ml Vial IVPUSH 09/30/24 11:01 25 mg ONCE ONE Administration Hydromorphone HCl 1 mg 09/30/24 09:53 09/30/24 10:51 Hydromorphone Hcl 1 Mg/Ml Syringe IVPUSH 09/30/24 09:54 1 mg ONCE ONE Administration Protocol Hydromorphone HCl 1 mg 09/30/24 12:04 09/30/24 12:11 Hydromorphone Hcl 1 Mg/Ml Syringe IVPUSH 09/30/24 12:05 1 mg ONCE ONE Administration Protocol Hydromorphone HCl 1 mg 09/30/24 14:10 09/30/24 14:14 Hydromorphone Hcl 1 Mg/Ml Syringe IVPUSH 09/30/24 14:11 1 mg ONCE ONE Administration Protocol Metoclopramide HCl 10 mg 09/30/24 10:55 09/30/24 11:05 Metoclopramide Hcl 10 Mg/2 Ml Vial IVPUSH 09/30/24 10:56 10 mg ONCE ONE Administration Pantoprazole Sodium 40 mg 09/30/24 13:56 09/30/24 14:05 Pantoprazole Sodium 40 Mg/10 Ml Vial IVPUSH 09/30/24 13:57 40 mg ONCE ONE Administration Discharge Plan Discharge Patient Disposition: Admitted As Inpatient Instructions: Gastritis (ED), Pancreatitis (ED) Prescriptions: New omeprazole 40 mg capsule,delayed release(DR/EC) 40 mg PO DAILY Qty: 30 0RF oxycodone 5 mg tablet 5 mg PO Q8H PRN (Reason: pain) Qty: 10 0RF Rx Instructions: Partial Fill upon patient request. No Action prazosin 5 mg Capsule 5 mg PO BEDTIME 30 Days Qty: 30 0RF doxepin 50 mg capsule 50 mg PO BEDTIME gabapentin 600 mg tablet 600 mg PO TID aripiprazole 10 mg tablet 10 mg PO BEDTIME lorazepam 1 mg tablet 1 mg PO TID PRN (Reason: Anxiety) pantoprazole 40 mg Tablet,Delayed Release (Dr/Ec) 40 mg PO DAILY@0630 multivitamin Tablet 1 tab PO DAILY trazodone 150 mg tablet 150 mg PO BEDTIME Creon 36,000-114,000- 180,000 unit capsule,delayed release(DR/EC) 1 cap PO TID lamotrigine 25 mg tablet 75 mg PO BEDTIME folic acid 1 mg tablet 1 mg PO DAILY bupropion HCl 300 mg tablet extended release 24 hr 300 mg PO DAILY ZzzQuil 50 mg/30 mL Liquid 50 mg PO BEDTIME PRN (Reason: Sleep) oxycodone 5 mg tablet 5 mg PO Q8H PRN (Reason: pain) Qty: 15 0RF Rx Instructions: Partial Fill upon patient request. ondansetron 4 mg tablet,disintegrating 4 mg PO Q8H PRN (Reason: nausea and vomiting) Qty: 15 0RF Referrals: Anai Lane [employer] SO[employer] SERVICER [Primary Care Provider] - Print Language: Choose Not To Answer
[2024-09-30 10:28] LABS: Basophils Absolute Auto 0.1 X10*3/uL (0.0-0.2); Basophils Percent Auto 0.7 % (0-2); Eosinophils Absolute Auto 0.1 X10*3/uL (0.0-0.4); Eosinophils Percent Auto 0.5 % (0-4); Hematocrit 40.5 % (37.0-47.0); Imm Gran Abs Auto 0.05 X10*3/uL (0.00-0.03); Imm Gran Pct Auto 0.4 % (0.0-0.4); Lymphocytes Absolute Auto 2.7 X10*3/uL (1.2-4.9); Lymphocytes Percent Auto 23.6 % (20-40); MANUAL DIFF FLAG SCAN; Mean Corpuscular HGB Conc 33.3 g/dl (31.0-35.0); Mean Corpuscular Hemoglobin 30.3 pg (27.0-33.0); Monocytes Absolute Auto 1.2 X10*3/uL (0.1-1.2); Monocytes Percent Auto 9.9 % (2-11); Neutrophils Absolute Auto 7.6 x10*3/uL (2.0-8.3); Neutrophils Percent Auto 64.9 % (45-73); PLT CLUMP 1; Red Blood Count 4.45 X10*6/uL (4.20-5.50); Red Cell Distribution Width 14.1 % (11.0-16.0); SCAN SMEAR FLAG 1
[2024-09-30 10:30] LABS: Hemoglobin 13.5 g/dl (12.0-16.0)
[2024-09-30 10:44] LABS: Mean Platelet Volume 9.9 fL (9.4-12.3); Platelet Count 348 X10*3/uL (160-400); White Blood Count 11.6 X10*3/uL (4.8-10.8)
[2024-09-30 10:45] LABS: SLIDE REVIEW VERIFIED
[2024-09-30] MEDS: HYDROmorphone HCl 1 MG/ML SYRINGE IVPUSH ×5 (10:51→22:58)
[2024-09-30] MEDS: Metoclopramide HCl 10 MG/2 ML VIAL IVPUSH ×3 (11:05→22:26)
[2024-09-30] MEDS: diphenhydrAMINE HCL 50 MG/ML VIAL 25 MG IVPUSH (11:05)
[2024-09-30 11:14] LABS: Alanine Aminotransferase 58 U/L (0-31); Albumin Level 3.9 g/dL (3.5-5.0); Alkaline Phosphatase 168 U/L (39-117); Anion Gap 21 (12-20); Aspartate Amino Transferase 166 U/L (5-31); Bilirubin Total 0.9 mg/dL (0.0-1.0); Blood Urea Nitrogen 3 mg/dL (9-16); Calcium 8.9 mg/dL (8.4-10.2); Carbon Dioxide 24 mmol/L (22-29); Chloride 98 mmol/L (96-108); Creatinine Clr Calc Pharmacy 116.9; Estimated Glomerular Filt Rate > 60; Ethanol 125 mg/dL; Glucose Random 126 mg/dL (60-115); Lipase 7 U/L (8-78); Potassium 3.7 mmol/L (3.3-5.1); Sodium 139 mmol/L (135-145); Total Protein 7.3 g/dL (6.5-8.0)
[2024-09-30 11:18] LABS: HCG Quantitative 4 mIU/mL
--- NOTE | 2024-09-30 11:24 | PC.NURSE ---
alert and oriented with even and unlabored respirations. reports abdominal pain worsening over past 2-3 days - also endorsing etoh. difficult stick, US guided IV established w/ labs obtained and sent. medicated per the MAR - reports improvement in pain s/p pain medication administration. awaiting dispo, call doherty within reach
--- NOTE | 2024-09-30 12:14 | PC.NURSE ---
awaiting CT scan, medicated per the MAR. resting quietly watching tv in room.
--- NOTE | 2024-09-30 12:49 | PC.NURSE ---
patient reports nausea has improved, pain is also improving. requesting alessandro yazmin and crackers, made aware we are waiting for ct scan results.
[2024-09-30] MEDS: Pantoprazole Sodium 40 MG/10 ML VIAL IVPUSH ×2 (14:05→17:33)
[2024-09-30] MEDS: Magnesium Hydrox/Alum Hydrox 30 ML ORAL.SUSP PO (14:05)
--- NOTE | 2024-09-30 15:27 | PC.NURSE ---
in room to attempt to discharge patient, continues to endorse pain and vomiting at this time. provider made aware, plan for admission
[2024-09-30] MEDS: diazePAM 10 MG/2 ML CARTRIDGE 5 MG IVPUSH ×2 (16:03→21:19)
[2024-09-30 16:14] LABS: Appearance Urine Turbid; Color Urine Dark Yellow; Glucose Urine UA Negative (Negative); Leukocyte Esterase Urine Trace (Negative); Nitrite Urine Negative (Negative); PH 5.5 (5.0-9.0); Specific Gravity - Urine 1.025 (1.005-1.025); UMIC TRIGGER UACC YES; Urine Blood Negative (Negative); Urine Ketones Trace mg/dL (Negative); Urine Protein 30 (1+) mg/dL (Neg-Trace)
[2024-09-30 16:15] LABS: UPreg QC Valid YES; Urine Pregnancy NEGATIVE (NEGATIVE)
[2024-09-30 16:28] LABS: Bacteria Urine 2+ (None Seen); Squamous Epithelial Cell Urine >20 /HPF (0-2); UACC Culture Trigger YES
--- NOTE | 2024-09-30 16:31 | PM.IMHP ---
History of Present Illness Date of Service: 09/30/24 Chief Complaint: n/v 44F PMH chronic pancreatitis, alcohol dependence, cocaine use, mood disorder presented with nausea vomiting for 3 days. Also associated with epigastric abdominal pain. Has been drinking less than usual. Unable to tolerate p.o.. Denies fever, chills, chest pain, shortness of breath. In ED CT abdomen showed no evidence of acute pancreatitis only sequelae of chronic pancreatitis and possible esophagitis. Review of Systems Review of Systems: Yes all other systems are reviewed and are negative [facility] Medical History Chronic cough Chronic pancreatitis Cocaine use Alcohol abuse Obesity (BMI 30.0-34.9) Pancreatitis Back pain Alcohol use disorder, severe, dependence Gastritis Gastritis Endometriosis Constipation Anxiety Depression Bipolar disorder Suicidal behavior PTSD (post-traumatic stress disorder) Surgical History History of ankle surgery Social History Household Members: Spouse Housing: House Do you presently have visiting nurse or other home services: No Alcohol intake: current Alcohol intake frequency: a few times a week Alcohol type: beer and hard liquor Comment: pt reports no effects as of yet Patient Tobacco Use Status: Current someday Tobacco user Tobacco use type: Cigarette e-Cigarette/Vaping Use: Currently Using Second Hand Smoke Exposure: No Substance Use Type: Crack/Cocaine Advance Directives: Yes Advance Directives on File: Yes Advance Directives Date on File: 09/07/23 Do you have a plan to hurt others: No Plan service: No Sexual orientation: Straight/Heterosexual Meds Allergies Allergy/AdvReac Type Severity Reaction Status Date / Time acetaminophen [From Tylenol] AdvReac Stomach Verified 09/30/24 09:46 Upset ibuprofen AdvReac Stomach Verified 09/30/24 09:46 Upset morphine AdvReac Gastrointestinal Verified 09/30/24 09:46 Upset bees Allergy Severe Anaphylaxis Uncoded 08/23/24 02:54 Active Medications: Current Medications Acetaminophen (Acetaminophen 325 Mg Tablet) 650 mg PO Q6H PRN PRN Reason: Pain, Mild 1-3,fever,headache Lipase/Protease/Amylase (Lipase/Prot/Amylase 24/76/120k 1 Cap Capsule.) 1 cap PO TIDWM [facility] Calcium Carbonate (Calcium Carbonate 750 Mg Tab.Chew) 750 mg PO Q4H PRN PRN Reason: Heartburn Enoxaparin Sodium (Enoxaparin Sodium 40 Mg/0.4 Ml Syringe) 40 mg SUBCUT Q24H [facility] Magnesium Hydroxide (Milk Of Magnesia 30 Ml Oral.Susp) 30 ml PO DAILY PRN PRN Reason: Constipation Melatonin (Melatonin 3 Mg Tablet) 6 mg PO BEDTIME PRN PRN Reason: Insomnia Ondansetron HCl (Ondansetron Hcl 4 Mg/2 Ml Vial) 4 mg IVPUSH Q6H PRN PRN Reason: Nausea Oxycodone HCl (Oxycodone Hcl Immed Release 5 Mg Tablet) 5 mg PO Q4H PRN PRN Reason: Pain, Severe (Pain Scale 7-10) Pantoprazole Sodium (Pantoprazole Sodium 40 Mg/10 Ml Vial) 40 mg IVPUSH BID@0630,1630 [facility] Sodium Chloride (0.9 % Sodium Chloride Flush 3 Ml Syringe) 3 ml IVFLUSH QSHIFT [facility] Sucralfate (Sucralfate Oral Suspension 1 Gm/10 Ml Oral.Susp) 1 gm PO QIDACHS [facility] Home Medications ?Medication ?Instructions ?Recorded ?Confirmed ?Last Taken ?Type aripiprazole 10 mg tablet 10 mg PO BEDTIME 05/21/21 09/30/24 09/28/24 History doxepin 50 mg capsule 50 mg PO BEDTIME 05/21/21 09/30/24 09/28/24 History gabapentin 600 mg tablet 600 mg PO TID 05/21/21 09/30/24 09/28/24 History lorazepam 1 mg tablet 1 mg PO TID PRN Anxiety 05/21/21 09/30/24 09/28/24 History pantoprazole 40 mg tablet,delayed 40 mg PO DAILY@0630 05/21/21 09/30/24 09/28/24 History release bupropion HCl 300 mg 24 hr tablet, 300 mg PO DAILY 09/07/23 09/30/24 09/28/24 History extended release folic acid 1 mg tablet 1 mg PO DAILY 09/07/23 09/30/24 09/28/24 History lamotrigine 25 mg tablet 75 mg PO BEDTIME 09/07/23 09/30/24 09/28/24 History vsfgqi-oejsafom-ugrvhlf 1 cap PO TID 08/23/24 09/30/24 09/28/24 History 36,000-114,000-180,000 unit capsule,delay rel (Creon) multivitamin 1 tab PO DAILY 08/23/24 09/30/24 09/28/24 History trazodone 150 mg tablet 150 mg PO BEDTIME 08/23/24 09/30/24 09/28/24 History diphenhydramine HCl 50 mg/30 mL 50 mg PO BEDTIME PRN Sleep 09/09/24 09/30/24 09/28/24 History oral liquid (ZzzQuil) sucralfate 1 gram tablet 1 g PO BID 09/30/24 09/30/24 09/28/24 History Physical Exam Vital Signs and Narrative: Vital Signs: Last Vital Signs Temp 98.8 F 09/30/24 16:04 Pulse 111 H 09/30/24 16:04 Resp 18 09/30/24 16:04 BP 148/98 H 09/30/24 16:04 Pulse Ox 97 09/30/24 16:04 O2 Del Method Room Air 09/30/24 16:04 BMI result Body Mass Index 33.8 General: AO X 3, no acute distress Resp: CTA bilateral, no accessory muscles used CVS: S1,S2,RRR GI: soft, tender, non distended Neuro: motor grossly intact, alert Psych: appropriate affect, appropriate insight Results Labs 09/30/24 10:19 09/30/24 10:50 Labs: Laboratory Results - last 24 hr 09/30/24 09/30/24 09/30/24 10:19 10:50 10:50 MCV 91.0 MCH 30.3 MCHC 33.3 RDW 14.1 Plt Count 348 D MPV 9.9 Immature Gran % (Auto) 0.4 Neut % (Auto) 64.9 Lymph % (Auto) 23.6 [place] % (Auto) 9.9 Eos % (Auto) 0.5 Baso % (Auto) 0.7 Lymph # (Auto) 2.7 [place] # (Auto) 1.2 Eos # (Auto) 0.1 Baso # (Auto) 0.1 Abs Immat Gran (auto) 0.05 H Absolute Neuts (auto) 7.6 Absolute Nucleated RBC 0.000 Nucleated RBC % (auto) 0.0 Smear Tech's Comments VERIFIED Anion Gap 21 H Estim Creat Clear Calc 116.9 Estimated GFR > 60 Random Glucose 126 H Calcium 8.9 D Magnesium 2.0 Total Bilirubin 0.9 AST 166 H ALT 58 H Alkaline Phosphatase 168 H Total Protein 7.3 Albumin 3.9 Lipase 7 L Beta HCG, Quant 4 Urine Color Urine Appearance Urine pH Ur Specific [place] Urine Protein Urine Glucose (UA) Urine Ketones Urine Blood Urine Nitrite Ur Leukocyte Esterase Urine RBC Urine WBC Ur Squamous Epith Cells Urine Bacteria Hyaline Casts Urine Test Ethyl Alcohol 125 Cancelled 09/30/24 16:06 MCV MCH MCHC RDW Plt Count MPV Immature Gran % (Auto) Neut % (Auto) Lymph % (Auto) [place] % (Auto) Eos % (Auto) Baso % (Auto) Lymph # (Auto) [place] # (Auto) Eos # (Auto) Baso # (Auto) Abs Immat Gran (auto) Absolute Neuts (auto) Absolute Nucleated RBC Nucleated RBC % (auto) Smear Tech's Comments Anion Gap Estim Creat Clear Calc Estimated GFR Random Glucose Calcium Magnesium Total Bilirubin AST ALT Alkaline Phosphatase Total Protein Albumin Lipase Beta HCG, Quant Urine Color Dark Yellow Urine Appearance Turbid Urine pH 5.5 Ur Specific [place] 1.025 Urine Protein 30 (1+) H Urine Glucose (UA) Negative Urine Ketones Trace Urine Blood Negative Urine Nitrite Negative Ur Leukocyte Esterase Trace H Urine RBC 3-5 H Urine WBC 6-10 Ur Squamous Epith Cells >20 Urine Bacteria 2+ Hyaline Casts 6-10 Urine Test NEGATIVE Ethyl Alcohol Assessment and Plan (1) Intractable vomiting: Status: Acute Plan 44F PMH chronic pancreatitis, alcohol dependence, cocaine use, mood disorder presented with nausea vomiting for 3 days Intractable nausea and vomiting Acute recurrent alcoholic hepatitis and chronic pancreatitis Continue Creon, Carafate, ppi, IV fluids, antiemetics, clear liquid diet and advanced as tolerated Alcohol dependence Monitor [facility] Mood disorder Continue mood stabilizers and anxiolytics DVT prophylaxis with Lovenox Full Code Quality Stroke Does the patient have a stroke diagnosis?: No VTE Prior VTE?: No VTE Risk Level:: Medical - moderate - high VTE Device Contraindication: Treatment Not Indicated VTE Drug Contraindication: N/A - Med Ordered
--- NOTE | 2024-09-30 16:35 | PHA.MEDREC ---
Pharmacy Consult ? Medication Reconciliation Pharmacy has completed the medication reconciliation. Spoke with patient at bedside, she was able to tell me her medications and matched pharmacy claims.
[2024-09-30] MEDS: Lactated Ringers 1,000 ML 80 ML IVCONT (17:35)
[2024-09-30] MEDS: ondansetron HCL 4 MG/2 ML VIAL IVPUSH (18:36)
[2024-09-30] MEDS: Prazosin HCL 5 MG CAPSULE PO (22:49)
[2024-09-30] MEDS: Gabapentin 600 MG TABLET PO (22:49)
[2024-09-30] MEDS: traZODone HCL 50 MG TABLET 150 MG PO (22:51)
[2024-09-30] MEDS: Sucralfate Oral Suspension 1 GM/10 ML ORAL.SUSP PO (23:01)
[2024-10-01] VITALS (7 sets, daily range): BP systolic 100–114; BP diastolic 55–72; PULSE 102–120; RESP 16–20; TEMP 36.3–37; O2SAT 93–96
--- NOTE | 2024-10-01 | ECG_ITS ---
Test Reason : tachycardia Blood Pressure : */* mmHG Vent. Rate : 117 BPM Atrial Rate : 117 BPM P-R Int : 120 ms QRS Dur : 72 ms QT Int : 344 ms P-R-T Axes : 48 68 54 degrees QTcB Int : [address] & T wave abnormality, consider anterolateral ischemia Abnormal ECG When compared with ECG of 08-Sep-2024 15:18, No significant change was found Referred By: Alvaro Felix Electronically Signed By: KEON NAVA MD
[2024-10-01] MEDS: HYDROmorphone HCl 1 MG/ML SYRINGE IVPUSH ×3 (03:10→13:17)
[2024-10-01] MEDS: ondansetron HCL 4 MG/2 ML VIAL IVPUSH (03:10)
[2024-10-01] MEDS: Pantoprazole Sodium 40 MG/10 ML VIAL IVPUSH (05:38)
[2024-10-01] MEDS: Lactated Ringers 1,000 ML 80 ML IVCONT (05:38)
[2024-10-01] MEDS: diazePAM 10 MG/2 ML CARTRIDGE 5 MG IVPUSH ×2 (05:48→11:43)
[2024-10-01 07:51] LABS: Hematocrit 34.9 % (37.0-47.0); Hemoglobin 11.3 g/dl (12.0-16.0); Mean Corpuscular HGB Conc 32.4 g/dl (31.0-35.0); Mean Corpuscular Hemoglobin 30.4 pg (27.0-33.0); Mean Corpuscular Volume 93.8 fL (80.0-98.0); Mean Platelet Volume 9.9 fL (9.4-12.3); Platelet Count 242 X10*3/uL (160-400); Red Blood Count 3.72 X10*6/uL (4.20-5.50); Red Cell Distribution Width 14.2 % (11.0-16.0); White Blood Count 8.4 X10*3/uL (4.8-10.8)
[2024-10-01] MEDS: Sucralfate Oral Suspension 1 GM/10 ML ORAL.SUSP PO ×2 (07:52→11:42)
[2024-10-01] MEDS: Lipase/Prot/Amylase 24/76/120K 1 CAP CAPSULE.DR PO ×2 (07:52→11:42)
[2024-10-01] MEDS: 0.9 % Sodium Chloride Flush 3 ML SYRINGE IVFLUSH (07:55)
[2024-10-01 08:23] LABS: Alanine Aminotransferase 40 U/L (0-31); Albumin Level 3.3 g/dL (3.5-5.0); Alkaline Phosphatase 128 U/L (39-117); Anion Gap 18 (12-20); Aspartate Amino Transferase 83 U/L (5-31); Bilirubin Direct 0.6 mg/dL (0.0-0.5); Bilirubin Total 1.3 mg/dL (0.0-1.0); Blood Urea Nitrogen 7 mg/dL (9-16); Calcium 8.6 mg/dL (8.4-10.2); Carbon Dioxide 27 mmol/L (22-29); Chloride 96 mmol/L (96-108); Glucose Random 156 mg/dL (60-115); Magnesium 1.7 mg/dL (1.6-2.6); Potassium 3.9 mmol/L (3.3-5.1); Sodium 137 mmol/L (135-145); Total Protein 5.9 g/dL (6.5-8.0)
--- NOTE | 2024-10-01 08:33 | MHC.CM.PN ---
CM met with Patient at bedside and addressed [place] with her, providing Patient with the original and a copy has been placed on the chart. Patient lives in a house with her , who will transport to home at the time of dc. Patient required no services nor DME ROAD BOSS and home self care vs Recovery Team intervention r/t ETOH & Cocaine is the tentative plan. CM has initiated and will follow for dc planning. PCP is Dr. Anai Lane and HCP is Mother/Sharon.
[2024-10-01 09:34] LABS: Creatinine Clr Calc Pharmacy 67.7; Estimated Glomerular Filt Rate 55
[2024-10-01] MEDS: Gabapentin 600 MG TABLET PO (09:42)
[2024-10-01] MEDS: Multivitamin TABLET 1 TAB PO (09:42)
[2024-10-01] MEDS: buPROPion HCl XL 300 MG TAB.ER.24H PO (09:43)
[2024-10-01] MEDS: Folic Acid 1 MG TABLET PO (09:43)
--- NOTE | 2024-10-01 10:16 | HO.PM.IMPN ---
Subjective Subjective Date of Service: 10/01/24 Interval History: improved, not ready for solids Physical Exam Vital Signs: Vital Signs: Last Vital Signs Temp 98.2 F 10/01/24 07:10 Pulse 108 H 10/01/24 07:10 Resp 18 10/01/24 07:10 BP 101/60 10/01/24 07:10 Pulse Ox 93 10/01/24 07:10 O2 Del Method Room Air 10/01/24 07:10 BMI result Body Mass Index 31.4 General: AO X 3, no acute distress Resp: CTA bilateral, no accessory muscles used CVS: S1,S2,RRR GI: soft, non tender, non distended Neuro: motor grossly intact, alert Psych: appropriate affect, appropriate insight Objective Data Active Medications Acetaminophen (Acetaminophen 325 Mg Tablet) 650 mg PO Q6H PRN PRN Reason: Pain, Mild 1-3,fever,headache Lipase/Protease/Amylase (Lipase/Prot/Amylase 24/76/120k 1 Cap Capsule.Dr) 1 cap PO TIDWM [facility] Last Admin: 10/01/24 07:52 Dose: 1 cap Documented By: VICTORIA Aripiprazole (Aripiprazole 10 Mg Tablet) 10 mg PO BEDTIME [facility] Last Admin: 09/30/24 22:54 Dose: Not Given Documented By: JATINDER Non-Admin Reason: Patient declined Bupropion HCl (Bupropion Hcl Xl 300 Mg Tab.Er.24h) 300 mg PO DAILY [facility] Last Admin: 10/01/24 09:43 Dose: 300 mg Documented By: VICTORIA Calcium Carbonate (Calcium Carbonate 750 Mg Tab.Chew) 750 mg PO Q4H PRN PRN Reason: Heartburn Diazepam (Diazepam 10 Mg/2 Ml Cartridge) 5 mg IVPUSH Q4H PRN PRN Reason: Anxiety Last Admin: 10/01/24 05:48 Dose: 5 mg Documented By: JATINDER Comments: requested for anxiety Doxepin HCl (Doxepin Hcl 25 Mg Capsule) 50 mg PO BEDTIME [facility] Last Admin: 09/30/24 22:54 Dose: Not Given Documented By: JATINDER Non-Admin Reason: Patient declined Enoxaparin Sodium (Enoxaparin Sodium 40 Mg/0.4 Ml Syringe) 40 mg SUBCUT Q24H [facility] Last Admin: 10/01/24 09:44 Dose: Not Given Documented By: VICTORIA Non-Admin Reason: Patient Refused Folic Acid (Folic Acid 1 Mg Tablet) 1 mg PO DAILY [facility] Last Admin: 10/01/24 09:43 Dose: 1 mg Documented By: VICTORIA Gabapentin (Gabapentin 600 Mg Tablet) 600 mg PO TID [facility] Last Admin: 10/01/24 09:42 Dose: 600 mg Documented By: VICTORIA Hydromorphone HCl (Hydromorphone Hcl 1 Mg/Ml Syringe) 1 mg IVPUSH Q4H PRN; Protocol PRN Reason: Pain, Severe (Pain Scale 7-10) Last Admin: 10/01/24 07:52 Dose: 1 mg Documented By: VICTORIA Lactated Ringer's (Lr) 1,000 mls @ 80 mls/hr IVCONT .[id number] [facility] Last Admin: 10/01/24 05:38 Dose: 80 mls/hr Documented By: JATINDER Lamotrigine (Lamotrigine 25 Mg Tablet) 75 mg PO BEDTIME [facility] Last Admin: 09/30/24 22:54 Dose: Not Given Documented By: JATINDER Non-Admin Reason: Patient declined Magnesium Hydroxide (Milk Of Magnesia 30 Ml Oral.Susp) 30 ml PO DAILY PRN PRN Reason: Constipation Melatonin (Melatonin 3 Mg Tablet) 6 mg PO BEDTIME PRN PRN Reason: Insomnia Metoclopramide HCl (Metoclopramide Hcl 10 Mg/2 Ml Vial) 10 mg IVPUSH Q8H PRN PRN Reason: Nausea and Vomiting Last Admin: 09/30/24 22:26 Dose: 10 mg Documented By: JATINDER Comments: Nausea and vomiting Multivitamins/Vitamin C (Multivitamin Tablet) 1 tab PO DAILY [facility] Last Admin: 10/01/24 09:42 Dose: 1 tab Documented By: VICTORIA Ondansetron HCl (Ondansetron Hcl 4 Mg/2 Ml Vial) 4 mg IVPUSH Q6H PRN PRN Reason: Nausea Last Admin: 10/01/24 03:10 Dose: 4 mg Documented By: JATINDER Pantoprazole Sodium (Pantoprazole Sodium 40 Mg/10 Ml Vial) 40 mg IVPUSH BID@0630,1630 [facility] Last Admin: 10/01/24 05:38 Dose: 40 mg Documented By: JATINDER Prazosin HCl (Prazosin Hcl 5 Mg Capsule) 5 mg PO BEDTIME [facility]; Protocol Last Admin: 09/30/24 22:49 Dose: 5 mg Documented By: JATINDER Sodium Chloride (0.9 % Sodium Chloride Flush 3 Ml Syringe) 3 ml IVFLUSH QSHIFT [facility] Last Admin: 10/01/24 07:55 Dose: 3 ml Documented By: VICTORIA Sucralfate (Sucralfate Oral Suspension 1 Gm/10 Ml Oral.Susp) 1 gm PO QIDACHS [facility] Last Admin: 10/01/24 07:52 Dose: 1 gm Documented By: VICTORIA Trazodone HCl (Trazodone Hcl 50 Mg Tablet) 150 mg PO BEDTIME [facility] Last Admin: 09/30/24 22:51 Dose: 150 mg Documented By: JATINDER Labs 10/01/24 07:16 10/01/24 07:16 Labs: Laboratory Results - last 24 hr 09/30/24 09/30/24 09/30/24 10:19 10:50 10:50 MCV 91.0 MCH 30.3 MCHC 33.3 RDW 14.1 Plt Count 348 D MPV 9.9 Immature Gran % (Auto) 0.4 Neut % (Auto) 64.9 Lymph % (Auto) 23.6 [place] % (Auto) 9.9 Eos % (Auto) 0.5 Baso % (Auto) 0.7 Lymph # (Auto) 2.7 [place] # (Auto) 1.2 Eos # (Auto) 0.1 Baso # (Auto) 0.1 Abs Immat Gran (auto) 0.05 H Absolute Neuts (auto) 7.6 Absolute Nucleated RBC 0.000 Nucleated RBC % (auto) 0.0 Smear Tech's Comments VERIFIED Anion Gap 21 H Estim Creat Clear Calc 116.9 Estimated GFR > 60 Random Glucose 126 H Calcium 8.9 D Magnesium 2.0 Total Bilirubin 0.9 Direct Bilirubin AST 166 H ALT 58 H Alkaline Phosphatase 168 H Total Protein 7.3 Albumin 3.9 Lipase 7 L Beta HCG, Quant 4 Urine Color Urine Appearance Urine pH Ur Specific [place] Urine Protein Urine Glucose (UA) Urine Ketones Urine Blood Urine Nitrite Ur Leukocyte Esterase Urine RBC Urine WBC Ur Squamous Epith Cells Urine Bacteria Hyaline Casts Urine Test Ethyl Alcohol 125 Cancelled 09/30/24 10/01/24 16:06 07:16 MCV 93.8 MCH 30.4 MCHC 32.4 RDW 14.2 Plt Count 242 D MPV 9.9 Immature Gran % (Auto) Neut % (Auto) Lymph % (Auto) [place] % (Auto) Eos % (Auto) Baso % (Auto) Lymph # (Auto) [place] # (Auto) Eos # (Auto) Baso # (Auto) Abs Immat Gran (auto) Absolute Neuts (auto) Absolute Nucleated RBC 0.000 Nucleated RBC % (auto) 0.0 Smear Tech's Comments Anion Gap 18 Estim Creat Clear Calc 67.7 Estimated GFR 55 Random Glucose 156 H Calcium 8.6 Magnesium 1.7 Total Bilirubin 1.3 H Direct Bilirubin 0.6 H AST 83 H ALT 40 H Alkaline Phosphatase 128 H Total Protein 5.9 L Albumin 3.3 L Lipase Beta HCG, Quant Urine Color Dark Yellow Urine Appearance Turbid Urine pH 5.5 Ur Specific [place] 1.025 Urine Protein 30 (1+) H Urine Glucose (UA) Negative Urine Ketones Trace Urine Blood Negative Urine Nitrite Negative Ur Leukocyte Esterase Trace H Urine RBC 3-5 H Urine WBC 6-10 Ur Squamous Epith Cells >20 Urine Bacteria 2+ Hyaline Casts 6-10 Urine Test NEGATIVE Ethyl Alcohol Assessment and Plan (1) Alcoholic gastritis: Status: Acute Plan 44F PMH chronic pancreatitis, alcohol dependence, cocaine use, mood disorder presented with nausea vomiting for 3 days Intractable nausea and vomiting Acute recurrent alcoholic hepatitis and chronic pancreatitis Continue Creon, Carafate, ppi, IV fluids, antiemetics, clear liquid diet and advanced as tolerated (not interested at this time) VERONIKA due to dehydration continue ivf, monitor Alcohol dependence Monitor CIWA Mood disorder Continue mood stabilizers and anxiolytics DVT prophylaxis with Lovenox Full Code reason for continued hospitalization:veronika, ivf, awaiting po tolerance Quality Stroke Does the patient have a stroke diagnosis?: No VTE Prior VTE?: No VTE Risk Level:: Medical - moderate - high VTE Device Contraindication: Treatment Not Indicated VTE Drug Contraindication: N/A - Med Ordered
--- NOTE | 2024-10-01 14:28 | P.DS_ITS ---
DS: Providers Provider Date of Service: 10/01/24 Date of admission: 09/30/24 16:14 Date of discharge: 10/01/24 Primary care physician: Anai Lane NP DS: Diagnosis Discharge Diagnosis (1) Alcoholic gastritis: Status: Acute DS: Summary Hospital Course Hospital Course: from initial hpi: 44F PMH chronic pancreatitis, alcohol dependence, cocaine use, mood disorder presented with nausea vomiting for 3 days. Also associated with epigastric abdominal pain. Has been drinking less than usual. Unable to tolerate p.o.. Denies fever, chills, chest pain, shortness of breath. In ED CT abdomen showed no evidence of acute pancreatitis only sequelae of chronic pancreatitis and possible esophagitis. hospital course: Patient was admitted for intractable nausea and vomiting and abdominal pain due to acute recurrent alcoholic hepatitis and chronic pancreatitis. Was treated with IV fluids, Carafate, ppi, Creon, antiemetics. Diet was slowly advanced and patient is now tolerating solids. Course course complicated by acute kidney injury and was treated with IV fluids should continue hydration as outpatient. For alcohol dependence did not show any signs of withdrawal, abstinence is recommended. For mood disorder was continued on bupropion, aripiprazole, Ativan. Patient is feeling better will be discharged home. Time Attestation Discharge Coordination Time (in mins): 34 Quality: Safe Use of Opioids Does Pt have an Active Cancer Diagnosis on the Problem List?: No Quality: Stroke Does the patient have a stroke diagnosis?: No Physical Exam Vital Signs: Vital Signs: Last Vital Signs Temp 98.6 F 10/01/24 11:38 Pulse 102 H 10/01/24 11:38 Resp 18 10/01/24 11:38 BP 114/72 10/01/24 11:38 Pulse Ox 95 10/01/24 11:38 O2 Del Method Room Air 10/01/24 11:38 BMI result Body Mass Index 31.4 General: AO X 3, no acute distress Resp: CTA bilateral, no accessory muscles used CVS: S1,S2,RRR GI: soft, non tender, non distended Neuro: motor grossly intact, alert Psych: appropriate affect, appropriate insight DS: Data Data Completed and Pending Completed studies during hospitalization [Text1]: Procedures Detoxification Services for Substance Abuse Treatment (09/07/23) Labs on day of discharge: Laboratory Results - last 24 hr 09/30/24 10/01/24 16:06 07:16 WBC 8.4 RBC 3.72 L Hgb 11.3 L Hct 34.9 L MCV 93.8 MCH 30.4 MCHC 32.4 RDW 14.2 Plt Count 242 D MPV 9.9 Absolute Nucleated RBC 0.000 Nucleated RBC % (auto) 0.0 Sodium 137 Potassium 3.9 Chloride 96 Carbon Dioxide 27 Anion Gap 18 BUN 7 L Creatinine 1.08 Estim Creat Clear Calc 67.7 Estimated GFR 55 Random Glucose 156 H Calcium 8.6 Magnesium 1.7 Total Bilirubin 1.3 H Direct Bilirubin 0.6 H AST 83 H ALT 40 H Alkaline Phosphatase 128 H Total Protein 5.9 L Albumin 3.3 L Urine Color Dark Yellow Urine Appearance Turbid Urine pH 5.5 Ur Specific [place] 1.025 Urine Protein 30 (1+) H Urine Glucose (UA) Negative Urine Ketones Trace Urine Blood Negative Urine Nitrite Negative Ur Leukocyte Esterase Trace H Urine RBC 3-5 H Urine WBC 6-10 Ur Squamous Epith Cells >20 Urine Bacteria 2+ Hyaline Casts 6-10 Urine Test NEGATIVE Preliminary micro results at discharge 09/30/24 Unknown Urine Culture - Preliminary Urine clean catch - Clean Catch Midstream Culture too young to evaluate. Discharge Plan Discharge Anticipated Discharge Date/Time: 10/01/24 14:27 Patient Disposition: Home, Self-Care Discharge Diagnosis: etoh gastritis, chronic pancreatitis, sanjana Referrals: Anai Lane, [employer] [Primary Care Provider] - Discharge Medications: New omeprazole 40 mg capsule,delayed release(DR/EC) 40 mg PO DAILY Qty: 30 0RF oxycodone 5 mg tablet 5 mg PO Q8H PRN (Reason: pain) Qty: 10 0RF Rx Instructions: Partial Fill upon patient request. Continued prazosin 5 mg Capsule 5 mg PO BEDTIME 30 Days Qty: 30 0RF doxepin 50 mg capsule 50 mg PO BEDTIME gabapentin 600 mg tablet 600 mg PO TID aripiprazole 10 mg tablet 10 mg PO BEDTIME lorazepam 1 mg tablet 1 mg PO TID PRN (Reason: Anxiety) pantoprazole 40 mg Tablet,Delayed Release (Dr/Ec) 40 mg PO DAILY@0630 multivitamin Tablet 1 tab PO DAILY trazodone 150 mg tablet 150 mg PO BEDTIME Creon 36,000-114,000- 180,000 unit capsule,delayed release(DR/EC) 1 cap PO TID lamotrigine 25 mg tablet 75 mg PO BEDTIME folic acid 1 mg tablet 1 mg PO DAILY bupropion HCl 300 mg tablet extended release 24 hr 300 mg PO DAILY ZzzQuil 50 mg/30 mL Liquid 50 mg PO BEDTIME PRN (Reason: Sleep) sucralfate 1 gram tablet 1 g PO BID Discharge Orders: Discharge Order (Routine); Ordered 10/01/24 Ordered By: Faustino Jha Diet: Advance to usual diet Activity on Discharge: As tolerated Stand Alone Forms: Patient Portal Discharge page Print Language: Choose Not To Answer Care Plan Goals: recovery Health Concerns: etoh gastirtis, chronic pancreatitis, sanjana Plan of Treatment: avoid etoh drink plenty of fluids Assessment: see above Patient Instructions: Gastritis (ED), Pancreatitis (ED)
--- NOTE | 2024-10-01 14:29 | MHC.CM.PN ---
Patient has been medically cleared for dc to home today, self care.
== END 2024-10-01 16:23 | disposition home or self-care (01) ==
LOC: HO.ED 15:30 → HO.EDOVER 16:18 → HO.IMC 19:24
PROVIDERS: Admitting Provider Internal Medicine; Emergency Provider Emergency Medicine; PCP Nurse Practitioner Adult Health; Visit Provider Internal Medicine
DX: K29.20 Alcoholic gastritis without bleeding (principal); K86.1 Other chronic pancreatitis; N17.9 Acute kidney failure, unspecified; K44.9 Diaphragmatic hernia without obstruction or gangrene; K70.10 Alcoholic hepatitis without ascites; F14.90 Cocaine use, unspecified, uncomplicated; F10.20 Alcohol dependence, uncomplicated; Y90.6 Blood alcohol level of 120-199 mg/100 ml; R11.2 Nausea with vomiting, unspecified; R10.13 Epigastric pain; F39 Unspecified mood [affective] disorder; R10.9 Unspecified abdominal pain; Z79.899 Other long term (current) drug therapy
CPT/HCPCS: 36415; 74176; 80048; 80053; 80076; 80307; 81001; 81025; 83690; 83735; 84702; 85025; 85027; 87086; 93005; 96361; 96372; 96374; 96375; 96376; 99222; 99285; J1171; J1200; J2405; J2470; J2765; J3360; J7120

== ENCOUNTER → 2024-09-30 11:55 | Outpatient (BNV) | payer OTHER, SELFPAY | PROVIDERS: Emergency Provider Emergency Medicine; PCP Nurse Practitioner Adult Health; Visit Provider Radiology Diagnostic Radiology | DX: K86.1 Other chronic pancreatitis (principal) | CPT/HCPCS: 74176 ==

== ENCOUNTER 2024-09-30 16:14 | Outpatient (BNV) | payer OTHER, SELFPAY | END 2024-10-01 06:16 | PROVIDERS: Admitting Provider Internal Medicine; Emergency Provider Emergency Medicine; PCP Nurse Practitioner Adult Health; Visit Provider Internal Medicine Cardiovascular Disease | DX: R00.0 Tachycardia, unspecified (principal) | CPT/HCPCS: 93010 ==

== ENCOUNTER → 2024-09-30 16:14 | Outpatient (BNV) | payer OTHER, SELFPAY | PROVIDERS: Admitting Provider Internal Medicine; Emergency Provider Emergency Medicine; PCP Nurse Practitioner Adult Health; Visit Provider Internal Medicine | DX: K29.20 Alcoholic gastritis without bleeding (principal) | CPT/HCPCS: 99223; 99239; 99499 ==

== ENCOUNTER 2024-10-05 11:14 | Inpatient (IN) | payer OTHER, SELFPAY ==
[2024-10-05 11:24] VITALS: BP 126/75; BP 136/90; PULSE 102; PULSE 122; RESP 18; TEMP 36.3; O2SAT 97; O2SAT 98; BMI 28.3
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
--- NOTE | 2024-10-05 11:51 | ECG_ITS ---
Test Reason : TACHYCARDIA Blood Pressure : */* mmHG Vent. Rate : 94 BPM Atrial Rate : 94 BPM P-R Int : 124 ms QRS Dur : 80 ms QT Int : 378 ms P-R-T Axes : 54 63 61 degrees QTcB Int : 472 ms Normal sinus rhythm ST & T wave abnormality, consider anterior ischemia Prolonged QT Abnormal ECG When compared with ECG of 01-Oct-2024 06:16, T wave inversion no longer evident in Lateral leads Referred By: Salena Cadena Electronically Signed By: KEON NAVA MD
--- OUTSIDE RECORDS SUMMARY | 2024-10-05 12:04 | XMS_ITS | Clinical Summary ---
Author Organization [facility] Address [address] [place] [address] Care Team Providers Care Sewing Line Baler Name Role Phone Unavailable Primary Care Provider [...]
--- NOTE | 2024-10-05 12:21 | PC.NURSE ---
patient told this nurse she took 50 pills- keeps repeating that she wants to kill herself. pt told the tech that she took 90 pills- provider was notified.
--- NOTE | 2024-10-05 12:26 | PC.NURSE ---
poison control poison control was contacted after EKG was performed. They were notified that the patient took anywhere between 12-90 tablets of ativan within the last hour or so but the patient is currently awake/alert and speaking with staff. ekg was performed and the qt/qrs intervals were given, per poison control no serial ekgs need to be performed but they will call us back for results of labs. they state to monitor patient for 4-6 hours then can be medically cleared pending no abnormal labs.
[2024-10-05 12:43] LABS: MANUAL DIFF FLAG NO
[2024-10-05] MEDS: Ibuprofen 600 MG TABLET PO (12:43)
[2024-10-05 12:44] LABS: Basophils Absolute Auto 0.1 X10*3/uL (0.0-0.2); Basophils Percent Auto 0.7 % (0-2); Eosinophils Absolute Auto 0.1 X10*3/uL (0.0-0.4); Eosinophils Percent Auto 1.4 % (0-4); Hematocrit 38.6 % (37.0-47.0); Hemoglobin 12.9 g/dl (12.0-16.0); Imm Gran Abs Auto 0.04 X10*3/uL (0.00-0.03); Imm Gran Pct Auto 0.5 % (0.0-0.4); Lymphocytes Absolute Auto 2.2 X10*3/uL (1.2-4.9); Lymphocytes Percent Auto 25.7 % (20-40); Mean Corpuscular HGB Conc 33.4 g/dl (31.0-35.0); Mean Corpuscular Hemoglobin 30.5 pg (27.0-33.0); Mean Corpuscular Volume 91.3 fL (80.0-98.0); Mean Platelet Volume 9.6 fL (9.4-12.3); Monocytes Absolute Auto 1.1 X10*3/uL (0.1-1.2); Monocytes Percent Auto 12.2 % (2-11); Neutrophils Absolute Auto 5.1 x10*3/uL (2.0-8.3); Neutrophils Percent Auto 59.5 % (45-73); Platelet Count 255 X10*3/uL (160-400); Red Blood Count 4.23 X10*6/uL (4.20-5.50); Red Cell Distribution Width 14.2 % (11.0-16.0); White Blood Count 8.6 X10*3/uL (4.8-10.8)
[2024-10-05 12:59] LABS: Appearance Urine Clear; Color Urine Yellow; Glucose Urine UA Negative (Negative); Leukocyte Esterase Urine Negative (Negative); Nitrite Urine Negative (Negative); Urine Blood Negative (Negative); Urine Ketones Negative (Negative); Urine Protein Negative (Neg-Trace)
[2024-10-05 13:02] LABS: Bacteria Urine None Seen (None Seen); Hyaline Casts Urine 0-2 /LPF (0-2); RBC Urine 0-2 /HPF (0-2); Squamous Epithelial Cell Urine 0-2 /HPF (0-2); UPreg QC Valid YES; Urine Pregnancy NEGATIVE (NEGATIVE); WBC Urine 0-5 /HPF (0-5)
--- NOTE | 2024-10-05 13:02 | PC.NURSE ---
patient was offered motrin for her pain, pt stated I want dilaudid this nurse told the patient she was not getting dilaudid that she has motrin ordered and she could take that if she would like. Pt opted to take the motrin for 5/10 pain.
[2024-10-05 13:08] LABS: Amphetamine Screen Urine Not Detected (Not Detect); Barbiturates, Urine Not Detected (Not Detect); Benzodiazepines Screen Urine POSITIVE (Not Detect); Buprenorphine Scr Not Detected (Not Detect); Cannabinoid Screen Urine Not Detected (Not Detect); Cocaine Screen Urine POSITIVE (Not Detect); Fentanyl, urine Not Detected (Not Detect); Methadone Screen, Urine Not Detected (Not Detect); Opiate Screen Urine Not Detected (Not Detect); Oxycodone Screen Urine Not Detected (Not Detect); Phencyclidine Screen Urine Not Detected (Not Detect)
[2024-10-05 13:43] LABS: Alanine Aminotransferase 51 U/L (0-31); Albumin Level 3.5 g/dL (3.5-5.0); Alkaline Phosphatase 149 U/L (39-117); Anion Gap 16 (12-20); Aspartate Amino Transferase 141 U/L (5-31); Bilirubin Direct 0.5 mg/dL (0.0-0.5); Blood Urea Nitrogen 3 mg/dL (9-16); Calcium 8.7 mg/dL (8.4-10.2); Carbon Dioxide 24 mmol/L (22-29); Chloride 104 mmol/L (96-108); Creatinine Clr Calc Pharmacy 112.7; Estimated Glomerular Filt Rate > 60; Ethanol 154 mg/dL; Glucose Random 126 mg/dL (60-115); Lipase 12 U/L (8-78); Potassium 3.8 mmol/L (3.3-5.1); Sodium 140 mmol/L (135-145); Total Protein 6.1 g/dL (6.5-8.0)
--- NOTE | 2024-10-05 14:08 | MHC.CARE ---
Pt meets the criteria for IPLOC and will remain in the ED on a Section 12a. Ed provider in agreement.
--- NOTE | 2024-10-05 15:56 | PC.NURSE ---
pt continues to have pain- provider was notified and additional medications were put in, however, pt currently sleeping after she had been pacing the unit and using the phone. will medicate the patient and get repeat vitals per request of the provider when she wakes
[2024-10-05 17:04] VITALS: BP 121/87; PULSE 96; RESP 12; TEMP 37; O2SAT 98
[2024-10-05] MEDS: Famotidine 20 MG TABLET PO (17:04)
[2024-10-05] MEDS: Magnesium Hydrox/Alum Hydrox 30 ML ORAL.SUSP PO (17:04)
[2024-10-05] MEDS: Ondansetron ODT 4 MG TAB.RAPDIS TRANSLINGU (17:05)
[2024-10-05 17:37] LABS: Acetaminophen LAB < 3 mcg/mL (<30); Salicylate < 5.0 mg/dL (15-30)
[2024-10-06 00:45] VITALS: BP 154/98; PULSE 106; RESP 17; TEMP 36.9; O2SAT 97
[2024-10-06 06:00] VITALS: BP 155/106; PULSE 105; RESP 19; TEMP 36.9; O2SAT 98
--- NOTE | 2024-10-06 07:40 | PC.NURSE ---
Assumed care of patient at 0645, patient appears to be in no apparent distress this am, calm and cooperative, talked on phone with then went back to bed. Continue plan of care for IPLOC
[2024-10-06] MEDS: diazePAM 10 MG/2 ML CARTRIDGE 5 MG IM (09:19)
--- NOTE | 2024-10-06 10:11 | PHA.MEDREC ---
Addendum entered by Nixon Sarmiento PharmD 10/06/24 10:14: reviewed Original Note: Pharmacy Consult ? Medication Reconciliation Pharmacy has completed the medication reconciliation. Reviewed med rec done by nursing.
[2024-10-06] MEDS: Multivitamin TABLET 1 TAB PO (10:16)
[2024-10-06] MEDS: Omeprazole 40 MG CAPSULE.DR PO (10:16)
[2024-10-06] MEDS: Gabapentin 600 MG TABLET PO ×3 (10:16→20:42)
[2024-10-06] MEDS: Folic Acid 1 MG TABLET PO (10:16)
[2024-10-06] MEDS: buPROPion HCl XL 300 MG TAB.ER.24H PO (10:16)
[2024-10-06] MEDS: Sucralfate 1 GM TABLET PO ×2 (10:16→20:43)
[2024-10-06] MEDS: LORazepam 1 MG TABLET 2 MG PO ×5 (11:04→20:44)
--- NOTE | 2024-10-06 11:06 | PC.NURSE ---
BELONGINGS: Pts took belongings home with permission from pt, updated belongings list
[2024-10-06 13:22] VITALS: BP 128/98; PULSE 101; RESP 18; O2SAT 99
--- NOTE | 2024-10-06 13:28 | PC.NURSE ---
Pt c/o continued ETOH withdrawal, CIWA 7 & mouth pain after brushing teeth. Dr. Gomez made aware, okay'd to give PRN ativan.
--- NOTE | 2024-10-06 13:37 | PC.NURSE ---
Dr. Gomez ordered additional 2mg PO ativan, confirmed w/ provider total 4mg to be given, provider confirmed.
[2024-10-06] MEDS: Acetaminophen 325 MG TABLET 650 MG PO (14:56)
--- NOTE | 2024-10-06 15:46 | PC.NURSE ---
pt reporting right sided jaw pain that comes and goes, originally provided with tylenol and patient reported some relief but then presented back to the nurses station within 15 minutes stating that the tylenol did not work and she needed something stronger. Pt reports that she would like Dilaudid or Tramadol. DO aware, plan for magic mouthwash at this time
[2024-10-06] MEDS: Mag&Al/Sim/Diphenhyd/Lidocaine 10 ML ORAL.SUSP PO (15:52)
[2024-10-06] MEDS: Lipase/Prot/Amylase 12/38/60K CAPSULE.DR 3 CAP PO (15:52)
[2024-10-06 20:38] VITALS: BP 133/86; PULSE 103; RESP 16; TEMP 36.5; O2SAT 96
[2024-10-06] MEDS: ARIPiprazole 10 MG TABLET PO (20:42)
[2024-10-06] MEDS: Doxepin HCl 25 MG CAPSULE 50 MG PO (20:42)
[2024-10-06] MEDS: traZODone HCL 50 MG TABLET 150 MG PO (20:42)
[2024-10-06] MEDS: lamoTRIgine 25 MG TABLET 75 MG PO (20:42)
[2024-10-06 20:43] VITALS: BP 133/86
[2024-10-06] MEDS: Prazosin HCL 5 MG CAPSULE PO (20:43)
[2024-10-07 06:05] VITALS: BP 115/77; PULSE 122; RESP 20; TEMP 37.1; O2SAT 96
[2024-10-07] MEDS: LORazepam 1 MG TABLET 2 MG PO ×4 (06:11→20:30)
[2024-10-07] MEDS: Omeprazole 40 MG CAPSULE.DR PO (06:12)
--- NOTE | 2024-10-07 07:17 | PC.NURSE ---
Assumed care of patient at 0645, patient appears to be in no apparent distress this am, resting in bed, respirations even and unlabored. Continue plan of care for IPLOC
[2024-10-07 08:28] VITALS: BP 109/66; PULSE 123; RESP 16; TEMP 36.7; O2SAT 97
[2024-10-07] MEDS: buPROPion HCl XL 300 MG TAB.ER.24H PO (08:32)
[2024-10-07] MEDS: Multivitamin TABLET 1 TAB PO (08:33)
[2024-10-07] MEDS: Folic Acid 1 MG TABLET PO (08:33)
[2024-10-07] MEDS: Sucralfate 1 GM TABLET PO ×2 (08:33→20:30)
[2024-10-07] MEDS: Gabapentin 600 MG TABLET PO ×3 (08:33→20:30)
[2024-10-07] MEDS: Lipase/Prot/Amylase 12/38/60K CAPSULE.DR 3 CAP PO ×2 (13:50→18:41)
[2024-10-07 15:48] VITALS: BP 136/78; PULSE 114; RESP 15; TEMP 36.4; O2SAT 95
[2024-10-07 15:49] VITALS: BMI 32.8
[2024-10-07] MEDS: LORazepam 1 MG TABLET PO (16:42)
--- NOTE | 2024-10-07 17:56 | PC.NURSE ---
Patient arrived to the unit without any belongings, per nursing staff in the ED POD and Rufina, her took all belongings home with him.
--- NOTE | 2024-10-07 17:57 | PC.ADMIT ---
Patient was admitted from the ED POD on a CV with a dx of Unspecified Depressive Disorder, PTSD, Alcohol and Cocaine Use Disorder. Patient was BIBA after calling the ED and reporting that she had overdosed on Ativan by taking 15 pills following an argument with her . Patient is A&Ox4 with linear and organized thought process. 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 Patient stated I was arguing with my over the business, he told me to get the hell out and that's when I took the pills . Patient denies any hx of suicidal attempts and reports regretting the decision quickly after taking the pills, thus calling 911. Per pt, she has experience increased suicidal thoughts recently but I've never had a plan or wanted to take action . Patient's UTOX was positive for cocaine and benzo's (patient currently takes Ativan scheduled at home) and reports doing 2-3 lines of cocaine daily . Alcohol level was 154 on 10/05 I have about 5-6 nips a day since August and she has been placed on a CIWAQ4. 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 Patient denies any issues with her sleep or appetite, and skin check showed scattered bruising to patients BL forearms from recent blood draws. She reports a hx of 2 seizures 13 years ago from alcohol withdrawal and is considered a high fall risk. States her goal is to Be better, come out of here a better person and get back to my regimen . Placed on 15 minute checks for safety.
[2024-10-07] MEDS: Mag&Al/Sim/Diphenhyd/Lidocaine 10 ML ORAL.SUSP PO (18:42)
[2024-10-07 19:40] VITALS: BP 122/78; PULSE 99; RESP 16; TEMP 37; O2SAT 96
[2024-10-07] MEDS: traZODone HCL 50 MG TABLET 150 MG PO (20:29)
[2024-10-07] MEDS: ARIPiprazole 10 MG TABLET PO (20:29)
[2024-10-07] MEDS: Prazosin HCL 5 MG CAPSULE PO (20:30)
[2024-10-07] MEDS: lamoTRIgine 25 MG TABLET 75 MG PO (20:30)
[2024-10-07] MEDS: Doxepin HCl 25 MG CAPSULE 50 MG PO (20:30)
[2024-10-07] MEDS: guaiFENesin 100 MG/5 ML 5 ML LIQUID PO (22:24)
[2024-10-07] MEDS: Acetaminophen 325 MG TABLET 650 MG PO (22:24)
[2024-10-07] MEDS: traZODone HCL 50 MG TABLET PO (22:24)
[2024-10-08] VITALS: BP 118/64; PULSE 99; RESP 22; TEMP 37.4; O2SAT 95
[2024-10-08] MEDS: LORazepam 1 MG TABLET 2 MG PO ×3 (00:19→08:19)
[2024-10-08 03:55] LABS: Influenza A PCR NEGATIVE (Negative); Influenza B PCR NEGATIVE (Negative); Resp Syncy Virus RNA Qual PCR NEGATIVE (Negative); SARS COV2 PCR INHOUSE NEGATIVE (Negative)
[2024-10-08 04:25] VITALS: BP 109/67; PULSE 120; RESP 20; TEMP 36.9; O2SAT 95
[2024-10-08] MEDS: Acetaminophen 325 MG TABLET 650 MG PO ×2 (04:30→20:36)
[2024-10-08 05:50] VITALS: PULSE 88; RESP 18
[2024-10-08] MEDS: Omeprazole 40 MG CAPSULE.DR PO (05:52)
[2024-10-08] MEDS: Mag&Al/Sim/Diphenhyd/Lidocaine 10 ML ORAL.SUSP PO ×3 (05:54→18:56)
[2024-10-08] MEDS: Lipase/Prot/Amylase 12/38/60K CAPSULE.DR 3 CAP PO ×3 (07:37→16:11)
[2024-10-08] MEDS: buPROPion HCl XL 300 MG TAB.ER.24H PO (08:19)
[2024-10-08] MEDS: Folic Acid 1 MG TABLET PO (08:19)
[2024-10-08] MEDS: Multivitamin TABLET 1 TAB PO (08:20)
[2024-10-08] MEDS: Gabapentin 600 MG TABLET PO ×3 (08:20→20:44)
[2024-10-08] MEDS: Sucralfate 1 GM TABLET PO ×2 (08:20→20:36)
[2024-10-08] MEDS: Thiamine HCL 100 MG TABLET PO (08:20)
[2024-10-08 08:27] LABS: Estimated Average Glucose 105 mg/dL; Hemoglobin A1C 108.9165 umol/L; Hemoglobin A1c % 5.3 % (<6.0); Total Hemoglobin (HGBA1C) 3122.8327 umol/L
[2024-10-08 08:40] LABS: Alanine Aminotransferase 44 U/L (0-31); Albumin Level 3.7 g/dL (3.5-5.0); Alkaline Phosphatase 130 U/L (39-117); Anion Gap 14 (12-20); Aspartate Amino Transferase 120 U/L (5-31); Bilirubin Total 1.4 mg/dL (0.0-1.0); Blood Urea Nitrogen 8 mg/dL (9-16); Calcium 9.3 mg/dL (8.4-10.2); Carbon Dioxide 24 mmol/L (22-29); Chloride 103 mmol/L (96-108); Cholesterol 156 mg/dL (<200); Creatinine Clr Calc Pharmacy 106.3; Estimated Glomerular Filt Rate > 60; Glucose Random 133 mg/dL (60-115); HDL Cholesterol 36 mg/dL (>40); LDL Cholesterol Calculated 87 mg/dL (<100); Potassium 3.9 mmol/L (3.3-5.1); Sodium 137 mmol/L (135-145); Total Protein 6.6 g/dL (6.5-8.0); Triglycerides 165 mg/dL (<150)
--- NOTE | 2024-10-08 09:00 | HO.PSYADMNOT ---
HPI Date of Service: 10/08/24 Chief Complaint: SI Sources of Information: patient interviewed, chart reviewed and crisis/core team assessment reviewed HPI Subjective Notes: Ramirez Warning and Conditional Voluntary Narrative: Patient is a 44-year-old female with history of bipolar disorder, PTSD, cocaine use disorder and alcohol use disorder who was brought in by ambulance to [facility] ER due to overdosing on Ativan secondary to increased depression. Per crisis report, patient called 911 herself reporting she overdosed on Ativan. Patient reported she took 15 Ativan however has been reported that there were only 12 pills in the bottle. Patient reported she had an argument with her and took the 15 Ativan. She denied SI/HI/VH/AH. Patient's reports the patient is not properly caring for herself and isolating to her room. He reports he does not want her to return to the home after discharge due to making his life unpleasant. She denies history of SA. History of inpatient psychiatric hospitalizations. History of detox admissions. Most recently received treatment at [facility] a year ago. During admission assessment, patient presents alert and oriented x3. Calm and cooperative. Patient reports feeling anxious and depressed; patient stated, I overdosed on 15 Ativan. My stress level is high because of work. 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 We were arguing and he told me get the hell out and then I took the Ativan. He doesn't appreciate the work that I do . Patient reports she was feeling suicidal in the moment , but thinks about her parents and brother and regrets her actions. Patient stated, I realized I made a mistake and called 911 . denies SI/HI/VH/AH. Patient reports history of withdrawal seizures 13 years ago. She reports sleep and appetite are good. Patient reports she has been drinking 5-6 nips and 1 large mixed drink daily. She also reports using 2-3 lines of cocaine daily for the last few years . denies any other substance use. Patient reports the last time she can recall being sober was 2 years ago. utox positive for benzodiazepines, cocaine and alcohol. Denies history of SA/SIB. Patient reports the [place] she [place] [facility] [place] [place] She reports being medication compliant. Patient reports having outpatient psychiatric providers through the [facility] in [place], [place]; she would like referral to an outpatient therapist. History of detox admissions. She reports she is currently not interested in attending a substance abuse program. Past Psychiatric History: Denies history of SA/SIB. Prescriber: Megan Lpoez ([facility]) Therapist: does not have History of detox admissions. History of 2 other inpatient psychiatric hospitalizations. Medical Evaluation Reviewed: Yes [facility] Medical History (Updated 10/08/24 @ 22:13 by Janey Colon NP) Chronic cough Chronic pancreatitis Cocaine use Alcohol abuse Obesity (BMI 30.0-34.9) Pancreatitis Back pain Alcohol use disorder, severe, dependence Gastritis Gastritis Endometriosis Constipation Anxiety Depression Bipolar disorder Suicidal behavior PTSD (post-traumatic stress disorder) Surgical History History of ankle surgery Family History: Father completed suicide Social History: Lives with . No kids. Works full-time for [employer] business. Associates degree. Substance History: Patient drinks 5-6 nips and 1 mixed drink daily. She reports using 2-3 lines of cocaine daily for the last few years. Trauma History: Yes Diagnostics Vital Signs (24Hr): Vital Signs - 24 hr 10/07/24 15:48 10/07/24 19:40 10/08/24 00:00 Temperature 97.6 F 98.6 F 99.3 F Pulse Rate 114 H 99 99 Respiratory Rate 15 16 22 H Blood Pressure 136/78 122/78 118/64 Pulse Oximetry 95 96 95 Oxygen Delivery Method Room Air Room Air Room Air 10/08/24 04:25 10/08/24 05:50 Temperature 98.4 F Pulse Rate 120 H 88 Respiratory Rate 20 18 Blood Pressure 109/67 Pulse Oximetry 95 Oxygen Delivery Method Room Air BMI result Body Mass Index 32.8 Labs 10/05/24 12:34 10/08/24 08:02 Labs: Laboratory Results - last 48 hr 10/08/24 10/08/24 03:00 08:02 Sodium 137 Potassium 3.9 Chloride 103 Carbon Dioxide 24 Anion Gap 14 BUN 8 L Creatinine 0.73 Estim Creat Clear Calc 106.3 Estimated GFR > 60 Random Glucose 133 H Estimat Average Glucose 105 Hemoglobin A1c % 5.3 Calcium 9.3 D Total Bilirubin 1.4 H AST 120 H ALT 44 H Alkaline Phosphatase 130 H Total Protein 6.6 Albumin 3.7 Triglycerides 165 H Cholesterol 156 LDL Cholesterol, Calc 87 HDL Cholesterol 36 L Influenza Type A (PCR) NEGATIVE Influenza Type B (PCR) NEGATIVE RSV RNA Qual (PCR) NEGATIVE SARS-CoV-2 RNA (RT-PCR) NEGATIVE Meds/Allergies Meds Home Medications ?Medication ?Instructions ?Recorded ?Confirmed ?Type aripiprazole 10 mg tablet 10 mg PO BEDTIME 05/21/21 10/05/24 History doxepin 50 mg capsule 50 mg PO BEDTIME 05/21/21 10/05/24 History gabapentin 600 mg tablet 600 mg PO TID 05/21/21 10/05/24 History lorazepam 1 mg tablet 1 mg PO TID PRN Anxiety 05/21/21 10/05/24 History pantoprazole 40 mg tablet,delayed 40 mg PO DAILY@0630 05/21/21 10/05/24 History release bupropion HCl 300 mg 24 hr tablet, 300 mg PO DAILY 09/07/23 10/05/24 History extended release folic acid 1 mg tablet 1 mg PO DAILY 09/07/23 10/05/24 History lamotrigine 25 mg tablet 75 mg PO BEDTIME 09/07/23 10/05/24 History xoqzfz-fmhaepgb-athgbvl 1 cap PO TID 08/23/24 10/05/24 History 36,000-114,000-180,000 unit capsule,delay rel (Creon) multivitamin 1 tab PO DAILY 08/23/24 10/05/24 History trazodone 150 mg tablet 150 mg PO BEDTIME 08/23/24 10/05/24 History diphenhydramine HCl 50 mg/30 mL 50 mg PO BEDTIME PRN Sleep 09/09/24 10/05/24 History oral liquid (ZzzQuil) sucralfate 1 gram tablet 1 g PO BID 09/30/24 10/05/24 History Allergies Allergies Allergy/AdvReac Type Severity Reaction Status Date / Time ibuprofen AdvReac Stomach Verified 10/05/24 11:28 Upset morphine AdvReac Gastrointestinal Verified 10/05/24 11:28 Upset bees Allergy Severe Anaphylaxis Uncoded 08/23/24 02:54 Mental Status Exam Mental Status Exam Narrative: Pt is alert and oriented; behavior is cooperative and calm; dressed in casual attire; mood is described as anxious and depressed ; eye contact appropriate; Speech is normal rate, volume and not pressured; thought process is organized and goal directed; Thought content is on tx; otherwise pertinent to relevant topics and without any delusional content, paranoid ideations or grandiosity; denies SI/HI/VH/AH. Assessment & Plan Assessment & Plan (1) Bipolar disorder: Status: Acute Code(s): F31.9 - Bipolar disorder, unspecified (2) PTSD (post-traumatic stress disorder): Status: Acute Code(s): F43.10 - Post-traumatic stress disorder, unspecified (3) Cocaine use: Status: Acute Code(s): F14.90 - Cocaine use, unspecified, uncomplicated (4) Alcohol abuse: Status: Acute Code(s): F10.10 - Alcohol abuse, uncomplicated Plan Patient is a 44-year-old female with history of bipolar disorder, PTSD, cocaine use disorder and alcohol use disorder who was brought in by ambulance to [facility] ER due to overdosing on Ativan secondary to increased depression. Plan: CV 15 minute safety checks Continue home medications [place] protocol Obtain collateral Referral to outpatient therapist Encourage groups Discharge planning Patient educated on: diagnosis and medication risk/benefits Reason for continued inpatient stay Substantial Risk for: med/psych decompensation Statement Statement: I have reviewed the history and physical and performed a pertinent examination on my patient. No changes have occurred unless specified. If the History and Physical was not performed prior to admission, the Hospitalist's service will be consulted for completing the admission physical. Time Spent With Patient Time: Total time managing care of this patient today _60___ minutes.
[2024-10-08] MEDS: hydrOXYzine HCL 25 MG TABLET PO ×2 (11:57→20:35)
[2024-10-08] MEDS: LORazepam 1 MG TABLET PO ×3 (14:06→21:31)
[2024-10-08 20:00] VITALS: BP 125/74; PULSE 101; RESP 18; TEMP 36.6; O2SAT 98
[2024-10-08] MEDS: ARIPiprazole 10 MG TABLET PO (20:35)
[2024-10-08] MEDS: traZODone HCL 50 MG TABLET 150 MG PO (20:35)
[2024-10-08] MEDS: lamoTRIgine 25 MG TABLET 75 MG PO (20:35)
[2024-10-08 20:36] VITALS: BP 125/74
[2024-10-08] MEDS: Prazosin HCL 5 MG CAPSULE PO (20:36)
[2024-10-08] MEDS: Doxepin HCl 25 MG CAPSULE 50 MG PO (20:37)
[2024-10-09] MEDS: LORazepam 1 MG TABLET PO ×5 (00:10→22:30)
[2024-10-09] MEDS: Acetaminophen 325 MG TABLET 650 MG PO ×3 (04:00→18:18)
[2024-10-09] MEDS: Omeprazole 40 MG CAPSULE.DR PO (05:43)
[2024-10-09] MEDS: Lipase/Prot/Amylase 12/38/60K CAPSULE.DR 3 CAP PO ×3 (07:26→16:04)
[2024-10-09 07:50] VITALS: BP 119/70; PULSE 96; RESP 16; TEMP 36.4; O2SAT 96
[2024-10-09] MEDS: Thiamine HCL 100 MG TABLET PO (08:04)
[2024-10-09] MEDS: Multivitamin TABLET 1 TAB PO (08:05)
[2024-10-09] MEDS: Gabapentin 600 MG TABLET PO ×3 (08:05→20:22)
[2024-10-09] MEDS: Folic Acid 1 MG TABLET PO (08:05)
[2024-10-09] MEDS: Sucralfate 1 GM TABLET PO ×2 (08:06→20:22)
[2024-10-09] MEDS: buPROPion HCl XL 300 MG TAB.ER.24H PO (08:06)
--- NOTE | 2024-10-09 10:05 | HO.PSYCHPN ---
Subjective Subjective Date of Service: 10/09/24 Reason For Visit: SI Subjective Notes: 3 Day Interim History: Laying in bed sleeping most of morning. Pt reports feeling better than admission; continues to report headache and anxiety from withdrawal. [facility] protocol. Restart home Ativan 1mg PO TID PRN. Pt reports she spoke with her who would like her to return home. She denies SI/HI/VH/AH. 3 day up on 10/11/24. Medication Compliance: Yes Side effects from medications: No Attending Groups: No Mental Status Exam Mental Status Exam Narrative: Pt is alert and oriented; behavior is cooperative and calm; dressed in casual attire; mood is described as anxious ; eye contact appropriate; Speech is normal rate, volume and not pressured; thought process is organized; Thought content is on tx; denies SI/HI/VH/AH. Diagnostics Vital Signs (24Hr): Vital Signs - 24 hr 10/08/24 20:00 10/08/24 20:36 10/09/24 07:50 Temperature 98 F 97.6 F Pulse Rate 101 H 96 Respiratory Rate 18 16 Blood Pressure 125/74 125/74 119/70 Pulse Oximetry 98 96 Oxygen Delivery Method Room Air Room Air BMI result Body Mass Index 32.8 Labs 10/05/24 12:34 10/08/24 08:02 Labs: Laboratory Results - last 48 hr 10/08/24 10/08/24 03:00 08:02 Sodium 137 Potassium 3.9 Chloride 103 Carbon Dioxide 24 Anion Gap 14 BUN 8 L Creatinine 0.73 Estim Creat Clear Calc 106.3 Estimated GFR > 60 Random Glucose 133 H Estimat Average Glucose 105 Hemoglobin A1c % 5.3 Calcium 9.3 D Total Bilirubin 1.4 H AST 120 H ALT 44 H Alkaline Phosphatase 130 H Total Protein 6.6 Albumin 3.7 Triglycerides 165 H Cholesterol 156 LDL Cholesterol, Calc 87 HDL Cholesterol 36 L Influenza Type A (PCR) NEGATIVE Influenza Type B (PCR) NEGATIVE RSV RNA Qual (PCR) NEGATIVE SARS-CoV-2 RNA (RT-PCR) NEGATIVE Medications Medications Current Medications Acetaminophen (Acetaminophen 325 Mg Tablet) 650 mg PO Q6H PRN PRN Reason: Headache/Pain, Scale 1-10 Last Admin: 10/09/24 04:00 Dose: 650 mg Al Hydroxide/Mg Hydroxide (Magnesium Hydrox/Alum Hydrox 30 Ml Oral.Susp) 30 ml PO Q6H PRN PRN Reason: Heartburn/Nausea Lipase/Protease/Amylase (Lipase/Prot/Amylase 12/38/60k Capsule.Dr) 3 cap PO TIDWM ELIZABETH Last Admin: 10/09/24 07:26 Dose: 3 cap Aripiprazole (Aripiprazole 10 Mg Tablet) 10 mg PO BEDTIME ELIZABETH Last Admin: 10/08/24 20:35 Dose: 10 mg Bupropion HCl (Bupropion Hcl Xl 300 Mg Tab.Er.24h) 300 mg PO DAILY ELIZABETH Last Admin: 10/09/24 08:06 Dose: 300 mg Diphenhydramine HCl (Diphenhydramine Hcl 12.5 Mg/5 Ml Liquid) 50 mg PO BEDTIME PRN PRN Reason: Sleep Doxepin HCl (Doxepin Hcl 25 Mg Capsule) 50 mg PO BEDTIME [facility] Last Admin: 10/08/24 20:37 Dose: 50 mg Folic Acid (Folic Acid 1 Mg Tablet) 1 mg PO DAILY [facility] Last Admin: 10/09/24 08:05 Dose: 1 mg Gabapentin (Gabapentin 600 Mg Tablet) 600 mg PO TID [facility] Last Admin: 10/09/24 08:05 Dose: 600 mg Guaifenesin (Guaifenesin 100 Mg/5 Ml 5 Ml Liquid) 5 ml PO Q6H PRN PRN Reason: Cough Last Admin: 10/07/24 22:24 Dose: 5 ml Hydroxyzine HCl (Hydroxyzine Hcl 25 Mg Tablet) 25 mg PO Q6H PRN PRN Reason: mild anxiety Last Admin: 10/08/24 20:35 Dose: 25 mg Lamotrigine (Lamotrigine 25 Mg Tablet) 75 mg PO BEDTIME ELIZABETH Last Admin: 10/08/24 20:35 Dose: 75 mg Lidocaine/Diphenhydr/Alum/Mg/Simeth (Mag&Al/Sim/Diphenhyd/Lidocaine 10 Ml Oral.Susp) 10 ml PO Q6H PRN; Protocol PRN Reason: Mouth Sore Pain Last Admin: 10/08/24 18:56 Dose: 10 ml Lorazepam (Lorazepam 1 Mg Tablet) 1 mg PO TID PRN PRN Reason: Anxiety Lorazepam (Lorazepam 1 Mg Tablet) 1 mg PO Q2H PRN PRN Reason: CIWA 8-11 Last Admin: 10/09/24 08:05 Dose: 1 mg Lorazepam (Lorazepam 1 Mg Tablet) 2 mg PO Q2H PRN PRN Reason: CIWA 12-15 Last Admin: 10/08/24 08:19 Dose: 2 mg Lorazepam (Lorazepam 1 Mg Tablet) 3 mg PO Q2H PRN PRN Reason: CIWA > 15, and call Magnesium Hydroxide (Milk Of Magnesia 30 Ml Oral.Susp) 30 ml PO DAILY PRN PRN Reason: Constipation Multivitamins/Vitamin C (Multivitamin Tablet) 1 tab PO DAILY [facility] Last Admin: 10/09/24 08:05 Dose: 1 tab Nicotine Polacrilex (Nicotine Polacrilex 2 Mg Gum) 4 mg BUCCAL Q2H PRN PRN Reason: Nicotine Cravings Omeprazole (Omeprazole 40 Mg Capsule.Dr) 40 mg PO DAILY@629 [facility] Last Admin: 10/09/24 05:43 Dose: 40 mg Prazosin HCl (Prazosin Hcl 5 Mg Capsule) 5 mg PO BEDTIME [facility]; Protocol Last Admin: 10/08/24 20:36 Dose: 5 mg Sucralfate (Sucralfate 1 Gm Tablet) 1 gm PO BID [facility] Last Admin: 10/09/24 08:06 Dose: 1 gm Thiamine HCl (Thiamine Hcl 100 Mg Tablet) 100 mg PO DAILY [facility] Last Admin: 10/09/24 08:04 Dose: 100 mg Trazodone HCl (Trazodone Hcl 50 Mg Tablet) 150 mg PO BEDTIME [facility] Last Admin: 10/08/24 20:35 Dose: 150 mg Allergies Allergies Allergy/AdvReac Type Severity Reaction Status Date / Time ibuprofen AdvReac Stomach Verified 10/05/24 11:28 Upset morphine AdvReac Gastrointestinal Verified 10/05/24 11:28 Upset bees Allergy Severe Anaphylaxis Uncoded 08/23/24 02:54 Assessment & Plan Assessment & Plan (1) Bipolar disorder: Status: Acute Code(s): F31.9 - Bipolar disorder, unspecified (2) PTSD (post-traumatic stress disorder): Status: Acute Code(s): F43.10 - Post-traumatic stress disorder, unspecified (3) Cocaine use: Status: Acute Code(s): F14.90 - Cocaine use, unspecified, uncomplicated (4) Alcohol abuse: Status: Acute Code(s): F10.10 - Alcohol abuse, uncomplicated Plan Patient is a 44-year-old female with history of bipolar disorder, PTSD, cocaine use disorder and alcohol use disorder who was brought in by ambulance to [facility] due to overdosing on Ativan secondary to increased depression. Plan: CV 15 minute safety checks Continue home medications CIWA protocol Obtain collateral Referral to outpatient therapist Encourage groups Discharge planning 10/09: Laying in bed sleeping most of morning. Pt reports feeling better than admission; continues to report headache and anxiety from withdrawal. DC CIWA protocol. Restart home Ativan 1mg PO TID PRN. Pt reports she spoke with her who would like her to return home. She denies SI/HI/VH/AH. 3 day up on 10/11/24. Patient educated on: diagnosis, medication risk/benefits and therapeutic strategies Reason for continued inpatient stay Substantial Risk for: med/psych decompensation Time Spent With Patient Time: Total time managing care of this patient today _20___ minutes.
[2024-10-09 12:09] VITALS: BP 123/74; PULSE 95; O2SAT 96
[2024-10-09] MEDS: Mag&Al/Sim/Diphenhyd/Lidocaine 10 ML ORAL.SUSP PO (15:49)
[2024-10-09 20:00] VITALS: BP 117/72; PULSE 91; RESP 18; TEMP 36.7; O2SAT 98
[2024-10-09 20:21] VITALS: BP 117/72
[2024-10-09] MEDS: hydrOXYzine HCL 25 MG TABLET PO (20:21)
[2024-10-09] MEDS: lamoTRIgine 25 MG TABLET 75 MG PO (20:21)
[2024-10-09] MEDS: traZODone HCL 50 MG TABLET 150 MG PO (20:21)
[2024-10-09] MEDS: Prazosin HCL 5 MG CAPSULE PO (20:21)
[2024-10-09] MEDS: Doxepin HCl 25 MG CAPSULE 50 MG PO (20:22)
[2024-10-09] MEDS: ARIPiprazole 10 MG TABLET PO (20:22)
[2024-10-10] MEDS: Mag&Al/Sim/Diphenhyd/Lidocaine 10 ML ORAL.SUSP PO ×3 (02:45→17:14)
[2024-10-10] MEDS: Acetaminophen 325 MG TABLET 650 MG PO ×3 (02:45→17:14)
[2024-10-10] MEDS: Omeprazole 40 MG CAPSULE.DR PO (05:42)
[2024-10-10] MEDS: Lipase/Prot/Amylase 12/38/60K CAPSULE.DR 3 CAP PO ×3 (07:17→16:38)
[2024-10-10 07:47] VITALS: BP 120/68; PULSE 80; RESP 16; TEMP 36.7; O2SAT 96
[2024-10-10] MEDS: Sucralfate 1 GM TABLET PO ×2 (08:29→20:15)
[2024-10-10] MEDS: Multivitamin TABLET 1 TAB PO (08:29)
[2024-10-10] MEDS: Gabapentin 600 MG TABLET PO ×3 (08:29→20:14)
[2024-10-10] MEDS: LORazepam 1 MG TABLET PO ×3 (08:29→20:15)
[2024-10-10] MEDS: Folic Acid 1 MG TABLET PO (08:29)
[2024-10-10] MEDS: Thiamine HCL 100 MG TABLET PO (08:30)
[2024-10-10] MEDS: buPROPion HCl XL 300 MG TAB.ER.24H PO (08:30)
[2024-10-10] MEDS: hydrOXYzine HCL 25 MG TABLET PO ×2 (08:30→20:14)
[2024-10-10 11:32] VITALS: BMI 33.2
--- NOTE | 2024-10-10 15:19 | P.PNPSI_ITS ---
Subjective Subjective Date of Service: 10/10/24 Reason For Visit: SI Subjective Notes: 3 Day Interim History: Patient reports feeling well ; pt stated, I'm focused on remaining sober. I plan on going to AA. My and I talked about no more of the cocaine . denies SI/HI/VH/AH. 3 day up on 10/11/24. pt reports she plans on following up with her outpatient providers. Medication Compliance: Yes Side effects from medications: No Attending Groups: Yes Mental Status Exam Mental Status Exam Narrative: Pt is alert and oriented; behavior is cooperative and calm; dressed in casual attire; mood is described as good ; eye contact appropriate; Speech is normal rate, volume and not pressured; thought process is organized; Thought content is on tx; denies SI/HI/VH/AH. Diagnostics Vital Signs (24Hr): Vital Signs - 24 hr 10/09/24 20:00 10/09/24 20:21 10/10/24 07:47 Temperature 98.1 F 98.1 F Pulse Rate 91 80 Respiratory Rate 18 16 Blood Pressure 117/72 117/72 120/68 Pulse Oximetry 98 96 Oxygen Delivery Method Room Air Room Air BMI result Body Mass Index 33.2 Labs 10/05/24 12:34 10/08/24 08:02 Medications Medications Current Medications Acetaminophen (Acetaminophen 325 Mg Tablet) 650 mg PO Q6H PRN PRN Reason: Headache/Pain, Scale 1-10 Last Admin: 10/10/24 09:54 Dose: 650 mg Al Hydroxide/Mg Hydroxide (Magnesium Hydrox/Alum Hydrox 30 Ml Oral.Susp) 30 ml PO Q6H PRN PRN Reason: Heartburn/Nausea Lipase/Protease/Amylase (Lipase/Prot/Amylase 12/38/60k Capsule.Dr) 3 cap PO TIDWM ELIZABETH Last Admin: 10/10/24 11:54 Dose: 3 cap Aripiprazole (Aripiprazole 10 Mg Tablet) 10 mg PO BEDTIME ELIZABETH Last Admin: 10/09/24 20:22 Dose: 10 mg Bupropion HCl (Bupropion Hcl Xl 300 Mg Tab.Er.24h) 300 mg PO DAILY ELIZABETH Last Admin: 10/10/24 08:30 Dose: 300 mg Diphenhydramine HCl (Diphenhydramine Hcl 12.5 Mg/5 Ml Liquid) 50 mg PO BEDTIME PRN PRN Reason: Sleep Doxepin HCl (Doxepin Hcl 25 Mg Capsule) 50 mg PO BEDTIME [facility] Last Admin: 10/09/24 20:22 Dose: 50 mg Folic Acid (Folic Acid 1 Mg Tablet) 1 mg PO DAILY [facility] Last Admin: 10/10/24 08:29 Dose: 1 mg Gabapentin (Gabapentin 600 Mg Tablet) 600 mg PO TID [facility] Last Admin: 10/10/24 14:48 Dose: 600 mg Guaifenesin (Guaifenesin 100 Mg/5 Ml 5 Ml Liquid) 5 ml PO Q6H PRN PRN Reason: Cough Last Admin: 10/07/24 22:24 Dose: 5 ml Hydroxyzine HCl (Hydroxyzine Hcl 25 Mg Tablet) 25 mg PO Q6H PRN PRN Reason: mild anxiety Last Admin: 10/10/24 08:30 Dose: 25 mg Lamotrigine (Lamotrigine 25 Mg Tablet) 75 mg PO BEDTIME ELIZABETH Last Admin: 10/09/24 20:21 Dose: 75 mg Lidocaine/Diphenhydr/Alum/Mg/Simeth (Mag&Al/Sim/Diphenhyd/Lidocaine 10 Ml Oral.Susp) 10 ml PO Q6H PRN; Protocol PRN Reason: Mouth Sore Pain Last Admin: 10/10/24 09:53 Dose: 10 ml Lorazepam (Lorazepam 1 Mg Tablet) 1 mg PO TID PRN PRN Reason: Anxiety Last Admin: 10/10/24 14:52 Dose: 1 mg Magnesium Hydroxide (Milk Of Magnesia 30 Ml Oral.Susp) 30 ml PO DAILY PRN PRN Reason: Constipation Multivitamins/Vitamin C (Multivitamin Tablet) 1 tab PO DAILY [facility] Last Admin: 10/10/24 08:29 Dose: 1 tab Nicotine Polacrilex (Nicotine Polacrilex 2 Mg Gum) 4 mg BUCCAL Q2H PRN PRN Reason: Nicotine Cravings Omeprazole (Omeprazole 40 Mg Capsule.Dr) 40 mg PO DAILY@0630 [facility] Last Admin: 10/10/24 05:42 Dose: 40 mg Prazosin HCl (Prazosin Hcl 5 Mg Capsule) 5 mg PO BEDTIME [facility]; Protocol Last Admin: 10/09/24 20:21 Dose: 5 mg Sucralfate (Sucralfate 1 Gm Tablet) 1 gm PO BID [facility] Last Admin: 10/10/24 08:29 Dose: 1 gm Thiamine HCl (Thiamine Hcl 100 Mg Tablet) 100 mg PO DAILY [facility] Last Admin: 10/10/24 08:30 Dose: 100 mg Trazodone HCl (Trazodone Hcl 50 Mg Tablet) 150 mg PO BEDTIME [facility] Last Admin: 10/09/24 20:21 Dose: 150 mg Allergies Allergies Allergy/AdvReac Type Severity Reaction Status Date / Time ibuprofen AdvReac Stomach Verified 10/05/24 11:28 Upset morphine AdvReac Gastrointestinal Verified 10/05/24 11:28 Upset bees Allergy Severe Anaphylaxis Uncoded 08/23/24 02:54 Assessment & Plan Assessment & Plan (1) Bipolar disorder: Status: Acute Code(s): F31.9 - Bipolar disorder, unspecified (2) PTSD (post-traumatic stress disorder): Status: Acute Code(s): F43.10 - Post-traumatic stress disorder, unspecified (3) Cocaine use: Status: Acute Code(s): F14.90 - Cocaine use, unspecified, uncomplicated (4) Alcohol abuse: Status: Acute Code(s): F10.10 - Alcohol abuse, uncomplicated Plan Patient is a 44-year-old female with history of bipolar disorder, PTSD, cocaine use disorder and alcohol use disorder who was brought in by ambulance to [facility] ER due to overdosing on Ativan secondary to increased depression. Plan: CV 15 minute safety checks Continue home medications [facility] protocol Obtain collateral Referral to outpatient therapist Encourage groups Discharge planning 10/09: Laying in bed sleeping most of morning. Pt reports feeling better than admission; continues to report headache and anxiety from withdrawal. DC CIWA protocol. Restart home Ativan 1mg PO TID PRN. Pt reports she spoke with her who would like her to return home. She denies SI/HI/VH/AH. 3 day up on 10/11/24. 10/10: Patient reports feeling well ; pt stated, I'm focused on remaining sober. I plan on going to AA. My and I talked about no more of the cocaine . denies SI/HI/VH/AH. 3 day up on 10/11/24. pt reports she plans on following up with her outpatient providers. Patient educated on: diagnosis, medication risk/benefits and therapeutic strategies Reason for continued inpatient stay Substantial Risk for: stable for discharge Time Spent With Patient Time: Total time managing care of this patient today _20___ minutes.
[2024-10-10 19:44] VITALS: BP 114/73; PULSE 89; RESP 18; TEMP 36.7; O2SAT 98
[2024-10-10] MEDS: traZODone HCL 50 MG TABLET 150 MG PO (20:13)
[2024-10-10] MEDS: lamoTRIgine 25 MG TABLET 75 MG PO (20:14)
[2024-10-10] MEDS: ARIPiprazole 10 MG TABLET PO (20:14)
[2024-10-10] MEDS: Magnesium Hydrox/Alum Hydrox 30 ML ORAL.SUSP PO (20:15)
[2024-10-10] MEDS: Prazosin HCL 5 MG CAPSULE PO (20:15)
[2024-10-10] MEDS: Doxepin HCl 25 MG CAPSULE 50 MG PO (20:15)
[2024-10-10] MEDS: Benzocaine 20 % Oral Gel 9 GM TUBE 1 APPL MUCOUS MEM (21:02)
[2024-10-11] MEDS: Acetaminophen 325 MG TABLET 650 MG PO ×2 (00:59→10:16)
[2024-10-11] MEDS: LORazepam 1 MG TABLET PO (05:13)
[2024-10-11] MEDS: Mag&Al/Sim/Diphenhyd/Lidocaine 10 ML ORAL.SUSP PO (05:15)
[2024-10-11] MEDS: Benzocaine 20 % Oral Gel 9 GM TUBE 1 APPL MUCOUS MEM (05:17)
[2024-10-11] MEDS: Omeprazole 40 MG CAPSULE.DR PO (06:56)
[2024-10-11] MEDS: Lipase/Prot/Amylase 12/38/60K CAPSULE.DR 3 CAP PO (08:06)
[2024-10-11 08:19] VITALS: BP 102/68; PULSE 100; RESP 16; TEMP 36.4; O2SAT 97
[2024-10-11] MEDS: Thiamine HCL 100 MG TABLET PO (08:45)
[2024-10-11] MEDS: Sucralfate 1 GM TABLET PO (08:45)
[2024-10-11] MEDS: buPROPion HCl XL 300 MG TAB.ER.24H PO (08:45)
[2024-10-11] MEDS: Gabapentin 600 MG TABLET PO (08:45)
[2024-10-11] MEDS: Multivitamin TABLET 1 TAB PO (08:45)
[2024-10-11] MEDS: Folic Acid 1 MG TABLET PO (08:45)
[2024-10-11] MEDS: Naloxone HCl Nasal TAKE HOME 4 MG SPRAY 8 MG NOSTRILALT (08:48)
--- NOTE | 2024-10-11 10:29 | P.DS_ITS ---
DS: Providers Provider Date of Service: 10/11/24 Date of admission: 10/07/24 15:35 Date of discharge: 10/11/24 Primary care physician: Unknown Physician Admitting clinician: Janey Colon Attending physician on admission: Gonzalo Oakes Attending physician on discharge: Gonzalo Oakes Discharging clinician: Janey Colon DS: Diagnosis Discharge Diagnosis (1) Bipolar disorder: Status: Acute (2) PTSD (post-traumatic stress disorder): Status: Acute (3) Cocaine use: Status: Acute (4) Alcohol abuse: Status: Acute DS: Medications Discharge Medications Home Medications: Home Medications ?Medication ?Instructions ?Recorded ?Confirmed aripiprazole 10 mg tablet 10 mg PO BEDTIME 05/21/21 10/05/24 doxepin 50 mg capsule 50 mg PO BEDTIME 05/21/21 10/05/24 gabapentin 600 mg tablet 600 mg PO TID 05/21/21 10/05/24 lorazepam 1 mg tablet 1 mg PO TID PRN Anxiety 05/21/21 10/05/24 pantoprazole 40 mg tablet,delayed 40 mg PO DAILY@0630 05/21/21 10/05/24 release bupropion HCl 300 mg 24 hr tablet, 300 mg PO DAILY 09/07/23 10/05/24 extended release folic acid 1 mg tablet 1 mg PO DAILY 09/07/23 10/05/24 lamotrigine 25 mg tablet 75 mg PO BEDTIME 09/07/23 10/05/24 [id number] 1 cap PO TID 08/23/24 10/05/24 36,000-114,000-180,000 unit capsule,delay rel (Creon) multivitamin 1 tab PO DAILY 08/23/24 10/05/24 trazodone 150 mg tablet 150 mg PO BEDTIME 08/23/24 10/05/24 diphenhydramine HCl 50 mg/30 mL 50 mg PO BEDTIME PRN Sleep 09/09/24 10/05/24 oral liquid (ZzzQuil) sucralfate 1 gram tablet 1 g PO BID 09/30/24 10/05/24 Previous Rx's ?Medication ?Instructions ?Recorded prazosin 5 mg capsule 5 mg PO BEDTIME 30 days #30 caps 02/18/20 omeprazole 40 mg capsule,delayed 40 mg PO DAILY #30 caps 09/30/24 release Mental Status Exam Mental Status Exam Narrative: Pt is alert and oriented; behavior is cooperative and calm; dressed in casual attire; mood is described as good ; eye contact appropriate; Speech is normal rate, volume and not pressured; thought process is organized; Thought content is on discharge; denies SI/HI/VH/AH. Data Data Completed and Pending Completed studies during hospitalization [Text1]: 10/05/24 10/05/24 10/05/24 12:34 12:49 13:13 WBC 8.6 RBC 4.23 Hgb 12.9 Hct 38.6 MCV 91.3 MCH 30.5 MCHC 33.4 RDW 14.2 Plt Count 255 MPV 9.6 Immature Gran % (Auto) 0.5 H Neut % (Auto) 59.5 Lymph % (Auto) 25.7 Tift % (Auto) 12.2 H Eos % (Auto) 1.4 Baso % (Auto) 0.7 Lymph # (Auto) 2.2 Tift # (Auto) 1.1 Eos # (Auto) 0.1 Baso # (Auto) 0.1 Abs Immat Gran (auto) 0.04 H Absolute Neuts (auto) 5.1 Absolute Nucleated RBC 0.000 Nucleated RBC % (auto) 0.0 Sodium 140 Potassium 3.8 Chloride 104 Carbon Dioxide 24 Anion Gap 16 BUN 3 L Creatinine 0.64 Estim Creat Clear Calc 112.7 Estimated GFR > 60 Random Glucose 126 H Estimat Average Glucose Hemoglobin A1c % Calcium 8.7 Magnesium 2.0 Total Bilirubin 1.0 Direct Bilirubin 0.5 AST 141 H ALT 51 H Alkaline Phosphatase 149 H Total Protein 6.1 L Albumin 3.5 Triglycerides Cholesterol LDL Cholesterol, Calc HDL Cholesterol Lipase 12 Urine Color Yellow Urine Appearance Clear Urine pH 8.0 Ur Specific [place] 1.010 Urine Protein Negative Urine Glucose (UA) Negative Urine Ketones Negative Urine Blood Negative Urine Nitrite Negative Ur Leukocyte Esterase Negative Urine RBC 0-2 Urine WBC 0-5 Ur Squamous Epith Cells 0-2 Urine Bacteria None Seen Hyaline Casts 0-2 Urine Test NEGATIVE Salicylates Urine Opiates Screen Not Detected Ur Buprenorphine Scrn Not Detected Ur Oxycodone Screen Not Detected Urine Methadone Screen Not Detected Urine Fentanyl Screen Not Detected Acetaminophen Ur Barbiturates Screen Not Detected Ur Phencyclidine Scrn Not Detected Ur Amphetamines Screen Not Detected U Benzodiazepines Scrn POSITIVE H Urine Cocaine Screen POSITIVE H U Marijuana (THC) Screen Not Detected Ethyl Alcohol 154 Influenza Type A (PCR) Influenza Type B (PCR) RSV RNA Qual (PCR) SARS-CoV-2 RNA (RT-PCR) 10/05/24 10/08/24 10/08/24 17:15 03:00 08:02 WBC RBC Hgb Hct MCV MCH MCHC RDW Plt Count MPV Immature Gran % (Auto) Neut % (Auto) Lymph % (Auto) Tift % (Auto) Eos % (Auto) Baso % (Auto) Lymph # (Auto) Tift # (Auto) Eos # (Auto) Baso # (Auto) Abs Immat Gran (auto) Absolute Neuts (auto) Absolute Nucleated RBC Nucleated RBC % (auto) Sodium 137 Potassium 3.9 Chloride 103 Carbon Dioxide 24 Anion Gap 14 BUN 8 L Creatinine 0.73 Estim Creat Clear Calc 106.3 Estimated GFR > 60 Random Glucose 133 H Estimat Average Glucose 105 Hemoglobin A1c % 5.3 Calcium 9.3 D Magnesium Total Bilirubin 1.4 H Direct Bilirubin AST 120 H ALT 44 H Alkaline Phosphatase 130 H Total Protein 6.6 Albumin 3.7 Triglycerides 165 H Cholesterol 156 LDL Cholesterol, Calc 87 HDL Cholesterol 36 L Lipase Urine Color Urine Appearance Urine pH Ur Specific [place] Urine Protein Urine Glucose (UA) Urine Ketones Urine Blood Urine Nitrite Ur Leukocyte Esterase Urine RBC Urine WBC Ur Squamous Epith Cells Urine Bacteria Hyaline Casts Urine Test Salicylates < 5.0 L Urine Opiates Screen Ur Buprenorphine Scrn Ur Oxycodone Screen Urine Methadone Screen Urine Fentanyl Screen Acetaminophen < 3 Ur Barbiturates Screen Ur Phencyclidine Scrn Ur Amphetamines Screen U Benzodiazepines Scrn Urine Cocaine Screen U Marijuana (THC) Screen Ethyl Alcohol Influenza Type A (PCR) NEGATIVE Influenza Type B (PCR) NEGATIVE RSV RNA Qual (PCR) NEGATIVE SARS-CoV-2 RNA (RT-PCR) NEGATIVE DS: Summary Hospital Course Hospital Course: Patient is a 44-year-old female with history of bipolar disorder, PTSD, cocaine use disorder and alcohol use disorder who was brought in by ambulance to [facility] due to overdosing on Ativan secondary to increased depression. Per crisis report, patient called 911 herself reporting she overdosed on Ativan. Patient reported she took 15 Ativan however has been reported that there were only 12 pills in the bottle. Patient reported she had an argument with her and took the 15 Ativan. She denied SI/HI/VH/AH. Patient's reports the patient is not properly caring for herself and isolating to her room. He reports he does not want her to return to the home after discharge due to making his life unpleasant. She denies history of SA. History of inpatient psychiatric hospitalizations. History of detox admissions. Most recently received treatment at [facility] a year ago. During admission assessment, patient presents alert and oriented x3. Calm and cooperative. Patient reports feeling anxious and depressed; patient stated, I overdosed on 15 Ativan. My stress level is high because of work. 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 We were arguing and he told me get the hell out and then I took the Ativan. He doesn't appreciate the work that I do . Patient reports she was feeling suicidal in the moment , but thinks about her parents and brother and regrets her actions. Patient stated, I realized I made a mistake and called 911 . denies SI/HI/VH/AH. Patient reports history of withdrawal seizures 13 years ago. She reports sleep and appetite are good. Patient reports she has been drinking 5-6 nips and 1 large mixed drink daily. She also reports using 2-3 lines of cocaine daily for the last few years . denies any other substance use. Patient reports the last time she can recall being sober was 2 years ago. utox positive for benzodiazepines, cocaine and alcohol. Denies history of SA/SIB. Patient reports the last time she experienced toby was 2 years ago on [facility]. She reports being medication compliant. Patient reports having outpatient psychiatric providers through the [facility] in [place], [place]; she would like referral to an outpatient therapist. History of detox admissions. She reports she is currently not interested in attending a substance abuse program. Plan: CV 15 minute safety checks Continue home medications CIWA protocol Obtain collateral Referral to outpatient therapist Encourage groups Discharge planning Laying in bed sleeping most of morning. Pt reports feeling better than admission; continues to report headache and anxiety from withdrawal. DC CIWA protocol. Restart home Ativan 1mg PO TID PRN. Pt reports she spoke with her who would like her to return home. She denies SI/HI/VH/AH. 3 day up on 10/11/24. Patient reports feeling well ; pt stated, I'm focused on remaining sober. I plan on going to AA. My and I talked about no more of the cocaine . denies SI/HI/VH/AH. 3 day up on 10/11/24. pt reports she plans on following up with her outpatient providers. Status at Discharge Cognitive/behavioral status at discharge: Patient has insight and demonstrates good judgment in terms of wanting to pursue treatment. Patient has a safety plan that includes presenting to the closest ER or calling 911 if feeling unsafe. Functional status at discharge: independent ambulation Overall status at discharge: patient is back to baseline Time Spent with Patient Time attestation: Total time managing care of this patient today _20___ minutes. Time spent: Less than 30 minutes Discharge Plan Discharge Anticipated Discharge Date/Time: 10/11/24 12:00 Patient Disposition: Home, Self-Care Discharge Diagnosis: Bipolar d/o, PTSD, cocaine use d/o, alcohol use d/o Referrals: [facility] [Provider Group] - 1 Week (10-10-24 [facility] was added to patients chart. Please call [phone] to schedule a follow up appt within 7-10 days of discharge. No release or PCP on file.) Discharge Medications: Continued prazosin 5 mg Capsule 5 mg PO BEDTIME 30 Days Qty: 30 0RF doxepin 50 mg capsule 50 mg PO BEDTIME gabapentin 600 mg tablet 600 mg PO TID aripiprazole 10 mg tablet 10 mg PO BEDTIME lorazepam 1 mg tablet 1 mg PO TID PRN (Reason: Anxiety) pantoprazole 40 mg Tablet,Delayed Release (Dr/Ec) 40 mg PO DAILY@0630 multivitamin Tablet 1 tab PO DAILY trazodone 150 mg tablet 150 mg PO BEDTIME Creon 36,000-114,000- 180,000 unit capsule,delayed release(DR/EC) 1 cap PO TID lamotrigine 25 mg tablet 75 mg PO BEDTIME folic acid 1 mg tablet 1 mg PO DAILY bupropion HCl 300 mg tablet extended release 24 hr 300 mg PO DAILY omeprazole 40 mg capsule,delayed release(DR/EC) 40 mg PO DAILY Qty: 30 0RF sucralfate 1 gram tablet 1 g PO BID Discontinued ZzzQuil 50 mg/30 mL Liquid 50 mg PO BEDTIME PRN (Reason: Sleep) Discharge Orders: Discharge Order (Routine); Ordered 10/11/24 Ordered By: Janey Colon Diet: Regular diet Activity on Discharge: As tolerated Stand Alone Forms: Patient Portal Discharge page, Community Support Print Language: Choose Not To Answer Care Plan Goals: Maintain mood and safe behaviors Take medications as prescribed Continue to pursue sobriety Practice coping skills Continue with outpatient providers and reach out to them as needed Health Concerns: Mood stability and behaviors Sobriety Plan of Treatment: Follow up with your PCP, psychiatric provider and other outpatient providers regarding above concerns Take medications as prescribed Assessment: Patient has insight and demonstrates good judgment in terms of wanting to pursue treatment. Patient has a safety plan that includes presenting to the closest ER or calling 911 if feeling unsafe. Discharge Date/Time: 10/11/24 12:15
== END 2024-10-11 12:15 | disposition home or self-care (01) | DRG 753 ==
LOC: HO.ED 10-07 14:37 → HO.PADLT16 10-07 15:40
PROVIDERS: Physician Assistant; Psychiatry & Neurology Psychiatry; Admitting Provider Registered Nurse; Emergency Provider Emergency Medicine; Responsible Provider Registered Nurse; Visit Provider Psychiatry & Neurology Psychiatry
DX: F31.9 Bipolar disorder, unspecified (principal); F10.239 Alcohol dependence with withdrawal, unspecified; F14.90 Cocaine use, unspecified, uncomplicated; T42.4X2A Poisoning by benzodiazepines, intentional self-harm, initial encounter; F43.10 Post-traumatic stress disorder, unspecified; Z20.822 Contact with and (suspected) exposure to COVID-19; Y90.6 Blood alcohol level of 120-199 mg/100 ml; Z79.899 Other long term (current) drug therapy
CPT/HCPCS: 0241U; 36415; 80048; 80053; 80061; 80076; 80143; 80179; 80307; 81001; 81025; 83036; 83690; 83735; 85025; 93005; 99285; J3360; S9485

== ENCOUNTER → 2024-10-05 11:51 | Outpatient (BNV) | payer OTHER, SELFPAY | PROVIDERS: Emergency Provider Emergency Medicine; Visit Provider Internal Medicine Cardiovascular Disease | DX: R94.31 Abnormal electrocardiogram [ECG] [EKG] (principal); R00.0 Tachycardia, unspecified | CPT/HCPCS: 93010 ==

== ENCOUNTER → 2024-10-07 15:35 | Outpatient (BNV) | payer OTHER, SELFPAY | PROVIDERS: Admitting Provider Registered Nurse; Emergency Provider Emergency Medicine; Responsible Provider Registered Nurse; Visit Provider Registered Nurse | DX: F31.4 Bipolar disorder, current episode depressed, severe, without psychotic features (principal); F43.11 Post-traumatic stress disorder, acute; F14.90 Cocaine use, unspecified, uncomplicated; F10.10 Alcohol abuse, uncomplicated | CPT/HCPCS: 99231; 99232; 99233 ==

== ENCOUNTER 2024-10-25 17:02 | Inpatient (IN) | payer OTHER, SELFPAY ==
--- NOTE | ~2024-10-25 | CT_ITS ---
CLINICAL HISTORY: abd pain CT abdomen and pelvis with contrast Comparison: CT/SR - CT ABDOMEN PELVIS WO IV CON - 09/30/24 12:18 EDT Findings: No consolidation or effusion. Liver is enlarged and there is diffuse fatty infiltration. The gallbladder, spleen, adrenal glands are unremarkable. Kidneys enhance symmetrically and there is no hydronephrosis. Diffuse coarse calcifications throughout the pancreas consistent with chronic pancreatitis. No peripancreatic fluid collections. No bowel obstruction, pneumoperitoneum, or pneumatosis. Fat containing right inguinal hernia. Appendix is not visualized and appears to be absent. No ascites. Urinary bladder is decompressed. Uterus and adnexa are unremarkable. No acute fracture. IMPRESSION: 1. Sequela of chronic pancreatitis, unchanged. Hepatomegaly with hepatic steatosis. This document has been electronically signed by: Kevin Esparza MD on 10/25/2024 22:22:08
[2024-10-25 17:24] VITALS: BP 127/86; BP 168/88; PULSE 94; RESP 106; TEMP 36.7; O2SAT 93; O2SAT 96; BMI 33.0
[2024-10-25 17:41] LABS: MANUAL DIFF FLAG NO
--- NOTE | 2024-10-25 17:43 | PC.NURSE ---
pt a&ox3, iv attempted but pt is difficult stick, able to draw some labs but line blew, pt states she usually needs US guided IV when she needs access. pt states she drank earlier this week mon/tues 5-6 nips each day along with twisted teas after a recent in the family. pt states she has been unable to keep po down and attempted to drink twisted tea today got 2 sips in and vomited.
[2024-10-25 17:50] LABS: Basophils Absolute Auto 0.1 X10*3/uL (0.0-0.2); Basophils Percent Auto 0.5 % (0-2); Eosinophils Absolute Auto 0.1 X10*3/uL (0.0-0.4); Eosinophils Percent Auto 1.1 % (0-4); Hematocrit 41.1 % (37.0-47.0); Hemoglobin 13.5 g/dl (12.0-16.0); Imm Gran Abs Auto 0.08 X10*3/uL (0.00-0.03); Imm Gran Pct Auto 0.6 % (0.0-0.4); Lymphocytes Absolute Auto 3.5 X10*3/uL (1.2-4.9); Lymphocytes Percent Auto 26.9 % (20-40); Mean Corpuscular HGB Conc 32.8 g/dl (31.0-35.0); Mean Corpuscular Hemoglobin 29.9 pg (27.0-33.0); Mean Corpuscular Volume 91.1 fL (80.0-98.0); Mean Platelet Volume 9.7 fL (9.4-12.3); Monocytes Absolute Auto 1.1 X10*3/uL (0.1-1.2); Monocytes Percent Auto 8.4 % (2-11); Neutrophils Absolute Auto 8.2 x10*3/uL (2.0-8.3); Neutrophils Percent Auto 62.5 % (45-73); Platelet Count 375 X10*3/uL (160-400); Red Blood Count 4.51 X10*6/uL (4.20-5.50); Red Cell Distribution Width 13.5 % (11.0-16.0); White Blood Count 13.1 X10*3/uL (4.8-10.8)
[2024-10-25 17:55] LABS: Alanine Aminotransferase 48 U/L (0-31); Albumin Level 4.1 g/dL (3.5-5.0); Alkaline Phosphatase 133 U/L (39-117); Anion Gap 20 (12-20); Aspartate Amino Transferase 117 U/L (5-31); Bilirubin Direct 0.2 mg/dL (0.0-0.5); Bilirubin Total 0.5 mg/dL (0.0-1.0); Blood Urea Nitrogen < 3 mg/dL (9-16); Calcium 9.6 mg/dL (8.4-10.2); Carbon Dioxide 26 mmol/L (22-29); Chloride 96 mmol/L (96-108); Creatinine Clr Calc Pharmacy 112.8; Estimated Glomerular Filt Rate > 60; Glucose Random 140 mg/dL (60-115); Lipase 8 U/L (8-78); Potassium 3.9 mmol/L (3.3-5.1); Sodium 138 mmol/L (135-145); Total Protein 7.2 g/dL (6.5-8.0)
--- NOTE | 2024-10-25 18:08 | ED.GENADULT ---
HPI - General Adult General Chief complaint: Abdominal Pain Stated complaint: abdominal pain and vomiting,etoh Time Seen by Provider: 10/25/24 18:06 Source: patient Mode of arrival: ambulatory Limitations: no limitations History of Present Illness ED Provider: Freya Phillips PA-C HPI narrative: Patient is a 44 year old assigned female at with a history of alcohol use / abuse, bipolar disorder, cocaine use, chronic pancreatitis, and PTSD presenting to the emergency department today with nausea, vomiting, and upper left abdominal pain. Patient states that over the last 4 days she has had nausea, vomiting, left upper abdominal pain and is struggling to keep anything down by mouth. Patient denies any dizziness, lightheadedness, fever, chills, blurry vision, double vision, loss of vision, chest pain, difficulty breathing, shortness of breath, back pain, night sweats, pain with urination, increased urinary frequency, increased urinary urgency, blood in her urine or stool, syncope or a near syncopal episode, recent trauma or falls, bowel incontinence, bladder incontinence, or any other complaints at this time. Onset (ago): day(s) (4) Relieving factors: none Exacerbating factors: none Associated symptoms: nausea/vomiting Treatments prior to arrival: none Related Data Home Medications ?Medication ?Instructions ?Recorded ?Confirmed aripiprazole 10 mg tablet 10 mg PO BEDTIME 05/21/21 10/05/24 doxepin 50 mg capsule 50 mg PO BEDTIME 05/21/21 10/05/24 gabapentin 600 mg tablet 600 mg PO TID 05/21/21 10/05/24 lorazepam 1 mg tablet 1 mg PO TID PRN Anxiety 05/21/21 10/05/24 pantoprazole 40 mg tablet,delayed 40 mg PO DAILY@0630 05/21/21 10/05/24 release bupropion HCl 300 mg 24 hr tablet, 300 mg PO DAILY 09/07/23 10/05/24 extended release folic acid 1 mg tablet 1 mg PO DAILY 09/07/23 10/05/24 lamotrigine 25 mg tablet 75 mg PO BEDTIME 09/07/23 10/05/24 [id number]-[id number] 1 cap PO TID 08/23/24 10/05/24 36,000-114,000-180,000 unit capsule,delay rel (Creon) multivitamin 1 tab PO DAILY 08/23/24 10/05/24 trazodone 150 mg tablet 150 mg PO BEDTIME 08/23/24 10/05/24 sucralfate 1 gram tablet 1 g PO BID 09/30/24 10/05/24 Previous Rx's ?Medication ?Instructions ?Recorded prazosin 5 mg capsule 5 mg PO BEDTIME 30 days #30 caps 02/18/20 omeprazole 40 mg capsule,delayed 40 mg PO DAILY #30 caps 09/30/24 release Allergies Allergy/AdvReac Type Severity Reaction Status Date / Time ibuprofen AdvReac Stomach Verified 10/25/24 17:27 Upset morphine AdvReac Gastrointestinal Verified 10/25/24 17:27 Upset bees Allergy Severe Anaphylaxis Uncoded 08/23/24 02:54 Review of Systems Constitutional: Constitutional: Reports no additional constitutional complaints, Denies chills, Denies fever(s) and Denies night sweats Eyes: Eyes: Reports no additional eye complaints, Denies blurry vision, Denies change in vision, Denies diplopia, Denies eye discharge, Denies loss of vision and Denies eye pain ENT: Denies dizziness Cardiovascular: Cardiovascular: Reports no additional cardiovascular complaints, Denies chest pain, Denies lightheadedness, Denies Loss of Consciousness and Denies dyspnea Respiratory: Respiratory: Reports no additional respiratory complaints and Denies dyspnea Gastrointestinal: Gastrointestinal: Reports no additional gastrointestinal complaints, Reports abdominal pain, Denies melena, Denies hematochezia, Denies change in bowel habits, Denies change in stool character, Reports nausea and Reports vomiting Genitourinary: Genitourinary: Denies hematuria, Denies urinary frequency, Denies dysuria, Denies urinary incontinence, Denies urinary hesitancy and Denies urinary urgency Musculoskeletal: Musculoskeletal: Reports no additional musculoskeletal complaints, Denies numbness and Denies tingling Neurologic: Denies dizziness, Denies loss of vision, Denies numbness and Denies tingling Psychiatric: Psychiatric: Reports no additional psychiatric complaints Endocrine: Endocrine: Reports no additional endocrine complaints Hematologic/Lymphatic: Hematologic/Lymphatic: Reports no additional hematologic/lymphatic complaints Allergic/Immunologic: Allergic/Immunologic: Reports no additional allergic/immunologic complaints PMFSH Past Medical History Attestation statement: The following information was validated with the patient. Source: old records reviewed and nursing notes reviewed Medical History Suicidal ideations Intentional overdose Chronic cough Chronic pancreatitis Cocaine use Alcohol abuse Obesity (BMI 30.0-34.9) Pancreatitis Back pain Alcohol use disorder, severe, dependence Gastritis Gastritis Endometriosis Constipation Anxiety Depression Bipolar disorder Suicidal behavior PTSD (post-traumatic stress disorder) Surgical History History of ankle surgery Social History Social History Household Members: Spouse Housing: House Do you presently have visiting nurse or other home services: No Alcohol intake: current Alcohol intake frequency: a few times a week Alcohol type: hard liquor Comment: pt reports no effects as of yet Patient Tobacco Use Status: Never used Tobacco Tobacco use type: Cigarette Smoked in Last 30 Days: No e-Cigarette/Vaping Use: Never Used Second Hand Smoke Exposure: No Use of substances other than those prescribed or required for medical reasons: No Substance Use Type: Crack/Cocaine Advance Directives: Yes Advance Directives on File: Yes Advance Directives Date on File: 09/07/23 Do you have a plan to hurt others: No Plan Patient : No service: No Sexual orientation: Straight/Heterosexual Physical Exam ED Vital Signs: Vital Signs - 24 hr 10/25/24 17:24 10/25/24 19:34 Temperature 98.0 F 98.1 F Pulse Rate 94 107 H Respiratory Rate 106 H 20 Blood Pressure 127/86 111/74 Pulse Oximetry 93 98 Oxygen Delivery Method Room Air Room Air BMI result Body Mass Index 33.0 Const General: cooperative, no acute distress, alert and awake Nutritional Appearance: well nourished Orientation/consciousness: patient oriented x3 HENMT Head: Yes normal to inspection and Yes atraumatic Ears: hearing grossly normal bilaterally and external ears normal General nose exam: Normal external nose present, no nasal discharge noted and no epistaxis Face and sinus: Yes normal facial exam, No abrasion and No laceration Mouth: Normal oral and palatal mucosa present, no drooling and no muffled voice Eyes General: appearance normal, both eyes and all related structures Periorbital: periorbital findings normal Eyelids: Yes eyelids normal Conjunctivae: conjunctivae normal Pupils: Equal, round and reactive pupils present EOM: EOMs intact bilaterally Neck Neck: Yes normal visual inspection, Yes full ROM and Yes no lymphadenopathy Resp Effort & Inspection: normal respiratory effort and able to speak in complete sentences Neuro General: patient oriented x3, moves all extremities and CN's II-XI intact bilaterally Cranial nerves: Yes Equal, round and reactive pupils present Cognition (Neuro): normal cognition Extrem General: Yes normal to inspection, Yes full ROM and Yes capillary refill normal Psych Appearance: grossly normal Mental Status: mental status grossly normal Affect: normal affect Attitude: cooperative Thought process: Normal thought process present Thought content: Normal thought content present Insight: Good insight present (Psych) Medications Administered Discontinued Medications Generic Name Dose Route Start Last Admin Trade Name Freq PRN Reason Stop Dose Admin Hydromorphone HCl 1 mg 10/25/24 18:14 10/25/24 18:32 Hydromorphone Hcl 1 Mg/Ml Syringe IVPUSH 10/25/24 18:15 1 mg ONCE ONE Administration Protocol Hydromorphone HCl 1 mg 10/25/24 20:51 10/25/24 21:22 Hydromorphone Hcl 1 Mg/Ml Syringe IVPUSH 10/25/24 20:52 1 mg ONCE ONE Administration Protocol Sodium Chloride 1,000 mls @ 999 mls/hr 10/25/24 18:15 10/25/24 19:26 Ns IV 10/25/24 19:15 Infused .Q1H1M ELIZABETH Infusion Iohexol 100 ml 10/25/24 19:58 10/25/24 19:59 Iohexol 350 Mg/Ml 100 Ml Infus..Btl IV 10/25/24 19:59 100 ml ONCE ONE Administration Metoclopramide HCl 10 mg 10/25/24 18:14 10/25/24 18:32 Metoclopramide Hcl 10 Mg/2 Ml Vial IVPUSH 10/25/24 18:15 10 mg ONCE ONE Administration Metoclopramide HCl 10 mg 10/25/24 20:51 10/25/24 21:22 Metoclopramide Hcl 10 Mg/2 Ml Vial IVPUSH 10/25/24 20:52 10 mg ONCE ONE Administration Pantoprazole Sodium 40 mg 10/25/24 18:13 10/25/24 18:32 Pantoprazole Sodium 40 Mg/10 Ml Vial IVPUSH 10/25/24 18:14 40 mg ONCE ONE Administration Medical Decision Making Medical Decision Making MDM Narrative: Patient is a 44 year old assigned female at with a history of alcohol use / abuse, bipolar disorder, cocaine use, chronic pancreatitis, and PTSD presenting to the emergency department today with nausea, vomiting, and upper left abdominal pain. Patient's physical exam showed a vomiting individual but otherwise unremarkable. Patient's blood work showed a mildly elevated WBC count of 13.1 but otherwise unremarkable. Patient's CT abdomen/pelvis showed chronic pancreatitis. I explained my physical exam findings as well as all test results to the patient. I answered all questions asked by the patient. Patient received IV Dilaudid and reglan which she stated helped her symptoms some but the pain and vomiting persisted. Patient began on phenobarb protocol for alcohol withdrawal. Given the patient's intractable nausea, vomiting, and abdominal pain as well as acute alcohol withdrawal - I spoke with the hospitalist team who agreed to hospital admission. Patient verbalized agreement and understanding with this treatment plan and admission. Differential Diagnosis Differential Diagnoses: The differential diagnosis associated with the presentation includes Abdominal pain Intractable abdominal pain Intractable nausea / vomiting Acute on chronic pancreatitis Admission/Observation Consideration of admission/observation: Escalation of care including admission/observation considered Patient admitted as noted in the MDM Rationale portion of this note. Consult Healthcare Provider Management of the patient was discussed with: Hospitalist (agreed to admission as noted in the MDM Rationale portion of this note.) Lab Data [facility] Lab Attestation statement: I reviewed the patient's lab results. My interpretation of these results are in the MDM Rationale portion of this note. 10/25/24 17:37 10/25/24 17:37 Labs: Lab Results 10/25/24 10/25/24 Range/Units 17:37 18:26 WBC 13.1 H (4.8-10.8) X10*3/uL RBC 4.51 (4.20-5.50) X10*6/uL Hgb 13.5 (12.0-16.0) g/dl Hct 41.1 (37.0-47.0) % MCV 91.1 (80.0-98.0) fL MCH 29.9 (27.0-33.0) pg MCHC 32.8 (31.0-35.0) g/dl RDW 13.5 (11.0-16.0) % Plt Count 375 D (160-400) X10*3/uL MPV 9.7 (9.4-12.3) fL Immature Gran % (Auto) 0.6 H (0.0-0.4) % Neut % (Auto) 62.5 (45-73) % Lymph % (Auto) 26.9 (20-40) % Thayer % (Auto) 8.4 (2-11) % Eos % (Auto) 1.1 (0-4) % Baso % (Auto) 0.5 (0-2) % Lymph # (Auto) 3.5 (1.2-4.9) X10*3/uL Thayer # (Auto) 1.1 (0.1-1.2) X10*3/uL Eos # (Auto) 0.1 (0.0-0.4) X10*3/uL Baso # (Auto) 0.1 (0.0-0.2) X10*3/uL Abs Immat Gran (auto) 0.08 H (0.00-0.03) X10*3/uL Absolute Neuts (auto) 8.2 (2.0-8.3) x10*3/uL Absolute Nucleated RBC 0.000 (0.0-0.012) X10*3/uL Nucleated RBC % (auto) 0.0 (0.0-0.2) /100WBC Sodium 138 (135-145) mmol/L Potassium 3.9 (3.3-5.1) mmol/L Chloride 96 (96-108) mmol/L Carbon Dioxide 26 (22-29) mmol/L Anion Gap 20 (12-20) BUN < 3 L (9-16) mg/dL Creatinine 0.69 (0.5-1.4) mg/dL Estim Creat Clear Calc 112.8 Estimated GFR > 60 Random Glucose 140 H (60-115) mg/dL Calcium 9.6 (8.4-10.2) mg/dL Total Bilirubin 0.5 (0.0-1.0) mg/dL Direct Bilirubin 0.2 (0.0-0.5) mg/dL AST 117 H (5-31) U/L ALT 48 H (0-31) U/L Alkaline Phosphatase 133 H (39-117) U/L Total Protein 7.2 (6.5-8.0) g/dL Albumin 4.1 (3.5-5.0) g/dL Lipase 8 (8-78) U/L Beta HCG, Quant 4 mIU/mL Ethyl Alcohol 136 mg/dL Independent Interpretation I performed an independent interpretation of an: CT Scan (abdomen/pelvis) Interpretation: My interpretation is in agreement with the radiologist's impression of this imaging study. Report Number: [id number]: Total DLP = 1063.00 mGy-cm CLINICAL HISTORY: abd pain CT abdomen and pelvis with contrast Comparison: CT/SR - CT ABDOMEN PELVIS WO IV CON - 09/30/24 12:18 EDT Findings: No consolidation or effusion. Liver is enlarged and there is diffuse fatty infiltration. The gallbladder, spleen, adrenal glands are unremarkable. Kidneys enhance symmetrically and there is no hydronephrosis. Diffuse coarse calcifications throughout the pancreas consistent with chronic pancreatitis. No peripancreatic fluid collections. No bowel obstruction, pneumoperitoneum, or pneumatosis. Fat containing right inguinal hernia. Appendix is not visualized and appears to be absent. No ascites. Urinary bladder is decompressed. Uterus and adnexa are unremarkable. No acute fracture. IMPRESSION: 1. Sequela of chronic pancreatitis, unchanged.Hepatomegaly with hepatic steatosis. This document has been electronically signed by: Kevin Esparza MD on 10/25/2024 22:22:08 Dictated By: Kevin Esparza MD Signed By: Electronically signed by Kevin Esparza MD 10/25/24 2222 Radiology Impression Discussion of test interpretation with radiology: I have reviewed the radiologist's reading. Critical Care Time Critical Care Time Critical Care Time: Yes Total Critical Care Time: 46 Attestation: I spent 46 minutes of Critical Care Time with this patient. This does not include time spent on separately reported billable procedures. Discharge Plan Discharge Clinical Impression: Intractable abdominal pain, Intractable vomiting, Pancreatitis, Alcohol withdrawal Patient Disposition: Admitted As Inpatient
[2024-10-25] MEDS: 0.9 % Sodium Chloride 1,000 ML 999 ML IV (18:25)
[2024-10-25] MEDS: HYDROmorphone HCl 1 MG/ML SYRINGE IVPUSH ×2 (18:32→21:22)
[2024-10-25] MEDS: Metoclopramide HCl 10 MG/2 ML VIAL IVPUSH ×2 (18:32→21:22)
[2024-10-25] MEDS: Pantoprazole Sodium 40 MG/10 ML VIAL IVPUSH (18:32)
--- NOTE | 2024-10-25 18:41 | PC.NURSE ---
US guided IV inserted, pt medicated per order, call doherty within reach, plan of care ongoing
[2024-10-25 18:42] LABS: Ethanol 136 mg/dL
[2024-10-25 18:58] LABS: HCG Quantitative 4 mIU/mL
[2024-10-25 19:34] VITALS: BP 111/74; PULSE 107; RESP 20; TEMP 36.7; O2SAT 98
[2024-10-25] MEDS: iohexoL 350 MG/ML 100 ML INFUS..BTL IV (19:59)
--- NOTE | 2024-10-25 22:32 | PM.IMHP ---
History of Present Illness Date of Service: 10/25/24 Chief Complaint: Abdominal pain 44-year-old female with a past medical history of polysubstance abuse, bipolar disorder, PTSD, alcohol use disorder, chronic abdominal pain, history of pancreatitis; presented to the hospital with a chief complaint of abdominal pain for about 4 days. Patient mentioned that she has been having epigastric pain for 4 days as nausea and vomiting. Mentions he has been drinking alcohol last drink was prior to coming to the hospital. Denies any chest pain or palpitations. Denies any urinary symptoms. Denies any numbness tingling or focal weakness. Review of all other systems is negative except mentioned above ER course: Per ER team, patient noted to have epigastric tenderness; CT abdomen pelvis showed chronic pancreatitis; alcohol level was in 05/15 2. Patient being given phenobarbital. [facility] Medical History Suicidal ideations Intentional overdose Chronic cough Chronic pancreatitis Cocaine use Alcohol abuse Obesity (BMI 30.0-34.9) Pancreatitis Back pain Alcohol use disorder, severe, dependence Gastritis Gastritis Endometriosis Constipation Anxiety Depression Bipolar disorder Suicidal behavior PTSD (post-traumatic stress disorder) Surgical History History of ankle surgery Social History Household Members: Spouse Housing: House Do you presently have visiting nurse or other home services: No Alcohol intake: current Alcohol intake frequency: a few times a week Alcohol type: hard liquor Comment: pt reports no effects as of yet Patient Tobacco Use Status: Never used Tobacco Tobacco use type: Cigarette Smoked in Last 30 Days: No e-Cigarette/Vaping Use: Never Used Second Hand Smoke Exposure: No Use of substances other than those prescribed or required for medical reasons: No Substance Use Type: Crack/Cocaine Advance Directives: Yes Advance Directives on File: Yes Advance Directives Date on File: 09/07/23 Do you have a plan to hurt others: No Plan Patient : No service: No Sexual orientation: Straight/Heterosexual Meds Allergies Allergy/AdvReac Type Severity Reaction Status Date / Time ibuprofen AdvReac Stomach Verified 10/25/24 17:27 Upset morphine AdvReac Gastrointestinal Verified 10/25/24 17:27 Upset bees Allergy Severe Anaphylaxis Uncoded 08/23/24 02:54 Active Medications: Current Medications Pharmacy Consult (Consult Rx Etoh Phenob Im/Po) 1 each MISCELLANE ONCE PRN; Protocol PRN Reason: Consult order Home Medications ?Medication ?Instructions ?Recorded ?Confirmed ?Last Taken ?Type aripiprazole 10 mg tablet 10 mg PO BEDTIME 05/21/21 10/05/24 09/28/24 History doxepin 50 mg capsule 50 mg PO BEDTIME 05/21/21 10/05/24 09/28/24 History gabapentin 600 mg tablet 600 mg PO TID 05/21/21 10/05/24 09/28/24 History lorazepam 1 mg tablet 1 mg PO TID PRN Anxiety 05/21/21 10/05/24 09/28/24 History pantoprazole 40 mg tablet,delayed 40 mg PO DAILY@0630 05/21/21 10/05/24 09/28/24 History release bupropion HCl 300 mg 24 hr tablet, 300 mg PO DAILY 09/07/23 10/05/24 09/28/24 History extended release folic acid 1 mg tablet 1 mg PO DAILY 09/07/23 10/05/24 09/28/24 History lamotrigine 25 mg tablet 75 mg PO BEDTIME 09/07/23 10/05/24 09/28/24 History rvuhnu-kevbyxgs-[id number] 1 cap PO TID 08/23/24 10/05/24 09/28/24 History 36,000-114,000-180,000 unit capsule,delay rel (Creon) multivitamin 1 tab PO DAILY 08/23/24 10/05/24 09/28/24 History trazodone 150 mg tablet 150 mg PO BEDTIME 08/23/24 10/05/24 09/28/24 History sucralfate 1 gram tablet 1 g PO BID 09/30/24 10/05/24 09/28/24 History Physical Exam Vital Signs and Narrative: Vital Signs: Last Vital Signs Temp 98.1 F 10/25/24 19:34 Pulse 107 H 10/25/24 19:34 Resp 20 10/25/24 19:34 BP 111/74 10/25/24 19:34 Pulse Ox 98 10/25/24 19:34 O2 Del Method Room Air 10/25/24 19:34 BMI result Body Mass Index 33.0 Gen: Appears be in no acute distress HEENT: NCAT, Moist mucosa. Pulmonary: Vesicular breath sounds, fair air entry CVS: Normal S1-S2 Abdomen: Tender in the epigastrium Extremities: Warm well perfused Neuro: Alert and awake. Results Labs 10/25/24 17:37 10/25/24 17:37 Labs: Laboratory Results - last 24 hr 10/25/24 10/25/24 17:37 18:26 MCV 91.1 MCH 29.9 MCHC 32.8 RDW 13.5 Plt Count 375 D MPV 9.7 Immature Gran % (Auto) 0.6 H Neut % (Auto) 62.5 Lymph % (Auto) 26.9 [place] % (Auto) 8.4 Eos % (Auto) 1.1 Baso % (Auto) 0.5 Lymph # (Auto) 3.5 [place] # (Auto) 1.1 Eos # (Auto) 0.1 Baso # (Auto) 0.1 Abs Immat Gran (auto) 0.08 H Absolute Neuts (auto) 8.2 Absolute Nucleated RBC 0.000 Nucleated RBC % (auto) 0.0 Anion Gap 20 Estim Creat Clear Calc 112.8 Estimated GFR > 60 Random Glucose 140 H Calcium 9.6 Total Bilirubin 0.5 Direct Bilirubin 0.2 AST 117 H ALT 48 H Alkaline Phosphatase 133 H Total Protein 7.2 Albumin 4.1 Lipase 8 Beta HCG, Quant 4 Ethyl Alcohol 136 Assessment and Plan (1) Acute on chronic pancreatitis: Status: Resolved Plan 44-year-old female with a past medical history of polysubstance abuse, bipolar disorder, PTSD, alcohol use disorder, chronic abdominal pain, history of pancreatitis; presented to the hospital with a chief complaint of abdominal pain for about 4 days. Admitted for following Acute on chronic pancreatitis: Gastritis: Pain control Gentle IV fluids Advanced diet as tolerated Alcohol use disorder: Monitor on CIWA protocol. Thiamine folate multivitamins. DVT prophylaxis: Lovenox Code status: Full code Quality Stroke Does the patient have a stroke diagnosis?: No VTE Prior VTE?: No VTE Risk Level:: Medical - moderate - high VTE Device Contraindication: Treatment Not Indicated VTE Drug Contraindication: N/A - Med Ordered
[2024-10-25 22:57] VITALS: BP 128/93; PULSE 103; RESP 20; TEMP 36.8; O2SAT 98
[2024-10-25] MEDS: PHENobarbitaL sodium 130 MG/ML IM ONCE 182 MG IM (23:15)
[2024-10-25] MEDS: Dextrose 5 % and 0.45 % NaCl 1,000 ML 100 ML IVCONT (23:15)
[2024-10-25] MEDS: ondansetron HCL 4 MG/2 ML VIAL IVPUSH (23:15)
[2024-10-25] MEDS: 0.9 % Sodium Chloride Flush 3 ML SYRINGE IVFLUSH (23:17)
[2024-10-26] VITALS (10 sets, daily range): BP systolic 104–150; BP diastolic 55–95; PULSE 83–103; RESP 14–22; TEMP 36.1–36.8; O2SAT 94–98; BMI 33.7
[2024-10-26] MEDS: PHENobarbitaL sodium 65 MG/ML VIAL Q3Hx2 137 MG IM ×2 (02:30→05:41)
[2024-10-26] MEDS: HYDROmorphone HCl 0.5 MG/0.5 ML SYRINGE IVPUSH ×5 (02:30→19:06)
--- NOTE | 2024-10-26 04:31 | MHC.EDTECH ---
Patient has been told multiple times that urine sample is needed. Urine cup placed next to her. This tech went into the patient's room again to ask for urine test, patient states I keep forgetting, I just went .
[2024-10-26] MEDS: Metoclopramide HCl 10 MG/2 ML VIAL 5 MG IVPUSH ×2 (04:33→10:37)
[2024-10-26 04:59] LABS: Appearance Urine Clear; Color Urine Dark Yellow; Glucose Urine UA Negative (Negative); Leukocyte Esterase Urine Negative (Negative); Nitrite Urine Negative (Negative); PH 6.5 (5.0-9.0); Specific Gravity - Urine >= 1.030 (1.005-1.025); UMIC TRIGGER UACC YES; Urine Blood Negative (Negative); Urine Ketones Trace mg/dL (Negative); Urine Protein 30 (1+) mg/dL (Neg-Trace)
[2024-10-26 05:38] LABS: Bacteria Urine 1+ (None Seen); Hyaline Casts Urine 0-2 /LPF (0-2); RBC Urine 0-2 /HPF (0-2); WBC Urine 0-5 /HPF (0-5)
[2024-10-26] MEDS: Pantoprazole Sodium 40 MG/10 ML VIAL IVPUSH (05:41)
[2024-10-26 06:36] LABS: MANUAL DIFF FLAG NO
[2024-10-26 06:45] LABS: Basophils Absolute Auto 0.1 X10*3/uL (0.0-0.2); Basophils Percent Auto 0.5 % (0-2); Eosinophils Absolute Auto 0.1 X10*3/uL (0.0-0.4); Eosinophils Percent Auto 0.5 % (0-4); Hematocrit 38.3 % (37.0-47.0); Hemoglobin 12.5 g/dl (12.0-16.0); Imm Gran Abs Auto 0.09 X10*3/uL (0.00-0.03); Imm Gran Pct Auto 0.9 % (0.0-0.4); Lymphocytes Absolute Auto 1.9 X10*3/uL (1.2-4.9); Lymphocytes Percent Auto 17.9 % (20-40); Mean Corpuscular HGB Conc 32.6 g/dl (31.0-35.0); Mean Corpuscular Volume 91.8 fL (80.0-98.0); Mean Platelet Volume 9.9 fL (9.4-12.3); Monocytes Percent Auto 9.5 % (2-11); Neutrophils Absolute Auto 7.3 x10*3/uL (2.0-8.3); Neutrophils Percent Auto 70.7 % (45-73); Platelet Count 315 X10*3/uL (160-400); Red Blood Count 4.17 X10*6/uL (4.20-5.50); Red Cell Distribution Width 13.7 % (11.0-16.0); White Blood Count 10.3 X10*3/uL (4.8-10.8)
[2024-10-26 07:05] LABS: Alanine Aminotransferase 42 U/L (0-31); Albumin Level 3.9 g/dL (3.5-5.0); Alkaline Phosphatase 118 U/L (39-117); Anion Gap 19 (12-20); Aspartate Amino Transferase 84 U/L (5-31); Bilirubin Total 0.8 mg/dL (0.0-1.0); Blood Urea Nitrogen 4 mg/dL (9-16); Calcium 8.6 mg/dL (8.4-10.2); Carbon Dioxide 24 mmol/L (22-29); Chloride 100 mmol/L (96-108); Creatinine Clr Calc Pharmacy 116.2; Estimated Glomerular Filt Rate > 60; Glucose Random 146 mg/dL (60-115); Sodium 139 mmol/L (135-145); Total Protein 6.6 g/dL (6.5-8.0)
--- NOTE | 2024-10-26 08:22 | PHA.MEDREC ---
Pharmacy Consult ? Medication Reconciliation Pharmacy has completed the medication reconciliation. Spoke with patient to confirm medications. She is no longer taking sucralfate. She last took her medications 3 days ago.
--- NOTE | 2024-10-26 08:30 | P.PNIM_ITS ---
Subjective Subjective Date of Service: 10/26/24 Interval History: Seen and follow up for pancreatitis Interval history: Still with abdominal pain and nausea. No ongoing vomiting. Tolerating clears. IVF running. Reports had not consumed alcohol in months but father committed suicide so relapsed. No w/d symptoms except nausea likely r/t pancreatitis Review of Systems Review of Systems: Yes all other systems are reviewed and are negative Physical Exam 2 Vital Signs: Vital Signs: Last Vital Signs Temp 97.6 F 10/26/24 05:51 Pulse 83 10/26/24 05:51 Resp 16 10/26/24 06:34 BP 141/89 H 10/26/24 05:51 Pulse Ox 94 10/26/24 05:51 O2 Del Method Room Air 10/26/24 05:51 BMI result Body Mass Index 33.0 Constitutional - Awake and Alert, No apparent distress Eyes - PERRLA, EOMI Cardiovascular - S1S2, RRR, No edema Respiratory - Normal lung expansion, Normal respiratory effort, No respiratory distress, CTA bilaterally Gastrointestinal - some ttp upper abd. ND; +BS; No rebound or guarding Extremities - no calf tenderness bilaterally, no swelling Skin - Warm/Dry Neurological - Alert & oriented x3 Psychological - Appropriate affect Objective Data Active Medications Acetaminophen (Acetaminophen 325 Mg Tablet) 650 mg PO Q6H PRN PRN Reason: Pain, Mild 1-3,fever,headache Calcium Carbonate (Calcium Carbonate 750 Mg Tab.Chew) 750 mg PO Q4H PRN PRN Reason: Heartburn Enoxaparin Sodium (Enoxaparin Sodium 40 Mg/0.4 Ml Syringe) 40 mg SUBCUT Q24H [facility] Last Admin: 10/25/24 23:16 Dose: Not Given Documented By: VEENA Non-Admin Reason: Patient Refused Folic Acid (Folic Acid 1 Mg Tablet) 1 mg PO DAILY [facility] Stop: 10/29/24 08:59 Hydromorphone HCl (Hydromorphone Hcl 0.5 Mg/0.5 Ml Syringe) 0.5 mg IVPUSH Q4H PRN; Protocol PRN Reason: Pain, Severe (Pain Scale 7-10) Last Admin: 10/26/24 06:34 Dose: 0.5 mg Documented By: VEENA Dextrose/Sodium Chloride (D51/2ns) 1,000 mls @ 100 mls/hr IVCONT .Q10H [facility] Last Admin: 10/25/24 23:15 Dose: 100 mls/hr Documented By: VEENA Magnesium Hydroxide (Milk Of Magnesia 30 Ml Oral.Susp) 30 ml PO DAILY PRN PRN Reason: Constipation Melatonin (Melatonin 3 Mg Tablet) 6 mg PO BEDTIME PRN PRN Reason: Insomnia Metoclopramide HCl (Metoclopramide Hcl 10 Mg/2 Ml Vial) 5 mg IVPUSH Q6H PRN PRN Reason: Nausea and Vomiting Last Admin: 10/26/24 04:33 Dose: 5 mg Documented By: VEENA Multivitamins/Vitamin C (Multivitamin Tablet) 1 tab PO DAILY [facility] Stop: 10/29/24 08:59 Pantoprazole Sodium (Pantoprazole Sodium 40 Mg/10 Ml Vial) 40 mg IVPUSH DAILY@0630 [facility] Last Admin: 10/26/24 05:41 Dose: 40 mg Documented By: VEENA Pharmacy Consult (Consult Rx Etoh Phenob Im/Po) 1 each MISCELLANE ONCE PRN; Protocol PRN Reason: Consult order Phenobarbital (Phenobarbital 15 Mg Tablet) 45 mg PO BID [facility] Stop: 10/27/24 21:01 Phenobarbital (Phenobarbital 30 Mg Tablet) 30 mg PO BID [facility] Stop: 10/29/24 21:01 Phenobarbital (Phenobarbital 30 Mg Tablet) 30 mg PO DAILY [facility] Stop: 10/31/24 09:01 Sodium Chloride (0.9 % Sodium Chloride Flush 3 Ml Syringe) 3 ml IVFLUSH QSHIFT [facility] Last Admin: 10/25/24 23:17 Dose: 3 ml Documented By: VEENA Thiamine HCl (Thiamine Hcl 100 Mg Tablet) 100 mg PO DAILY [facility] Stop: 10/29/24 08:59 Labs 10/26/24 06:02 10/26/24 06:02 Labs: Laboratory Results - last 24 hr 10/25/24 10/25/24 10/26/24 17:37 18:26 04:53 MCV 91.1 MCH 29.9 MCHC 32.8 RDW 13.5 Plt Count 375 D MPV 9.7 Immature Gran % (Auto) 0.6 H Neut % (Auto) 62.5 Lymph % (Auto) 26.9 [place] % (Auto) 8.4 Eos % (Auto) 1.1 Baso % (Auto) 0.5 Lymph # (Auto) 3.5 [place] # (Auto) 1.1 Eos # (Auto) 0.1 Baso # (Auto) 0.1 Abs Immat Gran (auto) 0.08 H Absolute Neuts (auto) 8.2 Absolute Nucleated RBC 0.000 Nucleated RBC % (auto) 0.0 Anion Gap 20 Estim Creat Clear Calc 112.8 Estimated GFR > 60 Random Glucose 140 H Calcium 9.6 Total Bilirubin 0.5 Direct Bilirubin 0.2 AST 117 H ALT 48 H Alkaline Phosphatase 133 H Total Protein 7.2 Albumin 4.1 Lipase 8 Beta HCG, Quant 4 Urine Color Dark Yellow Urine Appearance Clear Urine pH 6.5 Ur Specific [place] >= 1.030 H Urine Protein 30 (1+) H Urine Glucose (UA) Negative Urine Ketones Trace Urine Blood Negative Urine Nitrite Negative Ur Leukocyte Esterase Negative Urine RBC 0-2 Urine WBC 0-5 Ur Squamous Epith Cells 6-10 Urine Bacteria 1+ Hyaline Casts 0-2 Ethyl Alcohol 136 10/26/24 06:02 MCV 91.8 MCH 30.0 MCHC 32.6 RDW 13.7 Plt Count 315 MPV 9.9 Immature Gran % (Auto) 0.9 H Neut % (Auto) 70.7 Lymph % (Auto) 17.9 L [place] % (Auto) 9.5 Eos % (Auto) 0.5 Baso % (Auto) 0.5 Lymph # (Auto) 1.9 [place] # (Auto) 1.0 Eos # (Auto) 0.1 Baso # (Auto) 0.1 Abs Immat Gran (auto) 0.09 H Absolute Neuts (auto) 7.3 Absolute Nucleated RBC 0.000 Nucleated RBC % (auto) 0.0 Anion Gap 19 Estim Creat Clear Calc 116.2 Estimated GFR > 60 Random Glucose 146 H Calcium 8.6 D Total Bilirubin 0.8 Direct Bilirubin AST 84 H ALT 42 H Alkaline Phosphatase 118 H Total Protein 6.6 Albumin 3.9 Lipase Beta HCG, Quant Urine Color Urine Appearance Urine pH Ur Specific [place] Urine Protein Urine Glucose (UA) Urine Ketones Urine Blood Urine Nitrite Ur Leukocyte Esterase Urine RBC Urine WBC Ur Squamous Epith Cells Urine Bacteria Hyaline Casts Ethyl Alcohol Assessment and Plan (1) Pancreatitis: Status: Acute (2) Alcoholic gastritis: Status: Acute Plan 44-year-old female with a past medical history of polysubstance abuse, bipolar disorder, PTSD, alcohol use disorder, chronic abdominal pain, history of pancreatitis; presented to the hospital with a chief complaint of abdominal pain for about 4 days. Admitted for following Acute on chronic pancreatitis: Gastritis: Pain control Gentle IV fluids Advanced diet as tolerated Alcohol use disorder Monitor on [facility] protocol. Thiamine folate multivitamins. Bipolar disorder Continue abilify, wellbutrin, doxepin, lamictal, trazodone lorazepam prn PTSD prazosin Chronic pain gabapentin DVT prophylaxis: Lovenox Code status: Full code Required ongoing inpt stay at least 2 midnights for aggressive IVF and diet advancement with IV pain control Quality Stroke Does the patient have a stroke diagnosis?: No VTE Prior VTE?: No VTE Risk Level:: Medical - moderate - high VTE Device Contraindication: Treatment Not Indicated VTE Drug Contraindication: N/A - Med Ordered
[2024-10-26] MEDS: Lactated Ringers 1,000 ML 125 ML IVCONT ×2 (08:59→17:01)
[2024-10-26] MEDS: PHENobarbitaL 15 MG TABLET 45 MG PO ×2 (09:04→20:27)
--- NOTE | 2024-10-26 09:36 | MHC.EDTECH ---
this pct was standing in front of patients room , witnessed patient put her finger in her mouth to make herself throw up . i informed the RN and pct assigned to this patient . the patient also stated to her pct they just gave me the phenobarb and it made me throw up after just putting her finger in her mouth to make herself throw up .
[2024-10-26] MEDS: Gabapentin 600 MG TABLET PO ×3 (10:11→20:28)
[2024-10-26] MEDS: buPROPion HCl XL 300 MG TAB.ER.24H PO (10:11)
[2024-10-26] MEDS: Thiamine HCL 100 MG TABLET PO (10:12)
[2024-10-26] MEDS: Folic Acid 1 MG TABLET PO (10:12)
[2024-10-26] MEDS: Multivitamin TABLET 1 TAB PO (10:12)
[2024-10-26] MEDS: Prazosin HCL 5 MG CAPSULE PO (20:28)
[2024-10-26] MEDS: lamoTRIgine 25 MG TABLET 75 MG PO (20:28)
[2024-10-26] MEDS: ARIPiprazole 10 MG TABLET PO (20:28)
[2024-10-26] MEDS: traZODone HCL 50 MG TABLET 150 MG PO (20:28)
[2024-10-26] MEDS: Doxepin HCl 25 MG CAPSULE 50 MG PO (20:31)
[2024-10-26] MEDS: 0.9 % Sodium Chloride Flush 3 ML SYRINGE IVFLUSH (20:34)
[2024-10-27] VITALS (7 sets, daily range): BP systolic 99–116; BP diastolic 58–77; PULSE 78–112; RESP 17–20; TEMP 36.2–36.9; O2SAT 94–98
[2024-10-27] MEDS: Lactated Ringers 1,000 ML 125 ML IVCONT ×3 (00:06→16:17)
[2024-10-27] MEDS: HYDROmorphone HCl 0.5 MG/0.5 ML SYRINGE IVPUSH ×3 (00:06→08:09)
[2024-10-27] MEDS: Pantoprazole Sodium 40 MG/10 ML VIAL IVPUSH (05:52)
[2024-10-27] MEDS: PHENobarbitaL 15 MG TABLET 45 MG PO ×2 (08:07→20:05)
[2024-10-27] MEDS: Thiamine HCL 100 MG TABLET PO (08:08)
[2024-10-27] MEDS: Multivitamin TABLET 1 TAB PO (08:08)
[2024-10-27] MEDS: Gabapentin 600 MG TABLET PO ×3 (08:08→20:06)
[2024-10-27] MEDS: Folic Acid 1 MG TABLET PO (08:09)
[2024-10-27] MEDS: buPROPion HCl XL 300 MG TAB.ER.24H PO (08:09)
--- NOTE | 2024-10-27 11:05 | MHC.CM.PN ---
Pt. lives with her spouse, she does not use home health services or DME, PCP confirmed: Anai Lane, HCP on file and confirmed: Sharon. Pt. can arrange a ride home at [place], DCP: home, self care. CM to follow for DC needs.
--- NOTE | 2024-10-27 12:01 | P.PNIM_ITS ---
Subjective Subjective Date of Service: 10/27/24 Interval History: Seen in follow-up for alcoholic gastritis/pancreatitis Interval history: Symptomatic improvement, pain improved to 6-7/10. No ongoing nausea or vomiting. Tolerating full liquids. Looking to advance to regular diet. Denies any withdrawal symptoms Review of Systems Review of Systems: Yes all other systems are reviewed and are negative Physical Exam 2 Vital Signs: Vital Signs: Last Vital Signs Temp 98.5 F 10/27/24 11:43 Pulse 112 H 10/27/24 11:43 Resp 20 10/27/24 11:43 BP 109/73 10/27/24 11:43 Pulse Ox 96 10/27/24 11:43 O2 Del Method Room Air 10/27/24 11:43 BMI result Body Mass Index 33.7 Constitutional - Awake and Alert, No apparent distress Eyes - PERRLA, EOMI Cardiovascular - S1S2, RRR, No edema Respiratory - Normal lung expansion, Normal respiratory effort, No respiratory distress, CTA bilaterally Gastrointestinal - distended, NT, +BS; No rebound or guarding Extremities - no calf tenderness bilaterally, no swelling Skin - Warm/Dry Neurological - Alert & oriented x3 Psychological - Appropriate affect Objective Data Active Medications Acetaminophen (Acetaminophen 325 Mg Tablet) 650 mg PO Q6H PRN PRN Reason: Pain, Mild 1-3,fever,headache Aripiprazole (Aripiprazole 10 Mg Tablet) 10 mg PO BEDTIME [facility] Last Admin: 10/26/24 20:28 Dose: 10 mg Documented By: TOMMY Bupropion HCl (Bupropion Hcl Xl 300 Mg Tab.Er.24h) 300 mg PO DAILY [facility] Last Admin: 10/27/24 08:09 Dose: 300 mg Documented By: JAX Calcium Carbonate (Calcium Carbonate 750 Mg Tab.Chew) 750 mg PO Q4H PRN PRN Reason: Heartburn Doxepin HCl (Doxepin Hcl 25 Mg Capsule) 50 mg PO BEDTIME [facility] Last Admin: 10/26/24 20:31 Dose: 50 mg Documented By: TOMMY Enoxaparin Sodium (Enoxaparin Sodium 40 Mg/0.4 Ml Syringe) 40 mg SUBCUT Q24H [facility] Last Admin: 10/26/24 22:26 Dose: Not Given Documented By: TOMMY Non-Admin Reason: Patient Refused Folic Acid (Folic Acid 1 Mg Tablet) 1 mg PO DAILY [facility] Stop: 10/29/24 08:59 Last Admin: 10/27/24 08:09 Dose: 1 mg Documented By: JAX Folic Acid (Folic Acid 1 Mg Tablet) 1 mg PO DAILY [facility] Last Admin: 10/27/24 08:11 Dose: Not Given Documented By: JAX Non-Admin Reason: Duplicate Order Gabapentin (Gabapentin 600 Mg Tablet) 600 mg PO TID [facility] Last Admin: 10/27/24 08:08 Dose: 600 mg Documented By: JAX Hydromorphone HCl (Hydromorphone Hcl 0.5 Mg/0.5 Ml Syringe) 0.5 mg IVPUSH Q4H PRN; Protocol PRN Reason: Pain, Severe (Pain Scale 7-10) Last Admin: 10/27/24 08:09 Dose: 0.5 mg Documented By: JAX Lactated Ringer's (Lr) 1,000 mls @ 125 mls/hr IVCONT .Q8H [facility] Last Admin: 10/27/24 08:08 Dose: 125 mls/hr Documented By: JAX Lamotrigine (Lamotrigine 25 Mg Tablet) 75 mg PO BEDTIME [facility] Last Admin: 10/26/24 20:28 Dose: 75 mg Documented By: TOMMY Lorazepam (Lorazepam 1 Mg Tablet) 1 mg PO TID PRN PRN Reason: Anxiety Magnesium Hydroxide (Milk Of Magnesia 30 Ml Oral.Susp) 30 ml PO DAILY PRN PRN Reason: Constipation Melatonin (Melatonin 3 Mg Tablet) 6 mg PO BEDTIME PRN PRN Reason: Insomnia Metoclopramide HCl (Metoclopramide Hcl 10 Mg/2 Ml Vial) 5 mg IVPUSH Q6H PRN PRN Reason: Nausea and Vomiting Last Admin: 10/26/24 10:37 Dose: 5 mg Documented By: ORALIA Multivitamins/Vitamin C (Multivitamin Tablet) 1 tab PO DAILY [facility] Stop: 10/29/24 08:59 Last Admin: 10/27/24 08:08 Dose: 1 tab Documented By: JAX Multivitamins/Vitamin C (Multivitamin Tablet) 1 tab PO DAILY [facility] Last Admin: 10/27/24 08:11 Dose: Not Given Documented By: JAX Non-Admin Reason: Duplicate Order Non-Formulary Medication ([id number]-[id number] [Creon]) 1 cap PO TIDWM [facility] Pantoprazole Sodium (Pantoprazole Sodium 40 Mg/10 Ml Vial) 40 mg IVPUSH DAILY@0630 [facility] Last Admin: 10/27/24 05:52 Dose: 40 mg Documented By: TOMMY Pharmacy Consult (Consult Rx Etoh Phenob Im/Po) 1 each MISCELLANE ONCE PRN; Protocol PRN Reason: Consult order Phenobarbital (Phenobarbital 15 Mg Tablet) 45 mg PO BID [facility] Stop: 10/27/24 21:01 Last Admin: 10/27/24 08:07 Dose: 45 mg Documented By: JAX Phenobarbital (Phenobarbital 30 Mg Tablet) 30 mg PO BID [facility] Stop: 10/29/24 21:01 Phenobarbital (Phenobarbital 30 Mg Tablet) 30 mg PO DAILY [facility] Stop: 10/31/24 09:01 Prazosin HCl (Prazosin Hcl 5 Mg Capsule) 5 mg PO BEDTIME [facility]; Protocol Last Admin: 10/26/24 20:28 Dose: 5 mg Documented By: TOMMY Sodium Chloride (0.9 % Sodium Chloride Flush 3 Ml Syringe) 3 ml IVFLUSH QSHIFT [facility] Last Admin: 10/27/24 08:11 Dose: Not Given Documented By: JAX Non-Admin Reason: IV Running Thiamine HCl (Thiamine Hcl 100 Mg Tablet) 100 mg PO DAILY [facility] Stop: 10/29/24 08:59 Last Admin: 10/27/24 08:08 Dose: 100 mg Documented By: JAX Trazodone HCl (Trazodone Hcl 50 Mg Tablet) 150 mg PO BEDTIME [facility] Last Admin: 10/26/24 20:28 Dose: 150 mg Documented By: TOMMY Labs 10/26/24 06:02 10/26/24 06:02 Assessment and Plan (1) Pancreatitis: Status: Acute (2) Alcoholic gastritis: Status: Acute Plan 44-year-old female with a past medical history of polysubstance abuse, bipolar disorder, PTSD, alcohol use disorder, chronic abdominal pain, history of pancreatitis; presented to the hospital with a chief complaint of abdominal pain for about 4 days. Admitted for following Acute on chronic pancreatitis: Gastritis: PPI Pain control Agree IV fluids Tolerating full liquids. Discussed that given pain remains moderate-severe, recommend holding on advancement until pain level improves Alcohol use disorder No evidence of withdrawal Monitor on [facility] protocol. Thiamine folate multivitamins. Bipolar disorder Continue abilify, wellbutrin, doxepin, lamictal, trazodone lorazepam prn PTSD prazosin Chronic pain gabapentin DVT prophylaxis: Lovenox Code status: Full code Required ongoing inpt stay at least 2 midnights for aggressive IVF and diet advancement with IV pain control Quality Stroke Does the patient have a stroke diagnosis?: No VTE Prior VTE?: No VTE Risk Level:: Medical - moderate - high VTE Device Contraindication: Treatment Not Indicated VTE Drug Contraindication: N/A - Med Ordered
[2024-10-27] MEDS: HYDROmorphone HCl 0.5 MG/0.5 ML SYRINGE 0.25 MG IVPUSH ×3 (12:29→21:38)
[2024-10-27] MEDS: oxyCODONE HCl Immed Release 5 MG TABLET PO ×2 (14:51→20:06)
[2024-10-27] MEDS: 0.9 % Sodium Chloride Flush 3 ML SYRINGE IVFLUSH (15:55)
[2024-10-27] MEDS: LORazepam 1 MG TABLET PO (15:55)
[2024-10-27] MEDS: Lipase/Prot/Amylase 12/38/60K CAPSULE.DR 3 CAP PO (17:34)
[2024-10-27] MEDS: lamoTRIgine 25 MG TABLET 75 MG PO (20:05)
[2024-10-27] MEDS: Prazosin HCL 5 MG CAPSULE PO (20:05)
[2024-10-27] MEDS: ARIPiprazole 10 MG TABLET PO (20:06)
[2024-10-27] MEDS: Doxepin HCl 25 MG CAPSULE 50 MG PO (20:06)
[2024-10-27] MEDS: traZODone HCL 50 MG TABLET 150 MG PO (21:37)
[2024-10-28] MEDS: Lactated Ringers 1,000 ML 125 ML IVCONT ×2 (00:11→08:09)
[2024-10-28] MEDS: HYDROmorphone HCl 0.5 MG/0.5 ML SYRINGE 0.25 MG IVPUSH ×2 (02:29→07:34)
[2024-10-28 04:00] VITALS: BP 104/58; PULSE 96; RESP 17; TEMP 36.4; O2SAT 95
[2024-10-28] MEDS: oxyCODONE HCl Immed Release 5 MG TABLET PO ×2 (04:31→10:40)
[2024-10-28] MEDS: Pantoprazole Sodium 40 MG/10 ML VIAL IVPUSH (05:55)
[2024-10-28 07:17] VITALS: BP 110/70; PULSE 93; RESP 17; TEMP 36.6; O2SAT 98
[2024-10-28 07:34] VITALS: RESP 18
[2024-10-28] MEDS: Thiamine HCL 100 MG TABLET PO (07:35)
[2024-10-28] MEDS: buPROPion HCl XL 300 MG TAB.ER.24H PO (07:35)
[2024-10-28] MEDS: Multivitamin TABLET 1 TAB PO (07:35)
[2024-10-28] MEDS: Folic Acid 1 MG TABLET PO (07:35)
[2024-10-28] MEDS: Lipase/Prot/Amylase 12/38/60K CAPSULE.DR 3 CAP PO ×2 (07:35→11:49)
[2024-10-28 08:09] VITALS: RESP 18
[2024-10-28 08:27] LABS: Alanine Aminotransferase 45 U/L (0-31); Alkaline Phosphatase 104 U/L (39-117); Anion Gap 13 (12-20); Aspartate Amino Transferase 115 U/L (5-31); Bilirubin Direct 0.5 mg/dL (0.0-0.5); Bilirubin Total 0.9 mg/dL (0.0-1.0); Blood Urea Nitrogen 3 mg/dL (9-16); Calcium 8.3 mg/dL (8.4-10.2); Carbon Dioxide 27 mmol/L (22-29); Chloride 101 mmol/L (96-108); Creatinine Clr Calc Pharmacy 126.9; Estimated Glomerular Filt Rate > 60; Glucose Random 118 mg/dL (60-115); Potassium 3.5 mmol/L (3.3-5.1); Sodium 137 mmol/L (135-145); Total Protein 5.2 g/dL (6.5-8.0)
[2024-10-28] MEDS: PHENobarbitaL 30 MG TABLET PO (08:54)
[2024-10-28] MEDS: Gabapentin 600 MG TABLET PO ×2 (08:55→15:06)
[2024-10-28 11:20] VITALS: BP 110/73; PULSE 94; RESP 18; TEMP 36.7; O2SAT 98
[2024-10-28] MEDS: LORazepam 1 MG TABLET PO (11:50)
--- NOTE | 2024-10-28 14:12 | PM.DS ---
DS: Providers Provider Date of Service: 10/28/24 Date of admission: 10/25/24 22:30 Date of discharge: 10/28/24 Primary care physician: Anai Lane NP DS: Diagnosis Discharge Diagnosis (1) Pancreatitis: Status: Acute (2) Alcoholic gastritis: Status: Acute DS: Summary Hospital Course Hospital Course: Admission H&P: 4-year-old female with a past medical history of polysubstance abuse, bipolar disorder, PTSD, alcohol use disorder, chronic abdominal pain, history of pancreatitis; presented to the hospital with a chief complaint of abdominal pain for about 4 days. Patient mentioned that she has been having epigastric pain for 4 days as nausea and vomiting. Mentions he has been drinking alcohol last drink was prior to coming to the hospital. Denies any chest pain or palpitations. Denies any urinary symptoms. Denies any numbness tingling or focal weakness. Review of all other systems is negative except mentioned above ER course: Per ER team, patient noted to have epigastric tenderness; CT abdomen pelvis showed chronic pancreatitis; alcohol level was in 05/15 2. Patient being given phenobarbital. hosptial course: Patient admitted for acute on chronic pancreatitis and gastritis with alcohol use disorder. Pain has been improving, currently 4/10 and tolerating low-fat diet. She received IV fluids and pain management. She has been able to abstain from taking Dilaudid. Patient is requesting to go home. I discussed the importance of sobriety from alcohol completely. Continue PPI and oxycodone 5 mg every 8 hours as needed for moderate to severe pain Status at Discharge Functional status at discharge: independent ambulation Overall status at discharge: patient is progressing back to baseline Time Attestation Discharge Coordination Time (in mins): 45 Quality: Safe Use of Opioids Does Pt have an Active Cancer Diagnosis on the Problem List?: No Quality: Stroke Does the patient have a stroke diagnosis?: No Physical Exam Vital Signs: Vital Signs: Last Vital Signs Temp 98.0 F 10/28/24 11:20 Pulse 94 10/28/24 11:20 Resp 18 10/28/24 11:20 BP 110/73 10/28/24 11:20 Pulse Ox 98 10/28/24 11:20 O2 Del Method Room Air 10/28/24 11:20 BMI result Body Mass Index 33.7 General: AOx3, no acute distress Resp: CTA bilaterally CVS: S1, S2, RRR GI: +BS, NT, no distention Skin: Warm, dry Neuro: Cranial nerves II-XII grossly intact bilaterally. Motor grossly intact bilaterally Extremities: No LE edema Psych: Appropriate affect DS: Data Data Completed and Pending Completed studies during hospitalization [Text1]: Procedures Detoxification Services for Substance Abuse Treatment (09/07/23) Labs on day of discharge: Laboratory Results - last 24 hr 10/28/24 06:59 Hold Purple Top SEE NOTE Sodium 137 Potassium 3.5 Chloride 101 Carbon Dioxide 27 Anion Gap 13 BUN 3 L Creatinine 0.62 Estim Creat Clear Calc 126.9 Estimated GFR > 60 Random Glucose 118 H Calcium 8.3 L Total Bilirubin 0.9 Direct Bilirubin 0.5 AST 115 H ALT 45 H Alkaline Phosphatase 104 Total Protein 5.2 L Albumin 3.0 L Discharge Plan Discharge Anticipated Discharge Date/Time: 10/28/24 13:57 Patient Disposition: Home, Self-Care Discharge Diagnosis: Acute pancreatitis/gastritis Referrals: Anai Lane, [employer] [Primary Care Provider, Medical] - 1 Week Discharge Medications: New oxycodone 5 mg Tablet 5 mg PO Q8H PRN (Reason: Pain, Moderate(Pain Scale 4-6)) Qty: 10 0RF Rx Instructions: Partial Fill upon patient request. thiamine mononitrate (vit B1) 100 mg Tablet 100 mg PO DAILY Qty: 90 0RF Continued prazosin 5 mg Capsule 5 mg PO BEDTIME 30 Days Qty: 30 0RF doxepin 50 mg capsule 50 mg PO BEDTIME gabapentin 600 mg tablet 600 mg PO TID aripiprazole 10 mg tablet 10 mg PO BEDTIME lorazepam 1 mg tablet 1 mg PO TID PRN (Reason: Anxiety) pantoprazole 40 mg Tablet,Delayed Release (Dr/Ec) 40 mg PO DAILY@0630 multivitamin Tablet 1 tab PO DAILY trazodone 150 mg tablet 150 mg PO BEDTIME Creon 36,000-114,000- 180,000 unit capsule,delayed release(DR/EC) 1 cap PO TIDWM lamotrigine 25 mg tablet 75 mg PO BEDTIME folic acid 1 mg tablet 1 mg PO DAILY bupropion HCl 300 mg tablet extended release 24 hr 300 mg PO DAILY Discharge Orders: Discharge Order (Routine); Ordered 10/28/24 Ordered By: Namrata Singh Diet: Low fat, low cholesterol Activity on Discharge: No Restrictions Stand Alone Forms: Patient Portal Discharge page Print Language: Choose Not To Answer Care Plan Goals: Recovery from acute pancreatitis/gastritis Abstain from alcohol Health Concerns: Acute pancreatitis and gastritis, alcohol use disorder Plan of Treatment: Low-fat diet Abstain from alcohol use Oxycodone 5 mg every 8 hours as needed for [id number] pain Assessment: see above
--- NOTE | 2024-10-28 14:51 | MHC.CM.PN ---
PT MEDICALLU CLEARED FOR [place] HOME SELF CARE, PT WILL ARRANGE TRANSPORT
== END 2024-10-28 15:19 | disposition home or self-care (01) | DRG 282 ==
LOC: HO.ED 17:40 → HO.EDOVER 22:46 → HO.IMC 10-26 15:58
PROVIDERS: Physician Assistant; Physician Assistant Medical; Admitting Provider Hospitalist; Emergency Provider Emergency Medicine Emergency Medical Services; PCP Nurse Practitioner Adult Health; Visit Provider Physician Assistant
DX: K85.20 Alcohol induced acute pancreatitis without necrosis or infection (principal); F17.210 Nicotine dependence, cigarettes, uncomplicated; Y90.6 Blood alcohol level of 120-199 mg/100 ml; K86.0 Alcohol-induced chronic pancreatitis; F31.9 Bipolar disorder, unspecified; F43.10 Post-traumatic stress disorder, unspecified; F19.10 Other psychoactive substance abuse, uncomplicated; G89.29 Other chronic pain; K29.20 Alcoholic gastritis without bleeding; Z63.4 Disappearance and death of family member; Z71.6 Tobacco abuse counseling; Z79.899 Other long term (current) drug therapy
CPT/HCPCS: 36415; 74177; 80048; 80053; 80076; 80307; 81001; 81003; 82248; 83690; 84702; 85025; 99285; J1171; J2405; J2470; J2560; J2765; J7120; Q9967

== ENCOUNTER → 2024-10-25 18:12 | Outpatient (BNV) | payer OTHER, SELFPAY | PROVIDERS: Admitting Provider Hospitalist; PCP Nurse Practitioner Adult Health; Visit Provider Radiology Diagnostic Radiology | DX: K86.1 Other chronic pancreatitis (principal); K76.0 Fatty (change of) liver, not elsewhere classified; R16.0 Hepatomegaly, not elsewhere classified | CPT/HCPCS: 74177 ==

== ENCOUNTER → 2024-10-25 22:30 | Outpatient (BNV) | payer OTHER, SELFPAY | PROVIDERS: Admitting Provider Hospitalist; Emergency Provider Emergency Medicine Emergency Medical Services; PCP Nurse Practitioner Adult Health; Visit Provider Physician Assistant | DX: K85.90 Acute pancreatitis without necrosis or infection, unspecified (principal); K29.20 Alcoholic gastritis without bleeding | CPT/HCPCS: 99223; 99232; 99239 ==

== ENCOUNTER 2024-11-11 16:32 | Emergency (ER) | payer OTHER, SELFPAY ==
--- OUTSIDE RECORDS SUMMARY | 2024-11-07 23:59 | XMS_ITS | Continuity of Care Document ---
Author Organization [facility] ter Address [address] [place] [address]- Care Team Providers Care Cash Register Repairer Name Role Phone Domingo GALLEGOS, Anai Levi Primary Care Physician [place] [facility] 10/08/24 - 11/07/[address] [address] Encounter Type: Triage Allergies, Adverse Reactions, Alerts Substance Criticality Severity Reaction Reaction Severity Status ibuprofen Hx pancreatitis poss exacerbation Active acetaminophen Hx pancreatiti s poss exacerbation Active Zofran 1 - patient has o pposite effect - vomits more Active Bee Stings swelling Active Pollen watery eyes, and nose Active 1patient has opposite effect - vomits more Immunizations Given and Recorded Vaccine Date Status [...] tablet, Refills 1, Tot. Refills 1, Maintenance, 07/19/24 2:26:00 PM EDT, Route to Pharmacy Electronically, [facility] #[id number], 165, cm, 05/17/24 11:45:00 EST, Height, 93.1, kg, 05/17/24 11:45:00 EST, Dry Weight Start Date: 07/19/24 Stop Date: 01/15/25 Status: Ordered Quantity: 90.0 Unit: tablet Repeat number: 2 Albuterol (Eqv-ProAir HFA) 90 mcg/inh inhalation aerosol 2 puffs, Inhalation, Every 6 hours, # 8.5 Gm, 0 Refills, Maintenance, 02/17/23 6:07:00 PM EDT, [facility] #[id number], Partial fill upon patient request if the prescription is for a schedule II opioid drug., 2 puffs Inhalation Every 6 hours, 166, cm, 02/17/23 17:52:00 EDT, Height, 77, kg, 12/12/22 16:21:00 EDT, Dry Weight Start Date: 02/17/23 Status: Ordered Quantity: 8.5 Unit: g Repeat number: 1 albuterol CFC free 90 mcg/inh inhalation aerosol 2, puffs, Inhalation, Every 4 hours, PRN, # 8.5 Gm, Refills 1, Tot. Refills 1, Maintenance, 11/07/24 2:23:00 PM EDT, Aerosol, Route to Pharmacy Electronically, [id number], [facility] #[id number], 165, cm, 05/17/24 11:45:00 EST, Height, 93.1, kg, 05/17/24 11:45:00 EST, Dry Weight Start Date: 11/07/24 Stop Date: 01/06/25 Status: Ordered Quantity: 8.5 Unit: g Repeat number: 2 buPROPion 300 mg/24 hours (XL) oral tablet, extended release 1 tablet = 300 mg, By Mouth, Every 24 hours, # 90 tablet, 1 Refills, Maintenance, 07/19/24 2:27:00 PM EDT, [facility] #[id number], Partial fill upon patient request if the prescription is for a schedule II opioid drug., 165, cm, 05/17/24 11:45:00 EST, Height, 93.1, kg, 05/17/24 11:45:00 EST, Dry Weight Start Date: 07/19/24 Stop Date: 01/15/25 Status: Ordered Quantity: 90.0 Unit: tablet Repeat number: 2 Creon 36,000 units oral delayed release capsule 1 capsule, By Mouth, 3 times a day, # 270 capsule, 1 Refills, Maintenance, 07/19/24 2:27:00 PM EDT, [facility] #[id number], 1 capsule By Mouth 3 times a day,x90 days, 165, cm, 05/17/24 11:45:00 EST, Height, 93.1, kg, 05/17/24 11:45:00 EST, Dry Weight Start Date: 07/19/24 Stop Date: 01/15/25 Status: Ordered Quantity: 270.0 Unit: capsule Repeat number: 2 doxepin 50 mg oral capsule 1 capsule = 50 mg, By Mouth, Daily at bedtime, # 90 capsule, 1 Refills, Maintenance, 05/24/24 3:51:00 PM EST, Capsule, [facility]/pharmacy #[id number], 165, cm, 05/17/24 11:45:00 EST, Height, 93.1, kg, 05/17/24 11:45:00 EST, Dry Weight Start Date: 05/24/24 Stop Date: 11/20/24 Status: Ordered Quantity: 90.0 Unit: capsule Repeat number: 2 folic acid 1 mg oral tablet 1 mg, By Mouth, Daily, # 90 tablet, Refills 1, Tot. Refills 1, Maintenance, 05/24/24 3:52:00 PM EST,Route to Pharmacy Electronically, [facility]/pharmacy #[id number], Partial fill upon patient request if the prescription is for a schedule II opioid drug., 165, cm, 05/17/24 11:45:00 EST, Height, 93.1, kg, 05/17/24 11:45:00 EST, Dry Weight Start Date: 05/24/24 Stop Date: 11/20/24 Status: Ordered Quantity: 90.0 Unit: tablet Repeat number: 2 gabapentin 600 mg oral tablet 1 tablet = 600 mg, By Mouth, 3 times a day, # 270 tablet, 1 Refills, Maintenance, 07/19/24 2:27:00 PM EDT, Tablet, [facility] #[id number], 90 day supply, 165, cm, 05/17/24 11:45:00 EST, Height, 93.1, kg, 05/17/24 11:45:00 EST, Dry Weight Start Date: 07/19/24 Stop Date: 01/15/25 Status: Ordered Quantity: 270.0 Unit: tablet Repeat number: 2 lamotrigine 25 mg oral tablet 75 mg, 3, tablet, By Mouth, Daily at bedtime, # 270 tablet, Refills 1, Tot. Refills 1, Maintenance,07/19/24 2:27:00 PM EDT, Route to Pharmacy Electronically, [facility] #[id number], Partial fillupon patient request if the prescription is for a schedule II opioid drug., 165, cm, 05/17/24 11:45:00 EST, Height, 93.1, kg, 05/17/24 11:45:00 EST, Dry Weight Start Date: 07/19/24 Stop Date: 01/15/25 Status: Ordered Quantity: 270.0 Unit: tablet Repeat number: 2 LORazepam 1 mg oral tablet 1 tablet = 1 mg, By Mouth, 3 times a day, PRN as needed for anxiety, # 90 tablet, 3 Refills, Maintenance, 07/19/24 2:27:00 PM EDT, Tablet, [facility] #[id number], fill when due, 165, cm, 05/17/2510:45:00 EST, Height, 93.1, kg, 05/17/24 11:45:00 EST, Dry Weight Start Date: 07/19/24 Stop Date: 11/16/24 Status: Ordered Quantity: 90.0 Unit: tablet Repeat number: 4 multivitamin Multiple Vitamins oral tablet 1 tablet, By Mouth, Daily, # 90 tablet, 1 Refills, Maintenance, 11/14/23 8:09:00 AM EDT, Tablet, [id number], 1 tablet By Mouth Daily,x90 days, 165, cm, 08/31/23 14:35:00 EDT, Height, 89, kg, 08/30/23 1:34:00 EDT, Dry Weight Start Date: 11/14/23 Stop Date: 05/12/24 Status: Ordered Quantity: 90.0 Unit: tablet Repeat number: 2 pantoprazole 40 mg oral delayed release tablet 1 tablet, By Mouth, Daily, # 90 tablet, 1 Refills, Maintenance, 07/19/24 2:27:00 PM EDT, 165, cm, 05/17/24 11:45:00 EST, Height, 93.1, kg, 05/17/24 11:45:00 EST, Dry Weight Start Date: 07/19/24 Stop Date: 01/15/25 Status: Ordered Quantity: 90.0 Unit: tablet Repeat number: 2 prazosin 5 mg oral capsule 5 mg, 1, capsule, By Mouth, Daily at bedtime, # 90 capsule, Refills 1, Tot. Refills 1, Maintenance,07/19/24 2:27:00 PM EDT, Route to Pharmacy Electronically, [facility] #[id number], 165, cm, 05/17/24 11:45:00 EST, Height, 93.1, kg, 05/17/24 11:45:00 EST, Dry Weight Start Date: 07/19/24 Stop Date: 01/15/25 Status: Ordered Quantity: 90.0 Unit: capsule Repeat number: 2 traMADol 50 mg oral tablet 1 tablet = 50 mg, By Mouth, Every 6 hours, PRN for pain, PRN pain - pancreatitis, # 12 tablet, 0 Refills, Maintenance, 04/23/24 8:37:00 AM EST, Tablet, [facility], Partial fill upon patient request if the prescription is for a schedule II opioid drug., 165, cm, 04/20/24 2:41:00 EST, Height, 92.3, kg, 04/20/24 2:41:00 EST, Dry Weight Start Date: 04/23/24 Stop Date: 04/26/24 Status: Ordered Quantity: 12.0 Unit: tablet Repeat number: 1 traZODone 150 mg oral tablet 1 tablet = 150 mg, By Mouth, Daily at bedtime, # 90 tablet, 1 Refills, Maintenance, 07/19/24 2:28:00PM EDT, [facility] #[id number], Partial fill upon patient request if the prescription is for aschedule II opioid drug., 165, cm, 05/17/24 11:45:00 EST, Height, 93.1, kg, 05/17/24 11:45:00 EST, Dry Weight Start Date: 07/19/24 Stop Date: 01/15/25 Status: Ordered Quantity: 90.0 Unit: tablet Repeat number: 2 Problem List Condition Confirmation Course Effective Dates Status H ealth Status Informant Abnormal uterine bleeding Confirmed Active Gastritis Confirmed Active Alcohol dependence Confirmed Active Alcohol withdrawal-induced seizure 1 Confirmed Active Alcoholic liver disease Confirmed Active Alcohol use disorder Confirmed Active Attempted suicide - hanging Confirmed 06/27/19 Active Mass of right breast Confirmed Active Chronic low back pain Confirmed Active Chronic pancreatitis Confirmed Active Chronic pancreatitis due to chronic alcoholism Confirmed Active Depression Confirmed Active Endometriosis Confirmed Active Cold sore Confirmed Active Hyponatremia Confirmed Active Elevated liver function tests Confirmed Active Menometrorrhagia Confirmed Active Nicotine dependence Confirmed Active Obese class I Confirmed Active Sprain of ribs Confirmed Active 1Reports HX several times previously Social History Social History Type Response Tobacco Other: 3 a day. Toba interactive account manager user in household: Yes. Sex Sex Representation Female (finding) Patient Care team information Care Team Personnel Name: Gregoria Daley RN Position: [facility] RN Member Role: Primary Care Nurse Name: Elisa Lamar RN Position: [facility] RN Member Role: Primary Care Nurse Name: Thelma Beach RN Position: [facility] RN Member Role: Primary Care Nurse Name: Mich Quick RN Position: [facility] ED RN W/OE and Tasks Member Role: Primary Care Nurse Name: Zo Segal RN Position: [facility] AMB Nurse Member Role: Primary Care Nurse Name: Aziza Kuhn RN Position: [facility] RN Member Role: Primary Care Nurse Name: Rhoda German RN Position: [facility] RN Member Role: Primary Care Nurse Name: Antonia Mtz RN Position: [facility] RN Member Role: Primary Care Nurse Name: Carmina Fuentes RN Position: [facility] RN Member Role: Primary Care Nurse Name: Milla Emmanuel RN Position: [facility] SN RN Member Role: Primary Care Nurse Name: Carol Min MA Position: [facility] Amb Office Staff Member Role: Primary Care Nurse Name: Katt Ames [place] Position: [facility] Office Staff Member Role: Primary Care Nurse Name: Ashely Pacheco Position: [facility] RN Member Role: Primary Care Nurse Name: Elvia Pacheco RN Position: [facility] RN Member Role: Primary Care Nurse Name: Miri Espitia RN Position: [facility] AMB Nurse Member Role: Primary Care Nurse Name: Maksim Hunt III, RN Position: [facility] RN Member Role: Primary Care Nurse Name: Elisa Fields RN Position: [facility] RN Member Role: Primary Care Nurse Name: Anai Lane NP Position: [facility] PCO Associate Professional Member Role: PCP Address: [address] [place] [address]- Telecom: Name: Vidal Calderon RN Position: [facility] RN Member Role: Primary Care Nurse Name: Matt Richards RN Position: [facility] RN Member Role: Primary Care Nurse Name: Aron Mcginnis RN Position: [facility] SN RN Member Role: Primary Care Nurse Name: Natalia Plata RN Position: [facility] RN Member Role: Primary Care Nurse Name: Kacy Barnhart RN Position: [facility] RN Member Role: Primary Care Nurse Name: Guerline Ramirez RN Position: [facility] Onco RN Member Role: Primary Care Nurse Name: Fidencio Ann Position: [facility] RN Member Role: Primary Care Nurse Name: Vandana Muniz RN Position: [facility] RN Member Role: Primary Care Nurse Name: Ashlyn Cordova RN Position: [facility] Onco RN Member Role: Primary Care Nurse Name: Avery Rebolledo RN Position: [facility] RN Member Role: Primary Care Nurse Name: Andrew Adams RN Position: [facility] RN Member Role: Primary Care Nurse Care Team Related Persons Name: KORY NGO Name: TEVIN WILL Name: ALEX WILL Name: ALEX ROPER Insurance Providers Guarantor name: SIMA ROPER Health Plan Information #: 1 Payer: [facility] Payer Identifier: Member Number: [id number] Group Number: Subscriber Identifier: [id number] Relationship to Subscriber: self Coverage Type: MEDICAID Coverage Verification Date: NA Telecom: NA Address:
--- NOTE | ~2024-11-11 | CT_ITS ---
CLINICAL HISTORY: epigastric pain, hx chronic pancreatitis CT abdomen and pelvis with contrast Comparison: CT - CT ABDOMEN PELVIS W IV CON - 11/11/24 19:[address]/SR - CT ABDOMEN PELVIS W IV CON - 10/25/24 19:[address]/SR - CT ABDOMEN PELVIS WO IV CON - 09/30/24 12:18 EDT Findings: No consolidation at the lung bases. Unremarkable gallbladder and bladder. Hepatic steatosis. Hepatomegaly, measuring 21.5 cm in craniocaudal dimension. Pancreatic parenchymal calcifications with ductal dilatation and atrophy, the sequela of chronic pancreatitis. No peripancreatic stranding or fluid collection. Lobular contour of the kidneys could be secondary to scarring. The other solid organs are unremarkable. Underdistended distal esophagus. Trace gastroesophageal reflux, Also seen on the prior study. The previously seen small hiatal hernia is not as well appreciated on this exam. No bowel wall thickening or dilation. A normal appendix is identified. No aneurysm. No calcified atherosclerotic disease. No lymphadenopathy. No ascites. No acute osseous abnormality. Impression: No acute findings. Sequela of chronic pancreatitis. This document has been electronically signed by: Veronica Rasmussen MD on 11/11/2024 21:01:31
[2024-11-11 16:49] VITALS: BP 118/70; BP 124/74; PULSE 118; PULSE 99; RESP 19; TEMP 36.8; O2SAT 95; O2SAT 96
[2024-11-11 16:54] VITALS: BP 124/74; PULSE 99; RESP 19; TEMP 36.8; O2SAT 95
--- NOTE | 2024-11-11 17:07 | ECG_ITS ---
Test Reason : abd pain Blood Pressure : */* mmHG Vent. Rate : 110 BPM Atrial Rate : 110 BPM P-R Int : 126 ms QRS Dur : 74 ms QT Int : 336 ms P-R-T Axes : 71 78 76 degrees QTcB Int : [address] & T wave abnormality, consider anterior ischemia Abnormal ECG When compared with ECG of 05-Oct-2024 12:12, No significant change was found Referred By: Thania Stoddard Electronically Signed By: Dnailo Bradshaw
--- OUTSIDE RECORDS SUMMARY | 2024-11-11 17:12 | XMS_ITS | Data Portability ---
Author Organization [place] - [facility], [facility] Address [address] [place] [address] Care Team Providers Care Sales Assistants And Salespersons Name Role Phone DILLON MCKEON Primary Care [...] truck turned her right foot awkwardly. Using [facility], placed in a CAM boot. She has had continued pain in the lateral border of her right foot. She previously had a contralateral left fifth metatarsal ORIF. Past family, medical, social history and review of systems has been reviewed, updated and is located in the patient s chart. Examination: the patient is alert [...] resistance. X-rays ordered, obtained and reviewed at [facility] he views of the foot, ordered [...] been reviewed and is located in the patient s chart. PHYSICAL EXAM: Musculoskeletal: With boot removed, her incision is well-healed. Steri-Strips were removed. She has some dry flaky skin without infectious changes. There is appropriate incisional sensitivity and tenderness. Hardware is not prominent. She is distally neurovascularly intact. X-RAYS: Three standing views of the left foot were ordered, obtained and reviewed by me today at [facility], demonstrating interval healing of her fracture [...] Surgeries orthopaed ic surgery (SURG) 2024 025 [email or web address] [facility] [place], [address] [facility], [place], [address], 15:52:23 Imaging XR, foot, 3 or more view - RM 108-- RECHECK 3V FOOT WB 2024 025 [facility], [address], [place], [address], 5 19:44:38 XR, foot, 3 or more view - room 110 3V L foot 2024 025 stella [facility], [address], [place], [address], 5 15:37:27 Medication Orders tramadol 50 mg tablet 2024 025 [id number], [address] [place], [place], [id number], 5 10:55:43 Patient TargetsNo targets recorded. Patient InstructionsNo instructions recorded. Reason for Referral None Reported. Results Created Date Observation Date Name Description Value Unit Range Abnormal Flag Note LastModifiedBy Organization Detail LastModifiedTime 07/05/1907/05/2024 XR, foot, 3 or more view http:/ [email or web address] ?Encry pted=s hAaTro YD8dLq bEUv6g %2BXZw aYqtaq 0bqfl% 2Fg9IQ a4ajBk vP9nXo QUaueC m3YtLR FvZlgJ JJ8mAn HZtai3 2b9086 AC0Kqb XiMUqW vKiQtr MwF INTERFACE [facility] [address], [place], [address], 07/05/2024 14:19:22 07/05/19 25 07/05/2024 XR, foot, 3 or more view [email or web address] ?Encry pted=s hAaTro YD8dLq bEUv6g %2BXZw aYqtaq 0bqfl% 2Fg9IQ a4ajBk vP9nXo QUaueC m3YtLR FvZlgJ JJ8mAn HZtai3 4c7099 AC0Kqb XiMUqW vKiQtr MwF INTERFACE [facility] [address], [place], [address], 07/05/2024 14:19:24 Result Notes Documentation Provider Name and Address Organization Details Recorded Time Xr, Foot, 3 Or More View : [email or web address] Encrypted=bjJiHnvVX1hBifE Uv6g%3RNThjKnocl5xiwf%2Fg 3GGm2voUkfS1fLbSRhdmPz6Ow XRShQuoJDP6gUhPVdhi43e635 0WA8SmhCsBHyOxPbHsbAvY Not Available [facility] 07/05/2024 14:19: 23 Xr, Foot, 3 Or More View : [email or web address] Encrypted=psMbSzoQA0aSsiD Uv6g%8LZAldTrcxk7dtjw%2Fg 7OVc9vaReeJ0rBbSGxqrEt6Ar KWQmGvuMVB9hGgLQrqo38u766 2NG4CwcOzNKzPoDiGjxLpB Not Available [facility] 07/05/2024 14:19: 25 Problems Name Problem SNOMED Code Status Onset Date Resolution Date Notes Provider Name and Address Organization Details Recorded Time No complaints 450099727 Active Status : 'A'; Not Available [facility] 4 09:21:44 Problem Notes None recorded. Medical Equipment None Reported. Allergies Allergen ID Allergen Name Allergen Category Reaction Reaction Severity Criticality Documentation Date Start Date Code Code System Note Provider Name and Address Organization Details Recorded Time 24795 Motrin medicatio n Not available Not available Not available 07/10/20232022 8 RxNorm Not Available [facility] 12:08:36 65244 Tylenol medicatio n Not available Not available Not available 07/10/20232022 3 RxNorm Not Available [facility] 12:08:37 Medications Name Sig Start Date [...] Heart rate Body temperature Respiratory rate Systolic And Diastolic Provider Name and Address Organization Details Last Updated DateTime 165.1 cm 31.6 kg/m2 77381.5 5 g 86 /min 98.5 [degF] 20 /min 125/79 mm[Hg] SAMY FRANKLIN [facility] 10:39:10 Date Recorded Body height Body mass index (BMI) Body weight Provider Name and Address Organization Details Last Updated DateTime 05/31/2024 165.1 cm 31.6 kg/m2 32433.55 g QUE CABALLERO [facility] 05/31/2024 14:37:55 Date Recorded Body height Body mass index (BMI) Body weight Provider Name and Address Organization Details Last Updated DateTime 07/05/2024 165.1 cm 31.6 kg/m2 70422.55 g DILLON Levi [facility] 07/05/2024 14:14:08 Social History None recorded. Functional Status None recorded. Mental Status None recorded. Family History Nothing Reported. Medical History Condition Response Bleeding Disorder Y Anxiety/Depression Y Gynecological HistoryNo gynecological history recorded. Obstetrics History GPAL:G 0 P 0 0 0 0 Past Encounters Encounter ID Performer Location Encounter Start Date Encounter Closed Date Diagnosis/Indication Diagnosis SNOMED-CT Code Diagnosis ICD10 Code Diagnosis Note [id number] [facility] [address] [facility] [place] [place] [address] 05/14/2024 09:46:22 05/23/2024 16:07:15 Pain in left foot 1638897537 85072 M79.672 Closed fra cture of fifth metatarsal bone 91340121 S92.352A Closed fra cture of base of fifth metatarsal bone 570701900 S92.351A [id number] MARK ANTHONY [facility] [address] [place] [address] 05/31/2024 14:09:16 06/11/2024 14:19:37 Closed fracture of fifth metatarsal bone 92109145 S92.352A [id number] MD YOLANDA Schreiber [facility] [address] [place] [address] 07/05/2024 13:52:20 07/21/2024 19:44:37 Pain in left foot 0017950695 68010 M79.672 Postoperative visit 1836 67317 Z48.89 Health Concerns Section Related Observation LastModified by Organization Detai ls LastModified Time None Recorded Concern Status LastModified by Organization Details LastModified Time None Recorded Advance Directives Directive None Recorded Payers Insurance Date Sequence Insurance Name Policy Number Policy Ramirez Covered Member ID Ramirez Member ID Guarantor Name 08/30/[address] [place] [address] [employer] [facility] (MEDICAID HMO) [id number] Rufina Schaefer [id number] Rufina Schaefer Notes Date Note Type Note [...] with questions or concerns. Namrata Olvera PA-C [address] [place] [address] [address], [place], [address], [facility] 05/31/2024 15:09:27 OBGyn Episode No OBEpisode recorded.
--- NOTE | 2024-11-11 17:16 | ED.PSYCH ---
HPI - Psych General Chief Complaint: Psychiatric Symptoms Stated Complaint: suicidal thoughts, hx 3weeks Time Seen by Provider: 11/11/24 16:43 Source: patient and EMS Mode of arrival: EMS Limitations: no limitations History of Present Illness ED Provider: Dr. Thania Stoddard HPI Narrative: patient comes to the emergency room via ambulance. According to EMS, the patient was having suicidal thoughts but no plan, no HI. patient states that recently her clonazepam was switched to lorazepam, and since then she has been having SI thoughts. Patient also complaining of acute on chronic abdominal pain. Patient known to have chronic pancreatitis. Pain has been present for 3 days and gradually getting worse. According to the patient, 3 days ago patient drank a large amount of alcohol, which triggered her abdominal pain. Patient states she has been vomiting, no diarrhea. Denies any hematemesis or melena Related Data Home Medications ?Medication ?Instructions ?Recorded ?Confirmed aripiprazole 10 mg tablet 10 mg PO BEDTIME 05/21/21 10/26/24 doxepin 50 mg capsule 50 mg PO BEDTIME 05/21/21 10/26/24 gabapentin 600 mg tablet 600 mg PO TID 05/21/21 10/26/24 lorazepam 1 mg tablet 1 mg PO TID PRN Anxiety 05/21/21 10/26/24 pantoprazole 40 mg tablet,delayed 40 mg PO DAILY@0630 05/21/21 10/26/24 release bupropion HCl 300 mg 24 hr tablet, 300 mg PO DAILY 09/07/23 10/26/24 extended release folic acid 1 mg tablet 1 mg PO DAILY 09/07/23 10/26/24 lamotrigine 25 mg tablet 75 mg PO BEDTIME 09/07/23 10/26/24 [id number] 1 cap PO TIDWM 08/23/24 10/26/24 36,000-114,000-180,000 unit capsule,delay rel (Creon) multivitamin 1 tab PO DAILY 08/23/24 10/26/24 trazodone 150 mg tablet 150 mg PO BEDTIME 08/23/24 10/26/24 Previous Rx's ?Medication ?Instructions ?Recorded prazosin 5 mg capsule 5 mg PO BEDTIME 30 days #30 caps 02/18/20 oxycodone 5 mg tablet 5 mg PO Q8H PRN Pain, 10/28/24 Moderate(Pain Scale 4-6) #10 tabs thiamine mononitrate (vit B1) 100 100 mg PO DAILY #90 tabs 10/28/24 mg tablet hyoscyamine sulfate 0.125 mg tablet 0.125 mg PO QID PRN dyspepsia #10 11/12/24 tabs Allergies Allergy/AdvReac Type Severity Reaction Status Date / Time ibuprofen AdvReac Stomach Verified 11/11/24 16:53 Upset morphine AdvReac Gastrointestinal Verified 11/11/24 16:53 Upset bees Allergy Severe Anaphylaxis Uncoded 11/11/24 16:53 Review of Systems Review of Systems: Constitutional : No Weight loss, No Fever, No Chills, No Night Sweats, No Fatigue, No Malaise ENT/Mouth : No Hearing loss, No Ear Pain, No Nasal Congestion, No Sinus Pain, No Hoarseness, No sore throat, No Rhinorrhea, No Swallowing Difficulty Eyes: No Eye Pain, No Swelling, No Redness, No Foreign Body, No Discharge, No Vision Changes Cardiovascular : No Chest Pain, No SOB, No Dyspnea on Exertion, No Orthopnea, No Edema, No Palpitations Respiratory : No Cough, No Sputum, No Wheezing, No Smoke Exposure, No Dyspnea Gastrointestinal : complaining of intermittent nausea and vomiting, no diarrhea, complaining of epigastric abdominal pain radiating to the back. Genitourinary : no irregular bleeding, No Dysuria, No Urinary Frequency, No Hematuria, No Urinary Incontinence, No Urgency, No Flank Pain, No Urinary Flow Changes, No Hesitancy Musculoskeletal : No joint pain, No Myalgias, No Joint Swelling Skin : No Skin Lesions, No rash Neuro : No Weakness, No Numbness, No Paresthesias, No Loss of Consciousness, No Dizziness, No Headache Psych : Complaining of vague SI, no HI, complaining of feeling anxious, Admits to drinking alcohol when she is not supposed to. Heme/Lymph: No Bruising, No Bleeding,No Lymphadenopathy Endocrine : No Polyuria, No Polydipsia, No Temperature Intolerance PMFSH Past Medical History Medical History Suicidal ideations Intentional overdose Chronic cough Chronic pancreatitis Cocaine use Alcohol abuse Obesity (BMI 30.0-34.9) Pancreatitis Back pain Alcohol use disorder, severe, dependence Gastritis Gastritis Endometriosis Constipation Anxiety Depression Bipolar disorder Suicidal behavior PTSD (post-traumatic stress disorder) Surgical History History of ankle surgery Social History Social History Household Members: Spouse Housing: House Do you presently have visiting nurse or other home services: No Alcohol intake: current Alcohol intake frequency: a few times a week Alcohol type: beer and hard liquor Comment: pt reports no effects as of yet Patient Tobacco Use Status: Current someday Tobacco user Tobacco use type: Cigarette Smoked in Last 30 Days: No e-Cigarette/Vaping Use: Never Used Second Hand Smoke Exposure: No Use of substances other than those prescribed or required for medical reasons: No Substance Use Type: Crack/Cocaine Advance Directives: Yes Advance Directives on File: Yes Advance Directives Date on File: 09/07/23 Do you have a plan to hurt others: No Plan Patient : No service: No Sexual orientation: Straight/Heterosexual Physical Exam Vital Signs: Vital Signs: Last Vital Signs Temp 98.6 F 11/12/24 01:25 Pulse 104 H 11/12/24 01:25 Resp 16 11/12/24 01:25 BP 127/89 11/12/24 01:25 Pulse Ox 98 11/12/24 01:25 O2 Del Method Room Air 11/12/24 01:25 BMI result Body Mass Index 30.0 Const: Other: Appearance: Alert. Oriented X3. intermittently crying and yelling Eyes: Pupils equal, round and reactive to light. ENT: Pharynx normal. Neck: Normal inspection. Neck supple. No lymph nodes noted. No crepitus CVS: Normal heart rate and rhythm. Pulses normal. Normal S1 and S2 Respiratory: No respiratory distress. Breath sounds normal. No Wheezing. No rales Abdomen: Soft, nondistended, does not seem to be particularly tender in the epigastric area or in any other quadrant, no rebound or guarding Skin: Skin warm and dry. Normal skin color. Normal skin turgor. Extremities: No lower extremity edema. No Lacerations. No Rash Neuro: Oriented X 3. No motor deficit. No sensory deficit. Moving all extremities. No slurred speech. CN 2 through 12 grossly intact Psych: calm, anxious, crying Course Course Course Narrative: patient complaining of abdominal pain after drinking alcohol, patient known to have chronic pancreatitis. Also complaining of SI with no plans. All of patient's labs and imaging pending. Patient receiving IV fluids, Reglan, Dilaudid, patient claims to be allergic to morphine. Also patient receiving a dose of diazepam to help her with her anxiety Medications Administered Discontinued Medications Generic Name Dose Route Start Last Admin Trade Name Ibeth PRN Reason Stop Dose Admin Al Hydroxide/Mg Hydroxide 30 ml 11/11/24 19:23 11/11/24 19:41 Magnesium Hydrox/Alum Hydrox 30 Ml Oral.Susp PO 11/11/24 19:24 30 ml ONCE ONE Administration Belladonna Alkaloids/Phenobarbital 5 ml 11/11/24 23:26 11/12/24 00:08 Phenobarb/Hyoscy/Atropine/Scop 10 Ml Elixir PO 11/11/24 23:27 5 ml ONCE ONE Administration Diazepam 5 mg 11/11/24 17:16 11/11/24 17:39 Diazepam 10 Mg/2 Ml Cartridge IVPUSH 11/11/24 17:17 5 mg STAT STA Administration Famotidine 20 mg 11/11/24 19:23 11/11/24 19:41 Famotidine/Pf 20 Mg/2 Ml Vial IVPUSH 11/11/24 19:24 20 mg ONCE ONE Administration Hydromorphone HCl 0.5 mg 11/11/24 17:15 11/11/24 17:38 Hydromorphone Hcl 0.5 Mg/0.5 Ml Syringe IVPUSH 11/11/24 17:16 0.5 mg ONCE ONE Administration Protocol Sodium Chloride 1,000 mls @ 999 mls/hr 11/11/24 17:13 11/11/24 19:41 Ns IVCONT 11/11/24 18:13 Infused .Q1H1M ONE Infusion Iohexol 85 ml 11/11/24 19:53 11/11/24 19:55 Iohexol 350 Mg/Ml 100 Ml Infus..Btl IV 11/11/24 19:54 85 ml ONCE ONE Administration Lidocaine HCl 15 ml 11/11/24 19:23 11/11/24 19:41 Lidocaine Hcl Viscous 2 % 15 Ml Solution MUCOUS MEM 11/11/24 19:24 15 ml ONCE ONE Administration Metoclopramide HCl 10 mg 11/11/24 17:13 11/11/24 17:38 Metoclopramide Hcl 10 Mg/2 Ml Vial IVPUSH 11/11/24 17:14 10 mg ONCE ONE Administration Medical Decision Making Medical Decision Making [facility] Narrative: my interpretation of EKG: Sinus tachycardia, heart rate 110, no ST segment depression or elevation, T-wave inversions in V1 through V4, previously seen in other EKGs labs: Patient's white blood cell count within normal limits, no significant abnormality in patient's hematolog, no significant abnormality in patient's chemistry, glucose 147, LFTs chronically elevated and at baseline, lipase 8, patient's beta-hCG is 4, patient has chronically slightly elevated beta-hCG between [address] scan shows sequela of chronic pancreatitis. after medication, patient is sitting comfortably care team consult pending physician observation starting at 21:37 the care team evaluated the patient. Also they spoke to the patient's refused to talk to them, states that he was too sleepy to talk and he went block phone call back tomorrow. At this time, patient is on a Section 12, patient to be re-evaluated by the care team in the morning. At this time, 00:36, patient is sleeping, no further complaining of abdominal pain 01:40: Patient's called, he states that he has no concerns about patient's safety, patient made vague SI statements, has no plan. Patient's feels comfortable taking her home. Patient denies SI or HI. Patient instructed to follow-up with the primary care physician and director traffic and planning for chronic pain secondary to chronic pancreatitis. Differential Diagnosis Differential Diagnoses: The differential diagnosis associated with the presentation includes ( alcoholic gastritis comfortably he on chronic pancreatitis, gastroenteritis) Admission/Observation Consideration of admission/observation: Escalation of care including admission/observation considered ( given patient's initial presentation, observation and admission has been considered.) Lab Data [facility] Lab Attestation statement: I reviewed the patient's lab results. 11/11/24 17:38 11/11/24 17:37 Labs: Lab Results 11/11/24 11/11/24 11/11/24 Range/Units 17:37 17:38 18:00 WBC 10.4 (4.8-10.8) X10*3/uL RBC 4.12 L (4.20-5.50) X10*6/uL Hgb 12.5 (12.0-16.0) g/dl Hct 36.9 L (37.0-47.0) % MCV 89.6 (80.0-98.0) fL MCH 30.3 (27.0-33.0) pg MCHC 33.9 (31.0-35.0) g/dl RDW 13.3 (11.0-16.0) % Plt Count 334 (160-400) X10*3/uL MPV 9.6 (9.4-12.3) fL Immature Gran % (Auto) 0.8 H (0.0-0.4) % Neut % (Auto) 55.6 (45-73) % Lymph % (Auto) 31.0 (20-40) % [place] % (Auto) 7.6 (2-11) % Eos % (Auto) 4.1 H (0-4) % Baso % (Auto) 0.9 (0-2) % Lymph # (Auto) 3.2 (1.2-4.9) X10*3/uL [place] # (Auto) 0.8 (0.1-1.2) X10*3/uL Eos # (Auto) 0.4 (0.0-0.4) X10*3/uL Baso # (Auto) 0.1 (0.0-0.2) X10*3/uL Abs Immat Gran (auto) 0.08 H (0.00-0.03) X10*3/uL Absolute Neuts (auto) 5.8 (2.0-8.3) x10*3/uL Absolute Nucleated RBC 0.000 (0.0-0.012) X10*3/uL Nucleated RBC % (auto) 0.0 (0.0-0.2) /100WBC Sodium 140 (135-145) mmol/L Potassium 4.1 (3.3-5.1) mmol/L Chloride 105 (96-108) mmol/L Carbon Dioxide 22 (22-29) mmol/L Anion Gap 17 (12-20) BUN 3 L (9-16) mg/dL Creatinine 0.63 (0.5-1.4) mg/dL Estim Creat Clear Calc 117.7 Estimated GFR > 60 Random Glucose 147 H (60-115) mg/dL Calcium 8.3 L (8.4-10.2) mg/dL Magnesium 2.0 (1.6-2.6) mg/dL Total Bilirubin 0.4 (0.0-1.0) mg/dL Direct Bilirubin 0.1 (0.0-0.5) mg/dL AST 150 H (5-31) U/L ALT 46 H (0-31) U/L Alkaline Phosphatase 156 H (39-117) U/L Total Protein 6.8 (6.5-8.0) g/dL Albumin 3.5 (3.5-5.0) g/dL Lipase 8 (8-78) U/L Beta HCG, Quant 4 mIU/mL Urine Color Yellow Urine Appearance Clear Urine pH 6.5 (5.0-9.0) Ur Specific [place] 1.010 (1.005-1.025) Urine Protein Negative (Neg-Trace) mg/dL Urine Glucose (UA) Negative (Negative) mg/dL Urine Ketones Negative (Negative) mg/dL Urine Blood Negative (Negative) Urine Nitrite Negative (Negative) Ur Leukocyte Esterase Trace H (Negative) Urine RBC 0-2 (0-2) /HPF Urine WBC 0-5 (0-5) /HPF Ur Squamous Epith Cells 6-10 (0-2) /HPF Urine Bacteria 1+ (None Seen) Hyaline Casts 0-2 (0-2) /LPF Urine Opiates Screen Not Detected (Not Detect) Ur Buprenorphine Scrn Not Detected (Not Detect) ng/mL Ur Oxycodone Screen Not Detected (Not Detect) ng/mL Urine Methadone Screen Not Detected (Not Detect) ng/mL Urine Fentanyl Screen Not Detected (Not Detect) Ur Barbiturates Screen POSITIVE H (Not Detect) Ur Phencyclidine Scrn Not Detected (Not Detect) Ur Amphetamines Screen Not Detected (Not Detect) U Benzodiazepines Scrn POSITIVE H (Not Detect) Urine Cocaine Screen POSITIVE H (Not Detect) U Marijuana (THC) Screen Not Detected (Not Detect) Ethyl Alcohol 208 mg/dL Independent Interpretation I performed an independent interpretation of an: CT Scan Radiology Impression Discussion of test interpretation with radiology: I have reviewed the radiologist's reading. Radiologist Impression: No consolidation at the lung bases. Unremarkable gallbladder and bladder. Hepatic steatosis. Hepatomegaly, measuring 21.5 cm in craniocaudal dimension. Pancreatic parenchymal calcifications with ductal dilatation and atrophy, the sequela of chronic pancreatitis. No peripancreatic stranding or fluid collection. Lobular contour of the kidneys could be secondary to scarring. The other solid organs are unremarkable. Underdistended distal esophagus. Trace gastroesophageal reflux, Also seen on the prior study. The previously seen small hiatal hernia is not as well appreciated on this exam. No bowel wall thickening or dilation. A normal appendix is identified. No aneurysm. No calcified atherosclerotic disease. No lymphadenopathy. No ascites. No acute osseous abnormality. Impression: No acute findings. Sequela of chronic pancreatitis. Critical Care Time Critical Care Time Critical Care Time: Yes Total Critical Care Time: 45 Attestation: I have personally provided critical care time. Time includes review of lab data, radiology results, discussion with consultants, and monitoring for potential decompensation. Intervention performed as documented. Discharge Plan Discharge Clinical Impression: Abdominal pain, Anxiety Patient Disposition: Home, Self-Care Instructions: Abdominal Pain (ED), Anxiety (ED) Additional Instructions: Please follow-up with your primary care physician tomorrow. If you have any worsening or new symptoms, please return to the emergency room or call 911 Prescriptions: New hyoscyamine sulfate 0.125 mg tablet 0.125 mg PO QID PRN (Reason: dyspepsia) Qty: 10 0RF No Action prazosin 5 mg Capsule 5 mg PO BEDTIME 30 Days Qty: 30 0RF doxepin 50 mg capsule 50 mg PO BEDTIME gabapentin 600 mg tablet 600 mg PO TID aripiprazole 10 mg tablet 10 mg PO BEDTIME lorazepam 1 mg tablet 1 mg PO TID PRN (Reason: Anxiety) pantoprazole 40 mg Tablet,Delayed Release (Dr/Ec) 40 mg PO DAILY@0630 multivitamin Tablet 1 tab PO DAILY trazodone 150 mg tablet 150 mg PO BEDTIME Creon 36,000-114,000- 180,000 unit capsule,delayed release(DR/EC) 1 cap PO TIDWM lamotrigine 25 mg tablet 75 mg PO BEDTIME folic acid 1 mg tablet 1 mg PO DAILY bupropion HCl 300 mg tablet extended release 24 hr 300 mg PO DAILY oxycodone 5 mg Tablet 5 mg PO Q8H PRN (Reason: Pain, Moderate(Pain Scale 4-6)) Qty: 10 0RF Rx Instructions: Partial Fill upon patient request. thiamine mononitrate (vit B1) 100 mg Tablet 100 mg PO DAILY Qty: 90 0RF Interventions: [place]henon-Suicide Risk Severity Scale Last Done: 11/11/24 16:54 Print Language: Choose Not To Answer
[2024-11-11 17:38] VITALS: RESP 18
[2024-11-11] MEDS: diazePAM 10 MG/2 ML CARTRIDGE 5 MG IVPUSH (17:39)
[2024-11-11 17:50] LABS: MANUAL DIFF FLAG NO
[2024-11-11 17:54] LABS: Hematocrit 36.9 % (37.0-47.0); Hemoglobin 12.5 g/dl (12.0-16.0); Imm Gran Abs Auto 0.08 X10*3/uL (0.00-0.03); Imm Gran Pct Auto 0.8 % (0.0-0.4); Lymphocytes Absolute Auto 3.2 X10*3/uL (1.2-4.9); Mean Corpuscular HGB Conc 33.9 g/dl (31.0-35.0); Mean Corpuscular Hemoglobin 30.3 pg (27.0-33.0); Mean Corpuscular Volume 89.6 fL (80.0-98.0); NRBC Abs Auto 0.000 X10*3/uL (0.0-0.012); NRBC Pct Auto 0.0 /100WBC (0.0-0.2); Platelet Count 334 X10*3/uL (160-400); Red Blood Count 4.12 X10*6/uL (4.20-5.50); White Blood Count 10.4 X10*3/uL (4.8-10.8)
[2024-11-11 18:08] LABS: Alanine Aminotransferase 46 U/L (0-31); Albumin Level 3.5 g/dL (3.5-5.0); Alkaline Phosphatase 156 U/L (39-117); Anion Gap 17 (12-20); Aspartate Amino Transferase 150 U/L (5-31); Blood Urea Nitrogen 3 mg/dL (9-16); Calcium 8.3 mg/dL (8.4-10.2); Carbon Dioxide 22 mmol/L (22-29); Chloride 105 mmol/L (96-108); Creatinine Clr Calc Pharmacy 117.7; Estimated Glomerular Filt Rate > 60; Lipase 8 U/L (8-78); Magnesium 2.0 mg/dL (1.6-2.6); Potassium 4.1 mmol/L (3.3-5.1); Sodium 140 mmol/L (135-145); Total Protein 6.8 g/dL (6.5-8.0)
[2024-11-11 18:22] LABS: Cannabinoid Screen Urine Not Detected (Not Detect)
[2024-11-11 18:27] VITALS: BP 103/63; PULSE 108; RESP 18; TEMP 36.8; O2SAT 93
[2024-11-11 18:34] LABS: Appearance Urine Clear; Glucose Urine UA Negative (Negative); PH 6.5 (5.0-9.0); Specific Gravity - Urine 1.010 (1.005-1.025); UMIC TRIGGER UACC YES
--- NOTE | 2024-11-11 18:48 | PC.NURSE ---
Patient A&O x 3. Patient presents to ED with SI no plan. denies HI. Patient recently switched from clonazepam to lorazepam and thats when the SI thoughts began. Patient c/o of left sided abdominal pain rated 10/10 radiates toward her back. + bowel sound. Last BM 4 days ago. Hx of pancreatitis, uses reglan and dilaudid for management. 20G in right forearm. EKG = sinus tach Patient changed over with security in family room. VSS and up to date. Provider to see patient. Plan of care on going
[2024-11-11] MEDS: Lidocaine HCl Viscous 2 % 15 ML SOLUTION MUCOUS MEM (19:41)
[2024-11-11] MEDS: Magnesium Hydrox/Alum Hydrox 30 ML ORAL.SUSP PO (19:41)
[2024-11-11] MEDS: iohexoL 350 MG/ML 100 ML INFUS..BTL 85 ML IV (19:55)
--- NOTE | 2024-11-11 21:19 | MHC.CARE ---
Julianna from [facility] reports assessing Pt in the community earlier today with a dispo of IPLOC. Pt presents with increased aggression, posturing and chasing her significant other around the home. Recent med changes which has caused increased SI with a plan (however would not disclose) and depression. Hx of attempts via OD.
[2024-11-12] MEDS: PHENobarb/Hyoscy/Atropine/Scop 10 ML ELIXIR 5 ML PO (00:08)
--- NOTE | 2024-11-12 00:23 | MHC.CARE ---
T/w attempted to call Josep, pts. for some collateral information and he asked t/w to call back in the morning as he is sleeping.
[2024-11-12 01:25] VITALS: BP 127/89; PULSE 104; RESP 16; TEMP 37; O2SAT 98
[2024-11-12 02:05] VITALS: BP 127/89; PULSE 104; RESP 16; TEMP 37; O2SAT 98
== END 2024-11-12 02:07 | disposition home or self-care (01) ==
PROVIDERS: Emergency Provider Emergency Medicine; PCP Pediatrics
DX: F41.9 Anxiety disorder, unspecified (principal); R10.13 Epigastric pain; F17.210 Nicotine dependence, cigarettes, uncomplicated; Z79.899 Other long term (current) drug therapy
CPT/HCPCS: 36415; 74177; 80048; 80076; 80307; 81001; 83690; 83735; 84702; 85025; 93005; 96361; 96374; 96375; 99285; J1171; J1308; J2765; J3360; Q9967; S9485

== ENCOUNTER → 2024-11-11 17:07 | Outpatient (BNV) | payer OTHER, SELFPAY | PROVIDERS: Emergency Provider Emergency Medicine; PCP Pediatrics; Visit Provider Internal Medicine Cardiovascular Disease | DX: R00.0 Tachycardia, unspecified (principal) | CPT/HCPCS: 93010 ==

== ENCOUNTER → 2024-11-11 17:07 | Outpatient (BNV) | payer OTHER, SELFPAY | PROVIDERS: Emergency Provider Emergency Medicine; PCP Pediatrics; Visit Provider Radiology Diagnostic Radiology | DX: K86.1 Other chronic pancreatitis (principal) | CPT/HCPCS: 74177 ==

== ENCOUNTER 2024-11-15 17:53 | Inpatient (IN) | payer OTHER, SELFPAY ==
--- NOTE | 2024-11-15 | ECG_ITS ---
Test Reason : pancreatitis Blood Pressure : */* mmHG Vent. Rate : 112 BPM Atrial Rate : 112 BPM P-R Int : 124 ms QRS Dur : 74 ms QT Int : 356 ms P-R-T Axes : 38 63 76 degrees QTcB Int : [address] & T wave abnormality, consider anterior ischemia Abnormal ECG When compared with ECG of 11-Nov-2024 17:23, No significant change was found Referred By: Generic ED Physician Electronically Signed By: Danilo Bradshaw
--- NOTE | ~2024-11-15 | XR_ITS ---
CLINICAL HISTORY: B wheeze, ? hemoptysis Chest X-ray, 1 View COMPARISON: None provided FINDINGS: No consolidation. No pleural effusion. No pneumothorax. No cardiomegaly. No acute fracture. IMPRESSION: No acute findings. This document has been electronically signed by: Xiang Hendricks MD on 11/16/2024 00:35:09
--- NOTE | ~2024-11-15 | CT_ITS ---
CLINICAL HISTORY: abd pain, chronic pancreatitis CT Abdomen and Pelvis W Contrast COMPARISON: CT/SR - CT ABDOMEN PELVIS W IV CON - 11/11/24 19:48 EDT FINDINGS: Diffusely hypodense liver consistent with hepatic steatosis. Hepatomegaly. Normal spleen. Normal kidneys. Normal adrenal glands. Pancreatic calcifications consistent with chronic pancreatitis. No evidence of acute pancreatitis. No visible cholelithiasis. No biliary dilation. No evidence of bowel obstruction or colitis. The appendix is not identified, however, no secondary signs of acute appendicitis. Mild diffuse bladder wall thickening. Unremarkable uterus. No ascites. No pneumoperitoneum. No lymphadenopathy. No acute fracture. Degenerative changes in the spine. No abdominal aortic aneurysm. IMPRESSION: No acute findings. Nonemergent/incidental findings above. This document has been electronically signed by: Xiang Hendricks MD on 11/15/2024 23:29:32
[2024-11-15 17:58] VITALS: BP 136/77; PULSE 123; O2SAT 98; BMI 31.7
[2024-11-15 18:03] VITALS: BP 136/97; PULSE 117; RESP 18; TEMP 36.7; O2SAT 96
[2024-11-15 18:22] LABS: MANUAL DIFF FLAG NO
--- NOTE | 2024-11-15 18:22 | ED.GENADULT ---
HPI - General Adult General Chief complaint: Abdominal Pain Stated complaint: abd pain,etoh Time Seen by Provider: 11/15/24 17:59 History of Present Illness ED Provider: Elisabeth BARR narrative: The patient is a 44-year-old female with a history of alcoholism and binge drinking. She has had complications of alcoholism in the past including pancreatitis and alcoholic gastritis. She has also had esophagitis. She has been hospitalized several times this year for complications of her alcoholism. Most of these episodes include episodes of vomiting and abdominal pain which have proved negative for obvious acute pancreatitis. She has been hospitalized in May, August, September, and October of this year for a syndromes like this. Her CT scans have showed chronic changes of her pancreas but no acute findings. She has not had any elevated lipase readings this year. The patient says that she has been under lot of stress related to her work recently and she drank 3 sleeves of Fire[employer] liquor over the last 3 days. This has provoked abdominal pain, nausea, and vomiting typical of these previous syndrome she has had recently. No definite fever. 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 Related Data Home Medications ?Medication ?Instructions ?Recorded ?Confirmed aripiprazole 10 mg tablet 10 mg PO BEDTIME 05/21/21 10/26/24 doxepin 50 mg capsule 50 mg PO BEDTIME 05/21/21 10/26/24 gabapentin 600 mg tablet 600 mg PO TID 05/21/21 10/26/24 lorazepam 1 mg tablet 1 mg PO TID PRN Anxiety 05/21/21 10/26/24 pantoprazole 40 mg tablet,delayed 40 mg PO DAILY@0630 05/21/21 10/26/24 release bupropion HCl 300 mg 24 hr tablet, 300 mg PO DAILY 09/07/23 10/26/24 extended release folic acid 1 mg tablet 1 mg PO DAILY 09/07/23 10/26/24 lamotrigine 25 mg tablet 75 mg PO BEDTIME 09/07/23 10/26/24 fxasxn-cenejnbx-perbkzr 1 cap PO TIDWM 08/23/24 10/26/24 36,000-114,000-180,000 unit capsule,delay rel (Creon) multivitamin 1 tab PO DAILY 04/18/25 06/21/25 trazodone 150 mg tablet 150 mg PO BEDTIME 08/23/24 10/26/24 Previous Rx's ?Medication ?Instructions ?Recorded prazosin 5 mg capsule 5 mg PO BEDTIME 30 days #30 caps 02/18/20 Allergies Allergy/AdvReac Type Severity Reaction Status Date / Time ibuprofen AdvReac Stomach Verified 11/15/24 17:59 Upset morphine AdvReac Gastrointestinal Verified 11/15/24 17:59 Upset bees Allergy Severe Anaphylaxis Uncoded 11/15/24 17:59 Review of Systems Review of Systems: Yes all other systems are reviewed and are negative FOR[facility]LY [facility] Past Medical History Medical History Suicidal ideations Intentional overdose Chronic cough Chronic pancreatitis Cocaine use Alcohol abuse Obesity (BMI 30.0-34.9) Pancreatitis Back pain Alcohol use disorder, severe, dependence Gastritis Gastritis Endometriosis Constipation Anxiety Depression Bipolar disorder Suicidal behavior PTSD (post-traumatic stress disorder) Surgical History History of ankle surgery Social History Social History Household Members: Spouse Housing: House Do you presently have visiting nurse or other home services: No Alcohol intake: current Alcohol intake frequency: a few times a week Alcohol type: beer and hard liquor Comment: pt reports no effects as of yet Patient Tobacco Use Status: Current someday Tobacco user Tobacco use type: Cigarette e-Cigarette/Vaping Use: Never Used Second Hand Smoke Exposure: No Substance Use Type: Crack/Cocaine Advance Directives: Yes Advance Directives on File: Yes Advance Directives Date on File: 09/07/23 Do you have a plan to hurt others: No Plan service: No Sexual orientation: Straight/Heterosexual Physical Exam ED Vital Signs: Vital Signs - 24 hr 11/15/24 18:03 Temperature 98.1 F Pulse Rate 117 H Respiratory Rate 18 Blood Pressure 136/97 H Pulse Oximetry 96 Oxygen Delivery Method Room Air BMI result Body Mass Index 31.7 Const Other: The patient is a 44-year-old woman who was awake and alert and seem nauseated. She was retching a great deal. She looked uncomfortable. Orientation/consciousness: patient oriented x3 HENMT Other: The face is symmetrical. ?Mucous membranes moist. Eyes Other: Pupils are round equal, conjunctivae are clear, extraocular movements intact Neck Neck: Yes normal visual inspection, Yes full ROM and Yes no lymphadenopathy Resp Effort & Inspection: normal respiratory effort Auscultation: clear to auscultation bilaterally Cardio Rate: tachycardic Rhythm: regular rhythm Heart sounds: S1 normal heart sound present and S2 normal heart sound present GI Other: The abdomen is soft. No definite focal tenderness. No rebound or guarding. Skin Other: Skin is pale and dry Neuro General: patient oriented x3, tone normal, moves all extremities, no focal motor deficits and CN's II-XI intact bilaterally Extrem Other: There is no calf swelling or tenderness. No asymmetry. No peripheral edema. Medications Administered Discontinued Medications Generic Name Dose Route Start Last Admin Trade Name Freq PRN Reason Stop Dose Admin Droperidol 1.25 mg 11/15/24 18:22 11/15/24 18:27 Droperidol 5 Mg/2 Ml Vial IVPUSH 11/15/24 18:23 1.25 mg ONCE ONE Administration Famotidine 20 mg 11/15/24 19:58 11/15/24 20:07 Famotidine/Pf 20 Mg/2 Ml Vial IVPUSH 11/15/24 19:59 20 mg ONCE ONE Administration Hydromorphone HCl 1 mg 11/15/24 18:22 11/15/24 18:27 Hydromorphone Hcl 1 Mg/Ml Syringe IVPUSH 11/15/24 18:23 1 mg ONCE ONE Administration Protocol Hydromorphone HCl 1 mg 11/15/24 19:58 11/15/24 20:07 Hydromorphone Hcl 1 Mg/Ml Syringe IVPUSH 11/15/24 19:59 1 mg ONCE ONE Administration Protocol Sodium Chloride 1,000 mls @ 999 mls/hr 11/15/24 18:30 11/15/24 19:28 Ns IV 11/15/24 19:30 Infused .Q1H1M ELIZABETH Infusion Lactated Ringer's 1,000 mls @ 999 mls/hr 11/15/24 20:00 11/15/24 21:17 Lr IV 11/15/24 21:00 Infused .Q1H1M ELIZABETH Infusion Medical Decision Making Medical Decision Making MDM Narrative: The patient is a 44-year-old woman with a history of alcoholism who seems to be a binge drinker and who seems to have episodes of abdominal pain and vomiting related to alcohol use. She has had problems with alcoholic pancreatitis in the past. She presents today with symptoms of abdominal pain and vomiting related to alcohol use. Her lipase is normal. Recent CAT scans for similar presentations have not shown any acute findings although they have shown signs of chronic pancreatitis. Based on her presentation today I do not think she needs another CAT scan. She was treated symptomatically with droperidol and hydromorphone. She was also given IV famotidine and IV fluids. She will be given intramuscular phenobarbital as well. Also she will be given a L of D5 normal saline. I consider her at risk for alcohol withdrawal and given that she had significant nausea and vomiting I think trying to manage this as an outpatient would be difficult. She will therefore be admitted to the hospitalist service. I suspect that she has a acute alcoholic gastritis with vomiting. Lab Data 11/15/24 18:19 11/15/24 19:04 Labs: Lab Results 11/15/24 11/15/24 Range/Units 18:19 19:04 WBC 14.5 H (4.8-10.8) X10*3/uL RBC 4.83 (4.20-5.50) X10*6/uL Hgb 14.8 (12.0-16.0) g/dl Hct 42.3 (37.0-47.0) % MCV 87.6 (80.0-98.0) fL MCH 30.6 (27.0-33.0) pg MCHC 35.0 (31.0-35.0) g/dl RDW 13.8 (11.0-16.0) % Plt Count 420 H D (160-400) X10*3/uL MPV 9.4 (9.4-12.3) fL Immature Gran % (Auto) 0.7 H (0.0-0.4) % Neut % (Auto) 74.0 H (45-73) % Lymph % (Auto) 16.5 L (20-40) % [place] % (Auto) 8.1 (2-11) % Eos % (Auto) 0.1 (0-4) % Baso % (Auto) 0.6 (0-2) % Lymph # (Auto) 2.4 (1.2-4.9) X10*3/uL [place] # (Auto) 1.2 (0.1-1.2) X10*3/uL Eos # (Auto) 0.0 (0.0-0.4) X10*3/uL Baso # (Auto) 0.1 (0.0-0.2) X10*3/uL Abs Immat Gran (auto) 0.10 H (0.00-0.03) X10*3/uL Absolute Neuts (auto) 10.7 H (2.0-8.3) x10*3/uL Absolute Nucleated RBC 0.000 (0.0-0.012) X10*3/uL Nucleated RBC % (auto) 0.0 (0.0-0.2) /100WBC Sodium 142 (135-145) mmol/L Potassium 3.4 (3.3-5.1) mmol/L Chloride 101 (96-108) mmol/L Carbon Dioxide 22 (22-29) mmol/L Anion Gap 22 H (12-20) BUN 3 L (9-16) mg/dL Creatinine 0.79 (0.5-1.4) mg/dL Estim Creat Clear Calc 96.5 Estimated GFR > 60 Random Glucose 156 H (60-115) mg/dL Calcium 8.4 (8.4-10.2) mg/dL Magnesium 1.8 (1.6-2.6) mg/dL Total Bilirubin 0.6 (0.0-1.0) mg/dL Direct Bilirubin 0.2 (0.0-0.5) mg/dL AST 109 H (5-31) U/L ALT 39 H (0-31) U/L Alkaline Phosphatase 179 H (39-117) U/L C-Reactive Protein 0.93 H (< or = 0.50) mg/dL Total Protein 6.9 (6.5-8.0) g/dL Albumin 3.8 (3.5-5.0) g/dL Lipase 8 (8-78) U/L Beta HCG, Quant 4 mIU/mL Ethyl Alcohol 148 mg/dL Influenza Type A (PCR) NEGATIVE (Negative) Influenza Type B (PCR) NEGATIVE (Negative) RSV RNA Qual (PCR) NEGATIVE (Negative) SARS-CoV-2 RNA (RT-PCR) NEGATIVE (Negative) Independent Interpretation I performed an independent interpretation of an: EKG Interpretation: EKG at 18:55 shows sinus tachycardia at 112 beats per minute. No definite acute ischemic changes. No significant changes from previous. Discharge Plan Discharge Clinical Impression: Acute alcoholic gastritis, Vomiting, Alcoholism Patient Disposition: Admitted As Inpatient Print Language: Austrian
[2024-11-15 18:24] LABS: Hematocrit 42.3 % (37.0-47.0); Hemoglobin 14.8 g/dl (12.0-16.0); Imm Gran Abs Auto 0.10 X10*3/uL (0.00-0.03); Imm Gran Pct Auto 0.7 % (0.0-0.4); Lymphocytes Absolute Auto 2.4 X10*3/uL (1.2-4.9); Mean Corpuscular HGB Conc 35.0 g/dl (31.0-35.0); Mean Corpuscular Hemoglobin 30.6 pg (27.0-33.0); Mean Corpuscular Volume 87.6 fL (80.0-98.0); NRBC Abs Auto 0.000 X10*3/uL (0.0-0.012); NRBC Pct Auto 0.0 /100WBC (0.0-0.2); Platelet Count 420 X10*3/uL (160-400); Red Blood Count 4.83 X10*6/uL (4.20-5.50); White Blood Count 14.5 X10*3/uL (4.8-10.8)
[2024-11-15 19:19] LABS: Resp Syncy Virus RNA Qual PCR NEGATIVE (Negative); SARS COV2 PCR INHOUSE NEGATIVE (Negative)
[2024-11-15 19:32] LABS: Alanine Aminotransferase 39 U/L (0-31); Albumin Level 3.8 g/dL (3.5-5.0); Alkaline Phosphatase 179 U/L (39-117); Anion Gap 22 (12-20); Aspartate Amino Transferase 109 U/L (5-31); Blood Urea Nitrogen 3 mg/dL (9-16); Calcium 8.4 mg/dL (8.4-10.2); Carbon Dioxide 22 mmol/L (22-29); Chloride 101 mmol/L (96-108); Creatinine Clr Calc Pharmacy 96.5; Estimated Glomerular Filt Rate > 60; Lipase 8 U/L (8-78); Magnesium 1.8 mg/dL (1.6-2.6); Potassium 3.4 mmol/L (3.3-5.1); Sodium 142 mmol/L (135-145); Total Protein 6.9 g/dL (6.5-8.0)
[2024-11-15] MEDS: Lactated Ringers 1,000 ML 999 ML IV (20:15)
[2024-11-15 21:25] VITALS: BP 148/94; PULSE 104; RESP 11; TEMP 36.4; O2SAT 94
--- NOTE | 2024-11-15 21:25 | PHA.MEDREC ---
Addendum entered by Markus Banda [facility] 11/15/24 21:34: med rec reviewed Original Note: Pharmacy Consult ? Medication Reconciliation Pharmacy has completed the medication reconciliation. Spoke to patient to confirm med list. Patient states she is no longer taking Hyoscyamine 0.125, and Vitamin B1 100 mg. Patient confirmed she is still taking Creon 36,000-117,000-180,000 unit, however last fill date was 08/24/24 for 30 days, Lamotrigine 75 mg (3x 25 mg) at bedtime, however last fill date was 07/19/24 for 30 days. Patient states she last had her medications 3 days ago.
[2024-11-15] MEDS: iohexoL 350 MG/ML 100 ML INFUS..BTL 85 ML IV (21:53)
[2024-11-15 22:09] VITALS: PULSE 111; RESP 17; TEMP 36.9; O2SAT 95
[2024-11-15] MEDS: PHENobarbitaL sodium 130 MG/ML IM ONCE 274 MG IM (22:10)
[2024-11-15 22:55] LABS: Appearance Urine Clear; Glucose Urine UA Negative (Negative); PH 7.0 (5.0-9.0); Specific Gravity - Urine >= 1.030 (1.005-1.025); UMIC TRIGGER UACC YES
--- NOTE | 2024-11-15 23:00 | PM.IMHP ---
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 Patient does admit to binge drinking using large twisted teas and multiple nips of fireball. 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 Patient denies any suicidal ideations or homicidal ideations. Patient recently was feeling suicidal due to a new drug that was started by her psychiatrist and that medication has since been stopped. Patient deferred need for addictions consultation as she has a plan to call [place] in [facility], a detox/alcohol treatment center that she has attended in the past. She plans to stay there for 30 days. Patient plans to make the call in the morning on 11/16/2024. Patient also admits to using cocaine 2 days ago. Patient does not use cocaine all the time so patient feels her addiction to alcohol is greater than her addiction to cocaine. Patient denies any issues with her septum as she usually snorts the cocaine when she uses it. Patient denies any IV drug abuse history. Patient does smoke cigarettes but only on occasion and defers the need for nicotine patch at this time. CT scan in the emergency department notes no acute findings. There is evidence of pancreatic calcifications indicating chronic pancreatitis. Education was provided to patient to help her understand why she has chronic pancreatitis versus acute pancreatitis noting she has been bingeing alcohol. Patient's lipase is normal. Patient received droperidol with good effect related to her nausea and vomiting. Patient states Zofran has been ineffective. Patient does have a leukocytosis. Chest x-ray is pending. UA is negative for UTI. Transaminitis also present with a AST of 109, ALT 39, alk-phos 179 and a CRP of 0.93. T bilirubin is normal at 0.6. Patient does have evidence of hepatic steatosis and hepatomegaly. Patient was following with GI at [facility] [place] in the past.. Patient was seen by GI specialists here at [facility] September of 2023 for acute on chronic pancreatitis. Patient had an MRCP which showed dilatation and tortuosity of the main pancreatic duct which measured up to 7 mm. Plan was for patient to have a follow-up MRCP in 4 months. It does not appear that patient had this follow-up testing although she has had repeated abdominal pelvis CTs with admissions for chronic pancreatitis related to alcohol use since September 2023. Patient currently on IV fluids and is NPO. Patient has been started on Protonix IV for alcohol-induced gastritis. Phenobarbital was also started in the ED. patient states she has history of seizures over 15 years ago x3 related to alcohol withdrawal. No indication for antibiotics at this time. 2358 PM: Patient reported bloody emesis that was thin and pink tinged to the nursing staff. This is different than what patient had been vomiting up prior. Suspected secondary to gastritis. Patient is ordered to start Protonix IV b.i.d.. Repeating H and H to ensure levels are stable. Review of Systems Review of Systems: Patient denies chest pain, shortness of breath at rest or with exertion. Patient is reporting abdominal pain left upper quadrant with continued nausea and vomiting. Patient denies any chills fever or night sweats. Patient denies any suicidal ideations or homicidal ideations. Yes all other systems are reviewed and are negative [facility] Medical History Suicidal ideations Intentional overdose Chronic cough Chronic pancreatitis Cocaine use Alcohol abuse Obesity (BMI 30.0-34.9) Pancreatitis Back pain Alcohol use disorder, severe, dependence Gastritis Gastritis Endometriosis Constipation Anxiety Depression Bipolar disorder Suicidal behavior PTSD (post-traumatic stress disorder) Cognitive capacity: Alert and orientated x3 Functional capacity: independent ambulation Patient : No (HCG negative) Pertinent family history: Mother and father both have history with alcohol abuse Surgical History History of ankle surgery Social History Household Members: Spouse Housing: House Do you presently have visiting nurse or other home services: No Alcohol intake: current Alcohol intake frequency: 3 or more drinks per day Alcohol type: beer and hard liquor Comment: pt reports no effects as of yet Patient Tobacco Use Status: Current someday Tobacco user Tobacco use type: Cigarette Smoked in Last 30 Days: Yes e-Cigarette/Vaping Use: Never Used Second Hand Smoke Exposure: No Use of substances other than those prescribed or required for medical reasons: Yes Substance Use Type: Crack/Cocaine Advance Directives: Yes Advance Directives on File: Yes Advance Directives Date on File: 09/07/23 Do you have a plan to hurt others: No Plan Nutrition Risks: No Nutritional Risk Patient : No (HCG negative) service: No Sexual orientation: Straight/Heterosexual Ebola Risk: Travel/Contact With Anyone From Affected Area/s: No Has Patient Experienced Ebola Symptoms: No Meds Allergies Allergy/AdvReac Type Severity Reaction Status Date / Time ibuprofen AdvReac Stomach Verified 11/15/24 17:59 Upset morphine AdvReac Gastrointestinal Verified 11/15/24 17:59 Upset bees Allergy Severe Anaphylaxis Uncoded 11/15/24 17:59 Active Medications: Current Medications Acetaminophen (Acetaminophen 325 Mg Tablet) 650 mg PO Q6H PRN PRN Reason: Pain, Mild 1-3,fever,headache Albuterol/Ipratropium (Albuterol/Iprat 2.5/0.5mg 3 Ml Ampul.Neb) 3 ml INHALE Q4H PRN PRN Reason: Shortness of Breath/Wheezing Calcium Carbonate (Calcium Carbonate 750 Mg Tab.Chew) 750 mg PO Q4H PRN PRN Reason: Heartburn Enoxaparin Sodium (Enoxaparin Sodium 40 Mg/0.4 Ml Syringe) 40 mg SUBCUT Q24H [facility] Thiamine HCl 100 mg/ Sodium (Chloride) 101 mls @ 202 mls/hr IV DAILY [facility] Folic Acid 1 mg/ Sodium (Chloride) 50.2 mls @ 100.4 mls/hr IV DAILY [facility] Magnesium Hydroxide (Milk Of Magnesia 30 Ml Oral.Susp) 30 ml PO DAILY PRN PRN Reason: Constipation Ondansetron HCl (Ondansetron Hcl 4 Mg/2 Ml Vial) 4 mg IVPUSH Q8H PRN PRN Reason: Nausea and Vomiting Pharmacy Consult (Consult Rx Etoh Phenob Im/Po) 1 each MISCELLANE ONCE PRN; Protocol PRN Reason: Consult order Phenobarbital (Phenobarbital 15 Mg Tablet) 45 mg PO BID [facility] Stop: 11/17/24 21:01 Phenobarbital (Phenobarbital 30 Mg Tablet) 30 mg PO BID [facility] Stop: 11/19/24 21:01 Phenobarbital (Phenobarbital 30 Mg Tablet) 30 mg PO DAILY [facility] Stop: 11/21/24 09:01 Phenobarbital Sodium (Phenobarbital Sodium 130 Mg/Ml Vial Im Q3hx2) 205 mg IM Q3H [facility] Stop: 11/16/24 03:01 Polyethylene Glycol (Polyethylene Glycol 3350 17 Gm Powd.Pack) 17 gm PO DAILY PRN PRN Reason: Constipation Senna (Sennosides 8.6 Mg Tablet) 17.2 mg PO BEDTIME [facility] Sodium Chloride (0.9 % Sodium Chloride Flush 3 Ml Syringe) 3 ml IVFLUSH QSHIFT [facility] Home Medications ?Medication ?Instructions ?Recorded ?Confirmed ?Last Taken ?Type aripiprazole 10 mg tablet 10 mg PO BEDTIME 05/21/21 11/15/24 11/12/24 History doxepin 50 mg capsule 50 mg PO BEDTIME 05/21/21 11/15/24 11/12/24 History gabapentin 600 mg tablet 600 mg PO TID 05/21/21 11/15/24 11/12/24 History lorazepam 1 mg tablet 1 mg PO TID PRN Anxiety 05/21/21 11/15/24 09/28/24 History pantoprazole 40 mg tablet,delayed 40 mg PO DAILY@0630 05/21/21 11/15/24 11/12/24 History release bupropion HCl 300 mg 24 hr tablet, 300 mg PO DAILY 09/07/23 11/15/24 11/12/24 History extended release folic acid 1 mg tablet 1 mg PO DAILY 09/07/23 11/15/24 11/12/24 History lamotrigine 25 mg tablet 75 mg PO BEDTIME 09/07/23 11/15/24 11/12/24 History qsccqe-qaieraic-kjjooyf 1 cap PO TIDWM 08/23/24 11/15/24 11/12/24 History 36,000-114,000-180,000 unit capsule,delay rel (Creon) multivitamin 1 tab PO DAILY 08/23/24 11/15/24 11/12/24 History trazodone 150 mg tablet 150 mg PO BEDTIME 08/23/24 11/15/24 11/12/24 History albuterol sulfate 90 mcg/actuation 2 puff inhalation Q4H PRN 11/15/24 11/15/24 Unknown History aerosol inhaler (Ventolin HFA) Shortness Of Breath Or Wheezing Physical Exam Vital Signs and Narrative: Vital Signs: Last Vital Signs Temp 98.4 F 11/15/24 22:09 Pulse 111 H 11/15/24 22:09 Resp 17 11/15/24 22:09 BP 148/94 H 11/15/24 21:25 Pulse Ox 95 11/15/24 22:09 O2 Del Method Room Air 11/15/24 22:09 BMI result Body Mass Index 31.7 Alert and orientated X3, able to give good history. Neuro: CN II-X11 intact, no deficits, visual acuity intact EYES: PERRLA, EOM intact, sclerae nonicteric, conjunctiva pink ENT: hearing intact, no issues with swallowing, uvula midline, lips moist, nares patent no epistaxis Cardiac: S1 S2 RRR, tachycardic rate 100, no murmur, no JVD, no edema in Lower ext Pulmonary: lungs diminished bilaterally Abdominal: BS active in all 4 quadrants, no guarding, mild tenderness LUQ, no rebounding MSK: strength 5/5 upper and lower extremities : no CVA tenderness no bladder distension Extremities: no edema in lower extremities, PT and DP pulses palpable +2 Psych: mood stable, judgement and insight good Skin: Intact Results Labs 11/16/24 02:52 11/16/24 02:52 Labs: Laboratory Results - last 24 hr 11/15/24 11/15/24 11/15/24 18:19 19:04 22:49 MCV 87.6 MCH 30.6 MCHC 35.0 RDW 13.8 Plt Count 420 H D MPV 9.4 Immature Gran % (Auto) 0.7 H Neut % (Auto) 74.0 H Lymph % (Auto) 16.5 L Menard % (Auto) 8.1 Eos % (Auto) 0.1 Baso % (Auto) 0.6 Lymph # (Auto) 2.4 Menard # (Auto) 1.2 Eos # (Auto) 0.0 Baso # (Auto) 0.1 Abs Immat Gran (auto) 0.10 H Absolute Neuts (auto) 10.7 H Absolute Nucleated RBC 0.000 Nucleated RBC % (auto) 0.0 Anion Gap 22 H Estim Creat Clear Calc 96.5 Estimated GFR > 60 Random Glucose 156 H Calcium 8.4 Magnesium 1.8 Total Bilirubin 0.6 Direct Bilirubin 0.2 AST 109 H ALT 39 H Alkaline Phosphatase 179 H C-Reactive Protein 0.93 H Total Protein 6.9 Albumin 3.8 Lipase 8 Beta HCG, Quant 4 Urine Color Yellow Urine Appearance Clear Urine pH 7.0 Ur Specific Bethany >= 1.030 H Urine Protein 30 (1+) H Urine Glucose (UA) Negative Urine Ketones Negative Urine Blood Negative Urine Nitrite Negative Ur Leukocyte Esterase Negative Ethyl Alcohol 148 Influenza Type A (PCR) NEGATIVE Influenza Type B (PCR) NEGATIVE RSV RNA Qual (PCR) NEGATIVE SARS-CoV-2 RNA (RT-PCR) NEGATIVE ECG Attestation: I personally reviewed and interpreted this ECG as follows: (Sinus tachycardia QTC 485) Prior ECG tracings: available for review Imaging Radiologist's Impressions: CT ABD PELVIS FINDINGS: Diffusely hypodense liver consistent with hepatic steatosis. Hepatomegaly. Normal spleen. Normal kidneys. Normal adrenal glands. Pancreatic calcifications consistent with chronic pancreatitis. No evidence of acute pancreatitis. No visible cholelithiasis. No biliary dilation. No evidence of bowel obstruction or colitis. The appendix is not identified, however, no secondary signs of acute appendicitis. Mild diffuse bladder wall thickening. Unremarkable uterus. No ascites. No pneumoperitoneum. No lymphadenopathy. No acute fracture. Degenerative changes in the spine. No abdominal aortic aneurysm. IMPRESSION: No acute findings. Nonemergent/incidental findings above. Assessment and Plan (1) Alcohol abuse: Status: Acute Plan Pt is a 44 yo female with PMH alcohol abuse (binge drinking), cocaine use, tobacco use, bipolar disorder, depression/anxiety, PTSD, seziures related to alcohol withdrawal (last seizure over 15 years ago), chronic pancreatitis on Creon, hepatic steatosis, gastritis presented to the emergency department with 2 days of abdominal pain, nausea and vomiting. Patient has been bingeing alcohol and using cocaine. Patient being admitted for chronic pancreatitis with no evidence of acute pancreatitis along with alcohol withdrawal. Alcohol abuse, withdrawal potential CIWI protocol in place Phenobarbital ordered Thiamine, folic acid ordered Patient deferred need for addictions consultation Patient plans to call [place] [facility] [place] [facility] in the a.m. as her plan for discharge straight to detox. Case management consultation ordered for follow-up. Antiemtics for N/V Hydralazine IV q.6 p.r.n. for hypertension (likely secondary to nausea with vomiting) Chronic Pancreatitis Patient currently NPO, normally uses Creon with meals CT negative for any acute findings related to pancreatitis IV fluids continue, lipase is normal Patient educated on the need to follow up with GI as an outpatient Alcohol use related gastritis/ possible hematoemesis Protonix IV b.i.d., Pepcid IV added 1 episode of pink tinged emesis possibly related to worsening gastritis (no coffee ground emesis noted) Repeat H/H ordered, initial H/H 14.8/42.3 Lovenox held, pt is not on blood thinners GI consulted NPO Cocaine use Cows in place No benzodiazepines as pt is on phenobarbitol for ETOH withdrawal Patient defers need for addictions consultation Bipolar depression/anxiety/PTSD Continue home medications once med rec is completed Patient denies any SI or HI Patient does follow with psychiatrist in the outpatient setting DVT prophylaxis: Held secondary to pink tinged emesis with known alcohol-induced gastritis Med rec pending Full Code status 0017 Pt experienced episode of pink tinged emesis, no coffee grounds seen. H/H repeated 12.5/36.9 and CXR negative for acute findings. LA 8.0 and this is expected noting alcohol abuse and chronic pancreatitis. IVF continue to run. Pain is currently controlled. GI consulted after review with Hospitalist Attending, Dr. Junior. Quality Stroke Does the patient have a stroke diagnosis?: No Reason for No Anti-thrombotic by Day Two: N/A - Med Ordered VTE Prior VTE?: No VTE Risk Level:: Medical - moderate - high VTE Device Contraindication: N/A - Device Ordered VTE Drug Contraindication: N/A - Med Ordered
[2024-11-16] VITALS (9 sets, daily range): BP systolic 130–161; BP diastolic 79–102; PULSE 80–106; RESP 12–20; TEMP 36.1–37; O2SAT 93–99
[2024-11-16 00:21] LABS: Hematocrit 36.9 % (37.0-47.0); Hemoglobin 12.5 g/dl (12.0-16.0)
[2024-11-16] MEDS: PHENobarbitaL sodium 130 MG/ML VIAL IM Q3Hx2 205 MG IM ×2 (00:42→03:21)
[2024-11-16] MEDS: Lactated Ringers 1,000 ML 100 ML IVCONT ×3 (00:49→19:39)
[2024-11-16] MEDS: 0.9 % Sodium Chloride Flush 3 ML SYRINGE IVFLUSH ×2 (00:51→16:29)
[2024-11-16 02:20] LABS: Reflex Lactate? Lactic Acid Added
[2024-11-16 03:08] LABS: Hematocrit 35.8 % (37.0-47.0); Hemoglobin 11.9 g/dl (12.0-16.0); Imm Gran Abs Auto 0.11 X10*3/uL (0.00-0.03); Imm Gran Pct Auto 0.7 % (0.0-0.4); Lymphocytes Absolute Auto 2.0 X10*3/uL (1.2-4.9); MANUAL DIFF FLAG SCAN; Mean Corpuscular HGB Conc 33.2 g/dl (31.0-35.0); Mean Corpuscular Hemoglobin 29.7 pg (27.0-33.0); Mean Corpuscular Volume 89.3 fL (80.0-98.0); NRBC Abs Auto 0.000 X10*3/uL (0.0-0.012); NRBC Pct Auto 0.0 /100WBC (0.0-0.2); Platelet Count 303 X10*3/uL (160-400); Red Blood Count 4.01 X10*6/uL (4.20-5.50); SCAN SMEAR FLAG 1; White Blood Count 16.7 X10*3/uL (4.8-10.8)
[2024-11-16 03:38] LABS: Alanine Aminotransferase 34 U/L (0-31); Albumin Level 3.6 g/dL (3.5-5.0); Alkaline Phosphatase 152 U/L (39-117); Anion Gap 15 (12-20); Aspartate Amino Transferase 81 U/L (5-31); Blood Urea Nitrogen 3 mg/dL (9-16); Calcium 8.4 mg/dL (8.4-10.2); Carbon Dioxide 25 mmol/L (22-29); Chloride 102 mmol/L (96-108); Creatinine Clr Calc Pharmacy 99.0; Estimated Glomerular Filt Rate > 60; Potassium 4.0 mmol/L (3.3-5.1); Sodium 138 mmol/L (135-145); Total Protein 6.4 g/dL (6.5-8.0)
[2024-11-16 03:44] LABS: ~Lactic Acid-LAB USE ONLY 5.4 mmol/L (0.5-2.0)
[2024-11-16 04:58] LABS: Reflex Lactate? 2 Y
[2024-11-16 06:12] LABS: ~Lactic Acid-LAB USE ONLY 5.8 mmol/L (0.5-2.0)
--- NOTE | 2024-11-16 07:33 | PC.NURSE ---
Care of Pt assumed at change of shift. Pt is awake and A&Ox3 Pt c/o nausea and PRN Zofran given. Pt ambulates to bathroom safely and independently. Pt awaiting inpatient room assignment.
[2024-11-16] MEDS: Thiamine HCL 100 MG in 0.9 % Sodium Chloride 100 ML 202 MG IV (08:31)
--- NOTE | 2024-11-16 08:34 | P.PNIM_ITS ---
Subjective Subjective Date of Service: 11/16/24 Interval History: Seen and examined this morning Interval history: Still with severe 8/10 nonradiating pain across the upper abdomen. Has nausea but no ongoing vomiting. Tolerating small sips of clears and ice chips, looking to transition to clear liquid diet. She is afebrile. She was able to get a hold of a rehab facility and is supposed to be admitted there Monday. WA 2 Physical Exam 2 Vital Signs: Vital Signs: Last Vital Signs Temp 97.3 F 11/16/24 04:45 Pulse 103 H 11/16/24 04:45 Resp 13 11/16/24 04:45 BP 142/91 H 11/16/24 04:45 Pulse Ox 95 11/16/24 04:45 O2 Del Method Room Air 11/16/24 04:45 BMI result Body Mass Index 31.7 Constitutional - Awake and Alert, No apparent distress Eyes - PERRLA, EOMI Cardiovascular - S1S2, RRR, No edema Respiratory - Normal lung expansion, Normal respiratory effort, No respiratory distress, CTA bilaterally Gastrointestinal - ttp across upper abd. ND; +BS; No rebound or guarding. Ventral hernia noted Extremities - no calf tenderness bilaterally, no swelling Musculoskeletal - Normal inspection, normal ROM Skin - Warm/Dry Neurological - Alert & oriented x3, moving all extremities Psychological - Appropriate affect Objective Data Active Medications Acetaminophen (Acetaminophen 325 Mg Tablet) 650 mg PO Q6H PRN PRN Reason: Pain, Mild 1-3,fever,headache Albuterol/Ipratropium (Albuterol/Iprat 2.5/0.5mg 3 Ml Ampul.Neb) 3 ml INHALE Q4H PRN PRN Reason: Shortness of Breath/Wheezing Calcium Carbonate (Calcium Carbonate 750 Mg Tab.Chew) 750 mg PO Q4H PRN PRN Reason: Heartburn Enoxaparin Sodium (Enoxaparin Sodium 40 Mg/0.4 Ml Syringe) 40 mg SUBCUT Q24H [facility] Last Admin: 11/16/24 08:33 Dose: Not Given Documented By: JAMARI Non-Admin Reason: Physician Held Med Hydralazine HCl (Hydralazine Hcl 20 Mg/Ml Vial) 10 mg IVPUSH Q6H PRN; Protocol PRN Reason: SBP > 160 Hydromorphone HCl (Hydromorphone Hcl 0.5 Mg/0.5 Ml Syringe) 0.5 mg IVPUSH Q3H PRN; Protocol PRN Reason: Pain, Moderate(Pain Scale 4-6) Hydromorphone HCl (Hydromorphone Hcl 1 Mg/Ml Syringe) 1 mg IVPUSH Q3H PRN; Protocol PRN Reason: Pain, Severe (Pain Scale 7-10) Last Admin: 11/16/24 08:22 Dose: 1 mg Documented By: JAMARI Thiamine HCl 100 mg/ Sodium (Chloride) 101 mls @ 202 mls/hr IV DAILY [facility] Last Admin: 11/16/24 08:31 Dose: 202 mls/hr Documented By: JAMARI Folic Acid 1 mg/ Sodium (Chloride) 50.2 mls @ 100.4 mls/hr IV DAILY [facility] Lactated Ringer's (Lr) 1,000 mls @ 100 mls/hr IVCONT .Q10H [facility] Last Admin: 11/16/24 00:49 Dose: 100 mls/hr Documented By: SARAI Famotidine 20 mg/ Sodium (Chloride) 52 mls @ 200 mls/hr IV DAILY [facility] Last Admin: 11/16/24 08:32 Dose: Not Given Documented By: JAMARI Non-Admin Reason: Duplicate Order Magnesium Hydroxide (Milk Of Magnesia 30 Ml Oral.Susp) 30 ml PO DAILY PRN PRN Reason: Constipation Ondansetron HCl (Ondansetron Hcl 4 Mg/2 Ml Vial) 4 mg IVPUSH Q8H PRN PRN Reason: Nausea and Vomiting Last Admin: 11/16/24 07:02 Dose: 4 mg Documented By: JAMARI Pantoprazole Sodium (Pantoprazole Sodium 40 Mg/10 Ml Vial) 40 mg IVPUSH BID@0630,1630 [facility] Last Admin: 11/16/24 05:46 Dose: 40 mg Documented By: SARAI Pharmacy Consult (Consult Rx Etoh Phenob Im/Po) 1 each MISCELLANE ONCE PRN; Protocol PRN Reason: Consult order Phenobarbital (Phenobarbital 15 Mg Tablet) 45 mg PO BID [facility] Stop: 11/17/24 21:01 Last Admin: 11/16/24 08:21 Dose: 45 mg Documented By: JAMARI Phenobarbital (Phenobarbital 30 Mg Tablet) 30 mg PO BID [facility] Stop: 11/19/24 21:01 Phenobarbital (Phenobarbital 30 Mg Tablet) 30 mg PO DAILY [facility] Stop: 11/21/24 09:01 Polyethylene Glycol (Polyethylene Glycol 3350 17 Gm Powd.Pack) 17 gm PO DAILY PRN PRN Reason: Constipation Senna (Sennosides 8.6 Mg Tablet) 17.2 mg PO BEDTIME [facility] Sodium Chloride (0.9 % Sodium Chloride Flush 3 Ml Syringe) 3 ml IVFLUSH QSHIFT [facility] Last Admin: 11/16/24 07:03 Dose: Not Given Documented By: JAMARI Non-Admin Reason: IV Running Labs 11/16/24 02:52 11/16/24 02:52 Labs: Laboratory Results - last 24 hr 11/15/24 11/15/24 11/15/24 18:19 19:04 22:49 MCV 87.6 MCH 30.6 MCHC 35.0 RDW 13.8 Plt Count 420 H D MPV 9.4 Immature Gran % (Auto) 0.7 H Neut % (Auto) 74.0 H Lymph % (Auto) 16.5 L [place] % (Auto) 8.1 Eos % (Auto) 0.1 Baso % (Auto) 0.6 Lymph # (Auto) 2.4 [place] # (Auto) 1.2 Eos # (Auto) 0.0 Baso # (Auto) 0.1 Abs Immat Gran (auto) 0.10 H Absolute Neuts (auto) 10.7 H Absolute Nucleated RBC 0.000 Nucleated RBC % (auto) 0.0 Smear Tech's Comments Anion Gap 22 H Estim Creat Clear Calc 96.5 Estimated GFR > 60 Random Glucose 156 H Lactic Acid Lactic Acid F/U @ 2Hr Lactic Acid F/U @ 4Hr Calcium 8.4 Magnesium 1.8 Total Bilirubin 0.6 Direct Bilirubin 0.2 AST 109 H ALT 39 H Alkaline Phosphatase 179 H C-Reactive Protein 0.93 H Total Protein 6.9 Albumin 3.8 Lipase 8 Beta HCG, Quant 4 Urine Color Yellow Urine Appearance Clear Urine pH 7.0 Ur Specific [place] >= 1.030 H Urine Protein 30 (1+) H Urine Glucose (UA) Negative Urine Ketones Negative Urine Blood Negative Urine Nitrite Negative Ur Leukocyte Esterase Negative Urine RBC 0-2 Urine WBC 0-5 Ur Squamous Epith Cells 0-2 Urine Bacteria None Seen Hyaline Casts 0-2 Ethyl Alcohol 148 Influenza Type A (PCR) NEGATIVE Influenza Type B (PCR) NEGATIVE RSV RNA Qual (PCR) NEGATIVE SARS-CoV-2 RNA (RT-PCR) NEGATIVE 11/16/24 11/16/24 11/16/24 00:17 02:52 05:43 MCV 89.3 MCH 29.7 MCHC 33.2 RDW 13.8 Plt Count 303 D MPV 9.4 Immature Gran % (Auto) 0.7 H Neut % (Auto) 76.4 H Lymph % (Auto) 12.2 L [place] % (Auto) 10.1 Eos % (Auto) 0.2 Baso % (Auto) 0.4 Lymph # (Auto) 2.0 [place] # (Auto) 1.7 H Eos # (Auto) 0.0 Baso # (Auto) 0.1 Abs Immat Gran (auto) 0.11 H Absolute Neuts (auto) 12.8 H Absolute Nucleated RBC 0.000 Nucleated RBC % (auto) 0.0 Smear Tech's Comments VERIFIED Anion Gap 15 Estim Creat Clear Calc 99.0 Estimated GFR > 60 Random Glucose 112 Lactic Acid 8.2 H* Lactic Acid F/U @ 2Hr 5.4 H* Lactic Acid F/U @ 4Hr 5.8 H* Calcium 8.4 Magnesium Total Bilirubin 0.9 Direct Bilirubin AST 81 H ALT 34 H Alkaline Phosphatase 152 H C-Reactive Protein Total Protein 6.4 L Albumin 3.6 Lipase Beta HCG, Quant Urine Color Urine Appearance Urine pH Ur Specific [place] Urine Protein Urine Glucose (UA) Urine Ketones Urine Blood Urine Nitrite Ur Leukocyte Esterase Urine RBC Urine WBC Ur Squamous Epith Cells Urine Bacteria Hyaline Casts Ethyl Alcohol Influenza Type A (PCR) Influenza Type B (PCR) RSV RNA Qual (PCR) SARS-CoV-2 RNA (RT-PCR) Assessment and Plan (1) Alcohol abuse: Status: Acute (2) Alcoholic gastritis: Status: Acute (3) Pancreatitis: Status: Acute Plan 44-year-old female with a past medical history of polysubstance abuse, bipolar disorder, PTSD, alcohol use disorder, chronic abdominal pain, history of pancreatitis; presented to the hospital with a chief complaint of abdominal pain for about 4 days. Admitted for following Acute on chronic pancreatitis: Alcoholic Gastritis: IV PPI Pain control Agree IV fluids Tolerating full liquids. Discussed that given pain remains moderate-severe, recommend holding on advancement until pain level improves Alcohol use disorder Monitor on CIWA protocol. Phenobarbital per protocol Thiamine folate multivitamins. Bipolar disorder Continue abilify, wellbutrin, doxepin, lamictal, trazodone lorazepam prn PTSD prazosin Chronic pain gabapentin DVT prophylaxis: Lovenox Code status: Full code Ongoing inpatient stay due to severe abdominal pain requiring IV analgesics and aggressive IV fluids to prevent and monitor for any acute decompensation. Also being closely monitored for alcohol withdrawal given known history of alcohol withdrawal seizure on phenobarbital per protocol Quality Stroke Does the patient have a stroke diagnosis?: No Reason for No Anti-thrombotic by Day Two: N/A - Med Ordered VTE Prior VTE?: No VTE Risk Level:: Medical - moderate - high VTE Device Contraindication: N/A - Device Ordered VTE Drug Contraindication: N/A - Med Ordered
[2024-11-16] MEDS: buPROPion HCl XL 300 MG TAB.ER.24H PO (09:15)
--- NOTE | 2024-11-16 09:52 | PC.NURSE ---
workers' compensation claims supervisor at bedside for consult.
[2024-11-16] MEDS: Lipase/Prot/Amylase 12/38/60K CAPSULE.DR 3 CAP PO (16:28)
--- NOTE | 2024-11-16 17:58 | P.EN_ITS ---
Event Note Date of Service: 11/16/24 Event Note: GI Consult-Full note dictated-History from patient and EMR Imp: Chronic pancreatitis, abdominal pain, N/V with small amount of hematemesis, and EtOH-induced hepatitis in the setting of active EtOH abuse. She presently appears stable and denies any further signs of GI bleeding. She has tolerated her liquid diet and reports less abdominal pain. I suspect the bleeding was due to some gastritis, esophagitis, and/or a Miranda-Negro tear. Rec: Agree with supportive care, F/U labs, PPI therapy, advance diet as tolerated with her pancreas enzyme replacement therapy, and EtOH abstinence. She is aware of the need for the latter and has plans to enter rehab after di scharge. I do not think an upper endoscopy is needed given the clinical history. I did advise her to be sure to F/U at [facility]. However, please call if any signs of active bleeding. Thanks Time Spent With Patient Time: Total time managing care of this patient today ____ minutes.
[2024-11-16] MEDS: oxyCODONE HCl Immed Release 5 MG TABLET PO (18:17)
[2024-11-17] VITALS (10 sets, daily range): BP systolic 105–124; BP diastolic 56–77; PULSE 103–113; RESP 16–20; TEMP 36.5–37; O2SAT 93–96
--- NOTE | 2024-11-17 02:57 | CONS_ITS ---
DATE OF SERVICE: 11/16/2024 REASON FOR CONSULTATION: Abdominal pain, elevated LFTs, hematemesis, and chronic pancreatitis. HISTORY OF PRESENT ILLNESS: This has been obtained from the patient and the medical record. The patient is a 44-year-old female with a history of alcohol abuse, which remains active despite her history of chronic pancreatitis and other problems in relation to alcohol. She came to the ER due to increasing abdominal pain over the past 48 hours. She describes that prior to that her pain had been in good control and was not particularly bothering her. She had been eating fairly well at home. Due to the onset of her pain, she came to the ER. In the ER, she had a couple of episodes of vomiting with small amounts of bright red blood mixed with it. She denies any signs of bleeding at home such as melena, hematochezia, nor any hematemesis at home. Since arriving on the medical floor, she did have 1 more episode of vomiting but there was no further sign of bleeding. She does report that her abdominal pain is somewhat improved since admission. She has been tolerating clear liquids. She does not use any aspirin or NSAIDs at home. She does smoke occasionally. She has not noticed any jaundice. She is followed by [facility] and is on Creon pancreas enzyme replacement. She denies any known family history of pancreatic disease. She denies any chronic heartburn or dysphagia. She does take pantoprazole at home. She reports her bowel movements have been fairly regular at home and again without any signs of bleeding. MEDICATIONS: At home included albuterol inhaler p.r.n., Abilify, bupropion, Creon, doxepin, folic acid, gabapentin, Lamictal, lorazepam, vitamins, pantoprazole, prazosin and trazodone. Her medications here in the hospital include acetaminophen p.r.n., albuterol inhaler p.r.n., Abilify, bupropion, Tums, doxepin, folic acid, gabapentin, hydralazine p.r.n., Dilaudid p.r.n., Lamictal, lorazepam p.r.n., multivitamins, Zofran p.r.n., oxycodone p.r.n., IV pantoprazole, phenobarbital, MiraLAX p.r.n., prazosin, Senokot p.r.n., thiamin and trazodone. PAST MEDICAL HISTORY: Chronic pancreatitis as above. Chronic alcohol abuse. She denies any other surgeries. She denies history of heart disease, diabetes or stroke. She does have substance abuse as well in addition to the alcohol abuse. She has bipolar disease, depression, anxiety, and PTSD. Distant history of seizures from alcohol withdrawal. SOCIAL HISTORY: Alcohol and substance abuse as above. She smokes occasionally. FAMILY HISTORY: Noncontributory. REVIEW OF SYSTEMS: CONSTITUTIONAL: She has been feeling poorly at home in relation to ongoing alcohol abuse and recent abdominal pain. SKIN: No rash, no pruritus. CARDIAC: No chest pain. PULMONARY: No cough or hemoptysis. GI: As above. URINARY: No dysuria or hematuria. PHYSICAL EXAMINATION: GENERAL: The patient is alert comfortable-appearing female in no distress. SKIN: Warm and dry. Nonjaundiced. Anicteric sclerae. NECK: Supple. ABDOMEN: Soft, nondistended. Some mild left upper quadrant tenderness without mass, rebound, or guarding. LABORATORIES: Her CT scan on admission revealed a fatty liver, hepatomegaly, normal spleen, pancreatic calcifications consistent with chronic pancreatitis, no sign of biliary disease or gallstones, no ascites, and no sign of any bowel obstruction. There was no evidence of any acute pancreatitis on the CT scan. Chest x-ray was negative. White blood cell count 16.7, hemoglobin 11.9 compared to 12.5 earlier. MCV 89, platelets 303,000. Normal electrolytes. BUN 3, creatinine 0.8, AST 81, ALT 34, alkaline phosphatase 152, albumin 3.6. Lipase was normal at 8. Alcohol level was 148. IMPRESSION: The patient is an unfortunate 44-year-old female with ongoing active alcohol abuse, presenting with recurrent abdominal pain in relation to chronic pancreatitis, some mild alcohol induced hepatitis, and some limited vomiting with upper GI bleeding. She does not show any signs of active bleeding at the present time. I suspect the bleeding was in relation to some esophagitis, gastritis, and/or a Miranda-Negro tear. I certainly do not think this represents variceal bleeding given the clinical description. I would hold off on endoscopy at this time given the clinical history and her good clinical appearance from that standpoint. Her alcohol induced hepatitis seems to be mild and certainly without any signs of liver failure nor need for steroids at this time. There are no signs of any acute pancreatitis. I did review with her in detail the need for long-term abstinence from alcohol and hopefully she will be able to get into rehab shortly after discharge. She does seem to have a good understanding of this. I would otherwise agree with supportive care, followup laboratories, continue PPI therapy, and advance her diet as tolerated. She should continue the pancreas enzyme replacement. I did advise her to be sure to follow up with her [facility] GI physicians. Please advise me if I can be of any further assistance while she is here in the hospital. Thank you for the consultation. MD RIA Watson/BERNARD / [phone] MTDD
[2024-11-17] MEDS: Lactated Ringers 1,000 ML 100 ML IVCONT ×2 (03:34→14:19)
[2024-11-17 06:09] LABS: MANUAL DIFF FLAG NO
[2024-11-17 06:13] LABS: INTERNATIONAL NORM RATIO 1.2 (0.9-1.1); Prothrombin Time 14.0 SEC (10.9-12.4)
[2024-11-17 06:38] LABS: Alanine Aminotransferase 25 U/L (0-31); Albumin Level 3.3 g/dL (3.5-5.0); Alkaline Phosphatase 123 U/L (39-117); Anion Gap 17 (12-20); Aspartate Amino Transferase 66 U/L (5-31); Blood Urea Nitrogen 6 mg/dL (9-16); Calcium 8.4 mg/dL (8.4-10.2); Carbon Dioxide 20 mmol/L (22-29); Chloride 101 mmol/L (96-108); Creatinine Clr Calc Pharmacy 60.5; Estimated Glomerular Filt Rate 46; Potassium 3.4 mmol/L (3.3-5.1); Sodium 135 mmol/L (135-145); Total Protein 6.0 g/dL (6.5-8.0)
[2024-11-17 06:55] LABS: Hematocrit 34.1 % (37.0-47.0); Hemoglobin 11.0 g/dl (12.0-16.0); Imm Gran Abs Auto 0.05 X10*3/uL (0.00-0.03); Imm Gran Pct Auto 0.6 % (0.0-0.4); Lymphocytes Absolute Auto 2.4 X10*3/uL (1.2-4.9); Mean Corpuscular HGB Conc 32.3 g/dl (31.0-35.0); Mean Corpuscular Hemoglobin 29.5 pg (27.0-33.0); Mean Corpuscular Volume 91.4 fL (80.0-98.0); NRBC Abs Auto 0.000 X10*3/uL (0.0-0.012); NRBC Pct Auto 0.0 /100WBC (0.0-0.2); Platelet Count 246 X10*3/uL (160-400); Red Blood Count 3.73 X10*6/uL (4.20-5.50); White Blood Count 8.8 X10*3/uL (4.8-10.8)
[2024-11-17] MEDS: 0.9 % Sodium Chloride Flush 3 ML SYRINGE IVFLUSH ×3 (08:25→21:23)
[2024-11-17] MEDS: Lipase/Prot/Amylase 12/38/60K CAPSULE.DR 3 CAP PO ×3 (08:29→16:33)
[2024-11-17] MEDS: buPROPion HCl XL 300 MG TAB.ER.24H PO (08:30)
[2024-11-17] MEDS: Thiamine HCL 100 MG in 0.9 % Sodium Chloride 100 ML 202 MG IV (08:30)
--- NOTE | 2024-11-17 08:37 | PC.NURSE ---
BP 105/63 pulse 105,Dr. Freitas aware ,ok to adm Phenobarbital as ordered
--- NOTE | 2024-11-17 10:14 | HO.PM.IMPN ---
Subjective Subjective Date of Service: 11/17/24 Interval History: Seen and examined this morning Interval history:follow up on alcoholic gastritis, chronic pancreatitis Pain is much better, tolerating clear diet and would like diet advanced Physical Exam Vital Signs: Vital Signs: Last Vital Signs Temp 98.5 F 11/17/24 07:55 Pulse 105 H 11/17/24 08:32 Resp 16 11/17/24 07:55 BP 124/58 L 11/17/24 09:39 Pulse Ox 94 11/17/24 07:55 O2 Del Method Room Air 11/17/24 07:55 BMI result Body Mass Index 31.7 Constitutional - Awake and Alert, No apparent distress Eyes - PERRLA, EOMI Cardiovascular - S1S2, RRR, No edema Respiratory - Normal lung expansion, Normal respiratory effort, No respiratory distress, CTA bilaterally Gastrointestinal - ttp across upper abd. ND; +BS; No rebound or guarding. Ventral hernia noted Extremities - no calf tenderness bilaterally, no swelling Musculoskeletal - Normal inspection, normal ROM Skin - Warm/Dry Neurological - Alert & oriented x3, moving all extremities Psychological - Appropriate affect Objective Data Active Medications Acetaminophen (Acetaminophen 325 Mg Tablet) 650 mg PO Q6H PRN PRN Reason: Pain, Mild 1-3,fever,headache Albuterol Sulfate (Albuterol Sulfate 90 Mcg 8 Gm Inhaler) 2 puff INHALE Q4H PRN PRN Reason: Shortness Of Breath Or Wheezing Albuterol/Ipratropium (Albuterol/Iprat 2.5/0.5mg 3 Ml Ampul.Neb) 3 ml INHALE Q4H PRN PRN Reason: Shortness of Breath/Wheezing Lipase/Protease/Amylase (Lipase/Prot/Amylase 12/38/60k Capsule.) 3 cap PO TIDWM [facility] Last Admin: 11/17/24 08:29 Dose: 3 cap Documented By: HUSSAIN Aripiprazole (Aripiprazole 10 Mg Tablet) 10 mg PO BEDTIME [facility] Last Admin: 11/16/24 19:43 Dose: 10 mg Documented By: JUNAID Bupropion HCl (Bupropion Hcl Xl 300 Mg Tab.Er.24h) 300 mg PO DAILY [facility] Last Admin: 11/17/24 08:30 Dose: 300 mg Documented By: HUSSAIN Calcium Carbonate (Calcium Carbonate 750 Mg Tab.Chew) 750 mg PO Q4H PRN PRN Reason: Heartburn Doxepin HCl (Doxepin Hcl 25 Mg Capsule) 50 mg PO BEDTIME [facility] Last Admin: 11/16/24 19:45 Dose: 50 mg Documented By: JUNAID Famotidine (Famotidine/Pf 20 Mg/2 Ml Vial) 20 mg IVPUSH DAILY [facility] Last Admin: 11/17/24 08:28 Dose: 20 mg Documented By: HUSSAIN Gabapentin (Gabapentin 600 Mg Tablet) 600 mg PO TID [facility] Last Admin: 11/17/24 08:30 Dose: 600 mg Documented By: HUSSAIN Hydralazine HCl (Hydralazine Hcl 20 Mg/Ml Vial) 10 mg IVPUSH Q6H PRN; Protocol PRN Reason: SBP > 160 Hydromorphone HCl (Hydromorphone Hcl 0.5 Mg/0.5 Ml Syringe) 0.5 mg IVPUSH Q3H PRN; Protocol PRN Reason: Pain, Moderate(Pain Scale 4-6) Hydromorphone HCl (Hydromorphone Hcl 1 Mg/Ml Syringe) 1 mg IVPUSH Q3H PRN; Protocol PRN Reason: Pain, Severe (Pain Scale 7-10) Last Admin: 11/17/24 09:48 Dose: 1 mg Documented By: JANEL Thiamine HCl 100 mg/ Sodium (Chloride) 101 mls @ 202 mls/hr IV DAILY [facility] Last Infusion: 11/17/24 09:39 Dose: Infused Documented By: JANEL Folic Acid 1 mg/ Sodium (Chloride) 50.2 mls @ 100.4 mls/hr IV DAILY [facility] Last Infusion: 11/16/24 09:38 Dose: Infused Documented By: JAMARI Lactated Ringer's (Lr) 1,000 mls @ 100 mls/hr IVCONT .Q10H [facility] Last Admin: 11/17/24 03:34 Dose: 100 mls/hr Documented By: JUNAID Lamotrigine (Lamotrigine 25 Mg Tablet) 75 mg PO BEDTIME [facility] Last Admin: 11/16/24 19:44 Dose: 75 mg Documented By: JUNAID Lorazepam (Lorazepam 1 Mg Tablet) 1 mg PO TID PRN PRN Reason: Anxiety Last Admin: 11/16/24 09:15 Dose: 1 mg Documented By: JAMARI Magnesium Hydroxide (Milk Of Magnesia 30 Ml Oral.Susp) 30 ml PO DAILY PRN PRN Reason: Constipation Metoclopramide HCl (Metoclopramide Hcl 10 Mg/2 Ml Vial) 10 mg IVPUSH Q6H PRN PRN Reason: Nausea and Vomiting Last Admin: 11/16/24 18:11 Dose: 10 mg Documented By: HUSSAIN Multivitamins/Vitamin C (Multivitamin Tablet) 1 tab PO DAILY [facility] Last Admin: 11/17/24 08:30 Dose: 1 tab Documented By: HUSSAIN Ondansetron HCl (Ondansetron Hcl 4 Mg/2 Ml Vial) 4 mg IVPUSH Q8H PRN PRN Reason: Nausea and Vomiting Last Admin: 11/16/24 07:02 Dose: 4 mg Documented By: JAMARI Oxycodone HCl (Oxycodone Hcl Immed Release 5 Mg Tablet) 5 mg PO Q6H PRN PRN Reason: Pain, Moderate(Pain Scale 4-6) Last Admin: 11/16/24 18:17 Dose: 5 mg Documented By: HUSSAIN Pantoprazole Sodium (Pantoprazole Sodium 40 Mg/10 Ml Vial) 40 mg IVPUSH BID@0630,1630 [facility] Last Admin: 11/17/24 04:55 Dose: 40 mg Documented By: JUNAID Pharmacy Consult (Consult Rx Etoh Phenob Im/Po) 1 each MISCELLANE ONCE PRN; Protocol PRN Reason: Consult order Phenobarbital (Phenobarbital 15 Mg Tablet) 45 mg PO BID [facility] Stop: 11/17/24 21:01 Last Admin: 11/17/24 08:36 Dose: 45 mg Documented By: HUSSAIN Phenobarbital (Phenobarbital 30 Mg Tablet) 30 mg PO BID [facility] Stop: 11/19/24 21:01 Phenobarbital (Phenobarbital 30 Mg Tablet) 30 mg PO DAILY [facility] Stop: 11/21/24 09:01 Polyethylene Glycol (Polyethylene Glycol 3350 17 Gm Powd.Pack) 17 gm PO DAILY PRN PRN Reason: Constipation Prazosin HCl (Prazosin Hcl 5 Mg Capsule) 5 mg PO BEDTIME [facility]; Protocol Last Admin: 11/16/24 19:43 Dose: 5 mg Documented By: JUNAID Senna (Sennosides 8.6 Mg Tablet) 17.2 mg PO BEDTIME [facility] Last Admin: 11/16/24 19:44 Dose: 17.2 mg Documented By: JUNAID Sodium Chloride (0.9 % Sodium Chloride Flush 3 Ml Syringe) 3 ml IVFLUSH QSHIFT [facility] Last Admin: 11/17/24 08:25 Dose: 3 ml Documented By: HUSSAIN Trazodone HCl (Trazodone Hcl 50 Mg Tablet) 150 mg PO BEDTIME [facility] Last Admin: 11/16/24 19:45 Dose: 150 mg Documented By: JUNAID Labs 11/17/24 05:51 11/17/24 05:51 Labs: Laboratory Results - last 24 hr 11/17/24 05:51 MCV 91.4 MCH 29.5 MCHC 32.3 RDW 13.6 Plt Count 246 MPV 9.9 Immature Gran % (Auto) 0.6 H Neut % (Auto) 60.3 Lymph % (Auto) 26.9 [place] % (Auto) 10.2 Eos % (Auto) 1.2 Baso % (Auto) 0.8 Lymph # (Auto) 2.4 [place] # (Auto) 0.9 Eos # (Auto) 0.1 Baso # (Auto) 0.1 Abs Immat Gran (auto) 0.05 H Absolute Neuts (auto) 5.3 Absolute Nucleated RBC 0.000 Nucleated RBC % (auto) 0.0 PT 14.0 H INR 1.2 H Anion Gap 17 Estim Creat Clear Calc 60.5 Estimated GFR 46 Random Glucose 148 H Calcium 8.4 Total Bilirubin 1.1 H Direct Bilirubin 0.6 H AST 66 H ALT 25 Alkaline Phosphatase 123 H Total Protein 6.0 L Albumin 3.3 L Assessment and Plan (1) Alcohol abuse: Status: Acute (2) Alcoholic gastritis: Status: Acute (3) Pancreatitis: Status: Acute Plan 44-year-old female with a past medical history of polysubstance abuse, bipolar disorder, PTSD, alcohol use disorder, chronic abdominal pain, history of pancreatitis; presented to the hospital with a chief complaint of abdominal pain for about 4 days. Admitted for following Acute on chronic pancreatitis: Alcoholic Gastritis: IV PPI Pain control IV fluids Tolerating full liquids, advance to regular soft diet. Discussed that given pain remains moderate-severe, recommend holding on advancement until pain level improves Alcohol use disorder, no obvious sings of withdrawal Monitor on CIWA protocol. Phenobarbital per protocol Thiamine folate multivitamins. addiction med consult Bipolar disorder Continue abilify, wellbutrin, doxepin, lamictal, trazodone lorazepam prn PTSD prazosin Chronic pain gabapentin DVT prophylaxis: Lovenox Code status: Full code Ongoing inpatient stay due to severe abdominal pain requiring IV analgesics and aggressive IV fluids to prevent and monitor for any acute decompensation. Also being closely monitored for alcohol withdrawal given known history of alcohol withdrawal seizure on phenobarbital per protocol Quality Stroke Does the patient have a stroke diagnosis?: No Reason for No Anti-thrombotic by Day Two: N/A - Med Ordered VTE Prior VTE?: No VTE Risk Level:: Medical - moderate - high VTE Device Contraindication: N/A - Device Ordered VTE Drug Contraindication: N/A - Med Ordered
--- NOTE | 2024-11-17 11:16 | PC.NURSE ---
per addiction nurse patient will need Narcan upon discharge ,dr. Freitas notified
--- NOTE | 2024-11-17 11:40 | MHC.RECOVRN ---
Met with pt in room 384 to follow-up with questions or concerns and provide community resources to support AUD. Pt reported she was attempting to contact [facility] for bed search but stated her disconnected her phone. Pt was allowed to utilize the [facility] phone to make the call. Pt states [facility] informed her they have several female beds available and are able to provide transportation upon discharge. Pt also stated [facility] will need a discharge summary faxed to them when she leaves the hospital. Pt also expressed she will return to her home to obtain clothing and will utilize a police escort if needed for fear of sabotaging her clothing and belongings.? Pt expressed that if there were delays between discharge and transportation to [facility] she is able to temporarily stay with her mother as her is a reported trigger for alcohol recurrence. Medications for AUD were discussed, however pt voiced that she has tried naltrexone in the past and ?it didn?t work?. Pt is goal oriented and looking forward to ?starting this journey again. It?s been hard, but I need it?.? During conversation, pt reported a suspected overdose ?2 years ago?? on what she believed to be prescription Percocet. ?I just took a little piece because they were Perc 30?s and I usually just take 5?s?. Pt stated she was awoken by EMS and police and has no recollection of the events between taking the drug and awaking. Pt provided fentanyl test strips with other resources including detox facilities, IOP, peer recovery facilities, and [facility].? Pts assigned SW updated on discharge plan. Pt denies further questions or concerns at this time. [facility] to follow up tomorrow
[2024-11-17] MEDS: oxyCODONE HCl Immed Release 5 MG TABLET PO ×2 (14:27→21:53)
--- NOTE | 2024-11-17 16:26 | MHC.CM.PN ---
PT REPORTS SHE LIVES WITH HER AND IS INDEPENDENT WITH CARE SHE HAS NO DME AND NO SERVICES COPY OF HCP REQUESTED PCP: DILLON MCKEON DCP: PT REPORTS SHE WILL BE GOING TO [facility], HOWEVER WILL NEED TO GO HOME FIRST MAY NEED SHUTTLE TRANSPORT TO HOME
[2024-11-18] VITALS (8 sets, daily range): BP systolic 101–125; BP diastolic 55–77; PULSE 92–115; RESP 12–18; TEMP 36.2–37.3; O2SAT 92–97
[2024-11-18] MEDS: Thiamine HCL 100 MG in 0.9 % Sodium Chloride 100 ML 202 MG IV (07:38)
[2024-11-18] MEDS: oxyCODONE HCl Immed Release 5 MG TABLET PO ×4 (07:38→21:07)
[2024-11-18] MEDS: Lipase/Prot/Amylase 12/38/60K CAPSULE.DR 3 CAP PO ×3 (07:39→17:09)
[2024-11-18] MEDS: buPROPion HCl XL 300 MG TAB.ER.24H PO (07:40)
--- NOTE | 2024-11-18 13:04 | MHC.RECOVRN ---
Addendum entered by Alyssa Jack RN 11/18/24 16:27: Pt called [facility] and there are no longer female beds available. Pt was placed on a wait list. Pt is aware that she may need to wait for a bed to become available from home. No further questions or concerns offered at this time. Original Note: Met with Rufina in follow up this morning at 9am to assist with [facility] referral. Pt stated she now has access to her phone and will call [facility]. Will follow up again with patient shortly to inquire on [facility] bed search status.
--- NOTE | 2024-11-18 13:27 | P.PNIM_ITS ---
Subjective Subjective Date of Service: 11/18/24 Interval History: Seen and examined this morning Interval history:follow up on alcoholic gastritis, chronic pancreatitis ate regular diet with some residual pain, no obvious sings of withdrawal Physical Exam 2 Vital Signs: Vital Signs: Last Vital Signs Temp 97.3 F 11/18/24 12:00 Pulse 115 H 11/18/24 12:00 Resp 18 11/18/24 12:00 BP 116/77 11/18/24 12:00 Pulse Ox 95 11/18/24 12:00 O2 Del Method Room Air 11/18/24 12:00 BMI result Body Mass Index 31.7 Constitutional - Awake and Alert, No apparent distress Eyes - PERRLA, EOMI Cardiovascular - S1S2, RRR, No edema Respiratory - Normal lung expansion, Normal respiratory effort, No respiratory distress, CTA bilaterally Gastrointestinal - ttp across upper abd. ND; +BS; No rebound or guarding. Ventral hernia noted Extremities - no calf tenderness bilaterally, no swelling Musculoskeletal - Normal inspection, normal ROM Skin - Warm/Dry Neurological - Alert & oriented x3, moving all extremities Psychological - Appropriate affect Objective Data Active Medications Acetaminophen (Acetaminophen 325 Mg Tablet) 650 mg PO Q6H PRN PRN Reason: Pain, Mild 1-3,fever,headache Albuterol Sulfate (Albuterol Sulfate 90 Mcg 8 Gm Inhaler) 2 puff INHALE Q4H PRN PRN Reason: Shortness Of Breath Or Wheezing Albuterol/Ipratropium (Albuterol/Iprat 2.5/0.5mg 3 Ml Ampul.Neb) 3 ml INHALE Q4H PRN PRN Reason: Shortness of Breath/Wheezing Lipase/Protease/Amylase (Lipase/Prot/Amylase 12/38/60k Capsule.Dr) 3 cap PO TIDWM [facility] Last Admin: 11/18/24 11:54 Dose: 3 cap Documented By: JONI Aripiprazole (Aripiprazole 10 Mg Tablet) 10 mg PO BEDTIME [facility] Last Admin: 11/17/24 21:23 Dose: 10 mg Documented By: JARRETT Bupropion HCl (Bupropion Hcl Xl 300 Mg Tab.Er.24h) 300 mg PO DAILY [facility] Last Admin: 11/18/24 07:40 Dose: 300 mg Documented By: JONI Calcium Carbonate (Calcium Carbonate 750 Mg Tab.Chew) 750 mg PO Q4H PRN PRN Reason: Heartburn Doxepin HCl (Doxepin Hcl 25 Mg Capsule) 50 mg PO BEDTIME [facility] Last Admin: 11/17/24 21:20 Dose: 50 mg Documented By: JARRETT Famotidine (Famotidine/Pf 20 Mg/2 Ml Vial) 20 mg IVPUSH DAILY [facility] Last Admin: 11/18/24 07:38 Dose: 20 mg Documented By: JONI Gabapentin (Gabapentin 600 Mg Tablet) 600 mg PO TID [facility] Last Admin: 11/18/24 07:39 Dose: 600 mg Documented By: JONI Hydralazine HCl (Hydralazine Hcl 20 Mg/Ml Vial) 10 mg IVPUSH Q6H PRN; Protocol PRN Reason: SBP > 160 Thiamine HCl 100 mg/ Sodium (Chloride) 101 mls @ 202 mls/hr IV DAILY [facility] Last Infusion: 11/18/24 08:11 Dose: Infused Documented By: JONI Folic Acid 1 mg/ Sodium (Chloride) 50.2 mls @ 100.4 mls/hr IV DAILY [facility] Last Infusion: 11/18/24 09:20 Dose: Infused Documented By: JONI Lamotrigine (Lamotrigine 25 Mg Tablet) 75 mg PO BEDTIME [facility] Last Admin: 11/17/24 21:22 Dose: 75 mg Documented By: JARRETT Lorazepam (Lorazepam 1 Mg Tablet) 1 mg PO TID PRN PRN Reason: Anxiety Last Admin: 11/16/24 09:15 Dose: 1 mg Documented By: JAMARI Magnesium Hydroxide (Milk Of Magnesia 30 Ml Oral.Susp) 30 ml PO DAILY PRN PRN Reason: Constipation Metoclopramide HCl (Metoclopramide Hcl 10 Mg/2 Ml Vial) 10 mg IVPUSH Q6H PRN PRN Reason: Nausea and Vomiting Last Admin: 11/16/24 18:11 Dose: 10 mg Documented By: HUSSAIN Multivitamins/Vitamin C (Multivitamin Tablet) 1 tab PO DAILY [facility] Last Admin: 11/18/24 07:40 Dose: 1 tab Documented By: JONI Ondansetron HCl (Ondansetron Hcl 4 Mg/2 Ml Vial) 4 mg IVPUSH Q8H PRN PRN Reason: Nausea and Vomiting Last Admin: 11/16/24 07:02 Dose: 4 mg Documented By: JAMARI Oxycodone HCl (Oxycodone Hcl Immed Release 5 Mg Tablet) 5 mg PO Q6H PRN PRN Reason: Pain, Moderate(Pain Scale 4-6) Last Admin: 11/18/24 07:38 Dose: 5 mg Documented By: JONI Pantoprazole Sodium (Pantoprazole Sodium 40 Mg/10 Ml Vial) 40 mg IVPUSH BID@0630,1630 [facility] Last Admin: 11/18/24 06:34 Dose: 40 mg Documented By: JARRETT Pharmacy Consult (Consult Rx Etoh Phenob Im/Po) 1 each MISCELLANE ONCE PRN; Protocol PRN Reason: Consult order Phenobarbital (Phenobarbital 30 Mg Tablet) 30 mg PO BID [facility] Stop: 11/19/24 21:01 Last Admin: 11/18/24 07:40 Dose: 30 mg Documented By: JONI Phenobarbital (Phenobarbital 30 Mg Tablet) 30 mg PO DAILY [facility] Stop: 11/21/24 09:01 Polyethylene Glycol (Polyethylene Glycol 3350 17 Gm Powd.Pack) 17 gm PO DAILY PRN PRN Reason: Constipation Last Admin: 11/18/24 08:37 Dose: 17 gm Documented By: JONI Prazosin HCl (Prazosin Hcl 5 Mg Capsule) 5 mg PO BEDTIME [facility]; Protocol Last Admin: 11/17/24 21:20 Dose: 5 mg Documented By: JARRETT Senna (Sennosides 8.6 Mg Tablet) 17.2 mg PO BEDTIME [facility] Last Admin: 11/17/24 21:20 Dose: 17.2 mg Documented By: JARRETT Sodium Chloride (0.9 % Sodium Chloride Flush 3 Ml Syringe) 3 ml IVFLUSH QSHIFT [facility] Last Admin: 11/18/24 07:38 Dose: Not Given Documented By: JONI Non-Admin Reason: IV Running Trazodone HCl (Trazodone Hcl 50 Mg Tablet) 150 mg PO BEDTIME [facility] Last Admin: 11/17/24 21:22 Dose: 150 mg Documented By: JARRETT Labs 11/17/24 05:51 11/17/24 05:51 Assessment and Plan (1) Alcohol abuse: Status: Acute (2) Alcoholic gastritis: Status: Acute (3) Pancreatitis: Status: Acute Plan 44-year-old female with a past medical history of polysubstance abuse, bipolar disorder, PTSD, alcohol use disorder, chronic abdominal pain, history of pancreatitis; presented to the hospital with a chief complaint of abdominal pain for about 4 days. Admitted for following Acute on chronic pancreatitis: improved Alcoholic Gastritis: IV PPI to po ppi oral pain control advance diet Alcohol use disorder, no obvious sings of withdrawal Monitor on CIWA protocol. Phenobarbital per protocol Thiamine folate multivitamins. addiction med consult Bipolar disorder Continue abilify, wellbutrin, doxepin, lamictal, trazodone lorazepam prn PTSD prazosin Chronic pain gabapentin DVT prophylaxis: Lovenox Code status: Full code reassess for dc later today Quality Stroke Does the patient have a stroke diagnosis?: No Reason for No Anti-thrombotic by Day Two: N/A - Med Ordered VTE Prior VTE?: No VTE Risk Level:: Medical - moderate - high VTE Device Contraindication: N/A - Device Ordered VTE Drug Contraindication: N/A - Med Ordered
[2024-11-18] MEDS: 0.9 % Sodium Chloride Flush 3 ML SYRINGE IVFLUSH ×2 (15:29→20:45)
--- NOTE | 2024-11-18 16:45 | MHC.CM.PN ---
Patient not cleared to discharge. Patient c/o ab pain. DP [facility] once a bed is available. She may dc to home if a bed is not available. CM will follow.
[2024-11-19] VITALS: BP 102/51; PULSE 93; RESP 19; TEMP 36.9; O2SAT 96
[2024-11-19 03:46] VITALS: BP 105/57; PULSE 92; RESP 17; TEMP 36.7; O2SAT 94
[2024-11-19] MEDS: oxyCODONE HCl Immed Release 5 MG TABLET PO ×2 (04:04→08:23)
[2024-11-19 07:20] VITALS: BP 104/68; PULSE 89; RESP 18; TEMP 36.4; O2SAT 97
--- NOTE | 2024-11-19 07:25 | PM.DS ---
DS: Providers Provider Date of Service: 11/19/24 Date of admission: 11/15/24 21:35 Date of discharge: 11/19/24 Primary care physician: Anai Lane NP Consults: 11/15/24 22:57 Addiction Medicine Provider Routine Consulting Provider: Addiction Covering Reason for consultation: ETOH Abuse Has provider been notified: No 11/16/24 00:12 Consult to Gastroenterology Routine Consulting Provider: Maksim Negro Reason for consultation: [place] tinged emesis secondary to alcohol-induced gastritis Has provider been notified: No 11/16/24 00:14 Consult to Case Management Routine Comment: Rev pt's plan for detox DS: Diagnosis Discharge Diagnosis (1) Alcohol abuse: Status: Acute (2) Alcoholic gastritis: Status: Acute (3) Pancreatitis: Status: Acute DS: Summary Hospital Course Hospital Course: Chief Complaint: abdominal pain Pt is a 44 yo female with PMH alcohol abuse (binge drinking), cocaine use, tobacco use, bipolar disorder, depression/anxiety, PTSD, seziures related to alcohol withdrawal (last seizure over 15 years ago), chronic pancreatitis on Creon, hepatic steatosis, gastritis presents to the emergency room with 2 days of increasing abdominal pain, nausea with vomiting. Patient does admit to binge drinking using large twisted teas and multiple nips of fireball. 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 Patient denies any suicidal ideations or homicidal ideations. Patient recently was feeling suicidal due to a new drug that was started by her psychiatrist and that medication has since been stopped. Patient deferred need for addictions consultation as she has a plan to call [facility] in [facility], a detox/alcohol treatment center that she has attended in the past. She plans to stay there for 30 days. Patient plans to make the call in the morning on 11/16/2024. Patient also admits to using cocaine 2 days ago. Patient does not use cocaine all the time so patient feels her addiction to alcohol is greater than her addiction to cocaine. Patient denies any issues with her septum as she usually snorts the cocaine when she uses it. Patient denies any IV drug abuse history. Patient does smoke cigarettes but only on occasion and defers the need for nicotine patch at this time. CT scan in the emergency department notes no acute findings. There is evidence of pancreatic calcifications indicating chronic pancreatitis. Education was provided to patient to help her understand why she has chronic pancreatitis versus acute pancreatitis noting she has been bingeing alcohol. Patient's lipase is normal. Patient received droperidol with good effect related to her nausea and vomiting. Patient states Zofran has been ineffective. Patient does have a leukocytosis. Chest x-ray is pending. UA is negative for UTI. Transaminitis also present with a AST of 109, ALT 39, alk-phos 179 and a CRP of 0.93. T bilirubin is normal at 0.6. Patient does have evidence of hepatic steatosis and hepatomegaly. Patient was following with GI at [facility] [place] [place] as an outpatient in the past.. Patient was seen by GI specialists here at [facility] September of 2023 for acute on chronic pancreatitis. Patient had an MRCP which showed dilatation and tortuosity of the main pancreatic duct which measured up to 7 mm. Plan was for patient to have a follow-up MRCP in 4 months. It does not appear that patient had this follow-up testing although she has had repeated abdominal pelvis CTs with admissions for chronic pancreatitis related to alcohol use since September 2023. Patient currently on IV fluids and is NPO. Patient has been started on Protonix IV for alcohol-induced gastritis. Phenobarbital was also started in the ED. patient states she has history of seizures over 15 years ago x3 related to alcohol withdrawal. No indication for antibiotics at this time. 2358 PM: Patient reported bloody emesis that was thin and pink tinged to the nursing staff. This is different than what patient had been vomiting up prior. Suspected secondary to gastritis. Patient is ordered to start Protonix IV b.i.d.. Repeating H and H to ensure levels are sable Hosital coruse: This is a 43-year-old female with a past medical history of polysubstance abuse, bipolar disorder, PTSD, alcohol use disorder, chronic abdominal pain, and a history of pancreatitis. She presented to the hospital with a chief complaint of abdominal pain for approximately four days. She was admitted for alcohol withdrawal and suspected alcoholic gastritis and pancreatitis, despite a normal lipase level and no acute findings on abdominal CT. Alcohol withdrawal was managed with phenobarbital. The addiction and recovery team evaluated the patient and provided resources to support sobriety. Acute alcoholic gastritis was treated with a proton pump inhibitor (PPI), and presumed pancreatitis was managed conservatively with pain control and a gradual advancement of diet, which she is currently tolerating well. The patient is to continue her usual medications. She has been advised to follow up with her primary care provider (PCP) and utilize the addiction recovery resources provided to maintain sobriety Time Attestation Discharge Coordination Time (in mins): 40 Quality: Safe Use of Opioids Does Pt have an Active Cancer Diagnosis on the Problem List?: No Quality: Stroke Does the patient have a stroke diagnosis?: No Physical Exam Vital Signs: Vital Signs: Last Vital Signs Temp 97.6 F 11/19/24 07:20 Pulse 89 11/19/24 07:20 Resp 18 11/19/24 07:20 BP 104/68 11/19/24 07:20 Pulse Ox 97 11/19/24 07:20 O2 Del Method Room Air 11/19/24 07:20 BMI result Body Mass Index 31.7 Constitutional - Awake and Alert, No apparent distress Eyes - PERRLA, EOMI Cardiovascular - S1S2, RRR, No edema Respiratory - Normal lung expansion, Normal respiratory effort, No respiratory distress, CTA bilaterally Gastrointestinal - ttp across upper abd. ND; +BS; No rebound or guarding. Ventral hernia noted Extremities - no calf tenderness bilaterally, no swelling Musculoskeletal - Normal inspection, normal ROM Skin - Warm/Dry Neurological - Alert & oriented x3, moving all extremities Psychological - Appropriate affect DS: Data Data Completed and Pending Completed studies during hospitalization [Text1]: Procedures Detoxification Services for Substance Abuse Treatment (10/25/24) Discharge Plan Discharge Anticipated Discharge Date/Time: 11/19/24 07:26 Patient Disposition: Home, Self-Care Discharge Diagnosis: Alcoholic pancreatitis, alcohol withdrawal Referrals: Anai Lane NP [Primary Care Provider, Medical] - 1 Week Discharge Medications: Continued prazosin 5 mg Capsule 5 mg PO BEDTIME 30 Days Qty: 30 0RF doxepin 50 mg capsule 50 mg PO BEDTIME gabapentin 600 mg tablet 600 mg PO TID aripiprazole 10 mg tablet 10 mg PO BEDTIME lorazepam 1 mg tablet 1 mg PO TID PRN (Reason: Anxiety) pantoprazole 40 mg Tablet,Delayed Release (Dr/Ec) 40 mg PO DAILY@0630 multivitamin Tablet 1 tab PO DAILY trazodone 150 mg tablet 150 mg PO BEDTIME Creon 36,000-114,000- 180,000 unit capsule,delayed release(DR/EC) 1 cap PO TIDWM albuterol sulfate [Ventolin HFA] 90 mcg/actuation HFA aerosol inhaler 2 puff INHALATION Q4H PRN (Reason: Shortness Of Breath Or Wheezing) lamotrigine 25 mg tablet 75 mg PO BEDTIME folic acid 1 mg tablet 1 mg PO DAILY bupropion HCl 300 mg tablet extended release 24 hr 300 mg PO DAILY Discharge Orders: Discharge Order (Routine); Ordered 11/19/24 Ordered By: Mihir Freitas Diet: Advance to usual diet Activity on Discharge: As tolerated Stand Alone Forms: Patient Portal Discharge page Print Language: Hebrew Care Plan Goals: recovery from alcohol withdrawal, alcoholic pancreaitis and gastirtis Health Concerns: alcoholic pancreatitis alcoholic gastritis Plan of Treatment: instructed to attend alcoholic resources given to her to stay sober prilosec for gastritis continue use of alcohol will give you more gastritis Assessment: see above
[2024-11-19] MEDS: Lipase/Prot/Amylase 12/38/60K CAPSULE.DR 3 CAP PO (07:39)
[2024-11-19] MEDS: buPROPion HCl XL 300 MG TAB.ER.24H PO (07:40)
[2024-11-19] MEDS: 0.9 % Sodium Chloride Flush 3 ML SYRINGE IVFLUSH (07:41)
[2024-11-19 08:00] VITALS: PULSE 89
[2024-11-19] MEDS: Thiamine HCL 100 MG in 0.9 % Sodium Chloride 100 ML 202 MG IV (08:33)
--- NOTE | 2024-11-19 08:55 | MHC.CM.PN ---
Patient is discharged today. She will follow up this morning with [facility]. She is seeking a bed at the rehab center. She will discharge to her Mother's home today . She will stay with her Mother, until a bed is available @ [facility]. She has arranged for transportation home.
--- NOTE | 2024-11-19 09:21 | MHC.RECOVRN ---
Met with pt in rm# [id number] to provide support and discuss discharge planning . Pt was resting in bed and pleasant and engaged during interaction.? Pt reports [facility] has no female beds available and she was placed on a waitlist. Pt states she is returning home to gather clothing and personal belongings and will reside with her parents until a bed becomes available.? Pt declined to have the recovery team contact [facility] to see if we could be of assistance in coordinating placement.? Pt educated on previous conversation in which she reported her being a trigger to alcohol and drug recurrence. Pt also encouraged to utilize community resources and to contact the [facility] team if we could be of any help in the future or to share her success story.?
[2024-11-19] MEDS: Naloxone HCl Nasal TAKE HOME 4 MG SPRAY 8 MG NOSTRILALT (09:33)
--- NOTE | 2024-11-19 09:35 | PC.NURSE ---
Lilaan given to bring home.
== END 2024-11-19 09:35 | disposition home or self-care (01) | DRG 241 ==
LOC: HO.ED 20:53 → HO.EDOVER 21:47 → HO.S3 11-16 12:44
PROVIDERS: Internal Medicine; Nurse Practitioner Family; Physician Assistant; Admitting Provider Student in an Organized Health Care Education/Training Program; Emergency Provider Emergency Medicine; PCP Nurse Practitioner Adult Health; Visit Provider Internal Medicine
DX: K29.21 Alcoholic gastritis with bleeding (principal); K85.20 Alcohol induced acute pancreatitis without necrosis or infection; K86.0 Alcohol-induced chronic pancreatitis; F17.210 Nicotine dependence, cigarettes, uncomplicated; F31.9 Bipolar disorder, unspecified; G89.29 Other chronic pain; F43.10 Post-traumatic stress disorder, unspecified; F10.20 Alcohol dependence, uncomplicated; Z20.822 Contact with and (suspected) exposure to COVID-19; Y90.6 Blood alcohol level of 120-199 mg/100 ml; Z71.6 Tobacco abuse counseling; Z79.899 Other long term (current) drug therapy
CPT/HCPCS: 36415; 71045; 74177; 80048; 80053; 80076; 80307; 81001; 82248; 83605; 83690; 83735; 84702; 85014; 85018; 85025; 85610; 86140; 87637; 93005; 99285; J1171; J1308; J1790; J1808; J2405; J2470; J2560; J2765; J3411; J7120; Q9967; S9485

== ENCOUNTER → 2024-11-15 18:55 | Outpatient (BNV) | payer OTHER, SELFPAY | PROVIDERS: Admitting Provider Student in an Organized Health Care Education/Training Program; Emergency Provider Emergency Medicine; PCP Nurse Practitioner Adult Health; Visit Provider Internal Medicine Cardiovascular Disease | DX: R00.0 Tachycardia, unspecified (principal) | CPT/HCPCS: 93010 ==

== ENCOUNTER → 2024-11-15 20:43 | Outpatient (BNV) | payer OTHER, SELFPAY | PROVIDERS: Admitting Provider Student in an Organized Health Care Education/Training Program; Emergency Provider Emergency Medicine; Visit Provider Radiology Diagnostic Radiology | DX: K86.0 Alcohol-induced chronic pancreatitis (principal) | CPT/HCPCS: 74177 ==

== ENCOUNTER 2024-11-15 21:35 | Outpatient (BNV) | payer OTHER, SELFPAY | END 2024-11-16 00:05 | PROVIDERS: Admitting Provider Student in an Organized Health Care Education/Training Program; Emergency Provider Emergency Medicine; Visit Provider Radiology Diagnostic Radiology | DX: R06.2 Wheezing (principal); R04.2 Hemoptysis | CPT/HCPCS: 71045 ==

== ENCOUNTER → 2024-11-15 21:35 | Outpatient (BNV) | payer OTHER, SELFPAY | PROVIDERS: Admitting Provider Student in an Organized Health Care Education/Training Program; Emergency Provider Emergency Medicine; Visit Provider Nurse Practitioner Family | DX: F10.10 Alcohol abuse, uncomplicated (principal); K29.20 Alcoholic gastritis without bleeding; K85.90 Acute pancreatitis without necrosis or infection, unspecified | CPT/HCPCS: 99223; 99232 ==

== ENCOUNTER 2024-12-27 13:03 | Inpatient (IN) | payer OTHER, SELFPAY ==
--- OUTSIDE RECORDS SUMMARY | 2024-12-25 23:59 | XMS_ITS | Continuity of Care Document ---
Author Organization [facility] Primary [facility] [place] Address [address] [place] [address]- Care Team Providers Care Activities Coordinator Name Role Phone Domingo GALLEGOS, Anai Levi Primary Care Physician Encounter [facility] Date(s): 11/25/24 - 12/25/24 [facility] [address] [place], [place] [address] Encounter Type: Triage Allergies, Adverse Reactions, Alerts [...] tablet, Refills 1, Tot. Refills 1, Maintenance, 11/26/24 11:22:00 AM EDT, Route to Pharmacy Electronically, [facility] #[id number], 165, cm, 05/17/24 11:45:00 EST, Height, 93.1, kg, 05/17/24 11:45:00 EST, Dry Weight Start Date: 11/26/24 Stop Date: 05/25/25 Status: Ordered Quantity: 90.0 Unit: tablet Repeat number: 2 albuterol CFC free 90 mcg/inh inhalation aerosol 2, puffs, Inhalation, Every 4 hours, PRN, # 8.5 Gm, Refills 1, Tot. Refills 1, Maintenance, 11/07/24 2:23:00 PM EDT, Aerosol, [id number][id number], 165, cm, 05/17/24 11:45:00 EST, Height, 93.1, kg, 05/17/24 11:45:00 EST, Dry Weight Start Date: 11/07/24 Stop Date: 01/06/25 Status: Ordered Quantity: 8.5 Unit: g Repeat number: 2 buPROPion 300 mg/24 hours (XL) oral tablet, extended release 1 tablet = 300 mg, By Mouth, Every 24 hours, # 90 tablet, 1 Refills, Maintenance, 11/26/24 11:22:00 AM EDT, [facility] #[id number], Partial fill upon patient request if the prescription is for a schedule II opioid drug., 165, cm, 05/17/24 11:45:00 EST, Height, 93.1, kg, 05/17/24 11:45:00 EST, Dry Weight Start Date: 11/26/24 Stop Date: 05/25/25 Status: Ordered Quantity: 90.0 Unit: tablet Repeat number: 2 Creon 36,000 units oral delayed release capsule 1 capsule, By Mouth, 3 times a day, # 270 capsule, 1 Refills, Maintenance, 11/26/24 11:23:00 AM EDT,[facility] #[id number], 1 capsule By Mouth 3 times a day,x90 days, 165, cm, 05/17/24 11:45:00 EST, Height, 93.1, kg, 05/17/24 11:45:00 EST, Dry Weight Start Date: 11/26/24 Stop Date: 05/25/25 Status: Ordered Quantity: 270.0 Unit: capsule Repeat number: 2 doxepin 50 mg oral capsule 1 capsule = 50 mg, By Mouth, Daily at bedtime, # 90 capsule, 1 Refills, Maintenance, 11/26/24 11:22:00 AM EDT, Capsule, [facility] #[id number], 165, cm, 05/17/24 11:45:00 EST, Height, 93.1, kg, 05/17/24 11:45:00 EST, Dry Weight Start Date: 11/26/24 Stop Date: 05/25/25 Status: Ordered Quantity: 90.0 Unit: capsule Repeat number: 2 folic acid 1 mg oral tablet 1 mg, By Mouth, Daily, # 30 tablet, Refills 0, Tot. Refills 0, Maintenance, 12/18/24 9:29:00 AM EDT,Route to Pharmacy Electronically, [facility], Partial fill upon patient request if the prescription is for a schedule II opioid drug., 165, cm, 05/17/24 11:45:00 EST, Height, 93.1, kg, 05/17/24 11:45:00 EST, Dry Weight Start Date: 12/18/24 Stop Date: 01/17/25 Status: Ordered Quantity: 30.0 Unit: tablet Repeat number: 1 gabapentin 600 mg oral tablet 1 tablet = 600 mg, By Mouth, 3 times a day, # 270 tablet, 1 Refills, Maintenance, 11/26/24 11:22:00 AM EDT, Tablet, [facility] #[id number], 90 day supply, 165, cm, 05/17/24 11:45:00 EST, Height, 93.1, kg, 05/17/24 11:45:00 EST, Dry Weight Start Date: 11/26/24 Stop Date: 05/25/25 Status: Ordered Quantity: 270.0 Unit: tablet Repeat number: 2 lamotrigine 25 mg oral tablet 75 mg, 3, tablet, By Mouth, Daily at bedtime, # 270 tablet, Refills 1, Tot. Refills 1, Maintenance,11/26/24 11:22:00 AM EDT, Route to Pharmacy Electronically, [facility] #[id number], Partial fill upon patient request if the prescription is for a schedule II opioid drug., 165, cm, 05/17/24 11:45 :00 EST, Height, 93.1, kg, 05/17/24 11:45:00 EST, Dry Weight Start Date: 11/26/24 Stop Date: 05/25/25 Status: Ordered Quantity: 270.0 Unit: tablet Repeat number: 2 LORazepam 1 mg oral tablet 1 tablet = 1 mg, By Mouth, 3 times a day, PRN as needed for anxiety, # 90 tablet, 3 Refills, Maintenance, 11/26/24 11:23:00 AM EDT, Tablet, [facility] #[id number], fill when due, 165, cm, 05/17/24 11:45:00 EST, Height, 93.1, kg, 05/17/24 11:45:00 EST, Dry Weight Start Date: 11/26/24 Stop Date: 03/26/25 Status: Ordered Quantity: 90.0 Unit: tablet Repeat number: 4 pantoprazole 40 mg oral delayed release tablet 1 tablet, By Mouth, Daily, # 90 tablet, 1 Refills, Maintenance, 11/26/24 11:23:00 AM EDT, 165, cm, 05/17/24 11:45:00 EST, Height, 93.1, kg, 05/17/24 11:45:00 EST, Dry Weight Start Date: 11/26/24 Stop Date: 05/25/25 Status: Ordered Quantity: 90.0 Unit: tablet Repeat number: 2 prazosin 5 mg oral capsule 5 mg, 1, capsule, By Mouth, Daily at bedtime, # 90 capsule, Refills 1, Tot. Refills 1, Maintenance,11/26/24 11:23:00 AM EDT, Route to Pharmacy Electronically, [facility] #[id number], 165, cm, 05/17/24 11:45:00 EST, Height, 93.1, kg, 05/17/24 11:45:00 EST, Dry Weight Start Date: 11/26/24 Stop Date: 05/25/25 Status: Ordered Quantity: 90.0 Unit: capsule Repeat number: 2 thiamine 100 mg oral tablet 100 mg, By Mouth, 2 times a day, for 30 days, # 60 tablet, Refills 0, Tot. Refills 0, Acute :30:00 AM EDT, 12/18/24 9:30:00 AM EDT, Route to Pharmacy Electronically, [facility],Partial fill upon patient request if the prescription is for a schedule II opioid drug., 165, cm, 05/17/24 11:45:00 EST, Height, 93.1, kg, 05/17/24 11:45:00 EST, Dry Weight Start Date: 12/18/24 Stop Date: 01/17/25 Status: Ordered Quantity: 60.0 Unit: tablet Repeat number: 1 traZODone 150 mg oral tablet 1 tablet = 150 mg, By Mouth, Daily at bedtime, # 90 tablet, 1 Refills, Maintenance, 11/26/24 11:23:00 AM EDT, [facility] #[id number], Partial fill upon patient request if the prescription is for a schedule II opioid drug., 165, cm, 05/17/24 11:45:00 EST, Height, 93.1, kg, 05/17/24 11:45:00 EST,Dry Weight Start Date: 11/26/24 Stop Date: 05/25/25 Status: Ordered Quantity: 90.0 Unit: tablet Repeat [...] Response Tobacco Other: 3 a day. Toba tobacco grower user in household: Yes. Sex Sex Representation Female (finding) Patient Care team information Care Team Personnel Name: Gregoria Daley RN Position: [facility] RN Member Role: Primary Care Nurse Name: Elisa Lamar RN Position: S RN Member Role: Primary Care Nurse Name: Thelma Beach RN Position: S RN Member Role: Primary Care Nurse Name: Mich Quick RN Position: [facility] ED RN W/OE and Tasks Member Role: Primary Care Nurse Name: Zo Segal RN Position: [facility] AMB Nurse Member Role: Primary Care Nurse Name: Aziza Kuhn RN Position: [facility] RN Member Role: Primary Care Nurse Name: Rhoda German RN Position: [facility] RN Member Role: Primary Care Nurse Name: Antonia Mtz RN Position: [facility] RN Member Role: Primary Care Nurse Name: Carmina Fuentes RN Position: [facility] RN Member Role: Primary Care Nurse Name: Milla Emmanuel RN Position: [facility] SN RN Member Role: Primary Care Nurse Name: Carol Min [place] Position: [facility] Staff Member Role: Primary Care Nurse Name: Katt Ames MA Position: [facility] Staff Member Role: Primary Care Nurse Name: Ashely Pacheco Position: [facility] RN Member Role: Primary Care Nurse Name: Elvia Pacheco RN Position: [facility] RN Member Role: Primary Care Nurse Name: Miri Espitia RN Position: [facility] Nurse Member Role: Primary Care Nurse Name: Maksim Hunt III, RN Position: [facility] RN Member Role: Primary Care Nurse Name: Elisa Fields RN Position: [facility] RN Member Role: Primary Care Nurse Name: Anai Lane NP Position: [facility] PCO Associate Professional Member Role: PCP Address: [address] [place] [address] Telecom: Name: Vidal Calderon RN Position: [facility] RN Member Role: Primary Care Nurse Name: Matt Richards RN Position: [facility] RN Member Role: Primary Care Nurse Name: Aron Mcginnis RN Position: [facility] SN RN Member Role: Primary Care Nurse Name: Natalia Plata RN Position: [facility] RN Member Role: Primary Care Nurse Name: Kacy Barnhart RN Position: [facility] RN Member Role: Primary Care Nurse Name: Guerline Ramirez RN Position: [facility] Onco RN Member Role: Primary Care Nurse Name: Fidencio Ann Position: [facility] RN Member Role: Primary Care Nurse Name: Vandana Muniz RN Position: [facility] RN Member Role: Primary Care Nurse Name: Ashlyn Cordova RN Position: [facility] Onco RN Member Role: Primary Care Nurse Name: Avery Rebolledo RN Position: S RN Member Role: Primary Care Nurse Name: Andrew Adams RN Position: S RN Member Role: Primary Care Nurse Care Team Related Persons Name: KORY NGO Name: TEVIN WILL Name: ALEX WILL Name: ALEX ROPER Insurance Providers Guarantor name: SIMA ROPER [facility] Plan Information #: 1 Payer: [facility] Payer Identifier: NA Member Number: [id number] Group Number: [id number] Subscriber Identifier: [id number] Relationship to Subscriber: self Coverage Type: Medicaid (Managed Care) Coverage Verification Date: NA Telecom: NA Address: NA
[2024-12-27] VITALS (12 sets, daily range): BP systolic 121–137; BP diastolic 64–88; PULSE 64–108; RESP 14–16; TEMP 36.5–37.4; O2SAT 94–98
--- NOTE | ~2024-12-27 | XR_ITS ---
CLINICAL HISTORY: sepsis 1 view chest x-ray Comparison: CR - XR CHEST 1V - 11/16/24 00:00 EDT Findings: No consolidation or effusion. Heart size is normal. No acute fracture. IMPRESSION: 1. No acute findings. This document has been electronically signed by: Joceline Clayton MD on 12/27/2024 17:32:56
--- NOTE | ~2024-12-27 | CT_ITS ---
CLINICAL HISTORY: abd pain CT abdomen and pelvis with contrast Comparison: CT/REG/SR - CT ABDOMEN PELVIS W IV CON - 11/15/24 21:43 EDT Findings: The lung bases are clear. There is a small hiatal hernia. Enlarged, hypodense liver, without change. There are multiple pancreatic calcifications compatible with chronic pancreatitis. There is mild dilatation of the pancreatic duct without change. There is pancreatic volume loss. There is multifocal scarring within the bilateral kidneys. There is no hydronephrosis. There are no calcified gallstones. No bowel obstruction, pneumoperitoneum, or pneumatosis. Unremarkable pelvic contents. Appendix not definitively seen. No secondary findings to suggest appendicitis. The bones are intact. IMPRESSION: 1. Hepatomegaly with fatty infiltration of the liver. 2. There are changes of chronic pancreatitis. 3. There is multifocal scarring within the bilateral kidneys. This document has been electronically signed by: Joceline Clayton MD on 12/27/2024 20:29:54
--- NOTE | 2024-12-27 13:33 | ED.GENADULT ---
HPI - General Adult General Chief complaint: Abdominal Pain Stated complaint: ABD PAIN,N/V PER EMS Time Seen by Provider: 12/27/24 13:21 Source: patient Mode of arrival: EMS Limitations: no limitations History of Present Illness ED Provider: Dr. Harmon HPI narrative: This is a 44-year-old female history of alcohol use disorder, cocaine use PTSD pancreatitis presented hospital today for evaluation of epigastric abdominal pain. Patient stated this feels similar to her pancreatitis in the past. Patient has epigastric pain that radiates to the back. She states this has been going for 3 days now. She is very nauseous. Unable to take any of her p.o. medications. Denies any dysuria. She does endorse some fever and chills as well. Patient was recently admitted to the hospital last month for alcoholic gastritis. Noted to have lactic acid of 8. She was subsequently discharged with diagnosis of alcoholic gastritis. Her CT imaging shows chronic pancreatitis then. Related Data Home Medications ?Medication ?Instructions ?Recorded ?Confirmed aripiprazole 10 mg tablet 10 mg PO BEDTIME 05/21/21 11/15/24 doxepin 50 mg capsule 50 mg PO BEDTIME 05/21/21 11/15/24 gabapentin 600 mg tablet 600 mg PO TID 05/21/21 11/15/24 lorazepam 1 mg tablet 1 mg PO TID PRN Anxiety 05/21/21 11/15/24 pantoprazole 40 mg tablet,delayed 40 mg PO DAILY@0630 05/21/21 11/15/24 release bupropion HCl 300 mg 24 hr tablet, 300 mg PO DAILY 09/07/23 11/15/24 extended release folic acid 1 mg tablet 1 mg PO DAILY 09/07/23 11/15/24 lamotrigine 25 mg tablet 75 mg PO BEDTIME 09/07/23 11/15/24 ionpyt-jeulaznl-loyeudx 1 cap PO TIDWM 08/23/24 11/15/24 36,000-114,000-180,000 unit capsule,delay rel (Creon) multivitamin 1 tab PO DAILY 08/23/24 11/15/24 trazodone 150 mg tablet 150 mg PO BEDTIME 08/23/24 11/15/24 albuterol sulfate 90 mcg/actuation 2 puff inhalation Q4H PRN 11/15/24 11/15/24 aerosol inhaler (Ventolin HFA) Shortness Of Breath Or Wheezing Previous Rx's ?Medication ?Instructions ?Recorded prazosin 5 mg capsule 5 mg PO BEDTIME 30 days #30 caps 02/18/20 oxycodone 5 mg tablet 5 mg PO Q6H PRN pain (scale score 11/19/24 7-10) #8 tabs Allergies Allergy/AdvReac Type Severity Reaction Status Date / Time ibuprofen AdvReac Stomach Verified 12/27/24 13:18 Upset morphine AdvReac Gastrointestinal Verified 12/27/24 13:18 Upset bees Allergy Severe Anaphylaxis Uncoded 12/27/24 13:18 Review of Systems Review of Systems: Pertinent review of systems as mentioned in HPI. All other system otherwise negative. [facility] Past Medical History [facility] Narrative: Medical history as mentioned in HPI Medical History Suicidal ideations Intentional overdose Chronic cough Chronic pancreatitis Cocaine use Alcohol abuse Obesity (BMI 30.0-34.9) Pancreatitis Back pain Alcohol use disorder, severe, dependence Gastritis Gastritis Endometriosis Constipation Anxiety Depression Bipolar disorder Suicidal behavior PTSD (post-traumatic stress disorder) Surgical History History of ankle surgery Social History Social History Household Members: Spouse Housing: House Do you presently have visiting nurse or other home services: No Alcohol intake: current Alcohol intake frequency: 3 or more drinks per day Alcohol type: hard liquor Comment: pt reports no effects as of yet Patient Tobacco Use Status: Current someday Tobacco user Tobacco use type: Cigarette Cigarette Packs Per Day: 0 Cigarettes Per Day: 0 Smoked in Last 30 Days: Yes e-Cigarette/Vaping Use: Never Used Second Hand Smoke Exposure: Yes Use of substances other than those prescribed or required for medical reasons: No Substance Use Type: Crack/Cocaine Advance Directives: Yes Advance Directives on File: Yes Advance Directives Date on File: 09/07/23 Do you have a plan to hurt others: No Plan Patient : No service: No Sexual orientation: Straight/Heterosexual Physical Exam ED Exam Exam: General: Pleasant, no distress, interacting appropriately Head: Normacephalic, atraumatic ENT: oral mucosa dry, neck supple, no tracheal deviation Cardiovascular: Tachycardic rate, regular rhythm, no murmurs, rubbing, gallops Respiratory: CTAB, no wheeze, rales, rhonchi Gastrointestinal: Soft, non distended, epigastric tenderness on palpation Neurological: Awake and alert, no facial droop noted Skin: Warm and dry Psychiatric: Appropriate mood and thoughts Vital Signs: Vital Signs - 24 hr 12/27/24 13:16 12/27/24 13:24 12/27/24 14:22 Temperature 99.3 F 99.3 F Pulse Rate 102 H 103 H Respiratory Rate 16 16 14 Blood Pressure 132/82 132/82 Pulse Oximetry 97 95 Oxygen Delivery Method Room Air Room Air 12/27/24 14:38 12/27/24 15:08 12/27/24 16:22 Temperature 97.7 F Pulse Rate 90 92 Respiratory Rate 16 14 16 Blood Pressure 128/80 132/72 Pulse Oximetry 95 98 Oxygen Delivery Method Room Air Room Air 12/27/24 16:39 12/27/24 17:59 12/27/24 18:38 Temperature 97.7 F 99.0 F Pulse Rate 94 64 Respiratory Rate 16 16 16 Blood Pressure 128/68 132/74 Pulse Oximetry 97 95 Oxygen Delivery Method Room Air Room Air 12/27/24 18:51 12/27/24 18:53 12/27/24 20:43 Temperature 98.2 F 98.2 F 98.1 F Pulse Rate 94 95 108 H Respiratory Rate 16 14 16 Blood Pressure 123/64 121/68 137/88 Pulse Oximetry 97 97 94 Oxygen Delivery Method Room Air Room Air Room Air BMI result Body Mass Index 30.0 Medications Administered Discontinued Medications Generic Name Dose Route Start Last Admin Trade Name Freq PRN Reason Stop Dose Admin Ceftriaxone Sodium 2 gm 12/27/24 14:53 12/27/24 15:08 Ceftriaxone Sodium 2 Gm Vial IVPUSH 12/27/24 14:54 2 gm ONCE ONE Administration Hydromorphone HCl 0.5 mg 12/27/24 13:48 12/27/24 14:22 Hydromorphone Hcl 0.5 Mg/0.5 Ml Syringe IVPUSH 12/27/24 13:49 0.5 mg ONCE ONE Administration Protocol Hydromorphone HCl 0.5 mg 12/27/24 14:59 12/27/24 15:08 Hydromorphone Hcl 0.5 Mg/0.5 Ml Syringe IVPUSH 12/27/24 15:00 0.5 mg ONCE ONE Administration Protocol Hydromorphone HCl 0.5 mg 12/27/24 17:44 12/27/24 17:59 Hydromorphone Hcl 0.5 Mg/0.5 Ml Syringe IVPUSH 12/27/24 17:45 0.5 mg ONCE ONE Administration Protocol Sodium Chloride 1,000 mls @ 999 mls/hr 12/27/24 13:45 12/27/24 16:19 Ns IV 12/27/24 14:45 Infused .Q1H1M ELIZABETH Infusion Sodium Chloride 2,449.41 mls @ 2,449.41 mls/hr 12/27/24 14:52 12/27/24 16:19 Ns 30 ml/kg infuse over 1 hr (2449.41 ml) 12/27/24 15:51 Infused IV Infusion .Q1H STA Magnesium Sulfate 2 gm in 50 mls @ 150 mls/hr 12/27/24 14:59 12/27/24 15:41 Magnesium Sulfate/H2o IV 12/27/24 15:18 Infused ONCE ONE Infusion Potassium Chloride 10 meq in 100 mls @ 100 mls/hr 12/27/24 15:00 12/27/24 17:59 Potassium Chloride/H20 IV 12/27/24 16:59 Infused Q1H [facility] Infusion Sodium Chloride 1,000 mls @ 999 mls/hr 12/27/24 18:45 12/27/24 19:06 Ns IV 12/27/24 19:45 999 mls/hr .Q1H1M ELIZABETH Administration Iohexol 85 ml 12/27/24 19:28 12/27/24 19:28 Iohexol 350 Mg/Ml 100 Ml Infus..Btl IV 12/27/24 19:29 85 ml ONCE ONE Administration Metoclopramide HCl 5 mg 12/27/24 20:07 12/27/24 20:28 Metoclopramide Hcl 10 Mg/2 Ml Vial IVPUSH 12/27/24 20:08 5 mg ONCE ONE Administration Midazolam HCl 2 mg 12/27/24 13:44 12/27/24 14:22 Midazolam Hcl 2 Mg/2 Ml Vial IVPUSH 12/27/24 13:45 2 mg ONCE ONE Administration Ondansetron HCl 4 mg 12/27/24 13:42 12/27/24 14:22 Ondansetron Hcl 4 Mg/2 Ml Vial IVPUSH 12/27/24 13:43 4 mg ONCE ONE Administration Medical Decision Making Medical Decision Making [facility] Narrative: 44-year-old female presented hospital today for evaluation of epigastric pain that radiates to the back. Concern for possible pancreatitis. Patient does admit to alcohol usage. However she does not drink every day. It was noted that she was recently diagnosed with alcoholic gastritis admitted to the hospital last month. We will plan to give patient aggressive fluid hydration at this time. We will have IV fluid. IV Dilaudid will be given for pain. We will also plan to give patient a dose of IV Versed as she has not take her benzodiazepine in 3 days. We will obtain sepsis screening lab including CBC chemistry lactic acid. Patient is tachycardic she does feel warm to touch on exam. Blood culture will be obtained as well. Liver panel will be obtained as well. Lab work did show some leukocytosis 18.3. Patient's lactic acid was urgently 6.0. This has down trended to a 4, and subsequently 3.2 after fluid hydration. Patient was cover with IV ceftriaxone for antibiotic. Patient's potassium is low at 2.9. This was repleted with IV potassium, IV magnesium also given the patient given her drinking history. Patient's CT imaging shows chronic pancreatitis. No acute intra-abdominal process. Patient will be admitted to the hospital at this time. Differential Diagnosis Differential Diagnoses: The differential diagnosis associated with the presentation includes Pancreatitis, dehydration, alcoholic gastritis, colitis, withdrawal Admission/Observation Consideration of admission/observation: Escalation of care including admission/observation considered Consult Healthcare Provider Management of the patient was discussed with: Hospitalist Lab Data [facility] Lab Attestation statement: I reviewed the patient's lab results. 12/27/24 14:20 12/27/24 14:20 Labs: Lab Results 12/27/24 12/27/24 12/27/24 Range/Units 14:20 17:55 18:58 WBC 18.3 H (4.8-10.8) X10*3/uL RBC 4.59 D (4.20-5.50) X10*6/uL Hgb 13.7 D (12.0-16.0) g/dl Hct 40.0 (37.0-47.0) % MCV 87.1 (80.0-98.0) fL MCH 29.8 (27.0-33.0) pg MCHC 34.3 (31.0-35.0) g/dl RDW 15.1 (11.0-16.0) % Plt Count 459 H D (160-400) X10*3/uL MPV 9.6 (9.4-12.3) fL Immature Gran % (Auto) 0.5 H (0.0-0.4) % Neut % (Auto) 74.2 H (45-73) % Lymph % (Auto) 18.3 L (20-40) % [place] % (Auto) 6.5 (2-11) % Eos % (Auto) 0.2 (0-4) % Baso % (Auto) 0.3 (0-2) % Lymph # (Auto) 3.4 (1.2-4.9) X10*3/uL [place] # (Auto) 1.2 (0.1-1.2) X10*3/uL Eos # (Auto) 0.0 (0.0-0.4) X10*3/uL Baso # (Auto) 0.1 (0.0-0.2) X10*3/uL Abs Immat Gran (auto) 0.09 H (0.00-0.03) X10*3/uL Absolute Neuts (auto) 13.6 H (2.0-8.3) x10*3/uL Absolute Nucleated RBC 0.000 (0.0-0.012) X10*3/uL Nucleated RBC % (auto) 0.0 (0.0-0.2) /100WBC Sodium 135 (135-145) mmol/L Potassium 2.9 L* (3.3-5.1) mmol/L Chloride 87 L (96-108) mmol/L Carbon Dioxide 30 H (22-29) mmol/L Anion Gap 21 H (12-20) BUN 3 L (9-16) mg/dL Creatinine 0.57 (0.5-1.4) mg/dL Estim Creat Clear Calc 130.1 Estimated GFR > 60 Random Glucose 111 (60-115) mg/dL Lactic Acid 6.0 H* (0.5-2.0) mmol/L Lactic Acid F/U @ 2Hr 4.0 H* (0.5-2.0) mmol/L Calcium 9.4 D (8.4-10.2) mg/dL Magnesium 1.9 (1.6-2.6) mg/dL Total Bilirubin 1.3 H (0.0-1.0) mg/dL AST 142 H (5-31) U/L ALT 56 H (0-31) U/L Alkaline Phosphatase 233 H (39-117) U/L Total Protein 7.0 (6.5-8.0) g/dL Albumin 3.7 (3.5-5.0) g/dL Lipase 6 L (8-78) U/L Beta HCG, Quant 5 mIU/mL Urine Color Dark Yellow Urine Appearance Cloudy Urine pH 7.0 (5.0-9.0) Ur Specific [place] 1.020 (1.005-1.025) Urine Protein Negative (Neg-Trace) mg/dL Urine Glucose (UA) Negative (Negative) mg/dL Urine Ketones Negative (Negative) mg/dL Urine Blood Negative (Negative) Urine Nitrite Negative (Negative) Ur Leukocyte Esterase Trace H (Negative) Urine RBC 0-2 (0-2) /HPF Urine WBC 0-5 (0-5) /HPF Ur Squamous Epith Cells 11-20 (0-2) /HPF Urine Bacteria 1+ (None Seen) Hyaline Casts 0-2 (0-2) /LPF Urine Test NEGATIVE (NEGATIVE) Independent Interpretation I performed an independent interpretation of an: CT Scan Radiology Impression Discussion of test interpretation with radiology: I have reviewed the radiologist's reading. Critical Care Time Critical Care Time Critical Care Time: Yes Total Critical Care Time: 45 Attestation: Diagnosis: Severe Lactic acidosis Time is exclusive of separately billable procedures. Time includes: direct patient care, patient reassessment, coordination of patient care, interpretation of data (laboratory data, pulse oximetry, arterial blood gases and chest xrays), review of patient's medical records, medical consultation and documentation of patient care. Procedures excluded from critical care time: central intravenous line placement and electrocardiography. Discharge Plan Discharge Clinical Impression: Alcoholic gastritis, Acidosis, lactic Patient Disposition: Admitted As Inpatient Print Language: Brazilian
--- OUTSIDE RECORDS SUMMARY | 2024-12-27 14:00 | XMS_ITS | Clinical Summary ---
Author Organization [facility] Address [address] [place] [address] Care Team Providers Care End Finder Twisting Department Name Role Phone Unavailable Primary Care Provider [...] Smear 07/26/1999 Colorectal Cancer Screening: Colonoscopy 01/01/2024 HIV Screening 01/01/2024 Hepatitis C Screening 01/01/2024 Social Influencers of Health Screening 01/01/2024 COVID-19 Vaccine (2023-2 5 season) 2024 Depression Screening 05/08/2024 Influenza Vaccine (#1) 2025 HIB Vaccines Aged Out No longer [...] 5 Years) and At-Risk Patients (6 to 49 Years) Aged Out No longer eligible b ased on patient's age to complete this topic RSV Immunization Patients Un kera 20 months Aged Out No longer eligible b ased on patient's age to complete this topic Varicella Vaccines Aged Out No longer eligible based on patient's age to complete this topic
[2024-12-27 14:31] LABS: MANUAL DIFF FLAG NO
[2024-12-27 14:32] LABS: Hematocrit 40.0 % (37.0-47.0); Hemoglobin 13.7 g/dl (12.0-16.0); Imm Gran Abs Auto 0.09 X10*3/uL (0.00-0.03); Imm Gran Pct Auto 0.5 % (0.0-0.4); Lymphocytes Absolute Auto 3.4 X10*3/uL (1.2-4.9); Mean Corpuscular HGB Conc 34.3 g/dl (31.0-35.0); Mean Corpuscular Hemoglobin 29.8 pg (27.0-33.0); Mean Corpuscular Volume 87.1 fL (80.0-98.0); NRBC Abs Auto 0.000 X10*3/uL (0.0-0.012); NRBC Pct Auto 0.0 /100WBC (0.0-0.2); Platelet Count 459 X10*3/uL (160-400); Red Blood Count 4.59 X10*6/uL (4.20-5.50); White Blood Count 18.3 X10*3/uL (4.8-10.8)
--- NOTE | 2024-12-27 14:51 | PC.NURSE ---
BIBA from home. PAtient presents to ED c/o ABD pain radiating toward back rated 10/10. Patient has hx pancreatitis reports she is having a flare up. Patient reports SOB 97% RA. Denies dizziness, lightheadedness, urinary symptoms. +bowel sounds ABD distended slightly firm in RUQ tender as well. US IV 18G in left AC currently running NS 1L
[2024-12-27 14:53] LABS: Alanine Aminotransferase 56 U/L (0-31); Albumin Level 3.7 g/dL (3.5-5.0); Alkaline Phosphatase 233 U/L (39-117); Anion Gap 21 (12-20); Aspartate Amino Transferase 142 U/L (5-31); Blood Urea Nitrogen 3 mg/dL (9-16); Calcium 9.4 mg/dL (8.4-10.2); Carbon Dioxide 30 mmol/L (22-29); Chloride 87 mmol/L (96-108); Creatinine Clr Calc Pharmacy 130.1; Estimated Glomerular Filt Rate > 60; Lipase 6 U/L (8-78); Magnesium 1.9 mg/dL (1.6-2.6); Potassium 2.9 mmol/L (3.3-5.1); Sodium 135 mmol/L (135-145); Total Protein 7.0 g/dL (6.5-8.0)
[2024-12-27] MEDS: 0.9 % Sodium Chloride 2,449.41 ML 2449.41 ML IV (14:55)
[2024-12-27] MEDS: Magnesium Sulfate/H2O 2 GM/50 ML PIGGYBACK IV (15:11)
[2024-12-27] MEDS: Potassium Chloride/H20 10 MEQ/100 ML PIGGYBACK 100 MEQ IV ×2 (15:40→16:44)
[2024-12-27 16:29] LABS: Reflex Lactate? Lactic Acid Added
[2024-12-27 18:21] LABS: ~Lactic Acid-LAB USE ONLY 4.0 mmol/L (0.5-2.0)
[2024-12-27 19:11] LABS: Appearance Urine Cloudy; Glucose Urine UA Negative (Negative); PH 7.0 (5.0-9.0); Specific Gravity - Urine 1.020 (1.005-1.025); UMIC TRIGGER UACC YES
[2024-12-27 19:13] LABS: UPreg QC Valid YES
[2024-12-27] MEDS: iohexoL 350 MG/ML 100 ML INFUS..BTL 85 ML IV (19:28)
[2024-12-27 19:59] LABS: Reflex Lactate? 2 Y
[2024-12-27 21:06] LABS: ~Lactic Acid-LAB USE ONLY 3.2 mmol/L (0.5-2.0)
[2024-12-27] MEDS: PHENobarbitaL sodium 130 MG/ML IM ONCE 228 MG IM (22:11)
--- NOTE | 2024-12-27 22:23 | PHA.MEDREC ---
Addendum entered by Yasmany Phillips 12/27/24 22:53: Spoke with [facility] and they have last filled for lamotrigine 07/21 for 30 days and states there is a script on hold from november 26 that the pt never picked up. Addendum entered by Maximus Palmer RPh 12/27/24 22:47: Reviewed by [facility], will call 24 hours [facility] vernon to confirm. Original Note: Pharmacy Consult ? Medication Reconciliation Pharmacy has completed the medication reconciliation. Spoke with pt and she confirmed her medications. Pt states she takes Lamotrigine 25mg tabs and takes 3 tabs (75mg) at bedtime; claims shows pt has not filled that since 07/19 for 30 days, pharmacy is closed for night and will have AM team follow up.
[2024-12-28] VITALS (7 sets, daily range): BP systolic 100–155; BP diastolic 55–99; PULSE 80–108; RESP 13–18; TEMP 36.1–36.7; O2SAT 92–99; BMI 32.6
--- NOTE | 2024-12-28 00:07 | PM.IMHP ---
History of Present Illness Date of Service: 12/28/24 Attending physician on admission: Raquel Junior Chief Complaint: abdominal pain Patient is a 44-year-old female with PMH alcohol use disorder (binge drinking), tobacco use, cocaine use, anxiety depression, bipolar disorder, PTSD, seizures related to alcohol withdrawal, chronic pancreatitis on Creon, gastritis, hepatic steatosis presents to the ED with specific complaints involving N/V with abdominal pain that radiated towards the back and at the time of arrival, pain was reported as 10/10. Patient notes that she does have a history of pancreatitis and this is the pain that she usually has. In addition although patient did try to stop using alcohol regularly, patient recently started drinking at the end of the day for work to include 1 spiked ice tea and 5 fireball shots. 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 Patient received IV Dilaudid and is experiencing a decrease in overall pain. Patient states her nausea and vomiting have now stopped. Patient appears to have insight as to the consequences of continued alcohol use. Workup in the ED included CT scan of the abdomen and pelvis which notes hepatomegaly with fatty infiltration of the liver, chronic pancreatitis changes and multifocal scarring within the bilateral kidneys. Chest x-ray negative for any acute findings including consolidation or effusion. UA negative for UTI. Patient has a leukocytosis that may be reactive. Lactic acid 6 on arrival and after 3 bags of IV fluid is now 3.2. Patient continues on IV fluids. Patient also started on phenobarb protocol in the ED. Patient does not meet the criteria for sepsis at this time. Magnesium and toxicology screen pending. Review of Systems Review of Systems: Patient denies any current chest pain, shortness of breath at rest or with exertion but is reporting abdominal tenderness especially in the midepigastric area. Patient is no longer having any nausea or vomiting. Patient denies any heartburn or reflux. Patient is not having any headaches visual changes or difficulty swallowing. Yes all other systems are reviewed and are negative [facility] Medical History Alcohol abuse Alcoholism Suicidal ideations Intentional overdose Chronic cough Chronic pancreatitis Cocaine use Alcohol abuse Obesity (BMI 30.0-34.9) Pancreatitis Back pain Alcohol use disorder, severe, dependence Gastritis Gastritis Endometriosis Constipation Anxiety Depression Bipolar disorder Suicidal behavior PTSD (post-traumatic stress disorder) Cognitive capacity: alert and orientated x3 Functional capacity: independent ambulation Surgical History History of ankle surgery Social History Household Members: Spouse Housing: House Do you presently have visiting nurse or other home services: No Alcohol intake: current Alcohol intake frequency: 3 or more drinks per day Alcohol type: hard liquor Comment: pt reports no effects as of yet Patient Tobacco Use Status: Current someday Tobacco user Tobacco use type: Cigarette Cigarette Packs Per Day: 0 Cigarettes Per Day: 0 Smoked in Last 30 Days: Yes e-Cigarette/Vaping Use: Never Used Second Hand Smoke Exposure: Yes Use of substances other than those prescribed or required for medical reasons: No Substance Use Type: Crack/Cocaine Advance Directives: Yes Advance Directives on File: Yes Advance Directives Date on File: 09/07/23 Do you have a plan to hurt others: No Plan Patient : No service: No Sexual orientation: Straight/Heterosexual Ebola Risk: Travel/Contact With Anyone From Affected Area/s: No Has Patient Experienced Ebola Symptoms: No Meds Allergies Allergy/AdvReac Type Severity Reaction Status Date / Time ibuprofen AdvReac Stomach Verified 12/27/24 13:18 Upset morphine AdvReac Gastrointestinal Verified 12/27/24 13:18 Upset bees Allergy Severe Anaphylaxis Uncoded 12/27/24 13:18 Active Medications: Current Medications Acetaminophen (Acetaminophen 325 Mg Tablet) 650 mg PO Q6H PRN PRN Reason: Pain, Mild 1-3,fever,headache Albuterol/Ipratropium (Albuterol/Iprat 2.5/0.5mg 3 Ml Ampul.Neb) 3 ml INHALE Q4H PRN PRN Reason: Shortness of Breath/Wheezing Calcium Carbonate (Calcium Carbonate 750 Mg Tab.Chew) 750 mg PO Q4H PRN PRN Reason: Heartburn Enoxaparin Sodium (Enoxaparin Sodium 40 Mg/0.4 Ml Syringe) 40 mg SUBCUT Q24H [facility] Hydromorphone HCl (Hydromorphone Hcl 1 Mg/Ml Syringe) 1 mg IVPUSH Q3H PRN; Protocol PRN Reason: Pain, Severe (Pain Scale 7-10) Hydromorphone HCl (Hydromorphone Hcl 0.5 Mg/0.5 Ml Syringe) 0.5 mg IVPUSH Q3H PRN; Protocol PRN Reason: Pain, Moderate(Pain Scale 4-6) Lactated Ringer's (Lr) 1,000 mls @ 125 mls/hr IVCONT .Q8H [facility] Magnesium Hydroxide (Milk Of Magnesia 30 Ml Oral.Susp) 30 ml PO DAILY PRN PRN Reason: Constipation Melatonin (Melatonin 3 Mg Tablet) 6 mg PO BEDTIME PRN PRN Reason: Insomnia Ondansetron HCl (Ondansetron Hcl 4 Mg/2 Ml Vial) 4 mg IVPUSH Q8H PRN PRN Reason: Nausea and Vomiting Pharmacy Consult (Consult Rx Etoh Phenob Im/Po) 1 each MISCELLANE ONCE PRN; Protocol PRN Reason: Consult order Phenobarbital (Phenobarbital 15 Mg Tablet) 45 mg PO BID EL[facility]ABETH; Protocol Stop: 12/29/24 21:01 Phenobarbital (Phenobarbital 15 Mg Tablet) 15 mg PO BID ELIZABETH; Protocol Stop: 12/31/24 21:01 Phenobarbital (Phenobarbital 15 Mg Tablet) 15 mg PO DAILY EL[facility]ABETH; Protocol Stop: 01/02/25 09:01 Phenobarbital Sodium (Phenobarbital Sodium 130 Mg/Ml Vial Im Q3hx2) 171 mg IM Q3H [facility]ABETH; Protocol Stop: 12/28/24 03:01 Polyethylene Glycol (Polyethylene Glycol 3350 17 Gm Powd.Pack) 17 gm PO DAILY PRN PRN Reason: Constipation Senna (Sennosides 8.6 Mg Tablet) 17.2 mg PO BEDTIME ON LICENSE OF [facility] Sodium Chloride (0.9 % Sodium Chloride Flush 3 Ml Syringe) 3 ml IVFLUSH QSHIFT ON LICENSE OF [facility] Home Medications ?Medication ?Instructions ?Recorded ?Confirmed ?Last Taken ?Type aripiprazole 10 mg tablet 10 mg PO BEDTIME 05/21/21 12/27/24 12/25/24 History doxepin 50 mg capsule 50 mg PO BEDTIME 05/21/21 12/27/24 12/25/24 History gabapentin 600 mg tablet 600 mg PO TID 05/21/21 12/27/24 12/25/24 History lorazepam 1 mg tablet 1 mg PO TID PRN Anxiety 05/21/21 12/27/24 09/28/24 History pantoprazole 40 mg tablet,delayed 40 mg PO DAILY@0630 05/21/21 12/27/24 12/25/24 History release bupropion HCl 300 mg 24 hr tablet, 300 mg PO DAILY 09/07/23 12/27/24 12/25/24 History extended release folic acid 1 mg tablet 1 mg PO DAILY 09/07/23 12/27/24 12/25/24 History lamotrigine 25 mg tablet 75 mg PO BEDTIME 09/07/23 12/27/24 12/25/24 History khyccd-juowxzhn-msudcin 1 cap PO TIDWM 08/23/24 12/27/24 12/25/24 History 36,000-114,000-180,000 unit capsule,delay rel (Creon) trazodone 150 mg tablet 150 mg PO BEDTIME 08/23/24 12/27/24 12/25/24 History albuterol sulfate 90 mcg/actuation 2 puff inhalation Q4H PRN 11/15/24 12/27/24 Unknown History aerosol inhaler (Ventolin HFA) Shortness Of Breath Or Wheezing melatonin 3 mg tablet 15 mg PO BEDTIME PRN Sleep 12/27/24 12/27/24 Unknown History thiamine HCl (vitamin B1) 100 mg 100 mg PO BID 12/27/24 12/27/24 12/25/24 History tablet Physical Exam Vital Signs and Narrative: Vital Signs: Last Vital Signs Temp 98.1 F 12/27/24 20:43 Pulse 108 H 12/27/24 20:43 Resp 16 12/27/24 20:43 BP 137/88 12/27/24 20:43 Pulse Ox 94 12/27/24 20:43 O2 Del Method Room Air 12/27/24 20:43 BMI result Body Mass Index 30.0 Alert and orientated X3, able to give good history. Neuro: CN II-X11 intact, no deficits, visual acuity intact EYES: PERRLA, EOM intact, sclerae nonicteric ENT: hearing intact, no issues with swallowing, uvula midline, lips moist, nares patent no epistaxis Cardiac: S1 S2 RRR, no murmur, no JVD, no edema in Lower ext Pulmonary: lungs diminished bilaterally Abdominal: BS active in all 4 quadrants, no guarding, tenderness, rebounding, noted distention and tenderness in the epigastric area MSK: strength 5/5 upper and lower extremities : no CVA tenderness no bladder distension Extremities: no edema in lower extremities, PT and DP pulses palpable +2, no tremors noted Psych: mood stable, judgement and insight good Skin: No new rashes or lesions Results Labs 12/27/24 14:20 12/27/24 14:20 Labs: Laboratory Results - last 24 hr 12/27/24 12/27/24 12/27/24 14:20 17:55 18:58 MCV 87.1 MCH 29.8 MCHC 34.3 RDW 15.1 Plt Count 459 H D MPV 9.6 Immature Gran % (Auto) 0.5 H Neut % (Auto) 74.2 H Lymph % (Auto) 18.3 L [place] % (Auto) 6.5 Eos % (Auto) 0.2 Baso % (Auto) 0.3 Lymph # (Auto) 3.4 [place] # (Auto) 1.2 Eos # (Auto) 0.0 Baso # (Auto) 0.1 Abs Immat Gran (auto) 0.09 H Absolute Neuts (auto) 13.6 H Absolute Nucleated RBC 0.000 Nucleated RBC % (auto) 0.0 Anion Gap 21 H Estim Creat Clear Calc 130.1 Estimated GFR > 60 Random Glucose 111 Lactic Acid 6.0 H* Lactic Acid F/U @ 2Hr 4.0 H* Lactic Acid F/U @ 4Hr Calcium 9.4 D Magnesium 1.9 Total Bilirubin 1.3 H AST 142 H ALT 56 H Alkaline Phosphatase 233 H Total Protein 7.0 Albumin 3.7 Lipase 6 L Beta HCG, Quant 5 Urine Color Dark Yellow Urine Appearance Cloudy Urine pH 7.0 Ur Specific [place] 1.020 Urine Protein Negative Urine Glucose (UA) Negative Urine Ketones Negative Urine Blood Negative Urine Nitrite Negative Ur Leukocyte Esterase Trace H Urine RBC 0-2 Urine WBC 0-5 Ur Squamous Epith Cells 11-20 Urine Bacteria 1+ Hyaline Casts 0-2 Urine Test NEGATIVE 12/27/24 20:24 MCV MCH MCHC RDW Plt Count MPV Immature Gran % (Auto) Neut % (Auto) Lymph % (Auto) [place] % (Auto) Eos % (Auto) Baso % (Auto) Lymph # (Auto) [place] # (Auto) Eos # (Auto) Baso # (Auto) Abs Immat Gran (auto) Absolute Neuts (auto) Absolute Nucleated RBC Nucleated RBC % (auto) Anion Gap Estim Creat Clear Calc Estimated GFR Random Glucose Lactic Acid Lactic Acid F/U @ 2Hr Lactic Acid F/U @ 4Hr 3.2 H* Calcium Magnesium Total Bilirubin AST ALT Alkaline Phosphatase Total Protein Albumin Lipase Beta HCG, Quant Urine Color Urine Appearance Urine pH Ur Specific [place] Urine Protein Urine Glucose (UA) Urine Ketones Urine Blood Urine Nitrite Ur Leukocyte Esterase Urine RBC Urine WBC Ur Squamous Epith Cells Urine Bacteria Hyaline Casts Urine Test Imaging Radiologist's Impressions: CT ABD PELVIS IMPRESSION: 1. Hepatomegaly with fatty infiltration of the liver. 2. There are changes of chronic pancreatitis. 3. There is multifocal scarring within the bilateral kidneys. Assessment and Plan (1) Chronic pancreatitis: Qualifiers: Pancreatitis type: alcohol induced Qualified Code(s): K86.0 - Alcohol-induced chronic pancreatitis Status: Acute (2) Alcohol use disorder: Status: Acute Plan Patient is a 44-year-old female with PMH alcohol use disorder (binge drinking), tobacco use, cocaine use, anxiety depression, bipolar disorder, PTSD, seizures related to alcohol withdrawal, chronic pancreatitis on Creon, gastritis, hepatic steatosis presents to the ED with specific complaints involving N/V with abdominal pain that radiated towards the back and at the time of arrival, pain was reported as 10/10. Patient also reports increased use of alcohol over the last few days, especially at the end of the day of work. Patient did try to go for almost 3 weeks without drinking alcohol. Chronic pancreatitis, alcohol induced Lactic acidosis improving with IV fluids Trend Lactic Acid level NPO GI consulted Dilaudid for pain Lipase less than 6 Zofran for nausea Hypokalemia Potassium supplementation initiated BMP now and daily Telemetry Alcohol use disorder CIWA protocol ordered Phenobarbital protocol started in the ED Thiamine and folic acid IV Addictions consulted Alcoholic gastritis Protonix IV Tobacco dependence Patient deferred nicotine patch at this time Patient counseled on the benefits of smoking cessation Johno dorotheas p.r.n. with no evidence of a COPD exacerbation at this time History of cocaine use Toxicology screen pending DVT Prophylaxis: lovenox MED REC PENDING FULL CODE Quality Stroke Does the patient have a stroke diagnosis?: No Reason for No Anti-thrombotic by Day Two: N/A - Med Ordered VTE Prior VTE?: No VTE Risk Level:: Medical - moderate - high VTE Device Contraindication: N/A - Device Ordered VTE Drug Contraindication: N/A - Med Ordered
[2024-12-28] MEDS: Potassium Chloride Packet 20 MEQ PACKET 40 MEQ PO ×2 (00:18→10:54)
[2024-12-28] MEDS: PHENobarbitaL sodium 130 MG/ML VIAL IM Q3Hx2 171 MG IM ×2 (00:19→02:43)
[2024-12-28] MEDS: Lactated Ringers 1,000 ML 125 ML IVCONT ×4 (00:25→23:59)
[2024-12-28 00:33] LABS: Cannabinoid Screen Urine Not Detected (Not Detect)
[2024-12-28 00:56] LABS: Anion Gap 18 (12-20); Blood Urea Nitrogen 3 mg/dL (9-16); Calcium 7.5 mg/dL (8.4-10.2); Carbon Dioxide 23 mmol/L (22-29); Chloride 99 mmol/L (96-108); Creatinine Clr Calc Pharmacy 130.1; Estimated Glomerular Filt Rate > 60; Magnesium 2.0 mg/dL (1.6-2.6); Potassium 4.3 mmol/L (3.3-5.1); Sodium 136 mmol/L (135-145)
[2024-12-28 03:16] LABS: Reflex Lactate? Lactic Acid Added
[2024-12-28 04:04] LABS: ~Lactic Acid-LAB USE ONLY 2.5 mmol/L (0.5-2.0)
[2024-12-28 05:38] LABS: MANUAL DIFF FLAG NO
[2024-12-28 05:42] LABS: Reflex Lactate? 2 Y
[2024-12-28 06:00] LABS: Alanine Aminotransferase 39 U/L (0-31); Albumin Level 3.1 g/dL (3.5-5.0); Alkaline Phosphatase 186 U/L (39-117); Anion Gap 15 (12-20); Aspartate Amino Transferase 99 U/L (5-31); Blood Urea Nitrogen 3 mg/dL (9-16); Calcium 8.8 mg/dL (8.4-10.2); Carbon Dioxide 28 mmol/L (22-29); Chloride 99 mmol/L (96-108); Creatinine Clr Calc Pharmacy 125.7; Estimated Glomerular Filt Rate > 60; Potassium 3.8 mmol/L (3.3-5.1); Sodium 138 mmol/L (135-145); Total Protein 5.6 g/dL (6.5-8.0)
[2024-12-28 06:45] LABS: ~Lactic Acid-LAB USE ONLY 2.0 mmol/L (0.5-2.0)
--- NOTE | 2024-12-28 06:46 | PC.NURSE ---
Message sent to Felisa Castanon and thom for patient to have small amount of ice chips.
[2024-12-28 08:34] LABS: Hematocrit 37.5 % (37.0-47.0); Hemoglobin 12.2 g/dl (12.0-16.0); Imm Gran Abs Auto 0.06 X10*3/uL (0.00-0.03); Imm Gran Pct Auto 0.5 % (0.0-0.4); Lymphocytes Absolute Auto 2.1 X10*3/uL (1.2-4.9); Mean Corpuscular HGB Conc 32.5 g/dl (31.0-35.0); Mean Corpuscular Hemoglobin 29.8 pg (27.0-33.0); Mean Corpuscular Volume 91.7 fL (80.0-98.0); NRBC Abs Auto 0.000 X10*3/uL (0.0-0.012); NRBC Pct Auto 0.0 /100WBC (0.0-0.2); Platelet Count 337 X10*3/uL (160-400); Red Blood Count 4.09 X10*6/uL (4.20-5.50); White Blood Count 12.5 X10*3/uL (4.8-10.8)
[2024-12-28] MEDS: buPROPion HCl XL 300 MG TAB.ER.24H PO (10:51)
--- NOTE | 2024-12-28 10:53 | PC.NURSE ---
patient refused Lovenox,risks explained,activity encouraged
--- NOTE | 2024-12-28 11:19 | PC.NURSE ---
patient refused sequentials,explained risks ,encouraged ambulation
[2024-12-28] MEDS: Lipase/Prot/Amylase 12/38/60K CAPSULE.DR 3 CAP PO ×2 (13:26→16:57)
--- NOTE | 2024-12-28 13:32 | P.PNIM_ITS ---
Subjective Subjective Date of Service: 12/28/24 Interval History: alcohol withdrawal, abd pain Review of Systems abd pain seeems somewhat improving Physical Exam 2 Exam: Exam: Appearance: Alert.? Oriented X3.? cvs: rrr, [id number] , no murmur res: clear to auscultation ,no rhonchii or wheezing abd: no rebound or guarding ,epigastric discomfort , bs present. ext pulses present , no cyanosis. neuro: axo3 , nonfocal. Vital Signs: Vital Signs: Last Vital Signs Temp 97.7 F 12/28/24 12:00 Pulse 93 12/28/24 12:00 Resp 18 12/28/24 12:00 BP 138/89 12/28/24 12:00 Pulse Ox 96 12/28/24 12:00 O2 Del Method Room Air 12/28/24 12:00 BMI result Body Mass Index 32.6 Objective Data Active Medications Acetaminophen (Acetaminophen 325 Mg Tablet) 650 mg PO Q6H PRN PRN Reason: Pain, Mild 1-3,fever,headache Albuterol Sulfate (Albuterol Sulfate 90 Mcg 8 Gm Inhaler) 2 puff INHALE RQ4H PRN PRN Reason: Shortness Of Breath Or Wheezing Albuterol/Ipratropium (Albuterol/Iprat 2.5/0.5mg 3 Ml Ampul.Neb) 3 ml INHALE Q4H PRN PRN Reason: Shortness of Breath/Wheezing Lipase/Protease/Amylase (Lipase/Prot/Amylase 12/38/60k Capsule.) 3 cap PO TIDWM [facility] Last Admin: 12/28/24 13:26 Dose: 3 cap Documented By: HUSSAIN Aripiprazole (Aripiprazole 10 Mg Tablet) 10 mg PO BEDTIME [facility] Bupropion HCl (Bupropion Hcl Xl 300 Mg Tab.Er.24h) 300 mg PO DAILY [facility] Last Admin: 12/28/24 10:51 Dose: 300 mg Documented By: HUSSAIN Calcium Carbonate (Calcium Carbonate 750 Mg Tab.Chew) 750 mg PO Q4H PRN PRN Reason: Heartburn Doxepin HCl (Doxepin Hcl 25 Mg Capsule) 50 mg PO BEDTIME [facility] Enoxaparin Sodium (Enoxaparin Sodium 40 Mg/0.4 Ml Syringe) 40 mg SUBCUT Q24H [facility] Last Admin: 12/28/24 10:53 Dose: Not Given Documented By: HUSSAIN Non-Admin Reason: Patient Refused Folic Acid (Folic Acid 1 Mg Tablet) 1 mg PO DAILY [facility] Last Admin: 12/28/24 10:52 Dose: 1 mg Documented By: HUSSAIN Gabapentin (Gabapentin 600 Mg Tablet) 600 mg PO TID [facility] Last Admin: 12/28/24 10:51 Dose: 600 mg Documented By: HUSSAIN Hydromorphone HCl (Hydromorphone Hcl 1 Mg/Ml Syringe) 1 mg IVPUSH Q3H PRN; Protocol PRN Reason: Pain, Severe (Pain Scale 7-10) Last Admin: 12/28/24 10:46 Dose: 1 mg Documented By: HUSSAIN Hydromorphone HCl (Hydromorphone Hcl 0.5 Mg/0.5 Ml Syringe) 0.5 mg IVPUSH Q3H PRN; Protocol PRN Reason: Pain, Moderate(Pain Scale 4-6) Lactated Ringer's (Lr) 1,000 mls @ 125 mls/hr IVCONT .Q8H [facility] Last Admin: 12/28/24 10:48 Dose: 125 mls/hr Documented By: HUSSAIN Lamotrigine (Lamotrigine 25 Mg Tablet) 75 mg PO BEDTIME [facility] Magnesium Hydroxide (Milk Of Magnesia 30 Ml Oral.Susp) 30 ml PO DAILY PRN PRN Reason: Constipation Melatonin (Melatonin 3 Mg Tablet) 6 mg PO BEDTIME PRN PRN Reason: Insomnia Melatonin (Melatonin 3 Mg Tablet) 15 mg PO BEDTIME PRN PRN Reason: Sleep Ondansetron HCl (Ondansetron Hcl 4 Mg/2 Ml Vial) 4 mg IVPUSH Q8H PRN PRN Reason: Nausea and Vomiting Pantoprazole Sodium (Pantoprazole Sodium 40 Mg/10 Ml Vial) 40 mg IVPUSH DAILY@0630 [facility] Last Admin: 12/28/24 05:27 Dose: 40 mg Documented By: SHILOH Pharmacy Consult (Consult Rx Etoh Phenob Im/Po) 1 each MISCELLANE ONCE PRN; Protocol PRN Reason: Consult order Phenobarbital (Phenobarbital 15 Mg Tablet) 45 mg PO BID [facility]; Protocol Stop: 12/29/24 21:01 Last Admin: 12/28/24 10:52 Dose: 45 mg Documented By: HUSSAIN Phenobarbital (Phenobarbital 15 Mg Tablet) 15 mg PO BID [facility]; Protocol Stop: 12/31/24 21:01 Phenobarbital (Phenobarbital 15 Mg Tablet) 15 mg PO DAILY [facility]; Protocol Stop: 01/02/25 09:01 Polyethylene Glycol (Polyethylene Glycol 3350 17 Gm Powd.Pack) 17 gm PO DAILY PRN PRN Reason: Constipation Potassium Chloride (Potassium Chloride Packet 20 Meq Packet) 40 meq PO DAILY [facility] Last Admin: 12/28/24 10:54 Dose: 40 meq Documented By: HUSSAIN Prazosin HCl (Prazosin Hcl 5 Mg Capsule) 5 mg PO BEDTIME [facility]; Protocol Senna (Sennosides 8.6 Mg Tablet) 17.2 mg PO BEDTIME [facility] Sodium Chloride (0.9 % Sodium Chloride Flush 3 Ml Syringe) 3 ml IVFLUSH QSHIFT [facility] Last Admin: 12/28/24 09:20 Dose: Not Given Documented By: HUSSAIN Non-Admin Reason: No Access Thiamine HCl (Thiamine Hcl 100 Mg Tablet) 100 mg PO BID [facility] Last Admin: 12/28/24 10:51 Dose: 100 mg Documented By: HUSSAIN Trazodone HCl (Trazodone Hcl 50 Mg Tablet) 150 mg PO BEDTIME [facility] Labs 12/28/24 05:31 12/28/24 05:31 Labs: Laboratory Results - last 24 hr 12/27/24 12/27/24 12/27/24 14:20 17:55 18:58 MCV 87.1 MCH 29.8 MCHC 34.3 RDW 15.1 Plt Count 459 H D MPV 9.6 Immature Gran % (Auto) 0.5 H Neut % (Auto) 74.2 H Lymph % (Auto) 18.3 L [place] % (Auto) 6.5 Eos % (Auto) 0.2 Baso % (Auto) 0.3 Lymph # (Auto) 3.4 [place] # (Auto) 1.2 Eos # (Auto) 0.0 Baso # (Auto) 0.1 Abs Immat Gran (auto) 0.09 H Absolute Neuts (auto) 13.6 H Absolute Nucleated RBC 0.000 Nucleated RBC % (auto) 0.0 Hold Purple Top Anion Gap 21 H Estim Creat Clear Calc 130.1 Estimated GFR > 60 Random Glucose 111 Lactic Acid 6.0 H* Lactic Acid F/U @ 2Hr 4.0 H* Lactic Acid F/U @ 4Hr Calcium 9.4 D Magnesium 1.9 Total Bilirubin 1.3 H AST 142 H ALT 56 H Alkaline Phosphatase 233 H Total Protein 7.0 Albumin 3.7 Lipase 6 L Beta HCG, Quant 5 Hold Yellow Top Urine Color Dark Yellow Urine Appearance Cloudy Urine pH 7.0 Ur Specific Adger 1.020 Urine Protein Negative Urine Glucose (UA) Negative Urine Ketones Negative Urine Blood Negative Urine Nitrite Negative Ur Leukocyte Esterase Trace H Urine RBC 0-2 Urine WBC 0-5 Ur Squamous Epith Cells 11-20 Urine Bacteria 1+ Hyaline Casts 0-2 Urine Test NEGATIVE Urine Opiates Screen POSITIVE H Ur Buprenorphine Scrn Not Detected Ur Oxycodone Screen Not Detected Urine Methadone Screen Not Detected Urine Fentanyl Screen Not Detected Ur Barbiturates Screen POSITIVE H Ur Phencyclidine Scrn Not Detected Ur Amphetamines Screen Not Detected U Benzodiazepines Scrn POSITIVE H Urine Cocaine Screen POSITIVE H U Marijuana (THC) Screen Not Detected 12/27/24 12/28/24 12/28/24 20:24 00:32 01:11 MCV MCH MCHC RDW Plt Count MPV Immature Gran % (Auto) Neut % (Auto) Lymph % (Auto) [place] % (Auto) Eos % (Auto) Baso % (Auto) Lymph # (Auto) [place] # (Auto) Eos # (Auto) Baso # (Auto) Abs Immat Gran (auto) Absolute Neuts (auto) Absolute Nucleated RBC Nucleated RBC % (auto) Hold Purple Top Anion Gap 18 Estim Creat Clear Calc 130.1 Estimated GFR > 60 Random Glucose 132 H Lactic Acid 3.5 H* Lactic Acid F/U @ 2Hr Lactic Acid F/U @ 4Hr 3.2 H* Calcium 7.5 L D Magnesium 2.0 Total Bilirubin AST ALT Alkaline Phosphatase Total Protein Albumin Lipase Beta HCG, Quant Hold Yellow Top Urine Color Urine Appearance Urine pH Ur Specific Adger Urine Protein Urine Glucose (UA) Urine Ketones Urine Blood Urine Nitrite Ur Leukocyte Esterase Urine RBC Urine WBC Ur Squamous Epith Cells Urine Bacteria Hyaline Casts Urine Test Urine Opiates Screen Ur Buprenorphine Scrn Ur Oxycodone Screen Urine Methadone Screen Urine Fentanyl Screen Ur Barbiturates Screen Ur Phencyclidine Scrn Ur Amphetamines Screen U Benzodiazepines Scrn Urine Cocaine Screen U Marijuana (THC) Screen 12/28/24 12/28/24 12/28/24 03:38 03:43 05:31 MCV 91.7 MCH 29.8 MCHC 32.5 RDW 15.2 Plt Count 337 D MPV 10.0 Immature Gran % (Auto) 0.5 H Neut % (Auto) 75.3 H Lymph % (Auto) 16.4 L [place] % (Auto) 6.9 Eos % (Auto) 0.6 Baso % (Auto) 0.3 Lymph # (Auto) 2.1 [place] # (Auto) 0.9 Eos # (Auto) 0.1 Baso # (Auto) 0.0 Abs Immat Gran (auto) 0.06 H Absolute Neuts (auto) 9.4 H Absolute Nucleated RBC 0.000 Nucleated RBC % (auto) 0.0 Hold Purple Top SEE NOTE Anion Gap 15 Estim Creat Clear Calc 125.7 Estimated GFR > 60 Random Glucose 123 H Lactic Acid Lactic Acid F/U @ 2Hr 2.5 H* Lactic Acid F/U @ 4Hr Calcium 8.8 D Magnesium Total Bilirubin 1.3 H AST 99 H ALT 39 H Alkaline Phosphatase 186 H Total Protein 5.6 L Albumin 3.1 L Lipase Beta HCG, Quant Hold Yellow Top See Note Urine Color Urine Appearance Urine pH Ur Specific Adger Urine Protein Urine Glucose (UA) Urine Ketones Urine Blood Urine Nitrite Ur Leukocyte Esterase Urine RBC Urine WBC Ur Squamous Epith Cells Urine Bacteria Hyaline Casts Urine Test Urine Opiates Screen Ur Buprenorphine Scrn Ur Oxycodone Screen Urine Methadone Screen Urine Fentanyl Screen Ur Barbiturates Screen Ur Phencyclidine Scrn Ur Amphetamines Screen U Benzodiazepines Scrn Urine Cocaine Screen U Marijuana (THC) Screen 12/28/24 06:21 MCV MCH MCHC RDW Plt Count MPV Immature Gran % (Auto) Neut % (Auto) Lymph % (Auto) [place] % (Auto) Eos % (Auto) Baso % (Auto) Lymph # (Auto) [place] # (Auto) Eos # (Auto) Baso # (Auto) Abs Immat Gran (auto) Absolute Neuts (auto) Absolute Nucleated RBC Nucleated RBC % (auto) Hold Purple Top Anion Gap Estim Creat Clear Calc Estimated GFR Random Glucose Lactic Acid Lactic Acid F/U @ 2Hr Lactic Acid F/U @ 4Hr 2.0 Calcium Magnesium Total Bilirubin AST ALT Alkaline Phosphatase Total Protein Albumin Lipase Beta HCG, Quant Hold Yellow Top Urine Color Urine Appearance Urine pH Ur Specific Adger Urine Protein Urine Glucose (UA) Urine Ketones Urine Blood Urine Nitrite Ur Leukocyte Esterase Urine RBC Urine WBC Ur Squamous Epith Cells Urine Bacteria Hyaline Casts Urine Test Urine Opiates Screen Ur Buprenorphine Scrn Ur Oxycodone Screen Urine Methadone Screen Urine Fentanyl Screen Ur Barbiturates Screen Ur Phencyclidine Scrn Ur Amphetamines Screen U Benzodiazepines Scrn Urine Cocaine Screen U Marijuana (THC) Screen Assessment and Plan (1) Alcohol abuse: Status: Inactive (2) Alcoholic gastritis: Status: Acute (3) Pancreatitis: Status: Resolved Plan 44-year-old female with a past medical history of polysubstance abuse, bipolar disorder, PTSD, alcohol use disorder, chronic abdominal pain, history of pancreatitis; presented to the hospital with a chief complaint of abdominal pain . chronic pancreatitis/Alcoholic Gastritis: slightly improving IV PPI to po ppi,ivf, pain control,trial of clears advance diet acute LA: due to dehydration/seems improved. acute hypokalemia -repleted and resolved. leucocytosis: Possible reactive, patient denies any urinary or respiratory symptoms Chest x-ray negative ,ua,negative, blood culture pending Patient is also cocaine positive. CT abdomen : Hepatomegaly with fatty infiltration of the liver. 2. There are changes of chronic pancreatitis. Alcohol use disorder strongly advised to abstain from alcohol. mild elevated lft's -chronic (? due to alochol use)-seems improving ,further workup outpatient. Monitor on CIWA protocol. Phenobarbital per protocol Thiamine folate multivitamins. in addition drug screen for cocaine positive addiction med consult Bipolar disorder Continue abilify, wellbutrin, doxepin, lamictal, trazodone lorazepam prn PTSD prazosin Chronic pain gabapentin Tobacco dependence Patient deferred nicotine patch at this time Patient counseled on the benefits of smoking cessation Obesity: Encouraged to lose weight. DVT prophylaxis: Lovenox Code status: Full code Ongoing inpatient stay due to severe abdominal pain requiring IV analgesics and aggressive IV fluids to prevent and monitor for any acute decompensation. Also being closely monitored for alcohol withdrawal given known history of alcohol withdrawal seizure on phenobarbital per protocol Quality Stroke Does the patient have a stroke diagnosis?: No Reason for No Anti-thrombotic by Day Two: N/A - Med Ordered VTE Prior VTE?: No VTE Risk Level:: Medical - moderate - high VTE Device Contraindication: N/A - Device Ordered VTE Drug Contraindication: N/A - Med Ordered
--- NOTE | 2024-12-28 16:27 | MHC.CM.PN ---
Addendum entered by Ani Banuelos 12/29/24 11:45: PT WILL DC HOME TODAY WITH NO SERVICES VIA PRIVATE TRANSPORT Original Note: PT REPORTS SHE LIVES WITH HER S/O AND IS INDEPENDENT WITH CARE SHE HAS NO DME AND NO SERVICES COPY OF HCP REQUESTED PCP: DILLON MCKEON DCP: HOME VIA PRIVATE TRANSPORT
--- NOTE | 2024-12-28 17:31 | MHC.RECOVRN ---
TW met with pt in 367 after consult placed with Addiction Medicine for AUD. TW met with pt to discuss alcohol use and provide recovery support and options. Goal was also to discuss current alcohol use and concerns related to increased risk of alcohol related problems.? Patient reports she is not drinking regularly. She states she went to [facility] a few ago but only stayed for approximately 1 week. She states her fiance urged her to come home and that he stated, ?if we can?t earn money then we aren?t going to be able to keep the dog?. Pt reports this was the motivating factor for leaving treatment eary.? TW discussed the importance of self preservation and self care. Pt goes on to state that she was able to maintain remission from AUD for approximately 1 week following her discharge from [facility] . ?He (fiance) didn?t even drink with me, I just decided I wanted something so I had a few nips of fireball?.? Pt denies current use of illicit substances despite positive tox screen for opiates, benzos, and cocaine.? Pt reports she may attend [facility] again after mid-January ?since work will slow down a bit? She states she attends an AA meeting on Monday at [facility] in [place]. ? My old sponsor goes there as well as a few other people I know?.? ? Discussed how alcohol use has impacted health, including negative impact on mental health and overall physical well being.? Discussed risk and reduction strategies including drinking below the recommended limit, eating before consuming alcohol and drinking water between drinks containing alcohol. ?Provided pt with written resources including information on inpatient and outpatient treatment, [facility], harm reduction, recovery coaching, and an educational sheet on pancreatitis.? ? Patient plans to follow up with [facility] again in January.? Pt declines intervention, [facility], or outpatient appt for treatment related to AUD at this time & was provided with TW?s contact information if questions or concerns arise.? Pt denies questions or concerns.
[2024-12-29 03:51] VITALS: BP 105/59; PULSE 107; RESP 18; TEMP 36.2; O2SAT 96
[2024-12-29 07:55] VITALS: BP 121/76; PULSE 105; RESP 16; TEMP 36.3; O2SAT 97
[2024-12-29] MEDS: Lactated Ringers 1,000 ML 125 ML IVCONT (08:09)
[2024-12-29] MEDS: buPROPion HCl XL 300 MG TAB.ER.24H PO (08:14)
[2024-12-29] MEDS: Lipase/Prot/Amylase 12/38/60K CAPSULE.DR 3 CAP PO ×3 (08:15→11:38)
[2024-12-29] MEDS: 0.9 % Sodium Chloride Flush 3 ML SYRINGE IVFLUSH (08:15)
[2024-12-29] MEDS: Potassium Chloride Packet 20 MEQ PACKET 40 MEQ PO (08:17)
--- NOTE | 2024-12-29 10:49 | P.DS_ITS ---
DS: Providers Provider Date of Service: 12/29/24 Date of admission: 12/27/24 21:14 Date of discharge: 12/29/24 Primary care physician: Unknown Physician Consults: 12/28/24 00:46 Addiction Medicine Provider Routine Consulting Provider: Addiction Covering Reason for consultation: Alcohol use disorder Attending physician on discharge: Kimberly Matthew Discharging clinician: Kimberly Matthew DS: Diagnosis Discharge Diagnosis (1) Alcohol abuse: Status: Inactive (2) Alcoholic gastritis: Status: Acute (3) Pancreatitis: Status: Resolved DS: Summary Hospital Course Hospital Course: HPI:44-year-old female with PMH alcohol use disorder (binge drinking), tobacco use, cocaine use, anxiety depression, bipolar disorder, PTSD, seizures related to alcohol withdrawal, chronic pancreatitis on Creon, gastritis, hepatic steatosis presents to the ED with specific complaints involving N/V with abdominal pain that radiated towards the back and at the time of arrival, pain was reported as 10/10. Patient notes that she does have a history of pancreatitis and this is the pain that she usually has. In addition although patient did try to stop using alcohol regularly, patient recently started drinking at the end of the day for work to include 1 spiked ice tea and 5 fireball shots. 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 Patient received IV Dilaudid and is experiencing a decrease in overall pain. Patient states her nausea and vomiting have now stopped. Patient appears to have insight as to the consequences of continued alcohol use. Workup in the ED included CT scan of the abdomen and pelvis which notes hepatomegaly with fatty infiltration of the liver, chronic pancreatitis changes and multifocal scarring within the bilateral kidneys. Chest x-ray negative for any acute findings including consolidation or effusion. UA negative for UTI. Patient has a leukocytosis that may be reactive. Lactic acid 6 on arrival and after 3 bags of IV fluid is now 3.2. Patient continues on IV fluids. Patient also started on phenobarb protocol in the ED. Patient does not meet the criteria for sepsis at this time. Magnesium and toxicology screen pending. Hospital course: 44-year-old female with a past medical history of polysubstance abuse, bipolar disorder, PTSD, alcohol use disorder, chronic abdominal pain, history of pancreatitis; presented to the hospital with a chief complaint of abdominal pain . chronic pancreatitis/Alcoholic Gastritis: started onIV PPI to po ppi,ivf, pain control-seems improved ,tolerated diet ,asymptomatic . follow up outpatient with pcp and consider outpatient Gi eval outpatient. leucocytosis reactive ,improving. moniter cbc outpatient. Mild elevated LFTs-chronically: Monitor LFT outpatient, strongly advised to abstain from alcohol and recreational drug use. further workup for lft's outpatient. Hypokalemia repleted and resolved. please moniter cmp and cbc outpatient. acute LA: due to dehydration/seems improved. acute hypokalemia -repleted and resolved. leucocytosis: Possible reactive, patient denies any urinary or respiratory symptoms Chest x-ray negative ,ua,negative, blood culture negative@24hrs. Patient is also cocaine positive. CT abdomen : Hepatomegaly with fatty infiltration of the liver. 2. There are changes of chronic pancreatitis. Alcohol use disorder strongly advised to abstain from alcohol. mild elevated lft's -chronic (? due to alochol use)-seems improving , ct abd : Hepatomegaly with fatty infiltration of the liver,further workup outpatient. given Phenobarbital,Thiamine folate multivitamins. in addition drug screen for cocaine positive seen by addiction information given. plan: chronic pancreatitis/Alcoholic Gastritis:started onIV PPI to po ppi,ivf, pain control-seems improved ,tolerated diet ,asymptomatic . follow up outpatient with pcp and consider outpatient Gi eval outpatient. leucocytosis reactive ,improving. moniter cbc outpatient. Mild elevated LFTs-chronically: Monitor LFT outpatient, strongly advised to abstain from alcohol and recreational drug use. further workup for lft's outpatient. Hypokalemia repleted and resolved. please moniter cmp and cbc outpatient. Above management discussed with the patient in detail length she understand and in agreement with the above plan, time spent 40 minute, all question answered. Time Attestation Total time managing care of this patient today: 45 mintues. Discharge Coordination Time (in mins): 45 min Quality: Safe Use of Opioids Does Pt have an Active Cancer Diagnosis on the Problem List?: No Quality: Stroke Does the patient have a stroke diagnosis?: No Physical Exam Exam: Exam: Appearance: Alert.? Oriented X3.? cvs: rrr, [id number] , no murmur res: clear to auscultation ,no rhonchii or wheezing abd: no rebound or guarding ,epigastric discomfort , bs present. ext pulses present , no cyanosis. neuro: axo3 , nonfocal. Vital Signs: Vital Signs: Last Vital Signs Temp 97.4 F 12/29/24 07:55 Pulse 105 H 12/29/24 07:55 Resp 16 12/29/24 07:55 BP 121/76 12/29/24 07:55 Pulse Ox 97 12/29/24 07:55 O2 Del Method Room Air 12/29/24 07:55 BMI result Body Mass Index 32.6 DS: Data Data Completed and Pending Completed studies during hospitalization [Text1]: Procedures Detoxification Services for Substance Abuse Treatment (11/15/24) Labs on day of discharge: Preliminary micro results at discharge 12/27/24 14:38 Blood Culture - Preliminary Blood - Venous No growth after 24 hours. 12/27/24 14:20 Blood Culture - Preliminary Blood - Venous No growth after 24 hours. Imaging Chest x-ray: My impression: ct abd: 1. Hepatomegaly with fatty infiltration of the liver. 2. There are changes of chronic pancreatitis. 3. There is multifocal scarring within the bilateral kidneys. Discharge Plan Discharge Anticipated Discharge Date/Time: 12/29/24 10:41 Patient Disposition: Home, Self-Care Discharge Diagnosis: ch.pancreatitis ,gastritis Referrals: Physician,Unknown J [Primary Care Provider, Medical] - 1 Week Discharge Medications: New hydromorphone [Dilaudid] 2 mg tablet 1 mg PO Q6H PRN (Reason: pain) Qty: 5 0RF Rx Instructions: Partial Fill upon patient request. Continued prazosin 5 mg Capsule 5 mg PO BEDTIME 30 Days Qty: 30 0RF doxepin 50 mg capsule 50 mg PO BEDTIME gabapentin 600 mg tablet 600 mg PO TID aripiprazole 10 mg tablet 10 mg PO BEDTIME lorazepam 1 mg tablet 1 mg PO TID PRN (Reason: Anxiety) pantoprazole 40 mg Tablet,Delayed Release (Dr/Ec) 40 mg PO DAILY@0630 trazodone 150 mg tablet 150 mg PO BEDTIME Creon 36,000-114,000- 180,000 unit capsule,delayed release(DR/EC) 1 cap PO TIDWM albuterol sulfate [Ventolin HFA] 90 mcg/actuation HFA aerosol inhaler 2 puff INHALATION Q4H PRN (Reason: Shortness Of Breath Or Wheezing) thiamine HCl (vitamin B1) 100 mg tablet 100 mg PO BID melatonin 3 mg Tablet 15 mg PO BEDTIME PRN (Reason: Sleep) lamotrigine 25 mg tablet 75 mg PO BEDTIME folic acid 1 mg tablet 1 mg PO DAILY bupropion HCl 300 mg tablet extended release 24 hr 300 mg PO DAILY Discharge Orders: Discharge Order (Routine); Ordered 12/29/24 Ordered By: Kimberly Matthew Diet: Advance to usual diet Activity on Discharge: As tolerated Stand Alone Forms: Patient Portal Discharge page Print Language: Niuean Other Ambulatory Orders: Complete Blood Count no Diff (Routine) Timeframe: 1 Week Facility: [facility] - Location: Laboratory Ordered By: Kimberly Matthew Comprehensive Met. Panel (Routine) Timeframe: 1 Week Facility: [facility] - Location: Laboratory Ordered By: Kimberly Matthew Care Plan Goals: chronic pancreatitis/Alcoholic Gastritis:started onIV PPI to po ppi,ivf, pain control-seems improved ,tolerated diet ,asymptomatic . follow up outpatient with pcp and consider outpatient Gi eval outpatient. leucocytosis reactive ,improving. moniter cbc outpatient. Mild elevated LFTs-chronically: Monitor LFT outpatient, strongly advised to abstain from alcohol and recreational drug use. further workup for lft's outpatient. Hypokalemia repleted and resolved. please moniter cmp and cbc outpatient. Health Concerns: As above. Plan of Treatment: As above. Assessment: As above.
[2024-12-29] MEDS: Naloxone HCl Nasal TAKE HOME 4 MG SPRAY 8 MG NOSTRILALT (11:37)
[2024-12-29 12:00] VITALS: BP 117/70; PULSE 113; RESP 18; TEMP 36.6; O2SAT 96
== END 2024-12-29 13:30 | disposition home or self-care (01) | DRG 241 ==
LOC: HO.ED 21:13 → HO.EDOVER 21:21 → HO.S3 12-28 06:50
PROVIDERS: Nurse Practitioner Family; Physician Assistant Medical; Admitting Provider Student in an Organized Health Care Education/Training Program; Emergency Provider Student in an Organized Health Care Education/Training Program; Visit Provider Internal Medicine
DX: K29.20 Alcoholic gastritis without bleeding (principal); E87.21 Acute metabolic acidosis; E86.0 Dehydration; K86.0 Alcohol-induced chronic pancreatitis; E87.6 Hypokalemia; F19.10 Other psychoactive substance abuse, uncomplicated; F31.9 Bipolar disorder, unspecified; F43.10 Post-traumatic stress disorder, unspecified; G89.29 Other chronic pain; F10.20 Alcohol dependence, uncomplicated; F17.210 Nicotine dependence, cigarettes, uncomplicated; Z71.6 Tobacco abuse counseling; Z79.899 Other long term (current) drug therapy
CPT/HCPCS: 36415; 71045; 74177; 80048; 80053; 80307; 81001; 81025; 83605; 83690; 83735; 84702; 85025; 87040; 99285; J0696; J1171; J2250; J2405; J2470; J2560; J2765; J3475; J3480; J7120; Q9967; S9485

== ENCOUNTER → 2024-12-27 16:51 | Outpatient (BNV) | payer OTHER, SELFPAY | PROVIDERS: Emergency Provider Student in an Organized Health Care Education/Training Program; Visit Provider Radiology Diagnostic Radiology | DX: R16.0 Hepatomegaly, not elsewhere classified (principal); K76.0 Fatty (change of) liver, not elsewhere classified; K86.1 Other chronic pancreatitis; N26.9 Renal sclerosis, unspecified; A41.9 Sepsis, unspecified organism | CPT/HCPCS: 71045; 74177 ==

== ENCOUNTER → 2024-12-27 21:14 | Outpatient (BNV) | payer OTHER, SELFPAY | PROVIDERS: Admitting Provider Student in an Organized Health Care Education/Training Program; Emergency Provider Student in an Organized Health Care Education/Training Program; Visit Provider Nurse Practitioner Family | DX: F10.10 Alcohol abuse, uncomplicated (principal); K29.20 Alcoholic gastritis without bleeding; K85.90 Acute pancreatitis without necrosis or infection, unspecified; K86.0 Alcohol-induced chronic pancreatitis; F10.90 Alcohol use, unspecified, uncomplicated | CPT/HCPCS: 99223; 99239; 99499 ==

== ENCOUNTER 2025-01-12 18:44 | Inpatient (IN) | payer OTHER, SELFPAY ==
--- NOTE | ~2025-01-12 | CT_ITS ---
CLINICAL HISTORY: epigastric pain CT abdomen and pelvis without contrast Comparison: CT/REG/SR - CT ABDOMEN PELVIS W IV CON - 12/27/24 19:20 EDT Findings: The lung bases are clear. Small hiatal hernia. The gallbladder is within normal limits. Atrophic pancreas with multiple parenchymal calcification. Moderate hepatomegaly with liver measuring 22 cm in craniocaudal dimension with diffuse hepatic steatosis.. No renal stones. No bowel obstruction, pneumoperitoneum, or pneumatosis. Pelvic contents unremarkable. Normal appendix. No acute fracture. IMPRESSION: Small hiatal hernia. Atrophic pancreas with multiple parenchymal calcifications which could be related to sequelae of chronic pancreatitis. Moderate hepatomegaly with diffuse hepatic steatosis. This document has been electronically signed by: Dayami Cartagena MD on 01/12/2025 22:35:53
[2025-01-12 18:50] VITALS: BP 109/73; BP 132/62; PULSE 109; PULSE 78; RESP 18; TEMP 37.2; O2SAT 94; O2SAT 97; BMI 30.8
--- OUTSIDE RECORDS SUMMARY | 2025-01-12 19:05 | XMS_ITS | Clinical Summary ---
Author Organization [facility] Address [address] [place] [address] Care Team Providers Care Bacon Skinner Name Role Phone Unavailable Primary Care Provider [...] 01/01/2024 Social Influencers of Health Screening 01/01/2024 Depression Screening 05/08/2024 COVID-19 Vaccine ( - 2023-2 5 season) 2025 Influenza Vaccine (#1) 2025 HIB Vaccines Aged [...]
--- NOTE | 2025-01-12 19:16 | ECG_ITS ---
Test Reason : ABD PAIN Blood Pressure : */* mmHG Vent. Rate : 106 BPM Atrial Rate : 106 BPM P-R Int : 130 ms QRS Dur : 80 ms QT Int : 362 ms P-R-T Axes : 62 76 59 degrees QTcB Int : [address] & T wave abnormality, consider anterolateral ischemia Abnormal ECG When compared with ECG of 15-Nov-2024 18:55, Nonspecific T wave abnormality now evident in Inferior leads Inverted T waves have replaced nonspecific T wave abnormality in Lateral leads Referred By: Leighann Milian Electronically Signed By: KEON NAVA MD
--- NOTE | 2025-01-12 19:18 | ED.ABDPAIN ---
HPI - Abdominal Pain General Chief Complaint: Abdominal Pain Stated Complaint: HEADACHE,DIARRHEA, ABD PAIN, H/O PANCREAT Time Seen by Provider: 01/12/25 18:46 History of Present Illness HPI narrative: Patient is a 44-year-old female presented today with having abdominal pain. The pain is over the epigastric area moving to the left upper quadrant very similar to previous bouts of pancreatitis is been ongoing it is associated with some nausea. Vomiting and diarrhea. Patient is from home. Has a history of pancreatitis in the past. Does not think she is . There is no fever no chills. There is no coughing or congestion. There is no chest pain there is no diaphoresis. Also uses cocaine from time to time. Denies using cocaine acutely. Admits to drinking alcohol prior to arrival. Related Data Home Medications ?Medication ?Instructions ?Recorded ?Confirmed aripiprazole 10 mg tablet 10 mg PO BEDTIME 05/21/21 12/27/24 doxepin 50 mg capsule 50 mg PO BEDTIME 05/21/21 12/27/24 gabapentin 600 mg tablet 600 mg PO TID 05/21/21 12/27/24 lorazepam 1 mg tablet 1 mg PO TID PRN Anxiety 05/21/21 12/27/24 pantoprazole 40 mg tablet,delayed 40 mg PO DAILY@0630 05/21/21 12/27/24 release bupropion HCl 300 mg 24 hr tablet, 300 mg PO DAILY 09/07/23 12/27/24 extended release folic acid 1 mg tablet 1 mg PO DAILY 09/07/23 12/27/24 lamotrigine 25 mg tablet 75 mg PO BEDTIME 09/07/23 12/27/24 [id number] 1 cap PO TIDWM 08/23/24 12/27/24 36,000-114,000-180,000 unit capsule,delay rel (Creon) trazodone 150 mg tablet 150 mg PO BEDTIME 08/23/24 12/27/24 albuterol sulfate 90 mcg/actuation 2 puff inhalation Q4H PRN 11/15/24 12/27/24 aerosol inhaler (Ventolin HFA) Shortness Of Breath Or Wheezing melatonin 3 mg tablet 15 mg PO BEDTIME PRN Sleep 12/27/24 12/27/24 thiamine HCl (vitamin B1) 100 mg 100 mg PO BID 12/27/24 12/27/24 tablet Previous Rx's ?Medication ?Instructions ?Recorded prazosin 5 mg capsule 5 mg PO BEDTIME 30 days #30 caps 02/18/20 hydromorphone 2 mg tablet 1 mg (1/2 x 2 mg) PO Q6H PRN pain 12/29/24 (Dilaudid) #5 tabs Allergies Allergy/AdvReac Type Severity Reaction Status Date / Time ibuprofen AdvReac Stomach Verified 01/12/25 18:55 Upset morphine AdvReac Gastrointestinal Verified 01/12/25 18:55 Upset bees Allergy Severe Anaphylaxis Uncoded 01/12/25 18:55 Review of Systems Review of Systems Positive abdominal pain in the epigastric and left upper quadrant area Yes all other systems are reviewed and are negative PMFSH Past Medical History Attestation statement: The following information was validated with the patient. Medical History Alcohol abuse Alcoholism Suicidal ideations Intentional overdose Chronic cough Chronic pancreatitis Cocaine use Alcohol abuse Obesity (BMI 30.0-34.9) Pancreatitis Back pain Alcohol use disorder, severe, dependence Gastritis Gastritis Endometriosis Constipation Anxiety Depression Bipolar disorder Suicidal behavior PTSD (post-traumatic stress disorder) Surgical History History of ankle surgery Social History Social History Household Members: Significant Other Housing: House Do you presently have visiting nurse or other home services: No Alcohol intake: current Alcohol intake frequency: 3 or more drinks per day Alcohol type: beer and hard liquor Comment: pt reports no effects as of yet Patient Tobacco Use Status: Current someday Tobacco user Tobacco use type: Cigarette Cigarette Packs Per Day: 0 Cigarettes Per Day: 0 e-Cigarette/Vaping Use: Never Used Second Hand Smoke Exposure: No Use of substances other than those prescribed or required for medical reasons: No Substance Use Type: Crack/Cocaine Advance Directives: Yes Advance Directives on File: Yes Advance Directives Date on File: 09/07/23 service: No Sexual orientation: Straight/Heterosexual Physical Exam ED Exam Exam: Appearance: Alert. Oriented X3. No acute distress. Eyes: Pupils equal, round and reactive to light. ENT: Pharynx normal. Neck: Normal inspection. Neck supple. No lymph nodes noted. No crepitus CVS: Normal heart rate and rhythm. Pulses normal. Normal S1 and S2 Respiratory: No respiratory distress. Breath sounds normal. No Wheezing. No rales Abdomen: Mild epigastric pain no rebound no guarding Skin: Skin warm and dry. Normal skin color. Normal skin turgor. Extremities: No lower extremity edema. Neurovascular intact to all extremities. No Lacerations. No Rash Neuro: Oriented X 3. No motor deficit. No sensory deficit. Moving all extermities. No slurred speech Vital Signs: Vital Signs - 24 hr 01/12/25 18:50 01/12/25 22:00 Temperature 98.9 F Pulse Rate 109 H 102 H Respiratory Rate 18 Blood Pressure 109/73 131/84 Pulse Oximetry 94 93 Oxygen Delivery Method Room Air Room Air BMI result Body Mass Index 30.8 Medical Decision Making Medical Decision Making [facility] Narrative: Symptoms consistent with pancreatitis. Labs ordered. IV fluids ordered pain medication ordered. Differential Diagnosis Differential Diagnoses: The differential diagnosis associated with the presentation includes Pancreatitis, obstruction, abscess, perforation Admission/Observation Consideration of admission/observation: Escalation of care including admission/observation considered Consult Healthcare Provider Management of the patient was discussed with: Hospitalist Will admit patient for further evaluation Lab Data [facility] Lab Attestation statement: I reviewed the patient's lab results. 01/12/25 19:50 01/12/25 19:50 Labs: Lab Results 01/12/25 Range/Units 19:50 WBC 11.8 H (4.8-10.8) X10*3/uL RBC 4.24 (4.20-5.50) X10*6/uL Hgb 12.7 (12.0-16.0) g/dl Hct 37.5 (37.0-47.0) % MCV 88.4 (80.0-98.0) fL MCH 30.0 (27.0-33.0) pg MCHC 33.9 (31.0-35.0) g/dl RDW 14.8 (11.0-16.0) % Plt Count 357 (160-400) X10*3/uL MPV 9.5 (9.4-12.3) fL Immature Gran % (Auto) 0.3 (0.0-0.4) % Neut % (Auto) 67.1 (45-73) % Lymph % (Auto) 23.1 (20-40) % [place] % (Auto) 7.8 (2-11) % Eos % (Auto) 1.2 (0-4) % Baso % (Auto) 0.5 (0-2) % Lymph # (Auto) 2.7 (1.2-4.9) X10*3/uL [place] # (Auto) 0.9 (0.1-1.2) X10*3/uL Eos # (Auto) 0.1 (0.0-0.4) X10*3/uL Baso # (Auto) 0.1 (0.0-0.2) X10*3/uL Abs Immat Gran (auto) 0.04 H (0.00-0.03) X10*3/uL Absolute Neuts (auto) 7.9 (2.0-8.3) x10*3/uL Absolute Nucleated RBC 0.000 (0.0-0.012) X10*3/uL Nucleated RBC % (auto) 0.0 (0.0-0.2) /100WBC Sodium 141 (135-145) mmol/L Potassium 3.1 L (3.3-5.1) mmol/L Chloride 97 (96-108) mmol/L Carbon Dioxide 29 (22-29) mmol/L Anion Gap 18 (12-20) BUN < 3 L (9-16) mg/dL Creatinine 0.59 (0.5-1.4) mg/dL Estim Creat Clear Calc 127.4 Estimated GFR > 60 Random Glucose 139 H (60-115) mg/dL Calcium 9.1 (8.4-10.2) mg/dL Magnesium 1.9 (1.6-2.6) mg/dL Total Bilirubin 1.0 (0.0-1.0) mg/dL Direct Bilirubin 0.6 H (0.0-0.5) mg/dL AST 127 H (5-31) U/L ALT 48 H (0-31) U/L Alkaline Phosphatase 214 H (39-117) U/L Total Protein 6.9 (6.5-8.0) g/dL Albumin 4.0 (3.5-5.0) g/dL Lipase 6 L (8-78) U/L Beta HCG, Quant 5 mIU/mL Ethyl Alcohol 132 mg/dL Independent Interpretation I performed an independent interpretation of an: CT Scan (No overt obstruction noted) Radiology Impression Discussion of test interpretation with radiology: I have reviewed the radiologist's reading. Radiologist Impression: No pseudocyst noted External Record Review External record reviewed: Inpatient record Chronic Conditions Pancreatitis, alcohol abuse Social Determinants Patient?s care significantly limited by Social Determinants of Health including: Alcoholism and drug addiction in family, Problems related to primary support group and Other Social Determinant of Health Medications Administered Discontinued Medications Generic Name Dose Route Start Last Admin Trade Name Freq PRN Reason Stop Dose Admin Hydromorphone HCl 1 mg 01/12/25 19:14 01/12/25 20:05 Hydromorphone Hcl 1 Mg/Ml Syringe IVPUSH 01/12/25 19:15 1 mg ONCE ONE Administration Protocol Hydromorphone HCl 1 mg 01/12/25 21:49 01/12/25 22:08 Hydromorphone Hcl 1 Mg/Ml Syringe IVPUSH 01/12/25 21:50 1 mg ONCE ONE Administration Protocol Sodium Chloride 1,000 mls @ 999 mls/hr 01/12/25 19:15 01/12/25 21:04 Ns IV 01/12/25 20:15 Infused .Q1H1M ELIZABETH Infusion Ondansetron HCl 4 mg 01/12/25 19:14 01/12/25 20:05 Ondansetron Hcl 4 Mg/2 Ml Vial IVPUSH 01/12/25 19:15 4 mg ONCE ONE Administration Ondansetron HCl 4 mg 01/12/25 21:17 01/12/25 21:22 Ondansetron Hcl 4 Mg/2 Ml Vial IVPUSH 01/12/25 21:18 4 mg ONCE ONE Administration Discharge Plan Discharge Clinical Impression: Pancreatitis Patient Disposition: Admitted As Inpatient Print Language: Kosovan
[2025-01-12 19:54] LABS: MANUAL DIFF FLAG NO
[2025-01-12 19:55] LABS: Hematocrit 37.5 % (37.0-47.0); Hemoglobin 12.7 g/dl (12.0-16.0); Imm Gran Abs Auto 0.04 X10*3/uL (0.00-0.03); Imm Gran Pct Auto 0.3 % (0.0-0.4); Lymphocytes Absolute Auto 2.7 X10*3/uL (1.2-4.9); Mean Corpuscular HGB Conc 33.9 g/dl (31.0-35.0); Mean Corpuscular Hemoglobin 30.0 pg (27.0-33.0); Mean Corpuscular Volume 88.4 fL (80.0-98.0); NRBC Abs Auto 0.000 X10*3/uL (0.0-0.012); NRBC Pct Auto 0.0 /100WBC (0.0-0.2); Platelet Count 357 X10*3/uL (160-400); Red Blood Count 4.24 X10*6/uL (4.20-5.50); White Blood Count 11.8 X10*3/uL (4.8-10.8)
[2025-01-12 20:11] LABS: Alanine Aminotransferase 48 U/L (0-31); Albumin Level 4.0 g/dL (3.5-5.0); Alkaline Phosphatase 214 U/L (39-117); Anion Gap 18 (12-20); Aspartate Amino Transferase 127 U/L (5-31); Blood Urea Nitrogen < 3 mg/dL (9-16); Calcium 9.1 mg/dL (8.4-10.2); Carbon Dioxide 29 mmol/L (22-29); Chloride 97 mmol/L (96-108); Creatinine Clr Calc Pharmacy 127.4; Estimated Glomerular Filt Rate > 60; Lipase 6 U/L (8-78); Magnesium 1.9 mg/dL (1.6-2.6); Potassium 3.1 mmol/L (3.3-5.1); Sodium 141 mmol/L (135-145); Total Protein 6.9 g/dL (6.5-8.0)
[2025-01-12 22:00] VITALS: BP 131/84; PULSE 102; O2SAT 93
[2025-01-12 23:29] LABS: Cannabinoid Screen Urine Not Detected (Not Detect)
--- NOTE | 2025-01-12 23:53 | PM.IMHP ---
History of Present Illness Date of Service: 01/13/25 Attending physician on admission: Alvaro Felix Chief Complaint: nausea, abd pain Patient is a 44-year-old female with a past medical history significant for chronic pancreatitis, alcohol use disorder, substance use disorder, mood disorder, GERD, class 1 obesity, who presented to the ED again due to upper abdominal pain with nausea, vomiting and diarrhea. The patient reports she has been unable to eat for the past 2 days due to her pain. She has been drinking alcohol again. Her last alcoholic beverage around 16:00 today. She denies any urinary symptoms including frequency, urgency or dysuria. No headache, anxiety, tremors, visual or auditory hallucinations at this time. She denies a cough, chest pain or shortness of breath. Review of Systems Constitutional: Constitutional: Denies body ache(s), Denies chills, Denies fatigue, Denies fever(s) and Denies headache(s) Eyes: Eyes: Denies change in vision ENT: Denies headache(s), Denies nasal congestion and Denies sore throat Cardiovascular: Cardiovascular: Denies chest pain, Denies rapid heart rate, Denies leg edema, Denies lightheadedness and Denies dyspnea Respiratory: Respiratory: Denies chest congestion, Denies cough, Denies dyspnea and Denies wheezing Gastrointestinal: Gastrointestinal: Reports as per HPI Genitourinary: Genitourinary: Denies difficulty voiding, Denies dysuria and Denies urinary urgency Musculoskeletal: Musculoskeletal: Denies myalgias Integumentary/Breasts: Skin/Breast: Denies rash Neurologic: Denies confusion and Denies headache(s) Psychiatric: Psychiatric: Denies confusion Endocrine: Endocrine: Denies fatigue Hematologic/Lymphatic: Hematologic/Lymphatic: Denies easy bleeding and Denies easy bruising Allergic/Immunologic: Allergic/Immunologic: Denies wheezing PMFSH Medical History Alcohol abuse Alcoholism Suicidal ideations Intentional overdose Chronic cough Chronic pancreatitis Cocaine use Alcohol abuse Obesity (BMI 30.0-34.9) Pancreatitis Back pain Alcohol use disorder, severe, dependence Gastritis Gastritis Endometriosis Constipation Anxiety Depression Bipolar disorder Suicidal behavior PTSD (post-traumatic stress disorder) Functional capacity: independent ambulation Surgical History History of ankle surgery Social History Household Members: Significant Other Housing: House Do you presently have visiting nurse or other home services: No Alcohol intake: current Alcohol intake frequency: 3 or more drinks per day Alcohol type: beer and hard liquor Comment: pt reports no effects as of yet Patient Tobacco Use Status: Current someday Tobacco user Tobacco use type: Cigarette Cigarette Packs Per Day: 0 Cigarettes Per Day: 0 e-Cigarette/Vaping Use: Never Used Second Hand Smoke Exposure: No Use of substances other than those prescribed or required for medical reasons: No Substance Use Type: Crack/Cocaine Advance Directives: Yes Advance Directives on File: Yes Advance Directives Date on File: 09/07/23 service: No Sexual orientation: Straight/Heterosexual Meds Allergies Allergy/AdvReac Type Severity Reaction Status Date / Time ibuprofen AdvReac Stomach Verified 01/12/25 18:55 Upset morphine AdvReac Gastrointestinal Verified 01/12/25 18:55 Upset bees Allergy Severe Anaphylaxis Uncoded 01/12/25 18:55 Active Medications: Current Medications Potassium Chloride (Potassium Chloride/H20) 10 meq in 100 mls @ 100 mls/hr IV Q1H ELIZABETH Stop: 01/13/25 01:44 Home Medications ?Medication ?Instructions ?Recorded ?Confirmed ?Last Taken ?Type aripiprazole 10 mg tablet 10 mg PO BEDTIME 05/21/21 12/27/24 12/25/24 History doxepin 50 mg capsule 50 mg PO BEDTIME 05/21/21 12/27/24 12/25/24 History gabapentin 600 mg tablet 600 mg PO TID 05/21/21 12/27/24 12/25/24 History lorazepam 1 mg tablet 1 mg PO TID PRN Anxiety 05/21/21 12/27/24 09/28/24 History pantoprazole 40 mg tablet,delayed 40 mg PO DAILY@0630 05/21/21 12/27/24 12/25/24 History release bupropion HCl 300 mg 24 hr tablet, 300 mg PO DAILY 09/07/23 12/27/24 12/25/24 History extended release folic acid 1 mg tablet 1 mg PO DAILY 09/07/23 12/27/24 12/25/24 History lamotrigine 25 mg tablet 75 mg PO BEDTIME 09/07/23 12/27/24 12/25/24 History [id number] 1 cap PO TIDWM 08/23/24 12/27/24 12/25/24 History 36,000-114,000-180,000 unit capsule,delay rel (Creon) trazodone 150 mg tablet 150 mg PO BEDTIME 08/23/24 12/27/24 12/25/24 History albuterol sulfate 90 mcg/actuation 2 puff inhalation Q4H PRN 11/15/24 12/27/24 Unknown History aerosol inhaler (Ventolin HFA) Shortness Of Breath Or Wheezing melatonin 3 mg tablet 15 mg PO BEDTIME PRN Sleep 12/27/24 12/27/24 Unknown History thiamine HCl (vitamin B1) 100 mg 100 mg PO BID 12/27/24 12/27/24 12/25/24 History tablet Physical Exam Vital Signs and Narrative: Vital Signs: Last Vital Signs Temp 98.9 F 01/12/25 18:50 Pulse 102 H 01/12/25 22:00 Resp 18 01/12/25 18:50 BP 131/84 01/12/25 22:00 Pulse Ox 93 01/12/25 22:00 O2 Del Method Room Air 01/12/25 22:00 BMI result Body Mass Index 30.8 General: AOx3, no acute distress Resp: CTA bilaterally CVS: S1, S2, RRR GI: +BS, tender upper abd, no distention Skin: Warm, dry Neuro: Cranial nerves II-XII grossly intact bilaterally. Motor grossly intact bilaterally Extremities: No pitting edema Psych: Appropriate affect Const: General: No confusion Orientation/consciousness: No confusion Neuro: General: No confusion Results Labs 01/12/25 19:50 01/12/25 19:50 Labs: Laboratory Results - last 24 hr 01/12/25 01/12/25 19:50 23:13 MCV 88.4 MCH 30.0 MCHC 33.9 RDW 14.8 Plt Count 357 MPV 9.5 Immature Gran % (Auto) 0.3 Neut % (Auto) 67.1 Lymph % (Auto) 23.1 [place] % (Auto) 7.8 Eos % (Auto) 1.2 Baso % (Auto) 0.5 Lymph # (Auto) 2.7 [place] # (Auto) 0.9 Eos # (Auto) 0.1 Baso # (Auto) 0.1 Abs Immat Gran (auto) 0.04 H Absolute Neuts (auto) 7.9 Absolute Nucleated RBC 0.000 Nucleated RBC % (auto) 0.0 Anion Gap 18 Estim Creat Clear Calc 127.4 Estimated GFR > 60 Random Glucose 139 H Calcium 9.1 Magnesium 1.9 Total Bilirubin 1.0 Direct Bilirubin 0.6 H AST 127 H ALT 48 H Alkaline Phosphatase 214 H Total Protein 6.9 Albumin 4.0 Lipase 6 L Beta HCG, Quant 5 Urine Opiates Screen POSITIVE H Ur Buprenorphine Scrn Not Detected Ur Oxycodone Screen Not Detected Urine Methadone Screen Not Detected Urine Fentanyl Screen Not Detected Ur Barbiturates Screen POSITIVE H Ur Phencyclidine Scrn Not Detected Ur Amphetamines Screen Not Detected U Benzodiazepines Scrn Not Detected Urine Cocaine Screen POSITIVE H U Marijuana (THC) Screen Not Detected Ethyl Alcohol 132 Assessment and Plan (1) Acute on chronic pancreatitis: Status: Acute (2) Elevated LFTs: Status: Acute (3) Alcohol use disorder: Status: Acute (4) Alcoholic gastritis: Qualifiers: Chronicity: acute Gastritis bleeding: without bleeding Qualified Code(s): K29.20 - Alcoholic gastritis without bleeding Status: Acute (5) Obesity (BMI 30.0-34.9): Status: Inactive Plan Patient is a 44-year-old female with a past medical history significant for chronic pancreatitis, hx etoh abuse, cocaine use, GERD, anxiety and depression, who presented to the ED today with left upper quadrant pain x2 days radiating to the midback with nausea, vomiting and diarrhea. Acute on chronic pancreatitis - WBC 12.8, reactive, tachycardia secondary to pain, no active infection - abdominopelvic CT with small hiatal hernia. Atrophic pancreas with multiple parenchymal calcifications which could be related to sequela from chronic pancreatitis. Moderate hepatomegaly with diffuse hepatic steatosis. - AST 127, ALT 48, alk-phos 214, d bili 0.6 - UTox positive for cocaine, opiates, barbiturates - EKG with sinus tachycardia - lipase 8, low due to chronic pancreatitis - clear liquid diet, advance diet as tolerated - pain management with oxycodone and Dilaudid - given 1 L IV fluids in ED, continue LR 100 mL/HR - monitor CBC and BMP Hypokalemia - K 3.1, mag normal - secondary to vomiting - given 20 mEq IV, repeat in AM - recheck BMP and magnesium tomorrow Alcohol use disorder, likely alcohol withdrawal soon - alcohol level 132 on arrival, patient reports last drink around 16:00 - monitor CIWA q.4h, currently 0 - patient did receive lorazepam in ED - if CIWA scores become elevated, initiate phenobarb protocol - thiamine, folic acid, multivitamin - seizure precautions - addiction med consult alcoholic gastritis - pantoprazole Substance use disorder - utox positive for opiates, barbiturates, cocaine - alcohol level 132 - addiction med consult GERD - continue home meds Anxiety and depression - continue home meds Class 1 obesity - BMI 30.8 - weight loss encouraged Full code VTE prophylaxis: Lovenox Patient with acute on chronic pancreatitis requiring admission for at least 2 midnight stay for pain management and alcohol withdrawal. Quality Stroke Does the patient have a stroke diagnosis?: No VTE Prior VTE?: No VTE Risk Level:: Medical - moderate - high VTE Device Contraindication: Treatment Not Indicated VTE Drug Contraindication: N/A - Med Ordered
[2025-01-13] MEDS: Potassium Chloride/H20 10 MEQ/100 ML PIGGYBACK 100 MEQ IV ×2 (00:03)
[2025-01-13 00:13] VITALS: BP 132/84; PULSE 107; TEMP 36.9; O2SAT 95
[2025-01-13] MEDS: Lactated Ringers 1,000 ML 100 ML IVCONT ×3 (00:48→21:39)
[2025-01-13] MEDS: PHENobarbitaL sodium 130 MG/ML IM ONCE 182 MG IM (02:37)
[2025-01-13 05:12] LABS: Hematocrit 35.9 % (37.0-47.0); Hemoglobin 11.6 g/dl (12.0-16.0); Mean Corpuscular HGB Conc 32.3 g/dl (31.0-35.0); Mean Corpuscular Hemoglobin 29.7 pg (27.0-33.0); Mean Corpuscular Volume 92.1 fL (80.0-98.0); NRBC Abs Auto 0.000 X10*3/uL (0.0-0.012); NRBC Pct Auto 0.0 /100WBC (0.0-0.2); Platelet Count 295 X10*3/uL (160-400); Red Blood Count 3.90 X10*6/uL (4.20-5.50); White Blood Count 12.3 X10*3/uL (4.8-10.8)
[2025-01-13 05:28] LABS: Alanine Aminotransferase 38 U/L (0-31); Albumin Level 3.6 g/dL (3.5-5.0); Alkaline Phosphatase 185 U/L (39-117); Anion Gap 16 (12-20); Aspartate Amino Transferase 91 U/L (5-31); Blood Urea Nitrogen 3 mg/dL (9-16); Calcium 8.4 mg/dL (8.4-10.2); Carbon Dioxide 29 mmol/L (22-29); Chloride 98 mmol/L (96-108); Creatinine Clr Calc Pharmacy 131.9; Estimated Glomerular Filt Rate > 60; Magnesium 1.5 mg/dL (1.6-2.6); Potassium 3.6 mmol/L (3.3-5.1); Sodium 139 mmol/L (135-145); Total Protein 6.4 g/dL (6.5-8.0)
[2025-01-13] MEDS: PHENobarbitaL sodium 130 MG/ML VIAL IM Q3Hx2 IM ×2 (05:39→07:48)
--- NOTE | 2025-01-13 07:55 | PC.NURSE ---
Addendum entered by Jenn Mcleod RN 01/13/25 07:57: Patient is a 44-year-old female with a past medical history significant for chronic pancreatitis, alcohol use disorder, substance use disorder, mood disorder, GERD, class 1 obesity, who presented to the ED again due to upper abdominal pain with nausea, vomiting and diarrhea. The patient reports she has been unable to eat for the past 2 days due to her pain. She has been drinking alcohol with last drink on 01/13 at 4pm. Alert and oriented. front desk monitor maintained and NSR noted. Lungs clear bilat. Respirations even and non-labored. Abdomen soft, distended with positive bowel sounds. c/o epigastrica pain radiating to LUQ/left back. Positive pedal pulses with no edema. Patient being admitted with acute on chronic pancreatitis and etoh withdrawal. Original Note: Medical History Alcohol abuse Alcoholism Suicidal ideations Intentional overdose Chronic cough Chronic pancreatitis Cocaine use Alcohol abuse Obesity (BMI 30.0-34.9) Pancreatitis Back pain Alcohol use disorder, severe, dependence Gastritis Gastritis Endometriosis Constipation Anxiety Depression Bipolar disorder Suicidal behavior PTSD (post-traumatic st
--- NOTE | 2025-01-13 08:29 | P.PNIM_ITS ---
Subjective Subjective Date of Service: 01/13/25 Interval History: Acute on chronic pancreatitis Review of Systems abd pain similar feels some nausea Review of Systems: Yes all other systems are reviewed and are negative Physical Exam 2 Exam: Exam: General: AOx3, no acute distress Resp: CTA bilaterally CVS: S1, S2, RRR GI: +BS, tender upper abd, no distention Skin: Warm, dry Neuro: Cranial nerves II-XII grossly intact bilaterally. Motor grossly intact bilaterally Extremities: No pitting edema Psych: Appropriate affect Vital Signs: Vital Signs: Last Vital Signs Temp 98.5 F 01/13/25 00:13 Pulse 107 H 01/13/25 00:13 Resp 18 01/12/25 18:50 BP 132/84 01/13/25 00:13 Pulse Ox 95 01/13/25 00:13 O2 Del Method Room Air 01/13/25 00:13 BMI result Body Mass Index 30.8 Objective Data Active Medications Acetaminophen (Acetaminophen 325 Mg Tablet) 650 mg PO Q6H PRN PRN Reason: Pain, Mild 1-3,fever,headache Calcium Carbonate (Calcium Carbonate 750 Mg Tab.Chew) 750 mg PO Q4H PRN PRN Reason: Heartburn Enoxaparin Sodium (Enoxaparin Sodium 40 Mg/0.4 Ml Syringe) 40 mg SUBCUT Q24H [facility] Last Admin: 01/13/25 00:47 Dose: Not Given Documented By: SHILOH Non-Admin Reason: Patient Refused Folic Acid (Folic Acid 1 Mg Tablet) 1 mg PO DAILY [facility] Stop: 01/16/25 08:59 Hydromorphone HCl (Hydromorphone Hcl 0.5 Mg/0.5 Ml Syringe) 0.5 mg IVPUSH Q3H PRN; Protocol PRN Reason: Pain, Severe (Pain Scale 7-10) Last Admin: 01/13/25 07:47 Dose: 0.5 mg Documented By: CAMPOS Lactated Ringer's (Lr) 1,000 mls @ 100 mls/hr IVCONT .Q10H [facility] Last Admin: 01/13/25 00:48 Dose: 100 mls/hr Documented By: SHILOH Magnesium Sulfate (Magnesium Sulfate/H2o) 2 gm in 50 mls @ 150 mls/hr IV ONCE ONE Stop: 01/13/25 08:46 Magnesium Hydroxide (Milk Of Magnesia 30 Ml Oral.Susp) 30 ml PO DAILY PRN PRN Reason: Constipation Melatonin (Melatonin 3 Mg Tablet) 6 mg PO BEDTIME PRN PRN Reason: Insomnia Multivitamins/Vitamin C (Multivitamin Tablet) 1 tab PO DAILY [facility] Stop: 01/16/25 08:59 Ondansetron HCl (Ondansetron Hcl 4 Mg/2 Ml Vial) 4 mg IVPUSH Q8H PRN PRN Reason: Nausea and Vomiting Oxycodone HCl (Oxycodone Hcl Immed Release 5 Mg Tablet) 5 mg PO Q6H PRN PRN Reason: Pain, Moderate(Pain Scale 4-6) Pantoprazole Sodium (Pantoprazole Sodium 40 Mg/10 Ml Vial) 40 mg IVPUSH DAILY@0630 [facility] Last Admin: 01/13/25 05:39 Dose: 40 mg Documented By: SHILOH Pharmacy Consult (Consult Rx Etoh Phenob Im/Po) 1 each MISCELLANE ONCE PRN; Protocol PRN Reason: Consult order Phenobarbital (Phenobarbital 15 Mg Tablet) 45 mg PO BID [facility]; Protocol Stop: 01/15/25 09:01 Phenobarbital (Phenobarbital 15 Mg Tablet) 15 mg PO BID [facility] Stop: 01/17/25 09:01 Phenobarbital (Phenobarbital 15 Mg Tablet) 15 mg PO DAILY [facility]; Protocol Stop: 01/19/25 09:01 Potassium Chloride (Potassium Chloride Er 20 Meq Tab.Er.Prt) 20 meq PO ONCE ONE Stop: 01/13/25 08:28 Prochlorperazine Edisylate (Prochlorperazine Edisylate 10 Mg/2 Ml Vial) 10 mg IVPUSH Q6H PRN PRN Reason: Nausea and Vomiting Last Admin: 01/13/25 03:57 Dose: 10 mg Documented By: SHILOH Sodium Chloride (0.9 % Sodium Chloride Flush 3 Ml Syringe) 3 ml IVFLUSH QSHIFT [facility] Last Admin: 01/13/25 07:52 Dose: Not Given Documented By: CAMPOS Non-Admin Reason: IV Running Thiamine HCl (Thiamine Hcl 100 Mg Tablet) 100 mg PO DAILY [facility] Stop: 01/16/25 08:59 Labs 01/13/25 04:52 01/13/25 04:52 Labs: Laboratory Results - last 24 hr 01/12/25 01/12/25 01/13/25 19:50 23:13 04:52 MCV 88.4 92.1 MCH 30.0 29.7 MCHC 33.9 32.3 RDW 14.8 15.0 Plt Count 357 295 MPV 9.5 10.0 Immature Gran % (Auto) 0.3 Neut % (Auto) 67.1 Lymph % (Auto) 23.1 [place] % (Auto) 7.8 Eos % (Auto) 1.2 Baso % (Auto) 0.5 Lymph # (Auto) 2.7 [place] # (Auto) 0.9 Eos # (Auto) 0.1 Baso # (Auto) 0.1 Abs Immat Gran (auto) 0.04 H Absolute Neuts (auto) 7.9 Absolute Nucleated RBC 0.000 0.000 Nucleated RBC % (auto) 0.0 0.0 Anion Gap 18 16 Estim Creat Clear Calc 127.4 131.9 Estimated GFR > 60 > 60 Random Glucose 139 H 150 H Calcium 9.1 8.4 D Magnesium 1.9 1.5 L Total Bilirubin 1.0 1.4 H Direct Bilirubin 0.6 H AST 127 H 91 H ALT 48 H 38 H Alkaline Phosphatase 214 H 185 H Total Protein 6.9 6.4 L Albumin 4.0 3.6 Lipase 6 L Beta HCG, Quant 5 Urine Opiates Screen POSITIVE H Ur Buprenorphine Scrn Not Detected Ur Oxycodone Screen Not Detected Urine Methadone Screen Not Detected Urine Fentanyl Screen Not Detected Ur Barbiturates Screen POSITIVE H Ur Phencyclidine Scrn Not Detected Ur Amphetamines Screen Not Detected U Benzodiazepines Scrn Not Detected Urine Cocaine Screen POSITIVE H U Marijuana (THC) Screen Not Detected Ethyl Alcohol 132 Assessment and Plan (1) Pancreatitis: Status: Acute Plan 44-year-old female with a past medical history significant for chronic pancreatitis, hx etoh abuse, cocaine use, GERD, anxiety and depression, who presented to the ED today with left upper quadrant pain x2 days radiating to the midback with nausea, vomiting and diarrhea. Acute on chronic pancreatitis WBC 12.3, reactive, tachycardia secondary to pain, no active infection abdominopelvic CT with small hiatal hernia. Atrophic pancreas with multiple parenchymal calcifications which could be related to sequela from chronic pancreatitis. Moderate hepatomegaly with diffuse hepatic steatosis. lft's improving,UTox positive for cocaine, opiates, barbiturates EKG with sinus tachycardia, tachycardia improving lipase 8, low due to chronic pancreatitis lear liquid diet, advance diet as tolerated,pain management with oxycodone and Dilaudid Hypokalemia- secondary to vomiting repleted and resolved. moniter bmp. Alcohol use disorder, likely alcohol withdrawal:alcohol level 132 monitor CIWA q.4h, currently 0 plan: if CIWA scores become elevated, initiate phenobarb protocol,thiamine, folic acid, multivitamin. seizure precautions addiction med consult alcoholic gastritis- pantoprazole Substance use disorder utox positive for opiates, barbiturates, cocaine alcohol level 132 addiction med consult GERD - continue home meds Anxiety and depression - continue home meds Class 1 obesity - BMI 30.8 - weight loss encouraged Full code VTE prophylaxis: Lovenox ongoing need: acute on chronic pancreatitis requiring admission for at least 2 midnight stay for pain management and alcohol withdrawal. Quality Stroke Does the patient have a stroke diagnosis?: No VTE Prior VTE?: No VTE Risk Level:: Medical - moderate - high VTE Device Contraindication: Treatment Not Indicated VTE Drug Contraindication: N/A - Med Ordered
[2025-01-13 08:41] VITALS: BP 116/77; PULSE 96; RESP 18; TEMP 36.8; O2SAT 92
[2025-01-13] MEDS: Potassium Chloride ER 20 MEQ TAB.ER.PRT PO (09:05)
[2025-01-13] MEDS: Magnesium Sulfate/H2O 2 GM/50 ML PIGGYBACK IV (09:06)
--- NOTE | 2025-01-13 09:49 | PHA.MEDREC ---
Addendum entered by Merari Sosa RPh 01/13/25 09:56: reviewed by [facility]. Original Note: Pharmacy Consult ? Medication Reconciliation Pharmacy has completed the medication reconciliation. Spoke with pt and she confirmed her medications. Pt confirmed she takes Lamotrigine 15mg tabs, 3 tabs (75mg) @Bedtime; in claims pt has not filled that since for 30 from [facility]; pt confirmed they were last filled at [facility] on [address] or [facility] on [address]. I called [facility]; last filled Lamotrigine 25mg tabs was 07/21 ir 30 days and [facility] confirmed pt last got from them 04/27/2024 for 90 days.
--- NOTE | 2025-01-13 11:18 | MHC.CM.PN ---
PT REPORTS SHE LIVES WITH HER S/O AND IS INDEPENDENT WITH CARE SHE HAS NO DME OR SERVICES HCP ON FILE PCP: DILLON MCKEON DCP: HOME VIA PRIVATE TRANSPORT
[2025-01-13 12:00] VITALS: BP 114/70; PULSE 89; RESP 16; TEMP 36.7; O2SAT 93
[2025-01-13 16:00] VITALS: BP 128/78; PULSE 91; RESP 14; O2SAT 96
[2025-01-13 19:01] VITALS: BP 121/81; PULSE 98; RESP 18; TEMP 36.6; O2SAT 93
[2025-01-13] MEDS: 0.9 % Sodium Chloride Flush 3 ML SYRINGE IVFLUSH (20:52)
[2025-01-14] VITALS (7 sets, daily range): BP systolic 118–131; BP diastolic 67–87; PULSE 82–96; RESP 16–18; TEMP 36.3–36.8; O2SAT 92–97
[2025-01-14] MEDS: Lactated Ringers 1,000 ML 100 ML IVCONT ×2 (06:51→16:08)
[2025-01-14 06:54] LABS: Hematocrit 34.7 % (37.0-47.0); Hemoglobin 11.3 g/dl (12.0-16.0); Mean Corpuscular HGB Conc 32.6 g/dl (31.0-35.0); Mean Corpuscular Hemoglobin 30.1 pg (27.0-33.0); Mean Corpuscular Volume 92.5 fL (80.0-98.0); NRBC Abs Auto 0.000 X10*3/uL (0.0-0.012); NRBC Pct Auto 0.0 /100WBC (0.0-0.2); Platelet Count 231 X10*3/uL (160-400); Red Blood Count 3.75 X10*6/uL (4.20-5.50); White Blood Count 7.2 X10*3/uL (4.8-10.8)
[2025-01-14 07:54] LABS: Alanine Aminotransferase 32 U/L (0-31); Albumin Level 3.0 g/dL (3.5-5.0); Alkaline Phosphatase 154 U/L (39-117); Anion Gap 12 (12-20); Aspartate Amino Transferase 89 U/L (5-31); Blood Urea Nitrogen 3 mg/dL (9-16); Calcium 8.1 mg/dL (8.4-10.2); Carbon Dioxide 30 mmol/L (22-29); Chloride 100 mmol/L (96-108); Creatinine Clr Calc Pharmacy 139.2; Estimated Glomerular Filt Rate > 60; Magnesium 1.8 mg/dL (1.6-2.6); Potassium 3.8 mmol/L (3.3-5.1); Sodium 138 mmol/L (135-145); Total Protein 5.3 g/dL (6.5-8.0)
[2025-01-14] MEDS: 0.9 % Sodium Chloride Flush 3 ML SYRINGE IVFLUSH ×3 (09:06→21:00)
[2025-01-14] MEDS: buPROPion HCl XL 300 MG TAB.ER.24H PO (09:51)
[2025-01-14] MEDS: oxyCODONE HCl Immed Release 5 MG TABLET PO ×2 (09:51→18:03)
--- NOTE | 2025-01-14 10:17 | HO.ADDICT_ITS ---
History of Present Illness Date of Service: 01/14/25 Chief Complaint: Abdominal pain/pancreatitis Reason for Consult: AUD Sources of Information: patient interviewed and chart reviewed HPI Narrative: Patient is a 44 year old female medically admitted with acute pancreatitis secondary to alcohol use. Patient known to [facility] via previous admissions. Patient seen in room 453. She is awake, alert, laying in bed. She reports feeling tired and nauseous, however withdrawal sx well managed. No tremor noted, no diaphoresis or restlessness. She states that she has been drinking 2-3 days per week. Drinking one twisted tea and 5 fireball nips each time. Per patient, she has had pancreatitis approx 25 times over the last 12 years. Labs reviewed lipase WNL, liver enzymes elevated. CT scan showing atrophic pancreas Past Psychiatric History: Denies history of SA/SIB. Prescriber: Megan Lopez ([facility]) Therapist: does not have History of detox admissions. History of 2 other inpatient psychiatric hospitalizations. Medical Evaluation Reviewed: Yes Review of Systems Constitutional: Reports as per HPI Diagnostics Vital Signs (24Hr): Vital Signs - 24 hr 01/13/25 12:00 01/13/25 16:00 01/13/25 19:01 Temperature 98.0 F 98 F Pulse Rate 89 91 98 Respiratory Rate 16 14 18 Blood Pressure 114/70 128/78 121/81 Pulse Oximetry 93 96 93 Oxygen Delivery Method Room Air Room Air Room Air 01/14/25 00:00 01/14/25 03:29 01/14/25 06:59 Temperature 98.3 F 98.3 F 97.7 F Pulse Rate 86 94 82 Respiratory Rate 18 16 17 Blood Pressure 129/79 129/80 131/82 Pulse Oximetry 96 95 95 Oxygen Delivery Method Room Air Room Air Room Air BMI result Body Mass Index 30.8 Labs 01/14/25 06:26 01/14/25 06:26 Labs: Laboratory Results - last 48 hr 01/12/25 01/12/25 01/13/25 19:50 23:13 04:52 WBC 11.8 H 12.3 H RBC 4.24 3.90 L Hgb 12.7 11.6 L Hct 37.5 35.9 L MCV 88.4 92.1 MCH 30.0 29.7 MCHC 33.9 32.3 RDW 14.8 15.0 Plt Count 357 295 MPV 9.5 10.0 Immature Gran % (Auto) 0.3 Neut % (Auto) 67.1 Lymph % (Auto) 23.1 [place] % (Auto) 7.8 Eos % (Auto) 1.2 Baso % (Auto) 0.5 Lymph # (Auto) 2.7 [place] # (Auto) 0.9 Eos # (Auto) 0.1 Baso # (Auto) 0.1 Abs Immat Gran (auto) 0.04 H Absolute Neuts (auto) 7.9 Absolute Nucleated RBC 0.000 0.000 Nucleated RBC % (auto) 0.0 0.0 Sodium 141 139 Potassium 3.1 L 3.6 Chloride 97 98 Carbon Dioxide 29 29 Anion Gap 18 16 BUN < 3 L 3 L Creatinine 0.59 0.57 Estim Creat Clear Calc 127.4 131.9 Estimated GFR > 60 > 60 Random Glucose 139 H 150 H Calcium 9.1 8.4 D Magnesium 1.9 1.5 L Total Bilirubin 1.0 1.4 H Direct Bilirubin 0.6 H AST 127 H 91 H ALT 48 H 38 H Alkaline Phosphatase 214 H 185 H Total Protein 6.9 6.4 L Albumin 4.0 3.6 Lipase 6 L Beta HCG, Quant 5 Urine Opiates Screen POSITIVE H Ur Buprenorphine Scrn Not Detected Ur Oxycodone Screen Not Detected Urine Methadone Screen Not Detected Urine Fentanyl Screen Not Detected Ur Barbiturates Screen POSITIVE H Ur Phencyclidine Scrn Not Detected Ur Amphetamines Screen Not Detected U Benzodiazepines Scrn Not Detected Urine Cocaine Screen POSITIVE H U Marijuana (THC) Screen Not Detected Ethyl Alcohol 132 01/14/25 06:26 WBC 7.2 RBC 3.75 L Hgb 11.3 L Hct 34.7 L MCV 92.5 MCH 30.1 MCHC 32.6 RDW 14.9 Plt Count 231 MPV 10.0 Immature Gran % (Auto) Neut % (Auto) Lymph % (Auto) [place] % (Auto) Eos % (Auto) Baso % (Auto) Lymph # (Auto) [place] # (Auto) Eos # (Auto) Baso # (Auto) Abs Immat Gran (auto) Absolute Neuts (auto) Absolute Nucleated RBC 0.000 Nucleated RBC % (auto) 0.0 Sodium 138 Potassium 3.8 Chloride 100 Carbon Dioxide 30 H Anion Gap 12 BUN 3 L Creatinine 0.54 Estim Creat Clear Calc 139.2 Estimated GFR > 60 Random Glucose 119 H Calcium 8.1 L Magnesium 1.8 Total Bilirubin 1.4 H Direct Bilirubin AST 89 H ALT 32 H Alkaline Phosphatase 154 H Total Protein 5.3 L Albumin 3.0 L Lipase Beta HCG, Quant Urine Opiates Screen Ur Buprenorphine Scrn Ur Oxycodone Screen Urine Methadone Screen Urine Fentanyl Screen Ur Barbiturates Screen Ur Phencyclidine Scrn Ur Amphetamines Screen U Benzodiazepines Scrn Urine Cocaine Screen U Marijuana (THC) Screen Ethyl Alcohol Mental Status Exam Mental Status Exam Level of Consciousness: Awake, Appropriate and Alert Patient Behavior: Appropriate Affect Description: Calm Speech Pattern: Clear Hallucinations: None Thought Process: Intact Thought Content: positive for Intact Judgement: Good Medications Medications Current Medications Acetaminophen (Acetaminophen 325 Mg Tablet) 650 mg PO Q6H PRN PRN Reason: Pain, Mild 1-3,fever,headache Albuterol Sulfate (Albuterol Sulfate 90 Mcg 8 Gm Inhaler) 2 puff INHALE Q4H PRN PRN Reason: Shortness Of Breath Or Wheezing Lipase/Protease/Amylase (Lipase/Prot/Amylase 12/38/60k Capsule.Dr) 3 cap PO TIDWM [facility] Aripiprazole (Aripiprazole 10 Mg Tablet) 10 mg PO BEDTIME [facility] Bupropion HCl (Bupropion Hcl Xl 300 Mg Tab.Er.24h) 300 mg PO DAILY [facility] Last Admin: 01/14/25 09:51 Dose: 300 mg Calcium Carbonate (Calcium Carbonate 750 Mg Tab.Chew) 750 mg PO Q4H PRN PRN Reason: Heartburn Doxepin HCl (Doxepin Hcl 25 Mg Capsule) 50 mg PO BEDTIME [facility] Enoxaparin Sodium (Enoxaparin Sodium 40 Mg/0.4 Ml Syringe) 40 mg SUBCUT Q24H [facility] Last Admin: 01/14/25 00:13 Dose: Not Given Folic Acid (Folic Acid 1 Mg Tablet) 1 mg PO DAILY [facility] Stop: 01/16/25 08:59 Last Admin: 01/14/25 09:51 Dose: 1 mg Hydromorphone HCl (Hydromorphone Hcl 0.5 Mg/0.5 Ml Syringe) 1 mg IVPUSH Q3H PRN; Protocol PRN Reason: Pain, Severe (Pain Scale 7-10) Lactated Ringer's (Lr) 1,000 mls @ 100 mls/hr IVCONT .Q10H [facility] Last Admin: 01/14/25 06:51 Dose: 100 mls/hr Lamotrigine (Lamotrigine 25 Mg Tablet) 75 mg PO BEDTIME [facility] Lorazepam (Lorazepam 1 Mg Tablet) 1 mg PO TID PRN PRN Reason: Anxiety Last Admin: 01/14/25 09:51 Dose: 1 mg Magnesium Hydroxide (Milk Of Magnesia 30 Ml Oral.Susp) 30 ml PO DAILY PRN PRN Reason: Constipation Melatonin (Melatonin 3 Mg Tablet) 6 mg PO BEDTIME PRN PRN Reason: Insomnia Last Admin: 01/13/25 20:59 Dose: 6 mg Melatonin (Melatonin 3 Mg Tablet) 15 mg PO BEDTIME PRN PRN Reason: Sleep Multivitamins/Vitamin C (Multivitamin Tablet) 1 tab PO DAILY [facility] Stop: 01/16/25 08:59 Last Admin: 01/14/25 09:51 Dose: 1 tab Ondansetron HCl (Ondansetron Hcl 4 Mg/2 Ml Vial) 4 mg IVPUSH Q8H PRN PRN Reason: Nausea and Vomiting Last Admin: 01/14/25 09:07 Dose: 4 mg Oxycodone HCl (Oxycodone Hcl Immed Release 5 Mg Tablet) 5 mg PO Q6H PRN PRN Reason: Pain, Moderate(Pain Scale 4-6) Last Admin: 01/14/25 09:51 Dose: 5 mg Pantoprazole Sodium (Pantoprazole Sodium 40 Mg/10 Ml Vial) 40 mg IVPUSH DAILY@0630 [facility] Last Admin: 01/14/25 06:30 Dose: 40 mg Pharmacy Consult (Consult Rx Etoh Phenob Im/Po) 1 each MISCELLANE ONCE [facility]; Protocol PRN Reason: Consult order Phenobarbital (Phenobarbital 15 Mg Tablet) 45 mg PO BID [facility]; Protocol Stop: 01/15/25 09:01 Last Admin: 01/14/25 09:51 Dose: 45 mg Phenobarbital (Phenobarbital 15 Mg Tablet) 15 mg PO BID [facility] Stop: 01/17/25 09:01 Phenobarbital (Phenobarbital 15 Mg Tablet) 15 mg PO DAILY [facility]; Protocol Stop: 01/19/25 09:01 Prazosin HCl (Prazosin Hcl 5 Mg Capsule) 5 mg PO BEDTIME [facility]; Protocol Prochlorperazine Edisylate (Prochlorperazine Edisylate 10 Mg/2 Ml Vial) 10 mg IVPUSH Q6H PRN PRN Reason: Nausea and Vomiting Last Admin: 01/13/25 03:57 Dose: 10 mg Sodium Chloride (0.9 % Sodium Chloride Flush 3 Ml Syringe) 3 ml IVFLUSH QSHIFT [facility] Last Admin: 01/14/25 09:06 Dose: 3 ml Thiamine HCl (Thiamine Hcl 100 Mg Tablet) 100 mg PO DAILY [facility] Stop: 01/16/25 08:59 Last Admin: 01/14/25 09:51 Dose: 100 mg Trazodone HCl (Trazodone Hcl 50 Mg Tablet) 150 mg PO BEDTIME [facility] Allergies Allergies Allergy/AdvReac Type Severity Reaction Status Date / Time ibuprofen AdvReac Stomach Verified 01/12/25 18:55 Upset morphine AdvReac Gastrointestinal Verified 01/12/25 18:55 Upset bees Allergy Severe Anaphylaxis Uncoded 01/12/25 18:55 Assessment & Plan Assessment & Plan (1) Alcohol use disorder: Status: Acute Code(s): F10.90 - Alcohol use, unspecified, uncomplicated Assessment and Plan: * phenobarbital taper in place. No withdrawal sx noted or reported * continue thiamine and folic acid following discharge * discussed recurrence of pancreatitis with ongoing alcohol use. 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 [facility] Past Medical History Medical History Alcohol abuse Alcoholism Suicidal ideations Intentional overdose Chronic cough Chronic pancreatitis Cocaine use Alcohol abuse Obesity (BMI 30.0-34.9) Pancreatitis Back pain Alcohol use disorder, severe, dependence Gastritis Gastritis Endometriosis Constipation Anxiety Depression Bipolar disorder Suicidal behavior PTSD (post-traumatic stress disorder) Surgical History Surgical History History of ankle surgery Social History Social History Household Members: Spouse Housing: House Do you presently have visiting nurse or other home services: No Alcohol intake: current Alcohol intake frequency: 3 or more drinks per day Alcohol type: beer and hard liquor Comment: pt reports no effects as of yet Patient Tobacco Use Status: Former Tobacco user Tobacco use type: Cigarette Cigarette Packs Per Day: 0 Cigarettes Per Day: 0 e-Cigarette/Vaping Use: Never Used Second Hand Smoke Exposure: No Substance Use Type: Crack/Cocaine Advance Directives Date on File: 09/07/23 service: No Sexual orientation: Straight/Heterosexual
[2025-01-14] MEDS: Lipase/Prot/Amylase 12/38/60K CAPSULE.DR 3 CAP PO ×2 (11:07→16:08)
--- NOTE | 2025-01-14 14:15 | HO.PM.IMPN ---
Subjective Subjective Date of Service: 01/14/25 Interval History: Acute on chronic pancreatitis Review of Systems abd pain similar,has nausea unable to tolerate po yet Review of Systems: Yes all other systems are reviewed and are negative Physical Exam Exam: Exam: General: AOx3, no acute distress Resp: CTA bilaterally CVS: S1, S2, RRR GI: +BS, tender upper abd, no distention Skin: Warm, dry Neuro: Cranial nerves II-XII grossly intact bilaterally. Motor grossly intact bilaterally Extremities: No pitting edema Psych: Appropriate affect Vital Signs: Vital Signs: Last Vital Signs Temp 97.5 F 01/14/25 12:00 Pulse 83 01/14/25 12:00 Resp 18 01/14/25 12:00 BP 121/74 01/14/25 12:00 Pulse Ox 92 01/14/25 12:00 O2 Del Method Room Air 01/14/25 12:00 BMI result Body Mass Index 30.8 Objective Data Active Medications Acetaminophen (Acetaminophen 325 Mg Tablet) 650 mg PO Q6H PRN PRN Reason: Pain, Mild 1-3,fever,headache Albuterol Sulfate (Albuterol Sulfate 90 Mcg 8 Gm Inhaler) 2 puff INHALE Q4H PRN PRN Reason: Shortness Of Breath Or Wheezing Lipase/Protease/Amylase (Lipase/Prot/Amylase 12/38/60k Capsule.Dr) 3 cap PO TIDWM [facility] Last Admin: 01/14/25 11:07 Dose: 3 cap Documented By: DEYANIRA Aripiprazole (Aripiprazole 10 Mg Tablet) 10 mg PO BEDTIME [facility] Bupropion HCl (Bupropion Hcl Xl 300 Mg Tab.Er.24h) 300 mg PO DAILY [facility] Last Admin: 01/14/25 09:51 Dose: 300 mg Documented By: DEYANIRA Calcium Carbonate (Calcium Carbonate 750 Mg Tab.Chew) 750 mg PO Q4H PRN PRN Reason: Heartburn Doxepin HCl (Doxepin Hcl 25 Mg Capsule) 50 mg PO BEDTIME [facility] Enoxaparin Sodium (Enoxaparin Sodium 40 Mg/0.4 Ml Syringe) 40 mg SUBCUT Q24H [facility] Last Admin: 01/14/25 00:13 Dose: Not Given Documented By: ARMANDO Non-Admin Reason: Patient Refused Folic Acid (Folic Acid 1 Mg Tablet) 1 mg PO DAILY [facility] Stop: 01/16/25 08:59 Last Admin: 01/14/25 09:51 Dose: 1 mg Documented By: DEYANIRA Hydromorphone HCl (Hydromorphone Hcl 0.5 Mg/0.5 Ml Syringe) 1 mg IVPUSH Q3H PRN; Protocol PRN Reason: Pain, Severe (Pain Scale 7-10) Last Admin: 01/14/25 12:48 Dose: 1 mg Documented By: RAMAN Lactated Ringer's (Lr) 1,000 mls @ 100 mls/hr IVCONT .Q10H [facility] Last Admin: 01/14/25 06:51 Dose: 100 mls/hr Documented By: ARMANDO Lamotrigine (Lamotrigine 25 Mg Tablet) 75 mg PO BEDTIME [facility] Lorazepam (Lorazepam 1 Mg Tablet) 1 mg PO TID PRN PRN Reason: Anxiety Last Admin: 01/14/25 09:51 Dose: 1 mg Documented By: DEYANIRA Magnesium Hydroxide (Milk Of Magnesia 30 Ml Oral.Susp) 30 ml PO DAILY PRN PRN Reason: Constipation Melatonin (Melatonin 3 Mg Tablet) 6 mg PO BEDTIME PRN PRN Reason: Insomnia Last Admin: 01/13/25 20:59 Dose: 6 mg Documented By: ARMANDO Melatonin (Melatonin 3 Mg Tablet) 15 mg PO BEDTIME PRN PRN Reason: Sleep Multivitamins/Vitamin C (Multivitamin Tablet) 1 tab PO DAILY [facility] Stop: 01/16/25 08:59 Last Admin: 01/14/25 09:51 Dose: 1 tab Documented By: DEYANIRA Ondansetron HCl (Ondansetron Hcl 4 Mg/2 Ml Vial) 4 mg IVPUSH Q8H PRN PRN Reason: Nausea and Vomiting Last Admin: 01/14/25 09:07 Dose: 4 mg Documented By: DEYANIRA Oxycodone HCl (Oxycodone Hcl Immed Release 5 Mg Tablet) 5 mg PO Q6H PRN PRN Reason: Pain, Moderate(Pain Scale 4-6) Last Admin: 01/14/25 09:51 Dose: 5 mg Documented By: DEYANIRA Pantoprazole Sodium (Pantoprazole Sodium 40 Mg/10 Ml Vial) 40 mg IVPUSH DAILY@0630 [facility] Last Admin: 01/14/25 06:30 Dose: 40 mg Documented By: ARMANDO Pharmacy Consult (Consult Rx Etoh Phenob Im/Po) 1 each MISCELLANE ONCE PRN; Protocol PRN Reason: Consult order Phenobarbital (Phenobarbital 15 Mg Tablet) 45 mg PO BID [facility]; Protocol Stop: 01/15/25 09:01 Last Admin: 01/14/25 09:51 Dose: 45 mg Documented By: DEYANIRA Phenobarbital (Phenobarbital 15 Mg Tablet) 15 mg PO BID [facility] Stop: 01/17/25 09:01 Phenobarbital (Phenobarbital 15 Mg Tablet) 15 mg PO DAILY [facility]; Protocol Stop: 01/19/25 09:01 Prazosin HCl (Prazosin Hcl 5 Mg Capsule) 5 mg PO BEDTIME [facility]; Protocol Prochlorperazine Edisylate (Prochlorperazine Edisylate 10 Mg/2 Ml Vial) 10 mg IVPUSH Q6H PRN PRN Reason: Nausea and Vomiting Last Admin: 01/14/25 11:07 Dose: 10 mg Documented By: DEYANIRA Sodium Chloride (0.9 % Sodium Chloride Flush 3 Ml Syringe) [facility] Last Admin: 01/14/25 12:48 Dose: 3 ml Documented By: RAMAN Thiamine HCl (Thiamine Hcl 100 Mg Tablet) 100 mg PO DAILY [facility] Stop: 01/16/25 08:59 Last Admin: 01/14/25 09:51 Dose: 100 mg Documented By: DEYANIRA Trazodone HCl (Trazodone Hcl 50 Mg Tablet) 150 mg PO BEDTIME [facility] Labs 01/14/25 06:26 01/14/25 06:26 Labs: Laboratory Results - last 24 hr 01/14/25 06:26 MCV 92.5 MCH 30.1 MCHC 32.6 RDW 14.9 Plt Count 231 MPV 10.0 Absolute Nucleated RBC 0.000 Nucleated RBC % (auto) 0.0 Anion Gap 12 Estim Creat Clear Calc 139.2 Estimated GFR > 60 Random Glucose 119 H Calcium 8.1 L Magnesium 1.8 Total Bilirubin 1.4 H AST 89 H ALT 32 H Alkaline Phosphatase 154 H Total Protein 5.3 L Albumin 3.0 L Assessment and Plan (1) Pancreatitis: Status: Acute Plan 44-year-old female with a past medical history significant for chronic pancreatitis, hx etoh abuse, cocaine use, GERD, anxiety and depression, who presented to the ED today with left upper quadrant pain x2 days radiating to the midback with nausea, vomiting and diarrhea. Acute on chronic pancreatitis WBC 12.3-reactive reolved. tachycardia(resolved) secondary to pain, no active infection abdominopelvic CT with small hiatal hernia. Atrophic pancreas with multiple parenchymal calcifications which could be related to sequela from chronic pancreatitis. Moderate hepatomegaly with diffuse hepatic steatosis. lft's improving,UTox positive for cocaine, opiates, barbiturates lipase 8, low due to chronic pancreatitis lear liquid diet, advance diet as tolerated,pain management with oxycodone and Dilaudid Hypokalemia- secondary to vomiting repleted and resolved. moniter bmp. Alcohol use disorder, likely alcohol withdrawal:alcohol level 132 monitor CIWA 1. plan: if CIWA scores become elevated, initiate phenobarb protocol,thiamine, folic acid, multivitamin. seizure precautions addiction med consult alcoholic gastritis- pantoprazole Substance use disorder utox positive for opiates, barbiturates, cocaine alcohol level 132 addiction med consult GERD - continue home meds Anxiety and depression - continue home meds Class 1 obesity - BMI 30.8 - weight loss encouraged Full code VTE prophylaxis: Lovenox ongoing need: acute on chronic pancreatitis requiring admission for at least 2 midnight stay for pain management and alcohol withdrawal. Quality Stroke Does the patient have a stroke diagnosis?: No VTE Prior VTE?: No VTE Risk Level:: Medical - moderate - high VTE Device Contraindication: Treatment Not Indicated VTE Drug Contraindication: N/A - Med Ordered
[2025-01-15] VITALS (9 sets, daily range): BP systolic 84–115; BP diastolic 55–82; PULSE 96–111; RESP 16–18; TEMP 36.3–37.2; O2SAT 92–98
[2025-01-15] MEDS: Lactated Ringers 1,000 ML 100 ML IVCONT ×3 (02:08→19:48)
[2025-01-15 06:55] LABS: Hematocrit 32.3 % (37.0-47.0); Hemoglobin 10.3 g/dl (12.0-16.0); Mean Corpuscular HGB Conc 31.9 g/dl (31.0-35.0); Mean Corpuscular Hemoglobin 30.2 pg (27.0-33.0); Mean Corpuscular Volume 94.7 fL (80.0-98.0); NRBC Abs Auto 0.000 X10*3/uL (0.0-0.012); NRBC Pct Auto 0.0 /100WBC (0.0-0.2); Platelet Count 235 X10*3/uL (160-400); Red Blood Count 3.41 X10*6/uL (4.20-5.50); White Blood Count 7.5 X10*3/uL (4.8-10.8)
--- NOTE | 2025-01-15 07:12 | PM.GICN ---
History of Present Illness Data of Consult Service Date: 01/15/25 Primary Care Provider: Anai Lane NP [facility] Reason for consult: pancreatitis Patient is a 44-year-old female with a past medical history significant for chronic pancreatitis, alcohol use disorder, substance use disorder, mood disorder, GERD, class 1 obesity, who presented to the ED again due to upper abdominal pain with nausea, vomiting and diarrhea. The patient reports she has been unable to eat for the past 2 days due to her pain. She has been drinking alcohol again. Her last alcoholic beverage around 16:00 today. She denies any urinary symptoms including frequency, urgency or dysuria. No headache, anxiety, tremors, visual or auditory hallucinations at this time. She denies a cough, chest pain or shortness of breath. [facility] Past Medical History Medical History Alcohol abuse Alcoholism Suicidal ideations Intentional overdose Chronic cough Chronic pancreatitis Cocaine use Alcohol abuse Obesity (BMI 30.0-34.9) Pancreatitis Back pain Alcohol use disorder, severe, dependence Gastritis Gastritis Endometriosis Constipation Anxiety Depression Bipolar disorder Suicidal behavior PTSD (post-traumatic stress disorder) Surgical History Surgical History History of ankle surgery Social History Social History Household Members: Spouse Housing: House Do you presently have visiting nurse or other home services: No Alcohol intake: current Alcohol intake frequency: 3 or more drinks per day Alcohol type: beer and hard liquor Comment: pt reports no effects as of yet Patient Tobacco Use Status: Former Tobacco user Tobacco use type: Cigarette Cigarette Packs Per Day: 0 Cigarettes Per Day: 0 e-Cigarette/Vaping Use: Never Used Second Hand Smoke Exposure: No Substance Use Type: Crack/Cocaine Advance Directives Date on File: 09/07/23 service: No Sexual orientation: Straight/Heterosexual Meds Allergies Allergy/AdvReac Type Severity Reaction Status Date / Time ibuprofen AdvReac Stomach Verified 01/12/25 18:55 Upset morphine AdvReac Gastrointestinal Verified 01/12/25 18:55 Upset bees Allergy Severe Anaphylaxis Uncoded 01/12/25 18:55 Active Medications: Current Medications Acetaminophen (Acetaminophen 325 Mg Tablet) 650 mg PO Q6H PRN PRN Reason: Pain, Mild 1-3,fever,headache Albuterol Sulfate (Albuterol Sulfate 90 Mcg 8 Gm Inhaler) 2 puff INHALE Q4H PRN PRN Reason: Shortness Of Breath Or Wheezing Lipase/Protease/Amylase (Lipase/Prot/Amylase 12/38/60k Capsule.Dr) 3 cap PO TIDWM [facility] Last Admin: 01/14/25 16:08 Dose: 3 cap Aripiprazole (Aripiprazole 10 Mg Tablet) 10 mg PO BEDTIME [facility] Last Admin: 01/14/25 20:55 Dose: 10 mg Bupropion HCl (Bupropion Hcl Xl 300 Mg Tab.Er.24h) 300 mg PO DAILY [facility] Last Admin: 01/14/25 09:51 Dose: 300 mg Calcium Carbonate (Calcium Carbonate 750 Mg Tab.Chew) 750 mg PO Q4H PRN PRN Reason: Heartburn Doxepin HCl (Doxepin Hcl 25 Mg Capsule) 50 mg PO BEDTIME [facility] Last Admin: 01/14/25 20:54 Dose: 50 mg Enoxaparin Sodium (Enoxaparin Sodium 40 Mg/0.4 Ml Syringe) 40 mg SUBCUT Q24H [facility] Last Admin: 01/14/25 23:58 Dose: Not Given Folic Acid (Folic Acid 1 Mg Tablet) 1 mg PO DAILY [facility] Stop: 01/16/25 08:59 Last Admin: 01/14/25 09:51 Dose: 1 mg Gabapentin (Gabapentin 600 Mg Tablet) 600 mg PO TID [facility] Last Admin: 01/14/25 20:55 Dose: 600 mg Hydromorphone HCl (Hydromorphone Hcl 0.5 Mg/0.5 Ml Syringe) 1 mg IVPUSH Q3H PRN; Protocol PRN Reason: Pain, Severe (Pain Scale 7-10) Last Admin: 01/15/25 06:03 Dose: 1 mg Lactated Ringer's (Lr) 1,000 mls @ 100 mls/hr IVCONT .Q10H [facility] Last Admin: 01/15/25 02:08 Dose: 100 mls/hr Lamotrigine (Lamotrigine 25 Mg Tablet) 75 mg PO BEDTIME [facility] Last Admin: 01/14/25 20:55 Dose: 75 mg Lorazepam (Lorazepam 1 Mg Tablet) 1 mg PO TID PRN PRN Reason: Anxiety Last Admin: 01/15/25 03:43 Dose: 1 mg Magnesium Hydroxide (Milk Of Magnesia 30 Ml Oral.Susp) 30 ml PO DAILY PRN PRN Reason: Constipation Melatonin (Melatonin 3 Mg Tablet) 6 mg PO BEDTIME PRN PRN Reason: Insomnia Last Admin: 01/13/25 20:59 Dose: 6 mg Melatonin (Melatonin 3 Mg Tablet) 15 mg PO BEDTIME PRN PRN Reason: Sleep Multivitamins/Vitamin C (Multivitamin Tablet) 1 tab PO DAILY [facility] Stop: 01/16/25 08:59 Last Admin: 01/14/25 09:51 Dose: 1 tab Ondansetron HCl (Ondansetron Hcl 4 Mg/2 Ml Vial) 4 mg IVPUSH Q8H PRN PRN Reason: Nausea and Vomiting Last Admin: 01/14/25 09:07 Dose: 4 mg Oxycodone HCl (Oxycodone Hcl Immed Release 5 Mg Tablet) 5 mg PO Q6H PRN PRN Reason: Pain, Moderate(Pain Scale 4-6) Last Admin: 01/14/25 18:03 Dose: 5 mg Pantoprazole Sodium (Pantoprazole Sodium 40 Mg/10 Ml Vial) 40 mg IVPUSH DAILY@0630 [facility] Last Admin: 01/15/25 05:52 Dose: 40 mg Pharmacy Consult (Consult Rx Etoh Phenob Im/Po) 1 each MISCELLANE ONCE PRN; Protocol PRN Reason: Consult order Phenobarbital (Phenobarbital 15 Mg Tablet) 45 mg PO BID [facility]; Protocol Stop: 01/15/25 09:01 Last Admin: 01/14/25 20:55 Dose: 45 mg Phenobarbital (Phenobarbital 15 Mg Tablet) 15 mg PO BID [facility] Stop: 01/17/25 09:01 Phenobarbital (Phenobarbital 15 Mg Tablet) 15 mg PO DAILY [facility]; Protocol Stop: 01/19/25 09:01 Prazosin HCl (Prazosin Hcl 5 Mg Capsule) 5 mg PO BEDTIME [facility]; Protocol Last Admin: 01/14/25 20:55 Dose: 5 mg Prochlorperazine Edisylate (Prochlorperazine Edisylate 10 Mg/2 Ml Vial) 10 mg IVPUSH Q6H PRN PRN Reason: Nausea and Vomiting Last Admin: 01/14/25 11:07 Dose: 10 mg Sodium Chloride (0.9 % Sodium Chloride Flush 3 Ml Syringe) 3 ml IVFLUSH QSHIFT [facility] Last Admin: 01/14/25 21:00 Dose: 3 ml Thiamine HCl (Thiamine Hcl 100 Mg Tablet) 100 mg PO DAILY [facility] Stop: 01/16/25 08:59 Last Admin: 01/14/25 09:51 Dose: 100 mg Trazodone HCl (Trazodone Hcl 50 Mg Tablet) 150 mg PO BEDTIME [facility] Last Admin: 01/14/25 20:55 Dose: 150 mg Home Medications ?Medication ?Instructions ?Recorded ?Confirmed ?Last Taken ?Type aripiprazole 10 mg tablet 10 mg PO BEDTIME 05/21/21 01/13/25 01/10/25 History doxepin 50 mg capsule 50 mg PO BEDTIME 05/21/21 01/13/25 12/25/24 History gabapentin 600 mg tablet 600 mg PO TID 05/21/21 01/13/25 01/10/25 History lorazepam 1 mg tablet 1 mg PO TID PRN Anxiety 05/21/21 01/13/25 09/28/24 History pantoprazole 40 mg tablet,delayed 40 mg PO DAILY@0630 05/21/21 01/13/25 01/10/25 History release bupropion HCl 300 mg 24 hr tablet, 300 mg PO DAILY 09/07/23 01/13/25 01/10/25 History extended release folic acid 1 mg tablet 1 mg PO DAILY 09/07/23 01/13/25 01/10/25 History lamotrigine 25 mg tablet 75 mg PO BEDTIME 09/07/23 01/13/25 01/10/25 History [id number] 1 cap PO TIDWM 08/23/24 01/13/25 01/10/25 History 36,000-114,000-180,000 unit capsule,delay rel (Creon) trazodone 150 mg tablet 150 mg PO BEDTIME 08/23/24 01/13/25 01/10/25 History albuterol sulfate 90 mcg/actuation 2 puff inhalation Q4H PRN 11/15/24 01/13/25 Unknown History aerosol inhaler (Ventolin HFA) Shortness Of Breath Or Wheezing melatonin 3 mg tablet 15 mg PO BEDTIME PRN Sleep 12/27/24 01/13/25 Unknown History thiamine HCl (vitamin B1) 100 mg 100 mg PO BID 12/27/24 01/13/25 01/10/25 History tablet Physical Exam Vital Signs: Vital Signs: Last Vital Signs Temp 97.3 F 01/15/25 04:00 Pulse 111 H 01/15/25 04:00 Resp 18 01/15/25 04:00 BP 103/69 01/15/25 04:00 Pulse Ox 95 01/15/25 04:00 O2 Del Method Room Air 01/15/25 04:00 BMI result Body Mass Index 30.8 Results Labs 01/15/25 06:41 01/14/25 06:26 Labs: Short CBC 01/15/25 Range/Units 06:41 WBC 7.5 (4.8-10.8) X10*3/uL Hgb 10.3 L (12.0-16.0) g/dl Hct 32.3 L (37.0-47.0) % Plt Count 235 (160-400) X10*3/uL BMP 01/14/25 06:26 Sodium 138 Potassium 3.8 Chloride 100 Carbon Dioxide 30 H BUN 3 L Creatinine 0.54 Calcium 8.1 L Liver Function 01/14/25 Range/Units 06:26 Total Bilirubin 1.4 H (0.0-1.0) mg/dL AST 89 H (5-31) U/L ALT 32 H (0-31) U/L Alkaline Phosphatase 154 H (39-117) U/L Albumin 3.0 L (3.5-5.0) g/dL Procedures Date of Service Date of Service: 01/15/25
[2025-01-15 07:18] LABS: Alanine Aminotransferase 34 U/L (0-31); Albumin Level 3.0 g/dL (3.5-5.0); Alkaline Phosphatase 149 U/L (39-117); Anion Gap 12 (12-20); Aspartate Amino Transferase 86 U/L (5-31); Blood Urea Nitrogen < 3 mg/dL (9-16); Calcium 8.0 mg/dL (8.4-10.2); Carbon Dioxide 30 mmol/L (22-29); Chloride 100 mmol/L (96-108); Creatinine Clr Calc Pharmacy 125.3; Estimated Glomerular Filt Rate > 60; Magnesium 1.7 mg/dL (1.6-2.6); Potassium 3.6 mmol/L (3.3-5.1); Sodium 138 mmol/L (135-145); Total Protein 5.2 g/dL (6.5-8.0)
[2025-01-15] MEDS: buPROPion HCl XL 300 MG TAB.ER.24H PO (07:57)
[2025-01-15] MEDS: Lipase/Prot/Amylase 12/38/60K CAPSULE.DR 3 CAP PO ×3 (07:57→15:52)
[2025-01-15] MEDS: oxyCODONE HCl Immed Release 5 MG TABLET PO ×3 (07:58→22:12)
[2025-01-15] MEDS: 0.9 % Sodium Chloride Flush 3 ML SYRINGE IVFLUSH ×2 (07:58→15:53)
--- NOTE | 2025-01-15 11:14 | MHC.RECOVRN ---
Tw attempted to follow-up with pt to assess w/d symptoms and offer continued support. Pt is resting in bed, eyes closed, and does not appear to be in any acute distress. Respirations are even and unlabored. Tw will attempt to meet with pt later today and is available as needed for recovery support and resources.
--- NOTE | 2025-01-15 12:01 | MHC.CM.PN ---
Per ROUNDS discussion, Patient is not yet medically cleared for dc (still withdrawing); home is Patient's goal and CM will continue to follow.
--- NOTE | 2025-01-15 12:48 | HO.PM.IMPN ---
Subjective Subjective Date of Service: 01/15/25 Interval History: withdrawal Physical Exam Exam: Exam: General: AO X 3, no acute distress Resp: CTA bilateral, no accessory muscles used CVS: S1,S2,RRR GI: soft, non tender, non distended Neuro: motor grossly intact, alert, tremor Psych: appropriate affect, appropriate insight Vital Signs: Vital Signs: Last Vital Signs Temp 98.1 F 01/15/25 11:35 Pulse 105 H 01/15/25 12:32 Resp 18 01/15/25 11:35 BP 102/73 01/15/25 12:32 Pulse Ox 92 01/15/25 11:35 O2 Del Method Room Air 01/15/25 11:35 BMI result Body Mass Index 30.8 Objective Data Active Medications Acetaminophen (Acetaminophen 325 Mg Tablet) 650 mg PO Q6H PRN PRN Reason: Pain, Mild 1-3,fever,headache Albuterol Sulfate (Albuterol Sulfate 90 Mcg 8 Gm Inhaler) 2 puff INHALE Q4H PRN PRN Reason: Shortness Of Breath Or Wheezing Lipase/Protease/Amylase (Lipase/Prot/Amylase 12/38/60k Capsule.Dr) 3 cap PO TIDWM [facility] Last Admin: 01/15/25 12:18 Dose: 3 cap Documented By: DEYANIRA Aripiprazole (Aripiprazole 10 Mg Tablet) 10 mg PO BEDTIME [facility] Last Admin: 01/14/25 20:55 Dose: 10 mg Documented By: ARMANDO Bupropion HCl (Bupropion Hcl Xl 300 Mg Tab.Er.24h) 300 mg PO DAILY [facility] Last Admin: 01/15/25 07:57 Dose: 300 mg Documented By: DEYANIRA Calcium Carbonate (Calcium Carbonate 750 Mg Tab.Chew) 750 mg PO Q4H PRN PRN Reason: Heartburn Doxepin HCl (Doxepin Hcl 25 Mg Capsule) 50 mg PO BEDTIME [facility] Last Admin: 01/14/25 20:54 Dose: 50 mg Documented By: ARMANDO Enoxaparin Sodium (Enoxaparin Sodium 40 Mg/0.4 Ml Syringe) 40 mg SUBCUT Q24H [facility] Last Admin: 01/14/25 23:58 Dose: Not Given Documented By: ARMANDO Non-Admin Reason: Patient Refused Folic Acid (Folic Acid 1 Mg Tablet) 1 mg PO DAILY [facility] Stop: 01/16/25 08:59 Last Admin: 01/15/25 07:57 Dose: 1 mg Documented By: DEYANIRA Gabapentin (Gabapentin 600 Mg Tablet) 600 mg PO TID [facility] Last Admin: 01/15/25 07:58 Dose: 600 mg Documented By: DEYANIRA Hydromorphone HCl (Hydromorphone Hcl 0.5 Mg/0.5 Ml Syringe) 1 mg IVPUSH Q3H PRN; Protocol PRN Reason: Pain, Severe (Pain Scale 7-10) Last Admin: 01/15/25 10:42 Dose: 1 mg Documented By: DEYANIRA Lactated Ringer's (Lr) 1,000 mls @ 100 mls/hr IVCONT .Q10H [facility] Last Admin: 01/15/25 12:29 Dose: Not Given Documented By: DEYANIRA Non-Admin Reason: IV Running Lamotrigine (Lamotrigine 25 Mg Tablet) 75 mg PO BEDTIME [facility] Last Admin: 01/14/25 20:55 Dose: 75 mg Documented By: ARMANDO Lorazepam (Lorazepam 1 Mg Tablet) 1 mg PO TID PRN PRN Reason: Anxiety Last Admin: 01/15/25 12:18 Dose: 1 mg Documented By: DEYANIRA Magnesium Hydroxide (Milk Of Magnesia 30 Ml Oral.Susp) 30 ml PO DAILY PRN PRN Reason: Constipation Melatonin (Melatonin 3 Mg Tablet) 6 mg PO BEDTIME PRN PRN Reason: Insomnia Last Admin: 01/13/25 20:59 Dose: 6 mg Documented By: ARMANDO Melatonin (Melatonin 3 Mg Tablet) 15 mg PO BEDTIME PRN PRN Reason: Sleep Multivitamins/Vitamin C (Multivitamin Tablet) 1 tab PO DAILY [facility] Stop: 01/16/25 08:59 Last Admin: 01/15/25 07:57 Dose: 1 tab Documented By: DEYANIRA Ondansetron HCl (Ondansetron Hcl 4 Mg/2 Ml Vial) 4 mg IVPUSH Q8H PRN PRN Reason: Nausea and Vomiting Last Admin: 01/14/25 09:07 Dose: 4 mg Documented By: DEYANIRA Oxycodone HCl (Oxycodone Hcl Immed Release 5 Mg Tablet) 5 mg PO Q6H PRN PRN Reason: Pain, Moderate(Pain Scale 4-6) Last Admin: 01/15/25 07:58 Dose: 5 mg Documented By: DEYANIRA Pantoprazole Sodium (Pantoprazole Sodium 40 Mg/10 Ml Vial) 40 mg IVPUSH DAILY@0630 [facility] Last Admin: 01/15/25 05:52 Dose: 40 mg Documented By: ARMANDO Pharmacy Consult (Consult Rx Etoh Phenob Im/Po) 1 each MISCELLANE ONCE PRN; Protocol PRN Reason: Consult order Phenobarbital (Phenobarbital 15 Mg Tablet) 15 mg PO BID [facility] Stop: 01/17/25 09:01 Phenobarbital (Phenobarbital 15 Mg Tablet) 15 mg PO DAILY [facility]; Protocol Stop: 01/19/25 09:01 Prazosin HCl (Prazosin Hcl 5 Mg Capsule) 5 mg PO BEDTIME [facility]; Protocol Last Admin: 01/14/25 20:55 Dose: 5 mg Documented By: ARMANDO Prochlorperazine Edisylate (Prochlorperazine Edisylate 10 Mg/2 Ml Vial) 10 mg IVPUSH Q6H PRN PRN Reason: Nausea and Vomiting Last Admin: 01/14/25 11:07 Dose: 10 mg Documented By: DEYANIRA Sodium Chloride (0.9 % Sodium Chloride Flush 3 Ml Syringe) [facility] Last Admin: 01/15/25 07:58 Dose: 3 ml Documented By: DEYANIRA Thiamine HCl (Thiamine Hcl 100 Mg Tablet) 100 mg PO DAILY [facility] Stop: 01/16/25 08:59 Last Admin: 01/15/25 07:57 Dose: 100 mg Documented By: DEYANIRA Trazodone HCl (Trazodone Hcl 50 Mg Tablet) 150 mg PO BEDTIME [facility] Last Admin: 01/14/25 20:55 Dose: 150 mg Documented By: ARMANDO Labs 01/15/25 06:41 01/15/25 06:41 Labs: Laboratory Results - last 24 hr 01/15/25 06:41 MCV 94.7 MCH 30.2 MCHC 31.9 RDW 14.9 Plt Count 235 MPV 10.1 Absolute Nucleated RBC 0.000 Nucleated RBC % (auto) 0.0 Anion Gap 12 Estim Creat Clear Calc 125.3 Estimated GFR > 60 Random Glucose 109 Calcium 8.0 L Magnesium 1.7 Total Bilirubin 1.2 H AST 86 H ALT 34 H Alkaline Phosphatase 149 H Total Protein 5.2 L Albumin 3.0 L Assessment and Plan (1) Alcohol use disorder: Status: Acute Plan 44F PMH alcohol dependence, chronic pancreatitis, cocaine use, GERD, mood disorder presented with abdominal pain acute on chronic etoh pancreatitis ivd, clears, pain control etoh dependence with witdhrawal phenobarb, ciwa acute hypokalemia replace and monitor polysubstance dependence addiction eval obesity wegiht loss recommended mood disorder lamictal, wellbutrin dvt prophylaxis - lovenox full code reason for continued hospitalization: withdrawal Quality Stroke Does the patient have a stroke diagnosis?: No VTE Prior VTE?: No VTE Risk Level:: Medical - moderate - high VTE Device Contraindication: Treatment Not Indicated VTE Drug Contraindication: N/A - Med Ordered
[2025-01-16] VITALS (8 sets, daily range): BP systolic 95–118; BP diastolic 52–80; PULSE 92–106; RESP 17–20; TEMP 36.3–37.2; O2SAT 92–99
[2025-01-16] MEDS: 0.9 % Sodium Chloride Flush 3 ML SYRINGE IVFLUSH ×2 (00:56→08:32)
[2025-01-16 05:41] LABS: Hematocrit 31.4 % (37.0-47.0); Hemoglobin 10.1 g/dl (12.0-16.0); Mean Corpuscular HGB Conc 32.2 g/dl (31.0-35.0); Mean Corpuscular Hemoglobin 30.0 pg (27.0-33.0); Mean Corpuscular Volume 93.2 fL (80.0-98.0); NRBC Abs Auto 0.000 X10*3/uL (0.0-0.012); NRBC Pct Auto 0.0 /100WBC (0.0-0.2); Platelet Count 181 X10*3/uL (160-400); Red Blood Count 3.37 X10*6/uL (4.20-5.50); White Blood Count 6.0 X10*3/uL (4.8-10.8)
[2025-01-16] MEDS: Lactated Ringers 1,000 ML 100 ML IVCONT ×2 (05:41→15:22)
[2025-01-16 06:04] LABS: Alanine Aminotransferase 48 U/L (0-31); Albumin Level 2.8 g/dL (3.5-5.0); Alkaline Phosphatase 157 U/L (39-117); Anion Gap 13 (12-20); Aspartate Amino Transferase 138 U/L (5-31); Blood Urea Nitrogen 4 mg/dL (9-16); Calcium 8.2 mg/dL (8.4-10.2); Carbon Dioxide 24 mmol/L (22-29); Chloride 104 mmol/L (96-108); Creatinine Clr Calc Pharmacy 127.4; Estimated Glomerular Filt Rate > 60; Potassium 4.0 mmol/L (3.3-5.1); Sodium 137 mmol/L (135-145); Total Protein 5.4 g/dL (6.5-8.0)
[2025-01-16 07:02] LABS: INTERNATIONAL NORM RATIO 1.2 (0.9-1.1); Prothrombin Time 13.7 SEC (10.9-12.4)
[2025-01-16] MEDS: buPROPion HCl XL 300 MG TAB.ER.24H PO (08:32)
[2025-01-16] MEDS: Lipase/Prot/Amylase 12/38/60K CAPSULE.DR 3 CAP PO ×3 (08:32→16:58)
--- NOTE | 2025-01-16 10:29 | HO.PM.IMPN ---
Subjective Subjective Date of Service: 01/16/25 Interval History: withdrawal Physical Exam Exam: Exam: General: AO X 3, no acute distress Resp: CTA bilateral, no accessory muscles used CVS: S1,S2,RRR GI: soft, non tender, non distended Neuro: motor grossly intact, alert, tremor Psych: appropriate affect, appropriate insight Vital Signs: Vital Signs: Last Vital Signs Temp 98.1 F 01/16/25 08:00 Pulse 106 H 01/16/25 08:00 Resp 20 01/16/25 08:00 BP 103/80 01/16/25 08:00 Pulse Ox 95 01/16/25 08:00 O2 Del Method Room Air 01/16/25 08:00 BMI result Body Mass Index 30.8 Objective Data Active Medications Acetaminophen (Acetaminophen 325 Mg Tablet) 650 mg PO Q6H PRN PRN Reason: Pain, Mild 1-3,fever,headache Last Admin: 01/15/25 19:47 Dose: 650 mg Documented By: DANISH Albuterol Sulfate (Albuterol Sulfate 90 Mcg 8 Gm Inhaler) 2 puff INHALE Q4H PRN PRN Reason: Shortness Of Breath Or Wheezing Lipase/Protease/Amylase (Lipase/Prot/Amylase 12/38/60k Capsule.Dr) 3 cap PO TIDWM REPLACED BY [facility] Last Admin: 01/16/25 08:32 Dose: 3 cap Documented By: RUKHSANA Aripiprazole (Aripiprazole 10 Mg Tablet) 10 mg PO BEDTIME REPLACED BY [facility] Last Admin: 01/15/25 20:30 Dose: 10 mg Documented By: DANISH Bupropion HCl (Bupropion Hcl Xl 300 Mg Tab.Er.24h) 300 mg PO DAILY REPLACED BY [facility] Last Admin: 01/16/25 08:32 Dose: 300 mg Documented By: RUKHSANA Calcium Carbonate (Calcium Carbonate 750 Mg Tab.Chew) 750 mg PO Q4H PRN PRN Reason: Heartburn Doxepin HCl (Doxepin Hcl 25 Mg Capsule) 50 mg PO BEDTIME REPLACED BY [facility] Last Admin: 01/15/25 20:31 Dose: 50 mg Documented By: DANISH Enoxaparin Sodium (Enoxaparin Sodium 40 Mg/0.4 Ml Syringe) 40 mg SUBCUT Q24H REPLACED BY [facility] Last Admin: 01/16/25 00:59 Dose: Not Given Documented By: DANISH Non-Admin Reason: Patient Refused Gabapentin (Gabapentin 600 Mg Tablet) 600 mg PO TID REPLACED BY [facility] Last Admin: 01/16/25 08:32 Dose: 600 mg Documented By: RUKHSANA Hydromorphone HCl (Hydromorphone Hcl 0.5 Mg/0.5 Ml Syringe) 1 mg IVPUSH Q3H PRN; Protocol PRN Reason: Pain, Severe (Pain Scale 7-10) Last Admin: 01/16/25 08:32 Dose: 1 mg Documented By: RUKHSANA Lactated Ringer's (Lr) 1,000 mls @ 100 mls/hr IVCONT .Q10H REPLACED BY [facility] Last Admin: 01/16/25 05:41 Dose: 100 mls/hr Documented By: SHADIA Lamotrigine (Lamotrigine 25 Mg Tablet) 75 mg PO BEDTIME REPLACED BY [facility] Last Admin: 01/15/25 21:32 Dose: 75 mg Documented By: DANISH Lorazepam (Lorazepam 1 Mg Tablet) 1 mg PO TID PRN PRN Reason: Anxiety Last Admin: 01/15/25 21:41 Dose: 1 mg Documented By: DANISH Magnesium Hydroxide (Milk Of Magnesia 30 Ml Oral.Susp) 30 ml PO DAILY PRN PRN Reason: Constipation Melatonin (Melatonin 3 Mg Tablet) 6 mg PO BEDTIME PRN PRN Reason: Insomnia Last Admin: 01/13/25 20:59 Dose: 6 mg Documented By: ARMANDO Melatonin (Melatonin 3 Mg Tablet) 15 mg PO BEDTIME PRN PRN Reason: Sleep Ondansetron HCl (Ondansetron Hcl 4 Mg/2 Ml Vial) 4 mg IVPUSH Q8H PRN PRN Reason: Nausea and Vomiting Last Admin: 01/14/25 09:07 Dose: 4 mg Documented By: DEYANIRA Oxycodone HCl (Oxycodone Hcl Immed Release 5 Mg Tablet) 5 mg PO Q6H PRN PRN Reason: Pain, Moderate(Pain Scale 4-6) Last Admin: 01/15/25 22:12 Dose: 5 mg Documented By: DANISH Pantoprazole Sodium (Pantoprazole Sodium 40 Mg/10 Ml Vial) 40 mg IVPUSH DAILY@0630 REPLACED BY [facility] Last Admin: 01/16/25 05:42 Dose: 40 mg Documented By: SHADIA Pharmacy Consult (Consult Rx Etoh Phenob Im/Po) 1 each MISCELLANE ONCE PRN; Protocol PRN Reason: Consult order Phenobarbital (Phenobarbital 15 Mg Tablet) 15 mg PO BID REPLACED BY [facility] Stop: 01/17/25 09:01 Last Admin: 01/16/25 08:32 Dose: 15 mg Documented By: RUKHSANA Phenobarbital (Phenobarbital 15 Mg Tablet) 15 mg PO DAILY ELIZABETH; Protocol Stop: 01/19/25 09:01 Prazosin HCl (Prazosin Hcl 5 Mg Capsule) 5 mg PO BEDTIME ELIZABETH; Protocol Last Admin: 01/15/25 20:29 Dose: 5 mg Documented By: DANISH Prochlorperazine Edisylate (Prochlorperazine Edisylate 10 Mg/2 Ml Vial) 10 mg IVPUSH Q6H PRN PRN Reason: Nausea and Vomiting Last Admin: 01/14/25 11:07 Dose: 10 mg Documented By: DEYANIRA Sodium Chloride (0.9 % Sodium Chloride Flush 3 Ml Syringe) 3 ml IVFLUSH QSHIFT REPLACED BY [facility] Last Admin: 01/16/25 08:32 Dose: 3 ml Documented By: RUKHSANA Trazodone HCl (Trazodone Hcl 50 Mg Tablet) 150 mg PO BEDTIME REPLACED BY [facility] Last Admin: 01/15/25 20:30 Dose: 150 mg Documented By: DANISH Labs 01/16/25 05:32 01/16/25 05:32 Labs: Laboratory Results - last 24 hr 01/16/25 05:32 MCV 93.2 MCH 30.0 MCHC 32.2 RDW 15.2 Plt Count 181 MPV 10.3 Absolute Nucleated RBC 0.000 Nucleated RBC % (auto) 0.0 PT 13.7 H INR 1.2 H Anion Gap 13 Estim Creat Clear Calc 127.4 Estimated GFR > 60 Random Glucose 121 H Calcium 8.2 L Total Bilirubin 1.1 H Direct Bilirubin 0.6 H AST 138 H ALT 48 H Alkaline Phosphatase 157 H Total Protein 5.4 L Albumin 2.8 L Assessment and Plan (1) Alcohol use disorder: Status: Acute Plan 44F PMH alcohol dependence, chronic pancreatitis, cocaine use, GERD, mood disorder presented with abdominal pain acute on chronic etoh pancreatitis ivf, advanced to solids, pain control, creon etoh dependence with witdhrawal phenobarb, ciwa acute hypokalemia replace and monitor polysubstance dependence addiction eval obesity weight loss recommended mood disorder lamictal, wellbutrin dvt prophylaxis - lovenox full code reason for continued hospitalization: withdrawal Quality Stroke Does the patient have a stroke diagnosis?: No VTE Prior VTE?: No VTE Risk Level:: Medical - moderate - high VTE Device Contraindication: Treatment Not Indicated VTE Drug Contraindication: N/A - Med Ordered
[2025-01-16] MEDS: oxyCODONE HCl Immed Release 5 MG TABLET PO ×2 (15:24→22:56)
[2025-01-17] MEDS: Lactated Ringers 1,000 ML 100 ML IVCONT (01:02)
[2025-01-17 03:22] VITALS: BP 107/66; PULSE 91; RESP 20; TEMP 36.3; O2SAT 93
[2025-01-17 07:23] LABS: Hematocrit 29.5 % (37.0-47.0); Hemoglobin 9.6 g/dl (12.0-16.0); Mean Corpuscular HGB Conc 32.5 g/dl (31.0-35.0); Mean Corpuscular Hemoglobin 30.1 pg (27.0-33.0); Mean Corpuscular Volume 92.5 fL (80.0-98.0); NRBC Abs Auto 0.000 X10*3/uL (0.0-0.012); NRBC Pct Auto 0.0 /100WBC (0.0-0.2); Platelet Count 220 X10*3/uL (160-400); Red Blood Count 3.19 X10*6/uL (4.20-5.50); White Blood Count 7.4 X10*3/uL (4.8-10.8)
[2025-01-17] MEDS: buPROPion HCl XL 300 MG TAB.ER.24H PO (07:28)
[2025-01-17] MEDS: Lipase/Prot/Amylase 12/38/60K CAPSULE.DR 3 CAP PO (07:28)
[2025-01-17] MEDS: oxyCODONE HCl Immed Release 5 MG TABLET PO (07:30)
[2025-01-17 07:37] LABS: Alanine Aminotransferase 38 U/L (0-31); Albumin Level 2.8 g/dL (3.5-5.0); Alkaline Phosphatase 139 U/L (39-117); Anion Gap 12 (12-20); Aspartate Amino Transferase 94 U/L (5-31); Blood Urea Nitrogen 3 mg/dL (9-16); Calcium 7.9 mg/dL (8.4-10.2); Carbon Dioxide 28 mmol/L (22-29); Chloride 101 mmol/L (96-108); Creatinine Clr Calc Pharmacy 139.2; Estimated Glomerular Filt Rate > 60; Magnesium 1.6 mg/dL (1.6-2.6); Potassium 3.8 mmol/L (3.3-5.1); Sodium 137 mmol/L (135-145); Total Protein 5.0 g/dL (6.5-8.0)
[2025-01-17 07:45] VITALS: BP 103/75; PULSE 97; RESP 18; TEMP 37; O2SAT 93
--- NOTE | 2025-01-17 09:54 | P.DS_ITS ---
DS: Providers Provider Date of Service: 01/17/25 Date of admission: 01/12/25 23:46 Date of discharge: 01/17/25 Primary care physician: Anai Lane NP Consults: 01/13/25 00:05 Addiction Medicine Provider Routine Consulting Provider: Addiction Covering Reason for consultation: eoth, cocaine Has provider been notified: No DS: Diagnosis Discharge Diagnosis (1) Alcohol use disorder: Status: Acute DS: Summary Hospital Course Hospital Course: from initial hpi: 44-year-old female with a past medical history significant for chronic pancreatitis, alcohol use disorder, substance use disorder, mood disorder, GERD, class 1 obesity, who presented to the ED again due to upper abdominal pain with nausea, vomiting and diarrhea. The patient reports she has been unable to eat for the past 2 days due to her pain. She has been drinking alcohol again. Her last alcoholic beverage around 16:00 today. She denies any urinary symptoms including frequency, urgency or dysuria. No headache, anxiety, tremors, visual or auditory hallucinations at this time. She denies a cough, chest pain or shortness of breath. hospital course: Patient admitted for Acute on chronic alcoholic pancreatitis. Was given IV pain meds, IV fluids, slowly advanced to solids and tolerated. Was also continued on Creon. For alcohol dependence with withdrawal was given phenobarbital protocol and symptoms resolved. For acute hypokalemia received replacement. For polysubstance dependence was seen by Addiction team. For obesity weight loss recommended. For mood disorder was continued on Lamictal and Wellbutrin. Time Attestation Discharge Coordination Time (in mins): 34 Quality: Safe Use of Opioids Does Pt have an Active Cancer Diagnosis on the Problem List?: No Quality: Stroke Does the patient have a stroke diagnosis?: No Physical Exam Exam: Exam: General: AO X 3, no acute distress Resp: CTA bilateral, no accessory muscles used CVS: S1,S2,RRR GI: soft, non tender, non distended Neuro: motor grossly intact, alert Psych: appropriate affect, appropriate insight Vital Signs: Vital Signs: Last Vital Signs Temp 98.6 F 01/17/25 07:45 Pulse 97 01/17/25 07:45 Resp 18 01/17/25 07:45 BP 103/75 01/17/25 07:45 Pulse Ox 93 01/17/25 07:45 O2 Del Method Room Air 01/17/25 07:45 BMI result Body Mass Index 30.8 DS: Data Data Completed and Pending Completed studies during hospitalization [Text1]: Procedures Detoxification Services for Substance Abuse Treatment (11/15/24) Labs on day of discharge: Laboratory Results - last 24 hr 01/17/25 06:58 WBC 7.4 RBC 3.19 L Hgb 9.6 L Hct 29.5 L MCV 92.5 MCH 30.1 MCHC 32.5 RDW 15.5 Plt Count 220 MPV 10.0 Absolute Nucleated RBC 0.000 Nucleated RBC % (auto) 0.0 Sodium 137 Potassium 3.8 Chloride 101 Carbon Dioxide 28 Anion Gap 12 BUN 3 L Creatinine 0.54 Estim Creat Clear Calc 139.2 Estimated GFR > 60 Random Glucose 116 H Calcium 7.9 L Magnesium 1.6 Total Bilirubin 1.0 Direct Bilirubin 0.6 H AST 94 H ALT 38 H Alkaline Phosphatase 139 H Total Protein 5.0 L Albumin 2.8 L Discharge Plan Discharge Anticipated Discharge Date/Time: 01/17/25 09:52 Patient Disposition: Home, Self-Care Discharge Diagnosis: etoh witdhrawal, pancreatitis Referrals: Anai Lane, [employer] [Primary Care Provider, Medical] - 1 Week Discharge Medications: Continued prazosin 5 mg Capsule 5 mg PO BEDTIME 30 Days Qty: 30 0RF doxepin 50 mg capsule 50 mg PO BEDTIME gabapentin 600 mg tablet 600 mg PO TID aripiprazole 10 mg tablet 10 mg PO BEDTIME lorazepam 1 mg tablet 1 mg PO TID PRN (Reason: Anxiety) pantoprazole 40 mg Tablet,Delayed Release (Dr/Ec) 40 mg PO DAILY@0630 trazodone 150 mg tablet 150 mg PO BEDTIME Creon 36,000-114,000- 180,000 unit capsule,delayed release(DR/EC) 1 cap PO TIDWM albuterol sulfate [Ventolin HFA] 90 mcg/actuation HFA aerosol inhaler 2 puff INHALATION Q4H PRN (Reason: Shortness Of Breath Or Wheezing) thiamine HCl (vitamin B1) 100 mg tablet 100 mg PO BID melatonin 3 mg Tablet 15 mg PO BEDTIME PRN (Reason: Sleep) lamotrigine 25 mg tablet 75 mg PO BEDTIME folic acid 1 mg tablet 1 mg PO DAILY bupropion HCl 300 mg tablet extended release 24 hr 300 mg PO DAILY hydromorphone [Dilaudid] 2 mg tablet 1 mg PO Q6H PRN (Reason: pain) Qty: 5 0RF Rx Instructions: Partial Fill upon patient request. Discharge Orders: Discharge Order (Routine); Ordered 01/17/25 Ordered By: Faustino Jha Diet: Advance to usual diet Activity on Discharge: As tolerated Stand Alone Forms: Patient Portal Discharge page Print Language: [place] Care Plan Goals: recovery Health Concerns: etoh Plan of Treatment: avoid etoh Assessment: see above
--- NOTE | 2025-01-17 12:04 | MHC.CM.PN ---
Pt is medically cleared for discharge home self-care today, she will arrange her own transport home.
== END 2025-01-17 11:12 | disposition home or self-care (01) | DRG 282 ==
LOC: HO.ED 19:03 → HO.EDOVER 23:19 → HO.IMC 01-13 18:02
PROVIDERS: Physician Assistant; Admitting Provider Internal Medicine; Emergency Provider Emergency Medicine Emergency Medical Services; PCP Nurse Practitioner Adult Health; Visit Provider Internal Medicine
DX: K85.20 Alcohol induced acute pancreatitis without necrosis or infection (principal); K76.0 Fatty (change of) liver, not elsewhere classified; E66.811 Obesity, class 1; F10.239 Alcohol dependence with withdrawal, unspecified; E87.6 Hypokalemia; K86.0 Alcohol-induced chronic pancreatitis; F17.210 Nicotine dependence, cigarettes, uncomplicated; F19.20 Other psychoactive substance dependence, uncomplicated; Z71.6 Tobacco abuse counseling; Y90.6 Blood alcohol level of 120-199 mg/100 ml; K29.20 Alcoholic gastritis without bleeding; K21.9 Gastro-esophageal reflux disease without esophagitis; F32.A Depression, unspecified; F41.9 Anxiety disorder, unspecified; Z71.3 Dietary counseling and surveillance; Z68.30 Body mass index [BMI] 30.0-30.9, adult; Z79.899 Other long term (current) drug therapy
CPT/HCPCS: 36415; 74176; 80048; 80053; 80076; 80307; 83690; 83735; 84702; 85025; 85027; 85610; 93005; 99285; J0737; J1171; J1650; J2405; J2470; J2560; J3475; J3480; J7120; S9485

== ENCOUNTER → 2025-01-12 19:13 | Outpatient (BNV) | payer OTHER, SELFPAY | PROVIDERS: Emergency Provider Emergency Medicine Emergency Medical Services; PCP Nurse Practitioner Adult Health; Visit Provider Student in an Organized Health Care Education/Training Program | DX: K86.89 Other specified diseases of pancreas (principal); K44.9 Diaphragmatic hernia without obstruction or gangrene; R16.0 Hepatomegaly, not elsewhere classified; K76.0 Fatty (change of) liver, not elsewhere classified | CPT/HCPCS: 74176 ==

== ENCOUNTER → 2025-01-12 19:16 | Outpatient (BNV) | payer OTHER, SELFPAY | PROVIDERS: Admitting Provider Internal Medicine; Emergency Provider Emergency Medicine Emergency Medical Services; PCP Nurse Practitioner Adult Health; Visit Provider Internal Medicine Cardiovascular Disease | DX: R00.0 Tachycardia, unspecified (principal) | CPT/HCPCS: 93010 ==

== ENCOUNTER → 2025-01-12 23:46 | Outpatient (BNV) | payer OTHER, SELFPAY | PROVIDERS: Admitting Provider Internal Medicine; Emergency Provider Emergency Medicine Emergency Medical Services; PCP Nurse Practitioner Adult Health; Visit Provider Internal Medicine | DX: K85.90 Acute pancreatitis without necrosis or infection, unspecified (principal) | CPT/HCPCS: 99232 ==

== ENCOUNTER → 2025-01-12 23:46 | Outpatient (BNV) | payer OTHER, SELFPAY | PROVIDERS: Admitting Provider Internal Medicine; Emergency Provider Emergency Medicine Emergency Medical Services; PCP Nurse Practitioner Adult Health; Visit Provider Nurse Practitioner Psychiatric/Mental Health | DX: F10.90 Alcohol use, unspecified, uncomplicated (principal); K85.90 Acute pancreatitis without necrosis or infection, unspecified | CPT/HCPCS: 99221 ==

== ENCOUNTER 2025-01-24 00:19 | Inpatient (IN) | payer OTHER, SELFPAY ==
[2025-01-24] VITALS (11 sets, daily range): BP systolic 97–146; BP diastolic 54–96; PULSE 78–111; RESP 12–20; TEMP 36.1–37.2; O2SAT 93–98; BMI 31.0; BMI 33.2
[2025-01-24 01:22] LABS: MANUAL DIFF FLAG NO
[2025-01-24 01:23] LABS: Hematocrit 36.7 % (37.0-47.0); Hemoglobin 12.5 g/dl (12.0-16.0); Imm Gran Abs Auto 0.05 X10*3/uL (0.00-0.03); Imm Gran Pct Auto 0.4 % (0.0-0.4); Lymphocytes Absolute Auto 1.8 X10*3/uL (1.2-4.9); Mean Corpuscular HGB Conc 34.1 g/dl (31.0-35.0); Mean Corpuscular Hemoglobin 30.0 pg (27.0-33.0); Mean Corpuscular Volume 88.2 fL (80.0-98.0); NRBC Abs Auto 0.000 X10*3/uL (0.0-0.012); NRBC Pct Auto 0.0 /100WBC (0.0-0.2); Platelet Count 413 X10*3/uL (160-400); Red Blood Count 4.16 X10*6/uL (4.20-5.50); White Blood Count 13.3 X10*3/uL (4.8-10.8)
[2025-01-24] MEDS: Lactated Ringers 1,000 ML 999 ML IV ×2 (01:30→05:23)
[2025-01-24 01:40] LABS: Alanine Aminotransferase 29 U/L (0-31); Albumin Level 3.8 g/dL (3.5-5.0); Alkaline Phosphatase 211 U/L (39-117); Anion Gap 18 (12-20); Aspartate Amino Transferase 110 U/L (5-31); Blood Urea Nitrogen < 3 mg/dL (9-16); Calcium 8.7 mg/dL (8.4-10.2); Carbon Dioxide 28 mmol/L (22-29); Chloride 94 mmol/L (96-108); Creatinine Clr Calc Pharmacy 127.9; Estimated Glomerular Filt Rate > 60; Lipase 6 U/L (8-78); Potassium 3.4 mmol/L (3.3-5.1); Sodium 137 mmol/L (135-145); Total Protein 6.9 g/dL (6.5-8.0)
--- NOTE | 2025-01-24 02:01 | ED.GENADULT ---
HPI - General Adult General Chief complaint: Abdominal Pain Stated complaint: ABDOMINAL PAIN Time Seen by Provider: 01/24/25 00:40 Source: patient Mode of arrival: ambulatory Limitations: no limitations History of Present Illness ED Provider: Dr. Harmon HPI narrative: 44-year-old female history of alcohol use disorder, chronic pancreatitis, alcoholic gastritis presented hospital today for evaluation of nausea vomiting for the past 3 days along with diarrhea. Patient stated that this started shortly after she drank some alcohol 3 days ago. Since then she has not been able to eat or drink. She is unable to take her home medication due to persistent nausea and vomiting. Related Data Home Medications ?Medication ?Instructions ?Recorded ?Confirmed aripiprazole 10 mg tablet 10 mg PO BEDTIME 05/21/21 01/13/25 doxepin 50 mg capsule 50 mg PO BEDTIME 05/21/21 01/13/25 gabapentin 600 mg tablet 600 mg PO TID 05/21/21 01/13/25 lorazepam 1 mg tablet 1 mg PO TID PRN Anxiety 05/21/21 01/13/25 pantoprazole 40 mg tablet,delayed 40 mg PO DAILY@0630 05/21/21 01/13/25 release bupropion HCl 300 mg 24 hr tablet, 300 mg PO DAILY 09/07/23 01/13/25 extended release folic acid 1 mg tablet 1 mg PO DAILY 09/07/23 01/13/25 lamotrigine 25 mg tablet 75 mg PO BEDTIME 09/07/23 01/13/25 [id number] 1 cap PO TIDWM 08/23/24 01/13/25 36,000-114,000-180,000 unit capsule,delay rel (Creon) trazodone 150 mg tablet 150 mg PO BEDTIME 08/23/24 01/13/25 albuterol sulfate 90 mcg/actuation 2 puff inhalation Q4H PRN 11/15/24 01/13/25 aerosol inhaler (Ventolin HFA) Shortness Of Breath Or Wheezing melatonin 3 mg tablet 15 mg PO BEDTIME PRN Sleep 12/27/24 01/13/25 thiamine HCl (vitamin B1) 100 mg 100 mg PO BID 12/27/24 01/13/25 tablet Previous Rx's ?Medication ?Instructions ?Recorded prazosin 5 mg capsule 5 mg PO BEDTIME 30 days #30 caps 10/13/20 hydromorphone 2 mg tablet 1 mg (1/2 x 2 mg) PO Q6H PRN pain 01/17/25 (Dilaudid) #5 tabs Allergies Allergy/AdvReac Type Severity Reaction Status Date / Time ibuprofen AdvReac Stomach Verified 01/24/25 00:27 Upset morphine AdvReac Gastrointestinal Verified 01/24/25 00:27 Upset bees Allergy Severe Anaphylaxis Uncoded 01/24/25 00:27 Review of Systems Review of Systems: Pertinent review of systems as mentioned in HPI. All other system otherwise negative. [facility] Past Medical History [facility] Narrative: Medical history as mentioned in HPI Medical History Alcohol abuse Alcoholism Suicidal ideations Intentional overdose Chronic cough Chronic pancreatitis Cocaine use Alcohol abuse Obesity (BMI 30.0-34.9) Pancreatitis Back pain Alcohol use disorder, severe, dependence Gastritis Gastritis Endometriosis Constipation Anxiety Depression Bipolar disorder Suicidal behavior PTSD (post-traumatic stress disorder) Surgical History History of ankle surgery Social History Social History Household Members: Spouse Housing: House Do you presently have visiting nurse or other home services: No Alcohol intake: current Alcohol intake frequency: 3 or more drinks per day Alcohol type: beer and hard liquor Comment: pt low fall risk Patient Tobacco Use Status: Former Tobacco user Tobacco use type: Cigarette Cigarette Packs Per Day: 0 Cigarettes Per Day: 0 Smoked in Last 30 Days: Yes e-Cigarette/Vaping Use: Never Used Second Hand Smoke Exposure: No Use of substances other than those prescribed or required for medical reasons: No Substance Use Type: Crack/Cocaine Advance Directives: Yes Advance Directives on File: Yes Advance Directives Date on File: 09/07/23 Patient : No service: No Sexual orientation: Straight/Heterosexual Physical Exam ED Exam Exam: General: Appears nauseous Head: Normacephalic, atraumatic ENT: oral mucosa moist, neck supple, no tracheal deviation Cardiovascular: Tachycardic rate, regular rhythm, no murmurs, rubbing, gallops Respiratory: CTAB, no wheeze, rales, rhonchi Gastrointestinal: Soft, non distended, epigastric tenderness on palpation Extremities: No limb pain or swelling, no calf tenderness Neurological: Awake and alert, no facial droop noted Skin: Warm and dry Psychiatric: Appropriate mood and thoughts Vital Signs: Vital Signs - 24 hr 01/24/25 00:27 01/24/25 05:23 Temperature 98.9 F Pulse Rate 108 H 100 Respiratory Rate 20 20 Blood Pressure 128/85 139/96 H Pulse Oximetry 96 98 Oxygen Delivery Method Room Air Room Air BMI result Body Mass Index 31.0 Medications Administered Generic Name Dose Route Start Last Admin Trade Name Freq PRN Reason Stop Dose Admin Lactated Ringer's 1,000 mls @ 999 mls/hr 01/24/25 05:15 01/24/25 05:23 Lr IV 01/24/25 06:15 999 mls/hr .Q1H1M ELIZABETH Administration Discontinued Medications Generic Name Dose Route Start Last Admin Trade Name Freq PRN Reason Stop Dose Admin Al Hydroxide/Mg Hydroxide 30 ml 01/24/25 05:30 01/24/25 05:46 Magnesium Hydrox/Alum Hydrox 30 Ml Oral.Susp PO 01/24/25 05:31 30 ml ONCE ONE Administration Famotidine 20 mg 01/24/25 05:30 01/24/25 05:46 Famotidine/Pf 20 Mg/2 Ml Vial IVPUSH 01/24/25 05:31 20 mg ONCE ONE Administration Hydromorphone HCl 0.5 mg 01/24/25 01:16 01/24/25 01:30 Hydromorphone Hcl 0.5 Mg/0.5 Ml Syringe IVPUSH 01/24/25 01:17 0.5 mg ONCE ONE Administration Protocol Hydromorphone HCl 1 mg 01/24/25 02:30 01/24/25 02:50 Hydromorphone Hcl 1 Mg/Ml Syringe IVPUSH 01/24/25 02:31 1 mg ONCE ONE Administration Protocol Hydromorphone HCl 1 mg 01/24/25 05:30 01/24/25 05:48 Hydromorphone Hcl 1 Mg/Ml Syringe IVPUSH 01/24/25 05:31 1 mg ONCE ONE Administration Protocol Lactated Ringer's 1,000 mls @ 999 mls/hr 01/24/25 01:00 01/24/25 02:50 Lr IV 01/24/25 02:00 Infused .Q1H1M ELIZABETH Infusion Lidocaine HCl 15 ml 01/24/25 05:30 01/24/25 05:46 Lidocaine Hcl Viscous 2 % 15 Ml Solution MUCOUS MEM 01/24/25 05:31 15 ml ONCE ONE Administration Lorazepam 1 mg 01/24/25 04:23 01/24/25 05:19 Lorazepam 1 Mg Tablet PO 01/24/25 04:24 1 mg ONCE ONE Administration Metoclopramide HCl 10 mg 01/24/25 03:12 01/24/25 03:17 Metoclopramide Hcl 10 Mg/2 Ml Vial IVPUSH 01/24/25 03:13 10 mg ONCE ONE Administration Ondansetron HCl 4 mg 01/24/25 01:15 01/24/25 01:30 Ondansetron Hcl 4 Mg/2 Ml Vial IVPUSH 01/24/25 01:16 4 mg ONCE ONE Administration Medical Decision Making Medical Decision Making [facility] Narrative: Ultrasound IV Right sided 20 gauge IV was placed in right forearm under real time ultrasound guidance. Flushes and draw well. 44-year-old female presented hospital today for evaluation of possible pancreatitis after alcohol use. Abdominal lab work was performed on patient. She does have leukocytosis at 13.3 however she does have elevation in her hemoglobin and platelets compared to her baseline status. I suspect patient likely is dehydrated and heme concentrated. Patient's electrolytes are within normal limits. Patient's lactic acid is elevated 2.6. I do not think this is sepsis. This is due to dehydration for her nausea and vomiting for the past 3 days. Lipase level is normal. On review patient has CT imaging performed on 01/12. Shows small hiatal hernia and atrophic pancreas. It shows multiple calcification likely secondary to chronic pancreatitis. Given patient's recent CT imaging. I do not see the need to repeat the CT imaging. Her presentation is similar to previous visit to the ER. Patient was given IV Zofran IV Reglan for nausea control, multiple doses IV Dilaudid given for pain control. At this time patient has received 2 L IV fluid. We will plan to admit the patient hospital for pancreatitis. Differential Diagnosis Differential Diagnoses: The differential diagnosis associated with the presentation includes Alcoholic gastritis, pancreatitis, cholecystitis, colitis, enteritis Lab Data [facility] Lab Attestation statement: I reviewed the patient's lab results. 01/24/25 01:17 01/24/25 01:17 Labs: Lab Results 01/24/25 01/24/25 Range/Units 01:17 04:18 WBC 13.3 H (4.8-10.8) X10*3/uL RBC 4.16 L D (4.20-5.50) X10*6/uL Hgb 12.5 D (12.0-16.0) g/dl Hct 36.7 L D (37.0-47.0) % MCV 88.2 (80.0-98.0) fL MCH 30.0 (27.0-33.0) pg MCHC 34.1 (31.0-35.0) g/dl RDW 14.6 (11.0-16.0) % Plt Count 413 H D (160-400) X10*3/uL MPV 9.4 (9.4-12.3) fL Immature Gran % (Auto) 0.4 (0.0-0.4) % Neut % (Auto) 76.1 H (45-73) % Lymph % (Auto) 13.2 L (20-40) % [place] % (Auto) 8.9 (2-11) % Eos % (Auto) 1.1 (0-4) % Baso % (Auto) 0.3 (0-2) % Lymph # (Auto) 1.8 (1.2-4.9) X10*3/uL [place] # (Auto) 1.2 (0.1-1.2) X10*3/uL Eos # (Auto) 0.1 (0.0-0.4) X10*3/uL Baso # (Auto) 0.0 (0.0-0.2) X10*3/uL Abs Immat Gran (auto) 0.05 H (0.00-0.03) X10*3/uL Absolute Neuts (auto) 10.2 H (2.0-8.3) x10*3/uL Absolute Nucleated RBC 0.000 (0.0-0.012) X10*3/uL Nucleated RBC % (auto) 0.0 (0.0-0.2) /100WBC Sodium 137 (135-145) mmol/L Potassium 3.4 (3.3-5.1) mmol/L Chloride 94 L (96-108) mmol/L Carbon Dioxide 28 (22-29) mmol/L Anion Gap 18 (12-20) BUN < 3 L (9-16) mg/dL Creatinine 0.59 (0.5-1.4) mg/dL Estim Creat Clear Calc 127.9 Estimated GFR > 60 Random Glucose 138 H (60-115) mg/dL Lactic Acid 2.6 H* (0.5-2.0) mmol/L Lactic Acid F/U @ 2Hr 2.5 H* (0.5-2.0) mmol/L Calcium 8.7 D (8.4-10.2) mg/dL Total Bilirubin 1.2 H (0.0-1.0) mg/dL AST 110 H (5-31) U/L ALT 29 (0-31) U/L Alkaline Phosphatase 211 H (39-117) U/L Total Protein 6.9 (6.5-8.0) g/dL Albumin 3.8 (3.5-5.0) g/dL Lipase 6 L (8-78) U/L Critical Care Time Critical Care Time Critical Care Time: Yes Total Critical Care Time: 40 Attestation: Time is exclusive of separately billable procedures. Time includes: direct patient care, patient reassessment, coordination of patient care, interpretation of data (laboratory data, pulse oximetry, arterial blood gases and chest xrays), review of patient's medical records, medical consultation and documentation of patient care. Procedures excluded from critical care time: central intravenous line placement and electrocardiography. Discharge Plan Discharge Clinical Impression: Acute on chronic pancreatitis, Dehydration, severe Patient Disposition: Admitted As Inpatient Print Language: Welsh
[2025-01-24 03:21] LABS: Reflex Lactate? Lactic Acid Added
[2025-01-24 04:59] LABS: ~Lactic Acid-LAB USE ONLY 2.5 mmol/L (0.5-2.0)
[2025-01-24] MEDS: Lidocaine HCl Viscous 2 % 15 ML SOLUTION MUCOUS MEM (05:46)
[2025-01-24] MEDS: Magnesium Hydrox/Alum Hydrox 30 ML ORAL.SUSP PO (05:46)
--- NOTE | 2025-01-24 06:02 | PC.NURSE ---
pt ambulated to the bathroom with a steady gait
--- NOTE | 2025-01-24 06:02 | PC.NURSE ---
U/S 18g IV R forearm
[2025-01-24 06:25] LABS: Reflex Lactate? 2 Y
--- NOTE | 2025-01-24 08:12 | PM.IMHP ---
History of Present Illness Date of Service: 01/24/25 Attending physician on admission: Tracey Go Chief Complaint: nausea and vomiting This is a 44-year-old female with a history of alcohol use disorder, chronic pancreatitis who presents to the emergency department with abdominal pain. She reports 3 days of epigastric abdominal pain with associated nausea and vomiting. She denies any diarrhea, fever. She reports she is unable to take p.o. for the past several days. She does report drinking several twisted teas and 2 shots or more of fireball at least 4 nights per week. She does report compliance with her Cre[place] but has not followed up with a state inspector. She has multiple admissions for acute on chronic alcoholic pancreatitis, most recently was hospitalized from January 12 to January 17. In the emergency department no repeat CT scan was obtained as 1 was recently done on last admission. Lipase was low, LFTs elevated at baseline. Patient required multiple doses of IV narcotics and IV antiemetics, IV Pepcid, Maalox for symptoms. She continued to have persistent severe abdominal pain and we will be admitted for further management. Review of Systems Review of Systems: Yes all other systems are reviewed and are negative Constitutional: Constitutional: Denies chills and Denies fever(s) ENT: Denies dizziness Cardiovascular: Cardiovascular: Denies chest pain, Denies palpitations and Denies dyspnea Respiratory: Respiratory: Denies cough and Denies dyspnea Gastrointestinal: Gastrointestinal: Reports abdominal pain, Denies nausea and Denies vomiting Neurologic: Denies dizziness Endocrine: Endocrine: Denies palpitations [facility] Medical History Alcohol abuse Alcoholism Suicidal ideations Intentional overdose Chronic cough Chronic pancreatitis Cocaine use Alcohol abuse Obesity (BMI 30.0-34.9) Pancreatitis Back pain Alcohol use disorder, severe, dependence Gastritis Gastritis Endometriosis Constipation Anxiety Depression Bipolar disorder Suicidal behavior PTSD (post-traumatic stress disorder) Surgical History History of ankle surgery Social History Household Members: Spouse Housing: House Do you presently have visiting nurse or other home services: No Alcohol intake: current Alcohol intake frequency: 3 or more drinks per day Alcohol type: beer and hard liquor Comment: pt low fall risk Patient Tobacco Use Status: Former Tobacco user Tobacco use type: Cigarette Cigarette Packs Per Day: 0 Cigarettes Per Day: 0 Smoked in Last 30 Days: Yes e-Cigarette/Vaping Use: Never Used Second Hand Smoke Exposure: No Use of substances other than those prescribed or required for medical reasons: No Substance Use Type: Crack/Cocaine Advance Directives: Yes Advance Directives on File: Yes Advance Directives Date on File: 09/07/23 Patient : No service: No Sexual orientation: Straight/Heterosexual Meds Allergies Allergy/AdvReac Type Severity Reaction Status Date / Time ibuprofen AdvReac Stomach Verified 01/24/25 00:27 Upset morphine AdvReac Gastrointestinal Verified 01/24/25 00:27 Upset bees Allergy Severe Anaphylaxis Uncoded 01/24/25 00:27 Active Medications: Current Medications Acetaminophen (Acetaminophen 325 Mg Tablet) 650 mg PO Q6H PRN PRN Reason: Pain, Mild 1-3,fever,headache Calcium Carbonate (Calcium Carbonate 750 Mg Tab.Chew) 750 mg PO Q4H PRN PRN Reason: Heartburn Enoxaparin Sodium (Enoxaparin Sodium 40 Mg/0.4 Ml Syringe) 40 mg SUBCUT Q24H [facility]IZABETH Hydromorphone HCl (Hydromorphone Hcl 0.5 Mg/0.5 Ml Syringe) 0.5 mg IVPUSH Q4H PRN; Protocol PRN Reason: Pain, Severe (Pain Scale 7-10) Lactated Ringer's (Lr) 1,000 mls @ 125 mls/hr IVCONT .Q8H ELIZABETH Magnesium Hydroxide (Milk Of Magnesia 30 Ml Oral.Susp) 30 ml PO DAILY PRN PRN Reason: Constipation Melatonin (Melatonin 3 Mg Tablet) 6 mg PO BEDTIME PRN PRN Reason: Insomnia Metoclopramide HCl (Metoclopramide Hcl 10 Mg/2 Ml Vial) 5 mg IVPUSH Q6H PRN PRN Reason: Nausea and Vomiting Sodium Chloride (0.9 % Sodium Chloride Flush 3 Ml Syringe) 3 ml IVFLUSH QSHIFT [facility] Home Medications ?Medication ?Instructions ?Recorded ?Confirmed ?Last Taken ?Type aripiprazole 10 mg tablet 10 mg PO BEDTIME 05/21/21 01/24/25 01/23/25 History doxepin 50 mg capsule 50 mg PO BEDTIME 05/21/21 01/24/25 01/23/25 History gabapentin 600 mg tablet 600 mg PO TID 05/21/21 01/24/25 01/23/25 History lorazepam 1 mg tablet 1 mg PO TID Anxiety 05/21/21 01/24/25 01/23/25 History pantoprazole 40 mg tablet,delayed 40 mg PO DAILY@0630 05/21/21 01/24/25 01/23/25 History release bupropion HCl 300 mg 24 hr tablet, 300 mg PO DAILY 09/07/23 01/24/25 01/23/25 History extended release folic acid 1 mg tablet 1 mg PO DAILY 09/07/23 01/24/25 01/23/25 History lamotrigine 25 mg tablet 75 mg PO BEDTIME 09/07/23 01/24/25 01/23/25 History cuuxbi-[id number]-qmzycyu 1 cap PO TIDWM 08/23/24 01/24/25 01/23/25 History 36,000-114,000-180,000 unit capsule,delay rel (Creon) trazodone 150 mg tablet 150 mg PO BEDTIME 08/23/24 01/24/25 01/23/25 History albuterol sulfate 90 mcg/actuation 2 puff inhalation Q4H PRN 11/15/24 01/24/25 01/23/25 History aerosol inhaler (Ventolin HFA) Shortness Of Breath Or Wheezing melatonin 3 mg tablet 15 mg PO BEDTIME PRN Sleep 12/27/24 01/24/25 01/23/25 History thiamine HCl (vitamin B1) 100 mg 100 mg PO BID 12/27/24 01/24/25 01/23/25 History tablet multivitamin 1 tab PO DAILY 01/24/25 01/24/25 01/23/25 History Physical Exam Vital Signs and Narrative: Vital Signs: Last Vital Signs Temp 98.9 F 01/24/25 00:27 Pulse 92 01/24/25 06:40 Resp 16 01/24/25 06:40 BP 106/70 01/24/25 06:40 Pulse Ox 94 01/24/25 06:40 O2 Del Method Room Air 01/24/25 06:40 BMI result Body Mass Index 31.0 Const: General: cooperative, alert and awake Nutritional Appearance: average body habitus Orientation/consciousness: patient oriented x3 Resp: Effort & Inspection: normal respiratory effort, able to speak in complete sentences, no respiratory distress and no use of accessory muscles GI: Other: epigastric tenderness Inspection: No distended Palpation (GI): Soft to palpation and Tenderness to palpation present (GI) Neuro: General: patient oriented x3, moves all extremities and CN's II-XI intact bilaterally Results Labs 01/24/25 01:17 01/24/25 01:17 Labs: Laboratory Results - last 24 hr 01/24/25 01/24/25 01:17 04:18 MCV 88.2 MCH 30.0 MCHC 34.1 RDW 14.6 Plt Count 413 H D MPV 9.4 Immature Gran % (Auto) 0.4 Neut % (Auto) 76.1 H Lymph % (Auto) 13.2 L Callahan % (Auto) 8.9 Eos % (Auto) 1.1 Baso % (Auto) 0.3 Lymph # (Auto) 1.8 Callahan # (Auto) 1.2 Eos # (Auto) 0.1 Baso # (Auto) 0.0 Abs Immat Gran (auto) 0.05 H Absolute Neuts (auto) 10.2 H Absolute Nucleated RBC 0.000 Nucleated RBC % (auto) 0.0 Anion Gap 18 Estim Creat Clear Calc 127.9 Estimated GFR > 60 Random Glucose 138 H Lactic Acid 2.6 H* Lactic Acid F/U @ 2Hr 2.5 H* Calcium 8.7 D Total Bilirubin 1.2 H AST 110 H ALT 29 Alkaline Phosphatase 211 H Total Protein 6.9 Albumin 3.8 Lipase 6 L Assessment and Plan (1) Alcohol use disorder: Status: Acute (2) Chronic pancreatitis: Qualifiers: Pancreatitis type: alcohol induced Qualified Code(s): K86.0 - Alcohol-induced chronic pancreatitis Status: Acute (3) Alcoholic gastritis: Qualifiers: Chronicity: acute Gastritis bleeding: without bleeding Qualified Code(s): K29.20 - Alcoholic gastritis without bleeding Status: Acute Plan This is a 44-year-old female with a past medical history of polysubstance abuse, bipolar disorder, PTSD, alcohol use disorder, chronic abdominal pain, history of chronic pancreatitis who presented to the emergency department with abdominal pain and nausea/vomiting Acute on chronic alcoholic pancreatitis: Alcoholic Gastritis: IV PPI Pain control IVF NPO until pain begins to improve, then advance diet as tolerated Alcohol use disorder with high risk for withdrawal h/o etoh withdrawal seizures Monitor on CIWA protocol. Phenobarbital per protocol Thiamine, folate Acute lactic acidosis No evidence of infection Likely due to dehydration/liver dysfunction Leukocytosis likely due to volume depletion/hemoconcentation no evidence of infection at this time trend CBC Elevated LFTs Chronic transaminitis Due to underlying hepatic steatosis/alcohol use Bipolar disorder/PTSD Continue baseline medications Chronic pain gabapentin DVT prophylaxis: Lovenox Code status: Full code will likely require 2 midnight stay in the hospital for management of abdominal pain requiring IV analgesics and aggressive IV fluids to prevent and monitor for any acute decompensation. Also being closely monitored for alcohol withdrawal given known history of alcohol withdrawal seizure on phenobarbital per protocol Quality Stroke Does the patient have a stroke diagnosis?: No VTE Prior VTE?: No VTE Risk Level:: Medical - moderate - high VTE Device Contraindication: N/A - Device Ordered VTE Drug Contraindication: N/A - Med Ordered
--- NOTE | 2025-01-24 08:46 | PC.NURSE ---
Pt states she is aware of importance of Lovenox Pt states I am active and I don't want it I had huge bruises last time Aware that she is at increased risk for clots- refuses med at this time.
[2025-01-24 08:55] LABS: ~Lactic Acid-LAB USE ONLY 3.2 mmol/L (0.5-2.0)
--- NOTE | 2025-01-24 08:55 | PHA.MEDREC ---
Pharmacy Consult ? Medication Reconciliation Pharmacy has completed the medication reconciliation. Spoke with pt, good historian, knew all medications, doses, and frequency. Pt has not filled lamotrigine since 07/19/24, but is still on and had excess at home.
[2025-01-24] MEDS: Lactated Ringers 1,000 ML 125 ML IVCONT ×3 (08:58→23:50)
[2025-01-24] MEDS: PHENobarbitaL sodium 130 MG/ML IM ONCE 182 MG IM (09:25)
[2025-01-24] MEDS: PHENobarbitaL sodium 130 MG/ML VIAL IM Q3Hx2 137 MG IM ×2 (12:43→15:36)
[2025-01-24] MEDS: Lipase/Prot/Amylase 12/38/60K CAPSULE.DR 3 CAP PO ×2 (14:10→17:25)
--- NOTE | 2025-01-24 14:30 | MHC.CM.PN ---
pt is indepdendent lives w/parents has a ride home dc plan home n/s
--- NOTE | 2025-01-24 17:22 | HO.NURTONUR ---
Pt with Hx ETOH use and pancreatitis. Came in for suspected pancreatitis- Had N/V and pain. treated with anti nausea meds and pain meds including Gi cocktail, only some effectiveness-s Pt wants 1 mg Dilaudid Q4 nut at this time provider only wants .5 mg Q4, ot aware. CIWA 0 but put on Phenobarb protocol as precaution. No Hx of withdrawal seizures. Pt with 18g US IV right wrist- infusing LR as ordered. Pt wanted to try clr liqs this am but provoked pain so provider made her NPO at this time. Pt aware and agreeable. VSS Lactic 3.2 last draw which in increased. Provider aware. [ End ]
[2025-01-25] VITALS (8 sets, daily range): BP systolic 95–132; BP diastolic 50–72; PULSE 78–112; RESP 16–20; TEMP 36.1–36.9; O2SAT 92–100
[2025-01-25] MEDS: Lactated Ringers 1,000 ML 125 ML IVCONT ×3 (06:40→20:43)
[2025-01-25 07:24] LABS: Hematocrit 34.4 % (37.0-47.0); Hemoglobin 11.0 g/dl (12.0-16.0); Mean Corpuscular HGB Conc 32.0 g/dl (31.0-35.0); Mean Corpuscular Hemoglobin 30.0 pg (27.0-33.0); Mean Corpuscular Volume 93.7 fL (80.0-98.0); NRBC Abs Auto 0.000 X10*3/uL (0.0-0.012); NRBC Pct Auto 0.0 /100WBC (0.0-0.2); Platelet Count 253 X10*3/uL (160-400); Red Blood Count 3.67 X10*6/uL (4.20-5.50); White Blood Count 6.4 X10*3/uL (4.8-10.8)
[2025-01-25 07:53] LABS: Alanine Aminotransferase 25 U/L (0-31); Albumin Level 3.1 g/dL (3.5-5.0); Alkaline Phosphatase 148 U/L (39-117); Aspartate Amino Transferase 114 U/L (5-31); Blood Urea Nitrogen 4 mg/dL (9-16); Calcium 8.3 mg/dL (8.4-10.2); Creatinine Clr Calc Pharmacy 124.0; Estimated Glomerular Filt Rate > 60; Total Protein 5.5 g/dL (6.5-8.0)
[2025-01-25 08:09] LABS: Anion Gap 12 (12-20); Carbon Dioxide 32 mmol/L (22-29); Chloride 98 mmol/L (96-108); Potassium 3.6 mmol/L (3.3-5.1); Sodium 138 mmol/L (135-145)
[2025-01-25] MEDS: Lipase/Prot/Amylase 12/38/60K CAPSULE.DR 3 CAP PO ×3 (08:39→16:30)
[2025-01-25] MEDS: buPROPion HCl XL 300 MG TAB.ER.24H PO (08:40)
[2025-01-25 13:47] LABS: Cannabinoid Screen Urine Not Detected (Not Detect)
--- NOTE | 2025-01-25 16:28 | HO.PM.IMPN ---
Subjective Subjective Date of Service: 01/25/25 Interval History: Reports pain has improved overall, and epigastrium. Has an appetite. Currently on clear liquid diet. Review of Systems Review of Systems: Yes all other systems are reviewed and are negative Physical Exam Exam: Exam: General: A&O x3, oriented to time place person and situation, comfortable, no pain Cardiac: S1, S2 auscultated with no S3/4, no MRG. Well perfused. Respiratory: Normal breath sounds auscultated throughout all lung zones, without wheezing, rales. Normal rate. GI/ : Abdominal pain on palpation soft and deep in the epigastrium and left upper quadrant in particular, no distention, no hepatosplenomegaly. MSK: Normal ambulation without pain at bony prominences or musculature Neurological: Normal neurological examination on overview, without obvious CN II-XII abnormalities. Vital Signs: Vital Signs: Last Vital Signs Temp 98.5 F 01/25/25 16:00 Pulse 98 01/25/25 16:00 Resp 18 01/25/25 16:00 BP 113/67 01/25/25 16:00 Pulse Ox 97 01/25/25 16:00 O2 Del Method Room Air 01/25/25 16:00 BMI result Body Mass Index 33.2 Objective Data Active Medications Acetaminophen (Acetaminophen 325 Mg Tablet) 650 mg PO Q6H PRN PRN Reason: Pain, Mild 1-3,fever,headache Albuterol Sulfate (Albuterol Sulfate 90 Mcg 8 Gm Inhaler) 2 puff INHALE Q4H PRN PRN Reason: Shortness Of Breath Or Wheezing Lipase/Protease/Amylase (Lipase/Prot/Amylase 12/38/60k Capsule.) 3 cap PO TIDWM [facility] Last Admin: 01/25/25 11:30 Dose: 3 cap Documented By: RAMAN Aripiprazole (Aripiprazole 10 Mg Tablet) 10 mg PO BEDTIME [facility] Last Admin: 01/24/25 20:21 Dose: 10 mg Documented By: ALEXANDRA Bupropion HCl (Bupropion Hcl Xl 300 Mg Tab.Er.24h) 300 mg PO DAILY [facility] Last Admin: 01/25/25 08:40 Dose: 300 mg Documented By: RAMAN Calcium Carbonate (Calcium Carbonate 750 Mg Tab.Chew) 750 mg PO Q4H PRN PRN Reason: Heartburn Doxepin HCl (Doxepin Hcl 25 Mg Capsule) 50 mg PO BEDTIME [facility] Last Admin: 01/24/25 20:21 Dose: 50 mg Documented By: ALEXANDRA Enoxaparin Sodium (Enoxaparin Sodium 40 Mg/0.4 Ml Syringe) 40 mg SUBCUT Q24H [facility] Last Admin: 01/25/25 08:45 Dose: Not Given Documented By: RAMAN Non-Admin Reason: Patient Refused Famotidine (Famotidine/Pf 20 Mg/2 Ml Vial) 20 mg IVPUSH DAILY [facility] Last Admin: 01/24/25 12:41 Dose: 20 mg Documented By: JOAQUIN Folic Acid (Folic Acid 1 Mg Tablet) 1 mg PO DAILY [facility] Last Admin: 01/25/25 08:40 Dose: 1 mg Documented By: RAMAN Gabapentin (Gabapentin 600 Mg Tablet) 600 mg PO TID [facility] Last Admin: 01/25/25 15:33 Dose: 600 mg Documented By: RAMAN Hydromorphone HCl (Hydromorphone Hcl 0.5 Mg/0.5 Ml Syringe) 1 mg IVPUSH Q3H PRN; Protocol PRN Reason: Pain, Severe (Pain Scale 7-10) Last Admin: 01/25/25 12:57 Dose: 1 mg Documented By: RAMAN Lactated Ringer's (Lr) 1,000 mls @ 125 mls/hr IVCONT .Q8H [facility] Last Admin: 01/25/25 12:57 Dose: 125 mls/hr Documented By: RAMAN Lamotrigine (Lamotrigine 25 Mg Tablet) 75 mg PO BEDTIME [facility] Last Admin: 01/24/25 20:21 Dose: 75 mg Documented By: ALEXANDRA Lorazepam (Lorazepam 1 Mg Tablet) 1 mg PO TID [facility] Last Admin: 01/25/25 15:33 Dose: 1 mg Documented By: RAMAN Magnesium Hydroxide (Milk Of Magnesia 30 Ml Oral.Susp) 30 ml PO DAILY PRN PRN Reason: Constipation Melatonin (Melatonin 3 Mg Tablet) 6 mg PO BEDTIME PRN PRN Reason: Insomnia Metoclopramide HCl (Metoclopramide Hcl 10 Mg/2 Ml Vial) 5 mg IVPUSH Q6H PRN PRN Reason: Nausea and Vomiting Multivitamins/Vitamin C (Multivitamin Tablet) 1 tab PO DAILY [facility] Last Admin: 01/25/25 08:40 Dose: 1 tab Documented By: RAMAN Pharmacy Consult (Consult Rx Etoh Phenob Im/Po) 1 each MISCELLANE ONCE PRN; Protocol PRN Reason: Consult order Phenobarbital (Phenobarbital 15 Mg Tablet) 45 mg PO BID [facility] Stop: 01/26/25 09:01 Last Admin: 01/25/25 08:40 Dose: 45 mg Documented By: RAMAN Phenobarbital (Phenobarbital 15 Mg Tablet) 15 mg PO BID [facility] Stop: 01/28/25 09:01 Phenobarbital (Phenobarbital 15 Mg Tablet) 15 mg PO DAILY [facility] Stop: 01/30/25 09:01 Prazosin HCl (Prazosin Hcl 5 Mg Capsule) 5 mg PO BEDTIME [facility]; Protocol Last Admin: 01/24/25 20:21 Dose: 5 mg Documented By: ALEXANDRA Sodium Chloride (0.9 % Sodium Chloride Flush 3 Ml Syringe) 3 ml IVFLUSH QSHIFT [facility] Last Admin: 01/25/25 15:34 Dose: Not Given Documented By: RAMAN Non-Admin Reason: Previously Administered Thiamine HCl (Thiamine Hcl 100 Mg Tablet) 100 mg PO DAILY [facility] Last Admin: 01/25/25 08:40 Dose: 100 mg Documented By: RAMAN Trazodone HCl (Trazodone Hcl 50 Mg Tablet) 150 mg PO BEDTIME [facility] Last Admin: 01/24/25 20:21 Dose: 150 mg Documented By: ALEXANDRA Labs 01/25/25 06:24 01/25/25 06:24 Labs: Laboratory Results - last 24 hr 01/25/25 01/25/25 06:24 13:00 MCV 93.7 D MCH 30.0 MCHC 32.0 RDW 14.5 Plt Count 253 D MPV 10.0 Absolute Nucleated RBC 0.000 Nucleated RBC % (auto) 0.0 Anion Gap 12 Estim Creat Clear Calc 124.0 Estimated GFR > 60 Random Glucose 93 Calcium 8.3 L Total Bilirubin 1.3 H Direct Bilirubin 0.8 H AST 114 H ALT 25 Alkaline Phosphatase 148 H Total Protein 5.5 L Albumin 3.1 L Urine Opiates Screen POSITIVE H Ur Buprenorphine Scrn Not Detected Ur Oxycodone Screen Not Detected Urine Methadone Screen Not Detected Urine Fentanyl Screen Not Detected Ur Barbiturates Screen POSITIVE H Ur Phencyclidine Scrn Not Detected Ur Amphetamines Screen Not Detected U Benzodiazepines Scrn Not Detected Urine Cocaine Screen POSITIVE H U Marijuana (THC) Screen Not Detected Microbiology Microbiology Results: Microbiology 01/24/25 02:32 Blood Culture - Preliminary Blood - Venous No growth after 24 hours. 01/24/25 01:17 Blood Culture - Preliminary Blood - Venous No growth after 24 hours. Assessment and Plan (1) Cocaine use: Status: Acute (2) Alcohol use disorder: Status: Acute (3) Alcoholic gastritis: Status: Acute (4) Chronic pancreatitis: Status: Acute (5) Pancreatitis: Status: Acute (6) Acute on chronic pancreatitis: Status: Acute (7) Elevated LFTs: Status: Acute (8) Acidosis, lactic: Status: Acute (9) Dehydration, severe: Status: Acute (10) Alcoholic hepatitis: Status: Acute Plan 44-year-old female with a past medical history of polysubstance abuse, bipolar disorder, PTSD, alcohol use disorder, chronic abdominal pain, history of chronic pancreatitis who presented to the emergency department with abdominal pain and nausea/vomiting, admitted for acute interstitial pancreatitis without necrosis or infection, 2/2 alcohol abuse, with superimposed alcoholic hepatitis. Acute on chronic alcoholic pancreatitis: Alcoholic Gastritis: IV PPI Pain control IVF Clear liquid diet Alcohol use disorder with high risk for withdrawal h/o etoh withdrawal seizures Monitor on CIWA protocol. Phenobarbital per protocol Thiamine, folate Acute lactic acidosis No evidence of infection Likely due to dehydration/liver dysfunction Leukocytosis likely due to volume depletion/hemoconcentation no evidence of infection at this time trend CBC Elevated LFTs Chronic transaminitis Due to underlying hepatic steatosis/alcohol use Bipolar disorder/PTSD Continue baseline medications Chronic pain gabapentin [employer] - VTE: Enoxaparin - CODE STATUS: Full code - DIET: Clear liquid diet Total time managing care of this patient today: 45 minutes. Quality Stroke Does the patient have a stroke diagnosis?: No VTE Prior VTE?: No VTE Risk Level:: Medical - moderate - high VTE Device Contraindication: N/A - Device Ordered VTE Drug Contraindication: N/A - Med Ordered
--- NOTE | 2025-01-25 17:27 | MHC.RECOVRN ---
TW met with the patient in to discuss current alcohol use and concerns related to increased risk of alcohol use and related problems after consult placed to Addiction Medicine. Pt is known to the ACS team and has 11 admissions in 2024, mostly in relation to acute on chronic pancreatitis due to alcohol consumption.? On approach, pt was sitting in bed, drinking juice, and watching TV. She reports ongoing abdominal pain but states its starting to feel better.? Pt denies alcohol use prior to admission, reporting to TW her last drink was 01/13/25, however, ED report reflects the pt stated drinking 3 days prior to admission. Pt reports she feels she was able to maintain abstinence from 01/13/25 until 01/24/25 with the help of her grandmother. S ?Pt does not appear to be forthcoming about her alcohol use and attempts to minimize ongoing health risk of continued use. She often changes the conversation to her boyfriend, reiterating numerous times that ?he is a good elaine and wants me to get help?. This also contradicts previous statements in which she claimed? her boyfriend was ?bad news? and ?always stops at the liquor store, even when I don?t want to?? When asked if she would like placement in a program for recovery she initially says she doesn't need it ?since I haven?t drank in about 2 weeks? and later reports she will check herself into ?rehab? after the busy season, the end of February. Pt previously reported her and her boyfriend are in the [place] and reports this time of year is really busy.? Pt made several conflicting statements, at one time calling herself an addict and then reporting she hasn?t used in years. When TW mentions there was no tox screen noted in her chart she replied, ?they just did one, It?s going to come up positive for cocaine. I didn?t do a lot. A friend came over and offered it to me?. Pt mentions she previously used to drink ?a gallon of vodka to my head? but now I?m down to 1 twisted tea and 4-5 fireball shots at night ?which is a huge improvement?, again, contradicting her previous report of abstaining from alcohol since 01/13/25. TW educated that although that is a large improvement, any alcohol use with her current condition is not recommended. Pt replied, ?I know, that?s why I?m not?? Discussed how alcohol use has impacted health, including negative impact on mental health and overall physical well being.? Discussed risk and reduction strategies including abstaining from alcohol due to increased health risks and drinking below the recommended limit if she returns to use? ? Pt declines intervention, JOSE RAMON, or outpatient appt for treatment related to AUD at this time. i'm going to call [facility] when the season is over Pt was provided with TW?s contact information if questions or concerns arise which she denies at this time. TW available as needed for further support and resources related to SONIA.
[2025-01-26] VITALS (9 sets, daily range): BP systolic 98–138; BP diastolic 56–73; PULSE 78–110; RESP 16–18; TEMP 36.1–37; O2SAT 94–98
[2025-01-26] MEDS: Lactated Ringers 1,000 ML 125 ML IVCONT (04:33)
--- NOTE | 2025-01-26 05:04 | PC.NURSE ---
Patient with low SBP in 90's. awoken at 0200 for BP check. Patient alert, sleepy, (possibly sedated), slight slurred speech, unsteady ambulating to bathroom. Patient mistakenly asked for pizza medicine , then clarified pain medicine . Asked for diludid and ativan together while I was putting patient back to bed, she was snoring before I finished covering with blankets or could advisse her against it due to low BP. Vitals taken again approx 0330 and she has not asked for pain med again as of yet. Sleeping currently.
[2025-01-26] MEDS: 0.9 % Sodium Chloride Flush 3 ML SYRINGE IVFLUSH ×3 (08:49→20:46)
[2025-01-26] MEDS: Lipase/Prot/Amylase 12/38/60K CAPSULE.DR 3 CAP PO ×3 (08:51→16:42)
[2025-01-26] MEDS: buPROPion HCl XL 300 MG TAB.ER.24H PO (08:51)
[2025-01-26] MEDS: Milk of Magnesia 30 ML ORAL.SUSP PO (08:57)
[2025-01-26] MEDS: oxyCODONE HCl Immed Release 5 MG TABLET PO ×2 (10:51→20:42)
--- NOTE | 2025-01-26 19:55 | HO.PM.IMPN ---
Subjective Subjective Date of Service: 01/26/25 Physical Exam Vital Signs: Vital Signs: Last Vital Signs Temp 98.2 F 01/26/25 15:34 Pulse 78 01/26/25 15:34 Resp 18 01/26/25 15:34 BP 116/69 01/26/25 15:34 Pulse Ox 97 01/26/25 15:34 O2 Del Method Room Air 01/26/25 15:34 O2 Flow Rate 2 01/26/25 11:53 BMI result Body Mass Index 33.2 Objective Data Active Medications Acetaminophen (Acetaminophen 325 Mg Tablet) 650 mg PO Q6H PRN PRN Reason: Pain, Mild 1-3,fever,headache Albuterol Sulfate (Albuterol Sulfate 90 Mcg 8 Gm Inhaler) 2 puff INHALE Q4H PRN PRN Reason: Shortness Of Breath Or Wheezing Lipase/Protease/Amylase (Lipase/Prot/Amylase 12/38/60k Capsule.) 3 cap PO TIDWM [facility] Last Admin: 01/26/25 16:42 Dose: 3 cap Documented By: SHASTA Aripiprazole (Aripiprazole 10 Mg Tablet) 10 mg PO BEDTIME [facility] Last Admin: 01/25/25 22:00 Dose: 10 mg Documented By: GARFIELD Bupropion HCl (Bupropion Hcl Xl 300 Mg Tab.Er.24h) 300 mg PO DAILY [facility] Last Admin: 01/26/25 08:51 Dose: 300 mg Documented By: SHASTA Calcium Carbonate (Calcium Carbonate 750 Mg Tab.Chew) 750 mg PO Q4H PRN PRN Reason: Heartburn Doxepin HCl (Doxepin Hcl 25 Mg Capsule) 50 mg PO BEDTIME [facility] Last Admin: 01/25/25 22:00 Dose: 50 mg Documented By: GARFIELD Enoxaparin Sodium (Enoxaparin Sodium 40 Mg/0.4 Ml Syringe) 40 mg SUBCUT Q24H [facility] Last Admin: 01/26/25 08:51 Dose: Not Given Documented By: SHASTA Non-Admin Reason: Patient Refused Famotidine (Famotidine/Pf 20 Mg/2 Ml Vial) 20 mg IVPUSH DAILY [facility] Last Admin: 01/26/25 08:48 Dose: 20 mg Documented By: SHASTA Folic Acid (Folic Acid 1 Mg Tablet) 1 mg PO DAILY [facility] Last Admin: 01/26/25 08:50 Dose: 1 mg Documented By: SHASTA Gabapentin (Gabapentin 600 Mg Tablet) 600 mg PO TID [facility] Last Admin: 01/26/25 15:01 Dose: 600 mg Documented By: SHASTA Hydromorphone HCl (Hydromorphone Hcl 2 Mg Tablet) 1 mg PO Q4H PRN PRN Reason: Pain, Severe (Pain Scale 7-10) Last Admin: 01/26/25 18:55 Dose: 1 mg Documented By: SHASTA Lamotrigine (Lamotrigine 25 Mg Tablet) 75 mg PO BEDTIME [facility] Last Admin: 01/25/25 21:59 Dose: 75 mg Documented By: GARFIELD Lorazepam (Lorazepam 1 Mg Tablet) 1 mg PO TID [facility] Last Admin: 01/26/25 15:01 Dose: 1 mg Documented By: SHASTA Magnesium Hydroxide (Milk Of Magnesia 30 Ml Oral.Susp) 30 ml PO DAILY PRN PRN Reason: Constipation Last Admin: 01/26/25 08:57 Dose: 30 ml Documented By: SHASTA Melatonin (Melatonin 3 Mg Tablet) 6 mg PO BEDTIME PRN PRN Reason: Insomnia Metoclopramide HCl (Metoclopramide Hcl 10 Mg/2 Ml Vial) 5 mg IVPUSH Q6H PRN PRN Reason: Nausea and Vomiting Multivitamins/Vitamin C (Multivitamin Tablet) 1 tab PO DAILY [facility] Last Admin: 01/26/25 08:50 Dose: 1 tab Documented By: SHASTA Oxycodone HCl (Oxycodone Hcl Immed Release 5 Mg Tablet) 5 mg PO Q4H PRN PRN Reason: Pain, Moderate(Pain Scale 4-6) Last Admin: 01/26/25 10:51 Dose: 5 mg Documented By: SHASTA Pharmacy Consult (Consult Rx Etoh Phenob Im/Po) 1 each MISCELLANE ONCE PRN; Protocol PRN Reason: Consult order Phenobarbital (Phenobarbital 15 Mg Tablet) 15 mg PO BID [facility] Stop: 01/28/25 09:01 Phenobarbital (Phenobarbital 15 Mg Tablet) 15 mg PO DAILY [facility] Stop: 01/30/25 09:01 Prazosin HCl (Prazosin Hcl 5 Mg Capsule) 5 mg PO BEDTIME [facility]; Protocol Last Admin: 01/25/25 21:59 Dose: 5 mg Documented By: GARFIELD Sodium Chloride (0.9 % Sodium Chloride Flush 3 Ml Syringe) 3 ml IVFLUSH QSHIFT [facility] Last Admin: 01/26/25 15:01 Dose: 3 ml Documented By: SHASTA Thiamine HCl (Thiamine Hcl 100 Mg Tablet) 100 mg PO DAILY [facility] Last Admin: 01/26/25 08:51 Dose: 100 mg Documented By: SHASTA Trazodone HCl (Trazodone Hcl 50 Mg Tablet) 150 mg PO BEDTIME [facility] Last Admin: 01/25/25 22:00 Dose: 150 mg Documented By: GARFIELD Labs 01/25/25 06:24 01/25/25 06:24 Microbiology Microbiology Results: Microbiology 01/24/25 02:32 Blood Culture - Preliminary Blood - Venous No growth after 48 hours. 01/24/25 01:17 Blood Culture - Preliminary Blood - Venous No growth after 48 hours. Assessment and Plan (1) Alcoholic gastritis: Status: Acute Plan 44-year-old female with a past medical history of polysubstance abuse, bipolar disorder, PTSD, alcohol use disorder, chronic abdominal pain, history of chronic pancreatitis who presented to the emergency department with abdominal pain and nausea/vomiting, admitted for acute interstitial pancreatitis without necrosis or infection, 2/2 alcohol abuse, with superimposed alcoholic hepatitis. Acute alcoholic gastritis with question of acute on chronic alcoholic pancreatitis: IV PPI Pain control IVF Has been tolerating full liquid diet, will advance to regular diet Alcohol use disorder with high risk for withdrawal h/o etoh withdrawal seizures Monitor on CIWA protocol. Phenobarbital per protocol Thiamine, folate Acute lactic acidosis No evidence of infection Likely due to dehydration/liver dysfunction Leukocytosis, resolved likely due to volume depletion/hemoconcentation no evidence of infection at this time Elevated LFTs Chronic transaminitis Due to underlying hepatic steatosis/alcohol use Bipolar disorder/PTSD Continue baseline medications Chronic pain gabapentin Pt requires continued hospitalization due to continued pain management while advancing diet. Quality Stroke Does the patient have a stroke diagnosis?: No VTE Prior VTE?: No VTE Risk Level:: Medical - moderate - high VTE Device Contraindication: N/A - Device Ordered VTE Drug Contraindication: N/A - Med Ordered
[2025-01-26 21:40] LABS: Glucose, Whole Blood 166 mg/dL (60-115)
[2025-01-27 03:32] VITALS: BP 117/71; PULSE 88; RESP 18; TEMP 36.2; O2SAT 92
[2025-01-27] MEDS: oxyCODONE HCl Immed Release 5 MG TABLET PO ×3 (06:14→21:31)
[2025-01-27 08:00] VITALS: BP 101/63; PULSE 98; RESP 18; TEMP 37; O2SAT 93
[2025-01-27] MEDS: Lipase/Prot/Amylase 12/38/60K CAPSULE.DR 3 CAP PO ×3 (08:23→17:31)
[2025-01-27] MEDS: buPROPion HCl XL 300 MG TAB.ER.24H PO (08:23)
[2025-01-27] MEDS: 0.9 % Sodium Chloride Flush 3 ML SYRINGE IVFLUSH ×3 (08:24→21:36)
[2025-01-27 11:51] VITALS: BP 111/65; PULSE 99; RESP 18; TEMP 36.9; O2SAT 94
[2025-01-27 16:00] VITALS: BP 124/73; PULSE 61; RESP 18; TEMP 36.8; O2SAT 98
--- NOTE | 2025-01-27 18:26 | HO.PM.IMPN ---
Subjective Subjective Date of Service: 01/27/25 Interval History: Pt has been able to tolerate solid diet No nausea, vomiting Reports continued abdominal pain radiating to back poorly controlled with p.o. meds Pt does not want to go home due to continued abdominal pain Physical abd exam benign Review of Systems Review of Systems: Yes all other systems are reviewed and are negative Physical Exam Exam: Exam: General: AOx3, no acute distress Resp: CTA bilaterally CVS: S1, S2, RRR GI: +BS, NT, no distention Skin: Warm, dry Neuro: Cranial nerves II-XII grossly intact bilaterally. Motor grossly intact bilaterally Extremities: No edema Psych: Emotionally labile Vital Signs: Vital Signs: Last Vital Signs Temp 98.3 F 01/27/25 16:00 Pulse 61 01/27/25 16:00 Resp 18 01/27/25 16:00 BP 124/73 01/27/25 16:00 Pulse Ox 98 01/27/25 16:00 O2 Del Method Room Air 01/27/25 16:00 O2 Flow Rate 2 01/26/25 11:53 BMI result Body Mass Index 33.2 Objective Data Active Medications Acetaminophen (Acetaminophen 325 Mg Tablet) 650 mg PO Q6H PRN PRN Reason: Pain, Mild 1-3,fever,headache Albuterol Sulfate (Albuterol Sulfate 90 Mcg 8 Gm Inhaler) 2 puff INHALE Q4H PRN PRN Reason: Shortness Of Breath Or Wheezing Lipase/Protease/Amylase (Lipase/Prot/Amylase 12/38/60k Capsule.) 3 cap PO TIDWM [facility] Last Admin: 01/27/25 17:31 Dose: 3 cap Documented By: UGO Aripiprazole (Aripiprazole 10 Mg Tablet) 10 mg PO BEDTIME [facility] Last Admin: 01/26/25 20:42 Dose: 10 mg Documented By: ARMANDO Bupropion HCl (Bupropion Hcl Xl 300 Mg Tab.Er.24h) 300 mg PO DAILY [facility] Last Admin: 01/27/25 08:23 Dose: 300 mg Documented By: UGO Calcium Carbonate (Calcium Carbonate 750 Mg Tab.Chew) 750 mg PO Q4H PRN PRN Reason: Heartburn Doxepin HCl (Doxepin Hcl 25 Mg Capsule) 50 mg PO BEDTIME [facility] Last Admin: 01/26/25 20:42 Dose: 50 mg Documented By: ARMANDO Enoxaparin Sodium (Enoxaparin Sodium 40 Mg/0.4 Ml Syringe) 40 mg SUBCUT Q24H [facility] Last Admin: 01/27/25 08:24 Dose: Not Given Documented By: UGO Non-Admin Reason: Patient Refused Famotidine (Famotidine/Pf 20 Mg/2 Ml Vial) 20 mg IVPUSH DAILY [facility] Last Admin: 01/27/25 08:23 Dose: 20 mg Documented By: UGO Folic Acid (Folic Acid 1 Mg Tablet) 1 mg PO DAILY [facility] Last Admin: 01/27/25 08:23 Dose: 1 mg Documented By: UGO Gabapentin (Gabapentin 600 Mg Tablet) 600 mg PO TID [facility] Last Admin: 01/27/25 15:46 Dose: 600 mg Documented By: UGO Hydromorphone HCl (Hydromorphone Hcl 2 Mg Tablet) 1 mg PO Q4H PRN PRN Reason: Pain, Severe (Pain Scale 7-10) Last Admin: 01/27/25 14:00 Dose: 1 mg Documented By: UGO Lamotrigine (Lamotrigine 25 Mg Tablet) 75 mg PO BEDTIME [facility] Last Admin: 01/26/25 20:42 Dose: 75 mg Documented By: ARMANDO Lorazepam (Lorazepam 1 Mg Tablet) 1 mg PO TID [facility] Last Admin: 01/27/25 15:46 Dose: 1 mg Documented By: UGO Magnesium Hydroxide (Milk Of Magnesia 30 Ml Oral.Susp) 30 ml PO DAILY PRN PRN Reason: Constipation Last Admin: 01/26/25 08:57 Dose: 30 ml Documented By: SHASTA Melatonin (Melatonin 3 Mg Tablet) 6 mg PO BEDTIME PRN PRN Reason: Insomnia Metoclopramide HCl (Metoclopramide Hcl 10 Mg/2 Ml Vial) 5 mg IVPUSH Q6H PRN PRN Reason: Nausea and Vomiting Multivitamins/Vitamin C (Multivitamin Tablet) 1 tab PO DAILY [facility] Last Admin: 01/27/25 08:23 Dose: 1 tab Documented By: UGO Oxycodone HCl (Oxycodone Hcl Immed Release 5 Mg Tablet) 5 mg PO Q4H PRN PRN Reason: Pain, Moderate(Pain Scale 4-6) Last Admin: 01/27/25 11:08 Dose: 5 mg Documented By: UGO Pharmacy Consult (Consult Rx Etoh Phenob Im/Po) 1 each MISCELLANE ONCE PRN; Protocol PRN Reason: Consult order Phenobarbital (Phenobarbital 15 Mg Tablet) 15 mg PO BID [facility] Stop: 01/28/25 09:01 Last Admin: 01/27/25 08:23 Dose: 15 mg Documented By: UGO Phenobarbital (Phenobarbital 15 Mg Tablet) 15 mg PO DAILY [facility] Stop: 01/30/25 09:01 Prazosin HCl (Prazosin Hcl 5 Mg Capsule) 5 mg PO BEDTIME [facility]; Protocol Last Admin: 01/26/25 20:43 Dose: 5 mg Documented By: ARMANDO Sodium Chloride (0.9 % Sodium Chloride Flush 3 Ml Syringe) 3 ml IVFLUSH QSHIFT [facility] Last Admin: 01/27/25 17:28 Dose: 3 ml Documented By: UGO Thiamine HCl (Thiamine Hcl 100 Mg Tablet) 100 mg PO DAILY [facility] Last Admin: 01/27/25 08:23 Dose: 100 mg Documented By: UGO Trazodone HCl (Trazodone Hcl 50 Mg Tablet) 150 mg PO BEDTIME [facility] Last Admin: 01/26/25 20:42 Dose: 150 mg Documented By: ARMANDO Labs 01/25/25 06:24 01/25/25 06:24 Labs: Laboratory Results - last 24 hr 01/26/25 21:28 POC Glucose 166 H Assessment and Plan (1) Alcoholic gastritis: Status: Acute Plan 44-year-old female with a past medical history of polysubstance abuse, bipolar disorder, PTSD, alcohol use disorder, chronic abdominal pain, history of chronic pancreatitis who presented to the emergency department with abdominal pain and nausea/vomiting, admitted for acute interstitial pancreatitis without necrosis or infection, 2/2 alcohol abuse, with superimposed alcoholic hepatitis. Acute alcoholic gastritis with question of acute on chronic alcoholic pancreatitis: Treated with IV PPI, switch to po Pain control; avoid IV opioids if possible Has been tolerating full regular diet Alcohol use disorder with high risk for withdrawal h/o etoh withdrawal seizures Monitor on CIWA protocol. Phenobarbital per protocol Thiamine, folate Acute lactic acidosis No evidence of infection Likely due to dehydration/liver dysfunction Leukocytosis, resolved likely due to volume depletion/hemoconcentation no evidence of infection at this time Elevated LFTs Chronic transaminitis Due to underlying hepatic steatosis/alcohol use Bipolar disorder/PTSD Continue baseline medications Chronic pain gabapentin Pt requires continued hospitalization due to continued pain management while advancing diet. Quality Stroke Does the patient have a stroke diagnosis?: No VTE Prior VTE?: No VTE Risk Level:: Medical - moderate - high VTE Device Contraindication: N/A - Device Ordered VTE Drug Contraindication: N/A - Med Ordered
[2025-01-27 19:41] VITALS: BP 105/60; PULSE 95; RESP 16; TEMP 36.4; O2SAT 95
[2025-01-27 23:53] VITALS: BP 115/71; PULSE 98; RESP 16; TEMP 36.8; O2SAT 96
[2025-01-28] MEDS: oxyCODONE HCl Immed Release 5 MG TABLET PO ×3 (02:58→12:33)
[2025-01-28 03:45] VITALS: BP 121/69; PULSE 109; RESP 16; TEMP 36.7; O2SAT 97
--- NOTE | 2025-01-28 05:56 | PC.NURSE ---
pt called the [facility] c/o pain, I informed pt that her dilaudid is discontinued and I offered tylenol, pt stated she is allergic to tylenol.
[2025-01-28 08:00] VITALS: BP 113/68; PULSE 95; RESP 18; TEMP 36.3; O2SAT 95
[2025-01-28] MEDS: Lipase/Prot/Amylase 12/38/60K CAPSULE.DR 3 CAP PO ×2 (08:11→12:09)
[2025-01-28] MEDS: buPROPion HCl XL 300 MG TAB.ER.24H PO (08:12)
--- NOTE | 2025-01-28 11:15 | MHC.CM.PN ---
Pt. has been medically cleared to [place], she will go home via private transport, plan is self care.
[2025-01-28 12:00] VITALS: BP 132/77; PULSE 94; RESP 18; TEMP 36.2; O2SAT 99
--- NOTE | 2025-01-28 12:49 | PM.DS ---
DS: Providers Provider Date of Service: 01/28/25 Date of admission: 01/24/25 06:29 Date of discharge: 01/28/25 Primary care physician: Renae Raya MD Consults: 01/24/25 08:38 Addiction Medicine Provider Routine Consulting Provider: Addiction Covering Reason for consultation: etoh Has provider been notified: No DS: Diagnosis Discharge Diagnosis (1) Alcoholic gastritis: Status: Acute DS: Summary Hospital Course Hospital Course: From admission HPI: Date of Service: 01/24/25 Attending physician on admission: Tracey Go Chief Complaint: nausea and vomiting This is a 44-year-old female with a history of alcohol use disorder, chronic pancreatitis who presents to the emergency department with abdominal pain. She reports 3 days of epigastric abdominal pain with associated nausea and vomiting. She denies any diarrhea, fever. She reports she is unable to take p.o. for the past several days. She does report drinking several twisted teas and 2 shots or more of fireball at least 4 nights per week. She does report compliance with her Creon but has not followed up with a peripatologist. She has multiple admissions for acute on chronic alcoholic pancreatitis, most recently was hospitalized from January 12 to January 17. In the emergency department no repeat CT scan was obtained as 1 was recently done on last admission. Lipase was low, LFTs elevated at baseline. Patient required multiple doses of IV narcotics and IV antiemetics, IV Pepcid, Maalox for symptoms. She continued to have persistent severe abdominal pain and we will be admitted for further management. Hospital course Pt was admitted to the hospital for intractable nausea, vomiting, and abdominal pain in the setting of alcoholic gastritis. Patient's diet was slowly advanced at time of discharge she is tolerating a full solid diet. Pt initially treated with Protonix IV; should resume home pantoprazole 40 mg daily upon discharge. Pain was initially controlled with IV Dilaudid that was transitioned to p.o. medications. This transition was slow, and pt continually requested IV Dilaudid throughout stay, even though physical exam was benign and pt was tolerating both diet and ambulating around the room without difficulties. Pt was also treated with empiric phenobarb protocol for possible withdrawal giving her hx previous withdrawal and continued alcohol use. No indication of withdrawal noted. Pt declined to see Addiction medicine. Pt will be discharged on short course of pain medication as well as referral to pain Clinic for management of chronic lower back pain. Pt is strongly encouraged to abstain from alcohol or any other illicit substance use. She should continue all of her other home medications. Time Attestation Discharge Coordination Time (in mins): 38 Quality: Safe Use of Opioids Does Pt have an Active Cancer Diagnosis on the Problem List?: No Quality: Stroke Does the patient have a stroke diagnosis?: No Physical Exam Exam: Exam: General: AOx3, no acute distress Resp: CTA bilaterally CVS: S1, S2, RRR GI: +BS, NT, no distention Back: Nontender; pt ambulating without difficulty Skin: Warm, dry Neuro: Cranial nerves II-XII grossly intact bilaterally. Motor grossly intact bilaterally Extremities: No edema Psych: Appropriate affect Vital Signs: Vital Signs: Last Vital Signs Temp 97.1 F 01/28/25 12:00 Pulse 94 01/28/25 12:00 Resp 18 01/28/25 12:00 BP 132/77 01/28/25 12:00 Pulse Ox 99 01/28/25 12:00 O2 Del Method Room Air 01/28/25 12:00 O2 Flow Rate 2 01/26/25 11:53 BMI result Body Mass Index 33.2 DS: Data Data Completed and Pending Completed studies during hospitalization [Text1]: Procedures Detoxification Services for Substance Abuse Treatment (11/15/24) Labs on day of discharge: Preliminary micro results at discharge 01/24/25 02:32 Blood Culture - Preliminary Blood - Venous No growth after 48 hours. 01/24/25 01:17 Blood Culture - Preliminary Blood - Venous No growth after 48 hours. Discharge Plan Discharge Anticipated Discharge Date/Time: 01/28/25 11:01 Patient Disposition: Home, Self-Care Discharge Diagnosis: Acute alcoholic gastritis Referrals: Renae Raya MD [Primary Care Provider, Pediatrics] - 1 Week Discharge Medications: New hydromorphone [Dilaudid] 2 mg tablet 2 mg PO Q8H PRN (Reason: pain, severe) Qty: 9 0RF Rx Instructions: Partial Fill upon patient request. Take one tablet up to three times a day for severe pain Continued prazosin 5 mg Capsule 5 mg PO BEDTIME 30 Days Qty: 30 0RF doxepin 50 mg capsule 50 mg PO BEDTIME gabapentin 600 mg tablet 600 mg PO TID aripiprazole 10 mg tablet 10 mg PO BEDTIME lorazepam 1 mg tablet 1 mg PO TID pantoprazole 40 mg Tablet,Delayed Release (Dr/Ec) 40 mg PO DAILY@0630 trazodone 150 mg tablet 150 mg PO BEDTIME Creon 36,000-114,000- 180,000 unit capsule,delayed release(DR/EC) 1 cap PO TIDWM albuterol sulfate [Ventolin HFA] 90 mcg/actuation HFA aerosol inhaler 2 puff INHALATION Q4H PRN (Reason: Shortness Of Breath Or Wheezing) thiamine HCl (vitamin B1) 100 mg tablet 100 mg PO BID melatonin 3 mg Tablet 15 mg PO BEDTIME PRN (Reason: Sleep) multivitamin Tablet 1 tab PO DAILY lamotrigine 25 mg tablet 75 mg PO BEDTIME folic acid 1 mg tablet 1 mg PO DAILY bupropion HCl 300 mg tablet extended release 24 hr 300 mg PO DAILY Discharge Orders: Discharge Order (Routine); Ordered 01/28/25 Ordered By: Maxime Hyde Activity on Discharge: As tolerated Stand Alone Forms: Patient Portal Discharge page Print Language: [place] Care Plan Goals: See below Health Concerns: Alcoholic gastritis Acute on chronic pancreatitis Chronic lower pain Alcohol use disorder Alcohol withdrawal Intractable abdominal pain Plan of Treatment: Your admitted to the hospital for intractable abdominal and back pain in the setting of acute alcoholic gastritis secondary to continued alcohol use. Your pain was controlled with IV opioids that were eventually transitioned to oral medications. Diet was slowly advanced and your now back to baseline and able to tolerate a solid diet. Your also treated empirically with phenobarb protocol for concerns of alcohol withdrawal. You will be discharged on a short course of oral opioids and with a referral for pain Clinic for management of chronic back pain. Your strongly encouraged to stop drinking and use whatever social, familial, or community support necessary to maintain sobriety. Assessment: See discharge summary
[2025-01-29 11:16] LABS: Alcohol, Ethyl Urine Screen NEGATIVE
== END 2025-01-28 13:23 | disposition home or self-care (01) | DRG 241 ==
LOC: HO.ED 06:11 → HO.EDOVER 06:33 → HO.IMC 16:47
PROVIDERS: Physician Assistant Medical; Admitting Provider Internal Medicine; Emergency Provider Student in an Organized Health Care Education/Training Program; PCP Pediatrics; Visit Provider Student in an Organized Health Care Education/Training Program
DX: K29.20 Alcoholic gastritis without bleeding (principal); K85.20 Alcohol induced acute pancreatitis without necrosis or infection; E87.21 Acute metabolic acidosis; K86.0 Alcohol-induced chronic pancreatitis; F17.210 Nicotine dependence, cigarettes, uncomplicated; E86.0 Dehydration; F10.20 Alcohol dependence, uncomplicated; Z71.6 Tobacco abuse counseling; K76.0 Fatty (change of) liver, not elsewhere classified; F31.9 Bipolar disorder, unspecified; F43.10 Post-traumatic stress disorder, unspecified; G89.29 Other chronic pain; Z79.899 Other long term (current) drug therapy
CPT/HCPCS: 36415; 80048; 80053; 80076; 80307; 82947; 83605; 83690; 85025; 85027; 87040; 99285; J1171; J1308; J2405; J2560; J2765; J7120; S9485

== ENCOUNTER → 2025-01-24 06:29 | Outpatient (BNV) | payer OTHER, SELFPAY | PROVIDERS: Admitting Provider Internal Medicine; Emergency Provider Student in an Organized Health Care Education/Training Program; PCP Pediatrics; Visit Provider Physician Assistant Medical | DX: K29.20 Alcoholic gastritis without bleeding (principal) | CPT/HCPCS: 99223; 99232; 99239 ==

== ENCOUNTER 2025-02-06 17:12 | Emergency (ER) | payer OTHER, SELFPAY ==
--- NOTE | ~2025-02-06 | XR_ITS ---
CLINICAL HISTORY: fall three days ago 1 view right tibia-fibula Comparison: None provided Findings No fractures or dislocations. There is distal fibular endosteal scalloping possibly related to metabolic or neoplastic bone disease. Correlate with clinical and laboratory findings. No joint effusion. No significant arthritic change. No radiopaque foreign body. IMPRESSION: 1. No acute findings. 2. Questionable distal fibular findings. Correlate with clinical and laboratory findings for significance. This document has been electronically signed by: Joey Pineda MD on 02/06/2025 19:13:12
[2025-02-06 17:32] VITALS: BP 125/79; PULSE 118; RESP 18; TEMP 37.1; O2SAT 95; BMI 29.0
--- NOTE | 2025-02-06 17:58 | ED.LOWEXIN ---
HPI - Extremity Injury (Lower) General Chief Complaint: Extremity Injury, Lower Stated Complaint: fx R fibula per urgent care x3days ago 02/14 & v Time Seen by Provider: 02/06/25 17:52 History of Present Illness HPI Narrative: Patient is a 44-year-old female presents today with having pain to the right leg. Status post fall 3 days ago it was accidental complaining of pain had an x-ray done at urgent Care was told she had a fracture. Sent in for further evaluation. No head injury no nausea no vomiting no systemic complaints Related Data Home Medications ?Medication ?Instructions ?Recorded ?Confirmed aripiprazole 10 mg tablet 10 mg PO BEDTIME 05/21/21 01/24/25 doxepin 50 mg capsule 50 mg PO BEDTIME 05/21/21 01/24/25 gabapentin 600 mg tablet 600 mg PO TID 05/21/21 01/24/25 lorazepam 1 mg tablet 1 mg PO TID Anxiety 05/21/21 01/24/25 pantoprazole 40 mg tablet,delayed 40 mg PO DAILY@0630 05/21/21 01/24/25 release bupropion HCl 300 mg 24 hr tablet, 300 mg PO DAILY 09/07/23 01/24/25 extended release folic acid 1 mg tablet 1 mg PO DAILY 09/07/23 01/24/25 lamotrigine 25 mg tablet 75 mg PO BEDTIME 09/07/23 01/24/25 snbsbx-gdljdeui-gbzwcpx 1 cap PO TIDWM 08/23/24 01/24/25 36,000-114,000-180,000 unit capsule,delay rel (Creon) trazodone 150 mg tablet 150 mg PO BEDTIME 08/23/24 01/24/25 albuterol sulfate 90 mcg/actuation 2 puff inhalation Q4H PRN 11/15/24 01/24/25 aerosol inhaler (Ventolin HFA) Shortness Of Breath Or Wheezing melatonin 3 mg tablet 15 mg PO BEDTIME PRN Sleep 12/27/24 01/24/25 thiamine HCl (vitamin B1) 100 mg 100 mg PO BID 12/27/24 01/24/25 tablet multivitamin 1 tab PO DAILY 01/24/25 01/24/25 Previous Rx's ?Medication ?Instructions ?Recorded prazosin 5 mg capsule 5 mg PO BEDTIME 30 days #30 caps 02/18/20 hydromorphone 2 mg tablet 2 mg PO Q8H PRN pain, severe #9 01/28/25 (Dilaudid) tabs Allergies Allergy/AdvReac Type Severity Reaction Status Date / Time ibuprofen AdvReac Stomach Verified 02/06/25 17:33 Upset morphine AdvReac Gastrointestinal Verified 02/06/25 17:33 Upset bees Allergy Severe Anaphylaxis Uncoded 01/24/25 00:27 Review of Systems Review of Systems: No chest pain or shortness breath no dizziness the fall was mechanical Yes all other systems are reviewed and are negative [facility] Past Medical History Medical History Alcohol abuse Alcoholism Suicidal ideations Intentional overdose Chronic cough Chronic pancreatitis Cocaine use Alcohol abuse Obesity (BMI 30.0-34.9) Pancreatitis Back pain Alcohol use disorder, severe, dependence Gastritis Gastritis Endometriosis Constipation Anxiety Depression Bipolar disorder Suicidal behavior PTSD (post-traumatic stress disorder) Surgical History History of ankle surgery Social History Social History Household Members: Spouse Housing: House Do you presently have visiting nurse or other home services: No Alcohol intake: current Alcohol intake frequency: 3 or more drinks per day Alcohol type: beer and hard liquor Comment: patient ind Patient Tobacco Use Status: Current someday Tobacco user Tobacco use type: Cigarette Cigarette Packs Per Day: 0 Cigarettes Per Day: 0 e-Cigarette/Vaping Use: Never Used Second Hand Smoke Exposure: No Substance Use Type: Crack/Cocaine Advance Directives Date on File: 09/07/23 service: No Sexual orientation: Straight/Heterosexual Physical Exam Exam: Exam: Appearance: Alert. Oriented X3. No acute distress. Eyes: Pupils equal, round and reactive to light. ENT: Pharynx normal. Neck: Normal inspection. Neck supple. No lymph nodes noted. No crepitus CVS: Normal heart rate and rhythm. Pulses normal. Normal S1 and S2 Respiratory: No respiratory distress. Breath sounds normal. No Wheezing. No rales Abdomen: Soft and nontender. No rigidity. No distention. good BS x4 Skin: Skin warm and dry. Normal skin color. Normal skin turgor. Extremities: No lower extremity edema. Neurovascular intact to all extremities. No Lacerations. No Rash Neuro: Oriented X 3. No motor deficit. No sensory deficit. Moving all extermities. No slurred speech Vital Signs: Vital Signs: Last Vital Signs Temp 98.7 F 02/06/25 17:32 Pulse 118 H 02/06/25 17:32 Resp 18 02/06/25 17:32 BP 125/79 02/06/25 17:32 Pulse Ox 95 02/06/25 17:32 O2 Del Method Room Air 02/06/25 17:32 BMI result Body Mass Index 29.0 Medications Administered Discontinued Medications Generic Name Dose Route Start Last Admin Trade Name Freq PRN Reason Stop Dose Admin Hydromorphone HCl 0.5 mg 02/06/25 17:57 02/06/25 18:51 Hydromorphone Hcl 0.5 Mg/0.5 Ml Syringe IVPUSH 02/06/25 17:58 0.5 mg ONCE ONE Administration Protocol Sodium Chloride 1,000 mls @ 999 mls/hr 02/06/25 18:00 02/06/25 18:51 Ns IV 02/06/25 19:00 999 mls/hr .Q1H1M ELIZABETH Administration Sodium Chloride 1,000 mls @ 999 mls/hr 02/06/25 18:00 02/06/25 18:51 Ns IV 02/06/25 19:00 999 mls/hr .Q1H1M ELIZABETH Administration Medical Decision Making Medical Decision Making [facility] Narrative: Patient's alcohol heel turner to be 163. She was given IV fluid monitored. There was no head injury. Patient went to urgent Care had an x-ray done it showed a question fracture per patient. We repeated the x-ray as patient has no gross pain no deformity to the tib-fib area. A distal fibular possible mass was noted. This finding was relayed to orthopedics. Patient will need close follow-up. Patient's information was tiger text to the orthopedic surgeon on-call. We will also attempt to have patient call the office in a.m. to get a close follow-up. Explained to patient the need to stop drinking. Patient states understanding. Differential Diagnosis Differential Diagnoses: The differential diagnosis associated with the presentation includes Consult Healthcare Provider Management of the patient was discussed with: Computational Scientist (Orthopedics) Lab Data [facility] Lab Attestation statement: I reviewed the patient's lab results. 02/06/25 18:49 02/06/25 18:49 Labs: Lab Results 02/06/25 Range/Units 18:49 WBC 10.5 (4.8-10.8) X10*3/uL RBC 3.69 L (4.20-5.50) X10*6/uL Hgb 11.1 L (12.0-16.0) g/dl Hct 32.8 L (37.0-47.0) % MCV 88.9 (80.0-98.0) fL MCH 30.1 (27.0-33.0) pg MCHC 33.8 (31.0-35.0) g/dl RDW 14.3 (11.0-16.0) % Plt Count 288 (160-400) X10*3/uL MPV 10.1 (9.4-12.3) fL Immature Gran % (Auto) 0.6 H (0.0-0.4) % Neut % (Auto) 66.3 (45-73) % Lymph % (Auto) 21.0 (20-40) % [place] % (Auto) 7.6 (2-11) % Eos % (Auto) 3.7 (0-4) % Baso % (Auto) 0.8 (0-2) % Lymph # (Auto) 2.2 (1.2-4.9) X10*3/uL [place] # (Auto) 0.8 (0.1-1.2) X10*3/uL Eos # (Auto) 0.4 (0.0-0.4) X10*3/uL Baso # (Auto) 0.1 (0.0-0.2) X10*3/uL Abs Immat Gran (auto) 0.06 H (0.00-0.03) X10*3/uL Absolute Neuts (auto) 6.9 (2.0-8.3) x10*3/uL Absolute Nucleated RBC 0.000 (0.0-0.012) X10*3/uL Nucleated RBC % (auto) 0.0 (0.0-0.2) /100WBC Sodium 142 (135-145) mmol/L Potassium 3.4 (3.3-5.1) mmol/L Chloride 104 (96-108) mmol/L Carbon Dioxide 26 (22-29) mmol/L Anion Gap 15 (12-20) BUN < 3 L (9-16) mg/dL Creatinine 0.55 (0.5-1.4) mg/dL Estim Creat Clear Calc 137.6 Estimated GFR > 60 Random Glucose 138 H (60-115) mg/dL Calcium 8.1 L (8.4-10.2) mg/dL Ethyl Alcohol 163 mg/dL Independent Interpretation I performed an independent interpretation of an: Plain X-Ray (Lesion noted in the distal fibula) Radiology Impression Discussion of test interpretation with radiology: I have reviewed the radiologist's reading. Radiologist Impression: I discussed the finding with the radiology team Discharge Plan Discharge Clinical Impression: Bone lesion Patient Disposition: Home, Self-Care Instructions: Leg Pain (ED) Additional Instructions: A possible mass was noted in your bone. You must closely follow-up with orthopedics. Risk of malignancy exists. Failure to do so could be dangerous for you Alcohol use disorder You were seen in the Emergency Department today for treatment of alcohol use disorder.? You may have been given medications to help with your withdrawal symptoms.? Please do not drink alcohol with them. This is very dangerous and can cause respiratory depression or other adverse reactions depending on the medication. If you would like to cut down or stop your alcohol use please consider calling our outpatient Addiction Treatment office:? [facility] (M-F 9a-5p) [address] [place] [address] [address] You have also been given a list of treatment providers in the area that can assist as well.? If you experience seizures, vomiting blood, black stools, falls, severe headache, chest pain, fevers, trouble breathing, hallucinations or any other concerns you need to call 911 or seek immediate care. Please stay hydrated. Prescriptions: No Action prazosin 5 mg Capsule 5 mg PO BEDTIME 30 Days Qty: 30 0RF doxepin 50 mg capsule 50 mg PO BEDTIME gabapentin 600 mg tablet 600 mg PO TID aripiprazole 10 mg tablet 10 mg PO BEDTIME lorazepam 1 mg tablet 1 mg PO TID pantoprazole 40 mg Tablet,Delayed Release (Dr/Ec) 40 mg PO DAILY@0630 trazodone 150 mg tablet 150 mg PO BEDTIME Creon 36,000-114,000- 180,000 unit capsule,delayed release(DR/EC) 1 cap PO TIDWM albuterol sulfate [Ventolin HFA] 90 mcg/actuation HFA aerosol inhaler 2 puff INHALATION Q4H PRN (Reason: Shortness Of Breath Or Wheezing) thiamine HCl (vitamin B1) 100 mg tablet 100 mg PO BID melatonin 3 mg Tablet 15 mg PO BEDTIME PRN (Reason: Sleep) multivitamin Tablet 1 tab PO DAILY hydromorphone [Dilaudid] 2 mg tablet 2 mg PO Q8H PRN (Reason: pain, severe) Qty: 9 0RF Rx Instructions: Partial Fill upon patient request. Take one tablet up to three times a day for severe pain lamotrigine 25 mg tablet 75 mg PO BEDTIME folic acid 1 mg tablet 1 mg PO DAILY bupropion HCl 300 mg tablet extended release 24 hr 300 mg PO DAILY Referrals: Amor Reardon MD [Physician, Orthopedics] - 02/10/25 Print Language: Czech
[2025-02-06 18:54] LABS: MANUAL DIFF FLAG NO
[2025-02-06 19:01] LABS: Hematocrit 32.8 % (37.0-47.0); Hemoglobin 11.1 g/dl (12.0-16.0); Imm Gran Abs Auto 0.06 X10*3/uL (0.00-0.03); Imm Gran Pct Auto 0.6 % (0.0-0.4); Lymphocytes Absolute Auto 2.2 X10*3/uL (1.2-4.9); Mean Corpuscular HGB Conc 33.8 g/dl (31.0-35.0); Mean Corpuscular Hemoglobin 30.1 pg (27.0-33.0); Mean Corpuscular Volume 88.9 fL (80.0-98.0); NRBC Abs Auto 0.000 X10*3/uL (0.0-0.012); NRBC Pct Auto 0.0 /100WBC (0.0-0.2); Platelet Count 288 X10*3/uL (160-400); Red Blood Count 3.69 X10*6/uL (4.20-5.50); White Blood Count 10.5 X10*3/uL (4.8-10.8)
[2025-02-06 19:06] LABS: Anion Gap 15 (12-20); Blood Urea Nitrogen < 3 mg/dL (9-16); Calcium 8.1 mg/dL (8.4-10.2); Carbon Dioxide 26 mmol/L (22-29); Chloride 104 mmol/L (96-108); Creatinine Clr Calc Pharmacy 137.6; Estimated Glomerular Filt Rate > 60; Potassium 3.4 mmol/L (3.3-5.1); Sodium 142 mmol/L (135-145)
--- OUTSIDE RECORDS SUMMARY | 2025-02-06 19:45 | XMS_ITS | Clinical Summary ---
Author Organization [facility] Address [address] [place] [address] Care Team Providers Care Office Helper Clerical Name Role Phone Unavailable Primary Care Provider [...] Last Done Comments Breast Cancer Screening 1978 Colorectal Cancer Screening: Colonoscopy 1978 DTaP,Tdap,and Td Vaccines (1 - Tdap) 1997 Hepatitis B Vaccines (1 of 3 - 19+ 3-dose series) 1997 Cervical Cancer Screening: P ap Smear 07/26/1999 HIV Screening 01/01/2024 Hepatitis C Screening 01/01/2024 Social Influencers of Health Screening 01/01/2024 Depression Screening 05/08/2024 COVID-19 Vaccine ( - 2023-2 5 season) 2025 Influenza Vaccine (#1) 2025 RSV Immunization Adult Patie nts (1 - 1-dose 75+ series) 2053 HIB Vaccines Aged Out No longer eligi [...]
--- OUTSIDE RECORDS SUMMARY | 2025-02-06 19:45 | XMS_ITS | Data Portability ---
Author Organization [place] [facility] Address [address] [place] [address] Care Team Providers Care Outside Sales Consultant Name Role Phone DILLON MCKEON Primary Care Provider [phone] Assessment Encounter Date Assessment Date Assessment LastModified [...] truck turned her right foot awkwardly. Using [facility], placed in a CAM boot. She has [...] resistance. X-rays ordered, obtained and reviewed at [facility] he views of the foot, ordered [...] obtained and reviewed by me today at [facility], demonstrating interval healing of her fracture [...] Surgeries orthopaed ic surgery (SURG) 2024 025 [id number] [facility] [place], [address] [facility], [place], [address], 15:52:23 Imaging XR, foot, 3 or more view - RM 108-- RECHECK 3V FOOT WB 2024 025 [facility], [address], [place], [address], 5 19:44:38 XR, foot, 3 or more view - room 110 3V L foot 2024 025 stella [facility], [address], [place], [address], 5 15:37:27 Medication Orders tramadol 50 mg tablet 2024 025 [id number], [address], [place], [id number], 5 10:55:43 Patient TargetsNo targets recorded. Patient InstructionsNo instructions recorded. Reason for Referral None Reported. Results Created Date Observation Date Name Description Value Unit Range Abnormal Flag Note LastModifiedBy Organization Detail LastModifiedTime 07/05/1907/05/2024 XR, foot, 3 or more view [email or web address] ?Encry pted=s hAaTro YD8dLq bEUv6g %2BXZw aYqtaq 0bqfl% 2Fg9IQ a4ajBk vP9nXo QUaueC m3YtLR FvZlgJ JJ8mAn HZtai3 8s0508 AC0Kqb XiMUqW vKiQtr MwF INTERFACE [facility] [address], [place], [address], 07/05/2024 14:19:22 07/05/19 25 07/05/2024 XR, foot, 3 or more view [email or web address] ?Encry pted=s hAaTro YD8dLq bEUv6g %2BXZw aYqtaq 0bqfl% 2Fg9IQ a4ajBk vP9nXo QUaueC m3YtLR FvZlgJ JJ8mAn HZtai3 3c7076 AC0Kqb XiMUqW vKiQtr MwF INTERFACE [facility] [address] [facility] [address], [place], [address], 07/05/2024 14:19:24 Result Notes Documentation Provider Name and Address Organization Details Recorded Time Xr, Foot, 3 Or More View : [email or web address] Encrypted=nuBwFezTN7mVhtJ Uv6g%0WDHxbWjvcv4bhcx%2Fg 8JJu7mbLocV7lIqJUlysPw4Uu TZFoXcfMAR4kHjIJual20i859 5DJ6BngZnTJdHvTeJyzUmR Not Available [facility] 07/05/2024 14:19: 23 Xr, Foot, 3 Or More View : [email or web address] Encrypted=siAcHsmDX4aWvjH Uv6g%2BUMjtZwfbm9iqcd%2Fg 3SYr5leNlnY4hNeKAsenHv4Au WZScCuwMNC3jAyZCtup87w686 5MD9DavTkSHfAvExTthPnP Not Available [facility] 07/05/2024 14:19: 25 Problems Name Problem SNOMED Code Status Onset Date Resolution Date Notes Provider Name and Address Organization Details Recorded Time No complaints 196177441 Active Status : 'A'; Not Available [facility] 4 09:21:44 Problem Notes None recorded. Medical Equipment None Reported. Allergies Allergen ID Allergen Name Allergen Category Reaction Reaction Severity Criticality Documentation Date Start Date Code Code System Note Provider Name and Address Organization Details Recorded Time 18818 Motrin medicatio n Not available Not available Not available 07/10/20232022 8 RxNorm Not Available [facility] 12:08:36 43889 Tylenol medicatio n Not available Not available Not available 07/10/20232022 3 RxNorm Not Available [facility] 12:08:37 Medications Name Sig Start Date [...] Last Updated DateTime 165.1 cm 31.6 kg/m2 13863.5 5 g 86 /min 98.5 [degF] 20 /min 125/79 mm[Hg] SAMY FRANKLIN [facility] 10:39:10 Date Recorded Body height Body mass index (BMI) Body weight Provider Name and Address Organization Details Last Updated DateTime 05/31/2024 165.1 cm 31.6 kg/m2 23029.55 g QUE CABALLERO [facility] 05/31/2024 14:37:55 Date Recorded Body height Body mass index (BMI) Body weight Provider Name and Address Organization Details Last Updated DateTime 07/05/2024 165.1 cm 31.6 kg/m2 03631.55 g DILLON Levi [facility] 07/05/2024 14:14:08 Social History None recorded. Functional Status None recorded. Mental Status None recorded. Family History Nothing Reported. Medical History Condition Response Anxiety/Depression Y Bleeding Disorder Y Gynecological HistoryNo gynecological history recorded. Obstetrics History GPAL:G 0 P 0 0 0 0 Past Encounters Encounter ID Performer Location Encounter Start Date Encounter Closed Date Diagnosis/Indication Diagnosis SNOMED-CT Code Diagnosis ICD10 Code Diagnosis IMO Codes Diagnosis Note [id number] MARK ANTHONY [facility] [address] [facility] [place] [place] [address] 05/14/2024 09:46:22 05/23/2024 16:07:15 Pain in left foot 1719979065 26686 M79.672 022595 Closed fra cture of fifth metatarsal bone 80438657 S92.352A 4752270 Closed fra cture of base of fifth metatarsal bone 383980657 S92.351A [id number] MARK ANTHONY [facility] [address] [place] [address] 05/31/2024 14:09:16 06/11/2024 14:19:37 Closed fracture of fifth metatarsal bone 48394578 S92.352A 2921247 [id number] MD YOLANDA Schreiber [place] [address] [place] [address] 07/05/2024 13:52:20 07/21/2024 19:44:37 Pain in left foot 2070196386 13245 M79.672 632526 Postoperative visit 1836 05068 Z48.89 [id number] Health Concerns Section Related Observation LastModified by Organization Detai ls LastModified Time None Recorded Concern Status LastModified by Organization Details LastModified Time None Recorded Advance Directives Directive None Recorded Payers Insurance Date Sequence Insurance Name Policy Number Policy Ramirez Covered Member ID Ramirez Member ID Guarantor Name 08/30/2024 1 [facility] (MEDICAID HMO) [id number] Rufina Schaefer [id number] Rufina Schaefer Notes Date Note Type Note [...] questions or concerns. Namrata Olvera PA-C [address], [place], [address], [facility] 05/31/2024 15:09:27 07/05/2024 text/html ROS as noted in the HPI Norbert Mahan MD [address], [place], [address], [facility] 07/05/2024 15:08:52 OBGyn Episode No OBEpisode recorded.
[2025-02-06 20:41] VITALS: BP 136/86; PULSE 116; RESP 20; TEMP 37.3; O2SAT 99
== END 2025-02-06 20:43 | disposition home or self-care (01) ==
PROVIDERS: Emergency Provider Emergency Medicine Emergency Medical Services; PCP Nurse Practitioner Adult Health
DX: M79.604 Pain in right leg (principal); F17.210 Nicotine dependence, cigarettes, uncomplicated; Z79.899 Other long term (current) drug therapy; Z51.81 Encounter for therapeutic drug level monitoring
CPT/HCPCS: 36415; 73590; 80048; 80307; 85025; 96361; 96374; 99283; 99284; J1171

== ENCOUNTER → 2025-02-06 18:55 | Outpatient (BNV) | payer OTHER, SELFPAY | PROVIDERS: Emergency Provider Emergency Medicine Emergency Medical Services; PCP Nurse Practitioner Adult Health; Visit Provider Specialist | DX: M79.604 Pain in right leg (principal); M89.9 Disorder of bone, unspecified; W19.XXXA Unspecified fall, initial encounter | CPT/HCPCS: 73590 ==

== ENCOUNTER 2025-02-08 17:04 | Inpatient (IN) | payer OTHER, SELFPAY ==
--- NOTE | ~2025-02-08 | MR_ITS ---
CLINICAL HISTORY: ?distal fib lesion, non disp fx fibular head, --- Additional Notes or Special Instructions: Hospitalist marilu Barron who suggested MRI with josefa MR right tibia and fibula with and without gadolinium Comparison: CT/SR - CT LOWER LEG RT W IV CON - 02/08/25 20:41 EDT CR - XR TIBIA FIBULA RT 2V - 02/06/25 19:02 EDT Findings: Mild marrow edema of the proximal fibula with fracture line corresponding with subacute fracture seen on prior CT. There is a 0.9 x 0.6 cm T2 hyperintense and T1 hypointense lesion in the distal fibula. No significant perilesional osseous edema. There is some mild adjacent intramuscular edema. This lesion demonstrates mild postcontrast enhancement. IMPRESSION: 1. Marrow edema with fracture line of the proximal fibula, concordant with known fracture seen on recent CT. 2. Small 0.9 cm lesion of the distal fibula demonstrating mild enhancement without significant perilesional edema. Orthopedic consultation is recommended. This document has been electronically signed by: Ayanna Sands MD on 02/11/2025 19:20:54
--- NOTE | ~2025-02-08 | CT_ITS ---
CLINICAL HISTORY: tib fib, CA, lytic lesion on xray CT right lower extremity with contrast Comparison: None provided Findings: Acute comminuted nondisplaced fracture of the fibular head. Redemonstration of a mixed lytic/sclerotic lesion within the distal fibula with endosteal scalloping and small area of cortical disruption medially (axial images 637 in series 4 ) IMPRESSION: Acute comminuted nondisplaced fracture of the fibular head. Redemonstration of a mixed lytic/sclerotic lesion within the distal fibula with endosteal scalloping and small area of cortical disruption, Findings are concerning for neoplastic process such as chondrosarcoma. Tissue sampling or MRI of the right lower extremity with contrast can be obtained for further evaluation. This document has been electronically signed by: Dayami Cartagena MD on 02/08/2025 22:02:04
[2025-02-08 17:23] VITALS: BP 140/92; BP 144/91; PULSE 119; RESP 22; TEMP 36.6; O2SAT 96; O2SAT 98; BMI 31.6
[2025-02-08 17:31] VITALS: RESP 20
--- NOTE | 2025-02-08 17:36 | PC.NURSE ---
Rufina comes to the ER today primarily for 02/14 right leg pain secondary to a growth that was discovered on xray on 02/06 here at [facility]. She was told to follow up closely with orthopedics. Pt reports the pain is unbearable at times, sometimes she is unable to bear weight on the extremity. there is severe tenderness upon palpation. Pt frequently yelling out and sobbing due to the pain. Pt reports due to the pain in her leg she is unable to complete most of her daily activies nor is she able to help with her husbands [employer] which has caused tension in their relationship. Due to the pain and this ongoing tension in her relationship, Rufina reports that she has been having increasing anxiety and depression as well as some suicidal thoguhts with a plan to take all of her lorazepam. Pt is currently requesting pain medication and food
--- NOTE | 2025-02-08 17:43 | PC.NURSE ---
Rufina also reports that she is a heavy drinker, often drinking 3 times a week having multiple twisted teas and nips of liquor. She denies withdrawal seizures but endorses a hx of DTs and hallucinations. 

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
--- OUTSIDE RECORDS SUMMARY | 2025-02-08 17:44 | XMS_ITS | Clinical Summary ---
Author Organization [facility] Address [address] [place] [address] Care Team Providers Care Regional Program Manager Name Role Phone Unavailable Primary Care Provider [...]
[2025-02-08 17:56] LABS: MANUAL DIFF FLAG NO
[2025-02-08 17:58] LABS: Hematocrit 32.8 % (37.0-47.0); Hemoglobin 11.0 g/dl (12.0-16.0); Imm Gran Abs Auto 0.03 X10*3/uL (0.00-0.03); Imm Gran Pct Auto 0.4 % (0.0-0.4); Lymphocytes Absolute Auto 2.0 X10*3/uL (1.2-4.9); Mean Corpuscular HGB Conc 33.5 g/dl (31.0-35.0); Mean Corpuscular Hemoglobin 29.6 pg (27.0-33.0); Mean Corpuscular Volume 88.4 fL (80.0-98.0); NRBC Abs Auto 0.000 X10*3/uL (0.0-0.012); NRBC Pct Auto 0.0 /100WBC (0.0-0.2); Platelet Count 260 X10*3/uL (160-400); Red Blood Count 3.71 X10*6/uL (4.20-5.50); White Blood Count 8.5 X10*3/uL (4.8-10.8)
[2025-02-08 18:20] LABS: Alanine Aminotransferase 42 U/L (0-31); Albumin Level 3.2 g/dL (3.5-5.0); Alkaline Phosphatase 229 U/L (39-117); Anion Gap 15 (12-20); Aspartate Amino Transferase 127 U/L (5-31); Blood Urea Nitrogen < 3 mg/dL (9-16); Calcium 8.6 mg/dL (8.4-10.2); Carbon Dioxide 25 mmol/L (22-29); Chloride 105 mmol/L (96-108); Creatinine Clr Calc Pharmacy 149.3; Estimated Glomerular Filt Rate > 60; Potassium 3.3 mmol/L (3.3-5.1); Sodium 142 mmol/L (135-145); Total Protein 5.9 g/dL (6.5-8.0)
--- NOTE | 2025-02-08 19:08 | PC.NURSE ---
Assumed care of this patient at this time, patient is tearful, anxious, complaining of 10/10 pain in her right tibia and requesting pain medications. ED provider Faustino notified.
[2025-02-08] MEDS: oxyCODONE HCl Immed Release 5 MG TABLET PO (19:24)
[2025-02-08 19:28] LABS: Appearance Urine Clear; Glucose Urine UA Negative (Negative); PH 8.5 (5.0-9.0); Specific Gravity - Urine 1.015 (1.005-1.025); UMIC TRIGGER UACC YES
--- NOTE | 2025-02-08 19:30 | PC.NURSE ---
Patient medicated per JUL for 10/10 pain in right leg.
[2025-02-08 19:40] LABS: Cannabinoid Screen Urine Not Detected (Not Detect)
--- NOTE | 2025-02-08 20:02 | PC.NURSE ---
20 G IV line established in L forearm for CT scan with IV contrast of R lower leg.
--- NOTE | 2025-02-08 20:40 | ED.GENADULT ---
HPI - General Adult General Chief complaint: General Medical Stated complaint: SI statements, R leg pain, learned she has cancer Time Seen by Provider: 02/08/25 19:14 Source: patient Limitations: no limitations History of Present Illness ED Provider: Lyric Robertson PA-C HPI narrative: 44-year-old female with a history of anxiety, depression, bipolar disorder, cocaine abuse, alcohol use disorder, GERD who presents with SI. 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 Patient returns to the emergency department with thoughts of self-harm, she states ?she just wants to end it all?. She says the pain is driving her thoughts of self-harm, that she has had increased anxiety over the new diagnosis. Patient states she has a plan to overdose on lorazepam and ?. Related Data Home Medications ?Medication ?Instructions ?Recorded ?Confirmed aripiprazole 10 mg tablet 10 mg PO BEDTIME 05/21/21 02/08/25 doxepin 50 mg capsule 50 mg PO BEDTIME 05/21/21 02/08/25 gabapentin 600 mg tablet 600 mg PO TID 05/21/21 02/08/25 lorazepam 1 mg tablet 1 mg PO TID Anxiety 05/21/21 02/08/25 pantoprazole 40 mg tablet,delayed 40 mg PO DAILY@0630 05/21/21 02/08/25 release bupropion HCl 300 mg 24 hr tablet, 300 mg PO DAILY 09/07/23 02/08/25 extended release folic acid 1 mg tablet 1 mg PO DAILY 09/07/23 02/08/25 lamotrigine 25 mg tablet 75 mg PO BEDTIME 09/07/23 02/08/25 sarair-faonuupg-ytktslo 1 cap PO TIDWM 08/23/24 02/08/25 36,000-114,000-180,000 unit capsule,delay rel (Creon) trazodone 150 mg tablet 150 mg PO BEDTIME 08/23/24 02/08/25 albuterol sulfate 90 mcg/actuation 2 puff inhalation Q4H PRN 11/15/24 02/08/25 aerosol inhaler (Ventolin HFA) Shortness Of Breath Or Wheezing melatonin 3 mg tablet 15 mg PO BEDTIME PRN Sleep 12/27/24 02/08/25 thiamine HCl (vitamin B1) 100 mg 100 mg PO BID 12/27/24 02/08/25 tablet multivitamin 1 tab PO DAILY 01/24/25 02/08/25 Previous Rx's ?Medication ?Instructions ?Recorded prazosin 5 mg capsule 5 mg PO BEDTIME 30 days #30 caps 02/18/20 hydromorphone 2 mg tablet 2 mg PO Q8H PRN pain, severe #9 01/28/25 (Dilaudid) tabs Allergies Allergy/AdvReac Type Severity Reaction Status Date / Time ibuprofen AdvReac Stomach Verified 02/08/25 17:27 Upset morphine AdvReac Gastrointestinal Verified 02/08/25 17:27 Upset bees Allergy Severe Anaphylaxis Uncoded 02/08/25 17:27 Review of Systems Review of Systems: Yes all other systems are reviewed and are negative Constitutional: Constitutional: Denies fatigue and Denies fever(s) Cardiovascular: Cardiovascular: Denies chest pain and Denies dyspnea Respiratory: Respiratory: Denies dyspnea Musculoskeletal: Musculoskeletal: Denies arthralgias and Denies joint swelling Psychiatric: Psychiatric: Reports suicidal ideation Endocrine: Endocrine: Denies fatigue PMFSH Past Medical History Attestation statement: The following information was validated with the patient. Medical History Alcohol abuse Alcoholism Suicidal ideations Intentional overdose Chronic cough Chronic pancreatitis Cocaine use Alcohol abuse Obesity (BMI 30.0-34.9) Pancreatitis Back pain Alcohol use disorder, severe, dependence Gastritis Gastritis Endometriosis Constipation Anxiety Depression Bipolar disorder Suicidal behavior PTSD (post-traumatic stress disorder) Surgical History History of ankle surgery Social History Social History Household Members: Spouse Housing: House Do you presently have visiting nurse or other home services: No Alcohol intake: current Alcohol intake frequency: a few times a week Alcohol type: beer and hard liquor Comment: patient ind Patient Tobacco Use Status: Current someday Tobacco user Tobacco use type: Cigarette Cigarette Packs Per Day: 0 Cigarettes Per Day: 0 Smoked in Last 30 Days: Yes e-Cigarette/Vaping Use: Never Used Patient Interested in Nicotine Replacement: No Patient Given Instructions on How to Stop Smoking: No Second Hand Smoke Exposure: Yes Use of substances other than those prescribed or required for medical reasons: No Substance Use Type: Crack/Cocaine Have you been hit, kicked, punched, or otherwise hurt by someone within the past year? If so, by whom?: No Do you feel safe in your current relationship?: Yes Is there a partner from a previous relationship who is making you feel unsafe now?: No Are you made to feel afraid or neglected: No Advance Directives: Yes Advance Directives on File: Yes Advance Directives Date on File: 09/07/23 Recently lost weight without trying: No How much weight loss: Not applicable Eating poorly because of decreased appetite: No Nutrition screen score: 0 Nutrition Risks: No Nutritional Risk Patient : No : No Poor oral hygiene: No service: No Sexual orientation: Straight/Heterosexual Physical Exam ED Exam Exam: Alert, tearful, anxious Vital Signs: Vital Signs - 24 hr 02/08/25 20:59 02/08/25 22:44 02/09/25 01:37 Temperature 98.4 F Pulse Rate 118 H Respiratory Rate 14 17 Blood Pressure 139/88 101/60 Pulse Oximetry 97 Oxygen Delivery Method Room Air BMI result Body Mass Index 31.6 Const Orientation/consciousness: patient oriented x3 Resp Effort & Inspection: normal respiratory effort Cardio Other: Normal peripheral perfusion Skin Other: Warm dry no rash Neuro General: patient oriented x3, no focal motor deficits and CN's II-XI intact bilaterally Psych Other: Anxious, tearful Course Reevaluation(s) Reevaluation #1: Time: 01:25 Date: 02/09/25 Provider: KODI Hinton Patient in physician observation for psychiatric evaluation.? No acute events reported overnight. No current complaints. VS stable.? Patient is in bed search status/pending CARE team evaluation. Will continue to monitor. Reevaluation #2: The tall boot was not sufficient it is too short, placing in a knee immobilizer instead Reevaluation #3: DR. Casarez's Progress note 09:00, 02/09/2025: Patient in physician observation for psych evaluation, no acute events reported by nurse overnight, no current complaints, VSS, care team input is appreciated, bed search is underway, continue physician observation. Medications Administered Generic Name Dose Route Start Last Admin Trade Name Freq PRN Reason Stop Dose Admin Lipase/Protease/Amylase 3 cap 02/09/25 13:00 02/09/25 17:04 Lipase/Prot/Amylase /38/60k Capsule. PO 3 cap TIDWM ELIZABETH Administration Aripiprazole 10 mg 02/08/25 22:30 02/08/25 22:43 Aripiprazole 10 Mg Tablet PO 10 mg BEDTIME ELIZABETH Administration Bupropion HCl 300 mg 02/09/25 09:00 02/09/25 08:15 Bupropion Hcl Xl 300 Mg Tab.Er.24h PO 300 mg DAILY ELIZABETH Administration Doxepin HCl 50 mg 02/08/25 22:45 02/08/25 22:43 Doxepin Hcl 25 Mg Capsule PO 50 mg BEDTIME ELIZABETH Administration Folic Acid 1 mg 02/09/25 09:00 02/09/25 08:15 Folic Acid 1 Mg Tablet PO 1 mg DAILY ELIZABETH Administration Gabapentin 600 mg 02/08/25 22:30 02/09/25 14:28 Gabapentin 600 Mg Tablet PO 600 mg TID ELIZABETH Administration Lamotrigine 75 mg 02/08/25 22:30 02/08/25 22:43 Lamotrigine 25 Mg Tablet PO 75 mg BEDTIME ELIZABETH Administration Lorazepam 1 mg 02/08/25 22:30 02/09/25 14:28 Lorazepam 1 Mg Tablet PO 1 mg TID ELIZABETH Administration Lorazepam 1 mg 02/09/25 16:23 02/09/25 19:01 Lorazepam 1 Mg Tablet PO 1 mg Q2H PRN Administration CIWA 8-11 Multivitamins/Vitamin C 1 tab 02/09/25 09:00 02/09/25 08:16 Multivitamin Tablet PO 1 tab DAILY ELIZABETH Administration Omeprazole 20 mg 02/09/25 06:30 02/09/25 08:15 Omeprazole 20 Mg Capsule. PO 20 mg DAILY@0630 ELIZABETH Administration Oxycodone HCl 5 mg 02/09/25 16:25 02/09/25 18:27 Oxycodone Hcl Immed Release 5 Mg Tablet PO 5 mg Q4H PRN Administration Pain, Moderate(Pain Scale 4-6) Prazosin HCl 5 mg 02/08/25 22:30 02/08/25 22:44 Prazosin Hcl 5 Mg Capsule PO 5 mg BEDTIME ELIZABETH Administration Protocol Thiamine HCl 100 mg 02/08/25 22:30 02/09/25 08:15 Thiamine Hcl 100 Mg Tablet PO 100 mg BID ELIZABETH Administration Trazodone HCl 150 mg 02/08/25 22:30 02/08/25 22:43 Trazodone Hcl 50 Mg Tablet PO 150 mg BEDTIME ELIZABETH Administration Discontinued Medications Generic Name Dose Route Start Last Admin Trade Name Freq PRN Reason Stop Dose Admin Acetaminophen 975 mg 02/08/25 19:16 02/08/25 19:25 Acetaminophen 325 Mg Tablet PO 02/08/25 19:17 975 mg ONCE ONE Administration Acetaminophen 975 mg 02/09/25 02:32 02/09/25 04:59 Acetaminophen 325 Mg Tablet PO 975 mg Q6H PRN Administration pain, mild Hydromorphone HCl 1 mg 02/08/25 20:32 02/08/25 20:59 Hydromorphone Hcl 1 Mg/Ml Syringe IVPUSH 02/08/25 20:33 1 mg ONCE ONE Administration Protocol Iohexol 100 ml 02/08/25 20:45 02/08/25 20:45 Iohexol 350 Mg/Ml 100 Ml Infus..Btl IV 02/08/25 20:46 85 ml ONCE ONE Administration Lorazepam 1 mg 02/08/25 19:28 02/08/25 19:36 Lorazepam 1 Mg Tablet PO 02/08/25 19:29 1 mg ONCE ONE Administration Oxycodone HCl 5 mg 02/08/25 19:16 02/08/25 19:24 Oxycodone Hcl Immed Release 5 Mg Tablet PO 02/08/25 19:17 5 mg ONCE ONE Administration Oxycodone HCl 5 mg 02/09/25 01:18 02/09/25 02:29 Oxycodone Hcl Immed Release 5 Mg Tablet PO 02/09/25 01:19 5 mg ONCE ONE Administration Oxycodone HCl 5 mg 02/09/25 01:25 02/09/25 14:28 Oxycodone Hcl Immed Release 5 Mg Tablet PO 5 mg Q6H PRN Administration Pain, Moderate(Pain Scale 4-6) Medical Decision Making Medical Decision Making MDM Narrative: 44-year-old female with a history of anxiety, depression, bipolar disorder, cocaine abuse, alcohol use disorder, GERD who presents with SI. 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 Patient returns to the emergency department with thoughts of self-harm, she states ?she just wants to end it all?. She says the pain is driving her thoughts of self-harm, that she has had increased anxiety over the new diagnosis. Patient states she has a plan to overdose on lorazepam and ?. Problem: Psychiatric illness, polysubstance abuse History: Per patient I have considered the following differential diagnoses: Bone malignancy, SI, HI, decompensated psychiatric illness, drug/alcohol intoxication Plan: Screening labs including drug screen and ethanol ordered from triage, I am obtaining a CT scan to better differentiate the lesion found on her tib-fib x-ray. Giving pain medication she will be referred to the care team. She also already has a establish orthopedic follow up from her initial visit in the emergency room 2 days ago. I have independently reviewed the following tests: Labs: No leukocytosis, not anemic, no electrolyte abnormality, U tox positive for barbiturates, cocaine, ethanol 115, not CT tib-fib right:Findings: Acute comminuted nondisplaced fracture of the fibular head. Redemonstration of a mixed lytic/sclerotic lesion within the distal fibula with endosteal scalloping and small area of cortical disruption medially (axial images 637 in series 4 ) IMPRESSION: Acute comminuted nondisplaced fracture of the fibular head. Redemonstration of a mixed lytic/sclerotic lesion within the distal fibula with endosteal scalloping and small area of cortical disruption, Findings are concerning for neoplastic process such as chondrosarcoma. Tissue sampling or MRI of the right lower extremity with contrast can be obtained for further evaluation. We will place the patient in a tall walking boot and supply with crutches. Differential Diagnosis Differential Diagnoses: The differential diagnosis associated with the presentation includes See medical decision-making Admission/Observation Consideration of admission/observation: Escalation of care including admission/observation considered Unclear if she will be a bed search, she is referred to the care team Consult Healthcare Provider Management of the patient was discussed with: Behavioral Health Provider Lab Data MDM Lab Attestation statement: I reviewed the patient's lab results. 02/08/25 17:51 02/08/25 17:51 Labs: Lab Results 02/08/25 02/08/25 Range/Units 17:51 19:19 WBC 8.5 (4.8-10.8) X10*3/uL RBC 3.71 L (4.20-5.50) X10*6/uL Hgb 11.0 L (12.0-16.0) g/dl Hct 32.8 L (37.0-47.0) % MCV 88.4 (80.0-98.0) fL MCH 29.6 (27.0-33.0) pg MCHC 33.5 (31.0-35.0) g/dl RDW 14.6 (11.0-16.0) % Plt Count 260 (160-400) X10*3/uL MPV 10.1 (9.4-12.3) fL Immature Gran % (Auto) 0.4 (0.0-0.4) % Neut % (Auto) 63.8 (45-73) % Lymph % (Auto) 23.2 (20-40) % Schuyler % (Auto) 8.7 (2-11) % Eos % (Auto) 3.2 (0-4) % Baso % (Auto) 0.7 (0-2) % Lymph # (Auto) 2.0 (1.2-4.9) X10*3/uL Schuyler # (Auto) 0.7 (0.1-1.2) X10*3/uL Eos # (Auto) 0.3 (0.0-0.4) X10*3/uL Baso # (Auto) 0.1 (0.0-0.2) X10*3/uL Abs Immat Gran (auto) 0.03 (0.00-0.03) X10*3/uL Absolute Neuts (auto) 5.5 (2.0-8.3) x10*3/uL Absolute Nucleated RBC 0.000 (0.0-0.012) X10*3/uL Nucleated RBC % (auto) 0.0 (0.0-0.2) /100WBC Sodium 142 (135-145) mmol/L Potassium 3.3 (3.3-5.1) mmol/L Chloride 105 (96-108) mmol/L Carbon Dioxide 25 (22-29) mmol/L Anion Gap 15 (12-20) BUN < 3 L (9-16) mg/dL Creatinine 0.51 (0.5-1.4) mg/dL Estim Creat Clear Calc 149.3 Estimated GFR > 60 Random Glucose 135 H (60-115) mg/dL Calcium 8.6 D (8.4-10.2) mg/dL Total Bilirubin 0.9 (0.0-1.0) mg/dL AST 127 H (5-31) U/L ALT 42 H (0-31) U/L Alkaline Phosphatase 229 H (39-117) U/L Total Protein 5.9 L (6.5-8.0) g/dL Albumin 3.2 L (3.5-5.0) g/dL Beta HCG, Quant 4 mIU/mL Hold Red Top See Note Hold Yellow Top See Note Urine Color Dark Yellow Urine Appearance Clear Urine pH 8.5 (5.0-9.0) Ur Specific Hegins 1.015 (1.005-1.025) Urine Protein Negative (Neg-Trace) mg/dL Urine Glucose (UA) Negative (Negative) mg/dL Urine Ketones Negative (Negative) mg/dL Urine Blood Negative (Negative) Urine Nitrite Negative (Negative) Ur Leukocyte Esterase Trace H (Negative) Urine RBC 0-2 (0-2) /HPF Urine WBC 0-5 (0-5) /HPF Ur Squamous Epith Cells 0-2 (0-2) /HPF Urine Bacteria 4+ (None Seen) Hyaline Casts 0-2 (0-2) /LPF Urine Test NEGATIVE (NEGATIVE) Urine Opiates Screen Not Detected (Not Detect) Ur Buprenorphine Scrn Not Detected (Not Detect) ng/mL Ur Oxycodone Screen Not Detected (Not Detect) ng/mL Urine Methadone Screen Not Detected (Not Detect) ng/mL Urine Fentanyl Screen Not Detected (Not Detect) Ur Barbiturates Screen POSITIVE H (Not Detect) Ur Phencyclidine Scrn Not Detected (Not Detect) Ur Amphetamines Screen Not Detected (Not Detect) U Benzodiazepines Scrn Not Detected (Not Detect) Urine Cocaine Screen POSITIVE H (Not Detect) U Marijuana (THC) Screen Not Detected (Not Detect) Ethyl Alcohol 115 mg/dL Radiology Impression Discussion of test interpretation with radiology: I have reviewed the radiologist's reading. Discharge Plan Discharge Clinical Impression: Closed fracture of head of right fibula, Suicidal ideation Patient Disposition: Admitted As Inpatient Interventions: Admission Worksheet (ED) Last Done: 02/09/25 16:42 Discharge Date/Time: 02/09/25 16:43
[2025-02-08] MEDS: iohexoL 350 MG/ML 100 ML INFUS..BTL IV (20:45)
[2025-02-08 20:59] VITALS: RESP 14
--- NOTE | 2025-02-08 21:05 | PC.NURSE ---
CT scan completed, patent is back to her room/ 3. Patient medicated with Dilaudid 1 mg IVF for 9/10 pain in her right lower leg. IV line removed per MD order.
--- NOTE | 2025-02-08 21:22 | PC.NURSE ---
Patient is alert and oriented x4. Then Medication reconciliation completed by this RN based on patient's verbal report.
[2025-02-08 22:44] VITALS: BP 139/88
[2025-02-09 01:37] VITALS: BP 101/60; PULSE 118; RESP 17; TEMP 36.9; O2SAT 97
[2025-02-09] MEDS: oxyCODONE HCl Immed Release 5 MG TABLET PO ×5 (02:29→22:22)
--- NOTE | 2025-02-09 07:33 | PC.NURSE ---
Assumed care of patient appears to be in no apparent distress this am, laying in bed, respirations even and unlabored. Continue plan of care for CARE team follow up
[2025-02-09 08:00] LABS: UPreg QC Valid YES
[2025-02-09] MEDS: buPROPion HCl XL 300 MG TAB.ER.24H PO (08:15)
[2025-02-09] MEDS: Lipase/Prot/Amylase 12/38/60K CAPSULE.DR 3 CAP PO ×2 (13:03→17:04)
[2025-02-09 16:28] VITALS: BP 133/78; PULSE 120; RESP 18; O2SAT 95
[2025-02-09 16:29] VITALS: BMI 31.5
--- NOTE | 2025-02-09 17:44 | PC.ADMIT ---
Pt arrived to the unit at 1545 from [facility]. Skin check/contraband search completed. Pt oriented to unit. Pt placed on 5 minute safety checks d/t knee immobilizer. Pt signed a CV. Pt came into the ER d/t having suicidal thoughts surrounding being in pain from broken Tibia & from being told recently that she might possibly have osteosarcoma. Pt had thoughts of overdosing on her Ativan prescription. Pt has a history of PTSD, depression, anxiety, and poor sleep. Pt tox screen + for barbiturates & cocaine. BAL 115. Pt reports drinking 2 twisted teas and 5 nips four times a week. Pt placed on a CIWA. Pt currently not displaying withdrawal symptoms. Pt has a history of inpatient psych admissions. Her last admission was on 10/08/24 on M3. Pt has a history of section 35's when she was in her 20's. Pt has allergies to ibuprofen, morphine and bee stings. Pt smokes about 2 cigarettes a week and refuses nicotine replacement. Pt already immunized for flu this season. Legals completed. Safety tool & treatment plan completed.
[2025-02-09 20:00] VITALS: BP 115/71; PULSE 98; RESP 95; TEMP 37.3; O2SAT 95
[2025-02-09 20:17] VITALS: BP 118/71
[2025-02-10] MEDS: oxyCODONE HCl Immed Release 5 MG TABLET PO ×5 (03:17→20:16)
[2025-02-10] MEDS: Lipase/Prot/Amylase 12/38/60K CAPSULE.DR 3 CAP PO ×3 (08:21→16:49)
[2025-02-10] MEDS: buPROPion HCl XL 300 MG TAB.ER.24H PO (08:22)
--- NOTE | 2025-02-10 08:22 | HO.PM.IMCN ---
History of Present Illness Data of Consult Primary Care Provider: Anai Lane NP HPI anxiety, depression, bipolar disorder, cocaine abuse, alcohol use disorder, GERD who presents with SI. 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 [facility] Medical History Alcohol abuse Alcoholism Suicidal ideations Intentional overdose Chronic cough Chronic pancreatitis Cocaine use Alcohol abuse Obesity (BMI 30.0-34.9) Pancreatitis Back pain Alcohol use disorder, severe, dependence Gastritis Gastritis Endometriosis Constipation Anxiety Depression Bipolar disorder Suicidal behavior PTSD (post-traumatic stress disorder) Surgical History History of ankle surgery Social History Household Members: Spouse Housing: House Do you presently have visiting nurse or other home services: No Alcohol intake: current Alcohol intake frequency: a few times a week Alcohol type: beer and hard liquor Comment: patient ind Patient Tobacco Use Status: Current someday Tobacco user Tobacco use type: Cigarette Cigarette Packs Per Day: 0 Cigarettes Per Day: 0 Smoked in Last 30 Days: Yes e-Cigarette/Vaping Use: Never Used Patient Interested in Nicotine Replacement: No Patient Given Instructions on How to Stop Smoking: No Second Hand Smoke Exposure: Yes Use of substances other than those prescribed or required for medical reasons: No Substance Use Type: Crack/Cocaine Currently Displaying Signs/Symptoms of Drug Intoxication Withdrawal: Yes Have you been hit, kicked, punched, or otherwise hurt by someone within the past year? If so, by whom?: No Do you feel safe in your current relationship?: Yes Is there a partner from a previous relationship who is making you feel unsafe now?: No Are you made to feel afraid or neglected: No Advance Directives: Yes Advance Directives on File: Yes Advance Directives Date on File: 09/07/23 Do you have thoughts of harming others: None Do you have a plan to hurt others: No Plan Recently lost weight without trying: No How much weight loss: Not applicable Eating poorly because of decreased appetite: No Nutrition screen score: 0 Nutrition Risks: No Nutritional Risk Patient : No : No Poor oral hygiene: No service: No Sexual orientation: Straight/Heterosexual Meds Allergies Allergy/AdvReac Type Severity Reaction Status Date / Time ibuprofen AdvReac Stomach Verified 02/08/25 17:27 Upset morphine AdvReac Gastrointestinal Verified 02/08/25 17:27 Upset bees Allergy Severe Anaphylaxis Uncoded 02/08/25 17:27 Active Medications: Current Medications Al Hydroxide/Mg Hydroxide (Magnesium Hydrox/Alum Hydrox 30 Ml Oral.Susp) 30 ml PO Q6H PRN PRN Reason: Heartburn/Nausea Albuterol Sulfate (Albuterol Sulfate 90 Mcg 8 Gm Inhaler) 2 puff INHALE Q4H PRN PRN Reason: Shortness Of Breath Or Wheezing Lipase/Protease/Amylase (Lipase/Prot/Amylase 12/38/60k Capsule.Dr) 3 cap PO TIDWM [facility] Last Admin: 02/09/25 17:04 Dose: 3 cap Aripiprazole (Aripiprazole 10 Mg Tablet) 10 mg PO BEDTIME [facility] Last Admin: 02/09/25 20:14 Dose: 10 mg Bupropion HCl (Bupropion Hcl Xl 300 Mg Tab.Er.24h) 300 mg PO DAILY [facility] Last Admin: 02/09/25 08:15 Dose: 300 mg Doxepin HCl (Doxepin Hcl 25 Mg Capsule) 50 mg PO BEDTIME [facility] Last Admin: 02/09/25 20:13 Dose: 50 mg Folic Acid (Folic Acid 1 Mg Tablet) 1 mg PO DAILY [facility] Last Admin: 02/09/25 08:15 Dose: 1 mg Gabapentin (Gabapentin 600 Mg Tablet) 600 mg PO TID [facility] Last Admin: 02/09/25 20:14 Dose: 600 mg Hydroxyzine HCl (Hydroxyzine Hcl 25 Mg Tablet) 25 mg PO Q6H PRN PRN Reason: mild anxiety Lamotrigine (Lamotrigine 25 Mg Tablet) 75 mg PO BEDTIME [facility] Last Admin: 02/09/25 20:14 Dose: 75 mg Lorazepam (Lorazepam 1 Mg Tablet) 1 mg PO TID [facility] Last Admin: 02/09/25 20:14 Dose: 1 mg Lorazepam (Lorazepam 1 Mg Tablet) 1 mg PO Q2H PRN PRN Reason: CIWA 8-11 Last Admin: 02/10/25 04:02 Dose: 1 mg Lorazepam (Lorazepam 1 Mg Tablet) 2 mg PO Q2H PRN PRN Reason: CIWA 12-15 Magnesium Hydroxide (Milk Of Magnesia 30 Ml Oral.Susp) 30 ml PO DAILY PRN PRN Reason: Constipation Melatonin (Melatonin 3 Mg Tablet) 15 mg PO BEDTIME PRN PRN Reason: Sleep Multivitamins/Vitamin C (Multivitamin Tablet) 1 tab PO DAILY [facility] Last Admin: 02/09/25 08:16 Dose: 1 tab Nicotine Polacrilex (Nicotine Polacrilex 2 Mg Gum) 2 mg BUCCAL Q2H PRN PRN Reason: Nicotine Cravings Omeprazole (Omeprazole 20 Mg Capsule.Dr) 20 mg PO DAILY@06 [facility] Last Admin: 02/10/25 06:31 Dose: 20 mg Oxycodone HCl (Oxycodone Hcl Immed Release 5 Mg Tablet) 5 mg PO Q4H PRN PRN Reason: Pain, Moderate(Pain Scale 4-6) Last Admin: 02/10/25 03:17 Dose: 5 mg Prazosin HCl (Prazosin Hcl 5 Mg Capsule) 5 mg PO BEDTIME [facility]; Protocol Last Admin: 02/09/25 20:17 Dose: 5 mg Thiamine HCl (Thiamine Hcl 100 Mg Tablet) 100 mg PO BID [facility] Last Admin: 02/09/25 20:13 Dose: 100 mg Thiamine HCl (Thiamine Hcl 100 Mg Tablet) 100 mg PO DAILY [facility] Trazodone HCl (Trazodone Hcl 50 Mg Tablet) 150 mg PO BEDTIME [facility] Last Admin: 02/09/25 20:13 Dose: 150 mg Trazodone HCl (Trazodone Hcl 50 Mg Tablet) 50 mg PO BEDTIME MRX1 PRN PRN Reason: Insomnia Home Medications ?Medication ?Instructions ?Recorded ?Confirmed ?Last Taken ?Type aripiprazole 10 mg tablet 10 mg PO BEDTIME 05/21/21 02/08/25 01/23/25 History doxepin 50 mg capsule 50 mg PO BEDTIME 05/21/21 02/08/25 01/23/25 History gabapentin 600 mg tablet 600 mg PO TID 05/21/21 02/08/25 01/23/25 History lorazepam 1 mg tablet 1 mg PO TID Anxiety 05/21/21 02/08/25 01/23/25 History pantoprazole 40 mg tablet,delayed 40 mg PO DAILY@0630 05/21/21 02/08/25 01/23/25 History release bupropion HCl 300 mg 24 hr tablet, 300 mg PO DAILY 09/07/23 02/08/25 01/23/25 History extended release folic acid 1 mg tablet 1 mg PO DAILY 09/07/23 02/08/25 01/23/25 History lamotrigine 25 mg tablet 75 mg PO BEDTIME 09/07/23 02/08/25 01/23/25 History [id number] 1 cap PO TIDWM 08/23/24 02/08/25 01/23/25 History 36,000-114,000-180,000 unit capsule,delay rel (Creon) trazodone 150 mg tablet 150 mg PO BEDTIME 08/23/24 02/08/25 01/23/25 History albuterol sulfate 90 mcg/actuation 2 puff inhalation Q4H PRN 11/15/24 02/08/25 01/23/25 History aerosol inhaler (Ventolin HFA) Shortness Of Breath Or Wheezing melatonin 3 mg tablet 15 mg PO BEDTIME PRN Sleep 12/27/24 02/08/25 01/23/25 History thiamine HCl (vitamin B1) 100 mg 100 mg PO BID 12/27/24 02/08/25 01/23/25 History tablet multivitamin 1 tab PO DAILY 01/24/25 02/08/25 01/23/25 History Physical Exam Vital Signs and Narrative: Vital Signs: Last Vital Signs Temp 99.1 F 02/09/25 20:00 Pulse 98 02/09/25 20:00 Resp 95 H 02/09/25 20:00 BP 118/71 02/09/25 20:17 Pulse Ox 95 02/09/25 20:00 O2 Del Method Room Air 02/09/25 20:00 BMI result Body Mass Index 31.5 Results Labs 02/08/25 17:51 02/08/25 17:51
[2025-02-10 09:31] VITALS: BP 103/55; PULSE 104; RESP 18; TEMP 36.1; O2SAT 92
[2025-02-10 09:33] LABS: Hemoglobin A1C 93.4002 umol/L; Total Hemoglobin (HGBA1C) 2637.7947 umol/L
[2025-02-10 09:41] LABS: Alanine Aminotransferase 37 U/L (0-31); Albumin Level 3.1 g/dL (3.5-5.0); Alkaline Phosphatase 219 U/L (39-117); Anion Gap 14 (12-20); Aspartate Amino Transferase 128 U/L (5-31); Blood Urea Nitrogen 4 mg/dL (9-16); Calcium 8.4 mg/dL (8.4-10.2); Carbon Dioxide 26 mmol/L (22-29); Chloride 100 mmol/L (96-108); Cholesterol 109 mg/dL (<200); Creatinine Clr Calc Pharmacy 117.0; Estimated Glomerular Filt Rate > 60; HDL Cholesterol 22 mg/dL (>40); Potassium 3.8 mmol/L (3.3-5.1); Sodium 136 mmol/L (135-145); Total Protein 5.7 g/dL (6.5-8.0); Triglycerides 131 mg/dL (<150)
[2025-02-10 09:59] LABS: Free T4 (Free Thyroxine) 0.89 ng/dL (0.71-1.85); Thyroid Stimulating Hormone 3.76 uIU/mL (0.32-4.0)
--- NOTE | 2025-02-10 10:23 | HO.PSYADMNOT ---
HPI Date of Service: 02/10/25 Chief Complaint: SI Sources of Information: patient interviewed, chart reviewed and crisis/core team assessment reviewed Additional Sources of Information: Seen At 115pm HPI Subjective Notes: Ramirez Warning and Conditional Voluntary Healthcare Proxy: No Guardianship: No Medical Problems Affecting Mental Status: No Narrative: 44 yo female, to ER with EMS, reporting R Leg pain. Pt to ER a few days before for leg pain s/p fall-told that she may have a neoplasm in R Tibia. Since learning of this she reports experiencing an increase in anxiety, SI with plan to OD. Today, she reports she was told she has a fibula fracture. She will see [facility] 02/19/25 and was given a soft brace but has not seen ortho in the ER. Pain meds are not too helpful and she is unsure if she has permission to bear weight on this leg. 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 To manage this stress she broke 2 years sobriety two months ago and began drinking 2 twisted iced teas with 5 fireball nips daily. Reports chronic pancreatitis, followed by [facility], with some mild current sx of pain, distress, however she believes it is due to detox. Past Psychiatric History: Denies history of SA/SIB. Prescriber: Megan Lopez ([facility]) Therapist: does not have History of detox admissions. History of 2 other inpatient psychiatric hospitalizations. Medical Evaluation Reviewed: Yes [facility] Medical History (Updated 02/10/25 @ 17:01 by Bekah Katz APRN) Alcohol use disorder Barbiturate abuse Cocaine use disorder Pancreatitis Elevated LFTs Alcohol use disorder Chronic pancreatitis Alcohol abuse Alcoholism Suicidal ideations Intentional overdose Chronic cough Chronic pancreatitis Cocaine use Alcohol abuse Obesity (BMI 30.0-34.9) Pancreatitis Back pain Alcohol use disorder, severe, dependence Gastritis Gastritis Endometriosis Constipation Anxiety Depression Bipolar disorder Suicidal behavior PTSD (post-traumatic stress disorder) Surgical History History of ankle surgery Family History: Father completed suicide Social History: Lives with . No kids. Works full-time for [employer]. Associates degree. Substance History: Broke sobriety two months ago- drinking 2 twisted tea drinks and 5 fireball shots daily Tox positive, cocaine, barbs. BAL 115 Trauma History: Yes Diagnostics Vital Signs (24Hr): Vital Signs - 24 hr 02/09/25 16:28 02/09/25 20:00 02/09/25 20:17 Temperature 99.1 F Pulse Rate 120 H 98 Respiratory Rate 18 95 H Blood Pressure 133/78 115/71 118/71 Pulse Oximetry 95 95 Oxygen Delivery Method Room Air Room Air 02/10/25 09:31 Temperature 97.0 F Pulse Rate 104 H Respiratory Rate 18 Blood Pressure 103/55 L Pulse Oximetry 92 Oxygen Delivery Method Room Air BMI result Body Mass Index 31.5 Labs 02/08/25 17:51 02/10/25 08:53 Labs: Laboratory Results - last 48 hr 02/08/25 02/08/25 02/10/25 17:51 19:19 08:53 WBC 8.5 RBC 3.71 L Hgb 11.0 L Hct 32.8 L MCV 88.4 MCH 29.6 MCHC 33.5 RDW 14.6 Plt Count 260 MPV 10.1 Immature Gran % (Auto) 0.4 Neut % (Auto) 63.8 Lymph % (Auto) 23.2 [place] % (Auto) 8.7 Eos % (Auto) 3.2 Baso % (Auto) 0.7 Lymph # (Auto) 2.0 [place] # (Auto) 0.7 Eos # (Auto) 0.3 Baso # (Auto) 0.1 Abs Immat Gran (auto) 0.03 Absolute Neuts (auto) 5.5 Absolute Nucleated RBC 0.000 Nucleated RBC % (auto) 0.0 Sodium 142 136 Potassium 3.3 3.8 Chloride 105 100 Carbon Dioxide 25 26 Anion Gap 15 14 BUN < 3 L 4 L Creatinine 0.51 0.65 Estim Creat Clear Calc 149.3 117.0 Estimated GFR > 60 > 60 Random Glucose 135 H 172 H Estimat Average Glucose 108 Hemoglobin A1c % 5.4 Calcium 8.6 D 8.4 Total Bilirubin 0.9 1.5 H AST 127 H 128 H ALT 42 H 37 H Alkaline Phosphatase 229 H 219 H Total Protein 5.9 L 5.7 L Albumin 3.2 L 3.1 L Triglycerides 131 Cholesterol 109 LDL Cholesterol, Calc 61 HDL Cholesterol 22 L TSH 3.76 Free T4 0.89 Beta HCG, Quant 4 Hold Red Top See Note Hold Yellow Top See Note Urine Color Dark Yellow Urine Appearance Clear Urine pH 8.5 Ur Specific [place] 1.015 Urine Protein Negative Urine Glucose (UA) Negative Urine Ketones Negative Urine Blood Negative Urine Nitrite Negative Ur Leukocyte Esterase Trace H Urine RBC 0-2 Urine WBC 0-5 Ur Squamous Epith Cells 0-2 Urine Bacteria 4+ Hyaline Casts 0-2 Urine Test NEGATIVE Urine Opiates Screen Not Detected Ur Buprenorphine Scrn Not Detected Ur Oxycodone Screen Not Detected Urine Methadone Screen Not Detected Urine Fentanyl Screen Not Detected Ur Barbiturates Screen POSITIVE H Ur Phencyclidine Scrn Not Detected Ur Amphetamines Screen Not Detected U Benzodiazepines Scrn Not Detected Urine Cocaine Screen POSITIVE H U Marijuana (THC) Screen Not Detected Ethyl Alcohol 115 Meds/Allergies Meds Home Medications ?Medication ?Instructions ?Recorded ?Confirmed ?Type aripiprazole 10 mg tablet 10 mg PO BEDTIME 05/21/21 02/08/25 History doxepin 50 mg capsule 50 mg PO BEDTIME 05/21/21 02/08/25 History gabapentin 600 mg tablet 600 mg PO TID 05/21/21 02/08/25 History lorazepam 1 mg tablet 1 mg PO TID Anxiety 05/21/21 02/08/25 History pantoprazole 40 mg tablet,delayed 40 mg PO DAILY@0630 05/21/21 02/08/25 History release bupropion HCl 300 mg 24 hr tablet, 300 mg PO DAILY 09/07/23 02/08/25 History extended release folic acid 1 mg tablet 1 mg PO DAILY 09/07/23 02/08/25 History lamotrigine 25 mg tablet 75 mg PO BEDTIME 09/07/23 02/08/25 History [id number] 1 cap PO TIDWM 08/23/24 02/08/25 History 36,000-114,000-180,000 unit capsule,delay rel (Creon) trazodone 150 mg tablet 150 mg PO BEDTIME 08/23/24 02/08/25 History albuterol sulfate 90 mcg/actuation 2 puff inhalation Q4H PRN 11/15/24 02/08/25 History aerosol inhaler (Ventolin HFA) Shortness Of Breath Or Wheezing melatonin 3 mg tablet 15 mg PO BEDTIME PRN Sleep 12/27/24 02/08/25 History thiamine HCl (vitamin B1) 100 mg 100 mg PO BID 12/27/24 02/08/25 History tablet multivitamin 1 tab PO DAILY 01/24/25 02/08/25 History Allergies Allergies Allergy/AdvReac Type Severity Reaction Status Date / Time ibuprofen AdvReac Stomach Verified 02/08/25 17:27 Upset morphine AdvReac Gastrointestinal Verified 02/08/25 17:27 Upset bees Allergy Severe Anaphylaxis Uncoded 02/08/25 17:27 Mental Status Exam Mental Status Exam Patient Appearance: Fatigued Patient Orientation: Person, Place, Time and Situation Level of Consciousness: Alert Patient Behavior: Talkative and Good Eye Contact Mood Description: Anxious, Sad, Nervous and Apprehensive Affect Description: Flat Patient Cognition Impaired: No Ability to Follow Directions: Good Speech Pattern: Spontaneous Speech Memory Description: Episodic Impaired Hallucinations: None Delusions: Not Present Thought Process: Distracted Thought Content: positive for Circumstantial, positive for Perseveration and positive for Suicidal Ideation Depressive Symptoms: Increased Anxiety Judgement: Fair Assessment & Plan Assessment & Plan (1) PTSD (post-traumatic stress disorder): Status: Acute Code(s): F43.10 - Post-traumatic stress disorder, unspecified (2) Alcohol use disorder: Status: Acute Code(s): F10.90 - Alcohol use, unspecified, uncomplicated (3) Bipolar disorder: Status: Acute Code(s): F31.9 - Bipolar disorder, unspecified (4) Cocaine use disorder: Status: Acute Code(s): F14.10 - Cocaine abuse, uncomplicated (5) Barbiturate abuse: Status: Acute Code(s): F13.10 - Sedative, hypnotic or anxiolytic abuse, uncomplicated (6) Closed fracture of head of right fibula: Status: Acute Code(s): S82.831A - Other fracture of upper and lower end of right fibula, initial encounter for closed fracture Plan 44 yo female, to ER with EMS, reporting R Leg pain. Pt to ER a few days before for leg pain s/p fall-told that she may have a neoplasm in R Tibia. Since learning of this she reports experiencing an increase in anxiety, SI with plan to OD. Today, she reports she was told she has a fibula fracture. She will see [facility] 02/19/25 and was given a soft brace but has not seen ortho in the ER. Pain meds are not too helpful and she is unsure if she has permission to bear weight on this leg. 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 To manage this stress she broke 2 years sobriety two months ago and began drinking 2 twisted iced teas with 5 fireball nips daily. Reports chronic pancreatitis, followed by [facility], with some mild current sx of pain, distress, however she believes it is due to detox. Plan: Admit, CV, 15 minute checks Continue current regime Lorazepam detox Hospitalist consult-pain, chronic pancreatitis, use of brace, boot Will follow hospitalist recommendations for further assessment. PT consult-fibular head fracture, non displaced per CAT Encourage full milieu Discharge planning. Patient educated on: substance abuse, therapeutic strategies and medical condition Informed Consent: understands Reason for continued inpatient stay Substantial Risk for: rapid decompensation and med/psych decompensation Statement Statement: I have reviewed the history and physical and performed a pertinent examination on my patient. No changes have occurred unless specified. If the History and Physical was not performed prior to admission, the Hospitalist's service will be consulted for completing the admission physical. Time Spent With Patient Time: Total time managing care of this patient today ____ minutes.
--- NOTE | 2025-02-10 13:56 | HO.PM.IMCN ---
History of Present Illness Data of Consult Service Date: 02/10/25 Primary Care Provider: Anai Lane NP HPI Reason for consult: Medical management 44-year-old female with a past medical history of PTSD, bipolar disorder, chronic abdominal pain, chronic pancreatitis, pathological closed fracture of the head of right fibula, history of intentional overdose, suicidal ideation, alcohol abuse, cocaine misuse, gastritis, anxiety, depression after she sustained a fall. She initially presented to the urgent care who reported that she had a fracture of the right fibula. Repeat x-ray and CT scan confirmed this. She was discharged from the ER with close follow up, re-presented to the ED with thoughts of self-harm. Evaluated by the care team and found to be appropriate for inpatient level of care, she is admitted for further care. Her urine was negative for any infection, positive for barbiturates and cocaine. CBC without leukocytosis and mild anemia present, electrolytes without any imbalances. Mild elevation in her liver enzymes at baseline. Triglycerides are within normal limits. On exam she has no complaints except for concerned about her recently diagnosed fracture. She denies any shortness of breath, dizziness lightheadedness or any other concerning symptoms. Review of Systems Review of Systems: Denies any shortness of breath, chest pain, palpitations, dizziness, lightheadedness, headaches, dysuria, abdominal pain or discomfort, nausea, vomiting or diarrhea. Denies Chills, body aches, muscle aches, fatigue or weight loss. [facility] Medical History Alcohol abuse Alcoholism Suicidal ideations Intentional overdose Chronic cough Chronic pancreatitis Cocaine use Alcohol abuse Obesity (BMI 30.0-34.9) Pancreatitis Back pain Alcohol use disorder, severe, dependence Gastritis Gastritis Endometriosis Constipation Anxiety Depression Bipolar disorder Suicidal behavior PTSD (post-traumatic stress disorder) Surgical History History of ankle surgery Social History Household Members: Spouse Housing: House Do you presently have visiting nurse or other home services: No Alcohol intake: current Alcohol intake frequency: a few times a week Alcohol type: beer and hard liquor Comment: patient ind Patient Tobacco Use Status: Current someday Tobacco user Tobacco use type: Cigarette Cigarette Packs Per Day: 0 Cigarettes Per Day: 0 Smoked in Last 30 Days: Yes e-Cigarette/Vaping Use: Never Used Patient Interested in Nicotine Replacement: No Patient Given Instructions on How to Stop Smoking: No Second Hand Smoke Exposure: Yes Use of substances other than those prescribed or required for medical reasons: No Substance Use Type: Crack/Cocaine Currently Displaying Signs/Symptoms of Drug Intoxication Withdrawal: Yes Have you been hit, kicked, punched, or otherwise hurt by someone within the past year? If so, by whom?: No Do you feel safe in your current relationship?: Yes Is there a partner from a previous relationship who is making you feel unsafe now?: No Are you made to feel afraid or neglected: No Advance Directives: Yes Advance Directives on File: Yes Advance Directives Date on File: 09/07/23 Do you have thoughts of harming others: None Do you have a plan to hurt others: No Plan Recently lost weight without trying: No How much weight loss: Not applicable Eating poorly because of decreased appetite: No Nutrition screen score: 0 Nutrition Risks: No Nutritional Risk Patient : No : No Poor oral hygiene: No service: No Sexual orientation: Straight/Heterosexual Meds Allergies Allergy/AdvReac Type Severity Reaction Status Date / Time ibuprofen AdvReac Stomach Verified 02/08/25 17:27 Upset morphine AdvReac Gastrointestinal Verified 02/08/25 17:27 Upset bees Allergy Severe Anaphylaxis Uncoded 02/08/25 17:27 Active Medications: Current Medications Al Hydroxide/Mg Hydroxide (Magnesium Hydrox/Alum Hydrox 30 Ml Oral.Susp) 30 ml PO Q6H PRN PRN Reason: Heartburn/Nausea Albuterol Sulfate (Albuterol Sulfate 90 Mcg 8 Gm Inhaler) 2 puff INHALE Q4H PRN PRN Reason: Shortness Of Breath Or Wheezing Lipase/Protease/Amylase (Lipase/Prot/Amylase 12/38/60k Capsule.) 3 cap PO TIDWM [facility] Last Admin: 02/10/25 12:27 Dose: 3 cap Aripiprazole (Aripiprazole 10 Mg Tablet) 10 mg PO BEDTIME [facility] Last Admin: 02/09/25 20:14 Dose: 10 mg Bupropion HCl (Bupropion Hcl Xl 300 Mg Tab.Er.24h) 300 mg PO DAILY [facility] Last Admin: 02/10/25 08:22 Dose: 300 mg Doxepin HCl (Doxepin Hcl 25 Mg Capsule) 50 mg PO BEDTIME [facility] Last Admin: 02/09/25 20:13 Dose: 50 mg Folic Acid (Folic Acid 1 Mg Tablet) 1 mg PO DAILY [facility] Last Admin: 02/10/25 08:21 Dose: 1 mg Gabapentin (Gabapentin 600 Mg Tablet) 600 mg PO TID [facility] Last Admin: 02/10/25 08:22 Dose: 600 mg Hydroxyzine HCl (Hydroxyzine Hcl 25 Mg Tablet) 25 mg PO Q6H PRN PRN Reason: mild anxiety Lamotrigine (Lamotrigine 25 Mg Tablet) 75 mg PO BEDTIME [facility] Last Admin: 02/09/25 20:14 Dose: 75 mg Lorazepam (Lorazepam 1 Mg Tablet) 1 mg PO TID [facility] Last Admin: 02/10/25 08:22 Dose: 1 mg Lorazepam (Lorazepam 1 Mg Tablet) 1 mg PO Q2H PRN PRN Reason: CIWA 8-11 Last Admin: 02/10/25 04:02 Dose: 1 mg Lorazepam (Lorazepam 1 Mg Tablet) 2 mg PO Q2H PRN PRN Reason: CIWA 12-15 Last Admin: 02/10/25 10:01 Dose: 2 mg Magnesium Hydroxide (Milk Of Magnesia 30 Ml Oral.Susp) 30 ml PO DAILY PRN PRN Reason: Constipation Melatonin (Melatonin 3 Mg Tablet) 15 mg PO BEDTIME PRN PRN Reason: Sleep Multivitamins/Vitamin C (Multivitamin Tablet) 1 tab PO DAILY [facility] Last Admin: 02/10/25 08:21 Dose: 1 tab Nicotine Polacrilex (Nicotine Polacrilex 2 Mg Gum) 2 mg BUCCAL Q2H PRN PRN Reason: Nicotine Cravings Omeprazole (Omeprazole 20 Mg Capsule.Dr) 20 mg PO DAILY@0630 [facility] Last Admin: 02/10/25 06:31 Dose: 20 mg Oxycodone HCl (Oxycodone Hcl Immed Release 5 Mg Tablet) 5 mg PO Q4H PRN PRN Reason: Pain, Moderate(Pain Scale 4-6) Last Admin: 02/10/25 12:28 Dose: 5 mg Prazosin HCl (Prazosin Hcl 5 Mg Capsule) 5 mg PO BEDTIME [facility]; Protocol Last Admin: 02/09/25 20:17 Dose: 5 mg Thiamine HCl (Thiamine Hcl 100 Mg Tablet) 100 mg PO DAILY [facility] Last Admin: 02/10/25 08:22 Dose: 100 mg Trazodone HCl (Trazodone Hcl 50 Mg Tablet) 150 mg PO BEDTIME [facility] Last Admin: 02/09/25 20:13 Dose: 150 mg Trazodone HCl (Trazodone Hcl 50 Mg Tablet) 50 mg PO BEDTIME MRX1 PRN PRN Reason: Insomnia Home Medications ?Medication ?Instructions ?Recorded ?Confirmed ?Last Taken ?Type aripiprazole 10 mg tablet 10 mg PO BEDTIME 05/21/21 02/08/25 01/23/25 History doxepin 50 mg capsule 50 mg PO BEDTIME 05/21/21 02/08/25 01/23/25 History gabapentin 600 mg tablet 600 mg PO TID 05/21/21 02/08/25 01/23/25 History lorazepam 1 mg tablet 1 mg PO TID Anxiety 05/21/21 02/08/25 01/23/25 History pantoprazole 40 mg tablet,delayed 40 mg PO DAILY@0630 05/21/21 02/08/25 01/23/25 History release bupropion HCl 300 mg 24 hr tablet, 300 mg PO DAILY 09/07/23 02/08/25 01/23/25 History extended release folic acid 1 mg tablet 1 mg PO DAILY 09/07/23 02/08/25 01/23/25 History lamotrigine 25 mg tablet 75 mg PO BEDTIME 09/07/23 02/08/25 01/23/25 History [id number] 1 cap PO TIDWM 08/23/24 02/08/25 01/23/25 History 36,000-114,000-180,000 unit capsule,delay rel (Creon) trazodone 150 mg tablet 150 mg PO BEDTIME 08/23/24 02/08/25 01/23/25 History albuterol sulfate 90 mcg/actuation 2 puff inhalation Q4H PRN 11/15/24 02/08/25 01/23/25 History aerosol inhaler (Ventolin HFA) Shortness Of Breath Or Wheezing melatonin 3 mg tablet 15 mg PO BEDTIME PRN Sleep 12/27/24 02/08/25 01/23/25 History thiamine HCl (vitamin B1) 100 mg 100 mg PO BID 12/27/24 02/08/25 01/23/25 History tablet multivitamin 1 tab PO DAILY 01/24/25 02/08/25 01/23/25 History Physical Exam Vital Signs and Narrative: Vital Signs: Last Vital Signs Temp 97.0 F 02/10/25 09:31 Pulse 104 H 02/10/25 09:31 Resp 18 02/10/25 09:31 BP 103/55 L 02/10/25 09:31 Pulse Ox 92 02/10/25 09:31 O2 Del Method Room Air 02/10/25 09:31 BMI result Body Mass Index 31.5 Appearance: Alert. Oriented X3. No acute distress. Eyes: Pupils equal, round and reactive to light. CVS: Normal heart rate and rhythm. Normal S1 and S2 Respiratory: No respiratory distress. Breath sounds normal. No Wheezing. No rales Abdomen: Soft and nontender. No distention. BS + X4 Skin: Skin warm and dry. Normal skin color. Normal skin turgor. Extremities: No lower extremity edema. Neurovascular intact to all extremities. No Lacerations. No Rash Neuro: Oriented X 3. No motor deficit. No sensory deficit. Moving all extermities. No slurred speech Results Labs 02/08/25 17:51 02/10/25 08:53 Labs: Laboratory Results - last 24 hr 02/10/25 08:53 Anion Gap 14 Estim Creat Clear Calc 117.0 Estimated GFR > 60 Random Glucose 172 H Estimat Average Glucose 108 Hemoglobin A1c % 5.4 Calcium 8.4 Total Bilirubin 1.5 H AST 128 H ALT 37 H Alkaline Phosphatase 219 H Total Protein 5.7 L Albumin 3.1 L Triglycerides 131 Cholesterol 109 LDL Cholesterol, Calc 61 HDL Cholesterol 22 L TSH 3.76 Free T4 0.89 Assessment and Plan (1) Closed fracture of head of right fibula: Status: Acute Plan 44-year-old female with a past medical history of PTSD, bipolar disorder, EtOH abuse, polysubstance abuse, chronic pancreatitis, chronic abdominal pain, anxiety, depression, recent closed fracture of the head of the right fibula, pathological, history of intentional overdose, gastritis presented to the ED with suicidal ideation after it was discovered that she has a pathological lesion of the right fibula. PTSD/Bipolar disorder/suicide ideation/history of intentional overdose/alcohol abuse/cocaine abuse/anxiety and depression Treatment per psychiatric team Chronic pancreatitis/gastritis/chronic abdominal pain Continue gabapentin, pantoprazole, pancreas Chronically elevated LFTs Closed fracture of the head of right fibula(?pathological) MRI for further definition Consult orthopedics Patient should be nonweightbearing to right fibula until MRI results Continue gabapentin and oxycodone for pain management Long boot at all time Thank you for allowing me to participate in the care of this patient. Will follow as needed, please notify medical provider with any changes in condition or concerns.
[2025-02-10 20:10] VITALS: BP 137/79; PULSE 90; RESP 16; TEMP 36.4; O2SAT 96
[2025-02-10 20:15] VITALS: BP 137/79
[2025-02-11] MEDS: oxyCODONE HCl Immed Release 5 MG TABLET PO ×3 (01:18→10:53)
[2025-02-11] MEDS: Lipase/Prot/Amylase 12/38/60K CAPSULE.DR 3 CAP PO ×3 (07:06→17:08)
[2025-02-11 08:00] VITALS: BP 111/64; PULSE 94; RESP 16; TEMP 37.5; O2SAT 94
[2025-02-11] MEDS: buPROPion HCl XL 300 MG TAB.ER.24H PO (08:26)
[2025-02-11 09:24] LABS: Amylase 11 U/L (28-100); Lipase 6 U/L (8-78)
--- NOTE | 2025-02-11 10:35 | HO.PSYCHPN ---
Subjective Subjective Date of Service: 02/11/25 Reason For Visit: SI Subjective Notes: Conditional Voluntary Healthcare Proxy: No Guardianship: No Medical Problems Affecting Mental Status: No Interim History: Detox continues. Pt reports improvement. Met with pt and Haseeb WILKERSON. Pt is wanting to complete detox and return to [facility] team for ongoing care, recovery coaching. Hospitalist team is working closely with ortho to assist pt with fracture and ?neoplasm. Ortho recommended MRI with contrast which is ordered and was completed this afternoon. Oxycodone increased, however, pt, after taking it vomited immediately. Repeat x 1 given. Monitoring vomiting as pt has chronic pancreatitis which may be exacerbating. Medication Compliance: Yes Side effects from medications: No (?vomiting this evening) Attending Groups: No Review of Systems Acute medical concerns: Yes as noted Review of Systems Review of Systems pain post fracture chronic pancreatitis Mental Status Exam Mental Status Exam Patient Appearance: Fatigued Patient Orientation: Person, Place, Time and Situation Level of Consciousness: Alert Patient Behavior: Talkative and Good Eye Contact Mood Description: Anxious, Sad, Nervous and Apprehensive Affect Description: Flat Patient Cognition Impaired: No Ability to Follow Directions: Good Speech Pattern: Spontaneous Speech Memory Description: Episodic Impaired Hallucinations: None Delusions: Not Present Thought Process: Distracted Thought Content: positive for Circumstantial, positive for Perseveration and positive for Suicidal Ideation Depressive Symptoms: Increased Anxiety Judgement: Fair Diagnostics Vital Signs (24Hr): Vital Signs - 24 hr 02/10/25 20:10 02/10/25 20:15 02/11/25 08:00 Temperature 97.6 F 99.5 F Pulse Rate 90 94 Respiratory Rate 16 16 Blood Pressure 137/79 137/79 111/64 Pulse Oximetry 96 94 Oxygen Delivery Method Room Air Room Air BMI result Body Mass Index 31.5 Labs 02/08/25 17:51 02/10/25 08:53 Labs: Laboratory Results - last 48 hr 02/10/25 02/11/25 08:53 08:46 Sodium 136 Potassium 3.8 Chloride 100 Carbon Dioxide 26 Anion Gap 14 BUN 4 L Creatinine 0.65 Estim Creat Clear Calc 117.0 Estimated GFR > 60 Random Glucose 172 H Estimat Average Glucose 108 Hemoglobin A1c % 5.4 Calcium 8.4 Total Bilirubin 1.5 H AST 128 H ALT 37 H Alkaline Phosphatase 219 H C-Reactive Protein 2.84 H Total Protein 5.7 L Albumin 3.1 L Triglycerides 131 Cholesterol 109 LDL Cholesterol, Calc 61 HDL Cholesterol 22 L Amylase 11 L Lipase 6 L TSH 3.76 Free T4 0.89 Medications Medications Current Medications Al Hydroxide/Mg Hydroxide (Magnesium Hydrox/Alum Hydrox 30 Ml Oral.Susp) 30 ml PO Q6H PRN PRN Reason: Heartburn/Nausea Albuterol Sulfate (Albuterol Sulfate 90 Mcg 8 Gm Inhaler) 2 puff INHALE Q4H PRN PRN Reason: Shortness Of Breath Or Wheezing Lipase/Protease/Amylase (Lipase/Prot/Amylase 12/38/60k Capsule.Dr) 3 cap PO TIDWM [facility] Last Admin: 02/11/25 07:06 Dose: 3 cap Aripiprazole (Aripiprazole 10 Mg Tablet) 10 mg PO BEDTIME [facility] Last Admin: 02/10/25 20:17 Dose: 10 mg Bupropion HCl (Bupropion Hcl Xl 300 Mg Tab.Er.24h) 300 mg PO DAILY [facility] Last Admin: 02/11/25 08:26 Dose: 300 mg Doxepin HCl (Doxepin Hcl 25 Mg Capsule) 50 mg PO BEDTIME [facility] Last Admin: 02/10/25 20:16 Dose: 50 mg Folic Acid (Folic Acid 1 Mg Tablet) 1 mg PO DAILY [facility] Last Admin: 02/11/25 08:26 Dose: 1 mg Gabapentin (Gabapentin 600 Mg Tablet) 600 mg PO TID [facility] Last Admin: 02/11/25 08:26 Dose: 600 mg Hydroxyzine HCl (Hydroxyzine Hcl 25 Mg Tablet) 25 mg PO Q6H PRN PRN Reason: mild anxiety Lamotrigine (Lamotrigine 25 Mg Tablet) 75 mg PO BEDTIME [facility] Last Admin: 02/10/25 20:16 Dose: 75 mg Lorazepam (Lorazepam 1 Mg Tablet) 1 mg PO TID [facility] Last Admin: 02/11/25 08:26 Dose: 1 mg Lorazepam (Lorazepam 1 Mg Tablet) 1 mg PO Q2H PRN PRN Reason: CIWA 8-11 Last Admin: 02/10/25 16:48 Dose: 1 mg Lorazepam (Lorazepam 1 Mg Tablet) 2 mg PO Q2H PRN PRN Reason: CIWA 12-15 Last Admin: 02/10/25 21:29 Dose: 2 mg Magnesium Hydroxide (Milk Of Magnesia 30 Ml Oral.Susp) 30 ml PO DAILY PRN PRN Reason: Constipation Melatonin (Melatonin 3 Mg Tablet) 15 mg PO BEDTIME PRN PRN Reason: Sleep Multivitamins/Vitamin C (Multivitamin Tablet) 1 tab PO DAILY [facility] Last Admin: 02/11/25 08:26 Dose: 1 tab Nicotine Polacrilex (Nicotine Polacrilex 2 Mg Gum) 2 mg BUCCAL Q2H PRN PRN Reason: Nicotine Cravings Omeprazole (Omeprazole 20 Mg Capsule.Dr) 20 mg PO DAILY@0630 [facility] Last Admin: 02/11/25 06:13 Dose: 20 mg Oxycodone HCl (Oxycodone Hcl Immed Release 5 Mg Tablet) 5 mg PO Q4H PRN PRN Reason: Pain, Moderate(Pain Scale 4-6) Last Admin: 02/11/25 07:06 Dose: 5 mg Prazosin HCl (Prazosin Hcl 5 Mg Capsule) 5 mg PO BEDTIME [facility]; Protocol Last Admin: 02/10/25 20:15 Dose: 5 mg Thiamine HCl (Thiamine Hcl 100 Mg Tablet) 100 mg PO DAILY [facility] Last Admin: 02/11/25 08:26 Dose: 100 mg Trazodone HCl (Trazodone Hcl 50 Mg Tablet) 150 mg PO BEDTIME [facility] Last Admin: 02/10/25 20:17 Dose: 150 mg Trazodone HCl (Trazodone Hcl 50 Mg Tablet) 50 mg PO BEDTIME MRX1 PRN PRN Reason: Insomnia Allergies Allergies Allergy/AdvReac Type Severity Reaction Status Date / Time ibuprofen AdvReac Stomach Verified 02/08/25 17:27 Upset morphine AdvReac Gastrointestinal Verified 02/08/25 17:27 Upset bees Allergy Severe Anaphylaxis Uncoded 02/08/25 17:27 Assessment & Plan Assessment & Plan (1) PTSD (post-traumatic stress disorder): Status: Acute Code(s): F43.10 - Post-traumatic stress disorder, unspecified (2) Alcohol use disorder: Status: Acute Code(s): F10.90 - Alcohol use, unspecified, uncomplicated (3) Bipolar disorder: Status: Acute Code(s): F31.9 - Bipolar disorder, unspecified (4) Cocaine use disorder: Status: Acute Code(s): F14.10 - Cocaine abuse, uncomplicated (5) Barbiturate abuse: Status: Acute Code(s): F13.10 - Sedative, hypnotic or anxiolytic abuse, uncomplicated (6) Closed fracture of head of right fibula: Status: Acute Code(s): S82.831A - Other fracture of upper and lower end of right fibula, initial encounter for closed fracture Plan 44 yo female, to ER with EMS, reporting R Leg pain. Pt to ER a few days before for leg pain s/p fall-told that she may have a neoplasm in [place]. Since learning of this she reports experiencing an increase in anxiety, SI with plan to OD. Today, she reports she was told she has a fibula fracture. She will see [facility] 02/19/25 and was given a soft brace but has not seen ortho in the ER. Pain meds are not too helpful and she is unsure if she has permission to bear weight on this leg. 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 To manage this stress she broke 2 years sobriety two months ago and began drinking 2 twisted iced teas with 5 fireball nips daily. Reports chronic pancreatitis, followed by [facility], with some mild current sx of pain, distress, however she believes it is due to detox. 02/11/25: Continue tx, pending MRI with contrast. Detox monitoring, pain mgt. Plan: Admit, CV, 15 minute checks Continue current regime Lorazepam detox Hospitalist consult-pain, chronic pancreatitis, use of brace, boot Will follow hospitalist recommendations for further assessment. PT consult-fibular head fracture, non displaced per CAT Encourage full milieu Discharge planning. Reason for continued inpatient stay Substantial Risk for: rapid decompensation and med/psych decompensation Time Spent With Patient Time: Total time managing care of this patient today ____ minutes.
[2025-02-11 10:59] VITALS: BP 111/65; PULSE 90; RESP 18; TEMP 38.2; O2SAT 95
[2025-02-11 11:52] LABS: Appearance Urine Clear; Glucose Urine UA Negative (Negative); PH 7.0 (5.0-9.0); Specific Gravity - Urine <= 1.005 (1.005-1.025); UMIC TRIGGER UA YES
[2025-02-11 12:25] LABS: Resp Syncy Virus RNA Qual PCR NEGATIVE (Negative); SARS COV2 PCR INHOUSE NEGATIVE (Negative)
--- NOTE | 2025-02-11 14:56 | P.PNIM_ITS ---
Subjective Subjective Date of Service: 02/11/25 Interval History: Patient reportedly had a temp at 100.8 degrees at 11:00. Denies any shortness of breath, dysuria, diarrhea, mouth pain, or any other concerning symptoms. She is going to an MRI at 17:00. On exam she has mild right upper quadrant pain. Denies any history of cholecystectomy. CBC pending. Urinalysis demonstrates small leukocyte esterase, WBCs and 1+ bacteria. Denies any cough. Has been out of bed. Short leg brace in place. Denies any diarrhea. Review of Systems Denies any shortness of breath, chest pain, palpitations, dizziness, lightheadedness, headaches, dysuria, abdominal pain or discomfort, nausea, vomiting or diarrhea. Physical Exam 2 Exam: Exam: Appearance: Alert. Oriented X3. No acute distress. Eyes: Pupils equal, round and reactive to light. ENT: Pharynx normal. Neck: Normal inspection. Neck supple. No lymph nodes noted. CVS: Normal heart rate and rhythm. Normal S1 and S2 Respiratory: No respiratory distress. Breath sounds normal. No Wheezing. No rales Abdomen: Soft. No rigidity. No distention. good BS x4. Mild tenderness to right upper quadrant. Skin: Skin warm and dry. Normal skin color. Normal skin turgor. Extremities: No lower extremity edema. Neurovascular intact to all extremities. Neuro: Oriented X 3. No motor deficit. No sensory deficit. Moving all extermities. No slurred speech Vital Signs: Vital Signs: Last Vital Signs Temp 100.8 F H 02/11/25 10:59 Pulse 90 02/11/25 10:59 Resp 18 02/11/25 10:59 BP 111/65 02/11/25 10:59 Pulse Ox 95 02/11/25 10:59 O2 Del Method Room Air 02/11/25 10:59 BMI result Body Mass Index 31.5 Const: Orientation/consciousness: patient oriented x3 Resp: Effort & Inspection: normal respiratory effort Cardio: Other: Normal peripheral perfusion Skin: Other: Warm dry no rash Neuro: General: patient oriented x3, no focal motor deficits and CN's II-XI intact bilaterally Psych: Other: Anxious, tearful Objective Data Active Medications Al Hydroxide/Mg Hydroxide (Magnesium Hydrox/Alum Hydrox 30 Ml Oral.Susp) 30 ml PO Q6H PRN PRN Reason: Heartburn/Nausea Albuterol Sulfate (Albuterol Sulfate 90 Mcg 8 Gm Inhaler) 2 puff INHALE Q4H PRN PRN Reason: Shortness Of Breath Or Wheezing Lipase/Protease/Amylase (Lipase/Prot/Amylase 12/38/60k Capsule.) 3 cap PO TIDWM [facility] Last Admin: 02/11/25 12:58 Dose: 3 cap Documented By: RONY Aripiprazole (Aripiprazole 10 Mg Tablet) 10 mg PO BEDTIME [facility] Last Admin: 02/10/25 20:17 Dose: 10 mg Documented By: DAWN Bupropion HCl (Bupropion Hcl Xl 300 Mg Tab.Er.24h) 300 mg PO DAILY [facility] Last Admin: 02/11/25 08:26 Dose: 300 mg Documented By: RONY Doxepin HCl (Doxepin Hcl 25 Mg Capsule) 50 mg PO BEDTIME [facility] Last Admin: 02/10/25 20:16 Dose: 50 mg Documented By: DAWN Folic Acid (Folic Acid 1 Mg Tablet) 1 mg PO DAILY [facility] Last Admin: 02/11/25 08:26 Dose: 1 mg Documented By: RONY Gabapentin (Gabapentin 600 Mg Tablet) 600 mg PO TID [facility] Last Admin: 02/11/25 14:06 Dose: 600 mg Documented By: THEODORE Hydroxyzine HCl (Hydroxyzine Hcl 25 Mg Tablet) 25 mg PO Q6H PRN PRN Reason: mild anxiety Lamotrigine (Lamotrigine 25 Mg Tablet) 75 mg PO BEDTIME [facility] Last Admin: 02/10/25 20:16 Dose: 75 mg Documented By: DAWN Lorazepam (Lorazepam 1 Mg Tablet) 1 mg PO TID [facility] Last Admin: 02/11/25 14:06 Dose: 1 mg Documented By: THEODORE Lorazepam (Lorazepam 1 Mg Tablet) 1 mg PO Q2H PRN PRN Reason: CI 8-11 Last Admin: 02/11/25 11:01 Dose: 1 mg Documented By: RONY Lorazepam (Lorazepam 1 Mg Tablet) 2 mg PO Q2H PRN PRN Reason: CI 12-15 Last Admin: 02/10/25 21:29 Dose: 2 mg Documented By: DAWN Magnesium Hydroxide (Milk Of Magnesia 30 Ml Oral.Susp) 30 ml PO DAILY PRN PRN Reason: Constipation Melatonin (Melatonin 3 Mg Tablet) 15 mg PO BEDTIME PRN PRN Reason: Sleep Multivitamins/Vitamin C (Multivitamin Tablet) 1 tab PO DAILY [facility] Last Admin: 02/11/25 08:26 Dose: 1 tab Documented By: RONY Nicotine Polacrilex (Nicotine Polacrilex 2 Mg Gum) 2 mg BUCCAL Q2H PRN PRN Reason: Nicotine Cravings Omeprazole (Omeprazole 20 Mg Capsule.Dr) 20 mg PO DAILY@0630 [facility] Last Admin: 02/11/25 06:13 Dose: 20 mg Documented By: DAWN Oxycodone HCl (Oxycodone Hcl Immed Release 5 Mg Tablet) 10 mg PO Q6H PRN PRN Reason: Pain, Moderate(Pain Scale 4-6) Prazosin HCl (Prazosin Hcl 5 Mg Capsule) 5 mg PO BEDTIME [facility]; Protocol Last Admin: 02/10/25 20:15 Dose: 5 mg Documented By: DAWN Thiamine HCl (Thiamine Hcl 100 Mg Tablet) 100 mg PO DAILY [facility] Last Admin: 02/11/25 08:26 Dose: 100 mg Documented By: RONY Trazodone HCl (Trazodone Hcl 50 Mg Tablet) 150 mg PO BEDTIME [facility] Last Admin: 02/10/25 20:17 Dose: 150 mg Documented By: DAWN Trazodone HCl (Trazodone Hcl 50 Mg Tablet) 50 mg PO BEDTIME MRX1 PRN PRN Reason: Insomnia Labs 02/08/25 17:51 02/10/25 08:53 Labs: Laboratory Results - last 24 hr 02/11/25 02/11/25 02/11/25 08:46 11:27 11:30 C-Reactive Protein 2.84 H Amylase 11 L Lipase 6 L Urine Color Yellow Urine Appearance Clear Urine pH 7.0 Ur Specific [place] <= 1.005 Urine Protein Negative Urine Glucose (UA) Negative Urine Ketones Negative Urine Blood Negative Urine Nitrite Negative Ur Leukocyte Esterase Small (1+) H Urine RBC 0-2 Urine WBC 6-10 H Ur Squamous Epith Cells 0-2 Urine Bacteria 1+ Hyaline Casts 0-2 Influenza Type A (PCR) NEGATIVE Influenza Type B (PCR) NEGATIVE RSV RNA Qual (PCR) NEGATIVE SARS-CoV-2 RNA (RT-PCR) NEGATIVE Assessment and Plan (1) Fever: Status: Acute Plan 44-year-old female with a past medical history of PTSD, bipolar disorder, EtOH abuse, polysubstance abuse, chronic pancreatitis, chronic abdominal pain, anxiety, depression, recent closed fracture of the head of the right fibula, pathological, history of intentional overdose, gastritis presented to the ED with suicidal ideation after it was discovered that she has a pathological lesion of the right fibula. PTSD/Bipolar disorder/suicide ideation/history of intentional overdose/alcohol abuse/cocaine abuse/anxiety and depression Treatment per psychiatric team Fever COVID and flu negative Urine appears positive, we will start Keflex 1X dose of tylenol Chronic pancreatitis/gastritis/chronic abdominal pain Continue gabapentin, pantoprazole, pancreas Chronically elevated LFTs Mild RUQ pain likely due to pancreatitis Closed fracture of the head of right fibula(?pathological) MRI for further definition Consult orthopedics Patient should be nonweightbearing to right fibula until MRI results. MRI scheduled at 5pm today Continue gabapentin and oxycodone for pain management Would avoid escalation of narcotics Long boot at all times Thank you for allowing me to participate in the care of this patient. Will follow as needed, please notify medical provider with any changes in condition or concerns. Quality Stroke Does the patient have a stroke diagnosis?: No VTE Prior VTE?: No VTE Risk Level:: Medical - low VTE Device Contraindication: Treatment Not Indicated VTE Drug Contraindication: Treatment Not Indicated
[2025-02-11] MEDS: oxyCODONE HCl Immed Release 5 MG TABLET 10 MG PO ×3 (17:08→23:21)
[2025-02-11 18:26] VITALS: TEMP 36.2
[2025-02-11 18:52] LABS: MANUAL DIFF FLAG NO
[2025-02-11 18:54] LABS: Hematocrit 30.8 % (37.0-47.0); Hemoglobin 10.1 g/dl (12.0-16.0); Imm Gran Abs Auto 0.06 X10*3/uL (0.00-0.03); Imm Gran Pct Auto 0.8 % (0.0-0.4); Lymphocytes Absolute Auto 1.6 X10*3/uL (1.2-4.9); Mean Corpuscular HGB Conc 32.8 g/dl (31.0-35.0); Mean Corpuscular Hemoglobin 29.9 pg (27.0-33.0); Mean Corpuscular Volume 91.1 fL (80.0-98.0); NRBC Abs Auto 0.000 X10*3/uL (0.0-0.012); NRBC Pct Auto 0.0 /100WBC (0.0-0.2); Platelet Count 218 X10*3/uL (160-400); Red Blood Count 3.38 X10*6/uL (4.20-5.50); White Blood Count 7.9 X10*3/uL (4.8-10.8)
[2025-02-11 20:05] VITALS: BP 111/66; PULSE 88; RESP 17; TEMP 36.9; O2SAT 97
[2025-02-11 20:17] VITALS: BP 111/66
[2025-02-11] MEDS: 0.9 % Sodium Chloride Flush 10 ML SYRINGE 5 ML IVFLUSH (23:21)
--- NOTE | 2025-02-11 23:31 | PC.NURSE ---
Patient was wearing her right boot, compliant with instruction, CIWA was 9/administered Ativan 1 mg as ordered/pending effect, reported right foot pain 10/10, PRN oxy 10 mg administered as ordered/pending effect, peripheral IV line on left arm/flushed as ordered/patent/IV site asymptomatic of infection, 5 minutes for safety check, meds and meals compliant, patient was tearful at time due to pain, reports her anxiety 8/10, depression 5/10, denied SI/HI/AVH, 5 minutes for safety check, no behavior and safety concerns at this time, will continue to monitor
[2025-02-12] MEDS: oxyCODONE HCl Immed Release 5 MG TABLET 10 MG PO (05:25)
[2025-02-12 07:58] VITALS: BP 98/57; PULSE 88; TEMP 37.1; O2SAT 95
[2025-02-12] MEDS: 0.9 % Sodium Chloride Flush 10 ML SYRINGE 5 ML IVFLUSH (08:34)
[2025-02-12] MEDS: Lipase/Prot/Amylase 12/38/60K CAPSULE.DR 3 CAP PO ×3 (08:37→17:13)
[2025-02-12] MEDS: buPROPion HCl XL 300 MG TAB.ER.24H PO (08:37)
--- NOTE | 2025-02-12 09:02 | PM.EVENT ---
Event Note Date of Service: 02/12/25 Event Note: 02/06/25 X-Rays right tib/fib: IMPRESSION: 1. No acute findings. 2. Questionable distal fibular findings. Correlate with clinical and laboratory findings for significance. 02/08/25 CT scan right tib/fib: IMPRESSION: Acute comminuted nondisplaced fracture of the fibular head. Redemonstration of a mixed lytic/sclerotic lesion within the distal fibula with endosteal scalloping and small area of cortical disruption, Findings are concerning for neoplastic process such as chondrosarcoma. Tissue sampling or MRI of the right lower extremity with contrast can be obtained for further evaluation. 02/11/25 MRI right tib/fib: IMPRESSION: 1. Marrow edema with fracture line of the proximal fibula, concordant with known fracture seen on recent CT. 2. Small 0.9 cm lesion of the distal fibula demonstrating mild enhancement without significant perilesional edema. Orthopedic consultation is recommended. Imaging studies have been reviewed: Recommendation for followup with ortho oncology for likely bone biopsy [facility] boot for proximal fib fx Patient may perform limited WB in the tall walking boot -Should she begin to experience any pain in the left lower extremity she should immediately stop weightbearing Time Spent With Patient Time: Total time managing care of this patient today ____ minutes.
--- NOTE | 2025-02-12 12:05 | P.PNPSI_ITS ---
Subjective Subjective Date of Service: 02/12/25 Reason For Visit: SI Subjective Notes: Conditional Voluntary Healthcare Proxy: No Guardianship: No Medical Problems Affecting Mental Status: Yes Interim History: Pt reports no further vomiting since evening of 02/11. Hospitalist team consulted regarding pain-pt wanting IV Dilaudid which was declined. Hospitalist team reports pt will require a biopsy to further evaluated questionable neoplasm. She will see [facility] on 02/19. Pt asks for DC on 02/13. 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 She reports detox is completed. Medication Compliance: Yes Side effects from medications: No Attending Groups: No Review of Systems Acute medical concerns: Yes as noted Medical Review of Systems: unchanged Review of Systems Review of Systems chronic pain-leg injury Mental Status Exam Mental Status Exam Patient Appearance: Fatigued Patient Orientation: Person, Place, Time and Situation Level of Consciousness: Alert Patient Behavior: Talkative and Good Eye Contact Mood Description: Apprehensive Affect Description: Flat Patient Cognition Impaired: No Ability to Follow Directions: Good Speech Pattern: Spontaneous Speech Memory Description: Episodic Impaired Hallucinations: None Delusions: Not Present Thought Process: Distracted Thought Content: positive for Circumstantial and positive for Perseveration Depressive Symptoms: Increased Anxiety Judgement: Good Diagnostics Vital Signs (24Hr): Vital Signs - 24 hr 02/11/25 18:26 02/11/25 20:05 02/11/25 20:17 Temperature 97.2 F 98.5 F Pulse Rate 88 Respiratory Rate 17 Blood Pressure 111/66 111/66 Pulse Oximetry 97 Oxygen Delivery Method Room Air 02/12/25 07:58 Temperature 98.7 F Pulse Rate 88 Respiratory Rate Blood Pressure 98/57 L Pulse Oximetry 95 Oxygen Delivery Method Room Air BMI result Body Mass Index 31.5 Labs 02/11/25 18:41 02/10/25 08:53 Labs: Laboratory Results - last 48 hr 02/11/25 02/11/25 02/11/25 08:46 11:27 11:30 WBC RBC Hgb Hct MCV MCH MCHC RDW Plt Count MPV Immature Gran % (Auto) Neut % (Auto) Lymph % (Auto) [place] % (Auto) Eos % (Auto) Baso % (Auto) Lymph # (Auto) [place] # (Auto) Eos # (Auto) Baso # (Auto) Abs Immat Gran (auto) Absolute Neuts (auto) Absolute Nucleated RBC Nucleated RBC % (auto) C-Reactive Protein 2.84 H Amylase 11 L Lipase 6 L Urine Color Yellow Urine Appearance Clear Urine pH 7.0 Ur Specific [place] <= 1.005 Urine Protein Negative Urine Glucose (UA) Negative Urine Ketones Negative Urine Blood Negative Urine Nitrite Negative Ur Leukocyte Esterase Small (1+) H Urine RBC 0-2 Urine WBC 6-10 H Ur Squamous Epith Cells 0-2 Urine Bacteria 1+ Hyaline Casts 0-2 Influenza Type A (PCR) NEGATIVE Influenza Type B (PCR) NEGATIVE RSV RNA Qual (PCR) NEGATIVE SARS-CoV-2 RNA (RT-PCR) NEGATIVE 02/11/25 18:41 WBC 7.9 RBC 3.38 L Hgb 10.1 L Hct 30.8 L MCV 91.1 MCH 29.9 MCHC 32.8 RDW 15.1 Plt Count 218 MPV 10.0 Immature Gran % (Auto) 0.8 H Neut % (Auto) 62.8 Lymph % (Auto) 20.6 [place] % (Auto) 10.8 Eos % (Auto) 4.5 H Baso % (Auto) 0.5 Lymph # (Auto) 1.6 [place] # (Auto) 0.9 Eos # (Auto) 0.4 Baso # (Auto) 0.0 Abs Immat Gran (auto) 0.06 H Absolute Neuts (auto) 5.0 Absolute Nucleated RBC 0.000 Nucleated RBC % (auto) 0.0 C-Reactive Protein Amylase Lipase Urine Color Urine Appearance Urine pH Ur Specific [place] Urine Protein Urine Glucose (UA) Urine Ketones Urine Blood Urine Nitrite Ur Leukocyte Esterase Urine RBC Urine WBC Ur Squamous Epith Cells Urine Bacteria Hyaline Casts Influenza Type A (PCR) Influenza Type B (PCR) RSV RNA Qual (PCR) SARS-CoV-2 RNA (RT-PCR) Medications Medications Current Medications Al Hydroxide/Mg Hydroxide (Magnesium Hydrox/Alum Hydrox 30 Ml Oral.Susp) 30 ml PO Q6H PRN PRN Reason: Heartburn/Nausea Albuterol Sulfate (Albuterol Sulfate 90 Mcg 8 Gm Inhaler) 2 puff INHALE Q4H PRN PRN Reason: Shortness Of Breath Or Wheezing Lipase/Protease/Amylase (Lipase/Prot/Amylase 12/38/60k Capsule.) 3 cap PO TIDWM [facility] Last Admin: 02/12/25 08:37 Dose: 3 cap Aripiprazole (Aripiprazole 10 Mg Tablet) 10 mg PO BEDTIME [facility] Last Admin: 02/11/25 20:18 Dose: 10 mg Bupropion HCl (Bupropion Hcl Xl 300 Mg Tab.Er.24h) 300 mg PO DAILY [facility] Last Admin: 02/12/25 08:37 Dose: 300 mg Cephalexin HCl (Cephalexin 500 Mg Capsule) 500 mg PO BID [facility] Last Admin: 02/12/25 08:38 Dose: 500 mg Doxepin HCl (Doxepin Hcl 25 Mg Capsule) 50 mg PO BEDTIME [facility] Last Admin: 02/11/25 20:15 Dose: 50 mg Folic Acid (Folic Acid 1 Mg Tablet) 1 mg PO DAILY [facility] Last Admin: 02/12/25 08:37 Dose: 1 mg Gabapentin (Gabapentin 600 Mg Tablet) 600 mg PO TID [facility] Last Admin: 02/12/25 08:37 Dose: 600 mg Hydroxyzine HCl (Hydroxyzine Hcl 25 Mg Tablet) 25 mg PO Q6H PRN PRN Reason: mild anxiety Lamotrigine (Lamotrigine 25 Mg Tablet) 75 mg PO BEDTIME [facility] Last Admin: 02/11/25 20:20 Dose: 75 mg Lorazepam (Lorazepam 1 Mg Tablet) 1 mg PO TID [facility] Last Admin: 02/12/25 08:37 Dose: 1 mg Magnesium Hydroxide (Milk Of Magnesia 30 Ml Oral.Susp) 30 ml PO DAILY PRN PRN Reason: Constipation Melatonin (Melatonin 3 Mg Tablet) 15 mg PO BEDTIME PRN PRN Reason: Sleep Last Admin: 02/11/25 20:16 Dose: 15 mg Multivitamins/Vitamin C (Multivitamin Tablet) 1 tab PO DAILY [facility] Last Admin: 02/12/25 08:37 Dose: 1 tab Nicotine Polacrilex (Nicotine Polacrilex 2 Mg Gum) 2 mg BUCCAL Q2H PRN PRN Reason: Nicotine Cravings Omeprazole (Omeprazole 20 Mg Capsule.Dr) 20 mg PO DAILY@0630 [facility] Last Admin: 02/12/25 04:54 Dose: 20 mg Oxycodone HCl (Oxycodone Hcl Immed Release 5 Mg Tablet) 5 mg PO Q6H PRN PRN Reason: Pain, Moderate(Pain Scale 4-6) Prazosin HCl (Prazosin Hcl 5 Mg Capsule) 5 mg PO BEDTIME [facility]; Protocol Last Admin: 02/11/25 20:17 Dose: 5 mg Sodium Chloride (0.9 % Sodium Chloride Flush 10 Ml Syringe) 5 ml IVFLUSH QSHIFT [facility] Last Admin: 02/12/25 08:34 Dose: 5 ml Thiamine HCl (Thiamine Hcl 100 Mg Tablet) 100 mg PO DAILY [facility] Last Admin: 02/12/25 08:37 Dose: 100 mg Trazodone HCl (Trazodone Hcl 50 Mg Tablet) 150 mg PO BEDTIME [facility] Last Admin: 02/11/25 20:17 Dose: 150 mg Trazodone HCl (Trazodone Hcl 50 Mg Tablet) 50 mg PO BEDTIME MRX1 PRN PRN Reason: Insomnia Last Admin: 02/11/25 20:21 Dose: 50 mg Allergies Allergies Allergy/AdvReac Type Severity Reaction Status Date / Time ibuprofen AdvReac Stomach Verified 02/08/25 17:27 Upset morphine AdvReac Gastrointestinal Verified 02/08/25 17:27 Upset bees Allergy Severe Anaphylaxis Uncoded 02/08/25 17:27 Assessment & Plan Assessment & Plan (1) PTSD (post-traumatic stress disorder): Status: Acute Code(s): F43.10 - Post-traumatic stress disorder, unspecified (2) Alcohol use disorder: Status: Acute Code(s): F10.90 - Alcohol use, unspecified, uncomplicated (3) Bipolar disorder: Status: Acute Code(s): F31.9 - Bipolar disorder, unspecified (4) Cocaine use disorder: Status: Acute Code(s): F14.10 - Cocaine abuse, uncomplicated (5) Barbiturate abuse: Status: Acute Code(s): F13.10 - Sedative, hypnotic or anxiolytic abuse, uncomplicated (6) Closed fracture of head of right fibula: Status: Acute Code(s): S82.831A - Other fracture of upper and lower end of right fibula, initial encounter for closed fracture Plan 44 yo female, to ER with EMS, reporting R Leg pain. Pt to ER a few days before for leg pain s/p fall-told that she may have a neoplasm in R [place]. Since learning of this she reports experiencing an increase in anxiety, SI with plan to OD. Today, she reports she was told she has a fibula fracture. She will see [facility] 02/19/25 and was given a soft brace but has not seen ortho in the ER. Pain meds are not too helpful and she is unsure if she has permission to bear weight on this leg. 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 To manage this stress she broke 2 years sobriety two months ago and began drinking 2 twisted iced teas with 5 fireball nips daily. Reports chronic pancreatitis, followed by [facility], with some mild current sx of pain, distress, however she believes it is due to detox. 02/11/25: Continue tx, pending MRI with contrast. Detox monitoring, pain mgt. 02/12/25: Planning DC for 02/13. Will follow up with [facility] on 02/19. Plan: Admit, CV, 15 minute checks Continue current regime Lorazepam detox Hospitalist consult-pain, chronic pancreatitis, use of brace, boot Will follow hospitalist recommendations for further assessment. PT consult-fibular head fracture, non displaced per CAT Encourage full milieu Discharge planning. Patient educated on: medication risk/benefits, therapeutic strategies and medical condition Informed Consent: understands Reason for continued inpatient stay Substantial Risk for: med/psych decompensation Time Spent With Patient Time: Total time managing care of this patient today ____ minutes.
[2025-02-12] MEDS: oxyCODONE HCl Immed Release 5 MG TABLET PO ×2 (14:18→21:10)
[2025-02-12 20:00] VITALS: BP 116/61; PULSE 84; TEMP 37; O2SAT 95
[2025-02-12 22:01] VITALS: BP 116/61
[2025-02-13] MEDS: 0.9 % Sodium Chloride Flush 10 ML SYRINGE 5 ML IVFLUSH (00:29)
[2025-02-13] MEDS: Lipase/Prot/Amylase 12/38/60K CAPSULE.DR 3 CAP PO ×2 (07:41→11:12)
[2025-02-13 08:00] VITALS: BP 105/64; PULSE 78; TEMP 36.5; O2SAT 95
--- NOTE | 2025-02-13 09:08 | P.PNIM_ITS ---
Subjective Subjective Date of Service: 02/13/25 Interval History: Patient was seen and examined, continues to report pain, she is vague and nonspecific about where her pain is or the severity of her pain, points to her hip. States to me that the pain is where the X was made on her hip. This repairer typewriter marked the area of her pain a couple of days ago and it is below her knee. She is confused and speech is slightly slurred, somnolent, easily aroused, pupils are pinpoint. On exam she denies any shortness of breath, dizziness lightheadedness or any other concerning symptoms. Review of Systems Denies any shortness of breath, chest pain, palpitations, dizziness, lightheadedness, headaches, dysuria, abdominal pain or discomfort, nausea, vomiting or diarrhea. Denies chills, body aches, muscle aches, fatigue or weight loss. Physical Exam 2 Exam: Exam: CONST: Alert and oriented, in NAD. Well nourished, somnolent HEENT: Normocephalic, atraumatic, MMM, Eyes clear, Neck supple RESP: Lungs clear, RRR even and regular HEART:,RRR, S1, S2. No edema GI:Abdomen Soft NT, ND. + BS times four :Deferred SKIN: Warm dry and intact, no visible lesions or rashes NEURO:CN II-XII Intact bilaterally, Sensation intact. PSYCH: Normal affect Vital Signs: Vital Signs: Last Vital Signs Temp 98.6 F 02/12/25 20:00 Pulse 84 02/12/25 20:00 Resp 17 02/11/25 20:05 BP 116/61 02/12/25 22:01 Pulse Ox 95 02/12/25 20:00 O2 Del Method Room Air 02/12/25 20:00 BMI result Body Mass Index 31.5 Objective Data Active Medications Al Hydroxide/Mg Hydroxide (Magnesium Hydrox/Alum Hydrox 30 Ml Oral.Susp) 30 ml PO Q6H PRN PRN Reason: Heartburn/Nausea Albuterol Sulfate (Albuterol Sulfate 90 Mcg 8 Gm Inhaler) 2 puff INHALE Q4H PRN PRN Reason: Shortness Of Breath Or Wheezing Lipase/Protease/Amylase (Lipase/Prot/Amylase 12/38/60k Capsule.Dr) 3 cap PO TIDWM [facility] Last Admin: 02/13/25 07:41 Dose: 3 cap Documented By: ARIES Aripiprazole (Aripiprazole 10 Mg Tablet) 10 mg PO BEDTIME [facility] Last Admin: 02/12/25 22:00 Dose: 10 mg Documented By: KRYSTIN Bupropion HCl (Bupropion Hcl Xl 300 Mg Tab.Er.24h) 300 mg PO DAILY [facility] Last Admin: 02/12/25 08:37 Dose: 300 mg Documented By: MICHAEL Cephalexin HCl (Cephalexin 500 Mg Capsule) 500 mg PO BID [facility] Last Admin: 02/12/25 22:00 Dose: 500 mg Documented By: KRYSTIN Doxepin HCl (Doxepin Hcl 25 Mg Capsule) 50 mg PO BEDTIME [facility] Last Admin: 02/12/25 22:00 Dose: 50 mg Documented By: KRYSTIN Folic Acid (Folic Acid 1 Mg Tablet) 1 mg PO DAILY [facility] Last Admin: 02/12/25 08:37 Dose: 1 mg Documented By: MICHAEL Gabapentin (Gabapentin 600 Mg Tablet) 600 mg PO TID [facility] Last Admin: 02/12/25 22:01 Dose: 600 mg Documented By: KRYSTIN Hydroxyzine HCl (Hydroxyzine Hcl 25 Mg Tablet) 25 mg PO Q6H PRN PRN Reason: mild anxiety Lamotrigine (Lamotrigine 25 Mg Tablet) 75 mg PO BEDTIME [facility] Last Admin: 02/12/25 22:00 Dose: 75 mg Documented By: KRYSTIN Lorazepam (Lorazepam 1 Mg Tablet) 1 mg PO TID [facility] Last Admin: 02/12/25 22:00 Dose: 1 mg Documented By: KRYSTIN Magnesium Hydroxide (Milk Of Magnesia 30 Ml Oral.Susp) 30 ml PO DAILY PRN PRN Reason: Constipation Melatonin (Melatonin 3 Mg Tablet) 15 mg PO BEDTIME PRN PRN Reason: Sleep Last Admin: 02/11/25 20:16 Dose: 15 mg Documented By: DAWN Multivitamins/Vitamin C (Multivitamin Tablet) 1 tab PO DAILY [facility] Last Admin: 02/12/25 08:37 Dose: 1 tab Documented By: MICHAEL Nicotine Polacrilex (Nicotine Polacrilex 2 Mg Gum) 2 mg BUCCAL Q2H PRN PRN Reason: Nicotine Cravings Omeprazole (Omeprazole 20 Mg Capsule.Dr) 20 mg PO DAILY@0630 [facility] Last Admin: 02/13/25 06:13 Dose: 20 mg Documented By: KRYSTIN Oxycodone HCl (Oxycodone Hcl Immed Release 5 Mg Tablet) 5 mg PO Q6H PRN PRN Reason: Pain, Moderate(Pain Scale 4-6) Last Admin: 02/12/25 21:10 Dose: 5 mg Documented By: SESAR Prazosin HCl (Prazosin Hcl 5 Mg Capsule) 5 mg PO BEDTIME [facility]; Protocol Last Admin: 02/12/25 22:01 Dose: 5 mg Documented By: KRYSTIN Sodium Chloride (0.9 % Sodium Chloride Flush 10 Ml Syringe) 5 ml IVFLUSH QSHIFT [facility] Last Admin: 02/13/25 00:29 Dose: 5 ml Documented By: KRYSTIN Thiamine HCl (Thiamine Hcl 100 Mg Tablet) 100 mg PO DAILY [facility] Last Admin: 02/12/25 08:37 Dose: 100 mg Documented By: MICHAEL Trazodone HCl (Trazodone Hcl 50 Mg Tablet) 150 mg PO BEDTIME [facility] Last Admin: 02/12/25 22:00 Dose: 150 mg Documented By: KRYSTIN Trazodone HCl (Trazodone Hcl 50 Mg Tablet) 50 mg PO BEDTIME MRX1 PRN PRN Reason: Insomnia Last Admin: 02/11/25 20:21 Dose: 50 mg Documented By: DAWN Labs 02/11/25 18:41 02/10/25 08:53 Assessment and Plan (1) Closed fracture of head of right fibula: Status: Acute Plan 44-year-old female with a past medical history of PTSD, bipolar disorder, EtOH abuse, polysubstance abuse, chronic pancreatitis, chronic abdominal pain, anxiety, depression, recent closed fracture of the head of the right fibula, pathological, history of intentional overdose, gastritis presented to the ED with suicidal ideation after it was discovered that she has a pathological lesion of the right fibula. PTSD/Bipolar disorder/suicide ideation/history of intentional overdose/alcohol abuse/cocaine abuse/anxiety and depression Treatment per psychiatric team Urinary tract infection Continue Keflex, check sensitivities Chronic pancreatitis/gastritis/chronic abdominal pain Continue gabapentin, pantoprazole, pancreas Chronically elevated LFTs Mild RUQ pain likely due to pancreatitis Closed fracture of the head of right fibula/lytic lesion MRI identified 0.9 cm lesion of the distal fibula with a mild enhancement, needs further evaluation via biopsy Patient should be referred to Dr. Gutierrez orthopedics for likely bone biopsy at [facility]. We will need PCP referral Patient has an appointment scheduled for [facility] on February 19 as well Advised patient that she should sign a release for her CT and MRI results should she decide to keep the [facility] appointment. Continue gabapentin and oxycodone for pain management Would avoid escalation of narcotics May ambulate with limited weight bear left leg with tall boot. If patient experiences pain in the left lower extremity she should avoid weight- bearing Thank you for allowing me to participate in the care of this patient. Will follow as needed, please notify medical provider with any changes in condition or concerns. Quality Stroke Does the patient have a stroke diagnosis?: No VTE Prior VTE?: No VTE Risk Level:: Medical - low VTE Device Contraindication: Treatment Not Indicated VTE Drug Contraindication: Treatment Not Indicated
[2025-02-13] MEDS: oxyCODONE HCl Immed Release 5 MG TABLET PO (09:37)
[2025-02-13] MEDS: buPROPion HCl XL 300 MG TAB.ER.24H PO (09:38)
--- NOTE | 2025-02-13 12:46 | PM.PSYDC ---
DS: Providers Provider Date of Service: 02/13/25 Date of admission: 02/09/25 13:56 Date of discharge: 02/13/25 Primary care physician: Anai Lane NP Admitting clinician: Bekah Katz Attending physician on admission: Gonzalo Oakes Consults: 02/10/25 13:36 Consult to Hospitalist Routine Comment: ?ambulation, not seen by ortho, GABBY appt 02/19. Consulting Provider: [facility] Hospitalists Reason For Exam: fibular head fx, lesion distal fibula, chr pancrea 02/10/25 16:37 Consult to Orthopedics Routine Consulting Provider: [facility] Orthopedic Surgeons Reason for consultation: Question pathological fracture distal right fibula Attending physician on discharge: Gonzalo Oakes Discharging clinician: Bekah Katz DS: Diagnosis Discharge Diagnosis (1) Closed fracture of head of right fibula: Status: Acute (2) PTSD (post-traumatic stress disorder): Status: Acute (3) Bipolar disorder: Status: Acute (4) Barbiturate abuse: Status: Acute (5) Cocaine use disorder: Status: Acute (6) Alcohol use disorder: Status: Acute DS: Medications Discharge Medications Home Medications: Home Medications ?Medication ?Instructions ?Recorded ?Confirmed aripiprazole 10 mg tablet 10 mg PO BEDTIME 05/21/21 02/08/25 doxepin 50 mg capsule 50 mg PO BEDTIME 05/21/21 02/08/25 gabapentin 600 mg tablet 600 mg PO TID 05/21/21 02/08/25 lorazepam 1 mg tablet 1 mg PO TID Anxiety 05/21/21 02/08/25 pantoprazole 40 mg tablet,delayed 40 mg PO DAILY@0630 05/21/21 02/08/25 release bupropion HCl 300 mg 24 hr tablet, 300 mg PO DAILY 09/07/23 02/08/25 extended release folic acid 1 mg tablet 1 mg PO DAILY 09/07/23 02/08/25 lamotrigine 25 mg tablet 75 mg PO BEDTIME 09/07/23 02/08/25 [id number] 1 cap PO TIDWM 08/23/24 02/08/25 36,000-114,000-180,000 unit capsule,delay rel (Creon) trazodone 150 mg tablet 150 mg PO BEDTIME 08/23/24 02/08/25 albuterol sulfate 90 mcg/actuation 2 puff inhalation Q4H PRN 11/15/24 02/08/25 aerosol inhaler (Ventolin HFA) Shortness Of Breath Or Wheezing melatonin 3 mg tablet 15 mg PO BEDTIME PRN Sleep 12/27/24 02/08/25 thiamine HCl (vitamin B1) 100 mg 100 mg PO BID 12/27/24 02/08/25 tablet multivitamin 1 tab PO DAILY 01/24/25 02/08/25 Previous Rx's ?Medication ?Instructions ?Recorded prazosin 5 mg capsule 5 mg PO BEDTIME 30 days #30 caps 02/18/20 cephalexin 500 mg capsule 500 mg PO BID #14 caps 02/13/25 oxycodone 5 mg tablet 5 mg PO Q6H PRN Pain, 02/13/25 Moderate(Pain Scale 4-6) #14 tabs Mental Status Exam Mental Status Exam Patient Appearance: Fatigued Patient Orientation: Person, Place, Time and Situation Level of Consciousness: Alert Patient Behavior: Talkative and Good Eye Contact Mood Description: Apprehensive Affect Description: Flat Patient Cognition Impaired: No Ability to Follow Directions: Good Speech Pattern: Spontaneous Speech Memory Description: Episodic Impaired Hallucinations: None Delusions: Not Present Thought Process: Distracted Thought Content: positive for Circumstantial and positive for Perseveration Depressive Symptoms: Increased Anxiety Judgement: Good Data Data Completed and Pending Completed studies during hospitalization [Text1]: 02/08/25 02/08/25 02/10/25 17:51 19:19 08:53 WBC 8.5 RBC 3.71 L Hgb 11.0 L Hct 32.8 L MCV 88.4 MCH 29.6 MCHC 33.5 RDW 14.6 Plt Count 260 MPV 10.1 Immature Gran % (Auto) 0.4 Neut % (Auto) 63.8 Lymph % (Auto) 23.2 [place] % (Auto) 8.7 Eos % (Auto) 3.2 Baso % (Auto) 0.7 Lymph # (Auto) 2.0 [place] # (Auto) 0.7 Eos # (Auto) 0.3 Baso # (Auto) 0.1 Abs Immat Gran (auto) 0.03 Absolute Neuts (auto) 5.5 Absolute Nucleated RBC 0.000 Nucleated RBC % (auto) 0.0 Sodium 142 136 Potassium 3.3 3.8 Chloride 105 100 Carbon Dioxide 25 26 Anion Gap 15 14 BUN < 3 L 4 L Creatinine 0.51 0.65 Estim Creat Clear Calc 149.3 117.0 Estimated GFR > 60 > 60 Random Glucose 135 H 172 H Estimat Average Glucose 108 Hemoglobin A1c % 5.4 Calcium 8.6 D 8.4 Total Bilirubin 0.9 1.5 H AST 127 H 128 H ALT 42 H 37 H Alkaline Phosphatase 229 H 219 H C-Reactive Protein Total Protein 5.9 L 5.7 L Albumin 3.2 L 3.1 L Triglycerides 131 Cholesterol 109 LDL Cholesterol, Calc 61 HDL Cholesterol 22 L Amylase Lipase TSH 3.76 Free T4 0.89 Beta HCG, Quant 4 Hold Red Top See Note Hold Yellow Top See Note Urine Color Dark Yellow Urine Appearance Clear Urine pH 8.5 Ur Specific [place] 1.015 Urine Protein Negative Urine Glucose (UA) Negative Urine Ketones Negative Urine Blood Negative Urine Nitrite Negative Ur Leukocyte Esterase Trace H Urine RBC 0-2 Urine WBC 0-5 Ur Squamous Epith Cells 0-2 Urine Bacteria 4+ Hyaline Casts 0-2 Urine Test NEGATIVE Urine Opiates Screen Not Detected Ur Buprenorphine Scrn Not Detected Ur Oxycodone Screen Not Detected Urine Methadone Screen Not Detected Urine Fentanyl Screen Not Detected Ur Barbiturates Screen POSITIVE H Ur Phencyclidine Scrn Not Detected Ur Amphetamines Screen Not Detected U Benzodiazepines Scrn Not Detected Urine Cocaine Screen POSITIVE H U Marijuana (THC) Screen Not Detected Ethyl Alcohol 115 Influenza Type A (PCR) Influenza Type B (PCR) RSV RNA Qual (PCR) SARS-CoV-2 RNA (RT-PCR) 02/11/25 02/11/25 02/11/25 08:46 11:27 11:30 WBC RBC Hgb Hct MCV MCH MCHC RDW Plt Count MPV Immature Gran % (Auto) Neut % (Auto) Lymph % (Auto) [place] % (Auto) Eos % (Auto) Baso % (Auto) Lymph # (Auto) [place] # (Auto) Eos # (Auto) Baso # (Auto) Abs Immat Gran (auto) Absolute Neuts (auto) Absolute Nucleated RBC Nucleated RBC % (auto) Sodium Potassium Chloride Carbon Dioxide Anion Gap BUN Creatinine Estim Creat Clear Calc Estimated GFR Random Glucose Estimat Average Glucose Hemoglobin A1c % Calcium Total Bilirubin AST ALT Alkaline Phosphatase C-Reactive Protein 2.84 H Total Protein Albumin Triglycerides Cholesterol LDL Cholesterol, Calc HDL Cholesterol Amylase 11 L Lipase 6 L TSH Free T4 Beta HCG, Quant Hold Red Top Hold Yellow Top Urine Color Yellow Urine Appearance Clear Urine pH 7.0 Ur Specific [place] <= 1.005 Urine Protein Negative Urine Glucose (UA) Negative Urine Ketones Negative Urine Blood Negative Urine Nitrite Negative Ur Leukocyte Esterase Small (1+) H Urine RBC 0-2 Urine WBC 6-10 H Ur Squamous Epith Cells 0-2 Urine Bacteria 1+ Hyaline Casts 0-2 Urine Test Urine Opiates Screen Ur Buprenorphine Scrn Ur Oxycodone Screen Urine Methadone Screen Urine Fentanyl Screen Ur Barbiturates Screen Ur Phencyclidine Scrn Ur Amphetamines Screen U Benzodiazepines Scrn Urine Cocaine Screen U Marijuana (THC) Screen Ethyl Alcohol Influenza Type A (PCR) NEGATIVE Influenza Type B (PCR) NEGATIVE RSV RNA Qual (PCR) NEGATIVE SARS-CoV-2 RNA (RT-PCR) NEGATIVE 02/11/25 18:41 WBC 7.9 RBC 3.38 L Hgb 10.1 L Hct 30.8 L MCV 91.1 MCH 29.9 MCHC 32.8 RDW 15.1 Plt Count 218 MPV 10.0 Immature Gran % (Auto) 0.8 H Neut % (Auto) 62.8 Lymph % (Auto) 20.6 [place] % (Auto) 10.8 Eos % (Auto) 4.5 H Baso % (Auto) 0.5 Lymph # (Auto) 1.6 [place] # (Auto) 0.9 Eos # (Auto) 0.4 Baso # (Auto) 0.0 Abs Immat Gran (auto) 0.06 H Absolute Neuts (auto) 5.0 Absolute Nucleated RBC 0.000 Nucleated RBC % (auto) 0.0 Sodium Potassium Chloride Carbon Dioxide Anion Gap BUN Creatinine Estim Creat Clear Calc Estimated GFR Random Glucose Estimat Average Glucose Hemoglobin A1c % Calcium Total Bilirubin AST ALT Alkaline Phosphatase C-Reactive Protein Total Protein Albumin Triglycerides Cholesterol LDL Cholesterol, Calc HDL Cholesterol Amylase Lipase TSH Free T4 Beta HCG, Quant Hold Red Top Hold Yellow Top Urine Color Urine Appearance Urine pH Ur Specific [place] Urine Protein Urine Glucose (UA) Urine Ketones Urine Blood Urine Nitrite Ur Leukocyte Esterase Urine RBC Urine WBC Ur Squamous Epith Cells Urine Bacteria Hyaline Casts Urine Test Urine Opiates Screen Ur Buprenorphine Scrn Ur Oxycodone Screen Urine Methadone Screen Urine Fentanyl Screen Ur Barbiturates Screen Ur Phencyclidine Scrn Ur Amphetamines Screen U Benzodiazepines Scrn Urine Cocaine Screen U Marijuana (THC) Screen Ethyl Alcohol Influenza Type A (PCR) Influenza Type B (PCR) RSV RNA Qual (PCR) SARS-CoV-2 RNA (RT-PCR) DS: Summary Hospital Course Hospital Course: Admission to adult psychiatry for exacerbation of PTSD, Bipolar Disorder, Alcohol, Cocaine, Barbiturate Use Disorder. Pt to ER with distal right fibula fracture. CAT questioned neoplasm which was frightening to pt- she became suicidal with a plan to overdose. 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 With the fracutre, she will see [facility] on 02/19 and may need surgery. She is worried that this will prevent her from catching up with her work responsibilities. Medications were evaluated. Detox was completed. Pt declined changes. Pt declined contact with [facility]. She focused on further eval of injury and pain management which was attended to with hospitalist and ortho teams. She requested discharge to return to her work responsibilties prior to [facility] appt. She was able to resolve issues with her and plans to return to her [facility] team. Status at Discharge Functional status at discharge: independent ambulation Overall status at discharge: patient is progressing back to baseline Time Spent with Patient Time attestation: Total time managing care of this patient today ____ minutes. Time spent: Less than 30 minutes Discharge Plan Discharge Anticipated Discharge Date/Time: 02/13/25 14:00 Patient Disposition: Home, Self-Care Discharge Diagnosis: PTSD Bipolar Disorder Alcohol, Cocaine, Barbiturate use disorder Fx R Fibula Referrals: Megan Lopez CNP: [facility] [Other] - 02/28/25 1:30 pm Referral Note: Hospital discharge appointment Appointment is by telephone call with provider Anai Lane NP [Primary Care Provider, Medical] - 1 Week Discharge Medications: New cephalexin 500 mg Capsule 500 mg PO BID Qty: 14 0RF oxycodone 5 mg Tablet 5 mg PO Q6H PRN (Reason: Pain, Moderate(Pain Scale 4-6)) Qty: 14 0RF Rx Instructions: Partial Fill upon patient request. Continued prazosin 5 mg Capsule 5 mg PO BEDTIME 30 Days Qty: 30 0RF doxepin 50 mg capsule 50 mg PO BEDTIME gabapentin 600 mg tablet 600 mg PO TID aripiprazole 10 mg tablet 10 mg PO BEDTIME lorazepam 1 mg tablet 1 mg PO TID pantoprazole 40 mg Tablet,Delayed Release (Dr/Ec) 40 mg PO DAILY@0630 trazodone 150 mg tablet 150 mg PO BEDTIME Creon 36,000-114,000- 180,000 unit capsule,delayed release(DR/EC) 1 cap PO TIDWM albuterol sulfate [Ventolin HFA] 90 mcg/actuation HFA aerosol inhaler 2 puff INHALATION Q4H PRN (Reason: Shortness Of Breath Or Wheezing) thiamine HCl (vitamin B1) 100 mg tablet 100 mg PO BID melatonin 3 mg Tablet 15 mg PO BEDTIME PRN (Reason: Sleep) multivitamin Tablet 1 tab PO DAILY lamotrigine 25 mg tablet 75 mg PO BEDTIME folic acid 1 mg tablet 1 mg PO DAILY bupropion HCl 300 mg tablet extended release 24 hr 300 mg PO DAILY Discontinued hydromorphone [Dilaudid] 2 mg tablet 2 mg PO Q8H PRN (Reason: pain, severe) Qty: 9 0RF Rx Instructions: Partial Fill upon patient request. Take one tablet up to three times a day for severe pain Discharge Orders: Discharge Order (Routine); Ordered 02/13/25 Ordered By: Bekah Katz Diet: Advance to usual diet Activity on Discharge: As tolerated Stand Alone Forms: Patient Portal Discharge page, Community Support Print Language: Filipino Care Plan Goals: Abstinence from substances Mood and Behavioral Stabilization Health Concerns: Abstinence from substances Mood and Behavioral Stabilization Plan of Treatment: Attend scheduled appointments Take medications as directed Assessment: Vaishnavi LORD,HI, AH,VH Declines services Declines contact with providers. Discharge Date/Time: 02/13/25 14:04
== END 2025-02-13 14:04 | disposition home or self-care (01) | DRG 753 ==
LOC: HO.ED 20:40 → HO.PM5 02-09 14:07
PROVIDERS: Clinical Nurse Specialist Psychiatric/Mental Health, Adult; Nurse Practitioner Family; Physician Assistant Medical; Admitting Provider Nurse Practitioner Psychiatric/Mental Health; Emergency Provider Emergency Medicine; PCP Nurse Practitioner Adult Health; Visit Provider Nurse Practitioner Psychiatric/Mental Health
DX: F31.9 Bipolar disorder, unspecified (principal); R45.851 Suicidal ideations; F17.210 Nicotine dependence, cigarettes, uncomplicated; Y90.5 Blood alcohol level of 100-119 mg/100 ml; F43.10 Post-traumatic stress disorder, unspecified; F14.10 Cocaine abuse, uncomplicated; N39.0 Urinary tract infection, site not specified; M89.9 Disorder of bone, unspecified; S82.831A Other fracture of upper and lower end of right fibula, initial encounter for closed fracture; W19.XXXA Unspecified fall, initial encounter; F13.10 Sedative, hypnotic or anxiolytic abuse, uncomplicated; K86.1 Other chronic pancreatitis; Z20.822 Contact with and (suspected) exposure to COVID-19; F10.10 Alcohol abuse, uncomplicated; Z91.51 Personal history of suicidal behavior; Z71.6 Tobacco abuse counseling; Z79.899 Other long term (current) drug therapy
CPT/HCPCS: 36415; 73701; 73720; 80053; 80061; 80307; 81001; 81025; 82150; 83036; 83690; 84439; 84443; 84702; 85025; 86140; 87637; 99285; A9585; J1171; Q9967; S9485

== ENCOUNTER → 2025-02-08 19:18 | Outpatient (BNV) | payer OTHER, SELFPAY | PROVIDERS: Emergency Provider Emergency Medicine; PCP Nurse Practitioner Adult Health; Visit Provider Student in an Organized Health Care Education/Training Program | DX: S82.454A Nondisplaced comminuted fracture of shaft of right fibula, initial encounter for closed fracture (principal) | CPT/HCPCS: 73701 ==

== ENCOUNTER 2025-02-09 13:56 | Outpatient (BNV) | payer OTHER, SELFPAY | END 2025-02-11 16:29 | PROVIDERS: Admitting Provider Nurse Practitioner Psychiatric/Mental Health; Emergency Provider Emergency Medicine; PCP Nurse Practitioner Adult Health; Visit Provider Student in an Organized Health Care Education/Training Program | DX: S82.831A Other fracture of upper and lower end of right fibula, initial encounter for closed fracture (principal) | CPT/HCPCS: 73720 ==

== ENCOUNTER → 2025-02-09 13:56 | Outpatient (BNV) | payer OTHER, SELFPAY | PROVIDERS: Admitting Provider Nurse Practitioner Psychiatric/Mental Health; Emergency Provider Emergency Medicine; PCP Nurse Practitioner Adult Health; Visit Provider Nurse Practitioner Family | DX: S82.831D Other fracture of upper and lower end of right fibula, subsequent encounter for closed fracture with routine healing (principal) | CPT/HCPCS: 99221; 99231 ==

== ENCOUNTER → 2025-02-09 13:56 | Outpatient (BNV) | payer OTHER, SELFPAY | PROVIDERS: Admitting Provider Nurse Practitioner Psychiatric/Mental Health; Emergency Provider Emergency Medicine; PCP Nurse Practitioner Adult Health; Visit Provider Clinical Nurse Specialist Psychiatric/Mental Health, Adult | DX: F31.4 Bipolar disorder, current episode depressed, severe, without psychotic features (principal); F14.10 Cocaine abuse, uncomplicated; F10.90 Alcohol use, unspecified, uncomplicated; F43.11 Post-traumatic stress disorder, acute; F13.10 Sedative, hypnotic or anxiolytic abuse, uncomplicated; S82.831A Other fracture of upper and lower end of right fibula, initial encounter for closed fracture | CPT/HCPCS: 99231; 99232 ==

== ENCOUNTER 2025-03-15 15:43 | Inpatient (IN) | payer OTHER, SELFPAY ==
--- NOTE | ~2025-03-15 | CT_ITS ---
CLINICAL HISTORY: abd pain hx of pancreatitis CT abdomen and pelvis with contrast Comparison: CT/REG/SR - CT ABDOMEN PELVIS WO IV CON - 01/12/25 21:40 EDT Findings: LIMITED CHEST: Lung bases are clear. LIVER: Diffuse hypoattenuation suggesting steatosis. BILIARY: No gallbladder wall thickening, radiopaque stone, or ductal dilatation. PANCREAS: Atrophic parenchyma. Scattered calcification. There is mild peripancreatic inflammatory stranding. No fluid collection. SPLEEN: No splenomegaly. KIDNEYS: No hydronephrosis or radiopaque stone. Bilateral cortical lobulation. ADRENALS: No nodule. VASCULAR: No aneurysm. RETROPERITONEUM: No lymphadenopathy or mass. BOWEL/MESENTERY: No evidence of obstruction. No free fluid or air. Normal appendix. ABDOMINAL WALL: No mass or significant abnormality. URINARY BLADDER: No focal wall thickening. PELVIC NODES: No pelvic lymphadenopathy. PELVIC ORGANS: Normal for age. BONES: No acute fracture. OTHER: Negative. IMPRESSION: Mild peripancreatic inflammatory stranding, correlate with laboratory values for acute pancreatitis. This document has been electronically signed by: Ayanna Sands MD on 03/15/2025 21:23:56
[2025-03-15 15:47] VITALS: BP 113/67; PULSE 113; RESP 18; TEMP 36.6; O2SAT 94; BMI 30.4
--- NOTE | 2025-03-15 15:47 | ED.GENADULT ---
HPI - General Adult General Chief complaint: Abdominal Pain Stated complaint: chronic pancreatitis Time Seen by Provider: 03/15/25 18:28 History of Present Illness HPI narrative: Patient is a 44-year-old female with a history of pancreatitis history of alcohol use. History of chronic pancreatitis due to alcohol. Presents today with having abdominal pain mainly on the epigastric left side that is been ongoing associated with mild nausea. No change in bowel movement. No bloody stool. Patient is from home. History of alcohol use in the past. Admits to drinking prior to arrival. No chest pain or diaphoresis. The pain is the same as previous pain from pancreatitis. Related Data Home Medications ?Medication ?Instructions ?Recorded ?Confirmed aripiprazole 10 mg tablet 10 mg PO BEDTIME 05/21/21 03/16/25 doxepin 50 mg capsule 50 mg PO BEDTIME 05/21/21 03/16/25 gabapentin 600 mg tablet 600 mg PO TID 05/21/21 03/16/25 lorazepam 1 mg tablet 1 mg PO TID PRN Anxiety 05/21/21 03/16/25 pantoprazole 40 mg tablet,delayed 40 mg PO DAILY@0630 05/21/21 03/16/25 release bupropion HCl 300 mg 24 hr tablet, 300 mg PO DAILY 09/07/23 03/16/25 extended release folic acid 1 mg tablet 1 mg PO DAILY 09/07/23 03/16/25 lamotrigine 25 mg tablet 75 mg PO BEDTIME 09/07/23 03/16/25 frxkzk-eiemgzpt-xhvlfbr 1 cap PO TIDWM 08/23/24 03/16/25 (pork)36,000-114,000-180k unit capsule,del rel (Creon) trazodone 150 mg tablet 150 mg PO BEDTIME 08/23/24 03/16/25 albuterol sulfate 90 mcg/actuation 2 puff inhalation Q4H PRN 11/15/24 03/16/25 aerosol inhaler (Ventolin HFA) Shortness Of Breath Or Wheezing melatonin 3 mg tablet 15 mg PO BEDTIME PRN Sleep 12/27/24 03/16/25 thiamine HCl (vitamin B1) 100 mg 100 mg PO DAILY 12/27/24 03/16/25 tablet multivitamin 1 tab PO DAILY 01/24/25 03/16/25 Previous Rx's ?Medication ?Instructions ?Recorded prazosin 5 mg capsule 5 mg PO BEDTIME 30 days #30 caps 02/18/20 Allergies Allergy/AdvReac Type Severity Reaction Status Date / Time ibuprofen AdvReac Stomach Verified 03/15/25 15:49 Upset morphine AdvReac Gastrointestinal Verified 03/15/25 15:49 Upset bees Allergy Severe Anaphylaxis Uncoded 02/08/25 17:27 Review of Systems Review of Systems: Positive history of pancreatitis Positive abdominal pain Positive nausea Yes all other systems are reviewed and are negative PMFSH Past Medical History Attestation statement: The following information was validated with the patient. Medical History Alcohol use disorder Barbiturate abuse Cocaine use disorder Pancreatitis Elevated LFTs Alcohol use disorder Chronic pancreatitis Alcohol abuse Alcoholism Suicidal ideations Intentional overdose Chronic cough Chronic pancreatitis Cocaine use Alcohol abuse Obesity (BMI 30.0-34.9) Pancreatitis Back pain Alcohol use disorder, severe, dependence Gastritis Gastritis Endometriosis Constipation Anxiety Depression Bipolar disorder Suicidal behavior PTSD (post-traumatic stress disorder) Surgical History History of ankle surgery Social History Social History Household Members: None Housing: House Do you presently have visiting nurse or other home services: No Alcohol intake: current Alcohol intake frequency: a few times a week Alcohol type: beer and hard liquor Comment: patient ind Patient Tobacco Use Status: Never used Tobacco Tobacco use type: Cigarette Cigarette Packs Per Day: 0 Cigarettes Per Day: 0 e-Cigarette/Vaping Use: Never Used Second Hand Smoke Exposure: Yes Substance Use Type: Crack/Cocaine Advance Directives Date on File: 09/07/23 service: No Sexual orientation: Straight/Heterosexual Physical Exam ED Exam Exam: Appearance: Alert. Oriented X3. No acute distress. Eyes: Pupils equal, round and reactive to light. ENT: Pharynx normal. Neck: Normal inspection. Neck supple. No lymph nodes noted. No crepitus CVS: Normal heart rate and rhythm. Pulses normal. Normal S1 and S2 Respiratory: No respiratory distress. Breath sounds normal. No Wheezing. No rales Abdomen: Soft and nontender. No rigidity. No distention. good BS x4 Skin: Skin warm and dry. Normal skin color. Normal skin turgor. Extremities: No lower extremity edema. Neurovascular intact to all extremities. No Lacerations. No Rash Neuro: Oriented X 3. No motor deficit. No sensory deficit. Moving all extermities. No slurred speech Vital Signs: Vital Signs - 24 hr 03/15/25 15:47 03/15/25 18:16 03/15/25 20:09 Temperature 97.9 F 98.2 F Pulse Rate 113 H 103 H Respiratory Rate 18 12 20 Blood Pressure 113/67 121/72 Pulse Oximetry 94 95 Oxygen Delivery Method Room Air Room Air 03/15/25 20:11 03/15/25 21:14 Temperature 97.8 F Pulse Rate 110 H Respiratory Rate 18 18 Blood Pressure 136/88 Pulse Oximetry 95 Oxygen Delivery Method Room Air BMI result Body Mass Index 30.4 Course Course Course Narrative: Medical screening exam performed. Please refer to detailed history, exam, evaluation, and management by primary provider. History of alcoholic pancreatitis labs ordered. JS Medications Administered Generic Name Dose Route Start Last Admin Trade Name Freq PRN Reason Stop Dose Admin Lipase/Protease/Amylase 1 cap 03/16/25 17:00 03/17/25 08:40 Lipase/Prot/Amylase 24/76/120k 1 Cap Capsule.Dr PO 1 cap TIDWM ELIZABETH Administration Aripiprazole 10 mg 03/16/25 21:00 03/16/25 21:03 Aripiprazole 10 Mg Tablet PO 10 mg BEDTIME ELIZABETH Administration Bupropion HCl 300 mg 03/16/25 13:45 03/17/25 08:40 Bupropion Hcl Xl 300 Mg Tab.Er.24h PO 300 mg DAILY ELIZABETH Administration Doxepin HCl 50 mg 03/16/25 21:00 03/16/25 21:03 Doxepin Hcl 25 Mg Capsule PO 50 mg BEDTIME ELIZABETH Administration Enoxaparin Sodium 40 mg 03/15/25 22:00 03/16/25 21:06 Enoxaparin Sodium 40 Mg/0.4 Ml Syringe SUBCUT Not Given Q24H ELIZABETH Folic Acid 1 mg 03/16/25 09:00 03/17/25 08:40 Folic Acid 1 Mg Tablet PO 03/19/25 08:59 1 mg DAILY ELIZABETH Administration Gabapentin 600 mg 03/16/25 15:00 03/17/25 08:40 Gabapentin 600 Mg Tablet PO 600 mg TID ELIZABETH Administration Hydromorphone HCl 0.5 mg 03/15/25 21:59 03/17/25 08:39 Hydromorphone Hcl 1 Mg/Ml Syringe IVPUSH 0.5 mg Q4H PRN Administration Breakthrough Pain Protocol Dextrose/Lactated Ringer's 1,000 mls @ 100 mls/hr 03/17/25 06:00 03/17/25 06:07 D5lr IVCONT 100 mls/hr .Q10H ELIZABETH Administration Lamotrigine 75 mg 03/16/25 21:00 03/16/25 21:03 Lamotrigine 25 Mg Tablet PO 75 mg BEDTIME ELIZABETH Administration Lorazepam 1 mg 03/16/25 00:15 03/17/25 06:56 Lorazepam 1 Mg Tablet PO 03/20/25 00:14 Not Given Q6H ELIZABETH Taper Melatonin 6 mg 03/15/25 21:59 03/16/25 21:03 Melatonin 3 Mg Tablet PO 6 mg BEDTIME PRN Administration Insomnia Multivitamins/Vitamin C 1 tab 03/16/25 09:00 03/17/25 08:40 Multivitamin Tablet PO 03/19/25 08:59 1 tab DAILY ELIZABETH Administration Ondansetron HCl 4 mg 03/15/25 21:59 03/16/25 16:37 Ondansetron Hcl 4 Mg/2 Ml Vial IVPUSH 4 mg Q8H PRN Administration Nausea and Vomiting Pantoprazole Sodium 40 mg 03/16/25 06:30 03/17/25 06:07 Pantoprazole Sodium 40 Mg/10 Ml Vial IVPUSH 40 mg DAILY@0630 ELIZABETH Administration Prazosin HCl 5 mg 03/16/25 21:00 03/16/25 21:24 Prazosin Hcl 5 Mg Capsule PO 5 mg BEDTIME ELIZABETH Administration Protocol Sodium Chloride 3 ml 03/16/25 00:00 03/17/25 08:40 0.9 % Sodium Chloride Flush 3 Ml Syringe IVFLUSH 3 ml QSHIFT ELIZABETH Administration Thiamine HCl 100 mg 03/16/25 09:00 03/17/25 08:40 Thiamine Hcl 100 Mg Tablet PO 03/19/25 08:59 100 mg DAILY ELIZABETH Administration Trazodone HCl 150 mg 03/16/25 21:00 03/16/25 21:24 Trazodone Hcl 50 Mg Tablet PO 150 mg BEDTIME ELIZABETH Administration Discontinued Medications Generic Name Dose Route Start Last Admin Trade Name Freq PRN Reason Stop Dose Admin Hydromorphone HCl 0.5 mg 03/15/25 19:01 03/15/25 20:09 Hydromorphone Hcl 0.5 Mg/0.5 Ml Syringe IVPUSH 03/15/25 19:02 0.5 mg ONCE ONE Administration Protocol Hydromorphone HCl 1 mg 03/15/25 20:55 03/15/25 21:14 Hydromorphone Hcl 1 Mg/Ml Syringe IVPUSH 03/15/25 20:56 1 mg ONCE ONE Administration Protocol Sodium Chloride 1,000 mls @ 999 mls/hr 03/15/25 19:15 03/15/25 22:19 Ns IV 03/15/25 20:15 Infused .Q1H1M ELIZABETH Infusion Dextrose/Sodium Chloride 1,000 mls @ 100 mls/hr 03/15/25 22:00 03/17/25 06:01 D51/2ns IVCONT Infused .Q10H ELIZABETH Infusion Iohexol 100 ml 03/15/25 20:24 03/15/25 20:25 Iohexol 350 Mg/Ml 100 Ml Infus..Btl IV 03/15/25 20:25 100 ml ONCE ONE Administration Lorazepam 2 mg 03/15/25 21:59 03/15/25 22:49 Lorazepam 1 Mg Tablet PO 03/15/25 22:00 2 mg ONCE ONE Administration Metoclopramide HCl 10 mg 03/15/25 21:16 03/15/25 21:17 Metoclopramide Hcl 10 Mg/2 Ml Vial IVPUSH 03/15/25 21:17 10 mg ONCE ONE Administration Ondansetron HCl 4 mg 03/15/25 19:02 03/15/25 20:10 Ondansetron Hcl 4 Mg/2 Ml Vial IVPUSH 03/15/25 19:03 4 mg ONCE ONE Administration Medical Decision Making Medical Decision Making MDM Narrative: Patient's alcohol was over 200. Has a abdominal pain. Lipase is actually normal. There is no evidence for acute pancreatitis. Will get CT scan will give pain medication. Will monitor carefully. I received sign-out from my colleague Dr. Milian Patient has received multiple doses of Dilaudid, Zofran and Reglan Lipase within normal limits. CT scan does not show any pseudocysts or pancreatic necrosis. There is mild peripancreatic stranding Physical exam, patient is still has significant abdominal pain and is nauseous. I discussed the above-mentioned with our hospitalist Dr. Camarillo Differential Diagnosis Differential Diagnoses: The differential diagnosis associated with the presentation includes (Pancreatic cyst, pancreatic necrosis, acute on chronic pancreatitis, peptic ulcer disease) Admission/Observation Consideration of admission/observation: Escalation of care including admission/observation considered Consult Healthcare Provider Management of the patient was discussed with: Hospitalist Lab Data MDM Lab Attestation statement: I reviewed the patient's lab results. 03/16/25 03:32 03/16/25 03:32 Labs: Lab Results 03/15/25 Range/Units 16:01 WBC 13.8 H (4.8-10.8) X10*3/uL RBC 4.58 D (4.20-5.50) X10*6/uL Hgb 13.1 D (12.0-16.0) g/dl Hct 39.8 D (37.0-47.0) % MCV 86.9 (80.0-98.0) fL MCH 28.6 (27.0-33.0) pg MCHC 32.9 (31.0-35.0) g/dl RDW 15.2 (11.0-16.0) % Plt Count 357 D (160-400) X10*3/uL MPV 9.8 (9.4-12.3) fL Immature Gran % (Auto) 0.7 H (0.0-0.4) % Neut % (Auto) 65.0 (45-73) % Lymph % (Auto) 25.8 (20-40) % [place] % (Auto) 6.5 (2-11) % Eos % (Auto) 1.5 (0-4) % Baso % (Auto) 0.5 (0-2) % Lymph # (Auto) 3.6 (1.2-4.9) X10*3/uL [place] # (Auto) 0.9 (0.1-1.2) X10*3/uL Eos # (Auto) 0.2 (0.0-0.4) X10*3/uL Baso # (Auto) 0.1 (0.0-0.2) X10*3/uL Abs Immat Gran (auto) 0.10 H (0.00-0.03) X10*3/uL Absolute Neuts (auto) 8.9 H (2.0-8.3) x10*3/uL Absolute Nucleated RBC 0.000 (0.0-0.012) X10*3/uL Nucleated RBC % (auto) 0.0 (0.0-0.2) /100WBC Sodium 137 (135-145) mmol/L Potassium 3.5 (3.3-5.1) mmol/L Chloride 98 (96-108) mmol/L Carbon Dioxide 23 (22-29) mmol/L Anion Gap 20 (12-20) BUN 4 L (9-16) mg/dL Creatinine 0.64 (0.5-1.4) mg/dL Estim Creat Clear Calc 116.8 Estimated GFR > 60 Random Glucose 166 H (60-115) mg/dL Calcium 9.4 D (8.4-10.2) mg/dL Total Bilirubin 0.9 (0.0-1.0) mg/dL AST 75 H (5-31) U/L ALT 24 (0-31) U/L Alkaline Phosphatase 189 H (39-117) U/L Total Protein 6.9 (6.5-8.0) g/dL Albumin 4.0 (3.5-5.0) g/dL Lipase 12 (8-78) U/L Beta HCG, Quant 4 mIU/mL Ethyl Alcohol 212 mg/dL Independent Interpretation I performed an independent interpretation of an: CT Scan Radiology Impression Discussion of test interpretation with radiology: I have reviewed the radiologist's reading. Radiologist Impression: LIMITED CHEST: Lung bases are clear. LIVER: Diffuse hypoattenuation suggesting steatosis. BILIARY: No gallbladder wall thickening, radiopaque stone, or ductal dilatation. PANCREAS: Atrophic parenchyma. Scattered calcification. There is mild peripancreatic inflammatory stranding. No fluid collection. SPLEEN: No splenomegaly. KIDNEYS: No hydronephrosis or radiopaque stone. Bilateral cortical lobulation. ADRENALS: No nodule. VASCULAR: No aneurysm. RETROPERITONEUM: No lymphadenopathy or mass. BOWEL/MESENTERY: No evidence of obstruction. No free fluid or air. Normal appendix. ABDOMINAL WALL: No mass or significant abnormality. URINARY BLADDER: No focal wall thickening. PELVIC NODES: No pelvic lymphadenopathy. PELVIC ORGANS: Normal for age. BONES: No acute fracture. OTHER: Negative. IMPRESSION: Mild peripancreatic inflammatory stranding, correlate with laboratory values for acute pancreatitis Critical Care Time Critical Care Time Critical Care Time: Yes Total Critical Care Time: 45 Attestation: I have personally provided critical care time. Time includes review of lab data, radiology results, discussion with consultants, and monitoring for potential decompensation. Intervention performed as documented. Discharge Plan Discharge Clinical Impression: Acute on chronic pancreatitis Patient Disposition: Admitted As Inpatient Interventions: Admission Worksheet (ED) Last Done: 03/16/25 19:35 Discharge Date/Time: 03/16/25 20:52
[2025-03-15 16:20] LABS: MANUAL DIFF FLAG NO
[2025-03-15 16:33] LABS: Hematocrit 39.8 % (37.0-47.0); Hemoglobin 13.1 g/dl (12.0-16.0); Imm Gran Abs Auto 0.10 X10*3/uL (0.00-0.03); Imm Gran Pct Auto 0.7 % (0.0-0.4); Lymphocytes Absolute Auto 3.6 X10*3/uL (1.2-4.9); Mean Corpuscular HGB Conc 32.9 g/dl (31.0-35.0); Mean Corpuscular Hemoglobin 28.6 pg (27.0-33.0); Mean Corpuscular Volume 86.9 fL (80.0-98.0); NRBC Abs Auto 0.000 X10*3/uL (0.0-0.012); NRBC Pct Auto 0.0 /100WBC (0.0-0.2); Platelet Count 357 X10*3/uL (160-400); Red Blood Count 4.58 X10*6/uL (4.20-5.50); White Blood Count 13.8 X10*3/uL (4.8-10.8)
[2025-03-15 16:38] LABS: Alanine Aminotransferase 24 U/L (0-31); Albumin Level 4.0 g/dL (3.5-5.0); Alkaline Phosphatase 189 U/L (39-117); Anion Gap 20 (12-20); Aspartate Amino Transferase 75 U/L (5-31); Blood Urea Nitrogen 4 mg/dL (9-16); Calcium 9.4 mg/dL (8.4-10.2); Carbon Dioxide 23 mmol/L (22-29); Chloride 98 mmol/L (96-108); Creatinine Clr Calc Pharmacy 116.8; Estimated Glomerular Filt Rate > 60; Lipase 12 U/L (8-78); Potassium 3.5 mmol/L (3.3-5.1); Sodium 137 mmol/L (135-145); Total Protein 6.9 g/dL (6.5-8.0)
[2025-03-15 18:16] VITALS: BP 121/72; PULSE 103; RESP 12; TEMP 36.8; O2SAT 95
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
--- OUTSIDE RECORDS SUMMARY | 2025-03-15 18:40 | XMS_ITS | Data Portability ---
Author Organization KODI Haley s [address] Address [address] [place] [address] Care Team Providers Care Mock Up Builder Name Role Phone NING SCHNEIDERA Primary Care Provider Assessment No assessment recorded. Plan of Treatment Reminders Order Date Submit Date Provider Last Modified By Organization Details Last Modified Time Details Appointments None recorded. Lab None recorded. Referral None recorded. Procedures None recorded. Surgeries None recorded. Imaging None recorded. Medication Orders Lidocaine Viscous 2 % mucosal solution 2022 023 [facility] 3 [id number], [address] [place] [address], [phone], 13:56:49 valacyclovi r 1 gram tablet 2022 023 [facility] #[id number], [address] [place] [address], [id number], 3 13:56:50 Lidocaine Viscous 2 % mucosal solution 2022 023 [id number], [address] [place] [address], [phone], 20:01:27 Patient TargetsNo targets recorded. Patient Instructions Encounter Date Encounter Id Patient Instructions Last Modified By Organization Details Last Modified Time 11/17/2022 [id number] Based on your Presentation, Exam, and Lab [...] if you have any questions or concerns. Not available 11/17/2022 20:04:23 11/29/2022 [id number] canker sore: car e instructions [email or web address] Not available 11/29/2022 13:56:47 Reason for Referral None Reported. Problems Name Problem SNOMED Code Status Onset Date Resolution Date Notes Provider Name and Address Organization Details Recorded Time Pancreatitis 05993148 Active Katelynn Ruszala null, PA - [facility] 19:38:29 Acid reflux 179092188 Active Katelynn Ruszala null, PA - [facility] 19:38:40 Anxiety 59968023 Active Katelynn Ruszala null, PA - [facility] 19:38:47 Insomnia 517407941 Active Katelynn Ruszala null, PA - [facility] 19:38:55 Bipolar disorder 33374291 Active 2022 Guerline Batista null, PA - [facility] 3 13:11:03 Problem Notes None recorded. Procedures Surgical History Date Name Laterality Status Provider Name and Address Organization Details Recorded Time procedure on foot completed Katelynn Lozada PA - [facility] 11/17/2022 19:40:09 Imaging Results None recorded. Procedure Notes None recorded. Medical Equipment None Reported. Allergies Allergen ID Allergen Name Allergen Category Reaction Reaction Severity Criticality Documentation Date Start Date Code Code System Note Provider Name and Address Organization Details Recorded Time 071510 ibuprofen medicatio n Not available Not available Not available 11/17/2022 5640 RxNorm Katelynnlaron Lozada null, PA - [facility] 3 19:36:01 280040 acetamino phen medicatio n Not available Not available Not available 11/17/2022 161 RxNorm Katelynn Mauriciozala null, PA - [facility] 3 19:36:19 565491 PO[employer] environme nt,medica tion Not available Not available Not available 11/17/2022 98166 6 RxNorm Katelynn Mauriciozala null, PA - [facility] 3 19:36:27 Medications Name Sig Start Date Stop [...] blood by Pulse oximetry Heart rate Systolic And Diastolic Provider Name and Address Organization Details Last Updated DateTime 3 165.1 cm 28.3 kg/m2 07456.7 g 10 97.1 [degF] 18 /min 97 % 97 % 96 /min 122/91 mm[Hg] Katelynn Lozada PA - [facility] 3 19:43:08 Date Recorded Body height Body mass index (BMI) Body weight Pain severity - 0-10 verbal numeric rating [Score] - Reported Respiratory rate Oxygen saturation Oxygen saturation in Arterial blood by Pulse oximetry Heart rate Body temperature Systolic And Diastolic Provider Name and Address Organization Details Last Updated DateTime 3 165.1 cm 28.3 kg/m2 47494.7 g 9 18 /min 98 % 98 % 103 /min 98.1 [degF] 134/81 mm[Hg] Guerline Youngrufina PA - [facility] 3 13:17:58 Social History Question Answer Notes LastModified by [facility] Details LastModified Time Tobacco Smoking Status Current Every Day Smoker Katelynn herzog PA [facility] 11/17/2022 19:39:46 Have You Had Direct Contact, Or Contact During Intimacy, With Monkeypox Rash, Scabs, Or Body Fluids From A Person With Monkeypox? No Information not available 11/17/2022 How Much Tobacco Do You Smoke? 2 PPW Information not available 11/17/2022 Have You Recently Traveled Abroad? No Information not available 11/17/2022 Sex: Unknown Functional Status Question Answer Note LastModified by [facility] Details LastModified Time How many times per week do you consume alcohol? Less than 1 time per week Information not available 11/17/2022 What is your level of alcohol consumption? Occasional Information not available 11/17/2022 Mental Status None recorded. Family History Relationship [...] Influenza, split virus, quadrivalent, PF 02/12/2020 completed KODI Franz - [facility] 11/17/2022 19:35:39 Past Encounters Encounter ID Performer Location Encounter Start Date Encounter Closed Date Diagnosis/Indication Diagnosis SNOMED-CT Code Diagnosis ICD10 Code Diagnosis IMO Codes Diagnosis Note [id number] [address] [facility] [address] [place] [address] 01/09/2017 19:01:44 01/09/2017 20:34:26 [id number] [facility]ODI BALDWIN [address] [place] [address] 11/17/2022 19:16:22 11/17/2022 20:04:03 Aphthous ulcer of mouth 324041851 K12.0 Hand foot and mouth disease 337874651 B08.4 [id number] Alejandro Lagos MD [address] [place] [address] 11/29/2022 12:56:12 11/29/2022 14:01:12 Painful mouth 420066366 K13.79 Aphthous u lcer of mouth 884139078 K12.0 Health Concerns Section Related Observation LastModified by Organization Detai ls LastModified Time None Recorded Concern Status LastModified by Organization Details LastModified Time None Recorded Advance Directives Directive None Recorded Payers Insurance Date Sequence Insurance Name Policy Number Policy Ramirez Covered Member ID Ramirez Member ID Guarantor Name 11/17/2022 1 [facility] (MEDICAID REPLACEMENT - HMO) Ruifna Schaefer [id number] Rufina Schaefer 11/29/2022 1 [facility] (MEDICAID HMO) [id number] Rufina Schaefer [id number] Rufina Schaefer 11/18/2022 1 [facility] [id number] Rufina Schaefer [id number] Rufina Schaefer 11/17/2022 1 [place] [facility] Rufina Schaefer [id number] Rufina Schaefer Notes Date Note Type Note Provider Name and Address Organization Details Recorded Time 11/17/2022 text/html Generic HPI TemplateReported by [email or web address] y.o female pt presents with 8 days of painful white ulcerative lesions inside of mouth. Pt denies any other sx's. Tried OTC meds without relief. KODI BALDWIN [address] [place], [address], [facility] - [email or web address] 11/23/2022 13:47:39 11/29/2022 text/html Generic HPI TemplateReported by [email or web address] y.o female pt presents with2 weeks white ulcerative lesions inside of mouth. TRied lidocaine, hasnyt helped Pt denies any other sx's. Tried OTC meds without relief. Alejandro Lagos MD [address] [place], [address], [facility] - [facility] 11/29/2022 13:57:48 OBGyn Episode No OBEpisode recorded.
--- OUTSIDE RECORDS SUMMARY | 2025-03-15 18:40 | XMS_ITS | Clinical Summary ---
Author Organization [facility] Address [address] [place] [address] Care Team Providers Care Clinical Psychology Teacher Name Role Phone Unavailable Primary Care Provider [...]
--- NOTE | 2025-03-15 19:28 | PC.NURSE ---
this rn assumed care of pt, pt resting in stretcher, reports abdominal pain and nausea/vomiting x3 days. attempted multiple IV sticks, pt hard stick at this time, awaiting US guided iv
[2025-03-15 20:09] VITALS: RESP 20
[2025-03-15 20:11] VITALS: BP 136/88; PULSE 110; RESP 18; TEMP 36.6; O2SAT 95
[2025-03-15] MEDS: iohexoL 350 MG/ML 100 ML INFUS..BTL IV (20:25)
[2025-03-15 21:14] VITALS: RESP 18
--- NOTE | 2025-03-15 21:17 | PC.NURSE ---
pt reporting increased abdominal pain and nausea, MD Stoddard verbal order for 10mg relgan placed at this time and pt medicated per mar
--- NOTE | 2025-03-15 22:02 | PM.IMHP ---
History of Present Illness Date of Service: 03/15/25 Chief Complaint: Nausea/vomiting/abdominal pain 44-year-old female with a past medical history of alcohol use disorder, chronic pancreatitis, bipolar disorder, PTSD presented to the hospital with a chief complaint of nausea/vomiting/abdominal discomfort for about 1 week. Patient reports decreased intake. Mentions is still drinking intermittently. Has had drank prior to coming to the hospital. Denies any chest pain or palpitations. Reports her abdominal pain is diffuse but mostly in the upper abdomen. Denies any diarrhea. Denies any fevers. Review of all other systems is negative except mentioned above ER course: Per ER team, patient noted to have mild abdominal discomfort; lipase within normal limits; CT abdomen pelvis showed findings concerning for pancreatitis. Given pain medications. [facility] Medical History Alcohol use disorder Barbiturate abuse Cocaine use disorder Pancreatitis Elevated LFTs Alcohol use disorder Chronic pancreatitis Alcohol abuse Alcoholism Suicidal ideations Intentional overdose Chronic cough Chronic pancreatitis Cocaine use Alcohol abuse Obesity (BMI 30.0-34.9) Pancreatitis Back pain Alcohol use disorder, severe, dependence Gastritis Gastritis Endometriosis Constipation Anxiety Depression Bipolar disorder Suicidal behavior PTSD (post-traumatic stress disorder) Surgical History History of ankle surgery Social History Household Members: Spouse Housing: House Do you presently have visiting nurse or other home services: No Alcohol intake: current Alcohol intake frequency: a few times a week Alcohol type: beer and hard liquor Comment: patient ind Patient Tobacco Use Status: Current someday Tobacco user Tobacco use type: Cigarette Cigarette Packs Per Day: 0 Cigarettes Per Day: 0 Smoked in Last 30 Days: No e-Cigarette/Vaping Use: Never Used Second Hand Smoke Exposure: Yes Use of substances other than those prescribed or required for medical reasons: No Substance Use Type: Crack/Cocaine Advance Directives: Yes Advance Directives on File: Yes Advance Directives Date on File: 09/07/23 Patient : No service: No Sexual orientation: Straight/Heterosexual Meds Allergies Allergy/AdvReac Type Severity Reaction Status Date / Time ibuprofen AdvReac Stomach Verified 03/15/25 15:49 Upset morphine AdvReac Gastrointestinal Verified 03/15/25 15:49 Upset bees Allergy Severe Anaphylaxis Uncoded 02/08/25 17:27 Home Medications ?Medication ?Instructions ?Recorded ?Confirmed ?Last Taken ?Type aripiprazole 10 mg tablet 10 mg PO BEDTIME 05/21/21 02/08/25 01/23/25 History doxepin 50 mg capsule 50 mg PO BEDTIME 05/21/21 02/08/25 01/23/25 History gabapentin 600 mg tablet 600 mg PO TID 05/21/21 02/08/25 01/23/25 History lorazepam 1 mg tablet 1 mg PO TID Anxiety 05/21/21 02/08/25 01/23/25 History pantoprazole 40 mg tablet,delayed 40 mg PO DAILY@0630 05/21/21 02/08/25 01/23/25 History release bupropion HCl 300 mg 24 hr tablet, 300 mg PO DAILY 09/07/23 02/08/25 01/23/25 History extended release folic acid 1 mg tablet 1 mg PO DAILY 09/07/23 02/08/25 01/23/25 History lamotrigine 25 mg tablet 75 mg PO BEDTIME 09/07/23 02/08/25 01/23/25 History dqwtlq-krnawznr-warpvnd 1 cap PO TIDWM 08/23/24 02/08/25 01/23/25 History (pork)36,000-114,000-180k unit capsule,del rel (Creon) trazodone 150 mg tablet 150 mg PO BEDTIME 08/23/24 02/08/25 01/23/25 History albuterol sulfate 90 mcg/actuation 2 puff inhalation Q4H PRN 11/15/24 02/08/25 01/23/25 History aerosol inhaler (Ventolin HFA) Shortness Of Breath Or Wheezing melatonin 3 mg tablet 15 mg PO BEDTIME PRN Sleep 12/27/24 02/08/25 01/23/25 History thiamine HCl (vitamin B1) 100 mg 100 mg PO BID 12/27/24 02/08/25 01/23/25 History tablet multivitamin 1 tab PO DAILY 01/24/25 02/08/25 01/23/25 History Physical Exam Vital Signs and Narrative: Vital Signs: Last Vital Signs Temp 97.8 F 03/15/25 20:11 Pulse 110 H 03/15/25 20:11 Resp 18 03/15/25 21:14 BP 136/88 03/15/25 20:11 Pulse Ox 95 03/15/25 20:11 O2 Del Method Room Air 03/15/25 20:11 BMI result Body Mass Index 30.4 Gen: Appears be in no acute distress HEENT: NCAT, Moist mucosa. Pulmonary: Vesicular breath sounds, fair air entry CVS: Normal S1-S2 Abdomen: BS+, Soft, mildly tender diffusely Extremities: Warm well perfused Neuro: Alert and awake. Results Labs 03/15/25 16:01 03/15/25 16:01 Labs: Laboratory Results - last 24 hr 03/15/25 16:01 MCV 86.9 MCH 28.6 MCHC 32.9 RDW 15.2 Plt Count 357 D MPV 9.8 Immature Gran % (Auto) 0.7 H Neut % (Auto) 65.0 Lymph % (Auto) 25.8 [place] % (Auto) 6.5 Eos % (Auto) 1.5 Baso % (Auto) 0.5 Lymph # (Auto) 3.6 [place] # (Auto) 0.9 Eos # (Auto) 0.2 Baso # (Auto) 0.1 Abs Immat Gran (auto) 0.10 H Absolute Neuts (auto) 8.9 H Absolute Nucleated RBC 0.000 Nucleated RBC % (auto) 0.0 Anion Gap 20 Estim Creat Clear Calc 116.8 Estimated GFR > 60 Random Glucose 166 H Calcium 9.4 D Total Bilirubin 0.9 AST 75 H ALT 24 Alkaline Phosphatase 189 H Total Protein 6.9 Albumin 4.0 Lipase 12 Beta HCG, Quant 4 Ethyl Alcohol 212 Assessment and Plan (1) Acute on chronic pancreatitis: Status: Acute Plan 44-year-old female with a past medical history of alcohol use disorder, chronic pancreatitis, bipolar disorder, PTSD presented to the hospital with a chief complaint of nausea/vomiting/abdominal discomfort for about 1 week. Admitted for following Acute on chronic pancreatitis: Pain control IV fluids Advanced diet as tolerated Alcohol use disorder: Monitor on CIWA protocol. Thiamine folate and multivitamins. Med reconciliation: Continue home medications once med rec is completed. DVT prophylaxis: Lovenox Code status: Full code Quality Stroke Does the patient have a stroke diagnosis?: No VTE Prior VTE?: No VTE Risk Level:: Medical - moderate - high VTE Device Contraindication: Treatment Not Indicated VTE Drug Contraindication: N/A - Med Ordered
[2025-03-15] MEDS: Dextrose 5 % and 0.45 % NaCl 1,000 ML 100 ML IVCONT (22:48)
[2025-03-15 22:51] VITALS: RESP 17
[2025-03-16] VITALS (11 sets, daily range): BP systolic 106–125; BP diastolic 7–82; PULSE 86–100; RESP 13–189; TEMP 36.6–37.5; O2SAT 92–100; BMI 31.4; BMI 31.0
[2025-03-16 04:35] LABS: MANUAL DIFF FLAG NO
[2025-03-16 04:52] LABS: Alanine Aminotransferase 15 U/L (0-31); Albumin Level 3.2 g/dL (3.5-5.0); Alkaline Phosphatase 146 U/L (39-117); Anion Gap 15 (12-20); Aspartate Amino Transferase 56 U/L (5-31); Blood Urea Nitrogen 4 mg/dL (9-16); Calcium 8.0 mg/dL (8.4-10.2); Carbon Dioxide 25 mmol/L (22-29); Chloride 102 mmol/L (96-108); Creatinine Clr Calc Pharmacy 122.6; Estimated Glomerular Filt Rate > 60; Potassium 4.1 mmol/L (3.3-5.1); Sodium 138 mmol/L (135-145); Total Protein 5.7 g/dL (6.5-8.0)
[2025-03-16 04:53] LABS: Hematocrit 34.2 % (37.0-47.0); Hemoglobin 11.0 g/dl (12.0-16.0); Imm Gran Abs Auto 0.04 X10*3/uL (0.00-0.03); Imm Gran Pct Auto 0.4 % (0.0-0.4); Lymphocytes Absolute Auto 2.4 X10*3/uL (1.2-4.9); Mean Corpuscular HGB Conc 32.2 g/dl (31.0-35.0); Mean Corpuscular Hemoglobin 28.4 pg (27.0-33.0); Mean Corpuscular Volume 88.1 fL (80.0-98.0); NRBC Abs Auto 0.000 X10*3/uL (0.0-0.012); NRBC Pct Auto 0.0 /100WBC (0.0-0.2); Platelet Count 261 X10*3/uL (160-400); Red Blood Count 3.88 X10*6/uL (4.20-5.50); White Blood Count 9.9 X10*3/uL (4.8-10.8)
--- NOTE | 2025-03-16 07:11 | P.PNIM_ITS ---
Subjective Subjective Date of Service: 03/16/25 Interval History: f/u on acute pancreatitis and abdominal pain pain is still there Physical Exam 2 Exam: Exam: General: AO X 3, no acute distress Resp: CTA bilateral, no accessory muscles used CVS: S1,S2,RRR GI: soft, non tender, non distended Neuro: motor grossly intact, alert Psych: appropriate affect, appropriate insight Vital Signs: Vital Signs: Last Vital Signs Temp 98.6 F 03/16/25 06:27 Pulse 89 03/16/25 06:27 Resp 13 03/16/25 06:27 BP 117/7 L 03/16/25 06:27 Pulse Ox 98 03/16/25 06:27 O2 Del Method Room Air 03/16/25 06:27 BMI result Body Mass Index 30.4 Objective Data Active Medications Acetaminophen (Acetaminophen 325 Mg Tablet) 650 mg PO Q6H PRN PRN Reason: Pain, Mild 1-3,fever,headache Calcium Carbonate (Calcium Carbonate 750 Mg Tab.Chew) 750 mg PO Q4H PRN PRN Reason: Heartburn Enoxaparin Sodium (Enoxaparin Sodium 40 Mg/0.4 Ml Syringe) 40 mg SUBCUT Q24H ELIZABETH Last Admin: 03/15/25 22:49 Dose: Not Given Documented By: BRAD Non-Admin Reason: Patient Refused Folic Acid (Folic Acid 1 Mg Tablet) 1 mg PO DAILY [facility]ABETH Stop: 03/19/25 08:59 Hydromorphone HCl (Hydromorphone Hcl 1 Mg/Ml Syringe) 0.5 mg IVPUSH Q4H PRN; Protocol PRN Reason: Breakthrough Pain Last Admin: 03/16/25 04:14 Dose: 0.5 mg Documented By: BRAD Dextrose/Sodium Chloride (D51/2ns) 1,000 mls @ 100 mls/hr IVCONT .Q10H ELIZABETH Last Admin: 03/15/25 22:48 Dose: 100 mls/hr Documented By: BRAD Lorazepam (Lorazepam 1 Mg Tablet) 1 mg PO Q4H PRN PRN Reason: Breakthrough alcohol withdrawa Stop: 03/19/25 21:58 Lorazepam (Lorazepam 1 Mg Tablet) 1 mg PO Q4H ELIZABETH; Taper Stop: 03/20/25 00:14 Last Admin: 03/16/25 04:14 Dose: 1 mg Documented By: BRAD Magnesium Hydroxide (Milk Of Magnesia 30 Ml Oral.Susp) 30 ml PO DAILY PRN PRN Reason: Constipation Melatonin (Melatonin 3 Mg Tablet) 6 mg PO BEDTIME PRN PRN Reason: Insomnia Multivitamins/Vitamin C (Multivitamin Tablet) 1 tab PO DAILY [facility] Stop: 03/19/25 08:59 Ondansetron HCl (Ondansetron Hcl 4 Mg/2 Ml Vial) 4 mg IVPUSH Q8H PRN PRN Reason: Nausea and Vomiting Pantoprazole Sodium (Pantoprazole Sodium 40 Mg/10 Ml Vial) 40 mg IVPUSH DAILY@0630 [facility] Last Admin: 03/16/25 06:24 Dose: 40 mg Documented By: BRAD Sodium Chloride (0.9 % Sodium Chloride Flush 3 Ml Syringe) 3 ml IVFLUSH QSHIFT [facility] Last Admin: 03/16/25 00:36 Dose: Not Given Documented By: BRAD Non-Admin Reason: IV Running Thiamine HCl (Thiamine Hcl 100 Mg Tablet) 100 mg PO DAILY [facility] Stop: 03/19/25 08:59 Labs 03/16/25 03:32 03/16/25 03:32 Labs: Laboratory Results - last 24 hr 03/15/25 03/16/25 16:01 03:32 MCV 86.9 88.1 MCH 28.6 28.4 MCHC 32.9 32.2 RDW 15.2 15.3 Plt Count 357 D 261 D MPV 9.8 10.1 Immature Gran % (Auto) 0.7 H 0.4 Neut % (Auto) 65.0 63.2 Lymph % (Auto) 25.8 24.5 [place] % (Auto) 6.5 8.8 Eos % (Auto) 1.5 2.3 Baso % (Auto) 0.5 0.8 Lymph # (Auto) 3.6 2.4 [place] # (Auto) 0.9 0.9 Eos # (Auto) 0.2 0.2 Baso # (Auto) 0.1 0.1 Abs Immat Gran (auto) 0.10 H 0.04 H Absolute Neuts (auto) 8.9 H 6.2 Absolute Nucleated RBC 0.000 0.000 Nucleated RBC % (auto) 0.0 0.0 Anion Gap 20 15 Estim Creat Clear Calc 116.8 122.6 Estimated GFR > 60 > 60 Random Glucose 166 H 120 H Calcium 9.4 D 8.0 L D Total Bilirubin 0.9 1.1 H AST 75 H 56 H ALT 24 15 Alkaline Phosphatase 189 H 146 H Total Protein 6.9 5.7 L Albumin 4.0 3.2 L Lipase 12 Beta HCG, Quant 4 Ethyl Alcohol 212 Assessment and Plan (1) Acute on chronic pancreatitis: Status: Acute (2) Alcohol use disorder: Status: Acute Plan 44-year-old female with a past medical history of alcohol use disorder, chronic pancreatitis, bipolar disorder, PTSD presented to the hospital with a chief complaint of nausea/vomiting/abdominal discomfort for about 1 week. Admitted for following Acute on chronic pancreatitis Pain control with dilaudid and oxycodone IV fluids Advanced diet as tolerated, presently on liquid Alcohol use disorder: Monitor on CIWA protocol. Thiamine folate and multivitamins. 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 DVT prophylaxis: Lovenox Code status: Full code Quality Stroke Does the patient have a stroke diagnosis?: No VTE Prior VTE?: No VTE Risk Level:: Medical - moderate - high VTE Device Contraindication: Treatment Not Indicated VTE Drug Contraindication: N/A - Med Ordered
[2025-03-16] MEDS: Dextrose 5 % and 0.45 % NaCl 1,000 ML 100 ML IVCONT ×2 (08:23→18:04)
--- NOTE | 2025-03-16 09:44 | PHA.MEDREC ---
Pharmacy Consult ? Medication Reconciliation Pharmacy has completed the medication reconciliation. Spoke to patient at bedside, she named a lot of medications but not dosing/frequency. She named medications that have not been filled in a while but also alluded to being non-adherent.
--- NOTE | 2025-03-16 13:59 | MHC.CM.PN ---
Pt. lives with her , PCP confirmed: Anai Lane, HCP is on file and confirmed: Sharon. Pt. does not use home health services or DME, she can arrange a ride home at [place], DCP: home, self care, CM to follow for DC needs.
[2025-03-16] MEDS: buPROPion HCl XL 300 MG TAB.ER.24H PO (14:17)
--- NOTE | 2025-03-16 16:42 | PC.NURSE ---
Pt states dilaudid 0.5mg IV Q4hr is not sufficiently treating her pain. MD notified. No new orders.
[2025-03-16] MEDS: Lipase/Prot/Amylase 24/76/120K 1 CAP CAPSULE.DR PO (18:04)
--- NOTE | 2025-03-16 21:00 | PC.NURSE ---
pt arrived w/o IVF
[2025-03-17] VITALS (10 sets, daily range): BP systolic 94–106; BP diastolic 53–67; PULSE 93–106; RESP 14–18; TEMP 36.1–37.4; O2SAT 88–95
[2025-03-17] MEDS: Dextrose 5 % and 0.45 % NaCl 1,000 ML 100 ML IVCONT (01:07)
--- NOTE | 2025-03-17 02:54 | PC.NURSE ---
call doherty alerted, endorsing 9/10 pancreatitis pain. does not appear in distress. vitals charted. desat improved to 90% by sitting up to fowlers then placed on 2L NC. patient falling asleep during assessment. call doherty in reach, even nonlabored respirations, plan of care ongoing
[2025-03-17] MEDS: Dextrose 5 % and Lactated Ring 1,000 ML 100 ML IVCONT ×2 (06:07→15:49)
--- NOTE | 2025-03-17 06:17 | PC.NURSE ---
discussed soft BP and patient pain level as well as adherence to lorazepam taper. no meds at this time. pt explained implications of giving dilaudid and ativan when BP is already low. patient states understanding calmly. fluids changed. pt ambulated to bathroom steadily standby assist with no symptoms. now back in bed, refuses bed alarm, verbalized she will call for supervision with demonstrated use of call doherty
[2025-03-17] MEDS: Lipase/Prot/Amylase 24/76/120K 1 CAP CAPSULE.DR PO ×3 (08:40→16:03)
[2025-03-17] MEDS: buPROPion HCl XL 300 MG TAB.ER.24H PO (08:40)
[2025-03-17] MEDS: 0.9 % Sodium Chloride Flush 3 ML SYRINGE IVFLUSH (08:40)
--- NOTE | 2025-03-17 09:40 | P.PNIM_ITS ---
Subjective Subjective Date of Service: 03/17/25 Interval History: f/u on acute pancreatitis and abdominal pain claims persistent pain, but want to continue eating Physical Exam 2 Exam: Exam: General: AO X 3, no acute distress Resp: CTA bilateral, no accessory muscles used CVS: S1,S2,RRR GI: soft, non tender, non distended Neuro: motor grossly intact, alert Psych: appropriate affect, appropriate insight Vital Signs: Vital Signs: Last Vital Signs Temp 98.8 F 03/17/25 08:00 Pulse 100 03/17/25 08:00 Resp 18 03/17/25 08:00 BP 105/67 03/17/25 08:00 Pulse Ox 94 03/17/25 08:00 O2 Del Method Room Air 03/17/25 08:00 O2 Flow Rate 2 03/17/25 05:47 BMI result Body Mass Index 31.0 Objective Data Active Medications Acetaminophen (Acetaminophen 325 Mg Tablet) 650 mg PO Q6H PRN PRN Reason: Pain, Mild 1-3,fever,headache Albuterol Sulfate (Albuterol Sulfate 90 Mcg 8 Gm Inhaler) 2 puff INHALE Q4H PRN PRN Reason: Shortness Of Breath Or Wheezing Lipase/Protease/Amylase (Lipase/Prot/Amylase 24/76/120k 1 Cap Capsule.Dr) 1 cap PO TIDWM [facility] Last Admin: 03/17/25 08:40 Dose: 1 cap Documented By: CLARI Aripiprazole (Aripiprazole 10 Mg Tablet) 10 mg PO BEDTIME [facility] Last Admin: 03/16/25 21:03 Dose: 10 mg Documented By: GABRIEL Bupropion HCl (Bupropion Hcl Xl 300 Mg Tab.Er.24h) 300 mg PO DAILY [facility] Last Admin: 03/17/25 08:40 Dose: 300 mg Documented By: CLARI Calcium Carbonate (Calcium Carbonate 750 Mg Tab.Chew) 750 mg PO Q4H PRN PRN Reason: Heartburn Doxepin HCl (Doxepin Hcl 25 Mg Capsule) 50 mg PO BEDTIME [facility] Last Admin: 03/16/25 21:03 Dose: 50 mg Documented By: GABIREL Enoxaparin Sodium (Enoxaparin Sodium 40 Mg/0.4 Ml Syringe) 40 mg SUBCUT Q24H [facility] Last Admin: 03/16/25 21:06 Dose: Not Given Documented By: GABRIEL Non-Admin Reason: Patient Refused Folic Acid (Folic Acid 1 Mg Tablet) 1 mg PO DAILY [facility] Stop: 03/19/25 08:59 Last Admin: 03/17/25 08:40 Dose: 1 mg Documented By: CLARI Gabapentin (Gabapentin 600 Mg Tablet) 600 mg PO TID [facility] Last Admin: 03/17/25 08:40 Dose: 600 mg Documented By: CLARI Hydromorphone HCl (Hydromorphone Hcl 1 Mg/Ml Syringe) 0.5 mg IVPUSH Q4H PRN; Protocol PRN Reason: Breakthrough Pain Last Admin: 03/17/25 08:39 Dose: 0.5 mg Documented By: CLARI Dextrose/Lactated Ringer's (D5lr) 1,000 mls @ 100 mls/hr IVCONT .Q10H [facility] Last Admin: 03/17/25 06:07 Dose: 100 mls/hr Documented By: GABRIEL Lamotrigine (Lamotrigine 25 Mg Tablet) 75 mg PO BEDTIME [facility] Last Admin: 03/16/25 21:03 Dose: 75 mg Documented By: GABRIEL Lorazepam (Lorazepam 1 Mg Tablet) 1 mg PO Q4H PRN PRN Reason: Breakthrough alcohol withdrawa Stop: 03/19/25 21:58 Lorazepam (Lorazepam 1 Mg Tablet) 1 mg PO Q6H [facility]; Taper Stop: 03/20/25 00:14 Last Admin: 03/17/25 06:56 Dose: Not Given Documented By: GABRIEL Non-Admin Reason: Physician Held Med Magnesium Hydroxide (Milk Of Magnesia 30 Ml Oral.Susp) 30 ml PO DAILY PRN PRN Reason: Constipation Melatonin (Melatonin 3 Mg Tablet) 6 mg PO BEDTIME PRN PRN Reason: Insomnia Last Admin: 03/16/25 21:03 Dose: 6 mg Documented By: GABRIEL Multivitamins/Vitamin C (Multivitamin Tablet) 1 tab PO DAILY [facility] Stop: 03/19/25 08:59 Last Admin: 03/17/25 08:40 Dose: 1 tab Documented By: CLARI Ondansetron HCl (Ondansetron Hcl 4 Mg/2 Ml Vial) 4 mg IVPUSH Q8H PRN PRN Reason: Nausea and Vomiting Last Admin: 03/16/25 16:37 Dose: 4 mg Documented By: KRYSTIAN Pantoprazole Sodium (Pantoprazole Sodium 40 Mg/10 Ml Vial) 40 mg IVPUSH DAILY@0630 [facility] Last Admin: 03/17/25 06:07 Dose: 40 mg Documented By: GABRIEL Prazosin HCl (Prazosin Hcl 5 Mg Capsule) 5 mg PO BEDTIME [facility]; Protocol Last Admin: 03/16/25 21:24 Dose: 5 mg Documented By: GABRIEL Sodium Chloride (0.9 % Sodium Chloride Flush 3 Ml Syringe) 3 ml IVFLUSH QSHIFT [facility] Last Admin: 03/17/25 08:40 Dose: 3 ml Documented By: CLARI Thiamine HCl (Thiamine Hcl 100 Mg Tablet) 100 mg PO DAILY [facility] Stop: 03/19/25 08:59 Last Admin: 03/17/25 08:40 Dose: 100 mg Documented By: CLARI Trazodone HCl (Trazodone Hcl 50 Mg Tablet) 150 mg PO BEDTIME [facility] Last Admin: 03/16/25 21:24 Dose: 150 mg Documented By: GABRIEL Labs 03/16/25 03:32 03/16/25 03:32 Labs: Laboratory Results - last 24 hr 03/15/25 03/16/25 16:01 03:32 MCV 86.9 88.1 MCH 28.6 28.4 MCHC 32.9 32.2 RDW 15.2 15.3 Plt Count 357 D 261 D MPV 9.8 10.1 Immature Gran % (Auto) 0.7 H 0.4 Neut % (Auto) 65.0 63.2 Lymph % (Auto) 25.8 24.5 [place] % (Auto) 6.5 8.8 Eos % (Auto) 1.5 2.3 Baso % (Auto) 0.5 0.8 Lymph # (Auto) 3.6 2.4 [place] # (Auto) 0.9 0.9 Eos # (Auto) 0.2 0.2 Baso # (Auto) 0.1 0.1 Abs Immat Gran (auto) 0.10 H 0.04 H Absolute Neuts (auto) 8.9 H 6.2 Absolute Nucleated RBC 0.000 0.000 Nucleated RBC % (auto) 0.0 0.0 Anion Gap 20 15 Estim Creat Clear Calc 116.8 122.6 Estimated GFR > 60 > 60 Random Glucose 166 H 120 H Calcium 9.4 D 8.0 L D Total Bilirubin 0.9 1.1 H AST 75 H 56 H ALT 24 15 Alkaline Phosphatase 189 H 146 H Total Protein 6.9 5.7 L Albumin 4.0 3.2 L Lipase 12 Beta HCG, Quant 4 Ethyl Alcohol 212 Assessment and Plan (1) Acute on chronic pancreatitis: Status: Acute (2) Alcohol use disorder: Status: Acute Plan 44-year-old female with a past medical history of alcohol use disorder, chronic pancreatitis, bipolar disorder, PTSD presented to the hospital with a chief complaint of nausea/vomiting/abdominal discomfort for about 1 week. Admitted for following Acute on chronic pancreatitis with normal Lipse Pain control with dilaudid and oxycodone, escalate IV fluids , advance diet as angella Alcohol use disorder: Monitor on CIWA protocol. No sings of withdrawal at this time. Thiamine folate and multivitamins. 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 DVT prophylaxis: Lovenox Code status: Full code Out of bed ambulate, does not need tele Quality Stroke Does the patient have a stroke diagnosis?: No VTE Prior VTE?: No VTE Risk Level:: Medical - moderate - high VTE Device Contraindication: Treatment Not Indicated VTE Drug Contraindication: N/A - Med Ordered
--- NOTE | 2025-03-17 10:24 | MHC.CM.PN ---
Per ROUNDS discussion, Patient is not yet medically cleared for dc (advancing diet); home is the goal and CM will continue to follow.
[2025-03-18] MEDS: Dextrose 5 % and Lactated Ring 1,000 ML 100 ML IVCONT (01:56)
[2025-03-18 03:58] VITALS: BP 103/62; PULSE 86; RESP 18; TEMP 36.9; O2SAT 95
[2025-03-18] MEDS: Lipase/Prot/Amylase 24/76/120K 1 CAP CAPSULE.DR PO (07:31)
[2025-03-18] MEDS: buPROPion HCl XL 300 MG TAB.ER.24H PO (07:32)
[2025-03-18] MEDS: 0.9 % Sodium Chloride Flush 3 ML SYRINGE IVFLUSH (07:33)
[2025-03-18 07:47] VITALS: BP 109/64; PULSE 86; RESP 16; TEMP 36.8; O2SAT 93
--- NOTE | 2025-03-18 10:58 | P.DS_ITS ---
DS: Providers Provider Date of Service: 03/18/25 Date of admission: 03/15/25 21:59 Date of discharge: 03/18/25 Primary care physician: Anai Lane NP DS: Diagnosis Discharge Diagnosis (1) Acute on chronic pancreatitis: Status: Acute (2) Alcohol use disorder: Status: Acute DS: Summary Hospital Course Hospital Course: Admission HPI Chief Complaint: Nausea/vomiting/abdominal pain 44-year-old female with a past medical history of alcohol use disorder, chronic pancreatitis, bipolar disorder, PTSD presented to the hospital with a chief complaint of nausea/vomiting/abdominal discomfort for about 1 week. Patient reports decreased intake. Mentions is still drinking intermittently. Has had drank prior to coming to the hospital. Denies any chest pain or palpitations. Reports her abdominal pain is diffuse but mostly in the upper abdomen. Denies any diarrhea. Denies any fevers. Review of all other systems is negative except mentioned above ER course: Per ER team, patient noted to have mild abdominal discomfort; lipase within normal limits; CT abdomen pelvis showed findings concerning for pancreatitis. Given pain medications. Hospital course: Patient presented with abdominal pain, lipase level was unremarkable however a CT of the abdomen and pelvis showed Mild peripancreatic inflammatory stranding, correlate with laboratory values for acute pancreatitis patient was hospitalized and treated with IV fluid, IV pain medication and antiemetics until she improved and then her diet was advanced from liquid diet to now regular diet which she is tolerating her pain is significantly better. She will be discharged home. She is advised to avoid alcohol and to follow through resources given to her to stay sober. Final diagnoses: Acute on chronic pancreatitis Alcohol use disorder With disorders Time Attestation Discharge Coordination Time (in mins): 40 Quality: Safe Use of Opioids Does Pt have an Active Cancer Diagnosis on the Problem List?: No Quality: Stroke Does the patient have a stroke diagnosis?: No Physical Exam Vital Signs: Vital Signs: Last Vital Signs Temp 98.3 F 03/18/25 07:47 Pulse 86 03/18/25 07:47 Resp 16 03/18/25 07:47 BP 109/64 03/18/25 07:47 Pulse Ox 93 03/18/25 07:47 O2 Del Method Room Air 03/18/25 07:47 O2 Flow Rate 2 03/17/25 05:47 BMI result Body Mass Index 31.0 Const: Other: General: AO X 3, no acute distress Resp: CTA bilateral CVS: S1,S2,RRR GI: +BS, NT, no distention Skin: No rash Neuro: motor grossly intact Psych: appropriate affect DS: Data Data Completed and Pending Completed studies during hospitalization [Text1]: Procedures Detoxification Services for Substance Abuse Treatment (01/24/25) Discharge Plan Discharge Anticipated Discharge Date/Time: 03/18/25 10:59 Patient Disposition: Home, Self-Care Discharge Diagnosis: Acute on chronic pancreatitis, alcohol use disorer Referrals: Anai Lane [employer] [Primary Care Provider, Medical] - 1 Week Discharge Medications: Continued prazosin 5 mg Capsule 5 mg PO BEDTIME 30 Days Qty: 30 0RF doxepin 50 mg capsule 50 mg PO BEDTIME gabapentin 600 mg tablet 600 mg PO TID aripiprazole 10 mg tablet 10 mg PO BEDTIME lorazepam 1 mg tablet 1 mg PO TID PRN (Reason: Anxiety) pantoprazole 40 mg Tablet,Delayed Release (Dr/Ec) 40 mg PO DAILY@0630 trazodone 150 mg tablet 150 mg PO BEDTIME Creon 36,000-114,000- 180,000 unit capsule,delayed release(DR/EC) 1 cap PO TIDWM albuterol sulfate [Ventolin HFA] 90 mcg/actuation HFA aerosol inhaler 2 puff INHALATION Q4H PRN (Reason: Shortness Of Breath Or Wheezing) thiamine HCl (vitamin B1) 100 mg tablet 100 mg PO DAILY melatonin 3 mg Tablet 15 mg PO BEDTIME PRN (Reason: Sleep) multivitamin Tablet 1 tab PO DAILY lamotrigine 25 mg tablet 75 mg PO BEDTIME folic acid 1 mg tablet 1 mg PO DAILY bupropion HCl 300 mg tablet extended release 24 hr 300 mg PO DAILY Discharge Orders: Discharge Order (Routine); Ordered 03/18/25 Ordered By: Mihir Freitas Diet: Low fat, low cholesterol Activity on Discharge: As tolerated Stand Alone Forms: Patient Portal Discharge page Print Language: Sami Care Plan Goals: recovery from pancreatitis and avoidance of alcohol Health Concerns: Recurrent acute on chronic pancreatitis Alcohol use disorder Plan of Treatment: Low-fat diet, avoid alcohol follow-through resources given to you to stay sober Follow-up with your primary care physician, call for appointment Assessment: See above
--- NOTE | 2025-03-18 11:56 | MHC.CM.PN ---
DP: PT IS MEDICALLY CLEARED FOR DC HOME, NO SERVICES. PT HAS OWN RIDE HOME.
== END 2025-03-18 13:14 | disposition home or self-care (01) | DRG 282 ==
LOC: HO.ED 22:02 → HO.EDOVER 22:15 → HO.IMC 03-16 19:45 → HO.S3 03-17 14:17
PROVIDERS: Emergency Medicine Emergency Medical Services; Physician Assistant; Admitting Provider Hospitalist; Emergency Provider Emergency Medicine; PCP Nurse Practitioner Adult Health; Visit Provider Internal Medicine
DX: K85.90 Acute pancreatitis without necrosis or infection, unspecified (principal); F10.20 Alcohol dependence, uncomplicated; F31.9 Bipolar disorder, unspecified; F39 Unspecified mood [affective] disorder; Y90.7 Blood alcohol level of 200-239 mg/100 ml; K86.1 Other chronic pancreatitis; F43.10 Post-traumatic stress disorder, unspecified; Z79.899 Other long term (current) drug therapy
CPT/HCPCS: 36415; 74177; 80053; 80307; 83690; 84702; 85025; 99285; J1171; J2405; J2470; J2765; Q9967; S9485

== ENCOUNTER → 2025-03-15 19:01 | Outpatient (BNV) | payer OTHER, SELFPAY | PROVIDERS: Emergency Provider Emergency Medicine; PCP Nurse Practitioner Adult Health; Visit Provider Student in an Organized Health Care Education/Training Program | DX: K85.90 Acute pancreatitis without necrosis or infection, unspecified (principal) | CPT/HCPCS: 74177 ==

== ENCOUNTER → 2025-03-15 21:59 | Outpatient (BNV) | payer OTHER, SELFPAY | PROVIDERS: Admitting Provider Hospitalist; Emergency Provider Emergency Medicine; PCP Nurse Practitioner Adult Health; Visit Provider Internal Medicine | DX: K85.90 Acute pancreatitis without necrosis or infection, unspecified (principal); K86.1 Other chronic pancreatitis; F10.90 Alcohol use, unspecified, uncomplicated | CPT/HCPCS: 99223; 99232 ==

== ENCOUNTER 2025-03-31 16:38 | Inpatient (IN) | payer OTHER, SELFPAY ==
--- NOTE | ~2025-03-31 | CT_ITS ---
CLINICAL HISTORY: epigastric pain, hx recurrent pancratitis Exam: Contrast-enhanced CT abdomen and pelvis with multiplanar reformats. Comparison: 03/15/2025. Findings: CT abdomen: Lung bases are clear. Liver reveals similar hepatomegaly, with right hepatic lobe measuring 20.1 cm craniocaudad dimension. Similar diffuse hepatic hypoattenuation/steatosis. No focal lesions or ductal dilatation. Gallbladder appears unremarkable. A 6 mm calcific density of the medial aspect of the descending duodenum (4; 320), could represent choledochal stone although this has not definitive. This may be related to pancreatic calcification as seen on the prior exam common keeping with the history of chronic pancreatitis. No significant extrahepatic ductal dilatation. Spleen appears unremarkable. Pancreas reveals no definable peripancreatic stranding or CT evidence of pancreatitis. No evidence of necrosis. No focal lesions or significant ductal dilatation. Multifocal pancreatic parenchymal calcification are compatible with the history of chronic pancreatitis. Adrenal glands appear unremarkable. Kidneys appear unremarkable. No free intraperitoneal fluid or retroperitoneal masses or adenopathy. Abdominal aorta is normal caliber. Bowel loops reveal no abnormal wall thickening or distention. The appendix is not identified, however there is no secondary CT evidence of appendicitis. CT pelvis: Uterus and adnexal structures appear unremarkable. Urinary bladder is free of gross filling defects. No pelvic masses, fluid or adenopathy. Osseous structures reveal no destructive osseous lesions. Impression: 1. No definable CT evidence of pancreatitis. Diffuse pancreatic calcification are compatible with the history of chronic pancreatitis. 2. 6 mm calcific density medial to the descending duodenum could represent distal choledochal stone although this is indeterminate. If further evaluation is clinically warranted, consider MRCP. This document has been electronically signed by: Josep Murphy MD on 03/31/2025 19:23:12
--- NOTE | ~2025-03-31 | MR_ITS ---
EXAMINATION: MRCP HISTORY: rule out gallstone panc COMPARISON: Previous CT of the abdomen and pelvis most recent from yesterday and MRCP September 2023 TECHNIQUE: Axial gradient echo in and out of phase T1, axial T2 and fat suppressed T2, and coronal haste T2 with fat saturation images were obtained through the abdomen. 3D MRCP Reconstructed images and thick slab imaging of the biliary tree were obtained. FINDINGS: Enlarged liver with heterogeneous fatty infiltration. No focal liver lesion. Smooth liver contour. No intra or extrahepatic biliary duct dilatation. The common bile duct measures 4 mm. No filling defect in the common bile duct is seen. The gallbladder is normal. No gallstones. Upper normal size spleen measuring 11.8 cm in length. No signal abnormality or focal lesion. Atrophic changes of the pancreas. Dilated main pancreatic duct measuring up to 7 to 8 mm. Several filling defects in the main pancreatic duct which when compared with prior CT may correspond to stones. Dilated pancreatic side duct radicals. Appearance again suggestive of chronic pancreatitis. No signal changes in the pancreas or peripancreatic fat to suggest acute pancreatitis seen. Normal adrenal glands. Normal kidneys. No bowel wall thickening or distention. No ascites or adenopathy. Vascular structures are unremarkable. Bony structures are unremarkable. Lung bases are clear. MR/MR MRCP IMPRESSION: Normal gallbladder. No gallstones. No intra or extrahepatic biliary duct dilatation or common bile duct stone seen. Atrophic changes of the pancreas. Dilated main pancreatic duct measuring up to 8 mm. Findings suggestive of chronic pancreatitis. No evidence of acute pancreatitis seen. Electronically signed by: Chani Magana MD 04/01/2025 10:02 AM [facility] [place]
[2025-03-31 16:42] VITALS: BP 117/87; BP 136/82; PULSE 116; PULSE 127; RESP 20; TEMP 35.9; O2SAT 98; BMI 28.3
--- NOTE | 2025-03-31 17:00 | ED.ABDPAIN ---
HPI - Abdominal Pain General Chief Complaint: Abdominal Pain Stated Complaint: pancreatitis attack Time Seen by Provider: 03/31/25 16:55 Source: patient Mode of arrival: ambulatory Limitations: no limitations History of Present Illness ED Provider: Dr. Thania Stoddard HPI narrative: Patient comes to the emergency room complaining epigastric pain, nausea vomiting. Patient has a history of recurrent pancreatitis. Patient reports that she drank alcohol 2 days ago causing a flare. patient also reports nausea and vomiting. Patient states that she has pain radiating from the epigastric area towards the left side of the back. Denies fever, denies diarrhea. Related Data Home Medications ?Medication ?Instructions ?Recorded ?Confirmed aripiprazole 10 mg tablet 10 mg PO BEDTIME 05/21/21 03/16/25 doxepin 50 mg capsule 50 mg PO BEDTIME 05/21/21 03/16/25 gabapentin 600 mg tablet 600 mg PO TID 05/21/21 03/16/25 lorazepam 1 mg tablet 1 mg PO TID PRN Anxiety 05/21/21 03/16/25 pantoprazole 40 mg tablet,delayed 40 mg PO DAILY@0630 05/21/21 03/16/25 release bupropion HCl 300 mg 24 hr tablet, 300 mg PO DAILY 09/07/23 03/16/25 extended release folic acid 1 mg tablet 1 mg PO DAILY 09/07/23 03/16/25 lamotrigine 25 mg tablet 75 mg PO BEDTIME 09/07/23 03/16/25 [id number] 1 cap PO TIDWM 08/23/24 03/16/25 (pork)36,000-114,000-180k unit capsule,del rel (Creon) trazodone 150 mg tablet 150 mg PO BEDTIME 08/23/24 03/16/25 albuterol sulfate 90 mcg/actuation 2 puff inhalation Q4H PRN 11/15/24 03/16/25 aerosol inhaler (Ventolin HFA) Shortness Of Breath Or Wheezing melatonin 3 mg tablet 15 mg PO BEDTIME PRN Sleep 12/27/24 03/16/25 thiamine HCl (vitamin B1) 100 mg 100 mg PO DAILY 12/27/24 03/16/25 tablet multivitamin 1 tab PO DAILY 01/24/25 03/16/25 Previous Rx's ?Medication ?Instructions ?Recorded prazosin 5 mg capsule 5 mg PO BEDTIME 30 days #30 caps 02/18/20 Allergies Allergy/AdvReac Type Severity Reaction Status Date / Time ibuprofen AdvReac Stomach Verified 03/31/25 16:48 Upset morphine AdvReac Gastrointestinal Verified 03/31/25 16:48 Upset bees Allergy Severe Anaphylaxis Uncoded 03/31/25 16:48 Review of Systems Review of Systems Constitutional : No Weight loss, No Fever, No Chills, No Night Sweats, No Fatigue, No Malaise ENT/Mouth : No Hearing loss, No Ear Pain, No Nasal Congestion, No Sinus Pain, No Hoarseness, No sore throat, No Rhinorrhea, No Swallowing Difficulty Eyes: No Eye Pain, No Swelling, No Redness, No Foreign Body, No Discharge, No Vision Changes Cardiovascular : No Chest Pain, No SOB, No Dyspnea on Exertion, No Orthopnea, No Edema, No Palpitations Respiratory : No Cough, No Sputum, No Wheezing, No Smoke Exposure, No Dyspnea Gastrointestinal : Complaining of nausea, vomiting, no diarrhea, complaining of epigastric pain radiating towards the left side of the back. Genitourinary : no irregular bleeding, No Dysuria, No Urinary Frequency, No Hematuria, No Urinary Incontinence, No Urgency, No Flank Pain, No Urinary Flow Changes, No Hesitancy Musculoskeletal : No joint pain, No Myalgias, No Joint Swelling Skin : No Skin Lesions, No rash Neuro : No Weakness, No Numbness, No Paresthesias, No Loss of Consciousness, No Dizziness, No Headache Psych : No Anxiety/Panic, No Depression, No SI/HI/AH/VH, No Social Issues, Heme/Lymph: No Bruising, No Bleeding,No Lymphadenopathy Endocrine : No Polyuria, No Polydipsia, No Temperature Intolerance [facility] Past Medical History Medical History Alcohol use disorder Barbiturate abuse Cocaine use disorder Pancreatitis Elevated LFTs Alcohol use disorder Chronic pancreatitis Alcohol abuse Alcoholism Suicidal ideations Intentional overdose Chronic cough Chronic pancreatitis Cocaine use Alcohol abuse Obesity (BMI 30.0-34.9) Pancreatitis Back pain Alcohol use disorder, severe, dependence Gastritis Gastritis Endometriosis Constipation Anxiety Depression Bipolar disorder Suicidal behavior PTSD (post-traumatic stress disorder) Surgical History History of ankle surgery Social History Social History Household Members: None Housing: House Do you presently have visiting nurse or other home services: No Alcohol intake: current Alcohol intake frequency: a few times a week Alcohol type: beer and hard liquor Comment: pt continues to refuse bed alarm Patient Tobacco Use Status: Never used Tobacco Tobacco use type: Cigarette Cigarette Packs Per Day: 0 Cigarettes Per Day: 0 e-Cigarette/Vaping Use: Never Used Second Hand Smoke Exposure: Yes Substance Use Type: Crack/Cocaine Advance Directives: Yes Advance Directives on File: Yes Advance Directives Date on File: 09/07/23 Do you have a plan to hurt others: No Plan service: No Sexual orientation: Straight/Heterosexual Physical Exam ED Exam Exam: Appearance: Alert. Oriented X3. yelling and moaning Eyes: Pupils equal, round and reactive to light. ENT: Pharynx normal. Neck: Normal inspection. Neck supple. No lymph nodes noted. No crepitus CVS: Normal heart rate and rhythm. Pulses normal. Normal S1 and S2 Respiratory: No respiratory distress. Breath sounds normal. No Wheezing. No rales Abdomen: Soft, exaggerated response to very minimal palpation in the epigastric area. Skin: Skin warm and dry. Normal skin color. Normal skin turgor. Extremities: No lower extremity edema. No Lacerations. No Rash Neuro: Oriented X 3. No motor deficit. No sensory deficit. Moving all extremities. No slurred speech. CN 2 through 12 grossly intact Psych: calm, cooperative, normal affect Vital Signs: Vital Signs - 24 hr 03/31/25 16:42 03/31/25 19:14 Temperature 96.6 F L Pulse Rate 116 H 107 H Respiratory Rate 20 16 Blood Pressure 117/87 128/88 Pulse Oximetry 98 93 Oxygen Delivery Method Room Air Room Air BMI result Body Mass Index 28.3 Course Course Course Narrative: I discussed with the patient that we will do the workup to rule out any acute complications of pancreatitis such as cyst or nephrotic pancreatitis. Patient agrees with plan. Medical Decision Making Medical Decision Making [facility] Narrative: my interpretation of labs: Patient's white blood cell count 12.3, potassium 3.2, LFTs at baseline, lipase 9 CT scan of the abdomen did not show any evidence of acute pancreatitis, patient has diffuse pancreatic calcifications compatible with a history of coherent pancreatitis. There is a possible 6 mm calcific density in the duodenum which could represent distal choledochal stone, patient may need an MRCP. after Dilaudid, patient is still reporting significant abdominal pain, patient has not had any episodes of vomiting or diarrhea. I discussed the above-mentioned with our hospitalist Dr. Mckeon, patient being admitted Differential Diagnosis Differential Diagnoses: The differential diagnosis associated with the presentation includes ( pancreatitis, necrotizing pancreatitis, choledocholithiasis) Admission/Observation Consideration of admission/observation: Escalation of care including admission/observation considered Consult Healthcare Provider Management of the patient was discussed with: Hospitalist Lab Data MDM Lab Attestation statement: I reviewed the patient's lab results. 03/31/25 17:12 03/31/25 17:12 Labs: Lab Results 03/31/25 Range/Units 17:12 WBC 12.3 H (4.8-10.8) X10*3/uL RBC 4.65 (4.20-5.50) X10*6/uL Hgb 13.0 (12.0-16.0) g/dl Hct 39.7 (37.0-47.0) % MCV 85.4 (80.0-98.0) fL MCH 28.0 (27.0-33.0) pg MCHC 32.7 (31.0-35.0) g/dl RDW 15.5 (11.0-16.0) % Plt Count 405 H D (160-400) X10*3/uL MPV 9.5 (9.4-12.3) fL Immature Gran % (Auto) 0.5 H (0.0-0.4) % Neut % (Auto) 56.3 (45-73) % Lymph % (Auto) 29.9 (20-40) % [place] % (Auto) 10.6 (2-11) % Eos % (Auto) 1.9 (0-4) % Baso % (Auto) 0.8 (0-2) % Lymph # (Auto) 3.7 (1.2-4.9) X10*3/uL [place] # (Auto) 1.3 H (0.1-1.2) X10*3/uL Eos # (Auto) 0.2 (0.0-0.4) X10*3/uL Baso # (Auto) 0.1 (0.0-0.2) X10*3/uL Abs Immat Gran (auto) 0.06 H (0.00-0.03) X10*3/uL Absolute Neuts (auto) 6.9 (2.0-8.3) x10*3/uL Absolute Nucleated RBC 0.000 (0.0-0.012) X10*3/uL Nucleated RBC % (auto) 0.0 (0.0-0.2) /100WBC Sodium 140 (135-145) mmol/L Potassium 3.2 L D (3.3-5.1) mmol/L Chloride 100 (96-108) mmol/L Carbon Dioxide 25 (22-29) mmol/L Anion Gap 18 (12-20) BUN 6 L (9-16) mg/dL Creatinine 0.72 (0.5-1.4) mg/dL Estim Creat Clear Calc 100.2 Estimated GFR > 60 Random Glucose 193 H (60-115) mg/dL Calcium 9.7 D (8.4-10.2) mg/dL Total Bilirubin 0.7 (0.0-1.0) mg/dL Direct Bilirubin 0.4 (0.0-0.5) mg/dL AST 126 H (5-31) U/L ALT 49 H (0-31) U/L Alkaline Phosphatase 200 H (39-117) U/L Total Protein 7.5 (6.5-8.0) g/dL Albumin 4.1 (3.5-5.0) g/dL Lipase 9 (8-78) U/L Ethyl Alcohol 171 mg/dL Independent Interpretation I performed an independent interpretation of an: CT Scan Radiology Impression Discussion of test interpretation with radiology: I have reviewed the radiologist's reading. Radiologist Impression: 1. No definable CT evidence of pancreatitis. Diffuse pancreatic calcification are compatible with the history of chronic pancreatitis. 2. 6 mm calcific density medial to the descending duodenum could represent distal choledochal stone although this is indeterminate. If further evaluation is clinically warranted, consider MRCP. Medications Administered Discontinued Medications Generic Name Dose Route Start Last Admin Trade Name Freq PRN Reason Stop Dose Admin Hydromorphone HCl 0.5 mg 03/31/25 16:58 03/31/25 17:24 Hydromorphone Hcl 0.5 Mg/0.5 Ml Syringe IVPUSH 03/31/25 16:59 0.5 mg ONCE ONE Administration Protocol Sodium Chloride 1,000 mls @ 999 mls/hr 03/31/25 17:04 03/31/25 17:24 Ns IVCONT 03/31/25 18:04 999 mls/hr .Q1H1M ONE Administration Iohexol 100 ml 03/31/25 18:28 03/31/25 18:28 Iohexol 350 Mg/Ml 100 Ml Infus..Btl IV 03/31/25 18:29 85 ml ONCE ONE Administration Ondansetron HCl 4 mg 03/31/25 16:58 03/31/25 17:24 Ondansetron Hcl 4 Mg/2 Ml Vial IVPUSH 03/31/25 16:59 4 mg ONCE ONE Administration Critical Care Time Critical Care Time Critical Care Time: Yes Total Critical Care Time: 60 Attestation: Appearance: Alert. Oriented X3. No acute distress. Eyes: Pupils equal, round and reactive to light. ENT: Pharynx normal. Neck: Normal inspection. Neck supple. No lymph nodes noted. No crepitus CVS: Normal heart rate and rhythm. Pulses normal. Normal S1 and S2 Respiratory: No respiratory distress. Breath sounds normal. No Wheezing. No rales Abdomen: Soft and nontender. No rigidity. No distention. Skin: Skin warm and dry. Normal skin color. Normal skin turgor. Extremities: No lower extremity edema. No Lacerations. No Rash Neuro: Oriented X 3. No motor deficit. No sensory deficit. Moving all extremities. No slurred speech. CN 2 through 12 grossly intact Psych: calm, cooperative, normal affect Discharge Plan Discharge Clinical Impression: Chronic pancreatitis Patient Disposition: Admitted As Inpatient
[2025-03-31 17:22] LABS: MANUAL DIFF FLAG NO
[2025-03-31 17:33] LABS: Hematocrit 39.7 % (37.0-47.0); Hemoglobin 13.0 g/dl (12.0-16.0); Imm Gran Abs Auto 0.06 X10*3/uL (0.00-0.03); Imm Gran Pct Auto 0.5 % (0.0-0.4); Lymphocytes Absolute Auto 3.7 X10*3/uL (1.2-4.9); Mean Corpuscular HGB Conc 32.7 g/dl (31.0-35.0); Mean Corpuscular Hemoglobin 28.0 pg (27.0-33.0); Mean Corpuscular Volume 85.4 fL (80.0-98.0); NRBC Abs Auto 0.000 X10*3/uL (0.0-0.012); NRBC Pct Auto 0.0 /100WBC (0.0-0.2); Platelet Count 405 X10*3/uL (160-400); Red Blood Count 4.65 X10*6/uL (4.20-5.50); White Blood Count 12.3 X10*3/uL (4.8-10.8)
[2025-03-31 17:35] LABS: Alanine Aminotransferase 49 U/L (0-31); Albumin Level 4.1 g/dL (3.5-5.0); Alkaline Phosphatase 200 U/L (39-117); Anion Gap 18 (12-20); Aspartate Amino Transferase 126 U/L (5-31); Blood Urea Nitrogen 6 mg/dL (9-16); Calcium 9.7 mg/dL (8.4-10.2); Carbon Dioxide 25 mmol/L (22-29); Chloride 100 mmol/L (96-108); Creatinine Clr Calc Pharmacy 100.2; Estimated Glomerular Filt Rate > 60; Lipase 9 U/L (8-78); Potassium 3.2 mmol/L (3.3-5.1); Sodium 140 mmol/L (135-145); Total Protein 7.5 g/dL (6.5-8.0)
[2025-03-31] MEDS: iohexoL 350 MG/ML 100 ML INFUS..BTL IV (18:28)
[2025-03-31 19:14] VITALS: BP 128/88; PULSE 107; RESP 16; O2SAT 93
--- NOTE | 2025-03-31 19:56 | PM.IMHP ---
History of Present Illness Date of Service: 03/31/25 Chief Complaint: abd pain, n/v 44F PMH etoh dependence, chronic pancreatitis, bipolar, PTSD presented with abdominal pain. Patient states her symptoms have been ongoing for the last 3 days. Epigastric pain radiating to her back. Inability to tolerate p.o., nausea and vomiting. Denies any fever or chills. Denies hematemesis. Feels similar to previous pancreatitis episodes. In ED CT showed diffuse pancreatic calcifications compatible with chronic pancreatitis, there is 6 mm calcified density medial to the descending duodenum possible distal choledochal stone, MRCP recommended. Review of Systems Review of Systems: Yes all other systems are reviewed and are negative [facility] Medical History Alcohol use disorder Barbiturate abuse Cocaine use disorder Pancreatitis Elevated LFTs Alcohol use disorder Chronic pancreatitis Alcohol abuse Alcoholism Suicidal ideations Intentional overdose Chronic cough Chronic pancreatitis Cocaine use Alcohol abuse Obesity (BMI 30.0-34.9) Pancreatitis Back pain Alcohol use disorder, severe, dependence Gastritis Gastritis Endometriosis Constipation Anxiety Depression Bipolar disorder Suicidal behavior PTSD (post-traumatic stress disorder) Surgical History History of ankle surgery Social History Household Members: None Housing: House Do you presently have visiting nurse or other home services: No Alcohol intake: current Alcohol intake frequency: a few times a week Alcohol type: beer and hard liquor Comment: pt continues to refuse bed alarm Patient Tobacco Use Status: Never used Tobacco Tobacco use type: Cigarette Cigarette Packs Per Day: 0 Cigarettes Per Day: 0 e-Cigarette/Vaping Use: Never Used Second Hand Smoke Exposure: Yes Substance Use Type: Crack/Cocaine Advance Directives: Yes Advance Directives on File: Yes Advance Directives Date on File: 09/07/23 Do you have a plan to hurt others: No Plan service: No Sexual orientation: Straight/Heterosexual Meds Allergies Allergy/AdvReac Type Severity Reaction Status Date / Time ibuprofen AdvReac Stomach Verified 03/31/25 16:48 Upset morphine AdvReac Gastrointestinal Verified 03/31/25 16:48 Upset bees Allergy Severe Anaphylaxis Uncoded 03/31/25 16:48 Active Medications: Current Medications Acetaminophen (Acetaminophen 325 Mg Tablet) 650 mg PO Q6H PRN PRN Reason: Pain, Mild 1-3,fever,headache Calcium Carbonate (Calcium Carbonate 750 Mg Tab.Chew) 750 mg PO Q4H PRN PRN Reason: Heartburn Enoxaparin Sodium (Enoxaparin Sodium 40 Mg/0.4 Ml Syringe) 40 mg SUBCUT Q24H ELIZABETH Hydromorphone HCl (Hydromorphone Hcl 1 Mg/Ml Syringe) 0.5 mg IVPUSH Q3H PRN; Protocol PRN Reason: Pain, Severe (Pain Scale 7-10) Lactated Ringer's (Lr) 1,000 mls @ 100 mls/hr IVCONT .Q10H ELIZABETH Magnesium Hydroxide (Milk Of Magnesia 30 Ml Oral.Susp) 30 ml PO DAILY PRN PRN Reason: Constipation Melatonin (Melatonin 3 Mg Tablet) 6 mg PO BEDTIME PRN PRN Reason: Insomnia Sodium Chloride (0.9 % Sodium Chloride Flush 3 Ml Syringe) 3 ml IVFLUSH QSHIFT ELIZABETH Home Medications ?Medication ?Instructions ?Recorded ?Confirmed ?Last Taken ?Type aripiprazole 10 mg tablet 10 mg PO BEDTIME 05/21/21 03/16/25 01/23/25 History doxepin 50 mg capsule 50 mg PO BEDTIME 05/21/21 03/16/25 01/23/25 History gabapentin 600 mg tablet 600 mg PO TID 05/21/21 03/16/25 01/23/25 History lorazepam 1 mg tablet 1 mg PO TID PRN Anxiety 05/21/21 03/16/25 01/23/25 History pantoprazole 40 mg tablet,delayed 40 mg PO DAILY@0630 05/21/21 03/16/25 01/23/25 History release bupropion HCl 300 mg 24 hr tablet, 300 mg PO DAILY 09/07/23 03/16/25 01/23/25 History extended release folic acid 1 mg tablet 1 mg PO DAILY 09/07/23 03/16/25 01/23/25 History lamotrigine 25 mg tablet 75 mg PO BEDTIME 09/07/23 03/16/25 01/23/25 History jjmlrv-cdcmqiuh-trbwhin 1 cap PO TIDWM 08/23/24 03/16/25 01/23/25 History (pork)36,000-114,000-180k unit capsule,del rel (Creon) trazodone 150 mg tablet 150 mg PO BEDTIME 08/23/24 03/16/25 01/23/25 History albuterol sulfate 90 mcg/actuation 2 puff inhalation Q4H PRN 11/15/24 03/16/25 01/23/25 History aerosol inhaler (Ventolin HFA) Shortness Of Breath Or Wheezing melatonin 3 mg tablet 15 mg PO BEDTIME PRN Sleep 12/27/24 03/16/25 01/23/25 History thiamine HCl (vitamin B1) 100 mg 100 mg PO DAILY 12/27/24 03/16/25 01/23/25 History tablet multivitamin 1 tab PO DAILY 01/24/25 03/16/25 01/23/25 History Physical Exam Vital Signs and Narrative: Vital Signs: Last Vital Signs Temp 96.6 F L 03/31/25 16:42 Pulse 107 H 03/31/25 19:14 Resp 16 03/31/25 19:14 BP 128/88 03/31/25 19:14 Pulse Ox 93 03/31/25 19:14 O2 Del Method Room Air 03/31/25 19:14 BMI result Body Mass Index 28.3 General: AO X 3, in pain, teary Resp: CTA bilateral, no accessory muscles used CVS: S1,S2,RRR GI: soft, epigastrium tender, non distended Neuro: motor grossly intact, alert Psych: appropriate affect, appropriate insight Results Labs 03/31/25 17:12 03/31/25 17:12 Labs: Laboratory Results - last 24 hr 03/31/25 17:12 MCV 85.4 MCH 28.0 MCHC 32.7 RDW 15.5 Plt Count 405 H D MPV 9.5 Immature Gran % (Auto) 0.5 H Neut % (Auto) 56.3 Lymph % (Auto) 29.9 [place] % (Auto) 10.6 Eos % (Auto) 1.9 Baso % (Auto) 0.8 Lymph # (Auto) 3.7 [place] # (Auto) 1.3 H Eos # (Auto) 0.2 Baso # (Auto) 0.1 Abs Immat Gran (auto) 0.06 H Absolute Neuts (auto) 6.9 Absolute Nucleated RBC 0.000 Nucleated RBC % (auto) 0.0 Anion Gap 18 Estim Creat Clear Calc 100.2 Estimated GFR > 60 Random Glucose 193 H Calcium 9.7 D Total Bilirubin 0.7 Direct Bilirubin 0.4 AST 126 H ALT 49 H Alkaline Phosphatase 200 H Total Protein 7.5 Albumin 4.1 Lipase 9 Ethyl Alcohol 171 Assessment and Plan (1) Chronic abdominal pain: Status: Acute Plan 44F PMH etoh dependence, chronic pancreatitis, bipolar, PTSD presented with abdominal pain Acute on chronic pancreatitis Likely due to alcohol dependence, though imaging with question of gallstone Check MRCP, monitor LFTs, clear liquids for now advance as tolerated, IV fluids, IV Dilaudid Continue Creon Alcohol dependence No signs of withdrawal, monitor CIWA Continue folic acid Acute hypokalemia Potassium 3.2, replace and monitor Bipolar/PTSD Continue lamotrigine, omeprazole, gabapentin, prazosin, Ativan, bupropion DVT prophylaxis with Lovenox Full code Quality Stroke Does the patient have a stroke diagnosis?: No VTE Prior VTE?: No VTE Risk Level:: Medical - moderate - high VTE Device Contraindication: Treatment Not Indicated VTE Drug Contraindication: N/A - Med Ordered
[2025-03-31] MEDS: Potassium Chloride ER 20 MEQ TAB.ER.PRT 40 MEQ PO (20:22)
--- NOTE | 2025-03-31 20:26 | PHA.MEDREC ---
Pharmacy Consult ? Medication Reconciliation Pharmacy has completed the medication reconciliation. Spoke with patient in ED who listed off all medications. Patient started Clindamycin on monday. Last took medications 3 days ago.
[2025-03-31] MEDS: Lactated Ringers 1,000 ML 100 ML IVCONT (20:32)
--- OUTSIDE RECORDS SUMMARY | 2025-03-31 20:32 | XMS_ITS | Clinical Summary ---
Author Organization [facility] Address [address] [place] [address] Care Team Providers Care Clinical Rn Manager Name Role Phone Unavailable Primary Care [...] Depression Screening 05/08/2024 COVID-19 Vaccine ( - 2024-2 6 season) 2025 Influenza Vaccine (#1) 2025 RSV [...]
--- OUTSIDE RECORDS SUMMARY | 2025-03-31 20:32 | XMS_ITS | Data Portability ---
Author Organization [facility] [address] Address [address] [place] [address] Care Team Providers Care Bioengineer Name Role Phone NING SCHNEIDERA Primary Care Provider [phone] Assessment No assessment recorded. Plan of Treatment Reminders Order Date Submit Date Provider Last Modified By Organization Details Last Modified Time Details Appointments None recorded. Lab None recorded. Referral None recorded. Procedures None recorded. Surgeries None recorded. Imaging None recorded. Medication Orders Lidocaine Viscous 2 % mucosal solution 2022 023 [id number], [address] [place] [address], [id number], 13:56:49 valacyclovi r 1 gram tablet 2022 023 [facility][id number], [address] [place] [address], [id number], 3 13:56:50 Lidocaine Viscous 2 % mucosal solution 2022 023 [facility]26871, [address] [place] [address], [phone], 20:01:27 Patient TargetsNo targets recorded. Patient Instructions Encounter Date Encounter Id Patient Instructions Last Modified By Organization Details Last Modified Time 11/17/2022 [id number] Based on your Presentation, Exam, and Lab [...] if you have any questions or concerns. [email or web address] Not available 11/17/2022 20:04:23 11/29/2022 [id number] canker sore: car e instructions [email or web address] Not available 11/29/2022 13:56:47 Reason for Referral None Reported. Problems Name Problem SNOMED Code Status Onset Date Resolution Date Notes Provider Name and Address Organization Details Recorded Time Pancreatitis 01358198 Active Katelynn Ruszala null, PA - [facility] 19:38:29 Acid reflux 450596171 Active Katelynn Ruszala null, PA - [facility] 19:38:40 Anxiety 08566220 Active Katelynn Ruszala null, PA - [facility] 19:38:47 Insomnia 541693864 Active Katelynn Ruszala null, PA - [facility] 19:38:55 Bipolar disorder 55305248 Active 2022 Guerline Batista null, PA - [...] Name and Address Organization Details Recorded Time 440654 ibuprofen medicatio n Not available Not available Not available 11/17/2022 5640 RxNorm Katelynn Isaiahla null, PA - [facility] 3 19:36:01 914040 acetamino phen medicatio n Not available Not available Not available 11/17/2022 161 RxNorm Katelynn Mauriciozala null, PA - [facility] 3 19:36:19 257913 [employer] environme nt,medica tion Not available Not available Not available 11/17/2022 68219 6 RxNorm Katelynn Mauriciozala null, PA - [...] Reported Body temperature Respiratory rate Oxygen saturation Heart rate Systolic And Diastolic Provider Name and Address Organization Details Last Updated DateTime 3 165.1 cm 28.3 kg/m2 74188.7 g 10 97.1 [degF] 18 /min 97 % 96 /min 122/91 mm[Hg] Katelynn Lozada PA - [facility] 3 19:43:08 Date Recorded Body height Body mass index (BMI) Body weight Pain severity - 0-10 verbal numeric rating [Score] - Reported Respiratory rate Oxygen saturation Heart rate Body temperature Systolic And Diastolic Provider Name and Address Organization Details Last Updated DateTime 3 165.1 cm 28.3 kg/m2 63069.7 g 9 18 /min 98 % 103 /min 98.1 [degF] 134/81 mm[Hg] Guerline Batista PA - [facility] 3 13:17:58 Social History Question Answer Notes LastModified by [employer] Details LastModified Time Tobacco Smoking Status Current Every Day Smoker Katelynn herzog PA Rizwana [facility] 11/17/2022 19:39:46 Have You Had Direct Contact, Or Contact During Intimacy, With Monkeypox Rash, Scabs, Or Body Fluids From A Person With Monkeypox? No Information not available 11/17/2022 How Much Tobacco Do You Smoke? 2 PPW Information not available 11/17/2022 Have You Recently Traveled Abroad? No Information not available 11/17/2022 Sex: Unknown Functional Status Question Answer Note LastModified by [employer] Details LastModified Time How many times per [...] ICD10 Code Diagnosis IMO Codes Diagnosis Note [id number] _[place] [facility] [address] [place] [address] 01/09/2017 19:01:44 01/09/2017 20:34:26 [id number] [facility] [address] [address] [place] [address] 11/17/2022 19:16:22 11/17/2022 20:04:03 Aphthous ulcer of mouth 283809561 K12.0 Hand foot and mouth disease 233125921 B08.4 [id number] Alejandro Lagos [facility] [address] [place] [address] 11/29/2022 12:56:12 11/29/2022 14:01:12 Painful mouth 555860494 K13.79 Aphthous u lcer of mouth 694019452 K12.0 Health Concerns Section Related Observation LastModified by Organization Detai ls LastModified Time None Recorded Concern Status LastModified by Organization Details LastModified Time None Recorded Advance Directives Directive None Recorded Payers Insurance Date Sequence Insurance Name Policy Number Policy Ramirez Covered Member ID Ramirez Member ID Guarantor Name 11/17/2022 1 [facility] (MEDICAID REPLACEMENT - HMO) Rufina Schaefer [id number] Rufina Schaefer 11/29/2022 1 [facility] (MEDICAID HMO) [id number] Rufina Schaefer [id number] Rufina Schaefer 11/18/2022 1 [facility] [id number] Rufina Schaefer [id number] Rufina Schaefer 11/17/2022 1 [place] [facility] Rufina Schaefer [id number] Rufina Schaefer Notes Date Note Type Note Provider Name and Address Organization Details Recorded Time 11/17/2022 text/html Generic HPI TemplateReported by [email or web address] y.o female pt presents with 8 days of painful white ulcerative lesions inside of mouth. Pt denies any other sx's. Tried OTC meds without relief. KODI BALDWIN [address] [facility] [place], [address], [facility] 11/23/2022 13:47:39 11/29/2022 text/html Generic HPI TemplateReported by [email or web address] y.o female pt presents with2 weeks white ulcerative lesions inside of mouth. TRied lidocaine, hasnyt helped Pt denies any other sx's. Tried OTC meds without relief. Alejandro Lagos MD [address] [place], [address], [facility] 11/29/2022 13:57:48 OBGyn Episode No OBEpisode recorded.
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
--- NOTE | 2025-03-31 20:51 | MHC.EDTECH ---
pt vomited 300mL of light yellow, watery, emesis
[2025-03-31 21:05] VITALS: BP 123/81; PULSE 90; RESP 16; TEMP 36.4; O2SAT 96
[2025-03-31 21:16] VITALS: BP 123/81
--- NOTE | 2025-03-31 22:14 | HO.NURTONUR ---
Addendum entered by Simran Billings RN 03/31/25 22:19: MRI fax form faxed. Original Note: Pt from home with reports of epigastric pain and n/v. Pt has hx of pancreatitis and etoh dependent,denies withdrawl seizures/tremors, and reports drinking alcohol 2 days ago causing a flare up. Pt reports sx ongoing for last 3 days. Pt denies any recent sick contacts, fever, diarrhea, sob, cp, or any other symptoms of concern. In the ED pts ct abd/pelvis revealed pancreatic calcifications, pancreatitis, and 6mm stone, MRCP recommended, pt being amditted to have MRI in the am and observation. Pt Q4h CIWA last score of 1. Pt has 20G IV in RAC and has been medicated per jul. Pt has IVF LR @ 100ml/hr. PRN 0.5mg of IV dilaudid found to be effective per pt. Pt ca&ox4, able to make her needs known and ambulates with steady gait. Labs: WBC- 12.3 potassium- 3.2 BUN- 6 AST- 126 ALT- 49 Alkaline phosphate- 200 ETOH- 171 CT abd/pelvis: Impression: 1. No definable CT evidence of pancreatitis. Diffuse pancreatic calcification are compatible with the history of chronic pancreatitis. 2. 6 mm calcific density medial to the descending duodenum could represent distal choledochal stone although this is indeterminate. If further evaluation is clinically warranted, consider MRCP.
[2025-03-31 23:44] VITALS: BP 106/59; PULSE 122; RESP 18; TEMP 36.6; O2SAT 94
[2025-03-31 23:52] VITALS: BMI 30.8
[2025-04-01 03:03] VITALS: BP 99/64; PULSE 107; RESP 18; TEMP 36.9; O2SAT 95
[2025-04-01] MEDS: Lactated Ringers 1,000 ML 100 ML IVCONT ×2 (06:12→15:33)
[2025-04-01 06:16] LABS: UPreg QC Valid YES
[2025-04-01 06:24] LABS: Cannabinoid Screen Urine Not Detected (Not Detect)
[2025-04-01 07:12] LABS: Hematocrit 33.4 % (37.0-47.0); Hemoglobin 10.6 g/dl (12.0-16.0); Mean Corpuscular HGB Conc 31.7 g/dl (31.0-35.0); Mean Corpuscular Hemoglobin 27.8 pg (27.0-33.0); Mean Corpuscular Volume 87.7 fL (80.0-98.0); NRBC Abs Auto 0.000 X10*3/uL (0.0-0.012); NRBC Pct Auto 0.0 /100WBC (0.0-0.2); Platelet Count 247 X10*3/uL (160-400); Red Blood Count 3.81 X10*6/uL (4.20-5.50); White Blood Count 7.9 X10*3/uL (4.8-10.8)
[2025-04-01] MEDS: Lipase/Prot/Amylase 12/38/60K CAPSULE.DR 3 CAP PO ×3 (07:36→16:44)
[2025-04-01] MEDS: buPROPion HCl XL 300 MG TAB.ER.24H PO (07:36)
[2025-04-01 07:50] LABS: Alanine Aminotransferase 34 U/L (0-31); Albumin Level 3.2 g/dL (3.5-5.0); Alkaline Phosphatase 140 U/L (39-117); Anion Gap 16 (12-20); Aspartate Amino Transferase 90 U/L (5-31); Blood Urea Nitrogen 6 mg/dL (9-16); Calcium 8.1 mg/dL (8.4-10.2); Carbon Dioxide 25 mmol/L (22-29); Chloride 98 mmol/L (96-108); Creatinine Clr Calc Pharmacy 109.0; Estimated Glomerular Filt Rate > 60; Potassium 3.9 mmol/L (3.3-5.1); Sodium 135 mmol/L (135-145); Total Protein 5.9 g/dL (6.5-8.0)
[2025-04-01 08:03] VITALS: BP 109/73; PULSE 99; RESP 18; TEMP 36.8; O2SAT 93
[2025-04-01 08:10] LABS: Magnesium 1.3 mg/dL (1.6-2.6)
[2025-04-01] MEDS: Magnesium Sulfate/H2O 2 GM/50 ML PIGGYBACK IV (10:26)
--- NOTE | 2025-04-01 11:38 | MHC.CM.PN ---
p[t lives with shaji goes to [employer] meetings has no children in the home has own ride expected to to be seen by addiction medicine dc plan home
--- NOTE | 2025-04-01 12:11 | P.PNIM_ITS ---
Subjective Subjective Date of Service: 04/01/25 Interval History: Patient was noted to have severe hypomagnesemia 1.3 and repleted with 2gm IV magnesium c/o significant pain and incereased IV dilaudid to 1mg Q4H (double the dose) We will advance diet as tolerated Review of Systems Review of Systems: Yes all other systems are reviewed and are negative Physical Exam 2 Vital Signs: Vital Signs: Last Vital Signs Temp 98.3 F 04/01/25 08:03 Pulse 99 04/01/25 08:03 Resp 18 04/01/25 08:03 BP 109/73 04/01/25 08:03 Pulse Ox 93 04/01/25 08:03 O2 Del Method Room Air 04/01/25 08:03 BMI result Body Mass Index 30.8 Const: Other: General: AO X 3, no acute distress Resp: CTA bilateral CVS: S1,S2,RRR GI: +BS, NT, no distention Skin: No rash Neuro: motor grossly intact Psych: appropriate affect Objective Data Active Medications Acetaminophen (Acetaminophen 325 Mg Tablet) 975 mg PO Q6H [facility] Last Admin: 04/01/25 10:51 Dose: Not Given Documented By: ELIEZER Non-Admin Reason: Administered by Alternate Route Albuterol Sulfate (Albuterol Sulfate 90 Mcg 8 Gm Inhaler) 2 puff INHALE Q4H PRN PRN Reason: Shortness Of Breath Or Wheezing Lipase/Protease/Amylase (Lipase/Prot/Amylase 12/38/60k Capsule.Dr) 3 cap PO TIDAC [facility] Last Admin: 04/01/25 07:36 Dose: 3 cap Documented By: ELIEZER Aripiprazole (Aripiprazole 10 Mg Tablet) 10 mg PO BEDTIME [facility] Last Admin: 03/31/25 21:17 Dose: 10 mg Documented By: JESSIE Bupropion HCl (Bupropion Hcl Xl 300 Mg Tab.Er.24h) 300 mg PO DAILY [facility] Last Admin: 04/01/25 07:36 Dose: 300 mg Documented By: ELIEZER Calcium Carbonate (Calcium Carbonate 750 Mg Tab.Chew) 750 mg PO Q4H PRN PRN Reason: Heartburn Doxepin HCl (Doxepin Hcl 25 Mg Capsule) 50 mg PO BEDTIME [facility] Last Admin: 03/31/25 21:17 Dose: 50 mg Documented By: JESSIE Enoxaparin Sodium (Enoxaparin Sodium 40 Mg/0.4 Ml Syringe) 40 mg SUBCUT Q24H [facility] Last Admin: 04/01/25 10:30 Dose: Not Given Documented By: ELIEZER Non-Admin Reason: Patient Refused Folic Acid (Folic Acid 1 Mg Tablet) 1 mg PO DAILY [facility] Last Admin: 04/01/25 07:35 Dose: 1 mg Documented By: ELIEZER Gabapentin (Gabapentin 600 Mg Tablet) 600 mg PO TID [facility] Last Admin: 04/01/25 07:35 Dose: 600 mg Documented By: ELIEZER Hydromorphone HCl (Hydromorphone Hcl 1 Mg/Ml Syringe) 1 mg IVPUSH Q4H PRN; Protocol PRN Reason: Pain, Severe (Pain Scale 7-10) Last Admin: 04/01/25 10:46 Dose: 1 mg Documented By: ELIEZER Lactated Ringer's (Lr) 1,000 mls @ 100 mls/hr IVCONT .Q10H [facility] Last Admin: 04/01/25 06:12 Dose: 100 mls/hr Documented By: JASON Lorazepam (Lorazepam 1 Mg Tablet) 1 mg PO TID PRN PRN Reason: Anxiety Last Admin: 04/01/25 07:49 Dose: 1 mg Documented By: ELIEZER Magnesium Hydroxide (Milk Of Magnesia 30 Ml Oral.Susp) 30 ml PO DAILY PRN PRN Reason: Constipation Melatonin (Melatonin 3 Mg Tablet) 6 mg PO BEDTIME PRN PRN Reason: Insomnia Multivitamins/Vitamin C (Multivitamin Tablet) 1 tab PO DAILY [facility] Last Admin: 04/01/25 07:35 Dose: 1 tab Documented By: ELIEZER Omeprazole (Omeprazole 20 Mg Capsule.Dr) 20 mg PO DAILY@0630 [facility] Last Admin: 04/01/25 06:10 Dose: 20 mg Documented By: JASON Ondansetron HCl (Ondansetron Hcl 4 Mg/2 Ml Vial) 4 mg IVPUSH Q6H PRN PRN Reason: Nausea and Vomiting Last Admin: 04/01/25 07:36 Dose: 4 mg Documented By: ELIEZER Prazosin HCl (Prazosin Hcl 5 Mg Capsule) 5 mg PO BEDTIME [facility]; Protocol Last Admin: 03/31/25 21:16 Dose: 5 mg Documented By: JESSIE Sodium Chloride (0.9 % Sodium Chloride Flush 3 Ml Syringe) 3 ml IVFLUSH QSHIFT [facility] Last Admin: 04/01/25 07:36 Dose: Not Given Documented By: ELIEZER Non-Admin Reason: IV Running Thiamine HCl (Thiamine Hcl 100 Mg Tablet) 100 mg PO DAILY [facility] Last Admin: 04/01/25 07:35 Dose: 100 mg Documented By: ELIEZER Trazodone HCl (Trazodone Hcl 50 Mg Tablet) 150 mg PO BEDTIME [facility] Last Admin: 03/31/25 21:17 Dose: 150 mg Documented By: JESSIE Labs 04/01/25 05:45 04/01/25 05:45 Labs: Laboratory Results - last 24 hr 03/31/25 04/01/25 04/01/25 17:12 05:45 05:48 MCV 85.4 87.7 MCH 28.0 27.8 MCHC 32.7 31.7 RDW 15.5 15.6 Plt Count 405 H D 247 D MPV 9.5 10.0 Immature Gran % (Auto) 0.5 H Neut % (Auto) 56.3 Lymph % (Auto) 29.9 [place] % (Auto) 10.6 Eos % (Auto) 1.9 Baso % (Auto) 0.8 Lymph # (Auto) 3.7 [place] # (Auto) 1.3 H Eos # (Auto) 0.2 Baso # (Auto) 0.1 Abs Immat Gran (auto) 0.06 H Absolute Neuts (auto) 6.9 Absolute Nucleated RBC 0.000 0.000 Nucleated RBC % (auto) 0.0 0.0 Anion Gap 18 16 Estim Creat Clear Calc 100.2 109.0 Estimated GFR > 60 > 60 Random Glucose 193 H 95 Calcium 9.7 D 8.1 L D Magnesium 1.3 L* Total Bilirubin 0.7 1.2 H Direct Bilirubin 0.4 0.3 AST 126 H 90 H ALT 49 H 34 H Alkaline Phosphatase 200 H 140 H Total Protein 7.5 5.9 L Albumin 4.1 3.2 L Lipase 9 Urine Test NEGATIVE Urine Opiates Screen POSITIVE H Ur Buprenorphine Scrn Not Detected Ur Oxycodone Screen Not Detected Urine Methadone Screen Not Detected Urine Fentanyl Screen Not Detected Ur Barbiturates Screen Not Detected Ur Phencyclidine Scrn Not Detected Ur Amphetamines Screen Not Detected U Benzodiazepines Scrn Not Detected Urine Cocaine Screen POSITIVE H U Marijuana (THC) Screen Not Detected Ethyl Alcohol 171 Assessment and Plan (1) Acute on chronic pancreatitis: Status: Resolved (2) Alcohol use disorder: Status: Acute Plan 44-year-old female with a past medical history of alcohol use disorder, etoh induced chronic pancreatitis, bipolar disorder, PTSD presented to the hospital with a chief complaint of nausea/vomiting/abdominal discomfort for about 1 week. Admitted for following Severe hypomagnesemia-1.3, repleted with 2 g IV magnesium today We will check daily and replete to goal Acute on chronic pancreatitis with normal Lipse Pain control -doubling the dose of Dilaudid per her request with dilaudid and oxycodone, escalate IV fluids , advance diet as angella Alcohol use disorder: Monitor on CIWA protocol. No sings of withdrawal at this time. Thiamine folate and multivitamins. PTSD, bipolar disorder: Resume home meds DVT prophylaxis: Lovenox Code status: Full code Out of bed ambulate, does not need tele This note is constructed using voice recognition software. While every effort has been made to ensure accuracy, glove operator errors may have been included. Quality Stroke Does the patient have a stroke diagnosis?: No VTE Prior VTE?: No VTE Risk Level:: Medical - moderate - high VTE Device Contraindication: Treatment Not Indicated VTE Drug Contraindication: N/A - Med Ordered
[2025-04-01 13:28] VITALS: BP 106/64; PULSE 106; RESP 20; TEMP 36.7; O2SAT 93
[2025-04-01 15:53] VITALS: BP 100/58; PULSE 105; RESP 18; TEMP 36.6; O2SAT 92
[2025-04-01 19:42] VITALS: BP 104/65; PULSE 104; RESP 18; TEMP 36.7; O2SAT 94
[2025-04-01 23:39] VITALS: BP 112/58; PULSE 103; RESP 18; TEMP 36.7; O2SAT 96
[2025-04-02] MEDS: Lactated Ringers 1,000 ML 100 ML IVCONT (02:55)
[2025-04-02 04:00] VITALS: BP 108/50; PULSE 95; RESP 18; TEMP 36.8; O2SAT 96
[2025-04-02 06:50] VITALS: BP 105/61; PULSE 96; RESP 16; TEMP 36.6; O2SAT 94
[2025-04-02] MEDS: Lipase/Prot/Amylase 12/38/60K CAPSULE.DR 3 CAP PO (07:00)
--- NOTE | 2025-04-02 07:40 | HO.PM.IMPN ---
Subjective Subjective Date of Service: 04/02/25 Physical Exam Vital Signs: Vital Signs: Last Vital Signs Temp 98 F 04/02/25 06:50 Pulse 96 04/02/25 06:50 Resp 16 04/02/25 06:50 BP 105/61 04/02/25 06:50 Pulse Ox 94 04/02/25 06:50 O2 Del Method Room Air 04/02/25 06:50 BMI result Body Mass Index 30.8 Objective Data Active Medications Acetaminophen (Acetaminophen 325 Mg Tablet) 975 mg PO Q6H [facility] Last Admin: 04/02/25 04:15 Dose: Not Given Documented By: JASON Non-Admin Reason: pt asleep Albuterol Sulfate (Albuterol Sulfate 90 Mcg 8 Gm Inhaler) 2 puff INHALE Q4H PRN PRN Reason: Shortness Of Breath Or Wheezing Lipase/Protease/Amylase (Lipase/Prot/Amylase 12/38/60k Capsule.Dr) 3 cap PO TIDAC [facility] Last Admin: 04/02/25 07:00 Dose: 3 cap Documented By: YESENIA Aripiprazole (Aripiprazole 10 Mg Tablet) 10 mg PO BEDTIME [facility] Last Admin: 04/01/25 20:26 Dose: 10 mg Documented By: JASON Bupropion HCl (Bupropion Hcl Xl 300 Mg Tab.Er.24h) 300 mg PO DAILY [facility] Last Admin: 04/01/25 07:36 Dose: 300 mg Documented By: ELIZEER Calcium Carbonate (Calcium Carbonate 750 Mg Tab.Chew) 750 mg PO Q4H PRN PRN Reason: Heartburn Doxepin HCl (Doxepin Hcl 25 Mg Capsule) 50 mg PO BEDTIME [facility] Last Admin: 04/01/25 20:26 Dose: 50 mg Documented By: JASON Enoxaparin Sodium (Enoxaparin Sodium 40 Mg/0.4 Ml Syringe) 40 mg SUBCUT Q24H [facility] Last Admin: 04/01/25 10:30 Dose: Not Given Documented By: ELIEZER Non-Admin Reason: Patient Refused Folic Acid (Folic Acid 1 Mg Tablet) 1 mg PO DAILY [facility] Last Admin: 04/01/25 07:35 Dose: 1 mg Documented By: ELIEZER Gabapentin (Gabapentin 600 Mg Tablet) 600 mg PO TID [facility] Last Admin: 04/01/25 20:26 Dose: 600 mg Documented By: JASON Hydromorphone HCl (Hydromorphone Hcl 1 Mg/Ml Syringe) 1 mg IVPUSH Q4H PRN; Protocol PRN Reason: Pain, Severe (Pain Scale 7-10) Last Admin: 04/02/25 06:38 Dose: 1 mg Documented By: JASON Lactated Ringer's (Lr) 1,000 mls @ 100 mls/hr IVCONT .Q10H [facility] Last Admin: 04/02/25 02:55 Dose: 100 mls/hr Documented By: JASON Lorazepam (Lorazepam 1 Mg Tablet) 1 mg PO TID PRN PRN Reason: Anxiety Last Admin: 04/02/25 01:30 Dose: 1 mg Documented By: JASON Magnesium Hydroxide (Milk Of Magnesia 30 Ml Oral.Susp) 30 ml PO DAILY PRN PRN Reason: Constipation Melatonin (Melatonin 3 Mg Tablet) 6 mg PO BEDTIME PRN PRN Reason: Insomnia Multivitamins/Vitamin C (Multivitamin Tablet) 1 tab PO DAILY [facility] Last Admin: 04/01/25 07:35 Dose: 1 tab Documented By: ELIEZER Omeprazole (Omeprazole 20 Mg Capsule.) 20 mg PO DAILY@0630 [facility] Last Admin: 04/02/25 06:39 Dose: 20 mg Documented By: JASON Ondansetron HCl (Ondansetron Hcl 4 Mg/2 Ml Vial) 4 mg IVPUSH Q6H PRN PRN Reason: Nausea and Vomiting Last Admin: 04/02/25 07:00 Dose: 4 mg Documented By: YESENIA Prazosin HCl (Prazosin Hcl 5 Mg Capsule) 5 mg PO BEDTIME [facility]; Protocol Last Admin: 04/01/25 20:26 Dose: 5 mg Documented By: JASON Sodium Chloride (0.9 % Sodium Chloride Flush 3 Ml Syringe) 3 ml IVFLUSH QSHIFT [facility] Last Admin: 04/02/25 07:11 Dose: Not Given Documented By: YESENIA Non-Admin Reason: IV Running Thiamine HCl (Thiamine Hcl 100 Mg Tablet) 100 mg PO DAILY [facility] Last Admin: 04/01/25 07:35 Dose: 100 mg Documented By: ELIEZER Trazodone HCl (Trazodone Hcl 50 Mg Tablet) 150 mg PO BEDTIME [facility] Last Admin: 04/01/25 20:26 Dose: 150 mg Documented By: JASON Labs 04/01/25 05:45 04/01/25 05:45 Labs: Laboratory Results - last 24 hr 04/01/25 05:45 Anion Gap 16 Estim Creat Clear Calc 109.0 Estimated GFR > 60 Random Glucose 95 Calcium 8.1 L D Magnesium 1.3 L* Total Bilirubin 1.2 H Direct Bilirubin 0.3 AST 90 H ALT 34 H Alkaline Phosphatase 140 H Total Protein 5.9 L Albumin 3.2 L Quality Stroke Does the patient have a stroke diagnosis?: No VTE Prior VTE?: No VTE Risk Level:: Medical - moderate - high VTE Device Contraindication: Treatment Not Indicated VTE Drug Contraindication: N/A - Med Ordered
[2025-04-02] MEDS: buPROPion HCl XL 300 MG TAB.ER.24H PO (07:45)
--- NOTE | 2025-04-02 09:48 | PC.NURSE ---
Patient leaving MD CALI notified, Pt is of sound mind and able to make her own decisions, IV removed. Risk and Benefits explained to patient.
--- NOTE | 2025-04-02 09:52 | PC.NURSE ---
CALI paper signed.
--- NOTE | 2025-04-02 09:55 | MHC.RECOVRN ---
Consult placed to Addiction Medicine for pt with SONIA. Pt self directed discharge prior to recovery evaluation
--- NOTE | 2025-04-02 10:32 | P.DS_ITS ---
DS: Providers Provider Date of Service: 04/02/25 Date of admission: 04/01/25 12:14 Date of discharge: 04/02/25 Primary care physician: Tejinder Epperson MD Consults: 04/01/25 10:15 Addiction Medicine Provider Routine Consulting Provider: Addiction Covering Reason for consultation: Cocaine addiction, SONIA DS: Diagnosis Discharge Diagnosis (1) Acute on chronic pancreatitis: Status: Resolved (2) Alcohol use disorder: Status: Acute DS: Summary Hospital Course Hospital Course: Per HPI: 44F PMH etoh dependence, chronic pancreatitis, bipolar, PTSD presented with abdominal pain. Patient states her symptoms have been ongoing for the last 3 days. Epigastric pain radiating to her back. Inability to tolerate p.o., nausea and vomiting. Denies any fever or chills. Denies hematemesis. Feels similar to previous pancreatitis episodes. In ED CT showed diffuse pancreatic calcifications compatible with chronic pancreatitis, there is 6 mm calcified density medial to the descending duodenum possible distal choledochal stone, MRCP recommended. Hospital course: 44-year-old female with a past medical history of alcohol use disorder, etoh induced chronic pancreatitis, bipolar disorder, PTSD presented to the hospital with a chief complaint of nausea/vomiting/abdominal discomfort for about 1 week. Severe hypomagnesemia-1.3, repleted with 2 g IV yesterday Acute on chronic pancreatitis with normal Lipse Pain control -patient requested up titrating doses of Dilaudid and was not receptive of weaning the next day and left AMA even before I could finish rounding. She agreed to Tylenol and trialing p.o. Dilaudid premedicated with Zofran and changed her mind and left AMA. Alcohol use disorder: Monitor on CIWA protocol. No sings of withdrawal at this time. Thiamine folate and multivitamins. PTSD, bipolar disorder: Resume home meds DVT prophylaxis: Lovenox Code status: Full code Out of bed ambulate, does not need tele This note is constructed using voice recognition software. While every effort has been made to ensure accuracy, candy rolling machine operator errors may have been included. Time spent discussing smoking cessation with patient: more than 10 minutes Time Attestation Discharge Coordination Time (in mins): 45 Quality: Safe Use of Opioids Does Pt have an Active Cancer Diagnosis on the Problem List?: No Quality: Stroke Does the patient have a stroke diagnosis?: No Physical Exam Vital Signs: Vital Signs: Last Vital Signs Temp 98 F 04/02/25 06:50 Pulse 96 04/02/25 06:50 Resp 16 04/02/25 06:50 BP 105/61 04/02/25 06:50 Pulse Ox 94 04/02/25 06:50 O2 Del Method Room Air 04/02/25 06:50 BMI result Body Mass Index 30.8 Const: Other: General: AO X 3, no acute distress Resp: CTA bilateral CVS: S1,S2,RRR GI: +BS, NT, no distention Skin: No rash Neuro: motor grossly intact Psych: appropriate affect DS: Data Data Completed and Pending Completed studies during hospitalization [Text1]: Procedures Detoxification Services for Substance Abuse Treatment (01/24/25) Discharge Plan Discharge Patient Disposition: Left Against Medical Advice Discharge Diagnosis: abdominal pain due to chronic pancreatitis due to AUD Referrals: Tejinder Bates MD [Primary Care Provider, Medical] - 1 Week Discharge Medications: No Action prazosin 5 mg Capsule 5 mg PO BEDTIME 30 Days Qty: 30 0RF doxepin 50 mg capsule 50 mg PO BEDTIME gabapentin 600 mg tablet 600 mg PO TID aripiprazole 10 mg tablet 10 mg PO BEDTIME lorazepam 1 mg tablet 1 mg PO TID PRN (Reason: Anxiety) pantoprazole 40 mg Tablet,Delayed Release (Dr/Ec) 40 mg PO DAILY@0630 trazodone 150 mg tablet 150 mg PO BEDTIME Creon 36,000-114,000- 180,000 unit capsule,delayed release(DR/EC) 1 cap PO TIDAC albuterol sulfate [Ventolin HFA] 90 mcg/actuation HFA aerosol inhaler 2 puff INHALATION Q4H PRN (Reason: Shortness Of Breath Or Wheezing) thiamine HCl (vitamin B1) 100 mg tablet 100 mg PO DAILY multivitamin Tablet 1 tab PO DAILY folic acid 1 mg tablet 1 mg PO DAILY bupropion HCl 300 mg tablet extended release 24 hr 300 mg PO DAILY clindamycin HCl 300 mg capsule 300 mg PO TID Rx Instructions: Started 2 days ago- Monday03/29/25 Discharge Orders: Discharge Order (Routine); Ordered 04/02/25 Ordered By: Kyung Astudillo Diet: Low salt diet Activity on Discharge: As tolerated Print Language: Ukrainian Care Plan Goals: Follow up with PCP Refrain from alcohol Advised medication compliance, refraining from alcohol and opioids Health Concerns: See above Plan of Treatment: See above Assessment: See above Discharge Date/Time: 04/02/25 10:26
--- NOTE | 2025-04-02 10:34 | MHC.CM.PN ---
pt left ama
== END 2025-04-02 10:26 | disposition left against medical advice (07) | DRG 282 ==
LOC: HO.ED 17:25 → HO.EDOVER 19:55 → HO.S3 23:13
PROVIDERS: Admitting Provider Internal Medicine; Emergency Provider Emergency Medicine; PCP Internal Medicine; Visit Provider Student in an Organized Health Care Education/Training Program
DX: K85.20 Alcohol induced acute pancreatitis without necrosis or infection (principal); E83.42 Hypomagnesemia; E87.6 Hypokalemia; F10.20 Alcohol dependence, uncomplicated; Y90.6 Blood alcohol level of 120-199 mg/100 ml; F31.9 Bipolar disorder, unspecified; F43.10 Post-traumatic stress disorder, unspecified; K86.0 Alcohol-induced chronic pancreatitis; Z79.899 Other long term (current) drug therapy
CPT/HCPCS: 36415; 74177; 74181; 80048; 80076; 80307; 81025; 83690; 83735; 85025; 85027; 99221; 99285; J0131; J1171; J2405; J3475; J7120; Q9967

== ENCOUNTER → 2025-03-31 16:58 | Outpatient (BNV) | payer OTHER, SELFPAY | PROVIDERS: Admitting Provider Internal Medicine; Emergency Provider Emergency Medicine; PCP Internal Medicine; Visit Provider Radiology Diagnostic Radiology | DX: R10.13 Epigastric pain (principal) | CPT/HCPCS: 74177 ==

== ENCOUNTER 2025-03-31 19:43 | Outpatient (BNV) | payer OTHER, SELFPAY | END 2025-04-01 08:55 | PROVIDERS: Admitting Provider Internal Medicine; Emergency Provider Emergency Medicine; PCP Internal Medicine; Visit Provider Radiology Diagnostic Radiology | DX: K86.89 Other specified diseases of pancreas (principal) | CPT/HCPCS: 74181 ==

== ENCOUNTER → 2025-03-31 19:43 | Outpatient (BNV) | payer OTHER, SELFPAY | PROVIDERS: Admitting Provider Internal Medicine; Emergency Provider Emergency Medicine; PCP Internal Medicine; Visit Provider Internal Medicine | DX: K85.90 Acute pancreatitis without necrosis or infection, unspecified (principal); K86.1 Other chronic pancreatitis; F10.90 Alcohol use, unspecified, uncomplicated | CPT/HCPCS: 99223; 99233 ==

== ENCOUNTER 2025-04-23 15:11 | Emergency (ER) | payer OTHER, SELFPAY ==
[2025-04-23 15:28] VITALS: BP 132/68; BP 154/97; PULSE 115; PULSE 119; RESP 18; TEMP 36.8; O2SAT 97; O2SAT 98
[2025-04-23 16:08] LABS: MANUAL DIFF FLAG NO
[2025-04-23 16:14] LABS: Hematocrit 36.2 % (37.0-47.0); Hemoglobin 11.7 g/dl (12.0-16.0); Imm Gran Abs Auto 0.02 X10*3/uL (0.00-0.03); Imm Gran Pct Auto 0.3 % (0.0-0.4); Lymphocytes Absolute Auto 2.5 X10*3/uL (1.2-4.9); Mean Corpuscular HGB Conc 32.3 g/dl (31.0-35.0); Mean Corpuscular Hemoglobin 27.9 pg (27.0-33.0); Mean Corpuscular Volume 86.4 fL (80.0-98.0); NRBC Abs Auto 0.000 X10*3/uL (0.0-0.012); NRBC Pct Auto 0.0 /100WBC (0.0-0.2); Platelet Count 271 X10*3/uL (160-400); Red Blood Count 4.19 X10*6/uL (4.20-5.50); White Blood Count 7.8 X10*3/uL (4.8-10.8)
[2025-04-23] MEDS: Lactated Ringers 1,000 ML 999 ML IV (16:24)
--- NOTE | 2025-04-23 16:47 | ED.GENADULT ---
HPI - General Adult General Chief complaint: Abdominal Pain Stated complaint: abd pain x3 days 02/14 pain per ems Time Seen by Provider: 04/23/25 16:03 Source: patient, RN notes reviewed and old records reviewed Mode of arrival: EMS Limitations: no limitations History of Present Illness ED Provider: Curry HPI narrative: 44-year-old female with a past medical history significant for alcohol use disorder, chronic pancreatitis, PTSD presents for evaluation of abdominal pain nausea and vomiting. She reports 3 days of epigastric to left upper quadrant abdominal pain pain Her pain radiates around to her back she believes her pain is related to chronic pancreatitis. The patient also reports watery yellow diarrhea for the last month or so. Denies any bloody stool. She reports her pain as 02/14. She was recently admitted to this hospital on 03/31/2025 for chronic pancreatitis. Related Data Home Medications ?Medication ?Instructions ?Recorded ?Confirmed aripiprazole 10 mg tablet 10 mg PO BEDTIME 05/21/21 03/31/25 doxepin 50 mg capsule 50 mg PO BEDTIME 05/21/21 03/31/25 gabapentin 600 mg tablet 600 mg PO TID 05/21/21 03/31/25 lorazepam 1 mg tablet 1 mg PO TID PRN Anxiety 05/21/21 03/31/25 pantoprazole 40 mg tablet,delayed 40 mg PO DAILY@0630 05/21/21 03/31/25 release bupropion HCl 300 mg 24 hr tablet, 300 mg PO DAILY 09/07/23 03/31/25 extended release folic acid 1 mg tablet 1 mg PO DAILY 09/07/23 03/31/25 cclrnn-bsojwqkp-xtyxvjq 1 cap PO TIDAC 08/23/24 03/31/25 (pork)36,000-114,000-180k unit capsule,del rel (Creon) trazodone 150 mg tablet 150 mg PO BEDTIME 08/23/24 03/31/25 albuterol sulfate 90 mcg/actuation 2 puff inhalation Q4H PRN 11/15/24 03/31/25 aerosol inhaler (Ventolin HFA) Shortness Of Breath Or Wheezing thiamine HCl (vitamin B1) 100 mg 100 mg PO DAILY 12/27/24 03/31/25 tablet multivitamin 1 tab PO DAILY 01/24/25 03/31/25 clindamycin HCl 300 mg capsule 300 mg PO TID 03/31/25 03/31/25 Previous Rx's ?Medication ?Instructions ?Recorded prazosin 5 mg capsule 5 mg PO BEDTIME 30 days #30 caps 02/18/20 ondansetron 4 mg disintegrating 4 mg PO Q8H PRN nausea and 04/23/25 tablet vomiting #20 tabs oxycodone 5 mg tablet 5 mg PO Q6H PRN pain #12 tabs 04/23/25 Allergies Allergy/AdvReac Type Severity Reaction Status Date / Time ibuprofen AdvReac Stomach Verified 04/23/25 15:42 Upset morphine AdvReac Gastrointestinal Verified 04/23/25 15:42 Upset bees Allergy Severe Anaphylaxis Uncoded 04/23/25 15:42 Review of Systems Constitutional: Constitutional: Denies body ache(s), Denies chills and Denies fever(s) Eyes: Eyes: Denies blurry vision ENT: Denies vertigo and Denies dizziness Cardiovascular: Cardiovascular: Denies chest pain and Denies dyspnea on exertion Respiratory: Respiratory: Denies cough and Denies dyspnea on exertion Gastrointestinal: Gastrointestinal: Reports abdominal pain, Reports nausea and Reports vomiting Genitourinary: Genitourinary: Denies dysuria Musculoskeletal: Musculoskeletal: Reports back pain Integumentary/Breasts: Skin/Breast: Denies rash Neurologic: Denies vertigo and Denies dizziness Psychiatric: Psychiatric: Denies anxiety PMFSH Past Medical History Medical History Alcohol use disorder Barbiturate abuse Cocaine use disorder Pancreatitis Elevated LFTs Alcohol use disorder Chronic pancreatitis Alcohol abuse Alcoholism Suicidal ideations Intentional overdose Chronic cough Chronic pancreatitis Cocaine use Alcohol abuse Obesity (BMI 30.0-34.9) Pancreatitis Back pain Alcohol use disorder, severe, dependence Gastritis Gastritis Endometriosis Constipation Anxiety Depression Bipolar disorder Suicidal behavior PTSD (post-traumatic stress disorder) Surgical History History of ankle surgery Social History Social History Household Members: None Housing: House Do you presently have visiting nurse or other home services: No Alcohol intake: current Alcohol intake frequency: a few times a week Alcohol type: beer and hard liquor Comment: pt continues to refuse bed alarm Patient Tobacco Use Status: Never used Tobacco Tobacco use type: Cigarette Cigarette Packs Per Day: 0 Cigarettes Per Day: 0 Smoked in Last 30 Days: Yes e-Cigarette/Vaping Use: Never Used Second Hand Smoke Exposure: Yes Use of substances other than those prescribed or required for medical reasons: No Substance Use Type: Crack/Cocaine Advance Directives: Yes Advance Directives on File: Yes Advance Directives Date on File: 09/07/23 Do you have a plan to hurt others: No Plan service: No Sexual orientation: Straight/Heterosexual Physical Exam ED Vital Signs: Vital Signs - 24 hr 04/23/25 15:28 04/23/25 20:06 Temperature 98.3 F 98.1 F Pulse Rate 115 H 93 Respiratory Rate 18 20 Blood Pressure 154/97 H 125/83 Pulse Oximetry 97 95 Oxygen Delivery Method Room Air Room Air BMI result Body Mass Index 30.0 Const General: healthy appearing, comfortable, no acute distress, alert and awake Nutritional Appearance: well nourished Orientation/consciousness: patient oriented x3 HENMT Head: Yes normocephalic and Yes atraumatic Eyes Eyelids: Yes eyelids normal Conjunctivae: conjunctivae normal Sclerae: sclerae normal Corneas: corneas normal Pupils: Equal, round and reactive pupils present EOM: EOMs intact bilaterally Neck Neck: Yes full ROM Resp Effort & Inspection: normal respiratory effort, able to speak in complete sentences, no audible wheezes and not labored Auscultation: clear to auscultation bilaterally Cardio Rate: regular rate Rhythm: regular rhythm GI Inspection: No distended Palpation (GI): Soft to palpation, not firm, Tenderness to palpation present (GI) in the epigastrum and in the LUQ and Guarding due to palpation present (GI) Skin General skin exam: no rashes or lesions noted and elasticity normal Neuro General: patient oriented x3 Cranial nerves: Yes Equal, round and reactive pupils present and Yes Bilaterally intact EOM present Cognition (Neuro): normal cognition Extrem Other: Moving all extremities well without any obvious deformities Course Reevaluation(s) Reevaluation #1: The patient was able to tolerate clear liquids without vomiting and her pain is currently well controlled. We will discharge the patient with a short course of oxycodone. She was encouraged to avoid solid foods for the next 2 days and resume the clear liquid diet. Time: 21:11 Medications Administered Discontinued Medications Generic Name Dose Route Start Last Admin Trade Name Ibeth PRN Reason Stop Dose Admin Hydromorphone HCl 1 mg 04/23/25 16:09 04/23/25 16:24 Hydromorphone Hcl 1 Mg/Ml Syringe IVPUSH 04/23/25 16:10 1 mg ONCE ONE Administration Protocol Hydromorphone HCl 1 mg 04/23/25 19:37 04/23/25 20:05 Hydromorphone Hcl 1 Mg/Ml Syringe IVPUSH 04/23/25 19:38 1 mg ONCE ONE Administration Protocol Lactated Ringer's 1,000 mls @ 999 mls/hr 04/23/25 16:15 04/23/25 20:01 Lr IV 04/23/25 17:15 Infused .Q1H1M ELIZABETH Infusion Lorazepam 1 mg 04/23/25 17:06 04/23/25 17:48 Lorazepam 1 Mg Tablet PO 04/23/25 17:07 1 mg ONCE ONE Administration Metoclopramide HCl 10 mg 04/23/25 16:14 04/23/25 16:24 Metoclopramide Hcl 10 Mg/2 Ml Vial IVPUSH 04/23/25 16:15 10 mg ONCE ONE Administration Ondansetron HCl 4 mg 04/23/25 15:28 04/23/25 16:01 Ondansetron Hcl 4 Mg/2 Ml Vial IVPUSH 04/23/25 15:29 4 mg ONCE ONE Administration Medical Decision Making Medical Decision Making [facility] Narrative: 44-year-old female past medical history significant for chronic pancreatitis and alcohol abuse presents for evaluation of upper abdominal pain for the last 3 days. She does admit to drinking several nips over the last couple of days. She is quite well appearing. I reviewed her recent admission she had an MRI which showed chronic pancreatitis but no signs of acute pancreatitis. Plan for labs, we will treat her pain with the Dilaudid we will also hydrate with IV fluids and she reports Reglan works better for her nausea than Zofran. This was ordered. At the moment we will defer additional imaging. she additionally had a recent abdominal CT scan on 03/31/2025 and 03/15/2025 Differential Diagnosis Differential Diagnoses: The differential diagnosis associated with the presentation includes pancreatitis Alcoholism Gastritis Biliary colic less likely Viral syndrome Gastroenteritis Admission/Observation Consideration of admission/observation: Escalation of care including admission/observation considered Lab Data MDM Lab Attestation statement: I reviewed the patient's lab results. 04/23/25 15:48 04/23/25 16:45 Labs: Lab Results 04/23/25 04/23/25 Range/Units 15:48 16:45 WBC 7.8 (4.8-10.8) X10*3/uL RBC 4.19 L (4.20-5.50) X10*6/uL Hgb 11.7 L (12.0-16.0) g/dl Hct 36.2 L (37.0-47.0) % MCV 86.4 (80.0-98.0) fL MCH 27.9 (27.0-33.0) pg MCHC 32.3 (31.0-35.0) g/dl RDW 15.2 (11.0-16.0) % Plt Count 271 (160-400) X10*3/uL MPV 9.5 (9.4-12.3) fL Immature Gran % (Auto) 0.3 (0.0-0.4) % Neut % (Auto) 51.3 (45-73) % Lymph % (Auto) 31.8 (20-40) % [place] % (Auto) 13.0 H (2-11) % Eos % (Auto) 2.7 (0-4) % Baso % (Auto) 0.9 (0-2) % Lymph # (Auto) 2.5 (1.2-4.9) X10*3/uL [place] # (Auto) 1.0 (0.1-1.2) X10*3/uL Eos # (Auto) 0.2 (0.0-0.4) X10*3/uL Baso # (Auto) 0.1 (0.0-0.2) X10*3/uL Abs Immat Gran (auto) 0.02 (0.00-0.03) X10*3/uL Absolute Neuts (auto) 4.0 (2.0-8.3) x10*3/uL Absolute Nucleated RBC 0.000 (0.0-0.012) X10*3/uL Nucleated RBC % (auto) 0.0 (0.0-0.2) /100WBC Sodium 140 (135-145) mmol/L Potassium 4.0 (3.3-5.1) mmol/L Chloride 103 (96-108) mmol/L Carbon Dioxide 26 (22-29) mmol/L Anion Gap 15 (12-20) BUN 3 L (9-16) mg/dL Creatinine 0.57 (0.5-1.4) mg/dL Estim Creat Clear Calc 130.1 Estimated GFR > 60 Random Glucose 116 H (60-115) mg/dL Calcium 8.9 D (8.4-10.2) mg/dL Magnesium 2.0 (1.6-2.6) mg/dL Total Bilirubin 1.1 H (0.0-1.0) mg/dL AST 138 H (5-31) U/L ALT 47 H (0-31) U/L Alkaline Phosphatase 198 H (39-117) U/L Total Protein 7.1 (6.5-8.0) g/dL Albumin 4.1 (3.5-5.0) g/dL Lipase 15 (8-78) U/L Urine Color Yellow Urine Appearance Cloudy Urine pH 7.5 (5.0-9.0) Ur Specific [place] 1.015 (1.005-1.025) Urine Protein Negative (Neg-Trace) mg/dL Urine Glucose (UA) Negative (Negative) mg/dL Urine Ketones Negative (Negative) mg/dL Urine Blood Negative (Negative) Urine Nitrite Positive H (Negative) Ur Leukocyte Esterase Moderate (2+) H (Negative) Urine RBC 0-2 (0-2) /HPF Urine WBC >50 H (0-5) /HPF Ur Squamous Epith Cells 0-2 (0-2) /HPF Urine Bacteria 4+ (None Seen) Hyaline Casts 0-2 (0-2) /LPF Ethyl Alcohol 126 mg/dL Influenza Type A (PCR) NEGATIVE (Negative) Influenza Type B (PCR) NEGATIVE (Negative) RSV RNA Qual (PCR) NEGATIVE (Negative) SARS-CoV-2 RNA (RT-PCR) NEGATIVE (Negative) Discharge Plan Discharge Clinical Impression: Abdominal pain Patient Disposition: Home, Self-Care Instructions: Pancreatitis (ED), Clear Liquid Diet (ED) Additional Instructions: You should avoid solid foods next 2 days and continue with a clear liquid diet. You may use Zofran as needed for nausea and vomiting. You may take oxycodone for severe breakthrough pain. Return for new or worsening symptoms pain In is important to abstain from alcohol use entirely Prescriptions: New oxycodone 5 mg tablet 5 mg PO Q6H PRN (Reason: pain) Qty: 12 0RF Rx Instructions: Partial Fill upon patient request. ondansetron 4 mg tablet,disintegrating 4 mg PO Q8H PRN (Reason: nausea and vomiting) Qty: 20 0RF No Action prazosin 5 mg Capsule 5 mg PO BEDTIME 30 Days Qty: 30 0RF doxepin 50 mg capsule 50 mg PO BEDTIME gabapentin 600 mg tablet 600 mg PO TID aripiprazole 10 mg tablet 10 mg PO BEDTIME lorazepam 1 mg tablet 1 mg PO TID PRN (Reason: Anxiety) pantoprazole 40 mg Tablet,Delayed Release (Dr/Ec) 40 mg PO DAILY@0630 trazodone 150 mg tablet 150 mg PO BEDTIME Creon 36,000-114,000- 180,000 unit capsule,delayed release(DR/EC) 1 cap PO TIDAC albuterol sulfate [Ventolin HFA] 90 mcg/actuation HFA aerosol inhaler 2 puff INHALATION Q4H PRN (Reason: Shortness Of Breath Or Wheezing) thiamine HCl (vitamin B1) 100 mg tablet 100 mg PO DAILY multivitamin Tablet 1 tab PO DAILY folic acid 1 mg tablet 1 mg PO DAILY bupropion HCl 300 mg tablet extended release 24 hr 300 mg PO DAILY clindamycin HCl 300 mg capsule 300 mg PO TID Rx Instructions: Started 2 days ago- Monday03/29/25 Print Language: Swedish
[2025-04-23 16:52] LABS: Resp Syncy Virus RNA Qual PCR NEGATIVE (Negative); SARS COV2 PCR INHOUSE NEGATIVE (Negative)
[2025-04-23 16:55] LABS: Appearance Urine Cloudy; Glucose Urine UA Negative (Negative); PH 7.5 (5.0-9.0); Specific Gravity - Urine 1.015 (1.005-1.025); UMIC TRIGGER UACC YES
[2025-04-23 17:00] LABS: UACC Culture Trigger YES
[2025-04-23 17:10] LABS: Alanine Aminotransferase 47 U/L (0-31); Albumin Level 4.1 g/dL (3.5-5.0); Alkaline Phosphatase 198 U/L (39-117); Anion Gap 15 (12-20); Aspartate Amino Transferase 138 U/L (5-31); Blood Urea Nitrogen 3 mg/dL (9-16); Calcium 8.9 mg/dL (8.4-10.2); Carbon Dioxide 26 mmol/L (22-29); Chloride 103 mmol/L (96-108); Creatinine Clr Calc Pharmacy 130.1; Estimated Glomerular Filt Rate > 60; Lipase 15 U/L (8-78); Magnesium 2.0 mg/dL (1.6-2.6); Potassium 4.0 mmol/L (3.3-5.1); Sodium 140 mmol/L (135-145); Total Protein 7.1 g/dL (6.5-8.0)
[2025-04-23 20:06] VITALS: BP 125/83; PULSE 93; RESP 20; TEMP 36.7; O2SAT 95
--- OUTSIDE RECORDS SUMMARY | 2025-04-23 20:52 | XMS_ITS | Clinical Summary ---
Author Organization [facility] Address [address] [place] [address] Care Team Providers Care Mediation Commissioner Name Role Phone Unavailable Primary Care Provider [...]
--- OUTSIDE RECORDS SUMMARY | 2025-04-23 20:52 | XMS_ITS | Data Portability ---
Author Organization [place] - [facility], [facility] Address [address] [place] [address] Care Team Providers Care Dot Etcher Name Role Phone DILLON MCKEON Primary Care [...] truck turned her right foot awkwardly. Using [facility], placed in a CAM boot. She [...] resistance. X-rays ordered, obtained and reviewed at [facility] he views of the foot, [...] obtained and reviewed by me today at [facility], demonstrating interval healing of her [...] Surgeries orthopaed ic surgery (SURG) 2024 025 [email or web address] [facility] [place], [address], [place], [address], 15:52:23 Imaging XR, foot, 3 or more view - RM 108-- RECHECK 3V FOOT WB 2024 025 [facility], [address], [address], [place], [address], 5 19:44:38 XR, foot, 3 or more view - room 110 3V L foot 2024 025 stella [facility], [address], [address], [place], [address], 5 15:37:27 Medication Orders tramadol 50 mg tablet 2024 025 [id number], [address], [place], [id number], 5 10:55:43 Patient TargetsNo targets recorded. Patient InstructionsNo instructions recorded. Reason for Referral None Reported. Results Created Date Observation Date Name Description Value Unit Range Abnormal Flag Note LastModifiedBy Organization Detail LastModifiedTime 07/05/1907/05/2024 XR, foot, 3 or more view [email or web address] ?Encry pted=s hAaTro YD8dLq bEUv6g %2BXZw aYqtaq 0bqfl% 2Fg9IQ a4ajBk vP9nXo QUaueC m3YtLR FvZlgJ JJ8mAn HZtai3 3p3697 AC0Kqb XiMUqW vKiQtr MwF INTERFACE [facility] Office [address], [place], [address], 07/05/2024 14:19:22 07/05/19 25 07/05/2024 XR, foot, 3 or more view [email or web address] ?Encry pted=s hAaTro YD8dLq bEUv6g %2BXZw aYqtaq 0bqfl% 2Fg9IQ a4ajBk vP9nXo QUaueC m3YtLR FvZlgJ JJ8mAn HZtai3 9b8991 AC0Kqb XiMUqW vKiQtr MwF INTERFACE [facility] Office [address], [place], [address], 07/05/2024 14:19:24 Result Notes Documentation Provider Name and Address Organization Details Recorded Time Xr, Foot, 3 Or More View : [email or web address] Encrypted=bzHsTtfSQ5cTqiH Uv6g%8DDHvdVaijq1qhsx%2Fg 0JTx2dpZsfY4qWnUYaqmCh9Zr OSLaEhpGUA0nNwZNmga36v662 1SU7CdaNcVBhPaNfLrsRcZ Not Available [facility] 07/05/2024 14:19: 23 Xr, Foot, 3 Or More View : [email or web address] Encrypted=rlCsYplXF7dTgxR Uv6g%4VZKqcOsifq1opks%2Fg 6RQf8anTvfU7oUmMHzfiHe7Lt GCZpTfhHHG5bUyKNbva76i713 5IF7ZpqCsXEhRiGzEkiGnO Not Available [facility] 07/05/2024 14:19: 25 Problems Name Problem SNOMED Code Status Onset Date Resolution Date Notes Provider Name and Address Organization Details Recorded Time No complaints 836608921 Active Status : 'A'; Not Available [facility] 4 09:21:44 Problem Notes None recorded. Medical Equipment None Reported. Allergies Allergen ID Allergen Name Allergen Category Reaction Reaction Severity Criticality Documentation Date Start Date Code Code System Note Provider Name and Address Organization Details Recorded Time 270559 ibuprofen medicatio n Not available Not available Not available 04/02/2025 5640 RxNorm Not Available [facility] - External Data Service - prod 5 04:02:28 224657 acetamino phen medicatio n Not available Not available Not available 04/02/2025 161 RxNorm Not Available [facility] - External Data Service - prod 5 04:02:28 170797 ondansetr on medicatio n Not available Not available Not available 04/02/2025 59016 RxNorm patie nt has oppos ite effec t - vomit s more Not Available [facility] External Data Service - prod 5 04:02:28 300707 POLLEN EXTRACTS environme nt,medica tion Not available Not available Not available 04/02/2025 28791 6 RxNorm Not Available [facility] External Data Service - prod 5 04:03:29 92549 Motrin medicatio n Not available Not available Not available 07/10/2023202248 8 RxNorm Not Available [facility] 4 12:08:36 23817 Tylenol medicatio n Not available Not available Not available 07/10/20232022 3 RxNorm Not Available [facility] 4 12:08:37 Medications Name Sig Start Date [...] Last Updated DateTime 165.1 cm 31.6 kg/m2 08765.5 5 g 86 /min 98.5 [degF] 20 /min 125/79 mm[Hg] SAMY FRANKLIN [place] - [facility] 10:39:10 Date Recorded Body height Body mass index (BMI) Body weight Provider Name and Address Organization Details Last Updated DateTime 05/31/2024 165.1 cm 31.6 kg/m2 14642.55 g QUE CABALLERO [place] - [facility] 05/31/2024 14:37:55 Date Recorded Body height Body mass index (BMI) Body weight Provider Name and Address Organization Details Last Updated DateTime 07/05/2024 165.1 cm 31.6 kg/m2 81001.55 norris LINARESRizwanaMONIKA Levi [facility] 07/05/2024 14:14:08 Social History None recorded. [...] ICD10 Code Diagnosis IMO Codes Diagnosis Note [id number] MARK ANTHONY [facility] [place] [address] [place] [address] 05/14/2024 09:46:22 05/23/2024 16:07:15 Pain in left foot 3354138179 87098 M79.672 080316 Closed fra cture of fifth metatarsal bone 39887683 S92.352A 2077498 Closed fra cture of base of fifth metatarsal bone 210731167 S92.351A 16384793 [id number] MARK ANTHONY Carey - [place] [address] [place] [address] 05/31/2024 14:09:16 06/11/2024 14:19:37 Closed fracture of fifth metatarsal bone 69576920 S92.352A 4083106 [id number] MD YOLANDA Schreiber [address] [place] [address] 07/05/2024 13:52:20 07/21/2024 19:44:37 Pain in left foot 4984500963 77530 M79.672 793971 Postoperative visit 1836 01387 Z48.89 [id number] Health Concerns Section Related Observation LastModified by Organization Detai ls LastModified Time None Recorded Concern Status LastModified by Organization Details LastModified Time None Recorded Advance Directives Directive None Recorded Payers Insurance Date Sequence Insurance Name Policy Number Policy Ramirez Covered Member ID Ramirez Member ID Guarantor Name 04/01/2025 1 [facility] (MEDICAID HMO) [id number] Rufina Zen Schaefer [id number] Rufina Schaefer Notes Date Note Type Note [...] questions or concerns. Namrata Olvera PA-C [address], [place], [address], [facility] 05/31/2024 15:09:27 07/05/2024 text/html ROS as noted in the HPI Norbert Mahan MD [address], [place], [address], [facility] 07/05/2024 15:08:52 OBGyn Episode No OBEpisode recorded.
--- OUTSIDE RECORDS SUMMARY | 2025-04-23 20:52 | XMS_ITS | Data Portability ---
Author Organization KODI Haley s [address] Address [address] [place] [address] Care Team Providers Care Senior Producer Name Role Phone NING SCHNEIDERA Primary Care Provider [phone] Assessment No assessment recorded. Plan of Treatment Reminders Order Date Submit Date Provider Last Modified By Organization Details Last Modified Time Details Appointments None recorded. Lab None recorded. Referral None recorded. Procedures None recorded. Surgeries None recorded. Imaging None recorded. Medication Orders Lidocaine Viscous 2 % mucosal solution [address] [id number], [address] [place] [address], [id number], 13:56:49 valacyclovi r 1 gram tablet 2022 023 [facility] #[id number], [address] [place] [address], [id number], 3 13:56:50 Lidocaine Viscous 2 % mucosal solution 2022 023 [id number], [address] [place] [address], [id number], 20:01:27 Patient TargetsNo targets recorded. Patient Instructions Encounter Date Encounter Id Patient Instructions Last Modified By Organization Details Last Modified Time 11/17/2022 [id number] Based on your Presentation, Exam, and Lab [...] if you have any questions or concerns. [email or web address] Not available 11/17/2022 20:04:23 11/29/2022 [id number] canker sore: car e instructions [email or web address] Not available 11/29/2022 13:56:47 Reason for Referral None Reported. Problems Name Problem SNOMED Code Status Onset Date Resolution Date Notes Provider Name and Address Organization Details Recorded Time Pancreatitis 58406787 Active Katelynn Ruszala null, PA - [facility] 19:38:29 Acid reflux 641730113 Active Katelynn Ruszala null, PA - [facility] 19:38:40 Anxiety 99214307 Active Katelynn Ruszala null, PA - [facility] 19:38:47 Insomnia 610218510 Active Katelynn Ruszala null, PA - [facility] 19:38:55 Bipolar disorder 60421772 Active 2022 Guerline Batista null, PA - [...] Name and Address Organization Details Recorded Time 864151 ibuprofen medicatio n Not available Not available Not available 11/17/2022 5640 RxNorm Katelynn Isiaahla null, PA - [facility] 3 19:36:01 665989 acetamino phen medicatio n Not available Not available Not available 11/17/2022 161 RxNorm Katelynn Mauriciozala null, PA - [facility] 3 19:36:19 [id number] [employer] environme nt,medica tion Not available Not available Not available 11/17/2022 11073 6 RxNorm Katelynn Mauriciozala null, PA - [...] Updated DateTime 3 165.1 cm 28.3 kg/m2 49454.7 g 10 97.1 [degF] 18 /min 97 [...] Updated DateTime 3 165.1 cm 28.3 kg/m2 03720.7 g 9 18 /min 98 % 103 /min 98.1 [degF] 134/81 mm[Hg] Guerline Batista PA - [facility] 3 13:17:58 Social History Question Answer Notes LastModified by Cebix Details LastModified Time Tobacco Smoking Status Current [...] Functional Status Question Answer Note LastModified by Cebix Details LastModified Time How many times per [...] ICD10 Code Diagnosis IMO Codes Diagnosis Note [id number] [address] [address] [facility] [address] [place] [address] 01/09/2017 19:01:44 01/09/2017 20:34:26 [id number] [facility]ODI BALDWIN [address] [place] [phone] 11/17/2022 19:16:22 11/17/2022 20:04:03 Aphthous ulcer of mouth 287257796 K12.0 Hand foot and mouth disease 423654387 B08.4 [id number] Alejandro Lagos MD [address] [address] [place] [phone] 11/29/2022 12:56:12 11/29/2022 14:01:12 Painful mouth 754959614 K13.79 Aphthous u lcer of mouth 381537994 K12.0 Health Concerns Section Related Observation LastModified by Organization Detai ls LastModified Time None Recorded Concern Status LastModified by Organization Details LastModified Time None Recorded Advance Directives Directive None Recorded Payers Insurance Date Sequence Insurance Name Policy Number Policy Ramirez Covered Member ID Ramirez Member ID Guarantor Name 11/17/2022 1 [facility] (MEDICAID REPLACEMENT - HMO) Rufina Schaefer [id number] Rufina Schaefer 11/29/2022 1 [facility] (MEDICAID HMO) [id number] Rufina Schaefer [id number] Rufina Schaefer 11/18/2022 1 [facility] [id number] Rufina Schaefer [id number] Rufina Schaefer 11/17/2022 1 [place] [facility] Rufina Schaefer [id number] Rufina Schaefer Notes Date Note Type Note Provider Name and Address Organization Details Recorded Time 11/17/2022 text/html Generic HPI TemplateReported by [email or web address] y.o female pt presents with 8 days of painful white ulcerative lesions inside of mouth. Pt denies any other sx's. Tried OTC meds without relief. KODI BALDWIN [address] [facility] [place], [address], [email or web address] 11/23/2022 13:47:39 11/29/2022 text/html Generic HPI TemplateReported by [email or web address] y.o female pt presents with2 weeks white ulcerative lesions inside of mouth. TRied lidocaine, hasnyt helped Pt denies any other sx's. Tried OTC meds without relief. Alejandro Lagos MD [address] [place], [address], [email or web address] 11/29/2022 13:57:48 OBGyn Episode No OBEpisode recorded.
[2025-04-23 21:31] VITALS: BP 125/83; PULSE 93; RESP 20; TEMP 36.7; O2SAT 95
== END 2025-04-23 21:31 | disposition home or self-care (01) ==
PROVIDERS: Physician Assistant; Physician Assistant Medical; Emergency Provider Student in an Organized Health Care Education/Training Program; PCP Internal Medicine
DX: N39.0 Urinary tract infection, site not specified (principal); R11.2 Nausea with vomiting, unspecified; R10.13 Epigastric pain; Z79.899 Other long term (current) drug therapy; Z51.81 Encounter for therapeutic drug level monitoring; Z03.818 Encounter for observation for suspected exposure to other biological agents ruled out
CPT/HCPCS: 36415; 80053; 80307; 81001; 83690; 83735; 85025; 87086; 87088; 87186; 87637; 96361; 96374; 96375; 96376; 99284; J1171; J2405; J2765; J7120

== ENCOUNTER 2025-04-30 21:21 | Inpatient (IN) | payer OTHER, SELFPAY ==
--- NOTE | ~2025-04-30 | XR_ITS ---
CLINICAL HISTORY: central chest pain , vomiting 1 view chest x-ray Comparison: Chest x-ray from 12/27/2024. Findings: No consolidation, pneumothorax, or pleural effusion accounting for mild artifacts. Imaged mediastinum and imaged osseous structures appear unchanged. IMPRESSION: No consolidation. This document has been electronically signed by: Josue Benson MD on 04/30/2025 22:11:59
[2025-04-30 21:23] VITALS: BP 112/71; BP 140/100; PULSE 103; PULSE 98; RESP 22; TEMP 36.6; O2SAT 95; O2SAT 96; BMI 31.4
--- NOTE | 2025-04-30 21:37 | ED.ABDPAIN ---
HPI - Abdominal Pain General Chief Complaint: Abdominal Pain Stated Complaint: Full body seizure unwitnessed & pancreatitis flair History of Present Illness HPI narrative: Author / Clinician: Chino Shields MD Chief Complaint Upper abdominal pain, central chest pain, nausea, vomiting. History of Present Illness 44-year-old female with a history of chronic pancreatitis (on Creon), GERD (on Protonix), anxiety, depression, PTSD, and prior alcohol-withdrawal seizures presents from Bed 5 for evaluation of 2-3 days of progressive upper abdominal discomfort and central chest pain radiating to the left side. She states the pain feels similar to prior pancreatitis episodes. Associated symptoms include nausea and non-bloody, non-bilious vomiting for about a day, bloating, and perceived dark stools. She denies hematemesis or prior GI bleeding. Last alcohol intake was today at approximately 2 PM; she reports increased alcohol consumption recently but cannot quantify the amount. She denies illicit drug use. She reports a history of alcohol-withdrawal seizures but no delirium tremens. Psychiatric history notable for anxiety, depression, and PTSD. She occasionally experiences suicidal thoughts but denies any current suicidal ideation or intent. Current medications include Prazosin, lorazepam, gabapentin, Protonix, and Creon. Review of Systems - Constitutional: Denies fever or chills. Reports feeling anxious. - Cardiovascular: Reports central chest pain radiating to the left side. - Gastrointestinal: Positive for upper abdominal pain, nausea, non-bloody, non-bilious vomiting for about a day, bloating, dark stool. Denies hematemesis. - Neurologic: No current seizures. - Psychiatric: History of anxiety, depression, PTSD; denies current suicidal ideation. --- Physical Examination Vital Signs: Measure Value ------- ----- Physical Exam: Gen: Alert, anxious, tearful, well appearing, well hydrated. Head: Atraumatic. Eyes: Anicteric, normal conjunctiva. ENT: Moist mucosa, no pallor. Neck: Supple. Respiratory: Breathing comfortably, no distress. Clear to auscultation bilaterally, symmetric chest expansion, no wheezes, rales, or rhonchi. Cardiovascular: Regular rhythm, mild tachycardia noted. No murmurs or rubs. Warm, well-perfused extremities; no edema. Abdominal: Soft, mildly distended. Mild tenderness in the upper mid-epigastric area. No guarding, rebound, palpable masses, or organomegaly. No fluid wave appreciated. Neuro: Alert. Gross movement of all extremities intact. Psych: Calm but tearful; anxious; no suicidality. --- Assessment & Plan Preliminary Differential: - Acute exacerbation of chronic pancreatitis - Alcohol-related gastritis / GERD flare - Peptic ulcer disease versus upper GI bleed (melena) - Acute alcohol withdrawal risk - Non-cardiac chest pain (reflux vs pancreatitis-related) Medical Decision Making This is a 44-year-old female with known chronic pancreatitis presenting with epigastric pain and associated symptoms. Work-up initiated to evaluate for pancreatitis, GI bleed, and cardiac causes of chest pain while providing symptomatic relief and addressing potential alcohol-withdrawal risk. Risk: - Moderate: Acute with systemic symptoms Plan: Initial Plan - Analgesia: Morphine IV as needed for pain. Patient later tells me she is allergic to morphine - IV fluids for hydration. - Thiamine repletion. - Laboratory studies: Lipase, electrolytes, other labs as indicated. - EKG. - Chest X-ray. Data Analysis: - Imaging: Independent interpretation of imaging: Chest x-ray clear no infiltrate no effusion normal mediastinum - ECG: Independent interpretation of the ECG: [pending] - POCUS: if performed independently see separate documentation Additional Complexity: - Social Determinants of Health: Active alcohol use with recent increase in intake. --- ED Course, Updates: Lab review reveals no significant actionable findings lipase is not elevated normal thyroid reassuring electrolytes. She has required multiple rounds and repeatedly asking for opioid analgesia. I do think there is some component of opioid dependence here which I have discussed with her we have tried to limit opioids but her pain level is described as too high. Trial with ketamine unsuccessful. Escalating to 1 mg Dilaudid q.4 hours I have ordered phenobarbital as the patient has subjective tremor anxiety withdrawal symptomatology. Possibly acute on chronic pancreatitis flare with intractable abdominal pain no indication for CT imaging given the patient has had 11 CT scans of her abdomen in the last year and has no peritoneal signs on exam Disposition admission Critical Care: [N/A] Past Medical History - Chronic pancreatitis - GERD - Anxiety - Depression - PTSD - History of alcohol-withdrawal seizures Medications - Creon - Protonix - Prazosin - Lorazepam - Gabapentin Social History - Alcohol: Last drink today at 2 PM; reports increased recent intake. - Illicit drugs: Denies use. Related Data Home Medications ?Medication ?Instructions ?Recorded ?Confirmed aripiprazole 10 mg tablet 10 mg PO BEDTIME 05/21/21 05/01/25 doxepin 50 mg capsule 50 mg PO BEDTIME 05/21/21 05/01/25 gabapentin 600 mg tablet 600 mg PO TID 05/21/21 05/01/25 lorazepam 1 mg tablet 1 mg PO TID PRN Anxiety 05/21/21 05/01/25 pantoprazole 40 mg tablet,delayed 40 mg PO DAILY@0630 05/21/21 05/01/25 release bupropion HCl 300 mg 24 hr tablet, 300 mg PO DAILY 09/07/23 05/01/25 extended release folic acid 1 mg tablet 1 mg PO DAILY 09/07/23 05/01/25 pchggj-yqsugnun-szcrxqk 1 cap PO TIDAC 08/23/24 05/01/25 (pork)36,000-114,000-180k unit capsule,del rel (Creon) trazodone 150 mg tablet 150 mg PO BEDTIME 08/23/24 05/01/25 albuterol sulfate 90 mcg/actuation 2 puff inhalation Q4H PRN 11/15/24 05/01/25 aerosol inhaler (Ventolin HFA) Shortness Of Breath Or Wheezing thiamine HCl (vitamin B1) 100 mg 100 mg PO DAILY 12/27/24 05/01/25 tablet multivitamin 1 tab PO DAILY 01/24/25 05/01/25 Previous Rx's ?Medication ?Instructions ?Recorded prazosin 5 mg capsule 5 mg PO BEDTIME 30 days #30 caps 02/18/20 Allergies Allergy/AdvReac Type Severity Reaction Status Date / Time ibuprofen AdvReac Stomach Verified 04/30/25 21:31 Upset morphine AdvReac Gastrointestinal Verified 04/30/25 21:31 Upset bees Allergy Severe Anaphylaxis Uncoded 04/23/25 15:42 [facility] Past Medical History Medical History Alcohol use disorder Barbiturate abuse Cocaine use disorder Pancreatitis Elevated LFTs Alcohol use disorder Chronic pancreatitis Alcohol abuse Alcoholism Suicidal ideations Intentional overdose Chronic cough Chronic pancreatitis Cocaine use Alcohol abuse Obesity (BMI 30.0-34.9) Pancreatitis Back pain Alcohol use disorder, severe, dependence Gastritis Gastritis Endometriosis Constipation Anxiety Depression Bipolar disorder Suicidal behavior PTSD (post-traumatic stress disorder) Surgical History History of ankle surgery Social History Social History Household Members: Spouse Housing: House Do you presently have visiting nurse or other home services: No Alcohol intake: current Alcohol intake frequency: 3 or more drinks per day Alcohol type: beer and hard liquor Comment: pt continues to refuse bed alarm Patient Tobacco Use Status: Former Tobacco user Tobacco use type: Cigarette Cigarette Packs Per Day: 0 Cigarettes Per Day: 0 Smoked in Last 30 Days: No e-Cigarette/Vaping Use: Never Used Patient Interested in Nicotine Replacement: No Patient Given Instructions on How to Stop Smoking: No Second Hand Smoke Exposure: No Use of substances other than those prescribed or required for medical reasons: No Substance Use Type: Crack/Cocaine Have you been hit, kicked, punched, or otherwise hurt by someone within the past year? If so, by whom?: No Do you feel safe in your current relationship?: Yes Spiritual Healthcare Practices: none Advance Directives: Yes Advance Directives on File: Yes Advance Directives Date on File: 09/07/23 Do you have a plan to hurt others: No Plan Recently lost weight without trying: No Nutrition Risks: No Nutritional Risk Patient : No : No service: No Sexual orientation: Straight/Heterosexual Physical Exam ED Vital Signs: Vital Signs - 24 hr 04/30/25 21:23 04/30/25 23:54 Temperature 97.8 F Pulse Rate 103 H 91 Respiratory Rate 22 H 13 Blood Pressure 112/71 120/78 Pulse Oximetry 95 95 Oxygen Delivery Method Room Air Room Air BMI result Body Mass Index 31.4 Medical Decision Making Lab Data 05/01/25 05:45 05/01/25 05:45 Labs: Lab Results 04/30/25 Range/Units 21:57 WBC 10.1 (4.8-10.8) X10*3/uL RBC 4.46 (4.20-5.50) X10*6/uL Hgb 12.5 (12.0-16.0) g/dl Hct 38.5 (37.0-47.0) % MCV 86.3 (80.0-98.0) fL MCH 28.0 (27.0-33.0) pg MCHC 32.5 (31.0-35.0) g/dl RDW 15.6 (11.0-16.0) % Plt Count 281 (160-400) X10*3/uL MPV 9.2 L (9.4-12.3) fL Immature Gran % (Auto) 0.2 (0.0-0.4) % Neut % (Auto) 57.9 (45-73) % Lymph % (Auto) 28.8 (20-40) % [place] % (Auto) 9.6 (2-11) % Eos % (Auto) 2.8 (0-4) % Baso % (Auto) 0.7 (0-2) % Lymph # (Auto) 2.9 (1.2-4.9) X10*3/uL [place] # (Auto) 1.0 (0.1-1.2) X10*3/uL Eos # (Auto) 0.3 (0.0-0.4) X10*3/uL Baso # (Auto) 0.1 (0.0-0.2) X10*3/uL Abs Immat Gran (auto) 0.02 (0.00-0.03) X10*3/uL Absolute Neuts (auto) 5.8 (2.0-8.3) x10*3/uL Absolute Nucleated RBC 0.000 (0.0-0.012) X10*3/uL Nucleated RBC % (auto) 0.0 (0.0-0.2) /100WBC D-Dimer High Sensitivty < 150 NG/ML Sodium 140 (135-145) mmol/L Potassium 3.4 (3.3-5.1) mmol/L Chloride 105 (96-108) mmol/L Carbon Dioxide 23 (22-29) mmol/L Anion Gap 15 (12-20) BUN 4 L (9-16) mg/dL Creatinine 0.61 (0.5-1.4) mg/dL Estim Creat Clear Calc 124.4 Estimated GFR > 60 Random Glucose 116 H (60-115) mg/dL Calcium 8.9 (8.4-10.2) mg/dL Magnesium 1.9 (1.6-2.6) mg/dL Total Bilirubin 1.2 H (0.0-1.0) mg/dL AST 91 H (5-31) U/L ALT 28 (0-31) U/L Alkaline Phosphatase 170 H (39-117) U/L Total Protein 7.0 (6.5-8.0) g/dL Albumin 4.0 (3.5-5.0) g/dL Lipase 9 (8-78) U/L TSH 3.19 (0.32-4.0) uIU/mL Ethyl Alcohol 163 mg/dL Medications Administered Generic Name Dose Route Start Last Admin Trade Name Freq PRN Reason Stop Dose Admin Enoxaparin Sodium 40 mg 05/01/25 09:00 05/01/25 08:23 Enoxaparin Sodium 40 Mg/0.4 Ml Syringe SUBCUT 40 mg Q24H ELIZABETH Administration Folic Acid 1 mg 05/01/25 09:00 05/01/25 08:24 Folic Acid 1 Mg Tablet PO 1 mg DAILY ELIZABETH Administration Gabapentin 600 mg 05/01/25 15:00 05/01/25 13:39 Gabapentin 600 Mg Tablet PO 600 mg TID ELIZABETH Administration Hydromorphone HCl 1 mg 05/01/25 00:36 05/01/25 14:25 Hydromorphone Hcl 1 Mg/Ml Syringe IVPUSH 1 mg Q3H PRN Administration Pain, Severe (Pain Scale 7-10) Protocol Lactated Ringer's 1,000 mls @ 125 mls/hr 05/01/25 00:30 05/01/25 09:28 Lr IVCONT 125 mls/hr .Q8H ELIZABETH Administration Ceftriaxone Sodium 1 gm/ 50 mls @ 100 mls/hr 05/01/25 08:00 05/01/25 09:51 Sodium Chloride IV Infused Q24H ELIZABETH Infusion Metoclopramide HCl 10 mg 05/01/25 01:10 05/01/25 05:21 Metoclopramide Hcl 10 Mg/2 Ml Vial IVPUSH 10 mg Q6H PRN Administration Nausea and Vomiting Ondansetron HCl 4 mg 05/01/25 00:26 05/01/25 01:05 Ondansetron Hcl 4 Mg/2 Ml Vial IVPUSH 4 mg Q8H PRN Administration Nausea and Vomiting Pantoprazole Sodium 40 mg 05/01/25 06:30 05/01/25 06:37 Pantoprazole Sodium 40 Mg/10 Ml Vial IVPUSH 40 mg DAILY@0630 ELIZABETH Administration Phenobarbital 45 mg 05/01/25 14:00 05/01/25 13:39 Phenobarbital 15 Mg Tablet PO 05/02/25 21:01 45 mg BID ELIZABETH Administration Phenobarbital Sodium 230 mg 05/01/25 00:30 05/01/25 01:15 Phenobarbital Sodium 130 Mg/Ml Vial IM 230 mg ONCE ELIZABETH Administration Sodium Chloride 3 ml 05/01/25 08:00 05/01/25 08:24 0.9 % Sodium Chloride Flush 3 Ml Syringe IVFLUSH Not Given QSHIFT ELIZABETH Thiamine HCl 100 mg 05/01/25 09:00 05/01/25 08:24 Thiamine Hcl 100 Mg Tablet PO 100 mg DAILY ELIZABETH Administration Discontinued Medications Generic Name Dose Route Start Last Admin Trade Name Freq PRN Reason Stop Dose Admin Hydromorphone HCl 0.5 mg 04/30/25 21:49 04/30/25 21:53 Hydromorphone Hcl 0.5 Mg/0.5 Ml Syringe IVPUSH 04/30/25 21:50 0.5 mg ONCE ONE Administration Protocol Hydromorphone HCl 1 mg 04/30/25 23:56 05/01/25 02:10 Hydromorphone Hcl 1 Mg/Ml Syringe IVPUSH 04/30/25 23:57 1 mg ONCE ONE Administration Protocol Lactated Ringer's 1,000 mls @ 999 mls/hr 04/30/25 21:45 04/30/25 23:51 Lr IV 04/30/25 23:45 Infused .Q1H1M ELIZABETH Infusion Thiamine HCl 400 mg/ Sodium 104 mls @ 208 mls/hr 04/30/25 21:32 04/30/25 22:39 Chloride IV 04/30/25 22:01 Infused ONCE ONE Infusion Magnesium Sulfate 2 gm in 50 mls @ 150 mls/hr 04/30/25 22:25 04/30/25 23:04 Magnesium Sulfate/H2o IV 04/30/25 22:44 Infused ONCE ONE Infusion Ketamine HCl 20 mg 04/30/25 23:18 04/30/25 23:54 Ketamine Hcl/Ns 100 Mg/10 Ml Syringe IVPUSH 04/30/25 23:19 Not Given ONCE ONE Ketamine HCl 20 mg 04/30/25 23:45 04/30/25 23:55 Ketamine Hcl/Ns 50 Mg/5 Ml Syringe IVPUSH 04/30/25 23:46 20 mg ONCE ONE Administration Phenobarbital Sodium 170 mg 05/01/25 03:30 05/01/25 06:41 Phenobarbital Sodium 65 Mg/Ml Vial IM 05/01/25 06:31 170 mg Q3H ELIZABETH Administration Discharge Plan Discharge Clinical Impression: Pancreatitis Qualifiers: Chronicity: chronic Patient Disposition: Admitted As Inpatient Interventions: Admission Worksheet (ED) Last Done: 05/01/25 04:41 Discharge Date/Time: 05/01/25 09:14
--- OUTSIDE RECORDS SUMMARY | 2025-04-30 21:48 | XMS_ITS | Clinical Summary ---
Author Organization [facility] Address [address] [place] [address] Care Team Providers Care Farmworker Fur Name Role Phone Unavailable Primary Care Provider [...]
[2025-04-30] MEDS: Lactated Ringers 1,000 ML 999 ML IV ×2 (21:49→22:43)
--- OUTSIDE RECORDS SUMMARY | 2025-04-30 21:49 | XMS_ITS | Data Portability ---
Author Organization BRENDA - [facility] - [facility], [facility] Address [address] [place] [address] Care Team Providers Care Bell Neck Hammerer Name Role Phone Anai Lane Primary Care Provider Assessment Encounter Date Assessment [...] truck turned her right foot awkwardly. Using [facility], placed in a CAM boot. She [...] resistance. X-rays ordered, obtained and reviewed at [facility] he views of the foot, ordered and interpreted today demonstrate a displaced fracture of the base of fifth metatarsal with no evidence of periosteal bone reaction Impression:. Displaced united fracture, right fifth metatarsal base. Plan: Talked about conservative versus surgical treatment with her. She is interested in having this fixed. Arrangements will be made. monster Not available 05/14/2024 10:55:47 07/05/2024 07/05/2024 CHIEF COMPLAINT: Postop left foot HISTORY OF PRESENT ILLNESS: Sima is a 43-year-old woman who is over [...] obtained and reviewed by me today at [facility], demonstrating interval healing of her fracture [...] alignment and healing. All questions were answered. [email or web address] Not available 07/05/2024 14:31:50 Plan of Treatment Reminders Order Date Submit Date Provider Name Organization Details Last Modified By Last Modified Time Details Appointments None recorde d. Lab None recorde d. Referral None recorde d. Procedures None recorde d. Surgeries orthopa edic surgery (SURG) 2024 10:31: 18 025 Felix Lambert PA-C [facility] [address] [place], [address], NELL RAMIREZ 5 15:52:23 Imaging XR, foot, 3 or more view 2024 14:11: 36 025 Norbert Mahan MD [facility] [address], [place], [address], [facility] 5 19:44:38 XR, foot, 3 or more view 2024 10:13: 56 025 Felix Lambert PA-C [facility] [address], [place], [address], Shiva Sanchez 5 15:37:27 MedicationOrders None recorde d. VaccineOrders None recorde d. Patient TargetsNo targets recorded. Patient InstructionsNo instructions recorded. Reason for Referral None Reported. Results Created Date Observation Date Name Description Value Unit Range Abnormal Flag Specimen Type Note LastModifiedBy Organization Detail LastModifiedTime 07/05/2024 07/05/2024 foot 3 view [email or web address]=sjTtQfiTV0kXxqKRg2h%9OTKmbXkrpu6lbxs%9Ea0LGm8 ugYuxS1eZhXXwdwRr2HpVLKcRdjSEX6fGsJGlax38p1340SJ9SgdWbNYwSlJuZnzNiC Not Available [facility] , [address] , [place] , [address], , 07/05/2024 14:19:23 07/05/2024 07/05/2024 foot 3 view [email or web address]=pvTmKisBW5nUeeXCy7g%1GMNdbGglma0juxp%2Hj5MZf6 jcRnnM9qSvLShpxJq9MzZSQzOdaVRZ0cOkDYjqc76f4727HF7McwNcMHrCtLcRkyBwK Not Available [facility] , [address] , [place] , [address], , 07/05/2024 14:19:25 Result Notes Documentation Provider Name and Address Organization Details Recorded Time Xr, Foot, 3 Or More View : [email or web address] Encrypted=ocHpGktBT5gOmjY Uv6g%4RIZawVyryu7cehd%2Fg 8QKn0wdXcfR7yAyLHlvzIf8Zq WDYfPvcEVR6mTzSAzfi68v152 4OV7QrvHrMTjJiNlDtsDoV Not Available Critical access hospital 07/05/2024 14:19: 23 Xr, Foot, 3 Or More View : [email or web address] Encrypted=omEvZdyBE3qSnwD Uv6g%6HBTieRkicr4spdf%2Fg 8NAk0waMdvW4eXpNPbkbUc8Yd JBPzOgpJER5gJdVVbhx99f200 6ZP4BmwXsEOuTgMtDztDjI Not Available Critical access hospital 07/05/2024 14:19: 25 Problems Name Problem SNOMED Code Status Onset Date Resolution Date Notes Provider Name and Address Organization Details Recorded Time No complaints 047882639 Active Status : 'A'; Not Available [facility] 4 09:21:44 Problem Notes None recorded. Medical Equipment None Reported. Allergies Allergen ID Allergen Name Allergen Category Reaction Reaction Severity Criticality Documentation Date Start Date Code Code System Note Provider Name and Address Organization Details Recorded Time 883106 ibuprofen medicatio n Not available Not available Not available 04/02/2025 5640 RxNorm Not Available alek - External Data Service - prod 5 04:02:28 806136 acetamino phen medicatio n Not available Not available Not available 04/02/2025 161 RxNorm Not Available alek - External Data Service - prod 5 04:02:28 370768 ondansetr on medicatio n Not available Not available Not available 04/02/2025 84406 RxNorm patie nt has oppos ite effec t - vomit s more Not Available alek - External Data Service - prod 5 04:02:28 365600 [employer] environme nt,medica tion Not available Not available Not available 04/02/2025 46885 6 RxNorm Not Available alek - External Data Service - prod 5 04:03:29 89030 Motrin medicatio n Not available Not available Not available 07/10/2023202248 8 Rx[facility] Not Available [facility] 4 12:08:36 53543 Tylenol medicatio n Not available Not available Not available 07/10/2023202243 3 RxNorm Not Available Critical [facility] 4 12:08:37 Medications Name Authored On Sig Start Date Stop Date Status Note Indication Fill Status Repeat Number Dispense Quantity LastModified by Organization Details LastModified Time aripi prazo le 4 19:03:30 ARIP ipra zole 10MG Tabl et 2022 active Statu s: 'Curr ent'; Not Available Not availab le 0 Not Available Not Available Critical access hospital 07/10/2023 19:03:30 amoxi cilli n 875 mg-po tassi um clavu lanat e 125 mg table t 5 09:53:28 TAKE 1 TABL ET BY MOUT H TWO TIME S A DAY FOR 5 DAYS active Not Available Not availab le 0 Not Available Not Available [facility] 05/14/2024 09:53:28 clotr imazo le-be tamet hason e 1 %-0.0 5 % topic al cream 5 09:53:28 APPL Y TO AFFE CTED AREA TWIC E A DAY FOR 14 DAYS active Not Available Not availab le 0 Not Available Not Available [facility] 05/14/2024 09:53:28 Daily -Farhana table t 5 09:53:28 TAKE 1 TABL ET BY MOUT H EVER Y DAY active Not Available Not availab le 0 Not Available Not Available [facility] 05/14/2024 09:53:28 ibupr ofen 600 mg table t 5 09:53:28 TAKE 1 TABL ET BY MOUT H THRE E TIME S A DAY FOR 30 DAYS active Not Available Not availab le 0 Not Available Not Available [facility] 05/14/2024 09:53:28 ibupr ofen 800 mg table t 5 09:53:28 TAKE 1 TABL ET BY MOUT H THRE E TIME S A DAY FOR 20 DAYS . INS COVE RS 1 TABL ET/D AY active Not Available Not availab le 0 Not Available Not Available [facility] 05/14/2024 09:53:28 lorat adine 10 mg table t 5 09:53:28 active Not Available Not availab le 0 Not Available Not Available [facility] 05/14/2024 09:53:28 alexy onin 3 mg table t 5 09:53:28 active Not Available Not availab le 0 Not Available Not Available [facility] 05/14/2024 09:53:28 methy lpred nisol one 4 mg table ts in a dose pack 5 09:53:28 TAKE 6 TABL ETS ON DAY 1 DIRE CTED ON PACK AGE AND DECR EASE BY 1 TAB EACH DAY FOR A TOTA L OF 6 DAYS active Not Available Not availab le 0 Not Available Not Available [facility] 05/14/2024 09:53:28 naltr exone 50 mg table t 5 09:53:28 TAKE 1 TABL ET BY MOUT H EVER Y DAY active Not Available Not availab le 0 Not Available Not Available [facility] 05/14/2024 09:53:28 nicot ine 21 mg/24 hr daily trans derma l patch 5 09:53:28 active Not Available Not availab le 0 Not Available Not Available [facility] 05/14/2024 09:53:28 nicot ine 7 mg/24 hr daily trans derma l patch 5 09:53:28 APPL Y 1 PATC H TOPI CALL Y EVER Y DAY. LULU VE OLD PATC H BEFO RE APPL EDMUNDO NEW ONE. active Not Available Not availab le 0 Not Available Not Available [facility] 05/14/2024 09:53:28 trazo done 100 mg table t 5 09:53:28 TAKE 1 TABL ET BY EDGAR MCCRACKEN Y AT BEDT ADA TAKE 1 TABL ET BY EDGAR ESPARZA Y SAIGEH T AT BEDT ADA active Not Available Not availab le 0 Not Available Not Available [facility] 05/14/2024 09:53:28 trazo done 50 mg table t 5 09:53:28 active Not Available Not availab le 0 Not Available Not Available [facility] 05/14/2024 09:53:28 Eliqu is 2.5 mg table t 5 12:34:09 TAKE 1 TABL ET BY EDGAR HOLDEN E NAWAF Y active Not Available Not availab le 0 Not Available Not Available [facility] 05/26/2024 12:34:09 Ecotr in 325 mg table t,ent shiva coate d 5 12:52:25 Take 1 tabl et ever y day by oral rout e for 30 days . 07/05 aborted Postoperati ve pain Not availab le 0 Not Available [facility] 07/05/2024 14:14:18 hydro morph one 4 mg table t 5 09:53:28 TAKE 1 TABL ET BY EDGAR Lobato 4 HOUR S NEED ED FOR PAIN 07/05 aborted Not Available Not availab le 0 Not Available [facility] 07/05/2024 14:14:24 ondan setro n HCl 4 mg table t 5 09:53:28 TAKE 1 TABL ET BY EDGAR Lobato 8 HOUR S 07/05 aborted Not Available Not availab le 0 Not Available [facility] 07/05/2024 14:14:28 oxyco done 10 mg table t 5 09:53:28 TAKE 1 TABL ET BY EDGAR ESPARZA Y 6 HOUR S NEED ED FOR PAIN 07/05 aborted Not Available Not availab le 0 Not Available [facility] 07/05/2024 14:14:31 Vitam in D3 125 mcg (5,00 0 unit) table t 5 12:34:09 TAKE 1 TABL ET BY EDGAR ESPARZA Y DAY 07/05 aborted Not Available Not availab le 0 Not Available ANAI KAPOOR [place] [facility] 07/05/2024 14:14:38 lamot rigin e 25 mg table t 5 13:11:38 active Not Available Not availab le 0 Not Available Not Available [facility] 07/21/2024 13:11:38 trama dol 50 mg table t 5 13:17:29 TAKE 1 TABL ET BY EDGAR HOLDEN E NAWAF Y FOR 7 DAYS NEED ED active Not Available Not availab le 0 Not Available Not Available [facility] - External Data Service - prod 07/28/2024 13:17:29 sucra lfate 1 gram table t 5 00:00:54 TAKE 1 TABL ET BY EDGAR HOLDEN E NAWAF Y active Not Available Not availab le 0 Not Available Not Available [facility] - External Data Service - prod 08/30/2024 00:00:54 cepha lexin 500 mg capsu le 5 15:17:56 TAKE 1 CAPS ULE BY EDGAR HOLDEN E NAWAF Y active Not Available Not availab le 0 Not Available Not Available [facility]k - External Data Service - prod 02/16/2025 15:17:56 gabap entin 600 mg table t 5 15:17:56 TAKE 1 TABL ET BY EDGAR Mendez THRE E TIME S NAWAF Y active Not Available Not availab le 0 Not Available Not Available alek - External Data Service - prod 02/16/2025 15:17:56 oxyco done 5 mg table t 5 15:17:56 TAKE 1 TABL ET BY EDGAR ESPARZA Y 6 HOUR S NEED ED FOR MODE RATE PAIN active Not Available Not availab le 0 Not Available Not Available alek - External Data Service - prod 02/16/2025 15:17:56 aripi prazo le 10 mg table t 5 15:17:57 TAKE 1 TABL ET BY EDGAR MCCRACKEN Y AT BEDT ADA active Not Available Not availab le 0 Not Available Not Available alek - External Data Service - prod 02/16/2025 15:17:57 bupro pion HCl XL 300 mg 24 hr table t, exten ded relea se 15:17:57 TAKE 1 TABL ET BY MOUT H EVER Y 24 HOUR S active Not Available Not availab le 0 Not Available Not Available alek - External Data Service - prod 02/16/2025 15:17:57 Creon 36,00 0 unit- 114,0 00 unit- 180,0 00 unit capsu le,de layed relea se 15:17:57 TAKE 1 CAPS ULE BY MOUT H THRE E TIME S NAWAF Y active Not Available Not availab le 0 Not Available Not Available alek - External Data Service - prod 02/16/2025 15:17:57 doxep in 50 mg capsu le 15:17:57 TAKE 1 CAPS ULE BY MOUT H NAWAF Y AT BEDT ADA active Not Available Not availab le 0 Not Available Not Available alek - External Data Service - prod 02/16/2025 15:17:57 hydro morph one 2 mg table t 15:17:57 active Not Available Not availab le 0 Not Available Not Available alek - External Data Service - prod 02/16/2025 15:17:57 Johnna felecia HFA 90 mcg/a ctuat ion aeros ol inhal er 15:17:57 INHA LE 2 PUFF S BY MOUT H EVER Y 4 HOUR S NEED ED FOR WHEE ZING OR SHOR [facility] active Not Available Not availab le 0 Not Available Not Available alek - External Data Service - prod 02/16/2025 15:17:57 hyosc dale e sulfa te 0.125 mg table t 15:17:58 TAKE 1 TABL ET BY MOUT H FOUR TIME S NAWAF Y NEED ED FOR ZOFIA GEST ION active Not Available Not availab le 0 Not Available Not Available alek - External Data Service - prod 02/16/2025 15:17:58 panto prazo le 40 mg table t,del ayed relea se 15:17:58 TAKE 1 TABL ET BY MOUT H NAWAF Y active Not Available Not availab le 0 Not Available Not Available alek - External Data Service - prod 02/16/2025 15:17:58 Vitam in B-1 (mono nitra te) 100 mg table t 15:17:58 TAKE 1 TABL ET BY MOUT H NAWAF Y active Not Available Not availab le 0 Not Available Not Available alek - External Data Service - prod 02/16/2025 15:17:58 ondan setro n 4 mg disin tegra ting table t 15:17:59 DISS OLVE 1 TABL ET ON THE TONG UE EVER Y 8 HOUR S NEED ED FOR NAUS EA OR VOMI TING active Not Available Not availab le 0 Not Available Not Available alek - External Data Service - prod 02/16/2025 15:17:59 folic acid 1 mg table t 14:51:58 TAKE 1 TABL ET BY MOUT H NAWAF Y active Not Available Not availab le 0 Not Available Not Available alek - External Data Service - prod 03/01/2025 14:51:58 prazo sin 5 mg capsu le 14:51:58 TAKE 1 CAPS ULE BY MOUT H NAWAF Y AT BEDT ADA active Not Available Not availab le 0 Not Available Not Available alek - External Data Service - prod 03/01/2025 14:51:58 trazo done 150 mg table t 14:51:58 TAKE 1 TABL ET BY MOUT H NAWAF Y AT BEDT ADA active Not Available Not availab le 0 Not Available Not Available alek - External Data Service - prod 03/01/2025 14:51:58 clind amyci n HCl 300 mg capsu le 11:51:29 TAKE 1 CAPS ULE BY MOUT H THRE E TIME S NAWAF Y FOR 7 DAYS active Not Available Not availab le 0 Not Available Not Available alek - External Data Service - prod 03/30/2025 11:51:29 loraz epam 1 mg table t 5 11:51:29 TAKE 1 TABL ET BY MOUT H THRE E TIME S NAWAF Y NEED ED FOR ANXI ETY active Not Available Not availab le 0 Not Available Not Available alek - External Data Service - prod 03/30/2025 11:51:29 Vitals Date Recorded Body height Body mass index (BMI) Body weight Heart rate Body temperature Respiratory rate Systolic And Diastolic Provider Name and Address Organization Details Last Updated DateTime 165.1 cm 31.6 kg/m2 60826.5 5 g 86 /min 98.5 [degF] 20 /min 125/79 mm[Hg] SAMY LOGANERON [facility] 10:39:10 Date Recorded Body height Body mass index (BMI) Body weight Provider Name and Address Organization Details Last Updated DateTime 05/31/2024 165.1 cm 31.6 kg/m2 81028.55 g QUE ADA [facility] 05/31/2024 14:37:55 Date Recorded Body height Body mass index (BMI) Body weight Provider Name and Address Organization Details Last Updated DateTime 07/05/2024 165.1 cm 31.6 kg/m2 34767.55 g ANAI Levi [facility] 07/05/2024 14:14:08 Social History Social History Observation Description Date Observed Sex Unknown 04/01/2025 Legal Sex Female Status Not (finding) 04/30/20 No social history survey screeners recorded No social history SDOH screeners recorded Functional Status None recorded. No Functional Screening assessment recorded No Functional SDOH screeners recorded Mental Status None recorded. No Mental Screening assessment recorded No Mental SDOH screeners recorded Family History Nothing Reported. Medical History Condition Response Bleeding Disorder Y Anxiety/Depression Y Gynecological HistoryNo gynecological history recorded. Obstetrics History GPAL:G 0 P 0 0 0 0 Past Encounters Encounter ID Performer Location Encounter Start Date Encounter Closed Date Diagnosis/Indication Diagnosis SNOMED-CT Code Diagnosis ICD10 Code Diagnosis IMO Codes Diagnosis Note [id number] MARK ANTHONY [address] [place] [address] 05/14/2024 09:46:22 05/23/2024 16:07:15 Pain in left foot 2002746485 79202 M79.672 075832 Closed fra cture of fifth metatarsal bone 32978790 S92.352A 8289004 Closed fra cture of base of fifth metatarsal bone 605284631 S92.351A 27016819 [id number] MARK ANTHONY [facility] [address] [place] [address] 05/31/2024 14:09:16 06/11/2024 14:19:37 Closed fracture of fifth metatarsal bone 01198772 S92.352A 3504509 [id number] MD YOLANDA Schreiber [address] [place] [address] 07/05/2024 13:52:20 07/21/2024 19:44:37 Pain in left foot 2735695472 53310 M79.672 609354 Postoperative visit 1836 73275 Z48.89 53446497 Health Concerns Section Related Observation LastModified by Organization Det ls LastModified Time None Recorded Concern Status LastModified by Organization Details LastModified Time None Recorded SDOH Concern Status LastModified by Organization [facility] LastModified Time None Recorded Advance Directives Directive None Recorded Payers Insurance Date Sequence Insurance Name Policy Number Policy Ramirez Covered Member ID Ramirez Member ID Guarantor Name 04/01/2025 1 [facility] (MEDICAID HMO) [id number] Sima Schaefer [id number] Sima Schaefer Notes Date Note Type Note Provider [...] questions or concerns. Namrata Olvera PA-C [address], [place], [address], [facility] [place] [facility] 05/31/2024 15:09:27 07/05/2024 text/html ROS as noted in the HPI Norbert Mahan MD [address], [place], [address], [facility] [place] [facility] 07/05/2024 15:08:52 Care Team Name Role Member ID Specialty Address Phone ANAI LANE CNP Primary Care Provider [phone] [id number] [place], [place] OBGyn Episode No OBEpisode recorded.
--- OUTSIDE RECORDS SUMMARY | 2025-04-30 21:49 | XMS_ITS | Data Portability ---
Author Organization KODI [facility] [address] Address [address] [place] [address] Care Team Providers Care Roll Form Operator Name Role Phone NING SCHNEIDERA Primary Care Provider Assessment No assessment recorded. Plan of Treatment Reminders Order Date Submit Date Provider Last Modified By Organization Details Last Modified Time Details Appointments None recorded. Lab None recorded. Referral None recorded. Procedures None recorded. Surgeries None recorded. Imaging None recorded. Medication Orders Lidocaine Viscous 2 % mucosal solution 2022 [address] [id number], [address] [place] [address], [id number], 13:56:49 valacyclovi r 1 gram tablet 2022 023 [facility] #77496, [address] [place] [address], [id number], 3 13:56:50 Lidocaine Viscous 2 % mucosal solution 2022 023 [facility], [address] [place] [address], [id number], 20:01:27 Patient TargetsNo targets recorded. Patient Instructions Encounter Date Encounter Id Patient Instructions Last Modified By Organization Details Last Modified Time 11/17/2022 [id number] Based on your Presentation, Exam, and Lab [...] if you have any questions or concerns. [email or web address] Not available 11/17/2022 20:04:23 11/29/2022 [id number] canker sore: car e instructions [email or web address] Not available 11/29/2022 13:56:47 Reason for Referral None Reported. Problems Name Problem SNOMED Code Status Onset Date Resolution Date Notes Provider Name and Address Organization Details Recorded Time Pancreatitis 38741165 Active Katelynn Ruszala null, PA - [facility] 19:38:29 Acid reflux 286549303 Active Katelynn Ruszala null, PA - [facility] 19:38:40 Anxiety 32749993 Active Katelynn Ruszala null, PA - [facility] 19:38:47 Insomnia 933721814 Active Katelynn Ruszala null, PA - [facility] 19:38:55 Bipolar disorder 48568381 Active 2022 Guerline Batista null, PA - [...] Name and Address Organization Details Recorded Time 406128 ibuprofen medicatio n Not available Not available Not available 11/17/2022 5640 RxNorm Katelynn Isaiahla null, PA - [facility] 3 19:36:01 110950 acetamino phen medicatio n Not available Not available Not available 11/17/2022 161 RxNorm Katelynn Mauriciozala null, PA - [facility] 3 19:36:19 821166 [employer] environme nt,medica tion Not available Not available Not available 11/17/2022 94649 6 RxNorm Katelynn Mauriciozala null, PA - [...] Updated DateTime 3 165.1 cm 28.3 kg/m2 01883.7 g 10 97.1 [degF] 18 /min 97 [...] Updated DateTime 3 165.1 cm 28.3 kg/m2 11331.7 g 9 18 /min 98 % 103 /min 98.1 [degF] 134/81 mm[Hg] Guerline Batista PA - [facility] 3 13:17:58 Social History Question Answer Notes LastModified by [employer] Details LastModified Time Tobacco Smoking Status Current [...] Functional Status Question Answer Note LastModified by [employer] Details LastModified Time How many times per [...] ICD10 Code Diagnosis IMO Codes Diagnosis Note [id number] [facility] [address] [place] [address] 01/09/2017 19:01:44 01/09/2017 20:34:26 [id number] KODI BALDWIN [address] [place] [phone] 11/17/2022 19:16:22 11/17/2022 20:04:03 Aphthous ulcer of mouth 381050511 K12.0 Hand foot and mouth disease 540022325 B08.4 [id number] Alejandro Lagos MD [facility] [address] [place] [phone] 11/29/2022 12:56:12 11/29/2022 14:01:12 Painful mouth 115698224 K13.79 Aphthous u lcer of mouth 491270741 K12.0 Health Concerns Section Related Observation LastModified by Organization Detai ls LastModified Time None Recorded Concern Status LastModified by Organization Details LastModified Time None Recorded Advance Directives Directive None Recorded Payers Insurance Date Sequence Insurance Name Policy Number Policy Ramirez Covered Member ID Ramirez Member ID Guarantor Name 11/17/2022 1 [facility] (MEDICAID REPLACEMENT - HMO) Rufina Schaefer [id number] Rufina Schaefer 11/29/2022 1 [facility] (MEDICAID HMO) [id number] Rufina Schaefer [id number] Rufina Schaefer 11/18/2022 1 [facility] [id number] Rufina Schaefer [id number] Rufina Schaefer 11/17/2022 1 [place] [facility] Rufina Schaefer [id number] Rufina Schaefer Notes Date Note Type Note Provider Name and Address Organization Details Recorded Time 11/17/2022 text/html Generic HPI TemplateReported by [email or web address] y.o female pt presents with 8 days of painful white ulcerative lesions inside of mouth. Pt denies any other sx's. Tried OTC meds without relief. KODI BALDWIN [address] [facility] [place], [address], [facility] 11/23/2022 13:47:39 11/29/2022 text/html Generic HPI TemplateReported by [email or web address] y.o female pt presents with2 weeks white ulcerative lesions inside of mouth. TRied lidocaine, hasnyt helped Pt denies any other sx's. Tried OTC meds without relief. Alejandro Lagos MD [address] [place], [address], [facility] 11/29/2022 13:57:48 OBGyn Episode No OBEpisode recorded.
[2025-04-30 22:02] LABS: MANUAL DIFF FLAG NO
[2025-04-30 22:03] LABS: Hematocrit 38.5 % (37.0-47.0); Hemoglobin 12.5 g/dl (12.0-16.0); Imm Gran Abs Auto 0.02 X10*3/uL (0.00-0.03); Imm Gran Pct Auto 0.2 % (0.0-0.4); Lymphocytes Absolute Auto 2.9 X10*3/uL (1.2-4.9); Mean Corpuscular HGB Conc 32.5 g/dl (31.0-35.0); Mean Corpuscular Hemoglobin 28.0 pg (27.0-33.0); Mean Corpuscular Volume 86.3 fL (80.0-98.0); NRBC Abs Auto 0.000 X10*3/uL (0.0-0.012); NRBC Pct Auto 0.0 /100WBC (0.0-0.2); Platelet Count 281 X10*3/uL (160-400); Red Blood Count 4.46 X10*6/uL (4.20-5.50); White Blood Count 10.1 X10*3/uL (4.8-10.8)
[2025-04-30 22:13] LABS: D Dimer High Sensitivity < 150 NG/ML
[2025-04-30 22:22] LABS: Alanine Aminotransferase 28 U/L (0-31); Albumin Level 4.0 g/dL (3.5-5.0); Alkaline Phosphatase 170 U/L (39-117); Anion Gap 15 (12-20); Aspartate Amino Transferase 91 U/L (5-31); Blood Urea Nitrogen 4 mg/dL (9-16); Calcium 8.9 mg/dL (8.4-10.2); Carbon Dioxide 23 mmol/L (22-29); Chloride 105 mmol/L (96-108); Creatinine Clr Calc Pharmacy 124.4; Estimated Glomerular Filt Rate > 60; Lipase 9 U/L (8-78); Magnesium 1.9 mg/dL (1.6-2.6); Potassium 3.4 mmol/L (3.3-5.1); Sodium 140 mmol/L (135-145); Total Protein 7.0 g/dL (6.5-8.0)
[2025-04-30 22:37] LABS: Thyroid Stimulating Hormone 3.19 uIU/mL (0.32-4.0)
[2025-04-30] MEDS: Magnesium Sulfate/H2O 2 GM/50 ML PIGGYBACK IV (22:41)
[2025-04-30 23:54] VITALS: BP 120/78; PULSE 91; RESP 13; O2SAT 95
[2025-04-30] MEDS: Ketamine HCl/NS 50 MG/5 ML SYRINGE 20 MG IVPUSH (23:55)
[2025-05-01] VITALS (9 sets, daily range): BP systolic 94–158; BP diastolic 56–91; PULSE 86–105; RESP 15–19; TEMP 36.2–37.3; O2SAT 90–96; BMI 33.7
--- NOTE | 2025-05-01 00:28 | PM.IMHP ---
History of Present Illness Date of Service: 05/01/25 Attending physician on admission: Alvaro Felix Chief Complaint: abd pain Patient is a 44-year-old female with PMH alcohol use disorder (binge drinking), tobacco use, cocaine use, anxiety depression, bipolar disorder, PTSD, seizures related to alcohol withdrawal, chronic pancreatitis on Creon, gastritis, hepatic steatosis presents to the ED BIBA for increasing abdominal pain and teeth clenching after using fireball earlier today. Patient thought she may have had a seizure. Pt also reporting yellow diarrhea with mucous. Pt was updated that after last visit to the ED 04/23, she had a UTI and was treated with ABX. Pt curently denies chest pain, shortness of breath at rest, headache, visual changes but is reporting abdominal pain 8/10 and nausea with earlier vomiting. Patient denies SI, HI or hallucinations. Patient is not having any dysphagia or reflux. Reviewed with patient multiple visits to the ED with multiple admissions for chronic pancreatitis secondary to alcohol use. Patient acknowledges that she is seeking pain meds and is also insightful to the fact that if she drinks alcohol or pain will be increased but has never considered pain management as part of her overall health care regimen. Patient understands and verbalizes that she has to stop using alcohol but finds that she can not stop. Patient states she did seek rehabilitation and was in a sober house for a period of time over this past summer and that did work but once she left and went home she continued to drink. Patient recently had an MRCP which does indicate findings of chronic pancreatitis. Patient is on Creon at home. Patient also feels she may have had a slight seizure but attributes only symptom of teeth clenching. Patient has had seizures associated with alcohol withdrawal in the past. ED provider decided against abdominal diagnostic studies as patient's LFTs are relatively lower than usual and patient has had frequent recent scans. Patient did have a chest x-ray which noted no consolidation, pneumothorax or pleural effusion. Patient has no current leukocytosis or anemia. Electrolytes are stable, renal function also within normal limits. Glucose 116. Magnesium 1.9. Patient did receive magnesium IV in the ED. Total bilirubin 1.2, AST 91, ALT 28, alk-phos 170. Lipase 9. Alcohol level 163. Patient being admitted for pain associated with chronic pancreatitis and alcohol use disorder. Review of Systems Review of Systems: Patient currently denies any chest pain, shortness of breath at rest or with exertion, vomiting but reports ongoing abdominal pain now 8/10 and nausea. Patient reports diarrhea that is yellow in color with mucus and denies any fever, chills or night sweats. Patient denies any headache or visual changes. Patient denies any reflux or dysphagia. Patient denies suicidal ideations, heme homicidal ideations or hallucinations. Yes all other systems are reviewed and are negative [facility] Medical History Alcohol use disorder Barbiturate abuse Cocaine use disorder Pancreatitis Elevated LFTs Alcohol use disorder Chronic pancreatitis Alcohol abuse Alcoholism Suicidal ideations Intentional overdose Chronic cough Chronic pancreatitis Cocaine use Alcohol abuse Obesity (BMI 30.0-34.9) Pancreatitis Back pain Alcohol use disorder, severe, dependence Gastritis Gastritis Endometriosis Constipation Anxiety Depression Bipolar disorder Suicidal behavior PTSD (post-traumatic stress disorder) Functional capacity: independent ambulation Patient : No (Has been had vasectomy) Surgical History History of ankle surgery Social History Household Members: None Housing: House Do you presently have visiting nurse or other home services: No Alcohol intake: current Alcohol intake frequency: 3 or more drinks per day Alcohol type: beer and hard liquor Comment: pt continues to refuse bed alarm Patient Tobacco Use Status: Never used Tobacco Tobacco use type: Cigarette Cigarette Packs Per Day: 0 Cigarettes Per Day: 0 e-Cigarette/Vaping Use: Never Used Second Hand Smoke Exposure: Yes Substance Use Type: Crack/Cocaine Advance Directives Date on File: 09/07/23 service: No Sexual orientation: Straight/Heterosexual Meds Allergies Allergy/AdvReac Type Severity Reaction Status Date / Time ibuprofen AdvReac Stomach Verified 04/30/25 21:31 Upset morphine AdvReac Gastrointestinal Verified 04/30/25 21:31 Upset bees Allergy Severe Anaphylaxis Uncoded 04/23/25 15:42 Active Medications: Current Medications Pharmacy Consult (Consult Rx Etoh Phenob Im/Po) 1 each MISCELLANE ONCE PRN; Protocol PRN Reason: Consult order Home Medications ?Medication ?Instructions ?Recorded ?Confirmed ?Last Taken ?Type aripiprazole 10 mg tablet 10 mg PO BEDTIME 05/21/21 03/31/25 03/28/25 History doxepin 50 mg capsule 50 mg PO BEDTIME 05/21/21 03/31/25 03/28/25 History gabapentin 600 mg tablet 600 mg PO TID 05/21/21 03/31/25 03/28/25 History lorazepam 1 mg tablet 1 mg PO TID PRN Anxiety 05/21/21 03/31/25 03/28/25 History pantoprazole 40 mg tablet,delayed 40 mg PO DAILY@0630 05/21/21 03/31/25 03/28/25 History release bupropion HCl 300 mg 24 hr tablet, 300 mg PO DAILY 09/07/23 03/31/25 03/28/25 History extended release folic acid 1 mg tablet 1 mg PO DAILY 09/07/23 03/31/25 03/28/25 History fuuoge-exrejmxy-pyqyuyd 1 cap PO TIDAC 08/23/24 03/31/25 03/28/25 History (pork)36,000-114,000-180k unit capsule,del rel (Creon) trazodone 150 mg tablet 150 mg PO BEDTIME 08/23/24 03/31/25 03/28/25 History albuterol sulfate 90 mcg/actuation 2 puff inhalation Q4H PRN 11/15/24 03/31/25 03/28/25 History aerosol inhaler (Ventolin HFA) Shortness Of Breath Or Wheezing thiamine HCl (vitamin B1) 100 mg 100 mg PO DAILY 12/27/24 03/31/25 03/28/25 History tablet multivitamin 1 tab PO DAILY 01/24/25 03/31/25 03/28/25 History clindamycin HCl 300 mg capsule 300 mg PO TID 03/31/25 03/31/25 03/28/25 History Physical Exam Vital Signs and Narrative: Vital Signs: Last Vital Signs Temp 97.8 F 04/30/25 21:23 Pulse 91 04/30/25 23:54 Resp 13 04/30/25 23:54 BP 120/78 04/30/25 23:54 Pulse Ox 95 04/30/25 23:54 O2 Del Method Room Air 04/30/25 23:54 BMI result Body Mass Index 31.4 Alert and orientated X3, able to give good history. Tearful at times when talking about her inability to stop using alcohol. Neuro: CN II-X11 intact, no deficits, visual acuity intact EYES: PERRLA, EOM intact, sclerae nonicteric, conjunctivae pink ENT: hearing intact, no issues with swallowing, uvula midline, lips moist, nares patent no epistaxis, tongue free of laceration, dentition in stable condition Cardiac: S1 S2 RRR, no murmur, no JVD, no edema in Lower ext Pulmonary: lungs diminished bilaterally Abdominal: BS active in all 4 quadrants, no guarding, moderate upper epigastric tenderness, no rebounding MSK: strength 5/5 upper and lower extremities : no CVA tenderness no bladder distension Extremities: no edema in lower extremities, PT and DP pulses palpable +2 Psych: mood anxious, judgement and insight good Skin: No new rashes or lesion Results Labs 04/30/25 21:57 04/30/25 21:57 Labs: Laboratory Results - last 24 hr 04/30/25 21:57 MCV 86.3 MCH 28.0 MCHC 32.5 RDW 15.6 Plt Count 281 MPV 9.2 L Immature Gran % (Auto) 0.2 Neut % (Auto) 57.9 Lymph % (Auto) 28.8 [place] % (Auto) 9.6 Eos % (Auto) 2.8 Baso % (Auto) 0.7 Lymph # (Auto) 2.9 [place] # (Auto) 1.0 Eos # (Auto) 0.3 Baso # (Auto) 0.1 Abs Immat Gran (auto) 0.02 Absolute Neuts (auto) 5.8 Absolute Nucleated RBC 0.000 Nucleated RBC % (auto) 0.0 D-Dimer High Sensitivty < 150 Anion Gap 15 Estim Creat Clear Calc 124.4 Estimated GFR > 60 Random Glucose 116 H Calcium 8.9 Magnesium 1.9 Total Bilirubin 1.2 H AST 91 H ALT 28 Alkaline Phosphatase 170 H Total Protein 7.0 Albumin 4.0 Lipase 9 TSH 3.19 Ethyl Alcohol 163 Imaging Radiologist's Impressions: Chest x-ray Negative for consolidation, pneumothorax or pleural effusion Assessment and Plan (1) Alcohol use disorder: Status: Acute (2) Chronic pancreatitis: Qualifiers: Pancreatitis type: alcohol induced Qualified Code(s): K86.0 - Alcohol-induced chronic pancreatitis Status: Acute Plan Patient is a 44-year-old female with PMH alcohol use disorder (binge drinking), tobacco use, cocaine use, anxiety depression, bipolar disorder, PTSD, seizures related to alcohol withdrawal, chronic pancreatitis on Creon, gastritis, hepatic steatosis presents to the ED BIBA for increasing abdominal pain and teeth clenching after using fireball earlier today. Patient thought she may have had a seizure. Pt also reporting yellow diarrhea with mucous. Patient being admitted for abdominal pain secondary to chronic pancreatitis secondary to alcohol abuse. Ruling out gastroenteritis vs CDIFF noting recent diarrhea with mucous. Chronic pancreatitis - confirmed via recent MRCP Lactic acid pending NPO IV fluids Pain management with Dilaudid IV Lipase 9 Zofran/Reglan for nausea Alcohol use disorder with history of seizure associated with withdrawal CIWA protocol and Patient is currently on phenobarbital Seizure precautions in place, no physical evidence of actual seizure on admission (pt reported teeth clenching only) Thiamine and folic acid ordered Addictions consulted Patient counseled on the continued risks associated with alcohol use noting her current medical issues including chronic pancreatitis Gastritis associated with alcohol use Protonix IV for now Once no longer NPO can convert to oral medication Diarrhea Rule out gastroenteritis versus C diff Stool panel requested IV fluids started Patient has no leukocytosis, fever or chills Recent UTI/ Ecoli Patient was notified by ED of positive urine culture and was treated with oral antibiotics incomplete therapy UA repeat his pending Patient is currently asymptomatic Tobacco dependence Patient deferred nicotine patch and/or gum Duo nebs p.r.n. Chest x-ray negative for any acute respiratory syndrome History of cocaine use Urine drug screen pending DVT prophylaxis: Lovenox Med rec pending Full code status Patient require at least a 2 midnight stay for alcohol withdrawal protocol with phenobarbital, expert consultation with the addictions and IV medication for pain management. Quality Stroke Does the patient have a stroke diagnosis?: No Reason for No Anti-thrombotic by Day Two: N/A - Med Ordered VTE Prior VTE?: No VTE Risk Level:: Medical - moderate - high VTE Device Contraindication: N/A - Device Ordered VTE Drug Contraindication: N/A - Med Ordered
--- NOTE | 2025-05-01 01:07 | PC.NURSE ---
medicated for nausea.
[2025-05-01] MEDS: Lactated Ringers 1,000 ML 125 ML IVCONT ×3 (01:21→17:48)
[2025-05-01 05:11] LABS: Appearance Urine Cloudy; Glucose Urine UA Negative (Negative); PH 5.5 (5.0-9.0); Specific Gravity - Urine 1.025 (1.005-1.025); UMIC TRIGGER UACC YES
[2025-05-01 05:16] LABS: UACC Culture Trigger YES
[2025-05-01 05:20] LABS: Cannabinoid Screen Urine Not Detected (Not Detect)
[2025-05-01 05:54] LABS: MANUAL DIFF FLAG NO
[2025-05-01 05:55] LABS: Hematocrit 36.2 % (37.0-47.0); Hemoglobin 11.5 g/dl (12.0-16.0); Imm Gran Abs Auto 0.03 X10*3/uL (0.00-0.03); Imm Gran Pct Auto 0.3 % (0.0-0.4); Lymphocytes Absolute Auto 2.2 X10*3/uL (1.2-4.9); Mean Corpuscular HGB Conc 31.8 g/dl (31.0-35.0); Mean Corpuscular Hemoglobin 28.3 pg (27.0-33.0); Mean Corpuscular Volume 88.9 fL (80.0-98.0); NRBC Abs Auto 0.000 X10*3/uL (0.0-0.012); NRBC Pct Auto 0.0 /100WBC (0.0-0.2); Platelet Count 214 X10*3/uL (160-400); Red Blood Count 4.07 X10*6/uL (4.20-5.50); White Blood Count 8.7 X10*3/uL (4.8-10.8)
[2025-05-01 06:11] LABS: Alanine Aminotransferase 24 U/L (0-31); Albumin Level 3.3 g/dL (3.5-5.0); Alkaline Phosphatase 149 U/L (39-117); Anion Gap 15 (12-20); Aspartate Amino Transferase 109 U/L (5-31); Blood Urea Nitrogen 3 mg/dL (9-16); Calcium 8.3 mg/dL (8.4-10.2); Carbon Dioxide 20 mmol/L (22-29); Chloride 106 mmol/L (96-108); Creatinine Clr Calc Pharmacy 126.6; Estimated Glomerular Filt Rate > 60; Potassium 4.1 mmol/L (3.3-5.1); Sodium 137 mmol/L (135-145); Total Protein 6.1 g/dL (6.5-8.0)
--- NOTE | 2025-05-01 10:10 | PHA.MEDREC ---
Pharmacy Consult ? Medication Reconciliation Pharmacy has completed the medication reconciliation. Spoke to patient to confirm medication list. Patient confirmed she is still taking gabapentin 600 mg tid and Creon tid. Last dose of medications was 3 days ago 04/28/25.
[2025-05-01] MEDS: PHENobarbital 15 MG TABLET 45 MG PO ×2 (13:39→20:39)
--- NOTE | 2025-05-01 14:49 | PC.NURSE ---
Pt is alert and oriented x4. C/o sharp abdominal pain / that radiates to her lower back. Pain controlled/tolerable after administration, but Pt requesting pain medication 1.5-2 hours later. Pt reported feeling dizzy from lack of oral intake and has asked repeatedly if she can have clear liquids. Per provider, she remains NPO with ice chips. She reports her last BM was mucus. She reports light sensitivity. She has chronic numbness, tingling to feet. Reports insomnia that generally responds well to her trazadone.
[2025-05-02] VITALS (15 sets, daily range): BP systolic 101–131; BP diastolic 59–76; PULSE 85–114; RESP 16–20; TEMP 36.4–37.6; O2SAT 92–96
[2025-05-02] MEDS: Lactated Ringers 1,000 ML 125 ML IVCONT ×3 (02:44→19:13)
[2025-05-02] MEDS: buPROPion HCl XL 300 MG TAB.ER.24H PO (08:16)
[2025-05-02] MEDS: PHENobarbital 15 MG TABLET 45 MG PO ×2 (08:16→20:09)
[2025-05-02] MEDS: 0.9 % Sodium Chloride Flush 3 ML SYRINGE IVFLUSH (08:17)
[2025-05-02 08:35] LABS: Hematocrit 30.5 % (37.0-47.0); Hemoglobin 9.6 g/dl (12.0-16.0); Mean Corpuscular HGB Conc 31.5 g/dl (31.0-35.0); Mean Corpuscular Hemoglobin 28.3 pg (27.0-33.0); Mean Corpuscular Volume 90.0 fL (80.0-98.0); NRBC Abs Auto 0.000 X10*3/uL (0.0-0.012); NRBC Pct Auto 0.0 /100WBC (0.0-0.2); Platelet Count 175 X10*3/uL (160-400); Red Blood Count 3.39 X10*6/uL (4.20-5.50); White Blood Count 5.5 X10*3/uL (4.8-10.8)
[2025-05-02 08:54] LABS: Alanine Aminotransferase 17 U/L (0-31); Albumin Level 3.1 g/dL (3.5-5.0); Alkaline Phosphatase 112 U/L (39-117); Anion Gap 12 (12-20); Aspartate Amino Transferase 62 U/L (5-31); Blood Urea Nitrogen 3 mg/dL (9-16); Calcium 8.2 mg/dL (8.4-10.2); Carbon Dioxide 27 mmol/L (22-29); Chloride 102 mmol/L (96-108); Creatinine Clr Calc Pharmacy 123.1; Estimated Glomerular Filt Rate > 60; Potassium 3.5 mmol/L (3.3-5.1); Sodium 137 mmol/L (135-145); Total Protein 5.4 g/dL (6.5-8.0)
[2025-05-02] MEDS: Lipase/Prot/Amylase 12/38/60K CAPSULE.DR 3 CAP PO ×2 (11:26→16:10)
--- NOTE | 2025-05-02 12:20 | PC.NURSE ---
12:10- Patient arrived to unit, alert and oriented. Pleasant, conversing. Call doherty within reach. Bed alarm on. Patient educated to utilize call doherty for assistance to bathroom, patient verbalized understanding. Seizure pads placed on bed.
--- NOTE | 2025-05-02 12:28 | P.PNIM_ITS ---
Subjective Subjective Date of Service: 05/02/25 Interval History: Reports epigastric abdominal pain has improved significantly, with resumption of appetite Reports nausea and vomiting have resolved currently Would like to progress with clear liquid diet Will oblige Review of Systems Review of Systems: Yes all other systems are reviewed and are negative Physical Exam 2 Exam: Exam: General: A&O x3, oriented to time place person and situation, comfortable, no pain Cardiac: S1, S2 auscultated with no S3/4, no MRG. Well perfused. Respiratory: Normal breath sounds auscultated throughout all lung zones, without wheezing, rales. Normal rate. GI/ : Minimal pain on palpation of the epigastrium on light and deep palpation, no hepatosplenomegaly, -ve ballottement, no jaundice or icterus, spider nevi MSK: Normal ambulation without pain at bony prominences or musculature Neurological: Normal neurological examination on overview, without obvious CN II-XII abnormalities. Vital Signs: Vital Signs: Last Vital Signs Temp 99 F 05/02/25 11:38 Pulse 99 05/02/25 11:38 Resp 18 05/02/25 11:38 BP 131/76 05/02/25 11:38 Pulse Ox 95 05/02/25 11:38 O2 Del Method Room Air 05/02/25 11:38 BMI result Body Mass Index 33.7 Objective Data Active Medications Acetaminophen (Acetaminophen 325 Mg Tablet) 650 mg PO Q6H PRN PRN Reason: Pain, Mild 1-3,fever,headache Albuterol/Ipratropium (Albuterol/Iprat 2.5/0.5mg 3 Ml Ampul.Neb) 3 ml INHALE Q4H PRN PRN Reason: Shortness of Breath/Wheezing Lipase/Protease/Amylase (Lipase/Prot/Amylase /60k Capsule.Dr) 3 cap PO TIDAC [facility] Last Admin: 05/02/25 11:26 Dose: 3 cap Documented By: JUAN Aripiprazole (Aripiprazole 10 Mg Tablet) 10 mg PO BEDTIME [facility] Last Admin: 05/01/25 20:39 Dose: 10 mg Documented By: EDMUND Bupropion HCl (Bupropion Hcl Xl 300 Mg Tab.Er.24h) 300 mg PO DAILY [facility] Last Admin: 05/02/25 08:16 Dose: 300 mg Documented By: JUAN Calcium Carbonate (Calcium Carbonate 750 Mg Tab.Chew) 750 mg PO Q4H PRN PRN Reason: Heartburn Doxepin HCl (Doxepin Hcl 25 Mg Capsule) 50 mg PO BEDTIME [facility] Last Admin: 05/01/25 20:39 Dose: 50 mg Documented By: EDMUND Enoxaparin Sodium (Enoxaparin Sodium 40 Mg/0.4 Ml Syringe) 40 mg SUBCUT Q24H [facility] Last Admin: 05/02/25 08:17 Dose: 40 mg Documented By: JUAN Folic Acid (Folic Acid 1 Mg Tablet) 1 mg PO DAILY [facility] Last Admin: 05/02/25 08:16 Dose: 1 mg Documented By: JUAN Gabapentin (Gabapentin 600 Mg Tablet) 600 mg PO TID [facility] Last Admin: 05/02/25 08:16 Dose: 600 mg Documented By: JUAN Hydromorphone HCl (Hydromorphone Hcl 1 Mg/Ml Syringe) 1 mg IVPUSH Q3H PRN; Protocol PRN Reason: Pain, Severe (Pain Scale 7-10) Last Admin: 05/02/25 09:56 Dose: 1 mg Documented By: DEBBI Hydromorphone HCl (Hydromorphone Hcl 1 Mg/Ml Syringe) 0.5 mg IVPUSH Q3H PRN; Protocol PRN Reason: Pain, Moderate(Pain Scale 4-6) Lactated Ringer's (Lr) 1,000 mls @ 125 mls/hr IVCONT .Q8H [facility] Last Admin: 05/02/25 12:16 Dose: 125 mls/hr Documented By: JEROME Ceftriaxone Sodium 1 gm/ (Sodium Chloride) 50 mls @ 100 mls/hr IV Q24H [facility] Last Infusion: 05/02/25 09:06 Dose: Infused Documented By: JUAN Lorazepam (Lorazepam 1 Mg Tablet) 1 mg PO TID PRN PRN Reason: Anxiety Last Admin: 05/01/25 20:49 Dose: 1 mg Documented By: EDMUND Magnesium Hydroxide (Milk Of Magnesia 30 Ml Oral.Susp) 30 ml PO DAILY PRN PRN Reason: Constipation Melatonin (Melatonin 3 Mg Tablet) 6 mg PO BEDTIME PRN PRN Reason: Insomnia Metoclopramide HCl (Metoclopramide Hcl 10 Mg/2 Ml Vial) 10 mg IVPUSH Q6H PRN PRN Reason: Nausea and Vomiting Last Admin: 05/01/25 16:52 Dose: 10 mg Documented By: ARVIN Ondansetron HCl (Ondansetron Hcl 4 Mg/2 Ml Vial) 4 mg IVPUSH Q8H PRN PRN Reason: Nausea and Vomiting Last Admin: 05/01/25 01:05 Dose: 4 mg Documented By: CLAUDIO Pantoprazole Sodium (Pantoprazole Sodium 40 Mg/10 Ml Vial) 40 mg IVPUSH DAILY@0630 [facility] Last Admin: 05/02/25 06:18 Dose: 40 mg Documented By: YOVANNY Pharmacy Consult (Consult Rx Etoh Phenob Im/Po) 1 each MISCELLANE ONCE PRN; Protocol PRN Reason: Consult order Phenobarbital (Phenobarbital 15 Mg Tablet) 45 mg PO BID [facility] Stop: 05/02/25 21:01 Last Admin: 05/02/25 08:16 Dose: 45 mg Documented By: JUAN Phenobarbital (Phenobarbital 15 Mg Tablet) 15 mg PO BID [facility] Stop: 05/04/25 21:01 Phenobarbital (Phenobarbital 15 Mg Tablet) 15 mg PO DAILY [facility] Stop: 05/06/25 09:01 Phenobarbital Sodium (Phenobarbital Sodium 130 Mg/Ml Vial) 230 mg IM ONCE [facility] Last Admin: 05/01/25 01:15 Dose: 230 mg Documented By: DAVINA Polyethylene Glycol (Polyethylene Glycol 3350 17 Gm Powd.Pack) 17 gm PO DAILY PRN PRN Reason: Constipation Prazosin HCl (Prazosin Hcl 5 Mg Capsule) 5 mg PO BEDTIME [facility]; Protocol Last Admin: 05/01/25 20:40 Dose: 5 mg Documented By: EDMUND Senna (Sennosides 8.6 Mg Tablet) 17.2 mg PO BEDTIME [facility] Last Admin: 05/01/25 20:41 Dose: Not Given Documented By: EDMUND Non-Admin Reason: Patient Refused Sodium Chloride (0.9 % Sodium Chloride Flush 3 Ml Syringe) 3 ml IVFLUSH QSHIFT [facility] Last Admin: 05/02/25 08:17 Dose: 3 ml Documented By: JUAN Thiamine HCl (Thiamine Hcl 100 Mg Tablet) 100 mg PO DAILY [facility] Last Admin: 05/02/25 08:16 Dose: 100 mg Documented By: JUAN Trazodone HCl (Trazodone Hcl 50 Mg Tablet) 150 mg PO BEDTIME [facility] Last Admin: 05/01/25 20:40 Dose: 150 mg Documented By: EDMUND Labs 05/02/25 08:08 05/02/25 08:08 Labs: Laboratory Results - last 24 hr 05/02/25 08:08 MCV 90.0 MCH 28.3 MCHC 31.5 RDW 15.5 Plt Count 175 MPV 9.9 Absolute Nucleated RBC 0.000 Nucleated RBC % (auto) 0.0 Anion Gap 12 Estim Creat Clear Calc 123.1 Estimated GFR > 60 Random Glucose 94 Calcium 8.2 L Total Bilirubin 1.8 H AST 62 H ALT 17 Alkaline Phosphatase 112 Total Protein 5.4 L Albumin 3.1 L Microbiology Microbiology Results: Microbiology 05/01/25 Unknown Urine Culture - Preliminary Urine clean catch - Clean Catch Midstream Gram negative shantel Assessment and Plan (1) PTSD (post-traumatic stress disorder): Status: Acute (2) Barbiturate abuse: Status: Acute (3) Cocaine use disorder: Status: Acute (4) Alcohol use disorder: Status: Acute (5) Chronic pancreatitis: Status: Acute (6) Pancreatitis: Status: Acute (7) Chronic abdominal pain: Status: Acute (8) Bipolar disorder: Status: Acute Plan 44-year-old woman with severe alcohol use disorder complicated by recurrent alcohol?induced chronic pancreatitis, prior alcohol?withdrawal seizures, polysubstance use, and psychiatric comorbidities, presenting with [id number] epigastric abdominal pain after recent alcohol intake, admitted for pain control and management of alcohol withdrawal risk; course notable for normal lipase, stable labs, ongoing IV opioid requirement, and phenobarbital- based withdrawal protocol. Acute on Chronic Alcohol?Induced Pancreatitis Recent MRCP (04/01/25) confirms chronic pancreatitis with pancreatic ductal dilation and intraductal stones, without evidence of acute inflammation. Current admission marked by epigastric pain consistent with prior flares despite normal lipase and no peritoneal signs; imaging deferred given extensive prior CT exposure. Plan: * NPO initially; advance diet as tolerated based on pain and nausea. * IV fluids with lactated Ringer?s; reassess volume status daily. * Pain control with IV hydromorphone PRN; reassess daily for transition to oral regimen and minimize escalation. * Antiemetics PRN (ondansetron, metoclopramide). * Resume pancreatic enzyme replacement (Creon) once tolerating PO. * No additional abdominal imaging unless clinical deterioration. Alcohol Use Disorder with History of Withdrawal Seizures Active alcohol use prior to arrival with elevated ethanol level; history significant for withdrawal-related seizures. Currently managed with phenobarbital protocol; no objective seizure activity on admission. Plan: * Continue phenobarbital-based withdrawal protocol with CIWA monitoring. * Seizure precautions in place. * Thiamine, folic acid, and multivitamin daily. * Avoid benzodiazepine escalation unless clinically indicated. * Addiction Medicine consult for inpatient counseling and disposition planning. * Reinforce alcohol cessation given recurrent pancreatitis and frequent hospitalizations. Abdominal Pain / Opioid Dependence Risk Pain disproportionate to objective findings with frequent opioid requests; ketamine trial ineffective in ED. Plan: * Use lowest effective opioid dose with clear reassessment parameters. * Encourage multimodal pain control (acetaminophen if tolerated, gabapentin continuation). * Avoid NSAIDs given gastritis history and intolerance. * Discuss expectations around pain control and risks of chronic opioid use. Gastritis / GERD Alcohol-related gastritis contributing to epigastric pain and nausea; no evidence of active GI bleeding. Plan: * Continue IV pantoprazole while NPO; convert to oral once diet resumed. * Monitor for melena, hematemesis, or drop in hemoglobin. Diarrhea Reports yellow, mucus-containing stools; recent antibiotic exposure raises concern for infectious etiology, though currently afebrile without leukocytosis. Plan: * Stool studies including C. difficile and GI pathogen panel. * Maintain hydration. * Reassess need for isolation based on results. Recent UTI (E. coli) ? Status Post Incomplete Treatment Recently informed of positive urine culture; currently asymptomatic. Plan: * Repeat urinalysis pending. * No empiric antibiotics unless symptoms or abnormal UA develop. Psychiatric Comorbidities (Bipolar Disorder, Anxiety, PTSD, Depression) Psychiatric history significant but no active SI/HI; emotionally distressed regarding alcohol dependence. Plan: * Continue home psychiatric medications as reconciled. * Monitor mood and safety during hospitalization. * Consider Psychiatry consult if mood destabilization or safety concerns arise. Substance Use History (Cocaine) History of cocaine use; denies recent use. Plan: * Urine drug screen pending. 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 Tobacco Exposure Secondhand smoke exposure; patient declined nicotine replacement. Plan: * Re-offer cessation support if patient amenable. * PRN bronchodilators as ordered. --------- [employer] * VTE Prophylaxis:?Enoxaparin 40 mg daily * Code Status:?Full Code * Diet:?NPO --> clear liquid diet * Pain Reassessment:?Daily * Disposition Planning:?Addiction Medicine involvement ongoing Total time managing care of this patient today: 45 minutes. Quality Stroke Does the patient have a stroke diagnosis?: No Reason for No Anti-thrombotic by Day Two: N/A - Med Ordered VTE Prior VTE?: No VTE Risk Level:: Medical - moderate - high VTE Device Contraindication: N/A - Device Ordered VTE Drug Contraindication: N/A - Med Ordered
--- NOTE | 2025-05-02 14:42 | HO.ADDICTCON ---
History of Present Illness Date of Service: 05/02/2025 Chief Complaint: ETOH use, adb pain Reason for Consult: AUD Sources of Information: patient interviewed and chart reviewed HPI Narrative: Patient is a 44 year old female with AUD, Bipolar disorder and chronic pancreatitis. Currently medically admitted with acute pancreatitis. Chart review shows that since May 2024 patient has been to the [facility] 17 times and medically admitted 12 times. Each admission related to pancreatitis secondary to ongoing alcohol use. Patient seen in room 376. She is awake, alert, pleasant and engaged in interview. She reports that pain is improving and she has been able to tolerate broth and jello. Withdrawal sx well managed, mild tremor noted-otherwise none noted or reported by patient. Discussed patients goals related to alcohol use, and patient states that her goal is to abstain completely, however this has been difficult for her. Some minimizing in terms of amount of alcohol consumed and how often-t/w gently challenged this with patient by reinforcing the impact of consuming any alcohol over the last 12 months (reviewed exact number or admissions and ED visits). Pt unaware of how frequently she had been here in the last year. Prior to this year, she had been to [facility] once in 2023. She cited increasing social stressors, loss of a family member and significant guilt of not being at home -which is why she has been avoiding treatment. She reports she has been to treatment in the past and has found it to be very helpful in managing her AUD. T/w also raised possibility that opiate dependance has developed over the last year due to the number of admissions all necessitating opiates to manage pain, as well as short prescriptions at discharge. Provided education around tolerance and dependance, also provided education around withdrawal sx and how they present and the similarities with sx that bring her to the hospital. Initially patient did not feel this was a possibility based on the length of her prescriptions (5-7 day supplies), however after t/w reviewed [employer] data with her in combination with time in the hospital, she was more open to that possibility. Patient reports a strong family history of AUD and substance use disorders in general. She also reports that her mother is a very strong support for her and has been encouraging her to seek treatment. Labs reviewed Past Psychiatric History: Denies history of SA/SIB. Prescriber: Megan Lopez ([facility]) Therapist: does not have History of detox admissions. History of 2 other inpatient psychiatric hospitalizations. Medical Evaluation Reviewed: Yes Review of Systems Constitutional: Reports as per HPI Diagnostics Vital Signs (24Hr): Vital Signs - 24 hr 05/01/25 15:47 05/01/25 19:18 05/01/25 23:10 Temperature 98.1 F 98.6 F 99.1 F Pulse Rate 96 86 98 Respiratory Rate 18 15 19 Blood Pressure 129/91 H 158/82 H 99/56 L Pulse Oximetry 94 94 90 L Oxygen Delivery Method Room Air Room Air Room Air 05/01/25 23:30 05/01/25 23:59 05/02/25 00:29 Temperature Pulse Rate Respiratory Rate 18 16 Blood Pressure 94/58 L Pulse Oximetry Oxygen Delivery Method 05/02/25 03:01 05/02/25 03:31 05/02/25 03:55 Temperature 99.7 F Pulse Rate 97 Respiratory Rate 18 16 16 Blood Pressure 116/63 Pulse Oximetry 92 Oxygen Delivery Method Room Air 05/02/25 06:18 05/02/25 06:48 05/02/25 08:00 Temperature 99 F Pulse Rate 96 Respiratory Rate 20 16 18 Blood Pressure 121/69 Pulse Oximetry 92 Oxygen Delivery Method Room Air 05/02/25 11:38 05/02/25 12:58 Temperature 99 F Pulse Rate 99 Respiratory Rate 18 16 Blood Pressure 131/76 Pulse Oximetry 95 Oxygen Delivery Method Room Air BMI result Body Mass Index 33.7 Labs 05/02/25 08:08 05/02/25 08:08 Labs: Laboratory Results - last 48 hr 04/30/25 05/01/25 05/01/25 21:57 01:33 05:00 WBC 10.1 RBC 4.46 Hgb 12.5 Hct 38.5 MCV 86.3 MCH 28.0 MCHC 32.5 RDW 15.6 Plt Count 281 MPV 9.2 L Immature Gran % (Auto) 0.2 Neut % (Auto) 57.9 Lymph % (Auto) 28.8 [place] % (Auto) 9.6 Eos % (Auto) 2.8 Baso % (Auto) 0.7 Lymph # (Auto) 2.9 [place] # (Auto) 1.0 Eos # (Auto) 0.3 Baso # (Auto) 0.1 Abs Immat Gran (auto) 0.02 Absolute Neuts (auto) 5.8 Absolute Nucleated RBC 0.000 Nucleated RBC % (auto) 0.0 D-Dimer High Sensitivty < 150 Sodium 140 Potassium 3.4 Chloride 105 Carbon Dioxide 23 Anion Gap 15 BUN 4 L Creatinine 0.61 Estim Creat Clear Calc 124.4 Estimated GFR > 60 Random Glucose 116 H Lactic Acid 1.8 Calcium 8.9 Magnesium 1.9 Total Bilirubin 1.2 H AST 91 H ALT 28 Alkaline Phosphatase 170 H Total Protein 7.0 Albumin 4.0 Lipase 9 TSH 3.19 Urine Color Dark Yellow Urine Appearance Cloudy Urine pH 5.5 Ur Specific [place] 1.025 Urine Protein 30 (1+) H Urine Glucose (UA) Negative Urine Ketones Trace Urine Blood Negative Urine Nitrite Positive H Ur Leukocyte Esterase Moderate (2+) H Urine RBC 0-2 Urine WBC >50 H Ur Squamous Epith Cells 0-2 Urine Bacteria 4+ Hyaline Casts 0-2 Urine Opiates Screen POSITIVE H Ur Buprenorphine Scrn Not Detected Ur Oxycodone Screen Not Detected Urine Methadone Screen Not Detected Urine Fentanyl Screen Not Detected Ur Barbiturates Screen POSITIVE H Ur Phencyclidine Scrn Not Detected Ur Amphetamines Screen Not Detected U Benzodiazepines Scrn Not Detected Urine Cocaine Screen POSITIVE H U Marijuana (THC) Screen Not Detected Ethyl Alcohol 163 05/01/25 05/02/25 05:45 08:08 WBC 8.7 5.5 RBC 4.07 L 3.39 L Hgb 11.5 L 9.6 L Hct 36.2 L 30.5 L MCV 88.9 90.0 MCH 28.3 28.3 MCHC 31.8 31.5 RDW 15.8 15.5 Plt Count 214 175 MPV 9.3 L 9.9 Immature Gran % (Auto) 0.3 Neut % (Auto) 60.6 Lymph % (Auto) 25.1 [place] % (Auto) 10.2 Eos % (Auto) 3.1 Baso % (Auto) 0.7 Lymph # (Auto) 2.2 [place] # (Auto) 0.9 Eos # (Auto) 0.3 Baso # (Auto) 0.1 Abs Immat Gran (auto) 0.03 Absolute Neuts (auto) 5.3 Absolute Nucleated RBC 0.000 0.000 Nucleated RBC % (auto) 0.0 0.0 D-Dimer High Sensitivty Sodium 137 137 Potassium 4.1 D 3.5 Chloride 106 102 Carbon Dioxide 20 L 27 Anion Gap 15 12 BUN 3 L 3 L Creatinine 0.60 0.64 Estim Creat Clear Calc 126.6 123.1 Estimated GFR > 60 > 60 Random Glucose 104 94 Lactic Acid Calcium 8.3 L D 8.2 L Magnesium Total Bilirubin 1.8 H 1.8 H AST 109 H 62 H ALT 24 17 Alkaline Phosphatase 149 H 112 Total Protein 6.1 L 5.4 L Albumin 3.3 L 3.1 L Lipase TSH Urine Color Urine Appearance Urine pH Ur Specific [place] Urine Protein Urine Glucose (UA) Urine Ketones Urine Blood Urine Nitrite Ur Leukocyte Esterase Urine RBC Urine WBC Ur Squamous Epith Cells Urine Bacteria Hyaline Casts Urine Opiates Screen Ur Buprenorphine Scrn Ur Oxycodone Screen Urine Methadone Screen Urine Fentanyl Screen Ur Barbiturates Screen Ur Phencyclidine Scrn Ur Amphetamines Screen U Benzodiazepines Scrn Urine Cocaine Screen U Marijuana (THC) Screen Ethyl Alcohol Mental Status Exam Mental Status Exam Patient Appearance: Appropriate Level of Consciousness: Awake, Appropriate and Alert Patient Behavior: Appropriate and Cooperative Affect Description: Appropriate (tearful ) Speech Pattern: Clear Hallucinations: None Thought Process: Intact Thought Content: positive for Intact Judgement: Good Medications Medications Current Medications Acetaminophen (Acetaminophen 325 Mg Tablet) 650 mg PO Q6H PRN PRN Reason: Pain, Mild 1-3,fever,headache Albuterol/Ipratropium (Albuterol/Iprat 2.5/0.5mg 3 Ml Ampul.Neb) 3 ml INHALE Q4H PRN PRN Reason: Shortness of Breath/Wheezing Lipase/Protease/Amylase (Lipase/Prot/Amylase 12/38/60k Capsule.) 3 cap PO TIDAC [facility] Last Admin: 05/02/25 11:26 Dose: 3 cap Aripiprazole (Aripiprazole 10 Mg Tablet) 10 mg PO BEDTIME [facility] Last Admin: 05/01/25 20:39 Dose: 10 mg Bupropion HCl (Bupropion Hcl Xl 300 Mg Tab.Er.24h) 300 mg PO DAILY [facility] Last Admin: 05/02/25 08:16 Dose: 300 mg Calcium Carbonate (Calcium Carbonate 750 Mg Tab.Chew) 750 mg PO Q4H PRN PRN Reason: Heartburn Doxepin HCl (Doxepin Hcl 25 Mg Capsule) 50 mg PO BEDTIME [facility] Last Admin: 05/01/25 20:39 Dose: 50 mg Enoxaparin Sodium (Enoxaparin Sodium 40 Mg/0.4 Ml Syringe) 40 mg SUBCUT Q24H [facility] Last Admin: 05/02/25 08:17 Dose: 40 mg Folic Acid (Folic Acid 1 Mg Tablet) 1 mg PO DAILY [facility] Last Admin: 05/02/25 08:16 Dose: 1 mg Gabapentin (Gabapentin 600 Mg Tablet) 600 mg PO TID [facility] Last Admin: 05/02/25 08:16 Dose: 600 mg Hydromorphone HCl (Hydromorphone Hcl 1 Mg/Ml Syringe) 1 mg IVPUSH Q3H PRN; Protocol PRN Reason: Pain, Severe (Pain Scale 7-10) Last Admin: 05/02/25 12:58 Dose: 1 mg Hydromorphone HCl (Hydromorphone Hcl 1 Mg/Ml Syringe) 0.5 mg IVPUSH Q3H PRN; Protocol PRN Reason: Pain, Moderate(Pain Scale 4-6) Lactated Ringer's (Lr) 1,000 mls @ 125 mls/hr IVCONT .Q8H [facility] Last Admin: 05/02/25 12:16 Dose: 125 mls/hr Ceftriaxone Sodium 1 gm/ (Sodium Chloride) 50 mls @ 100 mls/hr IV Q24H [facility] Last Infusion: 05/02/25 09:06 Dose: Infused Lorazepam (Lorazepam 1 Mg Tablet) 1 mg PO TID PRN PRN Reason: Anxiety Last Admin: 05/01/25 20:49 Dose: 1 mg Magnesium Hydroxide (Milk Of Magnesia 30 Ml Oral.Susp) 30 ml PO DAILY PRN PRN Reason: Constipation Melatonin (Melatonin 3 Mg Tablet) 6 mg PO BEDTIME PRN PRN Reason: Insomnia Metoclopramide HCl (Metoclopramide Hcl 10 Mg/2 Ml Vial) 10 mg IVPUSH Q6H PRN PRN Reason: Nausea and Vomiting Last Admin: 05/01/25 16:52 Dose: 10 mg Ondansetron HCl (Ondansetron Hcl 4 Mg/2 Ml Vial) 4 mg IVPUSH Q8H PRN PRN Reason: Nausea and Vomiting Last Admin: 05/01/25 01:05 Dose: 4 mg Pantoprazole Sodium (Pantoprazole Sodium 40 Mg/10 Ml Vial) 40 mg IVPUSH DAILY@0630 [facility] Last Admin: 05/02/25 06:18 Dose: 40 mg Pharmacy Consult (Consult Rx Etoh Phenob Im/Po) 1 each MISCELLANE ONCE PRN; Protocol PRN Reason: Consult order Phenobarbital (Phenobarbital 15 Mg Tablet) 45 mg PO BID [facility] Stop: 05/02/25 21:01 Last Admin: 05/02/25 08:16 Dose: 45 mg Phenobarbital (Phenobarbital 15 Mg Tablet) 15 mg PO BID [facility] Stop: 05/04/25 21:01 Phenobarbital (Phenobarbital 15 Mg Tablet) 15 mg PO DAILY [facility] Stop: 05/06/25 09:01 Phenobarbital Sodium (Phenobarbital Sodium 130 Mg/Ml Vial) 230 mg IM ONCE [facility] Last Admin: 05/01/25 01:15 Dose: 230 mg Polyethylene Glycol (Polyethylene Glycol 3350 17 Gm Powd.Pack) 17 gm PO DAILY PRN PRN Reason: Constipation Prazosin HCl (Prazosin Hcl 5 Mg Capsule) 5 mg PO BEDTIME [facility]; Protocol Last Admin: 05/01/25 20:40 Dose: 5 mg Senna (Sennosides 8.6 Mg Tablet) 17.2 mg PO BEDTIME [facility] Last Admin: 05/01/25 20:41 Dose: Not Given Sodium Chloride (0.9 % Sodium Chloride Flush 3 Ml Syringe) 3 ml IVFLUSH QSHIFT [facility] Last Admin: 05/02/25 08:17 Dose: 3 ml Thiamine HCl (Thiamine Hcl 100 Mg Tablet) 100 mg PO DAILY [facility] Last Admin: 05/02/25 08:16 Dose: 100 mg Trazodone HCl (Trazodone Hcl 50 Mg Tablet) 150 mg PO BEDTIME [facility] Last Admin: 05/01/25 20:40 Dose: 150 mg Allergies Allergies Allergy/AdvReac Type Severity Reaction Status Date / Time ibuprofen AdvReac Stomach Verified 04/30/25 21:31 Upset morphine AdvReac Gastrointestinal Verified 04/30/25 21:31 Upset bees Allergy Severe Anaphylaxis Uncoded 04/23/25 15:42 Assessment & Plan Assessment & Plan (1) Alcohol use disorder: Status: Acute Code(s): F10.90 - Alcohol use, unspecified, uncomplicated Assessment and Plan: phenobarbital taper in place--withdrawal sx well managed patient verbalized desire for admission to [facility] following discharge from [facility]--collision estimator to follow up and collaborate with patient to facilitate referral and admission process taper current opiate regimen prior to d/c. Patient encouraged to discuss opiate dependance with providers at treatment facility Total time managing care of this patient today __50__ minutes. PMFSH Past Medical History Medical History Alcohol use disorder Barbiturate abuse Cocaine use disorder Pancreatitis Elevated LFTs Alcohol use disorder Chronic pancreatitis Alcohol abuse Alcoholism Suicidal ideations Intentional overdose Chronic cough Chronic pancreatitis Cocaine use Alcohol abuse Obesity (BMI 30.0-34.9) Pancreatitis Back pain Alcohol use disorder, severe, dependence Gastritis Gastritis Endometriosis Constipation Anxiety Depression Bipolar disorder Suicidal behavior PTSD (post-traumatic stress disorder) Surgical History Surgical History History of ankle surgery Social History Social History Household Members: Spouse Housing: House Do you presently have visiting nurse or other home services: No Alcohol intake: current Alcohol intake frequency: 3 or more drinks per day Alcohol type: beer and hard liquor Comment: seizure pads Patient Tobacco Use Status: Former Tobacco user Tobacco use type: Cigarette Cigarette Packs Per Day: 0 Cigarettes Per Day: 0 Smoked in Last 30 Days: No e-Cigarette/Vaping Use: Never Used Patient Interested in Nicotine Replacement: No Patient Given Instructions on How to Stop Smoking: No Second Hand Smoke Exposure: No Use of substances other than those prescribed or required for medical reasons: No Substance Use Type: Crack/Cocaine Currently Displaying Signs/Symptoms of Drug Intoxication Withdrawal: No Have you been hit, kicked, punched, or otherwise hurt by someone within the past year? If so, by whom?: No Do you feel safe in your current relationship?: Yes Spiritual Healthcare Practices: none Advance Directives: Yes Advance Directives on File: Yes Advance Directives Date on File: 09/07/23 Do you have a plan to hurt others: No Plan Recently lost weight without trying: No Nutrition Risks: No Nutritional Risk Patient : No : No service: No Sexual orientation: Straight/Heterosexual
--- NOTE | 2025-05-02 15:14 | PC.NURSE ---
FEATHERER reported to nurse that patient used call doherty and was asking for something for anxiety. Upon grabbing PRN medication, patient appeared to be sleeping in bed, her eyes were closed with unlabored breathing.
--- NOTE | 2025-05-02 15:44 | MHC.CM.PN ---
PT REPORTS SHE LIVES WITH HER S/O AND IS INDEPENDENT WITH CARE SHE HAS NO DME OR SERVICES HCP ON FILE PCP: DILLON MCKEON DCP: HOME VIA PRIVATE TRANSPORT
--- NOTE | 2025-05-02 17:37 | MHC.RECOVRN ---
Addendum entered by Judy Quinones RN 05/02/25 17:41: Clarification: Pt was agreeable to calling [facility] ([facility]) for inpt treatment for AUD and completed a telephone pre-screening for potential admission. Original Note: Met with pt in 376 to offer continued support regarding alcohol use disorder. On approach pt is sitting in bed in no apparent distress. She denies withdrawal symptoms and states her pain is much more tolerable . Pt was agreeable to calling [facility] ([facility]) for inpt treatment indira completed a telephone prescreen. TARA for [facility] obtained and records to be faxed for review. [facility] instructed pt to call again once discharge plan is known so bed placement can be determined.
[2025-05-03] VITALS (7 sets, daily range): BP systolic 101–116; BP diastolic 54–82; PULSE 95–107; RESP 16–19; TEMP 36.6–37.3; O2SAT 91–99
--- NOTE | 2025-05-03 05:39 | PC.NURSE ---
Pt seen on bed alert and oriented, still c/o LUQ abd pain radiating to back, passing gas, Abd round large and firm, no BM since 2 days ago, + BS, CIWA - 2, SR on the , pt refused bed alarm, prefer to walk to the BR independently, meds tolerated.
[2025-05-03] MEDS: buPROPion HCl XL 300 MG TAB.ER.24H PO (08:05)
[2025-05-03] MEDS: Lipase/Prot/Amylase 12/38/60K CAPSULE.DR 3 CAP PO ×3 (08:06→15:31)
[2025-05-03] MEDS: 0.9 % Sodium Chloride Flush 3 ML SYRINGE IVFLUSH ×2 (08:06→15:32)
[2025-05-03] MEDS: PHENobarbital 15 MG TABLET PO ×2 (09:02→20:57)
--- NOTE | 2025-05-03 09:57 | MHC.RECOVRN ---
Records faxed to [facility] for admission review ACS team to follow-up regarding availability for admission
[2025-05-03 10:30] LABS: E. coli EAEC Not Detected (Not Detect.); E. coli EPEC Not Detected (Not Detect.); E. coli ETEC Not Detected (Not Detect.); E. coli STEC Not Detected (Not Detect.); Shigella sp./EIEC Not Detected (Not Detect.)
--- NOTE | 2025-05-03 15:41 | P.PNIM_ITS ---
Subjective Subjective Date of Service: 05/03/25 Interval History: diarrhea today Back pain persistent, but better overall patient has appetite and wishes to advance diet Review of Systems Review of Systems: Yes all other systems are reviewed and are negative Physical Exam 2 Exam: Exam: General: A&O x3, oriented to time place person and situation, comfortable, no pain Cardiac: S1, S2 auscultated with no S3/4, no MRG. Well perfused. Respiratory: Normal breath sounds auscultated throughout all lung zones, without wheezing, rales. Normal rate. GI/ : Minimal pain on palpation of the epigastrium on light and deep palpation, no hepatosplenomegaly, -ve ballottement, no jaundice or icterus, spider nevi MSK: Normal ambulation without pain at bony prominences or musculature Neurological: Normal neurological examination on overview, without obvious CN II-XII abnormalities. Vital Signs: Vital Signs: Last Vital Signs Temp 98.3 F 05/03/25 15:20 Pulse 107 H 05/03/25 15:20 Resp 19 05/03/25 15:20 BP 112/66 05/03/25 15:20 Pulse Ox 96 05/03/25 15:20 O2 Del Method Room Air 05/03/25 15:20 BMI result Body Mass Index 33.7 Objective Data Active Medications Acetaminophen (Acetaminophen 325 Mg Tablet) 650 mg PO Q6H PRN PRN Reason: Pain, Mild 1-3,fever,headache Albuterol/Ipratropium (Albuterol/Iprat 2.5/0.5mg 3 Ml Ampul.Neb) 3 ml INHALE Q4H PRN PRN Reason: Shortness of Breath/Wheezing Lipase/Protease/Amylase (Lipase/Prot/Amylase //60k Capsule.Dr) 3 cap PO TIDAC [facility] Last Admin: 05/03/25 15:31 Dose: 3 cap Documented By: RAMAN Aripiprazole (Aripiprazole 10 Mg Tablet) 10 mg PO BEDTIME [facility] Last Admin: 05/02/25 20:10 Dose: 10 mg Documented By: HERNAN Bupropion HCl (Bupropion Hcl Xl 300 Mg Tab.Er.24h) 300 mg PO DAILY [facility] Last Admin: 05/03/25 08:05 Dose: 300 mg Documented By: RAMAN Calcium Carbonate (Calcium Carbonate 750 Mg Tab.Chew) 750 mg PO Q4H PRN PRN Reason: Heartburn Doxepin HCl (Doxepin Hcl 25 Mg Capsule) 50 mg PO BEDTIME [facility] Last Admin: 05/02/25 20:09 Dose: 50 mg Documented By: HERNAN Enoxaparin Sodium (Enoxaparin Sodium 40 Mg/0.4 Ml Syringe) 40 mg SUBCUT Q24H [facility] Last Admin: 05/03/25 08:06 Dose: 40 mg Documented By: RAMAN Folic Acid (Folic Acid 1 Mg Tablet) 1 mg PO DAILY [facility] Last Admin: 05/03/25 08:06 Dose: 1 mg Documented By: RAMAN Gabapentin (Gabapentin 600 Mg Tablet) 600 mg PO TID [facility] Last Admin: 05/03/25 15:31 Dose: 600 mg Documented By: RAMAN Hydromorphone HCl (Hydromorphone Hcl 1 Mg/Ml Syringe) 1 mg IVPUSH Q3H PRN; Protocol PRN Reason: Pain, Severe (Pain Scale 7-10) Last Admin: 05/03/25 13:07 Dose: 1 mg Documented By: RAMAN Hydromorphone HCl (Hydromorphone Hcl 1 Mg/Ml Syringe) 0.5 mg IVPUSH Q3H PRN; Protocol PRN Reason: Pain, Moderate(Pain Scale 4-6) Ceftriaxone Sodium 1 gm/ (Sodium Chloride) 50 mls @ 100 mls/hr IV Q24H [facility] Last Infusion: 05/03/25 09:06 Dose: Infused Documented By: RAMAN Lorazepam (Lorazepam 1 Mg Tablet) 1 mg PO TID PRN PRN Reason: Anxiety Last Admin: 05/03/25 15:35 Dose: 1 mg Documented By: RAMAN Magnesium Hydroxide (Milk Of Magnesia 30 Ml Oral.Susp) 30 ml PO DAILY PRN PRN Reason: Constipation Melatonin (Melatonin 3 Mg Tablet) 6 mg PO BEDTIME PRN PRN Reason: Insomnia Metoclopramide HCl (Metoclopramide Hcl 10 Mg/2 Ml Vial) 10 mg IVPUSH Q6H PRN PRN Reason: Nausea and Vomiting Last Admin: 05/01/25 16:52 Dose: 10 mg Documented By: ARVIN Ondansetron HCl (Ondansetron Hcl 4 Mg/2 Ml Vial) 4 mg IVPUSH Q8H PRN PRN Reason: Nausea and Vomiting Last Admin: 05/01/25 01:05 Dose: 4 mg Documented By: CLAUDIO Pantoprazole Sodium (Pantoprazole Sodium 40 Mg/10 Ml Vial) 40 mg IVPUSH DAILY@0630 [facility] Last Admin: 05/03/25 06:00 Dose: 40 mg Documented By: HERNAN Pharmacy Consult (Consult Rx Etoh Phenob Im/Po) 1 each MISCELLANE ONCE PRN; Protocol PRN Reason: Consult order Phenobarbital (Phenobarbital 15 Mg Tablet) 15 mg PO BID [facility] Stop: 05/04/25 21:01 Last Admin: 05/03/25 09:02 Dose: 15 mg Documented By: RAMAN Phenobarbital (Phenobarbital 15 Mg Tablet) 15 mg PO DAILY [facility] Stop: 05/06/25 09:01 Phenobarbital Sodium (Phenobarbital Sodium 130 Mg/Ml Vial) 230 mg IM ONCE [facility] Last Admin: 05/01/25 01:15 Dose: 230 mg Documented By: DAVINA Polyethylene Glycol (Polyethylene Glycol 3350 17 Gm Powd.Pack) 17 gm PO DAILY PRN PRN Reason: Constipation Prazosin HCl (Prazosin Hcl 5 Mg Capsule) 5 mg PO BEDTIME [facility]; Protocol Last Admin: 05/02/25 20:09 Dose: 5 mg Documented By: HERNAN Senna (Sennosides 8.6 Mg Tablet) 17.2 mg PO BEDTIME [facility] Last Admin: 05/02/25 20:10 Dose: 17.2 mg Documented By: HERNAN Sodium Chloride (0.9 % Sodium Chloride Flush 3 Ml Syringe) 3 ml IVFLUSH [facility] Last Admin: 05/03/25 15:32 Dose: 3 ml Documented By: RAMAN Thiamine HCl (Thiamine Hcl 100 Mg Tablet) 100 mg PO DAILY [facility] Last Admin: 05/03/25 08:06 Dose: 100 mg Documented By: RAMAN Trazodone HCl (Trazodone Hcl 50 Mg Tablet) 150 mg PO BEDTIME [facility] Last Admin: 05/02/25 20:10 Dose: 150 mg Documented By: HERNAN Labs 05/02/25 08:08 05/02/25 08:08 Labs: Laboratory Results - last 24 hr 05/02/25 19:10 Stl C. cayetanensis PCR Not Detected Stool Rotavirus A PCR Not Detected Stl Adenov F 40/41 PCR Not Detected Stool Astrovirus (PCR) Not Detected Stool Campylobacter PCR Not Detected Stool Cryptosporidium PCR Not Detected Stl Sh Tox Pr E STEC PCR Not Detected Stool E coli O157 PCR Not applicable Stl Enterotoxigenic E PCR Not Detected Stool EPEC (PCR) Not Detected Stool EAEC (PCR) Not Detected Stl E. histolytica PCR Not Detected Stool Giardia Lamblia PCR Not Detected Stl P. shigelloides PCR Not Detected Stool Salmonella PCR Not Detected Stool Sapovirus (PCR) Not Detected Stl Shigella/EIEC PCR Not Detected St Y.enterocolitica PCR Not Detected Stool Vibrio (PCR) Not Detected Stl Vibrio cholerae PCR Not Detected Stl Norovirus GI/GII PCR Detected A Microbiology Microbiology Results: Microbiology 05/01/25 Unknown Urine Culture - Final Urine clean catch - Clean Catch Midstream Escherichia coli Assessment and Plan (1) PTSD (post-traumatic stress disorder): Status: Acute (2) Bipolar disorder: Status: Acute (3) Barbiturate abuse: Status: Acute (4) Cocaine use disorder: Status: Acute (5) Alcohol use disorder: Status: Acute (6) Chronic pancreatitis: Status: Acute (7) Pancreatitis: Status: Acute (8) Chronic abdominal pain: Status: Acute (9) Closed fracture of head of right fibula: Status: Acute Plan 44-year-old woman with severe alcohol use disorder complicated by 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 Acute on Chronic Alcohol-Induced Pancreatitis Recent MRCP (04/01/25) confirms chronic pancreatitis with pancreatic ductal dilation and intraductal stones, without evidence of acute inflammation. Current admission marked by epigastric pain consistent with prior flares despite normal lipase and no peritoneal signs; imaging deferred given extensive prior CT exposure. Plan: * Advance diet to regular diet * Pain control with IV hydromorphone PRN; reassess daily for transition to oral regimen and minimize escalation. * Antiemetics PRN (ondansetron, metoclopramide). * Resume pancreatic enzyme replacement (Creon) once tolerating PO. * No additional abdominal imaging unless clinical deterioration. Alcohol Use Disorder with History of Withdrawal Seizures Active alcohol use prior to arrival with elevated ethanol level; history significant for withdrawal-related seizures. Currently managed with phenobarbital protocol; no objective seizure activity on admission. Plan: * Continue phenobarbital-based withdrawal protocol with CIWA monitoring. * Seizure precautions in place. * Thiamine, folic acid, and multivitamin daily. * Avoid benzodiazepine escalation unless clinically indicated. * Addiction Medicine consult for inpatient counseling and disposition planning. * Reinforce alcohol cessation given recurrent pancreatitis and frequent hospitalizations. Abdominal Pain / Opioid Dependence Risk Pain disproportionate to objective findings with frequent opioid requests; ketamine trial ineffective in ED. Plan: * Use lowest effective opioid dose with clear reassessment parameters. * Encourage multimodal pain control (acetaminophen if tolerated, gabapentin continuation). * Avoid NSAIDs given gastritis history and intolerance. * Discuss expectations around pain control and risks of chronic opioid use. * Plan discussed with Addiction medicine - patient to be transferred to inpatient rehab on discharge Gastritis / GERD Alcohol-related gastritis contributing to epigastric pain and nausea; no evidence of active GI bleeding. Plan: * Continue IV pantoprazole while NPO; convert to oral once diet resumed. * Monitor for melena, hematemesis, or drop in hemoglobin. Diarrhea / positive Norovirus Reports yellow, mucus-containing stools; recent antibiotic exposure raises concern for infectious etiology, though currently afebrile without leukocytosis. Plan: * Maintain hydration. * Reassess need for isolation based on results. * Contact precautions placed Recent UTI (E. coli) ? Status Post Incomplete Treatment Recently informed of positive urine culture; currently asymptomatic. Plan: * Repeat urinalysis pending. * No empiric antibiotics unless symptoms or abnormal UA develop. Psychiatric Comorbidities (Bipolar Disorder, Anxiety, PTSD, Depression) Psychiatric history significant but no active SI/HI; emotionally distressed regarding alcohol dependence. Plan: * Continue home psychiatric medications as reconciled. * Monitor mood and safety during hospitalization. * Consider Psychiatry consult if mood destabilization or safety concerns arise. Substance Use History (Cocaine) History of cocaine use; denies recent use. Plan: * Urine drug screen pending. 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 Tobacco Exposure Secondhand smoke exposure; patient declined nicotine replacement. Plan: * Re-offer cessation support if patient amenable. * PRN bronchodilators as ordered. --------- [employer] * VTE Prophylaxis:?Enoxaparin 40 mg daily * Code Status:?Full Code * Diet:?NPO --> clear liquid diet --> now Regular diet * Pain Reassessment:?Daily * Disposition Planning:?Addiction Medicine involvement ongoing Total time managing care of this patient today: 45 minutes. Quality Stroke Does the patient have a stroke diagnosis?: No Reason for No Anti-thrombotic by Day Two: N/A - Med Ordered VTE Prior VTE?: No VTE Risk Level:: Medical - moderate - high VTE Device Contraindication: N/A - Device Ordered VTE Drug Contraindication: N/A - Med Ordered
[2025-05-03] MEDS: Milk of Magnesia 30 ML ORAL.SUSP PO (16:05)
[2025-05-04] VITALS (7 sets, daily range): BP systolic 95–119; BP diastolic 54–70; PULSE 82–105; RESP 18–20; TEMP 36.1–37.2; O2SAT 93–99
[2025-05-04] MEDS: 0.9 % Sodium Chloride Flush 3 ML SYRINGE IVFLUSH ×4 (01:16→23:18)
[2025-05-04] MEDS: PHENobarbital 15 MG TABLET PO ×2 (07:37→21:48)
[2025-05-04] MEDS: Lipase/Prot/Amylase 12/38/60K CAPSULE.DR 3 CAP PO ×3 (07:38→15:22)
[2025-05-04] MEDS: buPROPion HCl XL 300 MG TAB.ER.24H PO (07:38)
--- NOTE | 2025-05-04 13:47 | HO.PM.IMPN ---
Subjective Subjective Date of Service: 05/04/25 Interval History: No new issues or complaints The patient has some persistent back pain - c worse with movement Able to tolerate regular diet Review of Systems Review of Systems: Yes all other systems are reviewed and are negative Physical Exam Exam: Exam: General: A&O x3, oriented to time place person and situation, comfortable, no pain Cardiac: S1, S2 auscultated with no S3/4, no MRG. Well perfused. Respiratory: Normal breath sounds auscultated throughout all lung zones, without wheezing, rales. Normal rate. GI/ : Minimal pain on palpation of the epigastrium on light and deep palpation, no hepatosplenomegaly, -ve ballottement, no jaundice or icterus, spider nevi MSK: Normal ambulation without pain at bony prominences or musculature. Reproducible pain around the left flank with palpation to the left lateral aspect of the lower thoracic spine; palpation of the parathoracic spine support musculature Neurological: Normal neurological examination on overview, without obvious CN II-XII abnormalities. Vital Signs: Vital Signs: Last Vital Signs Temp 98.0 F 05/04/25 12:14 Pulse 105 H 05/04/25 12:14 Resp 20 05/04/25 12:14 BP 105/67 05/04/25 12:14 Pulse Ox 93 05/04/25 12:14 O2 Del Method Room Air 05/04/25 12:14 BMI result Body Mass Index 33.7 Objective Data Active Medications Acetaminophen (Acetaminophen 325 Mg Tablet) 325 mg PO Q8H [facility] Last Admin: 05/04/25 11:56 Dose: 325 mg Documented By: BRITANY Albuterol/Ipratropium (Albuterol/Iprat 2.5/0.5mg 3 Ml Ampul.Neb) 3 ml INHALE Q4H PRN PRN Reason: Shortness of Breath/Wheezing Lipase/Protease/Amylase (Lipase/Prot/Amylase 12//60k Capsule.) 3 cap PO TIDAC [facility] Last Admin: 05/04/25 11:55 Dose: 3 cap Documented By: BRITANY Aripiprazole (Aripiprazole 10 Mg Tablet) 10 mg PO BEDTIME [facility] Last Admin: 05/03/25 20:57 Dose: 10 mg Documented By: SHILA Bupropion HCl (Bupropion Hcl Xl 300 Mg Tab.Er.24h) 300 mg PO DAILY [facility] Last Admin: 05/04/25 07:38 Dose: 300 mg Documented By: BRITANY Calcium Carbonate (Calcium Carbonate 750 Mg Tab.Chew) 750 mg PO Q4H PRN PRN Reason: Heartburn Last Admin: 05/03/25 16:02 Dose: 750 mg Documented By: RAMAN Cyclobenzaprine HCl (Cyclobenzaprine Hcl 5 Mg Tablet) 5 mg PO TID [facility] Doxepin HCl (Doxepin Hcl 25 Mg Capsule) 50 mg PO BEDTIME [facility] Last Admin: 05/03/25 20:56 Dose: 50 mg Documented By: SHILA Enoxaparin Sodium (Enoxaparin Sodium 40 Mg/0.4 Ml Syringe) 40 mg SUBCUT Q24H [facility] Last Admin: 05/04/25 07:38 Dose: 40 mg Documented By: BRITANY Folic Acid (Folic Acid 1 Mg Tablet) 1 mg PO DAILY [facility] Last Admin: 05/04/25 07:37 Dose: 1 mg Documented By: BRITANY Gabapentin (Gabapentin 600 Mg Tablet) 600 mg PO TID [facility] Last Admin: 05/04/25 07:38 Dose: 600 mg Documented By: BRITANY Hydromorphone HCl (Hydromorphone Hcl 1 Mg/Ml Syringe) 1 mg IVPUSH Q3H PRN; Protocol PRN Reason: Pain, Severe (Pain Scale 7-10) Last Admin: 05/04/25 11:55 Dose: 1 mg Documented By: BRITANY Hydromorphone HCl (Hydromorphone Hcl 1 Mg/Ml Syringe) 0.5 mg IVPUSH Q3H PRN; Protocol PRN Reason: Pain, Moderate(Pain Scale 4-6) Ceftriaxone Sodium 1 gm/ (Sodium Chloride) 50 mls @ 100 mls/hr IV Q24H [facility] Last Infusion: 05/04/25 08:16 Dose: Infused Documented By: BRITANY Ibuprofen (Ibuprofen 400 Mg Tablet) 400 mg PO Q8H [facility] Last Admin: 05/04/25 11:54 Dose: 400 mg Documented By: BRITANY Lidocaine (Lidocaine 4 % Patch Adh..Patch) 1 patch TRANSDERMA DAILY [facility]; Protocol Last Admin: 05/04/25 11:59 Dose: Not Given Documented By: BRITANY Non-Admin Reason: Patient Refused Lorazepam (Lorazepam 1 Mg Tablet) 1 mg PO TID PRN PRN Reason: Anxiety Last Admin: 05/04/25 07:44 Dose: 1 mg Documented By: BRITANY Magnesium Hydroxide (Milk Of Magnesia 30 Ml Oral.Susp) 30 ml PO DAILY PRN PRN Reason: Constipation Last Admin: 05/03/25 16:05 Dose: 30 ml Documented By: RAMAN Melatonin (Melatonin 3 Mg Tablet) 6 mg PO BEDTIME PRN PRN Reason: Insomnia Metoclopramide HCl (Metoclopramide Hcl 10 Mg/2 Ml Vial) 10 mg IVPUSH Q6H PRN PRN Reason: Nausea and Vomiting Last Admin: 05/01/25 16:52 Dose: 10 mg Documented By: ARVIN Omeprazole (Omeprazole 40 Mg Capsule.Dr) 40 mg PO DAILY@0630 [facility] Last Admin: 05/04/25 11:55 Dose: 40 mg Documented By: BRITANY Ondansetron HCl (Ondansetron Hcl 4 Mg/2 Ml Vial) 4 mg IVPUSH Q8H PRN PRN Reason: Nausea and Vomiting Last Admin: 05/01/25 01:05 Dose: 4 mg Documented By: CLAUDIO Pharmacy Consult (Consult Rx Etoh Phenob Im/Po) 1 each MISCELLANE ONCE PRN; Protocol PRN Reason: Consult order Phenobarbital (Phenobarbital 15 Mg Tablet) 15 mg PO BID [facility] Stop: 05/04/25 21:01 Last Admin: 05/04/25 07:37 Dose: 15 mg Documented By: BRITANY Phenobarbital (Phenobarbital 15 Mg Tablet) 15 mg PO DAILY [facility] Stop: 05/06/25 09:01 Phenobarbital Sodium (Phenobarbital Sodium 130 Mg/Ml Vial) 230 mg IM ONCE [facility] Last Admin: 05/01/25 01:15 Dose: 230 mg Documented By: DAVINA Polyethylene Glycol (Polyethylene Glycol 3350 17 Gm Powd.Pack) 17 gm PO DAILY PRN PRN Reason: Constipation Prazosin HCl (Prazosin Hcl 5 Mg Capsule) 5 mg PO BEDTIME [facility]; Protocol Last Admin: 05/03/25 20:57 Dose: 5 mg Documented By: SHILA Senna (Sennosides 8.6 Mg Tablet) 17.2 mg PO BEDTIME [facility] Last Admin: 05/03/25 20:57 Dose: Not Given Documented By: SHILA Non-Admin Reason: Patient Refused Simethicone (Simethicone 80 Mg Tab.Chew) 80 mg PO QIDWMHS PRN PRN Reason: Gas Last Admin: 05/03/25 22:46 Dose: 80 mg Documented By: SHILA Sodium Chloride (0.9 % Sodium Chloride Flush 3 Ml Syringe) 3 ml IVFLUSH QSHIFT [facility] Last Admin: 05/04/25 07:40 Dose: 3 ml Documented By: BRITANY Thiamine HCl (Thiamine Hcl 100 Mg Tablet) 100 mg PO DAILY [facility] Last Admin: 05/04/25 07:38 Dose: 100 mg Documented By: BRITANY Trazodone HCl (Trazodone Hcl 50 Mg Tablet) 150 mg PO BEDTIME [facility] Last Admin: 05/03/25 20:57 Dose: 150 mg Documented By: SHILA Labs 05/02/25 08:08 05/02/25 08:08 Microbiology Microbiology Results: Microbiology 05/01/25 Unknown Urine Culture - Final Urine clean catch - Clean Catch Midstream Escherichia coli Assessment and Plan (1) PTSD (post-traumatic stress disorder): Status: Acute (2) Bipolar disorder: Status: Acute (3) Barbiturate abuse: Status: Acute (4) Cocaine use disorder: Status: Acute (5) Alcohol use disorder: Status: Acute (6) Chronic pancreatitis: Status: Acute (7) Pancreatitis: Status: Acute (8) Chronic abdominal pain: Status: Acute (9) Closed fracture of head of right fibula: Status: Acute (10) Muscle spasm: Status: Acute Plan 44-year-old woman with severe alcohol use disorder complicated by recurrent alcohol?induced chronic pancreatitis, prior alcohol?withdrawal seizures, polysubstance use, and psychiatric comorbidities, presenting with [id number] epigastric abdominal pain after recent alcohol intake, admitted for pain control and management of alcohol withdrawal risk; course notable for normal lipase, stable labs, ongoing IV opioid requirement, and phenobarbital-based withdrawal protocol. Acute on Chronic Alcohol-Induced Pancreatitis Recent MRCP (04/01/25) confirms chronic pancreatitis with pancreatic ductal dilation and intraductal stones, without evidence of acute inflammation. Current admission marked by epigastric pain consistent with prior flares despite normal lipase and no peritoneal signs; imaging deferred given extensive prior CT exposure. Plan: Advance diet to regular diet Pain control with IV hydromorphone PRN; reassess daily for transition to oral regimen and minimize escalation. Antiemetics PRN (ondansetron, metoclopramide). Resume pancreatic enzyme replacement (Creon) once tolerating PO. No additional abdominal imaging unless clinical deterioration. Alcohol Use Disorder with History of Withdrawal Seizures Active alcohol use prior to arrival with elevated ethanol level; history significant for withdrawal-related seizures. Currently managed with phenobarbital protocol; no objective seizure activity on admission. Plan: Continue phenobarbital-based withdrawal protocol with CIWA monitoring. Seizure precautions in place. Thiamine, folic acid, and multivitamin daily. Avoid benzodiazepine escalation unless clinically indicated. Addiction Medicine consult for inpatient counseling and disposition planning. Reinforce alcohol cessation given recurrent pancreatitis and frequent hospitalizations. Abdominal Pain / Opioid Dependence Risk Pain disproportionate to objective findings with frequent opioid requests; ketamine trial ineffective in ED. Plan: Use lowest effective opioid dose with clear reassessment parameters. Encourage multimodal pain control (acetaminophen if tolerated, gabapentin continuation). Avoid NSAIDs given gastritis history and intolerance. Discuss expectations around pain control and risks of chronic opioid use. Plan discussed with Addiction medicine - patient to be transferred to inpatient rehab on discharge Muscle spasm Suffering with muscle spasm of the left lower thoracic paraspinal musculature. Plan: Flexeril 5 mg t.i.d. scheduled Ibuprofen 400 mg t.i.d. scheduled Acetaminophen 350 mg t.i.d. scheduled Lidocaine patch 4% Heat and ice Gastritis / GERD Alcohol-related gastritis contributing to epigastric pain and nausea; no evidence of active GI bleeding. Plan: Continue IV pantoprazole while NPO; convert to oral once diet resumed. Monitor for melena, hematemesis, or drop in hemoglobin. Diarrhea / positive Norovirus Reports yellow, mucus-containing stools; recent antibiotic exposure raises concern for infectious etiology, though currently afebrile without leukocytosis. Plan: Maintain hydration. Reassess need for isolation based on results. Contact precautions placed Recent UTI (E. coli) ? Status Post Incomplete Treatment Recently informed of positive urine culture; currently asymptomatic. Plan: Repeat urinalysis pending. No empiric antibiotics unless symptoms or abnormal UA develop. Psychiatric Comorbidities (Bipolar Disorder, Anxiety, PTSD, Depression) Psychiatric history significant but no active SI/HI; emotionally distressed regarding alcohol dependence. Plan: Continue home psychiatric medications as reconciled. Monitor mood and safety during hospitalization. Consider Psychiatry consult if mood destabilization or safety concerns arise. Substance Use History (Cocaine) History of cocaine use; denies recent use. Plan: Urine drug screen pending. 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 Tobacco Exposure Secondhand smoke exposure; patient declined nicotine replacement. Plan: Re-offer cessation support if patient amenable. PRN bronchodilators as ordered. [employer] VTE Prophylaxis:?Enoxaparin 40 mg daily Code Status:?Full Code Diet:?NPO --> clear liquid diet --> now Regular diet Pain Reassessment:?Daily Disposition Planning:?Addiction Medicine involvement ongoing Quality Stroke Does the patient have a stroke diagnosis?: No Reason for No Anti-thrombotic by Day Two: N/A - Med Ordered VTE Prior VTE?: No VTE Risk Level:: Medical - moderate - high VTE Device Contraindication: N/A - Device Ordered VTE Drug Contraindication: N/A - Med Ordered
[2025-05-05 03:18] VITALS: BP 121/63; PULSE 86; RESP 18; TEMP 36.3; O2SAT 96
[2025-05-05 06:46] VITALS: BP 120/66; PULSE 95; RESP 17; TEMP 36.6; O2SAT 94
[2025-05-05] MEDS: 0.9 % Sodium Chloride Flush 3 ML SYRINGE IVFLUSH ×3 (08:44→22:26)
[2025-05-05] MEDS: PHENobarbital 15 MG TABLET PO (08:47)
[2025-05-05] MEDS: buPROPion HCl XL 300 MG TAB.ER.24H PO (08:48)
[2025-05-05] MEDS: Lipase/Prot/Amylase 12/38/60K CAPSULE.DR 3 CAP PO ×3 (08:52→15:55)
[2025-05-05 11:23] VITALS: BP 99/57; PULSE 77; RESP 16; TEMP 36.1; O2SAT 92
--- NOTE | 2025-05-05 13:58 | HO.ADDICTPRO ---
Subjective Subjective Date of Service: 05/05/25 Reason For Visit: ETOH use, adb pain Interim History: Patient seen in follow up for AUD and pancreatitis +Norovirus 05/02 Stating that she has decided to defer her admission to [facility] for various reasons --laundry, norovirus, and she has not shared with her Alcohol withdrawal sx have resolved. Back on regular diet. Patient appearing uncomfortable, stating she is having back pain--inquiring about pain medications Chart review shows she has been receiving Dilaudid 1mg Q3H since admission. Current pain complaints do not appear to align with pancreatitis--concern that there is some component of opiate withdrawal Review of Systems Acute medical concerns: Yes Review of Systems Constitutional: Reports as per HPI Mental Status Exam Mental Status Exam Level of Consciousness: Awake and Appropriate Patient Behavior: Appropriate and Restless Affect Description: Anxious Speech Pattern: Clear Thought Process: Intact Thought Content: positive for Intact and positive for [place] Judgement: Fair Diagnostics Vital Signs (24Hr): Vital Signs - 24 hr 05/04/25 16:25 05/04/25 20:00 05/04/25 21:49 Temperature 97.3 F 97.0 F Pulse Rate 82 97 Respiratory Rate 18 18 Blood Pressure 95/54 L 119/70 119/70 Pulse Oximetry 93 95 Oxygen Delivery Method Room Air Room Air 05/04/25 23:42 05/05/25 03:18 05/05/25 06:46 Temperature 97.4 F 97.3 F 98 F Pulse Rate 89 86 95 Respiratory Rate 18 18 17 Blood Pressure 113/61 121/63 120/66 Pulse Oximetry 97 96 94 Oxygen Delivery Method Room Air Room Air Room Air 05/05/25 11:23 Temperature 97 F Pulse Rate 77 Respiratory Rate 16 Blood Pressure 99/57 L Pulse Oximetry 92 Oxygen Delivery Method Room Air BMI result Body Mass Index 33.7 Labs 05/02/25 08:08 05/02/25 08:08 Medications Medications Current Medications Acetaminophen (Acetaminophen 325 Mg Tablet) 325 mg PO Q8H [facility] Last Admin: 05/05/25 11:04 Dose: 325 mg Albuterol/Ipratropium (Albuterol/Iprat 2.5/0.5mg 3 Ml Ampul.Neb) 3 ml INHALE Q4H PRN PRN Reason: Shortness of Breath/Wheezing Lipase/Protease/Amylase (Lipase/Prot/Amylase /60k Capsule.) 3 cap PO TIDAC [facility] Last Admin: 05/05/25 11:03 Dose: 3 cap Aripiprazole (Aripiprazole 10 Mg Tablet) 10 mg PO BEDTIME [facility] Last Admin: 05/04/25 21:49 Dose: 10 mg Bupropion HCl (Bupropion Hcl Xl 300 Mg Tab.Er.24h) 300 mg PO DAILY [facility] Last Admin: 05/05/25 08:48 Dose: 300 mg Calcium Carbonate (Calcium Carbonate 750 Mg Tab.Chew) 750 mg PO Q4H PRN PRN Reason: Heartburn Last Admin: 05/03/25 16:02 Dose: 750 mg Cyclobenzaprine HCl (Cyclobenzaprine Hcl 10 Mg Tablet) 10 mg PO TID [facility] Doxepin HCl (Doxepin Hcl 25 Mg Capsule) 50 mg PO BEDTIME [facility] Last Admin: 05/04/25 21:45 Dose: 50 mg Enoxaparin Sodium (Enoxaparin Sodium 40 Mg/0.4 Ml Syringe) 40 mg SUBCUT Q24H [facility] Last Admin: 05/05/25 08:48 Dose: 40 mg Folic Acid (Folic Acid 1 Mg Tablet) 1 mg PO DAILY [facility] Last Admin: 05/05/25 08:48 Dose: 1 mg Gabapentin (Gabapentin 600 Mg Tablet) 600 mg PO TID [facility] Last Admin: 05/05/25 08:47 Dose: 600 mg Ibuprofen (Ibuprofen 400 Mg Tablet) 400 mg PO Q8H [facility] Last Admin: 05/05/25 11:03 Dose: 400 mg Lidocaine (Lidocaine 4 % Patch Adh..Patch) 1 patch TRANSDERMA DAILY [facility]; Protocol Last Admin: 05/05/25 09:06 Dose: Not Given Lorazepam (Lorazepam 1 Mg Tablet) 1 mg PO TID PRN PRN Reason: Anxiety Last Admin: 05/05/25 08:48 Dose: 1 mg Magnesium Hydroxide (Milk Of Magnesia 30 Ml Oral.Susp) 30 ml PO DAILY PRN PRN Reason: Constipation Last Admin: 05/03/25 16:05 Dose: 30 ml Melatonin (Melatonin 3 Mg Tablet) 6 mg PO BEDTIME PRN PRN Reason: Insomnia Metoclopramide HCl (Metoclopramide Hcl 10 Mg/2 Ml Vial) 10 mg IVPUSH Q6H PRN PRN Reason: Nausea and Vomiting Last Admin: 05/01/25 16:52 Dose: 10 mg Omeprazole (Omeprazole 40 Mg Capsule.Dr) 40 mg PO DAILY@0630 [facility] Last Admin: 05/05/25 05:30 Dose: 40 mg Ondansetron HCl (Ondansetron Hcl 4 Mg/2 Ml Vial) 4 mg IVPUSH Q8H PRN PRN Reason: Nausea and Vomiting Last Admin: 05/01/25 01:05 Dose: 4 mg Oxycodone HCl (Oxycodone Hcl Immed Release 5 Mg Tablet) 5 mg PO Q4H PRN PRN Reason: Pain, Severe (Pain Scale 7-10) Pharmacy Consult (Consult Rx Etoh Phenob Im/Po) 1 each MISCELLANE ONCE PRN; Protocol PRN Reason: Consult order Phenobarbital (Phenobarbital 15 Mg Tablet) 15 mg PO DAILY [facility] Stop: 05/06/25 09:01 Last Admin: 05/05/25 08:47 Dose: 15 mg Phenobarbital Sodium (Phenobarbital Sodium 130 Mg/Ml Vial) 230 mg IM ONCE [facility] Last Admin: 05/01/25 01:15 Dose: 230 mg Polyethylene Glycol (Polyethylene Glycol 3350 17 Gm Powd.Pack) 17 gm PO DAILY PRN PRN Reason: Constipation Prazosin HCl (Prazosin Hcl 5 Mg Capsule) 5 mg PO BEDTIME [facility]; Protocol Last Admin: 05/04/25 21:49 Dose: 5 mg Senna (Sennosides 8.6 Mg Tablet) 17.2 mg PO BEDTIME [facility] Last Admin: 05/04/25 21:48 Dose: 17.2 mg Simethicone (Simethicone 80 Mg Tab.Chew) 80 mg PO QIDWMHS PRN PRN Reason: Gas Last Admin: 05/03/25 22:46 Dose: 80 mg Sodium Chloride (0.9 % Sodium Chloride Flush 3 Ml Syringe) 3 ml IVFLUSH QSHIFT [facility] Last Admin: 05/05/25 08:44 Dose: 3 ml Thiamine HCl (Thiamine Hcl 100 Mg Tablet) 100 mg PO DAILY [facility] Last Admin: 05/05/25 08:47 Dose: 100 mg Trazodone HCl (Trazodone Hcl 50 Mg Tablet) 150 mg PO BEDTIME [facility] Last Admin: 05/04/25 21:46 Dose: 150 mg Allergies Allergies Allergy/AdvReac Type Severity Reaction Status Date / Time ibuprofen AdvReac Mild Stomach Verified 05/04/25 11:42 Upset morphine AdvReac Mild Gastrointestinal Verified 05/04/25 11:42 Upset bees Allergy Severe Anaphylaxis Uncoded 04/23/25 15:42 Assessment & Plan Assessment & Plan (1) Alcohol use disorder: Status: Acute Code(s): F10.90 - Alcohol use, unspecified, uncomplicated Assessment and Plan: withdrawal resolved concern regarding ongoing use of IV dilaudid. Requested change to oral opiates--monitor and titrate dose as necessary. Avoid IV if possible. encourage PRNs for anxiety and restlessness Ideally patient would start a taper plan for opiates to minimize discomfort. Declining admission for ongoing treatment of AUD (and likely opiate dependence). Total time managing care of this patient today _30___ minutes.
--- NOTE | 2025-05-05 14:10 | MHC.CM.PN ---
PER MD ROUNDS, PT EXPECTED TO DC TODAY PT NO LONGER INTERESTED IN GOING TO A PROGRAM FROM HERE SHE WILL DC HOME VIA [facility]
[2025-05-05] MEDS: oxyCODONE HCl Immed Release 5 MG TABLET PO ×3 (14:26→22:25)
[2025-05-05 15:56] VITALS: BP 107/65; PULSE 92; RESP 15; TEMP 36.4; O2SAT 92
--- NOTE | 2025-05-05 19:05 | P.PNIM_ITS ---
Subjective Subjective Date of Service: 05/05/25 Interval History: Patient back pain has significantly improved compared to yesterday with the use of 5 mg t.i.d. Flexeril Denies lumbago Patient reports That she no longer wishes to attend inpatient rehabilitation for her polysubstance abuse. Discussed with addiction Medicine specialist-recommendations greatly appreciated Plan to transition off IV opioids Review of Systems Review of Systems: Yes all other systems are reviewed and are negative Physical Exam 2 Exam: Exam: General: A&O x3, oriented to time place person and situation, comfortable, no pain Cardiac: S1, S2 auscultated with no S3/4, no MRG. Well perfused. Respiratory: Normal breath sounds auscultated throughout all lung zones, without wheezing, rales. Normal rate. GI/ : no pain on palpation of the epigastrium on light and deep palpation, no hepatosplenomegaly, -ve ballottement, no jaundice or icterus, spider nevi MSK: Normal ambulation without pain at bony prominences or musculature. Reproducible pain around the left flank with palpation to the left lateral aspect of the lower thoracic spine; palpation of the parathoracic spine support musculature Neurological: Normal neurological examination on overview, without obvious CN II-XII abnormalities. Vital Signs: Vital Signs: Last Vital Signs Temp 97.6 F 05/05/25 15:56 Pulse 92 05/05/25 15:56 Resp 15 05/05/25 15:56 BP 107/65 05/05/25 15:56 Pulse Ox 92 05/05/25 15:56 O2 Del Method Room Air 05/05/25 15:56 BMI result Body Mass Index 33.7 Objective Data Active Medications Acetaminophen (Acetaminophen 325 Mg Tablet) 325 mg PO Q8H [facility] Last Admin: 05/05/25 11:04 Dose: 325 mg Documented By: BRITANY Albuterol/Ipratropium (Albuterol/Iprat 2.5/0.5mg 3 Ml Ampul.Neb) 3 ml INHALE Q4H PRN PRN Reason: Shortness of Breath/Wheezing Lipase/Protease/Amylase (Lipase/Prot/Amylase 12/60k Capsule.) 3 cap PO TIDAC [facility] Last Admin: 05/05/25 15:55 Dose: 3 cap Documented By: BRITANY Aripiprazole (Aripiprazole 10 Mg Tablet) 10 mg PO BEDTIME [facility] Last Admin: 05/04/25 21:49 Dose: 10 mg Documented By: MAI Bupropion HCl (Bupropion Hcl Xl 300 Mg Tab.Er.24h) 300 mg PO DAILY [facility] Last Admin: 05/05/25 08:48 Dose: 300 mg Documented By: BRITANY Calcium Carbonate (Calcium Carbonate 750 Mg Tab.Chew) 750 mg PO Q4H PRN PRN Reason: Heartburn Last Admin: 05/03/25 16:02 Dose: 750 mg Documented By: RAMAN Cyclobenzaprine HCl (Cyclobenzaprine Hcl 10 Mg Tablet) 10 mg PO TID [facility] Last Admin: 05/05/25 14:27 Dose: 10 mg Documented By: BRITANY Doxepin HCl (Doxepin Hcl 25 Mg Capsule) 50 mg PO BEDTIME [facility] Last Admin: 05/04/25 21:45 Dose: 50 mg Documented By: MAI Enoxaparin Sodium (Enoxaparin Sodium 40 Mg/0.4 Ml Syringe) 40 mg SUBCUT Q24H [facility] Last Admin: 05/05/25 08:48 Dose: 40 mg Documented By: BRITANY Folic Acid (Folic Acid 1 Mg Tablet) 1 mg PO DAILY [facility] Last Admin: 05/05/25 08:48 Dose: 1 mg Documented By: BRITANY Gabapentin (Gabapentin 600 Mg Tablet) 600 mg PO TID [facility] Last Admin: 05/05/25 14:27 Dose: 600 mg Documented By: BRITANY Ibuprofen (Ibuprofen 400 Mg Tablet) 400 mg PO Q8H [facility] Last Admin: 05/05/25 11:03 Dose: 400 mg Documented By: BRITANY Lidocaine (Lidocaine 4 % Patch Adh..Patch) 1 patch TRANSDERMA DAILY [facility]; Protocol Last Admin: 05/05/25 09:06 Dose: Not Given Documented By: BRITANY Non-Admin Reason: Patient Refused Lorazepam (Lorazepam 1 Mg Tablet) 1 mg PO TID PRN PRN Reason: Anxiety Last Admin: 05/05/25 18:25 Dose: 1 mg Documented By: BRITANY Magnesium Hydroxide (Milk Of Magnesia 30 Ml Oral.Susp) 30 ml PO DAILY PRN PRN Reason: Constipation Last Admin: 05/03/25 16:05 Dose: 30 ml Documented By: RAMAN Melatonin (Melatonin 3 Mg Tablet) 6 mg PO BEDTIME PRN PRN Reason: Insomnia Metoclopramide HCl (Metoclopramide Hcl 10 Mg/2 Ml Vial) 10 mg IVPUSH Q6H PRN PRN Reason: Nausea and Vomiting Last Admin: 05/01/25 16:52 Dose: 10 mg Documented By: ARVIN Omeprazole (Omeprazole 40 Mg Capsule.Dr) 40 mg PO DAILY@0630 [facility] Last Admin: 05/05/25 05:30 Dose: 40 mg Documented By: MAI Ondansetron HCl (Ondansetron Hcl 4 Mg/2 Ml Vial) 4 mg IVPUSH Q8H PRN PRN Reason: Nausea and Vomiting Last Admin: 05/01/25 01:05 Dose: 4 mg Documented By: CLAUDIO Oxycodone HCl (Oxycodone Hcl Immed Release 5 Mg Tablet) 5 mg PO Q4H PRN PRN Reason: Pain, Severe (Pain Scale 7-10) Last Admin: 05/05/25 18:25 Dose: 5 mg Documented By: BRITANY Pharmacy Consult (Consult Rx Etoh Phenob Im/Po) 1 each MISCELLANE ONCE PRN; Protocol PRN Reason: Consult order Phenobarbital (Phenobarbital 15 Mg Tablet) 15 mg PO DAILY [facility] Stop: 05/06/25 09:01 Last Admin: 05/05/25 08:47 Dose: 15 mg Documented By: BRITANY Phenobarbital Sodium (Phenobarbital Sodium 130 Mg/Ml Vial) 230 mg IM ONCE [facility] Last Admin: 05/01/25 01:15 Dose: 230 mg Documented By: DAVINA Polyethylene Glycol (Polyethylene Glycol 3350 17 Gm Powd.Pack) 17 gm PO DAILY PRN PRN Reason: Constipation Prazosin HCl (Prazosin Hcl 5 Mg Capsule) 5 mg PO BEDTIME [facility]; Protocol Last Admin: 05/04/25 21:49 Dose: 5 mg Documented By: MAI Senna (Sennosides 8.6 Mg Tablet) 17.2 mg PO BEDTIME [facility] Last Admin: 05/04/25 21:48 Dose: 17.2 mg Documented By: MAI Simethicone (Simethicone 80 Mg Tab.Chew) 80 mg PO QIDWMHS PRN PRN Reason: Gas Last Admin: 05/03/25 22:46 Dose: 80 mg Documented By: SHILA Sodium Chloride (0.9 % Sodium Chloride Flush 3 Ml Syringe) 3 ml IVFLUSH QSHIFT [facility] Last Admin: 05/05/25 14:28 Dose: 3 ml Documented By: BRITANY Thiamine HCl (Thiamine Hcl 100 Mg Tablet) 100 mg PO DAILY [facility] Last Admin: 05/05/25 08:47 Dose: 100 mg Documented By: BRITANY Trazodone HCl (Trazodone Hcl 50 Mg Tablet) 150 mg PO BEDTIME [facility] Last Admin: 05/04/25 21:46 Dose: 150 mg [facility] 05/02/25 08:08 05/02/25 08:08 Assessment and Plan (1) PTSD (post-traumatic stress disorder): Status: Acute (2) Bipolar disorder: Status: Acute (3) Barbiturate abuse: Status: Acute (4) Cocaine use disorder: Status: Acute (5) Alcohol use disorder: Status: Acute (6) Chronic pancreatitis: Status: Acute (7) Pancreatitis: Status: Acute (8) Chronic abdominal pain: Status: Acute (9) Closed fracture of head of right fibula: Status: Acute Plan 44-year-old woman with severe alcohol use disorder complicated by 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 Acute on Chronic Alcohol?Induced Pancreatitis (clinically improved) Known chronic pancreatitis confirmed on MRCP (04/01/25) with ductal dilation and intraductal stones. This admission characterized by epigastric pain without biochemical or imaging evidence of acute pancreatitis. Pain now improved; tolerating regular diet. Plan: * Continue regular diet as tolerated. * Continue pancreatic enzyme replacement (Creon) with meals. * No further pancreatic imaging indicated. * Monitor abdominal exam and tolerance of PO intake. Alcohol Use Disorder with History of Withdrawal Seizures (withdrawal resolved) Presented after recent alcohol intake with high-risk history of withdrawal seizures. Completed phenobarbital-based withdrawal protocol without complications. Currently no autonomic instability or withdrawal symptoms. Plan: * Continue phenobarbital taper as scheduled through completion. * Discontinue CIWA monitoring. * Continue thiamine, folic acid, and multivitamin. * Addiction Medicine following; patient currently deferring inpatient rehab placement. * Continue motivational counseling and reassess readiness for treatment prior to discharge. Chronic Abdominal Pain / Opioid Dependence & Withdrawal Risk Pain complaints no longer consistent with pancreatitis. Prolonged IV hydromorphone use during admission with concern for opioid dependence and possible withdrawal contributing to current discomfort. Addiction Medicine recommends avoiding IV opioids. Plan: * Discontinue IV hydromorphone. * Transition to oral opioid regimen only if absolutely necessary; minimize dose and frequency. * Begin gradual opioid taper to limit withdrawal symptoms. * Reinforce non-opioid pain strategies and set expectations for pain management. * Close coordination with Addiction Medicine regarding discharge pain plan. Musculoskeletal Back Pain (Left Lower Thoracic Paraspinal Spasm) Reproducible paraspinal tenderness on exam, worse with movement, inconsistent with visceral pain; likely musculoskeletal in origin. Plan: * Cyclobenzaprine 10 mg TID scheduled. * Acetaminophen scheduled. * Ibuprofen scheduled?if tolerated?(monitor GI symptoms given history). * Lidocaine patch daily. * Heat and ice therapy. * Encourage ambulation and gentle stretching. Norovirus Gastroenteritis Stool studies positive for norovirus; diarrhea improving, patient afebrile and hemodynamically stable. Plan: * Supportive care only. * Maintain hydration and electrolyte balance. * Continue contact precautions. * Monitor stool frequency and volume. Gastritis / GERD Alcohol-related gastritis likely contributing to earlier epigastric symptoms; no evidence of active GI bleeding. Plan: * Continue oral PPI (omeprazole). * Monitor for GI bleeding symptoms. * Avoid NSAID escalation if GI intolerance develops. Psychiatric Comorbidities (Bipolar Disorder, PTSD, Anxiety, Depression) Chronic psychiatric disease without active SI/HI. Anxiety noted during hospitalization, possibly exacerbated by substance withdrawal and pain. Plan: * Continue home psychiatric medications. * PRN lorazepam for anxiety as ordered. * Monitor mood, judgment, and safety. * Psychiatry consult if decompensation occurs. Substance Use History ? Cocaine Remote history; no acute intoxication or complications this admission. Plan: * Continue counseling on substance abstinence. * No acute intervention required. Asymptomatic Bacteriuria (E. coli) Positive urine culture without urinary symptoms or systemic signs of infection. Plan: * No antibiotics indicated. * Monitor for development of urinary symptoms. --------- [employer] * VTE Prophylaxis:?Enoxaparin 40 mg daily * Code Status:?Full Code * Diet:?Regular * Pain Reassessment:?Daily with opioid taper monitoring * Infection Precautions:?Contact (Norovirus) * Disposition Planning:?Addiction Medicine following; patient currently declining inpatient rehab Total time managing care of this patient today: 45 minutes. Quality Stroke Does the patient have a stroke diagnosis?: No Reason for No Anti-thrombotic by Day Two: N/A - Med Ordered VTE Prior VTE?: No VTE Risk Level:: Medical - moderate - high VTE Device Contraindication: N/A - Device Ordered VTE Drug Contraindication: N/A - Med Ordered
[2025-05-05 20:00] VITALS: BP 112/62; PULSE 87; RESP 18; TEMP 36.4; O2SAT 98
[2025-05-05 22:26] VITALS: BP 148/66; PULSE 88
[2025-05-06] VITALS: BP 109/59; PULSE 83; RESP 18; TEMP 36.4; O2SAT 95
--- NOTE | 2025-05-06 06:53 | PC.NURSE ---
Patient voiced wanting to leave AMA. PA notified and came to bedside. Patient signed to leave AMA. Patient left AMA approximately at 00:46.
--- NOTE | 2025-05-06 07:09 | P.DS_ITS ---
DS: Providers Provider Date of admission: 05/01/25 00:26 Date of discharge: 05/06/25 Primary care physician: Anai Lane NP Consults: 05/01/25 00:30 Addiction Medicine Provider Routine Consulting Provider: Addiction Covering Reason for consultation: alcohol abuse, multiple admissions Has provider been notified: No DS: Diagnosis Discharge Diagnosis (1) PTSD (post-traumatic stress disorder): Status: Acute (2) Bipolar disorder: Status: Acute (3) Barbiturate abuse: Status: Acute (4) Cocaine use disorder: Status: Acute (5) Alcohol use disorder: Status: Acute (6) Chronic pancreatitis: Status: Acute (7) Pancreatitis: Status: Acute (8) Chronic abdominal pain: Status: Acute (9) Closed fracture of head of right fibula: Status: Acute DS: Summary Hospital Course Hospital Course: History and physical as per admitting provider. Patient is a 44-year-old female with PMH alcohol use disorder (binge drinking), tobacco use, cocaine use, anxiety depression, bipolar disorder, PTSD, seizures related to alcohol withdrawal, chronic pancreatitis on Creon, gastritis, hepatic steatosis presents to the ED BIBA for increasing abdominal pain and teeth clenching after using fireball earlier today. Patient thought she may have had a seizure. Pt a lso reporting yellow diarrhea with mucous. Pt was updated that after last visit to the ED 04/23, she had a UTI and was treated with ABX. Pt curently denies chest pain, shortness of breath at rest, headache, visual changes but is reporting abdominal pain 8/10 and nausea with earlier vomiting. Patient denies SI, HI or hallucinations. Patient is not having any dysphagia or reflux. Reviewed with patient multiple visits to the ED with multiple admissions for chronic pancreatitis secondary to alcohol use. Patient acknowledges that she is seeking pain meds and is also insightful to the fact that if she drinks alcohol or pain will be increased but has never considered pain management as part of her overall health care regimen. Patient understands and verbalizes that she has to stop using alcohol but finds that she can not stop. Patient states she did seek rehabilitation and was in a sober house for a period of time over this past summer and that did work but once she left and went home she continued to drink. Patient recently had an MRCP which does indicate findings of chronic pancreatitis. Patient is on Creon at home. Patient also feels she may have had a slight seizure but attributes only symptom of teeth clenching. Patient has had seizures associated with alcohol withdrawal in the past. ED provider decided against abdominal diagnostic studies as patient's LFTs are relatively lower than usual and patient has had frequent recent scans. Patient did have a chest x-ray which noted no consolidation, pneumothorax or pleural effusion. Patient has no current leukocytosis or anemia. Electrolytes are stable, renal function also within normal limits. Glucose 116. Magnesium 1.9. Patient did receive magnesium IV in the ED. Total bilirubin 1.2, AST 91, ALT 28, alk-phos 170. Lipase 9. Alcohol level 163. Patient being admitted for pain associated with chronic pancreatitis and alcohol use disorder. Patient left against medical advice overnight, this provider did not see the patient but completing the paperwork for the medical record. Current progress note from provider managing the patient: 44-year-old woman with severe alcohol use disorder complicated by recurrent alcohol?induced chronic pancreatitis, prior alcohol?withdrawal seizures, polysubstance use, chronic pain, and significant psychiatric comorbidities, admitted for [id number] abdominal pain and alcohol withdrawal after recent alcohol intake; hospital course notable for resolved withdrawal on phenobarbital taper, tolerance of regular diet, norovirus-associated diarrhea, evolving musculoskeletal back pain, and concern for opioid dependence/withdrawal physiology with transition off IV opioids. Acute on Chronic Alcohol?Induced Pancreatitis (clinically improved) Known chronic pancreatitis confirmed on MRCP (04/01/25) with ductal dilation and intraductal stones. This admission characterized by epigastric pain without biochemical or imaging evidence of acute pancreatitis. Pain now improved; tolerating regular diet. Plan: * Continue regular diet as tolerated. * Continue pancreatic enzyme replacement (Creon) with meals. * No further pancreatic imaging indicated. * Monitor abdominal exam and tolerance of PO intake. Alcohol Use Disorder with History of Withdrawal Seizures (withdrawal resolved) Presented after recent alcohol intake with high-risk history of withdrawal seizures. Completed phenobarbital-based withdrawal protocol without complications. Currently no autonomic instability or withdrawal symptoms. Plan: * Continue phenobarbital taper as scheduled through completion. * Discontinue CIWA monitoring. * Continue thiamine, folic acid, and multivitamin. * Addiction Medicine following; patient currently deferring inpatient rehab placement. * Continue motivational counseling and reassess readiness for treatment prior to discharge. Chronic Abdominal Pain / Opioid Dependence & Withdrawal Risk Pain complaints no longer consistent with pancreatitis. Prolonged IV hydromorphone use during admission with concern for opioid dependence and possible withdrawal contributing to current discomfort. Addiction Medicine recommends avoiding IV opioids. Plan: * Discontinue IV hydromorphone. * Transition to oral opioid regimen only if absolutely necessary; minimize dose and frequency. * Begin gradual opioid taper to limit withdrawal symptoms. * Reinforce non-opioid pain strategies and set expectations for pain management. * Close coordination with Addiction Medicine regarding discharge pain plan. Musculoskeletal Back Pain (Left Lower Thoracic Paraspinal Spasm) Reproducible paraspinal tenderness on exam, worse with movement, inconsistent with visceral pain; likely musculoskeletal in origin. Plan: * Cyclobenzaprine 10 mg TID scheduled. * Acetaminophen scheduled. * Ibuprofen scheduled?if tolerated?(monitor GI symptoms given history). * Lidocaine patch daily. * Heat and ice therapy. * Encourage ambulation and gentle stretching. Norovirus Gastroenteritis Stool studies positive for norovirus; diarrhea improving, patient afebrile and hemodynamically stable. Plan: * Supportive care only. * Maintain hydration and electrolyte balance. * Continue contact precautions. * Monitor stool frequency and volume. Gastritis / GERD Alcohol-related gastritis likely contributing to earlier epigastric symptoms; no evidence of active GI bleeding. Plan: * Continue oral PPI (omeprazole). * Monitor for GI bleeding symptoms. * Avoid NSAID escalation if GI intolerance develops. Psychiatric Comorbidities (Bipolar Disorder, PTSD, Anxiety, Depression) Chronic psychiatric disease without active SI/HI. Anxiety noted during hospitalization, possibly exacerbated by substance withdrawal and pain. Plan: * Continue home psychiatric medications. * PRN lorazepam for anxiety as ordered. * Monitor mood, judgment, and safety. * Psychiatry consult if decompensation occurs. Substance Use History ? Cocaine Remote history; no acute intoxication or complications this admission. Plan: * Continue counseling on substance abstinence. * No acute intervention required. Asymptomatic Bacteriuria (E. coli) Positive urine culture without urinary symptoms or systemic signs of infection. Plan: * No antibiotics indicated. * Monitor for development of urinary symptoms. --------- QUALITY [employer] * VTE Prophylaxis:?Enoxaparin 40 mg daily * Code Status:?Full Code * Diet:?Regular * Pain Reassessment:?Daily with opioid taper monitoring * Infection Precautions:?Contact (Norovirus) * Disposition Planning:?Addiction Medicine following; patient currently declining inpatient rehab Time Attestation Discharge Coordination Time (in mins): 20 Quality: Safe Use of Opioids Does Pt have an Active Cancer Diagnosis on the Problem List?: No Quality: Stroke Does the patient have a stroke diagnosis?: No Physical Exam Vital Signs: Vital Signs: Last Vital Signs Temp 97.5 F 05/06/25 00:00 Pulse 83 05/06/25 00:00 Resp 18 05/06/25 00:00 BP 109/59 L 05/06/25 00:00 Pulse Ox 95 05/06/25 00:00 O2 Del Method Room Air 05/06/25 00:00 BMI result Body Mass Index 33.7 DS: Data Data Completed and Pending Completed studies during hospitalization [Text1]: Procedures Detoxification Services for Substance Abuse Treatment (01/24/25) Discharge Plan Discharge Anticipated Discharge Date/Time: 05/06/25 07:07 Patient Disposition: Left Against Medical Advice Discharge Diagnosis: Acute on chronic pancreatitis, alcohol use disorder, chronic abdominal pain with opiate dependence and withdrawal risk Referrals: Anai Lane [facility] DUMPER [Primary Care Provider, Medical] - 1 Week Discharge Medications: No Action prazosin 5 mg Capsule 5 mg PO BEDTIME 30 Days Qty: 30 0RF doxepin 50 mg capsule 50 mg PO BEDTIME gabapentin 600 mg tablet 600 mg PO TID aripiprazole 10 mg tablet 10 mg PO BEDTIME lorazepam 1 mg tablet 1 mg PO TID PRN (Reason: Anxiety) pantoprazole 40 mg Tablet,Delayed Release (Dr/Ec) 40 mg PO DAILY@0630 trazodone 150 mg tablet 150 mg PO BEDTIME Creon 36,000-114,000- 180,000 unit capsule,delayed release(DR/EC) 1 cap PO TIDAC albuterol sulfate [Ventolin HFA] 90 mcg/actuation HFA aerosol inhaler 2 puff INHALATION Q4H PRN (Reason: Shortness Of Breath Or Wheezing) thiamine HCl (vitamin B1) 100 mg tablet 100 mg PO DAILY multivitamin Tablet 1 tab PO DAILY folic acid 1 mg tablet 1 mg PO DAILY bupropion HCl 300 mg tablet extended release 24 hr 300 mg PO DAILY Discharge Orders: Discharge Order (Routine); Ordered 05/06/25 Ordered By: Namrata Singh Print Language: Lebanese Care Plan Goals: Patient left overnight against medical advice, this provider did not see the patient Health Concerns: Acute on chronic alcohol induced pancreatitis Alcohol withdrawal seizure Plan of Treatment: Follow up with primary care provider as needed Take all medications as prescribed Assessment: See discharge summary
== END 2025-05-06 01:40 | disposition left against medical advice (07) | DRG 770 ==
LOC: HO.ED 21:46 → HO.EDOVER 05-01 00:52 → HO.IMC 05-01 07:38 → HO.S3 05-02 11:16
PROVIDERS: Hospitalist; Admitting Provider Nurse Practitioner Family; Emergency Provider Emergency Medicine; PCP Nurse Practitioner Adult Health; Visit Provider Student in an Organized Health Care Education/Training Program
DX: F10.239 Alcohol dependence with withdrawal, unspecified (principal); K85.20 Alcohol induced acute pancreatitis without necrosis or infection; A08.11 Acute gastroenteropathy due to Norwalk agent; K21.9 Gastro-esophageal reflux disease without esophagitis; F31.9 Bipolar disorder, unspecified; Y90.6 Blood alcohol level of 120-199 mg/100 ml; K29.20 Alcoholic gastritis without bleeding; K86.0 Alcohol-induced chronic pancreatitis; Z87.891 Personal history of nicotine dependence; Z79.899 Other long term (current) drug therapy
CPT/HCPCS: 36415; 71045; 80053; 80307; 81001; 83605; 83690; 83735; 84443; 85025; 85027; 85379; 87086; 87088; 87186; 87507; 99285; J0696; J1171; J1650; J2405; J2470; J2560; J2765; J3411; J3475; J7120; S9485

== ENCOUNTER → 2025-04-30 21:32 | Outpatient (BNV) | payer OTHER, SELFPAY | PROVIDERS: Emergency Provider Emergency Medicine; PCP Nurse Practitioner Adult Health; Visit Provider Radiology Neuroradiology | DX: R07.9 Chest pain, unspecified (principal); R11.10 Vomiting, unspecified | CPT/HCPCS: 71045 ==

== ENCOUNTER → 2025-05-01 00:26 | Outpatient (BNV) | payer OTHER, SELFPAY | PROVIDERS: Admitting Provider Nurse Practitioner Family; Emergency Provider Emergency Medicine; PCP Nurse Practitioner Adult Health; Visit Provider Nurse Practitioner Family | DX: F43.10 Post-traumatic stress disorder, unspecified (principal); F31.9 Bipolar disorder, unspecified; F13.10 Sedative, hypnotic or anxiolytic abuse, uncomplicated; F14.10 Cocaine abuse, uncomplicated; F10.90 Alcohol use, unspecified, uncomplicated; K86.0 Alcohol-induced chronic pancreatitis; K85.90 Acute pancreatitis without necrosis or infection, unspecified; R10.9 Unspecified abdominal pain; G89.29 Other chronic pain; S82.831A Other fracture of upper and lower end of right fibula, initial encounter for closed fracture | CPT/HCPCS: 99223; 99232; 99233 ==

== ENCOUNTER → 2025-05-01 00:26 | Outpatient (BNV) | payer OTHER, SELFPAY | PROVIDERS: Admitting Provider Nurse Practitioner Family; Emergency Provider Emergency Medicine; PCP Nurse Practitioner Adult Health; Visit Provider Nurse Practitioner Psychiatric/Mental Health | DX: F10.90 Alcohol use, unspecified, uncomplicated (principal) | CPT/HCPCS: 99222; 99232 ==